=== PATIENT | male | born 1960 | race Two or more races ===

== ENCOUNTER 2021-05-13 12:01 | Emergency (ER) | payer OTHER, SELFPAY ==
--- NOTE | ~2021-05-13 | CT_ITS ---
EXAMINATION: CTA CHEST PE STUDY CLINICAL INFORMATION: SOB COMPARISON: 05/28/2020 PET/CT scan. TECHNIQUE: Prior to contrast administration, noncontrast localization images were obtained. After the administration of 56 mL of Omnipaque 350 IV contrast, contiguous thin slice helical images were obtained through the thorax. Reformatted MIP images in the coronal and sagittal planes were obtained at the acquisition workstation. This CT examination was performed using dose optimization techniques as appropriate, variously including the following: *Automated exposure control *Adjustment of mA and/or kV according to patient size (this includes techniques or standardized protocols for targeted exams where dose is matched to indication/reason for exam; i.e. extremities or head) *Use of iterative reconstruction technique DLP: 208 mGy-cm. FINDINGS: The bolus timing on this study was acceptable for visualization of the pulmonary arterial tree. There are no intraluminal pulmonary arterial filling defects present to suggest pulmonary embolism. Linear scarring and/or posterior mid changes in the lateral aspect of the left upper lobe similar to the prior PET/CT scan. There is a calcified granuloma in the lateral aspect of the left lower lobe. Chronic appearing additional changes superimposed on centrilobular emphysema otherwise noted bilaterally. No significant hilar or mediastinal adenopathy. There is no evidence of pleural effusion or pneumothorax. The heart is normal in size. No evidence of ventricular septal bowing or right heart strain. Great vessels are normal. Otherwise the mediastinum is unremarkable. There is no pericardial effusion or pericardial thickening. Limited evaluation of the upper abdominal viscera demonstrates low-attenuation probable cysts in the bilateral kidneys. CT/CT angio chest PE protocol IMPRESSION: No evidence for central pulmonary emboli. Chronic appearing changes in the lung parenchyma overall similar to the 05/28/2020 PET/CT scan. VTE: Negative
--- NOTE | ~2021-05-13 | XR_ITS ---
EXAMINATION: XR CHEST CLINICAL INFORMATION: SOB. COMPARISON: Chest x-ray performed earlier at 12:11 PM. TECHNIQUE: Frontal view of the chest was obtained. FINDINGS: The lungs are somewhat expanded with linear scarring or atelectasis right lung base and left upper lobe. No consolidation seen. There is bilateral There is blunting of right CP angle from pleural thickening. Heart size and pulmonary vascularity is normal. No gross bony abnormality seen. XR/XR chest 1V IMPRESSION: Chronic scarring left upper lobe and right lower lobe. There is mild blunting of right CP angle from pleural thickening. No change from previous studies 05/13/2021 at 12:31 PM. There is no interval consolidation seen.
--- NOTE | ~2021-05-13 | XR_ITS ---
EXAMINATION: XR CHEST CLINICAL INFORMATION: Shortness of breath COMPARISON: Previous chest x-ray May [address] January 2014 TECHNIQUE: Frontal view of the chest was obtained. FINDINGS: The cardiac and mediastinal contours are stable. The lungs are well inflated. There is biapical pleural thickening, right greater than left. This appears increased on the right compared to September 2014 exam. There are increased peripheral interstitial markings seen in the left peripheral upper lung overlying the scapula border at the right lateral costophrenic angle appears unchanged and might may represent chronic scarring. There is a 3 x 7 mm nodule at the left lung base that appears unchanged. There increased markings seen in the right infrahilar region questionable for infiltrate. The lungs are otherwise clear. There is blunting at the right lateral costophrenic angle and pleural thickening at the right lung base that appears unchanged. There is no significant pleural effusion. There is no pneumothorax. Bony structures are unremarkable. XR/XR chest 1V IMPRESSION: Well-inflated lungs. Biapical pleural thickening, increased on the right. New increased attenuation in the right infrahilar region questionable for infiltrate. Stable increased linear markings in the left lateral upper lung and right lateral costophrenic angle probably representing scarring and stable right pleural thickening.
[2021-05-13 12:07] VITALS: BP 167/111; PULSE 95; RESP 18; TEMP 36.8; O2SAT 94; BMI 20.3
[2021-05-13 12:56] LABS: COVID-19 Test Negative (Negative)
--- NOTE | 2021-05-13 13:21 | ECG_ITS ---
Test Reason : DIFFICULTY BREATHING Blood Pressure : / mmHG Vent. 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
--- NOTE | 2021-05-13 13:45 | PC.NURSE ---
pt alert and oriented. pt complaining of sob, he has history of COPD and is a daily smoker. Pt states he ran out of his albuterol updraft and rescue inhaler about 3 days ago and has been feeling sob since. pt states the sob is worse with exertion. he also c/o increased cough. no c/o nausea, vomiting, diarrhea. no c/o chest pain. Patient states that the shortness of breath is worse with exertion. He is also complaining of increased coughing, no vomiting or diarrhea. pt's b/p running 146/104, pulse 88, O2 98% r/a. No respiratory distress/difficulty breathing noted. will continue to monitor.
--- NOTE | 2021-05-13 13:46 | ED_ITS ---
HPI - SOB/Dyspnea General Chief Complaint: Dyspnea Stated Complaint: difficulty breathing - hx copd Time Seen by Provider: 05/13/21 13:20 Source: patient Mode of arrival: ambulatory Limitations: no limitations History of Present Illness HPI Narrative: Patient comes emergency room complaining of shortness of breath. Patient states that he is known to have COPD, still smokes, not oxygen dependent. Patient ran out of his inhalers approximately 3 days ago. Patient denies chest pain. Patient states that the shortness of breath is worse with exertion. Patient complaining of increased coughing, no vomiting or diarrhea. Related Data Previous Rx's Medication Instructions Recorded albuterol sulfate 90 mcg/actuation 2 puff INHALATION Q4-6H PRN #6.7 g 05/13/21 aerosol inhaler budesonide-formoterol HFA 80 2 puff INHALATION BID #10.2 g 05/13/21 mcg-4.5 mcg/actuation aerosol inhaler (Symbicort) Allergies Allergy/AdvReac Type Severity Reaction Status Date / Time No Known Allergies Allergy Verified 05/13/21 12:07 [No Known Allergies*] Review of Systems Review of Systems: Constitutional : No Weight loss, No Fever, No Chills, No Night Sweats, No Fatigue, No Malaise ENT/Mouth : No Hearing loss, No Ear Pain, No Nasal Congestion, No Sinus Pain, No Hoarseness, No sore throat, No Rhinorrhea, No Swallowing Difficulty Eyes: No Eye Pain, No Swelling, No Redness, No Foreign Body, No Discharge, No Vision Changes Cardiovascular : No Chest Pain, complaining of exertional dyspnea, no orthopnea, no palpitations, no lower extremity edema Respiratory : Complaining of worsening cough, No Sputum, No Wheezing, comp laining of dyspnea worse with exertion Gastrointestinal : No Nausea, No Vomiting, No Diarrhea, No Constipation, No abdominal Pain, No Hematochezia, No Melena Genitourinary : no irregular bleeding, No Dysuria, No Urinary Frequency, No Hematuria, No Urinary Incontinence, No Urgency, No Flank Pain, No Urinary Flow Changes, No Hesitancy Musculoskeletal : No joint pain, No Myalgias, No Joint Swelling Skin : No Skin Lesions, No rash Neuro : No Weakness, No Numbness, No Paresthesias, No Loss of Consciousness, No Dizziness, No Headache Psych : No Anxiety/Panic, No Depression, No SI/HI/AH/VH, No Social Issues, Heme/Lymph: No Bruising, No Bleeding,No Lymphadenopathy Endocrine : No Polyuria, No Polydipsia, No Temperature Intolerance [facility] Past Medical History Medical History COPD (chronic obstructive pulmonary disease) Hepatitis C HIV disease Social History Social History Advance Directives: No Physical Exam Vital Signs: Vital Signs: Last Vital Signs Temp 98.1 F 05/13/21 16:43 Pulse 91 05/13/21 16:43 Resp 19 05/13/21 16:43 BP 163/109 H 05/13/21 16:43 Pulse Ox 97 05/13/21 16:43 Body Mass Index 20.3 Const: Other: Appearance: Alert. Oriented X3. No acute distress. Eyes: Pupils equal, round and reactive to light. ENT: Pharynx normal. Neck: Normal inspection. Neck supple. No lymph nodes noted. No crepitus CVS: Normal heart rate and rhythm. Pulses normal. Normal S1 and S2 Respiratory: No respiratory distress. Decreased air movement bilaterally, No Wheezing. No rales Abdomen: Soft and nontender. No rigidity. No distention. good BS x4 Skin: Skin warm and dry. Normal skin color. Normal skin turgor. Extremities: No lower extremity edema. No Lacerations. No Rash Neuro: Oriented X 3. No motor deficit. No sensory deficit. Moving all extermities. No slurred speech. Course Course Course Narrative: Patient's chest x-ray does not show significant edema, BNP is elevated, it may be chronic. Patient was ambulated in the emergency room, oxygen saturation remained at 97%. Prior to discharge, patient was concerned that whenever he walks up the stairs he feels short of breath. At this time, we will go ahead and do a CT for PE, if negative, patient will likely be discharged home. At this time, patient is not wheezing, has good air movement, oxygen saturation 97% on room air at rest as well per. CT a pending, sign-out given to Dr. Ford. If negative, patient likely to be discharged home. MDM - SOB/Dyspnea Lab Data Result diagrams: 05/13/21 14:03 05/13/21 14:03 Labs: Lab Results 05/13/21 05/13/21 05/13/21 Range/Units 12:17 14:03 14:03 WBC 5.8 (4.8-10.8) X10*3/uL RBC 5.09 (4.60-5.80) X10*6/uL Hgb 11.7 L (14.0-18.0) g/dl Hct 36.5 L (42-52) % MCV 71.7 L (80-98) fL MCH 23.0 L (27.0-33.0) pg MCHC 32.1 (31.0-36.0) g/dl RDW 15.9 (11.0-16.0) % Plt Count 173 (160-400) X10*3/uL MPV 9.2 L (9.4-12.4) fL Immature Gran % (Auto) 0.3 (0.0-0.4) % Neut % (Auto) 76.3 H (45-73) % Lymph % (Auto) 13.2 L (20-40) % [place] % (Auto) 8.9 (2-11) % Eos % (Auto) 1.0 (0-4) % Baso % (Auto) 0.3 (0-2) % Lymph # (Auto) 0.8 L (1.2-4.9) X10*3/uL [place] # (Auto) 0.5 (0.1-1.2) X10*3/uL Eos # (Auto) 0.1 (0.0-0.4) X10*3/uL Baso # (Auto) 0.0 (0.0-0.2) X10*3/uL Abs Immat Gran (auto) 0.02 (0.00-0.03) X10*3/uL Absolute Neuts (auto) 4.4 (2.0-8.3) X10*3/uL Absolute Nucleated RBC 0.020 H (0.0-0.012) X10*3/uL Nucleated RBC % (auto) 0.3 H (0.0-0.2) /100WBC Sodium 134 L (135-145) mmol/L Potassium 5.5 H (3.3-5.1) mmol/L Chloride 100 (96-108) mmol/L Carbon Dioxide 24 (22-29) mmol/L Anion Gap 16 (12-20) BUN 21 H (9-16) mg/dL Creatinine 1.24 (0.5-1.4) mg/dL Estim Creat Clear Calc 53.7 Estimated GFR 59 Random Glucose 132 H (60-115) mg/dL Lactic Acid (0.5-2.0) mmol/L Calcium 9.7 (8.4-10.2) mg/dL Total Bilirubin 0.7 (0.0-1.0) mg/dL AST 45 H (5-37) U/L ALT 31 (0-40) U/L Alkaline Phosphatase 96 (39-117) U/L Troponin I High Sens (<3.5-35.0) ng/L B-Natriuretic Peptide (<100) pg/mL Total Protein 9.4 H (6.5-8.0) g/dL Albumin 4.2 (3.5-5.0) g/dL COVID-19 (TESHA) Negative (Negative) COVID-19 Clin Com See Note 05/13/21 05/13/21 Range/Units 14:03 14:03 WBC (4.8-10.8) X10*3/uL RBC (4.60-5.80) X10*6/uL Hgb (14.0-18.0) g/dl Hct (42-52) % MCV (80-98) fL MCH (27.0-33.0) pg MCHC (31.0-36.0) g/dl RDW (11.0-16.0) % Plt Count (160-400) X10*3/uL MPV (9.4-12.4) fL Immature Gran % (Auto) (0.0-0.4) % Neut % (Auto) (45-73) % Lymph % (Auto) (20-40) % [place] % (Auto) (2-11) % Eos % (Auto) (0-4) % Baso % (Auto) (0-2) % Lymph # (Auto) (1.2-4.9) X10*3/uL [place] # (Auto) (0.1-1.2) X10*3/uL Eos # (Auto) (0.0-0.4) X10*3/uL Baso # (Auto) (0.0-0.2) X10*3/uL Abs Immat Gran (auto) (0.00-0.03) X10*3/uL Absolute Neuts (auto) (2.0-8.3) X10*3/uL Absolute Nucleated RBC (0.0-0.012) X10*3/uL Nucleated RBC % (auto) (0.0-0.2) /100WBC Sodium (135-145) mmol/L Potassium (3.3-5.1) mmol/L Chloride (96-108) mmol/L Carbon Dioxide (22-29) mmol/L Anion Gap (12-20) BUN (9-16) mg/dL Creatinine (0.5-1.4) mg/dL Estim Creat Clear Calc Estimated GFR Random Glucose (60-115) mg/dL Lactic Acid 1.2 (0.5-2.0) mmol/L Calcium (8.4-10.2) mg/dL Total Bilirubin (0.0-1.0) mg/dL AST (5-37) U/L ALT (0-40) U/L Alkaline Phosphatase (39-117) U/L Troponin I High Sens 41.8 H* (<3.5-35.0) ng/L B-Natriuretic Peptide 633 H (<100) pg/mL Total Protein (6.5-8.0) g/dL Albumin (3.5-5.0) g/dL COVID-19 (TESHA) (Negative) COVID-19 Clin Com Discharge Plan Discharge Clinical Impression: Acute dyspnea Patient Disposition: Home, Self-Care Instructions: Dyspnea (ED) Additional Instructions: Please follow-up with your primary care physician tomorrow. If you have any worsening or new symptoms, please return to the emergency room or call 911 Prescriptions: New albuterol sulfate 90 mcg/actuation HFA aerosol inhaler 2 puff inhalation Q4-6H PRN (Reason: shortness of breath or wheezing) Qty: 6.7 RF: 1 budesonide-formoterol [Symbicort] 80-4.5 mcg/actuation HFA aerosol inhaler 2 puff inhalation BID Qty: 10.2 RF: 0
[2021-05-13 14:09] LABS: MANUAL DIFF FLAG NO
[2021-05-13 14:10] VITALS: BP 160/111; PULSE 84; RESP 20; O2SAT 97
[2021-05-13 14:11] LABS: Basophils Percent Auto 0.3 % (0-2); Eosinophils Absolute Auto 0.1 X10*3/uL (0.0-0.4); Hematocrit 36.5 % (42-52); Hemoglobin 11.7 g/dl (14.0-18.0); Imm Gran Abs Auto 0.02 X10*3/uL (0.00-0.03); Imm Gran Pct Auto 0.3 % (0.0-0.4); Lymphocytes Absolute Auto 0.8 X10*3/uL (1.2-4.9); Lymphocytes Percent Auto 13.2 % (20-40); Mean Corpuscular HGB Conc 32.1 g/dl (31.0-36.0); Mean Corpuscular Volume 71.7 fL (80-98); Mean Platelet Volume 9.2 fL (9.4-12.4); Monocytes Absolute Auto 0.5 X10*3/uL (0.1-1.2); Monocytes Percent Auto 8.9 % (2-11); NRBC Pct Auto 0.3 /100WBC (0.0-0.2); Neutrophils Absolute Auto 4.4 X10*3/uL (2.0-8.3); Neutrophils Percent Auto 76.3 % (45-73); Platelet Count 173 X10*3/uL (160-400); Red Blood Count 5.09 X10*6/uL (4.60-5.80); Red Cell Distribution Width 15.9 % (11.0-16.0); White Blood Count 5.8 X10*3/uL (4.8-10.8)
[2021-05-13] MEDS: methylPREDNISolone Sod Succ 125 MG/2 ML VIAL IVPUSH (14:12)
[2021-05-13 14:24] LABS: Lactic Acid 1.2 mmol/L (0.5-2.0)
[2021-05-13 14:28] LABS: Alanine Aminotransferase 31 U/L (0-40); Albumin Level 4.2 g/dL (3.5-5.0); Alkaline Phosphatase 96 U/L (39-117); Anion Gap 16 (12-20); Aspartate Amino Transferase 45 U/L (5-37); Bilirubin Total 0.7 mg/dL (0.0-1.0); Blood Urea Nitrogen 21 mg/dL (9-16); Calcium 9.7 mg/dL (8.4-10.2); Carbon Dioxide 24 mmol/L (22-29); Chloride 100 mmol/L (96-108); Creatinine Clr Calc Pharmacy 53.7; Estimated Glomerular Filt Rate 59; Glucose Random 132 mg/dL (60-115); Potassium 5.5 mmol/L (3.3-5.1); Sodium 134 mmol/L (135-145); Total Protein 9.4 g/dL (6.5-8.0)
[2021-05-13 14:39] LABS: B Type Natriuretic Peptide 633 pg/mL (<100); Troponin-I High Sensitivity 41.8 ng/L (<3.5-35.0)
[2021-05-13] MEDS: Albuterol/Iprat 2.5/0.5MG 3 ML AMPUL.NEB INHALE (15:10)
[2021-05-13 15:11] VITALS: PULSE 84; O2SAT 99
--- NOTE | 2021-05-13 15:30 | PC.NURSE ---
pt medicated as documented, breathing tx done by respiratory therapist. O2 sat 97-98% r/a. Pt ambulated to restroom, no c/o of sob after ambulating. He denies dizziness/headache. b/p running 140s over 104-106. pt requesting something to eat, he was given sandwich and nikki adelso. no c/o.
[2021-05-13 16:43] VITALS: BP 163/109; PULSE 91; RESP 19; TEMP 36.7; O2SAT 97
[2021-05-13] MEDS: iohexoL 350 MG/ML 100 ML INFUS..BTL 56 ML IV (17:28)
--- NOTE | 2021-05-13 17:45 | PC.NURSE ---
Pt to ct scan, this lead technical writer alerted by radiologist that the pt's IV infiltrated during his procedure. The back of the pt's right arm swollen and red, pt reports pain level 5/10 to his right arm. This lead technical writer removed iv, arm elevated, ice-claudio applied. B/p58/108, pulse 88, O2 sat 98% r/a, resp. 15. No c/o sob/headache/dizziness/chest pain. No c/o. Pt resting quietly, no distress noted.
[2021-05-13 17:52] VITALS: BP 158/108; PULSE 88; RESP 15; O2SAT 98
== END 2021-05-13 19:06 | disposition home or self-care (01) ==
PROVIDERS: Emergency Provider Emergency Medicine; PCP Internal Medicine
DX: R06.02 Shortness of breath (principal); J44.9 Chronic obstructive pulmonary disease, unspecified; F17.210 Nicotine dependence, cigarettes, uncomplicated; Z20.822 Contact with and (suspected) exposure to COVID-19; Z71.6 Tobacco abuse counseling
CPT/HCPCS: 36415; 71045; 71275; 80053; 83605; 83880; 84484; 85025; 87040; 87635; 93005; 94640; 96374; 99284; J2930; Q9967

== ENCOUNTER → 2022-03-03 15:08 | Outpatient (BNVA) | payer OTHER, SELFPAY | PROVIDERS: PCP Internal Medicine; Visit Provider Hospitalist | DX: J44.9 Chronic obstructive pulmonary disease, unspecified (principal); R91.8 Other nonspecific abnormal finding of lung field | CPT/HCPCS: 99202 ==

== ENCOUNTER 2022-03-24 11:04 | Outpatient (REF) | payer OTHER, SELFPAY ==
--- NOTE | ~2022-03-24 | CT_ITS ---
EXAMINATION: CT CHEST WITHOUT CONTRAST CLINICAL INFORMATION: Pulmonary nodules COMPARISON: CTA chest 05/13/[address] PET exam 05/28/2020 TECHNIQUE: Multidetector volumetric CT imaging of the chest was done. Axial MIP volume rendering provided. Sagittal and coronal reformatted images were obtained. This CT examination was performed using dose optimization techniques as appropriate, variously including the following: *Automated exposure control *Adjustment of mA and/or kV according to patient size (this includes techniques or standardized protocols for targeted exams where dose is matched to indication/reason for exam; i.e. extremities or head) *Use of iterative reconstruction technique DLP: 137 mGy-cm FINDINGS: BUILDING COORDINATOR: Hyperinflated lungs. LUNGS: There is bilateral apical pleural thickening and apical scarring. Again visualized is an irregular opacity left upper lobe abutting the lateral pleura in left upper lobe and measures 2.6 cm in maximum length. There is a pleural-based right upper lobe nodule axial image 19/4, axial image 21/4 and several additional small micronodules in both upper lobes and both lower lobes which are essentially stable. Linear subpleural density right upper lobe anteriorly image 276/8 is likely focal scarring and stable. I see no new pulmonary nodules, mass or consolidation. There is diffuse centrilobular emphysema. MEDIASTINUM: The thyroid lobes are symmetric and normal. The central trachea and bronchi are widely patent. Heart size and the great vessels are normal caliber. There are small shotty lymph nodes. No pericardial effusion. No abnormal size mediastinal or hilar lymphadenopathy seen. PLEURA: There is bilateral apical pleural scarring. AXILLA: No lymphadenopathy. UPPER ABDOMEN: Visualized liver, spleen, pancreas and bilateral adrenal glands appear unremarkable. OSSEOUS STRUCTURES: No aggressive lytic or sclerotic process. CT/CT chest wo con IMPRESSION: 1. Diffuse emphysema with small micronodules and bilateral apical pleural thickening and parenchymal scarring. In addition the largest pleural-based left upper lobe lesion with thick stranding is stable measuring 2.6 cm. The other findings are stable as well. 2. No new pulmonary nodule or consolidation. No abnormal lymphadenopathy. Recommend continued yearly follow-up. Fleischner guidelines were followed.
== END 2022-03-24 11:05 | disposition home or self-care (01) ==
LOC: HO.CT 11:04
PROVIDERS: PCP Internal Medicine; Visit Provider Hospitalist
DX: R91.8 Other nonspecific abnormal finding of lung field (principal)
CPT/HCPCS: 71250

== ENCOUNTER 2022-03-31 13:56 | Outpatient (REF) | payer OTHER, SELFPAY ==
--- NOTE | 2022-03-31 | PFT_ITS ---
Forced vital capacity 83%, FEV1 42%, FEV1/FVC ratio is 39, [id number] 14% and MVV 33%. Post bronchodilator therapy, there was a significant improvement in FEV1, [id number]. Total lung capacity 76%. Residual volume 70%. Diffusion capacity 44%. CONCLUSION: 1. Mild restrictive pulmonary disorder. 2. Severe obstructive airway disorder with partial reversibility after bronchodilator therapy. These findings are consistent with asthma/COPD overlap syndrome. Clinical correlation recommended. Ya Jernigan MD [facility] / [id number]
== END 2022-03-31 13:57 | disposition home or self-care (01) ==
LOC: HO.RESP 13:56
PROVIDERS: PCP Internal Medicine; Visit Provider Hospitalist
DX: Z13.89 Encounter for screening for other disorder (principal)
CPT/HCPCS: 94060; 94727; 94729

== ENCOUNTER → 2022-04-24 20:04 | Outpatient (REF) | payer OTHER, SELFPAY | LOC: HO.SL 20:04 | PROVIDERS: PCP Internal Medicine; Visit Provider Hospitalist | DX: R91.8 Other nonspecific abnormal finding of lung field (principal) | CPT/HCPCS: 95810; 99212 ==

== ENCOUNTER → 2022-08-14 14:53 | Outpatient (BNVA) | payer OTHER, SELFPAY | PROVIDERS: PCP Internal Medicine; Visit Provider Hospitalist | DX: J44.9 Chronic obstructive pulmonary disease, unspecified (principal); B19.20 Unspecified viral hepatitis C without hepatic coma; B20 Human immunodeficiency virus [HIV] disease; G47.33 Obstructive sleep apnea (adult) (pediatric); R40.0 Somnolence; R91.8 Other nonspecific abnormal finding of lung field; F17.210 Nicotine dependence, cigarettes, uncomplicated | CPT/HCPCS: 94618; 99212 ==

== ENCOUNTER → 2022-10-30 14:34 | Outpatient (BNVA) | payer OTHER, SELFPAY | PROVIDERS: PCP Internal Medicine; Visit Provider Hospitalist | DX: J44.9 Chronic obstructive pulmonary disease, unspecified (principal); R91.8 Other nonspecific abnormal finding of lung field; G47.33 Obstructive sleep apnea (adult) (pediatric) | CPT/HCPCS: 99212 ==

== ENCOUNTER → 2022-11-13 14:47 | Outpatient (BNVA) | payer OTHER, SELFPAY | PROVIDERS: PCP Internal Medicine; Visit Provider Hospitalist | DX: J44.9 Chronic obstructive pulmonary disease, unspecified (principal); R91.8 Other nonspecific abnormal finding of lung field; G47.33 Obstructive sleep apnea (adult) (pediatric) | CPT/HCPCS: 99212 ==

== ENCOUNTER 2023-04-28 13:14 | Outpatient (REF) | payer OTHER, SELFPAY ==
--- NOTE | ~2023-04-28 | CT_ITS ---
EXAMINATION: CT CHEST WITHOUT CONTRAST CLINICAL INFORMATION: Abnormal findings of lung field COMPARISON: 03/24/2022 TECHNIQUE: Multidetector volumetric CT imaging of the chest was done. Axial MIP volume rendering provided. Sagittal and coronal reformatted images were obtained. This CT examination was performed using dose optimization techniques as appropriate, variously including the following: *Automated exposure control *Adjustment of mA and/or kV according to patient size (this includes techniques or standardized protocols for targeted exams where dose is matched to indication/reason for exam; i.e. extremities or head) *Use of iterative reconstruction technique DLP: 120 mGy-cm FINDINGS: HAND SOLE SEWER: Hyperinflation. LUNGS: Trachea is remains enlarged at the thoracic inlet. Trachea and bronchi are patent. Centrilobular emphysema and hyperinflation again seen. Stable biapical pleural thickening, right greater than left. Several centimeter irregular opacity extending to the pleural surface again identified. Previous solid component is decreasing. Chronic scarring/atelectasis right middle and right lower lobes. No change micronodules and 6 mm left lower lobe granuloma. MEDIASTINUM: Unremarkable thyroid. No pathologic lymphadenopathy. Nonenlarged heart. No pericardial effusion. Nonenlarged pulmonary arteries. Nonaneurysmal aorta. CORONARY ARTERY CALCIFICATION: Mild. PLEURA: There is no pleural effusion. No pleural mass or thickening. AXILLA: No lymphadenopathy. UPPER ABDOMEN: Unremarkable. OSSEOUS STRUCTURES: No suspicious osseous lesions. CT/CT chest wo IV con IMPRESSION: Stable chest including emphysema, bilateral apical pleural thickening, parenchymal scarring and left lower lobe granuloma. Solid component left upper lobe irregular opacity decreasing from previous studies.
== END 2023-04-28 13:15 | disposition home or self-care (01) ==
LOC: HO.CT 13:14
PROVIDERS: PCP Internal Medicine; Visit Provider Hospitalist
DX: R91.8 Other nonspecific abnormal finding of lung field (principal)
CPT/HCPCS: 71250

== ENCOUNTER 2023-04-30 12:51 | Outpatient (AMB) | payer OTHER, SELFPAY ==
--- NOTE | 2023-04-30 13:03 | MHC.OFFVIS ---
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 he also is being evaluated for abnormal CT scan with multiple nodular densities which are concerning in appearance. Back in 2019 the patient did undergo a CT scan demonstrating the abnormalities and sometime after that he did undergo a PET scan demonstrating mild FDG activity suggesting infectious versus inflammatory but cannot rule out a smoldering malignant process. Therefore he had a repeat CT scan in October 2020 demonstrating persistent nodular densities and emphysema. More recent the patient was having worsening shortness of breath. His shortness of breath is very significant to the point that if he needs to go to the bathroom he does not have time to make it. Therefore he has been very incontinence of both urine and stool. During his last trip to the beach apparently the patient developed significant shortness of breath and apparently does not remember what happened after that. He was taken to local hospital where he was intubated with respiratory failure. He was also told he had an infection. The patient does not have the records with him. Will requesting from hospital where he was that. After he was treated for the infection and was situated on his respiratory medications he was discharged. Overall he is starting to feel better. Although he still has this significant episodes of shortness of breath. Denies any fevers or chills at this time. the patient is not currently on any maintenance therapy. Therefore will going to optimize his respiratory therapy and also follow-up with his pulmonary nodular densities and also his lung capacity. 04/24/2022 the patient is here for a pulmonary follow-up visit. He continues to have shortness of breath and cough. He has been working on cutting down smoking. He is down to about 2-3 cigarettes a day. This is much improved from before so therefore he is very complex at this time. He understands he needs to continue will forward and complete cessation of smoking. He had a good response to the Trelegy. Also not covered afterwards. Therefore the patient needs to go back on his maintenance therapy which includes Symbicort Spiriva. This will be gets is effective for him. We did review his recent CT scan of the chest done March 2022 which demonstrated stable will wear nodules and pulmonary densities. The patient does have extensive emphysema as well. Will plan to monitor the findings with serial CT scans. 08/14/2022 the patient is here for a pulmonary follow-up visit. He continues to complain of significant daytime drowsiness. His [place] score is elevated 14/24. He did have a sleep study which we personally reviewed. It appears that he does have severe sleep apnea. He was then titrated on PAP therapy and he did respond better to BiPAP. Therefore I will request a BiPAP machine for him to sleep with from a local [employer] company. The patient is agreeable to this at this time. He continues with his respiratory therapy. It appears to be working better than before. He is also starting a therapy for his viral hepatitis which has resulted in significant adverse effects. But he is hopefully completing it soon. For during the visit we did have him do a walking oximetry due to the fact that he has dyspnea on exertion. However, the patient did not need oxygen supplementation with activity which is reassuring. 10/30/2022 The patient is here for a pulmonary follow up visit. He did get the BIPAP. However, he is still not used to it. He has not been using regularly. We did talk about the imprortance of using it and ideally more than 4 hours. He will attempt it again. he is aware that the PAP maybe taken away if he does not use it. He continues with his respiratory medications with a good response. he id also doing well with smoking cessation. We will follow up in april [address] chest. 04/30/2023 the patient is here for a pulmonary follow-up visit. The patient recently was hospitalized back go with some RO at [facility]. Apparently he was found unresponsive with acute on chronic respiratory failure. He was intubated admitted to the ICU briefly. He was subsequently extubated. His respiratory viral panel was positive for enterovirus. She was treated extubated and subsequently discharged. Now he is using his respiratory therapy. He was feeling very short of breath with minimal activity but he is getting slowly better. Still gets shortness of breath with going up a flight of stairs or a incline. Moderate severity. We did taken for 6 minute walk test the patient did desaturate some but did not qualify for oxygen. The patient did have a CT scan of the chest air. I also reviewed the CT scan that he had here just a week ago and also had a CT scan back a year ago. It appears that the nodular changes have been stable. He has a larger area on the right upper lobe that were following closely but does not appear to have changed significantly. The CT scan just that has not been officially been read so will wait for the final report. But clinically doing well although he is deconditioned. Will request pulmonary function studies and will get him involved in pulmonary rehabilitation at this time. [facility] Medical History (Updated 04/30/23 @ 13:08 by Jorge Brooks MD) TERRY (obstructive sleep apnea) Pulmonary nodules Hepatitis C HIV disease COPD (chronic obstructive pulmonary disease) Social History (Updated 03/03/22 @ 15:20 by DANIELA Humphries) Patient Tobacco Use Status: Current everyday Tobacco user Tobacco use type: Cigarette Cigarette Packs Per Day: 1 Cigarettes Per Day: 4 Years Smoked: 30 Years Review of Systems Const Reports daytime sleepiness, Reports difficulty sleeping, Reports fatigue and Denies fever(s) Eyes Denies change in vision ENT Denies change in voice Card Denies chest pain and Reports dyspnea on exertion Resp Reports cough, Reports dyspnea on exertion and Denies wheezing GI Reports as per HPI Musc Reports no additional complaints Skin/Breast Denies rash Endo Reports fatigue Aller/Immun Denies wheezing Physical Exam Vital Signs: Last Vital Signs Pulse 66 04/30/23 13:04 Pulse Ox 94 04/30/23 13:04 Oxygen Delivery Method Room Air 04/30/23 13:04 BMI result Body Mass Index 22.8 Const General: healthy appearing and comfortable HEENT Head: Yes normal to inspection Eyes General: appearance normal, both eyes and all related structures Neck Neck: Yes normal visual inspection, Yes full ROM and Yes supple Chest Chest palpation & inspection: normal inspection of the chest Resp Auscultation: diminished lung sounds Cardio Rate: regular rate Rhythm: regular rhythm Heart sounds: S1 normal heart sound present and S2 normal heart sound present GI Inspection: Yes normal to inspection Skin General skin exam: no rashes or lesions noted Extrem General: No cyanosis and No edema Assessment & Plan Assessment & Plan (1) COPD (chronic obstructive pulmonary disease): Code(s): J44.9 - Chronic obstructive pulmonary disease, unspecified Qualifiers: COPD type: chronic bronchitis Chronic bronchitis type: simple Qualified Code(s): J41.0 - Simple chronic bronchitis (2) Pulmonary nodules: Code(s): R91.8 - Other nonspecific abnormal finding of lung field (3) TERRY (obstructive sleep apnea): Comment: severe Code(s): G47.33 - Obstructive sleep apnea (adult) (pediatric) Plan continue Symbicort and Spiriva short-acting beta agonist as needed continue PAP therapy at night PFTs Start Pulmonary rehab Follow-up in 6 months Orders: Orders PFT pulmonary function test 04/30/23 J44.9 - Chronic obstructive pulmonary disease, unspecified Pulmonary Rehab 04/30/23 J44.9 - Chronic obstructive pulmonary disease, unspecified Coding Level of Care Code Est Pt Level 4 (72382) Diagnoses Simple chronic bronchitis J41.0 COPD type: chronic bronchitis Chronic bronchitis type: simple Pulmonary nodules R91.8 TERRY (obstructive sleep apnea) G47.33 Time Spent (min) 18
[2023-04-30 13:04] VITALS: PULSE 66; O2SAT 94; BMI 22.8
== END 2023-04-30 13:32 | disposition home or self-care (01) ==
PROVIDERS: PCP Internal Medicine; Visit Provider Hospitalist
DX: J41.0 Simple chronic bronchitis (principal); R91.8 Other nonspecific abnormal finding of lung field; G47.33 Obstructive sleep apnea (adult) (pediatric)
CPT/HCPCS: 99214

== ENCOUNTER → 2023-04-30 12:51 | Outpatient (BNVA) | payer OTHER, SELFPAY | PROVIDERS: PCP Internal Medicine; Visit Provider Hospitalist | DX: J41.0 Simple chronic bronchitis (principal); R91.8 Other nonspecific abnormal finding of lung field; G47.33 Obstructive sleep apnea (adult) (pediatric); Z79.899 Other long term (current) drug therapy | CPT/HCPCS: 99212 ==

== ENCOUNTER 2023-06-24 14:31 | Outpatient (AMB) | payer OTHER, SELFPAY ==
--- NOTE | 2023-06-24 14:48 | MHC.OFFVIS ---
Intake Vital Signs 06/24/23 14:49 Height 5 ft 8 in Weight 147 lb BMI 22.3 Pulse 72 Pulse Source Pulse Oximeter Pulse Oximetry (%) 95 Oxygen Delivery Method Room Air Intake Visit Reasons: copd Treasury Consultant Required: No Allergies No Known Allergies [No Known Allergies*] Allergy (Verified 06/24/23 14:50) HPI HPI Comments History of Present Illness Details The patient is a 62-year-old gentleman with known hepatitis-C, HIV and COPD. he also is being evaluated for abnormal CT scan with multiple nodular densities which are concerning in appearance. Back in 2019 the patient did undergo a CT scan demonstrating the abnormalities and sometime after that he did undergo a PET scan demonstrating mild FDG activity suggesting infectious versus inflammatory but cannot rule out a smoldering malignant process. Therefore he had a repeat CT scan in October 2020 demonstrating persistent nodular densities and emphysema. More recent the patient was having worsening shortness of breath. His shortness of breath is very significant to the point that if he needs to go to the bathroom he does not have time to make it. Therefore he has been very incontinence of both urine and stool. During his last trip to the beach apparently the patient developed significant shortness of breath and apparently does not remember what happened after that. He was taken to local hospital where he was intubated with respiratory failure. He was also told he had an infection. The patient does not have the records with him. Will requesting from hospital where he was that. After he was treated for the infection and was situated on his respiratory medications he was discharged. Overall he is starting to feel better. Although he still has this significant episodes of shortness of breath. Denies any fevers or chills at this time. the patient is not currently on any maintenance therapy. Therefore will going to optimize his respiratory therapy and also follow-up with his pulmonary nodular densities and also his lung capacity. 04/24/2022 the patient is here for a pulmonary follow-up visit. He continues to have shortness of breath and cough. He has been working on cutting down smoking. He is down to about 2-3 cigarettes a day. This is much improved from before so therefore he is very complex at this time. He understands he needs to continue will forward and complete cessation of smoking. He had a good response to the Trelegy. Also not covered afterwards. Therefore the patient needs to go back on his maintenance therapy which includes Symbicort Spiriva. This will be gets is effective for him. We did review his recent CT scan of the chest done March 2022 which demonstrated stable will wear nodules and pulmonary densities. The patient does have extensive emphysema as well. Will plan to monitor the findings with serial CT scans. 08/14/2022 the patient is here for a pulmonary follow-up visit. He continues to complain of significant daytime drowsiness. His [place] score is elevated 14/24. He did have a sleep study which we personally reviewed. It appears that he does have severe sleep apnea. He was then titrated on PAP therapy and he did respond better to BiPAP. Therefore I will request a BiPAP machine for him to sleep with from a local [employer] company. The patient is agreeable to this at this time. He continues with his respiratory therapy. It appears to be working better than before. He is also starting a therapy for his viral hepatitis which has resulted in significant adverse effects. But he is hopefully completing it soon. For during the visit we did have him do a walking oximetry due to the fact that he has dyspnea on exertion. However, the patient did not need oxygen supplementation with activity which is reassuring. 10/30/2022 The patient is here for a pulmonary follow up visit. He did get the BIPAP. However, he is still not used to it. He has not been using regularly. We did talk about the imprortance of using it and ideally more than 4 hours. He will attempt it again. he is aware that the PAP maybe taken away if he does not use it. He continues with his respiratory medications with a good response. he id also doing well with smoking cessation. We will follow up in april [address] chest. 04/30/2023 the patient is here for a pulmonary follow-up visit. The patient recently was hospitalized back go with some RO at [facility]. Apparently he was found unresponsive with acute on chronic respiratory failure. He was intubated admitted to the ICU briefly. He was subsequently extubated. His respiratory viral panel was positive for enterovirus. She was treated extubated and subsequently discharged. Now he is using his respiratory therapy. He was feeling very short of breath with minimal activity but he is getting slowly better. Still gets shortness of breath with going up a flight of stairs or a incline. Moderate severity. We did taken for 6 minute walk test the patient did desaturate some but did not qualify for oxygen. The patient did have a CT scan of the chest air. I also reviewed the CT scan that he had here just a week ago and also had a CT scan back a year ago. It appears that the nodular changes have been stable. He has a larger area on the right upper lobe that were following closely but does not appear to have changed significantly. The CT scan just that has not been officially been read so will wait for the final report. But clinically doing well although he is deconditioned. Will request pulmonary function studies and will get him involved in pulmonary rehabilitation at this time. 06/24/2023 the patient is here for pulmonary follow-up visit. The patient is feeling better overall. We did review his CT scan of the chest demonstrating interval stability of the pulmonary nodules. The patient does have extensive emphysema. will go ahead and repeat his CT scan in a year's time. The patient also has his positive airway pressure therapy. He states that he is using it regularly. Although they reports states that he is not using it as much as he should. I did encourage him to use it at least 4 hours a night. He is going to start using it as such. The mask fitting as well. The patient does feel better when he uses it. He does continue to use his respiratory therapy with good effect. No further changes at this time. Will follow-up in 6-8 months. [facility] Medical History (Updated 04/30/23 @ 13:08 by Jorge Brooks MD) TERRY (obstructive sleep apnea) Pulmonary nodules Hepatitis C HIV disease COPD (chronic obstructive pulmonary disease) Social History (Updated 03/03/22 @ 15:20 by DANIELA Humphries) Patient Tobacco Use Status: Current everyday Tobacco user Tobacco use type: Cigarette Cigarette Packs Per Day: 1 Cigarettes Per Day: 4 Years Smoked: 30 Years Review of Systems Const Reports difficulty sleeping and Denies fever(s) Eyes Denies change in vision ENT Denies change in voice Card Denies chest pain and Reports dyspnea on exertion Resp Reports cough, Reports dyspnea on exertion and Denies wheezing GI Reports as per HPI Musc Reports no additional complaints Skin/Breast Denies rash Aller/Immun Denies wheezing Physical Exam Vital Signs: Last Vital Signs Pulse 72 06/24/23 14:49 Pulse Ox 95 06/24/23 14:49 Oxygen Delivery Method Room Air 06/24/23 14:49 BMI result Body Mass Index 22.3 Const General: healthy appearing and comfortable HEENT Head: Yes normal to inspection Eyes General: appearance normal, both eyes and all related structures Neck Neck: Yes normal visual inspection, Yes full ROM and Yes supple Chest Chest palpation & inspection: normal inspection of the chest Resp Auscultation: diminished lung sounds Cardio Rate: regular rate Rhythm: regular rhythm Heart sounds: S1 normal heart sound present and S2 normal heart sound present GI Inspection: Yes normal to inspection Skin General skin exam: no rashes or lesions noted Extrem General: No cyanosis and No edema Assessment & Plan Assessment & Plan (1) COPD (chronic obstructive pulmonary disease): Code(s): J44.9 - Chronic obstructive pulmonary disease, unspecified Qualifiers: COPD type: chronic bronchitis Chronic bronchitis type: simple Qualified Code(s): J41.0 - Simple chronic bronchitis (2) Pulmonary nodules: Code(s): R91.8 - Other nonspecific abnormal finding of lung field (3) TERRY (obstructive sleep apnea): Comment: severe Code(s): G47.33 - Obstructive sleep apnea (adult) (pediatric) Plan continue Symbicort and Spiriva short-acting beta agonist as needed continue PAP therapy at night, needs to use it >4 hours/night Start Pulmonary rehab CT Chest 06/2024 Follow-up in 6-8 months Orders: Orders Pulmonary Rehab Today J44.9 - Chronic obstructive pulmonary disease, unspecified CT chest wo IV con 364 Days R91.8 - Other nonspecific abnormal finding of lung field Coding Level of Care Code Est Pt Level 4 (50675) Diagnoses Simple chronic bronchitis J41.0 COPD type: chronic bronchitis Chronic bronchitis type: simple Pulmonary nodules R91.8 TERRY (obstructive sleep apnea) G47.33 Time Spent (min) 16
[2023-06-24 14:49] VITALS: PULSE 72; O2SAT 95; BMI 22.3
== END 2023-06-24 15:19 | disposition home or self-care (01) ==
PROVIDERS: PCP Internal Medicine; Visit Provider Hospitalist
DX: J41.0 Simple chronic bronchitis (principal); R91.8 Other nonspecific abnormal finding of lung field; G47.33 Obstructive sleep apnea (adult) (pediatric)
CPT/HCPCS: 99214

== ENCOUNTER → 2023-06-24 14:31 | Outpatient (BNVA) | payer OTHER, SELFPAY | PROVIDERS: PCP Internal Medicine; Visit Provider Hospitalist | DX: J41.0 Simple chronic bronchitis (principal); R91.8 Other nonspecific abnormal finding of lung field; G47.33 Obstructive sleep apnea (adult) (pediatric) | CPT/HCPCS: 99212 ==

== ENCOUNTER 2023-10-02 02:05 | Inpatient (IN) | payer OTHER, SELFPAY ==
[2023-10-02] VITALS (58 sets, daily range): BP systolic 84–175; BP diastolic 55–122; PULSE 96–162; RESP 16–25; TEMP 34–38.4; O2SAT 80–100; BMI 25.7; BMI 22.6; BMI 22.3
--- NOTE | 2023-10-02 | ECG_ITS ---
Test Reason : high troponin Blood Pressure : / mmHG Vent. Rate : 104 BPM Atrial Rate : 104 BPM P-R Int : 210 ms QRS Dur : 080 ms QT Int : 338 ms P-R-T Axes : 091 006 104 degrees QTc Int : 444 ms Sinus tachycardia with 1st degree A-V block Anteroseptal infarct , age undetermined Nonspecific ST abnormality Abnormal ECG No previous ECGs available Referred By: Jesenia Malloy Electronically Signed By:DANII ZENDEJAS MD
--- NOTE | ~2023-10-02 | CT_ITS ---
EXAMINATION: CT abdomen pelvis wo IV con CLINICAL INFORMATION: Reason for Exam ?SBO versus ileus COMPARISON: Prior CT scan 10/02/2023. TECHNIQUE: Multidetector volumetric imaging was performed from the superior aspect of the liver through the pubic symphysis , noncontrast study. Oral contrast was administered. Sagittal and coronal reformatted images were obtained on the technologist's workstation. This CT examination was performed using dose optimization techniques as appropriate, variously including the following: *Automated exposure control *Adjustment of mA and/or kV according to patient size (this includes techniques or standardized protocols for targeted exams where dose is matched to indication/reason for exam; i.e. extremities or head) *Use of iterative reconstruction technique DLP: 735 mGy-cm FINDINGS: LOWER THORAX: Bilateral dense consolidations with air bronchogram involving lower lobes this has significantly worsened from recent CT. HEPATOBILIARY: No focal hepatic lesions. No biliary ductal dilatation. GALLBLADDER: Gallbladder unremarkable. SPLEEN: Spleen is normal in size. PANCREAS: No focal mass or ductal dilatation. STOMACH AND GASTROINTESTINAL TRACT: There is gastric tube in the stomach the tip of which is in the gastric antrum/first segment of the duodenum. Dilated mostly air-filled colon concerning for colonic ileus versus due to fecal impaction in the rectum. Contrast-filled borderline dilated small bowel loops with multiple air-fluid levels might be sequela of partial small bowel obstruction, there is a segment of small bowel lower pelvis which exhibits circumferential wall thickening, could be regional ileitis, infection or inflammatory process such as Crohn's. No segment with thickened bowel loop left upper quadrant. Sparks image. ADRENALS: No adrenal nodules. KIDNEYS/URETERS: There is a cyst in the left kidney 1.8 cm, the Hounsfield unit attenuation of its matrix is below 0 suggesting Bosniak class I cyst likely benign no follow-up imaging is recommended. Similar cyst in the right kidney measure up to 1.7 cm. URINARY BLADDER: Partially decompressed. PELVIC VISCERA: Unremarkable PERITONEUM: No free air or fluid. LYMPH NODES: No lymphadenopathy. VASCULAR:Abdominal aorta normal in size, no aneurysm found. BONES, ABDOMINAL WALL AND SOFT TISSUES: Age-appropriate changes of the spine and skeletal system, no destructive osteolytic or osteosclerotic bone lesion found CT/CT abdomen pelvis wo IV con IMPRESSION: 1. Dilated mostly air-filled colon concerning for colonic ileus versus due to fecal impaction in the rectum. 2. Contrast-filled mildly dilated small bowel loops with multiple air-fluid levels might be sequela of partial small bowel obstruction, there is transition zone near a segment of small bowel lower pelvis which exhibits circumferential wall thickening, could be regional ileitis, infection or inflammatory process such as Crohn's. 3. Bilateral dense consolidations with air bronchogram involving both lungs lower lobes, this has worsened from recent CT scan. 4. NG tube in place. 5. Other noncritical findings as above.
--- NOTE | ~2023-10-02 | XR_ITS ---
EXAMINATION: XR CHEST CLINICAL INFORMATION: Line placement. COMPARISON: Previous of the same day. TECHNIQUE: Frontal view of the chest was obtained. FINDINGS: The cardiomediastinal silhouette is stable. An endotracheal tube is again seen in good position. A gastric tube extends below the diaphragm. Tip of the gastric tube is not seen. There has been interval placement of a left approach central line with tip at the mid SVC. Bilateral infiltrates are again seen. There is no pneumothorax. There is blunting of the costophrenic angles similar to previous. The bony structures and soft tissues are unremarkable. XR/XR chest 1V IMPRESSION: 1. Interval placement of left approach central line with tip at the mid SVC. No pneumothorax. 2. Gastric tube extends below the diaphragm, the tip of the tube is not seen.
--- NOTE | ~2023-10-02 | XR_ITS ---
EXAMINATION: XR CHEST CLINICAL INFORMATION: Status post tracheostomy COMPARISON: Chest 10/18/2023 at 6:55 AM TECHNIQUE: Frontal view of the chest was obtained. FINDINGS: The lungs are emphysematous with patchy pulmonary opacities in both midlungs. There is blunting of right CP angle from pleural thickening or effusion. Heart size and pulmonary vascularity is normal. There is new tracheostomy tube in place. There is a left central venous catheter with its tip in the proximal SVC. No gross bony abnormality seen. XR/XR chest 1V IMPRESSION: 1. New tracheostomy tube in satisfactory position. 2. Bilateral midlung patchy opacities and blunting of right CP angle from pleural thickening or effusion. 3. No change in left central venous catheter.
--- NOTE | ~2023-10-02 | XR_ITS ---
EXAMINATION: XR CHEST CLINICAL INFORMATION: Aspiration pneumonia. Intubated. COMPARISON: 10/14/2023 TECHNIQUE: Frontal view of the chest was obtained. FINDINGS: ET tube is located approximately 5.5 cm above the ray. The tip of the left IJ catheter is at level of mid to-distal SVC. The enteric tube courses along the esophagus, into the stomach, on the [id number]. Again noted is emphysematous lung disease and diffuse thickening of the bronchial rich (suggestive of bronchitis). Persistent patchy and hazy pulmonary opacities. The patchy opacity in the right midlung zone is slightly worse. The right lateral costophrenic sulcus remains blunted from small pleural effusion. Cardiac silhouette is normal in size. No pneumothorax or other significant change. XR/XR chest 1V IMPRESSION: * ET tube is in satisfactory position at 5.5 cm above the ray. * There is mild worsening of the patchy opacity in the right midlung zone in this patient with history of aspiration pneumonia.
--- NOTE | ~2023-10-02 | XR_ITS ---
EXAMINATION: XR CHEST CLINICAL INFORMATION: NG tube placement COMPARISON: Chest x-ray earlier this morning TECHNIQUE: Frontal view of the chest was obtained. FINDINGS: Interval advancement of enteric tube which now terminates well below the level the diaphragm with the tip in the region of the distal stomach. There has been no interval change in positioning of other support apparatus or bilateral airspace disease. XR/XR chest 1V IMPRESSION: Interval advancement of enteric tube which now terminates well below the level of the diaphragm with the tip in the region of the distal stomach.
--- NOTE | ~2023-10-02 | CT_ITS ---
EXAMINATION: CT HEAD WITHOUT CONTRAST CLINICAL INFORMATION: Altered mental status. COMPARISON: None available. TECHNIQUE: Contiguous axial imaging was performed from the skull base to vertex without intravenous administration of contrast. This CT examination was performed using dose optimization techniques as appropriate, variously including the following: *Automated exposure control *Adjustment of mA and/or kV according to patient size (this includes techniques or standardized protocols for targeted exams where dose is matched to indication/reason for exam; i.e. extremities or head) *Use of iterative reconstruction technique DLP: 825 mGy-cm FINDINGS: There is cerebral volume loss with prominence of the lateral and the third ventricles. The cortical sulci are widened appropriately. The fourth ventricle and basal cisterns are normally outlined. There is moderate bilateral periventricular and central white matter diminished attenuation. There is no definitive acute territorial defect, hemorrhage or midline shift. The extra-axial spaces are unremarkable. Calvarium: Intact. Maxillofacial sinuses and mastoids: The maxillofacial sinuses and mastoids are clear. There is a nasopharyngeal opacity. CT/CT head/brain wo IV con IMPRESSION: 1. Moderate bilateral periventricular and central white matter diminished attenuation is nonspecific but may represent chronic small vessel ischemic changes. 2. No definitive acute territorial infarction, hemorrhage, or midline shift. 3. There is cerebral volume loss.
--- NOTE | ~2023-10-02 | XR_ITS ---
EXAMINATION: XR CHEST CLINICAL INFORMATION: Hypoxia COMPARISON: None available. TECHNIQUE: Frontal portable view of the chest was obtained. 3:06 PM FINDINGS: Tracheostomy tube in place. Right PICC line catheter tip at caval atrial junction No change of the airspace opacities compared to exam October 30, 2023. Diffuse reticular and streaky as well as patchy perihilar airspace opacities similar opacities are similar prior study.. Persistent bilateral pleural effusions. Is a trace left pleural effusion and a small right pleural effusion. XR/XR chest 1V IMPRESSION: No significant change in the diffuse bilateral airspace opacities and bilateral pleural effusions compared with exam October 30, 2023.
--- NOTE | ~2023-10-02 | XR_ITS ---
EXAMINATION: XR CHEST CLINICAL INFORMATION: Endotracheal tube placement. COMPARISON: 10/11/2023 TECHNIQUE: Frontal view of the chest was obtained. FINDINGS: Endotracheal tube tip terminates approximately 3.5 cm above the ray. An enteric catheter terminating in the proximal stomach. Left central venous access catheter terminates over the distal SVC. The lungs appear hyperexpanded. There is patchy bilateral airspace disease and nodular densities not significantly changed from prior. Small right pleural effusion. Cardiac silhouette is unchanged. XR/XR chest 1V IMPRESSION: As above.
--- NOTE | ~2023-10-02 | XR_ITS ---
EXAMINATION: XR CHEST CLINICAL INFORMATION: Hypoxia COMPARISON: 10/06/2023 CT scan and chest radiograph from 10/05/2023 TECHNIQUE: Frontal view of the chest was obtained. FINDINGS: There is no interval change in position of supporting cysts tubes and lines. There is stable patchy airspace disease, more prominent on the right. Cardiomediastinal silhouette is normal. XR/XR chest 1V IMPRESSION: No interval change
--- NOTE | ~2023-10-02 | XR_ITS ---
EXAMINATION: XR CHEST CLINICAL INFORMATION: Respiratory failure. Intubation. COMPARISON: 05/13/2021. TECHNIQUE: Frontal view of the chest was obtained. FINDINGS: The cardiomediastinal silhouette is stable. There is an endotracheal tube seen in good position above the ray. A gastric tube extends below the diaphragm beyond the field of imaging. There are diffuse bilateral lung opacities/infiltrates more pronounced on the right. There is blunting of the costophrenic angles. The bony structures and soft tissues are unremarkable. XR/XR chest 1V IMPRESSION: Endotracheal tube and gastric tube in good position. Diffuse bilateral lung opacities/infiltrates, more pronounced on the right. An infectious process suspected. A component of edema considered.
--- NOTE | ~2023-10-02 | CT_ITS ---
EXAMINATION: CT CHEST, ABDOMEN AND PELVIS WITHOUT CONTRAST CLINICAL INFORMATION: Hypoxia. Pain. COMPARISON: 04/28/2023. TECHNIQUE: Multidetector volumetric imaging was performed from through the chest, abdomen and pelvis without intravenous contrast. Sagittal and coronal reformatted images also obtained. This CT examination was performed using dose optimization techniques as appropriate, variously including the following: *Automated exposure control *Adjustment of mA and/or kV according to patient size (this includes techniques or standardized protocols for targeted exams where dose is matched to indication/reason for exam; i.e. extremities or head) *Use of iterative reconstruction technique TOTAL DLP: 962 mGy-cm FINDINGS: LUNG: There is an endotracheal tube in adequate position above the ray. There is significant right lower lobe consolidation/infiltrate. There is also right upper lobe consolidation. There is a pleural-based opacity left upper lobe measuring 3 cm which appears to progressed compared to previous. There is also diffuse bilateral interstitial prominence and emphysematous change. There is peripheral bronchial opacification. PLEURA: There is a small right pleural effusion. MEDIASTINUM: Normal heart size. No pericardial effusion. No hilar or mediastinal lymphadenopathy. CORONARY ARTERY CALCIFICATION: Mild. CHEST WALL/AXILLA: No axillary or internal mammary lymphadenopathy. LIVER, GALLBLADDER, AND BILIARY TREE: The liver is slightly irregular in contour. No focal liver lesions are seen. There is no intrahepatic biliary duct dilatation. The gallbladder is unremarkable with no evidence of radiopaque gallstones, gallbladder wall thickening, or obvious pericholecystic inflammatory changes. PANCREAS: Normal; no mass or surrounding fluid. SPLEEN: Unremarkable. ADRENAL GLANDS: Normal; no mass. KIDNEYS AND URETERS: The kidneys are normal in size, shape, and attenuation. No hydronephrosis, hydroureter, or calculi. There are a few scattered renal cysts measuring up to 2.1 cm. GASTROINTESTINAL TRACT: There is retained stool. There are prominent fluid-filled small bowel loops. The appendix is visualized and is within normal limits. Gastric tube extends into the stomach. ABDOMINAL WALL: Unremarkable. LYMPHOVASCULAR STRUCTURES: Unremarkable. BLADDER: Urinary bladder is decompressed with a Miguel catheter in place. There is a small amount of air within the urinary bladder. PELVIC VISCERA: Unremarkable. OSSEOUS STRUCTURES: Unremarkable. CT/CT abdomen pelvis wo IV con IMPRESSION: 1. Significant right lower lobe consolidation/infiltrate. There is also right upper lobe consolidation. Pneumonia suspected. There is a small right pleural effusion. 2. There is a pleural-based opacity left upper lobe which appears to progressed compared to previous. Consider 1-3 month follow-up. 3. There is also diffuse bilateral interstitial prominence and emphysematous change. 4. There are prominent fluid-filled small bowel loops. This may be seen with enteritis.
--- NOTE | ~2023-10-02 | XR_ITS ---
EXAMINATION: XR CHEST CLINICAL INFORMATION: Hypoxia COMPARISON: 10/02/2023 TECHNIQUE: Frontal view of the chest was obtained. FINDINGS: Left-sided central venous catheter tip remains in the superior vena cava. ET tube approximately 7 cm above the ray. NG tube in place, tip is in the stomach, sidehole likely at the GE junction. Heart and mediastinum within normal limits. Patchy pulmonary opacities again seen bilaterally, right greater than left. Right costophrenic angle blunting is unchanged. Likely progression left base increased markings and costophrenic angle blunting. Bony structures are intact. XR/XR chest 1V IMPRESSION: Proximal location NG tube which needs to be advanced and reimaging obtained. Persistent patchy pulmonary opacities, slightly worsened at the left base. Bilateral pleural effusions, worsening on the left.
--- NOTE | ~2023-10-02 | XR_ITS ---
EXAMINATION: XR CHEST CLINICAL INFORMATION: Pulmonary edema. COMPARISON: 10/21/2023 TECHNIQUE: Frontal view of the chest was obtained. FINDINGS: Tracheostomy tube in satisfactory position. The tip of the right arm peripherally inserted catheter is at level of distal superior vena cava. The emphysematous lungs are well expanded. Bronchial rich remain diffusely thickened. Again noted are reticular, streaky and patchy opacities in both lungs, worst in perihilar region of right upper lobe. Small right pleural effusion is present. The left lateral costophrenic sulcus is slightly blunted. Trace left pleural effusion is suspected. No pneumothorax. Cardiac silhouette is normal in size. No acute osseous abnormality. XR/XR chest 1V IMPRESSION: * Chronic emphysematous lung disease. * The radiographic abnormalities need to be interpreted within the clinical context. Findings could represent bronchitis and multilobar pneumonia with interval worsening patchy opacity in the perihilar region of the right lung. Alternatively, this could represent an asymmetric pattern of pulmonary edema. * Interval increased size of small right pleural effusion.
--- NOTE | ~2023-10-02 | US_ITS ---
EXAMINATION: US VENOUS ULTRASOUND WITH DOPPLER LOWER EXTREMITY, BILATERAL CLINICAL INFORMATION: Hypoxia. COMPARISON: None available. TECHNIQUE: Ultrasound of the deep veins is performed from the hip to the calf with compression sonography and color and pulse Doppler assessment. Spectral analysis with color-flow imaging is performed. FINDINGS: RIGHT: There is normal venous compression and respiratory variation and augmented flow. The visualized common femoral vein, superficial femoral vein, profunda femoral vein, popliteal vein, and the trifurcation region shows no evidence of deep venous thrombosis. LEFT: There is normal venous compression and respiratory variation and augmented flow. The visualized common femoral vein, superficial femoral vein, profunda femoral vein, popliteal vein, and the trifurcation region shows no evidence of deep venous thrombosis. If the patient's symptoms persist, followup ultrasound in 5 days 7 days might be of value to exclude proximal propagation from a non-visualized calf vein. US/US venous duplex LE IMPRESSION: No DVT demonstrated in the bilateral lower extremities.
[2023-10-02] MEDS: Naloxone HCl 0.4 MG/ML VIAL IVPUSH (02:09)
--- NOTE | 2023-10-02 02:09 | PC.NURSE ---
0209 0.4 mg Narcan administered intranasal 0215 No response from Narcan pt still being bagged. Preparing for RSI. Pt difficult stick. IO inserted to left proximal tib for medication administration. 0217 20 mg Etomidate administered 0218 50 mg Rocuronium administered 0220 Pt successfull inubated with 7.5 ETT 26 at the lip per Dr. Lucero. 0221 OG tube inserted per Dr. Lucero.
[2023-10-02] MEDS: Etomidate 20 MG/10 ML VIAL IVPUSH (02:17)
[2023-10-02] MEDS: Rocuronium Bromide 50 MG/5 ML VIAL IVPUSH (02:18)
--- NOTE | 2023-10-02 02:24 | ED.SOB ---
HPI - SOB/Dyspnea General Chief Complaint: Dyspnea Stated Complaint: ams sob Time Seen by Provider: 10/02/23 02:24 Source: patient Mode of arrival: EMS Limitations: altered mental status History of Present Illness HPI Narrative: 62-year-old male with a history of COPD, HIV and hepatitis who called 911 complained of shortness of breath for 2 hours when the paramedics arrived they state that initially he was talking in full sentences but appeared to be cyanotic and tachypneic. They placed him on CPAP but he did not tolerate this and they had to change to [id number] at 15 L flow. The patient then became altered in route. When they arrived in the emergency department the patient's respirations were being assisted by the bag-valve mask, the patient was unresponsive to verbal or painful stimuli. He was given 4 mg of intranasal Narcan with no effect. Patient's initial O2 saturation was in the 80% range. Given his altered mental status he was shortly after arrival. During the intubation, the patient had a large amount of frothy secretions in his posterior pharynx. When the respiratory therapist suctioned down the tube the patient had pink frothy secretions as well. Related Data Home Medications Medication Instructions Recorded Confirmed bictegravir 50 mg-emtricitabine 1 tab PO DAILY 04/24/22 200 mg-tenofovir alafenam 25 mg tablet (Biktarvy) fluticasone propionate 50 0 mcg intranasal 04/24/22 mcg/actuation nasal spray,suspension methadone 10 mg/mL oral 15 mg PO Q4H 04/24/22 concentrate (Methadone Intensol) montelukast 10 mg tablet 10 mg PO DAILY 04/24/22 ledipasvir 90 mg-sofosbuvir 400 mg 1 tab PO DAILY 08/14/22 tablet nebulizers 08/14/22 propranolol 60 mg tablet 60 mg PO BID 08/14/22 carvedilol 6.25 mg tablet 6.25 mg PO BID 10/30/22 dapagliflozin propanediol 10 mg 10 mg PO DAILY 10/30/22 tablet (Farxiga) furosemide 40 mg tablet 40 mg PO DAILY 10/30/22 spironolactone 25 mg tablet 0 mg PO 11/13/22 atorvastatin 40 mg tablet 40 mg PO DAILY 04/30/23 sacubitril 49 mg-valsartan 51 mg 1 tab PO BID 09/22/23 tablet (Entresto) Previous Rx's Medication Instructions Recorded albuterol sulfate 90 mcg/actuation 2 puff inhalation Q4-6H PRN 05/13/21 aerosol inhaler shortness of breath or wheezing #6.7 grams albuterol sulfate 2.5 mg/3 mL 2.5 mg (3 mL) inhalation Q4H PRN 03/03/22 (0.083 %) solution for nebulization shortness of breath or wheezing 30 days #360 mL budesonide-formoterol HFA 160 2 puff PO BID #10.2 ea 05/18/23 mcg-4.5 mcg/actuation aerosol inhaler tiotropium bromide 2.5 2 inh PO DAILY #4 mL 05/27/23 mcg/actuation mist for inhalation (Spiriva Respimat) Allergies Allergy/AdvReac Type Severity Reaction Status Date / Time No Known Allergies Allergy Verified 06/24/23 14:50 [No Known Allergies*] Review of Systems Review of Systems: Yes unobtainable due to endotracheal tube and Unobtainable due to mental condition PMFSH Past Medical History Medical History TERRY (obstructive sleep apnea) Pulmonary nodules Hepatitis C HIV disease COPD (chronic obstructive pulmonary disease) Social History Social History Patient Tobacco Use Status: Current everyday Tobacco user Tobacco use type: Cigarette Cigarette Packs Per Day: 1 Cigarettes Per Day: 4 Years Smoked: 30 Years Physical Exam Vital Signs: Vital Signs: Last Vital Signs Temp 99.3 F 10/02/23 06:49 Pulse 126 H 10/02/23 06:49 Resp 22 H 10/02/23 06:49 BP 124/83 10/02/23 06:49 Pulse Ox 86 L 10/02/23 06:49 O2 Del Method Mechanical Ventil ation 10/02/23 06:49 FiO2 70 10/02/23 06:49 BMI result Body Mass Index 25.7 Initial O2 saturation was 80% with bag-valve mask by paramedics. With 2 person technique, your able to get the patient's O2 saturation up to 100% however patient was still altered Exam General: Unresponsive to verbal or painful stimuli Head: Normocephalic, atraumatic EENT: PERRL, sclera normal, conjunctiva normal, nose normal , ears normal Neck: Supple Lung: Diffuse rales and rhonchi Chest: symmetric movement Heart: Tachycardia with regular rhythm normal S1, S2 no murmurs or rubs Abdomen: soft,nondistended, normal bowel sounds Extremities: no obvious deformity Neuro: Unresponsive to painful stimuli Medications Administered Generic Name Dose Route Start Last Admin Trade Name Freq PRN Reason Stop Dose Admin Albuterol/Ipratropium 3 ml 10/02/23 05:15 10/02/23 06:01 Albuterol/Iprat 2.5/0.5mg 3 Ml Ampul.Neb INHALE 3 ml Q6H SUSANA Administration Heparin Sodium (Porcine) 5,000 unit 10/02/23 04:00 10/02/23 05:03 Heparin Sodium,Porcine 5,000 Unit/Ml Vial SUBCUT 5,000 unit Q12H SUSANA Administration Propofol 1,000 mg in 100 mls @ 0 mls/hr 10/02/23 02:30 10/02/23 04:05 Diprivan IVCONT 20 mcg/kg/min .Q0M SUSANA 9.48 mls/hr Titration Protocol Per Protocol Norepinephrine Bitartrate 8 mg in 250 mls @ 0 mls/hr 10/02/23 04:30 10/02/23 05:00 Levophed IV 0.5 mcg/kg/min .Q0M SUSANA 74.06 mls/hr Titration Protocol Per Protocol Discontinued Medications Generic Name Dose Route Start Last Admin Trade Name Freq PRN Reason Stop Dose Admin Adenosine 6 mg 10/02/23 03:25 10/02/23 03:17 Adenosine 6 Mg/2 Ml Vial IVPUSH 10/02/23 03:26 6 mg ONCE ONE Administration Adenosine 12 mg 10/02/23 03:25 10/02/23 03:25 Adenosine 6 Mg/2 Ml Vial IVPUSH 10/02/23 03:26 12 mg ONCE ONE Administration Atovaquone 1,500 mg 10/02/23 02:50 10/02/23 05:19 Atovaquone 750 Mg/5 Ml Oral.Susp PO 10/02/23 02:51 Not Given ONCE ONE Diltiazem HCl 10 mg 10/02/23 02:44 10/02/23 02:48 Diltiazem Hcl 50 Mg/10 Ml Vial IVPUSH 10/02/23 02:45 10 mg STAT STA Administration Diltiazem HCl 10 mg 10/02/23 02:52 10/02/23 03:04 Diltiazem Hcl 50 Mg/10 Ml Vial IVPUSH 10/02/23 02:53 10 mg STAT STA Administration Diltiazem HCl 10 mg 10/02/23 04:17 10/02/23 05:18 Diltiazem Hcl 50 Mg/10 Ml Vial IVPUSH 10/02/23 04:18 10 mg STAT STA Administration Etomidate 20 mg 10/02/23 02:27 10/02/23 02:17 Etomidate 20 Mg/10 Ml Vial IVPUSH 10/02/23 02:28 20 mg ONCE ONE Administration Cefepime HCl 2 gm/ Sodium 50 mls @ 100 mls/hr 10/02/23 02:49 10/02/23 03:40 Chloride IV 10/02/23 03:18 100 mls/hr ONCE ONE Administration Vancomycin HCl 2,000 mg in 500 mls @ 250 mls/hr 10/02/23 03:00 10/02/23 04:44 Vancomycin/Ns IV 10/02/23 04:59 Not Given ONCE ONE Lactated Ringer's 2,370 mls @ 2,370 mls/hr 10/02/23 03:38 10/02/23 04:05 Lr 30 ml/kg infuse over 1 hr (2370 ml) 10/02/23 04:37 2,370 mls/hr IV Administration .Q1H ONE Vancomycin HCl 1,000 mg/ 270 mls @ 270 mls/hr 10/02/23 04:30 10/02/23 06:54 Sodium Chloride IV 10/02/23 05:29 Infused ONCE ONE Infusion Vancomycin HCl 1,000 mg/ 270 mls @ 270 mls/hr 10/02/23 05:30 10/02/23 06:52 Sodium Chloride IV 10/02/23 06:29 270 mls/hr ONCE ONE Administration Naloxone HCl 0.4 mg 10/02/23 02:56 10/02/23 02:09 Naloxone Hcl 0.4 Mg/Ml Vial IVPUSH 10/02/23 02:57 0.4 mg ONCE ONE Administration Pantoprazole Sodium 40 mg 10/02/23 06:30 10/02/23 05:30 Pantoprazole Sodium 40 Mg/10 Ml Vial IVPUSH 10/02/23 06:31 40 mg DAILY ONE Administration Rocuronium [place] 50 mg 10/02/23 02:25 10/02/23 02:18 Rocuronium [place] 50 Mg/5 Ml Vial IVPUSH 10/02/23 02:26 50 mg ONCE ONE Administration Sodium Bicarbonate 50 meq 10/02/23 03:25 10/02/23 03:16 Sodium Bicarbonate 8.4% 50 Meq/50 Ml Syringe IVPUSH 10/02/23 03:26 50 meq ONCE ONE Administration Sodium Bicarbonate 50 meq 10/02/23 03:34 10/02/23 03:21 Sodium Bicarbonate 8.4% 50 Meq/50 Ml Syringe IVPUSH 10/02/23 03:35 50 meq ONCE ONE Administration Medical Decision Making Medical Decision Making MDM Narrative: 62-year-old male with a history of COPD, HIV and hepatitis who called 911 complained of shortness of breath for 2 hours when the paramedics arrived they state that initially he was talking in full sentences but appeared to be cyanotic and tachypneic, patient felt CPAP and paramedics change to [id number]-wacpl-mral at 15 L flow. Initial O2 saturation was 80% and with to person bag-valve respiratory support were able to get his O2 saturation up to 100% but this did not changes altered level of consciousness. Patient was given Narcan 4 mg intranasally with no effect. Patient was then given etomidate 20 mg IV and rocuronium 50 mg IV. Initial attempted intubation was unsuccessful due to the large amount of frothy secretions in the patient's posterior pharynx. After [id number]-[id number] respiratory support, I was able to suction out a significant amount of secretions and the patient was easily intubated using the 4.0 glide scope and a 7.5 endotracheal tube. Positive color change noted on the end-tidal CO2 catheterization. 04:20 Differential diagnosis: Includes but is not limited to COPD exacerbation, pneumonia, congestive heart failure, myocardial infarction, myocardial ischemia, Pneumocystis pneumonia, electrolyte abnormalities, anemia My independent interpretation patient's laboratory evaluation is as follows: WBC normal 10,600 with a left shift 76 neutrophils and 16 lymphocytes. CO2 low 21, BUN creatinine elevated 25 and 1.85 with a low GFR of 37. Glucose elevated 148. AST elevated 81, alk-phos elevated 172. CRP elevated 8.0. BNP only slightly elevated at 118. Lactic acid elevated 2.9. TSH was normal. Urinalysis was positive for protein, glucose, blood. Microscopic revealed 6-10 RBCs, 21-50 WBCs, 1+ bacteria. Urine tox screen was positive for marijuana only. Ethanol was below detectable limits. Troponin was elevated 139.3.-this is most likely type 2 injury from the patient's hypoxia and tachycardia. Twelve EKG revealed a tachyarrhythmia with a rate of 137 with Q-waves V1 through V3 with no ST segment elevation or depression, patient had poor R-wave progression on an EKG dated 05/13/2021. Patient did developed SVT and was treated with diltiazem and adenosine IV. Patient's presentation was discussed with the covering foundation drill operator, and the patient is accepted to the ICU pending further workup The ICU physician medical receptionist medical assistant, Alexei Richter came to the emergency department and evaluated the patient. He also placed a central line in the patient and assisted in the patient's care. 06:33 CT scan of the patient's head is consistent with microvascular white matter ischemic change CT scan of the abdomen without IV contrast consistent with enteritis CT scan of the chest did reveal significant right lower lobe consolidation/infiltrate as well as right upper lobe consolidation more consistent with pneumonia then CHF. I did discuss these findings over tiger text with the physician medical receptionist medical assistant foundation drill operator, Alexei Richter. Admission/Observation Consideration of admission/observation: Escalation of care including admission/observation considered Consult Healthcare Provider Management of the patient was discussed with: Supervisor [employer] (Servicer, Dr. Jesenia Malloy and physician medical receptionist medical assistant foundation drill operator, Uriah Richter) Lab Data MDM Lab Attestation statement: I reviewed the patient's lab results. 10/02/23 03:12 10/02/23 03:11 Labs: Lab Results 10/02/23 10/02/23 10/02/23 Range/Units 02:58 03:11 03:12 WBC 10.6 (4.8-10.8) X10*3/uL RBC 5.54 (4.60-5.80) X10*6/uL Hgb 12.6 L (14.0-18.0) g/dl Hct 39.9 L (42.0-52.0) % MCV 72.0 L (80.0-98.0) fL MCH 22.7 L (27.0-33.0) pg MCHC 31.6 (31.0-36.0) g/dl RDW 15.3 (11.0-16.0) % Plt Count 190 (160-400) X10*3/uL MPV 10.1 (9.4-12.4) fL Immature Gran % (Auto) 0.5 H (0.0-0.4) % Neut % (Auto) 75.6 H (45-73) % Lymph % (Auto) 16.7 L (20-40) % [place] % (Auto) 7.0 (2-11) % Eos % (Auto) 0.0 (0-4) % Baso % (Auto) 0.2 (0-2) % Lymph # (Auto) 1.8 (1.2-4.9) X10*3/uL [place] # (Auto) 0.7 (0.1-1.2) X10*3/uL Eos # (Auto) 0.0 (0.0-0.4) X10*3/uL Baso # (Auto) 0.0 (0.0-0.2) X10*3/uL Abs Immat Gran (auto) 0.05 H (0.00-0.03) X10*3/uL Absolute Neuts (auto) 8.0 (2.0-8.3) x10*3/uL Absolute Nucleated RBC 0.020 H (0.0-0.012) X10*3/uL Nucleated RBC % (auto) 0.2 (0.0-0.2) /100WBC PT 13.4 H (11.1-13.3) SEC INR 1.1 (0.9-1.1) APTT 26.5 (26.0-36.8) SEC O2 Saturation 88.0 % ABG pH at Pt Temp 7.17 L* (7.35-7.45) ABG pCO2 at Pt Temp 56 H (32-45) mmHg ABG pO2 at Pt Temp 75 L (83-108) mmHg ABG HCO3 21 L (22-26) mmol/L ABG Base Excess (Actual) -7.6 mmol/L Sodium 136 (135-145) mmol/L Potassium 4.1 (3.3-5.1) mmol/L Chloride 100 (96-108) mmol/L Carbon Dioxide 21 L (22-29) mmol/L Anion Gap 19 (12-20) BUN 25 H (9-16) mg/dL Creatinine 1.84 H (0.5-1.4) mg/dL Estim Creat Clear Calc 41.0 Estimated GFR 37 Random Glucose 148 H (60-115) mg/dL Lactic Acid 2.9 H* (0.5-2.0) mmol/L Calcium 9.3 (8.4-10.2) mg/dL Phosphorus 7.7 H (2.7-4.5) mg/dL Magnesium 2.1 (1.6-2.6) mg/dL Total Bilirubin 0.5 (0.0-1.0) mg/dL AST 81 H (5-37) U/L ALT 37 (0-40) U/L Alkaline Phosphatase 172 H (39-117) U/L Troponin I High Sens 139.3 H* (<3.5-35.0) ng/L C-Reactive Protein 8.05 H (< or = 0.50) mg/dL B-Natriuretic Peptide 118 H (<100) pg/mL Total Protein 8.5 H (6.5-8.0) g/dL Albumin 4.1 (3.5-5.0) g/dL Lipase 32 (8-78) U/L Procalcitonin 0.10 ng/mL TSH 0.85 (0.32-4.0) uIU/mL Urine Color Urine Appearance Urine pH (5.0-9.0) Ur Specific [place] (1.005-1.025) Urine Protein (Neg-Trace) mg/dL Urine Glucose (UA) (Negative) mg/dL Urine Ketones (Negative) mg/dL Urine Blood (Negative) Urine Nitrite (Negative) Ur Leukocyte Esterase (Negative) Urine RBC (0-2) /HPF Urine WBC (0-5) /HPF Ur Squamous Epith Cells (0-2) /HPF Urine Bacteria (None Seen) Hyaline Casts (0-2) /LPF Granular Casts Urine Opiates Screen (Not Detect) Urine Fentanyl Screen (Not Detect) Ur Barbiturates Screen (Not Detect) Ur Phencyclidine Scrn (Not Detect) Ur Amphetamines Screen (Not Detect) U Benzodiazepines Scrn (Not Detect) Urine Cocaine Screen (Not Detect) U Marijuana (THC) Screen (Not Detect) Ethyl Alcohol < 10 mg/dL Influenza Type A (PCR) (Negative) Influenza Type B (PCR) (Negative) RSV RNA Qual (PCR) (Negative) SARS-CoV-2 RNA (RT-PCR) (Negative) 10/02/23 10/02/23 Range/Units 03:44 03:45 WBC (4.8-10.8) X10*3/uL RBC (4.60-5.80) X10*6/uL Hgb (14.0-18.0) g/dl Hct (42.0-52.0) % MCV (80.0-98.0) fL MCH (27.0-33.0) pg MCHC (31.0-36.0) g/dl RDW (11.0-16.0) % Plt Count (160-400) X10*3/uL MPV (9.4-12.4) fL Immature Gran % (Auto) (0.0-0.4) % Neut % (Auto) (45-73) % Lymph % (Auto) (20-40) % [place] % (Auto) (2-11) % Eos % (Auto) (0-4) % Baso % (Auto) (0-2) % Lymph # (Auto) (1.2-4.9) X10*3/uL [place] # (Auto) (0.1-1.2) X10*3/uL Eos # (Auto) (0.0-0.4) X10*3/uL Baso # (Auto) (0.0-0.2) X10*3/uL Abs Immat Gran (auto) (0.00-0.03) X10*3/uL Absolute Neuts (auto) (2.0-8.3) x10*3/uL Absolute Nucleated RBC (0.0-0.012) X10*3/uL Nucleated RBC % (auto) (0.0-0.2) /100WBC PT (11.1-13.3) SEC INR (0.9-1.1) APTT (26.0-36.8) SEC O2 Saturation % ABG pH at Pt Temp (7.35-7.45) ABG pCO2 at Pt Temp (32-45) mmHg ABG pO2 at Pt Temp (83-108) mmHg ABG HCO3 (22-26) mmol/L ABG Base Excess (Actual) mmol/L Sodium (135-145) mmol/L Potassium (3.3-5.1) mmol/L Chloride (96-108) mmol/L Carbon Dioxide (22-29) mmol/L Anion Gap (12-20) BUN (9-16) mg/dL Creatinine (0.5-1.4) mg/dL Estim Creat Clear Calc Estimated GFR Random Glucose (60-115) mg/dL Lactic Acid (0.5-2.0) mmol/L Calcium (8.4-10.2) mg/dL Phosphorus (2.7-4.5) mg/dL Magnesium (1.6-2.6) mg/dL Total Bilirubin (0.0-1.0) mg/dL AST (5-37) U/L ALT (0-40) U/L Alkaline Phosphatase (39-117) U/L Troponin I High Sens (<3.5-35.0) ng/L C-Reactive Protein (< or = 0.50) mg/dL B-Natriuretic Peptide (<100) pg/mL Total Protein (6.5-8.0) g/dL Albumin (3.5-5.0) g/dL Lipase (8-78) U/L Procalcitonin ng/mL TSH (0.32-4.0) uIU/mL Urine Color Yellow Urine Appearance Cloudy Urine pH 6.5 (5.0-9.0) Ur Specific [place] 1.020 (1.005-1.025) Urine Protein 300 (3+) H (Neg-Trace) mg/dL Urine Glucose (UA) 500 H (Negative) mg/dL Urine Ketones Negative (Negative) mg/dL Urine Blood Large (3+) H (Negative) Urine Nitrite Negative (Negative) Ur Leukocyte Esterase Negative (Negative) Urine RBC 6-10 H (0-2) /HPF Urine WBC 21-50 H (0-5) /HPF Ur Squamous Epith Cells 0-2 (0-2) /HPF Urine Bacteria 1+ (None Seen) Hyaline Casts 11-20 (0-2) /LPF Granular Casts Present Urine Opiates Screen Not Detected (Not Detect) Urine Fentanyl Screen Not Detected (Not Detect) Ur Barbiturates Screen Not Detected (Not Detect) Ur Phencyclidine Scrn Not Detected (Not Detect) Ur Amphetamines Screen Not Detected (Not Detect) U Benzodiazepines Scrn Not Detected (Not Detect) Urine Cocaine Screen Not Detected (Not Detect) U Marijuana (THC) Screen POSITIVE H (Not Detect) Ethyl Alcohol mg/dL Influenza Type A (PCR) POSITIVE A (Negative) Influenza Type B (PCR) NEGATIVE (Negative) RSV RNA Qual (PCR) NEGATIVE (Negative) SARS-CoV-2 RNA (RT-PCR) NEGATIVE (Negative) ABG Data ABG Results: ABD G done after the patient was intubated and on the ventilator was as follows: PH 7.17, pCO2 56, PO2 75-is consistent with respiratory metabolic acidosis with hypoxia. Independent Interpretation I performed an independent interpretation of an: EKG and Plain X-Ray Interpretation: My independent interpretation of the patient's 12 EKG done at 03:38 hours is as follows: Tachyarrhythmia with a rate of 137, normal NE interval, QRS duration QTC interval, no significant ST segment elevation or ST segment depression, no T-wave abnormalities, Q-waves V1 through V3, no PACs, no PVCs-EKG dated 05/13/2021 revealed poor R-wave progression in leads V1 through V3. My independent interpretation the patient's chest x-rays: 1st x-ray after intubation and G-tube placement revealed diffuse bilateral interstitial infiltrates right greater than left, ET tube was in good position, NG tube extends below the diaphragm is most likely in the stomach. Second chest x-ray done after left IJ placement revealed line is in good position with no pneumothorax otherwise no other change Radiology Impression Discussion of test interpretation with radiology: I have reviewed the radiologist's reading. Radiologist Impression: XR chest 1V status post intubation/G-tube placed IMPRESSION: Endotracheal tube and gastric tube in good position. Diffuse bilateral lung opacities/infiltrates, more pronounced on the right. An infectious process suspected. A component of edema considered. Dictated By: Irvin Sweeney XR chest 1V status post line placed IMPRESSION: 1. Interval placement of left approach central line with tip at the mid SVC. No pneumothorax. 2. Gastric tube extends below the diaphragm, the tip of the tube is not seen. Dictated By: Irvin Sweeney CT chest wo IV con IMPRESSION: 1. Significant right lower lobe consolidation/infiltrate. There is also right upper lobe consolidation. Pneumonia suspected. There is a small right pleural effusion. 2. There is a pleural-based opacity left upper lobe which appears to progressed compared to previous. Consider 1-3 month follow-up. 3. There is also diffuse bilateral interstitial prominence and emphysematous change. 4. There are prominent fluid-filled small bowel loops. This may be seen with enteritis. Dictated By: Irvin Sweeney CT head/brain wo IV con IMPRESSION: 1. Moderate bilateral periventricular and central white matter diminished attenuation is nonspecific but may represent chronic small vessel ischemic changes. 2. No definitive acute territorial infarction, hemorrhage, or midline shift. 3. There is cerebral volume loss. Dictated By: Irvin Sweeney Independent Historian Clinical information obtained from an independent historian. History obtained from or confirmed by: EMS Chronic Conditions Patient?s care impacted by: Other (COPD, HIV disease) Procedures Intubation Intubation Type:: Emergency Endotracheal Intubation Intubation Date:: 10/02/23 Intubation Time:: 02:35 Time out performed: No sedative: Etomidate Mg Given: 20 paralytic: Rocuronium Mg Given: 50 Laryngoscope: fiber optic video scope ([place] scope, 4.0 blade) ET Tube Size: 7.5 ET Tube Uncuffed: Yes Tube Secured Depth (cm): 23 Tube Secured Location: lips Tube Placement Confirmation: visualized tube passing through cords, equal breath sounds bilaterally and confirmation by capnometry (Positive color change on CO2 cap) Patient Tolerated Procedure: well Intubation Complications: none Additional Comments: Patient had a significant amount of posterior pharyngeal secretions which caused the 1st attempt to fell, 2nd attempt I was able to suction out the secretions enough to visualize the cords and easily pass the 7.5 endotracheal tube. IO Left Tibia: Time Out Performed: No IO Instrument Used to Penetrate the Cortex: battery powered IO drill Patient Tolerated Procedure: no complications Complications: none Critical Care Time Critical Care Time Critical Care Time: Yes Total Critical Care Time: 90 Attestation: Critical Care: The patient was critically ill with a high probability of imminent or life threatening deterioration. I spent greater than 30 minutes of discontinuous time evaluating the patient,delivering critical care at the bedside, discussing and evaluating pertinent data with consultants. Critical care time does not include time spent performing separately billable procedures or teaching. Total time spent performing critical care was 90 minutes. Discharge Plan Discharge Clinical Impression: Myocardial injury Pneumonia Qualifiers: Pneumonia type: due to unspecified organism Laterality: right Lung location: lower lobe of lung Qualified Code(s): J18.9 - Pneumonia, unspecified organism Respiratory failure Qualifiers: Chronicity: acute Respiratory failure complication: hypoxia and hypercapnia Qualified Code(s): J96.01 - Acute respiratory failure with hypoxia; J96.02 - Acute respiratory failure with hypercapnia Patient Disposition: Admitted As Inpatient Discharge Date/Time: 10/02/23 06:15
--- NOTE | 2023-10-02 02:25 | ECG_ITS ---
Test Reason : dyspnea Blood Pressure : / mmHG Vent. Rate : 137 BPM Atrial Rate : 137 BPM P-R Int : 176 ms QRS Dur : 086 ms QT Int : 288 ms P-R-T Axes : 000 -11 094 degrees QTc Int : 434 ms Sinus tachycardia Anteroseptal infarct (cited on or before 12-JAN-2014) Abnormal ECG When compared with ECG of 13-MAY-2021 14:23, Vent. rate has increased BY 55 BPM Questionable change in QRS axis Nonspecific T wave abnormality no longer evident in Inferior leads Referred By: Blade Lucero Electronically Signed By:DANII ZENDEJAS MD
[2023-10-02] MEDS: propofoL 1,000 MG/100 ML VIAL 4.74 MG IVCONT (02:28)
[2023-10-02] MEDS: dilTIAZem HCL 50 MG/10 ML VIAL 10 MG IVPUSH ×3 (02:48→05:18)
--- NOTE | 2023-10-02 02:57 | PC.NURSE ---
Alexei HILTON at bedside preparing for Central line insertion
--- NOTE | 2023-10-02 03:02 | PC.NURSE ---
Central line guide wire out.
[2023-10-02 03:06] LABS: ABG Refer to POC result; ABG Base Excess -7.6 mmol/L; ABG HCO3 21 mmol/L (22-26); ABG pCO2 56 mmHg (32-45); ABG pH 7.17 (7.35-7.45); ABG pO2 75 mmHg (83-108)
[2023-10-02] MEDS: Sodium Bicarbonate 8.4% 50 MEQ/50 ML SYRINGE IVPUSH ×2 (03:16→03:21)
--- NOTE | 2023-10-02 03:16 | PC.NURSE ---
1 amp bicarb given
--- NOTE | 2023-10-02 03:16 | PC.NURSE ---
Central line successfully secured. Per Alexei HILTON okay to use without repeat CXR at this time.
[2023-10-02] MEDS: Adenosine 6 MG/2 ML VIAL IVPUSH (03:17)
--- NOTE | 2023-10-02 03:17 | PC.NURSE ---
6 mg Adenosine administered
[2023-10-02 03:21] LABS: Basophils Percent Auto 0.2 % (0-2); Hematocrit 39.9 % (42.0-52.0); Hemoglobin 12.6 g/dl (14.0-18.0); Imm Gran Abs Auto 0.05 X10*3/uL (0.00-0.03); Imm Gran Pct Auto 0.5 % (0.0-0.4); Lymphocytes Absolute Auto 1.8 X10*3/uL (1.2-4.9); Lymphocytes Percent Auto 16.7 % (20-40); MANUAL DIFF FLAG NO; Mean Corpuscular HGB Conc 31.6 g/dl (31.0-36.0); Mean Corpuscular Hemoglobin 22.7 pg (27.0-33.0); Mean Platelet Volume 10.1 fL (9.4-12.4); Monocytes Absolute Auto 0.7 X10*3/uL (0.1-1.2); NRBC Pct Auto 0.2 /100WBC (0.0-0.2); Neutrophils Percent Auto 75.6 % (45-73); Platelet Count 190 X10*3/uL (160-400); Red Blood Count 5.54 X10*6/uL (4.60-5.80); Red Cell Distribution Width 15.3 % (11.0-16.0); White Blood Count 10.6 X10*3/uL (4.8-10.8)
--- NOTE | 2023-10-02 03:21 | PC.NURSE ---
1 amp bicarb given
[2023-10-02] MEDS: Adenosine 6 MG/2 ML VIAL 12 MG IVPUSH (03:25)
--- NOTE | 2023-10-02 03:26 | PC.NURSE ---
Left tibia IO removed per Alexei HILTON.
[2023-10-02 03:27] LABS: INTERNATIONAL NORM RATIO 1.1 (0.9-1.1); Prothrombin Time 13.4 SEC (11.1-13.3)
[2023-10-02 03:29] LABS: Partial Thromboplastin Time 26.5 SEC (26.0-36.8)
[2023-10-02] MEDS: cefEPime HCl 2 GM in 0.9 % Sodium Chloride 50 ML IV (03:40)
[2023-10-02 03:42] LABS: B Type Natriuretic Peptide 118 pg/mL (<100)
--- NOTE | 2023-10-02 03:46 | W.PM.CCHP ---
Procedures Date of Service Date of Service: 10/02/23 Central Line Placement Left IJ: Consent for Procedure: Emergent-no informed consent obtained Time out performed: Yes Sterile Technique Used: Yes Patient placed on monitor/pulse ox: Yes MD prep: mask, gown and gloves Central line prep: Chlorhexidine scrub and sterile drapes applied Ultrasound used for placement: Yes Central line lumen inserted: triple (16 cm ) Post procedure: sutured in place, good blood return, all ports aspirated, flushed, capped and sterile dressing applied Post procedure x-ray: tip of catheter in good position and no pneumothorax seen Patient tolerated procedure: well and no complications Complications: none
[2023-10-02 03:51] LABS: Alanine Aminotransferase 37 U/L (0-40); Albumin Level 4.1 g/dL (3.5-5.0); Alkaline Phosphatase 172 U/L (39-117); Anion Gap 19 (12-20); Aspartate Amino Transferase 81 U/L (5-37); Bilirubin Total 0.5 mg/dL (0.0-1.0); Blood Urea Nitrogen 25 mg/dL (9-16); C Reactive Protein 8.05 mg/dL (< or = 0.50); Calcium 9.3 mg/dL (8.4-10.2); Carbon Dioxide 21 mmol/L (22-29); Chloride 100 mmol/L (96-108); Estimated Glomerular Filt Rate 37; Ethanol < 10 mg/dL; Glucose Random 148 mg/dL (60-115); Lipase 32 U/L (8-78); Magnesium 2.1 mg/dL (1.6-2.6); Phosphorus 7.7 mg/dL (2.7-4.5); Potassium 4.1 mmol/L (3.3-5.1); Sodium 136 mmol/L (135-145); Total Protein 8.5 g/dL (6.5-8.0)
[2023-10-02 03:55] LABS: Appearance Urine Cloudy; Color Urine Yellow; Glucose Urine UA 500 mg/dL (Negative); Leukocyte Esterase Urine Negative (Negative); Nitrite Urine Negative (Negative); PH 6.5 (5.0-9.0); UMIC TRIGGER UACC YES; Urine Blood Large (3+) (Negative); Urine Ketones Negative (Negative); Urine Protein 300 (3+) mg/dL (Neg-Trace)
[2023-10-02 03:55] LABS: Lactic Acid 2.9 mmol/L (0.5-2.0)
[2023-10-02 03:56] LABS: Troponin-I High Sensitivity 139.3 ng/L (<3.5-35.0)
[2023-10-02 04:01] LABS: TSH reflex Free T4 0.85 uIU/mL (0.32-4.0)
[2023-10-02 04:03] LABS: Bacteria Urine 1+ (None Seen); Granular Casts Urine Present; Squamous Epithelial Cell Urine 0-2 /HPF (0-2); UACC Culture Trigger YES; WBC Urine 21-50 /HPF (0-5)
[2023-10-02] MEDS: LACTATED RINGERS 2370 ML IV (04:05)
[2023-10-02 04:08] LABS: Amphetamine Screen Urine Not Detected (Not Detect); Barbiturates, Urine Not Detected (Not Detect); Benzodiazepines Screen Urine Not Detected (Not Detect); Cannabinoid Screen Urine POSITIVE (Not Detect); Cocaine Screen Urine Not Detected (Not Detect); Fentanyl, urine Not Detected (Not Detect); Opiate Screen Urine Not Detected (Not Detect); Phencyclidine Screen Urine Not Detected (Not Detect)
[2023-10-02] MEDS: Norepinephrine Bitartrate/D5W 8 MG/250 ML PLAST..BAG 7.41 MG IV (04:15)
[2023-10-02 04:32] LABS: Influenza A PCR POSITIVE (Negative); Influenza B PCR NEGATIVE (Negative); Resp Syncy Virus RNA Qual PCR NEGATIVE (Negative); SARS COV2 PCR INHOUSE NEGATIVE (Negative)
--- NOTE | 2023-10-02 04:36 | P.HPCC_ITS ---
History of Present Illness Date of Service: 10/02/23 Attending physician on admission: Jesenia Malloy Chief Complaint: Acute hypoxic respiratory failure, bilateral lung pneumonia, sepsis Source of history patient's chart HPI:? 62-year-old patient with underlying history of hepatitis-C, COPD, pulmonary nodules, obstructive sleep apnea, HIV on HAART therapy (unknown compliance); ?patient had called 911 complaining of shortness of breath for approximately 2 hours, upon EMS arrival the patient was noted to be talking full sentences but appeared to be in distress, had cyanosis and tachypnea, placed on CPAP but eventually was changed into a bag valve mask at 15 L flow, while in route the patient had become altered and by the time he got into the emergency room the patient appeared to be unresponsive to verbal or painful stimuli, intranasal Narcan had been given (4 mg) without improvement, given the above, the patient was emergently intubated for management of his airway, frothy secretions had been noted in the posterior pharynx.? Due to lack of access a left IO had been placed in the tibial area. During my eval the patient currently on propofol for sedation, Miguel catheter is in place without any urine, due to lack of access no labs are available yet, recommended IV fluids at 30mls/kg and blood cultures, broad-spectrum antibiotics and PCP prophylaxis.? We also discussed the need of [place] CT scans; and after this the patient will be transferred to the ICU for further care. ?So far the patient is normotensive however tachycardic with a heart rate up in the 150-1 60s, per monitor appears to be consistent with SVT, respiratory rate in the high 20s, still borderline hypoxic satting 90% with an FiO2 of 90% on the vent. ROS:? UNABLE TO OBTAIN PATIENT INTUBATED Past Medical History:? As above Past Surgical History:? As above Has scars consistent with previous tracheostomy Left chest scars consistent with chest tube placement and some other type of chest surgery under the left pectoralis muscle area Family history:? Unknown Social History: ?Lives in an apartment with a roommate. ?Unknown other than per chart his known to be a smoker of 30 years; there is no contact information on record other than his own. CODE STATUS:? Full code Allergies:? No known drug allergies Home Medications:? see Med Rec SEPSIS PHYSICAL EXAM done at 330 am : VS:? 135/93, 159, 16, 99% on a vent with the below mentioned settings, temperature 100 degrees F. VENT SETTINGS : ?AC, 20, 420, 8, 90% ? General:? Sedated on a ventilator ? Skin:? Hyperpigmented skin of the bilateral lower extremities, dry, scaly, otherwise Intact, no lesions, edema, erythema, clubbing or cyanosis.? No ulcers. ? HEENT:? Head is normocephalic, atraumatic, pupils pinpointed and nonreactive.? Neck is supple, no JVD or lymphadenopathy, no masses. ? Cardiac:? Tachycardic 140 beats per minute, clear S1 and S2, no S3 gallops, no murmurs, rubs. ? Pulmonary:? Diffuse rhonchi of the bilateral upper and lower lobes, right more than left, no crackles or wheezes. ? ? Abdomen:? Protuberant, positive bowel sounds in all 4 quadrants.? Soft ? Musculoskeletal:? No bony abnormalities, on passive range of motion at the major joints there is no cogwheeling or crepitus, no calf asymmetry or edema of the legs. ? ? Neurologic:? As above otherwise unable to assess ? Vascular:? 2+ pulses upper extremities ?and 1+ lower extremities distally. ?Less than 2nd capillary refill of the upper extremities fingers, and lower extremity toes bilaterally. SIGNIFICANT LABORATORY DATA:? White blood cells 10.6, hemoglobin 12.6, hematocrit 39.9, platelets 190, MCV 72, no left shift, INR 1.1, ABG pH 7.17, pCO2 56, PO2 75, HC03 21, base excess -7.6. Sodium 136, potassium 4.1, chloride 100, carbon dioxide 21, anion gap 19, BUN 25, creatinine 1.84 (previous baseline 1.2) random glucose 148, lactic aci2.9, calcium 9.3, phosphorus 7.7, magnesium 2.1, SAT 81, alk-phos 172, troponin 139. BNP 118, total protein 8.5.? Albumin 4.5, lipase 32, TSH 0.85. As above; urinalysis and urine tox screen and respiratory panel are pending. REVIEW OF IMAGES: Chest x-ray post central line placement shows bilateral infiltrates right more than left, tip of the CVL line in the right atrium.? Tip of the endotracheal tube about 5 cm above the rya.? No pneumothorax. HEAD, CHEST ABDOMEN PELVIS CTS ARE PENDING. EKG REVIEW: To my view this appears to be SVT 100 and 38-140 beats per minute.? There is no ST elevations, no ST depressions.? QTC 434 MS.? No comparison available. ASSESSMENT: 1. Acute hypoxic respiratory failure with hypercapnia r/o CoVID and Influenza 2. Right more than left lung community-acquired pneumonia in an immunocompromised patient, rule out viral vs bacterial PNA including PCP, tuberculosis 3. Acute sepsis without shock due to 2. 4. SVT without hemodynamic instability likely reactive to the above 5. History of HIV and hepatitis-C 6. Mixed blood gas disorder with metabolic and respiratory acidosis 8. Microcytic anemia with MCV of 72, rule out iron deficiency, chronic disease, microscopic bleeding 9. Acute kidney injury with creatinine of 1.84, prior baseline 1.2 10. Mildly elevated troponin, likely stress related, no EKG changes.? Unlikely ACS but will r/o PLAN OF CARE: Patient will be admitted to the ICU, case was discussed in detail with the ER physician, I am not quite certain that the patient does have pulmonary edema, I still think the patient would benefit from bolus IV fluids and this was requested as well as blood cultures, broad-spectrum antibiotics (renally adjusted vancomycin and cefepime); and atovaquone orally in case there is underlying PCP, sputum culture Gram stain, acid-fast bacilli x3, will order HIV viral load, CD4 count, hep C viral count, will need ID consult.? if he becomes hypotensive, albumin and Levophed is to be considered. Central line placed by me in the ER, please see separate procedure. ?If the patient's heart rate does not improve with IV fluids and all the above,? we will cardiovert him for he already received Cardizem and adenosine in the ER. ?Will add CRP, procalcitonin, CRP. ?Will follow up on lactic acid. Maybe that the patient turns out to be a difficult extubation if he was to recover this for his seems to have had previous tracheostomy, chest tube placement, further history is to be obtained. GI PROPHYLAXIS:? IV ppi DVT PROPHYLAXIS: ?Heparin Q 12 hours Critical care time used for critical evaluation of this patient, diagnosis, treatment and coordination of care, review her records and documentation TOTAL CRITICAL CARE TIME??120? MIN . discussion and coordination with consultants, completely separate from any procedures performed. Patient's care was discussed in detail with Dr. Malloy she is aware of all the above as well as the plan of care for this patient. ? [facility] Past Medical History Medical History TERRY (obstructive sleep apnea) Pulmonary nodules Hepatitis C HIV disease COPD (chronic obstructive pulmonary disease) Social History Social History Household Members: Unknown / Unable to assess Housing: Unknown / Unable to assess Patient Tobacco Use Status: Tobacco use Unknown Tobacco use type: Cigarette Cigarette Packs Per Day: 1 Cigarettes Per Day: 4 Years Smoked: 30 Years Substance Use Type: Unknown Meds Allergies Allergy/AdvReac Type Severity Reaction Status Date / Time No Known Allergies Allergy Verified 06/24/23 14:50 [No Known Allergies*] Active Medications: Current Medications Heparin Sodium (Porcine) (Heparin Sodium,Porcine 5,000 Unit/Ml Vial) 5,000 unit SUBCUT Q12H SUSANA Propofol (Diprivan) 1,000 mg in 100 mls @ 0 mls/hr IVCONT .Q0M SUSANA; Protocol Last Admin: 10/02/23 02:28 Dose: 10 mcg/kg/min, 4.74 mls/hr Lactated Ringer's (Lr) 2,370 mls @ 2,370 mls/hr 30 ml/kg infuse over 1 hr (2370 ml) IV .Q1H ONE Stop: 10/02/23 04:37 Last Admin: 10/02/23 04:05 Dose: 2,370 mls/hr Norepinephrine Bitartrate (Levophed) 8 mg in 250 mls @ 0 mls/hr IV .Q0M SUSANA; Protocol Vancomycin HCl 1,000 mg/ (Sodium Chloride) 270 mls @ 270 mls/hr IV ONCE ONE Stop: 10/02/23 05:29 Vancomycin HCl 1,000 mg/ (Sodium Chloride) 270 mls @ 270 mls/hr IV ONCE ONE Stop: 10/02/23 06:29 Pantoprazole Sodium (Pantoprazole Sodium 40 Mg/10 Ml Vial) 40 mg IVPUSH DAILY ONE Stop: 10/02/23 06:31 Pharmacy Consult (Consult Rx Vancomycin Dosing) 1 each MISCELLANE DAILY PRN PRN Reason: Consult order Home Medications Medication Instructions Recorded Confirmed Last Taken Type bictegravir 50 mg-emtricitabine 1 tab PO DAILY 04/24/22 10/02/23 Unknown History 200 mg-tenofovir alafenam 25 mg tablet (Biktarvy) montelukast 10 mg tablet 10 mg PO BEDTIME 04/24/22 10/02/23 Unknown History nebulizers 08/14/22 Unknown History dapagliflozin propanediol 10 mg 10 mg PO DAILY 10/30/22 10/02/23 Unknown History tablet (Farxiga) furosemide 40 mg tablet 40 mg PO DAILY 10/30/22 10/02/23 Unknown History spironolactone 25 mg tablet 12.5 mg PO DAILY 11/13/22 10/02/23 Unknown History atorvastatin 40 mg tablet 40 mg PO BEDTIME 04/30/23 10/02/23 Unknown History sacubitril 49 mg-valsartan 51 mg 1 tab PO BID 04/30/23 10/02/23 Unknown History tablet (Entresto) cholecalciferol (vitamin D3) 1,250 1,250 mcg PO QWEEK 10/02/23 10/02/23 Unknown History mcg (50,000 unit) capsule Physical Exam 2 Vital Signs: Vital Signs: Last Vital Signs Temp 100 F 10/02/23 03:00 Pulse 159 H 10/02/23 02:23 Resp 16 10/02/23 02:23 BP 135/93 H 10/02/23 02:23 Pulse Ox 99 10/02/23 02:23 O2 Del Method Room Air, Mechani smooth Ventilation 10/02/23 02:23 FiO2 90 10/02/23 02:20 BMI result Body Mass Index 25.7 Results Labs 10/02/23 22:52 10/02/23 11:17 Labs: Laboratory Results - last 24 hr 10/02/23 10/02/23 10/02/23 02:58 03:11 03:12 MCV 72.0 L MCH 22.7 L MCHC 31.6 RDW 15.3 Plt Count 190 MPV 10.1 Immature Gran % (Auto) 0.5 H Neut % (Auto) 75.6 H Lymph % (Auto) 16.7 L [place] % (Auto) 7.0 Eos % (Auto) 0.0 Baso % (Auto) 0.2 Lymph # (Auto) 1.8 [place] # (Auto) 0.7 Eos # (Auto) 0.0 Baso # (Auto) 0.0 Abs Immat Gran (auto) 0.05 H Absolute Neuts (auto) 8.0 Absolute Nucleated RBC 0.020 H Nucleated RBC % (auto) 0.2 PT 13.4 H INR 1.1 APTT 26.5 O2 Saturation 88.0 ABG pH at Pt Temp 7.17 L* ABG pCO2 at Pt Temp 56 H ABG pO2 at Pt Temp 75 L ABG HCO3 21 L ABG Base Excess (Actual) -7.6 Anion Gap 19 Estim Creat Clear Calc 41.0 Estimated GFR 37 Random Glucose 148 H Lactic Acid 2.9 H* Calcium 9.3 Phosphorus 7.7 H Magnesium 2.1 Total Bilirubin 0.5 AST 81 H ALT 37 Alkaline Phosphatase 172 H Troponin I High Sens 139.3 H* C-Reactive Protein 8.05 H B-Natriuretic Peptide 118 H Total Protein 8.5 H Albumin 4.1 Lipase 32 Procalcitonin 0.10 TSH 0.85 Urine Color Urine Appearance Urine pH Ur Specific [place] Urine Protein Urine Glucose (UA) Urine Ketones Urine Blood Urine Nitrite Ur Leukocyte Esterase Urine RBC Urine WBC Ur Squamous Epith Cells Urine Bacteria Hyaline Casts Granular Casts Urine Opiates Screen Urine Fentanyl Screen Ur Barbiturates Screen Ur Phencyclidine Scrn Ur Amphetamines Screen U Benzodiazepines Scrn Urine Cocaine Screen U Marijuana (THC) Screen Ethyl Alcohol < 10 Influenza Type A (PCR) Influenza Type B (PCR) RSV RNA Qual (PCR) SARS-CoV-2 RNA (RT-PCR) 10/02/23 10/02/23 03:44 03:45 MCV MCH MCHC RDW Plt Count MPV Immature Gran % (Auto) Neut % (Auto) Lymph % (Auto) [place] % (Auto) Eos % (Auto) Baso % (Auto) Lymph # (Auto) [place] # (Auto) Eos # (Auto) Baso # (Auto) Abs Immat Gran (auto) Absolute Neuts (auto) Absolute Nucleated RBC Nucleated RBC % (auto) PT INR APTT O2 Saturation ABG pH at Pt Temp ABG pCO2 at Pt Temp ABG pO2 at Pt Temp ABG HCO3 ABG Base Excess (Actual) Anion Gap Estim Creat Clear Calc Estimated GFR Random Glucose Lactic Acid Calcium Phosphorus Magnesium Total Bilirubin AST ALT Alkaline Phosphatase Troponin I High Sens C-Reactive Protein B-Natriuretic Peptide Total Protein Albumin Lipase Procalcitonin TSH Urine Color Yellow Urine Appearance Cloudy Urine pH 6.5 Ur Specific [place] 1.020 Urine Protein 300 (3+) H Urine Glucose (UA) 500 H Urine Ketones Negative Urine Blood Large (3+) H Urine Nitrite Negative Ur Leukocyte Esterase Negative Urine RBC 6-10 H Urine WBC 21-50 H Ur Squamous Epith Cells 0-2 Urine Bacteria 1+ Hyaline Casts 11-20 Granular Casts Present Urine Opiates Screen Not Detected Urine Fentanyl Screen Not Detected Ur Barbiturates Screen Not Detected Ur Phencyclidine Scrn Not Detected Ur Amphetamines Screen Not Detected U Benzodiazepines Scrn Not Detected Urine Cocaine Screen Not Detected U Marijuana (THC) Screen POSITIVE H Ethyl Alcohol Influenza Type A (PCR) POSITIVE A Influenza Type B (PCR) NEGATIVE RSV RNA Qual (PCR) NEGATIVE SARS-CoV-2 RNA (RT-PCR) NEGATIVE Imaging Radiologist's Impressions: Impressions Chest X-Ray 10/02/23 02:37 IMPRESSION: Endotracheal tube and gastric tube in good position. Diffuse bilateral lung opacities/infiltrates, more pronounced on the right. An infectious process suspected. A component of edema considered. Chest X-Ray 10/02/23 03:56 IMPRESSION: 1. Interval placement of left approach central line with tip at the mid SVC. No pneumothorax. 2. Gastric tube extends below the diaphragm, the tip of the tube is not seen.
[2023-10-02] MEDS: Heparin Sodium,Porcine 5,000 UNIT/ML VIAL 5000 UNIT SUBCUT ×2 (05:03→16:27)
[2023-10-02] MEDS: vancomycin HCL 1,000 MG in 0.9 % Sodium Chloride 250 ML 270 MG IV ×2 (05:07→06:52)
[2023-10-02 05:20] LABS: Reflex Lactate? Lactic Acid Added
[2023-10-02] MEDS: Pantoprazole Sodium 40 MG/10 ML VIAL IVPUSH ×2 (05:30→13:32)
[2023-10-02] MEDS: Albuterol/Iprat 2.5/0.5MG 3 ML AMPUL.NEB INHALE ×4 (06:01→23:27)
[2023-10-02 06:02] LABS: Troponin-I High Sensitivity 1908.2 ng/L (<3.5-35.0)
[2023-10-02 06:40] LABS: ~Lactic Acid-LAB USE ONLY 1.3 mmol/L (0.5-2.0)
--- NOTE | 2023-10-02 07:08 | PC.NURSE ---
0430- This RN called ICU and asked if YOBANI Linda wanted patient to go to ICU after he went to CT. Per Alexei pt can not go to ICU until scans have been read and pt had not officially been accepted yet. Ptstarted on levophed and given per protocol. Spoke to Alexei at 0500 BP 91/61(67) HR119. Per Alexei increase levophed gtt to 0.5mcg/kg/min. PT given meds. This RN called to request Imaging read CT scans per Alexei at 0545. Once transfer orders put in pt brought down to ICU by this RN and RT's.
[2023-10-02] MEDS: Vasopressin 20 UNIT/100 ML INFUS..BTL 6 UNIT IVCONT ×2 (07:20→19:22)
[2023-10-02] MEDS: HYDROmorphone HCl 1 MG/ML SYRINGE IVPUSH (07:40)
[2023-10-02] MEDS: Aspirin 325 MG TABLET PO (07:50)
[2023-10-02] MEDS: Oseltamivir Phosphate 75 MG CAPSULE PO (07:50)
[2023-10-02] MEDS: propofoL 1,000 MG/100 ML VIAL 18.96 MG IVCONT (07:51)
--- NOTE | 2023-10-02 08:00 | ECG_ITS ---
Test Reason : elevated trop Blood Pressure : / mmHG Vent. Rate : 111 BPM Atrial Rate : 111 BPM P-R Int : 208 ms QRS Dur : 070 ms QT Int : 312 ms P-R-T Axes : 092 048 103 degrees QTc Int : 424 ms Sinus tachycardia Low voltage QRS Cannot rule out Anteroseptal infarct (cited on or before 12-JAN-2014) T wave abnormality, consider lateral ischemia Abnormal ECG When compared with ECG of 02-OCT-2023 03:38, Questionable change in initial forces of Septal leads Nonspecific T wave abnormality now evident in Inferior leads T wave inversion now evident in Anterior leads Referred By: Alexei Richter Electronically Signed By:DANII ZENDEJAS MD
[2023-10-02] MEDS: Norepinephrine Bitartrate/D5W 8 MG/250 ML PLAST..BAG 74.06 MG IV (08:02)
[2023-10-02] MEDS: Hydrocortisone Sod Succ/PF 100 MG VIAL 50 MG IVPUSH ×3 (08:03→19:25)
[2023-10-02] MEDS: Atovaquone 750 MG/5 ML ORAL.SUSP PO ×2 (08:04→21:37)
[2023-10-02 08:09] LABS: Glucose, Whole Blood 152 mg/dL (60-115)
--- NOTE | 2023-10-02 10:56 | PHA.MEDREC ---
Pharmacy Consult ? Medication Reconciliation Pharmacy has completed the medication reconciliation. Patient intubated, so cannot speak to patient to confirm meds. Patient does not have contacts as well, so completed med rec based off claim history and by calling patient's pharmacy. Per patient's pharmacy, patient no longer on propanolol or the albuterol nebulizer (Last picked up 2021). Left carvedilol 6.25 BID off med rec as well because the pharmacy stated the prescription had no more refills and was last filled for a 30DS in July 2023.
[2023-10-02 11:22] LABS: MANUAL DIFF FLAG NO
[2023-10-02 11:24] LABS: Basophils Percent Auto 0.2 % (0-2); Hematocrit 36.9 % (42.0-52.0); Hemoglobin 11.7 g/dl (14.0-18.0); Imm Gran Pct Auto 0.6 % (0.0-0.4); Lymphocytes Absolute Auto 0.7 X10*3/uL (1.2-4.9); Lymphocytes Percent Auto 4.1 % (20-40); Mean Corpuscular HGB Conc 31.7 g/dl (31.0-36.0); Mean Corpuscular Hemoglobin 22.9 pg (27.0-33.0); Mean Corpuscular Volume 72.1 fL (80.0-98.0); Mean Platelet Volume 9.8 fL (9.4-12.4); Monocytes Absolute Auto 1.4 X10*3/uL (0.1-1.2); NRBC Pct Auto 0.3 /100WBC (0.0-0.2); Neutrophils Absolute Auto 13.5 x10*3/uL (2.0-8.3); Neutrophils Percent Auto 86.1 % (45-73); Platelet Count 186 X10*3/uL (160-400); Red Blood Count 5.12 X10*6/uL (4.60-5.80); Red Cell Distribution Width 15.4 % (11.0-16.0); White Blood Count 15.7 X10*3/uL (4.8-10.8)
[2023-10-02 11:25] LABS: Venous Blood Gas Refer to POC result
[2023-10-02 11:28] LABS: VBG Base Excess -1.2 mmol/L; VBG HCO3 24 mmol/L (22-26); VBG pCO2 45 mmHg; VBG pH 7.33 (7.32-7.43); VBG pO2 63 mmHg
[2023-10-02 11:39] LABS: Alanine Aminotransferase 40 U/L (0-40); Albumin Level 3.1 g/dL (3.5-5.0); Alkaline Phosphatase 143 U/L (39-117); Anion Gap 17 (12-20); Aspartate Amino Transferase 69 U/L (5-37); Bilirubin Total 0.8 mg/dL (0.0-1.0); Blood Urea Nitrogen 31 mg/dL (9-16); Calcium 7.9 mg/dL (8.4-10.2); Carbon Dioxide 24 mmol/L (22-29); Chloride 99 mmol/L (96-108); Cholesterol 99 mg/dL (<200); Creatinine Clr Calc Pharmacy 35.5; Estimated Glomerular Filt Rate 33; Glucose Random 230 mg/dL (60-115); HDL Cholesterol 44 mg/dL (>40); LDL Cholesterol Calculated 42 mg/dL (<100); Potassium 4.7 mmol/L (3.3-5.1); Sodium 135 mmol/L (135-145); Total Protein 6.5 g/dL (6.5-8.0); Triglycerides 69 mg/dL (<150)
[2023-10-02] MEDS: Norepinephrine Bitartrate/D5W 8 MG/250 ML PLAST..BAG 65.18 MG IV (11:42)
[2023-10-02 11:57] LABS: Estimated Average Glucose 111 mg/dL; Hemoglobin A1c % 5.5 % (<6.0)
[2023-10-02] MEDS: Calcium Chloride 1 GM/10 ML SYRINGE IVPUSH (13:08)
[2023-10-02] MEDS: Albumin Human 25 % 50 ML 100 ML IV (13:08)
[2023-10-02 13:16] LABS: Glucose, Whole Blood 231 mg/dL (60-115)
[2023-10-02] MEDS: Acetaminophen 1,000 MG/100 ML PIGGYBACK 400 MG IV (13:21)
[2023-10-02] MEDS: Insulin Lispro 100 UNIT/ML 3 ML VIAL SUBCUT ×2 (13:32→18:37)
--- NOTE | 2023-10-02 14:42 | MHC.CM.PN ---
[facility] PT HAS NO CONTACTS OR HCP LISTED IN MEDICAL RECORDS, PT HAD CALLED [phone] HIMSELF HOWEVER NOW UNABLE TO PARTICIPATE. CM CALLED # LISTED UNDER HOME NUMBER HOWEVER IT IS A RESIDENTIAL PROGRAM AND PT IS NOT A RESIDENT THERE PER STAFF. IMM WILL BE DELIVERED TO BEDSIDE, CM ALSO UNABLE TO COMPLETE A PARTIAL CM ASSESSMENT D/T RESTRICTIONS IN PROGRAM. CM WILL REVISIT TOMORROW 10/03 TO SEE IF PT IS ABLE TO PARTICIPATE AND CONT TO FOLLOW.
[2023-10-02] MEDS: propofoL 1,000 MG/100 ML VIAL 9.48 MG IVCONT (14:54)
[2023-10-02] MEDS: Norepinephrine Bitartrate/D5W 8 MG/250 ML PLAST..BAG 35.55 MG IV (16:26)
[2023-10-02 18:21] LABS: Glucose, Whole Blood 244 mg/dL (60-115)
[2023-10-02] MEDS: Atorvastatin Calcium 40 MG TABLET PO (21:37)
[2023-10-02] MEDS: Oseltamivir Phosphate 30 MG CAPSULE PO (21:37)
[2023-10-02] MEDS: propofoL 1,000 MG/100 ML VIAL 14.22 MG IVCONT (22:03)
[2023-10-02 22:58] LABS: MANUAL DIFF FLAG NO
[2023-10-02 23:01] LABS: Venous Blood Gas Refer to POC result
[2023-10-02 23:01] LABS: VBG Base Excess 0.3 mmol/L; VBG HCO3 25 mmol/L (22-26); VBG pCO2 40 mmHg; VBG pH 7.39 (7.32-7.43); VBG pO2 42 mmHg
[2023-10-02 23:02] LABS: Basophils Percent Auto 0.1 % (0-2); Eosinophils Percent Auto 0.1 % (0-4); Hematocrit 35.6 % (42.0-52.0); Hemoglobin 11.4 g/dl (14.0-18.0); Imm Gran Abs Auto 0.08 X10*3/uL (0.00-0.03); Imm Gran Pct Auto 0.6 % (0.0-0.4); Lymphocytes Absolute Auto 0.8 X10*3/uL (1.2-4.9); Lymphocytes Percent Auto 5.4 % (20-40); Mean Corpuscular Hemoglobin 22.7 pg (27.0-33.0); Mean Corpuscular Volume 70.9 fL (80.0-98.0); Mean Platelet Volume 10.1 fL (9.4-12.4); Monocytes Absolute Auto 1.1 X10*3/uL (0.1-1.2); Monocytes Percent Auto 7.9 % (2-11); Neutrophils Absolute Auto 12.3 x10*3/uL (2.0-8.3); Neutrophils Percent Auto 85.9 % (45-73); Platelet Count 170 X10*3/uL (160-400); Red Blood Count 5.02 X10*6/uL (4.60-5.80); Red Cell Distribution Width 15.1 % (11.0-16.0); White Blood Count 14.3 X10*3/uL (4.8-10.8)
[2023-10-03] VITALS (46 sets, daily range): BP systolic 97–138; BP diastolic 48–105; PULSE 91–115; RESP 13–27; TEMP 34.9–38.4; O2SAT 88–97; BMI 22.2
[2023-10-03 00:54] LABS: Alanine Aminotransferase 38 U/L (0-40); Albumin Level 3.1 g/dL (3.5-5.0); Alkaline Phosphatase 112 U/L (39-117); Anion Gap 16 (12-20); Aspartate Amino Transferase 74 U/L (5-37); Bilirubin Total 0.6 mg/dL (0.0-1.0); Blood Urea Nitrogen 34 mg/dL (9-16); Calcium 9.1 mg/dL (8.4-10.2); Carbon Dioxide 22 mmol/L (22-29); Chloride 99 mmol/L (96-108); Creatinine Clr Calc Pharmacy 35.5; Estimated Glomerular Filt Rate 33; Glucose Random 181 mg/dL (60-115); Potassium 4.3 mmol/L (3.3-5.1); Sodium 133 mmol/L (135-145); Total Protein 6.3 g/dL (6.5-8.0)
[2023-10-03] MEDS: Insulin Lispro 100 UNIT/ML 3 ML VIAL SUBCUT ×4 (00:55→17:33)
[2023-10-03] MEDS: Hydrocortisone Sod Succ/PF 100 MG VIAL 50 MG IVPUSH ×4 (01:04→19:54)
[2023-10-03] MEDS: Norepinephrine Bitartrate/D5W 8 MG/250 ML PLAST..BAG 26.66 MG IV (01:10)
[2023-10-03] MEDS: Albumin Human 25 % 100 ML 133.33 ML IV ×2 (02:53→03:39)
[2023-10-03] MEDS: Heparin Sodium,Porcine 5,000 UNIT/ML VIAL 5000 UNIT SUBCUT ×2 (03:41→16:28)
[2023-10-03] MEDS: Albuterol/Iprat 2.5/0.5MG 3 ML AMPUL.NEB INHALE ×3 (04:39→23:30)
[2023-10-03] MEDS: propofoL 1,000 MG/100 ML VIAL 14.22 MG IVCONT ×4 (05:23→22:01)
[2023-10-03 05:42] LABS: Glucose, Whole Blood 156 mg/dL (60-115)
[2023-10-03] MEDS: Pantoprazole Sodium 40 MG/10 ML VIAL IVPUSH (05:43)
[2023-10-03 06:23] LABS: VBG Base Excess 1.1 mmol/L; VBG HCO3 25 mmol/L (22-26); VBG pCO2 36 mmHg; VBG pH 7.43 (7.32-7.43); VBG pO2 40 mmHg
[2023-10-03 06:26] LABS: Venous Blood Gas Refer to POC result
--- NOTE | 2023-10-03 06:40 | PC.NURSE ---
Patient with mustard yellow emesis this am. OGT placed on YOBANI SHAFFER notified.
[2023-10-03 06:45] LABS: MANUAL DIFF FLAG NO
[2023-10-03 07:05] LABS: Anion Gap 18 (12-20); Blood Urea Nitrogen 34 mg/dL (9-16); Calcium 8.8 mg/dL (8.4-10.2); Carbon Dioxide 22 mmol/L (22-29); Chloride 98 mmol/L (96-108); Creatinine Clr Calc Pharmacy 36.7; Estimated Glomerular Filt Rate 34; Glucose Random 152 mg/dL (60-115); Magnesium 1.9 mg/dL (1.6-2.6); Phosphorus 2.9 mg/dL (2.7-4.5); Potassium 4.6 mmol/L (3.3-5.1); Sodium 133 mmol/L (135-145)
[2023-10-03 07:16] LABS: Basophils Percent Auto 0.1 % (0-2); Hematocrit 32.6 % (42.0-52.0); Hemoglobin 10.5 g/dl (14.0-18.0); Imm Gran Abs Auto 0.03 X10*3/uL (0.00-0.03); Imm Gran Pct Auto 0.3 % (0.0-0.4); Lymphocytes Absolute Auto 0.8 X10*3/uL (1.2-4.9); Lymphocytes Percent Auto 6.8 % (20-40); Mean Corpuscular HGB Conc 32.2 g/dl (31.0-36.0); Mean Corpuscular Hemoglobin 22.6 pg (27.0-33.0); Mean Corpuscular Volume 70.3 fL (80.0-98.0); Monocytes Absolute Auto 0.9 X10*3/uL (0.1-1.2); NRBC Pct Auto 0.3 /100WBC (0.0-0.2); Neutrophils Absolute Auto 9.8 x10*3/uL (2.0-8.3); Neutrophils Percent Auto 84.8 % (45-73); Platelet Count 127 X10*3/uL (160-400); Red Blood Count 4.64 X10*6/uL (4.60-5.80); Red Cell Distribution Width 14.7 % (11.0-16.0); White Blood Count 11.6 X10*3/uL (4.8-10.8)
--- NOTE | 2023-10-03 07:18 | PHA.PROG ---
Admission Date/Time: October 02, 2023 04:08 Indication: SEPSIS Weight in k.3 kg Adjusted body weight in Kg: [place] body weight in Kg: Obesity Dosing Indication % IBW: 22.2 Serum Creatinine - Last 168 Hours 10/02/23 10/02/23 10/02/23 03:11 11:17 23:34 Creatinine 1.84 H 2.06 H 2.06 H 10/03/23 06:19 Creatinine 1.99 H Estimated CrCl and GFR - Last 168 Hours 10/02/23 10/02/23 10/02/23 03:11 11:17 23:34 Estim Creat Clear Calc 41.0 35.5 35.5 Estimated GFR 37 33 33 10/03/23 06:19 Estim Creat Clear Calc 36.7 Estimated GFR 34 Vancomycin Loading Dose: 2000 MG Current Vancomycin Dosing Regimen: 1000 MG Q24 Vancomycin Monitoring using AUC goal of 400 - 600 range with trough as surrogate marker: 1203 Date and Time for next Vancomycin Level to be drawn: 10/03/23 @1999 Pharmacist Comments on Vancomycin Plan: AFTER ONLY GETTING 2 GM LOAD PT LEVEL IS 16.0, BUT THIS WAS DRAWN WHILE THE LOAD WAS INFUSING. WILL TIME 1 GM FOR 2199 AND GET ANOTHER LEVEL @1999 TO ENSURE WE ARE NOT GIVING TOO HIGH OF A DOSE. WILL REEVALUATE AT THAT TIME. Vancomycin dosing will take advantage of [employer] as a clinical decision support tool that uses Bayesian modeling to calculate individual patient's pharmacokinetic parameters and forecast the patient's drug concentration time course with the target goal AUC 24 range of 400 - 600 mg/L/hr.
--- NOTE | 2023-10-03 07:33 | P.PNCC_ITS ---
Subjective Subjective Date of Service: 10/03/23 Interval History: no significant overnight events Critical Care Time (minutes): 90 Physical Exam 2 Vital Signs: Vital Signs: Last Vital Signs Temp 100.8 F H 10/03/23 06:58 Pulse 112 H 10/03/23 07:15 Resp 17 10/03/23 06:58 BP 123/96 H 10/03/23 07:15 Pulse Ox 90 L 10/03/23 06:58 O2 Del Method Mechanical Ventil ation 10/03/23 06:58 FiO2 40 10/03/23 06:58 BMI result Body Mass Index 22.2 Const: Other: intubated, sedated; no acute distress HEENT: Head: Yes normal to inspection, Yes normocephalic and Yes atraumatic Eyes: General: appearance normal, both eyes and all related structures Neck: Neck: Yes normal visual inspection, Yes full ROM, Yes no meningeal signs and Yes supple Chest: Chest palpation & inspection: normal inspection of the chest Resp: Other: no appreciable rales, rhonchi, wheezing Effort & Inspection: normal respiratory effort Cardio: Rate: tachycardic Rhythm: regular rhythm GI: Other: hypoactive bowel sounds Inspection: Yes normal to inspection, No Abdominal wall edema and No distended Palpation (GI): Soft to palpation, not firm, nontender, no guarding and not rigid : Male General Exam: Yes normal external exam Skin: General skin exam: no rashes or lesions noted Neuro: General: tone normal, moves all extremities, no meningeal signs and no focal motor deficits Extrem: General: Yes normal to inspection, Yes capillary refill normal and Yes no clubbing, cyanosis or edema Psych: Other: unable to assess Objective Data Labs 10/03/23 06:19 10/03/23 06:19 Labs: Laboratory Results - last 24 hr 10/02/23 10/02/23 10/02/23 08:03 08:45 11:17 WBC 15.7 H RBC 5.12 Hgb 11.7 L Hct 36.9 L MCV 72.1 L MCH 22.9 L MCHC 31.7 RDW 15.4 Plt Count 186 MPV 9.8 Immature Gran % (Auto) 0.6 H Neut % (Auto) 86.1 H Lymph % (Auto) 4.1 L [place] % (Auto) 9.0 Eos % (Auto) 0.0 Baso % (Auto) 0.2 Lymph # (Auto) 0.7 L [place] # (Auto) 1.4 H Eos # (Auto) 0.0 Baso # (Auto) 0.0 Abs Immat Gran (auto) 0.10 H Absolute Neuts (auto) 13.5 H Absolute Nucleated RBC 0.040 H Nucleated RBC % (auto) 0.3 H Hold Purple Top VBG pH VBG pCO2 VBG pO2 VBG HCO3 VBG O2 Saturation VBG Base Excess Sodium 135 Potassium 4.7 Chloride 99 Carbon Dioxide 24 Anion Gap 17 BUN 31 H Creatinine 2.06 H Estim Creat Clear Calc 35.5 Estimated GFR 33 POC Glucose 152 H Random Glucose 230 H Estimat Average Glucose 111 Hemoglobin A1c % 5.5 Calcium 7.9 L D Phosphorus Magnesium Total Bilirubin 0.8 AST 69 H ALT 40 Alkaline Phosphatase 143 H Troponin I High Sens 7507.3 H* D Total Protein 6.5 Albumin 3.1 L Triglycerides 69 Cholesterol 99 LDL Cholesterol, Calc 42 HDL Cholesterol 44 Random Vancomycin 10/02/23 10/02/23 10/02/23 11:21 13:11 13:17 WBC RBC Hgb Hct MCV MCH MCHC RDW Plt Count MPV Immature Gran % (Auto) Neut % (Auto) Lymph % (Auto) [place] % (Auto) Eos % (Auto) Baso % (Auto) Lymph # (Auto) [place] # (Auto) Eos # (Auto) Baso # (Auto) Abs Immat Gran (auto) Absolute Neuts (auto) Absolute Nucleated RBC Nucleated RBC % (auto) Hold Purple Top VBG pH 7.33 VBG pCO2 45 VBG pO2 63 VBG HCO3 24 VBG O2 Saturation 89.0 VBG Base Excess -1.2 Sodium Potassium Chloride Carbon Dioxide Anion Gap BUN Creatinine Estim Creat Clear Calc Estimated GFR POC Glucose 231 H Random Glucose Estimat Average Glucose Hemoglobin A1c % Calcium Phosphorus Magnesium Total Bilirubin AST ALT Alkaline Phosphatase Troponin I High Sens 9086.1 H* Total Protein Albumin Triglycerides Cholesterol LDL Cholesterol, Calc HDL Cholesterol Random Vancomycin 10/02/23 10/02/23 10/02/23 18:14 19:14 22:52 WBC 14.3 H RBC 5.02 Hgb 11.4 L Hct 35.6 L MCV 70.9 L MCH 22.7 L MCHC 32.0 RDW 15.1 Plt Count 170 MPV 10.1 Immature Gran % (Auto) 0.6 H Neut % (Auto) 85.9 H Lymph % (Auto) 5.4 L [place] % (Auto) 7.9 Eos % (Auto) 0.1 Baso % (Auto) 0.1 Lymph # (Auto) 0.8 L [place] # (Auto) 1.1 Eos # (Auto) 0.0 Baso # (Auto) 0.0 Abs Immat Gran (auto) 0.08 H Absolute Neuts (auto) 12.3 H Absolute Nucleated RBC 0.000 Nucleated RBC % (auto) 0.0 Hold Purple Top SEE NOTE VBG pH VBG pCO2 VBG pO2 VBG HCO3 VBG O2 Saturation VBG Base Excess Sodium Potassium Chloride Carbon Dioxide Anion Gap BUN Creatinine Estim Creat Clear Calc Estimated GFR POC Glucose 244 H Random Glucose Estimat Average Glucose Hemoglobin A1c % Calcium Phosphorus Magnesium Total Bilirubin AST ALT Alkaline Phosphatase Troponin I High Sens 69160.6 H* 9815.5 H* Total Protein Albumin Triglycerides Cholesterol LDL Cholesterol, Calc HDL Cholesterol Random Vancomycin 10/02/23 10/02/23 10/03/23 22:55 23:34 05:38 WBC RBC Hgb Hct MCV MCH MCHC RDW Plt Count MPV Immature Gran % (Auto) Neut % (Auto) Lymph % (Auto) [place] % (Auto) Eos % (Auto) Baso % (Auto) Lymph # (Auto) [place] # (Auto) Eos # (Auto) Baso # (Auto) Abs Immat Gran (auto) Absolute Neuts (auto) Absolute Nucleated RBC Nucleated RBC % (auto) Hold Purple Top VBG pH 7.39 VBG pCO2 40 VBG pO2 42 VBG HCO3 25 VBG O2 Saturation 65.0 VBG Base Excess 0.3 Sodium 133 L Potassium 4.3 Chloride 99 Carbon Dioxide 22 Anion Gap 16 BUN 34 H Creatinine 2.06 H Estim Creat Clear Calc 35.5 Estimated GFR 33 POC Glucose 156 H Random Glucose 181 H Estimat Average Glucose Hemoglobin A1c % Calcium 9.1 D Phosphorus Magnesium Total Bilirubin 0.6 AST 74 H ALT 38 Alkaline Phosphatase 112 Troponin I High Sens Total Protein 6.3 L Albumin 3.1 L Triglycerides Cholesterol LDL Cholesterol, Calc HDL Cholesterol Random Vancomycin 10/03/23 10/03/23 06:16 06:19 WBC 11.6 H RBC 4.64 Hgb 10.5 L Hct 32.6 L MCV 70.3 L MCH 22.6 L MCHC 32.2 RDW 14.7 Plt Count 127 L D MPV 11.0 Immature Gran % (Auto) 0.3 Neut % (Auto) 84.8 H Lymph % (Auto) 6.8 L [place] % (Auto) 8.0 Eos % (Auto) 0.0 Baso % (Auto) 0.1 Lymph # (Auto) 0.8 L [place] # (Auto) 0.9 Eos # (Auto) 0.0 Baso # (Auto) 0.0 Abs Immat Gran (auto) 0.03 Absolute Neuts (auto) 9.8 H Absolute Nucleated RBC 0.030 H Nucleated RBC % (auto) 0.3 H Hold Purple Top VBG pH 7.43 VBG pCO2 36 VBG pO2 40 VBG HCO3 25 VBG O2 Saturation 64.0 VBG Base Excess 1.1 Sodium 133 L Potassium 4.6 Chloride 98 Carbon Dioxide 22 Anion Gap 18 BUN 34 H Creatinine 1.99 H Estim Creat Clear Calc 36.7 Estimated GFR 34 POC Glucose Random Glucose 152 H Estimat Average Glucose Hemoglobin A1c % Calcium 8.8 Phosphorus 2.9 Magnesium 1.9 Total Bilirubin AST ALT Alkaline Phosphatase Troponin I High Sens Total Protein Albumin Triglycerides Cholesterol LDL Cholesterol, Calc HDL Cholesterol Random Vancomycin 16.0 Microbiology Microbiology Results: Microbiology 10/02/23 03:11 Blood - Central Line Blood Culture - Preliminary No growth after 24 hours. 10/02/23 03:11 Blood - Central Line Blood Culture - Preliminary Prelim: GPC Gram Stain only 10/02/23 06:40 Sputum - Suctioned Gram Stain - Final Progress Note: A&P Assessment and plan (1) Acute hypoxic respiratory failure: Status: Acute (2) HIV (human immunodeficiency virus infection): Status: Acute (3) Hepatitis C: Status: Acute (4) COPD (chronic obstructive pulmonary disease): Status: Acute (5) Pneumonia: Status: Acute Plan Patient is a 62 Y M with HIV, HCV, COPD, presenting initially on 10/02 to ED w/ dyspnea, found to have influenza, c/f bacterial super-infection, in acute hypoxic respiratory failure, intubated; ICU course c/b septic shock N: intubated, sedated w/ propofol gtt, wean as tolerated CV: shock, likely septic shock; norepinephrine, vasopressin gtts, wean as tolerated; stress-dose steroids; troponinemia, likely demand, improving R: acute hypoxic respiratory failure, d/t influenza, c/f bacterial super- infection, intubated, wean ventilator as tolerated; to maintain high suspicion for PJP given HIV GI: no acute issues; to consider tube feeds if remains intubated : AMBER, improving; to monitor renal indices H: thrombocytopenia, to monitor ID: c/f septic shock; empiric vancomycin, cefepime; influenza, on tamiflu; atovaquone given HIV E: hyperglycemia, to continue to monitor P: no acute issues Quality Stroke Does the patient have a stroke diagnosis?: No VTE Prior VTE?: No VTE Risk Level:: Medical - moderate - high VTE Device Contraindication: N/A - Device Ordered VTE Drug Contraindication: N/A - Med Ordered
[2023-10-03] MEDS: HYDROmorphone HCl 1 MG/ML SYRINGE IVPUSH (07:34)
[2023-10-03] MEDS: Sulfamethoxazole/Trimethoprim 160 MG in Dextrose 5 % 500 ML 225 MG IV ×2 (08:35→16:29)
[2023-10-03] MEDS: Oseltamivir Phosphate 30 MG CAPSULE PO ×2 (08:40→21:35)
[2023-10-03] MEDS: ondansetron HCL 4 MG/2 ML VIAL IVPUSH (08:40)
[2023-10-03] MEDS: Furosemide 20 MG/2 ML VIAL IVPUSH (08:40)
[2023-10-03] MEDS: Aspirin 81 MG TAB.CHEW PO (08:40)
[2023-10-03] MEDS: vancomycin HCL 1,000 MG in 0.9 % Sodium Chloride 250 ML 270 MG IV (10:58)
[2023-10-03 12:02] LABS: Glucose, Whole Blood 197 mg/dL (60-115)
[2023-10-03] MEDS: Vasopressin 20 UNIT/100 ML INFUS..BTL 6 UNIT IVCONT (12:15)
[2023-10-03] MEDS: Norepinephrine Bitartrate/D5W 8 MG/250 ML PLAST..BAG 14.81 MG IV (13:19)
[2023-10-03 17:24] LABS: Glucose, Whole Blood 210 mg/dL (60-115)
[2023-10-03 21:04] LABS: Vancomycin Random 19.5 mcg/mL (15-20)
[2023-10-03] MEDS: Norepinephrine Bitartrate/D5W 8 MG/250 ML PLAST..BAG 29.63 MG IV (22:05)
[2023-10-03 23:53] LABS: Glucose, Whole Blood 155 mg/dL (60-115)
[2023-10-04] VITALS (43 sets, daily range): BP systolic 82–128; BP diastolic 51–89; PULSE 90–114; RESP 18–34; TEMP 33–39; O2SAT 88–95; BMI 21.7
[2023-10-04] MEDS: Insulin Lispro 100 UNIT/ML 3 ML VIAL SUBCUT ×2 (00:01→16:59)
[2023-10-04] MEDS: Sulfamethoxazole/Trimethoprim 160 MG in Dextrose 5 % 500 ML 225 MG IV ×4 (00:01→23:23)
[2023-10-04] MEDS: Hydrocortisone Sod Succ/PF 100 MG VIAL 50 MG IVPUSH ×2 (02:25→07:39)
[2023-10-04] MEDS: propofoL 1,000 MG/100 ML VIAL 18.96 MG IVCONT ×2 (03:18→08:16)
[2023-10-04] MEDS: Norepinephrine Bitartrate/D5W 8 MG/250 ML PLAST..BAG 25.18 MG IV (03:20)
[2023-10-04] MEDS: Heparin Sodium,Porcine 5,000 UNIT/ML VIAL 5000 UNIT SUBCUT ×2 (03:22→15:31)
[2023-10-04] MEDS: Albuterol/Iprat 2.5/0.5MG 3 ML AMPUL.NEB INHALE ×4 (04:26→23:11)
[2023-10-04 04:40] LABS: VBG Base Excess 5.2 mmol/L; VBG HCO3 28 mmol/L (22-26); VBG pCO2 38 mmHg; VBG pH 7.47 (7.32-7.43); VBG pO2 42 mmHg
[2023-10-04 04:40] LABS: MANUAL DIFF FLAG NO
[2023-10-04 04:41] LABS: Venous Blood Gas Refer to POC result
[2023-10-04 04:42] LABS: Hematocrit 32.8 % (42.0-52.0); Hemoglobin 10.9 g/dl (14.0-18.0); Imm Gran Abs Auto 0.01 X10*3/uL (0.00-0.03); Imm Gran Pct Auto 0.1 % (0.0-0.4); Lymphocytes Absolute Auto 0.4 X10*3/uL (1.2-4.9); Lymphocytes Percent Auto 5.2 % (20-40); Mean Corpuscular HGB Conc 33.2 g/dl (31.0-36.0); Mean Corpuscular Hemoglobin 22.6 pg (27.0-33.0); Mean Corpuscular Volume 67.9 fL (80.0-98.0); Mean Platelet Volume 10.3 fL (9.4-12.4); Monocytes Absolute Auto 0.7 X10*3/uL (0.1-1.2); Monocytes Percent Auto 8.9 % (2-11); NRBC Pct Auto 0.4 /100WBC (0.0-0.2); Neutrophils Absolute Auto 7.1 x10*3/uL (2.0-8.3); Neutrophils Percent Auto 85.8 % (45-73); Platelet Count 142 X10*3/uL (160-400); Red Blood Count 4.83 X10*6/uL (4.60-5.80); Red Cell Distribution Width 14.4 % (11.0-16.0); White Blood Count 8.3 X10*3/uL (4.8-10.8)
[2023-10-04 04:56] LABS: Anion Gap 14 (12-20); Blood Urea Nitrogen 29 mg/dL (9-16); Calcium 9.1 mg/dL (8.4-10.2); Carbon Dioxide 27 mmol/L (22-29); Chloride 97 mmol/L (96-108); Creatinine Clr Calc Pharmacy 42.3; Estimated Glomerular Filt Rate 41; Glucose Random 125 mg/dL (60-115); Magnesium 1.9 mg/dL (1.6-2.6); Phosphorus 1.9 mg/dL (2.7-4.5); Potassium 3.8 mmol/L (3.3-5.1); Sodium 134 mmol/L (135-145)
[2023-10-04] MEDS: Pantoprazole Sodium 40 MG/10 ML VIAL IVPUSH (05:55)
[2023-10-04] MEDS: Potassium Phosphate/NS 15 MMOL/250 ML PLAST..BAG 62.5 MMOL IV ×2 (05:56→10:01)
--- NOTE | 2023-10-04 07:00 | CA_ITS ---
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 The visually estimated ejection fraction is between 35-40%. - LV apex has normal contractility, but otherwise hypokinetic. - No obvious valvular pathology seen on this study. Findings Procedure Information Contrast agent, definity, is being given per protocol without apparent complications. Left Ventricle Normal left ventricular cavity size. There is normal left ventricular wall thickness. The left ventricular systolic function is moderately decreased. The visually estimated ejection fraction is between 35-40%. Evidence suggests grade I (mild) diastolic dysfunction. LV apex has normal contractility, but otherwise hypokinetic. Right Ventricle Normal right ventricular cavity size and systolic function. Atria Both atria are normal in size. Aortic Valve The aortic valve was not well visualized. There is no aortic valve stenosis. There is no aortic valve regurgitation. Mitral Valve The mitral valve appears normal. There is no mitral valve regurgitation. There is no mitral valve stenosis. Pulmonic Valve The pulmonic valve is likely normal. Tricuspid Valve There is trace tricuspid valve regurgitation. There is no evidence of pulmonary hypertension. Great Vessels The aorta was not well visualized. The aortic annulus and sinuses of valsalva are normal in size. Venous The inferior vena cava is mildly dilated and collapses greater than 50% with inspiration. (intubated) Pericardium/Pleural There is no evidence of pericardial effusion. Prior Study Comparison No prior study available for comparison. Recommendations, Care & Conclusions No obvious valvular pathology seen on this study. Measurements 2D Linear Measurements IVSd: 0.88 0.6-0.9/0.6-1.0 cm LVIDd: 5.41 3.9-5.3/4.2-5.9 cm LVIDd Index: 2.99 2.4-3.2/2.2-3.1 cm/m2 LVIDs: 4.52 2.0-3.6 cm LVPWd: 1.16 0.7-1.1 cm Ao Root: 3.00 2.1-3.5 cm LA Diam: 3.50 2.7-3.8/3.0-4.0 cm LAIDs Index: 1.93 1.5-2.3 cm/m2 LV Mass: 265.36 67-162/88-224 g LV Mass Index: 146.61 43-95/49-115 g/m2 LVOT Diam: 2.10 3.0+(-)1.3 cm 2D Systolic Function EF 4C: 46.80 >55% EF 2C: 39.00 >55% EF BiP: 44.90 >55% Mitral Valve MV Pk E: 0.44 MV PK A: 0.56 MV Decel Time: 129.00 E/A: 0.80 E'Lateral: 5.00 E'Medial: 4.35 E/E' Med: 10.00 E/E' Lat: 8.70 PHT: 38.00 MVA PHT: 5.79 Decel Winston: 3.38 Aortic Valve AoV Pk Isaías: 1.04 AoV Mn Isaías: 0.67 AoV VTI: 0.16 AoV Pk Grad: 4.00 Aov Mn Grad: 2.00 ARJUN Cont.VTI: 2.63 LVOT LVOT Pk Isaías: 0.76 LVOT Mn Isaías: 0.51 LVOT VTI: 0.12 LVOT Pk Grad: 2.00 LVOT Mn Grad: 1.00 LVOT Diam: 2.10 LVOT Area: 3.46 Diastolic Function MV Pk E: 0.44 MV Pk A: 0.56 E/A: 0.80 E'Medial: 4.35 E/E' Med: 10.00 E' Laterial: 5.00 E/E' Lat: 8.70 Right Ventricle TAPSE (mm): 24.00 TVS' Isaías: 10.00 Tricuspid Valve TR Pk Isaías: 1.80 TR Pk Grad: 13.00 Great Vessels Aorta Ao Root-2D: 3.00 2.0-3.7 cm Pulmonary Valve PV Pk Isaías: 1.00 Peak PV Grad: 4.00 Updated in Other Vendor System with Status of Final Shaji Arana MD electronically signed on 10/05/2023 5:53:19 AM with status of Final
[2023-10-04 07:05] LABS: Glucose, Whole Blood 132 mg/dL (60-115)
[2023-10-04 09:10] LABS: Vancomycin Random 13.2 mcg/mL (15-20)
[2023-10-04] MEDS: Aspirin 81 MG TAB.CHEW PO (09:36)
[2023-10-04] MEDS: Oseltamivir Phosphate 30 MG CAPSULE PO ×2 (09:36→20:14)
--- NOTE | 2023-10-04 09:41 | PM.CCPN ---
Subjective Subjective Date of Service: 10/04/23 Interval History: 62-year-old gentleman with underlying HIV on HAART, hep C, COPD admitted on 10/02/2023 with acute hypoxic respiratory failure secondary to influenza with superimposed bacterial superinfection requiring intubation, pressor, and ventilatory support No events overnight. Critical Care Time (minutes): 60 Physical Exam Vital Signs: Vital Signs: Last Vital Signs Temp 102.0 F H 10/04/23 09:00 Pulse 111 H 10/04/23 09:00 Resp 26 H 10/04/23 09:00 BP 100/68 10/04/23 09:00 Pulse Ox 93 10/04/23 09:00 O2 Del Method Mechanical Ventil ation 10/04/23 09:00 FiO2 50 10/04/23 09:00 BMI result Body Mass Index 21.7 Const: General: no acute distress and other (Sedated on the vent) Eyes: Sclerae: sclerae normal EOM: EOMs intact bilaterally Neck: Neck: Yes no lymphadenopathy, Yes trachea midline and Yes supple Resp: Auscultation: crackles (Diffuse bilateral) Cardio: Rate: tachycardic Rhythm: regular rhythm Heart sounds: no gallops, no murmurs and no rubs GI: Palpation (GI): Soft to palpation and Other GI palpation findings present ( Nontender) Auscultation: normal bowel sounds Extrem: General: Yes no pedal edema, No clubbing and No cyanosis Objective Data Labs 10/04/23 04:33 10/04/23 04:33 Labs: Laboratory Results - last 24 hr 10/03/23 10/03/23 10/03/23 11:58 17:17 20:14 WBC RBC Hgb Hct MCV MCH MCHC RDW Plt Count MPV Immature Gran % (Auto) Neut % (Auto) Lymph % (Auto) [place] % (Auto) Eos % (Auto) Baso % (Auto) Lymph # (Auto) [place] # (Auto) Eos # (Auto) Baso # (Auto) Abs Immat Gran (auto) Absolute Neuts (auto) Absolute Nucleated RBC Nucleated RBC % (auto) VBG pH VBG pCO2 VBG pO2 VBG HCO3 VBG O2 Saturation VBG Base Excess Sodium Potassium Chloride Carbon Dioxide Anion Gap BUN Creatinine Estim Creat Clear Calc Estimated GFR POC Glucose 197 H 210 H Random Glucose Calcium Phosphorus Magnesium Random Vancomycin 19.5 10/03/23 10/04/23 10/04/23 23:49 04:32 04:33 WBC 8.3 RBC 4.83 Hgb 10.9 L Hct 32.8 L MCV 67.9 L MCH 22.6 L MCHC 33.2 RDW 14.4 Plt Count 142 L MPV 10.3 Immature Gran % (Auto) 0.1 Neut % (Auto) 85.8 H Lymph % (Auto) 5.2 L [place] % (Auto) 8.9 Eos % (Auto) 0.0 Baso % (Auto) 0.0 Lymph # (Auto) 0.4 L [place] # (Auto) 0.7 Eos # (Auto) 0.0 Baso # (Auto) 0.0 Abs Immat Gran (auto) 0.01 Absolute Neuts (auto) 7.1 Absolute Nucleated RBC 0.030 H Nucleated RBC % (auto) 0.4 H VBG pH 7.47 H VBG pCO2 38 VBG pO2 42 VBG HCO3 28 H VBG O2 Saturation 67.0 VBG Base Excess 5.2 Sodium 134 L Potassium 3.8 Chloride 97 Carbon Dioxide 27 Anion Gap 14 BUN 29 H Creatinine 1.68 H Estim Creat Clear Calc 42.3 Estimated GFR 41 POC Glucose 155 H Random Glucose 125 H Calcium 9.1 Phosphorus 1.9 L Magnesium 1.9 Random Vancomycin 10/04/23 10/04/23 06:18 08:49 WBC RBC Hgb Hct MCV MCH MCHC RDW Plt Count MPV Immature Gran % (Auto) Neut % (Auto) Lymph % (Auto) [place] % (Auto) Eos % (Auto) Baso % (Auto) Lymph # (Auto) [place] # (Auto) Eos # (Auto) Baso # (Auto) Abs Immat Gran (auto) Absolute Neuts (auto) Absolute Nucleated RBC Nucleated RBC % (auto) VBG pH VBG pCO2 VBG pO2 VBG HCO3 VBG O2 Saturation VBG Base Excess Sodium Potassium Chloride Carbon Dioxide Anion Gap BUN Creatinine Estim Creat Clear Calc Estimated GFR POC Glucose 132 H Random Glucose Calcium Phosphorus Magnesium Random Vancomycin 13.2 L Microbiology Microbiology Results: Microbiology 10/02/23 06:40 Sputum - Suctioned Gram Stain - Final 10/02/23 06:40 Sputum - Suctioned Sputum Culture - Final 10/02/23 03:11 Blood - Central Line Blood Culture - Preliminary No growth after 48 hours. 10/02/23 06:40 Urine Catheterized - Miguel Catheter Urine Culture - Final No growth. 10/02/23 03:11 Blood - Central Line Blood Culture - Preliminary Prelim: GPC Gram Stain only Progress Note: A&P Assessment and plan (1) Pneumonia: Status: Acute (2) HIV (human immunodeficiency virus infection): Status: Acute (3) Acute hypoxic respiratory failure: Status: Acute (4) Respiratory failure: Status: Acute (5) Hepatitis C: Status: Acute (6) COPD (chronic obstructive pulmonary disease): Status: Acute (7) Influenza: Status: Acute Plan Assessment: 62-year-old gentleman with underlying HIV on HAART, hep C Plan: Neuro: No acute issues. Cardiac: Septic shock, continue to titrate off pressor support as tolerated. Pulmonary: Acute hypoxic respiratory failure secondary to bacterial superinfection of underlying influenza. Now requiring ventilatory support. Continue to titrate off as tolerated. Underlying TERRY. Renal: Acute kidney injury secondary to septic shock. Non oliguric. Improving. Continue to monitor renal indices and urine output. Endo: No acute issues. GI: No acute issues. ID: Bacterial superinfection of underlying influenza a. Continue Tamiflu and broad-spectrum antibiotics. Underlying HIV and hep C. CD4 count is pending. Continue HAART. Heme/Onc: No acute issues. Psych: No acute issues. Miscellaneous: No acute issues. Prophylaxis: Heparin, ppi Diet: Tube feeds Critical care time spent: 60 minutes Quality Stroke Does the patient have a stroke diagnosis?: No VTE Prior VTE?: No VTE Risk Level:: Medical - moderate - high VTE Device Contraindication: N/A - Device Ordered VTE Drug Contraindication: N/A - Med Ordered
--- NOTE | 2023-10-04 09:46 | HE.PHANOTE ---
RE: VANCO DOSING FYI. Two 1000 mg doses were given at 0507 and 0652 (=2000 mg loading dose). Based on trough coming back as 13.2 and elevated sCr (but trending down), continue with 1000 mg q24h. Nex random is scheduled for 10/05/23 @0800.
[2023-10-04] MEDS: vancomycin HCL 1,000 MG in 0.9 % Sodium Chloride 250 ML 270 MG IV (10:01)
--- NOTE | 2023-10-04 10:03 | MHC.CLN ---
PT IS INTUBATED AND SEDATED PT IS CURRENTLY NPO IF TF NEEDED; RECOMMEND PROMOTE AT MAX GOAL RATE 60ML/HR WITH 240ML FREE WATER FLUSHES Q 8 HRS TO PROVIDE 1440KCALS (1940KCALS WITH SEDATION; 29KCALS/KG), 90G PROTEIN (1.35G/KG), 1928ML TOTAL WATER (29ML/KG) MONITOR TOLERANCE, RESIDUALS, AND LYTES SEE ALSO FULL CLINICAL NUTRITION ASSESSMENT
[2023-10-04 10:43] LABS: Absolute CD3 Count 251 cells/uL (840-3060); Absolute CD4 Count 158 cells/uL (490-1740); Absolute CD8 Count 85 cells/uL (180-1170); Absolute Lymphocytes 580 cells/uL (850-3900); CD4 CD8 Ratio 1.85 (0.86-5.00); Percent CD3 Cells 43 % (57-85); Percent CD4 Cells 27 % (30-61); Percent CD8 Cells 15 % (12-42)
[2023-10-04 12:04] LABS: Glucose, Whole Blood 144 mg/dL (60-115)
[2023-10-04] MEDS: propofoL 1,000 MG/100 ML VIAL 23.7 MG IVCONT ×4 (12:10→23:22)
--- NOTE | 2023-10-04 14:59 | MHC.CM.PN ---
Pt continues care in ICU on ventilatory support: no contacts or next of kin information available. Pt to be extubated today - CM to follow once pt is able to communicate to complete assessment and formulate a d/c plan
[2023-10-04] MEDS: Norepinephrine Bitartrate/D5W 8 MG/250 ML PLAST..BAG 19.26 MG IV (15:37)
--- NOTE | 2023-10-04 16:05 | W.PM.IDCN ---
History of Present Illness Data of Consult Service Date: 10/04/23 Requesting physician: Jesenia Malloy Primary Care Provider: Unknown Physician HPI Reason for consult: HIV/AIDS,pneumonia He presents with shortness of breath and cough to ICU. He has been on Biktarvy. His CD4 count is 158. Adherence is unknown as he is vented and I am not sure who his HIV provider is as son doesnt know. He has diffuse infiltrates, some cystic areas and right lung opacities. Patient shows flu positive. Review of Systems Review of Systems: Yes unobtainable due to endotracheal tube PMFSH Past Medical History Medical History Pneumonia TERRY (obstructive sleep apnea) Pulmonary nodules Hepatitis C HIV disease COPD (chronic obstructive pulmonary disease) Family History Family history: reviewed and not pertinent Social History Social History Household Members: Unknown / Unable to assess Housing: Unknown / Unable to assess Patient Tobacco Use Status: Tobacco use Unknown Tobacco use type: Cigarette Cigarette Packs Per Day: 1 Cigarettes Per Day: 4 Years Smoked: 30 Years Substance Use Type: Unknown Meds Allergies Allergy/AdvReac Type Severity Reaction Status Date / Time No Known Allergies Allergy Verified 06/24/23 14:50 [No Known Allergies*] Active Medications: Current Medications Acetaminophen (Acetaminophen Oral Liquid 650 Mg/20.3 Ml Solution) 975 mg PO Q8H PRN PRN Reason: Fever >100.4 Albuterol Sulfate (Albuterol Sulfate (0.083%) 2.5 Mg/3 Ml Vial.Neb) 2.5 mg INHALE Q4H PRN PRN Reason: Wheezing Albuterol/Ipratropium (Albuterol/Iprat 2.5/0.5mg 3 Ml Ampul.Neb) 3 ml INHALE RQ6H SUSANA Last Admin: 10/04/23 11:24 Dose: 3 ml Aspirin (Aspirin 81 Mg Tab.Chew) 81 mg PO DAILY [facility] Last Admin: 10/04/23 09:36 Dose: 81 mg Atorvastatin Calcium (Atorvastatin Calcium 40 Mg Tablet) 40 mg PO BEDTIME [facility] Last Admin: 10/03/23 21:35 Dose: Not Given Dextrose (Dextrose 50 % 25 Gm/50 Ml Syringe) 25 gm IVPUSH Q15M PRN; Protocol PRN Reason: per Hypoglycemia Standing Ord. Furosemide (Furosemide 20 Mg/2 Ml Vial) 20 mg IVPUSH DAILY [facility]; Protocol Last Admin: 10/04/23 09:33 Dose: Not Given Glucose (Glucose Gel 15 Gm Gel..Gram.) 15 gm PO Q15M PRN; Protocol PRN Reason: per Hypoglycemia Standing Ord. Heparin Sodium (Porcine) (Heparin Sodium,Porcine 5,000 Unit/Ml Vial) 5,000 unit SUBCUT Q12H SUSANA Last Admin: 10/04/23 15:31 Dose: 5,000 unit Hydromorphone HCl (Hydromorphone Hcl 1 Mg/Ml Syringe) 1 mg IVPUSH Q2H PRN; Protocol PRN Reason: Pain, Severe (Pain Scale 7-10) Last Admin: 10/03/23 07:34 Dose: 1 mg Propofol (Diprivan) 1,000 mg in 100 mls @ 0 mls/hr IVCONT .Q0M [facility]; Protocol Last Admin: 10/04/23 12:10 Dose: 50 mcg/kg/min, 23.7 mls/hr Norepinephrine Bitartrate (Levophed) 8 mg in 250 mls @ 0 mls/hr IV .Q0M SUSANA; Protocol Last Admin: 10/04/23 15:37 Dose: 0.13 mcg/kg/min, 19.26 mls/hr Vasopressin (Vasostrict) 20 unit in 100 mls @ 6 mls/hr IVCONT .[id number] [facility] Last Infusion: 10/04/23 15:20 Dose: Infused Vancomycin HCl 1,000 mg/ (Sodium Chloride) 270 mls @ 270 mls/hr IV Q24H [facility] Last Infusion: 10/04/23 11:03 Dose: Infused Trimethoprim/Sulfamethoxazole (160 mg/ Dextrose) 510 mls @ 225 mls/hr IV Q8H [facility] Last Admin: 10/04/23 15:31 Dose: 225 mls/hr Insulin Human Lispro (Insulin Lispro 100 Unit/Ml 3 Ml Vial) 0 unit SUBCUT Q6H [facility]; Protocol Last Admin: 10/04/23 12:06 Dose: Not Given Ondansetron HCl (Ondansetron Hcl 4 Mg/2 Ml Vial) 4 mg IVPUSH Q4H PRN PRN Reason: Nausea and Vomiting Last Admin: 10/03/23 08:40 Dose: 4 mg Oseltamivir Phosphate (Oseltamivir Phosphate 30 Mg Capsule) 30 mg PO BID SUSANA Stop: 10/06/23 21:01 Last Admin: 10/04/23 09:36 Dose: 30 mg Pantoprazole Sodium (Pantoprazole Sodium 40 Mg/10 Ml Vial) 40 mg IVPUSH DAILY@0630 [facility] Last Admin: 10/04/23 05:55 Dose: 40 mg Pharmacy Consult (Consult Rx Vancomycin Dosing) 1 each MISCELLANE DAILY PRN PRN Reason: Consult order Home Medications Medication Instructions Recorded Confirmed Last Taken Type bictegravir 50 mg-emtricitabine 1 tab PO DAILY 04/24/22 10/02/23 Unknown History 200 mg-tenofovir alafenam 25 mg tablet (Biktarvy) montelukast 10 mg tablet 10 mg PO BEDTIME 04/24/22 10/02/23 Unknown History nebulizers 08/14/22 Unknown History dapagliflozin propanediol 10 mg 10 mg PO DAILY 10/30/22 10/02/23 Unknown History tablet (Farxiga) furosemide 40 mg tablet 40 mg PO DAILY 10/30/22 10/02/23 Unknown History spironolactone 25 mg tablet 12.5 mg PO DAILY 11/13/22 10/02/23 Unknown History atorvastatin 40 mg tablet 40 mg PO BEDTIME 04/30/23 10/02/23 Unknown History sacubitril 49 mg-valsartan 51 mg 1 tab PO BID 04/30/23 10/02/23 Unknown History tablet (Entresto) cholecalciferol (vitamin D3) 1,250 1,250 mcg PO QWEEK 10/02/23 10/02/23 Unknown History mcg (50,000 unit) capsule Physical Exam Vital Signs: Vital Signs: Last Vital Signs Temp 99.0 F 10/04/23 15:00 Pulse 90 10/04/23 16:00 Resp 22 H 10/04/23 16:00 BP 98/68 10/04/23 16:00 Pulse Ox 91 L 10/04/23 16:00 O2 Del Method Mechanical Ventil ation 10/04/23 16:00 FiO2 50 10/04/23 16:00 BMI result Body Mass Index 21.7 Psych: Other: sedated Results Labs 10/04/23 04:33 10/04/23 04:33 Labs: Short CBC 10/04/23 Range/Units 04:33 WBC 8.3 (4.8-10.8) X10*3/uL Hgb 10.9 L (14.0-18.0) g/dl Hct 32.8 L (42.0-52.0) % Plt Count 142 L (160-400) X10*3/uL BMP 10/04/23 04:33 Sodium 134 L Potassium 3.8 Chloride 97 Carbon Dioxide 27 BUN 29 H Creatinine 1.68 H Calcium 9.1 Microbiology Microbiology Results: Microbiology 10/02/23 03:11 Blood - Central Line Blood Culture - Final Coag negative Staphylococcus 10/02/23 06:40 Sputum - Suctioned Gram Stain - Final 10/02/23 06:40 Sputum - Suctioned Sputum Culture - Final 10/02/23 03:11 Blood - Central Line Blood Culture - Preliminary No growth after 48 hours. 10/02/23 06:40 Urine Catheterized - Miguel Catheter Urine Culture - Final No growth. Assessment and Plan (1) Influenza: Status: Acute (2) Pneumonia: Status: Acute (3) HIV (human immunodeficiency virus infection): Status: Acute (4) Acute hypoxic respiratory failure: Status: Acute Plan He has pneumonia and concern over postflu pneumonia such as MRSA. He has less likelihood PCP but still possible if not undetectable and adherent to Biktarvy. He had Pseudomonas sputum in 02/2023 when was hospitalized at [facility]. Would continue Vancomycin but stop if MRSA negative nares. Start Cefepime if Pseudomonas found May continue Bactrim but CD4 count probably falsely negative since ill. Continue Biktarvy when able to take po Try to obtain information on care and pharmacy.
[2023-10-04 17:06] LABS: Glucose, Whole Blood 193 mg/dL (60-115)
[2023-10-04] MEDS: Chlorhexidine Gluc Oral Rinse 15 ML MOUTHWASH BUCCAL (20:14)
[2023-10-04] MEDS: Atorvastatin Calcium 40 MG TABLET PO (20:14)
[2023-10-05] VITALS (42 sets, daily range): BP systolic 88–137; BP diastolic 39–93; PULSE 86–111; RESP 22–31; TEMP 33–38.5; O2SAT 86–97; BMI 22.2
[2023-10-05 00:21] LABS: Glucose, Whole Blood 156 mg/dL (60-115)
[2023-10-05] MEDS: Insulin Lispro 100 UNIT/ML 3 ML VIAL SUBCUT ×3 (00:25→23:28)
[2023-10-05] MEDS: Norepinephrine Bitartrate/D5W 8 MG/250 ML PLAST..BAG 22.22 MG IV (02:56)
[2023-10-05] MEDS: Heparin Sodium,Porcine 5,000 UNIT/ML VIAL 5000 UNIT SUBCUT ×2 (03:00→15:45)
[2023-10-05] MEDS: propofoL 1,000 MG/100 ML VIAL 23.7 MG IVCONT ×2 (03:00→07:32)
[2023-10-05] MEDS: Albuterol/Iprat 2.5/0.5MG 3 ML AMPUL.NEB INHALE ×4 (04:29→22:59)
[2023-10-05 04:36] LABS: VBG Base Excess 5.9 mmol/L; VBG HCO3 29 mmol/L (22-26); VBG pCO2 36 mmHg; VBG pO2 44 mmHg
[2023-10-05 04:47] LABS: MANUAL DIFF FLAG NO
[2023-10-05 04:52] LABS: Basophils Percent Auto 0.2 % (0-2); Eosinophils Percent Auto 0.2 % (0-4); Hematocrit 31.7 % (42.0-52.0); Hemoglobin 10.4 g/dl (14.0-18.0); Imm Gran Abs Auto 0.01 X10*3/uL (0.00-0.03); Imm Gran Pct Auto 0.2 % (0.0-0.4); Lymphocytes Absolute Auto 0.6 X10*3/uL (1.2-4.9); Lymphocytes Percent Auto 10.3 % (20-40); Mean Corpuscular HGB Conc 32.8 g/dl (31.0-36.0); Mean Corpuscular Hemoglobin 22.4 pg (27.0-33.0); Mean Corpuscular Volume 68.2 fL (80.0-98.0); Monocytes Absolute Auto 0.5 X10*3/uL (0.1-1.2); Monocytes Percent Auto 7.4 % (2-11); NRBC Pct Auto 0.3 /100WBC (0.0-0.2); Neutrophils Percent Auto 81.7 % (45-73); Platelet Count 109 X10*3/uL (160-400); Red Blood Count 4.65 X10*6/uL (4.60-5.80); Red Cell Distribution Width 14.6 % (11.0-16.0); White Blood Count 6.1 X10*3/uL (4.8-10.8)
[2023-10-05 05:10] LABS: Albumin Level 3.1 g/dL (3.5-5.0); Anion Gap 16 (12-20); Blood Urea Nitrogen 28 mg/dL (9-16); Calcium 8.6 mg/dL (8.4-10.2); Carbon Dioxide 25 mmol/L (22-29); Chloride 105 mmol/L (96-108); Creatinine Clr Calc Pharmacy 43.4; Estimated Glomerular Filt Rate 41; Glucose Random 95 mg/dL (60-115); Phosphorus 2.1 mg/dL (2.7-4.5); Sodium 142 mmol/L (135-145)
[2023-10-05 05:23] LABS: Venous Blood Gas Refer to POC result
[2023-10-05] MEDS: Pantoprazole Sodium 40 MG/10 ML VIAL IVPUSH (05:32)
[2023-10-05] MEDS: Sulfamethoxazole/Trimethoprim 160 MG in Dextrose 5 % 500 ML 225 MG IV ×3 (07:42→23:28)
[2023-10-05 08:01] LABS: Vancomycin Random 14.3 mcg/mL (15-20)
[2023-10-05] MEDS: Albumin Human 25 % 100 ML IV ×3 (09:09→19:15)
--- NOTE | 2023-10-05 09:21 | MHC.CM.PN ---
Pt was not extubated on 10/04 as originally planned - MD to attempt extubation today: CM to revisit once pt is conversant to review d/c planning needs: ? pt's living situation and services. Information on file is patchy and not complete
[2023-10-05] MEDS: Chlorhexidine Gluc Oral Rinse 15 ML MOUTHWASH BUCCAL ×3 (09:24→20:26)
[2023-10-05] MEDS: Lactulose 20 GM/30 ML SOLUTION 30 GM PO ×2 (09:37→20:26)
[2023-10-05] MEDS: Oseltamivir Phosphate 30 MG CAPSULE PO ×2 (09:37→20:26)
[2023-10-05] MEDS: Sodium,Potassium Phosphates POWD.PACK 2 PACKET PO (09:38)
--- NOTE | 2023-10-05 09:56 | PM.CCPN ---
Subjective Subjective Date of Service: 10/05/23 Interval History: 62-year-old gentleman with underlying HIV on HAART, hep C, COPD admitted on 10/02/2023 with acute hypoxic respiratory failure secondary to influenza with superimposed bacterial superinfection requiring intubation, pressor, and ventilatory support No events overnight. Pressor requirements are improving. Critical Care Time (minutes): 60 Physical Exam Vital Signs: Vital Signs: Last Vital Signs Temp 100.8 F H 10/05/23 09:00 Pulse 97 10/05/23 09:06 Resp 26 H 10/05/23 09:00 BP 88/54 L 10/05/23 09:06 Pulse Ox 88 L 10/05/23 09:00 O2 Del Method Mechanical Ventil ation 10/05/23 09:00 FiO2 55 10/05/23 09:00 BMI result Body Mass Index 22.2 Const: General: no acute distress and other (Sedated on the vent) Eyes: Sclerae: sclerae normal EOM: EOMs intact bilaterally Neck: Neck: Yes no lymphadenopathy, Yes trachea midline and Yes supple Resp: Effort & Inspection: normal respiratory effort and no respiratory distress Auscultation: clear to auscultation bilaterally Cardio: Rate: regular rate Rhythm: regular rhythm Heart sounds: no gallops, no murmurs and no rubs GI: Palpation (GI): Soft to palpation and Other GI palpation findings present ( Nontender) Auscultation: normal bowel sounds Extrem: General: Yes no pedal edema, No clubbing and No cyanosis Objective Data Labs 10/05/23 04:11 10/05/23 04:25 Labs: Laboratory Results - last 24 hr 10/02/23 10/04/23 10/04/23 05:15 12:01 16:57 WBC RBC Hgb Hct MCV MCH MCHC RDW Plt Count MPV Immature Gran % (Auto) Neut % (Auto) Lymph % (Auto) [place] % (Auto) Eos % (Auto) Baso % (Auto) Lymph # (Auto) [place] # (Auto) Eos # (Auto) Baso # (Auto) Abs Immat Gran (auto) Absolute Neuts (auto) Absolute Nucleated RBC Nucleated RBC % (auto) Hold Purple Top VBG pH VBG pCO2 VBG pO2 VBG HCO3 VBG O2 Saturation VBG Base Excess Sodium Potassium Chloride Carbon Dioxide Anion Gap BUN Creatinine Estim Creat Clear Calc Estimated GFR POC Glucose 144 H 193 H Random Glucose Calcium Phosphorus Magnesium Albumin Random Vancomycin Lymphocyte Subset Cmmnt TNP Total Lymphocytes 580 L % CD3 Cells 43 L Absolute CD3 Count 251 L % CD4 Cells 27 L Absolute CD4 Count 158 L CD4/CD8 Ratio 1.85 % CD8 Cells 15 Absolute CD8 Count 85 L 10/05/23 10/05/23 10/05/23 00:17 04:11 04:25 WBC 6.1 RBC 4.65 Hgb 10.4 L Hct 31.7 L MCV 68.2 L MCH 22.4 L MCHC 32.8 RDW 14.6 Plt Count 109 L MPV TNP Immature Gran % (Auto) 0.2 Neut % (Auto) 81.7 H Lymph % (Auto) 10.3 L [place] % (Auto) 7.4 Eos % (Auto) 0.2 Baso % (Auto) 0.2 Lymph # (Auto) 0.6 L [place] # (Auto) 0.5 Eos # (Auto) 0.0 Baso # (Auto) 0.0 Abs Immat Gran (auto) 0.01 Absolute Neuts (auto) 5.0 Absolute Nucleated RBC 0.020 H Nucleated RBC % (auto) 0.3 H Hold Purple Top SEE NOTE VBG pH VBG pCO2 VBG pO2 VBG HCO3 VBG O2 Saturation VBG Base Excess Sodium 142 Potassium 4.0 Chloride 105 Carbon Dioxide 25 Anion Gap 16 BUN 28 H Creatinine 1.68 H Estim Creat Clear Calc 43.4 Estimated GFR 41 POC Glucose 156 H Random Glucose 95 Calcium 8.6 Phosphorus 2.1 L Magnesium 2.0 Albumin 3.1 L Random Vancomycin Lymphocyte Subset Cmmnt Total Lymphocytes % CD3 Cells Absolute CD3 Count % CD4 Cells Absolute CD4 Count CD4/CD8 Ratio % CD8 Cells Absolute CD8 Count 10/05/23 10/05/23 04:29 07:25 WBC RBC Hgb Hct MCV MCH MCHC RDW Plt Count MPV Immature Gran % (Auto) Neut % (Auto) Lymph % (Auto) [place] % (Auto) Eos % (Auto) Baso % (Auto) Lymph # (Auto) [place] # (Auto) Eos # (Auto) Baso # (Auto) Abs Immat Gran (auto) Absolute Neuts (auto) Absolute Nucleated RBC Nucleated RBC % (auto) Hold Purple Top VBG pH 7.50 H VBG pCO2 36 VBG pO2 44 VBG HCO3 29 H VBG O2 Saturation 73.0 VBG Base Excess 5.9 Sodium Potassium Chloride Carbon Dioxide Anion Gap BUN Creatinine Estim Creat Clear Calc Estimated GFR POC Glucose Random Glucose Calcium Phosphorus Magnesium Albumin Random Vancomycin 14.3 L Lymphocyte Subset Cmmnt Total Lymphocytes % CD3 Cells Absolute CD3 Count % CD4 Cells Absolute CD4 Count CD4/CD8 Ratio % CD8 Cells Absolute CD8 Count Microbiology Microbiology Results: Microbiology 10/02/23 03:11 Blood - Central Line Blood Culture - Final Coag negative Staphylococcus 10/02/23 06:40 Sputum - Suctioned Gram Stain - Final 10/02/23 06:40 Sputum - Suctioned Sputum Culture - Final 10/02/23 03:11 Blood - Central Line Blood Culture - Preliminary No growth after 48 hours. 10/02/23 06:40 Urine Catheterized - Miguel Catheter Urine Culture - Final No growth. Progress Note: A&P Assessment and plan (1) Influenza: Status: Acute (2) Pneumonia: Status: Acute (3) HIV (human immunodeficiency virus infection): Status: Acute (4) Acute hypoxic respiratory failure: Status: Acute (5) AMBER (acute kidney injury): Status: Acute (6) Hepatitis C: Status: Acute (7) COPD (chronic obstructive pulmonary disease): Status: Acute Plan Assessment: 62-year-old gentleman with underlying HIV on HAART, hep C admitted with acute hypoxic respiratory failure secondary to bacterial superinfection of underlying influenza now requiring ventilatory support Plan: Neuro: No acute issues. Cardiac: Septic shock, continue to titrate off pressor support as tolerated. Pulmonary: Acute hypoxic respiratory failure secondary to bacterial superinfection of underlying influenza. Now requiring ventilatory support. Continue to titrate off as tolerated. Underlying TERRY. Renal: Acute kidney injury secondary to septic shock. Non oliguric. Improving. Continue to monitor renal indices and urine output. Endo: No acute issues. GI: No acute issues. ID: Bacterial superinfection of underlying influenza A. Continue Tamiflu narrow antibiotics to Bactrim. Underlying HIV and hep C. CD4 count is pending. Continue HAART. Heme/Onc: No acute issues. Psych: No acute issues. Miscellaneous: No acute issues. Prophylaxis: Heparin, ppi Diet: Tube feeds Critical care time spent: 60 minutes Quality Stroke Does the patient have a stroke diagnosis?: No VTE Prior VTE?: No VTE Risk Level:: Medical - moderate - high VTE Device Contraindication: N/A - Device Ordered VTE Drug Contraindication: N/A - Med Ordered
[2023-10-05] MEDS: propofoL 1,000 MG/100 ML VIAL 18.96 MG IVCONT (10:43)
[2023-10-05 11:43] LABS: Glucose, Whole Blood 140 mg/dL (60-115)
[2023-10-05] MEDS: Norepinephrine Bitartrate/D5W 8 MG/250 ML PLAST..BAG 25.18 MG IV ×2 (11:55→20:29)
--- NOTE | 2023-10-05 11:56 | P.CDIM_ITS ---
PROVIDER RESPONSE TEXT: To clarify, the appropriate diagnosis supported by the clinical indicators: Acute QUERY TEXT: PHYSICIAN'S DOCUMENTATION REQUEST Date of Query: 10/05/2023 10:28 AM EST Patient Name: Earl Rincon Admit Date: 10/02/2023 Dear Devan Allen, A review of the medical record indicates additional documentation may be needed. Please review below and update the documentation accordingly. Clinical Indicators: ICU H & P 10/02 - Assessment: Mixed blood gas disorder with metabolic and respiratory acidosis. Clarify which of the following accurately represents the acuity of the acidosis (metabolic/respirator y) Acute Acute on chronic Other (explain) Clinically unable to determine (explain) Thank you, Alla Nuno, CCS, CDIS Use of terms such as suspected, likely, concern for, or probable (associated with a specific diagnosi s that is being evaluated, monitored, or treated as if it exists) are acceptable and can be coded in the inpatient se tting, when documented at the time of discharge. Please use your independent medical judgment in providing your response. THIS QUERY IS PART OF THE PERMANENT MEDICAL RECORD
[2023-10-05 13:48] LABS: HCV Log PCR <1.18 NOT DETECTED Log IU/mL (NOT DETECTED); HepC Viral Load <15 NOT DETECTED IU/mL (NOT DETECTED)
--- NOTE | 2023-10-05 14:59 | MHC.CM.PN ---
Received call from Christine, pt licensed psychologist manager, at [facility] who states pt is a client. He has a daily representative personal service and agency provided RN once every 60 days. Pt uses a [employer] for transportation and no other services or DME per Christine . Pt's family hx and other support information was not known by Christine. She asks that a d/c summary be faxed to [phone] once pt is ready to return to home. Transportation to be provided by pt's [employer] or someone from [facility] - call Christine at the time of d/c.
[2023-10-05 15:19] LABS: HIV RNA PCR Qn Copies NOT DETECTED copies/mL (NOT DETECTED); HIV RNA PCR Qn Log Copies NOT DETECTED (NOT DETECTED)
[2023-10-05] MEDS: Acetaminophen Oral Liquid 650 MG/20.3 ML SOLUTION 975 MG PO (15:45)
[2023-10-05 17:39] LABS: Glucose, Whole Blood 216 mg/dL (60-115)
[2023-10-05] MEDS: propofoL 1,000 MG/100 ML VIAL 14.22 MG IVCONT (18:52)
[2023-10-05 23:27] LABS: Glucose, Whole Blood 157 mg/dL (60-115)
[2023-10-06] VITALS (38 sets, daily range): BP systolic 91–142; BP diastolic 61–100; PULSE 108–145; RESP 23–39; TEMP 34–38.8; O2SAT 89–95; BMI 23.0
--- NOTE | 2023-10-06 | ECG_ITS ---
Test Reason : tachycardia Blood Pressure : / mmHG Vent. Rate : 111 BPM Atrial Rate : 111 BPM P-R Int : 188 ms QRS Dur : 080 ms QT Int : 336 ms P-R-T Axes : 083 062 056 degrees QTc Int : 456 ms Sinus tachycardia with occasional Premature ventricular complexes Septal infarct (cited on or before 12-JAN-2014) Abnormal ECG When compared with ECG of 02-OCT-2023 10:10, Premature ventricular complexes are now Present Non-specific change in ST segment in Anterior leads Nonspecific T wave abnormality, improved in Lateral leads Referred By: Kathleen Mejía Electronically Signed By:ARNIE PADGETT
[2023-10-06] MEDS: propofoL 1,000 MG/100 ML VIAL 14.22 MG IVCONT (00:12)
[2023-10-06] MEDS: Albumin Human 25 % 100 ML IV (01:03)
[2023-10-06] MEDS: propofoL 1,000 MG/100 ML VIAL 18.96 MG IVCONT ×5 (03:42→20:57)
[2023-10-06] MEDS: Heparin Sodium,Porcine 5,000 UNIT/ML VIAL 5000 UNIT SUBCUT ×2 (03:43→15:19)
[2023-10-06 04:28] LABS: VBG Base Excess 0.3 mmol/L; VBG HCO3 24 mmol/L (22-26); VBG pCO2 36 mmHg; VBG pH 7.42 (7.32-7.43); VBG pO2 43 mmHg
[2023-10-06 04:46] LABS: MANUAL DIFF FLAG NO
[2023-10-06 04:50] LABS: Basophils Percent Auto 0.2 % (0-2); Eosinophils Percent Auto 0.7 % (0-4); Hematocrit 28.6 % (42.0-52.0); Hemoglobin 9.4 g/dl (14.0-18.0); Imm Gran Abs Auto 0.02 X10*3/uL (0.00-0.03); Imm Gran Pct Auto 0.3 % (0.0-0.4); Lymphocytes Absolute Auto 0.6 X10*3/uL (1.2-4.9); Lymphocytes Percent Auto 10.7 % (20-40); Mean Corpuscular HGB Conc 32.9 g/dl (31.0-36.0); Mean Corpuscular Hemoglobin 22.3 pg (27.0-33.0); Mean Corpuscular Volume 67.9 fL (80.0-98.0); Monocytes Absolute Auto 0.5 X10*3/uL (0.1-1.2); Monocytes Percent Auto 7.6 % (2-11); Neutrophils Absolute Auto 4.8 x10*3/uL (2.0-8.3); Neutrophils Percent Auto 80.5 % (45-73); Red Blood Count 4.21 X10*6/uL (4.60-5.80); Red Cell Distribution Width 14.6 % (11.0-16.0); White Blood Count 5.9 X10*3/uL (4.8-10.8)
[2023-10-06 04:53] LABS: Platelet Count 88 X10*3/uL (160-400)
--- NOTE | 2023-10-06 04:58 | PC.NURSE ---
0408 - pt had 12.6 sec run of vtach on tele - resolved without intervention pt placed on zoll monitor with pacer pads in place EKG and stat labs completed per SUPPLY AIDE pt now sinus tach 100- 110s on tele with 1st degree avb and frequent pvcs?
[2023-10-06 05:04] LABS: OBS Int Ctl Valid YES; OBS1 NEGATIVE (NEGATIVE)
[2023-10-06 05:05] LABS: Venous Blood Gas Refer to POC result
[2023-10-06 05:11] LABS: Alanine Aminotransferase 24 U/L (0-40); Albumin Level 4.3 g/dL (3.5-5.0); Alkaline Phosphatase 61 U/L (39-117); Anion Gap 17 (12-20); Aspartate Amino Transferase 38 U/L (5-37); Bilirubin Total 0.7 mg/dL (0.0-1.0); Blood Urea Nitrogen 31 mg/dL (9-16); Calcium 9.1 mg/dL (8.4-10.2); Carbon Dioxide 22 mmol/L (22-29); Chloride 102 mmol/L (96-108); Creatinine Clr Calc Pharmacy 33.8; Estimated Glomerular Filt Rate 31; Glucose Random 166 mg/dL (60-115); Magnesium 2.2 mg/dL (1.6-2.6); Phosphorus 2.5 mg/dL (2.7-4.5); Potassium 3.4 mmol/L (3.3-5.1); Sodium 138 mmol/L (135-145); Total Protein 7.5 g/dL (6.5-8.0)
[2023-10-06] MEDS: Insulin Lispro 100 UNIT/ML 3 ML VIAL SUBCUT ×3 (05:22→17:30)
[2023-10-06] MEDS: Potassium Chloride/H20 40 MEQ/100 ML PIGGYBACK 50 MEQ IV (05:46)
[2023-10-06] MEDS: Albuterol/Iprat 2.5/0.5MG 3 ML AMPUL.NEB INHALE ×2 (06:31→11:34)
[2023-10-06] MEDS: Chlorhexidine Gluc Oral Rinse 15 ML MOUTHWASH BUCCAL ×3 (07:44→20:14)
[2023-10-06] MEDS: Lactulose 20 GM/30 ML SOLUTION 30 GM PO ×2 (07:44→20:14)
[2023-10-06] MEDS: Oseltamivir Phosphate 30 MG CAPSULE PO ×2 (07:45→20:14)
[2023-10-06] MEDS: Sulfamethoxazole/Trimethoprim 160 MG in Dextrose 5 % 500 ML 225 MG IV (07:45)
--- NOTE | 2023-10-06 08:26 | PC.NURSE ---
Documentation & interventions from [id number] on 10/06/23 was performed by this RN who mistakenly thought he had signed into this computer.
[2023-10-06] MEDS: Furosemide 40 MG/4 ML VIAL IVPUSH (08:36)
--- NOTE | 2023-10-06 09:32 | MHC.CLN ---
F/U PT IS INTUBATED AND SEDATED TF STARTED HOWEVER PT WITH EPISODE OF EMESIS LAST EVENING DISCUSSED AT ROUNDS WITH MD AND TF CURRENTLY ON HOLD IF TF TO RE-START; RECOMMEND PROMOTE AT MAX GOAL RATE 60ML/HR WITH 240ML FREE WATER FLUSHES Q 8 HRS TO PROVIDE 1440KCALS (1940KCALS WITH SEDATION; 29KCALS/KG), 90G PROTEIN (1.35G/KG), 1928ML TOTAL WATER (29ML/KG) MONITOR TOLERANCE, RESIDUALS, AND LYTES
--- NOTE | 2023-10-06 10:08 | P.PNCC_ITS ---
Subjective Subjective Date of Service: 10/06/23 Interval History: 62-year-old gentleman with underlying HIV on HAART, hep C, COPD admitted on 10/02/2023 with acute hypoxic respiratory failure secondary to influenza with superimposed bacterial superinfection requiring intubation, pressor, and ventilatory support. Cultures are negative to date. Pressor requirements continue to improve. Overnight with brief nonsustained VT. Critical Care Time (minutes): 60 Physical Exam 2 Vital Signs: Vital Signs: Last Vital Signs Temp 99.0 F 10/06/23 09:00 Pulse 112 H 10/06/23 09:00 Resp 25 H 10/06/23 09:00 BP 117/82 10/06/23 09:00 Pulse Ox 92 10/06/23 09:00 O2 Del Method Mechanical Ventil ation 10/06/23 09:00 FiO2 65 10/06/23 09:00 BMI result Body Mass Index 23.0 Const: General: no acute distress and other (Sedated on the vent) Eyes: Sclerae: sclerae normal EOM: EOMs intact bilaterally Neck: Neck: Yes no lymphadenopathy, Yes trachea midline and Yes supple Resp: Auscultation: crackles (Bilateral) Cardio: Rate: tachycardic Rhythm: regular rhythm Heart sounds: no gallops, no murmurs and no rubs GI: Palpation (GI): Soft to palpation and Other GI palpation findings present ( Nontender) Auscultation: normal bowel sounds Extrem: General: Yes no pedal edema, No clubbing and No cyanosis Objective Data Labs 10/06/23 04:19 10/06/23 04:27 Labs: Laboratory Results - last 24 hr 10/02/23 10/05/23 10/05/23 05:15 11:39 17:36 WBC RBC Hgb Hct MCV MCH MCHC RDW Plt Count MPV Immature Gran % (Auto) Neut % (Auto) Lymph % (Auto) [place] % (Auto) Eos % (Auto) Baso % (Auto) Lymph # (Auto) [place] # (Auto) Eos # (Auto) Baso # (Auto) Abs Immat Gran (auto) Absolute Neuts (auto) Absolute Nucleated RBC Nucleated RBC % (auto) Hold Purple Top VBG pH VBG pCO2 VBG pO2 VBG HCO3 VBG O2 Saturation VBG Base Excess Sodium Potassium Chloride Carbon Dioxide Anion Gap BUN Creatinine Estim Creat Clear Calc Estimated GFR POC Glucose 140 H 216 H Random Glucose Calcium Phosphorus Magnesium Total Bilirubin AST ALT Alkaline Phosphatase Total Protein Albumin Stool Occult Blood Hep C Viral Load <15 NOT DETECTED Hep C Viral Load Log <1.18 NOT DETECTED HIV-1 RNA copies/mL NOT DETECTED HIV-1 RNA logcopies/mL NOT DETECTED 10/05/23 10/06/23 10/06/23 23:23 04:06 04:19 WBC 5.9 RBC 4.21 L Hgb 9.4 L Hct 28.6 L MCV 67.9 L MCH 22.3 L MCHC 32.9 RDW 14.6 Plt Count 88 L MPV TNP Immature Gran % (Auto) 0.3 Neut % (Auto) 80.5 H Lymph % (Auto) 10.7 L [place] % (Auto) 7.6 Eos % (Auto) 0.7 Baso % (Auto) 0.2 Lymph # (Auto) 0.6 L [place] # (Auto) 0.5 Eos # (Auto) 0.0 Baso # (Auto) 0.0 Abs Immat Gran (auto) 0.02 Absolute Neuts (auto) 4.8 Absolute Nucleated RBC 0.000 Nucleated RBC % (auto) 0.0 Hold Purple Top VBG pH VBG pCO2 VBG pO2 VBG HCO3 VBG O2 Saturation VBG Base Excess Sodium Potassium Chloride Carbon Dioxide Anion Gap BUN Creatinine Estim Creat Clear Calc Estimated GFR POC Glucose 157 H Random Glucose Calcium Phosphorus Magnesium Total Bilirubin AST ALT Alkaline Phosphatase Total Protein Albumin Stool Occult Blood NEGATIVE Hep C Viral Load Hep C Viral Load Log HIV-1 RNA copies/mL HIV-1 RNA logcopies/mL 10/06/23 10/06/23 10/06/23 04:21 04:22 04:27 WBC RBC Hgb Hct MCV MCH MCHC RDW Plt Count MPV Immature Gran % (Auto) Neut % (Auto) Lymph % (Auto) [place] % (Auto) Eos % (Auto) Baso % (Auto) Lymph # (Auto) [place] # (Auto) Eos # (Auto) Baso # (Auto) Abs Immat Gran (auto) Absolute Neuts (auto) Absolute Nucleated RBC Nucleated RBC % (auto) Hold Purple Top SEE NOTE VBG pH 7.42 VBG pCO2 36 VBG pO2 43 VBG HCO3 24 VBG O2 Saturation 69.0 VBG Base Excess 0.3 Sodium 138 Potassium 3.4 Chloride 102 Carbon Dioxide 22 Anion Gap 17 BUN 31 H Creatinine 2.16 H Estim Creat Clear Calc 33.8 Estimated GFR 31 POC Glucose Random Glucose 166 H Calcium 9.1 Phosphorus 2.5 L Magnesium 2.2 Total Bilirubin 0.7 AST 38 H ALT 24 Alkaline Phosphatase 61 Total Protein 7.5 Albumin 4.3 Stool Occult Blood Hep C Viral Load Hep C Viral Load Log HIV-1 RNA copies/mL HIV-1 RNA logcopies/mL Microbiology Microbiology Results: Microbiology 10/02/23 03:11 Blood - Central Line Blood Culture - Final Coag negative Staphylococcus 10/02/23 06:40 Sputum - Suctioned Gram Stain - Final 10/02/23 06:40 Sputum - Suctioned Sputum Culture - Final 10/02/23 03:11 Blood - Central Line Blood Culture - Preliminary No growth after 48 hours. 10/02/23 06:40 Urine Catheterized - Miguel Catheter Urine Culture - Final No growth. Progress Note: A&P Assessment and plan (1) AMBER (acute kidney injury): Status: Acute (2) Influenza: Status: Acute (3) Pneumonia: Status: Acute (4) HIV (human immunodeficiency virus infection): Status: Acute (5) Hepatitis C: Status: Acute (6) COPD (chronic obstructive pulmonary disease): Status: Acute (7) Respiratory failure: Status: Acute Plan Assessment: 62-year-old gentleman with underlying HIV on HAART, hep C admitted with acute hypoxic respiratory failure secondary to bacterial superinfection of underlying influenza now requiring ventilatory support Plan: Neuro: No acute issues. Cardiac: Septic shock, improving, continue to titrate off pressor support as tolerated. Pulmonary: Acute hypoxic respiratory failure secondary to bacterial superinfection of underlying influenza. Now requiring ventilatory support. Continue to titrate off as tolerated. Underlying TERRY. Renal: Acute kidney injury secondary to septic shock. Non oliguric. Continue to monitor renal indices and urine output. Endo: No acute issues. GI: No acute issues. ID: Cultures negative to date. Underlying influenza A. Continue Tamiflu. Will monitor off antibiotics. Underlying HIV and hep C. CD4 count 154. Unable to continue HAART as unable to crush the medication. Heme/Onc: No acute issues. Psych: No acute issues. Miscellaneous: No acute issues. Prophylaxis: Heparin, ppi Diet: Tube feeds Critical care time spent: 60 minutes Quality Stroke Does the patient have a stroke diagnosis?: No VTE Prior VTE?: No VTE Risk Level:: Medical - moderate - high VTE Device Contraindication: N/A - Device Ordered VTE Drug Contraindication: N/A - Med Ordered
[2023-10-06] MEDS: fentaNYL citrate/PF 100 MCG/2 ML VIAL 50 MCG IVPUSH (10:58)
[2023-10-06 12:08] LABS: Glucose, Whole Blood 160 mg/dL (60-115)
[2023-10-06 13:31] LABS: Venous Blood Gas Refer to POC result
[2023-10-06 13:32] LABS: VBG Base Excess 1.9 mmol/L; VBG HCO3 26 mmol/L (22-26); VBG pCO2 40 mmHg; VBG pH 7.41 (7.32-7.43); VBG pO2 48 mmHg
[2023-10-06 17:04] LABS: Glucose, Whole Blood 166 mg/dL (60-115)
[2023-10-06] MEDS: Barium Sulfate Oral (Mocha) 450 ML ORAL.SUSP 900 ML PO (18:32)
[2023-10-06 23:45] LABS: Glucose, Whole Blood 194 mg/dL (60-115)
[2023-10-07] VITALS (32 sets, daily range): BP systolic 91–125; BP diastolic 62–85; PULSE 120–129; RESP 21–40; TEMP 34.9–38.5; O2SAT 89–97; BMI 20.6
[2023-10-07] MEDS: Insulin Lispro 100 UNIT/ML 3 ML VIAL SUBCUT ×3 (00:04→12:04)
[2023-10-07] MEDS: propofoL 1,000 MG/100 ML VIAL 18.96 MG IVCONT ×3 (01:48→08:00)
[2023-10-07 02:39] LABS: Anion Gap 23 (12-20); Blood Urea Nitrogen 50 mg/dL (9-16); Calcium 10.1 mg/dL (8.4-10.2); Carbon Dioxide 22 mmol/L (22-29); Chloride 101 mmol/L (96-108); Creatinine Clr Calc Pharmacy 25.8; Estimated Glomerular Filt Rate 22; Glucose Random 169 mg/dL (60-115); Potassium 4.3 mmol/L (3.3-5.1); Sodium 142 mmol/L (135-145)
[2023-10-07] MEDS: Heparin Sodium,Porcine 5,000 UNIT/ML VIAL 5000 UNIT SUBCUT ×2 (04:08→14:54)
[2023-10-07] MEDS: Albuterol/Iprat 2.5/0.5MG 3 ML AMPUL.NEB INHALE ×2 (04:39→11:19)
[2023-10-07 05:42] LABS: Glucose, Whole Blood 166 mg/dL (60-115)
[2023-10-07 05:42] LABS: VBG Base Excess 0.5 mmol/L; VBG HCO3 24 mmol/L (22-26); VBG pCO2 35 mmHg; VBG pH 7.43 (7.32-7.43); VBG pO2 42 mmHg
[2023-10-07 05:57] LABS: Venous Blood Gas Refer to POC result
[2023-10-07 05:58] LABS: Hemoglobin 10.7 g/dl (14.0-18.0)
[2023-10-07 06:01] LABS: Hematocrit 32.1 % (42.0-52.0); Mean Corpuscular HGB Conc 33.3 g/dl (31.0-36.0); Mean Corpuscular Hemoglobin 22.3 pg (27.0-33.0); Mean Corpuscular Volume 66.9 fL (80.0-98.0); NRBC Pct Auto 0.3 /100WBC (0.0-0.2); Platelet Count 123 X10*3/uL (160-400); Red Cell Distribution Width 14.3 % (11.0-16.0); White Blood Count 7.8 X10*3/uL (4.8-10.8)
[2023-10-07 06:10] LABS: PLT ABN DIST 1
[2023-10-07 06:24] LABS: Albumin Level 4.3 g/dL (3.5-5.0); Anion Gap 24 (12-20); Blood Urea Nitrogen 55 mg/dL (9-16); Calcium 9.8 mg/dL (8.4-10.2); Carbon Dioxide 20 mmol/L (22-29); Chloride 101 mmol/L (96-108); Creatinine Clr Calc Pharmacy 22.3; Estimated Glomerular Filt Rate 21; Glucose Random 164 mg/dL (60-115); Magnesium 2.6 mg/dL (1.6-2.6); Phosphorus 3.8 mg/dL (2.7-4.5); Potassium 4.5 mmol/L (3.3-5.1); Sodium 140 mmol/L (135-145)
[2023-10-07 06:53] LABS: Band Neutrophils Percent 23 % (3-5); Basophils Abs Manual 0.1 X10*3/uL (0.0-0.2); Basophils Percent Manual 1 % (0-2); Lymphocytes Absolute Manual 0.7 X10*3/uL (1.2-4.9); Lymphocytes Percent Manual 9 % (20-40); Monocytes Absolute Manual 0.7 X10*3/uL (0.1-1.2); Monocytes Percent Manual 9 % (2-11); Neutrophils Absolute Manual 6.3 X10*3/uL (2.0-8.3); Neutrophils Percent Manual 58 % (45-73); RBC Morphology NOTED
[2023-10-07 06:54] LABS: Microcytosis 1+ (5-14) /OIF
[2023-10-07 06:55] LABS: Burr Cells 2+ (3-5) /OIF; Large Platelet PRESENT; Platelet Estimate SLIGHTLY DECREASED (NORMAL); Platelet Morphology Comment NORMAL; Schistocytes 1+ (0-2) /OIF; Target Cells 1+ (5-14) /OIF
[2023-10-07] MEDS: Chlorhexidine Gluc Oral Rinse 15 ML MOUTHWASH BUCCAL ×3 (08:00→21:24)
[2023-10-07] MEDS: Famotidine/PF 20 MG/2 ML VIAL IVPUSH (08:00)
[2023-10-07] MEDS: Lactulose 20 GM/30 ML SOLUTION 30 GM PO ×2 (08:00→21:24)
[2023-10-07] MEDS: Sodium Phosphate,Mono-Dibasic 133 ML ENEMA PR (09:19)
--- NOTE | 2023-10-07 09:34 | MHC.CM.PN ---
Pt intubated in ICU: PSBO noted in imaging: no TF at this time: Pt is immunocompromised secondary to HIV w/unknown medication compliance. D/C planning ongoing at this time. CM to follow
--- NOTE | 2023-10-07 09:51 | P.PNCC_ITS ---
Subjective Subjective Date of Service: 10/07/23 Interval History: 62-year-old gentleman with underlying HIV on HAART, hep C, COPD admitted on 10/02/2023 with acute hypoxic respiratory failure secondary to influenza with superimposed bacterial superinfection requiring intubation, pressor, and ventilatory support. Cultures are negative to date. Shock component has resolved. Now with abdominal distention secondary to ileus versus SBO. No events overnight. Critical Care Time (minutes): 60 Physical Exam 2 Vital Signs: Vital Signs: Last Vital Signs Temp 100.2 F 10/07/23 09:00 Pulse 126 H 10/07/23 09:00 Resp 38 H 10/07/23 09:00 BP 108/75 10/07/23 09:00 Pulse Ox 93 10/07/23 09:00 O2 Del Method Mechanical Ventil ation 10/07/23 09:00 FiO2 65 10/07/23 09:00 BMI result Body Mass Index 20.6 Const: General: no acute distress and other (Sedated on the vent) Eyes: Sclerae: sclerae normal EOM: EOMs intact bilaterally Neck: Neck: Yes no lymphadenopathy, Yes trachea midline and Yes supple Resp: Auscultation: clear to auscultation bilaterally Cardio: Rate: tachycardic Rhythm: regular rhythm Heart sounds: no gallops, no murmurs and no rubs GI: Inspection: Yes distended Palpation (GI): Soft to palpation and Other GI palpation findings present Auscultation: Hypoactive bowel sounds present Extrem: General: Yes no pedal edema, No clubbing and No cyanosis Objective Data Labs 10/07/23 05:34 10/07/23 05:34 Labs: Laboratory Results - last 24 hr 10/06/23 10/06/23 10/06/23 12:04 13:25 17:00 WBC RBC Hgb Hct MCV MCH MCHC RDW Plt Count MPV Immature Gran % (Auto) Neut % (Auto) Lymph % (Auto) [place] % (Auto) Eos % (Auto) Baso % (Auto) Lymph # (Auto) [place] # (Auto) Eos # (Auto) Baso # (Auto) Abs Immat Gran (auto) Absolute Neuts (auto) Absolute Nucleated RBC Nucleated RBC % (auto) Neutrophils % (Manual) Band Neutrophils % Lymphocytes % (Manual) Monocytes % (Manual) Basophils % (Manual) Abs Neuts (Manual) Lymphocytes # (Manual) Monocytes # (Manual) Basophils # (Manual) Platelet Estimate Large Platelets Plt Morphology Comment RBC Morphology Microcytosis Target Cells [place] Cells Schistocytes VBG pH 7.41 VBG pCO2 40 VBG pO2 48 VBG HCO3 26 VBG O2 Saturation 74.0 VBG Base Excess 1.9 Sodium Potassium Chloride Carbon Dioxide Anion Gap BUN Creatinine Estim Creat Clear Calc Estimated GFR POC Glucose 160 H 166 H Random Glucose Calcium Phosphorus Magnesium Albumin 10/06/23 10/07/23 10/07/23 23:42 02:10 05:33 WBC RBC Hgb Hct MCV MCH MCHC RDW Plt Count MPV Immature Gran % (Auto) Neut % (Auto) Lymph % (Auto) [place] % (Auto) Eos % (Auto) Baso % (Auto) Lymph # (Auto) [place] # (Auto) Eos # (Auto) Baso # (Auto) Abs Immat Gran (auto) Absolute Neuts (auto) Absolute Nucleated RBC Nucleated RBC % (auto) Neutrophils % (Manual) Band Neutrophils % Lymphocytes % (Manual) Monocytes % (Manual) Basophils % (Manual) Abs Neuts (Manual) Lymphocytes # (Manual) Monocytes # (Manual) Basophils # (Manual) Platelet Estimate Large Platelets Plt Morphology Comment RBC Morphology Microcytosis Target Cells [place] Cells Schistocytes VBG pH 7.43 VBG pCO2 35 VBG pO2 42 VBG HCO3 24 VBG O2 Saturation 64.0 VBG Base Excess 0.5 Sodium 142 Potassium 4.3 D Chloride 101 Carbon Dioxide 22 Anion Gap 23 H BUN 50 H Creatinine 2.92 H Estim Creat Clear Calc 25.8 Estimated GFR 22 POC Glucose 194 H Random Glucose 169 H Calcium 10.1 D Phosphorus Magnesium Albumin 10/07/23 10/07/23 05:34 05:39 WBC 7.8 RBC 4.80 Hgb 10.7 L Hct 32.1 L MCV 66.9 L MCH 22.3 L MCHC 33.3 RDW 14.3 Plt Count 123 L D MPV Not Reportable Immature Gran % (Auto) Cancelled Neut % (Auto) Cancelled Lymph % (Auto) Cancelled [place] % (Auto) Cancelled Eos % (Auto) Cancelled Baso % (Auto) Cancelled Lymph # (Auto) Cancelled [place] # (Auto) Cancelled Eos # (Auto) Cancelled Baso # (Auto) Cancelled Abs Immat Gran (auto) Cancelled Absolute Neuts (auto) Cancelled Absolute Nucleated RBC 0.020 H Nucleated RBC % (auto) 0.3 H Neutrophils % (Manual) 58 Band Neutrophils % 23 H Lymphocytes % (Manual) 9 L Monocytes % (Manual) 9 Basophils % (Manual) 1 Abs Neuts (Manual) 6.3 Lymphocytes # (Manual) 0.7 L Monocytes # (Manual) 0.7 Basophils # (Manual) 0.1 Platelet Estimate SLIGHTLY DECREASED Large Platelets PRESENT Plt Morphology Comment NORMAL RBC Morphology NOTED Microcytosis 1+ (5-14) Target Cells 1+ (5-14) [place] Cells 2+ (3-5) Schistocytes 1+ (0-2) VBG pH VBG pCO2 VBG pO2 VBG HCO3 VBG O2 Saturation VBG Base Excess Sodium 140 Potassium 4.5 Chloride 101 Carbon Dioxide 20 L Anion Gap 24 H BUN 55 H Creatinine 3.03 H Estim Creat Clear Calc 22.3 Estimated GFR 21 POC Glucose 166 H Random Glucose 164 H Calcium 9.8 Phosphorus 3.8 Magnesium 2.6 Albumin 4.3 Microbiology Microbiology Results: Microbiology 10/02/23 03:11 Blood - Central Line Blood Culture - Final No growth after 5 days. 10/02/23 03:11 Blood - Central Line Blood Culture - Final Coag negative Staphylococcus 10/02/23 06:40 Sputum - Suctioned Gram Stain - Final 10/02/23 06:40 Sputum - Suctioned Sputum Culture - Final 10/02/23 06:40 Urine Catheterized - Miguel Catheter Urine Culture - Final No growth. Progress Note: A&P Assessment and plan (1) AMBER (acute kidney injury): Status: Acute (2) Influenza: Status: Acute (3) HIV (human immunodeficiency virus infection): Status: Acute (4) Acute hypoxic respiratory failure: Status: Acute (5) Hepatitis C: Status: Acute (6) COPD (chronic obstructive pulmonary disease): Status: Acute (7) Ileus: Status: Acute Plan Assessment: 62-year-old gentleman with underlying HIV on HAART, hep C admitted with acute hypoxic respiratory failure secondary to bacterial superinfection of underlying influenza now requiring ventilatory support Plan: Neuro: No acute issues. Cardiac: Septic shock, improving, continue to titrate off pressor support as tolerated. Pulmonary: Acute hypoxic respiratory failure secondary to bacterial superinfection of underlying influenza. Now requiring ventilatory support. Continue to titrate off as tolerated. Underlying TERRY. Renal: Acute kidney injury secondary to septic shock. Non oliguric. Continue to monitor renal indices and urine output. Endo: No acute issues. GI: Ileus versus SBO. Several enemas attempted. Rectal vault with no stool. General surgery evaluation requested. ID: Cultures negative to date. Underlying influenza A. Continue Tamiflu. Will monitor off antibiotics. Underlying HIV and hep C. CD4 count 154. Unable to continue HAART as unable to crush the medication. Heme/Onc: No acute issues. Psych: No acute issues. Miscellaneous: No acute issues. Prophylaxis: Heparin, ppi Diet: Tube feeds Critical care time spent: 60 minutes Quality Stroke Does the patient have a stroke diagnosis?: No VTE Prior VTE?: No VTE Risk Level:: Medical - moderate - high VTE Device Contraindication: N/A - Device Ordered VTE Drug Contraindication: N/A - Med Ordered
[2023-10-07] MEDS: Lactulose 320 GM/480 ML SOLUTION 200 GM PR (10:31)
[2023-10-07] MEDS: propofoL 1,000 MG/100 ML VIAL 23.7 MG IVCONT ×4 (11:47→22:48)
[2023-10-07 11:54] LABS: Glucose, Whole Blood 163 mg/dL (60-115)
--- NOTE | 2023-10-07 15:17 | PM.CNGS ---
History of Present Illness Consult details Consult date: 10/07/23 Requesting physician: Devan Allen Narrative: 62-year-old gentleman with underlying HIV on HAART, hep C, COPD admitted on 10/02/2023 with acute hypoxic respiratory failure secondary to influenza with superimposed bacterial superinfection requiring intubation, pressor, and ventilatory support. He was found to be distended this morning on examination. CT scan was therefore obtained which showed dilated mostly air-filled colon and dilated small bowel loops with multiple air-fluid levels. Partner at bedside reports he thinks he had a feeding tube at one point previously but denies prior abdominal surgeries. Review of Systems Review of Systems: Yes Unobtainable due to mental condition PMFSH Past Medical History Medical History Pneumonia TERRY (obstructive sleep apnea) Pulmonary nodules Hepatitis C HIV disease COPD (chronic obstructive pulmonary disease) Family History Family history: reviewed and not pertinent Social History Social History Household Members: Unknown / Unable to assess Housing: Unknown / Unable to assess Patient Tobacco Use Status: Tobacco use Unknown Tobacco use type: Cigarette Cigarette Packs Per Day: 1 Cigarettes Per Day: 4 Years Smoked: 30 Years Substance Use Type: Unknown Meds Allergies Allergy/AdvReac Type Severity Reaction Status Date / Time No Known Allergies Allergy Verified 06/24/23 14:50 [No Known Allergies*] Active Medications: Current Medications Acetaminophen (Acetaminophen Oral Liquid 650 Mg/20.3 Ml Solution) 975 mg PO Q8H PRN PRN Reason: Fever >100.4 Last Admin: 10/05/23 15:45 Dose: 975 mg Albuterol Sulfate (Albuterol Sulfate (0.083%) 2.5 Mg/3 Ml Vial.Neb) 2.5 mg INHALE Q4H PRN PRN Reason: Wheezing Albuterol/Ipratropium (Albuterol/Iprat 2.5/0.5mg 3 Ml Ampul.Neb) 3 ml INHALE RQ6H [facility] Last Admin: 10/07/23 11:19 Dose: 3 ml Chlorhexidine Gluconate (Chlorhexidine Gluc Oral Rinse 15 Ml Mouthwash) 15 ml BUCCAL TID [facility] Last Admin: 10/07/23 14:54 Dose: 15 ml Dextrose (Dextrose 50 % 25 Gm/50 Ml Syringe) 25 gm IVPUSH Q15M PRN; Protocol PRN Reason: per Hypoglycemia Standing Ord. Famotidine (Famotidine/Pf 20 Mg/2 Ml Vial) 20 mg IVPUSH DAILY [facility] Last Admin: 10/07/23 08:00 Dose: 20 mg Glucose (Glucose Gel 15 Gm Gel..Gram.) 15 gm PO Q15M PRN; Protocol PRN Reason: per Hypoglycemia Standing Ord. Heparin Sodium (Porcine) (Heparin Sodium,Porcine 5,000 Unit/Ml Vial) 5,000 unit SUBCUT Q12H [facility] Last Admin: 10/07/23 14:54 Dose: 5,000 unit Propofol (Diprivan) 1,000 mg in 100 mls @ 0 mls/hr IVCONT .Q0M [facility]; Protocol Last Admin: 10/07/23 14:54 Dose: 50 mcg/kg/min, 23.7 mls/hr Norepinephrine Bitartrate (Levophed) 8 mg in 250 mls @ 0 mls/hr IV .Q0M [facility]; Protocol Last Titration: 10/06/23 16:27 Dose: Infused Insulin Human Lispro (Insulin Lispro 100 Unit/Ml 3 Ml Vial) 0 unit SUBCUT Q6H [facility]; Protocol Last Admin: 10/07/23 12:04 Dose: 2 unit Lactulose (Lactulose 20 Gm/30 Ml Solution) 30 gm PO BID [facility] Last Admin: 10/07/23 08:00 Dose: 30 gm Ondansetron HCl (Ondansetron Hcl 4 Mg/2 Ml Vial) 4 mg IVPUSH Q4H PRN PRN Reason: Nausea and Vomiting Last Admin: 10/03/23 08:40 Dose: 4 mg Home Medications Medication Instructions Recorded Confirmed Last Taken Type bictegravir 50 mg-emtricitabine 1 tab PO DAILY 04/24/22 10/02/23 Unknown History 200 mg-tenofovir alafenam 25 mg tablet (Biktarvy) montelukast 10 mg tablet 10 mg PO BEDTIME 04/24/22 10/02/23 Unknown History nebulizers 08/14/22 Unknown History dapagliflozin propanediol 10 mg 10 mg PO DAILY 10/30/22 10/02/23 Unknown History tablet (Farxiga) furosemide 40 mg tablet 40 mg PO DAILY 10/30/22 10/02/23 Unknown History spironolactone 25 mg tablet 12.5 mg PO DAILY 11/13/22 10/02/23 Unknown History atorvastatin 40 mg tablet 40 mg PO BEDTIME 04/30/23 10/02/23 Unknown History sacubitril 49 mg-valsartan 51 mg 1 tab PO BID 04/30/23 10/02/23 Unknown History tablet (Entresto) cholecalciferol (vitamin D3) 1,250 1,250 mcg PO QWEEK 10/02/23 10/02/23 Unknown History mcg (50,000 unit) capsule Physical Exam Vital Signs: Vital Signs: Last Vital Signs Temp 100.8 F H 10/07/23 15:00 Pulse 127 H 10/07/23 15:00 Resp 30 H 10/07/23 15:00 BP 113/75 10/07/23 15:00 Pulse Ox 93 10/07/23 15:00 O2 Del Method Mechanical Ventil ation 10/07/23 15:00 FiO2 65 10/07/23 15:00 BMI result Body Mass Index 20.6 Resp: Other: intubated on vent Cardio: Rate: tachycardic GI: Inspection: Yes distended and Yes scar (epigastric/LUQ circular scar consistent with G tube ) Palpation (GI): Soft to palpation, not firm and not rigid Percussion: Yes tympanic to percussion Skin: General skin exam: no rashes or lesions noted and no jaundice Results Labs 10/07/23 05:34 10/07/23 05:34 Labs: Abnormal lab results 10/06/23 10/06/23 10/07/23 Range/Units 17:00 23:42 02:10 Hgb (14.0-18.0) g/dl Hct (42.0-52.0) % MCV (80.0-98.0) fL MCH (27.0-33.0) pg Plt Count (160-400) X10*3/uL Absolute Nucleated RBC (0.0-0.012) X10*3/uL Nucleated RBC % (auto) (0.0-0.2) /100WBC Band Neutrophils % (3-5) % Lymphocytes % (Manual) (20-40) % Lymphocytes # (Manual) (1.2-4.9) X10*3/uL Carbon Dioxide (22-29) mmol/L Anion Gap 23 H (12-20) BUN 50 H (9-16) mg/dL Creatinine 2.92 H (0.5-1.4) mg/dL POC Glucose 166 H 194 H (60-115) mg/dL Random Glucose 169 H (60-115) mg/dL 10/07/23 10/07/23 10/07/23 Range/Units 05:34 05:39 11:50 Hgb 10.7 L (14.0-18.0) g/dl Hct 32.1 L (42.0-52.0) % MCV 66.9 L (80.0-98.0) fL MCH 22.3 L (27.0-33.0) pg Plt Count 123 L D (160-400) X10*3/uL Absolute Nucleated RBC 0.020 H (0.0-0.012) X10*3/uL Nucleated RBC % (auto) 0.3 H (0.0-0.2) /100WBC Band Neutrophils % 23 H (3-5) % Lymphocytes % (Manual) 9 L (20-40) % Lymphocytes # (Manual) 0.7 L (1.2-4.9) X10*3/uL Carbon Dioxide 20 L (22-29) mmol/L Anion Gap 24 H (12-20) BUN 55 H (9-16) mg/dL Creatinine 3.03 H (0.5-1.4) mg/dL POC Glucose 166 H 163 H (60-115) mg/dL Random Glucose 164 H (60-115) mg/dL Short CBC 10/07/23 Range/Units 05:34 WBC 7.8 (4.8-10.8) X10*3/uL Hgb 10.7 L (14.0-18.0) g/dl Hct 32.1 L (42.0-52.0) % Plt Count 123 L D (160-400) X10*3/uL BMP 10/07/23 10/07/23 02:10 05:34 Sodium 142 140 Potassium 4.3 D 4.5 Chloride 101 101 Carbon Dioxide 22 20 L BUN 50 H 55 H Creatinine 2.92 H 3.03 H Calcium 10.1 D 9.8 Liver Function 10/07/23 Range/Units 05:34 Albumin 4.3 (3.5-5.0) g/dL Urine 10/02/23 Range/Units 03:44 Urine Color Yellow Urine Appearance Cloudy Urine pH 6.5 (5.0-9.0) Ur Specific [place] 1.020 (1.005-1.025) Urine Protein 300 (3+) H (Neg-Trace) mg/dL Urine Glucose (UA) 500 H (Negative) mg/dL All other labs normal. Imaging Abdomen CT scan report/results: report reviewed and image reviewed Assessment and Plan (1) Ileus: Status: Acute Plan 62-year-old gentleman with underlying HIV on HAART, hep C, COPD admitted on 10/02/2023 with acute hypoxic respiratory failure secondary to influenza with superimposed bacterial superinfection requiring intubation, pressor, and ventilatory support now with abdominal distention with CT scan showing dilated air-filled colon and dilated small bowel loops with multiple air-fluid levels. Patient likely with ileus and pseudoobstruction due to acute illness. His abdomen is distended but benign without any peritoneal signs and he has good amount of air in the rectum and may benefit from rectal tube. Continue to treat acute illness and medical issues, follow electrolytes, avoid narcotics if possible. GI consult if no further improvement for possible decompression. Will continue to follow. Procedures Date of Service Date of Service: 10/07/23
[2023-10-07 17:35] LABS: Glucose, Whole Blood 134 mg/dL (60-115)
[2023-10-08] VITALS (42 sets, daily range): BP systolic 80–134; BP diastolic 54–91; PULSE 96–132; RESP 24–39; TEMP 35–38.9; O2SAT 90–97; BMI 19.9
[2023-10-08 00:35] LABS: Glucose, Whole Blood 159 mg/dL (60-115)
[2023-10-08] MEDS: Albuterol/Iprat 2.5/0.5MG 3 ML AMPUL.NEB INHALE ×5 (00:41→23:45)
[2023-10-08] MEDS: propofoL 1,000 MG/100 ML VIAL 23.7 MG IVCONT ×7 (02:27→23:31)
[2023-10-08] MEDS: Heparin Sodium,Porcine 5,000 UNIT/ML VIAL 5000 UNIT SUBCUT ×2 (03:03→15:07)
[2023-10-08] MEDS: Acetaminophen Supp 650 MG SUPP.RECT PR (03:03)
[2023-10-08 04:49] LABS: Basophils Percent Auto 0.3 % (0-2); Hematocrit 32.7 % (42.0-52.0); Mean Corpuscular HGB Conc 33.6 g/dl (31.0-36.0); Mean Corpuscular Hemoglobin 22.3 pg (27.0-33.0); Mean Corpuscular Volume 66.2 fL (80.0-98.0); Mean Platelet Volume 11.1 fL (9.4-12.4); NRBC Pct Auto 0.2 /100WBC (0.0-0.2); Red Blood Count 4.94 X10*6/uL (4.60-5.80); SCAN SMEAR FLAG 1
[2023-10-08 04:51] LABS: VBG Base Excess -3.1 mmol/L; VBG HCO3 21 mmol/L (22-26); VBG pCO2 34 mmHg; VBG pH 7.39 (7.32-7.43); VBG pO2 46 mmHg
[2023-10-08 04:51] LABS: Eosinophils Absolute Auto 0.1 X10*3/uL (0.0-0.4); Eosinophils Percent Auto 0.5 % (0-4); Imm Gran Pct Auto 0.9 % (0.0-0.4); Lymphocytes Absolute Auto 0.8 X10*3/uL (1.2-4.9); Lymphocytes Percent Auto 7.4 % (20-40); MANUAL DIFF FLAG SCAN; Monocytes Absolute Auto 1.4 X10*3/uL (0.1-1.2); Neutrophils Absolute Auto 8.5 x10*3/uL (2.0-8.3); Neutrophils Percent Auto 77.9 % (45-73); Platelet Count 212 X10*3/uL (160-400); Red Cell Distribution Width 14.5 % (11.0-16.0); White Blood Count 10.9 X10*3/uL (4.8-10.8)
[2023-10-08 04:58] LABS: PLT ABN DIST 1
[2023-10-08 04:59] LABS: Venous Blood Gas Refer to POC result
[2023-10-08 05:09] LABS: Alanine Aminotransferase 21 U/L (0-40); Albumin Level 4.2 g/dL (3.5-5.0); Alkaline Phosphatase 70 U/L (39-117); Anion Gap 24 (12-20); Aspartate Amino Transferase 33 U/L (5-37); Bilirubin Total 0.7 mg/dL (0.0-1.0); Blood Urea Nitrogen 93 mg/dL (9-16); Calcium 10.2 mg/dL (8.4-10.2); Carbon Dioxide 19 mmol/L (22-29); Chloride 104 mmol/L (96-108); Creatinine Clr Calc Pharmacy 17.2; Estimated Glomerular Filt Rate 16; Glucose Random 174 mg/dL (60-115); Phosphorus 4.8 mg/dL (2.7-4.5); Potassium 4.8 mmol/L (3.3-5.1); Sodium 142 mmol/L (135-145); Total Protein 8.7 g/dL (6.5-8.0)
[2023-10-08 05:31] LABS: SLIDE REVIEW VERIFIED
[2023-10-08] MEDS: Insulin Lispro 100 UNIT/ML 3 ML VIAL SUBCUT ×3 (05:43→17:14)
[2023-10-08] MEDS: Famotidine/PF 20 MG/2 ML VIAL IVPUSH (08:09)
[2023-10-08] MEDS: Chlorhexidine Gluc Oral Rinse 15 ML MOUTHWASH BUCCAL ×3 (08:09→20:34)
[2023-10-08] MEDS: Lactulose 20 GM/30 ML SOLUTION 30 GM PO ×2 (08:09→20:35)
--- NOTE | 2023-10-08 09:47 | MHC.CM.PN ---
EMR REVIEWED, PT REMAINS VENTED, NO PLAN FOR DC AT THIS TIME, CM WILL CONT TO FOLLOW DISCHARGE NEEDS.
--- NOTE | 2023-10-08 10:08 | MHC.CLN ---
F/U PT REMAINS INTUBATED AND SEDATED TF REMAINS ON HOLD; NPO DAY 2 R/T PSBO DISCUSSED AT ROUNDS WITH MD IF TF TO RE-START; RECOMMEND PROMOTE AT MAX GOAL RATE 60ML/HR WITH 240ML FREE WATER FLUSHES Q 8 HRS TO PROVIDE 1440KCALS (1940KCALS WITH SEDATION; 29KCALS/KG), 90G PROTEIN (1.35G/KG), 1928ML TOTAL WATER (29ML/KG) MONITOR TOLERANCE, RESIDUALS, AND LYTES PLS CONSULT RD IF TPN NEEDED RD CAN BE REACHED VIA TIGER CONNECT DURING OFF HOURS
--- NOTE | 2023-10-08 10:35 | PM.CCPN ---
Subjective Subjective Date of Service: 10/08/23 Interval History: 62-year-old gentleman with underlying HIV on HAART, hep C, COPD admitted on 10/02/2023 with acute hypoxic respiratory failure secondary to influenza with superimposed bacterial superinfection requiring intubation, pressor, and ventilatory support. Cultures are negative to date. Shock component has resolved. Now with abdominal distention secondary to ileus versus SBO, evaluated by general surgeon and deemed to underlying ileus. Abdominal distention is improved, however renal function is getting worse. No events overnight. Critical Care Time (minutes): 60 Physical Exam Vital Signs: Vital Signs: Last Vital Signs Temp 101.4 F H 10/08/23 09:58 Pulse 117 H 10/08/23 09:58 Resp 27 H 10/08/23 09:58 BP 96/67 10/08/23 09:58 Pulse Ox 94 10/08/23 09:58 O2 Del Method Mechanical Ventil ation 10/08/23 09:58 FiO2 65 10/08/23 09:58 BMI result Body Mass Index 19.9 Const: General: no acute distress and other (Sedated on the vent) Eyes: Sclerae: sclerae normal EOM: EOMs intact bilaterally Neck: Neck: Yes no lymphadenopathy, Yes trachea midline and Yes supple Resp: Auscultation: crackles (Bibasilar) Cardio: Rate: tachycardic Rhythm: regular rhythm Heart sounds: no gallops, no murmurs and no rubs GI: Palpation (GI): Soft to palpation and Other GI palpation findings present ( Nontender) Auscultation: normal bowel sounds Extrem: General: Yes no pedal edema, No clubbing and No cyanosis Objective Data Labs 10/08/23 04:38 10/08/23 04:38 Labs: Laboratory Results - last 24 hr 10/07/23 10/07/23 10/08/23 11:50 17:29 00:31 WBC RBC Hgb Hct MCV MCH MCHC RDW Plt Count MPV Immature Gran % (Auto) Neut % (Auto) Lymph % (Auto) [place] % (Auto) Eos % (Auto) Baso % (Auto) Lymph # (Auto) [place] # (Auto) Eos # (Auto) Baso # (Auto) Abs Immat Gran (auto) Absolute Neuts (auto) Absolute Nucleated RBC Nucleated RBC % (auto) Smear Tech's Comments VBG pH VBG pCO2 VBG pO2 VBG HCO3 VBG O2 Saturation VBG Base Excess Sodium Potassium Chloride Carbon Dioxide Anion Gap BUN Creatinine Estim Creat Clear Calc Estimated GFR POC Glucose 163 H 134 H 159 H Random Glucose Calcium Phosphorus Magnesium Total Bilirubin AST ALT Alkaline Phosphatase Total Protein Albumin 10/08/23 10/08/23 04:38 04:43 WBC 10.9 H RBC 4.94 Hgb 11.0 L Hct 32.7 L MCV 66.2 L MCH 22.3 L MCHC 33.6 RDW 14.5 Plt Count 212 D MPV 11.1 Immature Gran % (Auto) 0.9 H Neut % (Auto) 77.9 H Lymph % (Auto) 7.4 L [place] % (Auto) 13.0 H Eos % (Auto) 0.5 Baso % (Auto) 0.3 Lymph # (Auto) 0.8 L [place] # (Auto) 1.4 H Eos # (Auto) 0.1 Baso # (Auto) 0.0 Abs Immat Gran (auto) 0.10 H Absolute Neuts (auto) 8.5 H Absolute Nucleated RBC 0.020 H Nucleated RBC % (auto) 0.2 Smear Tech's Comments VERIFIED VBG pH 7.39 VBG pCO2 34 VBG pO2 46 VBG HCO3 21 L VBG O2 Saturation 69.0 VBG Base Excess -3.1 Sodium 142 Potassium 4.8 Chloride 104 Carbon Dioxide 19 L Anion Gap 24 H BUN 93 H Creatinine 3.92 H Estim Creat Clear Calc 17.2 Estimated GFR 16 POC Glucose Random Glucose 174 H Calcium 10.2 Phosphorus 4.8 H Magnesium 3.0 H Total Bilirubin 0.7 AST 33 ALT 21 Alkaline Phosphatase 70 Total Protein 8.7 H Albumin 4.2 Microbiology Microbiology Results: Microbiology 10/02/23 03:11 Blood - Central Line Blood Culture - Final No growth after 5 days. 10/02/23 03:11 Blood - Central Line Blood Culture - Final Coag negative Staphylococcus 10/02/23 06:40 Sputum - Suctioned Gram Stain - Final 10/02/23 06:40 Sputum - Suctioned Sputum Culture - Final 10/02/23 06:40 Urine Catheterized - Miguel Catheter Urine Culture - Final No growth. Progress Note: A&P Assessment and plan (1) Ileus: Status: Acute (2) AMBER (acute kidney injury): Status: Acute (3) Influenza: Status: Acute (4) HIV (human immunodeficiency virus infection): Status: Acute (5) Acute hypoxic respiratory failure: Status: Acute (6) Hepatitis C: Status: Acute (7) COPD (chronic obstructive pulmonary disease): Status: Acute Plan Assessment: 62-year-old gentleman with underlying HIV on HAART, hep C admitted with acute hypoxic respiratory failure secondary to bacterial superinfection of underlying influenza now requiring ventilatory support Plan: Neuro: No acute issues. Cardiac: Septic shock, improving, continue to titrate off pressor support as tolerated. Pulmonary: Acute hypoxic respiratory failure secondary to bacterial superinfection of underlying influenza. Now requiring ventilatory support. Continue to titrate off as tolerated. Underlying TERRY. Renal: Acute kidney injury secondary to septic shock. Urine output is improving. Non oliguric. Continue to monitor renal indices and urine output. Endo: No acute issues. GI: Ileus. Several enemas attempted. Rectal vault with no stool. General surgery service care appreciated. ID: Cultures negative to date. Underlying influenza A. Continue Tamiflu. Will monitor off antibiotics. Underlying HIV and hep C. CD4 count 154. Unable to continue HAART as unable to crush the medication. Heme/Onc: No acute issues. Psych: No acute issues. Miscellaneous: No acute issues. Prophylaxis: Heparin, ppi Diet: Tube feeds Critical care time spent: 60 minutes Quality Stroke Does the patient have a stroke diagnosis?: No VTE Prior VTE?: No VTE Risk Level:: Medical - moderate - high VTE Device Contraindication: N/A - Device Ordered VTE Drug Contraindication: N/A - Med Ordered
[2023-10-08] MEDS: Piperacillin Sodium/Tazobactam 2.25 GM in 0.9 % Sodium Chloride 50 ML IV ×3 (10:46→22:37)
[2023-10-08 11:12] LABS: Glucose, Whole Blood 179 mg/dL (60-115)
[2023-10-08] MEDS: Norepinephrine Bitartrate/D5W 8 MG/250 ML PLAST..BAG 7.41 MG IV (11:19)
--- NOTE | 2023-10-08 15:42 | MHC.CM.PN ---
Addendum entered by Nataliia Mckeon RN 10/08/23 16:01: CM RECEIVED COPY OF HCP, COPY UPLOADED TO [facility] AND PLACED IN PHYSICAL CHART. 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 PT'S NURSE CONCERNED SHE THOUGHT THIS WAS ODD AND CM CONTACTED PT'S CHANNEL SALES DIRECTOR FROM [facility], NEELA AND SHE REPORTS NO INFORMATION SHOULD BE GIVEN TO ANYONE EXCEPT PT'S PRIMARY CONTACT WHO THEY HAVE LISTED PT'S SON YONATHAN BABB JR [phone], PER [place] YONATHAN DAVIDSON WAS IN AND MET W/SON YESTERDAY . HENNA HAS CONTACTED [facility] [place] TO SEE IF THEY HAVE A HCP ON FILE WHICH THEY DO AND WILL FAX TO CM OFFICE.
[2023-10-08 17:10] LABS: Glucose, Whole Blood 156 mg/dL (60-115)
[2023-10-08 23:58] LABS: Glucose, Whole Blood 169 mg/dL (60-115)
[2023-10-09] VITALS (36 sets, daily range): BP systolic 86–122; BP diastolic 56–84; PULSE 92–129; RESP 10–35; TEMP 35–38.2; O2SAT 92–96; BMI 21.6
[2023-10-09] MEDS: Insulin Lispro 100 UNIT/ML 3 ML VIAL SUBCUT ×3 (00:06→12:20)
[2023-10-09] MEDS: propofoL 1,000 MG/100 ML VIAL 23.7 MG IVCONT ×5 (03:16→22:33)
[2023-10-09] MEDS: Norepinephrine Bitartrate/D5W 8 MG/250 ML PLAST..BAG 10.37 MG IV (03:16)
[2023-10-09] MEDS: Heparin Sodium,Porcine 5,000 UNIT/ML VIAL 5000 UNIT SUBCUT ×2 (03:19→15:06)
[2023-10-09] MEDS: Piperacillin Sodium/Tazobactam 2.25 GM in 0.9 % Sodium Chloride 50 ML IV ×4 (04:10→22:33)
[2023-10-09 04:54] LABS: Hematocrit 31.6 % (42.0-52.0); Hemoglobin 10.6 g/dl (14.0-18.0); Mean Corpuscular HGB Conc 33.5 g/dl (31.0-36.0); Mean Corpuscular Hemoglobin 22.3 pg (27.0-33.0); Mean Corpuscular Volume 66.5 fL (80.0-98.0); Mean Platelet Volume 10.8 fL (9.4-12.4); Platelet Count 256 X10*3/uL (160-400); Red Blood Count 4.75 X10*6/uL (4.60-5.80); Red Cell Distribution Width 14.6 % (11.0-16.0); White Blood Count 12.9 X10*3/uL (4.8-10.8)
[2023-10-09 04:54] LABS: VBG Base Excess -6.5 mmol/L; VBG HCO3 18 mmol/L (22-26); VBG pCO2 36 mmHg; VBG pH 7.31 (7.32-7.43); VBG pO2 46 mmHg
[2023-10-09 05:06] LABS: Venous Blood Gas Refer to POC result
[2023-10-09 05:11] LABS: Alanine Aminotransferase 16 U/L (0-40); Albumin Level 3.7 g/dL (3.5-5.0); Alkaline Phosphatase 62 U/L (39-117); Anion Gap 24 (12-20); Aspartate Amino Transferase 26 U/L (5-37); Bilirubin Total 0.7 mg/dL (0.0-1.0); Blood Urea Nitrogen 115 mg/dL (9-16); Calcium 9.9 mg/dL (8.4-10.2); Carbon Dioxide 18 mmol/L (22-29); Chloride 105 mmol/L (96-108); Glucose Random 151 mg/dL (60-115); Phosphorus 6.4 mg/dL (2.7-4.5); Sodium 142 mmol/L (135-145); Total Protein 8.5 g/dL (6.5-8.0)
[2023-10-09 05:14] LABS: Creatinine Clr Calc Pharmacy 15.8; Estimated Glomerular Filt Rate 15; Magnesium 3.5 mg/dL (1.6-2.6)
[2023-10-09 05:29] LABS: Band Neutrophils Percent 12 % (3-5); Eosinophils Absolute Manual 0.4 X10*3/uL (0.0-0.4); Eosinophils Percent Manual 3 % (0-4); Lymphocytes Absolute Manual 0.8 X10*3/uL (1.2-4.9); Lymphocytes Percent Manual 6 % (20-40); Monocytes Absolute Manual 0.8 X10*3/uL (0.1-1.2); Monocytes Percent Manual 6 % (2-11); Neutrophils Percent Manual 73 % (45-73); Nucleated Red Blood Cells 1 /100WBC (0-0)
[2023-10-09 05:30] LABS: Acanthocytes 1+ (0-2) /OIF; Large Platelet PRESENT; Macrocytosis 1+ (5-14) /OIF; Platelet Estimate NORMAL (NORMAL); Platelet Morphology Comment NOTED; RBC Morphology NOTED; Target Cells 1+ (5-14) /OIF; Tear Drop Cells 2+ (3-5) /OIF
[2023-10-09 05:31] LABS: Burr Cells 1+ (0-2) /OIF; Polychromasia 1+ (0-2) /OIF; Smudge Cells PRESENT
[2023-10-09] MEDS: Albuterol/Iprat 2.5/0.5MG 3 ML AMPUL.NEB INHALE ×4 (06:16→23:03)
[2023-10-09 07:37] LABS: Glucose, Whole Blood 148 mg/dL (60-115)
[2023-10-09] MEDS: Chlorhexidine Gluc Oral Rinse 15 ML MOUTHWASH BUCCAL ×3 (07:55→19:48)
[2023-10-09] MEDS: Lactulose 20 GM/30 ML SOLUTION 30 GM PO ×2 (07:55→19:48)
--- NOTE | 2023-10-09 10:14 | P.PNCC_ITS ---
Subjective Subjective Date of Service: 10/09/23 Interval History: 62-year-old gentleman with underlying HIV on HAART, hep C, COPD admitted on 10/02/2023 with acute hypoxic respiratory failure secondary to influenza with superimposed bacterial superinfection requiring intubation, pressor, and ventilatory support. Cultures are negative to date. Shock component has resolved. Now with abdominal distention secondary to ileus versus SBO, evaluated by general surgeon and deemed to underlying ileus. Abdominal distention is improved, however renal function is getting worse, urine output is maintained. No events overnight. Critical Care Time (minutes): 60 Physical Exam 2 Vital Signs: Vital Signs: Last Vital Signs Temp 98.4 F 10/09/23 09:00 Pulse 104 H 10/09/23 09:00 Resp 25 H 10/09/23 09:00 BP 98/59 L 10/09/23 09:00 Pulse Ox 93 10/09/23 09:00 O2 Del Method Mechanical Ventil ation 10/09/23 09:00 FiO2 65 10/09/23 09:00 BMI result Body Mass Index 21.6 Const: General: no acute distress and other (Sedated on the vent) Eyes: Sclerae: sclerae normal EOM: EOMs intact bilaterally Neck: Neck: Yes no lymphadenopathy, Yes trachea midline and Yes supple Resp: Auscultation: clear to auscultation bilaterally Cardio: Rate: regular rate Rhythm: regular rhythm Heart sounds: no gallops, no murmurs and no rubs GI: Palpation (GI): Soft to palpation and Other GI palpation findings present ( Nontender) Auscultation: normal bowel sounds Extrem: General: Yes no pedal edema, No clubbing and No cyanosis Objective Data Labs 10/09/23 04:40 10/09/23 04:40 Labs: Laboratory Results - last 24 hr 10/08/23 10/08/23 10/08/23 11:05 17:06 23:53 WBC RBC Hgb Hct MCV MCH MCHC RDW Plt Count MPV Immature Gran % (Auto) Neut % (Auto) Lymph % (Auto) [place] % (Auto) Eos % (Auto) Baso % (Auto) Lymph # (Auto) [place] # (Auto) Eos # (Auto) Baso # (Auto) Abs Immat Gran (auto) Absolute Neuts (auto) Absolute Nucleated RBC Nucleated RBC % (auto) Neutrophils % (Manual) Band Neutrophils % Lymphocytes % (Manual) Monocytes % (Manual) Eosinophils % (Manual) Abs Neuts (Manual) Lymphocytes # (Manual) Monocytes # (Manual) Eosinophils # (Manual) Nucleated RBCs Smudge Cells Platelet Estimate Large Platelets Plt Morphology Comment RBC Morphology Polychromasia Macrocytosis Target Cells Tear Drop Cells Brady Cells Acanthocytes (Spur) VBG pH VBG pCO2 VBG pO2 VBG HCO3 VBG O2 Saturation VBG Base Excess Sodium Potassium Chloride Carbon Dioxide Anion Gap BUN Creatinine Estim Creat Clear Calc Estimated GFR POC Glucose 179 H 156 H 169 H Random Glucose Calcium Phosphorus Magnesium Total Bilirubin AST ALT Alkaline Phosphatase Total Protein Albumin 10/09/23 10/09/23 10/09/23 04:40 04:47 07:26 WBC 12.9 H RBC 4.75 Hgb 10.6 L Hct 31.6 L MCV 66.5 L MCH 22.3 L MCHC 33.5 RDW 14.6 Plt Count 256 MPV 10.8 Immature Gran % (Auto) Cancelled Neut % (Auto) Cancelled Lymph % (Auto) Cancelled [place] % (Auto) Cancelled Eos % (Auto) Cancelled Baso % (Auto) Cancelled Lymph # (Auto) Cancelled [place] # (Auto) Cancelled Eos # (Auto) Cancelled Baso # (Auto) Cancelled Abs Immat Gran (auto) Cancelled Absolute Neuts (auto) Cancelled Absolute Nucleated RBC 0.000 Nucleated RBC % (auto) 0.0 Neutrophils % (Manual) 73 Band Neutrophils % 12 H Lymphocytes % (Manual) 6 L Monocytes % (Manual) 6 Eosinophils % (Manual) 3 Abs Neuts (Manual) 11.0 H Lymphocytes # (Manual) 0.8 L Monocytes # (Manual) 0.8 Eosinophils # (Manual) 0.4 Nucleated RBCs 1 H Smudge Cells PRESENT Platelet Estimate NORMAL Large Platelets PRESENT Plt Morphology Comment NOTED RBC Morphology NOTED Polychromasia 1+ (0-2) Macrocytosis 1+ (5-14) Target Cells 1+ (5-14) Tear Drop Cells 2+ (3-5) [place] Cells 1+ (0-2) Acanthocytes (Spur) 1+ (0-2) VBG pH 7.31 L VBG pCO2 36 VBG pO2 46 VBG HCO3 18 L VBG O2 Saturation 70.0 VBG Base Excess -6.5 Sodium 142 Potassium 5.0 Chloride 105 Carbon Dioxide 18 L Anion Gap 24 H BUN 115 H Creatinine 4.12 H* Estim Creat Clear Calc 15.8 Estimated GFR 15 POC Glucose 148 H Random Glucose 151 H Calcium 9.9 Phosphorus 6.4 H Magnesium 3.5 H* Total Bilirubin 0.7 AST 26 ALT 16 Alkaline Phosphatase 62 Total Protein 8.5 H Albumin 3.7 Microbiology Microbiology Results: Microbiology 10/02/23 03:11 Blood - Central Line Blood Culture - Final No growth after 5 days. 10/02/23 03:11 Blood - Central Line Blood Culture - Final Coag negative Staphylococcus 10/02/23 06:40 Sputum - Suctioned Gram Stain - Final 10/02/23 06:40 Sputum - Suctioned Sputum Culture - Final 10/02/23 06:40 Urine Catheterized - Miguel Catheter Urine Culture - Final No growth. Progress Note: A&P Assessment and plan (1) Ileus: Status: Acute (2) AMBER (acute kidney injury): Status: Acute (3) Influenza: Status: Acute (4) HIV (human immunodeficiency virus infection): Status: Acute (5) Acute hypoxic respiratory failure: Status: Acute (6) TERRY (obstructive sleep apnea): Status: Acute (7) Hepatitis C: Status: Acute (8) COPD (chronic obstructive pulmonary disease): Status: Acute Plan Assessment: 62-year-old gentleman with underlying HIV on HAART, hep C admitted with acute hypoxic respiratory failure secondary to bacterial superinfection of underlying influenza now requiring ventilatory support Plan: Neuro: No acute issues. Cardiac: Septic shock, improving, continue to titrate off pressor support as tolerated. Pulmonary: Acute hypoxic respiratory failure secondary to bacterial superinfection of underlying influenza. Now requiring ventilatory support. Continue to titrate off as tolerated. Underlying TERRY. Renal: Acute kidney injury secondary to septic shock. Non oliguric. Continue to monitor renal indices and urine output. Endo: No acute issues. GI: Ileus, improving. General surgery service care appreciated. ID: Cultures negative to date. Underlying influenza A. Continue Tamiflu. Will monitor off antibiotics. Underlying HIV and hep C. CD4 count 154. Unable to continue HAART as unable to crush the medication. Heme/Onc: No acute issues. Psych: No acute issues. Miscellaneous: No acute issues. Prophylaxis: Heparin, ppi Diet: Tube feeds Critical care time spent: 60 minutes Quality Stroke Does the patient have a stroke diagnosis?: No VTE Prior VTE?: No VTE Risk Level:: Medical - moderate - high VTE Device Contraindication: N/A - Device Ordered VTE Drug Contraindication: N/A - Med Ordered
[2023-10-09] MEDS: propofoL 1,000 MG/100 ML VIAL 18.96 MG IVCONT (11:17)
[2023-10-09 12:12] LABS: Glucose, Whole Blood 154 mg/dL (60-115)
--- NOTE | 2023-10-09 12:47 | MHC.CM.PN ---
Pt continues on ventilatory support: no plans to wean today: Renal functioning worsening but distention from SBO improved. Pt is not medically stable and requires ICU LOC. CM to follow for finalization of d/c planning needs once needs can be better assessed.
[2023-10-09 17:45] LABS: Glucose, Whole Blood 129 mg/dL (60-115)
[2023-10-09] MEDS: Acetaminophen Oral Liquid 650 MG/20.3 ML SOLUTION 975 MG PO (23:30)
[2023-10-10] VITALS (37 sets, daily range): BP systolic 87–118; BP diastolic 46–78; PULSE 92–133; RESP 28–37; TEMP 34.5–38.8; O2SAT 90–97; BMI 20.9
[2023-10-10 00:21] LABS: Glucose, Whole Blood 201 mg/dL (60-115)
[2023-10-10] MEDS: Insulin Lispro 100 UNIT/ML 3 ML VIAL SUBCUT ×4 (00:23→17:52)
[2023-10-10] MEDS: propofoL 1,000 MG/100 ML VIAL 23.7 MG IVCONT ×6 (02:42→22:42)
[2023-10-10] MEDS: Norepinephrine Bitartrate/D5W 8 MG/250 ML PLAST..BAG 10.37 MG IV (02:43)
[2023-10-10] MEDS: Heparin Sodium,Porcine 5,000 UNIT/ML VIAL 5000 UNIT SUBCUT ×2 (04:14→15:36)
[2023-10-10] MEDS: Piperacillin Sodium/Tazobactam 2.25 GM in 0.9 % Sodium Chloride 50 ML IV ×4 (04:14→22:47)
[2023-10-10] MEDS: Albuterol/Iprat 2.5/0.5MG 3 ML AMPUL.NEB INHALE ×4 (04:27→23:25)
[2023-10-10 04:36] LABS: VBG HCO3 18 mmol/L (22-26); VBG pCO2 34 mmHg; VBG pH 7.34 (7.32-7.43); VBG pO2 51 mmHg
[2023-10-10 04:47] LABS: MANUAL DIFF FLAG NO
[2023-10-10 04:50] LABS: Basophils Percent Auto 0.2 % (0-2); Eosinophils Absolute Auto 0.2 X10*3/uL (0.0-0.4); Eosinophils Percent Auto 1.2 % (0-4); Hematocrit 30.7 % (42.0-52.0); Hemoglobin 10.4 g/dl (14.0-18.0); Imm Gran Abs Auto 0.22 X10*3/uL (0.00-0.03); Imm Gran Pct Auto 1.5 % (0.0-0.4); Lymphocytes Absolute Auto 0.6 X10*3/uL (1.2-4.9); Lymphocytes Percent Auto 4.5 % (20-40); Mean Corpuscular HGB Conc 33.9 g/dl (31.0-36.0); Mean Corpuscular Hemoglobin 22.2 pg (27.0-33.0); Mean Corpuscular Volume 65.6 fL (80.0-98.0); Mean Platelet Volume 11.2 fL (9.4-12.4); Monocytes Absolute Auto 1.5 X10*3/uL (0.1-1.2); Monocytes Percent Auto 10.5 % (2-11); NRBC Pct Auto 0.3 /100WBC (0.0-0.2); Neutrophils Absolute Auto 11.7 x10*3/uL (2.0-8.3); Neutrophils Percent Auto 82.1 % (45-73); Platelet Count 262 X10*3/uL (160-400); Red Blood Count 4.68 X10*6/uL (4.60-5.80); Red Cell Distribution Width 14.8 % (11.0-16.0); White Blood Count 14.3 X10*3/uL (4.8-10.8)
[2023-10-10 04:52] LABS: Venous Blood Gas Refer to POC result
[2023-10-10 05:06] LABS: Albumin Level 3.4 g/dL (3.5-5.0); Anion Gap 19 (12-20); Calcium 9.6 mg/dL (8.4-10.2); Carbon Dioxide 19 mmol/L (22-29); Chloride 106 mmol/L (96-108); Creatinine Clr Calc Pharmacy 18.5; Estimated Glomerular Filt Rate 16; Glucose Random 177 mg/dL (60-115); Magnesium 3.4 mg/dL (1.6-2.6); Phosphorus 4.6 mg/dL (2.7-4.5); Sodium 139 mmol/L (135-145)
[2023-10-10 05:15] LABS: Blood Urea Nitrogen 116 mg/dL (9-16)
[2023-10-10] MEDS: Omeprazole/Na Bicarb Oral Susp 20 MG/10 ML UD Cup 40 MG PO (05:21)
[2023-10-10] MEDS: Acetaminophen Oral Liquid 650 MG/20.3 ML SOLUTION 975 MG PO (05:58)
[2023-10-10] MEDS: Lactulose 20 GM/30 ML SOLUTION 30 GM PO ×2 (08:13→20:29)
[2023-10-10] MEDS: Chlorhexidine Gluc Oral Rinse 15 ML MOUTHWASH BUCCAL ×3 (08:13→20:29)
--- NOTE | 2023-10-10 09:40 | P.PNCC_ITS ---
Subjective Subjective Date of Service: 10/10/23 Interval History: 62-year-old gentleman with underlying HIV on HAART, hep C, COPD admitted on 10/02/2023 with acute hypoxic respiratory failure secondary to influenza with superimposed bacterial superinfection requiring intubation, pressor, and ventilatory support. Cultures are negative to date. Shock component has resolved. Now with abdominal distention secondary to ileus versus SBO, evaluated by general surgeon and deemed to underlying ileus. Abdominal distention is improved,renal function has plateaued, urine output is improving. No events overnight. Critical Care Time (minutes): 60 Physical Exam 2 Vital Signs: Vital Signs: Last Vital Signs Temp 101.5 F H 10/10/23 08:56 Pulse 132 H 10/10/23 08:56 Resp 35 H 10/10/23 08:56 BP 106/73 10/10/23 08:56 Pulse Ox 92 10/10/23 08:56 O2 Del Method Mechanical Ventil ation 10/10/23 08:56 FiO2 60 10/10/23 08:56 BMI result Body Mass Index 20.9 Const: General: no acute distress and other (sedated on the vent) Eyes: Sclerae: sclerae normal EOM: EOMs intact bilaterally Neck: Neck: Yes no lymphadenopathy, Yes trachea midline and Yes supple Resp: Auscultation: crackles bilateral Cardio: Rate: tachycardic Rhythm: regular rhythm Heart sounds: no gallops, no murmurs and no rubs GI: Palpation (GI): Soft to palpation and Other GI palpation findings present ( Nontender) Auscultation: normal bowel sounds Extrem: General: Yes no pedal edema, No clubbing and No cyanosis Objective Data Labs 10/10/23 04:29 10/10/23 04:29 Labs: Laboratory Results - last 24 hr 10/09/23 10/09/23 10/10/23 12:05 17:41 00:13 WBC RBC Hgb Hct MCV MCH MCHC RDW Plt Count MPV Immature Gran % (Auto) Neut % (Auto) Lymph % (Auto) [place] % (Auto) Eos % (Auto) Baso % (Auto) Lymph # (Auto) [place] # (Auto) Eos # (Auto) Baso # (Auto) Abs Immat Gran (auto) Absolute Neuts (auto) Absolute Nucleated RBC Nucleated RBC % (auto) VBG pH VBG pCO2 VBG pO2 VBG HCO3 VBG O2 Saturation VBG Base Excess Sodium Potassium Chloride Carbon Dioxide Anion Gap BUN Creatinine Estim Creat Clear Calc Estimated GFR POC Glucose 154 H 129 H 201 H Random Glucose Calcium Phosphorus Magnesium Albumin 10/10/23 10/10/23 04:28 04:29 WBC 14.3 H RBC 4.68 Hgb 10.4 L Hct 30.7 L MCV 65.6 L MCH 22.2 L MCHC 33.9 RDW 14.8 Plt Count 262 MPV 11.2 Immature Gran % (Auto) 1.5 H Neut % (Auto) 82.1 H Lymph % (Auto) 4.5 L [place] % (Auto) 10.5 Eos % (Auto) 1.2 Baso % (Auto) 0.2 Lymph # (Auto) 0.6 L [place] # (Auto) 1.5 H Eos # (Auto) 0.2 Baso # (Auto) 0.0 Abs Immat Gran (auto) 0.22 H Absolute Neuts (auto) 11.7 H Absolute Nucleated RBC 0.040 H Nucleated RBC % (auto) 0.3 H VBG pH 7.34 VBG pCO2 34 VBG pO2 51 VBG HCO3 18 L VBG O2 Saturation 79.0 VBG Base Excess -6.0 Sodium 139 Potassium 5.0 Chloride 106 Carbon Dioxide 19 L Anion Gap 19 BUN 116 H Creatinine 3.84 H Estim Creat Clear Calc 18.5 Estimated GFR 16 POC Glucose Random Glucose 177 H Calcium 9.6 Phosphorus 4.6 H Magnesium 3.4 H Albumin 3.4 L Microbiology Microbiology Results: Microbiology 10/02/23 03:11 Blood - Central Line Blood Culture - Final No growth after 5 days. 10/02/23 03:11 Blood - Central Line Blood Culture - Final Coag negative Staphylococcus 10/02/23 06:40 Sputum - Suctioned Gram Stain - Final 10/02/23 06:40 Sputum - Suctioned Sputum Culture - Final 10/02/23 06:40 Urine Catheterized - Miguel Catheter Urine Culture - Final No growth. Progress Note: A&P Assessment and plan (1) Ileus: Status: Acute (2) AMBER (acute kidney injury): Status: Acute (3) Influenza: Status: Acute (4) Pneumonia: Status: Acute (5) HIV (human immunodeficiency virus infection): Status: Acute (6) Hepatitis C: Status: Acute (7) COPD (chronic obstructive pulmonary disease): Status: Acute (8) Acute hypoxic respiratory failure: Status: Acute Plan Assessment: 62-year-old gentleman with underlying HIV on HAART, hep C admitted with acute hypoxic respiratory failure secondary to bacterial superinfection of underlying influenza now requiring ventilatory support Plan: Neuro: No acute issues. Cardiac: Septic shock, improving, continue to titrate off pressor support as tolerated. Pulmonary: Acute hypoxic respiratory failure secondary to bacterial superinfection of underlying influenza. Now requiring ventilatory support. Continue to titrate off as tolerated. Underlying TERRY. Renal: Acute kidney injury secondary to septic shock. Non oliguric. Continue to monitor renal indices and urine output. Endo: No acute issues. GI: Ileus, improving. General surgery service care appreciated. ID: Cultures negative to date. Underlying influenza A. Continue Tamiflu. Continue Cefepime. Underlying HIV and hep C. CD4 count 154. Unable to continue HAART as unable to crush the medication. Heme/Onc: No acute issues. Psych: No acute issues. Miscellaneous: No acute issues. Prophylaxis: Heparin, ppi Diet: Tube feeds Critical care time spent: 60 minutes Quality Stroke Does the patient have a stroke diagnosis?: No VTE Prior VTE?: No VTE Risk Level:: Medical - moderate - high VTE Device Contraindication: N/A - Device Ordered VTE Drug Contraindication: N/A - Med Ordered
[2023-10-10 11:50] LABS: Glucose, Whole Blood 201 mg/dL (60-115)
[2023-10-10 17:55] LABS: Glucose, Whole Blood 188 mg/dL (60-115)
--- NOTE | 2023-10-10 18:26 | PC.NURSE ---
This web content writer spoke with an older relative of the patient who was quite upset about the use of a cooling blanket to control the patient's fever. Education regarding the reasons for the use of the cooling blanket provided, but the relative remained upset. He intimated that he would be back later with the patient's son to speak with the doctor.
--- NOTE | 2023-10-10 19:12 | HO.SKINPHOTO ---
Location: Category: Stage: Length: Width: Depth: cm Location: Category: Stage: Length: Width: Depth: cm Location: Category: Stage: Length: Width: Depth: cm Location: Category: Stage: Length: Width: Depth: cm Location: Category: Stage: Length: Width: Depth: cm Location: upper L back Category: Stage: Length: Width: Depth: cm
[2023-10-10] MEDS: Norepinephrine Bitartrate/D5W 8 MG/250 ML PLAST..BAG 13.33 MG IV (22:45)
[2023-10-10 23:56] LABS: Glucose, Whole Blood 215 mg/dL (60-115)
[2023-10-11] VITALS (42 sets, daily range): BP systolic 78–148; BP diastolic 47–99; PULSE 82–135; RESP 19–54; TEMP 33.8–38.5; O2SAT 90–100; BMI 20.6
[2023-10-11] MEDS: Insulin Lispro 100 UNIT/ML 3 ML VIAL SUBCUT ×4 (00:27→17:16)
[2023-10-11] MEDS: Acetaminophen Oral Liquid 650 MG/20.3 ML SOLUTION 975 MG PO (01:00)
[2023-10-11] MEDS: propofoL 1,000 MG/100 ML VIAL 23.7 MG IVCONT ×5 (02:04→21:38)
[2023-10-11] MEDS: Albuterol/Iprat 2.5/0.5MG 3 ML AMPUL.NEB INHALE ×2 (04:26→11:58)
[2023-10-11 04:34] LABS: VBG Base Excess -8.4 mmol/L; VBG HCO3 18 mmol/L (22-26); VBG pCO2 41 mmHg; VBG pH 7.25 (7.32-7.43); VBG pO2 52 mmHg
[2023-10-11 04:37] LABS: Venous Blood Gas Refer to POC result
[2023-10-11] MEDS: Heparin Sodium,Porcine 5,000 UNIT/ML VIAL 5000 UNIT SUBCUT ×2 (04:38→15:12)
[2023-10-11] MEDS: Piperacillin Sodium/Tazobactam 2.25 GM in 0.9 % Sodium Chloride 50 ML IV ×4 (04:38→22:33)
[2023-10-11 04:48] LABS: Eosinophils Percent Auto 0.6 % (0-4); NRBC Pct Auto 0.2 /100WBC (0.0-0.2); PLT ABN DIST 1; SCAN SMEAR FLAG 1
[2023-10-11 04:50] LABS: Basophils Absolute Auto 0.1 X10*3/uL (0.0-0.2); Basophils Percent Auto 0.4 % (0-2); Eosinophils Absolute Auto 0.1 X10*3/uL (0.0-0.4); Hematocrit 30.7 % (42.0-52.0); Hemoglobin 10.5 g/dl (14.0-18.0); Imm Gran Abs Auto 0.32 X10*3/uL (0.00-0.03); Imm Gran Pct Auto 1.5 % (0.0-0.4); Lymphocytes Absolute Auto 0.7 X10*3/uL (1.2-4.9); Lymphocytes Percent Auto 3.4 % (20-40); MANUAL DIFF FLAG SCAN; Mean Corpuscular HGB Conc 34.2 g/dl (31.0-36.0); Mean Corpuscular Hemoglobin 22.4 pg (27.0-33.0); Mean Corpuscular Volume 65.5 fL (80.0-98.0); Mean Platelet Volume 10.8 fL (9.4-12.4); Monocytes Absolute Auto 1.5 X10*3/uL (0.1-1.2); Monocytes Percent Auto 7.3 % (2-11); Neutrophils Percent Auto 86.8 % (45-73); Platelet Count 279 X10*3/uL (160-400); Red Blood Count 4.69 X10*6/uL (4.60-5.80); White Blood Count 20.7 X10*3/uL (4.8-10.8)
[2023-10-11 05:07] LABS: Albumin Level 3.2 g/dL (3.5-5.0); Anion Gap 20 (12-20); Calcium 9.9 mg/dL (8.4-10.2); Carbon Dioxide 19 mmol/L (22-29); Chloride 105 mmol/L (96-108); Creatinine Clr Calc Pharmacy 18.3; Estimated Glomerular Filt Rate 16; Glucose Random 269 mg/dL (60-115); Magnesium 3.3 mg/dL (1.6-2.6); Phosphorus 6.1 mg/dL (2.7-4.5); Potassium 6.4 mmol/L (3.3-5.1); Sodium 138 mmol/L (135-145)
[2023-10-11 05:17] LABS: SLIDE REVIEW VERIFIED
[2023-10-11 05:24] LABS: Blood Urea Nitrogen 120 mg/dL (9-16)
[2023-10-11] MEDS: Omeprazole/Na Bicarb Oral Susp 20 MG/10 ML UD Cup 40 MG PO (05:42)
[2023-10-11] MEDS: Sodium Zirconium Cyclosilicate 10 GM POWD.PACK PO (05:42)
[2023-10-11] MEDS: Sodium Bicarbonate 8.4% 50 MEQ/50 ML VIAL IVPUSH (05:49)
[2023-10-11] MEDS: Furosemide 40 MG/4 ML VIAL IVPUSH (09:16)
[2023-10-11] MEDS: Chlorhexidine Gluc Oral Rinse 15 ML MOUTHWASH BUCCAL ×3 (09:16→20:15)
[2023-10-11] MEDS: vancomycin HCL 1,500 MG in 0.9 % Sodium Chloride 500 ML 333.33 MG IV (09:17)
--- NOTE | 2023-10-11 09:28 | PHA.PROG ---
Admission Date/Time: October 02, 2023 04:08 Indication: Other/possible sepsis Weight in k.3 kg Adjusted body weight in Kg: [place] body weight in Kg: Obesity Dosing Indication % IBW: Serum Creatinine - Last 168 Hours 10/05/23 10/06/23 10/07/23 04:25 04:27 02:10 Creatinine 1.68 H 2.16 H 2.92 H 10/07/23 10/08/23 10/09/23 05:34 04:38 04:40 Creatinine 3.03 H 3.92 H 4.12 H* 10/10/23 10/11/23 04:29 04:21 Creatinine 3.84 H 3.74 H Estimated CrCl and GFR - Last 168 Hours 10/05/23 10/06/23 10/07/23 04:25 04:27 02:10 Estim Creat Clear Calc 43.4 33.8 25.8 Estimated GFR 41 31 22 10/07/23 10/08/23 10/09/23 05:34 04:38 04:40 Estim Creat Clear Calc 22.3 17.2 15.8 Estimated GFR 21 16 15 10/10/23 10/11/23 04:29 04:21 Estim Creat Clear Calc 18.5 18.3 Estimated GFR 16 16 Vancomycin Loading Dose: 1500mg x 1 Current Vancomycin Dosing Regimen: 500mg Q24H Vancomycin Monitoring using AUC goal of 400 - 600 range with trough as surrogate marker: 497 mg/L Date and Time for next Vancomycin Level to be drawn: 10/12 @0700 Pharmacist Comments on Vancomycin Plan: AMBER, will continue to monitor renal function and adjust accordingly. Predicted trough of 17.8 mg/L Vancomycin dosing will take advantage of [employer] as a clinical decision support tool that uses Bayesian modeling to calculate individual patient's pharmacokinetic parameters and forecast the patient's drug concentration time course with the target goal AUC 24 range of 400 - 600 mg/L/hr.
[2023-10-11 09:40] LABS: Lactate Dehydrogenase 355 U/L (118-273)
--- NOTE | 2023-10-11 09:47 | PM.CCPN ---
Subjective Subjective Date of Service: 10/11/23 Interval History: 62-year-old gentleman with underlying HIV on HAART, hep C, COPD admitted on 10/02/2023 with acute hypoxic respiratory failure secondary to influenza with superimposed bacterial superinfection requiring intubation, pressor, and ventilatory support. Cultures are negative to date. Shock component has resolved. Now with abdominal distention secondary to ileus versus SBO, evaluated by general surgeon and deemed to underlying ileus. Abdominal distention is improved, renal function has plateaued, urine output is improving, but now with hyperkalemia. No events overnight. Critical Care Time (minutes): 60 Physical Exam Vital Signs: Vital Signs: Last Vital Signs Temp 101.3 F H 10/11/23 08:57 Pulse 135 H 10/11/23 08:57 Resp 20 10/11/23 08:57 BP 99/63 10/11/23 08:57 Pulse Ox 91 L 10/11/23 08:57 O2 Del Method Mechanical Ventil ation 10/11/23 08:57 FiO2 60 10/11/23 08:57 BMI result Body Mass Index 20.6 Const: General: no acute distress and other (Sedated on the vent) Eyes: Sclerae: sclerae normal EOM: EOMs intact bilaterally Neck: Neck: Yes no lymphadenopathy, Yes trachea midline and Yes supple Resp: Effort & Inspection: normal respiratory effort and no respiratory distress Auscultation: clear to auscultation bilaterally Cardio: Rate: tachycardic Rhythm: regular rhythm Heart sounds: no gallops, no murmurs and no rubs GI: Palpation (GI): Soft to palpation and Other GI palpation findings present ( Nontender) Auscultation: normal bowel sounds Extrem: General: Yes no pedal edema, No clubbing and No cyanosis Objective Data Labs 10/11/23 04:21 10/11/23 04:21 Labs: Laboratory Results - last 24 hr 10/10/23 10/10/23 10/10/23 11:46 17:47 23:46 WBC RBC Hgb Hct MCV MCH MCHC RDW Plt Count MPV Immature Gran % (Auto) Neut % (Auto) Lymph % (Auto) [place] % (Auto) Eos % (Auto) Baso % (Auto) Lymph # (Auto) [place] # (Auto) Eos # (Auto) Baso # (Auto) Abs Immat Gran (auto) Absolute Neuts (auto) Absolute Nucleated RBC Nucleated RBC % (auto) Smear Tech's Comments VBG pH VBG pCO2 VBG pO2 VBG HCO3 VBG O2 Saturation VBG Base Excess Sodium Potassium Chloride Carbon Dioxide Anion Gap BUN Creatinine Estim Creat Clear Calc Estimated GFR POC Glucose 201 H 188 H 215 H Random Glucose Calcium Phosphorus Magnesium Lactate Dehydrogenase Albumin 10/11/23 10/11/23 10/11/23 04:21 04:25 08:48 WBC 20.7 H RBC 4.69 Hgb 10.5 L Hct 30.7 L MCV 65.5 L MCH 22.4 L MCHC 34.2 RDW 15.0 Plt Count 279 MPV 10.8 Immature Gran % (Auto) 1.5 H Neut % (Auto) 86.8 H Lymph % (Auto) 3.4 L [place] % (Auto) 7.3 Eos % (Auto) 0.6 Baso % (Auto) 0.4 Lymph # (Auto) 0.7 L [place] # (Auto) 1.5 H Eos # (Auto) 0.1 Baso # (Auto) 0.1 Abs Immat Gran (auto) 0.32 H Absolute Neuts (auto) 18.0 H Absolute Nucleated RBC 0.050 H Nucleated RBC % (auto) 0.2 Smear Tech's Comments VERIFIED VBG pH 7.25 L VBG pCO2 41 VBG pO2 52 VBG HCO3 18 L VBG O2 Saturation 76.0 VBG Base Excess -8.4 Sodium 138 Potassium 6.4 H* D Chloride 105 Carbon Dioxide 19 L Anion Gap 20 BUN 120 H Creatinine 3.74 H Estim Creat Clear Calc 18.3 Estimated GFR 16 POC Glucose Random Glucose 269 H Calcium 9.9 Phosphorus 6.1 H Magnesium 3.3 H Lactate Dehydrogenase 355 H Albumin 3.2 L Microbiology Microbiology Results: Microbiology 10/02/23 06:40 Sputum - Suctioned Direct Acid Fast Bacilli Smear - Final 10/02/23 03:11 Blood - Central Line Blood Culture - Final No growth after 5 days. 10/02/23 03:11 Blood - Central Line Blood Culture - Final Coag negative Staphylococcus 10/02/23 06:40 Sputum - Suctioned Gram Stain - Final 10/02/23 06:40 Sputum - Suctioned Sputum Culture - Final 10/02/23 06:40 Urine Catheterized - Miguel Catheter Urine Culture - Final No growth. Progress Note: A&P Assessment and plan (1) Ileus: Status: Acute (2) AMBER (acute kidney injury): Status: Acute (3) Influenza: Status: Acute (4) Pneumonia: Status: Acute (5) HIV (human immunodeficiency virus infection): Status: Acute (6) Acute hypoxic respiratory failure: Status: Acute (7) Hepatitis C: Status: Acute (8) COPD (chronic obstructive pulmonary disease): Status: Acute Plan Assessment: 62-year-old gentleman with underlying HIV on HAART, hep C admitted with acute hypoxic respiratory failure secondary to bacterial superinfection of underlying influenza now requiring ventilatory support Plan: Neuro: No acute issues. Cardiac: Septic shock, improving, continue to titrate off pressor support as tolerated. Pulmonary: Acute hypoxic respiratory failure secondary to bacterial superinfection of underlying influenza. Now requiring ventilatory support. Continue to titrate off as tolerated. Underlying TERRY. Renal: Acute kidney injury secondary to septic shock. Non oliguric. Continue to monitor renal indices and urine output. Endo: No acute issues. GI: Ileus, improving. General surgery service care appreciated. ID: Cultures negative to date. Underlying influenza A. Continue Tamiflu. Continue Cefepime. Add vancomycin. Check LDH. Underlying HIV and hep C. CD4 count 154. Unable to continue HAART as unable to crush the medication. Heme/Onc: No acute issues. Psych: No acute issues. Miscellaneous: No acute issues. Prophylaxis: Heparin, ppi Diet: Tube feeds Critical care time spent: 60 minutes Quality Stroke Does the patient have a stroke diagnosis?: No VTE Prior VTE?: No VTE Risk Level:: Medical - moderate - high VTE Device Contraindication: N/A - Device Ordered VTE Drug Contraindication: N/A - Med Ordered
--- NOTE | 2023-10-11 10:02 | MHC.CLN ---
F/U PT REMAINS INTUBATED AND SEDATED DISCUSSED AT ROUNDS WITH PT RECEIVING PROMOTE AT MAX GOAL RATE 60ML/HR WITH 240ML FREE WATER FLUSHES Q 8 HRS PROVIDES 1440KCALS (1940KCALS WITH SEDATION; 29KCALS/KG), 90G PROTEIN (1.35G/KG), 1928ML TOTAL WATER (29ML/KG) RECOMMEND SWITCHING FORMULA TO NEPRO AT MAX GOAL RATE 30ML/HR WITH 240ML FWF Q 6 HRS TO PROVIDE 1296KCALS (1922KCALS WITH SEDATION; 29KCALS/KG), 58G PROTEIN (.87G/KG), 1483ML TOTAL WATER FROM FORMULA AND FLUSHES (22ML/KG) MONITOR TOLERANCE, RESIDUALS, AND LYTES
[2023-10-11] MEDS: metroNIDAZOLE/NS 500 MG/100 ML PIGGYBACK 100 MG IV ×2 (12:08→20:15)
[2023-10-11 12:15] LABS: Glucose, Whole Blood 181 mg/dL (60-115)
[2023-10-11] MEDS: Norepinephrine Bitartrate/D5W 8 MG/250 ML PLAST..BAG 28.14 MG IV (15:30)
--- NOTE | 2023-10-11 15:31 | MHC.CM.PN ---
PT REMAINS IN ICU ON VENTILATORY SUPPORT. PLAN FOR SEDATION VACATION TODAY PER MD ROUNDS. CM WILL CONTINUE TO FOLLOW FOR ANY CHANGE IN DC NEEDS/PLAN.
[2023-10-11 17:20] LABS: Glucose, Whole Blood 215 mg/dL (60-115)
[2023-10-11 18:23] LABS: Anion Gap 16 (12-20); Blood Urea Nitrogen 122 mg/dL (9-16); Calcium 9.8 mg/dL (8.4-10.2); Carbon Dioxide 23 mmol/L (22-29); Chloride 106 mmol/L (96-108); Creatinine Clr Calc Pharmacy 20.7; Estimated Glomerular Filt Rate 19; Glucose Random 224 mg/dL (60-115); Potassium 5.3 mmol/L (3.3-5.1); Sodium 140 mmol/L (135-145)
[2023-10-11] MEDS: Norepinephrine Bitartrate/D5W 8 MG/250 ML PLAST..BAG 37.03 MG IV (21:19)
[2023-10-12] VITALS (42 sets, daily range): BP systolic 80–154; BP diastolic 46–98; PULSE 86–132; RESP 17–38; TEMP 35–38.4; O2SAT 90–100
[2023-10-12 00:07] LABS: Glucose, Whole Blood 189 mg/dL (60-115)
[2023-10-12] MEDS: Insulin Lispro 100 UNIT/ML 3 ML VIAL SUBCUT ×4 (00:12→17:25)
[2023-10-12] MEDS: propofoL 1,000 MG/100 ML VIAL 18.96 MG IVCONT (01:21)
[2023-10-12] MEDS: Heparin Sodium,Porcine 5,000 UNIT/ML VIAL 5000 UNIT SUBCUT ×2 (04:28→15:57)
[2023-10-12] MEDS: metroNIDAZOLE/NS 500 MG/100 ML PIGGYBACK 100 MG IV ×3 (04:29→19:32)
[2023-10-12] MEDS: Norepinephrine Bitartrate/D5W 8 MG/250 ML PLAST..BAG 28.14 MG IV (04:29)
[2023-10-12] MEDS: Piperacillin Sodium/Tazobactam 2.25 GM in 0.9 % Sodium Chloride 50 ML IV ×4 (04:29→22:50)
[2023-10-12 04:48] LABS: VBG Base Excess -3.3 mmol/L; VBG HCO3 20 mmol/L (22-26); VBG pCO2 34 mmHg; VBG pH 7.38 (7.32-7.43); VBG pO2 52 mmHg
[2023-10-12 04:51] LABS: Venous Blood Gas Refer to POC result
[2023-10-12 05:30] LABS: Basophils Absolute Auto 0.1 X10*3/uL (0.0-0.2); Basophils Percent Auto 0.3 % (0-2); Eosinophils Absolute Auto 0.1 X10*3/uL (0.0-0.4); Eosinophils Percent Auto 0.5 % (0-4); Hematocrit 31.5 % (42.0-52.0); Imm Gran Abs Auto 0.39 X10*3/uL (0.00-0.03); Imm Gran Pct Auto 1.5 % (0.0-0.4); Lymphocytes Absolute Auto 0.8 X10*3/uL (1.2-4.9); Lymphocytes Percent Auto 3.2 % (20-40); MANUAL DIFF FLAG SCAN; Mean Corpuscular HGB Conc 34.9 g/dl (31.0-36.0); Mean Corpuscular Hemoglobin 22.4 pg (27.0-33.0); Mean Platelet Volume 10.5 fL (9.4-12.4); Monocytes Absolute Auto 1.5 X10*3/uL (0.1-1.2); Monocytes Percent Auto 5.8 % (2-11); NRBC Pct Auto 0.2 /100WBC (0.0-0.2); Neutrophils Absolute Auto 23.1 x10*3/uL (2.0-8.3); Neutrophils Percent Auto 88.7 % (45-73); Platelet Count 329 X10*3/uL (160-400); Red Blood Count 4.92 X10*6/uL (4.60-5.80); SCAN SMEAR FLAG 1
[2023-10-12] MEDS: propofoL 1,000 MG/100 ML VIAL 23.7 MG IVCONT ×5 (05:35→22:23)
[2023-10-12] MEDS: Omeprazole/Na Bicarb Oral Susp 20 MG/10 ML UD Cup 40 MG PO (05:35)
[2023-10-12 05:53] LABS: Alanine Aminotransferase 15 U/L (0-40); Albumin Level 3.1 g/dL (3.5-5.0); Alkaline Phosphatase 118 U/L (39-117); Anion Gap 18 (12-20); Aspartate Amino Transferase 28 U/L (5-37); Bilirubin Total 0.6 mg/dL (0.0-1.0); Blood Urea Nitrogen 113 mg/dL (9-16); Calcium 10.1 mg/dL (8.4-10.2); Carbon Dioxide 21 mmol/L (22-29); Chloride 104 mmol/L (96-108); Creatinine Clr Calc Pharmacy 23.3; Estimated Glomerular Filt Rate 23; Glucose Random 236 mg/dL (60-115); Magnesium 2.7 mg/dL (1.6-2.6); Phosphorus 3.9 mg/dL (2.7-4.5); Sodium 138 mmol/L (135-145); Total Protein 8.7 g/dL (6.5-8.0)
[2023-10-12 05:54] LABS: SLIDE REVIEW VERIFIED
--- NOTE | 2023-10-12 07:03 | HE.PHANOTE ---
[facility] patients level is due for 10/12. continue current dose. renal function down from 3.74 yesterday to 2.82 today.
[2023-10-12] MEDS: Albumin Human 25 % 100 ML IV ×3 (09:30→19:32)
[2023-10-12] MEDS: Furosemide 40 MG/4 ML VIAL IVPUSH (09:30)
[2023-10-12] MEDS: Norepinephrine Bitartrate/D5W 8 MG/250 ML PLAST..BAG 25.18 MG IV (09:31)
[2023-10-12] MEDS: vancomycin HCL 500 MG in 0.9 % Sodium Chloride 100 ML 110 MG IV (09:31)
[2023-10-12] MEDS: Chlorhexidine Gluc Oral Rinse 15 ML MOUTHWASH BUCCAL ×3 (10:13→19:32)
[2023-10-12 11:14] LABS: Glucose, Whole Blood 198 mg/dL (60-115)
--- NOTE | 2023-10-12 13:24 | PM.CCPN ---
Subjective Subjective Date of Service: 10/12/23 Interval History: 62-year-old gentleman with underlying HIV on HAART, hep C, COPD admitted on 10/02/2023 with acute hypoxic respiratory failure secondary to influenza with superimposed bacterial superinfection requiring intubation, pressor, and ventilatory support. Cultures are negative to date. Shock component has resolved. Now with abdominal distention secondary to ileus versus SBO, evaluated by general surgeon and deemed to underlying ileus. Abdominal distention is improved, renal function, urine output, and FiO2 requirements improving. No events overnight. Critical Care Time (minutes): 60 Physical Exam Vital Signs: Vital Signs: Last Vital Signs Temp 98.2 F 10/12/23 13:00 Pulse 117 H 10/12/23 13:00 Resp 34 H 10/12/23 13:00 BP 117/57 L 10/12/23 13:00 Pulse Ox 96 10/12/23 13:00 O2 Del Method Mechanical Ventil ation 10/12/23 13:00 FiO2 50 10/12/23 13:00 BMI result Body Mass Index 20.0 Const: General: no acute distress and other (Sedated on the vent) Eyes: Sclerae: sclerae normal EOM: EOMs intact bilaterally Neck: Neck: Yes no lymphadenopathy, Yes trachea midline and Yes supple Resp: Auscultation: clear to auscultation bilaterally Cardio: Rate: tachycardic Rhythm: regular rhythm Heart sounds: no gallops, no murmurs and no rubs GI: Palpation (GI): Soft to palpation and Other GI palpation findings present ( Nontender) Auscultation: normal bowel sounds Extrem: General: No clubbing, No cyanosis and Yes edema (1+ bilateral) Objective Data Labs 10/12/23 04:37 10/12/23 04:37 Labs: Laboratory Results - last 24 hr 10/11/23 10/11/23 10/12/23 17:05 17:54 00:00 WBC RBC Hgb Hct MCV MCH MCHC RDW Plt Count MPV Immature Gran % (Auto) Neut % (Auto) Lymph % (Auto) [place] % (Auto) Eos % (Auto) Baso % (Auto) Lymph # (Auto) [place] # (Auto) Eos # (Auto) Baso # (Auto) Abs Immat Gran (auto) Absolute Neuts (auto) Absolute Nucleated RBC Nucleated RBC % (auto) Smear Tech's Comments Smear Path Review VBG pH VBG pCO2 VBG pO2 VBG HCO3 VBG O2 Saturation VBG Base Excess Sodium 140 Potassium 5.3 H Chloride 106 Carbon Dioxide 23 Anion Gap 16 BUN 122 H Creatinine 3.27 H Estim Creat Clear Calc 20.7 Estimated GFR 19 POC Glucose 215 H 189 H Random Glucose 224 H Calcium 9.8 Phosphorus Magnesium Total Bilirubin AST ALT Alkaline Phosphatase Total Protein Albumin 10/12/23 10/12/23 10/12/23 04:37 04:42 11:08 WBC 26.0 H RBC 4.92 Hgb 11.0 L Hct 31.5 L MCV 64.0 L MCH 22.4 L MCHC 34.9 RDW 15.0 Plt Count 329 MPV 10.5 Immature Gran % (Auto) 1.5 H Neut % (Auto) 88.7 H Lymph % (Auto) 3.2 L [place] % (Auto) 5.8 Eos % (Auto) 0.5 Baso % (Auto) 0.3 Lymph # (Auto) 0.8 L [place] # (Auto) 1.5 H Eos # (Auto) 0.1 Baso # (Auto) 0.1 Abs Immat Gran (auto) 0.39 H Absolute Neuts (auto) 23.1 H Absolute Nucleated RBC 0.050 H Nucleated RBC % (auto) 0.2 Smear Tech's Comments VERIFIED Smear Path Review SEE NOTE VBG pH 7.38 VBG pCO2 34 VBG pO2 52 VBG HCO3 20 L VBG O2 Saturation 80.0 VBG Base Excess -3.3 Sodium 138 Potassium 5.0 Chloride 104 Carbon Dioxide 21 L Anion Gap 18 BUN 113 H Creatinine 2.82 H Estim Creat Clear Calc 23.3 Estimated GFR 23 POC Glucose 198 H Random Glucose 236 H Calcium 10.1 Phosphorus 3.9 Magnesium 2.7 H Total Bilirubin 0.6 AST 28 ALT 15 Alkaline Phosphatase 118 H Total Protein 8.7 H Albumin 3.1 L Microbiology Microbiology Results: Microbiology 10/02/23 06:40 Sputum - Suctioned Direct Acid Fast Bacilli Smear - Final 10/02/23 03:11 Blood - Central Line Blood Culture - Final No growth after 5 days. 10/02/23 03:11 Blood - Central Line Blood Culture - Final Coag negative Staphylococcus 10/02/23 06:40 Sputum - Suctioned Gram Stain - Final 10/02/23 06:40 Sputum - Suctioned Sputum Culture - Final 10/02/23 06:40 Urine Catheterized - Miguel Catheter Urine Culture - Final No growth. Progress Note: A&P Assessment and plan (1) Ileus: Status: Acute (2) AMBER (acute kidney injury): Status: Acute (3) Influenza: Status: Acute (4) Pneumonia: Status: Acute (5) HIV (human immunodeficiency virus infection): Status: Acute (6) Acute hypoxic respiratory failure: Status: Acute (7) COPD (chronic obstructive pulmonary disease): Status: Acute (8) Hepatitis C: Status: Acute Plan Assessment: 62-year-old gentleman with underlying HIV on HAART, hep C admitted with acute hypoxic respiratory failure secondary to bacterial superinfection of underlying influenza now requiring ventilatory support Plan: Neuro: No acute issues. Cardiac: Septic shock, improving, continue to titrate off pressor support as tolerated. Pulmonary: Acute hypoxic respiratory failure secondary to bacterial superinfection of underlying influenza. Now requiring ventilatory support. Continue to titrate off as tolerated. Underlying TERRY. Renal: Acute kidney injury secondary to septic shock, improving. Non oliguric. Continue to monitor renal indices and urine output. Endo: No acute issues. GI: Ileus, improving. General surgery service care appreciated. ID: Cultures negative to date. Continue empiric antibiotics. Heme/Onc: No acute issues. Psych: No acute issues. Miscellaneous: No acute issues. Prophylaxis: Heparin, ppi Diet: Tube feeds Critical care time spent: 60 minutes Quality Stroke Does the patient have a stroke diagnosis?: No VTE Prior VTE?: No VTE Risk Level:: Medical - moderate - high VTE Device Contraindication: N/A - Device Ordered VTE Drug Contraindication: N/A - Med Ordered
--- NOTE | 2023-10-12 13:45 | P.CDIM_ITS ---
PROVIDER RESPONSE TEXT: To clarify, the appropriate diagnosis supported by the clinical indicators: Ileus: Partial ileus QUERY TEXT: PHYSICIAN'S DOCUMENTATION REQUEST Date of Query: 10/12/2023 09:58 AM EST Patient Name: Earl Rincon Admit Date: 10/02/2023 Dear Devan Allen, A review of the medical record indicates additional documentation may be needed. Please review below and update the documentation accordingly. Clinical Indicators: CT 10/06 - Contrast filled mildly dilated small bowel loops with multiple air fluid levels might be se quela of partial small bowel obstruction. Surgery progress note: Ileus, abdominal distention - patient likely with ileus and pseudo-obstruction due to acute illness. Based on the above, could you clarify any specifics to the noted Ileus if known: Ileus partial, complete, incomplete etc Other Other (explain) Clinically unable to determine (explain) Thank you, Alla Nuno, CCS, CDIS Use of terms such as suspected, likely, concern for, or probable (associated with a specific diagnosi s that is being evaluated, monitored, or treated as if it exists) are acceptable and can be coded in the inpatient se tting, when documented at the time of discharge. Please use your independent medical judgment in providing your response. THIS QUERY IS PART OF THE PERMANENT MEDICAL RECORD
--- NOTE | 2023-10-12 14:01 | MHC.CM.PN ---
Pt continues care in ICU: on ventilatory support and working towards extubation: sedation vacation ongoing: not responding to commands: O2 requirements improving: plan is to continue to d/c sedation and attempt extubation. Broad referrals for SNF made as it is highly likely he will need STR. Pt lived in a [facility] adult group foster setting and had [employer] services . CM to follow
--- NOTE | 2023-10-12 14:18 | P.CONNP_ITS ---
History of Present Illness Reason for Consult Consult date: 10/12/23 Reason for consult: AMBER Chief Complaint Chief complaint: Acute hypoxic resp failure/ Sepsis History of Present Illness Narrative: 62-year-old patient with underlying history of hepatitis-C, COPD, pulmonary nodules, obstructive sleep apnea, HIV on HAART therapy (unknown compliance); During this hospitalization he has had wide fluctuations in the creatinine. He has had multiple episodes of hypotension. Serum creatinine has been staying in the low threes and the peak creatinine of more than 4. For the last few days creatinine has been trending downwards. He has received Lasix and currently nonoliguric. Review of Systems Review of Systems Yes Unobtainable due to mental status PMFSH Past Medical History Medical History Pneumonia TERRY (obstructive sleep apnea) Pulmonary nodules Hepatitis C HIV disease COPD (chronic obstructive pulmonary disease) Family History Family history: reviewed and not pertinent Social History Social History Household Members: Unknown / Unable to assess Housing: Unknown / Unable to assess Patient Tobacco Use Status: Tobacco use Unknown Tobacco use type: Cigarette Cigarette Packs Per Day: 1 Cigarettes Per Day: 4 Years Smoked: 30 Years Substance Use Type: Unknown Meds Allergies Allergy/AdvReac Type Severity Reaction Status Date / Time No Known Allergies Allergy Verified 06/24/23 14:50 [No Known Allergies*] Active Medications: Current Medications Acetaminophen (Acetaminophen Oral Liquid 650 Mg/20.3 Ml Solution) 975 mg PO Q8H PRN PRN Reason: Fever >100.4 Last Admin: 10/11/23 01:00 Dose: 975 mg Chlorhexidine Gluconate (Chlorhexidine Gluc Oral Rinse 15 Ml Mouthwash) 15 ml BUCCAL TID [facility] Last Admin: 10/12/23 13:54 Dose: 15 ml Dextrose (Dextrose 50 % 25 Gm/50 Ml Syringe) 25 gm IVPUSH Q15M PRN; Protocol PRN Reason: per Hypoglycemia Standing Ord. Glucose (Glucose Gel 15 Gm Gel..Gram.) 15 gm PO Q15M PRN; Protocol PRN Reason: per Hypoglycemia Standing Ord. Heparin Sodium (Porcine) (Heparin Sodium,Porcine 5,000 Unit/Ml Vial) 5,000 unit SUBCUT Q12H [facility] Last Admin: 10/12/23 04:28 Dose: 5,000 unit Propofol (Diprivan) 1,000 mg in 100 mls @ 0 mls/hr IVCONT .Q0M [facility]; Protocol Last Admin: 10/12/23 13:54 Dose: 50 mcg/kg/min, 23.7 mls/hr Norepinephrine Bitartrate (Levophed) 8 mg in 250 mls @ 0 mls/hr IV .Q0M [facility]; Protocol Last Titration: 10/12/23 10:55 Dose: 0.06 mcg/kg/min, 8.89 mls/hr Piperacillin Sod/Tazobactam (Sod 2.25 gm/ Sodium Chloride) 50 mls @ 100 mls/hr IV Q6H [facility] Last Infusion: 10/12/23 10:13 Dose: Infused Vancomycin HCl 500 mg/ Sodium (Chloride) 110 mls @ 110 mls/hr IV Q24H [facility] Last Infusion: 10/12/23 10:40 Dose: Infused Metronidazole (Flagyl) 500 mg in 100 mls @ 100 mls/hr IV Q8H [facility] Last Infusion: 10/12/23 12:18 Dose: Infused Albumin Human (Kedbumin 25 %) 100 mls @ 100 mls/hr IV Q6H [facility] Stop: 10/13/23 03:59 Last Admin: 10/12/23 13:54 Dose: 100 mls/hr Insulin Human Lispro (Insulin Lispro 100 Unit/Ml 3 Ml Vial) 0 unit SUBCUT Q6H [facility]; Protocol Last Admin: 10/12/23 11:10 Dose: 2 unit Omeprazole (Omeprazole/Na Bicarb Oral Susp 20 Mg/10 Ml Ud Cup) 40 mg PO DAILY@0630 [facility] Last Admin: 10/12/23 05:35 Dose: 40 mg Ondansetron HCl (Ondansetron Hcl 4 Mg/2 Ml Vial) 4 mg IVPUSH Q4H PRN PRN Reason: Nausea and Vomiting Last Admin: 10/03/23 08:40 Dose: 4 mg Pharmacy Consult (Consult Rx Vancomycin Dosing) 1 each MISCELLANE DAILY PRN PRN Reason: Consult order Home Medications Medication Instructions Recorded Confirmed Last Taken Type bictegravir 50 mg-emtricitabine 1 tab PO DAILY 04/24/22 10/02/23 Unknown History 200 mg-tenofovir alafenam 25 mg tablet (Biktarvy) cherellest 10 mg tablet 10 mg PO BEDTIME 04/24/22 10/02/23 Unknown History nebulizers 08/14/22 Unknown History dapagliflozin propanediol 10 mg 10 mg PO DAILY 10/30/22 10/02/23 Unknown History tablet (Farxiga) furosemide 40 mg tablet 40 mg PO DAILY 10/30/22 10/02/23 Unknown History spironolactone 25 mg tablet 12.5 mg PO DAILY 11/13/22 10/02/23 Unknown History atorvastatin 40 mg tablet 40 mg PO BEDTIME 04/30/23 10/02/23 Unknown History sacubitril 49 mg-valsartan 51 mg 1 tab PO BID 04/30/23 10/02/23 Unknown History tablet (Entresto) cholecalciferol (vitamin D3) 1,250 1,250 mcg PO QWEEK 10/02/23 10/02/23 Unknown History mcg (50,000 unit) capsule Physical Exam Vital Signs: Last Vital Signs Temp 99.3 F 10/12/23 14:00 Pulse 122 H 10/12/23 14:00 Resp 26 H 10/12/23 14:00 BP 102/54 L 10/12/23 14:00 Pulse Ox 94 10/12/23 14:00 O2 Del Method Mechanical Ventilation 10/12/23 14:00 FiO2 50 10/12/23 14:00 BMI result Body Mass Index 20.0 Const General: ill appearing Neck Neck: Yes supple Resp Auscultation: clear to auscultation bilaterally Cardio Palpation: no palpable S3 Heart sounds: no rubs GI Palpation (GI): Soft to palpation Auscultation: normal bowel sounds Neuro Motor exam (neuro): no asterixis Results Lab Results 10/12/23 04:37 10/12/23 04:37 Lab results: Chemistry 10/10/23 10/11/23 10/11/23 04:29 04:21 17:54 Sodium 139 138 140 Potassium 5.0 6.4 H* D 5.3 H Carbon Dioxide 19 L 19 L 23 BUN 116 H 120 H 122 H Creatinine 3.84 H 3.74 H 3.27 H Calcium 9.6 9.9 9.8 Phosphorus 4.6 H 6.1 H 10/12/23 04:37 Sodium 138 Potassium 5.0 Carbon Dioxide 21 L BUN 113 H Creatinine 2.82 H Calcium 10.1 Phosphorus 3.9 Hematology 10/10/23 10/11/23 10/12/23 04:29 04:21 04:37 WBC 14.3 H 20.7 H 26.0 H Hgb 10.4 L 10.5 L 11.0 L Plt Count 262 279 329 Assessment and Plan (1) AMBER (acute kidney injury): Status: Acute (2) Hyperkalemia: Status: Acute (3) CKD (chronic kidney disease): Status: Acute Plan 62-year-old man with HIV has acute kidney injury superimposed on chronic kidney disease with hyperkalemia and mild metabolic acidosis. Depression diagnosed with acute kidney injury would include acute tubular necrosis from various episodes of hypotension as well as underlying infectious process. However interstitial nephritis should be ruled out. 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 Recommendations Check urine for protein creatinine ratio. Check urine for eosinophils. Continue to avoid nephrotoxic agents. Can use Lasix judiciously to optimize fluid status. Watch urine output closely. No indication for dialysis at this time. The serum creatinine is trending down and baseline is yet to be determined. Based on the urine studies and serologies he might require a kidney biopsy when he is more stable. We will follow with the team. Procedures Date of Service Date of Service: 10/12/23
[2023-10-12 17:17] LABS: Glucose, Whole Blood 208 mg/dL (60-115)
[2023-10-12 23:50] LABS: Glucose, Whole Blood 194 mg/dL (60-115)
[2023-10-13] VITALS (39 sets, daily range): BP systolic 92–146; BP diastolic 56–90; PULSE 93–162; RESP 17–45; TEMP 35.1–38.9; O2SAT 92–100
[2023-10-13] MEDS: Insulin Lispro 100 UNIT/ML 3 ML VIAL SUBCUT ×3 (00:29→12:35)
[2023-10-13] MEDS: Albumin Human 25 % 100 ML IV (02:41)
[2023-10-13] MEDS: propofoL 1,000 MG/100 ML VIAL 23.7 MG IVCONT ×2 (02:41→05:17)
[2023-10-13] MEDS: Norepinephrine Bitartrate/D5W 8 MG/250 ML PLAST..BAG 14.81 MG IV (02:59)
[2023-10-13] MEDS: metroNIDAZOLE/NS 500 MG/100 ML PIGGYBACK 100 MG IV ×3 (03:20→19:10)
[2023-10-13] MEDS: Heparin Sodium,Porcine 5,000 UNIT/ML VIAL 5000 UNIT SUBCUT ×2 (03:59→16:30)
[2023-10-13 04:47] LABS: VBG Base Excess -3.4 mmol/L; VBG HCO3 20 mmol/L (22-26); VBG pCO2 31 mmHg; VBG pH 7.41 (7.32-7.43); VBG pO2 49 mmHg
[2023-10-13 05:02] LABS: Basophils Absolute Auto 0.1 X10*3/uL (0.0-0.2); Basophils Percent Auto 0.3 % (0-2); Eosinophils Absolute Auto 0.1 X10*3/uL (0.0-0.4); Eosinophils Percent Auto 0.9 % (0-4); NRBC Pct Auto 0.2 /100WBC (0.0-0.2); PLT ABN DIST 1; SCAN SMEAR FLAG 1
[2023-10-13 05:04] LABS: Hematocrit 25.3 % (42.0-52.0); Hemoglobin 8.8 g/dl (14.0-18.0); Imm Gran Abs Auto 0.23 X10*3/uL (0.00-0.03); Imm Gran Pct Auto 1.4 % (0.0-0.4); Lymphocytes Absolute Auto 0.9 X10*3/uL (1.2-4.9); Lymphocytes Percent Auto 5.2 % (20-40); Mean Corpuscular HGB Conc 34.8 g/dl (31.0-36.0); Mean Corpuscular Hemoglobin 21.9 pg (27.0-33.0); Mean Corpuscular Volume 63.1 fL (80.0-98.0); Mean Platelet Volume 11.2 fL (9.4-12.4); Monocytes Absolute Auto 1.2 X10*3/uL (0.1-1.2); Monocytes Percent Auto 7.4 % (2-11); Neutrophils Percent Auto 84.8 % (45-73); Platelet Count 286 X10*3/uL (160-400); Red Blood Count 4.01 X10*6/uL (4.60-5.80); Red Cell Distribution Width 14.3 % (11.0-16.0); White Blood Count 16.5 X10*3/uL (4.8-10.8)
[2023-10-13 05:10] LABS: MANUAL DIFF FLAG NO
[2023-10-13] MEDS: Piperacillin Sodium/Tazobactam 2.25 GM in 0.9 % Sodium Chloride 50 ML IV ×4 (05:16→23:03)
[2023-10-13] MEDS: Omeprazole/Na Bicarb Oral Susp 20 MG/10 ML UD Cup 40 MG PO (05:17)
[2023-10-13 05:18] LABS: Venous Blood Gas Refer to POC result
[2023-10-13 05:21] LABS: Alanine Aminotransferase 13 U/L (0-40); Albumin Level 4.4 g/dL (3.5-5.0); Alkaline Phosphatase 100 U/L (39-117); Anion Gap 19 (12-20); Aspartate Amino Transferase 27 U/L (5-37); Bilirubin Total 0.9 mg/dL (0.0-1.0); Blood Urea Nitrogen 115 mg/dL (9-16); Calcium 10.8 mg/dL (8.4-10.2); Carbon Dioxide 19 mmol/L (22-29); Chloride 106 mmol/L (96-108); Creatinine Clr Calc Pharmacy 26.6; Estimated Glomerular Filt Rate 27; Glucose Random 193 mg/dL (60-115); Magnesium 2.3 mg/dL (1.6-2.6); Phosphorus 3.5 mg/dL (2.7-4.5); Sodium 140 mmol/L (135-145); Total Protein 8.9 g/dL (6.5-8.0)
[2023-10-13] MEDS: 0.9 % Sodium Chloride Flush 10 ML SYRINGE IVFLUSH ×3 (07:26→23:05)
[2023-10-13] MEDS: Chlorhexidine Gluc Oral Rinse 15 ML MOUTHWASH BUCCAL ×3 (07:26→21:17)
[2023-10-13 07:42] LABS: Vancomycin Random 17.5 mcg/mL (15-20)
--- NOTE | 2023-10-13 07:54 | HE.PHANOTE ---
RACHANA RAMIREZ Patients level came back this morning at 17.5, will continue with current dose of 500 mg Q24H. next level 10/14 @0700.
[2023-10-13] MEDS: vancomycin HCL 500 MG in 0.9 % Sodium Chloride 100 ML 110 MG IV (08:39)
[2023-10-13] MEDS: Furosemide 40 MG/4 ML VIAL IVPUSH (09:25)
--- NOTE | 2023-10-13 09:30 | MHC.CLN ---
F/U PT REMAINS INTUBATED AND SEDATED DISCUSSED AT ROUNDS WITH PT RECEIVING NEPRO AT MAX GOAL RATE 30ML/HR WITH 240ML FWF Q 6 HRS PROVIDEs 1296KCALS (1922KCALS WITH SEDATION; 29KCALS/KG), 58G PROTEIN (.87G/KG), 1483ML TOTAL WATER FROM FORMULA AND FLUSHES (22ML/KG) CONTINUE TO MONITOR TOLERANCE, RESIDUALS, AND LYTES
--- NOTE | 2023-10-13 09:55 | P.PNCC_ITS ---
Subjective Subjective Date of Service: 10/13/23 Interval History: 62-year-old gentleman with underlying HIV on HAART, hep C, COPD admitted on 10/02/2023 with acute hypoxic respiratory failure secondary to influenza with superimposed bacterial superinfection requiring intubation, pressor, and ventilatory support. Cultures are negative to date. Shock component has resolved. Now with abdominal distention secondary to ileus versus SBO, evaluated by general surgeon and deemed to underlying ileus. Abdominal distention is improved, renal function, urine output, and FiO2 requirements improving. No events overnight. Critical Care Time (minutes): 60 Physical Exam 2 Vital Signs: Vital Signs: Last Vital Signs Temp 97.0 F 10/13/23 09:52 Pulse 100 10/13/23 09:53 Resp 27 H 10/13/23 09:52 BP 146/90 H 10/13/23 09:53 Pulse Ox 94 10/13/23 09:52 O2 Del Method Mechanical Ventil ation 10/13/23 09:52 FiO2 40 10/13/23 09:52 BMI result Body Mass Index 20.0 Const: General: no acute distress and other (Sedated on the vent) Eyes: Sclerae: sclerae normal EOM: EOMs intact bilaterally Neck: Neck: Yes no lymphadenopathy, Yes trachea midline and Yes supple Resp: Auscultation: clear to auscultation bilaterally Cardio: Rate: tachycardic Rhythm: regular rhythm Heart sounds: no gallops, no murmurs and no rubs GI: Palpation (GI): Soft to palpation and Other GI palpation findings present ( Nontender) Auscultation: normal bowel sounds Extrem: General: Yes no pedal edema, No clubbing and No cyanosis Objective Data Labs 10/13/23 04:35 10/13/23 04:35 Labs: Laboratory Results - last 24 hr 10/12/23 10/12/23 10/12/23 04:37 11:08 17:12 WBC RBC Hgb Hct MCV MCH MCHC RDW Plt Count MPV Immature Gran % (Auto) Neut % (Auto) Lymph % (Auto) [place] % (Auto) Eos % (Auto) Baso % (Auto) Lymph # (Auto) [place] # (Auto) Eos # (Auto) Baso # (Auto) Abs Immat Gran (auto) Absolute Neuts (auto) Absolute Nucleated RBC Nucleated RBC % (auto) Smear Path Review SEE NOTE VBG pH VBG pCO2 VBG pO2 VBG HCO3 VBG O2 Saturation VBG Base Excess Sodium Potassium Chloride Carbon Dioxide Anion Gap BUN Creatinine Estim Creat Clear Calc Estimated GFR POC Glucose 198 H 208 H Random Glucose Calcium Phosphorus Magnesium Total Bilirubin AST ALT Alkaline Phosphatase Total Protein Albumin Random Vancomycin 10/12/23 10/13/23 10/13/23 23:44 04:35 04:40 WBC 16.5 H RBC 4.01 L Hgb 8.8 L Hct 25.3 L MCV 63.1 L MCH 21.9 L MCHC 34.8 RDW 14.3 Plt Count 286 MPV 11.2 Immature Gran % (Auto) 1.4 H Neut % (Auto) 84.8 H Lymph % (Auto) 5.2 L [place] % (Auto) 7.4 Eos % (Auto) 0.9 Baso % (Auto) 0.3 Lymph # (Auto) 0.9 L [place] # (Auto) 1.2 Eos # (Auto) 0.1 Baso # (Auto) 0.1 Abs Immat Gran (auto) 0.23 H Absolute Neuts (auto) 14.0 H Absolute Nucleated RBC 0.030 H Nucleated RBC % (auto) 0.2 Smear Path Review VBG pH 7.41 VBG pCO2 31 VBG pO2 49 VBG HCO3 20 L VBG O2 Saturation 75.0 VBG Base Excess -3.4 Sodium 140 Potassium 4.0 Chloride 106 Carbon Dioxide 19 L Anion Gap 19 BUN 115 H Creatinine 2.47 H Estim Creat Clear Calc 26.6 Estimated GFR 27 POC Glucose 194 H Random Glucose 193 H Calcium 10.8 H D Phosphorus 3.5 Magnesium 2.3 Total Bilirubin 0.9 AST 27 ALT 13 Alkaline Phosphatase 100 Total Protein 8.9 H Albumin 4.4 Random Vancomycin 10/13/23 07:04 WBC RBC Hgb Hct MCV MCH MCHC RDW Plt Count MPV Immature Gran % (Auto) Neut % (Auto) Lymph % (Auto) [place] % (Auto) Eos % (Auto) Baso % (Auto) Lymph # (Auto) [place] # (Auto) Eos # (Auto) Baso # (Auto) Abs Immat Gran (auto) Absolute Neuts (auto) Absolute Nucleated RBC Nucleated RBC % (auto) Smear Path Review VBG pH VBG pCO2 VBG pO2 VBG HCO3 VBG O2 Saturation VBG Base Excess Sodium Potassium Chloride Carbon Dioxide Anion Gap BUN Creatinine Estim Creat Clear Calc Estimated GFR POC Glucose Random Glucose Calcium Phosphorus Magnesium Total Bilirubin AST ALT Alkaline Phosphatase Total Protein Albumin Random Vancomycin 17.5 Microbiology Microbiology Results: Microbiology 10/02/23 06:40 Sputum - Suctioned Direct Acid Fast Bacilli Smear - Final 10/02/23 03:11 Blood - Central Line Blood Culture - Final No growth after 5 days. 10/02/23 03:11 Blood - Central Line Blood Culture - Final Coag negative Staphylococcus 10/02/23 06:40 Sputum - Suctioned Gram Stain - Final 10/02/23 06:40 Sputum - Suctioned Sputum Culture - Final 10/02/23 06:40 Urine Catheterized - Miguel Catheter Urine Culture - Final No growth. Progress Note: A&P Assessment and plan (1) CKD (chronic kidney disease): Status: Acute (2) Ileus: Status: Acute (3) AMBER (acute kidney injury): Status: Acute (4) Influenza: Status: Acute (5) Pneumonia: Status: Acute (6) HIV (human immunodeficiency virus infection): Status: Acute (7) Acute hypoxic respiratory failure: Status: Acute (8) Hepatitis C: Status: Acute (9) COPD (chronic obstructive pulmonary disease): Status: Acute Plan Assessment: 62-year-old gentleman with underlying HIV on HAART, hep C admitted with acute hypoxic respiratory failure secondary to bacterial superinfection of underlying influenza now requiring ventilatory support Plan: Neuro: No acute issues. Cardiac: Septic shock, improving, continue to titrate off pressor support as tolerated. Pulmonary: Acute hypoxic respiratory failure secondary to bacterial superinfection of underlying influenza. Now requiring ventilatory support. Continue to titrate off as tolerated. Underlying TERRY. Renal: Acute kidney injury secondary to septic shock, improving. Non oliguric. Continue to monitor renal indices and urine output. Endo: No acute issues. GI: Ileus, resolved. General surgery service care appreciated. ID: Cultures negative to date. Continue empiric antibiotics. Heme/Onc: No acute issues. Psych: No acute issues. Miscellaneous: No acute issues. Prophylaxis: Heparin, ppi Diet: Tube feeds Critical care time spent: 60 minutes Quality Stroke Does the patient have a stroke diagnosis?: No VTE Prior VTE?: No VTE Risk Level:: Medical - moderate - high VTE Device Contraindication: N/A - Device Ordered VTE Drug Contraindication: N/A - Med Ordered
--- NOTE | 2023-10-13 10:25 | PC.NURSE ---
sedation vacation initiated at 0852. Pt switched to PSV of 10 at 0938, then PSV 5 at 1005. Pt nodding yes/no to questionsPt extubated at 1020 per MD order. RT at bedside. Pt given oral suction and supplemental oxygen via HFNC, 50L at 50%. RT provided some deep suctioning as well.
[2023-10-13 11:55] LABS: Glucose, Whole Blood 228 mg/dL (60-115)
[2023-10-13 18:22] LABS: Glucose, Whole Blood 140 mg/dL (60-115)
[2023-10-13] MEDS: Acetaminophen 1,000 MG/100 ML PIGGYBACK 400 MG IV (19:07)
--- NOTE | 2023-10-13 20:55 | P.PNNP_ITS ---
Subjective Subjective Date of Service: 10/13/23 Interval history: No events overnight. Seen AM. D/W ICU Physical Exam 2 Vital Signs: Vital Signs: Last Vital Signs Temp 99.5 F 10/13/23 20:00 Pulse 117 H 10/13/23 20:00 Resp 37 H 10/13/23 20:00 BP 92/65 10/13/23 20:00 Pulse Ox 97 10/13/23 20:00 O2 Del Method High Flow Nasal C annula 10/13/23 20:00 O2 Flow Rate 50 10/13/23 20:00 FiO2 50 10/13/23 20:00 BMI result Body Mass Index 20.0 Const: General: no acute distress HEENT: Head: Yes normocephalic Mouth: Normal oral and palatal mucosa present Neck: Neck: Yes supple Resp: Auscultation: diminished lung sounds Cardio: Jugular venous distension: no JVD Rate: regular rate GI: Palpation (GI): Soft to palpation Auscultation: normal bowel sounds Neuro: Other: Intubated and sedated Objective Data Labs 10/13/23 04:35 10/13/23 04:35 Labs: Laboratory Results - last 24 hr 10/12/23 10/13/23 10/13/23 23:44 04:35 04:40 WBC 16.5 H RBC 4.01 L Hgb 8.8 L Hct 25.3 L MCV 63.1 L MCH 21.9 L MCHC 34.8 RDW 14.3 Plt Count 286 MPV 11.2 Immature Gran % (Auto) 1.4 H Neut % (Auto) 84.8 H Lymph % (Auto) 5.2 L [place] % (Auto) 7.4 Eos % (Auto) 0.9 Baso % (Auto) 0.3 Lymph # (Auto) 0.9 L [place] # (Auto) 1.2 Eos # (Auto) 0.1 Baso # (Auto) 0.1 Abs Immat Gran (auto) 0.23 H Absolute Neuts (auto) 14.0 H Absolute Nucleated RBC 0.030 H Nucleated RBC % (auto) 0.2 VBG pH 7.41 VBG pCO2 31 VBG pO2 49 VBG HCO3 20 L VBG O2 Saturation 75.0 VBG Base Excess -3.4 Sodium 140 Potassium 4.0 Chloride 106 Carbon Dioxide 19 L Anion Gap 19 BUN 115 H Creatinine 2.47 H Estim Creat Clear Calc 26.6 Estimated GFR 27 POC Glucose 194 H Random Glucose 193 H Calcium 10.8 H D Phosphorus 3.5 Magnesium 2.3 Total Bilirubin 0.9 AST 27 ALT 13 Alkaline Phosphatase 100 Total Protein 8.9 H Albumin 4.4 Random Vancomycin 10/13/23 10/13/23 10/13/23 07:04 11:49 18:10 WBC RBC Hgb Hct MCV MCH MCHC RDW Plt Count MPV Immature Gran % (Auto) Neut % (Auto) Lymph % (Auto) [place] % (Auto) Eos % (Auto) Baso % (Auto) Lymph # (Auto) [place] # (Auto) Eos # (Auto) Baso # (Auto) Abs Immat Gran (auto) Absolute Neuts (auto) Absolute Nucleated RBC Nucleated RBC % (auto) VBG pH VBG pCO2 VBG pO2 VBG HCO3 VBG O2 Saturation VBG Base Excess Sodium Potassium Chloride Carbon Dioxide Anion Gap BUN Creatinine Estim Creat Clear Calc Estimated GFR POC Glucose 228 H 140 H Random Glucose Calcium Phosphorus Magnesium Total Bilirubin AST ALT Alkaline Phosphatase Total Protein Albumin Random Vancomycin 17.5 Microbiology Microbiology Results: Microbiology 10/02/23 06:40 Sputum - Suctioned Direct Acid Fast Bacilli Smear - Final 10/02/23 03:11 Blood - Central Line Blood Culture - Final No growth after 5 days. 10/02/23 03:11 Blood - Central Line Blood Culture - Final Coag negative Staphylococcus 10/02/23 06:40 Sputum - Suctioned Gram Stain - Final 10/02/23 06:40 Sputum - Suctioned Sputum Culture - Final 10/02/23 06:40 Urine Catheterized - Miguel Catheter Urine Culture - Final No growth. Procedures Date of Service Date of Service: 10/13/23 Assessment & Plan Assessment and plan (1) AMBER (acute kidney injury): Status: Acute Plan Acute Kidney Injury due to tubular injury UO good; Serum creatinine better No indication for renal replacement C/W rest of current supportive care Labs AM; Shall closely follow up Progress Note: Quality Stroke Does the patient have a stroke diagnosis?: No
[2023-10-13 23:55] LABS: Glucose, Whole Blood 157 mg/dL (60-115)
[2023-10-14] VITALS (45 sets, daily range): BP systolic 68–138; BP diastolic 38–86; PULSE 106–137; RESP 13–49; TEMP 34.9–38.8; O2SAT 9–98; BMI 20.2
[2023-10-14 03:08] LABS: VBG Base Excess -5.9 mmol/L; VBG HCO3 19 mmol/L (22-26); VBG pCO2 37 mmHg; VBG pH 7.32 (7.32-7.43); VBG pO2 47 mmHg
[2023-10-14 03:10] LABS: Venous Blood Gas Refer to POC result
[2023-10-14] MEDS: Heparin Sodium,Porcine 5,000 UNIT/ML VIAL 5000 UNIT SUBCUT ×2 (03:13→16:45)
[2023-10-14] MEDS: metroNIDAZOLE/NS 500 MG/100 ML PIGGYBACK 100 MG IV ×3 (03:13→19:39)
[2023-10-14] MEDS: Acetaminophen 1,000 MG/100 ML PIGGYBACK 400 MG IV (03:21)
[2023-10-14] MEDS: Piperacillin Sodium/Tazobactam 2.25 GM in 0.9 % Sodium Chloride 50 ML IV ×4 (04:58→23:15)
[2023-10-14] MEDS: Furosemide 40 MG/4 ML VIAL IVPUSH (05:00)
[2023-10-14] MEDS: Norepinephrine Bitartrate/D5W 8 MG/250 ML PLAST..BAG 7.41 MG IV (05:21)
[2023-10-14 05:22] LABS: MANUAL DIFF FLAG NO
[2023-10-14 05:26] LABS: Basophils Absolute Auto 0.1 X10*3/uL (0.0-0.2); Basophils Percent Auto 0.5 % (0-2); Eosinophils Absolute Auto 0.1 X10*3/uL (0.0-0.4); Eosinophils Percent Auto 0.5 % (0-4); Hemoglobin 9.9 g/dl (14.0-18.0); Imm Gran Abs Auto 0.25 X10*3/uL (0.00-0.03); Imm Gran Pct Auto 1.4 % (0.0-0.4); Lymphocytes Absolute Auto 1.1 X10*3/uL (1.2-4.9); Lymphocytes Percent Auto 6.5 % (20-40); Mean Corpuscular HGB Conc 34.1 g/dl (31.0-36.0); Mean Corpuscular Hemoglobin 22.1 pg (27.0-33.0); Mean Corpuscular Volume 64.9 fL (80.0-98.0); Mean Platelet Volume 11.2 fL (9.4-12.4); Monocytes Absolute Auto 1.3 X10*3/uL (0.1-1.2); Monocytes Percent Auto 7.5 % (2-11); NRBC Pct Auto 0.2 /100WBC (0.0-0.2); Neutrophils Absolute Auto 14.5 x10*3/uL (2.0-8.3); Neutrophils Percent Auto 83.6 % (45-73); Platelet Count 383 X10*3/uL (160-400); Red Blood Count 4.47 X10*6/uL (4.60-5.80); Red Cell Distribution Width 14.6 % (11.0-16.0); White Blood Count 17.4 X10*3/uL (4.8-10.8)
[2023-10-14 05:48] LABS: Albumin Level 4.1 g/dL (3.5-5.0); Anion Gap 25 (12-20); Calcium 10.6 mg/dL (8.4-10.2); Carbon Dioxide 16 mmol/L (22-29); Chloride 108 mmol/L (96-108); Creatinine Clr Calc Pharmacy 19.8; Estimated Glomerular Filt Rate 19; Glucose Random 149 mg/dL (60-115); Magnesium 2.6 mg/dL (1.6-2.6); Phosphorus 8.8 mg/dL (2.7-4.5); Sodium 144 mmol/L (135-145)
[2023-10-14 05:52] LABS: Blood Urea Nitrogen 130 mg/dL (9-16)
[2023-10-14 06:18] LABS: VBG Base Excess -7.4 mmol/L; VBG HCO3 19 mmol/L (22-26); VBG pCO2 44 mmHg; VBG pH 7.24 (7.32-7.43); VBG pO2 60 mmHg
[2023-10-14 06:19] LABS: Venous Blood Gas Refer to POC result
[2023-10-14] MEDS: Sodium Bicarbonate 8.4% 50 MEQ/50 ML VIAL IVPUSH (06:23)
[2023-10-14] MEDS: Chlorhexidine Gluc Oral Rinse 15 ML MOUTHWASH BUCCAL ×3 (07:47→21:39)
[2023-10-14] MEDS: 0.9 % Sodium Chloride Flush 10 ML SYRINGE IVFLUSH ×2 (07:47→16:45)
[2023-10-14] MEDS: vancomycin HCL 500 MG in 0.9 % Sodium Chloride 100 ML 110 MG IV (08:00)
--- NOTE | 2023-10-14 09:00 | PM.PNNEP ---
Subjective Subjective Date of Service: 10/18/23 Interval history: No events overnight. \ Physical Exam Vital Signs: Vital Signs: Last Vital Signs Temp 101.5 F H 10/14/23 08:00 Pulse 137 H 10/14/23 08:00 Resp 48 H 10/14/23 08:00 BP 123/75 10/14/23 08:00 Pulse Ox 92 10/14/23 08:00 O2 Del Method High Flow Nasal C annula 10/14/23 08:00 O2 Flow Rate 50 10/14/23 08:00 FiO2 50 10/14/23 08:00 BMI result Body Mass Index 20.2 Const: General: ill appearing Neck: Neck: Yes supple Resp: Auscultation: clear to auscultation bilaterally Cardio: Palpation: no palpable S3 Heart sounds: no rubs GI: Palpation (GI): Soft to palpation Auscultation: normal bowel sounds Neuro: Motor exam (neuro): no asterixis Objective Data Labs 10/18/23 05:06 10/18/23 05:06 Labs: Laboratory Results - last 24 hr 10/13/23 10/13/23 10/13/23 11:49 18:10 23:40 WBC RBC Hgb Hct MCV MCH MCHC RDW Plt Count MPV Immature Gran % (Auto) Neut % (Auto) Lymph % (Auto) [place] % (Auto) Eos % (Auto) Baso % (Auto) Lymph # (Auto) [place] # (Auto) Eos # (Auto) Baso # (Auto) Abs Immat Gran (auto) Absolute Neuts (auto) Absolute Nucleated RBC Nucleated RBC % (auto) VBG pH VBG pCO2 VBG pO2 VBG HCO3 VBG O2 Saturation VBG Base Excess Sodium Potassium Chloride Carbon Dioxide Anion Gap BUN Creatinine Estim Creat Clear Calc Estimated GFR POC Glucose 228 H 140 H 157 H Random Glucose Calcium Phosphorus Magnesium Albumin 10/14/23 10/14/23 10/14/23 03:01 04:41 06:11 WBC 17.4 H RBC 4.47 L Hgb 9.9 L Hct 29.0 L MCV 64.9 L MCH 22.1 L MCHC 34.1 RDW 14.6 Plt Count 383 D MPV 11.2 Immature Gran % (Auto) 1.4 H Neut % (Auto) 83.6 H Lymph % (Auto) 6.5 L [place] % (Auto) 7.5 Eos % (Auto) 0.5 Baso % (Auto) 0.5 Lymph # (Auto) 1.1 L [place] # (Auto) 1.3 H Eos # (Auto) 0.1 Baso # (Auto) 0.1 Abs Immat Gran (auto) 0.25 H Absolute Neuts (auto) 14.5 H Absolute Nucleated RBC 0.030 H Nucleated RBC % (auto) 0.2 VBG pH 7.32 7.24 L VBG pCO2 37 44 VBG pO2 47 60 VBG HCO3 19 L 19 L VBG O2 Saturation 64.0 77.0 VBG Base Excess -5.9 -7.4 Sodium 144 Potassium 5.0 D Chloride 108 Carbon Dioxide 16 L Anion Gap 25 H BUN 130 H Creatinine 3.35 H Estim Creat Clear Calc 19.8 Estimated GFR 19 POC Glucose Random Glucose 149 H Calcium 10.6 H Phosphorus 8.8 H Magnesium 2.6 Albumin 4.1 Microbiology Microbiology Results: Microbiology 10/02/23 06:40 Sputum - Suctioned Direct Acid Fast Bacilli Smear - Final 10/02/23 03:11 Blood - Central Line Blood Culture - Final No growth after 5 days. 10/02/23 03:11 Blood - Central Line Blood Culture - Final Coag negative Staphylococcus 10/02/23 06:40 Sputum - Suctioned Gram Stain - Final 10/02/23 06:40 Sputum - Suctioned Sputum Culture - Final 10/02/23 06:40 Urine Catheterized - Miguel Catheter Urine Culture - Final No growth. Procedures Date of Service Date of Service: 10/18/23 Assessment & Plan Assessment and plan (1) AMBER (acute kidney injury): Status: Acute (2) Hyperkalemia: Status: Acute (3) CKD (chronic kidney disease): Status: Acute Plan 62-year-old man with HIV has acute kidney injury superimposed on chronic kidney disease with hyperkalemia and mild metabolic acidosis. DDX acute kidney injury would include acute tubular necrosis from various episodes of hypotension as well as underlying infectious process. However interstitial nephritis should be ruled out. 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 Recommendations Check urine for protein creatinine ratio and eosinophils. - ordered Continue to avoid nephrotoxic agents. Can use Lasix judiciously to optimize fluid status. Watch urine output closely. No indication for dialysis at this time. Based on the urine studies and serologies he might require a kidney biopsy when he is more stable. We will follow with the team. Time Spent With Patient Time: Total time managing care of this patient today ____ minutes. Progress Note: Quality Stroke Does the patient have a stroke diagnosis?: No
[2023-10-14] MEDS: Sodium Bicarbonate 8.4% 150 MEQ in Dextrose 5 % 850 ML 100 MEQ IV ×2 (09:12→19:10)
--- NOTE | 2023-10-14 09:25 | MHC.CM.PN ---
Pt has been extubated and is on high flow but failing a/e/b respirations in the 50's, HR in the 130's and overall decompensation. He will need to be reintubated today per MD. MD to call pt's son and discuss about and likely need for peg/trach and LTAC placement. MD asks CM to pend LTAC discussions w/son until more information is known. CM to await MD clearance for initiation of care plan discussions.
[2023-10-14 10:20] LABS: Creatinine Urine 54.55 mg/dL; Total Protein Urine Random 125 mg/dL (<12)
[2023-10-14 10:31] LABS: Appearance Urine Turbid; Color Urine Yellow; Glucose Urine UA Negative (Negative); Leukocyte Esterase Urine Moderate (2+) (Negative); Nitrite Urine Negative (Negative); PH 5.5 (5.0-9.0); UMIC TRIGGER UA YES; Urine Blood Moderate (2+) (Negative); Urine Ketones Negative (Negative); Urine Protein 100 (2+) mg/dL (Neg-Trace)
[2023-10-14] MEDS: propofoL 200 MG/20 ML VIAL 60 MG IVPUSH (10:32)
[2023-10-14 10:49] LABS: Bacteria Urine Trace (None Seen); Granular Casts Urine Present; WBC Urine >50 /HPF (0-5)
--- NOTE | 2023-10-14 10:49 | W.PM.CCHP ---
Procedures Date of Service Date of Service: 10/14/23 Intubation Intubation Comments: Patient with progressive tachypnea and hypoxia overnight, then with development of acute hypoxia secondary to pulmonary aspiration not corrected with nasotracheal suctioning requiring emergent intubation with 7.5 cuffed ET tube under glide scope guidance with no immediate complications. X-ray for tube position is pending.
[2023-10-14] MEDS: propofoL 1,000 MG/100 ML VIAL 18.66 MG IVCONT ×4 (10:57→23:12)
[2023-10-14 11:45] LABS: EOS Counted 0 CELLS; EOS QC POS YES; EOS Stain Quality OK YES; WBC, Counted 100 CELLS
--- NOTE | 2023-10-14 12:07 | P.PNCC_ITS ---
Subjective Subjective Date of Service: 10/14/23 Interval History: 62-year-old gentleman with underlying HIV on HAART, hep C, COPD admitted on 10/02/2023 with acute hypoxic respiratory failure secondary to influenza with superimposed bacterial superinfection requiring intubation, pressor, and ventilatory support. Cultures are negative to date. Shock component has resolved. Now with abdominal distention secondary to ileus versus SBO, evaluated by general surgeon and deemed to underlying ileus. Extubated 10/13/2023. Overnight with worsening respiratory status requiring nasotracheal suctioning. This a.m. with another aspiration event resulting in refractory hypoxia requiring emergent intubation and ventilatory support. Critical Care Time (minutes): 90 Physical Exam 2 Vital Signs: Vital Signs: Last Vital Signs Temp 101.3 F H 10/14/23 11:00 Pulse 131 H 10/14/23 11:03 Resp 24 H 10/14/23 11:00 BP 84/52 L 10/14/23 11:03 Pulse Ox 97 10/14/23 11:00 O2 Del Method Mechanical Ventil ation 10/14/23 11:00 O2 Flow Rate 50 10/14/23 10:00 FiO2 50 10/14/23 11:50 BMI result Body Mass Index 20.2 Const: General: no acute distress and other (Sedated on the vent) Eyes: Sclerae: sclerae normal Neck: Neck: Yes no lymphadenopathy, Yes trachea midline and Yes supple Resp: Auscultation: crackles bilateral Cardio: Rate: tachycardic Rhythm: regular rhythm Heart sounds: no gallops, no murmurs and no rubs GI: Palpation (GI): Soft to palpation and Other GI palpation findings present ( Nontender) Auscultation: normal bowel sounds Extrem: General: Yes no pedal edema, No clubbing and No cyanosis Objective Data Labs 10/14/23 04:41 10/14/23 04:41 Labs: Laboratory Results - last 24 hr 10/13/23 10/13/23 10/14/23 18:10 23:40 03:01 WBC RBC Hgb Hct MCV MCH MCHC RDW Plt Count MPV Immature Gran % (Auto) Neut % (Auto) Lymph % (Auto) [place] % (Auto) Eos % (Auto) Baso % (Auto) Lymph # (Auto) [place] # (Auto) Eos # (Auto) Baso # (Auto) Abs Immat Gran (auto) Absolute Neuts (auto) Absolute Nucleated RBC Nucleated RBC % (auto) VBG pH 7.32 VBG pCO2 37 VBG pO2 47 VBG HCO3 19 L VBG O2 Saturation 64.0 VBG Base Excess -5.9 Sodium Potassium Chloride Carbon Dioxide Anion Gap BUN Creatinine Estim Creat Clear Calc Estimated GFR POC Glucose 140 H 157 H Random Glucose Calcium Phosphorus Magnesium Albumin Urine Color Urine Appearance Urine pH Ur Specific [place] Urine Protein Urine Glucose (UA) Urine Ketones Urine Blood Urine Nitrite Ur Leukocyte Esterase Urine RBC Urine WBC Ur Squamous Epith Cells Urine Bacteria Hyaline Casts Granular Casts Urine Yeast Urine Eosinophils % U Random Total Protein Urine Creatinine 10/14/23 10/14/23 10/14/23 04:41 06:11 09:53 WBC 17.4 H RBC 4.47 L Hgb 9.9 L Hct 29.0 L MCV 64.9 L MCH 22.1 L MCHC 34.1 RDW 14.6 Plt Count 383 D MPV 11.2 Immature Gran % (Auto) 1.4 H Neut % (Auto) 83.6 H Lymph % (Auto) 6.5 L [place] % (Auto) 7.5 Eos % (Auto) 0.5 Baso % (Auto) 0.5 Lymph # (Auto) 1.1 L [place] # (Auto) 1.3 H Eos # (Auto) 0.1 Baso # (Auto) 0.1 Abs Immat Gran (auto) 0.25 H Absolute Neuts (auto) 14.5 H Absolute Nucleated RBC 0.030 H Nucleated RBC % (auto) 0.2 VBG pH 7.24 L VBG pCO2 44 VBG pO2 60 VBG HCO3 19 L VBG O2 Saturation 77.0 VBG Base Excess -7.4 Sodium 144 Potassium 5.0 D Chloride 108 Carbon Dioxide 16 L Anion Gap 25 H BUN 130 H Creatinine 3.35 H Estim Creat Clear Calc 19.8 Estimated GFR 19 POC Glucose Random Glucose 149 H Calcium 10.6 H Phosphorus 8.8 H Magnesium 2.6 Albumin 4.1 Urine Color Yellow Urine Appearance Turbid Urine pH 5.5 Ur Specific [place] 1.020 Urine Protein 100 (2+) H Urine Glucose (UA) Negative Urine Ketones Negative Urine Blood Moderate (2+) H Urine Nitrite Negative Ur Leukocyte Esterase Moderate (2+) H Urine RBC 11-20 H Urine WBC >50 H Ur Squamous Epith Cells 6-10 Urine Bacteria Trace Hyaline Casts 3-5 Granular Casts Present Urine Yeast Present Urine Eosinophils % 0.0 U Random Total Protein 125 H Urine Creatinine 54.55 Microbiology Microbiology Results: Microbiology 10/02/23 06:40 Sputum - Suctioned Direct Acid Fast Bacilli Smear - Final 10/02/23 03:11 Blood - Central Line Blood Culture - Final No growth after 5 days. 10/02/23 03:11 Blood - Central Line Blood Culture - Final Coag negative Staphylococcus 10/02/23 06:40 Sputum - Suctioned Gram Stain - Final 10/02/23 06:40 Sputum - Suctioned Sputum Culture - Final 10/02/23 06:40 Urine Catheterized - Miguel Catheter Urine Culture - Final No growth. Progress Note: A&P Assessment and plan (1) CKD (chronic kidney disease): Status: Acute (2) Hyperkalemia: Status: Acute (3) Ileus: Status: Acute (4) AMBER (acute kidney injury): Status: Acute (5) Influenza: Status: Acute (6) HIV (human immunodeficiency virus infection): Status: Acute (7) Acute hypoxic respiratory failure: Status: Acute (8) TERRY (obstructive sleep apnea): Status: Acute (9) Hepatitis C: Status: Acute (10) COPD (chronic obstructive pulmonary disease): Status: Acute Plan Assessment: 62-year-old gentleman with underlying HIV on HAART, hep C admitted with acute hypoxic respiratory failure secondary to bacterial superinfection of underlying influenza now requiring ventilatory support Plan: Neuro: No acute issues. Cardiac: Septic shock, improving, continue to titrate off pressor support as tolerated. Pulmonary: Acute hypoxic respiratory failure secondary to bacterial superinfection of underlying influenza, improved and extubated on 10/13/2023. However with development of recurrent aspirations requiring re-intubation on 10/14/2023. Renal: Acute kidney injury secondary to septic shock. Non oliguric. Continue to monitor renal indices and urine output. Endo: No acute issues. GI: Ileus, resolved. General surgery service care appreciated. ID: Cultures negative to date. Continue empiric antibiotics. Heme/Onc: No acute issues. Psych: No acute issues. Miscellaneous: No acute issues. Prophylaxis: Heparin, ppi Diet: Tube feeds Critical care time spent: 90 minutes Quality Stroke Does the patient have a stroke diagnosis?: No VTE Prior VTE?: No VTE Risk Level:: Medical - moderate - high VTE Device Contraindication: N/A - Device Ordered VTE Drug Contraindication: N/A - Med Ordered
[2023-10-14 12:09] LABS: Glucose, Whole Blood 259 mg/dL (60-115)
[2023-10-14] MEDS: Insulin Lispro 100 UNIT/ML 3 ML VIAL SUBCUT ×2 (12:09→17:46)
[2023-10-14] MEDS: Norepinephrine Bitartrate/D5W 8 MG/250 ML PLAST..BAG 45.92 MG IV (12:47)
--- NOTE | 2023-10-14 12:51 | PC.NURSE ---
Pt reintubated at approx 1035. MD and RT at bedside. Medications administered per OCT. Pt now has 7.5 ETT sitting at 25 @ the lip. Vent setting documented in vent assessment.
[2023-10-14] MEDS: Acetaminophen Oral Liquid 650 MG/20.3 ML SOLUTION 975 MG PO (14:40)
[2023-10-14 17:45] LABS: Glucose, Whole Blood 243 mg/dL (60-115)
[2023-10-14] MEDS: Norepinephrine Bitartrate/D5W 8 MG/250 ML PLAST..BAG 42.96 MG IV (18:02)
[2023-10-14] MEDS: Norepinephrine Bitartrate/D5W 8 MG/250 ML PLAST..BAG 38.51 MG IV (23:17)
[2023-10-15] VITALS (39 sets, daily range): BP systolic 103–130; BP diastolic 59–83; PULSE 87–120; RESP 14–29; TEMP 34.9–38.2; O2SAT 88–117; BMI 21.2
[2023-10-15 00:07] LABS: Glucose, Whole Blood 233 mg/dL (60-115)
[2023-10-15] MEDS: 0.9 % Sodium Chloride Flush 10 ML SYRINGE IVFLUSH ×3 (00:39→16:17)
[2023-10-15] MEDS: Insulin Lispro 100 UNIT/ML 3 ML VIAL SUBCUT ×4 (00:44→18:45)
--- NOTE | 2023-10-15 02:54 | PC.NURSE ---
CARE ASSUMED 7PM..REMAINS INTUBATED...VCV VENT SUPPORT...RR 28-32...PROPOFOL 50 MCG/KG/MIN...(+) GAG/COUGH..WEAKLY MOVES FINGERS AND TOES BUT NOT TO COMMAND.....T-MAX 102.1 AND HR 128....PER SHIFT REPORT PREVIOUSLY UTILIZED TYLENOL AND ICE PACKS....COOLING BLANKET RE-APPLIED AND TEMP GRADUALLY DOWN TO 97.2 AND HR 88-90....TUBE FEEDS RESUMED PER ICU LEAD RADIOLOGIC TECHNOLOGIST...NEPRO 20 CC/HR AND H20 240ML Q6H..GOAL OF 30 CC/HR...KABA DRAINING >100 CC/HR....BICARB DRIP 100 CC/HR..LEVOPHED WEANED FROM 0.29 TO 0.17 MCG/KG/MIN WITH STABLE BP...FIO2 WEANED FROM 45% TO 30% WITH SAO2 90-91%..PER ICU LEAD RADIOLOGIC TECHNOLOGIST SAO2 GOAL 88-90%
[2023-10-15] MEDS: metroNIDAZOLE/NS 500 MG/100 ML PIGGYBACK 100 MG IV ×3 (03:14→20:26)
[2023-10-15] MEDS: Heparin Sodium,Porcine 5,000 UNIT/ML VIAL 5000 UNIT SUBCUT ×2 (03:16→16:17)
[2023-10-15] MEDS: Sodium Bicarbonate 8.4% 150 MEQ in Dextrose 5 % 850 ML 100 MEQ IV (03:57)
[2023-10-15] MEDS: propofoL 1,000 MG/100 ML VIAL 18.66 MG IVCONT ×4 (03:59→19:26)
[2023-10-15] MEDS: Piperacillin Sodium/Tazobactam 2.25 GM in 0.9 % Sodium Chloride 50 ML IV ×4 (04:24→22:47)
[2023-10-15 04:56] LABS: VBG Base Excess 11.1 mmol/L; VBG HCO3 35 mmol/L (22-26); VBG pCO2 46 mmHg; VBG pH 7.49 (7.32-7.43); VBG pO2 40 mmHg
[2023-10-15 04:57] LABS: MANUAL DIFF FLAG NO
[2023-10-15 04:58] LABS: Basophils Percent Auto 0.2 % (0-2); Eosinophils Absolute Auto 0.2 X10*3/uL (0.0-0.4); Eosinophils Percent Auto 0.9 % (0-4); Hematocrit 25.3 % (42.0-52.0); Hemoglobin 8.7 g/dl (14.0-18.0); Imm Gran Abs Auto 0.18 X10*3/uL (0.00-0.03); Lymphocytes Absolute Auto 1.2 X10*3/uL (1.2-4.9); Lymphocytes Percent Auto 6.6 % (20-40); Mean Corpuscular HGB Conc 34.4 g/dl (31.0-36.0); Mean Corpuscular Hemoglobin 22.2 pg (27.0-33.0); Mean Corpuscular Volume 64.5 fL (80.0-98.0); Monocytes Absolute Auto 1.2 X10*3/uL (0.1-1.2); Monocytes Percent Auto 6.3 % (2-11); NRBC Pct Auto 0.1 /100WBC (0.0-0.2); Neutrophils Absolute Auto 15.6 x10*3/uL (2.0-8.3); Platelet Count 322 X10*3/uL (160-400); Red Blood Count 3.92 X10*6/uL (4.60-5.80); Red Cell Distribution Width 14.7 % (11.0-16.0); Venous Blood Gas Refer to POC result; White Blood Count 18.4 X10*3/uL (4.8-10.8)
[2023-10-15 05:29] LABS: Albumin Level 3.3 g/dL (3.5-5.0); Anion Gap 18 (12-20); Blood Urea Nitrogen 111 mg/dL (9-16); Calcium 9.3 mg/dL (8.4-10.2); Carbon Dioxide 30 mmol/L (22-29); Chloride 102 mmol/L (96-108); Creatinine Clr Calc Pharmacy 24.1; Estimated Glomerular Filt Rate 22; Glucose Random 363 mg/dL (60-115); Magnesium 2.2 mg/dL (1.6-2.6); Phosphorus 3.9 mg/dL (2.7-4.5); Potassium 3.1 mmol/L (3.3-5.1); Sodium 147 mmol/L (135-145)
[2023-10-15 05:37] LABS: Glucose, Whole Blood 292 mg/dL (60-115)
[2023-10-15] MEDS: Pantoprazole Sodium 40 MG/10 ML VIAL IVPUSH (05:49)
[2023-10-15] MEDS: Albumin Human 25 % 100 ML IV ×2 (06:13→12:38)
[2023-10-15] MEDS: Potassium Chloride/H20 40 MEQ/100 ML PIGGYBACK 50 MEQ IV (06:15)
[2023-10-15] MEDS: Norepinephrine Bitartrate/D5W 8 MG/250 ML PLAST..BAG 25.18 MG IV (06:21)
[2023-10-15 07:36] LABS: Vancomycin Random 17.4 mcg/mL (15-20)
--- NOTE | 2023-10-15 07:49 | HE.PHANOTE ---
RE: VANCO DOSING Random came back as 17.4 on 10/15/23 @0706. Renal function seems to be improving, continue with 500 mg q24h (predicted AUC of 493 and trough of 16.9), another random is scheduled for 10/16/23 @0700.
[2023-10-15] MEDS: Chlorhexidine Gluc Oral Rinse 15 ML MOUTHWASH BUCCAL ×3 (07:59→20:26)
[2023-10-15] MEDS: vancomycin HCL 500 MG in 0.9 % Sodium Chloride 100 ML 110 MG IV (08:00)
[2023-10-15] MEDS: Potassium Chloride/H20 40 MEQ/100 ML PIGGYBACK 100 MEQ IV ×2 (09:15→10:22)
--- NOTE | 2023-10-15 09:37 | MHC.CLN ---
Addendum entered by Mirela Chauhan RD 10/15/23 09:39: 1788KCALS WITH SEDATION; 27KCALS/KG Original Note: F/U PT EXTUBATED 10/12 THEN RE-INTUBATED 10/13 DISCUSSED AT ROUNDS WITH PT RE-STARTED ON NEPRO AT MAX GOAL RATE 30ML/HR WITH 240ML FWF Q 6 HRS PROVIDES 1296KCALS, 58G PROTEIN (.87G/KG), 1483ML TOTAL WATER FROM FORMULA AND FLUSHES (22ML/KG) TOLERATING WITH LOW RESIDUALS PER NSG CONTINUE TO MONITOR TOLERANCE, RESIDUALS, AND LYTES
[2023-10-15] MEDS: Nystatin Powder 15 GM BOTTLE 1 APPL TOPICAL ×2 (10:14→20:28)
--- NOTE | 2023-10-15 10:22 | P.PNCC_ITS ---
Subjective Subjective Date of Service: 10/15/23 Interval History: 62-year-old gentleman with underlying HIV on HAART, hep C, COPD admitted on 10/02/2023 with acute hypoxic respiratory failure secondary to influenza with superimposed bacterial superinfection requiring intubation, pressor, and ventilatory support. Cultures are negative to date. Shock component has resolved. Now with abdominal distention secondary to ileus versus SBO, evaluated by general surgeon and deemed to underlying ileus. Extubated 10/13/2023. On 10/14/2023 with an aspiration event resulting in refractory hypoxia requiring emergent intubation and ventilatory support. No events overnight. Critical Care Time (minutes): 60 Physical Exam 2 Vital Signs: Vital Signs: Last Vital Signs Temp 100.4 F 10/15/23 09:41 Pulse 117 H 10/15/23 09:41 Resp 14 10/15/23 09:41 BP 106/62 10/15/23 09:41 Pulse Ox 88 L 10/15/23 09:41 O2 Del Method Mechanical Ventil ation 10/15/23 09:41 O2 Flow Rate 50 10/14/23 10:00 FiO2 35 10/15/23 09:41 BMI result Body Mass Index 21.2 Const: General: no acute distress and other (sedated on the vent) Eyes: Sclerae: sclerae normal EOM: EOMs intact bilaterally Neck: Neck: Yes no lymphadenopathy, Yes trachea midline and Yes supple Resp: Auscultation: clear to auscultation bilaterally Cardio: Rate: tachycardic Rhythm: regular rhythm Heart sounds: no gallops, no murmurs and no rubs GI: Palpation (GI): Soft to palpation and Other GI palpation findings present ( Nontender) Auscultation: normal bowel sounds Extrem: General: Yes no pedal edema, No clubbing and No cyanosis Objective Data Labs 10/15/23 04:48 10/15/23 04:48 Labs: Laboratory Results - last 24 hr 10/14/23 10/14/23 10/14/23 09:53 12:04 17:41 WBC RBC Hgb Hct MCV MCH MCHC RDW Plt Count MPV Immature Gran % (Auto) Neut % (Auto) Lymph % (Auto) [place] % (Auto) Eos % (Auto) Baso % (Auto) Lymph # (Auto) [place] # (Auto) Eos # (Auto) Baso # (Auto) Abs Immat Gran (auto) Absolute Neuts (auto) Absolute Nucleated RBC Nucleated RBC % (auto) VBG pH VBG pCO2 VBG pO2 VBG HCO3 VBG O2 Saturation VBG Base Excess Sodium Potassium Chloride Carbon Dioxide Anion Gap BUN Creatinine Estim Creat Clear Calc Estimated GFR POC Glucose 259 H 243 H Random Glucose Calcium Phosphorus Magnesium Albumin Urine Color Yellow Urine Appearance Turbid Urine pH 5.5 Ur Specific [place] 1.020 Urine Protein 100 (2+) H Urine Glucose (UA) Negative Urine Ketones Negative Urine Blood Moderate (2+) H Urine Nitrite Negative Ur Leukocyte Esterase Moderate (2+) H Urine RBC 11-20 H Urine WBC >50 H Ur Squamous Epith Cells 6-10 Urine Bacteria Trace Hyaline Casts 3-5 Granular Casts Present Urine Yeast Present Urine Eosinophils % 0.0 Random Vancomycin 10/14/23 10/15/23 10/15/23 23:59 04:48 04:49 WBC 18.4 H RBC 3.92 L Hgb 8.7 L Hct 25.3 L MCV 64.5 L MCH 22.2 L MCHC 34.4 RDW 14.7 Plt Count 322 MPV 10.0 Immature Gran % (Auto) 1.0 H Neut % (Auto) 85.0 H Lymph % (Auto) 6.6 L [place] % (Auto) 6.3 Eos % (Auto) 0.9 Baso % (Auto) 0.2 Lymph # (Auto) 1.2 [place] # (Auto) 1.2 Eos # (Auto) 0.2 Baso # (Auto) 0.0 Abs Immat Gran (auto) 0.18 H Absolute Neuts (auto) 15.6 H Absolute Nucleated RBC 0.020 H Nucleated RBC % (auto) 0.1 VBG pH 7.49 H VBG pCO2 46 VBG pO2 40 VBG HCO3 35 H VBG O2 Saturation 54.0 VBG Base Excess 11.1 Sodium 147 H Potassium 3.1 L D Chloride 102 Carbon Dioxide 30 H Anion Gap 18 BUN 111 H Creatinine 2.88 H Estim Creat Clear Calc 24.1 Estimated GFR 22 POC Glucose 233 H Random Glucose 363 H* Calcium 9.3 D Phosphorus 3.9 Magnesium 2.2 Albumin 3.3 L Urine Color Urine Appearance Urine pH Ur Specific [place] Urine Protein Urine Glucose (UA) Urine Ketones Urine Blood Urine Nitrite Ur Leukocyte Esterase Urine RBC Urine WBC Ur Squamous Epith Cells Urine Bacteria Hyaline Casts Granular Casts Urine Yeast Urine Eosinophils % Random Vancomycin 10/15/23 10/15/23 05:33 07:06 WBC RBC Hgb Hct MCV MCH MCHC RDW Plt Count MPV Immature Gran % (Auto) Neut % (Auto) Lymph % (Auto) [place] % (Auto) Eos % (Auto) Baso % (Auto) Lymph # (Auto) [place] # (Auto) Eos # (Auto) Baso # (Auto) Abs Immat Gran (auto) Absolute Neuts (auto) Absolute Nucleated RBC Nucleated RBC % (auto) VBG pH VBG pCO2 VBG pO2 VBG HCO3 VBG O2 Saturation VBG Base Excess Sodium Potassium Chloride Carbon Dioxide Anion Gap BUN Creatinine Estim Creat Clear Calc Estimated GFR POC Glucose 292 H Random Glucose Calcium Phosphorus Magnesium Albumin Urine Color Urine Appearance Urine pH Ur Specific [place] Urine Protein Urine Glucose (UA) Urine Ketones Urine Blood Urine Nitrite Ur Leukocyte Esterase Urine RBC Urine WBC Ur Squamous Epith Cells Urine Bacteria Hyaline Casts Granular Casts Urine Yeast Urine Eosinophils % Random Vancomycin 17.4 Microbiology Microbiology Results: Microbiology 10/02/23 06:40 Sputum - Suctioned Direct Acid Fast Bacilli Smear - Final 10/02/23 03:11 Blood - Central Line Blood Culture - Final No growth after 5 days. 10/02/23 03:11 Blood - Central Line Blood Culture - Final Coag negative Staphylococcus 10/02/23 06:40 Sputum - Suctioned Gram Stain - Final 10/02/23 06:40 Sputum - Suctioned Sputum Culture - Final 10/02/23 06:40 Urine Catheterized - Miguel Catheter Urine Culture - Final No growth. Progress Note: A&P Assessment and plan (1) CKD (chronic kidney disease): Status: Acute (2) Hyperkalemia: Status: Acute (3) AMBER (acute kidney injury): Status: Acute (4) HIV (human immunodeficiency virus infection): Status: Acute (5) Acute hypoxic respiratory failure: Status: Acute (6) Hepatitis C: Status: Acute (7) COPD (chronic obstructive pulmonary disease): Status: Acute Plan Assessment: 62-year-old gentleman with underlying HIV on HAART, hep C admitted with acute hypoxic respiratory failure secondary to bacterial superinfection of underlying influenza now requiring ventilatory support Plan: Neuro: No acute issues. Cardiac: Septic shock, improving, continue to titrate off pressor support as tolerated. Pulmonary: Acute hypoxic respiratory failure secondary to bacterial superinfection of underlying influenza, improved and extubated on 10/13/2023. However with development of recurrent aspirations requiring re-intubation on 10/14/2023. May require tracheostomy. Renal: Acute kidney injury secondary to septic shock, improving. Non oliguric. Continue to monitor renal indices and urine output. Endo: No acute issues. GI: Ileus, resolved. General surgery service care appreciated. ID: Cultures negative to date. Continue empiric antibiotics. Heme/Onc: No acute issues. Psych: No acute issues. Miscellaneous: No acute issues. Prophylaxis: Heparin, ppi Diet: Tube feeds Critical care time spent: 60 minutes Quality Stroke Does the patient have a stroke diagnosis?: No VTE Prior VTE?: No VTE Risk Level:: Medical - moderate - high VTE Device Contraindication: N/A - Device Ordered VTE Drug Contraindication: N/A - Med Ordered
[2023-10-15 11:32] LABS: Glucose, Whole Blood 153 mg/dL (60-115)
--- NOTE | 2023-10-15 12:01 | MHC.CM.PN ---
Pt failed first extubation w/increased work of breathing and abnormal VS d/t fatigue. Pt reintubated on 10/13. MD spoke w/pt's son and current decision maker to discuss goals of care. MD to re-evaluate pt on 10/17 and will likely pursue peg and trach. MD feels pt could make a recovery however, this will be very slow. Pt is not tracking or following commands: he is febrile on a cooling blanket. No formal HCP on file or in the community. CM to follow for continuation of d/c planning needs.
[2023-10-15] MEDS: Norepinephrine Bitartrate/D5W 8 MG/250 ML PLAST..BAG 19.26 MG IV (16:28)
[2023-10-15 17:45] LABS: Glucose, Whole Blood 210 mg/dL (60-115)
[2023-10-16] VITALS (35 sets, daily range): BP systolic 95–127; BP diastolic 53–81; PULSE 103–124; RESP 14–40; TEMP 34.3–38.4; O2SAT 88–95; BMI 21.1
[2023-10-16] LABS: Glucose, Whole Blood 194 mg/dL (60-115)
[2023-10-16] MEDS: Insulin Lispro 100 UNIT/ML 3 ML VIAL SUBCUT ×4 (00:01→18:16)
[2023-10-16] MEDS: 0.9 % Sodium Chloride Flush 10 ML SYRINGE IVFLUSH ×2 (00:02→08:04)
[2023-10-16] MEDS: propofoL 1,000 MG/100 ML VIAL 18.66 MG IVCONT ×5 (00:08→19:43)
[2023-10-16] MEDS: Norepinephrine Bitartrate/D5W 8 MG/250 ML PLAST..BAG 13.33 MG IV ×2 (04:03→21:42)
[2023-10-16] MEDS: metroNIDAZOLE/NS 500 MG/100 ML PIGGYBACK 100 MG IV ×3 (04:05→19:50)
[2023-10-16] MEDS: Heparin Sodium,Porcine 5,000 UNIT/ML VIAL 5000 UNIT SUBCUT ×2 (04:07→15:10)
[2023-10-16] MEDS: Piperacillin Sodium/Tazobactam 2.25 GM in 0.9 % Sodium Chloride 50 ML IV ×3 (05:37→16:20)
[2023-10-16] MEDS: Pantoprazole Sodium 40 MG/10 ML VIAL IVPUSH (05:38)
[2023-10-16 05:55] LABS: VBG Base Excess 6.1 mmol/L; VBG HCO3 29 mmol/L (22-26); VBG pCO2 38 mmHg; VBG pH 7.49 (7.32-7.43); VBG pO2 39 mmHg
[2023-10-16 06:12] LABS: Glucose, Whole Blood 162 mg/dL (60-115)
[2023-10-16 06:16] LABS: MANUAL DIFF FLAG NO
[2023-10-16 06:19] LABS: Basophils Percent Auto 0.3 % (0-2); Eosinophils Absolute Auto 0.2 X10*3/uL (0.0-0.4); Eosinophils Percent Auto 1.5 % (0-4); Hematocrit 24.7 % (42.0-52.0); Hemoglobin 8.4 g/dl (14.0-18.0); Imm Gran Abs Auto 0.13 X10*3/uL (0.00-0.03); Imm Gran Pct Auto 1.1 % (0.0-0.4); Lymphocytes Absolute Auto 0.9 X10*3/uL (1.2-4.9); Lymphocytes Percent Auto 7.5 % (20-40); Mean Corpuscular Hemoglobin 22.2 pg (27.0-33.0); Mean Corpuscular Volume 65.2 fL (80.0-98.0); Mean Platelet Volume 11.4 fL (9.4-12.4); Monocytes Percent Auto 8.1 % (2-11); NRBC Pct Auto 0.3 /100WBC (0.0-0.2); Neutrophils Absolute Auto 9.7 x10*3/uL (2.0-8.3); Neutrophils Percent Auto 81.5 % (45-73); Platelet Count 320 X10*3/uL (160-400); Red Blood Count 3.79 X10*6/uL (4.60-5.80); White Blood Count 11.9 X10*3/uL (4.8-10.8)
[2023-10-16 06:38] LABS: Albumin Level 3.6 g/dL (3.5-5.0); Anion Gap 15 (12-20); Blood Urea Nitrogen 91 mg/dL (9-16); Calcium 9.9 mg/dL (8.4-10.2); Carbon Dioxide 27 mmol/L (22-29); Chloride 112 mmol/L (96-108); Estimated Glomerular Filt Rate 38; Glucose Random 227 mg/dL (60-115); Magnesium 2.1 mg/dL (1.6-2.6); Phosphorus 3.1 mg/dL (2.7-4.5); Potassium 4.1 mmol/L (3.3-5.1); Sodium 150 mmol/L (135-145)
[2023-10-16] MEDS: fentaNYL citrate/PF 100 MCG/2 ML VIAL IVPUSH (06:39)
[2023-10-16 07:46] LABS: Vancomycin Random 15.4 mcg/mL (15-20)
--- NOTE | 2023-10-16 08:00 | HE.PHANOTE ---
VANCO DOSE ADJUSTMENT BASED ON CHANGE OF SCR OF 2.88 TO 1.82. DOSE INCREASED TO 750 Q 24H. NEXT LEVEL 10/16 @ 0700
[2023-10-16] MEDS: Chlorhexidine Gluc Oral Rinse 15 ML MOUTHWASH BUCCAL ×3 (08:03→20:09)
[2023-10-16] MEDS: Nystatin Powder 15 GM BOTTLE 1 APPL TOPICAL ×2 (08:03→20:09)
[2023-10-16] MEDS: vancomycin HCL 750 MG in 0.9 % Sodium Chloride 250 ML 265 MG IV (08:42)
--- NOTE | 2023-10-16 09:39 | P.PNCC_ITS ---
Subjective Subjective Date of Service: 10/16/23 Interval History: 62-year-old gentleman with underlying HIV on HAART, hep C, COPD admitted on 10/02/2023 with acute hypoxic respiratory failure secondary to influenza with superimposed bacterial superinfection requiring intubation, pressor, and ventilatory support. Cultures are negative to date. Shock component has resolved. Now with abdominal distention secondary to ileus versus SBO, evaluated by general surgeon and deemed to underlying ileus. Extubated 10/13/2023. On 10/14/2023 with an aspiration event resulting in refractory hypoxia requiring emergent intubation and ventilatory support. No events overnight. Critical Care Time (minutes): 60 Physical Exam 2 Vital Signs: Vital Signs: Last Vital Signs Temp 99.0 F 10/16/23 08:59 Pulse 106 H 10/16/23 08:59 Resp 18 10/16/23 08:59 BP 114/69 10/16/23 08:59 Pulse Ox 92 10/16/23 08:59 O2 Del Method Mechanical Ventil ation 10/16/23 08:59 O2 Flow Rate 50 10/14/23 10:00 FiO2 35 10/16/23 08:59 BMI result Body Mass Index 21.1 Const: General: no acute distress and other (sedated on the vent) Eyes: Sclerae: sclerae normal EOM: EOMs intact bilaterally Neck: Neck: Yes no lymphadenopathy, Yes trachea midline and Yes supple Resp: Auscultation: clear to auscultation bilaterally Cardio: Rate: tachycardic Rhythm: regular rhythm Heart sounds: no gallops, no murmurs and no rubs GI: Palpation (GI): Soft to palpation and Other GI palpation findings present ( Nontender) Auscultation: normal bowel sounds Extrem: General: Yes no pedal edema, No clubbing and No cyanosis Objective Data Labs 10/16/23 05:48 10/16/23 05:48 Labs: Laboratory Results - last 24 hr 10/15/23 10/15/23 10/15/23 11:28 17:41 23:55 WBC RBC Hgb Hct MCV MCH MCHC RDW Plt Count MPV Immature Gran % (Auto) Neut % (Auto) Lymph % (Auto) [place] % (Auto) Eos % (Auto) Baso % (Auto) Lymph # (Auto) [place] # (Auto) Eos # (Auto) Baso # (Auto) Abs Immat Gran (auto) Absolute Neuts (auto) Absolute Nucleated RBC Nucleated RBC % (auto) VBG pH VBG pCO2 VBG pO2 VBG HCO3 VBG O2 Saturation VBG Base Excess Sodium Potassium Chloride Carbon Dioxide Anion Gap BUN Creatinine Estim Creat Clear Calc Estimated GFR POC Glucose 153 H 210 H 194 H Random Glucose Calcium Phosphorus Magnesium Albumin Random Vancomycin 10/16/23 10/16/23 10/16/23 05:47 05:48 05:58 WBC 11.9 H RBC 3.79 L Hgb 8.4 L Hct 24.7 L MCV 65.2 L MCH 22.2 L MCHC 34.0 RDW 15.0 Plt Count 320 MPV 11.4 Immature Gran % (Auto) 1.1 H Neut % (Auto) 81.5 H Lymph % (Auto) 7.5 L [place] % (Auto) 8.1 Eos % (Auto) 1.5 Baso % (Auto) 0.3 Lymph # (Auto) 0.9 L [place] # (Auto) 1.0 Eos # (Auto) 0.2 Baso # (Auto) 0.0 Abs Immat Gran (auto) 0.13 H Absolute Neuts (auto) 9.7 H Absolute Nucleated RBC 0.030 H Nucleated RBC % (auto) 0.3 H VBG pH 7.49 H VBG pCO2 38 VBG pO2 39 VBG HCO3 29 H VBG O2 Saturation 54.0 VBG Base Excess 6.1 Sodium 150 H Potassium 4.1 D Chloride 112 H Carbon Dioxide 27 Anion Gap 15 BUN 91 H Creatinine 1.82 H Estim Creat Clear Calc 38.0 Estimated GFR 38 POC Glucose 162 H Random Glucose 227 H Calcium 9.9 D Phosphorus 3.1 Magnesium 2.1 Albumin 3.6 Random Vancomycin 10/16/23 07:11 WBC RBC Hgb Hct MCV MCH MCHC RDW Plt Count MPV Immature Gran % (Auto) Neut % (Auto) Lymph % (Auto) [place] % (Auto) Eos % (Auto) Baso % (Auto) Lymph # (Auto) [place] # (Auto) Eos # (Auto) Baso # (Auto) Abs Immat Gran (auto) Absolute Neuts (auto) Absolute Nucleated RBC Nucleated RBC % (auto) VBG pH VBG pCO2 VBG pO2 VBG HCO3 VBG O2 Saturation VBG Base Excess Sodium Potassium Chloride Carbon Dioxide Anion Gap BUN Creatinine Estim Creat Clear Calc Estimated GFR POC Glucose Random Glucose Calcium Phosphorus Magnesium Albumin Random Vancomycin 15.4 Microbiology Microbiology Results: Microbiology 10/02/23 06:40 Sputum - Suctioned Direct Acid Fast Bacilli Smear - Final 10/02/23 03:11 Blood - Central Line Blood Culture - Final No growth after 5 days. 10/02/23 03:11 Blood - Central Line Blood Culture - Final Coag negative Staphylococcus 10/02/23 06:40 Sputum - Suctioned Gram Stain - Final 10/02/23 06:40 Sputum - Suctioned Sputum Culture - Final 10/02/23 06:40 Urine Catheterized - Miguel Catheter Urine Culture - Final No growth. Progress Note: A&P Assessment and plan (1) AMBER (acute kidney injury): Status: Acute (2) CKD (chronic kidney disease): Status: Acute (3) HIV (human immunodeficiency virus infection): Status: Acute (4) Acute hypoxic respiratory failure: Status: Acute (5) Pneumonia: Status: Acute (6) Hepatitis C: Status: Acute (7) COPD (chronic obstructive pulmonary disease): Status: Acute (8) Respiratory failure: Status: Acute Plan Assessment: 62-year-old gentleman with underlying HIV on HAART, hep C admitted with acute hypoxic respiratory failure secondary to bacterial superinfection of underlying influenza now requiring ventilatory support Plan: Neuro: No acute issues. Cardiac: Septic shock, improving, continue to titrate off pressor support as tolerated. Pulmonary: Acute hypoxic respiratory failure secondary to bacterial superinfection of underlying influenza, improved and extubated on 10/13/2023. However with development of recurrent aspirations requiring re-intubation on 10/14/2023. May require tracheostomy. Renal: Acute kidney injury secondary to septic shock, improving. Non oliguric. Continue to monitor renal indices and urine output. Endo: No acute issues. GI: Ileus, resolved. General surgery service care appreciated. ID: Cultures negative to date. Leukocytosis is improving. Continue empiric antibiotics. Heme/Onc: No acute issues. Psych: No acute issues. Miscellaneous: No acute issues. Prophylaxis: Heparin, ppi Diet: Tube feeds Critical care time spent: 60 minutes Quality Stroke Does the patient have a stroke diagnosis?: No VTE Prior VTE?: No VTE Risk Level:: Medical - moderate - high VTE Device Contraindication: N/A - Device Ordered VTE Drug Contraindication: N/A - Med Ordered
[2023-10-16] MEDS: Dextrose 5 % 1,000 ML 100 ML IVCONT ×2 (09:47→19:42)
[2023-10-16] MEDS: Furosemide 40 MG/4 ML VIAL IVPUSH (09:47)
[2023-10-16 11:59] LABS: Glucose, Whole Blood 224 mg/dL (60-115)
[2023-10-16 18:09] LABS: Glucose, Whole Blood 250 mg/dL (60-115)
[2023-10-17] VITALS (34 sets, daily range): BP systolic 90–137; BP diastolic 51–91; PULSE 82–114; RESP 17–89; TEMP 34.8–38.5; O2SAT 91–100; BMI 21.1
[2023-10-17 00:16] LABS: Glucose, Whole Blood 209 mg/dL (60-115)
[2023-10-17] MEDS: propofoL 1,000 MG/100 ML VIAL 18.66 MG IVCONT ×5 (00:30→21:46)
[2023-10-17] MEDS: Piperacillin Sodium/Tazobactam 2.25 GM in 0.9 % Sodium Chloride 50 ML IV ×5 (00:31→23:11)
[2023-10-17] MEDS: 0.9 % Sodium Chloride Flush 10 ML SYRINGE IVFLUSH ×2 (00:31→23:12)
[2023-10-17] MEDS: Insulin Lispro 100 UNIT/ML 3 ML VIAL SUBCUT ×4 (00:40→17:26)
[2023-10-17 03:52] LABS: Venous Blood Gas Refer to POC result
[2023-10-17 05:23] LABS: VBG Base Excess 5.2 mmol/L; VBG HCO3 28 mmol/L (22-26); VBG pCO2 37 mmHg; VBG pH 7.49 (7.32-7.43); VBG pO2 37 mmHg
[2023-10-17] MEDS: Heparin Sodium,Porcine 5,000 UNIT/ML VIAL 5000 UNIT SUBCUT ×2 (05:30→15:06)
[2023-10-17] MEDS: metroNIDAZOLE/NS 500 MG/100 ML PIGGYBACK 100 MG IV ×3 (05:30→20:04)
[2023-10-17 05:36] LABS: MANUAL DIFF FLAG NO
[2023-10-17] MEDS: Dextrose 5 % 1,000 ML 100 ML IVCONT (05:37)
[2023-10-17 05:39] LABS: Basophils Percent Auto 0.3 % (0-2); Eosinophils Absolute Auto 0.2 X10*3/uL (0.0-0.4); Eosinophils Percent Auto 1.6 % (0-4); Hematocrit 23.9 % (42.0-52.0); Hemoglobin 8.1 g/dl (14.0-18.0); Imm Gran Abs Auto 0.11 X10*3/uL (0.00-0.03); Imm Gran Pct Auto 0.9 % (0.0-0.4); Lymphocytes Percent Auto 8.7 % (20-40); Mean Corpuscular HGB Conc 33.9 g/dl (31.0-36.0); Mean Corpuscular Hemoglobin 22.3 pg (27.0-33.0); Mean Corpuscular Volume 65.7 fL (80.0-98.0); Monocytes Absolute Auto 0.9 X10*3/uL (0.1-1.2); Monocytes Percent Auto 7.6 % (2-11); NRBC Pct Auto 0.4 /100WBC (0.0-0.2); Neutrophils Absolute Auto 9.5 x10*3/uL (2.0-8.3); Neutrophils Percent Auto 80.9 % (45-73); Platelet Count 302 X10*3/uL (160-400); Red Blood Count 3.64 X10*6/uL (4.60-5.80); Red Cell Distribution Width 15.1 % (11.0-16.0); White Blood Count 11.8 X10*3/uL (4.8-10.8)
[2023-10-17 05:56] LABS: Alanine Aminotransferase 12 U/L (0-40); Albumin Level 3.2 g/dL (3.5-5.0); Alkaline Phosphatase 85 U/L (39-117); Anion Gap 14 (12-20); Aspartate Amino Transferase 32 U/L (5-37); Bilirubin Total 0.6 mg/dL (0.0-1.0); Blood Urea Nitrogen 70 mg/dL (9-16); Calcium 9.3 mg/dL (8.4-10.2); Carbon Dioxide 25 mmol/L (22-29); Chloride 106 mmol/L (96-108); Creatinine Clr Calc Pharmacy 39.7; Estimated Glomerular Filt Rate 40; Glucose Random 341 mg/dL (60-115); Magnesium 1.8 mg/dL (1.6-2.6); Phosphorus 2.7 mg/dL (2.7-4.5); Potassium 3.7 mmol/L (3.3-5.1); Sodium 141 mmol/L (135-145); Total Protein 7.8 g/dL (6.5-8.0)
[2023-10-17] MEDS: Pantoprazole Sodium 40 MG/10 ML VIAL IVPUSH (06:05)
[2023-10-17 06:07] LABS: Venous Blood Gas Refer to POC result
[2023-10-17 06:12] LABS: Glucose, Whole Blood 267 mg/dL (60-115)
[2023-10-17] MEDS: Nystatin Powder 15 GM BOTTLE 1 APPL TOPICAL ×2 (08:09→20:13)
[2023-10-17] MEDS: Albumin Human 25 % 100 ML IV ×3 (08:09→20:05)
[2023-10-17] MEDS: vancomycin HCL 750 MG in 0.9 % Sodium Chloride 250 ML 265 MG IV (08:09)
[2023-10-17] MEDS: Chlorhexidine Gluc Oral Rinse 15 ML MOUTHWASH BUCCAL ×3 (08:09→20:04)
[2023-10-17 08:13] LABS: Vancomycin Random 16.4 mcg/mL (15-20)
--- NOTE | 2023-10-17 09:00 | HE.PHANOTE ---
VANCO DOSE ADJUSTMENT BASED ON SCR AND TROUGH OF 16.4 DOSE CONTINUED AT 750 Q 24H. NEXT LEVEL 10/18 @ 0700
--- NOTE | 2023-10-17 09:33 | PM.CCPN ---
Subjective Subjective Date of Service: 10/17/23 Interval History: 62-year-old gentleman with underlying HIV on HAART, hep C, COPD admitted on 10/02/2023 with acute hypoxic respiratory failure secondary to influenza with superimposed bacterial superinfection requiring intubation, pressor, and ventilatory support. Cultures are negative to date. Shock component has resolved. Now with abdominal distention secondary to ileus versus SBO, evaluated by general surgeon and deemed to underlying ileus. Extubated 10/13/2023. On 10/14/2023 with an aspiration event resulting in refractory hypoxia requiring emergent intubation and ventilatory support. No events overnight. Critical Care Time (minutes): 60 Physical Exam Vital Signs: Vital Signs: Last Vital Signs Temp 99.5 F 10/17/23 09:00 Pulse 97 10/17/23 09:00 Resp 20 10/17/23 09:00 BP 97/57 L 10/17/23 09:00 Pulse Ox 96 10/17/23 09:00 O2 Del Method Mechanical Ventil ation 10/17/23 09:00 O2 Flow Rate 50 10/14/23 10:00 FiO2 96 10/17/23 09:00 BMI result Body Mass Index 21.1 Const: General: no acute distress and other (Dated on the vent, follows commands with sedation vacations) Eyes: Sclerae: sclerae normal EOM: EOMs intact bilaterally Neck: Neck: Yes no lymphadenopathy, Yes trachea midline and Yes supple Resp: Auscultation: clear to auscultation bilaterally Cardio: Rate: regular rate Rhythm: regular rhythm Heart sounds: no gallops, no murmurs and no rubs GI: Palpation (GI): Soft to palpation and Other GI palpation findings present ( Nontender) Auscultation: normal bowel sounds Extrem: General: Yes no pedal edema, No clubbing and No cyanosis Objective Data Labs 10/17/23 05:15 10/17/23 05:15 Labs: Laboratory Results - last 24 hr 10/16/23 10/16/23 10/17/23 11:53 18:05 00:12 WBC RBC Hgb Hct MCV MCH MCHC RDW Plt Count MPV Immature Gran % (Auto) Neut % (Auto) Lymph % (Auto) [place] % (Auto) Eos % (Auto) Baso % (Auto) Lymph # (Auto) [place] # (Auto) Eos # (Auto) Baso # (Auto) Abs Immat Gran (auto) Absolute Neuts (auto) Absolute Nucleated RBC Nucleated RBC % (auto) VBG pH VBG pCO2 VBG pO2 VBG HCO3 VBG O2 Saturation VBG Base Excess Sodium Potassium Chloride Carbon Dioxide Anion Gap BUN Creatinine Estim Creat Clear Calc Estimated GFR POC Glucose 224 H 250 H 209 H Random Glucose Calcium Phosphorus Magnesium Total Bilirubin AST ALT Alkaline Phosphatase Total Protein Albumin Random Vancomycin 10/17/23 10/17/23 10/17/23 05:15 05:16 06:07 WBC 11.8 H RBC 3.64 L Hgb 8.1 L Hct 23.9 L MCV 65.7 L MCH 22.3 L MCHC 33.9 RDW 15.1 Plt Count 302 MPV 11.0 Immature Gran % (Auto) 0.9 H Neut % (Auto) 80.9 H Lymph % (Auto) 8.7 L [place] % (Auto) 7.6 Eos % (Auto) 1.6 Baso % (Auto) 0.3 Lymph # (Auto) 1.0 L [place] # (Auto) 0.9 Eos # (Auto) 0.2 Baso # (Auto) 0.0 Abs Immat Gran (auto) 0.11 H Absolute Neuts (auto) 9.5 H Absolute Nucleated RBC 0.050 H Nucleated RBC % (auto) 0.4 H VBG pH 7.49 H VBG pCO2 37 VBG pO2 37 VBG HCO3 28 H VBG O2 Saturation 49.0 VBG Base Excess 5.2 Sodium 141 Potassium 3.7 Chloride 106 Carbon Dioxide 25 Anion Gap 14 BUN 70 H Creatinine 1.74 H Estim Creat Clear Calc 39.7 Estimated GFR 40 POC Glucose 267 H Random Glucose 341 H Calcium 9.3 D Phosphorus 2.7 Magnesium 1.8 Total Bilirubin 0.6 AST 32 ALT 12 Alkaline Phosphatase 85 Total Protein 7.8 Albumin 3.2 L Random Vancomycin 10/17/23 07:56 WBC RBC Hgb Hct MCV MCH MCHC RDW Plt Count MPV Immature Gran % (Auto) Neut % (Auto) Lymph % (Auto) [place] % (Auto) Eos % (Auto) Baso % (Auto) Lymph # (Auto) [place] # (Auto) Eos # (Auto) Baso # (Auto) Abs Immat Gran (auto) Absolute Neuts (auto) Absolute Nucleated RBC Nucleated RBC % (auto) VBG pH VBG pCO2 VBG pO2 VBG HCO3 VBG O2 Saturation VBG Base Excess Sodium Potassium Chloride Carbon Dioxide Anion Gap BUN Creatinine Estim Creat Clear Calc Estimated GFR POC Glucose Random Glucose Calcium Phosphorus Magnesium Total Bilirubin AST ALT Alkaline Phosphatase Total Protein Albumin Random Vancomycin 16.4 Microbiology Microbiology Results: Microbiology 10/02/23 06:40 Sputum - Suctioned Direct Acid Fast Bacilli Smear - Final 10/02/23 03:11 Blood - Central Line Blood Culture - Final No growth after 5 days. 10/02/23 03:11 Blood - Central Line Blood Culture - Final Coag negative Staphylococcus 10/02/23 06:40 Sputum - Suctioned Gram Stain - Final 10/02/23 06:40 Sputum - Suctioned Sputum Culture - Final 10/02/23 06:40 Urine Catheterized - Miguel Catheter Urine Culture - Final No growth. Progress Note: A&P Assessment and plan (1) CKD (chronic kidney disease): Status: Acute (2) AMBER (acute kidney injury): Status: Acute (3) Pneumonia: Status: Acute (4) HIV (human immunodeficiency virus infection): Status: Acute (5) Acute hypoxic respiratory failure: Status: Acute (6) Hepatitis C: Status: Acute (7) COPD (chronic obstructive pulmonary disease): Status: Acute Plan Assessment: 62-year-old gentleman with underlying HIV on HAART, hep C admitted with acute hypoxic respiratory failure secondary to bacterial superinfection of underlying influenza now requiring ventilatory support Plan: Neuro: No acute issues. Cardiac: Septic shock, improving, continue to titrate off pressor support as tolerated. Pulmonary: Acute hypoxic respiratory failure secondary to bacterial superinfection of underlying influenza, improved and extubated on 10/13/2023. However with development of recurrent aspirations requiring re-intubation on 10/14/2023. May require tracheostomy. Renal: Acute kidney injury secondary to septic shock, improving. Non oliguric. Continue to monitor renal indices and urine output. Endo: No acute issues. GI: Ileus, resolved. General surgery service care appreciated. ID: Cultures negative to date. Leukocytosis is improving. Continue empiric antibiotics. Heme/Onc: No acute issues. Psych: No acute issues. Miscellaneous: No acute issues. Prophylaxis: Heparin, ppi Diet: Tube feeds Critical care time spent: 60 minutes Quality Stroke Does the patient have a stroke diagnosis?: No VTE Prior VTE?: No VTE Risk Level:: Medical - moderate - high VTE Device Contraindication: N/A - Device Ordered VTE Drug Contraindication: N/A - Med Ordered
[2023-10-17 12:20] LABS: Glucose, Whole Blood 176 mg/dL (60-115)
[2023-10-17] MEDS: Norepinephrine Bitartrate/D5W 8 MG/250 ML PLAST..BAG 14.81 MG IV (12:53)
--- NOTE | 2023-10-17 15:28 | PC.NURSE ---
Addendum entered by Mert Tolentino RN 10/17/23 17:33: residual 70cc via OGT Original Note: when MD arrived on unit, verbal order was given to perform sedation vacation; RT informed. Pt RR increased to 40s, was excessively drooling and appeared uncomfortable. Pt followed one command, to blink eyes and did maintain eye contact and tracked but did not follow any other commands. Md informed. pt placed back on sedation and vent settings returned to [facility].
[2023-10-17 17:26] LABS: Glucose, Whole Blood 153 mg/dL (60-115)
[2023-10-17 23:56] LABS: Glucose, Whole Blood 147 mg/dL (60-115)
[2023-10-18] VITALS (43 sets, daily range): BP systolic 88–125; BP diastolic 46–78; PULSE 68–111; RESP 24–40; TEMP 35–38.7; O2SAT 92–100; BMI 21.0
[2023-10-18] MEDS: Albumin Human 25 % 100 ML IV (01:22)
[2023-10-18] MEDS: propofoL 1,000 MG/100 ML VIAL 18.66 MG IVCONT ×2 (02:48→05:49)
[2023-10-18] MEDS: metroNIDAZOLE/NS 500 MG/100 ML PIGGYBACK 100 MG IV ×3 (03:07→19:10)
[2023-10-18] MEDS: Heparin Sodium,Porcine 5,000 UNIT/ML VIAL 5000 UNIT SUBCUT (03:08)
[2023-10-18] MEDS: fentaNYL citrate/PF 100 MCG/2 ML VIAL IVPUSH (04:31)
[2023-10-18] MEDS: Piperacillin Sodium/Tazobactam 2.25 GM in 0.9 % Sodium Chloride 50 ML IV ×4 (04:49→22:40)
[2023-10-18 05:13] LABS: MANUAL DIFF FLAG NO
[2023-10-18 05:20] LABS: VBG Base Excess 1.7 mmol/L; VBG HCO3 25 mmol/L (22-26); VBG pCO2 35 mmHg; VBG pH 7.46 (7.32-7.43); VBG pO2 39 mmHg
[2023-10-18 05:21] LABS: Basophils Percent Auto 0.2 % (0-2); Eosinophils Absolute Auto 0.2 X10*3/uL (0.0-0.4); Eosinophils Percent Auto 1.8 % (0-4); Hemoglobin 7.1 g/dl (14.0-18.0); Imm Gran Abs Auto 0.11 X10*3/uL (0.00-0.03); Imm Gran Pct Auto 1.2 % (0.0-0.4); Lymphocytes Absolute Auto 0.9 X10*3/uL (1.2-4.9); Lymphocytes Percent Auto 9.3 % (20-40); Monocytes Absolute Auto 0.6 X10*3/uL (0.1-1.2); Monocytes Percent Auto 6.4 % (2-11); Neutrophils Absolute Auto 7.6 x10*3/uL (2.0-8.3); Neutrophils Percent Auto 81.1 % (45-73); Platelet Count 280 X10*3/uL (160-400); Red Blood Count 3.23 X10*6/uL (4.60-5.80); Red Cell Distribution Width 15.4 % (11.0-16.0); White Blood Count 9.3 X10*3/uL (4.8-10.8)
[2023-10-18 05:22] LABS: Venous Blood Gas Refer to POC result
[2023-10-18 05:27] LABS: Mean Corpuscular Volume 64.7 fL (80.0-98.0)
[2023-10-18 05:29] LABS: Hematocrit 20.9 % (42.0-52.0)
[2023-10-18 05:36] LABS: Albumin Level 4.2 g/dL (3.5-5.0); Anion Gap 16 (12-20); Blood Urea Nitrogen 53 mg/dL (9-16); Carbon Dioxide 23 mmol/L (22-29); Chloride 109 mmol/L (96-108); Creatinine Clr Calc Pharmacy 46.2; Estimated Glomerular Filt Rate 48; Glucose Random 222 mg/dL (60-115); Magnesium 1.6 mg/dL (1.6-2.6); Phosphorus 2.8 mg/dL (2.7-4.5); Potassium 3.4 mmol/L (3.3-5.1); Sodium 145 mmol/L (135-145)
[2023-10-18] MEDS: Pantoprazole Sodium 40 MG/10 ML VIAL IVPUSH (05:49)
[2023-10-18] MEDS: Insulin Lispro 100 UNIT/ML 3 ML VIAL SUBCUT ×3 (05:50→23:51)
[2023-10-18] MEDS: Potassium Chloride Packet 20 MEQ PACKET 40 MEQ OG-TUBE (05:55)
--- NOTE | 2023-10-18 07:31 | P.PNCC_ITS ---
Subjective Subjective Date of Service: 10/18/23 Critical Care Time (minutes): 90 Physical Exam 2 Vital Signs: Vital Signs: Last Vital Signs Temp 98.2 F 10/18/23 07:00 Pulse 96 10/18/23 07:00 Resp 34 H 10/18/23 07:00 BP 110/68 10/18/23 07:00 Pulse Ox 100 10/18/23 07:00 O2 Del Method Mechanical Ventil ation 10/18/23 07:00 O2 Flow Rate 50 10/14/23 10:00 FiO2 35 10/18/23 07:02 BMI result Body Mass Index 21.0 Const: Other: awake, alert, tracks to verbal stimulus General: no acute distress HEENT: Head: Yes normal to inspection, Yes normocephalic and Yes atraumatic Eyes: General: appearance normal, both eyes and all related structures Neck: Neck: Yes normal visual inspection, Yes full ROM, Yes no meningeal signs and Yes supple Chest: Chest palpation & inspection: normal inspection of the chest Resp: Other: minimal rhonchi; no appreciable rales, wheezing Cardio: Rate: regular rate Rhythm: regular rhythm GI: Other: normoactive bowel sounds Inspection: Yes normal to inspection, No Abdominal wall edema and No distended Palpation (GI): Soft to palpation, not firm, nontender, no guarding and not rigid : Male General Exam: Yes normal external exam Skin: General skin exam: no rashes or lesions noted Neuro: General: tone normal, moves all extremities, no meningeal signs and no focal motor deficits Extrem: General: Yes normal to inspection, Yes full ROM, Yes capillary refill normal and Yes no clubbing, cyanosis or edema Psych: Appearance: grossly normal Objective Data Labs 10/18/23 05:06 10/18/23 05:06 Labs: Laboratory Results - last 24 hr 10/17/23 10/17/23 10/17/23 07:56 12:17 17:19 WBC RBC Hgb Hct MCV MCH MCHC RDW Plt Count MPV Immature Gran % (Auto) Neut % (Auto) Lymph % (Auto) [place] % (Auto) Eos % (Auto) Baso % (Auto) Lymph # (Auto) [place] # (Auto) Eos # (Auto) Baso # (Auto) Abs Immat Gran (auto) Absolute Neuts (auto) Absolute Nucleated RBC Nucleated RBC % (auto) VBG pH VBG pCO2 VBG pO2 VBG HCO3 VBG O2 Saturation VBG Base Excess Sodium Potassium Chloride Carbon Dioxide Anion Gap BUN Creatinine Estim Creat Clear Calc Estimated GFR POC Glucose 176 H 153 H Random Glucose Calcium Phosphorus Magnesium Albumin Random Vancomycin 16.4 10/17/23 10/18/23 10/18/23 23:48 05:06 05:13 WBC 9.3 RBC 3.23 L Hgb 7.1 L Hct 20.9 L* MCV 64.7 L MCH 22.0 L MCHC 34.0 RDW 15.4 Plt Count 280 MPV 11.0 Immature Gran % (Auto) 1.2 H Neut % (Auto) 81.1 H Lymph % (Auto) 9.3 L [place] % (Auto) 6.4 Eos % (Auto) 1.8 Baso % (Auto) 0.2 Lymph # (Auto) 0.9 L [place] # (Auto) 0.6 Eos # (Auto) 0.2 Baso # (Auto) 0.0 Abs Immat Gran (auto) 0.11 H Absolute Neuts (auto) 7.6 Absolute Nucleated RBC 0.000 Nucleated RBC % (auto) 0.0 VBG pH 7.46 H VBG pCO2 35 VBG pO2 39 VBG HCO3 25 VBG O2 Saturation 55.0 VBG Base Excess 1.7 Sodium 145 Potassium 3.4 Chloride 109 H Carbon Dioxide 23 Anion Gap 16 BUN 53 H Creatinine 1.49 H Estim Creat Clear Calc 46.2 Estimated GFR 48 POC Glucose 147 H Random Glucose 222 H Calcium 10.0 D Phosphorus 2.8 Magnesium 1.6 Albumin 4.2 Random Vancomycin Microbiology Microbiology Results: Microbiology 10/02/23 06:40 Sputum - Suctioned Direct Acid Fast Bacilli Smear - Final 10/02/23 03:11 Blood - Central Line Blood Culture - Final No growth after 5 days. 10/02/23 03:11 Blood - Central Line Blood Culture - Final Coag negative Staphylococcus 10/02/23 06:40 Sputum - Suctioned Gram Stain - Final 10/02/23 06:40 Sputum - Suctioned Sputum Culture - Final 10/02/23 06:40 Urine Catheterized - Miguel Catheter Urine Culture - Final No growth. Progress Note: A&P Assessment and plan (1) AMBER (acute kidney injury): Status: Acute (2) Pneumonia: Status: Acute (3) HIV (human immunodeficiency virus infection): Status: Acute (4) Acute hypoxic respiratory failure: Status: Acute (5) COPD (chronic obstructive pulmonary disease): Status: Acute (6) Hepatitis C: Status: Acute Plan Patient is a 62 Y M with HIV, HCV, COPD, presenting initially on 10/02 to ED w/ dyspnea, found to have influenza, c/f bacterial super-infection, in acute hypoxic respiratory failure, intubated; ICU course c/b septic shock, acute renal insufficiency, ileus; of not, patient extubated 10/12, re-intubated 10/13 d/t aspiration, c/b acute hypoxic respiratory failure N: intubated, sedated w/ propofol gtt, wean as tolerated CV: shock, likely septic shock; norepinephrine gtts, wean as tolerated; stress- dose steroids; troponinemia, likely demand, improving R: acute hypoxic respiratory failure, d/t influenza, c/f bacterial super- infection, intubated, extubated, re-intubated, wean ventilator as tolerated GI: ileus, resolved; tube feeds : AMBER, improving; to monitor renal indices H: no acute issues ID: c/f septic shock d/t pneumonia; empiric vancomycin, zosyn, metronidazole; HIV E: hyperglycemia, to continue to monitor P: no acute issues Quality Stroke Does the patient have a stroke diagnosis?: No VTE Prior VTE?: No VTE Risk Level:: Medical - moderate - high VTE Device Contraindication: N/A - Device Ordered VTE Drug Contraindication: N/A - Med Ordered
[2023-10-18] MEDS: 0.9 % Sodium Chloride Flush 10 ML SYRINGE IVFLUSH ×3 (08:26→23:08)
[2023-10-18] MEDS: Furosemide 20 MG/2 ML VIAL IVPUSH ×2 (08:27→17:44)
[2023-10-18] MEDS: Chlorhexidine Gluc Oral Rinse 15 ML MOUTHWASH BUCCAL ×3 (08:27→19:11)
[2023-10-18] MEDS: vancomycin HCL 750 MG in 0.9 % Sodium Chloride 250 ML 265 MG IV (08:27)
[2023-10-18] MEDS: Norepinephrine Bitartrate/D5W 8 MG/250 ML PLAST..BAG 10.37 MG IV (08:27)
[2023-10-18] MEDS: Nystatin Powder 15 GM BOTTLE 1 APPL TOPICAL ×2 (08:28→19:13)
[2023-10-18] MEDS: dexmedeTOMIDidine HCL/NS 400 MCG/100 ML INFUS..BTL 16.1 MCG IVCONT ×2 (09:30→13:55)
[2023-10-18 09:46] LABS: MANUAL DIFF FLAG NO
--- NOTE | 2023-10-18 09:51 | MHC.CLN ---
F/U DISCUSSED AT ROUNDS WITH REVIEWED LABS PT TOLERATING NEPRO AT MAX GOAL RATE 30ML/HR WITH 240ML FWF Q 6 HRS PROVIDES 1296KCALS (1788KCALS WITH SEDATION; 27KCALS/KG), 58G PROTEIN (.87G/KG), 1483ML TOTAL WATER FROM FORMULA AND FLUSHES (22ML/KG) TOLERATING WITH LOW RESIDUALS PER NSG CONTINUE TO MONITOR TOLERANCE, RESIDUALS, AND LYTES
[2023-10-18 09:54] LABS: Basophils Percent Auto 0.3 % (0-2); Eosinophils Absolute Auto 0.2 X10*3/uL (0.0-0.4); Eosinophils Percent Auto 1.8 % (0-4); Hematocrit 21.1 % (42.0-52.0); Hemoglobin 7.2 g/dl (14.0-18.0); Imm Gran Abs Auto 0.12 X10*3/uL (0.00-0.03); Imm Gran Pct Auto 1.1 % (0.0-0.4); Lymphocytes Absolute Auto 0.8 X10*3/uL (1.2-4.9); Lymphocytes Percent Auto 7.6 % (20-40); Mean Corpuscular HGB Conc 34.1 g/dl (31.0-36.0); Mean Corpuscular Hemoglobin 22.1 pg (27.0-33.0); Mean Platelet Volume 10.8 fL (9.4-12.4); Monocytes Absolute Auto 0.8 X10*3/uL (0.1-1.2); Monocytes Percent Auto 7.4 % (2-11); NRBC Pct Auto 0.2 /100WBC (0.0-0.2); Neutrophils Absolute Auto 8.8 x10*3/uL (2.0-8.3); Neutrophils Percent Auto 81.8 % (45-73); Platelet Count 281 X10*3/uL (160-400); Red Blood Count 3.26 X10*6/uL (4.60-5.80); Red Cell Distribution Width 15.6 % (11.0-16.0); White Blood Count 10.7 X10*3/uL (4.8-10.8)
[2023-10-18 10:04] LABS: Mean Corpuscular Volume 64.7 fL (80.0-98.0)
--- NOTE | 2023-10-18 10:07 | P.PNNP_ITS ---
Subjective Subjective Date of Service: 10/18/23 Interval history: Remains inubated Low dose pressors Non oliguric Physical Exam 2 Vital Signs: Vital Signs: Last Vital Signs Temp 98.4 F 10/18/23 09:00 Pulse 91 10/18/23 09:59 Resp 26 H 10/18/23 09:00 BP 88/48 L 10/18/23 09:59 Pulse Ox 96 10/18/23 09:00 O2 Del Method Mechanical Ventil ation 10/18/23 09:00 O2 Flow Rate 50 10/14/23 10:00 FiO2 35 10/18/23 09:00 BMI result Body Mass Index 21.0 Const: General: no acute distress and ill appearing HEENT: Head: Yes normocephalic Mouth: Normal oral and palatal mucosa present Neck: Neck: Yes supple Resp: Auscultation: clear to auscultation bilaterally and diminished lung sounds Cardio: Jugular venous distension: no JVD Palpation: no palpable S3 R ate: regular rate Heart sounds: no rubs GI: Palpation (GI): Soft to palpation Auscultation: normal bowel sounds Neuro: Other: Intubated and sedated Motor exam (neuro): no asterixis Objective Data Labs 10/18/23 05:06 10/18/23 05:06 Labs: Laboratory Results - last 24 hr 10/17/23 10/17/23 10/17/23 12:17 17:19 23:48 WBC RBC Hgb Hct MCV MCH MCHC RDW Plt Count MPV Immature Gran % (Auto) Neut % (Auto) Lymph % (Auto) [place] % (Auto) Eos % (Auto) Baso % (Auto) Lymph # (Auto) [place] # (Auto) Eos # (Auto) Baso # (Auto) Abs Immat Gran (auto) Absolute Neuts (auto) Absolute Nucleated RBC Nucleated RBC % (auto) VBG pH VBG pCO2 VBG pO2 VBG HCO3 VBG O2 Saturation VBG Base Excess Sodium Potassium Chloride Carbon Dioxide Anion Gap BUN Creatinine Estim Creat Clear Calc Estimated GFR POC Glucose 176 H 153 H 147 H Random Glucose Calcium Phosphorus Magnesium Albumin 10/18/23 10/18/23 05:06 05:13 WBC 9.3 RBC 3.23 L Hgb 7.1 L Hct 20.9 L* MCV 64.7 L MCH 22.0 L MCHC 34.0 RDW 15.4 Plt Count 280 MPV 11.0 Immature Gran % (Auto) 1.2 H Neut % (Auto) 81.1 H Lymph % (Auto) 9.3 L [place] % (Auto) 6.4 Eos % (Auto) 1.8 Baso % (Auto) 0.2 Lymph # (Auto) 0.9 L [place] # (Auto) 0.6 Eos # (Auto) 0.2 Baso # (Auto) 0.0 Abs Immat Gran (auto) 0.11 H Absolute Neuts (auto) 7.6 Absolute Nucleated RBC 0.000 Nucleated RBC % (auto) 0.0 VBG pH 7.46 H VBG pCO2 35 VBG pO2 39 VBG HCO3 25 VBG O2 Saturation 55.0 VBG Base Excess 1.7 Sodium 145 Potassium 3.4 Chloride 109 H Carbon Dioxide 23 Anion Gap 16 BUN 53 H Creatinine 1.49 H Estim Creat Clear Calc 46.2 Estimated GFR 48 POC Glucose Random Glucose 222 H Calcium 10.0 D Phosphorus 2.8 Magnesium 1.6 Albumin 4.2 Microbiology Microbiology Results: Microbiology 10/02/23 06:40 Sputum - Suctioned Direct Acid Fast Bacilli Smear - Final 10/02/23 03:11 Blood - Central Line Blood Culture - Final No growth after 5 days. 10/02/23 03:11 Blood - Central Line Blood Culture - Final Coag negative Staphylococcus 10/02/23 06:40 Sputum - Suctioned Gram Stain - Final 10/02/23 06:40 Sputum - Suctioned Sputum Culture - Final 10/02/23 06:40 Urine Catheterized - Miugel Catheter Urine Culture - Final No growth. Procedures Date of Service Date of Service: 10/18/23 Assessment & Plan Assessment and plan (1) AMBER (acute kidney injury): Status: Acute (2) Hyperkalemia: Status: Acute (3) CKD (chronic kidney disease): Status: Acute Plan 62-year-old man with HIV has acute kidney injury superimposed on chronic kidney disease with hyperkalemia and mild metabolic acidosis. DDX acute kidney injury would include acute tubular necrosis from various episodes of hypotension as well as underlying infectious process. 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 Urine - No eosinophils Urine Pro: Cr > 2.0 Recommendations Can use Lasix judiciously to optimize fluid status. Watch urine output closely. No indication for dialysis at this time. We will follow with the team. Time Spent With Patient Time: Total time managing care of this patient today ____ minutes. Progress Note: Quality Stroke Does the patient have a stroke diagnosis?: No
[2023-10-18 11:13] LABS: Glucose, Whole Blood 148 mg/dL (60-115)
[2023-10-18] MEDS: propofoL 1,000 MG/100 ML VIAL 11.2 MG IVCONT (11:29)
--- NOTE | 2023-10-18 12:49 | MHC.CM.PN ---
Pt continues care in ICU: on vent support and pressors for BP managment: Pt on 3 ATB for aspiration PNA and Lasix gtt for/10 Liters +. MD to speak with son today about possible peg/trach and LTACH needs. Pt has multiple medical issues including preexisting comorbid conditions that may impact recovery. CM to follow for finalization of d/c needs. No LTACH referrals made at this time.
[2023-10-18 17:07] LABS: Glucose, Whole Blood 240 mg/dL (60-115)
[2023-10-18] MEDS: HYDROmorphone HCl 0.5 MG/0.5 ML SYRINGE IVPUSH (18:34)
[2023-10-18] MEDS: Acetaminophen Oral Liquid 650 MG/20.3 ML SOLUTION 975 MG PO (18:35)
[2023-10-18] MEDS: dexmedeTOMIDidine HCL/NS 400 MCG/100 ML INFUS..BTL 19.32 MCG IVCONT (19:09)
[2023-10-18 20:54] LABS: MANUAL DIFF FLAG NO
[2023-10-18 20:57] LABS: Basophils Percent Auto 0.3 % (0-2); Eosinophils Absolute Auto 0.2 X10*3/uL (0.0-0.4); Eosinophils Percent Auto 2.5 % (0-4); Hemoglobin 7.1 g/dl (14.0-18.0); Imm Gran Abs Auto 0.12 X10*3/uL (0.00-0.03); Imm Gran Pct Auto 1.3 % (0.0-0.4); Lymphocytes Absolute Auto 0.8 X10*3/uL (1.2-4.9); Lymphocytes Percent Auto 8.7 % (20-40); Mean Corpuscular HGB Conc 34.1 g/dl (31.0-36.0); Mean Corpuscular Hemoglobin 22.3 pg (27.0-33.0); Mean Corpuscular Volume 65.2 fL (80.0-98.0); Monocytes Absolute Auto 0.8 X10*3/uL (0.1-1.2); Monocytes Percent Auto 8.5 % (2-11); NRBC Pct Auto 0.2 /100WBC (0.0-0.2); Neutrophils Absolute Auto 7.4 x10*3/uL (2.0-8.3); Neutrophils Percent Auto 78.7 % (45-73); Platelet Count 275 X10*3/uL (160-400); Red Blood Count 3.19 X10*6/uL (4.60-5.80); Red Cell Distribution Width 15.7 % (11.0-16.0); White Blood Count 9.3 X10*3/uL (4.8-10.8)
[2023-10-18 21:01] LABS: Hematocrit 20.8 % (42.0-52.0)
[2023-10-18 21:12] LABS: Alanine Aminotransferase 14 U/L (0-40); Albumin Level 3.7 g/dL (3.5-5.0); Alkaline Phosphatase 60 U/L (39-117); Anion Gap 15 (12-20); Aspartate Amino Transferase 37 U/L (5-37); Bilirubin Total 0.6 mg/dL (0.0-1.0); Blood Urea Nitrogen 57 mg/dL (9-16); Calcium 9.7 mg/dL (8.4-10.2); Carbon Dioxide 21 mmol/L (22-29); Chloride 112 mmol/L (96-108); Creatinine Clr Calc Pharmacy 40.2; Estimated Glomerular Filt Rate 41; Glucose Random 248 mg/dL (60-115); Potassium 3.3 mmol/L (3.3-5.1); Sodium 145 mmol/L (135-145); Total Protein 7.8 g/dL (6.5-8.0)
[2023-10-18 22:19] LABS: Iron 16 mcg/dL (45-160); Percent Iron Saturation 18 % (15-50); Total Iron Binding Capacity 89 mcg/dL (228-428); Unsaturated Iron Binding 73 ug/dL
[2023-10-18] MEDS: dexmedeTOMIDidine HCL/NS 400 MCG/100 ML INFUS..BTL 22.54 MCG IVCONT (23:06)
[2023-10-18 23:50] LABS: Glucose, Whole Blood 205 mg/dL (60-115)
[2023-10-19] VITALS (56 sets, daily range): BP systolic 79–170; BP diastolic 45–107; PULSE 68–128; RESP 19–42; TEMP 34.5–38.8; O2SAT 88–98; BMI 21.7
[2023-10-19] MEDS: Norepinephrine Bitartrate/D5W 8 MG/250 ML PLAST..BAG 13.33 MG IV (00:42)
[2023-10-19] MEDS: HYDROmorphone HCl 0.5 MG/0.5 ML SYRINGE IVPUSH ×2 (02:29→06:42)
[2023-10-19] MEDS: metroNIDAZOLE/NS 500 MG/100 ML PIGGYBACK 100 MG IV ×3 (03:19→19:50)
[2023-10-19] MEDS: dexmedeTOMIDidine HCL/NS 400 MCG/100 ML INFUS..BTL 24.15 MCG IVCONT ×6 (03:20→23:33)
[2023-10-19] MEDS: Piperacillin Sodium/Tazobactam 2.25 GM in 0.9 % Sodium Chloride 50 ML IV ×4 (04:27→22:14)
[2023-10-19 05:40] LABS: Glucose, Whole Blood 187 mg/dL (60-115)
[2023-10-19] MEDS: Insulin Lispro 100 UNIT/ML 3 ML VIAL SUBCUT ×3 (05:42→23:47)
[2023-10-19] MEDS: Pantoprazole Sodium 40 MG/10 ML VIAL IVPUSH (05:42)
[2023-10-19 06:53] LABS: VBG Base Excess -3.5 mmol/L; VBG HCO3 19 mmol/L (22-26); VBG pCO2 27 mmHg; VBG pH 7.44 (7.32-7.43); VBG pO2 67 mmHg
[2023-10-19 07:10] LABS: VBG Base Excess -0.1 mmol/L; VBG HCO3 22 mmol/L (22-26); VBG pCO2 27 mmHg; VBG pO2 44 mmHg
--- NOTE | 2023-10-19 07:18 | PM.CCPN ---
Subjective Subjective Date of Service: 10/19/23 Interval History: no significant overnight events Critical Care Time (minutes): 90 Physical Exam Vital Signs: Vital Signs: Last Vital Signs Temp 101.8 F H 10/19/23 07:00 Pulse 125 H 10/19/23 07:00 Resp 22 H 10/19/23 07:00 BP 145/94 H 10/19/23 07:00 Pulse Ox 95 10/19/23 07:00 O2 Del Method Mechanical Ventil ation 10/19/23 07:00 O2 Flow Rate 50 10/14/23 10:00 FiO2 25 10/19/23 07:00 BMI result Body Mass Index 21.7 Const: Other: appreciable tachypnea General: alert, awake and Physically active HEENT: Head: Yes normal to inspection, No normocephalic and No atraumatic Eyes: General: appearance normal, both eyes and all related structures Neck: Neck: Yes normal visual inspection, Yes full ROM, Yes no meningeal signs and Yes supple Chest: Chest palpation & inspection: normal inspection of the chest Resp: Other: appreciable tachypnea; appreciable wheezing; no appreciable rales, rhonchi Cardio: Rate: tachycardic Rhythm: regular rhythm GI: Inspection: Yes normal to inspection, No Abdominal wall edema and No distended Palpation (GI): Soft to palpation, not firm, nontender, no guarding and not rigid Skin: General skin exam: no rashes or lesions noted Neuro: General: tone normal, moves all extremities, no meningeal signs and no focal motor deficits Extrem: General: Yes normal to inspection, Yes full ROM, Yes capillary refill normal and Yes no clubbing, cyanosis or edema Psych: Other: appreciable anxiety Objective Data Labs 10/18/23 20:08 10/18/23 20:08 Labs: Laboratory Results - last 24 hr 10/18/23 10/18/23 10/18/23 09:40 11:09 17:02 WBC 10.7 RBC 3.26 L Hgb 7.2 L Hct 21.1 L MCV 64.7 L MCH 22.1 L MCHC 34.1 RDW 15.6 Plt Count 281 MPV 10.8 Immature Gran % (Auto) 1.1 H Neut % (Auto) 81.8 H Lymph % (Auto) 7.6 L [place] % (Auto) 7.4 Eos % (Auto) 1.8 Baso % (Auto) 0.3 Lymph # (Auto) 0.8 L [place] # (Auto) 0.8 Eos # (Auto) 0.2 Baso # (Auto) 0.0 Abs Immat Gran (auto) 0.12 H Absolute Neuts (auto) 8.8 H Absolute Nucleated RBC 0.020 H Nucleated RBC % (auto) 0.2 VBG pH VBG pCO2 VBG pO2 VBG HCO3 VBG O2 Saturation VBG Base Excess Sodium Potassium Chloride Carbon Dioxide Anion Gap BUN Creatinine Estim Creat Clear Calc Estimated GFR POC Glucose 148 H 240 H Random Glucose Calcium Iron TIBC % Saturation Unsat Iron Binding Total Bilirubin AST ALT Alkaline Phosphatase Total Protein Albumin Blood Type O Positive Antibody Screen POSITIVE Antibody Identification Anti-M JENNIFER, Polyspecific NEGATIVE Positive JENNIFER Work-up TNP Crossmatch (G) See Detail 10/18/23 10/18/23 10/18/23 20:07 20:08 23:42 WBC 9.3 RBC 3.19 L Hgb 7.1 L Hct 20.8 L* MCV 65.2 L MCH 22.3 L MCHC 34.1 RDW 15.7 Plt Count 275 MPV 11.0 Immature Gran % (Auto) 1.3 H Neut % (Auto) 78.7 H Lymph % (Auto) 8.7 L [place] % (Auto) 8.5 Eos % (Auto) 2.5 Baso % (Auto) 0.3 Lymph # (Auto) 0.8 L [place] # (Auto) 0.8 Eos # (Auto) 0.2 Baso # (Auto) 0.0 Abs Immat Gran (auto) 0.12 H Absolute Neuts (auto) 7.4 Absolute Nucleated RBC 0.020 H Nucleated RBC % (auto) 0.2 VBG pH 7.50 H VBG pCO2 27 VBG pO2 44 VBG HCO3 22 VBG O2 Saturation 66.0 VBG Base Excess -0.1 Sodium 145 Potassium 3.3 Chloride 112 H Carbon Dioxide 21 L Anion Gap 15 BUN 57 H Creatinine 1.71 H Estim Creat Clear Calc 40.2 Estimated GFR 41 POC Glucose 205 H Random Glucose 248 H Calcium 9.7 Iron 16 L TIBC 89 L % Saturation 18 Unsat Iron Binding 73 Total Bilirubin 0.6 AST 37 ALT 14 Alkaline Phosphatase 60 Total Protein 7.8 Albumin 3.7 Blood Type Antibody Screen Antibody Identification JENNIFER, Polyspecific Positive JENNIFER Work-up Crossmatch ([facility]) 10/19/23 10/19/23 05:34 06:46 WBC RBC Hgb Hct MCV MCH MCHC RDW Plt Count MPV Immature Gran % (Auto) Neut % (Auto) Lymph % (Auto) [place] % (Auto) Eos % (Auto) Baso % (Auto) Lymph # (Auto) [place] # (Auto) Eos # (Auto) Baso # (Auto) Abs Immat Gran (auto) Absolute Neuts (auto) Absolute Nucleated RBC Nucleated RBC % (auto) VBG pH 7.44 H VBG pCO2 27 VBG pO2 67 VBG HCO3 19 L VBG O2 Saturation 90.0 VBG Base Excess -3.5 Sodium Potassium Chloride Carbon Dioxide Anion Gap BUN Creatinine Estim Creat Clear Calc Estimated GFR POC Glucose 187 H Random Glucose Calcium Iron TIBC % Saturation Unsat Iron Binding Total Bilirubin AST ALT Alkaline Phosphatase Total Protein Albumin Blood Type Antibody Screen Antibody Identification JENNIFER, Polyspecific Positive JENNIFER Work-up Crossmatch ([facility]) Microbiology Microbiology Results: Microbiology 10/02/23 06:40 Sputum - Suctioned Direct Acid Fast Bacilli Smear - Final 10/02/23 03:11 Blood - Central Line Blood Culture - Final No growth after 5 days. 10/02/23 03:11 Blood - Central Line Blood Culture - Final Coag negative Staphylococcus 10/02/23 06:40 Sputum - Suctioned Gram Stain - Final 10/02/23 06:40 Sputum - Suctioned Sputum Culture - Final 10/02/23 06:40 Urine Catheterized - Miguel Catheter Urine Culture - Final No growth. Progress Note: A&P Assessment and plan (1) AMBER (acute kidney injury): Status: Acute (2) HIV (human immunodeficiency virus infection): Status: Acute (3) Acute hypoxic respiratory failure: Status: Acute (4) Hepatitis C: Status: Acute (5) COPD (chronic obstructive pulmonary disease): Status: Acute (6) Pneumonia: Status: Acute Plan Patient is a 62 Y M with HIV, HCV, COPD, presenting initially on 10/02 to ED w/ dyspnea, found to have influenza, c/f bacterial super-infection, in acute hypoxic respiratory failure, intubated; ICU course c/b septic shock, acute renal insufficiency, ileus; of not, patient extubated 10/12, re-intubated 10/13 d/t aspiration, c/b acute hypoxic respiratory failure N: intubated, sedated w/ dexmedetomidine, propofol gtt, wean as tolerated CV: shock, likely septic shock; norepinephrine gtts, wean as tolerated R: acute hypoxic respiratory failure, d/t influenza, c/f bacterial super-infection, intubated, extubated, re-intubated, wean ventilator as tolerated; ongoing tracheostomy consideration GI: possible GI bleed, though no appreciable hematemesis, melena; tube feeds : AMBER, improving; to monitor renal indices; gross volume overload, furosemide gtt H: anemia, unclear etiology; transfuse as needed ID: c/f septic shock d/t pneumonia; empiric vancomycin, zosyn, metronidazole; HIV E: hyperglycemia, to continue to monitor P: no acute issues Quality Stroke Does the patient have a stroke diagnosis?: No VTE Prior VTE?: No VTE Risk Level:: Medical - moderate - high VTE Device Contraindication: N/A - Device Ordered VTE Drug Contraindication: Treatment Not Tolerated
[2023-10-19] MEDS: propofoL 1,000 MG/100 ML VIAL 4 MG IVCONT (07:26)
[2023-10-19 07:30] LABS: Venous Blood Gas Refer to POC result
[2023-10-19 07:32] LABS: Basophils Absolute Auto 0.1 X10*3/uL (0.0-0.2); Basophils Percent Auto 0.6 % (0-2); Eosinophils Absolute Auto 0.2 X10*3/uL (0.0-0.4); Eosinophils Percent Auto 2.1 % (0-4); Hemoglobin 11.9 g/dl (14.0-18.0); Imm Gran Abs Auto 0.14 X10*3/uL (0.00-0.03); Imm Gran Pct Auto 1.6 % (0.0-0.4); Lymphocytes Absolute Auto 1.6 X10*3/uL (1.2-4.9); Lymphocytes Percent Auto 17.4 % (20-40); MANUAL DIFF FLAG SCAN; Mean Corpuscular HGB Conc 33.1 g/dl (31.0-36.0); Mean Corpuscular Hemoglobin 24.1 pg (27.0-33.0); Mean Corpuscular Volume 72.9 fL (80.0-98.0); Monocytes Absolute Auto 0.7 X10*3/uL (0.1-1.2); Monocytes Percent Auto 7.5 % (2-11); NRBC Pct Auto 0.3 /100WBC (0.0-0.2); Neutrophils Absolute Auto 6.4 x10*3/uL (2.0-8.3); Neutrophils Percent Auto 70.8 % (45-73); PLT CLUMP 1; Red Blood Count 4.94 X10*6/uL (4.60-5.80); Red Cell Distribution Width 24.7 % (11.0-16.0); SCAN SMEAR FLAG 1; Venous Blood Gas Refer to POC result
[2023-10-19] MEDS: Chlorhexidine Gluc Oral Rinse 15 ML MOUTHWASH BUCCAL ×3 (07:34→22:08)
[2023-10-19] MEDS: 0.9 % Sodium Chloride Flush 10 ML SYRINGE IVFLUSH ×3 (07:35→22:15)
[2023-10-19 07:39] LABS: OBS Int Ctl Valid YES; OBS1 NEGATIVE (NEGATIVE)
[2023-10-19] MEDS: Furosemide 200 MG in 0.9 % Sodium Chloride 80 ML IVCONT (07:52)
[2023-10-19 07:54] LABS: Vancomycin Random 14.3 mcg/mL (15-20)
[2023-10-19 07:56] LABS: Anion Gap 15 (12-20); Blood Urea Nitrogen 54 mg/dL (9-16); Calcium 9.4 mg/dL (8.4-10.2); Carbon Dioxide 17 mmol/L (22-29); Chloride 116 mmol/L (96-108); Creatinine Clr Calc Pharmacy 46.9; Estimated Glomerular Filt Rate 47; Glucose Random 148 mg/dL (60-115); Potassium 3.8 mmol/L (3.3-5.1); Sodium 144 mmol/L (135-145)
[2023-10-19] MEDS: Albuterol/Iprat 2.5/0.5MG 3 ML AMPUL.NEB INHALE ×4 (07:56→19:48)
[2023-10-19] MEDS: Nystatin Powder 15 GM BOTTLE 1 APPL TOPICAL ×2 (07:58→22:05)
[2023-10-19 08:13] LABS: Platelet Count 206 X10*3/uL (160-400)
[2023-10-19 08:16] LABS: SLIDE REVIEW VERIFIED
[2023-10-19] MEDS: vancomycin HCL 750 MG in 0.9 % Sodium Chloride 250 ML 265 MG IV (08:29)
[2023-10-19] MEDS: Acetaminophen Oral Liquid 650 MG/20.3 ML SOLUTION 975 MG PO ×2 (08:37→20:01)
[2023-10-19 11:16] LABS: Glucose, Whole Blood 129 mg/dL (60-115)
--- NOTE | 2023-10-19 12:36 | MHC.CM.PN ---
Pt continues care in ICU: on vent and Precedex and Lasix gtt: received 2 units of PRBC's last evening. Per MD, family is still considering peg, trach and transfer to LTACH. No definite plans have been made or decisions reached. CM to follow - referral to LTACH pended at this time
[2023-10-19 17:35] LABS: Glucose, Whole Blood 197 mg/dL (60-115)
[2023-10-19] MEDS: Norepinephrine Bitartrate/D5W 8 MG/250 ML PLAST..BAG 4.44 MG IV (19:42)
[2023-10-19] MEDS: propofoL 1,000 MG/100 ML VIAL 8 MG IVCONT (19:53)
[2023-10-19 23:50] LABS: Glucose, Whole Blood 225 mg/dL (60-115)
[2023-10-20] VITALS (34 sets, daily range): BP systolic 88–132; BP diastolic 53–86; PULSE 72–107; RESP 20–42; TEMP 34.9–38.7; O2SAT 91–96
[2023-10-20] MEDS: propofoL 1,000 MG/100 ML VIAL 16.01 MG IVCONT ×5 (00:56→22:44)
[2023-10-20] MEDS: dexmedeTOMIDidine HCL/NS 400 MCG/100 ML INFUS..BTL 24.15 MCG IVCONT ×3 (03:27→11:34)
[2023-10-20] MEDS: metroNIDAZOLE/NS 500 MG/100 ML PIGGYBACK 100 MG IV ×3 (03:37→19:57)
[2023-10-20 04:54] LABS: VBG Base Excess -1.7 mmol/L; VBG HCO3 21 mmol/L (22-26); VBG pCO2 29 mmHg; VBG pH 7.45 (7.32-7.43); VBG pO2 38 mmHg
[2023-10-20 05:00] LABS: MANUAL DIFF FLAG NO
[2023-10-20 05:01] LABS: Basophils Percent Auto 0.3 % (0-2); Eosinophils Absolute Auto 0.2 X10*3/uL (0.0-0.4); Eosinophils Percent Auto 2.4 % (0-4); Hematocrit 28.9 % (42.0-52.0); Hemoglobin 9.8 g/dl (14.0-18.0); Imm Gran Abs Auto 0.07 X10*3/uL (0.00-0.03); Imm Gran Pct Auto 0.8 % (0.0-0.4); Lymphocytes Absolute Auto 0.9 X10*3/uL (1.2-4.9); Lymphocytes Percent Auto 10.4 % (20-40); Mean Corpuscular HGB Conc 33.9 g/dl (31.0-36.0); Mean Corpuscular Hemoglobin 23.5 pg (27.0-33.0); Mean Corpuscular Volume 69.3 fL (80.0-98.0); Mean Platelet Volume 10.5 fL (9.4-12.4); Monocytes Absolute Auto 0.7 X10*3/uL (0.1-1.2); Monocytes Percent Auto 8.2 % (2-11); NRBC Pct Auto 0.2 /100WBC (0.0-0.2); Neutrophils Absolute Auto 6.8 x10*3/uL (2.0-8.3); Neutrophils Percent Auto 77.9 % (45-73); Platelet Count 279 X10*3/uL (160-400); Red Blood Count 4.17 X10*6/uL (4.60-5.80); Red Cell Distribution Width 22.5 % (11.0-16.0); White Blood Count 8.7 X10*3/uL (4.8-10.8)
[2023-10-20 05:11] LABS: Venous Blood Gas Refer to POC result
[2023-10-20 05:22] LABS: Anion Gap 16 (12-20); Blood Urea Nitrogen 47 mg/dL (9-16); Calcium 9.7 mg/dL (8.4-10.2); Carbon Dioxide 21 mmol/L (22-29); Chloride 113 mmol/L (96-108); Creatinine Clr Calc Pharmacy 43.7; Estimated Glomerular Filt Rate 43; Glucose Random 86 mg/dL (60-115); Magnesium 1.7 mg/dL (1.6-2.6); Phosphorus 3.8 mg/dL (2.7-4.5); Potassium 3.5 mmol/L (3.3-5.1); Sodium 146 mmol/L (135-145)
[2023-10-20] MEDS: Piperacillin Sodium/Tazobactam 2.25 GM in 0.9 % Sodium Chloride 50 ML IV ×4 (05:30→22:33)
[2023-10-20] MEDS: Pantoprazole Sodium 40 MG/10 ML VIAL IVPUSH (05:30)
[2023-10-20 06:06] LABS: Glucose, Whole Blood 115 mg/dL (60-115)
[2023-10-20] MEDS: Nystatin Powder 15 GM BOTTLE 1 APPL TOPICAL ×2 (07:31→19:56)
[2023-10-20] MEDS: 0.9 % Sodium Chloride Flush 10 ML SYRINGE IVFLUSH ×2 (07:31→16:29)
[2023-10-20] MEDS: Chlorhexidine Gluc Oral Rinse 15 ML MOUTHWASH BUCCAL ×3 (07:31→19:56)
--- NOTE | 2023-10-20 07:55 | P.PNCC_ITS ---
Subjective Subjective Date of Service: 10/20/23 Interval History: no significant overnight events Critical Care Time (minutes): 90 Physical Exam 2 Vital Signs: Vital Signs: Last Vital Signs Temp 101.3 F H 10/20/23 07:00 Pulse 83 10/20/23 07:00 Resp 30 H 10/20/23 07:00 BP 120/81 10/20/23 07:00 Pulse Ox 93 10/20/23 07:00 O2 Del Method Mechanical Ventil ation 10/20/23 07:00 O2 Flow Rate 50 10/14/23 10:00 FiO2 35 10/20/23 07:27 BMI result Body Mass Index 21.7 Const: Other: intubated, minimally sedated; grimacing to noxious stimulus General: no acute distress HEENT: Head: Yes normal to inspection, Yes normocephalic and Yes atraumatic Eyes: General: appearance normal, both eyes and all related structures Neck: Neck: Yes normal visual inspection, Yes full ROM and Yes supple Chest: Chest palpation & inspection: normal inspection of the chest Resp: Other: some appreciable rhonchi; no appreciable rales, wheezing Effort & Inspection: normal respiratory effort Cardio: Rate: regular rate Rhythm: regular rhythm GI: Inspection: Yes normal to inspection, No Abdominal wall edema and No distended Palpation (GI): Soft to palpation, not firm, nontender, no guarding and not rigid Skin: General skin exam: no rashes or lesions noted Neuro: General: tone normal and no focal motor deficits Extrem: General: Yes normal to inspection, Yes capillary refill normal and Yes no clubbing, cyanosis or edema Psych: Other: intermittent anxiety with sedation wean Objective Data Labs 10/20/23 04:48 10/20/23 04:48 Labs: Laboratory Results - last 24 hr 10/18/23 10/19/23 10/19/23 09:40 07:15 11:08 WBC 9.0 RBC 4.94 D Hgb 11.9 L D Hct 36.0 L D MCV 72.9 L D MCH 24.1 L MCHC 33.1 RDW 24.7 H Plt Count 206 D MPV Immature Gran % (Auto) 1.6 H Neut % (Auto) 70.8 Lymph % (Auto) 17.4 L [place] % (Auto) 7.5 Eos % (Auto) 2.1 Baso % (Auto) 0.6 Lymph # (Auto) 1.6 [place] # (Auto) 0.7 Eos # (Auto) 0.2 Baso # (Auto) 0.1 Abs Immat Gran (auto) 0.14 H Absolute Neuts (auto) 6.4 Absolute Nucleated RBC 0.030 H Nucleated RBC % (auto) 0.3 H Smear Tech's Comments VERIFIED VBG pH VBG pCO2 VBG pO2 VBG HCO3 VBG O2 Saturation VBG Base Excess Sodium 144 Potassium 3.8 Chloride 116 H Carbon Dioxide 17 L Anion Gap 15 BUN 54 H Creatinine 1.52 H Estim Creat Clear Calc 46.9 Estimated GFR 47 POC Glucose 129 H Random Glucose 148 H Calcium 9.4 Phosphorus Magnesium Blood Type O Positive Antibody Screen POSITIVE Antibody Identification Anti-M JENNIFER, Polyspecific NEGATIVE Positive JENNIFER Work-up TNP Crossmatch ([facility]) See Detail 10/19/23 10/19/23 10/20/23 17:27 23:44 04:48 WBC 8.7 RBC 4.17 L Hgb 9.8 L Hct 28.9 L MCV 69.3 L MCH 23.5 L MCHC 33.9 RDW 22.5 H Plt Count 279 D MPV 10.5 Immature Gran % (Auto) 0.8 H Neut % (Auto) 77.9 H Lymph % (Auto) 10.4 L [place] % (Auto) 8.2 Eos % (Auto) 2.4 Baso % (Auto) 0.3 Lymph # (Auto) 0.9 L [place] # (Auto) 0.7 Eos # (Auto) 0.2 Baso # (Auto) 0.0 Abs Immat Gran (auto) 0.07 H Absolute Neuts (auto) 6.8 Absolute Nucleated RBC 0.020 H Nucleated RBC % (auto) 0.2 Smear Tech's Comments VBG pH 7.45 H VBG pCO2 29 VBG pO2 38 VBG HCO3 21 L VBG O2 Saturation 56.0 VBG Base Excess -1.7 Sodium 146 H Potassium 3.5 Chloride 113 H Carbon Dioxide 21 L Anion Gap 16 BUN 47 H Creatinine 1.63 H Estim Creat Clear Calc 43.7 Estimated GFR 43 POC Glucose 197 H 225 H Random Glucose 86 Calcium 9.7 Phosphorus 3.8 Magnesium 1.7 Blood Type Antibody Screen Antibody Identification JENNIFER, Polyspecific Positive JENNIFER Work-up Crossmatch ([facility]) 10/20/23 06:02 WBC RBC Hgb Hct MCV MCH MCHC RDW Plt Count MPV Immature Gran % (Auto) Neut % (Auto) Lymph % (Auto) [place] % (Auto) Eos % (Auto) Baso % (Auto) Lymph # (Auto) [place] # (Auto) Eos # (Auto) Baso # (Auto) Abs Immat Gran (auto) Absolute Neuts (auto) Absolute Nucleated RBC Nucleated RBC % (auto) Smear Tech's Comments VBG pH VBG pCO2 VBG pO2 VBG HCO3 VBG O2 Saturation VBG Base Excess Sodium Potassium Chloride Carbon Dioxide Anion Gap BUN Creatinine Estim Creat Clear Calc Estimated GFR POC Glucose 115 Random Glucose Calcium Phosphorus Magnesium Blood Type Antibody Screen Antibody Identification JENNIFER, Polyspecific Positive JENNIFER Work-up Crossmatch ([facility]) Microbiology Microbiology Results: Microbiology 10/02/23 06:40 Sputum - Suctioned Direct Acid Fast Bacilli Smear - Final 10/02/23 03:11 Blood - Central Line Blood Culture - Final No growth after 5 days. 10/02/23 03:11 Blood - Central Line Blood Culture - Final Coag negative Staphylococcus 10/02/23 06:40 Sputum - Suctioned Gram Stain - Final 10/02/23 06:40 Sputum - Suctioned Sputum Culture - Final 10/02/23 06:40 Urine Catheterized - Miguel Catheter Urine Culture - Final No growth. Progress Note: A&P Assessment and plan (1) Acute hypoxic respiratory failure: Status: Acute (2) AMBER (acute kidney injury): Status: Acute (3) COPD (chronic obstructive pulmonary disease): Status: Acute (4) HIV (human immunodeficiency virus infection): Status: Acute (5) Hepatitis C: Status: Acute Plan Patient is a 62 Y M with HIV, HCV, COPD, presenting initially on 10/02 to ED w/ dyspnea, found to have influenza, c/f bacterial super-infection, in acute hypoxic respiratory failure, intubated; ICU course c/b septic shock, acute renal insufficiency, ileus; of not, patient extubated 10/12, re-intubated 10/13 d/t aspiration, c/b acute hypoxic respiratory failure N: intubated, sedated w/ dexmedetomidine, propofol gtt, wean as tolerated CV: shock, likely septic shock; norepinephrine gtts, wean as tolerated R: acute hypoxic respiratory failure, d/t influenza, c/f bacterial super- infection, intubated, extubated, re-intubated, wean ventilator as tolerated; ongoing tracheostomy consideration GI: possible GI bleed, though no appreciable hematemesis, melena; tube feeds : AMBER, improving; to monitor renal indices H: anemia, unclear etiology; transfuse as needed; to continue to hold chemical DVT prophylaxis ID: c/f septic shock d/t pneumonia; empiric vancomycin, zosyn, metronidazole; HIV E: hyperglycemia, to continue to monitor P: no acute issues Quality Stroke Does the patient have a stroke diagnosis?: No VTE Prior VTE?: No VTE Risk Level:: Medical - moderate - high VTE Device Contraindication: N/A - Device Ordered VTE Drug Contraindication: Treatment Not Tolerated
[2023-10-20 07:56] LABS: Vancomycin Random 16.1 mcg/mL (15-20)
--- NOTE | 2023-10-20 08:09 | HE.PHANOTE ---
Re: Vanco Based on renal function, and trough returning at 16.1, continue current dose at 750mg Q24H. Next trough scheduled at 10/21 07:00.
[2023-10-20] MEDS: Albuterol/Iprat 2.5/0.5MG 3 ML AMPUL.NEB INHALE ×4 (08:38→19:32)
[2023-10-20] MEDS: vancomycin HCL 750 MG in 0.9 % Sodium Chloride 250 ML 265 MG IV (09:08)
--- NOTE | 2023-10-20 09:45 | MHC.CLN ---
F/U DISCUSSED AT ROUNDS WITH REVIEWED LABS PT TOLERATING NEPRO AT MAX GOAL RATE 30ML/HR WITH 240ML FWF Q 6 HRS PROVIDES 1296KCALS (1788KCALS WITH SEDATION; 27KCALS/KG), 58G PROTEIN (.87G/KG), 1483ML TOTAL WATER FROM FORMULA AND FLUSHES (22ML/KG) RECOMMEND INCREASING NEPRO TO 35ML/HR WITH 300ML Q 4 HRS TO PROVIDE 1512KCALS (1935KCALS WITH SEDATION; 29KCALS/KG), 68G PROTEIN (1.0G/KG), 2410ML TOTAL FREE WATER FROM FORMULA AND FLUSHES (36ML/KG) CONTINUE TO MONITOR TOLERANCE, RESIDUALS, AND LYTES
[2023-10-20 12:36] LABS: Glucose, Whole Blood 237 mg/dL (60-115)
[2023-10-20] MEDS: Insulin Lispro 100 UNIT/ML 3 ML VIAL SUBCUT ×2 (12:44→17:49)
--- NOTE | 2023-10-20 12:58 | P.CONGS_ITS ---
History of Present Illness Consult details Consult date: 10/20/23 Requesting physician: Jesenia Malloy Narrative: Patient is a 62 year old male with HIV, HCV, COPD who presented initially on 10/02 to ED with complaints of dyspnea, found to have influenza and superimposed bacterial superinfection requiring intubation, pressor, and ventilatory support. He improved and was extubated 10/13/2023 and aspirated on 10/14/2023 resulting in refractory hypoxia requiring emergent intubation and ventilatory support. He cannot be weaned off the ventilator. Surgery was therefore consulted for trach/PEG. Patient has prior history of tracheostomy, G tube performed at [facility]. Review of Systems 2 Review of Systems: Yes Unobtainable due to mental condition PMFSH Past Medical History Medical History Pneumonia TERRY (obstructive sleep apnea) Pulmonary nodules Hepatitis C HIV disease COPD (chronic obstructive pulmonary disease) Family History Family history: reviewed and not pertinent Social History Social History (System 10/19/23 @ 12:00 by Romulo Cortes) Household Members: Unknown / Unable to assess Housing: Unknown / Unable to assess Patient Tobacco Use Status: Tobacco use Unknown Tobacco use type: Cigarette Cigarette Packs Per Day: 1 Cigarettes Per Day: 4 Years Smoked: 30 Years Substance Use Type: Unknown Meds Allergies Allergy/AdvReac Type Severity Reaction Status Date / Time No Known Allergies Allergy Verified 10/19/23 12:00 [No Known Allergies*] Active Medications: Current Medications Acetaminophen (Acetaminophen Oral Liquid 650 Mg/20.3 Ml Solution) 975 mg PO Q8H PRN PRN Reason: Fever >100.4 Last Admin: 10/19/23 20:01 Dose: 975 mg Albuterol/Ipratropium (Albuterol/Iprat 2.5/0.5mg 3 Ml Ampul.Neb) 3 ml INHALE RQ4H WHILE AWAKE [facility] Last Admin: 10/20/23 11:40 Dose: 3 ml Albuterol/Ipratropium (Albuterol/Iprat 2.5/0.5mg 3 Ml Ampul.Neb) 3 ml INHALE RQ4H WHILE AWAKE PRN PRN Reason: Wheezing Chlorhexidine Gluconate (Chlorhexidine Gluc Oral Rinse 15 Ml Mouthwash) 15 ml BUCCAL TID [facility] Last Admin: 10/20/23 07:31 Dose: 15 ml Dextrose (Dextrose 50 % 25 Gm/50 Ml Syringe) 25 gm IVPUSH Q15M PRN; Protocol PRN Reason: per Hypoglycemia Standing Ord. Glucose (Glucose Gel 15 Gm Gel..Gram.) 15 gm PO Q15M PRN; Protocol PRN Reason: per Hypoglycemia Standing Ord. Heparin Sodium (Porcine) (Heparin Sodium,Porcine 5,000 Unit/Ml Vial) 5,000 unit SUBCUT Q12H [facility] Last Admin: 10/18/23 03:08 Dose: 5,000 unit Hydromorphone HCl (Hydromorphone Hcl 0.5 Mg/0.5 Ml Syringe) 0.5 mg IVPUSH Q2H PRN; Protocol PRN Reason: Pain, Moderate(Pain Scale 4-6) Last Admin: 10/19/23 06:42 Dose: 0.5 mg Norepinephrine Bitartrate (Levophed) 8 mg in 250 mls @ 0 mls/hr IV .Q0M SUSANA; Protocol Last Titration: 10/20/23 00:25 Dose: 0.06 mcg/kg/min, 8.89 mls/hr Piperacillin Sod/Tazobactam (Sod 2.25 gm/ Sodium Chloride) 50 mls @ 100 mls/hr IV Q6H [facility] Last Infusion: 10/20/23 12:11 Dose: Infused Metronidazole (Flagyl) 500 mg in 100 mls @ 100 mls/hr IV Q8H [facility] Last Admin: 10/20/23 12:06 Dose: 100 mls/hr Dexmedetomidine HCl (Precedex) 400 mcg in 100 mls @ 0 mls/hr IVCONT .Q0M SUSANA; Protocol Last Admin: 10/20/23 11:34 Dose: 1.5 mcg/kg/hr, 24.15 mls/hr Propofol (Diprivan) 1,000 mg in 100 mls @ 0 mls/hr IVCONT .Q0M [facility]; Protocol Last Admin: 10/20/23 11:41 Dose: 40 mcg/kg/min, 16.01 mls/hr Vancomycin HCl 750 mg/ Sodium (Chloride) 265 mls @ 265 mls/hr IV Q24H [facility] Last Infusion: 10/20/23 10:15 Dose: Infused Insulin Human Lispro (Insulin Lispro 100 Unit/Ml 3 Ml Vial) 0 unit SUBCUT Q6H SUSANA; Protocol Last Admin: 10/20/23 12:44 Dose: 4 unit Nystatin (Nystatin Powder 15 Gm Bottle) 1 appl TOPICAL BID SUSANA; Protocol Last Admin: 10/20/23 07:31 Dose: 1 appl Ondansetron HCl (Ondansetron Hcl 4 Mg/2 Ml Vial) 4 mg IVPUSH Q4H PRN PRN Reason: Nausea and Vomiting Last Admin: 10/03/23 08:40 Dose: 4 mg Pharmacy Consult (Consult Rx Vancomycin Dosing) 1 each MISCELLANE DAILY PRN PRN Reason: Consult order Sodium Chloride (0.9 % Sodium Chloride Flush 10 Ml Syringe) 10 ml IVFLUSH Q8H SUSANA Last Admin: 10/20/23 07:31 Dose: 10 ml Home Medications Medication Instructions Recorded Confirmed Last Taken Type bictegravir 50 mg-emtricitabine 1 tab PO DAILY 04/24/22 10/02/23 Unknown History 200 mg-tenofovir alafenam 25 mg tablet (Biktarvy) montelukast 10 mg tablet 10 mg PO BEDTIME 04/24/22 10/02/23 Unknown History nebulizers 08/14/22 Unknown History dapagliflozin propanediol 10 mg 10 mg PO DAILY 10/30/22 10/02/23 Unknown History tablet (Farxiga) furosemide 40 mg tablet 40 mg PO DAILY 10/30/22 10/02/23 Unknown History spironolactone 25 mg tablet 12.5 mg PO DAILY 11/13/22 10/02/23 Unknown History atorvastatin 40 mg tablet 40 mg PO BEDTIME 04/30/23 10/02/23 Unknown History sacubitril 49 mg-valsartan 51 mg 1 tab PO BID 04/30/23 10/02/23 Unknown History tablet (Entresto) cholecalciferol (vitamin D3) 1,250 1,250 mcg PO QWEEK 10/02/23 10/02/23 Unknown History mcg (50,000 unit) capsule Physical Exam 2 Vital Signs: Vital Signs: Last Vital Signs Temp 101.7 F H 10/20/23 12:00 Pulse 101 H 10/20/23 12:00 Resp 27 H 10/20/23 12:00 BP 108/69 10/20/23 12:00 Pulse Ox 93 10/20/23 12:00 O2 Del Method Mechanical Ventil ation 10/20/23 12:00 O2 Flow Rate 50 10/14/23 10:00 FiO2 35 10/20/23 12:00 BMI result Body Mass Index 21.7 Neck: Neck: Yes trachea midline Neck images: 1. prior tracheostomy scar Resp: Other: on vent Cardio: Rate: tachycardic GI: Inspection: Yes distended and Yes scar (RUQ scar from prior G tube ) P alpation (GI): Soft to palpation Percussion: Yes tympanic to percussion Abdomen image: 1. prior G tube scar Results Labs 10/20/23 04:48 10/20/23 04:48 Labs: Abnormal lab results 10/18/23 10/19/23 10/19/23 Range/Units 09:40 17:27 23:44 RBC (4.60-5.80) X10*6/uL Hgb (14.0-18.0) g/dl Hct (42.0-52.0) % MCV (80.0-98.0) fL MCH (27.0-33.0) pg RDW (11.0-16.0) % Immature Gran % (Auto) (0.0-0.4) % Neut % (Auto) (45-73) % Lymph % (Auto) (20-40) % Lymph # (Auto) (1.2-4.9) X10*3/uL Abs Immat Gran (auto) (0.00-0.03) X10*3/uL Absolute Nucleated RBC (0.0-0.012) X10*3/uL VBG pH (7.32-7.43) VBG HCO3 (22-26) mmol/L Sodium (135-145) mmol/L Chloride (96-108) mmol/L Carbon Dioxide (22-29) mmol/L BUN (9-16) mg/dL Creatinine (0.5-1.4) mg/dL POC Glucose 197 H 225 H (60-115) mg/dL Crossmatch (AHG) See Detail 10/20/23 10/20/23 Range/Units 04:48 12:33 RBC 4.17 L (4.60-5.80) X10*6/uL Hgb 9.8 L (14.0-18.0) g/dl Hct 28.9 L (42.0-52.0) % MCV 69.3 L (80.0-98.0) fL MCH 23.5 L (27.0-33.0) pg RDW 22.5 H (11.0-16.0) % Immature Gran % (Auto) 0.8 H (0.0-0.4) % Neut % (Auto) 77.9 H (45-73) % Lymph % (Auto) 10.4 L (20-40) % Lymph # (Auto) 0.9 L (1.2-4.9) X10*3/uL Abs Immat Gran (auto) 0.07 H (0.00-0.03) X10*3/uL Absolute Nucleated RBC 0.020 H (0.0-0.012) X10*3/uL VBG pH 7.45 H (7.32-7.43) VBG HCO3 21 L (22-26) mmol/L Sodium 146 H (135-145) mmol/L Chloride 113 H (96-108) mmol/L Carbon Dioxide 21 L (22-29) mmol/L BUN 47 H (9-16) mg/dL Creatinine 1.63 H (0.5-1.4) mg/dL POC Glucose 237 H (60-115) mg/dL Crossmatch (AHG) Short CBC 10/20/23 Range/Units 04:48 WBC 8.7 (4.8-10.8) X10*3/uL Hgb 9.8 L (14.0-18.0) g/dl Hct 28.9 L (42.0-52.0) % Plt Count 279 D (160-400) X10*3/uL BMP 10/20/23 04:48 Sodium 146 H Potassium 3.5 Chloride 113 H Carbon Dioxide 21 L BUN 47 H Creatinine 1.63 H Calcium 9.7 Urine 10/02/23 10/14/23 Range/Units 03:44 09:53 Urine Color Yellow Yellow Urine Appearance Cloudy Turbid Urine pH 6.5 5.5 (5.0-9.0) Ur Specific [place] 1.020 1.020 (1.005-1.025) Urine Protein 300 (3+) H 100 (2+) H (Neg-Trace) mg/dL Urine Glucose (UA) 500 H Negative (Negative) mg/dL All other labs normal. Imaging Abdomen CT scan report/results: report reviewed and image reviewed Assessment and Plan (1) Acute hypoxic respiratory failure: Status: Acute Plan Patient is a 62 year old male with HIV, HCV, COPD who presented admitted 10/02 to ED for influenza and superimposed bacterial superinfection requiring intubation, pressor, and ventilatory support subsequently extubated and aspirated requiring reintubation 10/14/23 and is now unable to be weaned off ventilator. He has prior history of tracheostomy and G tube. He had developed ileus due to acute illness during ICU course and was previous evaluated by general surgery. His abdomen is significantly less distended than initial exam. CT abd/pelvis reviewed. Will add patient on for tracheostomy, PEG tube placement tomorrow. Hold tube feeds at midnight. Procedures Date of Service Date of Service: 10/20/23
--- NOTE | 2023-10-20 14:06 | PM.PNNEP ---
Subjective Subjective Date of Service: 10/20/23 Interval history: No significant overnight events Physical Exam Vital Signs: Vital Signs: Last Vital Signs Temp 101.0 F H 10/20/23 13:00 Pulse 92 10/20/23 13:00 Resp 27 H 10/20/23 13:00 BP 120/78 10/20/23 13:00 Pulse Ox 95 10/20/23 13:00 O2 Del Method Mechanical Ventil ation 10/20/23 13:00 O2 Flow Rate 50 10/14/23 10:00 FiO2 35 10/20/23 13:00 BMI result Body Mass Index 21.7 Const: General: no acute distress Resp: Auscultation: diminished lung sounds Cardio: Rate: regular rate GI: Palpation (GI): Soft to palpation Neuro: Other: Sedated Objective Data Labs 10/20/23 04:48 10/20/23 04:48 Labs: Laboratory Results - last 24 hr 10/18/23 10/19/23 10/19/23 09:40 17:27 23:44 WBC RBC Hgb Hct MCV MCH MCHC RDW Plt Count MPV Immature Gran % (Auto) Neut % (Auto) Lymph % (Auto) [place] % (Auto) Eos % (Auto) Baso % (Auto) Lymph # (Auto) [place] # (Auto) Eos # (Auto) Baso # (Auto) Abs Immat Gran (auto) Absolute Neuts (auto) Absolute Nucleated RBC Nucleated RBC % (auto) VBG pH VBG pCO2 VBG pO2 VBG HCO3 VBG O2 Saturation VBG Base Excess Sodium Potassium Chloride Carbon Dioxide Anion Gap BUN Creatinine Estim Creat Clear Calc Estimated GFR POC Glucose 197 H 225 H Random Glucose Calcium Phosphorus Magnesium Random Vancomycin Blood Type O Positive Antibody Screen POSITIVE Antibody Identification Anti-M JENNIFER, Polyspecific NEGATIVE Positive JENNIFER Work-up TNP Crossmatch (AHG) See Detail 10/20/23 10/20/23 10/20/23 04:48 06:02 07:33 WBC 8.7 RBC 4.17 L Hgb 9.8 L Hct 28.9 L MCV 69.3 L MCH 23.5 L MCHC 33.9 RDW 22.5 H Plt Count 279 D MPV 10.5 Immature Gran % (Auto) 0.8 H Neut % (Auto) 77.9 H Lymph % (Auto) 10.4 L [place] % (Auto) 8.2 Eos % (Auto) 2.4 Baso % (Auto) 0.3 Lymph # (Auto) 0.9 L [place] # (Auto) 0.7 Eos # (Auto) 0.2 Baso # (Auto) 0.0 Abs Immat Gran (auto) 0.07 H Absolute Neuts (auto) 6.8 Absolute Nucleated RBC 0.020 H Nucleated RBC % (auto) 0.2 VBG pH 7.45 H VBG pCO2 29 VBG pO2 38 VBG HCO3 21 L VBG O2 Saturation 56.0 VBG Base Excess -1.7 Sodium 146 H Potassium 3.5 Chloride 113 H Carbon Dioxide 21 L Anion Gap 16 BUN 47 H Creatinine 1.63 H Estim Creat Clear Calc 43.7 Estimated GFR 43 POC Glucose 115 Random Glucose 86 Calcium 9.7 Phosphorus 3.8 Magnesium 1.7 Random Vancomycin 16.1 Blood Type Antibody Screen Antibody Identification JENNIFER, Polyspecific Positive JENNIFER Work-up Crossmatch ([facility]) 10/20/23 12:33 WBC RBC Hgb Hct MCV MCH MCHC RDW Plt Count MPV Immature Gran % (Auto) Neut % (Auto) Lymph % (Auto) [place] % (Auto) Eos % (Auto) Baso % (Auto) Lymph # (Auto) [place] # (Auto) Eos # (Auto) Baso # (Auto) Abs Immat Gran (auto) Absolute Neuts (auto) Absolute Nucleated RBC Nucleated RBC % (auto) VBG pH VBG pCO2 VBG pO2 VBG HCO3 VBG O2 Saturation VBG Base Excess Sodium Potassium Chloride Carbon Dioxide Anion Gap BUN Creatinine Estim Creat Clear Calc Estimated GFR POC Glucose 237 H Random Glucose Calcium Phosphorus Magnesium Random Vancomycin Blood Type Antibody Screen Antibody Identification JENNIFER, Polyspecific Positive JENNIFER Work-up Crossmatch ([facility]) Microbiology Microbiology Results: Microbiology 10/02/23 06:40 Sputum - Suctioned Direct Acid Fast Bacilli Smear - Final 10/02/23 03:11 Blood - Central Line Blood Culture - Final No growth after 5 days. 10/02/23 03:11 Blood - Central Line Blood Culture - Final Coag negative Staphylococcus 10/02/23 06:40 Sputum - Suctioned Gram Stain - Final 10/02/23 06:40 Sputum - Suctioned Sputum Culture - Final 10/02/23 06:40 Urine Catheterized - Miguel Catheter Urine Culture - Final No growth. Procedures Date of Service Date of Service: 10/20/23 Assessment & Plan Assessment and plan (1) AMBER (acute kidney injury): Status: Acute Plan Acute Kidney Injury due to tubular injury UO good; Serum creatinine better/stable Diuretics put on hold; NO indication for HD C/W rest of current supportive care Labs AM; Shall closely follow up Progress Note: Quality Stroke Does the patient have a stroke diagnosis?: No
--- NOTE | 2023-10-20 15:12 | PM.EVENT ---
Event Note Date of Service: 10/21/23 Event Note: pt referred for PEG placement H and P reviewed he had a PEG tube placed in 2006 as well after respiratory failure with pneumonia this old PEG was removed a few months after that pt now with repiratory failure, unable to be weaned off vent explained procedure to son Earl Davidson reviewed risks of bleeding, infections, bowel injury, tube dislodgement Earl DAVIDSON has given consent over the phone Time Spent With Patient Time: Total time managing care of this patient today ____ minutes.
--- NOTE | 2023-10-20 15:37 | MHC.CM.PN ---
EMR REVIEWED AND PER MD ROUNDS, PT WILL GET TRACH/PEG PLACED TENTATIVELY 10/20 PER FAMILY DECISION. CM MET WITH SON AT BEDSIDE TO OFFER SUPPORT. REFERRAL SENT TO [facility] IN [place]IPATION OF NEW TRACH. SON AWARE OF PLAN. CM WILL CONTINUE TO FOLLOW FOR ANY CHANGE IN DC NEEDS/PLAN
[2023-10-20 17:45] LABS: Glucose, Whole Blood 205 mg/dL (60-115)
[2023-10-20] MEDS: dexmedeTOMIDidine HCL/NS 400 MCG/100 ML INFUS..BTL 16.1 MCG IVCONT ×2 (17:50→22:32)
[2023-10-20] MEDS: Norepinephrine Bitartrate/D5W 8 MG/250 ML PLAST..BAG 8.89 MG IV (22:27)
[2023-10-20 23:58] LABS: Glucose, Whole Blood 236 mg/dL (60-115)
[2023-10-21] VITALS (36 sets, daily range): BP systolic 89–134; BP diastolic 55–94; PULSE 72–103; RESP 17–36; TEMP 34.5–39; O2SAT 93–100; BMI 21.7
[2023-10-21] MEDS: 0.9 % Sodium Chloride Flush 10 ML SYRINGE IVFLUSH ×4 (00:13→23:38)
[2023-10-21] MEDS: Insulin Lispro 100 UNIT/ML 3 ML VIAL SUBCUT (00:13)
[2023-10-21] MEDS: dexmedeTOMIDidine HCL/NS 400 MCG/100 ML INFUS..BTL 19.32 MCG IVCONT ×5 (02:40→22:46)
[2023-10-21] MEDS: propofoL 1,000 MG/100 ML VIAL 16.01 MG IVCONT ×5 (03:25→23:37)
[2023-10-21] MEDS: metroNIDAZOLE/NS 500 MG/100 ML PIGGYBACK 100 MG IV ×3 (03:30→19:39)
[2023-10-21 05:31] LABS: VBG Base Excess -4.3 mmol/L; VBG HCO3 19 mmol/L (22-26); VBG pCO2 31 mmHg; VBG pH 7.39 (7.32-7.43); VBG pO2 43 mmHg
[2023-10-21 05:35] LABS: MANUAL DIFF FLAG NO
[2023-10-21 05:38] LABS: Basophils Percent Auto 0.4 % (0-2); Eosinophils Absolute Auto 0.2 X10*3/uL (0.0-0.4); Eosinophils Percent Auto 2.3 % (0-4); Hematocrit 28.7 % (42.0-52.0); Hemoglobin 9.6 g/dl (14.0-18.0); Imm Gran Abs Auto 0.08 X10*3/uL (0.00-0.03); Lymphocytes Absolute Auto 0.7 X10*3/uL (1.2-4.9); Lymphocytes Percent Auto 8.9 % (20-40); Mean Corpuscular HGB Conc 33.4 g/dl (31.0-36.0); Mean Corpuscular Hemoglobin 23.3 pg (27.0-33.0); Mean Corpuscular Volume 69.7 fL (80.0-98.0); Mean Platelet Volume 9.9 fL (9.4-12.4); Monocytes Absolute Auto 0.6 X10*3/uL (0.1-1.2); Monocytes Percent Auto 8.1 % (2-11); NRBC Pct Auto 0.3 /100WBC (0.0-0.2); Neutrophils Absolute Auto 6.2 x10*3/uL (2.0-8.3); Neutrophils Percent Auto 79.3 % (45-73); Platelet Count 251 X10*3/uL (160-400); Red Blood Count 4.12 X10*6/uL (4.60-5.80); Red Cell Distribution Width 22.4 % (11.0-16.0); White Blood Count 7.8 X10*3/uL (4.8-10.8)
[2023-10-21 05:45] LABS: Glucose, Whole Blood 135 mg/dL (60-115)
[2023-10-21] MEDS: Piperacillin Sodium/Tazobactam 2.25 GM in 0.9 % Sodium Chloride 50 ML IV ×4 (05:45→22:51)
[2023-10-21 05:50] LABS: Anion Gap 14 (12-20); Blood Urea Nitrogen 39 mg/dL (9-16); Calcium 9.1 mg/dL (8.4-10.2); Carbon Dioxide 19 mmol/L (22-29); Chloride 111 mmol/L (96-108); Estimated Glomerular Filt Rate 58; Glucose Random 140 mg/dL (60-115); Potassium 3.9 mmol/L (3.3-5.1); Sodium 140 mmol/L (135-145)
--- NOTE | 2023-10-21 07:11 | P.PNCC_ITS ---
Subjective Subjective Date of Service: 10/21/23 Interval History: no significant overnight events Critical Care Time (minutes): 90 Physical Exam 2 Vital Signs: Vital Signs: Last Vital Signs Temp 102.2 F H 10/21/23 06:00 Pulse 75 10/21/23 06:00 Resp 26 H 10/21/23 06:00 BP 94/62 10/21/23 06:00 Pulse Ox 96 10/21/23 06:00 O2 Del Method Mechanical Ventil ation 10/21/23 06:00 O2 Flow Rate 50 10/14/23 10:00 FiO2 30 10/21/23 06:00 BMI result Body Mass Index 21.7 Const: Other: intubated, minimally sedated, intermittently answers yes-no questions General: comfortable, no acute distress and well developed HEENT: Head: Yes normal to inspection, Yes normocephalic and Yes atraumatic Eyes: General: appearance normal, both eyes and all related structures Neck: Neck: Yes normal visual inspection, Yes full ROM and Yes supple Chest: Chest palpation & inspection: normal inspection of the chest Resp: Other: no appreciable rales, rhonchi, wheezing Effort & Inspection: normal respiratory effort Cardio: Rate: regular rate Rhythm: regular rhythm GI: Inspection: Yes normal to inspection, No Abdominal wall edema and No distended Palpation (GI): Soft to palpation, not firm, nontender, no guarding and not rigid : Male General Exam: Yes normal external exam Skin: General skin exam: no rashes or lesions noted Neuro: General: tone normal and no focal motor deficits Extrem: General: Yes normal to inspection, Yes capillary refill normal and Yes no clubbing, cyanosis or edema Psych: Other: intermittent anxiety off sedation Objective Data Labs 10/21/23 05:18 10/21/23 05:18 Labs: Laboratory Results - last 24 hr 10/20/23 10/20/23 10/20/23 07:33 12:33 17:40 WBC RBC Hgb Hct MCV MCH MCHC RDW Plt Count MPV Immature Gran % (Auto) Neut % (Auto) Lymph % (Auto) [place] % (Auto) Eos % (Auto) Baso % (Auto) Lymph # (Auto) [place] # (Auto) Eos # (Auto) Baso # (Auto) Abs Immat Gran (auto) Absolute Neuts (auto) Absolute Nucleated RBC Nucleated RBC % (auto) VBG pH VBG pCO2 VBG pO2 VBG HCO3 VBG O2 Saturation VBG Base Excess Sodium Potassium Chloride Carbon Dioxide Anion Gap BUN Creatinine Estim Creat Clear Calc Estimated GFR POC Glucose 237 H 205 H Random Glucose Calcium Random Vancomycin 16.1 10/20/23 10/21/23 10/21/23 23:54 05:18 05:23 WBC 7.8 RBC 4.12 L Hgb 9.6 L Hct 28.7 L MCV 69.7 L MCH 23.3 L MCHC 33.4 RDW 22.4 H Plt Count 251 MPV 9.9 Immature Gran % (Auto) 1.0 H Neut % (Auto) 79.3 H Lymph % (Auto) 8.9 L [place] % (Auto) 8.1 Eos % (Auto) 2.3 Baso % (Auto) 0.4 Lymph # (Auto) 0.7 L [place] # (Auto) 0.6 Eos # (Auto) 0.2 Baso # (Auto) 0.0 Abs Immat Gran (auto) 0.08 H Absolute Neuts (auto) 6.2 Absolute Nucleated RBC 0.020 H Nucleated RBC % (auto) 0.3 H VBG pH 7.39 VBG pCO2 31 VBG pO2 43 VBG HCO3 19 L VBG O2 Saturation 65.0 VBG Base Excess -4.3 Sodium 140 Potassium 3.9 Chloride 111 H Carbon Dioxide 19 L Anion Gap 14 BUN 39 H Creatinine 1.25 Estim Creat Clear Calc 57.0 Estimated GFR 58 POC Glucose 236 H Random Glucose 140 H Calcium 9.1 D Random Vancomycin 10/21/23 05:41 WBC RBC Hgb Hct MCV MCH MCHC RDW Plt Count MPV Immature Gran % (Auto) Neut % (Auto) Lymph % (Auto) [place] % (Auto) Eos % (Auto) Baso % (Auto) Lymph # (Auto) [place] # (Auto) Eos # (Auto) Baso # (Auto) Abs Immat Gran (auto) Absolute Neuts (auto) Absolute Nucleated RBC Nucleated RBC % (auto) VBG pH VBG pCO2 VBG pO2 VBG HCO3 VBG O2 Saturation VBG Base Excess Sodium Potassium Chloride Carbon Dioxide Anion Gap BUN Creatinine Estim Creat Clear Calc Estimated GFR POC Glucose 135 H Random Glucose Calcium Random Vancomycin Microbiology Microbiology Results: Microbiology 10/02/23 06:40 Sputum - Suctioned Direct Acid Fast Bacilli Smear - Final 10/02/23 03:11 Blood - Central Line Blood Culture - Final No growth after 5 days. 10/02/23 03:11 Blood - Central Line Blood Culture - Final Coag negative Staphylococcus 10/02/23 06:40 Sputum - Suctioned Gram Stain - Final 10/02/23 06:40 Sputum - Suctioned Sputum Culture - Final 10/02/23 06:40 Urine Catheterized - Miguel Catheter Urine Culture - Final No growth. Progress Note: A&P Assessment and plan (1) AMBER (acute kidney injury): Status: Acute (2) HIV (human immunodeficiency virus infection): Status: Acute (3) Acute hypoxic respiratory failure: Status: Acute (4) COPD (chronic obstructive pulmonary disease): Status: Acute (5) Hepatitis C: Status: Acute Plan Patient is a 62 Y M with HIV, HCV, COPD, presenting initially on 10/02 to ED w/ dyspnea, found to have influenza, c/f bacterial super-infection, in acute hypoxic respiratory failure, intubated; ICU course c/b septic shock, acute renal insufficiency, ileus; of not, patient extubated 10/12, re-intubated 10/13 d/t aspiration, c/b acute hypoxic respiratory failure N: intubated, sedated w/ dexmedetomidine, propofol gtt, wean as tolerated CV: shock, likely septic shock; norepinephrine gtts, wean as tolerated R: acute hypoxic respiratory failure, d/t influenza, c/f bacterial super- infection, intubated, extubated, re-intubated, wean ventilator as tolerated; plan for trach today GI: possible GI bleed, though no appreciable hematemesis, melena; tube feeds; plan for PEG today : AMBER, improving; to monitor renal indices H: anemia, unclear etiology; transfuse as needed; to continue to hold chemical DVT prophylaxis caleb-operatively ID: c/f septic shock d/t pneumonia; empiric vancomycin, zosyn, metronidazole; HIV E: hyperglycemia, to continue to monitor P: no acute issues Quality Stroke Does the patient have a stroke diagnosis?: No VTE Prior VTE?: No VTE Risk Level:: Medical - moderate - high VTE Device Contraindication: N/A - Device Ordered VTE Drug Contraindication: Treatment Not Tolerated
[2023-10-21] MEDS: Nystatin Powder 15 GM BOTTLE 1 APPL TOPICAL ×2 (07:21→20:07)
[2023-10-21] MEDS: Chlorhexidine Gluc Oral Rinse 15 ML MOUTHWASH BUCCAL ×3 (07:25→20:06)
[2023-10-21] MEDS: Albuterol/Iprat 2.5/0.5MG 3 ML AMPUL.NEB INHALE ×4 (07:37→19:47)
--- NOTE | 2023-10-21 08:29 | HE.PHANOTE ---
RE JAMES Patients level is not due till tomorrow. However patients Scr got better, now at 1.25 from 1.63 yesterday. Dose is showing to be subtherapeutic. Dose increased to 1000 mgQ24H
[2023-10-21] MEDS: vancomycin HCL 1,000 MG in 0.9 % Sodium Chloride 250 ML 270 MG IV (09:14)
--- NOTE | 2023-10-21 11:22 | P.CONAN_ITS ---
HPI - Anesthesia Eval Consult details Narrative: for tracheostomy and PEG Pneumonia, aspiration, COPD Vent settings in ICU: AC 18/420/35%/+5 -> RR 27, Ve 13L, PIP 22, SpO2 96%. [facility] [place] Active Problems Active Problems: All Active Problems (Updated 10/12/23 @ 14:19 by Deonte Castillo MD) CKD (chronic kidney disease) (Acute) Hyperkalemia (Acute) Ileus (Acute) AMBER (acute kidney injury) (Acute) Influenza (Acute) Pneumonia (Acute) HIV (human immunodeficiency virus infection) (Acute) Acute hypoxic respiratory failure (Acute) Myocardial injury (Acute) Respiratory failure (Acute) TERRY (obstructive sleep apnea) (Acute) Pulmonary nodules (Acute) Hepatitis C (Acute) COPD (chronic obstructive pulmonary disease) (Acute) Past Medical History Medical History Pneumonia TERRY (obstructive sleep apnea) Pulmonary nodules Hepatitis C HIV disease COPD (chronic obstructive pulmonary disease) Narrative: ECHO: The left ventricular systolic function is moderately decreased. EF 35- 40%. No obvious valvular pathology seen on this study. RV normal. IVC dilated with > 50% collapse. Family History Family history of problems with anesthesia: No Surgical History History of Problems with Anesthesia: No Social History Social History (System 10/19/23 @ 12:00 by Romulo Cortes) Household Members: Unknown / Unable to assess Housing: Unknown / Unable to assess Patient Tobacco Use Status: Tobacco use Unknown Tobacco use type: Cigarette Cigarette Packs Per Day: 1 Cigarettes Per Day: 4 Years Smoked: 30 Years Substance Use Type: Unknown Meds Allergies Allergy/AdvReac Type Severity Reaction Status Date / Time No Known Allergies Allergy Verified 10/19/23 12:00 [No Known Allergies*] Active Medications: Current Medications Acetaminophen (Acetaminophen Oral Liquid 650 Mg/20.3 Ml Solution) 975 mg PO Q8H PRN PRN Reason: Fever >100.4 Last Admin: 10/19/23 20:01 Dose: 975 mg Albuterol/Ipratropium (Albuterol/Iprat 2.5/0.5mg 3 Ml Ampul.Neb) 3 ml INHALE RQ4H WHILE AWAKE SUSANA Last Admin: 10/21/23 11:13 Dose: 3 ml Albuterol/Ipratropium (Albuterol/Iprat 2.5/0.5mg 3 Ml Ampul.Neb) 3 ml INHALE RQ4H WHILE AWAKE PRN PRN Reason: Wheezing Chlorhexidine Gluconate (Chlorhexidine Gluc Oral Rinse 15 Ml Mouthwash) 15 ml BUCCAL TID [facility] Last Admin: 10/21/23 07:25 Dose: 15 ml Dextrose (Dextrose 50 % 25 Gm/50 Ml Syringe) 25 gm IVPUSH Q15M PRN; Protocol PRN Reason: per Hypoglycemia Standing Ord. Glucose (Glucose Gel 15 Gm Gel..Gram.) 15 gm PO Q15M PRN; Protocol PRN Reason: per Hypoglycemia Standing Ord. Heparin Sodium (Porcine) (Heparin Sodium,Porcine 5,000 Unit/Ml Vial) 5,000 unit SUBCUT Q12H [facility] Last Admin: 10/18/23 03:08 Dose: 5,000 unit Hydromorphone HCl (Hydromorphone Hcl 0.5 Mg/0.5 Ml Syringe) 0.5 mg IVPUSH Q2H PRN; Protocol PRN Reason: Pain, Moderate(Pain Scale 4-6) Last Admin: 10/19/23 06:42 Dose: 0.5 mg Norepinephrine Bitartrate (Levophed) 8 mg in 250 mls @ 0 mls/hr IV .Q0M [facility]; Protocol Last Admin: 10/20/23 22:27 Dose: 0.06 mcg/kg/min, 8.89 mls/hr Piperacillin Sod/Tazobactam (Sod 2.25 gm/ Sodium Chloride) 50 mls @ 100 mls/hr IV Q6H [facility] Last Infusion: 10/21/23 10:53 Dose: Infused Metronidazole (Flagyl) 500 mg in 100 mls @ 100 mls/hr IV Q8H [facility] Last Admin: 10/21/23 11:19 Dose: 100 mls/hr Dexmedetomidine HCl (Precedex) 400 mcg in 100 mls @ 0 mls/hr IVCONT .Q0M [facility]; Protocol Last Admin: 10/21/23 08:00 Dose: 1.2 mcg/kg/hr, 19.32 mls/hr Propofol (Diprivan) 1,000 mg in 100 mls @ 0 mls/hr IVCONT .Q0M [facility]; Protocol Last Admin: 10/21/23 07:30 Dose: 40 mcg/kg/min, 16.01 mls/hr Vancomycin HCl 1,000 mg/ (Sodium Chloride) 270 mls @ 270 mls/hr IV Q24H [facility] Last Infusion: 10/21/23 10:17 Dose: Infused Insulin Human Lispro (Insulin Lispro 100 Unit/Ml 3 Ml Vial) 0 unit SUBCUT Q6H [facility]; Protocol Last Admin: 10/21/23 05:52 Dose: Not Given Nystatin (Nystatin Powder 15 Gm Bottle) 1 appl TOPICAL BID SUSANA; Protocol Last Admin: 10/21/23 07:21 Dose: 1 appl Ondansetron HCl (Ondansetron Hcl 4 Mg/2 Ml Vial) 4 mg IVPUSH Q4H PRN PRN Reason: Nausea and Vomiting Last Admin: 10/03/23 08:40 Dose: 4 mg Sodium Chloride (0.9 % Sodium Chloride Flush 10 Ml Syringe) 10 ml IVFLUSH Q8H SUSANA Last Admin: 10/21/23 07:20 Dose: 10 ml Home Medications Medication Instructions Recorded Confirmed Last Taken Type bictegravir 50 mg-emtricitabine 1 tab PO DAILY 04/24/22 10/02/23 Unknown History 200 mg-tenofovir alafenam 25 mg tablet (Biktarvy) montelukast 10 mg tablet 10 mg PO BEDTIME 04/24/22 10/02/23 Unknown History nebulizers 08/14/22 Unknown History dapagliflozin propanediol 10 mg 10 mg PO DAILY 10/30/22 10/02/23 Unknown History tablet (Farxiga) furosemide 40 mg tablet 40 mg PO DAILY 10/30/22 10/02/23 Unknown History spironolactone 25 mg tablet 12.5 mg PO DAILY 11/13/22 10/02/23 Unknown History atorvastatin 40 mg tablet 40 mg PO BEDTIME 04/30/23 10/02/23 Unknown History sacubitril 49 mg-valsartan 51 mg 1 tab PO BID 04/30/23 10/02/23 Unknown History tablet (Entresto) cholecalciferol (vitamin D3) 1,250 1,250 mcg PO QWEEK 10/02/23 10/02/23 Unknown History mcg (50,000 unit) capsule Exam Height,Weight and Vital Signs: Height 5 ft 9 in Weight 66.7 kg Last Vital Signs Temp 100.2 F 10/21/23 10:59 Pulse 83 10/21/23 11:03 Resp 30 H 10/21/23 11:03 BP 108/71 10/21/23 10:59 Pulse Ox 96 10/21/23 10:59 O2 Del Method Mechanical Ventilation 10/21/23 10:59 O2 Flow Rate 50 10/14/23 10:00 FiO2 35 10/21/23 11:03 Pertinent Lab Results Pertinent Lab Results: Laboratory Tests 10/02/23 10/02/23 10/02/23 02:58 03:11 03:12 WBC 10.6 RBC 5.54 Hgb 12.6 L Hct 39.9 L MCV 72.0 L MCH 22.7 L MCHC 31.6 RDW 15.3 Plt Count 190 MPV 10.1 Immature Gran % (Auto) 0.5 H Neut % (Auto) 75.6 H Lymph % (Auto) 16.7 L Lewis % (Auto) 7.0 Eos % (Auto) 0.0 Baso % (Auto) 0.2 Lymph # (Auto) 1.8 Lewis # (Auto) 0.7 Eos # (Auto) 0.0 Baso # (Auto) 0.0 Abs Immat Gran (auto) 0.05 H Absolute Neuts (auto) 8.0 Absolute Nucleated RBC 0.020 H Nucleated RBC % (auto) 0.2 Neutrophils % (Manual) Band Neutrophils % Lymphocytes % (Manual) Monocytes % (Manual) Eosinophils % (Manual) Basophils % (Manual) Abs Neuts (Manual) Lymphocytes # (Manual) Monocytes # (Manual) Eosinophils # (Manual) Basophils # (Manual) Nucleated RBCs Smudge Cells Platelet Estimate Large Platelets Plt Morphology Comment RBC Morphology Polychromasia Microcytosis Macrocytosis Target Cells Tear Drop Cells Brady Cells Acanthocytes (Spur) Schistocytes Smear Tech's Comments Smear Path Review Hold Purple Top PT 13.4 H INR 1.1 APTT 26.5 O2 Saturation 88.0 ABG pH at Pt Temp 7.17 L* ABG pCO2 at Pt Temp 56 H ABG pO2 at Pt Temp 75 L ABG HCO3 21 L ABG Base Excess (Actual) -7.6 VBG pH VBG pCO2 VBG pO2 VBG HCO3 VBG O2 Saturation VBG Base Excess Sodium 136 Potassium 4.1 Chloride 100 Carbon Dioxide 21 L Anion Gap 19 BUN 25 H Creatinine 1.84 H Estim Creat Clear Calc 41.0 Estimated GFR 37 POC Glucose Random Glucose 148 H Estimat Average Glucose Hemoglobin A1c % Lactic Acid 2.9 H* Lactic Acid F/U @ 2Hr Calcium 9.3 Phosphorus 7.7 H Magnesium 2.1 Iron TIBC % Saturation Unsat Iron Binding Total Bilirubin 0.5 AST 81 H ALT 37 Alkaline Phosphatase 172 H Lactate Dehydrogenase Troponin I High Sens 139.3 H* C-Reactive Protein 8.05 H B-Natriuretic Peptide 118 H Total Protein 8.5 H Albumin 4.1 Triglycerides Cholesterol LDL Cholesterol, Calc HDL Cholesterol Lipase 32 Procalcitonin 0.10 TSH 0.85 Urine Color Urine Appearance Urine pH Ur Specific [place] Urine Protein Urine Glucose (UA) Urine Ketones Urine Blood Urine Nitrite Ur Leukocyte Esterase Urine RBC Urine WBC Ur Squamous Epith Cells Urine Bacteria Hyaline Casts Granular Casts Urine Yeast Urine Eosinophils % U Random Total Protein Urine Creatinine Stool Occult Blood Random Vancomycin Urine Opiates Screen Urine Fentanyl Screen Ur Barbiturates Screen Ur Phencyclidine Scrn Ur Amphetamines Screen U Benzodiazepines Scrn Urine Cocaine Screen U Marijuana (THC) Screen Ethyl Alcohol < 10 Lymphocyte Subset Cmmnt Total Lymphocytes % CD3 Cells Absolute CD3 Count % CD4 Cells Absolute CD4 Count CD4/CD8 Ratio % CD8 Cells Absolute CD8 Count Hep C Viral Load Hep C Viral Load Log HIV-1 RNA copies/mL HIV-1 RNA logcopies/mL Influenza Type A (PCR) Influenza Type B (PCR) RSV RNA Qual (PCR) SARS-CoV-2 RNA (RT-PCR) Blood Type Antibody Screen Antibody Identification JENNIFER, Polyspecific Positive JENNIFER Work-up Crossmatch (AHG) 10/02/23 10/02/23 10/02/23 03:44 03:45 05:15 WBC RBC Hgb Hct MCV MCH MCHC RDW Plt Count MPV Immature Gran % (Auto) Neut % (Auto) Lymph % (Auto) Lewis % (Auto) Eos % (Auto) Baso % (Auto) Lymph # (Auto) Lewis # (Auto) Eos # (Auto) Baso # (Auto) Abs Immat Gran (auto) Absolute Neuts (auto) Absolute Nucleated RBC Nucleated RBC % (auto) Neutrophils % (Manual) Band Neutrophils % Lymphocytes % (Manual) Monocytes % (Manual) Eosinophils % (Manual) Basophils % (Manual) Abs Neuts (Manual) Lymphocytes # (Manual) Monocytes # (Manual) Eosinophils # (Manual) Basophils # (Manual) Nucleated RBCs Smudge Cells Platelet Estimate Large Platelets Plt Morphology Comment RBC Morphology Polychromasia Microcytosis Macrocytosis Target Cells Tear Drop Cells Amonate Cells Acanthocytes (Spur) Schistocytes Smear Tech's Comments Smear Path Review Hold Purple Top PT INR APTT O2 Saturation ABG pH at Pt Temp ABG pCO2 at Pt Temp ABG pO2 at Pt Temp ABG HCO3 ABG Base Excess (Actual) VBG pH VBG pCO2 VBG pO2 VBG HCO3 VBG O2 Saturation VBG Base Excess Sodium Potassium Chloride Carbon Dioxide Anion Gap BUN Creatinine Estim Creat Clear Calc Estimated GFR POC Glucose Random Glucose Estimat Average Glucose Hemoglobin A1c % Lactic Acid Lactic Acid F/U @ 2Hr Calcium Phosphorus Magnesium Iron TIBC % Saturation Unsat Iron Binding Total Bilirubin AST ALT Alkaline Phosphatase Lactate Dehydrogenase Troponin I High Sens 1908.2 H* D C-Reactive Protein B-Natriuretic Peptide Total Protein Albumin Triglycerides Cholesterol LDL Cholesterol, Calc HDL Cholesterol Lipase Procalcitonin TSH Urine Color Yellow Urine Appearance Cloudy Urine pH 6.5 Ur Specific [place] 1.020 Urine Protein 300 (3+) H Urine Glucose (UA) 500 H Urine Ketones Negative Urine Blood Large (3+) H Urine Nitrite Negative Ur Leukocyte Esterase Negative Urine RBC 6-10 H Urine WBC 21-50 H Ur Squamous Epith Cells 0-2 Urine Bacteria 1+ Hyaline Casts 11-20 Granular Casts Present Urine Yeast Urine Eosinophils % U Random Total Protein Urine Creatinine Stool Occult Blood Random Vancomycin Urine Opiates Screen Not Detected Urine Fentanyl Screen Not Detected Ur Barbiturates Screen Not Detected Ur Phencyclidine Scrn Not Detected Ur Amphetamines Screen Not Detected U Benzodiazepines Scrn Not Detected Urine Cocaine Screen Not Detected U Marijuana (THC) Screen POSITIVE H Ethyl Alcohol Lymphocyte Subset Cmmnt TNP Total Lymphocytes 580 L % CD3 Cells 43 L Absolute CD3 Count 251 L % CD4 Cells 27 L Absolute CD4 Count 158 L CD4/CD8 Ratio 1.85 % CD8 Cells 15 Absolute CD8 Count 85 L Hep C Viral Load <15 NOT DETECTED Hep C Viral Load Log <1.18 NOT DETECTED HIV-1 RNA copies/mL NOT DETECTED HIV-1 RNA logcopies/mL NOT DETECTED Influenza Type A (PCR) POSITIVE A Influenza Type B (PCR) NEGATIVE RSV RNA Qual (PCR) NEGATIVE SARS-CoV-2 RNA (RT-PCR) NEGATIVE Blood Type Antibody Screen Antibody Identification JENNIFER, Polyspecific Positive JENNIFER Work-up Crossmatch (AHG) 10/02/23 10/02/23 10/02/23 06:21 08:03 08:45 WBC RBC Hgb Hct MCV MCH MCHC RDW Plt Count MPV Immature Gran % (Auto) Neut % (Auto) Lymph % (Auto) Lewis % (Auto) Eos % (Auto) Baso % (Auto) Lymph # (Auto) Lewis # (Auto) Eos # (Auto) Baso # (Auto) Abs Immat Gran (auto) Absolute Neuts (auto) Absolute Nucleated RBC Nucleated RBC % (auto) Neutrophils % (Manual) Band Neutrophils % Lymphocytes % (Manual) Monocytes % (Manual) Eosinophils % (Manual) Basophils % (Manual) Abs Neuts (Manual) Lymphocytes # (Manual) Monocytes # (Manual) Eosinophils # (Manual) Basophils # (Manual) Nucleated RBCs Smudge Cells Platelet Estimate Large Platelets Plt Morphology Comment RBC Morphology Polychromasia Microcytosis Macrocytosis Target Cells Tear Drop Cells Brady Cells Acanthocytes (Spur) Schistocytes Smear Tech's Comments Smear Path Review Hold Purple Top PT INR APTT O2 Saturation ABG pH at Pt Temp ABG pCO2 at Pt Temp ABG pO2 at Pt Temp ABG HCO3 ABG Base Excess (Actual) VBG pH VBG pCO2 VBG pO2 VBG HCO3 VBG O2 Saturation VBG Base Excess Sodium Potassium Chloride Carbon Dioxide Anion Gap BUN Creatinine Estim Creat Clear Calc Estimated GFR POC Glucose 152 H Random Glucose Estimat Average Glucose Hemoglobin A1c % Lactic Acid Lactic Acid F/U @ 2Hr 1.3 Calcium Phosphorus Magnesium Iron TIBC % Saturation Unsat Iron Binding Total Bilirubin AST ALT Alkaline Phosphatase Lactate Dehydrogenase Troponin I High Sens 7507.3 H* D C-Reactive Protein B-Natriuretic Peptide Total Protein Albumin Triglycerides Cholesterol LDL Cholesterol, Calc HDL Cholesterol Lipase Procalcitonin TSH Urine Color Urine Appearance Urine pH Ur Specific [place] Urine Protein Urine Glucose (UA) Urine Ketones Urine Blood Urine Nitrite Ur Leukocyte Esterase Urine RBC Urine WBC Ur Squamous Epith Cells Urine Bacteria Hyaline Casts Granular Casts Urine Yeast Urine Eosinophils % U Random Total Protein Urine Creatinine Stool Occult Blood Random Vancomycin Urine Opiates Screen Urine Fentanyl Screen Ur Barbiturates Screen Ur Phencyclidine Scrn Ur Amphetamines Screen U Benzodiazepines Scrn Urine Cocaine Screen U Marijuana (THC) Screen Ethyl Alcohol Lymphocyte Subset Cmmnt Total Lymphocytes % CD3 Cells Absolute CD3 Count % CD4 Cells Absolute CD4 Count CD4/CD8 Ratio % CD8 Cells Absolute CD8 Count Hep C Viral Load Hep C Viral Load Log HIV-1 RNA copies/mL HIV-1 RNA logcopies/mL Influenza Type A (PCR) Influenza Type B (PCR) RSV RNA Qual (PCR) SARS-CoV-2 RNA (RT-PCR) Blood Type Antibody Screen Antibody Identification JENNIFER, Polyspecific Positive JENNIFER Work-up Crossmatch (AHG) 10/02/23 10/02/23 10/02/23 11:17 11:21 13:11 WBC 15.7 H RBC 5.12 Hgb 11.7 L Hct 36.9 L MCV 72.1 L MCH 22.9 L MCHC 31.7 RDW 15.4 Plt Count 186 MPV 9.8 Immature Gran % (Auto) 0.6 H Neut % (Auto) 86.1 H Lymph % (Auto) 4.1 L Lewis % (Auto) 9.0 Eos % (Auto) 0.0 Baso % (Auto) 0.2 Lymph # (Auto) 0.7 L Lewis # (Auto) 1.4 H Eos # (Auto) 0.0 Baso # (Auto) 0.0 Abs Immat Gran (auto) 0.10 H Absolute Neuts (auto) 13.5 H Absolute Nucleated RBC 0.040 H Nucleated RBC % (auto) 0.3 H Neutrophils % (Manual) Band Neutrophils % Lymphocytes % (Manual) Monocytes % (Manual) Eosinophils % (Manual) Basophils % (Manual) Abs Neuts (Manual) Lymphocytes # (Manual) Monocytes # (Manual) Eosinophils # (Manual) Basophils # (Manual) Nucleated RBCs Smudge Cells Platelet Estimate Large Platelets Plt Morphology Comment RBC Morphology Polychromasia Microcytosis Macrocytosis Target Cells Tear Drop Cells Amonate Cells Acanthocytes (Spur) Schistocytes Smear Tech's Comments Smear Path Review Hold Purple Top PT INR APTT O2 Saturation ABG pH at Pt Temp ABG pCO2 at Pt Temp ABG pO2 at Pt Temp ABG HCO3 ABG Base Excess (Actual) VBG pH 7.33 VBG pCO2 45 VBG pO2 63 VBG HCO3 24 VBG O2 Saturation 89.0 VBG Base Excess -1.2 Sodium 135 Potassium 4.7 Chloride 99 Carbon Dioxide 24 Anion Gap 17 BUN 31 H Creatinine 2.06 H Estim Creat Clear Calc 35.5 Estimated GFR 33 POC Glucose 231 H Random Glucose 230 H Estimat Average Glucose 111 Hemoglobin A1c % 5.5 Lactic Acid Lactic Acid F/U @ 2Hr Calcium 7.9 L D Phosphorus Magnesium Iron TIBC % Saturation Unsat Iron Binding Total Bilirubin 0.8 AST 69 H ALT 40 Alkaline Phosphatase 143 H Lactate Dehydrogenase Troponin I High Sens C-Reactive Protein B-Natriuretic Peptide Total Protein 6.5 Albumin 3.1 L Triglycerides 69 Cholesterol 99 LDL Cholesterol, Calc 42 HDL Cholesterol 44 Lipase Procalcitonin TSH Urine Color Urine Appearance Urine pH Ur Specific [place] Urine Protein Urine Glucose (UA) Urine Ketones Urine Blood Urine Nitrite Ur Leukocyte Esterase Urine RBC Urine WBC Ur Squamous Epith Cells Urine Bacteria Hyaline Casts Granular Casts Urine Yeast Urine Eosinophils % U Random Total Protein Urine Creatinine Stool Occult Blood Random Vancomycin Urine Opiates Screen Urine Fentanyl Screen Ur Barbiturates Screen Ur Phencyclidine Scrn Ur Amphetamines Screen U Benzodiazepines Scrn Urine Cocaine Screen U Marijuana (THC) Screen Ethyl Alcohol Lymphocyte Subset Cmmnt Total Lymphocytes % CD3 Cells Absolute CD3 Count % CD4 Cells Absolute CD4 Count CD4/CD8 Ratio % CD8 Cells Absolute CD8 Count Hep C Viral Load Hep C Viral Load Log HIV-1 RNA copies/mL HIV-1 RNA logcopies/mL Influenza Type A (PCR) Influenza Type B (PCR) RSV RNA Qual (PCR) SARS-CoV-2 RNA (RT-PCR) Blood Type Antibody Screen Antibody Identification JENNIFER, Polyspecific Positive JENNIFER Work-up Crossmatch (AHG) 10/02/23 10/02/23 10/02/23 13:17 18:14 19:14 WBC RBC Hgb Hct MCV MCH MCHC RDW Plt Count MPV Immature Gran % (Auto) Neut % (Auto) Lymph % (Auto) Lewis % (Auto) Eos % (Auto) Baso % (Auto) Lymph # (Auto) Lewis # (Auto) Eos # (Auto) Baso # (Auto) Abs Immat Gran (auto) Absolute Neuts (auto) Absolute Nucleated RBC Nucleated RBC % (auto) Neutrophils % (Manual) Band Neutrophils % Lymphocytes % (Manual) Monocytes % (Manual) Eosinophils % (Manual) Basophils % (Manual) Abs Neuts (Manual) Lymphocytes # (Manual) Monocytes # (Manual) Eosinophils # (Manual) Basophils # (Manual) Nucleated RBCs Smudge Cells Platelet Estimate Large Platelets Plt Morphology Comment RBC Morphology Polychromasia Microcytosis Macrocytosis Target Cells Tear Drop Cells Brady Cells Acanthocytes (Spur) Schistocytes Smear Tech's Comments Smear Path Review Hold Purple Top SEE NOTE PT INR APTT O2 Saturation ABG pH at Pt Temp ABG pCO2 at Pt Temp ABG pO2 at Pt Temp ABG HCO3 ABG Base Excess (Actual) VBG pH VBG pCO2 VBG pO2 VBG HCO3 VBG O2 Saturation VBG Base Excess Sodium Potassium Chloride Carbon Dioxide Anion Gap BUN Creatinine Estim Creat Clear Calc Estimated GFR POC Glucose 244 H Random Glucose Estimat Average Glucose Hemoglobin A1c % Lactic Acid Lactic Acid F/U @ 2Hr Calcium Phosphorus Magnesium Iron TIBC % Saturation Unsat Iron Binding Total Bilirubin AST ALT Alkaline Phosphatase Lactate Dehydrogenase Troponin I High Sens 9086.1 H* 77999.6 H* C-Reactive Protein B-Natriuretic Peptide Total Protein Albumin Triglycerides Cholesterol LDL Cholesterol, Calc HDL Cholesterol Lipase Procalcitonin TSH Urine Color Urine Appearance Urine pH Ur Specific [place] Urine Protein Urine Glucose (UA) Urine Ketones Urine Blood Urine Nitrite Ur Leukocyte Esterase Urine RBC Urine WBC Ur Squamous Epith Cells Urine Bacteria Hyaline Casts Granular Casts Urine Yeast Urine Eosinophils % U Random Total Protein Urine Creatinine Stool Occult Blood Random Vancomycin Urine Opiates Screen Urine Fentanyl Screen Ur Barbiturates Screen Ur Phencyclidine Scrn Ur Amphetamines Screen U Benzodiazepines Scrn Urine Cocaine Screen U Marijuana (THC) Screen Ethyl Alcohol Lymphocyte Subset Cmmnt Total Lymphocytes % CD3 Cells Absolute CD3 Count % CD4 Cells Absolute CD4 Count CD4/CD8 Ratio % CD8 Cells Absolute CD8 Count Hep C Viral Load Hep C Viral Load Log HIV-1 RNA copies/mL HIV-1 RNA logcopies/mL Influenza Type A (PCR) Influenza Type B (PCR) RSV RNA Qual (PCR) SARS-CoV-2 RNA (RT-PCR) Blood Type Antibody Screen Antibody Identification JENNIFER, Polyspecific Positive JENNIFER Work-up Crossmatch (AHG) 10/02/23 10/02/23 10/02/23 22:52 22:55 23:34 WBC 14.3 H RBC 5.02 Hgb 11.4 L Hct 35.6 L MCV 70.9 L MCH 22.7 L MCHC 32.0 RDW 15.1 Plt Count 170 MPV 10.1 Immature Gran % (Auto) 0.6 H Neut % (Auto) 85.9 H Lymph % (Auto) 5.4 L Lewis % (Auto) 7.9 Eos % (Auto) 0.1 Baso % (Auto) 0.1 Lymph # (Auto) 0.8 L Lewis # (Auto) 1.1 Eos # (Auto) 0.0 Baso # (Auto) 0.0 Abs Immat Gran (auto) 0.08 H Absolute Neuts (auto) 12.3 H Absolute Nucleated RBC 0.000 Nucleated RBC % (auto) 0.0 Neutrophils % (Manual) Band Neutrophils % Lymphocytes % (Manual) Monocytes % (Manual) Eosinophils % (Manual) Basophils % (Manual) Abs Neuts (Manual) Lymphocytes # (Manual) Monocytes # (Manual) Eosinophils # (Manual) Basophils # (Manual) Nucleated RBCs Smudge Cells Platelet Estimate Large Platelets Plt Morphology Comment RBC Morphology Polychromasia Microcytosis Macrocytosis Target Cells Tear Drop Cells Brady Cells Acanthocytes (Spur) Schistocytes Smear Tech's Comments Smear Path Review Hold Purple Top PT INR APTT O2 Saturation ABG pH at Pt Temp ABG pCO2 at Pt Temp ABG pO2 at Pt Temp ABG HCO3 ABG Base Excess (Actual) VBG pH 7.39 VBG pCO2 40 VBG pO2 42 VBG HCO3 25 VBG O2 Saturation 65.0 VBG Base Excess 0.3 Sodium 133 L Potassium 4.3 Chloride 99 Carbon Dioxide 22 Anion Gap 16 BUN 34 H Creatinine 2.06 H Estim Creat Clear Calc 35.5 Estimated GFR 33 POC Glucose Random Glucose 181 H Estimat Average Glucose Hemoglobin A1c % Lactic Acid Lactic Acid F/U @ 2Hr Calcium 9.1 D Phosphorus Magnesium Iron TIBC % Saturation Unsat Iron Binding Total Bilirubin 0.6 AST 74 H ALT 38 Alkaline Phosphatase 112 Lactate Dehydrogenase Troponin I High Sens 9815.5 H* C-Reactive Protein B-Natriuretic Peptide Total Protein 6.3 L Albumin 3.1 L Triglycerides Cholesterol LDL Cholesterol, Calc HDL Cholesterol Lipase Procalcitonin TSH Urine Color Urine Appearance Urine pH Ur Specific [place] Urine Protein Urine Glucose (UA) Urine Ketones Urine Blood Urine Nitrite Ur Leukocyte Esterase Urine RBC Urine WBC Ur Squamous Epith Cells Urine Bacteria Hyaline Casts Granular Casts Urine Yeast Urine Eosinophils % U Random Total Protein Urine Creatinine Stool Occult Blood Random Vancomycin Urine Opiates Screen Urine Fentanyl Screen Ur Barbiturates Screen Ur Phencyclidine Scrn Ur Amphetamines Screen U Benzodiazepines Scrn Urine Cocaine Screen U Marijuana (THC) Screen Ethyl Alcohol Lymphocyte Subset Cmmnt Total Lymphocytes % CD3 Cells Absolute CD3 Count % CD4 Cells Absolute CD4 Count CD4/CD8 Ratio % CD8 Cells Absolute CD8 Count Hep C Viral Load Hep C Viral Load Log HIV-1 RNA copies/mL HIV-1 RNA logcopies/mL Influenza Type A (PCR) Influenza Type B (PCR) RSV RNA Qual (PCR) SARS-CoV-2 RNA (RT-PCR) Blood Type Antibody Screen Antibody Identification JENNIFER, Polyspecific Positive JENNIFER Work-up Crossmatch (AHG) 10/03/23 10/03/23 10/03/23 05:38 06:16 06:19 WBC 11.6 H RBC 4.64 Hgb 10.5 L Hct 32.6 L MCV 70.3 L MCH 22.6 L MCHC 32.2 RDW 14.7 Plt Count 127 L D MPV 11.0 Immature Gran % (Auto) 0.3 Neut % (Auto) 84.8 H Lymph % (Auto) 6.8 L Lewis % (Auto) 8.0 Eos % (Auto) 0.0 Baso % (Auto) 0.1 Lymph # (Auto) 0.8 L Lewis # (Auto) 0.9 Eos # (Auto) 0.0 Baso # (Auto) 0.0 Abs Immat Gran (auto) 0.03 Absolute Neuts (auto) 9.8 H Absolute Nucleated RBC 0.030 H Nucleated RBC % (auto) 0.3 H Neutrophils % (Manual) Band Neutrophils % Lymphocytes % (Manual) Monocytes % (Manual) Eosinophils % (Manual) Basophils % (Manual) Abs Neuts (Manual) Lymphocytes # (Manual) Monocytes # (Manual) Eosinophils # (Manual) Basophils # (Manual) Nucleated RBCs Smudge Cells Platelet Estimate Large Platelets Plt Morphology Comment RBC Morphology Polychromasia Microcytosis Macrocytosis Target Cells Tear Drop Cells Amonate Cells Acanthocytes (Spur) Schistocytes Smear Tech's Comments Smear Path Review Hold Purple Top PT INR APTT O2 Saturation ABG pH at Pt Temp ABG pCO2 at Pt Temp ABG pO2 at Pt Temp ABG HCO3 ABG Base Excess (Actual) VBG pH 7.43 VBG pCO2 36 VBG pO2 40 VBG HCO3 25 VBG O2 Saturation 64.0 VBG Base Excess 1.1 Sodium 133 L Potassium 4.6 Chloride 98 Carbon Dioxide 22 Anion Gap 18 BUN 34 H Creatinine 1.99 H Estim Creat Clear Calc 36.7 Estimated GFR 34 POC Glucose 156 H Random Glucose 152 H Estimat Average Glucose Hemoglobin A1c % Lactic Acid Lactic Acid F/U @ 2Hr Calcium 8.8 Phosphorus 2.9 Magnesium 1.9 Iron TIBC % Saturation Unsat Iron Binding Total Bilirubin AST ALT Alkaline Phosphatase Lactate Dehydrogenase Troponin I High Sens C-Reactive Protein B-Natriuretic Peptide Total Protein Albumin Triglycerides Cholesterol LDL Cholesterol, Calc HDL Cholesterol Lipase Procalcitonin TSH Urine Color Urine Appearance Urine pH Ur Specific [place] Urine Protein Urine Glucose (UA) Urine Ketones Urine Blood Urine Nitrite Ur Leukocyte Esterase Urine RBC Urine WBC Ur Squamous Epith Cells Urine Bacteria Hyaline Casts Granular Casts Urine Yeast Urine Eosinophils % U Random Total Protein Urine Creatinine Stool Occult Blood Random Vancomycin 16.0 Urine Opiates Screen Urine Fentanyl Screen Ur Barbiturates Screen Ur Phencyclidine Scrn Ur Amphetamines Screen U Benzodiazepines Scrn Urine Cocaine Screen U Marijuana (THC) Screen Ethyl Alcohol Lymphocyte Subset Cmmnt Total Lymphocytes % CD3 Cells Absolute CD3 Count % CD4 Cells Absolute CD4 Count CD4/CD8 Ratio % CD8 Cells Absolute CD8 Count Hep C Viral Load Hep C Viral Load Log HIV-1 RNA copies/mL HIV-1 RNA logcopies/mL Influenza Type A (PCR) Influenza Type B (PCR) RSV RNA Qual (PCR) SARS-CoV-2 RNA (RT-PCR) Blood Type Antibody Screen Antibody Identification JENNIFER, Polyspecific Positive JENNIFER Work-up Crossmatch ([facility]) 10/03/23 10/03/23 10/03/23 11:58 17:17 20:14 WBC RBC Hgb Hct MCV MCH MCHC RDW Plt Count MPV Immature Gran % (Auto) Neut % (Auto) Lymph % (Auto) Lewis % (Auto) Eos % (Auto) Baso % (Auto) Lymph # (Auto) Lewis # (Auto) Eos # (Auto) Baso # (Auto) Abs Immat Gran (auto) Absolute Neuts (auto) Absolute Nucleated RBC Nucleated RBC % (auto) Neutrophils % (Manual) Band Neutrophils % Lymphocytes % (Manual) Monocytes % (Manual) Eosinophils % (Manual) Basophils % (Manual) Abs Neuts (Manual) Lymphocytes # (Manual) Monocytes # (Manual) Eosinophils # (Manual) Basophils # (Manual) Nucleated RBCs Smudge Cells Platelet Estimate Large Platelets Plt Morphology Comment RBC Morphology Polychromasia Microcytosis Macrocytosis Target Cells Tear Drop Cells Amonate Cells Acanthocytes (Spur) Schistocytes Smear Tech's Comments Smear Path Review Hold Purple Top PT INR APTT O2 Saturation ABG pH at Pt Temp ABG pCO2 at Pt Temp ABG pO2 at Pt Temp ABG HCO3 ABG Base Excess (Actual) VBG pH VBG pCO2 VBG pO2 VBG HCO3 VBG O2 Saturation VBG Base Excess Sodium Potassium Chloride Carbon Dioxide Anion Gap BUN Creatinine Estim Creat Clear Calc Estimated GFR POC Glucose 197 H 210 H Random Glucose Estimat Average Glucose Hemoglobin A1c % Lactic Acid Lactic Acid F/U @ 2Hr Calcium Phosphorus Magnesium Iron TIBC % Saturation Unsat Iron Binding Total Bilirubin AST ALT Alkaline Phosphatase Lactate Dehydrogenase Troponin I High Sens C-Reactive Protein B-Natriuretic Peptide Total Protein Albumin Triglycerides Cholesterol LDL Cholesterol, Calc HDL Cholesterol Lipase Procalcitonin TSH Urine Color Urine Appearance Urine pH Ur Specific [place] Urine Protein Urine Glucose (UA) Urine Ketones Urine Blood Urine Nitrite Ur Leukocyte Esterase Urine RBC Urine WBC Ur Squamous Epith Cells Urine Bacteria Hyaline Casts Granular Casts Urine Yeast Urine Eosinophils % U Random Total Protein Urine Creatinine Stool Occult Blood Random Vancomycin 19.5 Urine Opiates Screen Urine Fentanyl Screen Ur Barbiturates Screen Ur Phencyclidine Scrn Ur Amphetamines Screen U Benzodiazepines Scrn Urine Cocaine Screen U Marijuana (THC) Screen Ethyl Alcohol Lymphocyte Subset Cmmnt Total Lymphocytes % CD3 Cells Absolute CD3 Count % CD4 Cells Absolute CD4 Count CD4/CD8 Ratio % CD8 Cells Absolute CD8 Count Hep C Viral Load Hep C Viral Load Log HIV-1 RNA copies/mL HIV-1 RNA logcopies/mL Influenza Type A (PCR) Influenza Type B (PCR) RSV RNA Qual (PCR) SARS-CoV-2 RNA (RT-PCR) Blood Type Antibody Screen Antibody Identification JENNIFER, Polyspecific Positive JENNIFER Work-up Crossmatch ([facility]) 10/03/23 10/04/23 10/04/23 23:49 04:32 04:33 WBC 8.3 RBC 4.83 Hgb 10.9 L Hct 32.8 L MCV 67.9 L MCH 22.6 L MCHC 33.2 RDW 14.4 Plt Count 142 L MPV 10.3 Immature Gran % (Auto) 0.1 Neut % (Auto) 85.8 H Lymph % (Auto) 5.2 L Lewis % (Auto) 8.9 Eos % (Auto) 0.0 Baso % (Auto) 0.0 Lymph # (Auto) 0.4 L Lewis # (Auto) 0.7 Eos # (Auto) 0.0 Baso # (Auto) 0.0 Abs Immat Gran (auto) 0.01 Absolute Neuts (auto) 7.1 Absolute Nucleated RBC 0.030 H Nucleated RBC % (auto) 0.4 H Neutrophils % (Manual) Band Neutrophils % Lymphocytes % (Manual) Monocytes % (Manual) Eosinophils % (Manual) Basophils % (Manual) Abs Neuts (Manual) Lymphocytes # (Manual) Monocytes # (Manual) Eosinophils # (Manual) Basophils # (Manual) Nucleated RBCs Smudge Cells Platelet Estimate Large Platelets Plt Morphology Comment RBC Morphology Polychromasia Microcytosis Macrocytosis Target Cells Tear Drop Cells Brady Cells Acanthocytes (Spur) Schistocytes Smear Tech's Comments Smear Path Review Hold Purple Top PT INR APTT O2 Saturation ABG pH at Pt Temp ABG pCO2 at Pt Temp ABG pO2 at Pt Temp ABG HCO3 ABG Base Excess (Actual) VBG pH 7.47 H VBG pCO2 38 VBG pO2 42 VBG HCO3 28 H VBG O2 Saturation 67.0 VBG Base Excess 5.2 Sodium 134 L Potassium 3.8 Chloride 97 Carbon Dioxide 27 Anion Gap 14 BUN 29 H Creatinine 1.68 H Estim Creat Clear Calc 42.3 Estimated GFR 41 POC Glucose 155 H Random Glucose 125 H Estimat Average Glucose Hemoglobin A1c % Lactic Acid Lactic Acid F/U @ 2Hr Calcium 9.1 Phosphorus 1.9 L Magnesium 1.9 Iron TIBC % Saturation Unsat Iron Binding Total Bilirubin AST ALT Alkaline Phosphatase Lactate Dehydrogenase Troponin I High Sens C-Reactive Protein B-Natriuretic Peptide Total Protein Albumin Triglycerides Cholesterol LDL Cholesterol, Calc HDL Cholesterol Lipase Procalcitonin TSH Urine Color Urine Appearance Urine pH Ur Specific [place] Urine Protein Urine Glucose (UA) Urine Ketones Urine Blood Urine Nitrite Ur Leukocyte Esterase Urine RBC Urine WBC Ur Squamous Epith Cells Urine Bacteria Hyaline Casts Granular Casts Urine Yeast Urine Eosinophils % U Random Total Protein Urine Creatinine Stool Occult Blood Random Vancomycin Urine Opiates Screen Urine Fentanyl Screen Ur Barbiturates Screen Ur Phencyclidine Scrn Ur Amphetamines Screen U Benzodiazepines Scrn Urine Cocaine Screen U Marijuana (THC) Screen Ethyl Alcohol Lymphocyte Subset Cmmnt Total Lymphocytes % CD3 Cells Absolute CD3 Count % CD4 Cells Absolute CD4 Count CD4/CD8 Ratio % CD8 Cells Absolute CD8 Count Hep C Viral Load Hep C Viral Load Log HIV-1 RNA copies/mL HIV-1 RNA logcopies/mL Influenza Type A (PCR) Influenza Type B (PCR) RSV RNA Qual (PCR) SARS-CoV-2 RNA (RT-PCR) Blood Type Antibody Screen Antibody Identification JENNIFER, Polyspecific Positive JENNIFER Work-up Crossmatch ([facility]) 10/04/23 10/04/23 10/04/23 06:18 08:49 12:01 WBC RBC Hgb Hct MCV MCH MCHC RDW Plt Count MPV Immature Gran % (Auto) Neut % (Auto) Lymph % (Auto) Lewis % (Auto) Eos % (Auto) Baso % (Auto) Lymph # (Auto) Lewis # (Auto) Eos # (Auto) Baso # (Auto) Abs Immat Gran (auto) Absolute Neuts (auto) Absolute Nucleated RBC Nucleated RBC % (auto) Neutrophils % (Manual) Band Neutrophils % Lymphocytes % (Manual) Monocytes % (Manual) Eosinophils % (Manual) Basophils % (Manual) Abs Neuts (Manual) Lymphocytes # (Manual) Monocytes # (Manual) Eosinophils # (Manual) Basophils # (Manual) Nucleated RBCs Smudge Cells Platelet Estimate Large Platelets Plt Morphology Comment RBC Morphology Polychromasia Microcytosis Macrocytosis Target Cells Tear Drop Cells Brady Cells Acanthocytes (Spur) Schistocytes Smear Tech's Comments Smear Path Review Hold Purple Top PT INR APTT O2 Saturation ABG pH at Pt Temp ABG pCO2 at Pt Temp ABG pO2 at Pt Temp ABG HCO3 ABG Base Excess (Actual) VBG pH VBG pCO2 VBG pO2 VBG HCO3 VBG O2 Saturation VBG Base Excess Sodium Potassium Chloride Carbon Dioxide Anion Gap BUN Creatinine Estim Creat Clear Calc Estimated GFR POC Glucose 132 H 144 H Random Glucose Estimat Average Glucose Hemoglobin A1c % Lactic Acid Lactic Acid F/U @ 2Hr Calcium Phosphorus Magnesium Iron TIBC % Saturation Unsat Iron Binding Total Bilirubin AST ALT Alkaline Phosphatase Lactate Dehydrogenase Troponin I High Sens C-Reactive Protein B-Natriuretic Peptide Total Protein Albumin Triglycerides Cholesterol LDL Cholesterol, Calc HDL Cholesterol Lipase Procalcitonin TSH Urine Color Urine Appearance Urine pH Ur Specific [place] Urine Protein Urine Glucose (UA) Urine Ketones Urine Blood Urine Nitrite Ur Leukocyte Esterase Urine RBC Urine WBC Ur Squamous Epith Cells Urine Bacteria Hyaline Casts Granular Casts Urine Yeast Urine Eosinophils % U Random Total Protein Urine Creatinine Stool Occult Blood Random Vancomycin 13.2 L Urine Opiates Screen Urine Fentanyl Screen Ur Barbiturates Screen Ur Phencyclidine Scrn Ur Amphetamines Screen U Benzodiazepines Scrn Urine Cocaine Screen U Marijuana (THC) Screen Ethyl Alcohol Lymphocyte Subset Cmmnt Total Lymphocytes % CD3 Cells Absolute CD3 Count % CD4 Cells Absolute CD4 Count CD4/CD8 Ratio % CD8 Cells Absolute CD8 Count Hep C Viral Load Hep C Viral Load Log HIV-1 RNA copies/mL HIV-1 RNA logcopies/mL Influenza Type A (PCR) Influenza Type B (PCR) RSV RNA Qual (PCR) SARS-CoV-2 RNA (RT-PCR) Blood Type Antibody Screen Antibody Identification JENNIFER, Polyspecific Positive JENNIFER Work-up Crossmatch ([facility]) 10/04/23 10/05/23 10/05/23 16:57 00:17 04:11 WBC 6.1 RBC 4.65 Hgb 10.4 L Hct 31.7 L MCV 68.2 L MCH 22.4 L MCHC 32.8 RDW 14.6 Plt Count 109 L MPV TNP Immature Gran % (Auto) 0.2 Neut % (Auto) 81.7 H Lymph % (Auto) 10.3 L Lewis % (Auto) 7.4 Eos % (Auto) 0.2 Baso % (Auto) 0.2 Lymph # (Auto) 0.6 L Lewis # (Auto) 0.5 Eos # (Auto) 0.0 Baso # (Auto) 0.0 Abs Immat Gran (auto) 0.01 Absolute Neuts (auto) 5.0 Absolute Nucleated RBC 0.020 H Nucleated RBC % (auto) 0.3 H Neutrophils % (Manual) Band Neutrophils % Lymphocytes % (Manual) Monocytes % (Manual) Eosinophils % (Manual) Basophils % (Manual) Abs Neuts (Manual) Lymphocytes # (Manual) Monocytes # (Manual) Eosinophils # (Manual) Basophils # (Manual) Nucleated RBCs Smudge Cells Platelet Estimate Large Platelets Plt Morphology Comment RBC Morphology Polychromasia Microcytosis Macrocytosis Target Cells Tear Drop Cells Brady Cells Acanthocytes (Spur) Schistocytes Smear Tech's Comments Smear Path Review Hold Purple Top PT INR APTT O2 Saturation ABG pH at Pt Temp ABG pCO2 at Pt Temp ABG pO2 at Pt Temp ABG HCO3 ABG Base Excess (Actual) VBG pH VBG pCO2 VBG pO2 VBG HCO3 VBG O2 Saturation VBG Base Excess Sodium Potassium Chloride Carbon Dioxide Anion Gap BUN Creatinine Estim Creat Clear Calc Estimated GFR POC Glucose 193 H 156 H Random Glucose Estimat Average Glucose Hemoglobin A1c % Lactic Acid Lactic Acid F/U @ 2Hr Calcium Phosphorus Magnesium Iron TIBC % Saturation Unsat Iron Binding Total Bilirubin AST ALT Alkaline Phosphatase Lactate Dehydrogenase Troponin I High Sens C-Reactive Protein B-Natriuretic Peptide Total Protein Albumin Triglycerides Cholesterol LDL Cholesterol, Calc HDL Cholesterol Lipase Procalcitonin TSH Urine Color Urine Appearance Urine pH Ur Specific [place] Urine Protein Urine Glucose (UA) Urine Ketones Urine Blood Urine Nitrite Ur Leukocyte Esterase Urine RBC Urine WBC Ur Squamous Epith Cells Urine Bacteria Hyaline Casts Granular Casts Urine Yeast Urine Eosinophils % U Random Total Protein Urine Creatinine Stool Occult Blood Random Vancomycin Urine Opiates Screen Urine Fentanyl Screen Ur Barbiturates Screen Ur Phencyclidine Scrn Ur Amphetamines Screen U Benzodiazepines Scrn Urine Cocaine Screen U Marijuana (THC) Screen Ethyl Alcohol Lymphocyte Subset Cmmnt Total Lymphocytes % CD3 Cells Absolute CD3 Count % CD4 Cells Absolute CD4 Count CD4/CD8 Ratio % CD8 Cells Absolute CD8 Count Hep C Viral Load Hep C Viral Load Log HIV-1 RNA copies/mL HIV-1 RNA logcopies/mL Influenza Type A (PCR) Influenza Type B (PCR) RSV RNA Qual (PCR) SARS-CoV-2 RNA (RT-PCR) Blood Type Antibody Screen Antibody Identification JENNIFER, Polyspecific Positive JENNIFER Work-up Crossmatch ([facility]) 10/05/23 10/05/23 10/05/23 04:25 04:29 07:25 WBC RBC Hgb Hct MCV MCH MCHC RDW Plt Count MPV Immature Gran % (Auto) Neut % (Auto) Lymph % (Auto) Lewis % (Auto) Eos % (Auto) Baso % (Auto) Lymph # (Auto) Lewis # (Auto) Eos # (Auto) Baso # (Auto) Abs Immat Gran (auto) Absolute Neuts (auto) Absolute Nucleated RBC Nucleated RBC % (auto) Neutrophils % (Manual) Band Neutrophils % Lymphocytes % (Manual) Monocytes % (Manual) Eosinophils % (Manual) Basophils % (Manual) Abs Neuts (Manual) Lymphocytes # (Manual) Monocytes # (Manual) Eosinophils # (Manual) Basophils # (Manual) Nucleated RBCs Smudge Cells Platelet Estimate Large Platelets Plt Morphology Comment RBC Morphology Polychromasia Microcytosis Macrocytosis Target Cells Tear Drop Cells Brady Cells Acanthocytes (Spur) Schistocytes Smear Tech's Comments Smear Path Review Hold Purple Top SEE NOTE PT INR APTT O2 Saturation ABG pH at Pt Temp ABG pCO2 at Pt Temp ABG pO2 at Pt Temp ABG HCO3 ABG Base Excess (Actual) VBG pH 7.50 H VBG pCO2 36 VBG pO2 44 VBG HCO3 29 H VBG O2 Saturation 73.0 VBG Base Excess 5.9 Sodium 142 Potassium 4.0 Chloride 105 Carbon Dioxide 25 Anion Gap 16 BUN 28 H Creatinine 1.68 H Estim Creat Clear Calc 43.4 Estimated GFR 41 POC Glucose Random Glucose 95 Estimat Average Glucose Hemoglobin A1c % Lactic Acid Lactic Acid F/U @ 2Hr Calcium 8.6 Phosphorus 2.1 L Magnesium 2.0 Iron TIBC % Saturation Unsat Iron Binding Total Bilirubin AST ALT Alkaline Phosphatase Lactate Dehydrogenase Troponin I High Sens C-Reactive Protein B-Natriuretic Peptide Total Protein Albumin 3.1 L Triglycerides Cholesterol LDL Cholesterol, Calc HDL Cholesterol Lipase Procalcitonin TSH Urine Color Urine Appearance Urine pH Ur Specific [place] Urine Protein Urine Glucose (UA) Urine Ketones Urine Blood Urine Nitrite Ur Leukocyte Esterase Urine RBC Urine WBC Ur Squamous Epith Cells Urine Bacteria Hyaline Casts Granular Casts Urine Yeast Urine Eosinophils % U Random Total Protein Urine Creatinine Stool Occult Blood Random Vancomycin 14.3 L Urine Opiates Screen Urine Fentanyl Screen Ur Barbiturates Screen Ur Phencyclidine Scrn Ur Amphetamines Screen U Benzodiazepines Scrn Urine Cocaine Screen U Marijuana (THC) Screen Ethyl Alcohol Lymphocyte Subset Cmmnt Total Lymphocytes % CD3 Cells Absolute CD3 Count % CD4 Cells Absolute CD4 Count CD4/CD8 Ratio % CD8 Cells Absolute CD8 Count Hep C Viral Load Hep C Viral Load Log HIV-1 RNA copies/mL HIV-1 RNA logcopies/mL Influenza Type A (PCR) Influenza Type B (PCR) RSV RNA Qual (PCR) SARS-CoV-2 RNA (RT-PCR) Blood Type Antibody Screen Antibody Identification JENNIFER, Polyspecific Positive JENNIFER Work-up Crossmatch ([facility]) 10/05/23 10/05/23 10/05/23 11:39 17:36 23:23 WBC RBC Hgb Hct MCV MCH MCHC RDW Plt Count MPV Immature Gran % (Auto) Neut % (Auto) Lymph % (Auto) Lewis % (Auto) Eos % (Auto) Baso % (Auto) Lymph # (Auto) Lewis # (Auto) Eos # (Auto) Baso # (Auto) Abs Immat Gran (auto) Absolute Neuts (auto) Absolute Nucleated RBC Nucleated RBC % (auto) Neutrophils % (Manual) Band Neutrophils % Lymphocytes % (Manual) Monocytes % (Manual) Eosinophils % (Manual) Basophils % (Manual) Abs Neuts (Manual) Lymphocytes # (Manual) Monocytes # (Manual) Eosinophils # (Manual) Basophils # (Manual) Nucleated RBCs Smudge Cells Platelet Estimate Large Platelets Plt Morphology Comment RBC Morphology Polychromasia Microcytosis Macrocytosis Target Cells Tear Drop Cells Brady Cells Acanthocytes (Spur) Schistocytes Smear Tech's Comments Smear Path Review Hold Purple Top PT INR APTT O2 Saturation ABG pH at Pt Temp ABG pCO2 at Pt Temp ABG pO2 at Pt Temp ABG HCO3 ABG Base Excess (Actual) VBG pH VBG pCO2 VBG pO2 VBG HCO3 VBG O2 Saturation VBG Base Excess Sodium Potassium Chloride Carbon Dioxide Anion Gap BUN Creatinine Estim Creat Clear Calc Estimated GFR POC Glucose 140 H 216 H 157 H Random Glucose Estimat Average Glucose Hemoglobin A1c % Lactic Acid Lactic Acid F/U @ 2Hr Calcium Phosphorus Magnesium Iron TIBC % Saturation Unsat Iron Binding Total Bilirubin AST ALT Alkaline Phosphatase Lactate Dehydrogenase Troponin I High Sens C-Reactive Protein B-Natriuretic Peptide Total Protein Albumin Triglycerides Cholesterol LDL Cholesterol, Calc HDL Cholesterol Lipase Procalcitonin TSH Urine Color Urine Appearance Urine pH Ur Specific [place] Urine Protein Urine Glucose (UA) Urine Ketones Urine Blood Urine Nitrite Ur Leukocyte Esterase Urine RBC Urine WBC Ur Squamous Epith Cells Urine Bacteria Hyaline Casts Granular Casts Urine Yeast Urine Eosinophils % U Random Total Protein Urine Creatinine Stool Occult Blood Random Vancomycin Urine Opiates Screen Urine Fentanyl Screen Ur Barbiturates Screen Ur Phencyclidine Scrn Ur Amphetamines Screen U Benzodiazepines Scrn Urine Cocaine Screen U Marijuana (THC) Screen Ethyl Alcohol Lymphocyte Subset Cmmnt Total Lymphocytes % CD3 Cells Absolute CD3 Count % CD4 Cells Absolute CD4 Count CD4/CD8 Ratio % CD8 Cells Absolute CD8 Count Hep C Viral Load Hep C Viral Load Log HIV-1 RNA copies/mL HIV-1 RNA logcopies/mL Influenza Type A (PCR) Influenza Type B (PCR) RSV RNA Qual (PCR) SARS-CoV-2 RNA (RT-PCR) Blood Type Antibody Screen Antibody Identification JENNIFER, Polyspecific Positive JENNIFER Work-up Crossmatch ([facility]) 10/06/23 10/06/23 10/06/23 04:06 04:19 04:21 WBC 5.9 RBC 4.21 L Hgb 9.4 L Hct 28.6 L MCV 67.9 L MCH 22.3 L MCHC 32.9 RDW 14.6 Plt Count 88 L MPV TNP Immature Gran % (Auto) 0.3 Neut % (Auto) 80.5 H Lymph % (Auto) 10.7 L Lewis % (Auto) 7.6 Eos % (Auto) 0.7 Baso % (Auto) 0.2 Lymph # (Auto) 0.6 L [place] # (Auto) 0.5 Eos # (Auto) 0.0 Baso # (Auto) 0.0 Abs Immat Gran (auto) 0.02 Absolute Neuts (auto) 4.8 Absolute Nucleated RBC 0.000 Nucleated RBC % (auto) 0.0 Neutrophils % (Manual) Band Neutrophils % Lymphocytes % (Manual) Monocytes % (Manual) Eosinophils % (Manual) Basophils % (Manual) Abs Neuts (Manual) Lymphocytes # (Manual) Monocytes # (Manual) Eosinophils # (Manual) Basophils # (Manual) Nucleated RBCs Smudge Cells Platelet Estimate Large Platelets Plt Morphology Comment RBC Morphology Polychromasia Microcytosis Macrocytosis Target Cells Tear Drop Cells Amonate Cells Acanthocytes (Spur) Schistocytes Smear Tech's Comments Smear Path Review Hold Purple Top PT INR APTT O2 Saturation ABG pH at Pt Temp ABG pCO2 at Pt Temp ABG pO2 at Pt Temp ABG HCO3 ABG Base Excess (Actual) VBG pH 7.42 VBG pCO2 36 VBG pO2 43 VBG HCO3 24 VBG O2 Saturation 69.0 VBG Base Excess 0.3 Sodium Potassium Chloride Carbon Dioxide Anion Gap BUN Creatinine Estim Creat Clear Calc Estimated GFR POC Glucose Random Glucose Estimat Average Glucose Hemoglobin A1c % Lactic Acid Lactic Acid F/U @ 2Hr Calcium Phosphorus Magnesium Iron TIBC % Saturation Unsat Iron Binding Total Bilirubin AST ALT Alkaline Phosphatase Lactate Dehydrogenase Troponin I High Sens C-Reactive Protein B-Natriuretic Peptide Total Protein Albumin Triglycerides Cholesterol LDL Cholesterol, Calc HDL Cholesterol Lipase Procalcitonin TSH Urine Color Urine Appearance Urine pH Ur Specific [place] Urine Protein Urine Glucose (UA) Urine Ketones Urine Blood Urine Nitrite Ur Leukocyte Esterase Urine RBC Urine WBC Ur Squamous Epith Cells Urine Bacteria Hyaline Casts Granular Casts Urine Yeast Urine Eosinophils % U Random Total Protein Urine Creatinine Stool Occult Blood NEGATIVE Random Vancomycin Urine Opiates Screen Urine Fentanyl Screen Ur Barbiturates Screen Ur Phencyclidine Scrn Ur Amphetamines Screen U Benzodiazepines Scrn Urine Cocaine Screen U Marijuana (THC) Screen Ethyl Alcohol Lymphocyte Subset Cmmnt Total Lymphocytes % CD3 Cells Absolute CD3 Count % CD4 Cells Absolute CD4 Count CD4/CD8 Ratio % CD8 Cells Absolute CD8 Count Hep C Viral Load Hep C Viral Load Log HIV-1 RNA copies/mL HIV-1 RNA logcopies/mL Influenza Type A (PCR) Influenza Type B (PCR) RSV RNA Qual (PCR) SARS-CoV-2 RNA (RT-PCR) Blood Type Antibody Screen Antibody Identification JENNIFER, Polyspecific Positive JENNIFER Work-up Crossmatch ([facility]) 10/06/23 10/06/23 10/06/23 04:22 04:27 12:04 WBC RBC Hgb Hct MCV MCH MCHC RDW Plt Count MPV Immature Gran % (Auto) Neut % (Auto) Lymph % (Auto) [place] % (Auto) Eos % (Auto) Baso % (Auto) Lymph # (Auto) [place] # (Auto) Eos # (Auto) Baso # (Auto) Abs Immat Gran (auto) Absolute Neuts (auto) Absolute Nucleated RBC Nucleated RBC % (auto) Neutrophils % (Manual) Band Neutrophils % Lymphocytes % (Manual) Monocytes % (Manual) Eosinophils % (Manual) Basophils % (Manual) Abs Neuts (Manual) Lymphocytes # (Manual) Monocytes # (Manual) Eosinophils # (Manual) Basophils # (Manual) Nucleated RBCs Smudge Cells Platelet Estimate Large Platelets Plt Morphology Comment RBC Morphology Polychromasia Microcytosis Macrocytosis Target Cells Tear Drop Cells Brady Cells Acanthocytes (Spur) Schistocytes Smear Tech's Comments Smear Path Review Hold Purple Top SEE NOTE PT INR APTT O2 Saturation ABG pH at Pt Temp ABG pCO2 at Pt Temp ABG pO2 at Pt Temp ABG HCO3 ABG Base Excess (Actual) VBG pH VBG pCO2 VBG pO2 VBG HCO3 VBG O2 Saturation VBG Base Excess Sodium 138 Potassium 3.4 Chloride 102 Carbon Dioxide 22 Anion Gap 17 BUN 31 H Creatinine 2.16 H Estim Creat Clear Calc 33.8 Estimated GFR 31 POC Glucose 160 H Random Glucose 166 H Estimat Average Glucose Hemoglobin A1c % Lactic Acid Lactic Acid F/U @ 2Hr Calcium 9.1 Phosphorus 2.5 L Magnesium 2.2 Iron TIBC % Saturation Unsat Iron Binding Total Bilirubin 0.7 AST 38 H ALT 24 Alkaline Phosphatase 61 Lactate Dehydrogenase Troponin I High Sens C-Reactive Protein B-Natriuretic Peptide Total Protein 7.5 Albumin 4.3 Triglycerides Cholesterol LDL Cholesterol, Calc HDL Cholesterol Lipase Procalcitonin TSH Urine Color Urine Appearance Urine pH Ur Specific [place] Urine Protein Urine Glucose (UA) Urine Ketones Urine Blood Urine Nitrite Ur Leukocyte Esterase Urine RBC Urine WBC Ur Squamous Epith Cells Urine Bacteria Hyaline Casts Granular Casts Urine Yeast Urine Eosinophils % U Random Total Protein Urine Creatinine Stool Occult Blood Random Vancomycin Urine Opiates Screen Urine Fentanyl Screen Ur Barbiturates Screen Ur Phencyclidine Scrn Ur Amphetamines Screen U Benzodiazepines Scrn Urine Cocaine Screen U Marijuana (THC) Screen Ethyl Alcohol Lymphocyte Subset Cmmnt Total Lymphocytes % CD3 Cells Absolute CD3 Count % CD4 Cells Absolute CD4 Count CD4/CD8 Ratio % CD8 Cells Absolute CD8 Count Hep C Viral Load Hep C Viral Load Log HIV-1 RNA copies/mL HIV-1 RNA logcopies/mL Influenza Type A (PCR) Influenza Type B (PCR) RSV RNA Qual (PCR) SARS-CoV-2 RNA (RT-PCR) Blood Type Antibody Screen Antibody Identification JENNIFER, Polyspecific Positive JENNIFER Work-up Crossmatch ([facility]) 10/06/23 10/06/23 10/06/23 13:25 17:00 23:42 WBC RBC Hgb Hct MCV MCH MCHC RDW Plt Count MPV Immature Gran % (Auto) Neut % (Auto) Lymph % (Auto) Lewis % (Auto) Eos % (Auto) Baso % (Auto) Lymph # (Auto) [place] # (Auto) Eos # (Auto) Baso # (Auto) Abs Immat Gran (auto) Absolute Neuts (auto) Absolute Nucleated RBC Nucleated RBC % (auto) Neutrophils % (Manual) Band Neutrophils % Lymphocytes % (Manual) Monocytes % (Manual) Eosinophils % (Manual) Basophils % (Manual) Abs Neuts (Manual) Lymphocytes # (Manual) Monocytes # (Manual) Eosinophils # (Manual) Basophils # (Manual) Nucleated RBCs Smudge Cells Platelet Estimate Large Platelets Plt Morphology Comment RBC Morphology Polychromasia Microcytosis Macrocytosis Target Cells Tear Drop Cells Brady Cells Acanthocytes (Spur) Schistocytes Smear Tech's Comments Smear Path Review Hold Purple Top PT INR APTT O2 Saturation ABG pH at Pt Temp ABG pCO2 at Pt Temp ABG pO2 at Pt Temp ABG HCO3 ABG Base Excess (Actual) VBG pH 7.41 VBG pCO2 40 VBG pO2 48 VBG HCO3 26 VBG O2 Saturation 74.0 VBG Base Excess 1.9 Sodium Potassium Chloride Carbon Dioxide Anion Gap BUN Creatinine Estim Creat Clear Calc Estimated GFR POC Glucose 166 H 194 H Random Glucose Estimat Average Glucose Hemoglobin A1c % Lactic Acid Lactic Acid F/U @ 2Hr Calcium Phosphorus Magnesium Iron TIBC % Saturation Unsat Iron Binding Total Bilirubin AST ALT Alkaline Phosphatase Lactate Dehydrogenase Troponin I High Sens C-Reactive Protein B-Natriuretic Peptide Total Protein Albumin Triglycerides Cholesterol LDL Cholesterol, Calc HDL Cholesterol Lipase Procalcitonin TSH Urine Color Urine Appearance Urine pH Ur Specific [place] Urine Protein Urine Glucose (UA) Urine Ketones Urine Blood Urine Nitrite Ur Leukocyte Esterase Urine RBC Urine WBC Ur Squamous Epith Cells Urine Bacteria Hyaline Casts Granular Casts Urine Yeast Urine Eosinophils % U Random Total Protein Urine Creatinine Stool Occult Blood Random Vancomycin Urine Opiates Screen Urine Fentanyl Screen Ur Barbiturates Screen Ur Phencyclidine Scrn Ur Amphetamines Screen U Benzodiazepines Scrn Urine Cocaine Screen U Marijuana (THC) Screen Ethyl Alcohol Lymphocyte Subset Cmmnt Total Lymphocytes % CD3 Cells Absolute CD3 Count % CD4 Cells Absolute CD4 Count CD4/CD8 Ratio % CD8 Cells Absolute CD8 Count Hep C Viral Load Hep C Viral Load Log HIV-1 RNA copies/mL HIV-1 RNA logcopies/mL Influenza Type A (PCR) Influenza Type B (PCR) RSV RNA Qual (PCR) SARS-CoV-2 RNA (RT-PCR) Blood Type Antibody Screen Antibody Identification JENNIFER, Polyspecific Positive JENNIFER Work-up Crossmatch ([facility]) 10/07/23 10/07/23 10/07/23 02:10 05:33 05:34 WBC 7.8 RBC 4.80 Hgb 10.7 L Hct 32.1 L MCV 66.9 L MCH 22.3 L MCHC 33.3 RDW 14.3 Plt Count 123 L D MPV Not Reportable Immature Gran % (Auto) Cancelled Neut % (Auto) Cancelled Lymph % (Auto) Cancelled Lewis % (Auto) Cancelled Eos % (Auto) Cancelled Baso % (Auto) Cancelled Lymph # (Auto) Cancelled Lewis # (Auto) Cancelled Eos # (Auto) Cancelled Baso # (Auto) Cancelled Abs Immat Gran (auto) Cancelled Absolute Neuts (auto) Cancelled Absolute Nucleated RBC 0.020 H Nucleated RBC % (auto) 0.3 H Neutrophils % (Manual) 58 Band Neutrophils % 23 H Lymphocytes % (Manual) 9 L Monocytes % (Manual) 9 Eosinophils % (Manual) Basophils % (Manual) 1 Abs Neuts (Manual) 6.3 Lymphocytes # (Manual) 0.7 L Monocytes # (Manual) 0.7 Eosinophils # (Manual) Basophils # (Manual) 0.1 Nucleated RBCs Smudge Cells Platelet Estimate SLIGHTLY DECREASED Large Platelets PRESENT Plt Morphology Comment NORMAL RBC Morphology NOTED Polychromasia Microcytosis 1+ (5-14) Macrocytosis Target Cells 1+ (5-14) Tear Drop Cells Amonate Cells 2+ (3-5) Acanthocytes (Spur) Schistocytes 1+ (0-2) Smear Tech's Comments Smear Path Review Hold Purple Top PT INR APTT O2 Saturation ABG pH at Pt Temp ABG pCO2 at Pt Temp ABG pO2 at Pt Temp ABG HCO3 ABG Base Excess (Actual) VBG pH 7.43 VBG pCO2 35 VBG pO2 42 VBG HCO3 24 VBG O2 Saturation 64.0 VBG Base Excess 0.5 Sodium 142 140 Potassium 4.3 D 4.5 Chloride 101 101 Carbon Dioxide 22 20 L Anion Gap 23 H 24 H BUN 50 H 55 H Creatinine 2.92 H 3.03 H Estim Creat Clear Calc 25.8 22.3 Estimated GFR 22 21 POC Glucose Random Glucose 169 H 164 H Estimat Average Glucose Hemoglobin A1c % Lactic Acid Lactic Acid F/U @ 2Hr Calcium 10.1 D 9.8 Phosphorus 3.8 Magnesium 2.6 Iron TIBC % Saturation Unsat Iron Binding Total Bilirubin AST ALT Alkaline Phosphatase Lactate Dehydrogenase Troponin I High Sens C-Reactive Protein B-Natriuretic Peptide Total Protein Albumin 4.3 Triglycerides Cholesterol LDL Cholesterol, Calc HDL Cholesterol Lipase Procalcitonin TSH Urine Color Urine Appearance Urine pH Ur Specific [place] Urine Protein Urine Glucose (UA) Urine Ketones Urine Blood Urine Nitrite Ur Leukocyte Esterase Urine RBC Urine WBC Ur Squamous Epith Cells Urine Bacteria Hyaline Casts Granular Casts Urine Yeast Urine Eosinophils % U Random Total Protein Urine Creatinine Stool Occult Blood Random Vancomycin Urine Opiates Screen Urine Fentanyl Screen Ur Barbiturates Screen Ur Phencyclidine Scrn Ur Amphetamines Screen U Benzodiazepines Scrn Urine Cocaine Screen U Marijuana (THC) Screen Ethyl Alcohol Lymphocyte Subset Cmmnt Total Lymphocytes % CD3 Cells Absolute CD3 Count % CD4 Cells Absolute CD4 Count CD4/CD8 Ratio % CD8 Cells Absolute CD8 Count Hep C Viral Load Hep C Viral Load Log HIV-1 RNA copies/mL HIV-1 RNA logcopies/mL Influenza Type A (PCR) Influenza Type B (PCR) RSV RNA Qual (PCR) SARS-CoV-2 RNA (RT-PCR) Blood Type Antibody Screen Antibody Identification JENNIFER, Polyspecific Positive JENNIFER Work-up Crossmatch ([facility]G) 10/07/23 10/07/23 10/07/23 05:39 11:50 17:29 WBC RBC Hgb Hct MCV MCH MCHC RDW Plt Count MPV Immature Gran % (Auto) Neut % (Auto) Lymph % (Auto) Lewis % (Auto) Eos % (Auto) Baso % (Auto) Lymph # (Auto) Lewis # (Auto) Eos # (Auto) Baso # (Auto) Abs Immat Gran (auto) Absolute Neuts (auto) Absolute Nucleated RBC Nucleated RBC % (auto) Neutrophils % (Manual) Band Neutrophils % Lymphocytes % (Manual) Monocytes % (Manual) Eosinophils % (Manual) Basophils % (Manual) Abs Neuts (Manual) Lymphocytes # (Manual) Monocytes # (Manual) Eosinophils # (Manual) Basophils # (Manual) Nucleated RBCs Smudge Cells Platelet Estimate Large Platelets Plt Morphology Comment RBC Morphology Polychromasia Microcytosis Macrocytosis Target Cells Tear Drop Cells Brady Cells Acanthocytes (Spur) Schistocytes Smear Tech's Comments Smear Path Review Hold Purple Top PT INR APTT O2 Saturation ABG pH at Pt Temp ABG pCO2 at Pt Temp ABG pO2 at Pt Temp ABG HCO3 ABG Base Excess (Actual) VBG pH VBG pCO2 VBG pO2 VBG HCO3 VBG O2 Saturation VBG Base Excess Sodium Potassium Chloride Carbon Dioxide Anion Gap BUN Creatinine Estim Creat Clear Calc Estimated GFR POC Glucose 166 H 163 H 134 H Random Glucose Estimat Average Glucose Hemoglobin A1c % Lactic Acid Lactic Acid F/U @ 2Hr Calcium Phosphorus Magnesium Iron TIBC % Saturation Unsat Iron Binding Total Bilirubin AST ALT Alkaline Phosphatase Lactate Dehydrogenase Troponin I High Sens C-Reactive Protein B-Natriuretic Peptide Total Protein Albumin Triglycerides Cholesterol LDL Cholesterol, Calc HDL Cholesterol Lipase Procalcitonin TSH Urine Color Urine Appearance Urine pH Ur Specific [place] Urine Protein Urine Glucose (UA) Urine Ketones Urine Blood Urine Nitrite Ur Leukocyte Esterase Urine RBC Urine WBC Ur Squamous Epith Cells Urine Bacteria Hyaline Casts Granular Casts Urine Yeast Urine Eosinophils % U Random Total Protein Urine Creatinine Stool Occult Blood Random Vancomycin Urine Opiates Screen Urine Fentanyl Screen Ur Barbiturates Screen Ur Phencyclidine Scrn Ur Amphetamines Screen U Benzodiazepines Scrn Urine Cocaine Screen U Marijuana (THC) Screen Ethyl Alcohol Lymphocyte Subset Cmmnt Total Lymphocytes % CD3 Cells Absolute CD3 Count % CD4 Cells Absolute CD4 Count CD4/CD8 Ratio % CD8 Cells Absolute CD8 Count Hep C Viral Load Hep C Viral Load Log HIV-1 RNA copies/mL HIV-1 RNA logcopies/mL Influenza Type A (PCR) Influenza Type B (PCR) RSV RNA Qual (PCR) SARS-CoV-2 RNA (RT-PCR) Blood Type Antibody Screen Antibody Identification JENNIFER, Polyspecific Positive JENNIFER Work-up Crossmatch ([facility]G) 10/08/23 10/08/23 10/08/23 00:31 04:38 04:43 WBC 10.9 H RBC 4.94 Hgb 11.0 L Hct 32.7 L MCV 66.2 L MCH 22.3 L MCHC 33.6 RDW 14.5 Plt Count 212 D MPV 11.1 Immature Gran % (Auto) 0.9 H Neut % (Auto) 77.9 H Lymph % (Auto) 7.4 L Lewis % (Auto) 13.0 H Eos % (Auto) 0.5 Baso % (Auto) 0.3 Lymph # (Auto) 0.8 L Lewis # (Auto) 1.4 H Eos # (Auto) 0.1 Baso # (Auto) 0.0 Abs Immat Gran (auto) 0.10 H Absolute Neuts (auto) 8.5 H Absolute Nucleated RBC 0.020 H Nucleated RBC % (auto) 0.2 Neutrophils % (Manual) Band Neutrophils % Lymphocytes % (Manual) Monocytes % (Manual) Eosinophils % (Manual) Basophils % (Manual) Abs Neuts (Manual) Lymphocytes # (Manual) Monocytes # (Manual) Eosinophils # (Manual) Basophils # (Manual) Nucleated RBCs Smudge Cells Platelet Estimate Large Platelets Plt Morphology Comment RBC Morphology Polychromasia Microcytosis Macrocytosis Target Cells Tear Drop Cells Amonate Cells Acanthocytes (Spur) Schistocytes Smear Tech's Comments VERIFIED Smear Path Review Hold Purple Top PT INR APTT O2 Saturation ABG pH at Pt Temp ABG pCO2 at Pt Temp ABG pO2 at Pt Temp ABG HCO3 ABG Base Excess (Actual) VBG pH 7.39 VBG pCO2 34 VBG pO2 46 VBG HCO3 21 L VBG O2 Saturation 69.0 VBG Base Excess -3.1 Sodium 142 Potassium 4.8 Chloride 104 Carbon Dioxide 19 L Anion Gap 24 H BUN 93 H Creatinine 3.92 H Estim Creat Clear Calc 17.2 Estimated GFR 16 POC Glucose 159 H Random Glucose 174 H Estimat Average Glucose Hemoglobin A1c % Lactic Acid Lactic Acid F/U @ 2Hr Calcium 10.2 Phosphorus 4.8 H Magnesium 3.0 H Iron TIBC % Saturation Unsat Iron Binding Total Bilirubin 0.7 AST 33 ALT 21 Alkaline Phosphatase 70 Lactate Dehydrogenase Troponin I High Sens C-Reactive Protein B-Natriuretic Peptide Total Protein 8.7 H Albumin 4.2 Triglycerides Cholesterol LDL Cholesterol, Calc HDL Cholesterol Lipase Procalcitonin TSH Urine Color Urine Appearance Urine pH Ur Specific [place] Urine Protein Urine Glucose (UA) Urine Ketones Urine Blood Urine Nitrite Ur Leukocyte Esterase Urine RBC Urine WBC Ur Squamous Epith Cells Urine Bacteria Hyaline Casts Granular Casts Urine Yeast Urine Eosinophils % U Random Total Protein Urine Creatinine Stool Occult Blood Random Vancomycin Urine Opiates Screen Urine Fentanyl Screen Ur Barbiturates Screen Ur Phencyclidine Scrn Ur Amphetamines Screen U Benzodiazepines Scrn Urine Cocaine Screen U Marijuana (THC) Screen Ethyl Alcohol Lymphocyte Subset Cmmnt Total Lymphocytes % CD3 Cells Absolute CD3 Count % CD4 Cells Absolute CD4 Count CD4/CD8 Ratio % CD8 Cells Absolute CD8 Count Hep C Viral Load Hep C Viral Load Log HIV-1 RNA copies/mL HIV-1 RNA logcopies/mL Influenza Type A (PCR) Influenza Type B (PCR) RSV RNA Qual (PCR) SARS-CoV-2 RNA (RT-PCR) Blood Type Antibody Screen Antibody Identification JENNIFER, Polyspecific Positive JENNIFER Work-up Crossmatch ([facility]) 10/08/23 10/08/23 10/08/23 11:05 17:06 23:53 WBC RBC Hgb Hct MCV MCH MCHC RDW Plt Count MPV Immature Gran % (Auto) Neut % (Auto) Lymph % (Auto) Lewis % (Auto) Eos % (Auto) Baso % (Auto) Lymph # (Auto) Lewis # (Auto) Eos # (Auto) Baso # (Auto) Abs Immat Gran (auto) Absolute Neuts (auto) Absolute Nucleated RBC Nucleated RBC % (auto) Neutrophils % (Manual) Band Neutrophils % Lymphocytes % (Manual) Monocytes % (Manual) Eosinophils % (Manual) Basophils % (Manual) Abs Neuts (Manual) Lymphocytes # (Manual) Monocytes # (Manual) Eosinophils # (Manual) Basophils # (Manual) Nucleated RBCs Smudge Cells Platelet Estimate Large Platelets Plt Morphology Comment RBC Morphology Polychromasia Microcytosis Macrocytosis Target Cells Tear Drop Cells Brady Cells Acanthocytes (Spur) Schistocytes Smear Tech's Comments Smear Path Review Hold Purple Top PT INR APTT O2 Saturation ABG pH at Pt Temp ABG pCO2 at Pt Temp ABG pO2 at Pt Temp ABG HCO3 ABG Base Excess (Actual) VBG pH VBG pCO2 VBG pO2 VBG HCO3 VBG O2 Saturation VBG Base Excess Sodium Potassium Chloride Carbon Dioxide Anion Gap BUN Creatinine Estim Creat Clear Calc Estimated GFR POC Glucose 179 H 156 H 169 H Random Glucose Estimat Average Glucose Hemoglobin A1c % Lactic Acid Lactic Acid F/U @ 2Hr Calcium Phosphorus Magnesium Iron TIBC % Saturation Unsat Iron Binding Total Bilirubin AST ALT Alkaline Phosphatase Lactate Dehydrogenase Troponin I High Sens C-Reactive Protein B-Natriuretic Peptide Total Protein Albumin Triglycerides Cholesterol LDL Cholesterol, Calc HDL Cholesterol Lipase Procalcitonin TSH Urine Color Urine Appearance Urine pH Ur Specific [place] Urine Protein Urine Glucose (UA) Urine Ketones Urine Blood Urine Nitrite Ur Leukocyte Esterase Urine RBC Urine WBC Ur Squamous Epith Cells Urine Bacteria Hyaline Casts Granular Casts Urine Yeast Urine Eosinophils % U Random Total Protein Urine Creatinine Stool Occult Blood Random Vancomycin Urine Opiates Screen Urine Fentanyl Screen Ur Barbiturates Screen Ur Phencyclidine Scrn Ur Amphetamines Screen U Benzodiazepines Scrn Urine Cocaine Screen U Marijuana (THC) Screen Ethyl Alcohol Lymphocyte Subset Cmmnt Total Lymphocytes % CD3 Cells Absolute CD3 Count % CD4 Cells Absolute CD4 Count CD4/CD8 Ratio % CD8 Cells Absolute CD8 Count Hep C Viral Load Hep C Viral Load Log HIV-1 RNA copies/mL HIV-1 RNA logcopies/mL Influenza Type A (PCR) Influenza Type B (PCR) RSV RNA Qual (PCR) SARS-CoV-2 RNA (RT-PCR) Blood Type Antibody Screen Antibody Identification JENNIFER, Polyspecific Positive JENNIFER Work-up Crossmatch ([facility]) 10/09/23 10/09/23 10/09/23 04:40 04:47 07:26 WBC 12.9 H RBC 4.75 Hgb 10.6 L Hct 31.6 L MCV 66.5 L MCH 22.3 L MCHC 33.5 RDW 14.6 Plt Count 256 MPV 10.8 Immature Gran % (Auto) Cancelled Neut % (Auto) Cancelled Lymph % (Auto) Cancelled Lewis % (Auto) Cancelled Eos % (Auto) Cancelled Baso % (Auto) Cancelled Lymph # (Auto) Cancelled Lewis # (Auto) Cancelled Eos # (Auto) Cancelled Baso # (Auto) Cancelled Abs Immat Gran (auto) Cancelled Absolute Neuts (auto) Cancelled Absolute Nucleated RBC 0.000 Nucleated RBC % (auto) 0.0 Neutrophils % (Manual) 73 Band Neutrophils % 12 H Lymphocytes % (Manual) 6 L Monocytes % (Manual) 6 Eosinophils % (Manual) 3 Basophils % (Manual) Abs Neuts (Manual) 11.0 H Lymphocytes # (Manual) 0.8 L Monocytes # (Manual) 0.8 Eosinophils # (Manual) 0.4 Basophils # (Manual) Nucleated RBCs 1 H Smudge Cells PRESENT Platelet Estimate NORMAL Large Platelets PRESENT Plt Morphology Comment NOTED RBC Morphology NOTED Polychromasia 1+ (0-2) Microcytosis Macrocytosis 1+ (5-14) Target Cells 1+ (5-14) Tear Drop Cells 2+ (3-5) Amonate Cells 1+ (0-2) Acanthocytes (Spur) 1+ (0-2) Schistocytes Smear Tech's Comments Smear Path Review Hold Purple Top PT INR APTT O2 Saturation ABG pH at Pt Temp ABG pCO2 at Pt Temp ABG pO2 at Pt Temp ABG HCO3 ABG Base Excess (Actual) VBG pH 7.31 L VBG pCO2 36 VBG pO2 46 VBG HCO3 18 L VBG O2 Saturation 70.0 VBG Base Excess -6.5 Sodium 142 Potassium 5.0 Chloride 105 Carbon Dioxide 18 L Anion Gap 24 H BUN 115 H Creatinine 4.12 H* Estim Creat Clear Calc 15.8 Estimated GFR 15 POC Glucose 148 H Random Glucose 151 H Estimat Average Glucose Hemoglobin A1c % Lactic Acid Lactic Acid F/U @ 2Hr Calcium 9.9 Phosphorus 6.4 H Magnesium 3.5 H* Iron TIBC % Saturation Unsat Iron Binding Total Bilirubin 0.7 AST 26 ALT 16 Alkaline Phosphatase 62 Lactate Dehydrogenase Troponin I High Sens C-Reactive Protein B-Natriuretic Peptide Total Protein 8.5 H Albumin 3.7 Triglycerides Cholesterol LDL Cholesterol, Calc HDL Cholesterol Lipase Procalcitonin TSH Urine Color Urine Appearance Urine pH Ur Specific [place] Urine Protein Urine Glucose (UA) Urine Ketones Urine Blood Urine Nitrite Ur Leukocyte Esterase Urine RBC Urine WBC Ur Squamous Epith Cells Urine Bacteria Hyaline Casts Granular Casts Urine Yeast Urine Eosinophils % U Random Total Protein Urine Creatinine Stool Occult Blood Random Vancomycin Urine Opiates Screen Urine Fentanyl Screen Ur Barbiturates Screen Ur Phencyclidine Scrn Ur Amphetamines Screen U Benzodiazepines Scrn Urine Cocaine Screen U Marijuana (THC) Screen Ethyl Alcohol Lymphocyte Subset Cmmnt Total Lymphocytes % CD3 Cells Absolute CD3 Count % CD4 Cells Absolute CD4 Count CD4/CD8 Ratio % CD8 Cells Absolute CD8 Count Hep C Viral Load Hep C Viral Load Log HIV-1 RNA copies/mL HIV-1 RNA logcopies/mL Influenza Type A (PCR) Influenza Type B (PCR) RSV RNA Qual (PCR) SARS-CoV-2 RNA (RT-PCR) Blood Type Antibody Screen Antibody Identification JENNIFER, Polyspecific Positive JENNIFER Work-up Crossmatch ([facility]) 10/09/23 10/09/23 10/10/23 12:05 17:41 00:13 WBC RBC Hgb Hct MCV MCH MCHC RDW Plt Count MPV Immature Gran % (Auto) Neut % (Auto) Lymph % (Auto) Lewis % (Auto) Eos % (Auto) Baso % (Auto) Lymph # (Auto) Lewis # (Auto) Eos # (Auto) Baso # (Auto) Abs Immat Gran (auto) Absolute Neuts (auto) Absolute Nucleated RBC Nucleated RBC % (auto) Neutrophils % (Manual) Band Neutrophils % Lymphocytes % (Manual) Monocytes % (Manual) Eosinophils % (Manual) Basophils % (Manual) Abs Neuts (Manual) Lymphocytes # (Manual) Monocytes # (Manual) Eosinophils # (Manual) Basophils # (Manual) Nucleated RBCs Smudge Cells Platelet Estimate Large Platelets Plt Morphology Comment RBC Morphology Polychromasia Microcytosis Macrocytosis Target Cells Tear Drop Cells Brady Cells Acanthocytes (Spur) Schistocytes Smear Tech's Comments Smear Path Review Hold Purple Top PT INR APTT O2 Saturation ABG pH at Pt Temp ABG pCO2 at Pt Temp ABG pO2 at Pt Temp ABG HCO3 ABG Base Excess (Actual) VBG pH VBG pCO2 VBG pO2 VBG HCO3 VBG O2 Saturation VBG Base Excess Sodium Potassium Chloride Carbon Dioxide Anion Gap BUN Creatinine Estim Creat Clear Calc Estimated GFR POC Glucose 154 H 129 H 201 H Random Glucose Estimat Average Glucose Hemoglobin A1c % Lactic Acid Lactic Acid F/U @ 2Hr Calcium Phosphorus Magnesium Iron TIBC % Saturation Unsat Iron Binding Total Bilirubin AST ALT Alkaline Phosphatase Lactate Dehydrogenase Troponin I High Sens C-Reactive Protein B-Natriuretic Peptide Total Protein Albumin Triglycerides Cholesterol LDL Cholesterol, Calc HDL Cholesterol Lipase Procalcitonin TSH Urine Color Urine Appearance Urine pH Ur Specific [place] Urine Protein Urine Glucose (UA) Urine Ketones Urine Blood Urine Nitrite Ur Leukocyte Esterase Urine RBC Urine WBC Ur Squamous Epith Cells Urine Bacteria Hyaline Casts Granular Casts Urine Yeast Urine Eosinophils % U Random Total Protein Urine Creatinine Stool Occult Blood Random Vancomycin Urine Opiates Screen Urine Fentanyl Screen Ur Barbiturates Screen Ur Phencyclidine Scrn Ur Amphetamines Screen U Benzodiazepines Scrn Urine Cocaine Screen U Marijuana (THC) Screen Ethyl Alcohol Lymphocyte Subset Cmmnt Total Lymphocytes % CD3 Cells Absolute CD3 Count % CD4 Cells Absolute CD4 Count CD4/CD8 Ratio % CD8 Cells Absolute CD8 Count Hep C Viral Load Hep C Viral Load Log HIV-1 RNA copies/mL HIV-1 RNA logcopies/mL Influenza Type A (PCR) Influenza Type B (PCR) RSV RNA Qual (PCR) SARS-CoV-2 RNA (RT-PCR) Blood Type Antibody Screen Antibody Identification JENNIFER, Polyspecific Positive JENNIFER Work-up Crossmatch ([facility]G) 10/10/23 10/10/23 10/10/23 04:28 04:29 11:46 WBC 14.3 H RBC 4.68 Hgb 10.4 L Hct 30.7 L MCV 65.6 L MCH 22.2 L MCHC 33.9 RDW 14.8 Plt Count 262 MPV 11.2 Immature Gran % (Auto) 1.5 H Neut % (Auto) 82.1 H Lymph % (Auto) 4.5 L Lewis % (Auto) 10.5 Eos % (Auto) 1.2 Baso % (Auto) 0.2 Lymph # (Auto) 0.6 L Lewis # (Auto) 1.5 H Eos # (Auto) 0.2 Baso # (Auto) 0.0 Abs Immat Gran (auto) 0.22 H Absolute Neuts (auto) 11.7 H Absolute Nucleated RBC 0.040 H Nucleated RBC % (auto) 0.3 H Neutrophils % (Manual) Band Neutrophils % Lymphocytes % (Manual) Monocytes % (Manual) Eosinophils % (Manual) Basophils % (Manual) Abs Neuts (Manual) Lymphocytes # (Manual) Monocytes # (Manual) Eosinophils # (Manual) Basophils # (Manual) Nucleated RBCs Smudge Cells Platelet Estimate Large Platelets Plt Morphology Comment RBC Morphology Polychromasia Microcytosis Macrocytosis Target Cells Tear Drop Cells Brady Cells Acanthocytes (Spur) Schistocytes Smear Tech's Comments Smear Path Review Hold Purple Top PT INR APTT O2 Saturation ABG pH at Pt Temp ABG pCO2 at Pt Temp ABG pO2 at Pt Temp ABG HCO3 ABG Base Excess (Actual) VBG pH 7.34 VBG pCO2 34 VBG pO2 51 VBG HCO3 18 L VBG O2 Saturation 79.0 VBG Base Excess -6.0 Sodium 139 Potassium 5.0 Chloride 106 Carbon Dioxide 19 L Anion Gap 19 BUN 116 H Creatinine 3.84 H Estim Creat Clear Calc 18.5 Estimated GFR 16 POC Glucose 201 H Random Glucose 177 H Estimat Average Glucose Hemoglobin A1c % Lactic Acid Lactic Acid F/U @ 2Hr Calcium 9.6 Phosphorus 4.6 H Magnesium 3.4 H Iron TIBC % Saturation Unsat Iron Binding Total Bilirubin AST ALT Alkaline Phosphatase Lactate Dehydrogenase Troponin I High Sens C-Reactive Protein B-Natriuretic Peptide Total Protein Albumin 3.4 L Triglycerides Cholesterol LDL Cholesterol, Calc HDL Cholesterol Lipase Procalcitonin TSH Urine Color Urine Appearance Urine pH Ur Specific [place] Urine Protein Urine Glucose (UA) Urine Ketones Urine Blood Urine Nitrite Ur Leukocyte Esterase Urine RBC Urine WBC Ur Squamous Epith Cells Urine Bacteria Hyaline Casts Granular Casts Urine Yeast Urine Eosinophils % U Random Total Protein Urine Creatinine Stool Occult Blood Random Vancomycin Urine Opiates Screen Urine Fentanyl Screen Ur Barbiturates Screen Ur Phencyclidine Scrn Ur Amphetamines Screen U Benzodiazepines Scrn Urine Cocaine Screen U Marijuana (THC) Screen Ethyl Alcohol Lymphocyte Subset Cmmnt Total Lymphocytes % CD3 Cells Absolute CD3 Count % CD4 Cells Absolute CD4 Count CD4/CD8 Ratio % CD8 Cells Absolute CD8 Count Hep C Viral Load Hep C Viral Load Log HIV-1 RNA copies/mL HIV-1 RNA logcopies/mL Influenza Type A (PCR) Influenza Type B (PCR) RSV RNA Qual (PCR) SARS-CoV-2 RNA (RT-PCR) Blood Type Antibody Screen Antibody Identification JENNIFER, Polyspecific Positive JENNIFER Work-up Crossmatch ([facility]G) 10/10/23 10/10/23 10/11/23 17:47 23:46 04:21 WBC 20.7 H RBC 4.69 Hgb 10.5 L Hct 30.7 L MCV 65.5 L MCH 22.4 L MCHC 34.2 RDW 15.0 Plt Count 279 MPV 10.8 Immature Gran % (Auto) 1.5 H Neut % (Auto) 86.8 H Lymph % (Auto) 3.4 L Lewis % (Auto) 7.3 Eos % (Auto) 0.6 Baso % (Auto) 0.4 Lymph # (Auto) 0.7 L Lewis # (Auto) 1.5 H Eos # (Auto) 0.1 Baso # (Auto) 0.1 Abs Immat Gran (auto) 0.32 H Absolute Neuts (auto) 18.0 H Absolute Nucleated RBC 0.050 H Nucleated RBC % (auto) 0.2 Neutrophils % (Manual) Band Neutrophils % Lymphocytes % (Manual) Monocytes % (Manual) Eosinophils % (Manual) Basophils % (Manual) Abs Neuts (Manual) Lymphocytes # (Manual) Monocytes # (Manual) Eosinophils # (Manual) Basophils # (Manual) Nucleated RBCs Smudge Cells Platelet Estimate Large Platelets Plt Morphology Comment RBC Morphology Polychromasia Microcytosis Macrocytosis Target Cells Tear Drop Cells Amonate Cells Acanthocytes (Spur) Schistocytes Smear Tech's Comments VERIFIED Smear Path Review Hold Purple Top PT INR APTT O2 Saturation ABG pH at Pt Temp ABG pCO2 at Pt Temp ABG pO2 at Pt Temp ABG HCO3 ABG Base Excess (Actual) VBG pH VBG pCO2 VBG pO2 VBG HCO3 VBG O2 Saturation VBG Base Excess Sodium 138 Potassium 6.4 H* D Chloride 105 Carbon Dioxide 19 L Anion Gap 20 BUN 120 H Creatinine 3.74 H Estim Creat Clear Calc 18.3 Estimated GFR 16 POC Glucose 188 H 215 H Random Glucose 269 H Estimat Average Glucose Hemoglobin A1c % Lactic Acid Lactic Acid F/U @ 2Hr Calcium 9.9 Phosphorus 6.1 H Magnesium 3.3 H Iron TIBC % Saturation Unsat Iron Binding Total Bilirubin AST ALT Alkaline Phosphatase Lactate Dehydrogenase Troponin I High Sens C-Reactive Protein B-Natriuretic Peptide Total Protein Albumin 3.2 L Triglycerides Cholesterol LDL Cholesterol, Calc HDL Cholesterol Lipase Procalcitonin TSH Urine Color Urine Appearance Urine pH Ur Specific [place] Urine Protein Urine Glucose (UA) Urine Ketones Urine Blood Urine Nitrite Ur Leukocyte Esterase Urine RBC Urine WBC Ur Squamous Epith Cells Urine Bacteria Hyaline Casts Granular Casts Urine Yeast Urine Eosinophils % U Random Total Protein Urine Creatinine Stool Occult Blood Random Vancomycin Urine Opiates Screen Urine Fentanyl Screen Ur Barbiturates Screen Ur Phencyclidine Scrn Ur Amphetamines Screen U Benzodiazepines Scrn Urine Cocaine Screen U Marijuana (THC) Screen Ethyl Alcohol Lymphocyte Subset Cmmnt Total Lymphocytes % CD3 Cells Absolute CD3 Count % CD4 Cells Absolute CD4 Count CD4/CD8 Ratio % CD8 Cells Absolute CD8 Count Hep C Viral Load Hep C Viral Load Log HIV-1 RNA copies/mL HIV-1 RNA logcopies/mL Influenza Type A (PCR) Influenza Type B (PCR) RSV RNA Qual (PCR) SARS-CoV-2 RNA (RT-PCR) Blood Type Antibody Screen Antibody Identification JENNIFER, Polyspecific Positive JENNIFER Work-up Crossmatch (AHG) 10/11/23 10/11/23 10/11/23 04:25 08:48 12:06 WBC RBC Hgb Hct MCV MCH MCHC RDW Plt Count MPV Immature Gran % (Auto) Neut % (Auto) Lymph % (Auto) Lewis % (Auto) Eos % (Auto) Baso % (Auto) Lymph # (Auto) Lewis # (Auto) Eos # (Auto) Baso # (Auto) Abs Immat Gran (auto) Absolute Neuts (auto) Absolute Nucleated RBC Nucleated RBC % (auto) Neutrophils % (Manual) Band Neutrophils % Lymphocytes % (Manual) Monocytes % (Manual) Eosinophils % (Manual) Basophils % (Manual) Abs Neuts (Manual) Lymphocytes # (Manual) Monocytes # (Manual) Eosinophils # (Manual) Basophils # (Manual) Nucleated RBCs Smudge Cells Platelet Estimate Large Platelets Plt Morphology Comment RBC Morphology Polychromasia Microcytosis Macrocytosis Target Cells Tear Drop Cells Brady Cells Acanthocytes (Spur) Schistocytes Smear Tech's Comments Smear Path Review Hold Purple Top PT INR APTT O2 Saturation ABG pH at Pt Temp ABG pCO2 at Pt Temp ABG pO2 at Pt Temp ABG HCO3 ABG Base Excess (Actual) VBG pH 7.25 L VBG pCO2 41 VBG pO2 52 VBG HCO3 18 L VBG O2 Saturation 76.0 VBG Base Excess -8.4 Sodium Potassium Chloride Carbon Dioxide Anion Gap BUN Creatinine Estim Creat Clear Calc Estimated GFR POC Glucose 181 H Random Glucose Estimat Average Glucose Hemoglobin A1c % Lactic Acid Lactic Acid F/U @ 2Hr Calcium Phosphorus Magnesium Iron TIBC % Saturation Unsat Iron Binding Total Bilirubin AST ALT Alkaline Phosphatase Lactate Dehydrogenase 355 H Troponin I High Sens C-Reactive Protein B-Natriuretic Peptide Total Protein Albumin Triglycerides Cholesterol LDL Cholesterol, Calc HDL Cholesterol Lipase Procalcitonin TSH Urine Color Urine Appearance Urine pH Ur Specific [place] Urine Protein Urine Glucose (UA) Urine Ketones Urine Blood Urine Nitrite Ur Leukocyte Esterase Urine RBC Urine WBC Ur Squamous Epith Cells Urine Bacteria Hyaline Casts Granular Casts Urine Yeast Urine Eosinophils % U Random Total Protein Urine Creatinine Stool Occult Blood Random Vancomycin Urine Opiates Screen Urine Fentanyl Screen Ur Barbiturates Screen Ur Phencyclidine Scrn Ur Amphetamines Screen U Benzodiazepines Scrn Urine Cocaine Screen U Marijuana (THC) Screen Ethyl Alcohol Lymphocyte Subset Cmmnt Total Lymphocytes % CD3 Cells Absolute CD3 Count % CD4 Cells Absolute CD4 Count CD4/CD8 Ratio % CD8 Cells Absolute CD8 Count Hep C Viral Load Hep C Viral Load Log HIV-1 RNA copies/mL HIV-1 RNA logcopies/mL Influenza Type A (PCR) Influenza Type B (PCR) RSV RNA Qual (PCR) SARS-CoV-2 RNA (RT-PCR) Blood Type Antibody Screen Antibody Identification JENNIFER, Polyspecific Positive JENNIFER Work-up Crossmatch (AHG) 10/11/23 10/11/23 10/12/23 17:05 17:54 00:00 WBC RBC Hgb Hct MCV MCH MCHC RDW Plt Count MPV Immature Gran % (Auto) Neut % (Auto) Lymph % (Auto) Lewis % (Auto) Eos % (Auto) Baso % (Auto) Lymph # (Auto) Lewis # (Auto) Eos # (Auto) Baso # (Auto) Abs Immat Gran (auto) Absolute Neuts (auto) Absolute Nucleated RBC Nucleated RBC % (auto) Neutrophils % (Manual) Band Neutrophils % Lymphocytes % (Manual) Monocytes % (Manual) Eosinophils % (Manual) Basophils % (Manual) Abs Neuts (Manual) Lymphocytes # (Manual) Monocytes # (Manual) Eosinophils # (Manual) Basophils # (Manual) Nucleated RBCs Smudge Cells Platelet Estimate Large Platelets Plt Morphology Comment RBC Morphology Polychromasia Microcytosis Macrocytosis Target Cells Tear Drop Cells Brady Cells Acanthocytes (Spur) Schistocytes Smear Tech's Comments Smear Path Review Hold Purple Top PT INR APTT O2 Saturation ABG pH at Pt Temp ABG pCO2 at Pt Temp ABG pO2 at Pt Temp ABG HCO3 ABG Base Excess (Actual) VBG pH VBG pCO2 VBG pO2 VBG HCO3 VBG O2 Saturation VBG Base Excess Sodium 140 Potassium 5.3 H Chloride 106 Carbon Dioxide 23 Anion Gap 16 BUN 122 H Creatinine 3.27 H Estim Creat Clear Calc 20.7 Estimated GFR 19 POC Glucose 215 H 189 H Random Glucose 224 H Estimat Average Glucose Hemoglobin A1c % Lactic Acid Lactic Acid F/U @ 2Hr Calcium 9.8 Phosphorus Magnesium Iron TIBC % Saturation Unsat Iron Binding Total Bilirubin AST ALT Alkaline Phosphatase Lactate Dehydrogenase Troponin I High Sens C-Reactive Protein B-Natriuretic Peptide Total Protein Albumin Triglycerides Cholesterol LDL Cholesterol, Calc HDL Cholesterol Lipase Procalcitonin TSH Urine Color Urine Appearance Urine pH Ur Specific [place] Urine Protein Urine Glucose (UA) Urine Ketones Urine Blood Urine Nitrite Ur Leukocyte Esterase Urine RBC Urine WBC Ur Squamous Epith Cells Urine Bacteria Hyaline Casts Granular Casts Urine Yeast Urine Eosinophils % U Random Total Protein Urine Creatinine Stool Occult Blood Random Vancomycin Urine Opiates Screen Urine Fentanyl Screen Ur Barbiturates Screen Ur Phencyclidine Scrn Ur Amphetamines Screen U Benzodiazepines Scrn Urine Cocaine Screen U Marijuana (THC) Screen Ethyl Alcohol Lymphocyte Subset Cmmnt Total Lymphocytes % CD3 Cells Absolute CD3 Count % CD4 Cells Absolute CD4 Count CD4/CD8 Ratio % CD8 Cells Absolute CD8 Count Hep C Viral Load Hep C Viral Load Log HIV-1 RNA copies/mL HIV-1 RNA logcopies/mL Influenza Type A (PCR) Influenza Type B (PCR) RSV RNA Qual (PCR) SARS-CoV-2 RNA (RT-PCR) Blood Type Antibody Screen Antibody Identification JENNIFER, Polyspecific Positive JENNIFER Work-up Crossmatch (AHG) 10/12/23 10/12/23 10/12/23 04:37 04:42 11:08 WBC 26.0 H RBC 4.92 Hgb 11.0 L Hct 31.5 L MCV 64.0 L MCH 22.4 L MCHC 34.9 RDW 15.0 Plt Count 329 MPV 10.5 Immature Gran % (Auto) 1.5 H Neut % (Auto) 88.7 H Lymph % (Auto) 3.2 L Lewis % (Auto) 5.8 Eos % (Auto) 0.5 Baso % (Auto) 0.3 Lymph # (Auto) 0.8 L Lewis # (Auto) 1.5 H Eos # (Auto) 0.1 Baso # (Auto) 0.1 Abs Immat Gran (auto) 0.39 H Absolute Neuts (auto) 23.1 H Absolute Nucleated RBC 0.050 H Nucleated RBC % (auto) 0.2 Neutrophils % (Manual) Band Neutrophils % Lymphocytes % (Manual) Monocytes % (Manual) Eosinophils % (Manual) Basophils % (Manual) Abs Neuts (Manual) Lymphocytes # (Manual) Monocytes # (Manual) Eosinophils # (Manual) Basophils # (Manual) Nucleated RBCs Smudge Cells Platelet Estimate Large Platelets Plt Morphology Comment RBC Morphology Polychromasia Microcytosis Macrocytosis Target Cells Tear Drop Cells Amonate Cells Acanthocytes (Spur) Schistocytes Smear Tech's Comments VERIFIED Smear Path Review SEE NOTE Hold Purple Top PT INR APTT O2 Saturation ABG pH at Pt Temp ABG pCO2 at Pt Temp ABG pO2 at Pt Temp ABG HCO3 ABG Base Excess (Actual) VBG pH 7.38 VBG pCO2 34 VBG pO2 52 VBG HCO3 20 L VBG O2 Saturation 80.0 VBG Base Excess -3.3 Sodium 138 Potassium 5.0 Chloride 104 Carbon Dioxide 21 L Anion Gap 18 BUN 113 H Creatinine 2.82 H Estim Creat Clear Calc 23.3 Estimated GFR 23 POC Glucose 198 H Random Glucose 236 H Estimat Average Glucose Hemoglobin A1c % Lactic Acid Lactic Acid F/U @ 2Hr Calcium 10.1 Phosphorus 3.9 Magnesium 2.7 H Iron TIBC % Saturation Unsat Iron Binding Total Bilirubin 0.6 AST 28 ALT 15 Alkaline Phosphatase 118 H Lactate Dehydrogenase Troponin I High Sens C-Reactive Protein B-Natriuretic Peptide Total Protein 8.7 H Albumin 3.1 L Triglycerides Cholesterol LDL Cholesterol, Calc HDL Cholesterol Lipase Procalcitonin TSH Urine Color Urine Appearance Urine pH Ur Specific [place] Urine Protein Urine Glucose (UA) Urine Ketones Urine Blood Urine Nitrite Ur Leukocyte Esterase Urine RBC Urine WBC Ur Squamous Epith Cells Urine Bacteria Hyaline Casts Granular Casts Urine Yeast Urine Eosinophils % U Random Total Protein Urine Creatinine Stool Occult Blood Random Vancomycin Urine Opiates Screen Urine Fentanyl Screen Ur Barbiturates Screen Ur Phencyclidine Scrn Ur Amphetamines Screen U Benzodiazepines Scrn Urine Cocaine Screen U Marijuana (THC) Screen Ethyl Alcohol Lymphocyte Subset Cmmnt Total Lymphocytes % CD3 Cells Absolute CD3 Count % CD4 Cells Absolute CD4 Count CD4/CD8 Ratio % CD8 Cells Absolute CD8 Count Hep C Viral Load Hep C Viral Load Log HIV-1 RNA copies/mL HIV-1 RNA logcopies/mL Influenza Type A (PCR) Influenza Type B (PCR) RSV RNA Qual (PCR) SARS-CoV-2 RNA (RT-PCR) Blood Type Antibody Screen Antibody Identification JENNIFER, Polyspecific Positive JENNIFER Work-up Crossmatch ([facility]G) 10/12/23 10/12/23 10/13/23 17:12 23:44 04:35 WBC 16.5 H RBC 4.01 L Hgb 8.8 L Hct 25.3 L MCV 63.1 L MCH 21.9 L MCHC 34.8 RDW 14.3 Plt Count 286 MPV 11.2 Immature Gran % (Auto) 1.4 H Neut % (Auto) 84.8 H Lymph % (Auto) 5.2 L Lewis % (Auto) 7.4 Eos % (Auto) 0.9 Baso % (Auto) 0.3 Lymph # (Auto) 0.9 L Lewis # (Auto) 1.2 Eos # (Auto) 0.1 Baso # (Auto) 0.1 Abs Immat Gran (auto) 0.23 H Absolute Neuts (auto) 14.0 H Absolute Nucleated RBC 0.030 H Nucleated RBC % (auto) 0.2 Neutrophils % (Manual) Band Neutrophils % Lymphocytes % (Manual) Monocytes % (Manual) Eosinophils % (Manual) Basophils % (Manual) Abs Neuts (Manual) Lymphocytes # (Manual) Monocytes # (Manual) Eosinophils # (Manual) Basophils # (Manual) Nucleated RBCs Smudge Cells Platelet Estimate Large Platelets Plt Morphology Comment RBC Morphology Polychromasia Microcytosis Macrocytosis Target Cells Tear Drop Cells Brady Cells Acanthocytes (Spur) Schistocytes Smear Tech's Comments Smear Path Review Hold Purple Top PT INR APTT O2 Saturation ABG pH at Pt Temp ABG pCO2 at Pt Temp ABG pO2 at Pt Temp ABG HCO3 ABG Base Excess (Actual) VBG pH VBG pCO2 VBG pO2 VBG HCO3 VBG O2 Saturation VBG Base Excess Sodium 140 Potassium 4.0 Chloride 106 Carbon Dioxide 19 L Anion Gap 19 BUN 115 H Creatinine 2.47 H Estim Creat Clear Calc 26.6 Estimated GFR 27 POC Glucose 208 H 194 H Random Glucose 193 H Estimat Average Glucose Hemoglobin A1c % Lactic Acid Lactic Acid F/U @ 2Hr Calcium 10.8 H D Phosphorus 3.5 Magnesium 2.3 Iron TIBC % Saturation Unsat Iron Binding Total Bilirubin 0.9 AST 27 ALT 13 Alkaline Phosphatase 100 Lactate Dehydrogenase Troponin I High Sens C-Reactive Protein B-Natriuretic Peptide Total Protein 8.9 H Albumin 4.4 Triglycerides Cholesterol LDL Cholesterol, Calc HDL Cholesterol Lipase Procalcitonin TSH Urine Color Urine Appearance Urine pH Ur Specific [place] Urine Protein Urine Glucose (UA) Urine Ketones Urine Blood Urine Nitrite Ur Leukocyte Esterase Urine RBC Urine WBC Ur Squamous Epith Cells Urine Bacteria Hyaline Casts Granular Casts Urine Yeast Urine Eosinophils % U Random Total Protein Urine Creatinine Stool Occult Blood Random Vancomycin Urine Opiates Screen Urine Fentanyl Screen Ur Barbiturates Screen Ur Phencyclidine Scrn Ur Amphetamines Screen U Benzodiazepines Scrn Urine Cocaine Screen U Marijuana (THC) Screen Ethyl Alcohol Lymphocyte Subset Cmmnt Total Lymphocytes % CD3 Cells Absolute CD3 Count % CD4 Cells Absolute CD4 Count CD4/CD8 Ratio % CD8 Cells Absolute CD8 Count Hep C Viral Load Hep C Viral Load Log HIV-1 RNA copies/mL HIV-1 RNA logcopies/mL Influenza Type A (PCR) Influenza Type B (PCR) RSV RNA Qual (PCR) SARS-CoV-2 RNA (RT-PCR) Blood Type Antibody Screen Antibody Identification JENNIFER, Polyspecific Positive JENNIFER Work-up Crossmatch ([facility]G) 10/13/23 10/13/23 10/13/23 04:40 07:04 11:49 WBC RBC Hgb Hct MCV MCH MCHC RDW Plt Count MPV Immature Gran % (Auto) Neut % (Auto) Lymph % (Auto) Lewis % (Auto) Eos % (Auto) Baso % (Auto) Lymph # (Auto) Lewis # (Auto) Eos # (Auto) Baso # (Auto) Abs Immat Gran (auto) Absolute Neuts (auto) Absolute Nucleated RBC Nucleated RBC % (auto) Neutrophils % (Manual) Band Neutrophils % Lymphocytes % (Manual) Monocytes % (Manual) Eosinophils % (Manual) Basophils % (Manual) Abs Neuts (Manual) Lymphocytes # (Manual) Monocytes # (Manual) Eosinophils # (Manual) Basophils # (Manual) Nucleated RBCs Smudge Cells Platelet Estimate Large Platelets Plt Morphology Comment RBC Morphology Polychromasia Microcytosis Macrocytosis Target Cells Tear Drop Cells Brady Cells Acanthocytes (Spur) Schistocytes Smear Tech's Comments Smear Path Review Hold Purple Top PT INR APTT O2 Saturation ABG pH at Pt Temp ABG pCO2 at Pt Temp ABG pO2 at Pt Temp ABG HCO3 ABG Base Excess (Actual) VBG pH 7.41 VBG pCO2 31 VBG pO2 49 VBG HCO3 20 L VBG O2 Saturation 75.0 VBG Base Excess -3.4 Sodium Potassium Chloride Carbon Dioxide Anion Gap BUN Creatinine Estim Creat Clear Calc Estimated GFR POC Glucose 228 H Random Glucose Estimat Average Glucose Hemoglobin A1c % Lactic Acid Lactic Acid F/U @ 2Hr Calcium Phosphorus Magnesium Iron TIBC % Saturation Unsat Iron Binding Total Bilirubin AST ALT Alkaline Phosphatase Lactate Dehydrogenase Troponin I High Sens C-Reactive Protein B-Natriuretic Peptide Total Protein Albumin Triglycerides Cholesterol LDL Cholesterol, Calc HDL Cholesterol Lipase Procalcitonin TSH Urine Color Urine Appearance Urine pH Ur Specific [place] Urine Protein Urine Glucose (UA) Urine Ketones Urine Blood Urine Nitrite Ur Leukocyte Esterase Urine RBC Urine WBC Ur Squamous Epith Cells Urine Bacteria Hyaline Casts Granular Casts Urine Yeast Urine Eosinophils % U Random Total Protein Urine Creatinine Stool Occult Blood Random Vancomycin 17.5 Urine Opiates Screen Urine Fentanyl Screen Ur Barbiturates Screen Ur Phencyclidine Scrn Ur Amphetamines Screen U Benzodiazepines Scrn Urine Cocaine Screen U Marijuana (THC) Screen Ethyl Alcohol Lymphocyte Subset Cmmnt Total Lymphocytes % CD3 Cells Absolute CD3 Count % CD4 Cells Absolute CD4 Count CD4/CD8 Ratio % CD8 Cells Absolute CD8 Count Hep C Viral Load Hep C Viral Load Log HIV-1 RNA copies/mL HIV-1 RNA logcopies/mL Influenza Type A (PCR) Influenza Type B (PCR) RSV RNA Qual (PCR) SARS-CoV-2 RNA (RT-PCR) Blood Type Antibody Screen Antibody Identification JENNIFER, Polyspecific Positive JENNIFER Work-up Crossmatch ([facility]G) 10/13/23 10/13/23 10/14/23 18:10 23:40 03:01 WBC RBC Hgb Hct MCV MCH MCHC RDW Plt Count MPV Immature Gran % (Auto) Neut % (Auto) Lymph % (Auto) Lewis % (Auto) Eos % (Auto) Baso % (Auto) Lymph # (Auto) Lewis # (Auto) Eos # (Auto) Baso # (Auto) Abs Immat Gran (auto) Absolute Neuts (auto) Absolute Nucleated RBC Nucleated RBC % (auto) Neutrophils % (Manual) Band Neutrophils % Lymphocytes % (Manual) Monocytes % (Manual) Eosinophils % (Manual) Basophils % (Manual) Abs Neuts (Manual) Lymphocytes # (Manual) Monocytes # (Manual) Eosinophils # (Manual) Basophils # (Manual) Nucleated RBCs Smudge Cells Platelet Estimate Large Platelets Plt Morphology Comment RBC Morphology Polychromasia Microcytosis Macrocytosis Target Cells Tear Drop Cells Brady Cells Acanthocytes (Spur) Schistocytes Smear Tech's Comments Smear Path Review Hold Purple Top PT INR APTT O2 Saturation ABG pH at Pt Temp ABG pCO2 at Pt Temp ABG pO2 at Pt Temp ABG HCO3 ABG Base Excess (Actual) VBG pH 7.32 VBG pCO2 37 VBG pO2 47 VBG HCO3 19 L VBG O2 Saturation 64.0 VBG Base Excess -5.9 Sodium Potassium Chloride Carbon Dioxide Anion Gap BUN Creatinine Estim Creat Clear Calc Estimated GFR POC Glucose 140 H 157 H Random Glucose Estimat Average Glucose Hemoglobin A1c % Lactic Acid Lactic Acid F/U @ 2Hr Calcium Phosphorus Magnesium Iron TIBC % Saturation Unsat Iron Binding Total Bilirubin AST ALT Alkaline Phosphatase Lactate Dehydrogenase Troponin I High Sens C-Reactive Protein B-Natriuretic Peptide Total Protein Albumin Triglycerides Cholesterol LDL Cholesterol, Calc HDL Cholesterol Lipase Procalcitonin TSH Urine Color Urine Appearance Urine pH Ur Specific [place] Urine Protein Urine Glucose (UA) Urine Ketones Urine Blood Urine Nitrite Ur Leukocyte Esterase Urine RBC Urine WBC Ur Squamous Epith Cells Urine Bacteria Hyaline Casts Granular Casts Urine Yeast Urine Eosinophils % U Random Total Protein Urine Creatinine Stool Occult Blood Random Vancomycin Urine Opiates Screen Urine Fentanyl Screen Ur Barbiturates Screen Ur Phencyclidine Scrn Ur Amphetamines Screen U Benzodiazepines Scrn Urine Cocaine Screen U Marijuana (THC) Screen Ethyl Alcohol Lymphocyte Subset Cmmnt Total Lymphocytes % CD3 Cells Absolute CD3 Count % CD4 Cells Absolute CD4 Count CD4/CD8 Ratio % CD8 Cells Absolute CD8 Count Hep C Viral Load Hep C Viral Load Log HIV-1 RNA copies/mL HIV-1 RNA logcopies/mL Influenza Type A (PCR) Influenza Type B (PCR) RSV RNA Qual (PCR) SARS-CoV-2 RNA (RT-PCR) Blood Type Antibody Screen Antibody Identification JENNIFER, Polyspecific Positive JENNIFER Work-up Crossmatch ([facility]G) 10/14/23 10/14/23 10/14/23 04:41 06:11 09:53 WBC 17.4 H RBC 4.47 L Hgb 9.9 L Hct 29.0 L MCV 64.9 L MCH 22.1 L MCHC 34.1 RDW 14.6 Plt Count 383 D MPV 11.2 Immature Gran % (Auto) 1.4 H Neut % (Auto) 83.6 H Lymph % (Auto) 6.5 L Lewis % (Auto) 7.5 Eos % (Auto) 0.5 Baso % (Auto) 0.5 Lymph # (Auto) 1.1 L Lewis # (Auto) 1.3 H Eos # (Auto) 0.1 Baso # (Auto) 0.1 Abs Immat Gran (auto) 0.25 H Absolute Neuts (auto) 14.5 H Absolute Nucleated RBC 0.030 H Nucleated RBC % (auto) 0.2 Neutrophils % (Manual) Band Neutrophils % Lymphocytes % (Manual) Monocytes % (Manual) Eosinophils % (Manual) Basophils % (Manual) Abs Neuts (Manual) Lymphocytes # (Manual) Monocytes # (Manual) Eosinophils # (Manual) Basophils # (Manual) Nucleated RBCs Smudge Cells Platelet Estimate Large Platelets Plt Morphology Comment RBC Morphology Polychromasia Microcytosis Macrocytosis Target Cells Tear Drop Cells Amonate Cells Acanthocytes (Spur) Schistocytes Smear Tech's Comments Smear Path Review Hold Purple Top PT INR APTT O2 Saturation ABG pH at Pt Temp ABG pCO2 at Pt Temp ABG pO2 at Pt Temp ABG HCO3 ABG Base Excess (Actual) VBG pH 7.24 L VBG pCO2 44 VBG pO2 60 VBG HCO3 19 L VBG O2 Saturation 77.0 VBG Base Excess -7.4 Sodium 144 Potassium 5.0 D Chloride 108 Carbon Dioxide 16 L Anion Gap 25 H BUN 130 H Creatinine 3.35 H Estim Creat Clear Calc 19.8 Estimated GFR 19 POC Glucose Random Glucose 149 H Estimat Average Glucose Hemoglobin A1c % Lactic Acid Lactic Acid F/U @ 2Hr Calcium 10.6 H Phosphorus 8.8 H Magnesium 2.6 Iron TIBC % Saturation Unsat Iron Binding Total Bilirubin AST ALT Alkaline Phosphatase Lactate Dehydrogenase Troponin I High Sens C-Reactive Protein B-Natriuretic Peptide Total Protein Albumin 4.1 Triglycerides Cholesterol LDL Cholesterol, Calc HDL Cholesterol Lipase Procalcitonin TSH Urine Color Yellow Urine Appearance Turbid Urine pH 5.5 Ur Specific [place] 1.020 Urine Protein 100 (2+) H Urine Glucose (UA) Negative Urine Ketones Negative Urine Blood Moderate (2+) H Urine Nitrite Negative Ur Leukocyte Esterase Moderate (2+) H Urine RBC 11-20 H Urine WBC >50 H Ur Squamous Epith Cells 6-10 Urine Bacteria Trace Hyaline Casts 3-5 Granular Casts Present Urine Yeast Present Urine Eosinophils % 0.0 U Random Total Protein 125 H Urine Creatinine 54.55 Stool Occult Blood Random Vancomycin Urine Opiates Screen Urine Fentanyl Screen Ur Barbiturates Screen Ur Phencyclidine Scrn Ur Amphetamines Screen U Benzodiazepines Scrn Urine Cocaine Screen U Marijuana (THC) Screen Ethyl Alcohol Lymphocyte Subset Cmmnt Total Lymphocytes % CD3 Cells Absolute CD3 Count % CD4 Cells Absolute CD4 Count CD4/CD8 Ratio % CD8 Cells Absolute CD8 Count Hep C Viral Load Hep C Viral Load Log HIV-1 RNA copies/mL HIV-1 RNA logcopies/mL Influenza Type A (PCR) Influenza Type B (PCR) RSV RNA Qual (PCR) SARS-CoV-2 RNA (RT-PCR) Blood Type Antibody Screen Antibody Identification JENNIFER, Polyspecific Positive JNENIFER Work-up Crossmatch ([facility]G) 10/14/23 10/14/23 10/14/23 12:04 17:41 23:59 WBC RBC Hgb Hct MCV MCH MCHC RDW Plt Count MPV Immature Gran % (Auto) Neut % (Auto) Lymph % (Auto) Lewis % (Auto) Eos % (Auto) Baso % (Auto) Lymph # (Auto) Lewis # (Auto) Eos # (Auto) Baso # (Auto) Abs Immat Gran (auto) Absolute Neuts (auto) Absolute Nucleated RBC Nucleated RBC % (auto) Neutrophils % (Manual) Band Neutrophils % Lymphocytes % (Manual) Monocytes % (Manual) Eosinophils % (Manual) Basophils % (Manual) Abs Neuts (Manual) Lymphocytes # (Manual) Monocytes # (Manual) Eosinophils # (Manual) Basophils # (Manual) Nucleated RBCs Smudge Cells Platelet Estimate Large Platelets Plt Morphology Comment RBC Morphology Polychromasia Microcytosis Macrocytosis Target Cells Tear Drop Cells Brady Cells Acanthocytes (Spur) Schistocytes Smear Tech's Comments Smear Path Review Hold Purple Top PT INR APTT O2 Saturation ABG pH at Pt Temp ABG pCO2 at Pt Temp ABG pO2 at Pt Temp ABG HCO3 ABG Base Excess (Actual) VBG pH VBG pCO2 VBG pO2 VBG HCO3 VBG O2 Saturation VBG Base Excess Sodium Potassium Chloride Carbon Dioxide Anion Gap BUN Creatinine Estim Creat Clear Calc Estimated GFR POC Glucose 259 H 243 H 233 H Random Glucose Estimat Average Glucose Hemoglobin A1c % Lactic Acid Lactic Acid F/U @ 2Hr Calcium Phosphorus Magnesium Iron TIBC % Saturation Unsat Iron Binding Total Bilirubin AST ALT Alkaline Phosphatase Lactate Dehydrogenase Troponin I High Sens C-Reactive Protein B-Natriuretic Peptide Total Protein Albumin Triglycerides Cholesterol LDL Cholesterol, Calc HDL Cholesterol Lipase Procalcitonin TSH Urine Color Urine Appearance Urine pH Ur Specific [place] Urine Protein Urine Glucose (UA) Urine Ketones Urine Blood Urine Nitrite Ur Leukocyte Esterase Urine RBC Urine WBC Ur Squamous Epith Cells Urine Bacteria Hyaline Casts Granular Casts Urine Yeast Urine Eosinophils % U Random Total Protein Urine Creatinine Stool Occult Blood Random Vancomycin Urine Opiates Screen Urine Fentanyl Screen Ur Barbiturates Screen Ur Phencyclidine Scrn Ur Amphetamines Screen U Benzodiazepines Scrn Urine Cocaine Screen U Marijuana (THC) Screen Ethyl Alcohol Lymphocyte Subset Cmmnt Total Lymphocytes % CD3 Cells Absolute CD3 Count % CD4 Cells Absolute CD4 Count CD4/CD8 Ratio % CD8 Cells Absolute CD8 Count Hep C Viral Load Hep C Viral Load Log HIV-1 RNA copies/mL HIV-1 RNA logcopies/mL Influenza Type A (PCR) Influenza Type B (PCR) RSV RNA Qual (PCR) SARS-CoV-2 RNA (RT-PCR) Blood Type Antibody Screen Antibody Identification JENNIFER, Polyspecific Positive JENNIFER Work-up Crossmatch (AHG) 10/15/23 10/15/23 10/15/23 04:48 04:49 05:33 WBC 18.4 H RBC 3.92 L Hgb 8.7 L Hct 25.3 L MCV 64.5 L MCH 22.2 L MCHC 34.4 RDW 14.7 Plt Count 322 MPV 10.0 Immature Gran % (Auto) 1.0 H Neut % (Auto) 85.0 H Lymph % (Auto) 6.6 L Lewis % (Auto) 6.3 Eos % (Auto) 0.9 Baso % (Auto) 0.2 Lymph # (Auto) 1.2 Lewis # (Auto) 1.2 Eos # (Auto) 0.2 Baso # (Auto) 0.0 Abs Immat Gran (auto) 0.18 H Absolute Neuts (auto) 15.6 H Absolute Nucleated RBC 0.020 H Nucleated RBC % (auto) 0.1 Neutrophils % (Manual) Band Neutrophils % Lymphocytes % (Manual) Monocytes % (Manual) Eosinophils % (Manual) Basophils % (Manual) Abs Neuts (Manual) Lymphocytes # (Manual) Monocytes # (Manual) Eosinophils # (Manual) Basophils # (Manual) Nucleated RBCs Smudge Cells Platelet Estimate Large Platelets Plt Morphology Comment RBC Morphology Polychromasia Microcytosis Macrocytosis Target Cells Tear Drop Cells Amonate Cells Acanthocytes (Spur) Schistocytes Smear Tech's Comments Smear Path Review Hold Purple Top PT INR APTT O2 Saturation ABG pH at Pt Temp ABG pCO2 at Pt Temp ABG pO2 at Pt Temp ABG HCO3 ABG Base Excess (Actual) VBG pH 7.49 H VBG pCO2 46 VBG pO2 40 VBG HCO3 35 H VBG O2 Saturation 54.0 VBG Base Excess 11.1 Sodium 147 H Potassium 3.1 L D Chloride 102 Carbon Dioxide 30 H Anion Gap 18 BUN 111 H Creatinine 2.88 H Estim Creat Clear Calc 24.1 Estimated GFR 22 POC Glucose 292 H Random Glucose 363 H* Estimat Average Glucose Hemoglobin A1c % Lactic Acid Lactic Acid F/U @ 2Hr Calcium 9.3 D Phosphorus 3.9 Magnesium 2.2 Iron TIBC % Saturation Unsat Iron Binding Total Bilirubin AST ALT Alkaline Phosphatase Lactate Dehydrogenase Troponin I High Sens C-Reactive Protein B-Natriuretic Peptide Total Protein Albumin 3.3 L Triglycerides Cholesterol LDL Cholesterol, Calc HDL Cholesterol Lipase Procalcitonin TSH Urine Color Urine Appearance Urine pH Ur Specific [place] Urine Protein Urine Glucose (UA) Urine Ketones Urine Blood Urine Nitrite Ur Leukocyte Esterase Urine RBC Urine WBC Ur Squamous Epith Cells Urine Bacteria Hyaline Casts Granular Casts Urine Yeast Urine Eosinophils % U Random Total Protein Urine Creatinine Stool Occult Blood Random Vancomycin Urine Opiates Screen Urine Fentanyl Screen Ur Barbiturates Screen Ur Phencyclidine Scrn Ur Amphetamines Screen U Benzodiazepines Scrn Urine Cocaine Screen U Marijuana (THC) Screen Ethyl Alcohol Lymphocyte Subset Cmmnt Total Lymphocytes % CD3 Cells Absolute CD3 Count % CD4 Cells Absolute CD4 Count CD4/CD8 Ratio % CD8 Cells Absolute CD8 Count Hep C Viral Load Hep C Viral Load Log HIV-1 RNA copies/mL HIV-1 RNA logcopies/mL Influenza Type A (PCR) Influenza Type B (PCR) RSV RNA Qual (PCR) SARS-CoV-2 RNA (RT-PCR) Blood Type Antibody Screen Antibody Identification JENNIFER, Polyspecific Positive JENNIFER Work-up Crossmatch (AHG) 10/15/23 10/15/23 10/15/23 07:06 11:28 17:41 WBC RBC Hgb Hct MCV MCH MCHC RDW Plt Count MPV Immature Gran % (Auto) Neut % (Auto) Lymph % (Auto) Lewis % (Auto) Eos % (Auto) Baso % (Auto) Lymph # (Auto) [place] # (Auto) Eos # (Auto) Baso # (Auto) Abs Immat Gran (auto) Absolute Neuts (auto) Absolute Nucleated RBC Nucleated RBC % (auto) Neutrophils % (Manual) Band Neutrophils % Lymphocytes % (Manual) Monocytes % (Manual) Eosinophils % (Manual) Basophils % (Manual) Abs Neuts (Manual) Lymphocytes # (Manual) Monocytes # (Manual) Eosinophils # (Manual) Basophils # (Manual) Nucleated RBCs Smudge Cells Platelet Estimate Large Platelets Plt Morphology Comment RBC Morphology Polychromasia Microcytosis Macrocytosis Target Cells Tear Drop Cells Brady Cells Acanthocytes (Spur) Schistocytes Smear Tech's Comments Smear Path Review Hold Purple Top PT INR APTT O2 Saturation ABG pH at Pt Temp ABG pCO2 at Pt Temp ABG pO2 at Pt Temp ABG HCO3 ABG Base Excess (Actual) VBG pH VBG pCO2 VBG pO2 VBG HCO3 VBG O2 Saturation VBG Base Excess Sodium Potassium Chloride Carbon Dioxide Anion Gap BUN Creatinine Estim Creat Clear Calc Estimated GFR POC Glucose 153 H 210 H Random Glucose Estimat Average Glucose Hemoglobin A1c % Lactic Acid Lactic Acid F/U @ 2Hr Calcium Phosphorus Magnesium Iron TIBC % Saturation Unsat Iron Binding Total Bilirubin AST ALT Alkaline Phosphatase Lactate Dehydrogenase Troponin I High Sens C-Reactive Protein B-Natriuretic Peptide Total Protein Albumin Triglycerides Cholesterol LDL Cholesterol, Calc HDL Cholesterol Lipase Procalcitonin TSH Urine Color Urine Appearance Urine pH Ur Specific [place] Urine Protein Urine Glucose (UA) Urine Ketones Urine Blood Urine Nitrite Ur Leukocyte Esterase Urine RBC Urine WBC Ur Squamous Epith Cells Urine Bacteria Hyaline Casts Granular Casts Urine Yeast Urine Eosinophils % U Random Total Protein Urine Creatinine Stool Occult Blood Random Vancomycin 17.4 Urine Opiates Screen Urine Fentanyl Screen Ur Barbiturates Screen Ur Phencyclidine Scrn Ur Amphetamines Screen U Benzodiazepines Scrn Urine Cocaine Screen U Marijuana (THC) Screen Ethyl Alcohol Lymphocyte Subset Cmmnt Total Lymphocytes % CD3 Cells Absolute CD3 Count % CD4 Cells Absolute CD4 Count CD4/CD8 Ratio % CD8 Cells Absolute CD8 Count Hep C Viral Load Hep C Viral Load Log HIV-1 RNA copies/mL HIV-1 RNA logcopies/mL Influenza Type A (PCR) Influenza Type B (PCR) RSV RNA Qual (PCR) SARS-CoV-2 RNA (RT-PCR) Blood Type Antibody Screen Antibody Identification JENNIFER, Polyspecific Positive JENNIFER Work-up Crossmatch ([facility]) 10/15/23 10/16/23 10/16/23 23:55 05:47 05:48 WBC 11.9 H RBC 3.79 L Hgb 8.4 L Hct 24.7 L MCV 65.2 L MCH 22.2 L MCHC 34.0 RDW 15.0 Plt Count 320 MPV 11.4 Immature Gran % (Auto) 1.1 H Neut % (Auto) 81.5 H Lymph % (Auto) 7.5 L Lewis % (Auto) 8.1 Eos % (Auto) 1.5 Baso % (Auto) 0.3 Lymph # (Auto) 0.9 L Lewis # (Auto) 1.0 Eos # (Auto) 0.2 Baso # (Auto) 0.0 Abs Immat Gran (auto) 0.13 H Absolute Neuts (auto) 9.7 H Absolute Nucleated RBC 0.030 H Nucleated RBC % (auto) 0.3 H Neutrophils % (Manual) Band Neutrophils % Lymphocytes % (Manual) Monocytes % (Manual) Eosinophils % (Manual) Basophils % (Manual) Abs Neuts (Manual) Lymphocytes # (Manual) Monocytes # (Manual) Eosinophils # (Manual) Basophils # (Manual) Nucleated RBCs Smudge Cells Platelet Estimate Large Platelets Plt Morphology Comment RBC Morphology Polychromasia Microcytosis Macrocytosis Target Cells Tear Drop Cells Brady Cells Acanthocytes (Spur) Schistocytes Smear Tech's Comments Smear Path Review Hold Purple Top PT INR APTT O2 Saturation ABG pH at Pt Temp ABG pCO2 at Pt Temp ABG pO2 at Pt Temp ABG HCO3 ABG Base Excess (Actual) VBG pH 7.49 H VBG pCO2 38 VBG pO2 39 VBG HCO3 29 H VBG O2 Saturation 54.0 VBG Base Excess 6.1 Sodium 150 H Potassium 4.1 D Chloride 112 H Carbon Dioxide 27 Anion Gap 15 BUN 91 H Creatinine 1.82 H Estim Creat Clear Calc 38.0 Estimated GFR 38 POC Glucose 194 H Random Glucose 227 H Estimat Average Glucose Hemoglobin A1c % Lactic Acid Lactic Acid F/U @ 2Hr Calcium 9.9 D Phosphorus 3.1 Magnesium 2.1 Iron TIBC % Saturation Unsat Iron Binding Total Bilirubin AST ALT Alkaline Phosphatase Lactate Dehydrogenase Troponin I High Sens C-Reactive Protein B-Natriuretic Peptide Total Protein Albumin 3.6 Triglycerides Cholesterol LDL Cholesterol, Calc HDL Cholesterol Lipase Procalcitonin TSH Urine Color Urine Appearance Urine pH Ur Specific [place] Urine Protein Urine Glucose (UA) Urine Ketones Urine Blood Urine Nitrite Ur Leukocyte Esterase Urine RBC Urine WBC Ur Squamous Epith Cells Urine Bacteria Hyaline Casts Granular Casts Urine Yeast Urine Eosinophils % U Random Total Protein Urine Creatinine Stool Occult Blood Random Vancomycin Urine Opiates Screen Urine Fentanyl Screen Ur Barbiturates Screen Ur Phencyclidine Scrn Ur Amphetamines Screen U Benzodiazepines Scrn Urine Cocaine Screen U Marijuana (THC) Screen Ethyl Alcohol Lymphocyte Subset Cmmnt Total Lymphocytes % CD3 Cells Absolute CD3 Count % CD4 Cells Absolute CD4 Count CD4/CD8 Ratio % CD8 Cells Absolute CD8 Count Hep C Viral Load Hep C Viral Load Log HIV-1 RNA copies/mL HIV-1 RNA logcopies/mL Influenza Type A (PCR) Influenza Type B (PCR) RSV RNA Qual (PCR) SARS-CoV-2 RNA (RT-PCR) Blood Type Antibody Screen Antibody Identification JENNIFER, Polyspecific Positive JENNIFER Work-up Crossmatch ([facility]) 10/16/23 10/16/23 10/16/23 05:58 07:11 11:53 WBC RBC Hgb Hct MCV MCH MCHC RDW Plt Count MPV Immature Gran % (Auto) Neut % (Auto) Lymph % (Auto) Lewis % (Auto) Eos % (Auto) Baso % (Auto) Lymph # (Auto) Lewis # (Auto) Eos # (Auto) Baso # (Auto) Abs Immat Gran (auto) Absolute Neuts (auto) Absolute Nucleated RBC Nucleated RBC % (auto) Neutrophils % (Manual) Band Neutrophils % Lymphocytes % (Manual) Monocytes % (Manual) Eosinophils % (Manual) Basophils % (Manual) Abs Neuts (Manual) Lymphocytes # (Manual) Monocytes # (Manual) Eosinophils # (Manual) Basophils # (Manual) Nucleated RBCs Smudge Cells Platelet Estimate Large Platelets Plt Morphology Comment RBC Morphology Polychromasia Microcytosis Macrocytosis Target Cells Tear Drop Cells Brady Cells Acanthocytes (Spur) Schistocytes Smear Tech's Comments Smear Path Review Hold Purple Top PT INR APTT O2 Saturation ABG pH at Pt Temp ABG pCO2 at Pt Temp ABG pO2 at Pt Temp ABG HCO3 ABG Base Excess (Actual) VBG pH VBG pCO2 VBG pO2 VBG HCO3 VBG O2 Saturation VBG Base Excess Sodium Potassium Chloride Carbon Dioxide Anion Gap BUN Creatinine Estim Creat Clear Calc Estimated GFR POC Glucose 162 H 224 H Random Glucose Estimat Average Glucose Hemoglobin A1c % Lactic Acid Lactic Acid F/U @ 2Hr Calcium Phosphorus Magnesium Iron TIBC % Saturation Unsat Iron Binding Total Bilirubin AST ALT Alkaline Phosphatase Lactate Dehydrogenase Troponin I High Sens C-Reactive Protein B-Natriuretic Peptide Total Protein Albumin Triglycerides Cholesterol LDL Cholesterol, Calc HDL Cholesterol Lipase Procalcitonin TSH Urine Color Urine Appearance Urine pH Ur Specific [place] Urine Protein Urine Glucose (UA) Urine Ketones Urine Blood Urine Nitrite Ur Leukocyte Esterase Urine RBC Urine WBC Ur Squamous Epith Cells Urine Bacteria Hyaline Casts Granular Casts Urine Yeast Urine Eosinophils % U Random Total Protein Urine Creatinine Stool Occult Blood Random Vancomycin 15.4 Urine Opiates Screen Urine Fentanyl Screen Ur Barbiturates Screen Ur Phencyclidine Scrn Ur Amphetamines Screen U Benzodiazepines Scrn Urine Cocaine Screen U Marijuana (THC) Screen Ethyl Alcohol Lymphocyte Subset Cmmnt Total Lymphocytes % CD3 Cells Absolute CD3 Count % CD4 Cells Absolute CD4 Count CD4/CD8 Ratio % CD8 Cells Absolute CD8 Count Hep C Viral Load Hep C Viral Load Log HIV-1 RNA copies/mL HIV-1 RNA logcopies/mL Influenza Type A (PCR) Influenza Type B (PCR) RSV RNA Qual (PCR) SARS-CoV-2 RNA (RT-PCR) Blood Type Antibody Screen Antibody Identification JENNIFER, Polyspecific Positive JENNIFER Work-up Crossmatch ([facility]) 10/16/23 10/17/23 10/17/23 18:05 00:12 05:15 WBC 11.8 H RBC 3.64 L Hgb 8.1 L Hct 23.9 L MCV 65.7 L MCH 22.3 L MCHC 33.9 RDW 15.1 Plt Count 302 MPV 11.0 Immature Gran % (Auto) 0.9 H Neut % (Auto) 80.9 H Lymph % (Auto) 8.7 L Lewis % (Auto) 7.6 Eos % (Auto) 1.6 Baso % (Auto) 0.3 Lymph # (Auto) 1.0 L Lewis # (Auto) 0.9 Eos # (Auto) 0.2 Baso # (Auto) 0.0 Abs Immat Gran (auto) 0.11 H Absolute Neuts (auto) 9.5 H Absolute Nucleated RBC 0.050 H Nucleated RBC % (auto) 0.4 H Neutrophils % (Manual) Band Neutrophils % Lymphocytes % (Manual) Monocytes % (Manual) Eosinophils % (Manual) Basophils % (Manual) Abs Neuts (Manual) Lymphocytes # (Manual) Monocytes # (Manual) Eosinophils # (Manual) Basophils # (Manual) Nucleated RBCs Smudge Cells Platelet Estimate Large Platelets Plt Morphology Comment RBC Morphology Polychromasia Microcytosis Macrocytosis Target Cells Tear Drop Cells Amonate Cells Acanthocytes (Spur) Schistocytes Smear Tech's Comments Smear Path Review Hold Purple Top PT INR APTT O2 Saturation ABG pH at Pt Temp ABG pCO2 at Pt Temp ABG pO2 at Pt Temp ABG HCO3 ABG Base Excess (Actual) VBG pH VBG pCO2 VBG pO2 VBG HCO3 VBG O2 Saturation VBG Base Excess Sodium 141 Potassium 3.7 Chloride 106 Carbon Dioxide 25 Anion Gap 14 BUN 70 H Creatinine 1.74 H Estim Creat Clear Calc 39.7 Estimated GFR 40 POC Glucose 250 H 209 H Random Glucose 341 H Estimat Average Glucose Hemoglobin A1c % Lactic Acid Lactic Acid F/U @ 2Hr Calcium 9.3 D Phosphorus 2.7 Magnesium 1.8 Iron TIBC % Saturation Unsat Iron Binding Total Bilirubin 0.6 AST 32 ALT 12 Alkaline Phosphatase 85 Lactate Dehydrogenase Troponin I High Sens C-Reactive Protein B-Natriuretic Peptide Total Protein 7.8 Albumin 3.2 L Triglycerides Cholesterol LDL Cholesterol, Calc HDL Cholesterol Lipase Procalcitonin TSH Urine Color Urine Appearance Urine pH Ur Specific [place] Urine Protein Urine Glucose (UA) Urine Ketones Urine Blood Urine Nitrite Ur Leukocyte Esterase Urine RBC Urine WBC Ur Squamous Epith Cells Urine Bacteria Hyaline Casts Granular Casts Urine Yeast Urine Eosinophils % U Random Total Protein Urine Creatinine Stool Occult Blood Random Vancomycin Urine Opiates Screen Urine Fentanyl Screen Ur Barbiturates Screen Ur Phencyclidine Scrn Ur Amphetamines Screen U Benzodiazepines Scrn Urine Cocaine Screen U Marijuana (THC) Screen Ethyl Alcohol Lymphocyte Subset Cmmnt Total Lymphocytes % CD3 Cells Absolute CD3 Count % CD4 Cells Absolute CD4 Count CD4/CD8 Ratio % CD8 Cells Absolute CD8 Count Hep C Viral Load Hep C Viral Load Log HIV-1 RNA copies/mL HIV-1 RNA logcopies/mL Influenza Type A (PCR) Influenza Type B (PCR) RSV RNA Qual (PCR) SARS-CoV-2 RNA (RT-PCR) Blood Type Antibody Screen Antibody Identification JENNIFER, Polyspecific Positive JENNIFER Work-up Crossmatch ([facility]) 10/17/23 10/17/23 10/17/23 05:16 06:07 07:56 WBC RBC Hgb Hct MCV MCH MCHC RDW Plt Count MPV Immature Gran % (Auto) Neut % (Auto) Lymph % (Auto) Lewis % (Auto) Eos % (Auto) Baso % (Auto) Lymph # (Auto) Lewis # (Auto) Eos # (Auto) Baso # (Auto) Abs Immat Gran (auto) Absolute Neuts (auto) Absolute Nucleated RBC Nucleated RBC % (auto) Neutrophils % (Manual) Band Neutrophils % Lymphocytes % (Manual) Monocytes % (Manual) Eosinophils % (Manual) Basophils % (Manual) Abs Neuts (Manual) Lymphocytes # (Manual) Monocytes # (Manual) Eosinophils # (Manual) Basophils # (Manual) Nucleated RBCs Smudge Cells Platelet Estimate Large Platelets Plt Morphology Comment RBC Morphology Polychromasia Microcytosis Macrocytosis Target Cells Tear Drop Cells Amonate Cells Acanthocytes (Spur) Schistocytes Smear Tech's Comments Smear Path Review Hold Purple Top PT INR APTT O2 Saturation ABG pH at Pt Temp ABG pCO2 at Pt Temp ABG pO2 at Pt Temp ABG HCO3 ABG Base Excess (Actual) VBG pH 7.49 H VBG pCO2 37 VBG pO2 37 VBG HCO3 28 H VBG O2 Saturation 49.0 VBG Base Excess 5.2 Sodium Potassium Chloride Carbon Dioxide Anion Gap BUN Creatinine Estim Creat Clear Calc Estimated GFR POC Glucose 267 H Random Glucose Estimat Average Glucose Hemoglobin A1c % Lactic Acid Lactic Acid F/U @ 2Hr Calcium Phosphorus Magnesium Iron TIBC % Saturation Unsat Iron Binding Total Bilirubin AST ALT Alkaline Phosphatase Lactate Dehydrogenase Troponin I High Sens C-Reactive Protein B-Natriuretic Peptide Total Protein Albumin Triglycerides Cholesterol LDL Cholesterol, Calc HDL Cholesterol Lipase Procalcitonin TSH Urine Color Urine Appearance Urine pH Ur Specific [place] Urine Protein Urine Glucose (UA) Urine Ketones Urine Blood Urine Nitrite Ur Leukocyte Esterase Urine RBC Urine WBC Ur Squamous Epith Cells Urine Bacteria Hyaline Casts Granular Casts Urine Yeast Urine Eosinophils % U Random Total Protein Urine Creatinine Stool Occult Blood Random Vancomycin 16.4 Urine Opiates Screen Urine Fentanyl Screen Ur Barbiturates Screen Ur Phencyclidine Scrn Ur Amphetamines Screen U Benzodiazepines Scrn Urine Cocaine Screen U Marijuana (THC) Screen Ethyl Alcohol Lymphocyte Subset Cmmnt Total Lymphocytes % CD3 Cells Absolute CD3 Count % CD4 Cells Absolute CD4 Count CD4/CD8 Ratio % CD8 Cells Absolute CD8 Count Hep C Viral Load Hep C Viral Load Log HIV-1 RNA copies/mL HIV-1 RNA logcopies/mL Influenza Type A (PCR) Influenza Type B (PCR) RSV RNA Qual (PCR) SARS-CoV-2 RNA (RT-PCR) Blood Type Antibody Screen Antibody Identification JENNIFER, Polyspecific Positive JENNIFER Work-up Crossmatch ([facility]) 10/17/23 10/17/23 10/17/23 12:17 17:19 23:48 WBC RBC Hgb Hct MCV MCH MCHC RDW Plt Count MPV Immature Gran % (Auto) Neut % (Auto) Lymph % (Auto) Lewis % (Auto) Eos % (Auto) Baso % (Auto) Lymph # (Auto) Lewis # (Auto) Eos # (Auto) Baso # (Auto) Abs Immat Gran (auto) Absolute Neuts (auto) Absolute Nucleated RBC Nucleated RBC % (auto) Neutrophils % (Manual) Band Neutrophils % Lymphocytes % (Manual) Monocytes % (Manual) Eosinophils % (Manual) Basophils % (Manual) Abs Neuts (Manual) Lymphocytes # (Manual) Monocytes # (Manual) Eosinophils # (Manual) Basophils # (Manual) Nucleated RBCs Smudge Cells Platelet Estimate Large Platelets Plt Morphology Comment RBC Morphology Polychromasia Microcytosis Macrocytosis Target Cells Tear Drop Cells Amonate Cells Acanthocytes (Spur) Schistocytes Smear Tech's Comments Smear Path Review Hold Purple Top PT INR APTT O2 Saturation ABG pH at Pt Temp ABG pCO2 at Pt Temp ABG pO2 at Pt Temp ABG HCO3 ABG Base Excess (Actual) VBG pH VBG pCO2 VBG pO2 VBG HCO3 VBG O2 Saturation VBG Base Excess Sodium Potassium Chloride Carbon Dioxide Anion Gap BUN Creatinine Estim Creat Clear Calc Estimated GFR POC Glucose 176 H 153 H 147 H Random Glucose Estimat Average Glucose Hemoglobin A1c % Lactic Acid Lactic Acid F/U @ 2Hr Calcium Phosphorus Magnesium Iron TIBC % Saturation Unsat Iron Binding Total Bilirubin AST ALT Alkaline Phosphatase Lactate Dehydrogenase Troponin I High Sens C-Reactive Protein B-Natriuretic Peptide Total Protein Albumin Triglycerides Cholesterol LDL Cholesterol, Calc HDL Cholesterol Lipase Procalcitonin TSH Urine Color Urine Appearance Urine pH Ur Specific [place] Urine Protein Urine Glucose (UA) Urine Ketones Urine Blood Urine Nitrite Ur Leukocyte Esterase Urine RBC Urine WBC Ur Squamous Epith Cells Urine Bacteria Hyaline Casts Granular Casts Urine Yeast Urine Eosinophils % U Random Total Protein Urine Creatinine Stool Occult Blood Random Vancomycin Urine Opiates Screen Urine Fentanyl Screen Ur Barbiturates Screen Ur Phencyclidine Scrn Ur Amphetamines Screen U Benzodiazepines Scrn Urine Cocaine Screen U Marijuana (THC) Screen Ethyl Alcohol Lymphocyte Subset Cmmnt Total Lymphocytes % CD3 Cells Absolute CD3 Count % CD4 Cells Absolute CD4 Count CD4/CD8 Ratio % CD8 Cells Absolute CD8 Count Hep C Viral Load Hep C Viral Load Log HIV-1 RNA copies/mL HIV-1 RNA logcopies/mL Influenza Type A (PCR) Influenza Type B (PCR) RSV RNA Qual (PCR) SARS-CoV-2 RNA (RT-PCR) Blood Type Antibody Screen Antibody Identification JENNIFER, Polyspecific Positive JENNIFER Work-up Crossmatch ([facility]) 10/18/23 10/18/23 10/18/23 05:06 05:13 09:40 WBC 9.3 10.7 RBC 3.23 L 3.26 L Hgb 7.1 L 7.2 L Hct 20.9 L* 21.1 L MCV 64.7 L 64.7 L MCH 22.0 L 22.1 L MCHC 34.0 34.1 RDW 15.4 15.6 Plt Count 280 281 MPV 11.0 10.8 Immature Gran % (Auto) 1.2 H 1.1 H Neut % (Auto) 81.1 H 81.8 H Lymph % (Auto) 9.3 L 7.6 L Lewis % (Auto) 6.4 7.4 Eos % (Auto) 1.8 1.8 Baso % (Auto) 0.2 0.3 Lymph # (Auto) 0.9 L 0.8 L Lewis # (Auto) 0.6 0.8 Eos # (Auto) 0.2 0.2 Baso # (Auto) 0.0 0.0 Abs Immat Gran (auto) 0.11 H 0.12 H Absolute Neuts (auto) 7.6 8.8 H Absolute Nucleated RBC 0.000 0.020 H Nucleated RBC % (auto) 0.0 0.2 Neutrophils % (Manual) Band Neutrophils % Lymphocytes % (Manual) Monocytes % (Manual) Eosinophils % (Manual) Basophils % (Manual) Abs Neuts (Manual) Lymphocytes # (Manual) Monocytes # (Manual) Eosinophils # (Manual) Basophils # (Manual) Nucleated RBCs Smudge Cells Platelet Estimate Large Platelets Plt Morphology Comment RBC Morphology Polychromasia Microcytosis Macrocytosis Target Cells Tear Drop Cells Brady Cells Acanthocytes (Spur) Schistocytes Smear Tech's Comments Smear Path Review Hold Purple Top PT INR APTT O2 Saturation ABG pH at Pt Temp ABG pCO2 at Pt Temp ABG pO2 at Pt Temp ABG HCO3 ABG Base Excess (Actual) VBG pH 7.46 H VBG pCO2 35 VBG pO2 39 VBG HCO3 25 VBG O2 Saturation 55.0 VBG Base Excess 1.7 Sodium 145 Potassium 3.4 Chloride 109 H Carbon Dioxide 23 Anion Gap 16 BUN 53 H Creatinine 1.49 H Estim Creat Clear Calc 46.2 Estimated GFR 48 POC Glucose Random Glucose 222 H Estimat Average Glucose Hemoglobin A1c % Lactic Acid Lactic Acid F/U @ 2Hr Calcium 10.0 D Phosphorus 2.8 Magnesium 1.6 Iron TIBC % Saturation Unsat Iron Binding Total Bilirubin AST ALT Alkaline Phosphatase Lactate Dehydrogenase Troponin I High Sens C-Reactive Protein B-Natriuretic Peptide Total Protein Albumin 4.2 Triglycerides Cholesterol LDL Cholesterol, Calc HDL Cholesterol Lipase Procalcitonin TSH Urine Color Urine Appearance Urine pH Ur Specific [place] Urine Protein Urine Glucose (UA) Urine Ketones Urine Blood Urine Nitrite Ur Leukocyte Esterase Urine RBC Urine WBC Ur Squamous Epith Cells Urine Bacteria Hyaline Casts Granular Casts Urine Yeast Urine Eosinophils % U Random Total Protein Urine Creatinine Stool Occult Blood Random Vancomycin Urine Opiates Screen Urine Fentanyl Screen Ur Barbiturates Screen Ur Phencyclidine Scrn Ur Amphetamines Screen U Benzodiazepines Scrn Urine Cocaine Screen U Marijuana (THC) Screen Ethyl Alcohol Lymphocyte Subset Cmmnt Total Lymphocytes % CD3 Cells Absolute CD3 Count % CD4 Cells Absolute CD4 Count CD4/CD8 Ratio % CD8 Cells Absolute CD8 Count Hep C Viral Load Hep C Viral Load Log HIV-1 RNA copies/mL HIV-1 RNA logcopies/mL Influenza Type A (PCR) Influenza Type B (PCR) RSV RNA Qual (PCR) SARS-CoV-2 RNA (RT-PCR) Blood Type O Positive Antibody Screen POSITIVE Antibody Identification Anti-M JENNIFER, Polyspecific NEGATIVE Positive JENNIFER Work-up TNP Crossmatch ([facility]) See Detail 10/18/23 10/18/23 10/18/23 11:09 17:02 20:07 WBC RBC Hgb Hct MCV MCH MCHC RDW Plt Count MPV Immature Gran % (Auto) Neut % (Auto) Lymph % (Auto) Lewis % (Auto) Eos % (Auto) Baso % (Auto) Lymph # (Auto) Lewis # (Auto) Eos # (Auto) Baso # (Auto) Abs Immat Gran (auto) Absolute Neuts (auto) Absolute Nucleated RBC Nucleated RBC % (auto) Neutrophils % (Manual) Band Neutrophils % Lymphocytes % (Manual) Monocytes % (Manual) Eosinophils % (Manual) Basophils % (Manual) Abs Neuts (Manual) Lymphocytes # (Manual) Monocytes # (Manual) Eosinophils # (Manual) Basophils # (Manual) Nucleated RBCs Smudge Cells Platelet Estimate Large Platelets Plt Morphology Comment RBC Morphology Polychromasia Microcytosis Macrocytosis Target Cells Tear Drop Cells Brady Cells Acanthocytes (Spur) Schistocytes Smear Tech's Comments Smear Path Review Hold Purple Top PT INR APTT O2 Saturation ABG pH at Pt Temp ABG pCO2 at Pt Temp ABG pO2 at Pt Temp ABG HCO3 ABG Base Excess (Actual) VBG pH 7.50 H VBG pCO2 27 VBG pO2 44 VBG HCO3 22 VBG O2 Saturation 66.0 VBG Base Excess -0.1 Sodium Potassium Chloride Carbon Dioxide Anion Gap BUN Creatinine Estim Creat Clear Calc Estimated GFR POC Glucose 148 H 240 H Random Glucose Estimat Average Glucose Hemoglobin A1c % Lactic Acid Lactic Acid F/U @ 2Hr Calcium Phosphorus Magnesium Iron TIBC % Saturation Unsat Iron Binding Total Bilirubin AST ALT Alkaline Phosphatase Lactate Dehydrogenase Troponin I High Sens C-Reactive Protein B-Natriuretic Peptide Total Protein Albumin Triglycerides Cholesterol LDL Cholesterol, Calc HDL Cholesterol Lipase Procalcitonin TSH Urine Color Urine Appearance Urine pH Ur Specific [place] Urine Protein Urine Glucose (UA) Urine Ketones Urine Blood Urine Nitrite Ur Leukocyte Esterase Urine RBC Urine WBC Ur Squamous Epith Cells Urine Bacteria Hyaline Casts Granular Casts Urine Yeast Urine Eosinophils % U Random Total Protein Urine Creatinine Stool Occult Blood Random Vancomycin Urine Opiates Screen Urine Fentanyl Screen Ur Barbiturates Screen Ur Phencyclidine Scrn Ur Amphetamines Screen U Benzodiazepines Scrn Urine Cocaine Screen U Marijuana (THC) Screen Ethyl Alcohol Lymphocyte Subset Cmmnt Total Lymphocytes % CD3 Cells Absolute CD3 Count % CD4 Cells Absolute CD4 Count CD4/CD8 Ratio % CD8 Cells Absolute CD8 Count Hep C Viral Load Hep C Viral Load Log HIV-1 RNA copies/mL HIV-1 RNA logcopies/mL Influenza Type A (PCR) Influenza Type B (PCR) RSV RNA Qual (PCR) SARS-CoV-2 RNA (RT-PCR) Blood Type Antibody Screen Antibody Identification JENNIFER, Polyspecific Positive JENNIFER Work-up Crossmatch ([facility]) 10/18/23 10/18/23 10/19/23 20:08 23:42 05:34 WBC 9.3 RBC 3.19 L Hgb 7.1 L Hct 20.8 L* MCV 65.2 L MCH 22.3 L MCHC 34.1 RDW 15.7 Plt Count 275 MPV 11.0 Immature Gran % (Auto) 1.3 H Neut % (Auto) 78.7 H Lymph % (Auto) 8.7 L Lewis % (Auto) 8.5 Eos % (Auto) 2.5 Baso % (Auto) 0.3 Lymph # (Auto) 0.8 L Lewis # (Auto) 0.8 Eos # (Auto) 0.2 Baso # (Auto) 0.0 Abs Immat Gran (auto) 0.12 H Absolute Neuts (auto) 7.4 Absolute Nucleated RBC 0.020 H Nucleated RBC % (auto) 0.2 Neutrophils % (Manual) Band Neutrophils % Lymphocytes % (Manual) Monocytes % (Manual) Eosinophils % (Manual) Basophils % (Manual) Abs Neuts (Manual) Lymphocytes # (Manual) Monocytes # (Manual) Eosinophils # (Manual) Basophils # (Manual) Nucleated RBCs Smudge Cells Platelet Estimate Large Platelets Plt Morphology Comment RBC Morphology Polychromasia Microcytosis Macrocytosis Target Cells Tear Drop Cells Amonate Cells Acanthocytes (Spur) Schistocytes Smear Tech's Comments Smear Path Review Hold Purple Top PT INR APTT O2 Saturation ABG pH at Pt Temp ABG pCO2 at Pt Temp ABG pO2 at Pt Temp ABG HCO3 ABG Base Excess (Actual) VBG pH VBG pCO2 VBG pO2 VBG HCO3 VBG O2 Saturation VBG Base Excess Sodium 145 Potassium 3.3 Chloride 112 H Carbon Dioxide 21 L Anion Gap 15 BUN 57 H Creatinine 1.71 H Estim Creat Clear Calc 40.2 Estimated GFR 41 POC Glucose 205 H 187 H Random Glucose 248 H Estimat Average Glucose Hemoglobin A1c % Lactic Acid Lactic Acid F/U @ 2Hr Calcium 9.7 Phosphorus Magnesium Iron 16 L TIBC 89 L % Saturation 18 Unsat Iron Binding 73 Total Bilirubin 0.6 AST 37 ALT 14 Alkaline Phosphatase 60 Lactate Dehydrogenase Troponin I High Sens C-Reactive Protein B-Natriuretic Peptide Total Protein 7.8 Albumin 3.7 Triglycerides Cholesterol LDL Cholesterol, Calc HDL Cholesterol Lipase Procalcitonin TSH Urine Color Urine Appearance Urine pH Ur Specific [place] Urine Protein Urine Glucose (UA) Urine Ketones Urine Blood Urine Nitrite Ur Leukocyte Esterase Urine RBC Urine WBC Ur Squamous Epith Cells Urine Bacteria Hyaline Casts Granular Casts Urine Yeast Urine Eosinophils % U Random Total Protein Urine Creatinine Stool Occult Blood Random Vancomycin Urine Opiates Screen Urine Fentanyl Screen Ur Barbiturates Screen Ur Phencyclidine Scrn Ur Amphetamines Screen U Benzodiazepines Scrn Urine Cocaine Screen U Marijuana (THC) Screen Ethyl Alcohol Lymphocyte Subset Cmmnt Total Lymphocytes % CD3 Cells Absolute CD3 Count % CD4 Cells Absolute CD4 Count CD4/CD8 Ratio % CD8 Cells Absolute CD8 Count Hep C Viral Load Hep C Viral Load Log HIV-1 RNA copies/mL HIV-1 RNA logcopies/mL Influenza Type A (PCR) Influenza Type B (PCR) RSV RNA Qual (PCR) SARS-CoV-2 RNA (RT-PCR) Blood Type Antibody Screen Antibody Identification JENNIFER, Polyspecific Positive JENNIFER Work-up Crossmatch ([facility]) 10/19/23 10/19/23 10/19/23 06:38 06:46 07:15 WBC 9.0 RBC 4.94 D Hgb 11.9 L D Hct 36.0 L D MCV 72.9 L D MCH 24.1 L MCHC 33.1 RDW 24.7 H Plt Count 206 D MPV Not Reportable Immature Gran % (Auto) 1.6 H Neut % (Auto) 70.8 Lymph % (Auto) 17.4 L Lewis % (Auto) 7.5 Eos % (Auto) 2.1 Baso % (Auto) 0.6 Lymph # (Auto) 1.6 Lewis # (Auto) 0.7 Eos # (Auto) 0.2 Baso # (Auto) 0.1 Abs Immat Gran (auto) 0.14 H Absolute Neuts (auto) 6.4 Absolute Nucleated RBC 0.030 H Nucleated RBC % (auto) 0.3 H Neutrophils % (Manual) Band Neutrophils % Lymphocytes % (Manual) Monocytes % (Manual) Eosinophils % (Manual) Basophils % (Manual) Abs Neuts (Manual) Lymphocytes # (Manual) Monocytes # (Manual) Eosinophils # (Manual) Basophils # (Manual) Nucleated RBCs Smudge Cells Platelet Estimate Large Platelets Plt Morphology Comment RBC Morphology Polychromasia Microcytosis Macrocytosis Target Cells Tear Drop Cells Amonate Cells Acanthocytes (Spur) Schistocytes Smear Tech's Comments VERIFIED Smear Path Review Hold Purple Top PT INR APTT O2 Saturation ABG pH at Pt Temp ABG pCO2 at Pt Temp ABG pO2 at Pt Temp ABG HCO3 ABG Base Excess (Actual) VBG pH 7.44 H VBG pCO2 27 VBG pO2 67 VBG HCO3 19 L VBG O2 Saturation 90.0 VBG Base Excess -3.5 Sodium 144 Potassium 3.8 Chloride 116 H Carbon Dioxide 17 L Anion Gap 15 BUN 54 H Creatinine 1.52 H Estim Creat Clear Calc 46.9 Estimated GFR 47 POC Glucose Random Glucose 148 H Estimat Average Glucose Hemoglobin A1c % Lactic Acid Lactic Acid F/U @ 2Hr Calcium 9.4 Phosphorus Magnesium Iron TIBC % Saturation Unsat Iron Binding Total Bilirubin AST ALT Alkaline Phosphatase Lactate Dehydrogenase Troponin I High Sens C-Reactive Protein B-Natriuretic Peptide Total Protein Albumin Triglycerides Cholesterol LDL Cholesterol, Calc HDL Cholesterol Lipase Procalcitonin TSH Urine Color Urine Appearance Urine pH Ur Specific [place] Urine Protein Urine Glucose (UA) Urine Ketones Urine Blood Urine Nitrite Ur Leukocyte Esterase Urine RBC Urine WBC Ur Squamous Epith Cells Urine Bacteria Hyaline Casts Granular Casts Urine Yeast Urine Eosinophils % U Random Total Protein Urine Creatinine Stool Occult Blood NEGATIVE Random Vancomycin 14.3 L Urine Opiates Screen Urine Fentanyl Screen Ur Barbiturates Screen Ur Phencyclidine Scrn Ur Amphetamines Screen U Benzodiazepines Scrn Urine Cocaine Screen U Marijuana (THC) Screen Ethyl Alcohol Lymphocyte Subset Cmmnt Total Lymphocytes % CD3 Cells Absolute CD3 Count % CD4 Cells Absolute CD4 Count CD4/CD8 Ratio % CD8 Cells Absolute CD8 Count Hep C Viral Load Hep C Viral Load Log HIV-1 RNA copies/mL HIV-1 RNA logcopies/mL Influenza Type A (PCR) Influenza Type B (PCR) RSV RNA Qual (PCR) SARS-CoV-2 RNA (RT-PCR) Blood Type Antibody Screen Antibody Identification JENNIFER, Polyspecific Positive JENNIFER Work-up Crossmatch ([facility]) 10/19/23 10/19/23 10/19/23 11:08 17:27 23:44 WBC RBC Hgb Hct MCV MCH MCHC RDW Plt Count MPV Immature Gran % (Auto) Neut % (Auto) Lymph % (Auto) Lewis % (Auto) Eos % (Auto) Baso % (Auto) Lymph # (Auto) Lewis # (Auto) Eos # (Auto) Baso # (Auto) Abs Immat Gran (auto) Absolute Neuts (auto) Absolute Nucleated RBC Nucleated RBC % (auto) Neutrophils % (Manual) Band Neutrophils % Lymphocytes % (Manual) Monocytes % (Manual) Eosinophils % (Manual) Basophils % (Manual) Abs Neuts (Manual) Lymphocytes # (Manual) Monocytes # (Manual) Eosinophils # (Manual) Basophils # (Manual) Nucleated RBCs Smudge Cells Platelet Estimate Large Platelets Plt Morphology Comment RBC Morphology Polychromasia Microcytosis Macrocytosis Target Cells Tear Drop Cells Amonate Cells Acanthocytes (Spur) Schistocytes Smear Tech's Comments Smear Path Review Hold Purple Top PT INR APTT O2 Saturation ABG pH at Pt Temp ABG pCO2 at Pt Temp ABG pO2 at Pt Temp ABG HCO3 ABG Base Excess (Actual) VBG pH VBG pCO2 VBG pO2 VBG HCO3 VBG O2 Saturation VBG Base Excess Sodium Potassium Chloride Carbon Dioxide Anion Gap BUN Creatinine Estim Creat Clear Calc Estimated GFR POC Glucose 129 H 197 H 225 H Random Glucose Estimat Average Glucose Hemoglobin A1c % Lactic Acid Lactic Acid F/U @ 2Hr Calcium Phosphorus Magnesium Iron TIBC % Saturation Unsat Iron Binding Total Bilirubin AST ALT Alkaline Phosphatase Lactate Dehydrogenase Troponin I High Sens C-Reactive Protein B-Natriuretic Peptide Total Protein Albumin Triglycerides Cholesterol LDL Cholesterol, Calc HDL Cholesterol Lipase Procalcitonin TSH Urine Color Urine Appearance Urine pH Ur Specific [place] Urine Protein Urine Glucose (UA) Urine Ketones Urine Blood Urine Nitrite Ur Leukocyte Esterase Urine RBC Urine WBC Ur Squamous Epith Cells Urine Bacteria Hyaline Casts Granular Casts Urine Yeast Urine Eosinophils % U Random Total Protein Urine Creatinine Stool Occult Blood Random Vancomycin Urine Opiates Screen Urine Fentanyl Screen Ur Barbiturates Screen Ur Phencyclidine Scrn Ur Amphetamines Screen U Benzodiazepines Scrn Urine Cocaine Screen U Marijuana (THC) Screen Ethyl Alcohol Lymphocyte Subset Cmmnt Total Lymphocytes % CD3 Cells Absolute CD3 Count % CD4 Cells Absolute CD4 Count CD4/CD8 Ratio % CD8 Cells Absolute CD8 Count Hep C Viral Load Hep C Viral Load Log HIV-1 RNA copies/mL HIV-1 RNA logcopies/mL Influenza Type A (PCR) Influenza Type B (PCR) RSV RNA Qual (PCR) SARS-CoV-2 RNA (RT-PCR) Blood Type Antibody Screen Antibody Identification JENNIFER, Polyspecific Positive JENNIEFR Work-up Crossmatch ([facility]) 10/20/23 10/20/23 10/20/23 04:48 06:02 07:33 WBC 8.7 RBC 4.17 L Hgb 9.8 L Hct 28.9 L MCV 69.3 L MCH 23.5 L MCHC 33.9 RDW 22.5 H Plt Count 279 D MPV 10.5 Immature Gran % (Auto) 0.8 H Neut % (Auto) 77.9 H Lymph % (Auto) 10.4 L Lewis % (Auto) 8.2 Eos % (Auto) 2.4 Baso % (Auto) 0.3 Lymph # (Auto) 0.9 L Lewis # (Auto) 0.7 Eos # (Auto) 0.2 Baso # (Auto) 0.0 Abs Immat Gran (auto) 0.07 H Absolute Neuts (auto) 6.8 Absolute Nucleated RBC 0.020 H Nucleated RBC % (auto) 0.2 Neutrophils % (Manual) Band Neutrophils % Lymphocytes % (Manual) Monocytes % (Manual) Eosinophils % (Manual) Basophils % (Manual) Abs Neuts (Manual) Lymphocytes # (Manual) Monocytes # (Manual) Eosinophils # (Manual) Basophils # (Manual) Nucleated RBCs Smudge Cells Platelet Estimate Large Platelets Plt Morphology Comment RBC Morphology Polychromasia Microcytosis Macrocytosis Target Cells Tear Drop Cells Brady Cells Acanthocytes (Spur) Schistocytes Smear Tech's Comments Smear Path Review Hold Purple Top PT INR APTT O2 Saturation ABG pH at Pt Temp ABG pCO2 at Pt Temp ABG pO2 at Pt Temp ABG HCO3 ABG Base Excess (Actual) VBG pH 7.45 H VBG pCO2 29 VBG pO2 38 VBG HCO3 21 L VBG O2 Saturation 56.0 VBG Base Excess -1.7 Sodium 146 H Potassium 3.5 Chloride 113 H Carbon Dioxide 21 L Anion Gap 16 BUN 47 H Creatinine 1.63 H Estim Creat Clear Calc 43.7 Estimated GFR 43 POC Glucose 115 Random Glucose 86 Estimat Average Glucose Hemoglobin A1c % Lactic Acid Lactic Acid F/U @ 2Hr Calcium 9.7 Phosphorus 3.8 Magnesium 1.7 Iron TIBC % Saturation Unsat Iron Binding Total Bilirubin AST ALT Alkaline Phosphatase Lactate Dehydrogenase Troponin I High Sens C-Reactive Protein B-Natriuretic Peptide Total Protein Albumin Triglycerides Cholesterol LDL Cholesterol, Calc HDL Cholesterol Lipase Procalcitonin TSH Urine Color Urine Appearance Urine pH Ur Specific [place] Urine Protein Urine Glucose (UA) Urine Ketones Urine Blood Urine Nitrite Ur Leukocyte Esterase Urine RBC Urine WBC Ur Squamous Epith Cells Urine Bacteria Hyaline Casts Granular Casts Urine Yeast Urine Eosinophils % U Random Total Protein Urine Creatinine Stool Occult Blood Random Vancomycin 16.1 Urine Opiates Screen Urine Fentanyl Screen Ur Barbiturates Screen Ur Phencyclidine Scrn Ur Amphetamines Screen U Benzodiazepines Scrn Urine Cocaine Screen U Marijuana (THC) Screen Ethyl Alcohol Lymphocyte Subset Cmmnt Total Lymphocytes % CD3 Cells Absolute CD3 Count % CD4 Cells Absolute CD4 Count CD4/CD8 Ratio % CD8 Cells Absolute CD8 Count Hep C Viral Load Hep C Viral Load Log HIV-1 RNA copies/mL HIV-1 RNA logcopies/mL Influenza Type A (PCR) Influenza Type B (PCR) RSV RNA Qual (PCR) SARS-CoV-2 RNA (RT-PCR) Blood Type Antibody Screen Antibody Identification JENNIFER, Polyspecific Positive JENNIFER Work-up Crossmatch ([facility]) 10/20/23 10/20/23 10/20/23 12:33 17:40 23:54 WBC RBC Hgb Hct MCV MCH MCHC RDW Plt Count MPV Immature Gran % (Auto) Neut % (Auto) Lymph % (Auto) Lewis % (Auto) Eos % (Auto) Baso % (Auto) Lymph # (Auto) Lewis # (Auto) Eos # (Auto) Baso # (Auto) Abs Immat Gran (auto) Absolute Neuts (auto) Absolute Nucleated RBC Nucleated RBC % (auto) Neutrophils % (Manual) Band Neutrophils % Lymphocytes % (Manual) Monocytes % (Manual) Eosinophils % (Manual) Basophils % (Manual) Abs Neuts (Manual) Lymphocytes # (Manual) Monocytes # (Manual) Eosinophils # (Manual) Basophils # (Manual) Nucleated RBCs Smudge Cells Platelet Estimate Large Platelets Plt Morphology Comment RBC Morphology Polychromasia Microcytosis Macrocytosis Target Cells Tear Drop Cells Brady Cells Acanthocytes (Spur) Schistocytes Smear Tech's Comments Smear Path Review Hold Purple Top PT INR APTT O2 Saturation ABG pH at Pt Temp ABG pCO2 at Pt Temp ABG pO2 at Pt Temp ABG HCO3 ABG Base Excess (Actual) VBG pH VBG pCO2 VBG pO2 VBG HCO3 VBG O2 Saturation VBG Base Excess Sodium Potassium Chloride Carbon Dioxide Anion Gap BUN Creatinine Estim Creat Clear Calc Estimated GFR POC Glucose 237 H 205 H 236 H Random Glucose Estimat Average Glucose Hemoglobin A1c % Lactic Acid Lactic Acid F/U @ 2Hr Calcium Phosphorus Magnesium Iron TIBC % Saturation Unsat Iron Binding Total Bilirubin AST ALT Alkaline Phosphatase Lactate Dehydrogenase Troponin I High Sens C-Reactive Protein B-Natriuretic Peptide Total Protein Albumin Triglycerides Cholesterol LDL Cholesterol, Calc HDL Cholesterol Lipase Procalcitonin TSH Urine Color Urine Appearance Urine pH Ur Specific [place] Urine Protein Urine Glucose (UA) Urine Ketones Urine Blood Urine Nitrite Ur Leukocyte Esterase Urine RBC Urine WBC Ur Squamous Epith Cells Urine Bacteria Hyaline Casts Granular Casts Urine Yeast Urine Eosinophils % U Random Total Protein Urine Creatinine Stool Occult Blood Random Vancomycin Urine Opiates Screen Urine Fentanyl Screen Ur Barbiturates Screen Ur Phencyclidine Scrn Ur Amphetamines Screen U Benzodiazepines Scrn Urine Cocaine Screen U Marijuana (THC) Screen Ethyl Alcohol Lymphocyte Subset Cmmnt Total Lymphocytes % CD3 Cells Absolute CD3 Count % CD4 Cells Absolute CD4 Count CD4/CD8 Ratio % CD8 Cells Absolute CD8 Count Hep C Viral Load Hep C Viral Load Log HIV-1 RNA copies/mL HIV-1 RNA logcopies/mL Influenza Type A (PCR) Influenza Type B (PCR) RSV RNA Qual (PCR) SARS-CoV-2 RNA (RT-PCR) Blood Type Antibody Screen Antibody Identification JENNIFER, Polyspecific Positive JENNIFER Work-up Crossmatch ([facility]) 10/21/23 10/21/23 10/21/23 05:18 05:23 05:41 WBC 7.8 RBC 4.12 L Hgb 9.6 L Hct 28.7 L MCV 69.7 L MCH 23.3 L MCHC 33.4 RDW 22.4 H Plt Count 251 MPV 9.9 Immature Gran % (Auto) 1.0 H Neut % (Auto) 79.3 H Lymph % (Auto) 8.9 L Lewis % (Auto) 8.1 Eos % (Auto) 2.3 Baso % (Auto) 0.4 Lymph # (Auto) 0.7 L Lewis # (Auto) 0.6 Eos # (Auto) 0.2 Baso # (Auto) 0.0 Abs Immat Gran (auto) 0.08 H Absolute Neuts (auto) 6.2 Absolute Nucleated RBC 0.020 H Nucleated RBC % (auto) 0.3 H Neutrophils % (Manual) Band Neutrophils % Lymphocytes % (Manual) Monocytes % (Manual) Eosinophils % (Manual) Basophils % (Manual) Abs Neuts (Manual) Lymphocytes # (Manual) Monocytes # (Manual) Eosinophils # (Manual) Basophils # (Manual) Nucleated RBCs Smudge Cells Platelet Estimate Large Platelets Plt Morphology Comment RBC Morphology Polychromasia Microcytosis Macrocytosis Target Cells Tear Drop Cells Amonate Cells Acanthocytes (Spur) Schistocytes Smear Tech's Comments Smear Path Review Hold Purple Top PT INR APTT O2 Saturation ABG pH at Pt Temp ABG pCO2 at Pt Temp ABG pO2 at Pt Temp ABG HCO3 ABG Base Excess (Actual) VBG pH 7.39 VBG pCO2 31 VBG pO2 43 VBG HCO3 19 L VBG O2 Saturation 65.0 VBG Base Excess -4.3 Sodium 140 Potassium 3.9 Chloride 111 H Carbon Dioxide 19 L Anion Gap 14 BUN 39 H Creatinine 1.25 Estim Creat Clear Calc 57.0 Estimated GFR 58 POC Glucose 135 H Random Glucose 140 H Estimat Average Glucose Hemoglobin A1c % Lactic Acid Lactic Acid F/U @ 2Hr Calcium 9.1 D Phosphorus Magnesium Iron TIBC % Saturation Unsat Iron Binding Total Bilirubin AST ALT Alkaline Phosphatase Lactate Dehydrogenase Troponin I High Sens C-Reactive Protein B-Natriuretic Peptide Total Protein Albumin Triglycerides Cholesterol LDL Cholesterol, Calc HDL Cholesterol Lipase Procalcitonin TSH Urine Color Urine Appearance Urine pH Ur Specific [place] Urine Protein Urine Glucose (UA) Urine Ketones Urine Blood Urine Nitrite Ur Leukocyte Esterase Urine RBC Urine WBC Ur Squamous Epith Cells Urine Bacteria Hyaline Casts Granular Casts Urine Yeast Urine Eosinophils % U Random Total Protein Urine Creatinine Stool Occult Blood Random Vancomycin Urine Opiates Screen Urine Fentanyl Screen Ur Barbiturates Screen Ur Phencyclidine Scrn Ur Amphetamines Screen U Benzodiazepines Scrn Urine Cocaine Screen U Marijuana (THC) Screen Ethyl Alcohol Lymphocyte Subset Cmmnt Total Lymphocytes % CD3 Cells Absolute CD3 Count % CD4 Cells Absolute CD4 Count CD4/CD8 Ratio % CD8 Cells Absolute CD8 Count Hep C Viral Load Hep C Viral Load Log HIV-1 RNA copies/mL HIV-1 RNA logcopies/mL Influenza Type A (PCR) Influenza Type B (PCR) RSV RNA Qual (PCR) SARS-CoV-2 RNA (RT-PCR) Blood Type Antibody Screen Antibody Identification JENNIFER, Polyspecific Positive JENNIFER Work-up Crossmatch ([facility]) 10/21/23 08:51 WBC RBC Hgb Hct MCV MCH MCHC RDW Plt Count MPV Immature Gran % (Auto) Neut % (Auto) Lymph % (Auto) Lewis % (Auto) Eos % (Auto) Baso % (Auto) Lymph # (Auto) Lewis # (Auto) Eos # (Auto) Baso # (Auto) Abs Immat Gran (auto) Absolute Neuts (auto) Absolute Nucleated RBC Nucleated RBC % (auto) Neutrophils % (Manual) Band Neutrophils % Lymphocytes % (Manual) Monocytes % (Manual) Eosinophils % (Manual) Basophils % (Manual) Abs Neuts (Manual) Lymphocytes # (Manual) Monocytes # (Manual) Eosinophils # (Manual) Basophils # (Manual) Nucleated RBCs Smudge Cells Platelet Estimate Large Platelets Plt Morphology Comment RBC Morphology Polychromasia Microcytosis Macrocytosis Target Cells Tear Drop Cells Brady Cells Acanthocytes (Spur) Schistocytes Smear Tech's Comments Smear Path Review Hold Purple Top PT INR APTT O2 Saturation ABG pH at Pt Temp ABG pCO2 at Pt Temp ABG pO2 at Pt Temp ABG HCO3 ABG Base Excess (Actual) VBG pH VBG pCO2 VBG pO2 VBG HCO3 VBG O2 Saturation VBG Base Excess Sodium Potassium Chloride Carbon Dioxide Anion Gap BUN Creatinine Estim Creat Clear Calc Estimated GFR POC Glucose Random Glucose Estimat Average Glucose Hemoglobin A1c % Lactic Acid Lactic Acid F/U @ 2Hr Calcium Phosphorus Magnesium Iron TIBC % Saturation Unsat Iron Binding Total Bilirubin AST ALT Alkaline Phosphatase Lactate Dehydrogenase Troponin I High Sens C-Reactive Protein B-Natriuretic Peptide Total Protein Albumin Triglycerides Cholesterol LDL Cholesterol, Calc HDL Cholesterol Lipase Procalcitonin TSH Urine Color Urine Appearance Urine pH Ur Specific [place] Urine Protein Urine Glucose (UA) Urine Ketones Urine Blood Urine Nitrite Ur Leukocyte Esterase Urine RBC Urine WBC Ur Squamous Epith Cells Urine Bacteria Hyaline Casts Granular Casts Urine Yeast Urine Eosinophils % U Random Total Protein Urine Creatinine Stool Occult Blood Random Vancomycin Urine Opiates Screen Urine Fentanyl Screen Ur Barbiturates Screen Ur Phencyclidine Scrn Ur Amphetamines Screen U Benzodiazepines Scrn Urine Cocaine Screen U Marijuana (THC) Screen Ethyl Alcohol Lymphocyte Subset Cmmnt Total Lymphocytes % CD3 Cells Absolute CD3 Count % CD4 Cells Absolute CD4 Count CD4/CD8 Ratio % CD8 Cells Absolute CD8 Count Hep C Viral Load Hep C Viral Load Log HIV-1 RNA copies/mL HIV-1 RNA logcopies/mL Influenza Type A (PCR) Influenza Type B (PCR) RSV RNA Qual (PCR) SARS-CoV-2 RNA (RT-PCR) Blood Type O Positive Antibody Screen POSITIVE Antibody Identification Anti-M JENNIFER, Polyspecific Positive JENNIFER Work-up Crossmatch ([facility]) Narrative Narrative: Patient is intubated in ICU. Vent settings as above. Airway Heart: See above echo report Lungs: On ventilator. Settings per above. Assessment and Plan Assessment Anesthesia Assessment: Anesthesia Plan Discussed (with son/HCP Earl) and Chart Reviewed Final Anesthetic Review Family History of Problems with Anesthesia: No History of Problems with Anesthesia: No NPO: Yes ASA Class: IV Final Preanesthetic Review: No Changes in Pt Med Stat, Meds/Allgs Chart Reviewed, Consent Obtained/Reviewed and Anes Risks/Benef Reviewed Patient Risk: High Procedure Risk: Intermediate Anesthetic Plan Anesthetic Plan: GA and Agree w/ Assess. and Plan Disposition: Standard PACU
--- NOTE | 2023-10-21 11:56 | MHC.CM.PN ---
Pt is presently in the OR undergoing a peg/trach placement in anticipation of LTACH transfer. Referred to [facility]: partial clinical updates remitted to [facility] - hopeful transfer next week. CM to follow for finalization of d/c needs.
[2023-10-21 12:01] LABS: Glucose, Whole Blood 137 mg/dL (60-115)
--- NOTE | 2023-10-21 13:24 | P.OP_ITS ---
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 He currently requires a new tracheostomy for ventilatory dependence. Intraoperative findings demonstrated marked scarring and cicatrization the patient's prior surgery. Patient had uneventful tracheostomy placement with 8. Shiley tracheostomy tube Findings: [] Patient brought to the operating room, placed on operative table in supine position, patient was already intubated from the ICU, and after an adequate level of general anesthesia was induced, the patient's neck was prepped and draped in usual sterile fashion. Proposed incision site was infiltrated 0.5% Marcaine/1% lidocaine. A transverse by elliptical incision encompassing the prior scar from the patient's previous tracheostomy was carried down through skin, subcutaneous tissue, and undermined using Bovie. Dissection down to the trachea was uneventfully accomplished and the isthmus of the thyroid retracted superiorly. In coordination with anesthesia, a transverse tracheotomy was made at approximately the 2nd / 3rd tracheal ring and in synchronization with anesthesia, as the endotracheal tube was retracted to just above the tracheotomy site, tracheostomy tube was advanced in the distal trachea. This was connected to the anesthesia circuit with good end-tidal CO2, O2 saturations, and chest movement. The wound Was irrigated and secured for hemostasis. Interrupted inverted dermal 3-0 Vicryl sutures were used to close the skin incision on either site of the tracheostomy site. Tracheostomy was then secured to the skin bilaterally using 2-0 silk sutures. Next the Velcro strap was placed and also used to secure the trachea in place. Sponge, needle, and instrument counts were reported correct. EBL minimum. Patient tolerated the procedure well and patient was having a PEG tube to follow the tracheostomy tube placement. Please refer Dr. Berman dictation regarding this.
--- NOTE | 2023-10-21 13:36 | P.OP_ITS ---
Operative Note Operative Note Date of Service: 10/21/23 Narrative: Preop diagnosis: hypoxic respiratory failure, COPD Postop diagnosis: The same Procedure:PEG tube placement Surgeon: Evan Berman MD mailing machine assistant: YOBANI Mccoy The patient is a 62-year-old male with respiratory failure from COPD and multiple medical problems, and had been unamenable off the vent. He was referred for PEG tube placement along with the tracheostomy. The tracheostomy was done by Dr. Bateman. Consent had been given by the son and he understood the technique of the procedure as well as the risks, benefits, and alternatives. The patient was in the operating room with the new trach tube in place. A bite block was in position. I inserted the bite block into the oropharynx. The vocal cords were visualized. The esophageal slit was seen posterior to this. This esophageal slit was intubated. The scope was advanced all the way to the stomach and the stomach was insufflated. Transillumination was seen in the left upper quadrant. Furthermore, indentation of the anterior stomach wall was easily seen with pressure on the left upper quadrant with a finger. This area was therefore infiltrated with lidocaine 1% after prepping and draping. The large bore needle was inserted and this was easily seen in the stomach lumen. The guidewire was inserted through this needle. The guidewire was grasped with a snare. The guidewire was pulled along with the endoscope out through the oral orifice. I looped the guidewire into the PEG tube. The guidewire was then pulled from the abdominal wall along with the G-tube until the PEG tube was snug on the anterior stomach wall. I reinserted the scope and examined the internal bolster in the stomach lumen and this appeared to be in good position. There was no bleeding. The scope was then withdrawn completely. The external bolster was positioned to make this snug on the skin. The patient tolerated the procedure well. There was no significant blood loss. There were no immediate complications. The patient was transferred back to the ICU in with stable vital signs.
[2023-10-21 17:28] LABS: Glucose, Whole Blood 138 mg/dL (60-115)
[2023-10-21] MEDS: HYDROmorphone HCl 0.5 MG/0.5 ML SYRINGE IVPUSH (20:22)
[2023-10-21] MEDS: Norepinephrine Bitartrate/D5W 8 MG/250 ML PLAST..BAG 5.93 MG IV (21:55)
[2023-10-22] VITALS (44 sets, daily range): BP systolic 84–130; BP diastolic 55–87; PULSE 85–114; RESP 18–40; TEMP 34.8–39.3; O2SAT 5–100
[2023-10-22 00:10] LABS: Glucose, Whole Blood 172 mg/dL (60-115)
[2023-10-22] MEDS: HYDROmorphone HCl 0.5 MG/0.5 ML SYRINGE IVPUSH ×6 (00:57→20:02)
[2023-10-22] MEDS: dexmedeTOMIDidine HCL/NS 400 MCG/100 ML INFUS..BTL 19.32 MCG IVCONT ×2 (03:28→08:28)
[2023-10-22] MEDS: metroNIDAZOLE/NS 500 MG/100 ML PIGGYBACK 100 MG IV ×3 (03:56→19:06)
[2023-10-22] MEDS: propofoL 1,000 MG/100 ML VIAL 16.01 MG IVCONT ×2 (04:40→08:59)
[2023-10-22] MEDS: Piperacillin Sodium/Tazobactam 2.25 GM in 0.9 % Sodium Chloride 50 ML IV ×4 (05:21→22:16)
[2023-10-22 05:30] LABS: VBG Base Excess -4.3 mmol/L; VBG HCO3 18 mmol/L (22-26); VBG pCO2 25 mmHg; VBG pH 7.46 (7.32-7.43); VBG pO2 38 mmHg
[2023-10-22 05:36] LABS: Glucose, Whole Blood 152 mg/dL (60-115)
[2023-10-22 05:48] LABS: MANUAL DIFF FLAG NO
[2023-10-22 05:52] LABS: Basophils Percent Auto 0.1 % (0-2); Eosinophils Absolute Auto 0.1 X10*3/uL (0.0-0.4); Eosinophils Percent Auto 1.4 % (0-4); Hematocrit 28.9 % (42.0-52.0); Hemoglobin 9.5 g/dl (14.0-18.0); Imm Gran Abs Auto 0.06 X10*3/uL (0.00-0.03); Imm Gran Pct Auto 0.8 % (0.0-0.4); Lymphocytes Absolute Auto 0.9 X10*3/uL (1.2-4.9); Lymphocytes Percent Auto 12.2 % (20-40); Mean Corpuscular HGB Conc 32.9 g/dl (31.0-36.0); Mean Corpuscular Hemoglobin 23.4 pg (27.0-33.0); Mean Corpuscular Volume 71.2 fL (80.0-98.0); Mean Platelet Volume 10.4 fL (9.4-12.4); Monocytes Absolute Auto 0.5 X10*3/uL (0.1-1.2); Monocytes Percent Auto 7.2 % (2-11); NRBC Pct Auto 0.3 /100WBC (0.0-0.2); Neutrophils Absolute Auto 5.8 x10*3/uL (2.0-8.3); Neutrophils Percent Auto 78.3 % (45-73); Platelet Count 263 X10*3/uL (160-400); Red Blood Count 4.06 X10*6/uL (4.60-5.80); Red Cell Distribution Width 22.6 % (11.0-16.0); White Blood Count 7.4 X10*3/uL (4.8-10.8)
[2023-10-22 05:53] LABS: Venous Blood Gas Refer to POC result
[2023-10-22 06:10] LABS: Anion Gap 14 (12-20); Blood Urea Nitrogen 40 mg/dL (9-16); Calcium 8.8 mg/dL (8.4-10.2); Carbon Dioxide 17 mmol/L (22-29); Chloride 115 mmol/L (96-108); Creatinine Clr Calc Pharmacy 47.5; Estimated Glomerular Filt Rate 47; Glucose Random 155 mg/dL (60-115); Sodium 142 mmol/L (135-145)
[2023-10-22 06:11] LABS: Magnesium 1.8 mg/dL (1.6-2.6); Phosphorus 2.7 mg/dL (2.7-4.5)
[2023-10-22] MEDS: 0.9 % Sodium Chloride Flush 10 ML SYRINGE IVFLUSH ×3 (07:13→22:19)
[2023-10-22 07:29] LABS: Vancomycin Random 17.4 mcg/mL (15-20)
[2023-10-22] MEDS: Albuterol/Iprat 2.5/0.5MG 3 ML AMPUL.NEB INHALE ×4 (07:38→19:13)
--- NOTE | 2023-10-22 07:43 | PM.CCPN ---
Subjective Subjective Date of Service: 10/22/23 Interval History: no significant overnight events Critical Care Time (minutes): 90 Physical Exam Vital Signs: Vital Signs: Last Vital Signs Temp 99.0 F 10/22/23 03:49 Pulse 90 10/22/23 07:00 Resp 21 H 10/22/23 07:00 BP 97/58 L 10/22/23 07:00 Pulse Ox 94 10/22/23 07:00 O2 Del Method Mechanical Ventil ation 10/22/23 07:00 O2 Flow Rate 50 10/14/23 10:00 FiO2 35 10/22/23 07:00 BMI result Body Mass Index 21.7 Const: General: no acute distress and well developed HEENT: Other: appreciable trach with dried blood, midline; no appreciable fluctuance, induration Head: Yes normal to inspection, Yes normocephalic and Yes atraumatic Eyes: General: appearance normal, both eyes and all related structures Neck: Other: as described above Neck: Yes full ROM, Yes trachea midline and Yes supple Chest: Chest palpation & inspection: normal inspection of the chest Resp: Other: no appreciable rales, rhonchi, wheezing Effort & Inspection: normal respiratory effort Cardio: Rate: regular rate Rhythm: regular rhythm GI: Other: G tube in RUQ with overlying bandage; no appreciable fluctuance, induration Inspection: Yes normal to inspection, No Abdominal wall edema and No distended Palpation (GI): Soft to palpation, not firm, nontender, no guarding and not rigid : Male General Exam: Yes normal external exam Skin: General skin exam: no rashes or lesions noted Neuro: General: tone normal and no focal motor deficits Extrem: General: Yes normal to inspection, Yes capillary refill normal and Yes no clubbing, cyanosis or edema Psych: Appearance: grossly normal Objective Data Labs 10/22/23 05:17 10/22/23 05:17 Labs: Laboratory Results - last 24 hr 10/21/23 10/21/23 10/21/23 08:51 11:57 17:20 WBC RBC Hgb Hct MCV MCH MCHC RDW Plt Count MPV Immature Gran % (Auto) Neut % (Auto) Lymph % (Auto) [place] % (Auto) Eos % (Auto) Baso % (Auto) Lymph # (Auto) [place] # (Auto) Eos # (Auto) Baso # (Auto) Abs Immat Gran (auto) Absolute Neuts (auto) Absolute Nucleated RBC Nucleated RBC % (auto) VBG pH VBG pCO2 VBG pO2 VBG HCO3 VBG O2 Saturation VBG Base Excess Sodium Potassium Chloride Carbon Dioxide Anion Gap BUN Creatinine Estim Creat Clear Calc Estimated GFR POC Glucose 137 H 138 H Random Glucose Calcium Phosphorus Magnesium Random Vancomycin Blood Type O Positive Antibody Screen POSITIVE Antibody Identification Anti-M JENNIFER, Polyspecific POSITIVE A Positive JENNIFER Work-up IgG=Pos P4p=Jte A Crossmatch ([facility]) See Detail 10/21/23 10/22/23 10/22/23 23:55 05:17 05:23 WBC 7.4 RBC 4.06 L Hgb 9.5 L Hct 28.9 L MCV 71.2 L MCH 23.4 L MCHC 32.9 RDW 22.6 H Plt Count 263 MPV 10.4 Immature Gran % (Auto) 0.8 H Neut % (Auto) 78.3 H Lymph % (Auto) 12.2 L [place] % (Auto) 7.2 Eos % (Auto) 1.4 Baso % (Auto) 0.1 Lymph # (Auto) 0.9 L [place] # (Auto) 0.5 Eos # (Auto) 0.1 Baso # (Auto) 0.0 Abs Immat Gran (auto) 0.06 H Absolute Neuts (auto) 5.8 Absolute Nucleated RBC 0.020 H Nucleated RBC % (auto) 0.3 H VBG pH 7.46 H VBG pCO2 25 VBG pO2 38 VBG HCO3 18 L VBG O2 Saturation 58.0 VBG Base Excess -4.3 Sodium 142 Potassium 4.0 Chloride 115 H Carbon Dioxide 17 L Anion Gap 14 BUN 40 H Creatinine 1.50 H Estim Creat Clear Calc 47.5 Estimated GFR 47 POC Glucose 172 H Random Glucose 155 H Calcium 8.8 Phosphorus 2.7 Magnesium 1.8 Random Vancomycin Blood Type Antibody Screen Antibody Identification JENNIFER, Polyspecific Positive JENNIFER Work-up Crossmatch ([facility]) 10/22/23 10/22/23 05:31 07:07 WBC RBC Hgb Hct MCV MCH MCHC RDW Plt Count MPV Immature Gran % (Auto) Neut % (Auto) Lymph % (Auto) [place] % (Auto) Eos % (Auto) Baso % (Auto) Lymph # (Auto) [place] # (Auto) Eos # (Auto) Baso # (Auto) Abs Immat Gran (auto) Absolute Neuts (auto) Absolute Nucleated RBC Nucleated RBC % (auto) VBG pH VBG pCO2 VBG pO2 VBG HCO3 VBG O2 Saturation VBG Base Excess Sodium Potassium Chloride Carbon Dioxide Anion Gap BUN Creatinine Estim Creat Clear Calc Estimated GFR POC Glucose 152 H Random Glucose Calcium Phosphorus Magnesium Random Vancomycin 17.4 Blood Type Antibody Screen Antibody Identification JENNIFER, Polyspecific Positive JENNIFER Work-up Crossmatch ([facility]) Microbiology Microbiology Results: Microbiology 10/02/23 06:40 Sputum - Suctioned Direct Acid Fast Bacilli Smear - Final 10/02/23 03:11 Blood - Central Line Blood Culture - Final No growth after 5 days. 10/02/23 03:11 Blood - Central Line Blood Culture - Final Coag negative Staphylococcus 10/02/23 06:40 Sputum - Suctioned Gram Stain - Final 10/02/23 06:40 Sputum - Suctioned Sputum Culture - Final 10/02/23 06:40 Urine Catheterized - Miguel Catheter Urine Culture - Final No growth. Progress Note: A&P Assessment and plan (1) AMBER (acute kidney injury): Status: Acute (2) HIV (human immunodeficiency virus infection): Status: Acute (3) Respiratory failure: Status: Acute (4) COPD (chronic obstructive pulmonary disease): Status: Acute (5) Hepatitis C: Status: Acute Plan Patient is a 62 Y M with HIV, HCV, COPD, presenting initially on 10/02 to ED w/ dyspnea, found to have influenza, c/f bacterial super-infection, in acute hypoxic respiratory failure, intubated; ICU course c/b septic shock, acute renal insufficiency, ileus; of not, patient extubated 10/12, re-intubated 10/13 d/t aspiration, c/b acute hypoxic respiratory failure N: sedated w/ dexmedetomidine, propofol gtt, wean as tolerated; c/f critical illness myopathy CV: hypotension, associated w/ sedation; low-dose norepinephrine gtt; wean as tolerated R: acute hypoxic respiratory failure, d/t influenza, c/f bacterial super-infection, intubated, extubated, re-intubated, s/p trach 10/20; wean ventilator as tolerated GI: possible GI bleed, though no appreciable hematemesis, melena; s/p PEG 10/20; re-start tube feeds today : AMBER, improving; to monitor renal indices; maintain net even I/O H: anemia, unclear etiology; transfuse as needed; to continue to hold chemical DVT prophylaxis caleb-operatively ID: c/f septic shock d/t pneumonia, improving; empiric vancomycin, zosyn, metronidazole; HIV E: hyperglycemia, to continue to monitor P: no acute issues Quality Stroke Does the patient have a stroke diagnosis?: No VTE Prior VTE?: No VTE Risk Level:: Medical - moderate - high VTE Device Contraindication: N/A - Device Ordered VTE Drug Contraindication: Treatment Not Tolerated
--- NOTE | 2023-10-22 07:50 | HE.PHANOTE ---
RE [facility] Patients level came back this morning at 17.4. Patients Scr also went up. Will decrease dose to 750 mg Q24H and get a level after. PRedicted AUC 427
[2023-10-22] MEDS: Chlorhexidine Gluc Oral Rinse 15 ML MOUTHWASH BUCCAL ×3 (08:45→20:02)
[2023-10-22] MEDS: Furosemide 20 MG/2 ML VIAL IVPUSH (08:45)
[2023-10-22] MEDS: vancomycin HCL 750 MG in 0.9 % Sodium Chloride 250 ML 265 MG IV (08:46)
[2023-10-22] MEDS: QUEtiapine Fumarate 25 MG TABLET PO ×2 (08:46→20:02)
[2023-10-22] MEDS: Nystatin Powder 15 GM BOTTLE 1 APPL TOPICAL ×2 (08:50→20:15)
--- NOTE | 2023-10-22 09:30 | MHC.CLN ---
F/U DISCUSSED AT ROUNDS WITH MD REVIEWED LABS PT IS S/P TRACH/PEG RECOMMEND RE-STARTING NEPRO TO MAX GOAL RATE 35ML/HR WITH 300ML Q 4 HRS TO PROVIDE 1512KCALS (1935KCALS WITH SEDATION; 29KCALS/KG), 68G PROTEIN (1.0G/KG), 2410ML TOTAL FREE WATER FROM FORMULA AND FLUSHES (36ML/KG) CONTINUE TO MONITOR TOLERANCE, RESIDUALS, AND LYTES
[2023-10-22] MEDS: Midazolam HCl/PF 2 MG/2 ML VIAL IVPUSH ×4 (10:42→21:52)
--- NOTE | 2023-10-22 10:52 | HO.POSTANES ---
Post Anesthesia Evaluation Post Anesthesia Evaluation Date of Service: 10/22/23 Vital Signs: Vital Signs Temp Pulse Resp BP Pulse Ox O2 Del Method FiO2 10/22/23 10:47 31 H 10/22/23 10:44 35 10/22/23 10:34 40 H 10/22/23 09:57 96 31 H 95/58 L 93 Mechanical Ventilation 35 10/22/23 09:16 102 H 84/60 L 10/22/23 09:00 101 H 38 H 90/55 L 91 L Mechanical Ventilation 35 10/22/23 08:00 107 H 33 H 101/60 96 Mechanical Ventilation 35 10/22/23 07:56 106 H 30 H 10/22/23 07:48 35 10/22/23 07:38 35 10/22/23 07:00 90 21 H 97/58 L 94 Mechanical Ventilation 35 10/22/23 06:00 88 33 H 97/63 94 Mechanical Ventilation 10/22/23 05:22 36 H 10/22/23 04:55 91 21 H 101/64 95 Mechanical Ventilation 35 10/22/23 04:02 35 10/22/23 04:00 35 10/22/23 03:49 99.0 F 88 32 H 98/62 95 Mechanical Ventilation 35 10/22/23 02:57 88 32 H 105/68 95 Mechanical Ventilation 35 10/22/23 01:56 87 29 H 102/64 95 Mechanical Ventilation 35 10/22/23 01:00 85 18 96/65 100 Mechanical Ventilation 35 10/22/23 00:57 30 H 10/22/23 00:30 35 10/22/23 00:00 35 10/22/23 00:00 88 32 H 100/64 95 Mechanical Ventilation 35 10/21/23 23:39 99.2 F 10/21/23 23:00 90 32 H 100/67 95 Mechanical Ventilation 35 Anesthesia: General Endotracheal-GETA (tracheostomy) Mental Status: Sedated Pain Control: Satisfactory Nausea/Vomiting: None Hydration: Adequate Anesthesia-Related Issues: No Anes. Related Issues
--- NOTE | 2023-10-22 11:06 | PM.PNGS ---
Subjective Subjective Date of Service: 10/22/23 <Ximena Mccoy PA-C - Last Filed: 10/22/23 11:09> 10/22/23 <Evan Berman MD - Last Filed: 10/22/23 14:48> Interval history: no events overnight per RN. <Ximena Mccoy PA-C - Last Filed: 10/22/23 11:09> Physical Exam Vital Signs: Vital Signs: Last Vital Signs Temp 99.0 F 10/22/23 03:49 Pulse 96 10/22/23 09:57 Resp 31 H 10/22/23 10:47 BP 95/58 L 10/22/23 09:57 Pulse Ox 93 10/22/23 09:57 O2 Del Method Mechanical Ventil ation 10/22/23 09:57 O2 Flow Rate 50 10/14/23 10:00 FiO2 35 10/22/23 10:44 BMI result Body Mass Index 21.7 <Ximena Mccoy PA-C - Last Filed: 10/22/23 11:09> Neck: Other: trach in place, dressing dry, stay sutures intact <Ximena Mccoy PA-C - Last Filed: 10/22/23 11:09> GI: Other: PEG tube in place, abdomen softly distended, no rigidity <Ximena Mccoy PA-C - Last Filed: 10/22/23 11:09> Objective Data Active Medications Acetaminophen (Acetaminophen Oral Liquid 650 Mg/20.3 Ml Solution) 975 mg PO Q8H PRN PRN Reason: Fever >100.4 Last Admin: 10/19/23 20:01 Dose: 975 mg Documented By: NARESH Albuterol/Ipratropium (Albuterol/Iprat 2.5/0.5mg 3 Ml Ampul.Neb) 3 ml INHALE RQ4H WHILE AWAKE [facility] Last Admin: 10/22/23 11:04 Dose: 3 ml Documented By: QIAN Albuterol/Ipratropium (Albuterol/Iprat 2.5/0.5mg 3 Ml Ampul.Neb) 3 ml INHALE RQ4H WHILE AWAKE PRN PRN Reason: Wheezing Chlorhexidine Gluconate (Chlorhexidine Gluc Oral Rinse 15 Ml Mouthwash) 15 ml BUCCAL TID [facility] Last Admin: 10/22/23 08:45 Dose: 15 ml Documented By: EDUAR Dextrose (Dextrose 50 % 25 Gm/50 Ml Syringe) 25 gm IVPUSH Q15M PRN; Protocol PRN Reason: per Hypoglycemia Standing Ord. Furosemide (Furosemide 20 Mg/2 Ml Vial) 20 mg IVPUSH DAILY SUSANA; Protocol Last Admin: 10/22/23 08:45 Dose: 20 mg Documented By: EDUAR Glucose (Glucose Gel 15 Gm Gel..Gram.) 15 gm PO Q15M PRN; Protocol PRN Reason: per Hypoglycemia Standing Ord. Heparin Sodium (Porcine) (Heparin Sodium,Porcine 5,000 Unit/Ml Vial) 5,000 unit SUBCUT Q12H SUSANA Last Admin: 10/18/23 03:08 Dose: 5,000 unit Documented By: SARAH Hydromorphone HCl (Hydromorphone Hcl 0.5 Mg/0.5 Ml Syringe) 0.5 mg IVPUSH Q2H PRN; Protocol PRN Reason: Pain, Moderate(Pain Scale 4-6) Last Admin: 10/22/23 08:45 Dose: 0.5 mg Documented By: EDUAR Norepinephrine Bitartrate (Levophed) 8 mg in 250 mls @ 0 mls/hr IV .Q0M SUSANA; Protocol Last Titration: 10/22/23 09:16 Dose: 0.08 mcg/kg/min, 11.85 mls/hr Documented By: EDUAR Piperacillin Sod/Tazobactam (Sod 2.25 gm/ Sodium Chloride) 50 mls @ 100 mls/hr IV Q6H [facility] Last Infusion: 10/22/23 11:06 Dose: Infused Documented By: EDUAR Metronidazole (Flagyl) 500 mg in 100 mls @ 100 mls/hr IV Q8H [facility] Last Infusion: 10/22/23 05:00 Dose: Infused Documented By: DAMON Dexmedetomidine HCl (Precedex) 400 mcg in 100 mls @ 0 mls/hr IVCONT .Q0M [facility]; Protocol Last Titration: 10/22/23 10:47 Dose: 1.5 mcg/kg/hr, 24.15 mls/hr Documented By: EDUAR Propofol (Diprivan) 1,000 mg in 100 mls @ 0 mls/hr IVCONT .Q0M [facility]; Protocol Last Titration: 10/22/23 10:31 Dose: 0 mcg/kg/min, 0 mls/hr Documented By: EDUAR Vancomycin HCl 750 mg/ Sodium (Chloride) 265 mls @ 265 mls/hr IV Q24H [facility] Last Infusion: 10/22/23 09:46 Dose: Infused Documented By: EDUAR Insulin Human Lispro (Insulin Lispro 100 Unit/Ml 3 Ml Vial) 0 unit SUBCUT Q6H [facility]; Protocol Last Admin: 10/22/23 06:00 Dose: Not Given Documented By: DAMON Non-Admin Reason: NPO Midazolam HCl (Midazolam Hcl/Pf 2 Mg/2 Ml Vial) 2 mg IVPUSH Q2H PRN PRN Reason: Anxiety Nystatin (Nystatin Powder 15 Gm Bottle) 1 appl TOPICAL BID [facility]; Protocol Last Admin: 10/22/23 08:50 Dose: 1 appl Documented By: EDUAR Ondansetron HCl (Ondansetron Hcl 4 Mg/2 Ml Vial) 4 mg IVPUSH Q4H PRN PRN Reason: Nausea and Vomiting Last Admin: 10/03/23 08:40 Dose: 4 mg Documented By: KAREN Quetiapine Fumarate (Quetiapine Fumarate 25 Mg Tablet) 25 mg PO BID [facility] Last Admin: 10/22/23 08:46 Dose: 25 mg Documented By: EDUAR Sodium Chloride (0.9 % Sodium Chloride Flush 10 Ml Syringe) 10 ml IVFLUSH Q8H [facility] Last Admin: 10/22/23 07:13 Dose: 10 ml Documented By: EDUAR <Ximena Mccoy PA-C - Last Filed: 10/22/23 11:09> Labs CBC & Chem 7: 10/22/23 05:17 10/22/23 05:17 <Ximena Mccoy PA-C - Last Filed: 10/22/23 11:09> Labs: Laboratory Results - last 24 hr 10/21/23 10/21/23 10/21/23 08:51 11:57 17:20 MCV MCH MCHC RDW Plt Count MPV Immature Gran % (Auto) Neut % (Auto) Lymph % (Auto) [place] % (Auto) Eos % (Auto) Baso % (Auto) Lymph # (Auto) [place] # (Auto) Eos # (Auto) Baso # (Auto) Abs Immat Gran (auto) Absolute Neuts (auto) Absolute Nucleated RBC Nucleated RBC % (auto) VBG pH VBG pCO2 VBG pO2 VBG HCO3 VBG O2 Saturation VBG Base Excess Anion Gap Estim Creat Clear Calc Estimated GFR POC Glucose 137 H 138 H Random Glucose Calcium Phosphorus Magnesium Random Vancomycin Blood Type O Positive Antibody Screen POSITIVE Antibody Identification Anti-M JENNIFER, Polyspecific POSITIVE A Positive JENNIFER Work-up IgG=Pos E8u=Eon A Crossmatch ([facility]) See Detail 10/21/23 10/22/23 10/22/23 23:55 05:17 05:23 MCV 71.2 L MCH 23.4 L MCHC 32.9 RDW 22.6 H Plt Count 263 MPV 10.4 Immature Gran % (Auto) 0.8 H Neut % (Auto) 78.3 H Lymph % (Auto) 12.2 L [place] % (Auto) 7.2 Eos % (Auto) 1.4 Baso % (Auto) 0.1 Lymph # (Auto) 0.9 L [place] # (Auto) 0.5 Eos # (Auto) 0.1 Baso # (Auto) 0.0 Abs Immat Gran (auto) 0.06 H Absolute Neuts (auto) 5.8 Absolute Nucleated RBC 0.020 H Nucleated RBC % (auto) 0.3 H VBG pH 7.46 H VBG pCO2 25 VBG pO2 38 VBG HCO3 18 L VBG O2 Saturation 58.0 VBG Base Excess -4.3 Anion Gap 14 Estim Creat Clear Calc 47.5 Estimated GFR 47 POC Glucose 172 H Random Glucose 155 H Calcium 8.8 Phosphorus 2.7 Magnesium 1.8 Random Vancomycin Blood Type Antibody Screen Antibody Identification JENNIFER, Polyspecific Positive JENNIFER Work-up Crossmatch ([facility]) 10/22/23 10/22/23 05:31 07:07 MCV MCH MCHC RDW Plt Count MPV Immature Gran % (Auto) Neut % (Auto) Lymph % (Auto) [place] % (Auto) Eos % (Auto) Baso % (Auto) Lymph # (Auto) [place] # (Auto) Eos # (Auto) Baso # (Auto) Abs Immat Gran (auto) Absolute Neuts (auto) Absolute Nucleated RBC Nucleated RBC % (auto) VBG pH VBG pCO2 VBG pO2 VBG HCO3 VBG O2 Saturation VBG Base Excess Anion Gap Estim Creat Clear Calc Estimated GFR POC Glucose 152 H Random Glucose Calcium Phosphorus Magnesium Random Vancomycin 17.4 Blood Type Antibody Screen Antibody Identification JENNIFER, Polyspecific Positive JENNIFER Work-up Crossmatch ([facility]) <Ximena Mccoy PA-C - Last Filed: 10/22/23 11:09> Procedures Date of Service Date of Service: 10/22/23 <Ximena Mccoy PA-C - Last Filed: 10/22/23 11:09> 10/22/23 <Evan Berman MD - Last Filed: 10/22/23 14:48> Progress Note: A&P Assessment and plan (1) Acute hypoxic respiratory failure: Status: Acute <Ximena Mccoy PA-C - Last Filed: 10/22/23 11:09> Assessment and Plan: Seen and examined Agree with YOBANI Matamorosay to start peg tube feeds <Evan Berman MD - Last Filed: 10/22/23 14:48> Assessment and Plan: POD #1 s/p trach/PEG tube placement. Trach and PEG tube in place, sites dry. Abdomen benign. No surgical issues. Ok to begin tube feeds today. <Ximena Mccoy PA-C - Last Filed: 10/22/23 11:09> Time Spent With Patient Time: Total time managing care of this patient today ____ minutes. <Ximena Mccoy PA-C - Last Filed: 10/22/23 11:09> Quality Stroke Does the patient have a stroke diagnosis?: No <Ximena Mccoy PA-C - Last Filed: 10/22/23 11:09> VTE Prior VTE?: No <Ximena Mccoy PA-C - Last Filed: 10/22/23 11:09> VTE Risk Level:: Medical - moderate - high <Ximena Mccoy PA-C - Last Filed: 10/22/23 11:09> VTE Device Contraindication: N/A - Device Ordered <Ximena Mccoy PA-C - Last Filed: 10/22/23 11:09> VTE Drug Contraindication: Treatment Not Tolerated <Ximena Mccoy PA-C - Last Filed: 10/22/23 11:09>
[2023-10-22 11:44] LABS: Glucose, Whole Blood 154 mg/dL (60-115)
[2023-10-22] MEDS: Insulin Lispro 100 UNIT/ML 3 ML VIAL SUBCUT ×3 (11:57→23:58)
[2023-10-22] MEDS: dexmedeTOMIDidine HCL/NS 400 MCG/100 ML INFUS..BTL 24.15 MCG IVCONT ×4 (12:42→23:44)
--- NOTE | 2023-10-22 13:50 | MHC.CM.PN ---
Pt is POD 1 from peg/trach placement. Clinical updates remitted to [facility] in anticipation of transfer. CM to follow
[2023-10-22 18:05] LABS: Glucose, Whole Blood 170 mg/dL (60-115)
[2023-10-22] MEDS: Norepinephrine Bitartrate/D5W 8 MG/250 ML PLAST..BAG 11.85 MG IV (20:02)
[2023-10-22] MEDS: Acetaminophen Oral Liquid 650 MG/20.3 ML SOLUTION 975 MG PO (21:28)
[2023-10-22 23:51] LABS: Glucose, Whole Blood 188 mg/dL (60-115)
[2023-10-23] VITALS (38 sets, daily range): BP systolic 80–138; BP diastolic 49–88; PULSE 83–135; RESP 17–40; TEMP 34.8–39.3; O2SAT 92–96; BMI 20.8
--- NOTE | 2023-10-23 00:38 | HO.SKINPHOTO ---
Location: Coccyx Category: Blister Stage: Length: Width: Depth: cm
[2023-10-23] MEDS: metroNIDAZOLE/NS 500 MG/100 ML PIGGYBACK 100 MG IV ×3 (03:16→19:15)
[2023-10-23] MEDS: dexmedeTOMIDidine HCL/NS 400 MCG/100 ML INFUS..BTL 24.15 MCG IVCONT ×2 (03:20→07:36)
[2023-10-23] MEDS: Piperacillin Sodium/Tazobactam 2.25 GM in 0.9 % Sodium Chloride 50 ML IV ×4 (04:21→22:41)
[2023-10-23 05:36] LABS: Glucose, Whole Blood 221 mg/dL (60-115)
[2023-10-23] MEDS: Insulin Lispro 100 UNIT/ML 3 ML VIAL SUBCUT ×4 (05:59→23:53)
[2023-10-23 07:01] LABS: MANUAL DIFF FLAG NO
[2023-10-23 07:25] LABS: Anion Gap 15 (12-20); Blood Urea Nitrogen 45 mg/dL (9-16); Calcium 8.1 mg/dL (8.4-10.2); Carbon Dioxide 11 mmol/L (22-29); Chloride 118 mmol/L (96-108); Creatinine Clr Calc Pharmacy 40.4; Estimated Glomerular Filt Rate 41; Glucose Random 199 mg/dL (60-115); Potassium 4.2 mmol/L (3.3-5.1); Sodium 140 mmol/L (135-145)
[2023-10-23 07:26] LABS: Vancomycin Random 15.9 mcg/mL (15-20)
[2023-10-23 07:27] LABS: Basophils Percent Auto 0.2 % (0-2); Eosinophils Absolute Auto 0.1 X10*3/uL (0.0-0.4); Eosinophils Percent Auto 0.7 % (0-4); Hematocrit 33.3 % (42.0-52.0); Hemoglobin 10.9 g/dl (14.0-18.0); Imm Gran Abs Auto 0.15 X10*3/uL (0.00-0.03); Imm Gran Pct Auto 1.4 % (0.0-0.4); Lymphocytes Absolute Auto 1.7 X10*3/uL (1.2-4.9); Mean Corpuscular HGB Conc 32.7 g/dl (31.0-36.0); Mean Corpuscular Volume 73.2 fL (80.0-98.0); Monocytes Absolute Auto 0.8 X10*3/uL (0.1-1.2); Monocytes Percent Auto 7.5 % (2-11); Neutrophils Percent Auto 74.2 % (45-73); Platelet Count 227 X10*3/uL (160-400); Red Blood Count 4.55 X10*6/uL (4.60-5.80); Red Cell Distribution Width 22.4 % (11.0-16.0); White Blood Count 10.7 X10*3/uL (4.8-10.8)
[2023-10-23] MEDS: Albuterol/Iprat 2.5/0.5MG 3 ML AMPUL.NEB INHALE ×4 (07:33→18:44)
--- NOTE | 2023-10-23 07:35 | HE.PHANOTE ---
vanco Dosing Level 15.8 today, will continue with current regimen. Next level 10/24 @ 0700. Cherri BachD
--- NOTE | 2023-10-23 07:44 | PM.CCPN ---
Subjective Subjective Date of Service: 10/23/23 Interval History: no significant overnight events Critical Care Time (minutes): 90 Physical Exam Vital Signs: Vital Signs: Last Vital Signs Temp 100.1 F 10/23/23 04:28 Pulse 99 10/23/23 07:00 Resp 32 H 10/23/23 07:00 BP 130/84 10/23/23 07:00 Pulse Ox 96 10/23/23 07:00 O2 Del Method Mechanical Ventil ation 10/23/23 07:00 O2 Flow Rate 50 10/14/23 10:00 FiO2 35 10/23/23 07:00 BMI result Body Mass Index 20.8 Const: Other: opens eyes, tracks General: no acute distress, well developed, alert and awake HEENT: Head: Yes normal to inspection, Yes normocephalic and Yes atraumatic Eyes: General: appearance normal, both eyes and all related structures Neck: Neck: Yes normal visual inspection, Yes no meningeal signs and Yes supple Chest: Chest palpation & inspection: normal inspection of the chest Resp: Other: some appreciable rhonchi; no appreciable rales, wheezing Effort & Inspection: normal respiratory effort Cardio: Rate: regular rate Rhythm: regular rhythm GI: Inspection: Yes normal to inspection, No Abdominal wall edema and No distended Palpation (GI): Soft to palpation, not firm, nontender, no guarding and not rigid : Male General Exam: Yes normal external exam Skin: General skin exam: no rashes or lesions noted Neuro: General: tone normal, moves all extremities, no meningeal signs and no focal motor deficits Extrem: General: Yes normal to inspection, Yes capillary refill normal and Yes no clubbing, cyanosis or edema Psych: Other: some appreciable anxiety Objective Data Labs 10/23/23 06:56 10/23/23 06:56 Labs: Laboratory Results - last 24 hr 10/22/23 10/22/23 10/22/23 11:29 17:40 23:48 WBC RBC Hgb Hct MCV MCH MCHC RDW Plt Count MPV Immature Gran % (Auto) Neut % (Auto) Lymph % (Auto) [place] % (Auto) Eos % (Auto) Baso % (Auto) Lymph # (Auto) [place] # (Auto) Eos # (Auto) Baso # (Auto) Abs Immat Gran (auto) Absolute Neuts (auto) Absolute Nucleated RBC Nucleated RBC % (auto) Sodium Potassium Chloride Carbon Dioxide Anion Gap BUN Creatinine Estim Creat Clear Calc Estimated GFR POC Glucose 154 H 170 H 188 H Random Glucose Calcium Random Vancomycin 10/23/23 10/23/23 05:32 06:56 WBC 10.7 RBC 4.55 L Hgb 10.9 L Hct 33.3 L MCV 73.2 L MCH 24.0 L MCHC 32.7 RDW 22.4 H Plt Count 227 MPV 11.0 Immature Gran % (Auto) 1.4 H Neut % (Auto) 74.2 H Lymph % (Auto) 16.0 L [place] % (Auto) 7.5 Eos % (Auto) 0.7 Baso % (Auto) 0.2 Lymph # (Auto) 1.7 [place] # (Auto) 0.8 Eos # (Auto) 0.1 Baso # (Auto) 0.0 Abs Immat Gran (auto) 0.15 H Absolute Neuts (auto) 8.0 Absolute Nucleated RBC 0.000 Nucleated RBC % (auto) 0.0 Sodium 140 Potassium 4.2 Chloride 118 H Carbon Dioxide 11 L Anion Gap 15 BUN 45 H Creatinine 1.69 H Estim Creat Clear Calc 40.4 Estimated GFR 41 POC Glucose 221 H Random Glucose 199 H Calcium 8.1 L D Random Vancomycin 15.9 Microbiology Microbiology Results: Microbiology 10/02/23 06:40 Sputum - Suctioned Direct Acid Fast Bacilli Smear - Final 10/02/23 03:11 Blood - Central Line Blood Culture - Final No growth after 5 days. 10/02/23 03:11 Blood - Central Line Blood Culture - Final Coag negative Staphylococcus 10/02/23 06:40 Sputum - Suctioned Gram Stain - Final 10/02/23 06:40 Sputum - Suctioned Sputum Culture - Final 10/02/23 06:40 Urine Catheterized - Miguel Catheter Urine Culture - Final No growth. Progress Note: A&P Assessment and plan (1) AMBER (acute kidney injury): Status: Acute (2) HIV (human immunodeficiency virus infection): Status: Acute (3) Respiratory failure: Status: Acute (4) Hepatitis C: Status: Acute (5) COPD (chronic obstructive pulmonary disease): Status: Acute (6) Critical illness myopathy: Status: Acute Plan Patient is a 62 Y M with HIV, HCV, COPD, presenting initially on 10/02 to ED w/ dyspnea, found to have influenza, c/f bacterial super-infection, in acute hypoxic respiratory failure, intubated; ICU course c/b septic shock, acute renal insufficiency, ileus; of not, patient extubated 10/12, re-intubated 10/13 d/t aspiration, c/b acute hypoxic respiratory failure N: sedated w/ dexmedetomidine gtt, wean as tolerated; c/f critical illness myopathy CV: hypotension, appears to be associated w/ sedation; low-dose norepinephrine gtt; wean as tolerated R: acute hypoxic respiratory failure, d/t influenza, c/f bacterial super-infection, intubated, extubated, re-intubated, s/p trach 10/20; wean ventilator as tolerated GI: no acute issues; s/p PEG 10/20, tube feeds : acute renal insufficiency; to monitor renal indices; maintain net even I/O H: anemia, unclear etiology, improved; heparin SQ DVT prophylaxis ID: c/f septic shock d/t pneumonia, improving; empiric vancomycin, zosyn, metronidazole; HIV E: hyperglycemia, to continue to monitor P: no acute issues Quality Stroke Does the patient have a stroke diagnosis?: No VTE Prior VTE?: No VTE Risk Level:: Medical - moderate - high VTE Device Contraindication: N/A - Device Ordered VTE Drug Contraindication: N/A - Med Ordered
[2023-10-23] MEDS: Calcium Chloride 1 GM/10 ML SYRINGE IVPUSH (08:50)
[2023-10-23] MEDS: vancomycin HCL 750 MG in 0.9 % Sodium Chloride 250 ML 265 MG IV (08:53)
[2023-10-23] MEDS: 0.9 % Sodium Chloride Flush 10 ML SYRINGE IVFLUSH ×3 (08:54→23:52)
[2023-10-23] MEDS: Chlorhexidine Gluc Oral Rinse 15 ML MOUTHWASH BUCCAL ×3 (08:58→20:13)
[2023-10-23] MEDS: Nystatin Powder 15 GM BOTTLE 1 APPL TOPICAL ×2 (09:00→20:13)
[2023-10-23] MEDS: QUEtiapine Fumarate 25 MG TABLET PO ×2 (09:00→20:13)
[2023-10-23 09:19] LABS: VBG Base Excess -7.5 mmol/L; VBG HCO3 15 mmol/L (22-26); VBG pCO2 24 mmHg; VBG pO2 40 mmHg
[2023-10-23 11:54] LABS: Glucose, Whole Blood 160 mg/dL (60-115)
[2023-10-23] MEDS: Midazolam HCl/PF 2 MG/2 ML VIAL IVPUSH ×2 (13:09→16:19)
[2023-10-23] MEDS: dexmedeTOMIDidine HCL/NS 400 MCG/100 ML INFUS..BTL 11.27 MCG IVCONT (13:11)
[2023-10-23] MEDS: HYDROmorphone HCl 0.5 MG/0.5 ML SYRINGE IVPUSH (15:45)
[2023-10-23] MEDS: Heparin Sodium,Porcine 5,000 UNIT/ML VIAL 5000 UNIT SUBCUT (15:47)
[2023-10-23] MEDS: Acetaminophen Oral Liquid 650 MG/20.3 ML SOLUTION 975 MG PO ×2 (16:19→22:41)
[2023-10-23 18:10] LABS: Glucose, Whole Blood 202 mg/dL (60-115)
[2023-10-23 19:12] LABS: Venous Blood Gas Refer to POC result
[2023-10-23] MEDS: dexmedeTOMIDidine HCL/NS 400 MCG/100 ML INFUS..BTL 20.93 MCG IVCONT ×2 (19:14→23:51)
[2023-10-23] MEDS: Norepinephrine Bitartrate/D5W 8 MG/250 ML PLAST..BAG 11.85 MG IV (20:04)
[2023-10-23 23:52] LABS: Glucose, Whole Blood 187 mg/dL (60-115)
[2023-10-24] VITALS (31 sets, daily range): BP systolic 97–133; BP diastolic 65–84; PULSE 86–116; RESP 15–38; TEMP 34.8–38.1; O2SAT 95–100; BMI 21.4
[2023-10-24 00:02] LABS: Glucose, Whole Blood 199 mg/dL (60-115)
[2023-10-24] MEDS: Heparin Sodium,Porcine 5,000 UNIT/ML VIAL 5000 UNIT SUBCUT ×2 (03:15→15:46)
[2023-10-24] MEDS: metroNIDAZOLE/NS 500 MG/100 ML PIGGYBACK 100 MG IV (03:15)
[2023-10-24] MEDS: dexmedeTOMIDidine HCL/NS 400 MCG/100 ML INFUS..BTL 20.93 MCG IVCONT ×2 (04:17→09:24)
[2023-10-24] MEDS: Piperacillin Sodium/Tazobactam 2.25 GM in 0.9 % Sodium Chloride 50 ML IV (04:18)
[2023-10-24 04:53] LABS: VBG Base Excess -9.1 mmol/L; VBG HCO3 14 mmol/L (22-26); VBG pCO2 25 mmHg; VBG pH 7.37 (7.32-7.43); VBG pO2 47 mmHg
[2023-10-24 04:57] LABS: Venous Blood Gas Refer to POC result
[2023-10-24 04:57] LABS: MANUAL DIFF FLAG NO
[2023-10-24 04:59] LABS: Basophils Percent Auto 0.2 % (0-2); Eosinophils Absolute Auto 0.1 X10*3/uL (0.0-0.4); Hematocrit 27.9 % (42.0-52.0); Hemoglobin 9.2 g/dl (14.0-18.0); Imm Gran Abs Auto 0.08 X10*3/uL (0.00-0.03); Imm Gran Pct Auto 0.9 % (0.0-0.4); Lymphocytes Percent Auto 11.1 % (20-40); Mean Corpuscular Hemoglobin 23.7 pg (27.0-33.0); Mean Corpuscular Volume 71.7 fL (80.0-98.0); Mean Platelet Volume 10.1 fL (9.4-12.4); Monocytes Absolute Auto 0.6 X10*3/uL (0.1-1.2); Monocytes Percent Auto 7.2 % (2-11); NRBC Pct Auto 0.2 /100WBC (0.0-0.2); Neutrophils Absolute Auto 6.9 x10*3/uL (2.0-8.3); Neutrophils Percent Auto 79.6 % (45-73); Platelet Count 224 X10*3/uL (160-400); Red Blood Count 3.89 X10*6/uL (4.60-5.80); White Blood Count 8.7 X10*3/uL (4.8-10.8)
[2023-10-24 05:16] LABS: Anion Gap 14 (12-20); Blood Urea Nitrogen 59 mg/dL (9-16); Calcium 8.8 mg/dL (8.4-10.2); Carbon Dioxide 15 mmol/L (22-29); Chloride 113 mmol/L (96-108); Estimated Glomerular Filt Rate 25; Glucose Random 215 mg/dL (60-115); Potassium 3.7 mmol/L (3.3-5.1); Sodium 138 mmol/L (135-145)
[2023-10-24] MEDS: Insulin Lispro 100 UNIT/ML 3 ML VIAL SUBCUT ×2 (05:36→18:10)
[2023-10-24] MEDS: Albuterol/Iprat 2.5/0.5MG 3 ML AMPUL.NEB INHALE ×4 (07:24→19:49)
[2023-10-24 07:36] LABS: Vancomycin Random 18.4 mcg/mL (15-20)
--- NOTE | 2023-10-24 07:36 | PM.CCPN ---
Subjective Subjective Date of Service: 10/24/23 Interval History: no significant overnight events Critical Care Time (minutes): 60 Physical Exam Vital Signs: Vital Signs: Last Vital Signs Temp 97.6 F 10/24/23 05:00 Pulse 88 10/24/23 07:24 Resp 31 H 10/24/23 07:24 BP 126/74 10/24/23 06:57 Pulse Ox 97 10/24/23 06:57 O2 Del Method Trach Collar 10/24/23 06:57 O2 Flow Rate 50 10/14/23 10:00 FiO2 35 10/24/23 07:24 BMI result Body Mass Index 21.4 Const: General: no acute distress, well developed, alert and awake HEENT: Other: tracheostomy midline, w/o fluctuance, induration Head: Yes normal to inspection, Yes normocephalic and Yes atraumatic Eyes: General: appearance normal, both eyes and all related structures Neck: Other: as above Chest: Chest palpation & inspection: normal inspection of the chest Resp: Other: no appreciable rales, rhonchi, wheezing Cardio: Rate: regular rate Rhythm: regular rhythm GI: Inspection: Yes normal to inspection, No Abdominal wall edema and No distended Palpation (GI): Soft to palpation, not firm, nontender, no guarding and not rigid : Male General Exam: Yes normal external exam Skin: General skin exam: no rashes or lesions noted Neuro: Other: awake, alert, tracks General: tone normal and no focal motor deficits Extrem: General: Yes normal to inspection, Yes capillary refill normal and Yes no clubbing, cyanosis or edema Psych: Other: some appreciable anxiety Objective Data Labs 10/24/23 04:46 10/24/23 04:46 Labs: Laboratory Results - last 24 hr 10/23/23 10/23/23 10/23/23 09:04 09:12 11:39 WBC RBC Hgb Hct MCV MCH MCHC RDW Plt Count MPV Immature Gran % (Auto) Neut % (Auto) Lymph % (Auto) [place] % (Auto) Eos % (Auto) Baso % (Auto) Lymph # (Auto) [place] # (Auto) Eos # (Auto) Baso # (Auto) Abs Immat Gran (auto) Absolute Neuts (auto) Absolute Nucleated RBC Nucleated RBC % (auto) VBG pH 7.40 VBG pCO2 24 VBG pO2 40 VBG HCO3 15 L VBG O2 Saturation 60.0 VBG Base Excess -7.5 Sodium Potassium Chloride Carbon Dioxide Anion Gap BUN Creatinine Estim Creat Clear Calc Estimated GFR POC Glucose 160 H Random Glucose Lactic Acid 1.0 Calcium 10/23/23 10/23/23 10/23/23 17:53 23:49 23:58 WBC RBC Hgb Hct MCV MCH MCHC RDW Plt Count MPV Immature Gran % (Auto) Neut % (Auto) Lymph % (Auto) [place] % (Auto) Eos % (Auto) Baso % (Auto) Lymph # (Auto) [place] # (Auto) Eos # (Auto) Baso # (Auto) Abs Immat Gran (auto) Absolute Neuts (auto) Absolute Nucleated RBC Nucleated RBC % (auto) VBG pH VBG pCO2 VBG pO2 VBG HCO3 VBG O2 Saturation VBG Base Excess Sodium Potassium Chloride Carbon Dioxide Anion Gap BUN Creatinine Estim Creat Clear Calc Estimated GFR POC Glucose 202 H 187 H 199 H Random Glucose Lactic Acid Calcium 10/24/23 10/24/23 04:45 04:46 WBC 8.7 RBC 3.89 L Hgb 9.2 L Hct 27.9 L MCV 71.7 L MCH 23.7 L MCHC 33.0 RDW 22.0 H Plt Count 224 MPV 10.1 Immature Gran % (Auto) 0.9 H Neut % (Auto) 79.6 H Lymph % (Auto) 11.1 L [place] % (Auto) 7.2 Eos % (Auto) 1.0 Baso % (Auto) 0.2 Lymph # (Auto) 1.0 L [place] # (Auto) 0.6 Eos # (Auto) 0.1 Baso # (Auto) 0.0 Abs Immat Gran (auto) 0.08 H Absolute Neuts (auto) 6.9 Absolute Nucleated RBC 0.020 H Nucleated RBC % (auto) 0.2 VBG pH 7.37 VBG pCO2 25 VBG pO2 47 VBG HCO3 14 L VBG O2 Saturation 67.0 VBG Base Excess -9.1 Sodium 138 Potassium 3.7 Chloride 113 H Carbon Dioxide 15 L Anion Gap 14 BUN 59 H Creatinine 2.63 H Estim Creat Clear Calc 26.0 Estimated GFR 25 POC Glucose Random Glucose 215 H Lactic Acid Calcium 8.8 D Microbiology Microbiology Results: Microbiology 10/02/23 06:40 Sputum - Suctioned Direct Acid Fast Bacilli Smear - Final 10/02/23 03:11 Blood - Central Line Blood Culture - Final No growth after 5 days. 10/02/23 03:11 Blood - Central Line Blood Culture - Final Coag negative Staphylococcus 10/02/23 06:40 Sputum - Suctioned Gram Stain - Final 10/02/23 06:40 Sputum - Suctioned Sputum Culture - Final 10/02/23 06:40 Urine Catheterized - Miguel Catheter Urine Culture - Final No growth. Progress Note: A&P Assessment and plan (1) Critical illness myopathy: Status: Acute (2) AMBER (acute kidney injury): Status: Acute (3) HIV (human immunodeficiency virus infection): Status: Acute (4) Respiratory failure: Status: Acute (5) Hepatitis C: Status: Acute (6) COPD (chronic obstructive pulmonary disease): Status: Acute Plan Patient is a 62 Y M with HIV, HCV, COPD, presenting initially on 10/02 to ED w/ dyspnea, found to have influenza, c/f bacterial super-infection, c/b acute hypoxic respiratory failure, intubated; ICU course c/b septic shock, acute renal insufficiency, ileus; of note, patient extubated 10/12, re-intubated 10/13 d/t aspiration, critical illness myopathy N: sedated w/ dexmedetomidine gtt, wean as tolerated; c/f critical illness myopathy CV: hypotension, appears to be associated w/ sedation; low-dose norepinephrine gtt; wean as tolerated R: acute hypoxic respiratory failure, d/t influenza, c/f bacterial super-infection, intubated, extubated, re-intubated, s/p trach 10/20; wean ventilator as tolerated GI: no acute issues; s/p PEG 10/20, tube feeds : acute renal insufficiency, worsening, possibly pre-renal; to continue to monitor renal indices H: anemia, unclear etiology, improved; heparin SQ DVT prophylaxis ID: pneumonia, s/p vancomycin, zosyn, metronidazole; HIV E: hyperglycemia, to continue to monitor P: no acute issues Quality Stroke Does the patient have a stroke diagnosis?: No VTE Prior VTE?: No VTE Risk Level:: Medical - moderate - high VTE Device Contraindication: N/A - Device Ordered VTE Drug Contraindication: N/A - Med Ordered
[2023-10-24] MEDS: Chlorhexidine Gluc Oral Rinse 15 ML MOUTHWASH BUCCAL ×3 (08:19→20:56)
[2023-10-24] MEDS: QUEtiapine Fumarate 25 MG TABLET PO ×2 (08:19→20:56)
[2023-10-24] MEDS: 0.9 % Sodium Chloride Flush 10 ML SYRINGE IVFLUSH ×2 (08:19→15:46)
[2023-10-24] MEDS: Nystatin Powder 15 GM BOTTLE 1 APPL TOPICAL ×2 (08:19→20:56)
[2023-10-24] MEDS: Lactated Ringers 500 ML 999 ML IV (08:19)
[2023-10-24 11:28] LABS: Glucose, Whole Blood 143 mg/dL (60-115)
[2023-10-24] MEDS: dexmedeTOMIDidine HCL/NS 400 MCG/100 ML INFUS..BTL 17.71 MCG IVCONT ×2 (13:32→19:22)
[2023-10-24] MEDS: Norepinephrine Bitartrate/D5W 8 MG/250 ML PLAST..BAG 11.85 MG IV (15:45)
[2023-10-24 17:53] LABS: Glucose, Whole Blood 168 mg/dL (60-115)
[2023-10-24 23:57] LABS: Glucose, Whole Blood 174 mg/dL (60-115)
[2023-10-25] VITALS (34 sets, daily range): BP systolic 97–119; BP diastolic 61–74; PULSE 87–132; RESP 15–37; TEMP 35–38.3; O2SAT 94–100; BMI 21.8
[2023-10-25] MEDS: Insulin Lispro 100 UNIT/ML 3 ML VIAL SUBCUT ×3 (00:10→23:43)
[2023-10-25] MEDS: 0.9 % Sodium Chloride Flush 10 ML SYRINGE IVFLUSH ×3 (00:11→15:47)
[2023-10-25] MEDS: dexmedeTOMIDidine HCL/NS 400 MCG/100 ML INFUS..BTL 14.49 MCG IVCONT (01:04)
[2023-10-25] MEDS: Heparin Sodium,Porcine 5,000 UNIT/ML VIAL 5000 UNIT SUBCUT (04:14)
[2023-10-25 05:08] LABS: VBG Base Excess -10.2 mmol/L; VBG HCO3 14 mmol/L (22-26); VBG pCO2 25 mmHg; VBG pH 7.34 (7.32-7.43); VBG pO2 44 mmHg
[2023-10-25 05:09] LABS: Venous Blood Gas Refer to POC result
[2023-10-25 05:10] LABS: MANUAL DIFF FLAG NO
[2023-10-25 05:14] LABS: Basophils Percent Auto 0.3 % (0-2); Eosinophils Absolute Auto 0.1 X10*3/uL (0.0-0.4); Eosinophils Percent Auto 1.2 % (0-4); Hematocrit 24.8 % (42.0-52.0); Hemoglobin 8.3 g/dl (14.0-18.0); Imm Gran Abs Auto 0.04 X10*3/uL (0.00-0.03); Imm Gran Pct Auto 0.5 % (0.0-0.4); Lymphocytes Absolute Auto 1.1 X10*3/uL (1.2-4.9); Lymphocytes Percent Auto 14.7 % (20-40); Mean Corpuscular HGB Conc 33.5 g/dl (31.0-36.0); Mean Corpuscular Hemoglobin 23.6 pg (27.0-33.0); Mean Corpuscular Volume 70.7 fL (80.0-98.0); Monocytes Absolute Auto 0.6 X10*3/uL (0.1-1.2); Monocytes Percent Auto 8.2 % (2-11); Neutrophils Absolute Auto 5.9 x10*3/uL (2.0-8.3); Neutrophils Percent Auto 75.1 % (45-73); Platelet Count 232 X10*3/uL (160-400); Red Blood Count 3.51 X10*6/uL (4.60-5.80); Red Cell Distribution Width 21.8 % (11.0-16.0); White Blood Count 7.8 X10*3/uL (4.8-10.8)
[2023-10-25 05:32] LABS: Albumin Level 2.2 g/dL (3.5-5.0); Anion Gap 13 (12-20); Blood Urea Nitrogen 70 mg/dL (9-16); Calcium 8.2 mg/dL (8.4-10.2); Carbon Dioxide 14 mmol/L (22-29); Chloride 111 mmol/L (96-108); Creatinine Clr Calc Pharmacy 22.7; Estimated Glomerular Filt Rate 21; Glucose Random 181 mg/dL (60-115); Magnesium 1.9 mg/dL (1.6-2.6); Phosphorus 4.2 mg/dL (2.7-4.5); Potassium 3.4 mmol/L (3.3-5.1); Sodium 135 mmol/L (135-145)
[2023-10-25] MEDS: Albumin Human 25 % 100 ML IV ×5 (06:15→19:26)
[2023-10-25] MEDS: Albuterol/Iprat 2.5/0.5MG 3 ML AMPUL.NEB INHALE ×4 (07:21→19:37)
[2023-10-25] MEDS: dexmedeTOMIDidine HCL/NS 400 MCG/100 ML INFUS..BTL 11.27 MCG IVCONT (07:32)
[2023-10-25] MEDS: Furosemide 40 MG/4 ML VIAL IVPUSH ×2 (08:40→19:26)
[2023-10-25] MEDS: Nystatin Powder 15 GM BOTTLE 1 APPL TOPICAL ×2 (08:45→20:12)
[2023-10-25] MEDS: QUEtiapine Fumarate 25 MG TABLET PO ×2 (08:45→20:14)
[2023-10-25] MEDS: Chlorhexidine Gluc Oral Rinse 15 ML MOUTHWASH BUCCAL ×3 (08:45→20:14)
--- NOTE | 2023-10-25 09:28 | MHC.CLN ---
F/U DISCUSSED AT ROUNDS WITH REVIEWED LABS PT RECEIVING NEPRO TO MAX GOAL RATE 35ML/HR WITH 300ML Q 4 HRS TO PROVIDE 1512KCALS (1935KCALS WITH SEDATION; 29KCALS/KG), 68G PROTEIN (1.0G/KG), 2410ML TOTAL FREE WATER FROM FORMULA AND FLUSHES (36ML/KG) RECOMMEND DECREASING FREE WATER FLUSHES 240ML FWF Q 6 HRS WILL PROVIDE 1570ML TOTAL WATER FROM FORMULA AND FLUSHES (24ML/KG) CONTINUE TO MONITOR TOLERANCE, RESIDUALS, AND LYTES
--- NOTE | 2023-10-25 09:39 | P.PNCC_ITS ---
Subjective Subjective Date of Service: 10/25/23 Interval History: 62-year-old gentleman with underlying HIV on HAART, hep C, COPD admitted on 10/02/2023 with acute hypoxic respiratory failure secondary to influenza with superimposed bacterial superinfection requiring intubation, pressor, and ventilatory support. Cultures are negative to date. Shock component has resolved. Now with abdominal distention secondary to ileus versus SBO, evaluated by general surgeon and deemed to underlying ileus. Extubated 10/13/2023. On 10/14/2023 with an aspiration event resulting in refractory hypoxia requiring emergent intubation and ventilatory support. Post tracheostomy and gastrostomy on 10/21/2023. No events overnight. Critical Care Time (minutes): 60 Physical Exam 2 Vital Signs: Vital Signs: Last Vital Signs Temp 98.0 F 10/25/23 07:53 Pulse 105 H 10/25/23 07:53 Resp 35 H 10/25/23 07:53 BP 102/62 10/25/23 07:53 Pulse Ox 97 10/25/23 07:53 O2 Del Method Mechanical Ventil ation 10/25/23 07:53 O2 Flow Rate 50 10/14/23 10:00 FiO2 35 10/25/23 07:53 BMI result Body Mass Index 21.8 Const: General: no acute distress Eyes: Sclerae: sclerae normal EOM: EOMs intact bilaterally Neck: Neck: Yes no lymphadenopathy, Yes trachea midline, Yes supple and Yes tracheostomy present (On vent) Resp: Effort & Inspection: normal respiratory effort and no respiratory distress Auscultation: clear to auscultation bilaterally Cardio: Rate: regular rate Rhythm: regular rhythm Heart sounds: no gallops, no murmurs and no rubs GI: Inspection: Yes G-tube present Palpation (GI): Soft to palpation and Other GI palpation findings present ( Nontender) Auscultation: normal bowel sounds Extrem: General: Yes no pedal edema, No clubbing and No cyanosis Objective Data Labs 10/25/23 04:48 10/25/23 04:48 Labs: Laboratory Results - last 24 hr 10/24/23 10/24/23 10/24/23 11:24 17:49 23:53 WBC RBC Hgb Hct MCV MCH MCHC RDW Plt Count MPV Immature Gran % (Auto) Neut % (Auto) Lymph % (Auto) [place] % (Auto) Eos % (Auto) Baso % (Auto) Lymph # (Auto) [place] # (Auto) Eos # (Auto) Baso # (Auto) Abs Immat Gran (auto) Absolute Neuts (auto) Absolute Nucleated RBC Nucleated RBC % (auto) VBG pH VBG pCO2 VBG pO2 VBG HCO3 VBG O2 Saturation VBG Base Excess Sodium Potassium Chloride Carbon Dioxide Anion Gap BUN Creatinine Estim Creat Clear Calc Estimated GFR POC Glucose 143 H 168 H 174 H Random Glucose Calcium Phosphorus Magnesium Albumin Vancomycin Trough 10/25/23 10/25/23 10/25/23 04:48 05:02 08:13 WBC 7.8 RBC 3.51 L Hgb 8.3 L Hct 24.8 L MCV 70.7 L MCH 23.6 L MCHC 33.5 RDW 21.8 H Plt Count 232 MPV 11.0 Immature Gran % (Auto) 0.5 H Neut % (Auto) 75.1 H Lymph % (Auto) 14.7 L [place] % (Auto) 8.2 Eos % (Auto) 1.2 Baso % (Auto) 0.3 Lymph # (Auto) 1.1 L [place] # (Auto) 0.6 Eos # (Auto) 0.1 Baso # (Auto) 0.0 Abs Immat Gran (auto) 0.04 H Absolute Neuts (auto) 5.9 Absolute Nucleated RBC 0.000 Nucleated RBC % (auto) 0.0 VBG pH 7.34 VBG pCO2 25 VBG pO2 44 VBG HCO3 14 L VBG O2 Saturation 69.0 VBG Base Excess -10.2 Sodium 135 Potassium 3.4 Chloride 111 H Carbon Dioxide 14 L Anion Gap 13 BUN 70 H Creatinine 3.08 H Estim Creat Clear Calc 22.7 Estimated GFR 21 POC Glucose Random Glucose 181 H Calcium 8.2 L D Phosphorus 4.2 Magnesium 1.9 Albumin 2.2 L Vancomycin Trough 14.0 Microbiology Microbiology Results: Microbiology 10/02/23 06:40 Sputum - Suctioned Direct Acid Fast Bacilli Smear - Final 10/02/23 03:11 Blood - Central Line Blood Culture - Final No growth after 5 days. 10/02/23 03:11 Blood - Central Line Blood Culture - Final Coag negative Staphylococcus 10/02/23 06:40 Sputum - Suctioned Gram Stain - Final 10/02/23 06:40 Sputum - Suctioned Sputum Culture - Final 10/02/23 06:40 Urine Catheterized - Miguel Catheter Urine Culture - Final No growth. Progress Note: A&P Assessment and plan (1) Critical illness myopathy: Status: Acute (2) CKD (chronic kidney disease): Status: Acute (3) AMBER (acute kidney injury): Status: Acute (4) HIV (human immunodeficiency virus infection): Status: Acute (5) Acute hypoxic respiratory failure: Status: Acute (6) Status post tracheostomy: Status: Acute (7) Hepatitis C: Status: Acute (8) COPD (chronic obstructive pulmonary disease): Status: Acute Plan Assessment: 62-year-old gentleman with underlying HIV on HAART, hep C admitted with acute hypoxic respiratory failure secondary to bacterial superinfection of underlying influenza now requiring ventilatory support Plan: Neuro: No acute issues. Cardiac: Distributive shock, improving, continue to titrate off pressor support as tolerated. Pulmonary: Acute hypoxic respiratory failure secondary to bacterial superinfection of underlying influenza, improved and extubated on 10/13/2023. However with development of recurrent aspirations requiring re-intubation on 10/14/2023. Now status post tracheostomy/gastrostomy on 10/21/2023 Renal: Acute kidney injury secondary to septic shock, improving. Non oliguric. Continue to monitor renal indices and urine output. Endo: No acute issues. GI: Ileus, resolved. General surgery service care appreciated. ID: No acute issues Heme/Onc: No acute issues. Psych: No acute issues. Miscellaneous: No acute issues. Prophylaxis: Heparin Diet: Tube feeds Critical care time spent: 60 minutes Quality Stroke Does the patient have a stroke diagnosis?: No VTE Prior VTE?: No VTE Risk Level:: Medical - moderate - high VTE Device Contraindication: N/A - Device Ordered VTE Drug Contraindication: N/A - Med Ordered
--- NOTE | 2023-10-25 11:19 | MHC.CM.PN ---
Pt continues care in ICU: presently being weaned from Precedex and is diuresing. Pt will have PICC placed and his TLC removed. He tolerated PSV trials on Wednesday and hopefully will be able to trial setting today. Clinical updates sent to [facility] in anticipation of a transfer this week pending bed availability and payor auth. CM to follow.
[2023-10-25 11:32] LABS: Glucose, Whole Blood 135 mg/dL (60-115)
--- NOTE | 2023-10-25 12:01 | P.PNNP_ITS ---
Subjective Subjective Date of Service: 10/25/23 Interval history: 62-year-old gentleman with underlying HIV on HAART, hep C, COPD admitted on 10/02/2023 with acute hypoxic respiratory failure secondary to influenza with superimposed bacterial superinfection requiring intubation, pressor, and ventilatory support. Cultures are negative to date. Shock component has resolved. Now with abdominal distention secondary to ileus versus SBO, evaluated by general surgeon and deemed to underlying ileus. Extubated 10/13/2023. On 10/14/2023 with an aspiration event resulting in refractory hypoxia requiring emergent intubation and ventilatory support. Post tracheostomy and gastrostomy on 10/21/2023. No events overnight. UO OK. Needs a PICC line Physical Exam 2 Vital Signs: Vital Signs: Last Vital Signs Temp 98.0 F 10/25/23 07:53 Pulse 96 10/25/23 11:06 Resp 33 H 10/25/23 11:06 BP 113/73 10/25/23 11:00 Pulse Ox 96 10/25/23 11:00 O2 Del Method Mechanical Ventil ation 10/25/23 11:00 O2 Flow Rate 50 10/14/23 10:00 FiO2 30 10/25/23 11:15 BMI result Body Mass Index 21.8 Const: General: no acute distress Eyes: General: appearance normal, both eyes and all related structures Resp: Auscultation: diminished lung sounds Cardio: Rate: regular rate GI: Other: G tube + Neuro: Other: On Vent Extrem: General: Yes no pedal edema Objective Data Labs 10/25/23 04:48 10/25/23 04:48 Labs: Laboratory Results - last 24 hr 10/24/23 10/24/23 10/25/23 17:49 23:53 04:48 WBC 7.8 RBC 3.51 L Hgb 8.3 L Hct 24.8 L MCV 70.7 L MCH 23.6 L MCHC 33.5 RDW 21.8 H Plt Count 232 MPV 11.0 Immature Gran % (Auto) 0.5 H Neut % (Auto) 75.1 H Lymph % (Auto) 14.7 L [place] % (Auto) 8.2 Eos % (Auto) 1.2 Baso % (Auto) 0.3 Lymph # (Auto) 1.1 L [place] # (Auto) 0.6 Eos # (Auto) 0.1 Baso # (Auto) 0.0 Abs Immat Gran (auto) 0.04 H Absolute Neuts (auto) 5.9 Absolute Nucleated RBC 0.000 Nucleated RBC % (auto) 0.0 VBG pH VBG pCO2 VBG pO2 VBG HCO3 VBG O2 Saturation VBG Base Excess Sodium 135 Potassium 3.4 Chloride 111 H Carbon Dioxide 14 L Anion Gap 13 BUN 70 H Creatinine 3.08 H Estim Creat Clear Calc 22.7 Estimated GFR 21 POC Glucose 168 H 174 H Random Glucose 181 H Calcium 8.2 L D Phosphorus 4.2 Magnesium 1.9 Albumin 2.2 L Vancomycin Trough 10/25/23 10/25/23 10/25/23 05:02 08:13 11:19 WBC RBC Hgb Hct MCV MCH MCHC RDW Plt Count MPV Immature Gran % (Auto) Neut % (Auto) Lymph % (Auto) [place] % (Auto) Eos % (Auto) Baso % (Auto) Lymph # (Auto) [place] # (Auto) Eos # (Auto) Baso # (Auto) Abs Immat Gran (auto) Absolute Neuts (auto) Absolute Nucleated RBC Nucleated RBC % (auto) VBG pH 7.34 VBG pCO2 25 VBG pO2 44 VBG HCO3 14 L VBG O2 Saturation 69.0 VBG Base Excess -10.2 Sodium Potassium Chloride Carbon Dioxide Anion Gap BUN Creatinine Estim Creat Clear Calc Estimated GFR POC Glucose 135 H Random Glucose Calcium Phosphorus Magnesium Albumin Vancomycin Trough 14.0 Microbiology Microbiology Results: Microbiology 10/02/23 06:40 Sputum - Suctioned Direct Acid Fast Bacilli Smear - Final 10/02/23 03:11 Blood - Central Line Blood Culture - Final No growth after 5 days. 10/02/23 03:11 Blood - Central Line Blood Culture - Final Coag negative Staphylococcus 10/02/23 06:40 Sputum - Suctioned Gram Stain - Final 10/02/23 06:40 Sputum - Suctioned Sputum Culture - Final 10/02/23 06:40 Urine Catheterized - Miguel Catheter Urine Culture - Final No growth. Procedures Date of Service Date of Service: 10/25/23 Assessment & Plan Assessment and plan (1) AMBER (acute kidney injury): Status: Acute Plan Acute Kidney Injury due to tubular injury UO good; Needs bicarb replacement No further diuretics for now NO indication for HD C/W rest of current supportive care Can have PICC line Labs AM; Shall closely follow up Progress Note: Quality Stroke Does the patient have a stroke diagnosis?: No
[2023-10-25] MEDS: Norepinephrine Bitartrate/D5W 8 MG/250 ML PLAST..BAG 5.93 MG IV (13:23)
[2023-10-25 17:37] LABS: Glucose, Whole Blood 126 mg/dL (60-115)
[2023-10-25] MEDS: dexmedeTOMIDidine HCL/NS 400 MCG/100 ML INFUS..BTL IVCONT (18:15)
--- NOTE | 2023-10-25 18:30 | HO.PICC ---
[facility] Diagnosis: Resp failure Indication: [facility] vass[facility] Pertinent Labs: reviewed Technique: Following informed consent including risks, benefits and alternatives and using sterile technique including cap and mask, sterile gown, glove and drape, the right arm was prepped and draped in the usual sterile fashion of full barrier technique with G. Following completion of Gaffney Protocol the skin and soft tissues were anesthetized with 1% Lidocaine plain. Using ultrasound guidance, right brachial vein access was obtained. Over an 0.018 wire through peel-away sheath, a 5FR double lumen PASV PICC line was positioned. Catheter length is 42cm internal length, 0cm external length, for a total trimmed length of 42cm. The procedure was performed in [facility] ICU. Tip verification was performed by Mariaelena Bravo with Sherlock 3CG. Tip located in SVC. Ultrasound was used to document vein patency and for needle entry. A formal ultrasound picture and cardiac rhythm strip was recorded. [employer] has released the line for use and it is currently dressed with a StatLock, Tegaderm, and CHG disc. Verification has been performed for blood return and line patency. Arm Circumference: 24cm Equipment: Axcient PowerPICC SOLO catheter with Sherlock 3CG Tip Catheter Type: 5fr double lumen PASV PICC line Lot #: [id number]
[2023-10-25] MEDS: Acetaminophen Oral Liquid 650 MG/20.3 ML SOLUTION 975 MG PO (20:15)
[2023-10-25 23:37] LABS: Glucose, Whole Blood 187 mg/dL (60-115)
[2023-10-26] VITALS (36 sets, daily range): BP systolic 81–151; BP diastolic 48–97; PULSE 101–144; RESP 22–41; TEMP 34.6–38.6; O2SAT 93–100; BMI 22.2
[2023-10-26] MEDS: Albumin Human 25 % 100 ML IV (01:54)
[2023-10-26] MEDS: Heparin Sodium,Porcine 5,000 UNIT/ML VIAL 5000 UNIT SUBCUT ×2 (03:57→16:42)
[2023-10-26 05:36] LABS: VBG Base Excess -8.7 mmol/L; VBG HCO3 15 mmol/L (22-26); VBG pCO2 25 mmHg; VBG pH 7.38 (7.32-7.43); VBG pO2 45 mmHg
[2023-10-26 05:42] LABS: Glucose, Whole Blood 142 mg/dL (60-115)
[2023-10-26 06:06] LABS: MANUAL DIFF FLAG NO
[2023-10-26 06:09] LABS: Eosinophils Absolute Auto 0.1 X10*3/uL (0.0-0.4); Eosinophils Percent Auto 2.1 % (0-4); Hematocrit 21.1 % (42.0-52.0); Imm Gran Abs Auto 0.02 X10*3/uL (0.00-0.03); Imm Gran Pct Auto 0.4 % (0.0-0.4); Lymphocytes Absolute Auto 0.6 X10*3/uL (1.2-4.9); Lymphocytes Percent Auto 12.4 % (20-40); Mean Corpuscular HGB Conc 33.2 g/dl (31.0-36.0); Mean Corpuscular Hemoglobin 23.3 pg (27.0-33.0); Mean Corpuscular Volume 70.3 fL (80.0-98.0); Mean Platelet Volume 11.6 fL (9.4-12.4); Monocytes Absolute Auto 0.4 X10*3/uL (0.1-1.2); Neutrophils Absolute Auto 3.6 x10*3/uL (2.0-8.3); Neutrophils Percent Auto 76.1 % (45-73); Platelet Count 239 X10*3/uL (160-400); Red Cell Distribution Width 21.6 % (11.0-16.0); White Blood Count 4.8 X10*3/uL (4.8-10.8)
[2023-10-26 06:26] LABS: Alanine Aminotransferase 17 U/L (0-40); Albumin Level 3.7 g/dL (3.5-5.0); Anion Gap 17 (12-20); Aspartate Amino Transferase 54 U/L (5-37); Bilirubin Total 0.6 mg/dL (0.0-1.0); Blood Urea Nitrogen 76 mg/dL (9-16); Calcium 8.9 mg/dL (8.4-10.2); Carbon Dioxide 15 mmol/L (22-29); Chloride 112 mmol/L (96-108); Estimated Glomerular Filt Rate 19; Glucose Random 150 mg/dL (60-115); Magnesium 1.9 mg/dL (1.6-2.6); Phosphorus 3.8 mg/dL (2.7-4.5); Potassium 2.9 mmol/L (3.3-5.1); Sodium 141 mmol/L (135-145); Total Protein 7.2 g/dL (6.5-8.0)
[2023-10-26 06:39] LABS: Alkaline Phosphatase 102 U/L (39-117)
[2023-10-26 07:08] LABS: Venous Blood Gas Refer to POC result
[2023-10-26] MEDS: Potassium Chloride Packet 20 MEQ PACKET 40 MEQ PO (07:33)
[2023-10-26] MEDS: Albuterol/Iprat 2.5/0.5MG 3 ML AMPUL.NEB INHALE (07:34)
[2023-10-26] MEDS: Nystatin Powder 15 GM BOTTLE 1 APPL TOPICAL ×2 (07:43→21:43)
[2023-10-26] MEDS: 0.9 % Sodium Chloride Flush 10 ML SYRINGE IVFLUSH ×2 (07:43→16:43)
[2023-10-26] MEDS: Chlorhexidine Gluc Oral Rinse 15 ML MOUTHWASH BUCCAL ×3 (08:20→21:42)
[2023-10-26] MEDS: QUEtiapine Fumarate 25 MG TABLET PO ×2 (08:20→21:43)
[2023-10-26] MEDS: Furosemide 40 MG/4 ML VIAL IVPUSH (08:37)
[2023-10-26] MEDS: Potassium Chloride/H20 40 MEQ/100 ML PIGGYBACK 100 MEQ IV ×2 (08:37→09:43)
--- NOTE | 2023-10-26 08:48 | P.PNCC_ITS ---
Subjective Subjective Date of Service: 10/26/23 Interval History: 62-year-old gentleman with underlying HIV on HAART, hep C, COPD admitted on 10/02/2023 with acute hypoxic respiratory failure secondary to influenza with superimposed bacterial superinfection requiring intubation, pressor, and ventilatory support. Cultures are negative to date. Shock component has resolved. Now with abdominal distention secondary to ileus versus SBO, evaluated by general surgeon and deemed to underlying ileus. Extubated 10/13/2023. On 10/14/2023 with an aspiration event resulting in refractory hypoxia requiring emergent intubation and ventilatory support. Post tracheostomy and gastrostomy on 10/21/2023. Now with significant critical illness myopathy. No events overnight. Critical Care Time (minutes): 60 Physical Exam 2 Vital Signs: Vital Signs: Last Vital Signs Temp 98.2 F 10/26/23 08:00 Pulse 126 H 10/26/23 08:00 Resp 36 H 10/26/23 08:00 BP 121/74 10/26/23 08:00 Pulse Ox 96 10/26/23 08:00 O2 Del Method Mechanical Ventil ation 10/26/23 08:00 O2 Flow Rate 50 10/14/23 10:00 FiO2 35 10/26/23 08:00 BMI result Body Mass Index 22.2 Const: General: no acute distress and awake Eyes: Sclerae: sclerae normal EOM: EOMs intact bilaterally Neck: Neck: Yes tracheostomy present (On vent) Resp: Effort & Inspection: normal respiratory effort and no respiratory distress Auscultation: clear to auscultation bilaterally Cardio: Rate: tachycardic Rhythm: regular rhythm Heart sounds: no gallops, no murmurs and no rubs GI: Palpation (GI): Soft to palpation and Other GI palpation findings present ( Nontender) Auscultation: normal bowel sounds Extrem: General: Yes no pedal edema, No clubbing and No cyanosis Objective Data Labs 10/26/23 05:19 10/26/23 05:19 Labs: Laboratory Results - last 24 hr 10/25/23 10/25/23 10/25/23 11:19 17:21 23:31 WBC RBC Hgb Hct MCV MCH MCHC RDW Plt Count MPV Immature Gran % (Auto) Neut % (Auto) Lymph % (Auto) [place] % (Auto) Eos % (Auto) Baso % (Auto) Lymph # (Auto) [place] # (Auto) Eos # (Auto) Baso # (Auto) Abs Immat Gran (auto) Absolute Neuts (auto) Absolute Nucleated RBC Nucleated RBC % (auto) VBG pH VBG pCO2 VBG pO2 VBG HCO3 VBG O2 Saturation VBG Base Excess Sodium Potassium Chloride Carbon Dioxide Anion Gap BUN Creatinine Estim Creat Clear Calc Estimated GFR POC Glucose 135 H 126 H 187 H Random Glucose Calcium Phosphorus Magnesium Total Bilirubin AST ALT Alkaline Phosphatase Total Protein Albumin 10/26/23 10/26/23 10/26/23 05:19 05:29 05:37 WBC 4.8 RBC 3.00 L Hgb 7.0 L* Hct 21.1 L MCV 70.3 L MCH 23.3 L MCHC 33.2 RDW 21.6 H Plt Count 239 MPV 11.6 Immature Gran % (Auto) 0.4 Neut % (Auto) 76.1 H Lymph % (Auto) 12.4 L [place] % (Auto) 9.0 Eos % (Auto) 2.1 Baso % (Auto) 0.0 Lymph # (Auto) 0.6 L [place] # (Auto) 0.4 Eos # (Auto) 0.1 Baso # (Auto) 0.0 Abs Immat Gran (auto) 0.02 Absolute Neuts (auto) 3.6 Absolute Nucleated RBC 0.000 Nucleated RBC % (auto) 0.0 VBG pH 7.38 VBG pCO2 25 VBG pO2 45 VBG HCO3 15 L VBG O2 Saturation 72.0 VBG Base Excess -8.7 Sodium 141 Potassium 2.9 L* Chloride 112 H Carbon Dioxide 15 L Anion Gap 17 BUN 76 H Creatinine 3.31 H Estim Creat Clear Calc 22.0 Estimated GFR 19 POC Glucose 142 H Random Glucose 150 H Calcium 8.9 D Phosphorus 3.8 Magnesium 1.9 Total Bilirubin 0.6 AST 54 H ALT 17 Alkaline Phosphatase 102 Total Protein 7.2 Albumin 3.7 Microbiology Microbiology Results: Microbiology 10/02/23 06:40 Sputum - Suctioned Direct Acid Fast Bacilli Smear - Final 10/02/23 03:11 Blood - Central Line Blood Culture - Final No growth after 5 days. 10/02/23 03:11 Blood - Central Line Blood Culture - Final Coag negative Staphylococcus 10/02/23 06:40 Sputum - Suctioned Gram Stain - Final 10/02/23 06:40 Sputum - Suctioned Sputum Culture - Final 10/02/23 06:40 Urine Catheterized - Miguel Catheter Urine Culture - Final No growth. Progress Note: A&P Assessment and plan (1) Status post tracheostomy: Status: Acute (2) Critical illness myopathy: Status: Acute (3) AMBER (acute kidney injury): Status: Acute (4) HIV (human immunodeficiency virus infection): Status: Acute (5) Acute hypoxic respiratory failure: Status: Acute (6) Hepatitis C: Status: Acute (7) COPD (chronic obstructive pulmonary disease): Status: Acute Plan Assessment: 62-year-old gentleman with underlying HIV on HAART, hep C admitted with acute hypoxic respiratory failure secondary to bacterial superinfection of underlying influenza now requiring ventilatory support Plan: Neuro: No acute issues. Cardiac: Distributive shock, improving, continue to titrate off pressor support as tolerated. Pulmonary: Acute hypoxic respiratory failure secondary to bacterial superinfection of underlying influenza, improved and extubated on 10/13/2023. However with development of recurrent aspirations requiring re-intubation on 10/14/2023. Now status post tracheostomy/gastrostomy on 10/21/2023 Renal: Acute kidney injury. Non oliguric. Continue to monitor renal indices and urine output. Nephrology service care appreciated. Endo: No acute issues. GI: No acute issues. ID: No acute issues Heme/Onc: No acute issues. Psych: No acute issues. Miscellaneous: No acute issues. Prophylaxis: Heparin Diet: Tube feeds Critical care time spent: 60 minutes Quality Stroke Does the patient have a stroke diagnosis?: No VTE Prior VTE?: No VTE Risk Level:: Medical - moderate - high VTE Device Contraindication: N/A - Device Ordered VTE Drug Contraindication: N/A - Med Ordered
[2023-10-26] MEDS: Heparin Sodium,Porcine Flush 50 UNITS, 0.9 % Sodium Chloride Flush 5 ML IVFLUSH ×2 (09:13→16:41)
[2023-10-26] MEDS: dexmedeTOMIDidine HCL/NS 400 MCG/100 ML INFUS..BTL 6.44 MCG IVCONT (09:44)
--- NOTE | 2023-10-26 09:53 | HO.WOUND ---
Wound Consult: Initial 62yr old?[place] [facility] [place] See progress notes and H&P for detailed history.? Wound consult placed for Coccyx wound.? Patient intubated at the time of my consultation. Left Sacrum Etiology: ?Deep Tissue Injury in Evolution ? Measurements: 2cm x 1cm x 0cm Wound Bed: Dark maroon nonblanchable tissue with lifting epidermal layer noted Drainage / Odor: None noted Edges: ? well defined Kellen wound: ?Scar tissue noted indicating previous full thickness pressure injury - hyperpigmentation noted - No Induration, Fluctuance or Warmth noted Pain: Intubated Goals of Treatment: ? Moist wound healing with Triad and Foam and protect from friction Recommendations: 1. Turn and Reposition every 2 hours and as needed for patient comfort.? Use pillows or wedges to support off loading positions. 2. Off Load all bony prominences with use of pillows and heel boots if needed.? Apply Preventative foams where needed. ? 3. Monitor for incontinence and moisture control, use barrier creams when needed for prevention and treatment. 4. Provide adequate and supplemental nutrition.? 5. Order or Continue low air loss mattress. 6. When applicable maintain blood glucose levels per Providers order. 7. Sacrum - Cleanse with PH balance spray or wipes, pat dry. ?Apply thin layer of Triad to wound bed. Do not remove all of paste between applications as this may cause further skin damage.? Cover with foam dressing to aid in off loading and protection from friction. Re-consult wound care Nurse for wound deterioration or wound changes.
[2023-10-26 11:58] LABS: Glucose, Whole Blood 154 mg/dL (60-115)
[2023-10-26] MEDS: Fluconazole in NaCl,Iso-Osm 100 MG in Container,Empty 0 ML 50 MG IV (12:00)
[2023-10-26] MEDS: Insulin Lispro 100 UNIT/ML 3 ML VIAL SUBCUT ×2 (12:14→18:30)
[2023-10-26] MEDS: Metoprolol Tartrate 5 MG/5 ML VIAL IVPUSH (15:01)
[2023-10-26 18:34] LABS: Glucose, Whole Blood 152 mg/dL (60-115)
--- NOTE | 2023-10-26 19:05 | PM.PNNEP ---
Subjective Subjective Date of Service: 10/26/23 Interval history: 62-year-old gentleman with underlying HIV on HAART, hep C, COPD admitted on 10/02/2023 with acute hypoxic respiratory failure secondary to influenza with superimposed bacterial superinfection requiring intubation, pressor, and ventilatory support. Cultures are negative to date. Shock component has resolved. Now with abdominal distention secondary to ileus versus SBO, evaluated by general surgeon and deemed to underlying ileus. Extubated 10/13/2023. On 10/14/2023 with an aspiration event resulting in refractory hypoxia requiring emergent intubation and ventilatory support. Post tracheostomy and gastrostomy on 10/21/2023. Now with significant critical illness myopathy. No events overnight. Physical Exam Vital Signs: Vital Signs: Last Vital Signs Temp 99.7 F 10/26/23 16:00 Pulse 140 H 10/26/23 18:00 Resp 35 H 10/26/23 18:00 BP 151/92 H 10/26/23 18:00 Pulse Ox 95 10/26/23 18:00 O2 Del Method Mechanical Ventil ation 10/26/23 18:00 O2 Flow Rate 50 10/14/23 10:00 FiO2 30 10/26/23 18:00 BMI result Body Mass Index 22.2 Const: Other: Trach + General: no acute distress Resp: Auscultation: clear to auscultation bilaterally Cardio: Jugular venous distension: no JVD Rate: regular rate GI: Other: G tube + Auscultation: normal bowel sounds Skin: General skin exam: no rashes or lesions noted Extrem: General: Yes no pedal edema Objective Data Labs 10/26/23 05:19 10/26/23 05:19 Labs: Laboratory Results - last 24 hr 10/25/23 10/26/23 10/26/23 23:31 05:19 05:29 WBC 4.8 RBC 3.00 L Hgb 7.0 L* Hct 21.1 L MCV 70.3 L MCH 23.3 L MCHC 33.2 RDW 21.6 H Plt Count 239 MPV 11.6 Immature Gran % (Auto) 0.4 Neut % (Auto) 76.1 H Lymph % (Auto) 12.4 L [place] % (Auto) 9.0 Eos % (Auto) 2.1 Baso % (Auto) 0.0 Lymph # (Auto) 0.6 L [place] # (Auto) 0.4 Eos # (Auto) 0.1 Baso # (Auto) 0.0 Abs Immat Gran (auto) 0.02 Absolute Neuts (auto) 3.6 Absolute Nucleated RBC 0.000 Nucleated RBC % (auto) 0.0 VBG pH 7.38 VBG pCO2 25 VBG pO2 45 VBG HCO3 15 L VBG O2 Saturation 72.0 VBG Base Excess -8.7 Sodium 141 Potassium 2.9 L* Chloride 112 H Carbon Dioxide 15 L Anion Gap 17 BUN 76 H Creatinine 3.31 H Estim Creat Clear Calc 22.0 Estimated GFR 19 POC Glucose 187 H Random Glucose 150 H Calcium 8.9 D Phosphorus 3.8 Magnesium 1.9 Total Bilirubin 0.6 AST 54 H ALT 17 Alkaline Phosphatase 102 Total Protein 7.2 Albumin 3.7 10/26/23 10/26/23 10/26/23 05:37 11:52 18:27 WBC RBC Hgb Hct MCV MCH MCHC RDW Plt Count MPV Immature Gran % (Auto) Neut % (Auto) Lymph % (Auto) [place] % (Auto) Eos % (Auto) Baso % (Auto) Lymph # (Auto) [place] # (Auto) Eos # (Auto) Baso # (Auto) Abs Immat Gran (auto) Absolute Neuts (auto) Absolute Nucleated RBC Nucleated RBC % (auto) VBG pH VBG pCO2 VBG pO2 VBG HCO3 VBG O2 Saturation VBG Base Excess Sodium Potassium Chloride Carbon Dioxide Anion Gap BUN Creatinine Estim Creat Clear Calc Estimated GFR POC Glucose 142 H 154 H 152 H Random Glucose Calcium Phosphorus Magnesium Total Bilirubin AST ALT Alkaline Phosphatase Total Protein Albumin Microbiology Microbiology Results: Microbiology 10/02/23 06:40 Sputum - Suctioned Direct Acid Fast Bacilli Smear - Final 10/02/23 03:11 Blood - Central Line Blood Culture - Final No growth after 5 days. 10/02/23 03:11 Blood - Central Line Blood Culture - Final Coag negative Staphylococcus 10/02/23 06:40 Sputum - Suctioned Gram Stain - Final 10/02/23 06:40 Sputum - Suctioned Sputum Culture - Final 10/02/23 06:40 Urine Catheterized - Miguel Catheter Urine Culture - Final No growth. Procedures Date of Service Date of Service: 10/26/23 Assessment & Plan Assessment and plan (1) AMBER (acute kidney injury): Status: Acute Plan Acute Kidney Injury due to tubular injury UO good; Needs bicarb replacement No further diuretics for now NO indication for HD; Keep K over 4 C/W rest of current supportive care Labs AM; Shall closely follow up Progress Note: Quality Stroke Does the patient have a stroke diagnosis?: No
[2023-10-26] MEDS: Acetaminophen Oral Liquid 650 MG/20.3 ML SOLUTION 975 MG PO (19:24)
[2023-10-26] MEDS: Norepinephrine Bitartrate/D5W 8 MG/250 ML PLAST..BAG 4.44 MG IV (19:48)
[2023-10-27] VITALS (38 sets, daily range): BP systolic 110–150; BP diastolic 72–100; PULSE 106–173; RESP 21–39; TEMP 34.2–38.1; O2SAT 88–99; BMI 21.1
[2023-10-27 00:03] LABS: Glucose, Whole Blood 164 mg/dL (60-115)
[2023-10-27] MEDS: 0.9 % Sodium Chloride Flush 10 ML SYRINGE IVFLUSH ×4 (00:10→21:20)
[2023-10-27] MEDS: dexmedeTOMIDidine HCL/NS 400 MCG/100 ML INFUS..BTL 6.44 MCG IVCONT (00:13)
[2023-10-27] MEDS: Heparin Sodium,Porcine Flush 50 UNITS, 0.9 % Sodium Chloride Flush 5 ML IVFLUSH ×3 (00:16→16:06)
[2023-10-27] MEDS: Insulin Lispro 100 UNIT/ML 3 ML VIAL SUBCUT ×4 (00:18→17:55)
[2023-10-27] MEDS: Heparin Sodium,Porcine 5,000 UNIT/ML VIAL 5000 UNIT SUBCUT ×2 (04:42→16:06)
[2023-10-27 05:18] LABS: VBG HCO3 13 mmol/L (22-26); VBG pCO2 22 mmHg; VBG pH 7.38 (7.32-7.43); VBG pO2 42 mmHg
[2023-10-27 05:42] LABS: MANUAL DIFF FLAG NO
[2023-10-27 05:45] LABS: Basophils Percent Auto 0.2 % (0-2); Eosinophils Absolute Auto 0.1 X10*3/uL (0.0-0.4); Hematocrit 23.8 % (42.0-52.0); Hemoglobin 7.8 g/dl (14.0-18.0); Imm Gran Abs Auto 0.03 X10*3/uL (0.00-0.03); Imm Gran Pct Auto 0.5 % (0.0-0.4); Lymphocytes Absolute Auto 0.6 X10*3/uL (1.2-4.9); Lymphocytes Percent Auto 10.2 % (20-40); Mean Corpuscular HGB Conc 32.8 g/dl (31.0-36.0); Mean Corpuscular Hemoglobin 23.1 pg (27.0-33.0); Mean Corpuscular Volume 70.6 fL (80.0-98.0); Mean Platelet Volume 11.5 fL (9.4-12.4); Monocytes Absolute Auto 0.5 X10*3/uL (0.1-1.2); Monocytes Percent Auto 9.6 % (2-11); Neutrophils Absolute Auto 4.3 x10*3/uL (2.0-8.3); Neutrophils Percent Auto 77.5 % (45-73); Platelet Count 258 X10*3/uL (160-400); Red Blood Count 3.37 X10*6/uL (4.60-5.80); Red Cell Distribution Width 22.1 % (11.0-16.0); White Blood Count 5.5 X10*3/uL (4.8-10.8)
[2023-10-27 05:52] LABS: Glucose, Whole Blood 164 mg/dL (60-115)
[2023-10-27 05:57] LABS: Albumin Level 3.4 g/dL (3.5-5.0); Anion Gap 14 (12-20); Blood Urea Nitrogen 93 mg/dL (9-16); Calcium 9.2 mg/dL (8.4-10.2); Carbon Dioxide 13 mmol/L (22-29); Chloride 119 mmol/L (96-108); Creatinine Clr Calc Pharmacy 21.6; Estimated Glomerular Filt Rate 20; Glucose Random 159 mg/dL (60-115); Phosphorus 2.8 mg/dL (2.7-4.5); Potassium 3.7 mmol/L (3.3-5.1); Sodium 142 mmol/L (135-145)
[2023-10-27 06:32] LABS: Venous Blood Gas Refer to POC result
[2023-10-27] MEDS: Acetaminophen Oral Liquid 650 MG/20.3 ML SOLUTION 975 MG PO (08:23)
[2023-10-27] MEDS: QUEtiapine Fumarate 25 MG TABLET PO ×2 (08:24→21:17)
[2023-10-27] MEDS: Metoprolol Tartrate 25 MG TABLET PO ×3 (08:24→21:17)
[2023-10-27] MEDS: Chlorhexidine Gluc Oral Rinse 15 ML MOUTHWASH BUCCAL ×3 (08:24→21:17)
[2023-10-27] MEDS: Potassium Chloride/H20 40 MEQ/100 ML PIGGYBACK 100 MEQ IV (08:25)
[2023-10-27] MEDS: Nystatin Powder 15 GM BOTTLE 1 APPL TOPICAL ×2 (08:25→21:17)
--- NOTE | 2023-10-27 08:44 | P.PNCC_ITS ---
Subjective Subjective Date of Service: 10/27/23 Interval History: 62-year-old gentleman with underlying HIV on HAART, hep C, COPD admitted on 10/02/2023 with acute hypoxic respiratory failure secondary to influenza with superimposed bacterial superinfection requiring intubation, pressor, and ventilatory support. Cultures are negative to date. Shock component has resolved. Now with abdominal distention secondary to ileus versus SBO, evaluated by general surgeon and deemed to underlying ileus. Extubated 10/13/2023. On 10/14/2023 with an aspiration event resulting in refractory hypoxia requiring emergent intubation and ventilatory support. Post tracheostomy and gastrostomy on 10/21/2023. Now with significant critical illness myopathy. No events overnight. Improving tolerance of pressor support trials. Titrated off pressors and Precedex. Critical Care Time (minutes): 60 Physical Exam 2 Vital Signs: Vital Signs: Last Vital Signs Temp 100.6 F H 10/27/23 08:00 Pulse 136 H 10/27/23 08:02 Resp 34 H 10/27/23 08:00 BP 130/90 H 10/27/23 08:02 Pulse Ox 97 10/27/23 08:00 O2 Del Method Mechanical Ventil ation 10/27/23 08:00 O2 Flow Rate 50 10/14/23 10:00 FiO2 30 10/27/23 08:00 BMI result Body Mass Index 21.1 Const: General: no acute distress and alert HEENT: Head: Yes atraumatic Eyes: General: appearance normal, both eyes and all related structures S clerae: sclerae normal EOM: EOMs intact bilaterally Neck: Neck: Yes tracheostomy present (On vent) Resp: Auscultation: clear to auscultation bilaterally Cardio: Rate: tachycardic Rhythm: regular rhythm Heart sounds: no gallops, no murmurs and no rubs GI: Inspection: Yes G-tube present Palpation (GI): Soft to palpation and Other GI palpation findings present ( Nontender) Auscultation: normal bowel sounds Skin: General skin exam: other ( warm) Extrem: General: No clubbing, No cyanosis and No edema Objective Data Labs 10/27/23 05:11 10/27/23 05:11 Labs: Laboratory Results - last 24 hr 10/26/23 10/26/23 10/26/23 11:52 18:27 23:59 WBC RBC Hgb Hct MCV MCH MCHC RDW Plt Count MPV Immature Gran % (Auto) Neut % (Auto) Lymph % (Auto) [place] % (Auto) Eos % (Auto) Baso % (Auto) Lymph # (Auto) [place] # (Auto) Eos # (Auto) Baso # (Auto) Abs Immat Gran (auto) Absolute Neuts (auto) Absolute Nucleated RBC Nucleated RBC % (auto) VBG pH VBG pCO2 VBG pO2 VBG HCO3 VBG O2 Saturation VBG Base Excess Sodium Potassium Chloride Carbon Dioxide Anion Gap BUN Creatinine Estim Creat Clear Calc Estimated GFR POC Glucose 154 H 152 H 164 H Random Glucose Calcium Phosphorus Magnesium Albumin 10/27/23 10/27/23 10/27/23 05:10 05:11 05:49 WBC 5.5 RBC 3.37 L Hgb 7.8 L Hct 23.8 L MCV 70.6 L MCH 23.1 L MCHC 32.8 RDW 22.1 H Plt Count 258 MPV 11.5 Immature Gran % (Auto) 0.5 H Neut % (Auto) 77.5 H Lymph % (Auto) 10.2 L [place] % (Auto) 9.6 Eos % (Auto) 2.0 Baso % (Auto) 0.2 Lymph # (Auto) 0.6 L [place] # (Auto) 0.5 Eos # (Auto) 0.1 Baso # (Auto) 0.0 Abs Immat Gran (auto) 0.03 Absolute Neuts (auto) 4.3 Absolute Nucleated RBC 0.000 Nucleated RBC % (auto) 0.0 VBG pH 7.38 VBG pCO2 22 VBG pO2 42 VBG HCO3 13 L VBG O2 Saturation 70.0 VBG Base Excess -10.0 Sodium 142 Potassium 3.7 D Chloride 119 H Carbon Dioxide 13 L Anion Gap 14 BUN 93 H Creatinine 3.20 H Estim Creat Clear Calc 21.6 Estimated GFR 20 POC Glucose 164 H Random Glucose 159 H Calcium 9.2 Phosphorus 2.8 Magnesium 2.0 Albumin 3.4 L Microbiology Microbiology Results: Microbiology 10/02/23 06:40 Sputum - Suctioned Direct Acid Fast Bacilli Smear - Final 10/02/23 03:11 Blood - Central Line Blood Culture - Final No growth after 5 days. 10/02/23 03:11 Blood - Central Line Blood Culture - Final Coag negative Staphylococcus 10/02/23 06:40 Sputum - Suctioned Gram Stain - Final 10/02/23 06:40 Sputum - Suctioned Sputum Culture - Final 10/02/23 06:40 Urine Catheterized - Miguel Catheter Urine Culture - Final No growth. Progress Note: A&P Assessment and plan (1) Status post tracheostomy: Status: Acute (2) Critical illness myopathy: Status: Acute (3) AMBER (acute kidney injury): Status: Acute (4) HIV (human immunodeficiency virus infection): Status: Acute (5) Acute hypoxic respiratory failure: Status: Acute (6) Hepatitis C: Status: Acute (7) COPD (chronic obstructive pulmonary disease): Status: Acute Plan Assessment: 62-year-old gentleman with underlying HIV on HAART, hep C admitted with acute hypoxic respiratory failure secondary to bacterial superinfection of underlying influenza now requiring ventilatory support Plan: Neuro: No acute issues. Cardiac: Distributive shock, resolved. Pulmonary: Acute hypoxic respiratory failure secondary to bacterial superinfection of underlying influenza, improved and extubated on 10/13/2023. However with development of recurrent aspirations requiring re-intubation on 10/14/2023. Now status post tracheostomy/gastrostomy on 10/21/2023. Improving tolerance of pressure support trials. Renal: Acute kidney injury. Non oliguric. Continue to monitor renal indices and urine output. Nephrology service care appreciated. Endo: No acute issues. GI: No acute issues. ID: No acute issues Heme/Onc: No acute issues. Psych: No acute issues. Miscellaneous: Critical illness myopathy, continue with PT. Prophylaxis: Heparin Diet: Tube feeds Critical care time spent: 60 minutes Quality Stroke Does the patient have a stroke diagnosis?: No VTE Prior VTE?: No VTE Risk Level:: Medical - moderate - high VTE Device Contraindication: N/A - Device Ordered VTE Drug Contraindication: N/A - Med Ordered
--- NOTE | 2023-10-27 09:35 | MHC.CLN ---
F/U DISCUSSED AT ROUNDS WITH MD REVIEWED LABS PT RECEIVING NEPRO TO MAX GOAL RATE 35ML/HR WITH 240ML Q 6 HRS TO PROVIDE 1512KCALS (1935KCALS WITH SEDATION; 29KCALS/KG), 68G PROTEIN (1.0G/KG), 1570ML TOTAL FREE WATER FROM FORMULA AND FLUSHES (24ML/KG) PT WITH NEW DTI BUTTOCKS WITH INCREASED NUTRITION RISK RECOMMEND INCREASING TF NEPRO TO MAX GOAL RATE 45ML/HR WITH 240ML Q 6 HR TO PROVIDE 1944KCALS (30KCALS/KG), 87G PROTEIN (1.3G/KG), 1745ML TOTAL WATER FROM FORMULA AND FLUSHES (26ML/KG) TF WILL PROMOTE WOUND HEALING CONTINUE TO MONITOR TOLERANCE, RESIDUALS, AND LYTES
[2023-10-27] MEDS: Metoprolol Tartrate 5 MG/5 ML VIAL IVPUSH (11:35)
[2023-10-27 11:37] LABS: Glucose, Whole Blood 189 mg/dL (60-115)
[2023-10-27] MEDS: Fluconazole in NaCl,Iso-Osm 100 MG in Container,Empty 0 ML 50 MG IV (13:14)
--- NOTE | 2023-10-27 16:02 | MHC.CM.PN ---
PT REMAINS IN ICU AND WEANING OFF PRESSORS. S/P PEG AND TRACH PLACEMENT, [facility] GIVEN CLINICAL UPDATES VIA [facility]. CM WILL CONTINU TO FOLLOW FOR ANY CHANGE IN DC PLAN
[2023-10-27 17:42] LABS: Glucose, Whole Blood 152 mg/dL (60-115)
--- NOTE | 2023-10-27 21:19 | PM.PNNEP ---
Subjective Subjective Date of Service: 10/27/23 Interval history: 62-year-old gentleman with underlying HIV on HAART, hep C, COPD admitted on 10/02/2023 with acute hypoxic respiratory failure secondary to influenza with superimposed bacterial superinfection requiring intubation, pressor, and ventilatory support. Cultures are negative to date. Shock component has resolved. Now with abdominal distention secondary to ileus versus SBO, evaluated by general surgeon and deemed to underlying ileus. Extubated 10/13/2023. On 10/14/2023 with an aspiration event resulting in refractory hypoxia requiring emergent intubation and ventilatory support. Post tracheostomy and gastrostomy on 10/21/2023. Now with significant critical illness myopathy. No events overnight. Improving tolerance of pressor support trials. Titrated off pressors and Precedex. Physical Exam Vital Signs: Vital Signs: Last Vital Signs Temp 98.8 F 10/27/23 20:00 Pulse 126 H 10/27/23 21:00 Resp 38 H 10/27/23 21:00 BP 139/95 H 10/27/23 21:00 Pulse Ox 91 L 10/27/23 21:00 O2 Del Method Mechanical Ventil ation 10/27/23 21:00 O2 Flow Rate 50 10/14/23 10:00 FiO2 30 10/27/23 21:00 BMI result Body Mass Index 21.1 Const: Other: Trach + Resp: Auscultation: diminished lung sounds Cardio: Rate: regular rate GI: Other: G tube + Neuro: General: moves all extremities Extrem: General: Yes no pedal edema Objective Data Labs 10/27/23 05:11 10/27/23 05:11 Labs: Laboratory Results - last 24 hr 10/26/23 10/27/23 10/27/23 23:59 05:10 05:11 WBC 5.5 RBC 3.37 L Hgb 7.8 L Hct 23.8 L MCV 70.6 L MCH 23.1 L MCHC 32.8 RDW 22.1 H Plt Count 258 MPV 11.5 Immature Gran % (Auto) 0.5 H Neut % (Auto) 77.5 H Lymph % (Auto) 10.2 L [place] % (Auto) 9.6 Eos % (Auto) 2.0 Baso % (Auto) 0.2 Lymph # (Auto) 0.6 L [place] # (Auto) 0.5 Eos # (Auto) 0.1 Baso # (Auto) 0.0 Abs Immat Gran (auto) 0.03 Absolute Neuts (auto) 4.3 Absolute Nucleated RBC 0.000 Nucleated RBC % (auto) 0.0 VBG pH 7.38 VBG pCO2 22 VBG pO2 42 VBG HCO3 13 L VBG O2 Saturation 70.0 VBG Base Excess -10.0 Sodium 142 Potassium 3.7 D Chloride 119 H Carbon Dioxide 13 L Anion Gap 14 BUN 93 H Creatinine 3.20 H Estim Creat Clear Calc 21.6 Estimated GFR 20 POC Glucose 164 H Random Glucose 159 H Calcium 9.2 Phosphorus 2.8 Magnesium 2.0 Albumin 3.4 L 10/27/23 10/27/23 10/27/23 05:49 11:33 17:33 WBC RBC Hgb Hct MCV MCH MCHC RDW Plt Count MPV Immature Gran % (Auto) Neut % (Auto) Lymph % (Auto) [place] % (Auto) Eos % (Auto) Baso % (Auto) Lymph # (Auto) [place] # (Auto) Eos # (Auto) Baso # (Auto) Abs Immat Gran (auto) Absolute Neuts (auto) Absolute Nucleated RBC Nucleated RBC % (auto) VBG pH VBG pCO2 VBG pO2 VBG HCO3 VBG O2 Saturation VBG Base Excess Sodium Potassium Chloride Carbon Dioxide Anion Gap BUN Creatinine Estim Creat Clear Calc Estimated GFR POC Glucose 164 H 189 H 152 H Random Glucose Calcium Phosphorus Magnesium Albumin Microbiology Microbiology Results: Microbiology 10/02/23 06:40 Sputum - Suctioned Direct Acid Fast Bacilli Smear - Final 10/02/23 03:11 Blood - Central Line Blood Culture - Final No growth after 5 days. 10/02/23 03:11 Blood - Central Line Blood Culture - Final Coag negative Staphylococcus 10/02/23 06:40 Sputum - Suctioned Gram Stain - Final 10/02/23 06:40 Sputum - Suctioned Sputum Culture - Final 10/02/23 06:40 Urine Catheterized - Miguel Catheter Urine Culture - Final No growth. Procedures Date of Service Date of Service: 10/27/23 Assessment & Plan Assessment and plan (1) AMBER (acute kidney injury): Status: Acute Plan Acute Kidney Injury due to tubular injury UO good; Needs bicarb replacement Diuretics as on a needed basis for now NO indication for HD; Keep K over 4 C/W rest of current supportive care Labs AM; Shall closely follow up Progress Note: Quality Stroke Does the patient have a stroke diagnosis?: No
[2023-10-27] MEDS: HYDROmorphone HCl 0.5 MG/0.5 ML SYRINGE IVPUSH (23:31)
[2023-10-27 23:56] LABS: Glucose, Whole Blood 148 mg/dL (60-115)
[2023-10-28] VITALS (31 sets, daily range): BP systolic 92–132; BP diastolic 61–86; PULSE 95–135; RESP 22–38; TEMP 34.8–37.6; O2SAT 95–100; BMI 19.8
[2023-10-28] MEDS: Heparin Sodium,Porcine 5,000 UNIT/ML VIAL 5000 UNIT SUBCUT ×2 (05:35→15:47)
[2023-10-28 05:47] LABS: VBG Base Excess -12.7 mmol/L; VBG HCO3 12 mmol/L (22-26); VBG pCO2 24 mmHg; VBG pH 7.29 (7.32-7.43); VBG pO2 45 mmHg
[2023-10-28 05:51] LABS: Venous Blood Gas Refer to POC result
[2023-10-28 05:57] LABS: Glucose, Whole Blood 139 mg/dL (60-115)
[2023-10-28] MEDS: Sodium Bicarbonate 8.4% 50 MEQ/50 ML VIAL IVPUSH (06:12)
[2023-10-28 06:20] LABS: MANUAL DIFF FLAG NO
[2023-10-28 06:30] LABS: Basophils Percent Auto 0.3 % (0-2); Eosinophils Percent Auto 0.5 % (0-4); Hematocrit 25.1 % (42.0-52.0); Hemoglobin 8.2 g/dl (14.0-18.0); Imm Gran Abs Auto 0.04 X10*3/uL (0.00-0.03); Imm Gran Pct Auto 0.5 % (0.0-0.4); Lymphocytes Absolute Auto 0.7 X10*3/uL (1.2-4.9); Lymphocytes Percent Auto 8.6 % (20-40); Mean Corpuscular HGB Conc 32.7 g/dl (31.0-36.0); Mean Corpuscular Hemoglobin 23.5 pg (27.0-33.0); Mean Corpuscular Volume 71.9 fL (80.0-98.0); Mean Platelet Volume 10.9 fL (9.4-12.4); Monocytes Absolute Auto 0.9 X10*3/uL (0.1-1.2); NRBC Pct Auto 0.3 /100WBC (0.0-0.2); Neutrophils Absolute Auto 6.3 x10*3/uL (2.0-8.3); Neutrophils Percent Auto 79.1 % (45-73); Platelet Count 303 X10*3/uL (160-400); Red Blood Count 3.49 X10*6/uL (4.60-5.80); Red Cell Distribution Width 22.5 % (11.0-16.0)
[2023-10-28 06:53] LABS: Albumin Level 3.4 g/dL (3.5-5.0); Anion Gap 17 (12-20); Blood Urea Nitrogen 100 mg/dL (9-16); Calcium 9.5 mg/dL (8.4-10.2); Carbon Dioxide 12 mmol/L (22-29); Chloride 121 mmol/L (96-108); Creatinine Clr Calc Pharmacy 22.5; Estimated Glomerular Filt Rate 22; Glucose Random 147 mg/dL (60-115); Magnesium 2.3 mg/dL (1.6-2.6); Phosphorus 3.2 mg/dL (2.7-4.5); Potassium 3.9 mmol/L (3.3-5.1); Sodium 146 mmol/L (135-145)
[2023-10-28] MEDS: 0.9 % Sodium Chloride Flush 10 ML SYRINGE IVFLUSH ×2 (07:30→15:48)
[2023-10-28] MEDS: Chlorhexidine Gluc Oral Rinse 15 ML MOUTHWASH BUCCAL ×3 (09:17→21:43)
[2023-10-28] MEDS: Nystatin Powder 15 GM BOTTLE 1 APPL TOPICAL ×2 (09:17→21:43)
[2023-10-28] MEDS: QUEtiapine Fumarate 25 MG TABLET PO ×2 (09:17→21:42)
[2023-10-28] MEDS: Metoprolol Tartrate 50 MG TABLET PO ×3 (09:43→21:43)
[2023-10-28] MEDS: Tobramycin Sulfate 80 MG/2 ML VIAL 300 MG INHALE ×2 (10:54→20:20)
--- NOTE | 2023-10-28 11:13 | MHC.CM.PN ---
Pt OOB to [place] chair: tracking, following simple commands and tolerating periods of PSV trials. Off of sedation and doing well on Seroquel. Clinical updates sent to [facility]: facility cannot get auth for transfer until BUN and creatinine show downtrending: creat is better but BUN is up to 100 from 93 yesterday. Updated ICU provider. Will re-review on 10/28.
[2023-10-28] MEDS: Insulin Lispro 100 UNIT/ML 3 ML VIAL SUBCUT (11:43)
[2023-10-28] MEDS: Fluconazole in NaCl,Iso-Osm 100 MG in Container,Empty 0 ML 50 MG IV (11:43)
[2023-10-28 11:49] LABS: Glucose, Whole Blood 167 mg/dL (60-115)
--- NOTE | 2023-10-28 12:10 | P.PNCC_ITS ---
Subjective Subjective Date of Service: 10/28/23 Interval History: 62-year-old gentleman with underlying HIV on HAART, hep C, COPD admitted on 10/02/2023 with acute hypoxic respiratory failure secondary to influenza with superimposed bacterial superinfection requiring intubation, pressor, and ventilatory support. Cultures are negative to date. Shock component has resolved. Now with abdominal distention secondary to ileus versus SBO, evaluated by general surgeon and deemed to underlying ileus. Extubated 10/13/2023. On 10/14/2023 with an aspiration event resulting in refractory hypoxia requiring emergent intubation and ventilatory support. Post tracheostomy and gastrostomy on 10/21/2023. Now with significant critical illness myopathy. No events overnight. Tolerated over 4 hours of pressure support trial. Creatinine is improving, BUN is lagging behind. Critical Care Time (minutes): 60 Physical Exam 2 Vital Signs: Vital Signs: Last Vital Signs Temp 99.0 F 10/28/23 08:00 Pulse 99 10/28/23 11:00 Resp 36 H 10/28/23 11:00 BP 106/71 10/28/23 11:00 Pulse Ox 96 10/28/23 11:00 O2 Del Method Mechanical Ventil ation 10/28/23 11:00 O2 Flow Rate 50 10/14/23 10:00 FiO2 35 10/28/23 11:08 BMI result Body Mass Index 19.8 Const: General: no acute distress and alert HEENT: Head: Yes atraumatic Eyes: General: appearance normal, both eyes and all related structures S clerae: sclerae normal EOM: EOMs intact bilaterally Neck: Neck: Yes supple and Yes tracheostomy present (On vent) Lymphatic: no lymphadenopathy noted Resp: Auscultation: clear to auscultation bilaterally Cardio: Rate: tachycardic Rhythm: regular rhythm Heart sounds: no gallops, no murmurs and no rubs GI: Inspection: Yes G-tube present Palpation (GI): Soft to palpation and Other GI palpation findings present ( Nontender) Auscultation: normal bowel sounds Skin: General skin exam: other ( warm) Extrem: General: No clubbing, No cyanosis and No edema Objective Data Labs 10/28/23 05:29 10/28/23 05:29 Labs: Laboratory Results - last 24 hr 10/27/23 10/27/23 10/28/23 17:33 23:49 05:29 WBC 8.0 RBC 3.49 L Hgb 8.2 L Hct 25.1 L MCV 71.9 L MCH 23.5 L MCHC 32.7 RDW 22.5 H Plt Count 303 MPV 10.9 Immature Gran % (Auto) 0.5 H Neut % (Auto) 79.1 H Lymph % (Auto) 8.6 L [place] % (Auto) 11.0 Eos % (Auto) 0.5 Baso % (Auto) 0.3 Lymph # (Auto) 0.7 L [place] # (Auto) 0.9 Eos # (Auto) 0.0 Baso # (Auto) 0.0 Abs Immat Gran (auto) 0.04 H Absolute Neuts (auto) 6.3 Absolute Nucleated RBC 0.020 H Nucleated RBC % (auto) 0.3 H VBG pH VBG pCO2 VBG pO2 VBG HCO3 VBG O2 Saturation VBG Base Excess Sodium 146 H Potassium 3.9 Chloride 121 H Carbon Dioxide 12 L Anion Gap 17 BUN 100 H Creatinine 2.88 H Estim Creat Clear Calc 22.5 Estimated GFR 22 POC Glucose 152 H 148 H Random Glucose 147 H Calcium 9.5 Phosphorus 3.2 Magnesium 2.3 Albumin 3.4 L 10/28/23 10/28/23 10/28/23 05:40 05:50 11:38 WBC RBC Hgb Hct MCV MCH MCHC RDW Plt Count MPV Immature Gran % (Auto) Neut % (Auto) Lymph % (Auto) [place] % (Auto) Eos % (Auto) Baso % (Auto) Lymph # (Auto) [place] # (Auto) Eos # (Auto) Baso # (Auto) Abs Immat Gran (auto) Absolute Neuts (auto) Absolute Nucleated RBC Nucleated RBC % (auto) VBG pH 7.29 L VBG pCO2 24 VBG pO2 45 VBG HCO3 12 L VBG O2 Saturation 71.0 VBG Base Excess -12.7 Sodium Potassium Chloride Carbon Dioxide Anion Gap BUN Creatinine Estim Creat Clear Calc Estimated GFR POC Glucose 139 H 167 H Random Glucose Calcium Phosphorus Magnesium Albumin Microbiology Microbiology Results: Microbiology 10/02/23 06:40 Sputum - Suctioned Direct Acid Fast Bacilli Smear - Final 10/02/23 03:11 Blood - Central Line Blood Culture - Final No growth after 5 days. 10/02/23 03:11 Blood - Central Line Blood Culture - Final Coag negative Staphylococcus 10/02/23 06:40 Sputum - Suctioned Gram Stain - Final 10/02/23 06:40 Sputum - Suctioned Sputum Culture - Final 10/02/23 06:40 Urine Catheterized - Miguel Catheter Urine Culture - Final No growth. Progress Note: A&P Assessment and plan (1) Status post tracheostomy: Status: Acute (2) Critical illness myopathy: Status: Acute (3) AMBER (acute kidney injury): Status: Acute (4) HIV (human immunodeficiency virus infection): Status: Acute (5) Acute hypoxic respiratory failure: Status: Acute (6) Hepatitis C: Status: Acute (7) COPD (chronic obstructive pulmonary disease): Status: Acute Plan Assessment: 62-year-old gentleman with underlying HIV on HAART, hep C admitted with acute hypoxic respiratory failure secondary to bacterial superinfection of underlying influenza now requiring ventilatory support Plan: Neuro: No acute issues. Cardiac: Distributive shock, resolved. Pulmonary: Acute hypoxic respiratory failure secondary to bacterial superinfection of underlying influenza, improved and extubated on 10/13/2023. However with development of recurrent aspirations requiring re-intubation on 10/14/2023. Now status post tracheostomy/gastrostomy on 10/21/2023. Improving tolerance of pressure support trials. Renal: Acute kidney injury, creatinine is improving, BUN is lagging behind. Non oliguric. Continue to monitor renal indices and urine output. Nephrology service care appreciated. Endo: No acute issues. GI: No acute issues. ID: Fluconazole for thrush. Heme/Onc: No acute issues. Psych: No acute issues. Miscellaneous: Critical illness myopathy, continue with PT. Prophylaxis: Heparin Diet: Tube feeds Critical care time spent: 60 minutes Quality Stroke Does the patient have a stroke diagnosis?: No VTE Prior VTE?: No VTE Risk Level:: Medical - moderate - high VTE Device Contraindication: N/A - Device Ordered VTE Drug Contraindication: N/A - Med Ordered
[2023-10-28 17:22] LABS: Glucose, Whole Blood 136 mg/dL (60-115)
[2023-10-28] MEDS: Sodium Bicarbonate 8.4% 150 MEQ in Dextrose 5 % 850 ML 50 MEQ IV (18:15)
--- NOTE | 2023-10-28 20:00 | PM.PNNEP ---
Subjective Subjective Date of Service: 10/28/23 Interval history: 62-year-old gentleman with underlying HIV on HAART, hep C, COPD admitted on 10/02/2023 with acute hypoxic respiratory failure secondary to influenza with superimposed bacterial superinfection requiring intubation, pressor, and ventilatory support. Cultures are negative to date. Shock component has resolved. Now with abdominal distention secondary to ileus versus SBO, evaluated by general surgeon and deemed to underlying ileus. Extubated 10/13/2023. On 10/14/2023 with an aspiration event resulting in refractory hypoxia requiring emergent intubation and ventilatory support. Post tracheostomy and gastrostomy on 10/21/2023. Now with significant critical illness myopathy. No events overnight. Creatinine is improving Physical Exam Vital Signs: Vital Signs: Last Vital Signs Temp 98.4 F 10/28/23 16:00 Pulse 111 H 10/28/23 19:00 Resp 37 H 10/28/23 19:00 BP 123/76 10/28/23 19:00 Pulse Ox 100 10/28/23 19:00 O2 Del Method Mechanical Ventil ation 10/28/23 19:00 O2 Flow Rate 50 10/14/23 10:00 FiO2 35 10/28/23 19:30 BMI result Body Mass Index 19.8 Const: Other: Trach + Resp: Auscultation: diminished lung sounds Cardio: Rate: regular rate GI: Other: G tube + Skin: General skin exam: no rashes or lesions noted Neuro: General: moves all extremities Objective Data Labs 10/28/23 05:29 10/28/23 05:29 Labs: Laboratory Results - last 24 hr 10/27/23 10/28/23 10/28/23 23:49 05:29 05:40 WBC 8.0 RBC 3.49 L Hgb 8.2 L Hct 25.1 L MCV 71.9 L MCH 23.5 L MCHC 32.7 RDW 22.5 H Plt Count 303 MPV 10.9 Immature Gran % (Auto) 0.5 H Neut % (Auto) 79.1 H Lymph % (Auto) 8.6 L [place] % (Auto) 11.0 Eos % (Auto) 0.5 Baso % (Auto) 0.3 Lymph # (Auto) 0.7 L [place] # (Auto) 0.9 Eos # (Auto) 0.0 Baso # (Auto) 0.0 Abs Immat Gran (auto) 0.04 H Absolute Neuts (auto) 6.3 Absolute Nucleated RBC 0.020 H Nucleated RBC % (auto) 0.3 H VBG pH 7.29 L VBG pCO2 24 VBG pO2 45 VBG HCO3 12 L VBG O2 Saturation 71.0 VBG Base Excess -12.7 Sodium 146 H Potassium 3.9 Chloride 121 H Carbon Dioxide 12 L Anion Gap 17 BUN 100 H Creatinine 2.88 H Estim Creat Clear Calc 22.5 Estimated GFR 22 POC Glucose 148 H Random Glucose 147 H Calcium 9.5 Phosphorus 3.2 Magnesium 2.3 Albumin 3.4 L 10/28/23 10/28/23 10/28/23 05:50 11:38 17:12 WBC RBC Hgb Hct MCV MCH MCHC RDW Plt Count MPV Immature Gran % (Auto) Neut % (Auto) Lymph % (Auto) [place] % (Auto) Eos % (Auto) Baso % (Auto) Lymph # (Auto) [place] # (Auto) Eos # (Auto) Baso # (Auto) Abs Immat Gran (auto) Absolute Neuts (auto) Absolute Nucleated RBC Nucleated RBC % (auto) VBG pH VBG pCO2 VBG pO2 VBG HCO3 VBG O2 Saturation VBG Base Excess Sodium Potassium Chloride Carbon Dioxide Anion Gap BUN Creatinine Estim Creat Clear Calc Estimated GFR POC Glucose 139 H 167 H 136 H Random Glucose Calcium Phosphorus Magnesium Albumin Microbiology Microbiology Results: Microbiology 10/02/23 06:40 Sputum - Suctioned Direct Acid Fast Bacilli Smear - Final 10/02/23 03:11 Blood - Central Line Blood Culture - Final No growth after 5 days. 10/02/23 03:11 Blood - Central Line Blood Culture - Final Coag negative Staphylococcus 10/02/23 06:40 Sputum - Suctioned Gram Stain - Final 10/02/23 06:40 Sputum - Suctioned Sputum Culture - Final 10/02/23 06:40 Urine Catheterized - Miguel Catheter Urine Culture - Final No growth. Procedures Date of Service Date of Service: 10/28/23 Assessment & Plan Assessment and plan (1) AMBER (acute kidney injury): Status: Acute Plan Acute Kidney Injury due to tubular injury UO good; Needs bicarb replacement Diuretics as on a needed basis for now NO indication for HD; Keep K over 4 C/W rest of current supportive care Labs AM; Shall closely follow up Progress Note: Quality Stroke Does the patient have a stroke diagnosis?: No
[2023-10-29] VITALS (32 sets, daily range): BP systolic 86–144; BP diastolic 53–92; PULSE 73–127; RESP 17–42; TEMP 35–37.7; O2SAT 89–100; BMI 20.3
[2023-10-29 00:22] LABS: Glucose, Whole Blood 153 mg/dL (60-115)
[2023-10-29] MEDS: HYDROmorphone HCl 0.5 MG/0.5 ML SYRINGE IVPUSH (01:27)
[2023-10-29] MEDS: Heparin Sodium,Porcine 5,000 UNIT/ML VIAL 5000 UNIT SUBCUT ×2 (03:38→15:22)
[2023-10-29 04:46] LABS: VBG Base Excess -7.1 mmol/L; VBG HCO3 17 mmol/L (22-26); VBG pCO2 29 mmHg; VBG pH 7.37 (7.32-7.43); VBG pO2 44 mmHg
[2023-10-29 04:53] LABS: MANUAL DIFF FLAG NO
[2023-10-29 04:53] LABS: Venous Blood Gas Refer to POC result
[2023-10-29 04:54] LABS: Basophils Percent Auto 0.2 % (0-2); Eosinophils Absolute Auto 0.1 X10*3/uL (0.0-0.4); Eosinophils Percent Auto 2.1 % (0-4); Hemoglobin 7.2 g/dl (14.0-18.0); Imm Gran Abs Auto 0.05 X10*3/uL (0.00-0.03); Imm Gran Pct Auto 0.8 % (0.0-0.4); Lymphocytes Absolute Auto 0.7 X10*3/uL (1.2-4.9); Lymphocytes Percent Auto 11.8 % (20-40); Mean Corpuscular HGB Conc 32.7 g/dl (31.0-36.0); Mean Corpuscular Hemoglobin 23.7 pg (27.0-33.0); Mean Corpuscular Volume 72.4 fL (80.0-98.0); Mean Platelet Volume 11.1 fL (9.4-12.4); Monocytes Absolute Auto 0.8 X10*3/uL (0.1-1.2); Monocytes Percent Auto 12.9 % (2-11); Neutrophils Absolute Auto 4.6 x10*3/uL (2.0-8.3); Neutrophils Percent Auto 72.2 % (45-73); Platelet Count 335 X10*3/uL (160-400); Red Blood Count 3.04 X10*6/uL (4.60-5.80); Red Cell Distribution Width 22.1 % (11.0-16.0); White Blood Count 6.3 X10*3/uL (4.8-10.8)
[2023-10-29 05:08] LABS: Alanine Aminotransferase 21 U/L (0-40); Alkaline Phosphatase 120 U/L (39-117); Anion Gap 16 (12-20); Aspartate Amino Transferase 47 U/L (5-37); Bilirubin Total 0.3 mg/dL (0.0-1.0); Blood Urea Nitrogen 108 mg/dL (9-16); Carbon Dioxide 16 mmol/L (22-29); Chloride 119 mmol/L (96-108); Creatinine Clr Calc Pharmacy 20.1; Estimated Glomerular Filt Rate 19; Glucose Random 173 mg/dL (60-115); Magnesium 2.1 mg/dL (1.6-2.6); Phosphorus 2.7 mg/dL (2.7-4.5); Potassium 3.3 mmol/L (3.3-5.1); Sodium 148 mmol/L (135-145); Total Protein 7.1 g/dL (6.5-8.0)
[2023-10-29] MEDS: Potassium Chloride Packet 20 MEQ PACKET 40 MEQ PO (05:38)
[2023-10-29 06:13] LABS: Glucose, Whole Blood 157 mg/dL (60-115)
[2023-10-29] MEDS: Insulin Lispro 100 UNIT/ML 3 ML VIAL SUBCUT ×3 (06:16→17:14)
[2023-10-29] MEDS: 0.9 % Sodium Chloride Flush 10 ML SYRINGE IVFLUSH ×2 (06:59→15:23)
[2023-10-29] MEDS: Tobramycin Sulfate 80 MG/2 ML VIAL 300 MG INHALE ×2 (07:41→19:33)
[2023-10-29] MEDS: Nystatin Powder 15 GM BOTTLE 1 APPL TOPICAL ×2 (07:44→20:39)
[2023-10-29] MEDS: Chlorhexidine Gluc Oral Rinse 15 ML MOUTHWASH BUCCAL ×3 (07:44→20:37)
[2023-10-29] MEDS: Metoprolol Tartrate 50 MG TABLET PO ×3 (07:44→20:37)
[2023-10-29] MEDS: QUEtiapine Fumarate 25 MG TABLET PO ×2 (08:12→20:37)
[2023-10-29] MEDS: Albumin Human 25 % 100 ML IV ×3 (08:13→20:37)
[2023-10-29] MEDS: Furosemide 40 MG/4 ML VIAL IVPUSH (08:13)
--- NOTE | 2023-10-29 09:19 | MHC.CLN ---
F/U DISCUSSED AT ROUNDS WITH REVIEWED LABS PT RECEIVING TF NEPRO TO MAX GOAL RATE 45ML/HR WITH 240ML Q 6 HR TO PROVIDE 1944KCALS (30KCALS/KG), 87G PROTEIN (1.3G/KG), 1745ML TOTAL WATER FROM FORMULA AND FLUSHES (26ML/KG) PT WITH NEW DTI BUTTOCKS WITH INCREASED NUTRITION RISK TF WILL PROMOTE WOUND HEALING CONTINUE TO MONITOR TOLERANCE, RESIDUALS, AND LYTES
--- NOTE | 2023-10-29 09:23 | P.PNCC_ITS ---
Subjective Subjective Date of Service: 10/29/23 Interval History: 62-year-old gentleman with underlying HIV on HAART, hep C, COPD admitted on 10/02/2023 with acute hypoxic respiratory failure secondary to influenza with superimposed bacterial superinfection requiring intubation, pressor, and ventilatory support. Cultures are negative to date. Shock component has resolved. Now with abdominal distention secondary to ileus versus SBO, evaluated by general surgeon and deemed to underlying ileus. Extubated 10/13/2023. On 10/14/2023 with an aspiration event resulting in refractory hypoxia requiring emergent intubation and ventilatory support. Post tracheostomy and gastrostomy on 10/21/2023. Now with significant critical illness myopathy. No events overnight. Waxing and waning renal function. Critical Care Time (minutes): 60 Physical Exam 2 Vital Signs: Vital Signs: Last Vital Signs Temp 98.7 F 10/29/23 08:00 Pulse 100 10/29/23 09:00 Resp 37 H 10/29/23 09:00 BP 103/64 10/29/23 09:00 Pulse Ox 91 L 10/29/23 09:00 O2 Del Method Mechanical Ventil ation 10/29/23 09:00 O2 Flow Rate 50 10/14/23 10:00 FiO2 21 10/29/23 09:00 BMI result Body Mass Index 20.3 Const: General: no acute distress and alert HEENT: Head: Yes atraumatic Eyes: Sclerae: sclerae normal EOM: EOMs intact bilaterally Neck: Neck: Yes supple and Yes tracheostomy present Lymphatic: no lymphadenopathy noted Resp: Auscultation: clear to auscultation bilaterally Cardio: Rate: tachycardic Rhythm: regular rhythm Heart sounds: no gallops, no murmurs and no rubs GI: Inspection: Yes G-tube present Palpation (GI): Soft to palpation and nontender Auscultation: normal bowel sounds Skin: General skin exam: other ( warm) Extrem: General: No clubbing, No cyanosis and No edema Objective Data Labs 10/29/23 04:38 10/29/23 04:38 Labs: Laboratory Results - last 24 hr 10/28/23 10/28/23 10/28/23 11:38 17:12 23:59 WBC RBC Hgb Hct MCV MCH MCHC RDW Plt Count MPV Immature Gran % (Auto) Neut % (Auto) Lymph % (Auto) [place] % (Auto) Eos % (Auto) Baso % (Auto) Lymph # (Auto) [place] # (Auto) Eos # (Auto) Baso # (Auto) Abs Immat Gran (auto) Absolute Neuts (auto) Absolute Nucleated RBC Nucleated RBC % (auto) VBG pH VBG pCO2 VBG pO2 VBG HCO3 VBG O2 Saturation VBG Base Excess Sodium Potassium Chloride Carbon Dioxide Anion Gap BUN Creatinine Estim Creat Clear Calc Estimated GFR POC Glucose 167 H 136 H 153 H Random Glucose Calcium Phosphorus Magnesium Total Bilirubin AST ALT Alkaline Phosphatase Total Protein Albumin 10/29/23 10/29/23 10/29/23 04:37 04:38 06:08 WBC 6.3 RBC 3.04 L Hgb 7.2 L Hct 22.0 L MCV 72.4 L MCH 23.7 L MCHC 32.7 RDW 22.1 H Plt Count 335 MPV 11.1 Immature Gran % (Auto) 0.8 H Neut % (Auto) 72.2 Lymph % (Auto) 11.8 L [place] % (Auto) 12.9 H Eos % (Auto) 2.1 Baso % (Auto) 0.2 Lymph # (Auto) 0.7 L [place] # (Auto) 0.8 Eos # (Auto) 0.1 Baso # (Auto) 0.0 Abs Immat Gran (auto) 0.05 H Absolute Neuts (auto) 4.6 Absolute Nucleated RBC 0.000 Nucleated RBC % (auto) 0.0 VBG pH 7.37 VBG pCO2 29 VBG pO2 44 VBG HCO3 17 L VBG O2 Saturation 71.0 VBG Base Excess -7.1 Sodium 148 H Potassium 3.3 Chloride 119 H Carbon Dioxide 16 L Anion Gap 16 BUN 108 H Creatinine 3.31 H Estim Creat Clear Calc 20.1 Estimated GFR 19 POC Glucose 157 H Random Glucose 173 H Calcium 9.0 Phosphorus 2.7 Magnesium 2.1 Total Bilirubin 0.3 AST 47 H ALT 21 Alkaline Phosphatase 120 H Total Protein 7.1 Albumin 3.0 L Microbiology Microbiology Results: Microbiology 10/02/23 06:40 Sputum - Suctioned Direct Acid Fast Bacilli Smear - Final 10/02/23 03:11 Blood - Central Line Blood Culture - Final No growth after 5 days. 10/02/23 03:11 Blood - Central Line Blood Culture - Final Coag negative Staphylococcus 10/02/23 06:40 Sputum - Suctioned Gram Stain - Final 10/02/23 06:40 Sputum - Suctioned Sputum Culture - Final 10/02/23 06:40 Urine Catheterized - Miguel Catheter Urine Culture - Final No growth. Progress Note: A&P Assessment and plan (1) Status post tracheostomy: Status: Acute (2) Critical illness myopathy: Status: Acute (3) AMBER (acute kidney injury): Status: Acute (4) Pneumonia: Status: Acute (5) HIV (human immunodeficiency virus infection): Status: Acute (6) Acute hypoxic respiratory failure: Status: Acute (7) Hepatitis C: Status: Acute (8) COPD (chronic obstructive pulmonary disease): Status: Acute Plan Assessment: 62-year-old gentleman with underlying HIV on HAART, hep C admitted with acute hypoxic respiratory failure secondary to bacterial superinfection of underlying influenza now requiring ventilatory support Plan: Neuro: No acute issues. Cardiac: Distributive shock, resolved. Pulmonary: Acute hypoxic respiratory failure secondary to bacterial superinfection of underlying influenza, improved and extubated on 10/13/2023. However with development of recurrent aspirations requiring re-intubation on 10/14/2023. Now status post tracheostomy/gastrostomy on 10/21/2023. Improving tolerance of pressure support trials. Renal: Acute kidney injury. Waxing and waning renal function. Non oliguric. Continue to monitor renal indices and urine output. Nephrology service care appreciated. Endo: No acute issues. GI: No acute issues. ID: Fluconazole for thrush. Heme/Onc: No acute issues. Psych: No acute issues. Miscellaneous: Critical illness myopathy, continue with PT. Prophylaxis: Heparin Diet: Tube feeds Critical care time spent: 60 minutes Quality Stroke Does the patient have a stroke diagnosis?: No VTE Prior VTE?: No VTE Risk Level:: Medical - moderate - high VTE Device Contraindication: N/A - Device Ordered VTE Drug Contraindication: N/A - Med Ordered
--- NOTE | 2023-10-29 09:42 | MHC.CM.PN ---
Pt with uptrending BUN and creatinine today: continues on IVP Lasix for diuresis. Clinical updates sent to [facility]: Pt will hold in ICU over the weekend to allow for renal recovery as [facility] states improving renal fx is a necessary for acceptance. MD aware of criteria. CM to follow on Wednesday for clinical improvement.
[2023-10-29] MEDS: Fluconazole in NaCl,Iso-Osm 100 MG in Container,Empty 0 ML 50 MG IV (11:29)
[2023-10-29 11:40] LABS: Glucose, Whole Blood 184 mg/dL (60-115)
--- NOTE | 2023-10-29 13:00 | P.PNNP_ITS ---
Subjective Subjective Date of Service: 10/29/23 Interval history: 62-year-old gentleman with underlying HIV on HAART, hep C, COPD admitted on 10/02/2023 with acute hypoxic respiratory failure secondary to influenza with superimposed bacterial superinfection requiring intubation, pressor, and ventilatory support. Cultures are negative to date. Shock component has resolved. Now with abdominal distention secondary to ileus versus SBO, evaluated by general surgeon and deemed to underlying ileus. Extubated 10/13/2023. On 10/14/2023 with an aspiration event resulting in refractory hypoxia requiring emergent intubation and ventilatory support. Post tracheostomy and gastrostomy on 10/21/2023. Now with significant critical illness myopathy. No events overnight. Physical Exam 2 Vital Signs: Vital Signs: Last Vital Signs Temp 98.0 F 10/29/23 12:00 Pulse 115 H 10/29/23 12:00 Resp 42 H 10/29/23 12:00 BP 128/79 10/29/23 12:00 Pulse Ox 89 L 10/29/23 12:00 O2 Del Method Mechanical Ventil ation 10/29/23 12:00 O2 Flow Rate 50 10/14/23 10:00 FiO2 21 10/29/23 12:00 BMI result Body Mass Index 20.3 Const: Other: Trach + Resp: Auscultation: diminished lung sounds Cardio: Rate: regular rate GI: Other: G tube + Palpation (GI): Soft to palpation Skin: General skin exam: no rashes or lesions noted Objective Data Labs 10/29/23 04:38 10/29/23 04:38 Labs: Laboratory Results - last 24 hr 10/28/23 10/28/23 10/29/23 17:12 23:59 04:37 WBC RBC Hgb Hct MCV MCH MCHC RDW Plt Count MPV Immature Gran % (Auto) Neut % (Auto) Lymph % (Auto) [place] % (Auto) Eos % (Auto) Baso % (Auto) Lymph # (Auto) [place] # (Auto) Eos # (Auto) Baso # (Auto) Abs Immat Gran (auto) Absolute Neuts (auto) Absolute Nucleated RBC Nucleated RBC % (auto) VBG pH 7.37 VBG pCO2 29 VBG pO2 44 VBG HCO3 17 L VBG O2 Saturation 71.0 VBG Base Excess -7.1 Sodium Potassium Chloride Carbon Dioxide Anion Gap BUN Creatinine Estim Creat Clear Calc Estimated GFR POC Glucose 136 H 153 H Random Glucose Calcium Phosphorus Magnesium Total Bilirubin AST ALT Alkaline Phosphatase Total Protein Albumin 10/29/23 10/29/23 10/29/23 04:38 06:08 11:37 WBC 6.3 RBC 3.04 L Hgb 7.2 L Hct 22.0 L MCV 72.4 L MCH 23.7 L MCHC 32.7 RDW 22.1 H Plt Count 335 MPV 11.1 Immature Gran % (Auto) 0.8 H Neut % (Auto) 72.2 Lymph % (Auto) 11.8 L [place] % (Auto) 12.9 H Eos % (Auto) 2.1 Baso % (Auto) 0.2 Lymph # (Auto) 0.7 L [place] # (Auto) 0.8 Eos # (Auto) 0.1 Baso # (Auto) 0.0 Abs Immat Gran (auto) 0.05 H Absolute Neuts (auto) 4.6 Absolute Nucleated RBC 0.000 Nucleated RBC % (auto) 0.0 VBG pH VBG pCO2 VBG pO2 VBG HCO3 VBG O2 Saturation VBG Base Excess Sodium 148 H Potassium 3.3 Chloride 119 H Carbon Dioxide 16 L Anion Gap 16 BUN 108 H Creatinine 3.31 H Estim Creat Clear Calc 20.1 Estimated GFR 19 POC Glucose 157 H 184 H Random Glucose 173 H Calcium 9.0 Phosphorus 2.7 Magnesium 2.1 Total Bilirubin 0.3 AST 47 H ALT 21 Alkaline Phosphatase 120 H Total Protein 7.1 Albumin 3.0 L Microbiology Microbiology Results: Microbiology 10/02/23 06:40 Sputum - Suctioned Direct Acid Fast Bacilli Smear - Final 10/02/23 03:11 Blood - Central Line Blood Culture - Final No growth after 5 days. 10/02/23 03:11 Blood - Central Line Blood Culture - Final Coag negative Staphylococcus 10/02/23 06:40 Sputum - Suctioned Gram Stain - Final 10/02/23 06:40 Sputum - Suctioned Sputum Culture - Final 10/02/23 06:40 Urine Catheterized - Miguel Catheter Urine Culture - Final No growth. Procedures Date of Service Date of Service: 10/29/23 Assessment & Plan Assessment and plan (1) AMBER (acute kidney injury): Status: Acute Plan Acute Kidney Injury due to tubular injury UO good; Needs bicarb replacement Diuretics as on a needed basis for now NO indication for HD; Keep K over 4 C/W rest of current supportive care Labs AM; Shall closely follow up Progress Note: Quality Stroke Does the patient have a stroke diagnosis?: No
[2023-10-29] MEDS: Sodium Bicarbonate 8.4% 150 MEQ in Dextrose 5 % 850 ML 50 MEQ IV (14:35)
[2023-10-29 17:15] LABS: Glucose, Whole Blood 151 mg/dL (60-115)
[2023-10-29 18:00] LABS: Glucose, Whole Blood 169 mg/dL (60-115)
[2023-10-30] VITALS (37 sets, daily range): BP systolic 88–150; BP diastolic 57–96; PULSE 97–131; RESP 15–41; TEMP 34.2–37.7; O2SAT 92–99; BMI 20.3
[2023-10-30] MEDS: Insulin Lispro 100 UNIT/ML 3 ML VIAL SUBCUT ×2 (00:17→12:33)
[2023-10-30 00:18] LABS: Glucose, Whole Blood 156 mg/dL (60-115)
[2023-10-30] MEDS: 0.9 % Sodium Chloride Flush 10 ML SYRINGE IVFLUSH ×3 (00:19→16:40)
[2023-10-30] MEDS: HYDROmorphone HCl 0.5 MG/0.5 ML SYRINGE IVPUSH ×3 (02:01→19:32)
[2023-10-30] MEDS: Albumin Human 25 % 100 ML IV (02:01)
[2023-10-30 05:14] LABS: Glucose, Whole Blood 147 mg/dL (60-115)
[2023-10-30 05:22] LABS: VBG Base Excess -1.1 mmol/L; VBG HCO3 22 mmol/L (22-26); VBG pCO2 31 mmHg; VBG pH 7.46 (7.32-7.43); VBG pO2 40 mmHg
[2023-10-30 05:40] LABS: Venous Blood Gas Refer to POC result
[2023-10-30 05:45] LABS: MANUAL DIFF FLAG NO
[2023-10-30 05:47] LABS: Basophils Percent Auto 0.2 % (0-2); Eosinophils Absolute Auto 0.1 X10*3/uL (0.0-0.4); Eosinophils Percent Auto 1.7 % (0-4); Imm Gran Abs Auto 0.04 X10*3/uL (0.00-0.03); Imm Gran Pct Auto 0.8 % (0.0-0.4); Lymphocytes Absolute Auto 0.8 X10*3/uL (1.2-4.9); Lymphocytes Percent Auto 14.6 % (20-40); Mean Corpuscular HGB Conc 32.5 g/dl (31.0-36.0); Mean Corpuscular Hemoglobin 23.3 pg (27.0-33.0); Mean Corpuscular Volume 71.7 fL (80.0-98.0); Mean Platelet Volume 10.8 fL (9.4-12.4); Monocytes Absolute Auto 0.7 X10*3/uL (0.1-1.2); Monocytes Percent Auto 12.3 % (2-11); Neutrophils Absolute Auto 3.7 x10*3/uL (2.0-8.3); Neutrophils Percent Auto 70.4 % (45-73); Platelet Count 337 X10*3/uL (160-400); Red Blood Count 2.79 X10*6/uL (4.60-5.80); Red Cell Distribution Width 21.5 % (11.0-16.0); White Blood Count 5.3 X10*3/uL (4.8-10.8)
[2023-10-30 05:51] LABS: Hemoglobin 6.5 g/dl (14.0-18.0)
[2023-10-30 06:09] LABS: Albumin Level 3.7 g/dL (3.5-5.0); Anion Gap 18 (12-20); Blood Urea Nitrogen 112 mg/dL (9-16); Calcium 9.3 mg/dL (8.4-10.2); Carbon Dioxide 21 mmol/L (22-29); Chloride 113 mmol/L (96-108); Creatinine Clr Calc Pharmacy 19.9; Estimated Glomerular Filt Rate 19; Glucose Random 154 mg/dL (60-115); Magnesium 2.1 mg/dL (1.6-2.6); Phosphorus 2.8 mg/dL (2.7-4.5); Potassium 3.3 mmol/L (3.3-5.1); Sodium 149 mmol/L (135-145)
[2023-10-30] MEDS: Potassium Chloride Packet 20 MEQ PACKET 40 MEQ PO (06:28)
[2023-10-30] MEDS: Tobramycin Sulfate 80 MG/2 ML VIAL 300 MG INHALE ×2 (07:37→20:21)
[2023-10-30] MEDS: QUEtiapine Fumarate 25 MG TABLET PO ×2 (08:22→19:32)
[2023-10-30] MEDS: Chlorhexidine Gluc Oral Rinse 15 ML MOUTHWASH BUCCAL ×3 (08:22→19:32)
[2023-10-30] MEDS: Metoprolol Tartrate 50 MG TABLET PO ×3 (08:22→19:32)
[2023-10-30] MEDS: Nystatin Powder 15 GM BOTTLE 1 APPL TOPICAL ×2 (08:44→19:33)
[2023-10-30] MEDS: Furosemide 40 MG/4 ML VIAL IVPUSH ×2 (09:21→17:37)
[2023-10-30] MEDS: Sodium Bicarbonate 8.4% 150 MEQ in Dextrose 5 % 850 ML 50 MEQ IV (10:19)
--- NOTE | 2023-10-30 11:26 | P.PNCC_ITS ---
Subjective Subjective Date of Service: 10/30/23 Interval History: 62-year-old gentleman with underlying HIV on HAART, hep C, COPD admitted on 10/02/2023 with acute hypoxic respiratory failure secondary to influenza with superimposed bacterial superinfection requiring intubation, pressor, and ventilatory support. Cultures are negative to date. Shock component has resolved. Now with abdominal distention secondary to ileus versus SBO, evaluated by general surgeon and deemed to underlying ileus. Extubated 10/13/2023. On 10/14/2023 with an aspiration event resulting in refractory hypoxia requiring emergent intubation and ventilatory support. Post tracheostomy and gastrostomy on 10/21/2023. Now with significant critical illness myopathy. No events overnight. Critical Care Time (minutes): 60 Physical Exam 2 Vital Signs: Vital Signs: Last Vital Signs Temp 99.2 F 10/30/23 09:41 Pulse 109 H 10/30/23 10:00 Resp 28 H 10/30/23 10:00 BP 122/80 10/30/23 10:00 Pulse Ox 97 10/30/23 10:00 O2 Del Method Mechanical Ventil ation 10/30/23 10:00 O2 Flow Rate 50 10/14/23 10:00 FiO2 35 10/30/23 10:00 BMI result Body Mass Index 20.3 Const: General: no acute distress, alert and awake Eyes: Sclerae: sclerae normal EOM: EOMs intact bilaterally Neck: Neck: Yes no lymphadenopathy, Yes trachea midline and Yes supple Resp: Effort & Inspection: normal respiratory effort and no respiratory distress Auscultation: crackles (Bilateral) Cardio: Rate: tachycardic Rhythm: regular rhythm Heart sounds: no gallops, no murmurs and no rubs GI: Palpation (GI): Soft to palpation and Other GI palpation findings present ( Nontender) Auscultation: normal bowel sounds Extrem: General: No clubbing, No cyanosis and Yes edema (1+ bilateral) Objective Data Labs 10/30/23 05:19 10/30/23 05:19 Labs: Laboratory Results - last 24 hr 10/29/23 10/29/23 10/29/23 11:37 17:12 17:56 WBC RBC Hgb Hct MCV MCH MCHC RDW Plt Count MPV Immature Gran % (Auto) Neut % (Auto) Lymph % (Auto) [place] % (Auto) Eos % (Auto) Baso % (Auto) Lymph # (Auto) [place] # (Auto) Eos # (Auto) Baso # (Auto) Abs Immat Gran (auto) Absolute Neuts (auto) Absolute Nucleated RBC Nucleated RBC % (auto) VBG pH VBG pCO2 VBG pO2 VBG HCO3 VBG O2 Saturation VBG Base Excess Sodium Potassium Chloride Carbon Dioxide Anion Gap BUN Creatinine Estim Creat Clear Calc Estimated GFR POC Glucose 184 H 151 H 169 H Random Glucose Calcium Phosphorus Magnesium Albumin Blood Type Antibody Screen Antibody Identification Crossmatch ([facility]) 10/30/23 10/30/23 10/30/23 00:14 05:00 05:15 WBC RBC Hgb Hct MCV MCH MCHC RDW Plt Count MPV Immature Gran % (Auto) Neut % (Auto) Lymph % (Auto) [place] % (Auto) Eos % (Auto) Baso % (Auto) Lymph # (Auto) [place] # (Auto) Eos # (Auto) Baso # (Auto) Abs Immat Gran (auto) Absolute Neuts (auto) Absolute Nucleated RBC Nucleated RBC % (auto) VBG pH 7.46 H VBG pCO2 31 VBG pO2 40 VBG HCO3 22 VBG O2 Saturation 69.0 VBG Base Excess -1.1 Sodium Potassium Chloride Carbon Dioxide Anion Gap BUN Creatinine Estim Creat Clear Calc Estimated GFR POC Glucose 156 H 147 H Random Glucose Calcium Phosphorus Magnesium Albumin Blood Type Antibody Screen Antibody Identification Crossmatch ([facility]) 10/30/23 10/30/23 05:19 06:44 WBC 5.3 RBC 2.79 L Hgb 6.5 L* Hct 20.0 L* MCV 71.7 L MCH 23.3 L MCHC 32.5 RDW 21.5 H Plt Count 337 MPV 10.8 Immature Gran % (Auto) 0.8 H Neut % (Auto) 70.4 Lymph % (Auto) 14.6 L [place] % (Auto) 12.3 H Eos % (Auto) 1.7 Baso % (Auto) 0.2 Lymph # (Auto) 0.8 L [place] # (Auto) 0.7 Eos # (Auto) 0.1 Baso # (Auto) 0.0 Abs Immat Gran (auto) 0.04 H Absolute Neuts (auto) 3.7 Absolute Nucleated RBC 0.000 Nucleated RBC % (auto) 0.0 VBG pH VBG pCO2 VBG pO2 VBG HCO3 VBG O2 Saturation VBG Base Excess Sodium 149 H Potassium 3.3 Chloride 113 H Carbon Dioxide 21 L Anion Gap 18 BUN 112 H Creatinine 3.34 H Estim Creat Clear Calc 19.9 Estimated GFR 19 POC Glucose Random Glucose 154 H Calcium 9.3 Phosphorus 2.8 Magnesium 2.1 Albumin 3.7 Blood Type O Positive Antibody Screen POSITIVE Antibody Identification Anti-M Crossmatch ([facility]) See Detail Microbiology Microbiology Results: Microbiology 10/02/23 06:40 Sputum - Suctioned Direct Acid Fast Bacilli Smear - Final 10/02/23 03:11 Blood - Central Line Blood Culture - Final No growth after 5 days. 10/02/23 03:11 Blood - Central Line Blood Culture - Final Coag negative Staphylococcus 10/02/23 06:40 Sputum - Suctioned Gram Stain - Final 10/02/23 06:40 Sputum - Suctioned Sputum Culture - Final 10/02/23 06:40 Urine Catheterized - Miguel Catheter Urine Culture - Final No growth. Progress Note: A&P Assessment and plan (1) Status post tracheostomy: Status: Acute (2) Critical illness myopathy: Status: Acute (3) AMBER (acute kidney injury): Status: Acute (4) Pneumonia: Status: Acute (5) HIV (human immunodeficiency virus infection): Status: Acute (6) Acute hypoxic respiratory failure: Status: Acute (7) Hepatitis C: Status: Acute (8) COPD (chronic obstructive pulmonary disease): Status: Acute Plan Assessment: 62-year-old gentleman with underlying HIV on HAART, hep C admitted with acute hypoxic respiratory failure secondary to bacterial superinfection of underlying influenza now requiring ventilatory support Plan: Neuro: No acute issues. Cardiac: Distributive shock, resolved. Pulmonary: Acute hypoxic respiratory failure secondary to bacterial superinfection of underlying influenza, improved and extubated on 10/13/2023. However with development of recurrent aspirations requiring re-intubation on 10/14/2023. Now status post tracheostomy/gastrostomy on 10/21/2023. Improving tolerance of pressure support trials, now up to 12 hours. Renal: Acute kidney injury. Waxing and waning renal function. Non oliguric. Continue to monitor renal indices and urine output. Nephrology service care appreciated. Endo: No acute issues. GI: No acute issues. ID: Fluconazole for thrush. Heme/Onc: No acute issues. Psych: No acute issues. Miscellaneous: Critical illness myopathy, continue with PT. Prophylaxis: Heparin Diet: Tube feeds Critical care time spent: 60 minutes Quality Stroke Does the patient have a stroke diagnosis?: No VTE Prior VTE?: No VTE Risk Level:: Medical - moderate - high VTE Device Contraindication: N/A - Device Ordered VTE Drug Contraindication: N/A - Med Ordered
[2023-10-30] MEDS: Fluconazole in NaCl,Iso-Osm 100 MG in Container,Empty 0 ML 50 MG IV (12:16)
[2023-10-30 12:32] LABS: Glucose, Whole Blood 168 mg/dL (60-115)
[2023-10-30] MEDS: Heparin Sodium,Porcine 5,000 UNIT/ML VIAL 5000 UNIT SUBCUT (16:14)
[2023-10-30 17:34] LABS: Glucose, Whole Blood 145 mg/dL (60-115)
[2023-10-30 22:37] LABS: Glucose, Whole Blood 148 mg/dL (60-115)
[2023-10-31] VITALS (31 sets, daily range): BP systolic 84–146; BP diastolic 50–98; PULSE 96–124; RESP 20–30; TEMP 34.2–38; O2SAT 91–100; BMI 20.5
[2023-10-31] MEDS: HYDROmorphone HCl 0.5 MG/0.5 ML SYRINGE IVPUSH ×3 (02:31→18:41)
[2023-10-31] MEDS: Sodium Bicarbonate 8.4% 150 MEQ in Dextrose 5 % 850 ML 50 MEQ IV (02:32)
[2023-10-31] MEDS: Heparin Sodium,Porcine 5,000 UNIT/ML VIAL 5000 UNIT SUBCUT ×2 (05:11→17:05)
[2023-10-31 05:25] LABS: MANUAL DIFF FLAG NO; VBG Base Excess 4.8 mmol/L; VBG HCO3 27 mmol/L (22-26); VBG pCO2 33 mmHg; VBG pH 7.52 (7.32-7.43); VBG pO2 43 mmHg
[2023-10-31 05:29] LABS: Basophils Percent Auto 0.3 % (0-2); Eosinophils Absolute Auto 0.2 X10*3/uL (0.0-0.4); Eosinophils Percent Auto 2.8 % (0-4); Hematocrit 22.5 % (42.0-52.0); Hemoglobin 7.5 g/dl (14.0-18.0); Imm Gran Abs Auto 0.07 X10*3/uL (0.00-0.03); Lymphocytes Percent Auto 14.3 % (20-40); Mean Corpuscular HGB Conc 33.3 g/dl (31.0-36.0); Mean Corpuscular Hemoglobin 24.6 pg (27.0-33.0); Mean Corpuscular Volume 73.8 fL (80.0-98.0); Mean Platelet Volume 10.8 fL (9.4-12.4); Monocytes Absolute Auto 0.8 X10*3/uL (0.1-1.2); Monocytes Percent Auto 11.4 % (2-11); Neutrophils Absolute Auto 4.8 x10*3/uL (2.0-8.3); Neutrophils Percent Auto 70.2 % (45-73); Platelet Count 325 X10*3/uL (160-400); Red Blood Count 3.05 X10*6/uL (4.60-5.80); Red Cell Distribution Width 22.5 % (11.0-16.0); White Blood Count 6.8 X10*3/uL (4.8-10.8)
[2023-10-31 05:52] LABS: Albumin Level 3.1 g/dL (3.5-5.0); Anion Gap 17 (12-20); Blood Urea Nitrogen 118 mg/dL (9-16); Carbon Dioxide 24 mmol/L (22-29); Chloride 109 mmol/L (96-108); Creatinine Clr Calc Pharmacy 16.2; Estimated Glomerular Filt Rate 15; Glucose Random 159 mg/dL (60-115); Potassium 3.6 mmol/L (3.3-5.1); Sodium 146 mmol/L (135-145)
[2023-10-31 06:01] LABS: Venous Blood Gas Refer to POC result
[2023-10-31] MEDS: Insulin Lispro 100 UNIT/ML 3 ML VIAL SUBCUT ×2 (06:11→12:28)
[2023-10-31] MEDS: Potassium Chloride/H20 40 MEQ/100 ML PIGGYBACK 50 MEQ IV (06:11)
[2023-10-31] MEDS: Tobramycin Sulfate 80 MG/2 ML VIAL 300 MG INHALE ×2 (07:45→19:55)
[2023-10-31] MEDS: Chlorhexidine Gluc Oral Rinse 15 ML MOUTHWASH BUCCAL ×3 (08:36→20:00)
[2023-10-31] MEDS: Metoprolol Tartrate 50 MG TABLET PO ×3 (08:36→20:01)
[2023-10-31] MEDS: QUEtiapine Fumarate 25 MG TABLET PO ×2 (08:36→20:00)
[2023-10-31] MEDS: 0.9 % Sodium Chloride Flush 10 ML SYRINGE IVFLUSH ×2 (08:37→17:04)
[2023-10-31] MEDS: Nystatin Powder 15 GM BOTTLE 1 APPL TOPICAL ×2 (09:02→21:54)
--- NOTE | 2023-10-31 10:04 | P.PNCC_ITS ---
Subjective Subjective Date of Service: 10/31/23 Interval History: 62-year-old gentleman with underlying HIV on HAART, hep C, COPD admitted on 10/02/2023 with acute hypoxic respiratory failure secondary to influenza with superimposed bacterial superinfection requiring intubation, pressor, and ventilatory support. Cultures are negative to date. Shock component has resolved. Now with abdominal distention secondary to ileus versus SBO, evaluated by general surgeon and deemed to underlying ileus. Extubated 10/13/2023. On 10/14/2023 with an aspiration event resulting in refractory hypoxia requiring emergent intubation and ventilatory support. Post tracheostomy and gastrostomy on 10/21/2023. Now with significant critical illness myopathy. No events overnight. Rendal indices are rising. Critical Care Time (minutes): 60 Physical Exam 2 Vital Signs: Vital Signs: Last Vital Signs Temp 98.5 F 10/31/23 08:00 Pulse 106 H 10/31/23 10:00 Resp 25 H 10/31/23 10:00 BP 110/72 10/31/23 10:00 Pulse Ox 91 L 10/31/23 10:00 O2 Del Method Mechanical Ventil ation 10/31/23 10:00 O2 Flow Rate 50 10/14/23 10:00 FiO2 30 10/31/23 10:00 BMI result Body Mass Index 20.5 Const: General: no acute distress, alert and awake Eyes: Sclerae: sclerae normal EOM: EOMs intact bilaterally Neck: Neck: Yes no lymphadenopathy and Yes tracheostomy present (On vent) Resp: Auscultation: crackles (Mild bilateral) Cardio: Rate: regular rate Rhythm: regular rhythm Heart sounds: no gallops, no murmurs and no rubs GI: Inspection: Yes G-tube present Palpation (GI): Soft to palpation and Other GI palpation findings present ( Nontender) Auscultation: normal bowel sounds Extrem: General: Yes no pedal edema, No clubbing and No cyanosis Objective Data Labs 10/31/23 05:18 10/31/23 05:18 Labs: Laboratory Results - last 24 hr 10/30/23 10/30/23 10/30/23 06:44 12:30 17:28 WBC RBC Hgb Hct MCV MCH MCHC RDW Plt Count MPV Immature Gran % (Auto) Neut % (Auto) Lymph % (Auto) [place] % (Auto) Eos % (Auto) Baso % (Auto) Lymph # (Auto) [place] # (Auto) Eos # (Auto) Baso # (Auto) Abs Immat Gran (auto) Absolute Neuts (auto) Absolute Nucleated RBC Nucleated RBC % (auto) VBG pH VBG pCO2 VBG pO2 VBG HCO3 VBG O2 Saturation VBG Base Excess Sodium Potassium Chloride Carbon Dioxide Anion Gap BUN Creatinine Estim Creat Clear Calc Estimated GFR POC Glucose 168 H 145 H Random Glucose Calcium Phosphorus Magnesium Albumin Blood Type O Positive Antibody Screen POSITIVE Antibody Identification Anti-M JENNIFER, Polyspecific NEGATIVE Positive JENNIFER Work-up TNP Crossmatch ([facility]) See Detail 10/30/23 10/31/23 22:33 05:18 WBC 6.8 RBC 3.05 L Hgb 7.5 L Hct 22.5 L MCV 73.8 L MCH 24.6 L MCHC 33.3 RDW 22.5 H Plt Count 325 MPV 10.8 Immature Gran % (Auto) 1.0 H Neut % (Auto) 70.2 Lymph % (Auto) 14.3 L [place] % (Auto) 11.4 H Eos % (Auto) 2.8 Baso % (Auto) 0.3 Lymph # (Auto) 1.0 L [place] # (Auto) 0.8 Eos # (Auto) 0.2 Baso # (Auto) 0.0 Abs Immat Gran (auto) 0.07 H Absolute Neuts (auto) 4.8 Absolute Nucleated RBC 0.000 Nucleated RBC % (auto) 0.0 VBG pH 7.52 H VBG pCO2 33 VBG pO2 43 VBG HCO3 27 H VBG O2 Saturation 76.0 VBG Base Excess 4.8 Sodium 146 H Potassium 3.6 Chloride 109 H Carbon Dioxide 24 Anion Gap 17 BUN 118 H Creatinine 4.15 H* Estim Creat Clear Calc 16.2 Estimated GFR 15 POC Glucose 148 H Random Glucose 159 H Calcium 9.0 Phosphorus 3.0 Magnesium 2.0 Albumin 3.1 L Blood Type Antibody Screen Antibody Identification JENNIFER, Polyspecific Positive JENNIFER Work-up Crossmatch ([facility]) Microbiology Microbiology Results: Microbiology 10/02/23 06:40 Sputum - Suctioned Direct Acid Fast Bacilli Smear - Final 10/02/23 03:11 Blood - Central Line Blood Culture - Final No growth after 5 days. 10/02/23 03:11 Blood - Central Line Blood Culture - Final Coag negative Staphylococcus 10/02/23 06:40 Sputum - Suctioned Gram Stain - Final 10/02/23 06:40 Sputum - Suctioned Sputum Culture - Final 10/02/23 06:40 Urine Catheterized - Miguel Catheter Urine Culture - Final No growth. Progress Note: A&P Assessment and plan (1) Status post tracheostomy: Status: Acute (2) Critical illness myopathy: Status: Acute (3) AMBER (acute kidney injury): Status: Acute (4) HIV (human immunodeficiency virus infection): Status: Acute (5) Acute hypoxic respiratory failure: Status: Acute (6) Hepatitis C: Status: Acute (7) COPD (chronic obstructive pulmonary disease): Status: Acute Plan Assessment: 62-year-old gentleman with underlying HIV on HAART, hep C admitted with acute hypoxic respiratory failure secondary to bacterial superinfection of underlying influenza now requiring ventilatory support Plan: Neuro: No acute issues. Cardiac: Distributive shock, resolved. Pulmonary: Acute hypoxic respiratory failure secondary to bacterial superinfection of underlying influenza, improved and extubated on 10/13/2023. However with development of recurrent aspirations requiring re-intubation on 10/14/2023. Now status post tracheostomy/gastrostomy on 10/21/2023. Improving tolerance of pressure support trials, now up to 12 hours. Renal: Acute kidney injury. Non oliguric. Continue to monitor renal indices and urine output. Nephrology service care appreciated. Endo: No acute issues. GI: No acute issues. ID: No acute issues. Heme/Onc: No acute issues. Psych: No acute issues. Miscellaneous: Critical illness myopathy, continue with PT. Prophylaxis: Heparin Diet: Tube feeds Critical care time spent: 60 minutes Quality Stroke Does the patient have a stroke diagnosis?: No VTE Prior VTE?: No VTE Risk Level:: Medical - moderate - high VTE Device Contraindication: N/A - Device Ordered VTE Drug Contraindication: N/A - Med Ordered
[2023-10-31 11:43] LABS: Glucose, Whole Blood 172 mg/dL (60-115)
[2023-10-31 18:12] LABS: Glucose, Whole Blood 133 mg/dL (60-115)
[2023-11-01] VITALS (34 sets, daily range): BP systolic 89–155; BP diastolic 54–104; PULSE 82–118; RESP 18–30; TEMP 34.9–37.4; O2SAT 89–100; BMI 21.1
[2023-11-01 00:01] LABS: Glucose, Whole Blood 137 mg/dL (60-115)
[2023-11-01] MEDS: 0.9 % Sodium Chloride Flush 10 ML SYRINGE IVFLUSH ×4 (00:23→23:52)
[2023-11-01] MEDS: Heparin Sodium,Porcine 5,000 UNIT/ML VIAL 5000 UNIT SUBCUT ×2 (04:50→15:56)
[2023-11-01 05:35] LABS: VBG Base Excess 1.8 mmol/L; VBG HCO3 25 mmol/L (22-26); VBG pCO2 37 mmHg; VBG pH 7.44 (7.32-7.43); VBG pO2 47 mmHg
[2023-11-01 05:39] LABS: Venous Blood Gas Refer to POC result
[2023-11-01 06:09] LABS: Glucose, Whole Blood 133 mg/dL (60-115)
[2023-11-01 06:26] LABS: MANUAL DIFF FLAG NO
--- NOTE | 2023-11-01 06:35 | PC.NURSE ---
care assumed 7pm..remains vcv/acvc+ vent support via trach...clear to white mucoid drainage around trach...whitish cream secretions via trach...tube feeds tolerated at 45 cc/hr and h20 240ml q6h...rectal tube expelled at shift change..incontinant loose brown stool x4...langley catheter placed 10/29 remains with low output as per shift report...initially 10-20 cc/hr...currently 15-25 cc/hr
[2023-11-01 06:50] LABS: Basophils Percent Auto 0.1 % (0-2); Eosinophils Absolute Auto 0.3 X10*3/uL (0.0-0.4); Eosinophils Percent Auto 3.4 % (0-4); Hematocrit 23.5 % (42.0-52.0); Hemoglobin 7.6 g/dl (14.0-18.0); Imm Gran Abs Auto 0.06 X10*3/uL (0.00-0.03); Imm Gran Pct Auto 0.7 % (0.0-0.4); Lymphocytes Absolute Auto 1.1 X10*3/uL (1.2-4.9); Lymphocytes Percent Auto 12.9 % (20-40); Mean Corpuscular HGB Conc 32.3 g/dl (31.0-36.0); Mean Corpuscular Hemoglobin 24.4 pg (27.0-33.0); Mean Corpuscular Volume 75.6 fL (80.0-98.0); Monocytes Absolute Auto 0.9 X10*3/uL (0.1-1.2); Monocytes Percent Auto 10.6 % (2-11); Neutrophils Absolute Auto 5.9 x10*3/uL (2.0-8.3); Neutrophils Percent Auto 72.3 % (45-73); Platelet Count 332 X10*3/uL (160-400); Red Blood Count 3.11 X10*6/uL (4.60-5.80); Red Cell Distribution Width 22.5 % (11.0-16.0); White Blood Count 8.2 X10*3/uL (4.8-10.8)
[2023-11-01 06:52] LABS: Albumin Level 2.9 g/dL (3.5-5.0); Anion Gap 17 (12-20); Calcium 8.8 mg/dL (8.4-10.2); Carbon Dioxide 22 mmol/L (22-29); Chloride 108 mmol/L (96-108); Creatinine Clr Calc Pharmacy 14.6; Estimated Glomerular Filt Rate 13; Glucose Random 132 mg/dL (60-115); Magnesium 2.2 mg/dL (1.6-2.6); Phosphorus 3.3 mg/dL (2.7-4.5); Potassium 3.8 mmol/L (3.3-5.1); Sodium 143 mmol/L (135-145)
[2023-11-01 07:04] LABS: Blood Urea Nitrogen 120 mg/dL (9-16)
[2023-11-01] MEDS: Tobramycin Sulfate 80 MG/2 ML VIAL 300 MG INHALE ×2 (07:55→19:32)
[2023-11-01] MEDS: Chlorhexidine Gluc Oral Rinse 15 ML MOUTHWASH BUCCAL ×3 (08:32→20:00)
[2023-11-01] MEDS: Metoprolol Tartrate 50 MG TABLET PO ×3 (08:32→20:00)
[2023-11-01] MEDS: Nystatin Powder 15 GM BOTTLE 1 APPL TOPICAL ×2 (08:32→20:01)
[2023-11-01] MEDS: QUEtiapine Fumarate 25 MG TABLET PO ×2 (08:32→20:00)
[2023-11-01] MEDS: Albumin Human 25 % 100 ML IV ×3 (08:32→19:51)
--- NOTE | 2023-11-01 09:41 | MHC.CLN ---
F/U DISCUSSED AT ROUNDS WITH REVIEWED LABS PT RECEIVING TF NEPRO TO MAX GOAL RATE 45ML/HR WITH 240ML Q 6 HR TO PROVIDE 1944KCALS (30KCALS/KG), 87G PROTEIN (1.3G/KG), 1745ML TOTAL WATER FROM FORMULA AND FLUSHES (26ML/KG) PT WITH Now stage 2 BUTTOCKS WITH INCREASED NUTRITION RISK TF WILL PROMOTE WOUND HEALING CONTINUE TO MONITOR TOLERANCE, RESIDUALS, AND LYTES
--- NOTE | 2023-11-01 10:14 | PM.CCPN ---
Subjective Subjective Date of Service: 11/01/23 Interval History: 62-year-old gentleman with underlying HIV on HAART, hep C, COPD admitted on 10/02/2023 with acute hypoxic respiratory failure secondary to influenza with superimposed bacterial superinfection requiring intubation, pressor, and ventilatory support. Cultures are negative to date. Shock component has resolved. Now with abdominal distention secondary to ileus versus SBO, evaluated by general surgeon and deemed to underlying ileus. Extubated 10/13/2023. On 10/14/2023 with an aspiration event resulting in refractory hypoxia requiring emergent intubation and ventilatory support. Post tracheostomy and gastrostomy on 10/21/2023. Now with significant critical illness myopathy. No events overnight. Rendal indices continue to rise, remains non-oliguric. Critical Care Time (minutes): 60 Physical Exam Vital Signs: Vital Signs: Last Vital Signs Temp 99.4 F 11/01/23 08:00 Pulse 94 11/01/23 10:00 Resp 21 H 11/01/23 10:00 BP 89/54 L 11/01/23 10:00 Pulse Ox 99 11/01/23 10:00 O2 Del Method Mechanical Ventil ation 11/01/23 10:00 O2 Flow Rate 30 10/31/23 19:00 FiO2 30 11/01/23 10:00 BMI result Body Mass Index 21.1 Const: General: no acute distress, alert and awake Eyes: Sclerae: sclerae normal EOM: EOMs intact bilaterally Neck: Neck: Yes trachea midline and Yes tracheostomy present (On vent) Resp: Auscultation: crackles (Mild bilateral) Cardio: Rate: regular rate Rhythm: regular rhythm Heart sounds: no gallops, no murmurs and no rubs GI: Inspection: Yes G-tube present Palpation (GI): Soft to palpation and Other GI palpation findings present ( Nontender) Auscultation: normal bowel sounds Extrem: General: No clubbing, No cyanosis and Yes edema (1+ bilateral) Objective Data Labs 11/01/23 05:16 11/01/23 05:16 Labs: Laboratory Results - last 24 hr 10/31/23 10/31/23 10/31/23 11:39 18:07 23:51 WBC RBC Hgb Hct MCV MCH MCHC RDW Plt Count MPV Immature Gran % (Auto) Neut % (Auto) Lymph % (Auto) [place] % (Auto) Eos % (Auto) Baso % (Auto) Lymph # (Auto) [place] # (Auto) Eos # (Auto) Baso # (Auto) Abs Immat Gran (auto) Absolute Neuts (auto) Absolute Nucleated RBC Nucleated RBC % (auto) VBG pH VBG pCO2 VBG pO2 VBG HCO3 VBG O2 Saturation VBG Base Excess Sodium Potassium Chloride Carbon Dioxide Anion Gap BUN Creatinine Estim Creat Clear Calc Estimated GFR POC Glucose 172 H 133 H 137 H Random Glucose Calcium Phosphorus Magnesium Albumin 11/01/23 11/01/23 11/01/23 05:16 05:29 06:06 WBC 8.2 RBC 3.11 L Hgb 7.6 L Hct 23.5 L MCV 75.6 L MCH 24.4 L MCHC 32.3 RDW 22.5 H Plt Count 332 MPV 11.0 Immature Gran % (Auto) 0.7 H Neut % (Auto) 72.3 Lymph % (Auto) 12.9 L [place] % (Auto) 10.6 Eos % (Auto) 3.4 Baso % (Auto) 0.1 Lymph # (Auto) 1.1 L [place] # (Auto) 0.9 Eos # (Auto) 0.3 Baso # (Auto) 0.0 Abs Immat Gran (auto) 0.06 H Absolute Neuts (auto) 5.9 Absolute Nucleated RBC 0.000 Nucleated RBC % (auto) 0.0 VBG pH 7.44 H VBG pCO2 37 VBG pO2 47 VBG HCO3 25 VBG O2 Saturation 75.0 VBG Base Excess 1.8 Sodium 143 Potassium 3.8 Chloride 108 Carbon Dioxide 22 Anion Gap 17 BUN 120 H Creatinine 4.72 H* Estim Creat Clear Calc 14.6 Estimated GFR 13 POC Glucose 133 H Random Glucose 132 H Calcium 8.8 Phosphorus 3.3 Magnesium 2.2 Albumin 2.9 L Microbiology Microbiology Results: Microbiology 10/02/23 06:40 Sputum - Suctioned Direct Acid Fast Bacilli Smear - Final 10/02/23 03:11 Blood - Central Line Blood Culture - Final No growth after 5 days. 10/02/23 03:11 Blood - Central Line Blood Culture - Final Coag negative Staphylococcus 10/02/23 06:40 Sputum - Suctioned Gram Stain - Final 10/02/23 06:40 Sputum - Suctioned Sputum Culture - Final 10/02/23 06:40 Urine Catheterized - Miguel Catheter Urine Culture - Final No growth. Progress Note: A&P Assessment and plan (1) Status post tracheostomy: Status: Acute (2) Critical illness myopathy: Status: Acute (3) AMBER (acute kidney injury): Status: Acute (4) HIV (human immunodeficiency virus infection): Status: Acute (5) Acute hypoxic respiratory failure: Status: Acute (6) Hepatitis C: Status: Acute (7) COPD (chronic obstructive pulmonary disease): Status: Acute Plan Assessment: 62-year-old gentleman with underlying HIV on HAART, hep C admitted with acute hypoxic respiratory failure secondary to bacterial superinfection of underlying influenza now requiring ventilatory support Plan: Neuro: No acute issues. Cardiac: No acute issues. Pulmonary: Acute hypoxic respiratory failure secondary to bacterial superinfection of underlying influenza, improved and extubated on 10/13/2023. However with development of recurrent aspirations requiring re-intubation on 10/14/2023. Now status post tracheostomy/gastrostomy on 10/21/2023. Continue to titrate off ventilatory support as tolerated. Renal: Acute kidney injury. Non oliguric. Continue to monitor renal indices and urine output. Nephrology service care appreciated. Endo: No acute issues. GI: No acute issues. ID: No acute issues. Heme/Onc: No acute issues. Psych: No acute issues. Miscellaneous: Critical illness myopathy, continue with PT. Prophylaxis: Heparin Diet: Tube feeds Critical care time spent: 60 minutes Quality Stroke Does the patient have a stroke diagnosis?: No VTE Prior VTE?: No VTE Risk Level:: Medical - moderate - high VTE Device Contraindication: N/A - Device Ordered VTE Drug Contraindication: N/A - Med Ordered
[2023-11-01 11:19] LABS: Glucose, Whole Blood 164 mg/dL (60-115)
[2023-11-01] MEDS: Insulin Lispro 100 UNIT/ML 3 ML VIAL SUBCUT (12:28)
--- NOTE | 2023-11-01 14:26 | MHC.CM.PN ---
Pt continues care in ICU: doing well w/trach collar but renal function worsening daily. Clinical updates sent to [facility] who continue to Pend transfer until renal recovery can be demonstrated. CM to follow
--- NOTE | 2023-11-01 17:20 | P.PNNP_ITS ---
Subjective Subjective Date of Service: 11/02/23 Interval history: Events noted. Discussed with ICU attending Physical Exam 2 Vital Signs: Vital Signs: Last Vital Signs Temp 98.5 F 11/01/23 16:00 Pulse 96 11/01/23 17:00 Resp 28 H 11/01/23 17:00 BP 128/72 11/01/23 17:00 Pulse Ox 96 11/01/23 17:00 O2 Del Method Mechanical Ventil ation 11/01/23 17:00 O2 Flow Rate 30 10/31/23 19:00 FiO2 30 11/01/23 17:00 BMI result Body Mass Index 21.1 Const: General: no acute distress and ill appearing HEENT: Head: Yes normocephalic Mouth: Normal oral and palatal mucosa present Neck: Neck: Yes supple Resp: Auscultation: clear to auscultation bilaterally and diminished lung sounds Cardio: Jugular venous distension: no JVD Palpation: no palpable S3 R ate: regular rate Heart sounds: no rubs GI: Palpation (GI): Soft to palpation Auscultation: normal bowel sounds Neuro: Other: Intubated and sedated Motor exam (neuro): no asterixis Objective Data Labs 11/02/23 04:15 11/02/23 04:15 Labs: Laboratory Results - last 24 hr 10/31/23 10/31/23 11/01/23 18:07 23:51 05:16 WBC 8.2 RBC 3.11 L Hgb 7.6 L Hct 23.5 L MCV 75.6 L MCH 24.4 L MCHC 32.3 RDW 22.5 H Plt Count 332 MPV 11.0 Immature Gran % (Auto) 0.7 H Neut % (Auto) 72.3 Lymph % (Auto) 12.9 L [place] % (Auto) 10.6 Eos % (Auto) 3.4 Baso % (Auto) 0.1 Lymph # (Auto) 1.1 L [place] # (Auto) 0.9 Eos # (Auto) 0.3 Baso # (Auto) 0.0 Abs Immat Gran (auto) 0.06 H Absolute Neuts (auto) 5.9 Absolute Nucleated RBC 0.000 Nucleated RBC % (auto) 0.0 VBG pH VBG pCO2 VBG pO2 VBG HCO3 VBG O2 Saturation VBG Base Excess Sodium 143 Potassium 3.8 Chloride 108 Carbon Dioxide 22 Anion Gap 17 BUN 120 H Creatinine 4.72 H* Estim Creat Clear Calc 14.6 Estimated GFR 13 POC Glucose 133 H 137 H Random Glucose 132 H Calcium 8.8 Phosphorus 3.3 Magnesium 2.2 Albumin 2.9 L 11/01/23 11/01/23 11/01/23 05:29 06:06 11:13 WBC RBC Hgb Hct MCV MCH MCHC RDW Plt Count MPV Immature Gran % (Auto) Neut % (Auto) Lymph % (Auto) [place] % (Auto) Eos % (Auto) Baso % (Auto) Lymph # (Auto) [place] # (Auto) Eos # (Auto) Baso # (Auto) Abs Immat Gran (auto) Absolute Neuts (auto) Absolute Nucleated RBC Nucleated RBC % (auto) VBG pH 7.44 H VBG pCO2 37 VBG pO2 47 VBG HCO3 25 VBG O2 Saturation 75.0 VBG Base Excess 1.8 Sodium Potassium Chloride Carbon Dioxide Anion Gap BUN Creatinine Estim Creat Clear Calc Estimated GFR POC Glucose 133 H 164 H Random Glucose Calcium Phosphorus Magnesium Albumin Microbiology Microbiology Results: Microbiology 10/02/23 06:40 Sputum - Suctioned Direct Acid Fast Bacilli Smear - Final 10/02/23 03:11 Blood - Central Line Blood Culture - Final No growth after 5 days. 10/02/23 03:11 Blood - Central Line Blood Culture - Final Coag negative Staphylococcus 10/02/23 06:40 Sputum - Suctioned Gram Stain - Final 10/02/23 06:40 Sputum - Suctioned Sputum Culture - Final 10/02/23 06:40 Urine Catheterized - Miguel Catheter Urine Culture - Final No growth. Procedures Date of Service Date of Service: 11/02/23 Assessment & Plan Assessment and plan (1) AMBER (acute kidney injury): Status: Acute (2) Hyperkalemia: Status: Acute (3) CKD (chronic kidney disease): Status: Acute Plan 62-year-old man with HIV has acute kidney injury superimposed on chronic kidney disease with hyperkalemia and mild metabolic acidosis. DDX acute kidney injury would include acute tubular necrosis from various episodes of hypotension as well as underlying infectious process. 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 Urine - No eosinophils Urine Pro: Cr > 2.0 Recommendations Can use Lasix judiciously to optimize fluid status. Watch urine output closely. No indication for dialysis at this time. We will follow with the team. Time Spent With Patient Time: Total time managing care of this patient today ____ minutes. Progress Note: Quality Stroke Does the patient have a stroke diagnosis?: No
[2023-11-01 17:37] LABS: Glucose, Whole Blood 137 mg/dL (60-115)
[2023-11-01] MEDS: HYDROmorphone HCl 0.5 MG/0.5 ML SYRINGE IVPUSH (19:51)
[2023-11-01 23:33] LABS: Glucose, Whole Blood 130 mg/dL (60-115)
[2023-11-02] VITALS (34 sets, daily range): BP systolic 94–158; BP diastolic 61–105; PULSE 91–121; RESP 15–32; TEMP 34.4–37.5; O2SAT 88–100; BMI 22.9
[2023-11-02] MEDS: Albumin Human 25 % 100 ML IV (01:53)
[2023-11-02 04:22] LABS: VBG HCO3 24 mmol/L (22-26); VBG pCO2 36 mmHg; VBG pH 7.42 (7.32-7.43); VBG pO2 38 mmHg
[2023-11-02] MEDS: Heparin Sodium,Porcine 5,000 UNIT/ML VIAL 5000 UNIT SUBCUT ×2 (04:37→15:36)
[2023-11-02 04:46] LABS: Venous Blood Gas Refer to POC result
[2023-11-02 04:53] LABS: Basophils Percent Auto 0.3 % (0-2); Eosinophils Absolute Auto 0.2 X10*3/uL (0.0-0.4); Eosinophils Percent Auto 3.6 % (0-4); Imm Gran Abs Auto 0.04 X10*3/uL (0.00-0.03); Imm Gran Pct Auto 0.6 % (0.0-0.4); Lymphocytes Percent Auto 14.4 % (20-40); MANUAL DIFF FLAG NO; Mean Corpuscular HGB Conc 32.7 g/dl (31.0-36.0); Mean Corpuscular Hemoglobin 24.6 pg (27.0-33.0); Mean Corpuscular Volume 75.4 fL (80.0-98.0); Mean Platelet Volume 10.3 fL (9.4-12.4); Monocytes Absolute Auto 0.6 X10*3/uL (0.1-1.2); Monocytes Percent Auto 8.6 % (2-11); Neutrophils Absolute Auto 4.8 x10*3/uL (2.0-8.3); Neutrophils Percent Auto 72.5 % (45-73); Platelet Count 262 X10*3/uL (160-400); Red Blood Count 2.68 X10*6/uL (4.60-5.80); Red Cell Distribution Width 22.5 % (11.0-16.0); White Blood Count 6.7 X10*3/uL (4.8-10.8)
[2023-11-02 05:12] LABS: Hemoglobin 6.6 g/dl (14.0-18.0)
[2023-11-02 05:13] LABS: Hematocrit 20.2 % (42.0-52.0)
[2023-11-02 05:19] LABS: Albumin Level 3.8 g/dL (3.5-5.0); Anion Gap 21 (12-20); Carbon Dioxide 21 mmol/L (22-29); Chloride 104 mmol/L (96-108); Creatinine Clr Calc Pharmacy 13.8; Estimated Glomerular Filt Rate 11; Glucose Random 144 mg/dL (60-115); Magnesium 2.3 mg/dL (1.6-2.6); Phosphorus 3.9 mg/dL (2.7-4.5); Potassium 3.8 mmol/L (3.3-5.1); Sodium 142 mmol/L (135-145)
[2023-11-02 05:29] LABS: Blood Urea Nitrogen 135 mg/dL (9-16)
[2023-11-02] MEDS: HYDROmorphone HCl 0.5 MG/0.5 ML SYRINGE IVPUSH ×3 (07:08→20:00)
[2023-11-02] MEDS: 0.9 % Sodium Chloride Flush 10 ML SYRINGE IVFLUSH ×2 (07:16→15:36)
[2023-11-02] MEDS: Chlorhexidine Gluc Oral Rinse 15 ML MOUTHWASH BUCCAL ×3 (07:30→20:03)
[2023-11-02] MEDS: Nystatin Powder 15 GM BOTTLE 1 APPL TOPICAL ×2 (07:30→20:03)
[2023-11-02] MEDS: Metoprolol Tartrate 50 MG TABLET PO ×3 (07:30→20:03)
[2023-11-02] MEDS: QUEtiapine Fumarate 25 MG TABLET PO ×2 (07:30→20:03)
[2023-11-02] MEDS: Bumetanide 1 MG/4 ML VIAL IVPUSH (07:30)
[2023-11-02] MEDS: Tobramycin Sulfate 80 MG/2 ML VIAL 300 MG INHALE ×2 (07:58→20:02)
--- NOTE | 2023-11-02 09:58 | P.PNCC_ITS ---
Subjective Subjective Date of Service: 11/02/23 Interval History: 62-year-old gentleman with underlying HIV on HAART, hep C, COPD admitted on 10/02/2023 with acute hypoxic respiratory failure secondary to influenza with superimposed bacterial superinfection requiring intubation, pressor, and ventilatory support. Cultures are negative to date. Shock component has resolved. Now with abdominal distention secondary to ileus versus SBO, evaluated by general surgeon and deemed to underlying ileus. Extubated 10/13/2023. On 10/14/2023 with an aspiration event resulting in refractory hypoxia requiring emergent intubation and ventilatory support. Post tracheostomy and gastrostomy on 10/21/2023. Now with significant critical illness myopathy. No events overnight. Renal indices continue to worsen. Critical Care Time (minutes): 60 Physical Exam 2 Vital Signs: Vital Signs: Last Vital Signs Temp 98.9 F 11/02/23 08:00 Pulse 91 11/02/23 09:00 Resp 15 11/02/23 09:00 BP 95/63 11/02/23 09:00 Pulse Ox 93 11/02/23 09:00 O2 Del Method Mechanical Ventil ation 11/02/23 09:00 O2 Flow Rate 30 10/31/23 19:00 FiO2 35 11/02/23 09:00 BMI result Body Mass Index 22.9 Const: General: no acute distress and lethargic Orientation/consciousness: lethargic Eyes: Sclerae: sclerae normal EOM: EOMs intact bilaterally Neck: Neck: Yes no lymphadenopathy, Yes trachea midline and Yes supple Resp: Effort & Inspection: tachypneic Auscultation: crackles bilateral Cardio: Rate: regular rate Rhythm: regular rhythm Heart sounds: no gallops, no murmurs and no rubs GI: Palpation (GI): Soft to palpation and Other GI palpation findings present ( Nontender) Auscultation: normal bowel sounds Extrem: General: Yes no pedal edema, No clubbing and No cyanosis Objective Data Labs 11/02/23 04:15 11/02/23 04:15 Labs: Laboratory Results - last 24 hr 10/30/23 11/01/23 11/01/23 06:44 11:13 17:34 WBC RBC Hgb Hct MCV MCH MCHC RDW Plt Count MPV Immature Gran % (Auto) Neut % (Auto) Lymph % (Auto) [place] % (Auto) Eos % (Auto) Baso % (Auto) Lymph # (Auto) [place] # (Auto) Eos # (Auto) Baso # (Auto) Abs Immat Gran (auto) Absolute Neuts (auto) Absolute Nucleated RBC Nucleated RBC % (auto) VBG pH VBG pCO2 VBG pO2 VBG HCO3 VBG O2 Saturation VBG Base Excess Sodium Potassium Chloride Carbon Dioxide Anion Gap BUN Creatinine Estim Creat Clear Calc Estimated GFR POC Glucose 164 H 137 H Random Glucose Calcium Phosphorus Magnesium Albumin Blood Type O Positive Antibody Screen POSITIVE Antibody Identification Anti-M JENNIFER, Polyspecific NEGATIVE Positive JENNIFER Work-up TNP Crossmatch ([facility]) See Detail 11/01/23 11/02/23 23:24 04:15 WBC 6.7 RBC 2.68 L Hgb 6.6 L* Hct 20.2 L* MCV 75.4 L MCH 24.6 L MCHC 32.7 RDW 22.5 H Plt Count 262 MPV 10.3 Immature Gran % (Auto) 0.6 H Neut % (Auto) 72.5 Lymph % (Auto) 14.4 L [place] % (Auto) 8.6 Eos % (Auto) 3.6 Baso % (Auto) 0.3 Lymph # (Auto) 1.0 L [place] # (Auto) 0.6 Eos # (Auto) 0.2 Baso # (Auto) 0.0 Abs Immat Gran (auto) 0.04 H Absolute Neuts (auto) 4.8 Absolute Nucleated RBC 0.000 Nucleated RBC % (auto) 0.0 VBG pH 7.42 VBG pCO2 36 VBG pO2 38 VBG HCO3 24 VBG O2 Saturation 61.0 VBG Base Excess 0.0 Sodium 142 Potassium 3.8 Chloride 104 Carbon Dioxide 21 L Anion Gap 21 H BUN 135 H Creatinine 5.42 H* Estim Creat Clear Calc 13.8 Estimated GFR 11 POC Glucose 130 H Random Glucose 144 H Calcium 9.0 Phosphorus 3.9 Magnesium 2.3 Albumin 3.8 Blood Type Antibody Screen Antibody Identification JENNIFER, Polyspecific Positive JENNIFER Work-up Crossmatch ([facility]) Microbiology Microbiology Results: Microbiology 10/02/23 06:40 Sputum - Suctioned Direct Acid Fast Bacilli Smear - Final 10/02/23 03:11 Blood - Central Line Blood Culture - Final No growth after 5 days. 10/02/23 03:11 Blood - Central Line Blood Culture - Final Coag negative Staphylococcus 10/02/23 06:40 Sputum - Suctioned Gram Stain - Final 10/02/23 06:40 Sputum - Suctioned Sputum Culture - Final 10/02/23 06:40 Urine Catheterized - Miguel Catheter Urine Culture - Final No growth. Progress Note: A&P Assessment and plan (1) Status post tracheostomy: Status: Acute (2) Critical illness myopathy: Status: Acute (3) AMBER (acute kidney injury): Status: Acute (4) HIV (human immunodeficiency virus infection): Status: Acute (5) Acute hypoxic respiratory failure: Status: Acute (6) Hepatitis C: Status: Acute (7) COPD (chronic obstructive pulmonary disease): Status: Acute Plan Assessment: 62-year-old gentleman with underlying HIV on HAART, hep C admitted with acute hypoxic respiratory failure secondary to bacterial superinfection of underlying influenza now requiring ventilatory support Plan: Neuro: No acute issues. Cardiac: No acute issues. Pulmonary: Acute hypoxic respiratory failure secondary to bacterial superinfection of underlying influenza, improved and extubated on 10/13/2023. However with development of recurrent aspirations requiring re-intubation on 10/14/2023. Now status post tracheostomy/gastrostomy on 10/21/2023. Continue to titrate off ventilatory support as tolerated. Renal: Acute kidney injury. Now worsening. Oliguric. Will try diuretic challenge. May require hemodialysis. Nephrology service care appreciated. Endo: No acute issues. GI: No acute issues. ID: No acute issues. Heme/Onc: No acute issues. Psych: No acute issues. Miscellaneous: Critical illness myopathy, continue with PT. Prophylaxis: Heparin Diet: Tube feeds Critical care time spent: 60 minutes Quality Stroke Does the patient have a stroke diagnosis?: No VTE Prior VTE?: No VTE Risk Level:: Medical - moderate - high VTE Device Contraindication: N/A - Device Ordered VTE Drug Contraindication: N/A - Med Ordered
[2023-11-02 11:13] LABS: Glucose, Whole Blood 149 mg/dL (60-115)
--- NOTE | 2023-11-02 11:33 | PC.NURSE ---
Assumed care at 0700- 1 unit RBCs infusing at this time. On assessment, Pt. with increased WOB, respirations labored and abdominal breathing. RR sustaining 25-35, O2 sat 86-90% on ACVC+ 18/420/5/30%. SBP 150s-160s, HR sustaining 120s. Pt. Diaphoretic and coarse crackles heard on auscultation. Pt. with moderate amount white blood tinged inline secretions. Blood transfusion paused at this time and esol teacher notified. RT notified and at bedside. 1 mg IVP Bumex ordered and administered per OCT. PRN dilaudid administered per EMAR for comfort. Textile Pin Worker at bedside- blood transfusion restarted at 50cc/hr. Scheduled medication, including metoprolol administered per OCT. Current VS HR 94, RR25, O2 sat 94% on 30% Fio2, BP 118/85 (94). Respirations easy and unlabored, pt. no longer diaphoretic. Plan of care ongoing.
--- NOTE | 2023-11-02 14:55 | HO.WOUND ---
Wound Consult: Follow up 62yr old?M admitted to [facility] on 10/02 - See progress notes and H&P for detailed history.? Wound consult follow up for Coccyx wound.? Patient remains in ICU at the time of my consult / assessment. 10/26/23 Initial Assessment 11/02/23 Todays Assessment Left Sacrum Etiology: ?Currently Stage 2 Pressure Injury - previously documented as Deep Tissue Injury in [facility] ? Measurements: see charting for detailed measurements Wound Bed: red pink moist wound bed - no deeper structures noted Drainage / Odor: small amount of serosang noted on dressing Edges: ? well defined Kellen wound: ?Scar tissue noted indicating previous full thickness pressure injury - hyperpigmentation noted - No Induration, Fluctuance or Warmth noted Pain: Patient expressed discomfort when assessed Goals of Treatment: ? Moist wound healing with Triad and Foam and protect from friction - Off Load Pressure Buttock, Perineal, and scrotum Etiology: ??MASD (Moisture Associated Skin Damage) IAD (Incontinence Associated Dermatitis) Measurements: generalized area Wound Bed: red pink erythema noted - scattered areas of partial thickness tissue loss Drainage / Odor: None noted at the time of my assessment Edges: ? Mirrored Kellen wound: ? No Induration, Fluctuance or Warmth noted Pain: Patient expressed significant pain Goals of Treatment: ? Triad to act as a barrier to liquid stool and sooth irritated tissue Recommendations: 1. Turn and Reposition every 2 hours and as needed for patient comfort.? Use pillows or wedges to support off loading positions. 2. Off Load all bony prominences with use of pillows and heel boots if needed.? Apply Preventative foams where needed. ? 3. Monitor for incontinence and moisture control, use barrier creams when needed for prevention and treatment. 4. Provide adequate and supplemental nutrition.? 5. Continue low air loss mattress. 6. When applicable maintain blood glucose levels per Providers order. 7. Sacrum - Off Load Pressure - Cleanse with PH balance spray or wipes, pat dry. ?Apply thin layer of Triad to wound bed. Do not remove all of paste between applications as this may cause further skin damage.? Cover with foam dressing to aid in off loading and protection from friction. 8. Buttock, Perineal, and Scrotum - Cleanse with PH balance spray or wipes, pat dry. ?Apply thin layer of Triad to wound bed - only pat and dab no scrub and rub when soiling occurs. Reapply thin layer PRN after each episode of incontinence. Re-consult wound care Nurse for wound deterioration or wound changes.
[2023-11-02 17:45] LABS: Glucose, Whole Blood 145 mg/dL (60-115)
--- NOTE | 2023-11-02 21:10 | PM.PNNEP ---
Subjective Subjective Date of Service: 11/03/23 Interval history: Events noted REnal funtion is worse Physical Exam Vital Signs: Vital Signs: Last Vital Signs Temp 99.0 F 11/02/23 20:00 Pulse 95 11/02/23 21:00 Resp 28 H 11/02/23 21:00 BP 94/65 11/02/23 21:00 Pulse Ox 90 L 11/02/23 21:00 O2 Del Method Mechanical Ventil ation 11/02/23 21:00 O2 Flow Rate 30 10/31/23 19:00 FiO2 30 11/02/23 21:00 BMI result Body Mass Index 22.9 Const: General: no acute distress and ill appearing HEENT: Head: Yes normocephalic Mouth: Normal oral and palatal mucosa present Neck: Neck: Yes supple Resp: Auscultation: clear to auscultation bilaterally and diminished lung sounds Cardio: Jugular venous distension: no JVD Palpation: no palpable S3 Rate: regular rate Heart sounds: no rubs GI: Palpation (GI): Soft to palpation Auscultation: normal bowel sounds Neuro: Other: Intubated and sedated Motor exam (neuro): no asterixis Objective Data Labs 11/03/23 05:22 11/03/23 05:22 Labs: Laboratory Results - last 24 hr 10/30/23 11/01/23 11/02/23 06:44 23:24 04:15 WBC 6.7 RBC 2.68 L Hgb 6.6 L* Hct 20.2 L* MCV 75.4 L MCH 24.6 L MCHC 32.7 RDW 22.5 H Plt Count 262 MPV 10.3 Immature Gran % (Auto) 0.6 H Neut % (Auto) 72.5 Lymph % (Auto) 14.4 L [place] % (Auto) 8.6 Eos % (Auto) 3.6 Baso % (Auto) 0.3 Lymph # (Auto) 1.0 L [place] # (Auto) 0.6 Eos # (Auto) 0.2 Baso # (Auto) 0.0 Abs Immat Gran (auto) 0.04 H Absolute Neuts (auto) 4.8 Absolute Nucleated RBC 0.000 Nucleated RBC % (auto) 0.0 VBG pH 7.42 VBG pCO2 36 VBG pO2 38 VBG HCO3 24 VBG O2 Saturation 61.0 VBG Base Excess 0.0 Sodium 142 Potassium 3.8 Chloride 104 Carbon Dioxide 21 L Anion Gap 21 H BUN 135 H Creatinine 5.42 H* Estim Creat Clear Calc 13.8 Estimated GFR 11 POC Glucose 130 H Random Glucose 144 H Calcium 9.0 Phosphorus 3.9 Magnesium 2.3 Albumin 3.8 Blood Type O Positive Antibody Screen POSITIVE Antibody Identification Anti-M JENNIFER, Polyspecific NEGATIVE Positive JENNIFER Work-up TNP Crossmatch ([facility]) See Detail 11/02/23 11/02/23 11:09 17:36 WBC RBC Hgb Hct MCV MCH MCHC RDW Plt Count MPV Immature Gran % (Auto) Neut % (Auto) Lymph % (Auto) [place] % (Auto) Eos % (Auto) Baso % (Auto) Lymph # (Auto) [place] # (Auto) Eos # (Auto) Baso # (Auto) Abs Immat Gran (auto) Absolute Neuts (auto) Absolute Nucleated RBC Nucleated RBC % (auto) VBG pH VBG pCO2 VBG pO2 VBG HCO3 VBG O2 Saturation VBG Base Excess Sodium Potassium Chloride Carbon Dioxide Anion Gap BUN Creatinine Estim Creat Clear Calc Estimated GFR POC Glucose 149 H 145 H Random Glucose Calcium Phosphorus Magnesium Albumin Blood Type Antibody Screen Antibody Identification JENNIFER, Polyspecific Positive JENNIFER Work-up Crossmatch ([facility]) Microbiology Microbiology Results: Microbiology 10/02/23 06:40 Sputum - Suctioned Direct Acid Fast Bacilli Smear - Final 10/02/23 03:11 Blood - Central Line Blood Culture - Final No growth after 5 days. 10/02/23 03:11 Blood - Central Line Blood Culture - Final Coag negative Staphylococcus 10/02/23 06:40 Sputum - Suctioned Gram Stain - Final 10/02/23 06:40 Sputum - Suctioned Sputum Culture - Final 10/02/23 06:40 Urine Catheterized - Miguel Catheter Urine Culture - Final No growth. Procedures Date of Service Date of Service: 11/03/23 Assessment & Plan Assessment and plan (1) AMBER (acute kidney injury): Status: Acute (2) Hyperkalemia: Status: Acute (3) CKD (chronic kidney disease): Status: Acute Plan 62-year-old man with HIV has acute kidney injury superimposed on chronic kidney disease with hyperkalemia and mild metabolic acidosis. DDX acute kidney injury would include acute tubular necrosis from various episodes of hypotension as well as underlying infectious process. 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 Urine - No eosinophils Urine Pro: Cr > 2.0 Recommendations Can use Lasix judiciously to optimize fluid status. Watch urine output closely. If no improvement in renal function , he would need dialysis Shall follow closely We will follow with the team. Time Spent With Patient Time: Total time managing care of this patient today ____ minutes. Progress Note: Quality Stroke Does the patient have a stroke diagnosis?: No
[2023-11-03] VITALS (32 sets, daily range): BP systolic 101–145; BP diastolic 67–103; PULSE 92–122; RESP 14–29; TEMP 34.8–37.5; O2SAT 89–98; BMI 22.8
[2023-11-03 00:02] LABS: Glucose, Whole Blood 129 mg/dL (60-115)
[2023-11-03] MEDS: 0.9 % Sodium Chloride Flush 10 ML SYRINGE IVFLUSH ×3 (00:08→16:02)
[2023-11-03] MEDS: HYDROmorphone HCl 0.5 MG/0.5 ML SYRINGE IVPUSH ×3 (00:45→15:01)
[2023-11-03] MEDS: LORazepam 2 MG/ML VIAL 0.5 MG IVPUSH (03:08)
[2023-11-03 05:36] LABS: VBG Base Excess -1.2 mmol/L; VBG HCO3 21 mmol/L (22-26); VBG pCO2 30 mmHg; VBG pH 7.46 (7.32-7.43); VBG pO2 39 mmHg
[2023-11-03 05:43] LABS: Venous Blood Gas Refer to POC result
[2023-11-03 06:11] LABS: Glucose, Whole Blood 153 mg/dL (60-115)
[2023-11-03] MEDS: Insulin Lispro 100 UNIT/ML 3 ML VIAL SUBCUT ×2 (06:12→11:54)
[2023-11-03 06:16] LABS: MANUAL DIFF FLAG NO
[2023-11-03 06:19] LABS: Basophils Percent Auto 0.1 % (0-2); Eosinophils Absolute Auto 0.2 X10*3/uL (0.0-0.4); Hematocrit 24.8 % (42.0-52.0); Hemoglobin 8.1 g/dl (14.0-18.0); Imm Gran Abs Auto 0.07 X10*3/uL (0.00-0.03); Imm Gran Pct Auto 0.8 % (0.0-0.4); Lymphocytes Percent Auto 11.8 % (20-40); Mean Corpuscular HGB Conc 32.7 g/dl (31.0-36.0); Mean Corpuscular Hemoglobin 25.2 pg (27.0-33.0); Mean Platelet Volume 11.1 fL (9.4-12.4); Monocytes Absolute Auto 0.9 X10*3/uL (0.1-1.2); Monocytes Percent Auto 10.7 % (2-11); Neutrophils Absolute Auto 6.3 x10*3/uL (2.0-8.3); Neutrophils Percent Auto 74.6 % (45-73); Platelet Count 274 X10*3/uL (160-400); Red Blood Count 3.22 X10*6/uL (4.60-5.80); Red Cell Distribution Width 22.5 % (11.0-16.0); White Blood Count 8.4 X10*3/uL (4.8-10.8)
[2023-11-03 06:38] LABS: Alanine Aminotransferase 18 U/L (0-40); Albumin Level 3.3 g/dL (3.5-5.0); Alkaline Phosphatase 157 U/L (39-117); Anion Gap 19 (12-20); Aspartate Amino Transferase 39 U/L (5-37); Bilirubin Total 0.3 mg/dL (0.0-1.0); Calcium 8.6 mg/dL (8.4-10.2); Carbon Dioxide 20 mmol/L (22-29); Chloride 106 mmol/L (96-108); Creatinine Clr Calc Pharmacy 12.1; Estimated Glomerular Filt Rate 9; Glucose Random 157 mg/dL (60-115); Magnesium 2.4 mg/dL (1.6-2.6); Phosphorus 4.8 mg/dL (2.7-4.5); Sodium 141 mmol/L (135-145); Total Protein 6.6 g/dL (6.5-8.0)
[2023-11-03 06:52] LABS: Blood Urea Nitrogen 141 mg/dL (9-16)
[2023-11-03] MEDS: Tobramycin Sulfate 80 MG/2 ML VIAL 300 MG INHALE ×2 (07:48→19:42)
[2023-11-03] MEDS: Chlorhexidine Gluc Oral Rinse 15 ML MOUTHWASH BUCCAL ×3 (08:25→21:29)
[2023-11-03] MEDS: Nystatin Powder 15 GM BOTTLE 1 APPL TOPICAL ×2 (08:25→21:30)
[2023-11-03] MEDS: Metoprolol Tartrate 50 MG TABLET PO ×3 (08:25→21:29)
[2023-11-03] MEDS: QUEtiapine Fumarate 25 MG TABLET PO ×2 (08:25→21:29)
--- NOTE | 2023-11-03 09:23 | MHC.CLN ---
F/U DISCUSSED AT ROUNDS WITH REVIEWED LABS; TO DISCUSS POSSIBLE HD WITH PT AND FAMILY PT RECEIVING TF NEPRO TO MAX GOAL RATE 45ML/HR WITH 240ML Q 6 HR PROVIDES 1944KCALS (30KCALS/KG), 87G PROTEIN (1.3G/KG), 1745ML TOTAL WATER FROM FORMULA AND FLUSHES (26ML/KG) TF WILL PROMOTE WOUND HEALING AND RENAL FRIENDLY CONTINUE TO MONITOR TOLERANCE, RESIDUALS, AND LYTES
--- NOTE | 2023-11-03 09:56 | PM.CCPN ---
Subjective Subjective Date of Service: 11/03/23 Interval History: 62-year-old gentleman with underlying HIV on HAART, hep C, COPD admitted on 10/02/2023 with acute hypoxic respiratory failure secondary to influenza with superimposed bacterial superinfection requiring intubation, pressor, and ventilatory support. Cultures are negative to date. Shock component has resolved. Now with abdominal distention secondary to ileus versus SBO, evaluated by general surgeon and deemed to underlying ileus. Extubated 10/13/2023. On 10/14/2023 with an aspiration event resulting in refractory hypoxia requiring emergent intubation and ventilatory support. Post tracheostomy and gastrostomy on 10/21/2023. Now with significant critical illness myopathy. No events overnight. Critical Care Time (minutes): 60 Physical Exam Vital Signs: Vital Signs: Last Vital Signs Temp 98.8 F 11/03/23 02:00 Pulse 114 H 11/03/23 09:00 Resp 28 H 11/03/23 09:00 BP 138/89 11/03/23 09:00 Pulse Ox 90 L 11/03/23 09:00 O2 Del Method Mechanical Ventil ation, Trach Colla r 11/03/23 09:00 O2 Flow Rate 30 10/31/23 19:00 FiO2 30 11/03/23 09:00 BMI result Body Mass Index 22.8 Const: General: no acute distress, alert and awake Eyes: Sclerae: sclerae normal EOM: EOMs intact bilaterally Neck: Neck: Yes no lymphadenopathy and Yes tracheostomy present (on vent) Resp: Auscultation: crackles bilateral Cardio: Rate: regular rate Rhythm: regular rhythm Heart sounds: no gallops, no murmurs and no rubs GI: Inspection: Yes G-tube present Palpation (GI): Soft to palpation and Other GI palpation findings present ( Nontender) Auscultation: normal bowel sounds Extrem: General: Yes no pedal edema, No clubbing and No cyanosis Objective Data Labs 11/03/23 05:22 11/03/23 05:22 Labs: Laboratory Results - last 24 hr 10/30/23 11/02/23 11/02/23 06:44 11:09 17:36 WBC RBC Hgb Hct MCV MCH MCHC RDW Plt Count MPV Immature Gran % (Auto) Neut % (Auto) Lymph % (Auto) [place] % (Auto) Eos % (Auto) Baso % (Auto) Lymph # (Auto) [place] # (Auto) Eos # (Auto) Baso # (Auto) Abs Immat Gran (auto) Absolute Neuts (auto) Absolute Nucleated RBC Nucleated RBC % (auto) VBG pH VBG pCO2 VBG pO2 VBG HCO3 VBG O2 Saturation VBG Base Excess Sodium Potassium Chloride Carbon Dioxide Anion Gap BUN Creatinine Estim Creat Clear Calc Estimated GFR POC Glucose 149 H 145 H Random Glucose Calcium Phosphorus Magnesium Total Bilirubin AST ALT Alkaline Phosphatase Total Protein Albumin Crossmatch ([facility]) See Detail 11/02/23 11/03/23 11/03/23 23:53 05:22 05:29 WBC 8.4 RBC 3.22 L D Hgb 8.1 L D Hct 24.8 L D MCV 77.0 L MCH 25.2 L MCHC 32.7 RDW 22.5 H Plt Count 274 MPV 11.1 Immature Gran % (Auto) 0.8 H Neut % (Auto) 74.6 H Lymph % (Auto) 11.8 L [place] % (Auto) 10.7 Eos % (Auto) 2.0 Baso % (Auto) 0.1 Lymph # (Auto) 1.0 L [place] # (Auto) 0.9 Eos # (Auto) 0.2 Baso # (Auto) 0.0 Abs Immat Gran (auto) 0.07 H Absolute Neuts (auto) 6.3 Absolute Nucleated RBC 0.000 Nucleated RBC % (auto) 0.0 VBG pH 7.46 H VBG pCO2 30 VBG pO2 39 VBG HCO3 21 L VBG O2 Saturation 67.0 VBG Base Excess -1.2 Sodium 141 Potassium 4.0 Chloride 106 Carbon Dioxide 20 L Anion Gap 19 BUN 141 H Creatinine 6.16 H* Estim Creat Clear Calc 12.1 Estimated GFR 9 POC Glucose 129 H Random Glucose 157 H Calcium 8.6 Phosphorus 4.8 H Magnesium 2.4 Total Bilirubin 0.3 AST 39 H ALT 18 Alkaline Phosphatase 157 H Total Protein 6.6 Albumin 3.3 L Crossmatch ([facility]) 11/03/23 06:00 WBC RBC Hgb Hct MCV MCH MCHC RDW Plt Count MPV Immature Gran % (Auto) Neut % (Auto) Lymph % (Auto) [place] % (Auto) Eos % (Auto) Baso % (Auto) Lymph # (Auto) [place] # (Auto) Eos # (Auto) Baso # (Auto) Abs Immat Gran (auto) Absolute Neuts (auto) Absolute Nucleated RBC Nucleated RBC % (auto) VBG pH VBG pCO2 VBG pO2 VBG HCO3 VBG O2 Saturation VBG Base Excess Sodium Potassium Chloride Carbon Dioxide Anion Gap BUN Creatinine Estim Creat Clear Calc Estimated GFR POC Glucose 153 H Random Glucose Calcium Phosphorus Magnesium Total Bilirubin AST ALT Alkaline Phosphatase Total Protein Albumin Crossmatch ([facility]) Microbiology Microbiology Results: Microbiology 10/02/23 06:40 Sputum - Suctioned Direct Acid Fast Bacilli Smear - Final 10/02/23 03:11 Blood - Central Line Blood Culture - Final No growth after 5 days. 10/02/23 03:11 Blood - Central Line Blood Culture - Final Coag negative Staphylococcus 10/02/23 06:40 Sputum - Suctioned Gram Stain - Final 10/02/23 06:40 Sputum - Suctioned Sputum Culture - Final 10/02/23 06:40 Urine Catheterized - Miguel Catheter Urine Culture - Final No growth. Progress Note: A&P Assessment and plan (1) Status post tracheostomy: Status: Acute (2) Critical illness myopathy: Status: Acute (3) AMBER (acute kidney injury): Status: Acute (4) HIV (human immunodeficiency virus infection): Status: Acute (5) Acute hypoxic respiratory failure: Status: Acute (6) Respiratory failure: Status: Acute (7) Hepatitis C: Status: Acute (8) COPD (chronic obstructive pulmonary disease): Status: Acute Plan Assessment: 62-year-old gentleman with underlying HIV on HAART, hep C admitted with acute hypoxic respiratory failure secondary to bacterial superinfection of underlying influenza now requiring ventilatory support Plan: Neuro: No acute issues. Cardiac: No acute issues. Pulmonary: Acute hypoxic respiratory failure secondary to bacterial superinfection of underlying influenza, improved and extubated on 10/13/2023. However with development of recurrent aspirations requiring re-intubation on 10/14/2023. Now status post tracheostomy/gastrostomy on 10/21/2023. Continue to titrate off ventilatory support as tolerated. Renal: Acute kidney injury. Now worsening. Oliguric. Will try diuretic challenge. May require hemodialysis. Nephrology service care appreciated. Endo: No acute issues. GI: No acute issues. ID: No acute issues. Heme/Onc: No acute issues. Psych: No acute issues. Miscellaneous: Critical illness myopathy, continue with PT. Prophylaxis: Heparin Diet: Tube feeds Critical care time spent: 60 minutes Quality Stroke Does the patient have a stroke diagnosis?: No VTE Prior VTE?: No VTE Risk Level:: Medical - moderate - high VTE Device Contraindication: N/A - Device Ordered VTE Drug Contraindication: N/A - Med Ordered
--- NOTE | 2023-11-03 10:05 | PM.PNNEP ---
Subjective Subjective Date of Service: 11/03/23 Interval history: 62-year-old gentleman with underlying HIV on HAART, hep C, COPD admitted on 10/02/2023 with acute hypoxic respiratory failure secondary to influenza with superimposed bacterial superinfection requiring intubation, pressor, and ventilatory support. Cultures are negative to date. Shock component has resolved. Now with abdominal distention secondary to ileus versus SBO, evaluated by general surgeon and deemed to underlying ileus. Extubated 10/13/2023. On 10/14/2023 with an aspiration event resulting in refractory hypoxia requiring emergent intubation and ventilatory support. Post tracheostomy and gastrostomy on 10/21/2023. Now with significant critical illness myopathy. No events overnight. Renal function continue to get worse Physical Exam Vital Signs: Vital Signs: Last Vital Signs Temp 98.8 F 11/03/23 02:00 Pulse 114 H 11/03/23 09:00 Resp 28 H 11/03/23 09:00 BP 138/89 11/03/23 09:00 Pulse Ox 90 L 11/03/23 09:00 O2 Del Method Mechanical Ventil ation, Trach Colla r 11/03/23 09:00 O2 Flow Rate 30 10/31/23 19:00 FiO2 30 11/03/23 09:00 BMI result Body Mass Index 22.8 Const: Other: Trach + General: no acute distress Resp: Auscultation: diminished lung sounds Cardio: Rate: regular rate GI: Other: G tube + Skin: General skin exam: no rashes or lesions noted Extrem: General: Yes no pedal edema Objective Data Labs 11/03/23 05:22 11/03/23 05:22 Labs: Laboratory Results - last 24 hr 10/30/23 11/02/23 11/02/23 06:44 11:09 17:36 WBC RBC Hgb Hct MCV MCH MCHC RDW Plt Count MPV Immature Gran % (Auto) Neut % (Auto) Lymph % (Auto) [place] % (Auto) Eos % (Auto) Baso % (Auto) Lymph # (Auto) [place] # (Auto) Eos # (Auto) Baso # (Auto) Abs Immat Gran (auto) Absolute Neuts (auto) Absolute Nucleated RBC Nucleated RBC % (auto) VBG pH VBG pCO2 VBG pO2 VBG HCO3 VBG O2 Saturation VBG Base Excess Sodium Potassium Chloride Carbon Dioxide Anion Gap BUN Creatinine Estim Creat Clear Calc Estimated GFR POC Glucose 149 H 145 H Random Glucose Calcium Phosphorus Magnesium Total Bilirubin AST ALT Alkaline Phosphatase Total Protein Albumin Crossmatch ([facility]) See Detail 11/02/23 11/03/23 11/03/23 23:53 05:22 05:29 WBC 8.4 RBC 3.22 L D Hgb 8.1 L D Hct 24.8 L D MCV 77.0 L MCH 25.2 L MCHC 32.7 RDW 22.5 H Plt Count 274 MPV 11.1 Immature Gran % (Auto) 0.8 H Neut % (Auto) 74.6 H Lymph % (Auto) 11.8 L [place] % (Auto) 10.7 Eos % (Auto) 2.0 Baso % (Auto) 0.1 Lymph # (Auto) 1.0 L [place] # (Auto) 0.9 Eos # (Auto) 0.2 Baso # (Auto) 0.0 Abs Immat Gran (auto) 0.07 H Absolute Neuts (auto) 6.3 Absolute Nucleated RBC 0.000 Nucleated RBC % (auto) 0.0 VBG pH 7.46 H VBG pCO2 30 VBG pO2 39 VBG HCO3 21 L VBG O2 Saturation 67.0 VBG Base Excess -1.2 Sodium 141 Potassium 4.0 Chloride 106 Carbon Dioxide 20 L Anion Gap 19 BUN 141 H Creatinine 6.16 H* Estim Creat Clear Calc 12.1 Estimated GFR 9 POC Glucose 129 H Random Glucose 157 H Calcium 8.6 Phosphorus 4.8 H Magnesium 2.4 Total Bilirubin 0.3 AST 39 H ALT 18 Alkaline Phosphatase 157 H Total Protein 6.6 Albumin 3.3 L Crossmatch ([facility]) 11/03/23 06:00 WBC RBC Hgb Hct MCV MCH MCHC RDW Plt Count MPV Immature Gran % (Auto) Neut % (Auto) Lymph % (Auto) [place] % (Auto) Eos % (Auto) Baso % (Auto) Lymph # (Auto) [place] # (Auto) Eos # (Auto) Baso # (Auto) Abs Immat Gran (auto) Absolute Neuts (auto) Absolute Nucleated RBC Nucleated RBC % (auto) VBG pH VBG pCO2 VBG pO2 VBG HCO3 VBG O2 Saturation VBG Base Excess Sodium Potassium Chloride Carbon Dioxide Anion Gap BUN Creatinine Estim Creat Clear Calc Estimated GFR POC Glucose 153 H Random Glucose Calcium Phosphorus Magnesium Total Bilirubin AST ALT Alkaline Phosphatase Total Protein Albumin Crossmatch ([facility]) Microbiology Microbiology Results: Microbiology 10/02/23 06:40 Sputum - Suctioned Direct Acid Fast Bacilli Smear - Final 10/02/23 03:11 Blood - Central Line Blood Culture - Final No growth after 5 days. 10/02/23 03:11 Blood - Central Line Blood Culture - Final Coag negative Staphylococcus 10/02/23 06:40 Sputum - Suctioned Gram Stain - Final 10/02/23 06:40 Sputum - Suctioned Sputum Culture - Final 10/02/23 06:40 Urine Catheterized - Miguel Catheter Urine Culture - Final No growth. Procedures Date of Service Date of Service: 11/03/23 Assessment & Plan Assessment and plan (1) AMBER (acute kidney injury): Status: Acute Plan Acute Kidney Injury due to tubular injury UO good; Renal function worse Shall dialyze today( ICU Attending to D/W family) C/W rest of current supportive care Labs AM; Shall closely follow up Progress Note: Quality Stroke Does the patient have a stroke diagnosis?: No
[2023-11-03 11:42] LABS: Glucose, Whole Blood 154 mg/dL (60-115)
[2023-11-03] MEDS: Heparin Sodium,Porcine 5,000 UNIT/ML VIAL 5000 UNIT SUBCUT (16:02)
[2023-11-03 17:50] LABS: Glucose, Whole Blood 142 mg/dL (60-115)
[2023-11-03] MEDS: Albuterol Sulfate (0.083%) 2.5 MG/3 ML VIAL.NEB INHALE ×2 (19:42→23:32)
[2023-11-03 23:58] LABS: Glucose, Whole Blood 152 mg/dL (60-115)
[2023-11-04] VITALS (32 sets, daily range): BP systolic 73–176; BP diastolic 40–109; PULSE 76–114; RESP 15–31; TEMP 34.9–37.3; O2SAT 87–98; BMI 22.9
[2023-11-04] MEDS: 0.9 % Sodium Chloride Flush 10 ML SYRINGE IVFLUSH ×4 (00:01→23:51)
[2023-11-04] MEDS: Insulin Lispro 100 UNIT/ML 3 ML VIAL SUBCUT ×2 (00:01→06:18)
[2023-11-04] MEDS: Heparin Sodium,Porcine 5,000 UNIT/ML VIAL 5000 UNIT SUBCUT ×2 (03:50→17:22)
[2023-11-04 05:45] LABS: VBG Base Excess -3.5 mmol/L; VBG HCO3 21 mmol/L (22-26); VBG pCO2 37 mmHg; VBG pH 7.35 (7.32-7.43); VBG pO2 68 mmHg
[2023-11-04 05:49] LABS: MANUAL DIFF FLAG NO
[2023-11-04 05:51] LABS: Basophils Percent Auto 0.2 % (0-2); Eosinophils Absolute Auto 0.2 X10*3/uL (0.0-0.4); Eosinophils Percent Auto 2.1 % (0-4); Imm Gran Abs Auto 0.07 X10*3/uL (0.00-0.03); Imm Gran Pct Auto 0.7 % (0.0-0.4); Lymphocytes Absolute Auto 1.1 X10*3/uL (1.2-4.9); Lymphocytes Percent Auto 10.1 % (20-40); Mean Corpuscular HGB Conc 33.3 g/dl (31.0-36.0); Mean Corpuscular Hemoglobin 25.4 pg (27.0-33.0); Mean Corpuscular Volume 76.3 fL (80.0-98.0); Mean Platelet Volume 10.6 fL (9.4-12.4); Monocytes Absolute Auto 1.1 X10*3/uL (0.1-1.2); Monocytes Percent Auto 10.2 % (2-11); Neutrophils Absolute Auto 8.2 x10*3/uL (2.0-8.3); Neutrophils Percent Auto 76.7 % (45-73); Platelet Count 258 X10*3/uL (160-400); Red Blood Count 3.54 X10*6/uL (4.60-5.80); White Blood Count 10.7 X10*3/uL (4.8-10.8)
[2023-11-04 05:52] LABS: Albumin Level 3.5 g/dL (3.5-5.0); Anion Gap 21 (12-20); Blood Urea Nitrogen 146 mg/dL (9-16); Calcium 9.2 mg/dL (8.4-10.2); Carbon Dioxide 20 mmol/L (22-29); Chloride 105 mmol/L (96-108); Creatinine Clr Calc Pharmacy 13.4; Estimated Glomerular Filt Rate 10; Glucose Random 188 mg/dL (60-115); Magnesium 2.4 mg/dL (1.6-2.6); Phosphorus 5.5 mg/dL (2.7-4.5); Potassium 3.7 mmol/L (3.3-5.1); Sodium 142 mmol/L (135-145)
[2023-11-04] MEDS: LORazepam 2 MG/ML VIAL 1 MG IVPUSH (06:19)
[2023-11-04 07:03] LABS: Venous Blood Gas Refer to POC result
[2023-11-04] MEDS: Tobramycin Sulfate 80 MG/2 ML VIAL 300 MG INHALE ×2 (07:28→19:22)
[2023-11-04] MEDS: Metoprolol Tartrate 50 MG TABLET PO ×3 (08:45→20:22)
[2023-11-04] MEDS: Nystatin Powder 15 GM BOTTLE 1 APPL TOPICAL ×2 (08:46→20:22)
[2023-11-04] MEDS: QUEtiapine Fumarate 25 MG TABLET PO ×2 (08:46→20:21)
[2023-11-04] MEDS: Chlorhexidine Gluc Oral Rinse 15 ML MOUTHWASH BUCCAL ×3 (08:46→20:21)
--- NOTE | 2023-11-04 09:51 | P.PNCC_ITS ---
Subjective Subjective Date of Service: 11/04/23 Interval History: 62-year-old gentleman with underlying HIV on HAART, hep C, COPD admitted on 10/02/2023 with acute hypoxic respiratory failure secondary to influenza with superimposed bacterial superinfection requiring intubation, pressor, and ventilatory support. Cultures are negative to date. Shock component has resolved. Now with abdominal distention secondary to ileus versus SBO, evaluated by general surgeon and deemed to underlying ileus. Extubated 10/13/2023. On 10/14/2023 with an aspiration event resulting in refractory hypoxia requiring emergent intubation and ventilatory support. Post tracheostomy and gastrostomy on 10/21/2023. Now with significant critical illness myopathy. No events overnight. Critical Care Time (minutes): 60 Physical Exam 2 Vital Signs: Vital Signs: Last Vital Signs Temp 97.2 F 11/04/23 08:00 Pulse 100 11/04/23 09:00 Resp 16 11/04/23 09:00 BP 149/104 H 11/04/23 09:00 Pulse Ox 95 11/04/23 09:00 O2 Del Method Mechanical Ventil ation 11/04/23 09:00 O2 Flow Rate 30 10/31/23 19:00 FiO2 30 11/04/23 09:00 BMI result Body Mass Index 22.9 Const: General: no acute distress and lethargic Orientation/consciousness: lethargic Eyes: Sclerae: sclerae normal EOM: EOMs intact bilaterally Neck: Neck: Yes no lymphadenopathy, Yes trachea midline and Yes supple Resp: Auscultation: clear to auscultation bilaterally Cardio: Rate: regular rate Rhythm: regular rhythm Heart sounds: no gallops, no murmurs and no rubs GI: Palpation (GI): Soft to palpation and Other GI palpation findings present ( Nontender) Auscultation: normal bowel sounds Extrem: General: No clubbing, No cyanosis and Yes edema (1+ bilateral) Objective Data Labs 11/04/23 04:37 11/04/23 04:37 Labs: Laboratory Results - last 24 hr 11/03/23 11/03/23 11/03/23 11:39 17:47 23:50 WBC RBC Hgb Hct MCV MCH MCHC RDW Plt Count MPV Immature Gran % (Auto) Neut % (Auto) Lymph % (Auto) [place] % (Auto) Eos % (Auto) Baso % (Auto) Lymph # (Auto) [place] # (Auto) Eos # (Auto) Baso # (Auto) Abs Immat Gran (auto) Absolute Neuts (auto) Absolute Nucleated RBC Nucleated RBC % (auto) VBG pH VBG pCO2 VBG pO2 VBG HCO3 VBG O2 Saturation VBG Base Excess Sodium Potassium Chloride Carbon Dioxide Anion Gap BUN Creatinine Estim Creat Clear Calc Estimated GFR POC Glucose 154 H 142 H 152 H Random Glucose Calcium Phosphorus Magnesium Albumin 11/04/23 11/04/23 04:37 04:52 WBC 10.7 RBC 3.54 L Hgb 9.0 L Hct 27.0 L MCV 76.3 L MCH 25.4 L MCHC 33.3 RDW 23.0 H Plt Count 258 MPV 10.6 Immature Gran % (Auto) 0.7 H Neut % (Auto) 76.7 H Lymph % (Auto) 10.1 L [place] % (Auto) 10.2 Eos % (Auto) 2.1 Baso % (Auto) 0.2 Lymph # (Auto) 1.1 L [place] # (Auto) 1.1 Eos # (Auto) 0.2 Baso # (Auto) 0.0 Abs Immat Gran (auto) 0.07 H Absolute Neuts (auto) 8.2 Absolute Nucleated RBC 0.000 Nucleated RBC % (auto) 0.0 VBG pH 7.35 VBG pCO2 37 VBG pO2 68 VBG HCO3 21 L VBG O2 Saturation 91.0 VBG Base Excess -3.5 Sodium 142 Potassium 3.7 Chloride 105 Carbon Dioxide 20 L Anion Gap 21 H BUN 146 H Creatinine 5.59 H* Estim Creat Clear Calc 13.4 Estimated GFR 10 POC Glucose Random Glucose 188 H Calcium 9.2 D Phosphorus 5.5 H Magnesium 2.4 Albumin 3.5 Microbiology Microbiology Results: Microbiology 10/02/23 06:40 Sputum - Suctioned Direct Acid Fast Bacilli Smear - Final 10/02/23 03:11 Blood - Central Line Blood Culture - Final No growth after 5 days. 10/02/23 03:11 Blood - Central Line Blood Culture - Final Coag negative Staphylococcus 10/02/23 06:40 Sputum - Suctioned Gram Stain - Final 10/02/23 06:40 Sputum - Suctioned Sputum Culture - Final 10/02/23 06:40 Urine Catheterized - Miguel Catheter Urine Culture - Final No growth. Progress Note: A&P Assessment and plan (1) Status post tracheostomy: Status: Acute (2) Critical illness myopathy: Status: Acute (3) AMBER (acute kidney injury): Status: Acute (4) HIV (human immunodeficiency virus infection): Status: Acute (5) Acute hypoxic respiratory failure: Status: Acute (6) Hepatitis C: Status: Acute (7) COPD (chronic obstructive pulmonary disease): Status: Acute Plan Assessment: 62-year-old gentleman with underlying HIV on HAART, hep C admitted with acute hypoxic respiratory failure secondary to bacterial superinfection of underlying influenza now requiring ventilatory support Plan: Neuro: No acute issues. Cardiac: No acute issues. Pulmonary: Acute hypoxic respiratory failure secondary to bacterial superinfection of underlying influenza, improved and extubated on 10/13/2023. However with development of recurrent aspirations requiring re-intubation on 10/14/2023. Now status post tracheostomy/gastrostomy on 10/21/2023. Continue to titrate off ventilatory support as tolerated. Renal: Acute kidney injury, leveling off. Non oliguric. Will try diuretic challenge. May require hemodialysis. Nephrology service care appreciated. Endo: No acute issues. GI: No acute issues. ID: No acute issues. Heme/Onc: No acute issues. Psych: No acute issues. Miscellaneous: Critical illness myopathy, continue with PT. Prophylaxis: Heparin Diet: Tube feeds Critical care time spent: 60 minutes Quality Stroke Does the patient have a stroke diagnosis?: No VTE Prior VTE?: No VTE Risk Level:: Medical - moderate - high VTE Device Contraindication: N/A - Device Ordered VTE Drug Contraindication: N/A - Med Ordered
--- NOTE | 2023-11-04 10:35 | P.PNNP_ITS ---
Subjective Subjective Date of Service: 11/15/23 Interval history: Events noted Did not have dialysis yet. Physical Exam 2 Vital Signs: Vital Signs: Last Vital Signs Temp 97.2 F 11/04/23 08:00 Pulse 85 11/04/23 10:00 Resp 20 11/04/23 10:00 BP 113/78 11/04/23 10:00 Pulse Ox 92 11/04/23 10:00 O2 Del Method Mechanical Ventil ation 11/04/23 10:00 O2 Flow Rate 30 10/31/23 19:00 FiO2 30 11/04/23 10:00 BMI result Body Mass Index 22.9 Const: General: no acute distress and ill appearing HEENT: Head: Yes normocephalic Mouth: Normal oral and palatal mucosa present Neck: Neck: Yes supple Resp: Auscultation: clear to auscultation bilaterally and diminished lung sounds Cardio: Jugular venous distension: no JVD Palpation: no palpable S3 R ate: regular rate Heart sounds: no rubs GI: Palpation (GI): Soft to palpation Auscultation: normal bowel sounds Neuro: Other: Intubated and sedated Motor exam (neuro): no asterixis Objective Data Labs 11/15/23 05:05 11/15/23 05:05 Labs: Laboratory Results - last 24 hr 11/03/23 11/03/23 11/03/23 11:39 17:47 23:50 WBC RBC Hgb Hct MCV MCH MCHC RDW Plt Count MPV Immature Gran % (Auto) Neut % (Auto) Lymph % (Auto) [place] % (Auto) Eos % (Auto) Baso % (Auto) Lymph # (Auto) [place] # (Auto) Eos # (Auto) Baso # (Auto) Abs Immat Gran (auto) Absolute Neuts (auto) Absolute Nucleated RBC Nucleated RBC % (auto) VBG pH VBG pCO2 VBG pO2 VBG HCO3 VBG O2 Saturation VBG Base Excess Sodium Potassium Chloride Carbon Dioxide Anion Gap BUN Creatinine Estim Creat Clear Calc Estimated GFR POC Glucose 154 H 142 H 152 H Random Glucose Calcium Phosphorus Magnesium Albumin 11/04/23 11/04/23 04:37 04:52 WBC 10.7 RBC 3.54 L Hgb 9.0 L Hct 27.0 L MCV 76.3 L MCH 25.4 L MCHC 33.3 RDW 23.0 H Plt Count 258 MPV 10.6 Immature Gran % (Auto) 0.7 H Neut % (Auto) 76.7 H Lymph % (Auto) 10.1 L [place] % (Auto) 10.2 Eos % (Auto) 2.1 Baso % (Auto) 0.2 Lymph # (Auto) 1.1 L [place] # (Auto) 1.1 Eos # (Auto) 0.2 Baso # (Auto) 0.0 Abs Immat Gran (auto) 0.07 H Absolute Neuts (auto) 8.2 Absolute Nucleated RBC 0.000 Nucleated RBC % (auto) 0.0 VBG pH 7.35 VBG pCO2 37 VBG pO2 68 VBG HCO3 21 L VBG O2 Saturation 91.0 VBG Base Excess -3.5 Sodium 142 Potassium 3.7 Chloride 105 Carbon Dioxide 20 L Anion Gap 21 H BUN 146 H Creatinine 5.59 H* Estim Creat Clear Calc 13.4 Estimated GFR 10 POC Glucose Random Glucose 188 H Calcium 9.2 D Phosphorus 5.5 H Magnesium 2.4 Albumin 3.5 Microbiology Microbiology Results: Microbiology 10/02/23 06:40 Sputum - Suctioned Direct Acid Fast Bacilli Smear - Final 10/02/23 03:11 Blood - Central Line Blood Culture - Final No growth after 5 days. 10/02/23 03:11 Blood - Central Line Blood Culture - Final Coag negative Staphylococcus 10/02/23 06:40 Sputum - Suctioned Gram Stain - Final 10/02/23 06:40 Sputum - Suctioned Sputum Culture - Final 10/02/23 06:40 Urine Catheterized - Miguel Catheter Urine Culture - Final No growth. Procedures Date of Service Date of Service: 11/15/23 Assessment & Plan Assessment and plan (1) AMBER (acute kidney injury): Status: Acute (2) Hyperkalemia: Status: Acute (3) CKD (chronic kidney disease): Status: Acute Plan 62-year-old man with HIV has acute kidney injury superimposed on chronic kidney disease with hyperkalemia and mild metabolic acidosis. DDX acute kidney injury would include acute tubular necrosis from various episodes of hypotension as well as underlying infectious process. 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 Urine - No eosinophils Urine Pro: Cr > 2.0 Recommendations Can use Lasix judiciously to optimize fluid status. Watch urine output closely. If no improvement , he would need dialysis Shall follow closely We will follow with the team. Time Spent With Patient Time: Total time managing care of this patient today ____ minutes. Progress Note: Quality Stroke Does the patient have a stroke diagnosis?: No
[2023-11-04 11:06] LABS: Glucose, Whole Blood 104 mg/dL (60-115)
[2023-11-04] MEDS: HYDROmorphone HCl 0.5 MG/0.5 ML SYRINGE IVPUSH (13:07)
[2023-11-04] MEDS: dexmedeTOMIDidine HCL/NS 400 MCG/100 ML INFUS..BTL 17.58 MCG IVCONT (13:48)
[2023-11-04 17:24] LABS: Glucose, Whole Blood 123 mg/dL (60-115)
[2023-11-04 23:55] LABS: Glucose, Whole Blood 145 mg/dL (60-115)
[2023-11-05] VITALS (32 sets, daily range): BP systolic 80–160; BP diastolic 50–105; PULSE 63–110; RESP 13–35; TEMP 34.5–36.9; O2SAT 90–100; BMI 22.8
[2023-11-05] MEDS: Heparin Sodium,Porcine 5,000 UNIT/ML VIAL 5000 UNIT SUBCUT ×2 (04:22→16:01)
[2023-11-05 04:53] LABS: VBG Base Excess -1.7 mmol/L; VBG HCO3 21 mmol/L (22-26); VBG pCO2 30 mmHg; VBG pH 7.45 (7.32-7.43); VBG pO2 38 mmHg
[2023-11-05 04:54] LABS: Basophils Percent Auto 0.2 % (0-2); Eosinophils Absolute Auto 0.2 X10*3/uL (0.0-0.4); Eosinophils Percent Auto 2.8 % (0-4); Hemoglobin 7.7 g/dl (14.0-18.0); Imm Gran Abs Auto 0.04 X10*3/uL (0.00-0.03); Imm Gran Pct Auto 0.5 % (0.0-0.4); Lymphocytes Absolute Auto 0.9 X10*3/uL (1.2-4.9); Lymphocytes Percent Auto 10.8 % (20-40); MANUAL DIFF FLAG NO; Mean Corpuscular HGB Conc 33.5 g/dl (31.0-36.0); Mean Corpuscular Hemoglobin 25.7 pg (27.0-33.0); Mean Corpuscular Volume 76.7 fL (80.0-98.0); Mean Platelet Volume 9.9 fL (9.4-12.4); Monocytes Absolute Auto 0.8 X10*3/uL (0.1-1.2); Monocytes Percent Auto 9.4 % (2-11); Neutrophils Absolute Auto 6.3 x10*3/uL (2.0-8.3); Neutrophils Percent Auto 76.3 % (45-73); Platelet Count 211 X10*3/uL (160-400); Red Cell Distribution Width 22.9 % (11.0-16.0); White Blood Count 8.3 X10*3/uL (4.8-10.8)
[2023-11-05 04:56] LABS: Venous Blood Gas Refer to POC result
[2023-11-05 05:20] LABS: Anion Gap 19 (12-20); Calcium 8.8 mg/dL (8.4-10.2); Carbon Dioxide 19 mmol/L (22-29); Chloride 106 mmol/L (96-108); Estimated Glomerular Filt Rate 11; Glucose Random 156 mg/dL (60-115); Magnesium 2.4 mg/dL (1.6-2.6); Potassium 3.9 mmol/L (3.3-5.1); Sodium 140 mmol/L (135-145)
[2023-11-05 05:44] LABS: Blood Urea Nitrogen 152 mg/dL (9-16)
[2023-11-05] MEDS: Insulin Lispro 100 UNIT/ML 3 ML VIAL SUBCUT ×2 (06:15→17:41)
[2023-11-05 06:27] LABS: Creatinine Clr Calc Pharmacy 13.8
[2023-11-05] MEDS: Tobramycin Sulfate 80 MG/2 ML VIAL 300 MG INHALE ×2 (07:34→18:46)
[2023-11-05] MEDS: 0.9 % Sodium Chloride Flush 10 ML SYRINGE IVFLUSH ×2 (07:49→16:03)
[2023-11-05] MEDS: Albumin Human 25 % 100 ML IV ×3 (08:13→19:24)
[2023-11-05] MEDS: QUEtiapine Fumarate 25 MG TABLET PO ×2 (08:14→20:20)
[2023-11-05] MEDS: Metoprolol Tartrate 50 MG TABLET PO ×3 (08:14→20:20)
[2023-11-05] MEDS: Chlorhexidine Gluc Oral Rinse 15 ML MOUTHWASH BUCCAL ×3 (08:14→20:20)
[2023-11-05] MEDS: Nystatin Powder 15 GM BOTTLE 1 APPL TOPICAL ×2 (08:14→20:21)
[2023-11-05] MEDS: dexmedeTOMIDidine HCL/NS 400 MCG/100 ML INFUS..BTL IVCONT (09:16)
--- NOTE | 2023-11-05 09:42 | MHC.CLN ---
F/U DISCUSSED AT ROUNDS WITH REVIEWED LABS PT RECEIVING TF NEPRO AT MAX GOAL RATE 45ML/HR WITH 240ML Q 6 HR PROVIDES 1944KCALS (30KCALS/KG), 87G PROTEIN (1.3G/KG), 1745ML TOTAL WATER FROM FORMULA AND FLUSHES (26ML/KG) TF WILL PROMOTE WOUND HEALING AND RENAL FRIENDLY CONTINUE TO MONITOR TOLERANCE, RESIDUALS, AND LYTES
[2023-11-05 11:13] LABS: Glucose, Whole Blood 133 mg/dL (60-115)
--- NOTE | 2023-11-05 11:14 | P.PNCC_ITS ---
Subjective Subjective Date of Service: 11/05/23 Interval History: 62-year-old gentleman with underlying HIV on HAART, hep C, COPD admitted on 10/02/2023 with acute hypoxic respiratory failure secondary to influenza with superimposed bacterial superinfection requiring intubation, pressor, and ventilatory support. Cultures are negative to date. Shock component has resolved. Now with abdominal distention secondary to ileus versus SBO, evaluated by general surgeon and deemed to underlying ileus. Extubated 10/13/2023. On 10/14/2023 with an aspiration event resulting in refractory hypoxia requiring emergent intubation and ventilatory support. Post tracheostomy and gastrostomy on 10/21/2023. Now with significant critical illness myopathy. No events overnight. Creatinine, urine output, and phosphorous are improving, BUN is lagging behind. Critical Care Time (minutes): 60 Physical Exam 2 Vital Signs: Vital Signs: Last Vital Signs Temp 98.2 F 11/05/23 08:00 Pulse 74 11/05/23 10:00 Resp 35 H 11/05/23 10:00 BP 88/60 L 11/05/23 10:00 Pulse Ox 94 11/05/23 10:00 O2 Del Method Mechanical Ventil ation 11/05/23 10:00 O2 Flow Rate 30 10/31/23 19:00 FiO2 30 11/05/23 11:05 BMI result Body Mass Index 22.8 Const: General: no acute distress, alert and awake Eyes: Sclerae: sclerae normal EOM: EOMs intact bilaterally Neck: Neck: Yes no lymphadenopathy, Yes trachea midline and Yes supple Resp: Auscultation: crackles (Bilateral) Cardio: Rate: regular rate Rhythm: regular rhythm Heart sounds: no gallops, no murmurs and no rubs GI: Palpation (GI): Soft to palpation and Other GI palpation findings present ( Nontender) Auscultation: normal bowel sounds Extrem: General: No clubbing, No cyanosis and Yes edema (1+ bilateral) Objective Data Labs 11/05/23 04:40 11/05/23 04:40 Labs: Laboratory Results - last 24 hr 11/04/23 11/04/23 11/05/23 17:20 23:47 04:40 WBC 8.3 RBC 3.00 L Hgb 7.7 L Hct 23.0 L MCV 76.7 L MCH 25.7 L MCHC 33.5 RDW 22.9 H Plt Count 211 MPV 9.9 Immature Gran % (Auto) 0.5 H Neut % (Auto) 76.3 H Lymph % (Auto) 10.8 L [place] % (Auto) 9.4 Eos % (Auto) 2.8 Baso % (Auto) 0.2 Lymph # (Auto) 0.9 L [place] # (Auto) 0.8 Eos # (Auto) 0.2 Baso # (Auto) 0.0 Abs Immat Gran (auto) 0.04 H Absolute Neuts (auto) 6.3 Absolute Nucleated RBC 0.000 Nucleated RBC % (auto) 0.0 VBG pH VBG pCO2 VBG pO2 VBG HCO3 VBG O2 Saturation VBG Base Excess Sodium 140 Potassium 3.9 Chloride 106 Carbon Dioxide 19 L Anion Gap 19 BUN 152 H Creatinine 5.40 H* Estim Creat Clear Calc 13.8 Estimated GFR 11 POC Glucose 123 H 145 H Random Glucose 156 H Calcium 8.8 Phosphorus 5.0 H Magnesium 2.4 Albumin 3.0 L 11/05/23 04:46 WBC RBC Hgb Hct MCV MCH MCHC RDW Plt Count MPV Immature Gran % (Auto) Neut % (Auto) Lymph % (Auto) [place] % (Auto) Eos % (Auto) Baso % (Auto) Lymph # (Auto) [place] # (Auto) Eos # (Auto) Baso # (Auto) Abs Immat Gran (auto) Absolute Neuts (auto) Absolute Nucleated RBC Nucleated RBC % (auto) VBG pH 7.45 H VBG pCO2 30 VBG pO2 38 VBG HCO3 21 L VBG O2 Saturation 61.0 VBG Base Excess -1.7 Sodium Potassium Chloride Carbon Dioxide Anion Gap BUN Creatinine Estim Creat Clear Calc Estimated GFR POC Glucose Random Glucose Calcium Phosphorus Magnesium Albumin Microbiology Microbiology Results: Microbiology 10/02/23 06:40 Sputum - Suctioned Direct Acid Fast Bacilli Smear - Final 10/02/23 03:11 Blood - Central Line Blood Culture - Final No growth after 5 days. 10/02/23 03:11 Blood - Central Line Blood Culture - Final Coag negative Staphylococcus 10/02/23 06:40 Sputum - Suctioned Gram Stain - Final 10/02/23 06:40 Sputum - Suctioned Sputum Culture - Final 10/02/23 06:40 Urine Catheterized - Miguel Catheter Urine Culture - Final No growth. Progress Note: A&P Assessment and plan (1) Status post tracheostomy: Status: Acute (2) AMBER (acute kidney injury): Status: Acute (3) HIV (human immunodeficiency virus infection): Status: Acute (4) Acute hypoxic respiratory failure: Status: Acute (5) Hepatitis C: Status: Acute (6) COPD (chronic obstructive pulmonary disease): Status: Acute Plan Assessment: 62-year-old gentleman with underlying HIV on HAART, hep C admitted with acute hypoxic respiratory failure secondary to bacterial superinfection of underlying influenza now requiring ventilatory support Plan: Neuro: No acute issues. Cardiac: No acute issues. Pulmonary: Acute hypoxic respiratory failure secondary to bacterial superinfection of underlying influenza, improved and extubated on 10/13/2023. However with development of recurrent aspirations requiring re-intubation on 10/14/2023. Now status post tracheostomy/gastrostomy on 10/21/2023. Continue to titrate off ventilatory support as tolerated. Renal: Acute kidney injury, leveling off. Non oliguric. May require hemodialysis. Nephrology service care appreciated. Endo: No acute issues. GI: No acute issues. ID: No acute issues. Heme/Onc: No acute issues. Psych: No acute issues. Miscellaneous: Critical illness myopathy, continue with PT. Prophylaxis: Heparin Diet: Tube feeds Critical care time spent: 60 minutes Quality Stroke Does the patient have a stroke diagnosis?: No VTE Prior VTE?: No VTE Risk Level:: Medical - moderate - high VTE Device Contraindication: N/A - Device Ordered VTE Drug Contraindication: N/A - Med Ordered
[2023-11-05] MEDS: HYDROmorphone HCl 0.5 MG/0.5 ML SYRINGE IVPUSH (11:57)
--- NOTE | 2023-11-05 14:16 | PC.NURSE ---
1000- PSV trail initiated by RT 15 30% - tolerating well. 1325 restraints discontinued d/t passing restraint trail. 1345 - RR mid 30's, O2 sat high 80's - RT called to bedside. Patient switched back to ACVC+ settings. Patient agitated, uncooperative with care. Precedex gtt titrated per OCT. 1400 - Patient pulled vent circuit off trach - MD notified and restraints restarted. Patient suctioned and trach care provided. High fall risk precautions and tele sitter in place.
--- NOTE | 2023-11-05 14:56 | MHC.CM.PN ---
Pt continues to make slow progress - PSV trials continued: HD not initiated at this time d/t plateaued renal status. MD expects improvement with BUN/creat. Clinical updates sent to [facility] in anticipation of eventual transfer. [facility] cannot accept pt unless he is in demonstrated renal recovery He will also need bed availability and payor auth. CM to follow on Wednesday.
[2023-11-05 17:34] LABS: Glucose, Whole Blood 157 mg/dL (60-115)
[2023-11-05] MEDS: dexmedeTOMIDidine HCL/NS 400 MCG/100 ML INFUS..BTL 17.58 MCG IVCONT (20:12)
--- NOTE | 2023-11-05 22:01 | PM.PNNEP ---
Subjective Subjective Date of Service: 11/05/23 Interval history: No events overnight. Creatinine, urine output, and phosphorous are improving. All other recent data reviewed. D/W MICU Attending Physical Exam Vital Signs: Vital Signs: Last Vital Signs Temp 98.0 F 11/05/23 20:00 Pulse 65 11/05/23 20:58 Resp 20 11/05/23 20:58 BP 83/57 L 11/05/23 20:58 Pulse Ox 94 11/05/23 20:58 O2 Del Method Mechanical Ventil ation 11/05/23 20:58 O2 Flow Rate 30 10/31/23 19:00 FiO2 30 11/05/23 20:58 BMI result Body Mass Index 22.8 Const: Other: Trach Resp: Auscultation: diminished lung sounds Cardio: Rate: regular rate GI: Palpation (GI): Soft to palpation Skin: General skin exam: no rashes or lesions noted Objective Data Labs 11/05/23 04:40 11/05/23 04:40 Labs: Laboratory Results - last 24 hr 11/04/23 11/05/23 11/05/23 23:47 04:40 04:46 WBC 8.3 RBC 3.00 L Hgb 7.7 L Hct 23.0 L MCV 76.7 L MCH 25.7 L MCHC 33.5 RDW 22.9 H Plt Count 211 MPV 9.9 Immature Gran % (Auto) 0.5 H Neut % (Auto) 76.3 H Lymph % (Auto) 10.8 L [place] % (Auto) 9.4 Eos % (Auto) 2.8 Baso % (Auto) 0.2 Lymph # (Auto) 0.9 L [place] # (Auto) 0.8 Eos # (Auto) 0.2 Baso # (Auto) 0.0 Abs Immat Gran (auto) 0.04 H Absolute Neuts (auto) 6.3 Absolute Nucleated RBC 0.000 Nucleated RBC % (auto) 0.0 VBG pH 7.45 H VBG pCO2 30 VBG pO2 38 VBG HCO3 21 L VBG O2 Saturation 61.0 VBG Base Excess -1.7 Sodium 140 Potassium 3.9 Chloride 106 Carbon Dioxide 19 L Anion Gap 19 BUN 152 H Creatinine 5.40 H* Estim Creat Clear Calc 13.8 Estimated GFR 11 POC Glucose 145 H Random Glucose 156 H Calcium 8.8 Phosphorus 5.0 H Magnesium 2.4 Albumin 3.0 L 11/05/23 11/05/23 11:08 17:24 WBC RBC Hgb Hct MCV MCH MCHC RDW Plt Count MPV Immature Gran % (Auto) Neut % (Auto) Lymph % (Auto) [place] % (Auto) Eos % (Auto) Baso % (Auto) Lymph # (Auto) [place] # (Auto) Eos # (Auto) Baso # (Auto) Abs Immat Gran (auto) Absolute Neuts (auto) Absolute Nucleated RBC Nucleated RBC % (auto) VBG pH VBG pCO2 VBG pO2 VBG HCO3 VBG O2 Saturation VBG Base Excess Sodium Potassium Chloride Carbon Dioxide Anion Gap BUN Creatinine Estim Creat Clear Calc Estimated GFR POC Glucose 133 H 157 H Random Glucose Calcium Phosphorus Magnesium Albumin Microbiology Microbiology Results: Microbiology 10/02/23 06:40 Sputum - Suctioned Direct Acid Fast Bacilli Smear - Final 10/02/23 03:11 Blood - Central Line Blood Culture - Final No growth after 5 days. 10/02/23 03:11 Blood - Central Line Blood Culture - Final Coag negative Staphylococcus 10/02/23 06:40 Sputum - Suctioned Gram Stain - Final 10/02/23 06:40 Sputum - Suctioned Sputum Culture - Final 10/02/23 06:40 Urine Catheterized - Miguel Catheter Urine Culture - Final No growth. Procedures Date of Service Date of Service: 11/05/23 Assessment & Plan Assessment and plan (1) AMBER (acute kidney injury): Status: Acute Plan Acute Kidney Injury due to tubular injury UO good; May need HD ( ICU Attending to D/W family) C/W rest of current supportive care Labs AM; Shall closely follow up Progress Note: Quality Stroke Does the patient have a stroke diagnosis?: No
[2023-11-05 23:48] LABS: Glucose, Whole Blood 150 mg/dL (60-115)
[2023-11-06] VITALS (37 sets, daily range): BP systolic 92–167; BP diastolic 57–108; PULSE 62–113; RESP 15–32; TEMP 34.5–37.4; O2SAT 88–98; BMI 24.1
[2023-11-06] MEDS: Albumin Human 25 % 100 ML IV (00:47)
[2023-11-06] MEDS: dexmedeTOMIDidine HCL/NS 400 MCG/100 ML INFUS..BTL 17.58 MCG IVCONT ×2 (02:03→07:43)
[2023-11-06 04:55] LABS: VBG Base Excess -1.2 mmol/L; VBG HCO3 22 mmol/L (22-26); VBG pCO2 31 mmHg; VBG pH 7.45 (7.32-7.43); VBG pO2 37 mmHg
[2023-11-06 05:02] LABS: MANUAL DIFF FLAG NO
[2023-11-06 05:05] LABS: Venous Blood Gas Refer to POC result
[2023-11-06 05:07] LABS: Basophils Percent Auto 0.2 % (0-2); Eosinophils Absolute Auto 0.1 X10*3/uL (0.0-0.4); Eosinophils Percent Auto 2.5 % (0-4); Hematocrit 21.2 % (42.0-52.0); Imm Gran Abs Auto 0.02 X10*3/uL (0.00-0.03); Imm Gran Pct Auto 0.4 % (0.0-0.4); Lymphocytes Absolute Auto 0.9 X10*3/uL (1.2-4.9); Lymphocytes Percent Auto 15.8 % (20-40); Mean Corpuscular Hemoglobin 25.4 pg (27.0-33.0); Mean Corpuscular Volume 76.8 fL (80.0-98.0); Mean Platelet Volume 10.4 fL (9.4-12.4); Monocytes Absolute Auto 0.5 X10*3/uL (0.1-1.2); Monocytes Percent Auto 9.7 % (2-11); Neutrophils Percent Auto 71.4 % (45-73); Platelet Count 187 X10*3/uL (160-400); Red Blood Count 2.76 X10*6/uL (4.60-5.80); Red Cell Distribution Width 23.4 % (11.0-16.0); White Blood Count 5.6 X10*3/uL (4.8-10.8)
[2023-11-06 05:37] LABS: Albumin Level 3.9 g/dL (3.5-5.0); Anion Gap 18 (12-20); Calcium 9.3 mg/dL (8.4-10.2); Carbon Dioxide 21 mmol/L (22-29); Chloride 107 mmol/L (96-108); Estimated Glomerular Filt Rate 12; Glucose Random 169 mg/dL (60-115); Magnesium 2.5 mg/dL (1.6-2.6); Phosphorus 5.4 mg/dL (2.7-4.5); Potassium 4.1 mmol/L (3.3-5.1); Sodium 142 mmol/L (135-145)
[2023-11-06] MEDS: Insulin Lispro 100 UNIT/ML 3 ML VIAL SUBCUT ×3 (05:41→18:22)
[2023-11-06 05:47] LABS: Blood Urea Nitrogen 147 mg/dL (9-16)
[2023-11-06] MEDS: Metoprolol Tartrate 50 MG TABLET PO ×3 (07:24→20:22)
[2023-11-06] MEDS: QUEtiapine Fumarate 25 MG TABLET PO ×2 (07:24→20:22)
[2023-11-06] MEDS: Chlorhexidine Gluc Oral Rinse 15 ML MOUTHWASH BUCCAL ×3 (07:24→20:22)
[2023-11-06] MEDS: Nystatin Powder 15 GM BOTTLE 1 APPL TOPICAL ×2 (07:25→20:22)
[2023-11-06] MEDS: 0.9 % Sodium Chloride Flush 10 ML SYRINGE IVFLUSH ×2 (07:25→15:43)
[2023-11-06] MEDS: Tobramycin Sulfate 80 MG/2 ML VIAL 300 MG INHALE ×2 (07:32→19:53)
--- NOTE | 2023-11-06 08:35 | PM.CCPN ---
Subjective Subjective Date of Service: 11/06/23 Interval History: 62-year-old gentleman with underlying HIV on HAART, hep C, COPD admitted on 10/02/2023 with acute hypoxic respiratory failure secondary to influenza with superimposed bacterial superinfection requiring intubation, pressor, and ventilatory support. Cultures are negative to date. Shock component has resolved. Now with abdominal distention secondary to ileus versus SBO, evaluated by general surgeon and deemed to underlying ileus. Extubated 10/13/2023. On 10/14/2023 with an aspiration event resulting in refractory hypoxia requiring emergent intubation and ventilatory support. Post tracheostomy and gastrostomy on 10/21/2023. Now with significant critical illness myopathy. No events overnight. Creatinine and BUN are improving. Critical Care Time (minutes): 60 Physical Exam Vital Signs: Vital Signs: Last Vital Signs Temp 97.4 F 11/06/23 07:54 Pulse 67 11/06/23 07:58 Resp 24 H 11/06/23 07:58 BP 110/76 11/06/23 07:58 Pulse Ox 98 11/06/23 07:58 O2 Del Method Mechanical Ventil ation 11/06/23 07:58 O2 Flow Rate 30 10/31/23 19:00 FiO2 30 11/06/23 07:58 BMI result Body Mass Index 24.1 Const: General: no acute distress, alert and awake Eyes: Sclerae: sclerae normal EOM: EOMs intact bilaterally Neck: Neck: Yes no lymphadenopathy and Yes tracheostomy present (on vent) Resp: Effort & Inspection: normal respiratory effort and no respiratory distress Auscultation: clear to auscultation bilaterally Cardio: Rate: regular rate Rhythm: regular rhythm Heart sounds: no gallops, no murmurs and no rubs GI: Inspection: Yes G-tube present Palpation (GI): Soft to palpation and Other GI palpation findings present ( Nontender) Auscultation: normal bowel sounds Extrem: General: No clubbing, No cyanosis and Yes edema (1+ bilateral) Objective Data Labs 11/06/23 04:50 11/06/23 04:50 Labs: Laboratory Results - last 24 hr 11/05/23 11/05/23 11/05/23 11:08 17:24 23:36 WBC RBC Hgb Hct MCV MCH MCHC RDW Plt Count MPV Immature Gran % (Auto) Neut % (Auto) Lymph % (Auto) [place] % (Auto) Eos % (Auto) Baso % (Auto) Lymph # (Auto) [place] # (Auto) Eos # (Auto) Baso # (Auto) Abs Immat Gran (auto) Absolute Neuts (auto) Absolute Nucleated RBC Nucleated RBC % (auto) VBG pH VBG pCO2 VBG pO2 VBG HCO3 VBG O2 Saturation VBG Base Excess Sodium Potassium Chloride Carbon Dioxide Anion Gap BUN Creatinine Estim Creat Clear Calc Estimated GFR POC Glucose 133 H 157 H 150 H Random Glucose Calcium Phosphorus Magnesium Albumin Blood Type Antibody Screen Crossmatch ([facility]) 11/06/23 11/06/23 11/06/23 04:48 04:50 05:34 WBC 5.6 RBC 2.76 L Hgb 7.0 L* Hct 21.2 L MCV 76.8 L MCH 25.4 L MCHC 33.0 RDW 23.4 H Plt Count 187 MPV 10.4 Immature Gran % (Auto) 0.4 Neut % (Auto) 71.4 Lymph % (Auto) 15.8 L [place] % (Auto) 9.7 Eos % (Auto) 2.5 Baso % (Auto) 0.2 Lymph # (Auto) 0.9 L [place] # (Auto) 0.5 Eos # (Auto) 0.1 Baso # (Auto) 0.0 Abs Immat Gran (auto) 0.02 Absolute Neuts (auto) 4.0 Absolute Nucleated RBC 0.000 Nucleated RBC % (auto) 0.0 VBG pH 7.45 H VBG pCO2 31 VBG pO2 37 VBG HCO3 22 VBG O2 Saturation 62.0 VBG Base Excess -1.2 Sodium 142 Potassium 4.1 Chloride 107 Carbon Dioxide 21 L Anion Gap 18 BUN 147 H Creatinine 5.03 H* Estim Creat Clear Calc 15.0 Estimated GFR 12 POC Glucose Random Glucose 169 H Calcium 9.3 Phosphorus 5.4 H Magnesium 2.5 Albumin 3.9 Blood Type O Positive Antibody Screen NEGATIVE Crossmatch ([facility]) See Detail Microbiology Microbiology Results: Microbiology 10/02/23 06:40 Sputum - Suctioned Direct Acid Fast Bacilli Smear - Final 10/02/23 03:11 Blood - Central Line Blood Culture - Final No growth after 5 days. 10/02/23 03:11 Blood - Central Line Blood Culture - Final Coag negative Staphylococcus 10/02/23 06:40 Sputum - Suctioned Gram Stain - Final 10/02/23 06:40 Sputum - Suctioned Sputum Culture - Final 10/02/23 06:40 Urine Catheterized - Miguel Catheter Urine Culture - Final No growth. Progress Note: A&P Assessment and plan (1) Status post tracheostomy: Status: Acute (2) Critical illness myopathy: Status: Acute (3) AMBER (acute kidney injury): Status: Acute (4) HIV (human immunodeficiency virus infection): Status: Acute (5) Acute hypoxic respiratory failure: Status: Acute (6) Hepatitis C: Status: Acute (7) COPD (chronic obstructive pulmonary disease): Status: Acute Plan Assessment: 62-year-old gentleman with underlying HIV on HAART, hep C admitted with acute hypoxic respiratory failure secondary to bacterial superinfection of underlying influenza now requiring ventilatory support Plan: Neuro: No acute issues. Cardiac: No acute issues. Pulmonary: Acute hypoxic respiratory failure secondary to bacterial superinfection of underlying influenza, improved and extubated on 10/13/2023. However with development of recurrent aspirations requiring re-intubation on 10/14/2023. Now status post tracheostomy/gastrostomy on 10/21/2023. Continue to titrate off ventilatory support as tolerated. Renal: Acute kidney injury, improving. Non oliguric. May require hemodialysis. Nephrology service care appreciated. Endo: No acute issues. GI: No acute issues. ID: No acute issues. Heme/Onc: No acute issues. Psych: No acute issues. Miscellaneous: Critical illness myopathy, continue with PT. Prophylaxis: Heparin Diet: Tube feeds Critical care time spent: 60 minutes Quality Stroke Does the patient have a stroke diagnosis?: No VTE Prior VTE?: No VTE Risk Level:: Medical - moderate - high VTE Device Contraindication: N/A - Device Ordered VTE Drug Contraindication: N/A - Med Ordered
[2023-11-06] MEDS: HYDROmorphone HCl 0.5 MG/0.5 ML SYRINGE IVPUSH ×2 (10:53→20:52)
[2023-11-06 12:13] LABS: Glucose, Whole Blood 161 mg/dL (60-115)
[2023-11-06] MEDS: dexmedeTOMIDidine HCL/NS 400 MCG/100 ML INFUS..BTL 26.36 MCG IVCONT ×3 (13:00→20:33)
[2023-11-06] MEDS: Heparin Sodium,Porcine 5,000 UNIT/ML VIAL 5000 UNIT SUBCUT (15:43)
[2023-11-06 18:17] LABS: Glucose, Whole Blood 156 mg/dL (60-115)
[2023-11-06 19:51] LABS: Hematocrit 26.9 % (42.0-52.0); Hemoglobin 8.9 g/dl (14.0-18.0); Mean Corpuscular HGB Conc 33.1 g/dl (31.0-36.0); Mean Corpuscular Hemoglobin 26.3 pg (27.0-33.0); Mean Corpuscular Volume 79.6 fL (80.0-98.0); Mean Platelet Volume 11.5 fL (9.4-12.4); Platelet Count 201 X10*3/uL (160-400); Red Blood Count 3.38 X10*6/uL (4.60-5.80); Red Cell Distribution Width 22.8 % (11.0-16.0); White Blood Count 10.2 X10*3/uL (4.8-10.8)
[2023-11-06 23:53] LABS: Glucose, Whole Blood 167 mg/dL (60-115)
[2023-11-07] VITALS (32 sets, daily range): BP systolic 96–172; BP diastolic 63–110; PULSE 70–120; RESP 13–35; TEMP 35.1–39.1; O2SAT 87–97; BMI 23.8
[2023-11-07] MEDS: 0.9 % Sodium Chloride Flush 10 ML SYRINGE IVFLUSH ×3 (00:01→15:09)
[2023-11-07] MEDS: dexmedeTOMIDidine HCL/NS 400 MCG/100 ML INFUS..BTL 19.33 MCG IVCONT ×2 (00:35→10:02)
[2023-11-07] MEDS: HYDROmorphone HCl 0.5 MG/0.5 ML SYRINGE IVPUSH ×3 (02:51→19:51)
[2023-11-07 04:51] LABS: VBG Base Excess -2.8 mmol/L; VBG HCO3 21 mmol/L (22-26); VBG pCO2 36 mmHg; VBG pH 7.38 (7.32-7.43); VBG pO2 37 mmHg
[2023-11-07 05:01] LABS: MANUAL DIFF FLAG NO
[2023-11-07 05:03] LABS: Basophils Percent Auto 0.2 % (0-2); Eosinophils Absolute Auto 0.1 X10*3/uL (0.0-0.4); Eosinophils Percent Auto 1.3 % (0-4); Hematocrit 26.5 % (42.0-52.0); Hemoglobin 8.5 g/dl (14.0-18.0); Imm Gran Abs Auto 0.03 X10*3/uL (0.00-0.03); Imm Gran Pct Auto 0.3 % (0.0-0.4); Lymphocytes Percent Auto 10.3 % (20-40); Mean Corpuscular HGB Conc 32.1 g/dl (31.0-36.0); Mean Corpuscular Hemoglobin 25.3 pg (27.0-33.0); Mean Corpuscular Volume 78.9 fL (80.0-98.0); Mean Platelet Volume 10.9 fL (9.4-12.4); Monocytes Absolute Auto 0.9 X10*3/uL (0.1-1.2); Neutrophils Absolute Auto 7.2 x10*3/uL (2.0-8.3); Neutrophils Percent Auto 77.9 % (45-73); Platelet Count 182 X10*3/uL (160-400); Red Blood Count 3.36 X10*6/uL (4.60-5.80); Red Cell Distribution Width 22.7 % (11.0-16.0); White Blood Count 9.2 X10*3/uL (4.8-10.8)
[2023-11-07 05:28] LABS: Albumin Level 3.6 g/dL (3.5-5.0); Anion Gap 16 (12-20); Carbon Dioxide 20 mmol/L (22-29); Chloride 111 mmol/L (96-108); Creatinine Clr Calc Pharmacy 17.3; Estimated Glomerular Filt Rate 14; Glucose Random 158 mg/dL (60-115); Magnesium 2.5 mg/dL (1.6-2.6); Phosphorus 5.9 mg/dL (2.7-4.5); Potassium 4.4 mmol/L (3.3-5.1); Sodium 143 mmol/L (135-145)
[2023-11-07] MEDS: Insulin Lispro 100 UNIT/ML 3 ML VIAL SUBCUT ×3 (05:31→13:10)
[2023-11-07] MEDS: dexmedeTOMIDidine HCL/NS 400 MCG/100 ML INFUS..BTL 22.85 MCG IVCONT (05:32)
[2023-11-07 05:33] LABS: Blood Urea Nitrogen 154 mg/dL (9-16)
[2023-11-07 05:44] LABS: Venous Blood Gas Refer to POC result
[2023-11-07] MEDS: Tobramycin Sulfate 80 MG/2 ML VIAL 300 MG INHALE (08:01)
[2023-11-07] MEDS: Chlorhexidine Gluc Oral Rinse 15 ML MOUTHWASH BUCCAL ×3 (08:15→20:27)
[2023-11-07] MEDS: QUEtiapine Fumarate 25 MG TABLET PO ×2 (08:15→20:27)
[2023-11-07] MEDS: Metoprolol Tartrate 50 MG TABLET PO ×3 (08:15→20:27)
[2023-11-07] MEDS: Nystatin Powder 15 GM BOTTLE 1 APPL TOPICAL ×2 (08:19→21:36)
--- NOTE | 2023-11-07 08:54 | PM.CCPN ---
Subjective Subjective Date of Service: 11/07/23 Interval History: 62-year-old gentleman with underlying HIV on HAART, hep C, COPD admitted on 10/02/2023 with acute hypoxic respiratory failure secondary to influenza with superimposed bacterial superinfection requiring intubation, pressor, and ventilatory support. Cultures are negative to date. Shock component has resolved. Now with abdominal distention secondary to ileus versus SBO, evaluated by general surgeon and deemed to underlying ileus. Extubated 10/13/2023. On 10/14/2023 with an aspiration event resulting in refractory hypoxia requiring emergent intubation and ventilatory support. Post tracheostomy and gastrostomy on 10/21/2023. Now with significant critical illness myopathy. No events overnight. Critical Care Time (minutes): 60 Physical Exam Vital Signs: Vital Signs: Last Vital Signs Temp 98.7 F 11/07/23 03:40 Pulse 120 H 11/07/23 08:02 Resp 35 H 11/07/23 08:02 BP 172/110 H 11/07/23 07:57 Pulse Ox 89 L 11/07/23 07:57 O2 Del Method Mechanical Ventil ation 11/07/23 07:57 O2 Flow Rate 30 10/31/23 19:00 FiO2 30 11/07/23 08:02 BMI result Body Mass Index 23.8 Const: General: no acute distress, alert and awake Eyes: Sclerae: sclerae normal EOM: EOMs intact bilaterally Neck: Neck: Yes no lymphadenopathy and Yes tracheostomy present Resp: Auscultation: crackles bilateral Cardio: Rate: regular rate Rhythm: regular rhythm Heart sounds: no gallops, no murmurs and no rubs GI: Inspection: Yes G-tube present Palpation (GI): Soft to palpation and Other GI palpation findings present ( Nontender) Auscultation: normal bowel sounds Extrem: General: No clubbing, No cyanosis and Yes edema (1+ bilateral) Objective Data Labs 11/07/23 04:45 11/07/23 04:45 Labs: Laboratory Results - last 24 hr 11/06/23 11/06/23 11/06/23 05:34 12:00 18:11 WBC RBC Hgb Hct MCV MCH MCHC RDW Plt Count MPV Immature Gran % (Auto) Neut % (Auto) Lymph % (Auto) [place] % (Auto) Eos % (Auto) Baso % (Auto) Lymph # (Auto) [place] # (Auto) Eos # (Auto) Baso # (Auto) Abs Immat Gran (auto) Absolute Neuts (auto) Absolute Nucleated RBC Nucleated RBC % (auto) VBG pH VBG pCO2 VBG pO2 VBG HCO3 VBG O2 Saturation VBG Base Excess Sodium Potassium Chloride Carbon Dioxide Anion Gap BUN Creatinine Estim Creat Clear Calc Estimated GFR POC Glucose 161 H 156 H Random Glucose Calcium Phosphorus Magnesium Albumin Crossmatch (AHG) See Detail 11/06/23 11/06/23 11/07/23 19:31 23:46 04:43 WBC 10.2 RBC 3.38 L D Hgb 8.9 L D Hct 26.9 L D MCV 79.6 L MCH 26.3 L MCHC 33.1 RDW 22.8 H Plt Count 201 MPV 11.5 Immature Gran % (Auto) Neut % (Auto) Lymph % (Auto) [place] % (Auto) Eos % (Auto) Baso % (Auto) Lymph # (Auto) [place] # (Auto) Eos # (Auto) Baso # (Auto) Abs Immat Gran (auto) Absolute Neuts (auto) Absolute Nucleated RBC 0.000 Nucleated RBC % (auto) 0.0 VBG pH 7.38 VBG pCO2 36 VBG pO2 37 VBG HCO3 21 L VBG O2 Saturation 62.0 VBG Base Excess -2.8 Sodium Potassium Chloride Carbon Dioxide Anion Gap BUN Creatinine Estim Creat Clear Calc Estimated GFR POC Glucose 167 H Random Glucose Calcium Phosphorus Magnesium Albumin Crossmatch (AHG) 11/07/23 04:45 WBC 9.2 RBC 3.36 L Hgb 8.5 L Hct 26.5 L MCV 78.9 L MCH 25.3 L MCHC 32.1 RDW 22.7 H Plt Count 182 MPV 10.9 Immature Gran % (Auto) 0.3 Neut % (Auto) 77.9 H Lymph % (Auto) 10.3 L [place] % (Auto) 10.0 Eos % (Auto) 1.3 Baso % (Auto) 0.2 Lymph # (Auto) 1.0 L [place] # (Auto) 0.9 Eos # (Auto) 0.1 Baso # (Auto) 0.0 Abs Immat Gran (auto) 0.03 Absolute Neuts (auto) 7.2 Absolute Nucleated RBC 0.000 Nucleated RBC % (auto) 0.0 VBG pH VBG pCO2 VBG pO2 VBG HCO3 VBG O2 Saturation VBG Base Excess Sodium 143 Potassium 4.4 Chloride 111 H Carbon Dioxide 20 L Anion Gap 16 BUN 154 H Creatinine 4.36 H* Estim Creat Clear Calc 17.3 Estimated GFR 14 POC Glucose Random Glucose 158 H Calcium 9.0 Phosphorus 5.9 H Magnesium 2.5 Albumin 3.6 Crossmatch (AHG) Microbiology Microbiology Results: Microbiology 10/02/23 06:40 Sputum - Suctioned Direct Acid Fast Bacilli Smear - Final 10/02/23 03:11 Blood - Central Line Blood Culture - Final No growth after 5 days. 10/02/23 03:11 Blood - Central Line Blood Culture - Final Coag negative Staphylococcus 10/02/23 06:40 Sputum - Suctioned Gram Stain - Final 10/02/23 06:40 Sputum - Suctioned Sputum Culture - Final 10/02/23 06:40 Urine Catheterized - Miguel Catheter Urine Culture - Final No growth. Progress Note: A&P Assessment and plan (1) Status post tracheostomy: Status: Acute (2) Critical illness myopathy: Status: Acute (3) AMBER (acute kidney injury): Status: Acute (4) HIV (human immunodeficiency virus infection): Status: Acute (5) Acute hypoxic respiratory failure: Status: Acute (6) Hepatitis C: Status: Acute (7) COPD (chronic obstructive pulmonary disease): Status: Acute Plan Assessment: 62-year-old gentleman with underlying HIV on HAART, hep C admitted with acute hypoxic respiratory failure secondary to bacterial superinfection of underlying influenza now requiring ventilatory support Plan: Neuro: No acute issues. Cardiac: No acute issues. Pulmonary: Acute hypoxic respiratory failure secondary to bacterial superinfection of underlying influenza, improved and extubated on 10/13/2023. However with development of recurrent aspirations requiring re-intubation on 10/14/2023. Now status post tracheostomy/gastrostomy on 10/21/2023. Continue to titrate off ventilatory support as tolerated. Renal: Acute kidney injury, improving. Non oliguric. May require hemodialysis. Nephrology service care appreciated. Endo: No acute issues. GI: No acute issues. ID: No acute issues. Heme/Onc: No acute issues. Psych: No acute issues. Miscellaneous: Critical illness myopathy, continue with PT. Prophylaxis: Heparin Diet: Tube feeds Critical care time spent: 60 minutes Quality Stroke Does the patient have a stroke diagnosis?: No VTE Prior VTE?: No VTE Risk Level:: Medical - moderate - high VTE Device Contraindication: N/A - Device Ordered VTE Drug Contraindication: N/A - Med Ordered
[2023-11-07 11:46] LABS: Glucose, Whole Blood 153 mg/dL (60-115)
[2023-11-07] MEDS: Heparin Sodium,Porcine 5,000 UNIT/ML VIAL 5000 UNIT SUBCUT (15:08)
[2023-11-07] MEDS: dexmedeTOMIDidine HCL/NS 400 MCG/100 ML INFUS..BTL 26.36 MCG IVCONT ×3 (15:31→22:52)
[2023-11-07 17:59] LABS: Glucose, Whole Blood 150 mg/dL (60-115)
--- NOTE | 2023-11-07 18:05 | PC.RT ---
RT called for pt cuff leak. Cuff pressure noted 20 cmh2o, 2 cc air added sealed at this time with cuff pressure [id number]. Pt noted to be awake, agitated, rr 30-36. RN aware.
[2023-11-07] MEDS: Acetaminophen Oral Liquid 650 MG/20.3 ML SOLUTION 975 MG PO (20:27)
[2023-11-07 21:11] LABS: MANUAL DIFF FLAG NO
[2023-11-07 21:13] LABS: Basophils Percent Auto 0.2 % (0-2); Eosinophils Absolute Auto 0.1 X10*3/uL (0.0-0.4); Eosinophils Percent Auto 1.3 % (0-4); Hematocrit 25.3 % (42.0-52.0); Hemoglobin 8.4 g/dl (14.0-18.0); Imm Gran Abs Auto 0.04 X10*3/uL (0.00-0.03); Imm Gran Pct Auto 0.4 % (0.0-0.4); Lymphocytes Absolute Auto 1.1 X10*3/uL (1.2-4.9); Lymphocytes Percent Auto 11.9 % (20-40); Mean Corpuscular HGB Conc 33.2 g/dl (31.0-36.0); Mean Corpuscular Hemoglobin 25.7 pg (27.0-33.0); Mean Corpuscular Volume 77.4 fL (80.0-98.0); Mean Platelet Volume 10.2 fL (9.4-12.4); Monocytes Absolute Auto 0.8 X10*3/uL (0.1-1.2); Monocytes Percent Auto 8.3 % (2-11); Neutrophils Absolute Auto 7.2 x10*3/uL (2.0-8.3); Neutrophils Percent Auto 77.9 % (45-73); Platelet Count 167 X10*3/uL (160-400); Red Blood Count 3.27 X10*6/uL (4.60-5.80); Red Cell Distribution Width 22.7 % (11.0-16.0); White Blood Count 9.3 X10*3/uL (4.8-10.8)
[2023-11-07 21:25] LABS: Lactic Acid 1.2 mmol/L (0.5-2.0)
[2023-11-07 23:24] LABS: Glucose, Whole Blood 184 mg/dL (60-115)
[2023-11-08] VITALS (33 sets, daily range): BP systolic 94–181; BP diastolic 55–103; PULSE 66–120; RESP 12–31; TEMP 34.8–39.9; O2SAT 90–100; BMI 23.1
[2023-11-08] MEDS: Insulin Lispro 100 UNIT/ML 3 ML VIAL SUBCUT ×3 (00:36→17:21)
[2023-11-08] MEDS: 0.9 % Sodium Chloride Flush 10 ML SYRINGE IVFLUSH ×3 (00:37→17:22)
[2023-11-08] MEDS: dexmedeTOMIDidine HCL/NS 400 MCG/100 ML INFUS..BTL 26.36 MCG IVCONT ×5 (02:36→20:41)
[2023-11-08] MEDS: Heparin Sodium,Porcine 5,000 UNIT/ML VIAL 5000 UNIT SUBCUT ×2 (03:50→17:20)
[2023-11-08] MEDS: HYDROmorphone HCl 0.5 MG/0.5 ML SYRINGE IVPUSH ×4 (03:50→20:21)
[2023-11-08 05:45] LABS: VBG Base Excess -4.9 mmol/L; VBG HCO3 18 mmol/L (22-26); VBG pCO2 30 mmHg; VBG pO2 45 mmHg
[2023-11-08 05:53] LABS: Venous Blood Gas Refer to POC result
[2023-11-08 05:56] LABS: Glucose, Whole Blood 149 mg/dL (60-115)
[2023-11-08 06:16] LABS: MANUAL DIFF FLAG NO
[2023-11-08 06:27] LABS: Basophils Percent Auto 0.2 % (0-2); Eosinophils Absolute Auto 0.2 X10*3/uL (0.0-0.4); Eosinophils Percent Auto 2.4 % (0-4); Hemoglobin 8.5 g/dl (14.0-18.0); Imm Gran Abs Auto 0.04 X10*3/uL (0.00-0.03); Imm Gran Pct Auto 0.5 % (0.0-0.4); Lymphocytes Absolute Auto 1.4 X10*3/uL (1.2-4.9); Lymphocytes Percent Auto 16.1 % (20-40); Mean Corpuscular HGB Conc 32.7 g/dl (31.0-36.0); Mean Corpuscular Hemoglobin 25.7 pg (27.0-33.0); Mean Corpuscular Volume 78.5 fL (80.0-98.0); Mean Platelet Volume 11.2 fL (9.4-12.4); Monocytes Absolute Auto 0.9 X10*3/uL (0.1-1.2); Monocytes Percent Auto 10.4 % (2-11); Neutrophils Percent Auto 70.4 % (45-73); Platelet Count 171 X10*3/uL (160-400); Red Blood Count 3.31 X10*6/uL (4.60-5.80); Red Cell Distribution Width 22.7 % (11.0-16.0); White Blood Count 8.5 X10*3/uL (4.8-10.8)
[2023-11-08 06:43] LABS: Albumin Level 3.4 g/dL (3.5-5.0); Anion Gap 17 (12-20); Calcium 8.7 mg/dL (8.4-10.2); Carbon Dioxide 18 mmol/L (22-29); Chloride 116 mmol/L (96-108); Creatinine Clr Calc Pharmacy 19.5; Estimated Glomerular Filt Rate 16; Glucose Random 168 mg/dL (60-115); Magnesium 2.4 mg/dL (1.6-2.6); Phosphorus 4.9 mg/dL (2.7-4.5); Potassium 4.1 mmol/L (3.3-5.1); Sodium 147 mmol/L (135-145)
[2023-11-08 06:49] LABS: Blood Urea Nitrogen 146 mg/dL (9-16)
[2023-11-08] MEDS: Albumin Human 25 % 100 ML IV ×2 (07:59→13:46)
[2023-11-08] MEDS: Metoprolol Tartrate 50 MG TABLET PO ×3 (09:17→20:21)
[2023-11-08] MEDS: lamoTRIgine 25 MG TABLET 50 MG PO ×2 (09:17→20:21)
[2023-11-08] MEDS: Chlorhexidine Gluc Oral Rinse 15 ML MOUTHWASH BUCCAL ×3 (09:17→20:21)
[2023-11-08] MEDS: QUEtiapine Fumarate 25 MG TABLET PO ×2 (09:17→20:20)
[2023-11-08] MEDS: dexmedeTOMIDidine HCL/NS 400 MCG/100 ML INFUS..BTL 15.82 MCG IVCONT (09:51)
[2023-11-08] MEDS: Nystatin Powder 15 GM BOTTLE 1 APPL TOPICAL ×2 (09:52→21:32)
--- NOTE | 2023-11-08 09:59 | PM.PNNEP ---
Subjective Subjective Date of Service: 11/08/23 Interval history: Events noted. All recent data reviewed. Serum creatinine improving Physical Exam Vital Signs: Vital Signs: Last Vital Signs Temp 100.2 F 11/08/23 07:00 Pulse 79 11/08/23 09:00 Resp 31 H 11/08/23 09:00 BP 112/78 11/08/23 09:00 Pulse Ox 92 11/08/23 09:00 O2 Del Method Mechanical Ventil ation 11/08/23 09:00 O2 Flow Rate 35 11/08/23 00:50 FiO2 35 11/08/23 09:00 BMI result Body Mass Index 23.1 Const: Other: Trach + General: no acute distress Resp: Auscultation: diminished lung sounds Cardio: Rate: regular rate GI: Other: G tube + Skin: General skin exam: no rashes or lesions noted Neuro: Other: On Vent Extrem: General: Yes edema Objective Data Labs 11/08/23 05:32 11/08/23 05:32 Labs: Laboratory Results - last 24 hr 11/07/23 11/07/23 11/07/23 11:43 17:55 21:05 WBC 9.3 RBC 3.27 L Hgb 8.4 L Hct 25.3 L MCV 77.4 L MCH 25.7 L MCHC 33.2 RDW 22.7 H Plt Count 167 MPV 10.2 Immature Gran % (Auto) 0.4 Neut % (Auto) 77.9 H Lymph % (Auto) 11.9 L [place] % (Auto) 8.3 Eos % (Auto) 1.3 Baso % (Auto) 0.2 Lymph # (Auto) 1.1 L [place] # (Auto) 0.8 Eos # (Auto) 0.1 Baso # (Auto) 0.0 Abs Immat Gran (auto) 0.04 H Absolute Neuts (auto) 7.2 Absolute Nucleated RBC 0.000 Nucleated RBC % (auto) 0.0 VBG pH VBG pCO2 VBG pO2 VBG HCO3 VBG O2 Saturation VBG Base Excess Sodium Potassium Chloride Carbon Dioxide Anion Gap BUN Creatinine Estim Creat Clear Calc Estimated GFR POC Glucose 153 H 150 H Random Glucose Lactic Acid 1.2 Calcium Phosphorus Magnesium Albumin 11/07/23 11/08/23 11/08/23 23:18 05:32 05:37 WBC 8.5 RBC 3.31 L Hgb 8.5 L Hct 26.0 L MCV 78.5 L MCH 25.7 L MCHC 32.7 RDW 22.7 H Plt Count 171 MPV 11.2 Immature Gran % (Auto) 0.5 H Neut % (Auto) 70.4 Lymph % (Auto) 16.1 L [place] % (Auto) 10.4 Eos % (Auto) 2.4 Baso % (Auto) 0.2 Lymph # (Auto) 1.4 [place] # (Auto) 0.9 Eos # (Auto) 0.2 Baso # (Auto) 0.0 Abs Immat Gran (auto) 0.04 H Absolute Neuts (auto) 6.0 Absolute Nucleated RBC 0.000 Nucleated RBC % (auto) 0.0 VBG pH 7.40 VBG pCO2 30 VBG pO2 45 VBG HCO3 18 L VBG O2 Saturation 76.0 VBG Base Excess -4.9 Sodium 147 H Potassium 4.1 Chloride 116 H Carbon Dioxide 18 L Anion Gap 17 BUN 146 H Creatinine 3.86 H Estim Creat Clear Calc 19.5 Estimated GFR 16 POC Glucose 184 H Random Glucose 168 H Lactic Acid Calcium 8.7 Phosphorus 4.9 H Magnesium 2.4 Albumin 3.4 L 11/08/23 05:53 WBC RBC Hgb Hct MCV MCH MCHC RDW Plt Count MPV Immature Gran % (Auto) Neut % (Auto) Lymph % (Auto) [place] % (Auto) Eos % (Auto) Baso % (Auto) Lymph # (Auto) [place] # (Auto) Eos # (Auto) Baso # (Auto) Abs Immat Gran (auto) Absolute Neuts (auto) Absolute Nucleated RBC Nucleated RBC % (auto) VBG pH VBG pCO2 VBG pO2 VBG HCO3 VBG O2 Saturation VBG Base Excess Sodium Potassium Chloride Carbon Dioxide Anion Gap BUN Creatinine Estim Creat Clear Calc Estimated GFR POC Glucose 149 H Random Glucose Lactic Acid Calcium Phosphorus Magnesium Albumin Microbiology Microbiology Results: Microbiology 10/02/23 06:40 Sputum - Suctioned Direct Acid Fast Bacilli Smear - Final 10/02/23 03:11 Blood - Central Line Blood Culture - Final No growth after 5 days. 10/02/23 03:11 Blood - Central Line Blood Culture - Final Coag negative Staphylococcus 10/02/23 06:40 Sputum - Suctioned Gram Stain - Final 10/02/23 06:40 Sputum - Suctioned Sputum Culture - Final 10/02/23 06:40 Urine Catheterized - Miguel Catheter Urine Culture - Final No growth. Procedures Date of Service Date of Service: 11/08/23 Assessment & Plan Assessment and plan (1) AMBER (acute kidney injury): Status: Acute Plan Acute Kidney Injury due to tubular injury UO good; No need for HD now Renal function improving C/W rest of current supportive care Labs AM; Shall closely follow up Progress Note: Quality Stroke Does the patient have a stroke diagnosis?: No
--- NOTE | 2023-11-08 10:36 | P.PNCC_ITS ---
Subjective Subjective Date of Service: 11/08/23 Interval History: 62-year-old gentleman with underlying HIV on HAART, hep C, COPD admitted on 10/02/2023 with acute hypoxic respiratory failure secondary to influenza with superimposed bacterial superinfection requiring intubation, pressor, and ventilatory support. Cultures are negative to date. Shock component has resolved. Now with abdominal distention secondary to ileus versus SBO, evaluated by general surgeon and deemed to underlying ileus. Extubated 10/13/2023. On 10/14/2023 with an aspiration event resulting in refractory hypoxia requiring emergent intubation and ventilatory support. Post tracheostomy and gastrostomy on 10/21/2023. Now with significant critical illness myopathy. No events overnight. Renal function improving. Critical Care Time (minutes): 60 Physical Exam 2 Vital Signs: Vital Signs: Last Vital Signs Temp 100.2 F 11/08/23 07:00 Pulse 73 11/08/23 10:00 Resp 19 11/08/23 10:00 BP 113/72 11/08/23 10:00 Pulse Ox 92 11/08/23 10:00 O2 Del Method Mechanical Ventil ation 11/08/23 10:00 O2 Flow Rate 35 11/08/23 00:50 FiO2 35 11/08/23 10:00 BMI result Body Mass Index 23.1 Const: General: no acute distress, alert and awake Eyes: Sclerae: sclerae normal EOM: EOMs intact bilaterally Neck: Neck: Yes tracheostomy present Resp: Effort & Inspection: normal respiratory effort and no respiratory distress Auscultation: clear to auscultation bilaterally Cardio: Rate: regular rate Rhythm: regular rhythm Heart sounds: no gallops, no murmurs and no rubs GI: Inspection: Yes G-tube present Palpation (GI): Soft to palpation and Other GI palpation findings present ( Nontender) Auscultation: normal bowel sounds Extrem: General: Yes no pedal edema, No clubbing and No cyanosis Objective Data Labs 11/08/23 05:32 11/08/23 05:32 Labs: Laboratory Results - last 24 hr 11/07/23 11/07/23 11/07/23 11:43 17:55 21:05 WBC 9.3 RBC 3.27 L Hgb 8.4 L Hct 25.3 L MCV 77.4 L MCH 25.7 L MCHC 33.2 RDW 22.7 H Plt Count 167 MPV 10.2 Immature Gran % (Auto) 0.4 Neut % (Auto) 77.9 H Lymph % (Auto) 11.9 L [place] % (Auto) 8.3 Eos % (Auto) 1.3 Baso % (Auto) 0.2 Lymph # (Auto) 1.1 L [place] # (Auto) 0.8 Eos # (Auto) 0.1 Baso # (Auto) 0.0 Abs Immat Gran (auto) 0.04 H Absolute Neuts (auto) 7.2 Absolute Nucleated RBC 0.000 Nucleated RBC % (auto) 0.0 VBG pH VBG pCO2 VBG pO2 VBG HCO3 VBG O2 Saturation VBG Base Excess Sodium Potassium Chloride Carbon Dioxide Anion Gap BUN Creatinine Estim Creat Clear Calc Estimated GFR POC Glucose 153 H 150 H Random Glucose Lactic Acid 1.2 Calcium Phosphorus Magnesium Albumin 11/07/23 11/08/23 11/08/23 23:18 05:32 05:37 WBC 8.5 RBC 3.31 L Hgb 8.5 L Hct 26.0 L MCV 78.5 L MCH 25.7 L MCHC 32.7 RDW 22.7 H Plt Count 171 MPV 11.2 Immature Gran % (Auto) 0.5 H Neut % (Auto) 70.4 Lymph % (Auto) 16.1 L [place] % (Auto) 10.4 Eos % (Auto) 2.4 Baso % (Auto) 0.2 Lymph # (Auto) 1.4 [place] # (Auto) 0.9 Eos # (Auto) 0.2 Baso # (Auto) 0.0 Abs Immat Gran (auto) 0.04 H Absolute Neuts (auto) 6.0 Absolute Nucleated RBC 0.000 Nucleated RBC % (auto) 0.0 VBG pH 7.40 VBG pCO2 30 VBG pO2 45 VBG HCO3 18 L VBG O2 Saturation 76.0 VBG Base Excess -4.9 Sodium 147 H Potassium 4.1 Chloride 116 H Carbon Dioxide 18 L Anion Gap 17 BUN 146 H Creatinine 3.86 H Estim Creat Clear Calc 19.5 Estimated GFR 16 POC Glucose 184 H Random Glucose 168 H Lactic Acid Calcium 8.7 Phosphorus 4.9 H Magnesium 2.4 Albumin 3.4 L 11/08/23 05:53 WBC RBC Hgb Hct MCV MCH MCHC RDW Plt Count MPV Immature Gran % (Auto) Neut % (Auto) Lymph % (Auto) [place] % (Auto) Eos % (Auto) Baso % (Auto) Lymph # (Auto) [place] # (Auto) Eos # (Auto) Baso # (Auto) Abs Immat Gran (auto) Absolute Neuts (auto) Absolute Nucleated RBC Nucleated RBC % (auto) VBG pH VBG pCO2 VBG pO2 VBG HCO3 VBG O2 Saturation VBG Base Excess Sodium Potassium Chloride Carbon Dioxide Anion Gap BUN Creatinine Estim Creat Clear Calc Estimated GFR POC Glucose 149 H Random Glucose Lactic Acid Calcium Phosphorus Magnesium Albumin Microbiology Microbiology Results: Microbiology 10/02/23 06:40 Sputum - Suctioned Direct Acid Fast Bacilli Smear - Final 10/02/23 03:11 Blood - Central Line Blood Culture - Final No growth after 5 days. 10/02/23 03:11 Blood - Central Line Blood Culture - Final Coag negative Staphylococcus 10/02/23 06:40 Sputum - Suctioned Gram Stain - Final 10/02/23 06:40 Sputum - Suctioned Sputum Culture - Final 10/02/23 06:40 Urine Catheterized - Miguel Catheter Urine Culture - Final No growth. Progress Note: A&P Assessment and plan (1) Status post tracheostomy: Status: Acute (2) Critical illness myopathy: Status: Acute (3) AMBER (acute kidney injury): Status: Acute (4) HIV (human immunodeficiency virus infection): Status: Acute (5) Hepatitis C: Status: Acute (6) COPD (chronic obstructive pulmonary disease): Status: Acute (7) Acute hypoxic respiratory failure: Status: Acute Plan Assessment: 62-year-old gentleman with underlying HIV on HAART, hep C admitted with acute hypoxic respiratory failure secondary to bacterial superinfection of underlying influenza now requiring ventilatory support Plan: Neuro: No acute issues. Cardiac: No acute issues. Pulmonary: Acute hypoxic respiratory failure secondary to bacterial superinfection of underlying influenza, improved and extubated on 10/13/2023. However with development of recurrent aspirations requiring re-intubation on 10/14/2023. Now status post tracheostomy/gastrostomy on 10/21/2023. Continue to titrate off ventilatory support as tolerated. Renal: Acute kidney injury, improving. Non oliguric. May require hemodialysis. Nephrology service care appreciated. Endo: No acute issues. GI: No acute issues. ID: No acute issues. Heme/Onc: No acute issues. Psych: No acute issues. Miscellaneous: Critical illness myopathy, continue with PT. Prophylaxis: Heparin Diet: Tube feeds Critical care time spent: 60 minutes Quality Stroke Does the patient have a stroke diagnosis?: No VTE Prior VTE?: No VTE Risk Level:: Medical - moderate - high VTE Device Contraindication: N/A - Device Ordered VTE Drug Contraindication: N/A - Med Ordered
--- NOTE | 2023-11-08 10:39 | P.CDIM_ITS ---
PROVIDER RESPONSE TEXT: To clarify, the appropriate diagnosis supported by the clinical indicators: Pressure Injury Stage 2 left Sacrum QUERY TEXT: PHYSICIAN'S DOCUMENTATION REQUEST Date of Query: 11/08/2023 08:13 AM EDT Patient Name: Earl Rincon Admit Date: 10/02/2023 Dear Devan Allen, A review of the medical record indicates additional documentation may be needed. Please review below and update the documentation accordingly. Clinical Indicators: Wound care assessment - Pressure injury left Sacrum Stage 2 - previously documented as DTI in evoluti on. small amount of serosang noted on dressing Foam dressing Based on the above, could you please provide further information regarding the ulcer/wound/injury: Pressure Injury Stage 2 left Sacrum Other Other (explain) Clinically unable to determine (explain) Thank you, Alla Nuno, CCS, CDIS Use of terms such as suspected, likely, concern for, or probable (associated with a specific diagnosi s that is being evaluated, monitored, or treated as if it exists) are acceptable and can be coded in the inpatient se tting, when documented at the time of discharge. Please use your independent medical judgment in providing your response. THIS QUERY IS PART OF THE PERMANENT MEDICAL RECORD
[2023-11-08 11:54] LABS: Glucose, Whole Blood 173 mg/dL (60-115)
[2023-11-08] MEDS: Acetaminophen Oral Liquid 650 MG/20.3 ML SOLUTION 975 MG PO (12:28)
--- NOTE | 2023-11-08 12:59 | MHC.CM.PN ---
Pt remains in ICU: showing renal recovery and will not need HD per MD. Pt required IV Precedex for aggitation managment: [facility] will need pt to be off of meds x 24 hours before they can accept (pt also needs an available bed and payor authorization) MD states this med will be d/c'd and pt will transition to crushable po meds. Pt w/elevated temp on 11/06-11/07: sputum cx sent. Clinical updates sent to [facility]. Will f/u on 11/08.
[2023-11-08 17:17] LABS: Glucose, Whole Blood 177 mg/dL (60-115)
[2023-11-09] VITALS (33 sets, daily range): BP systolic 90–185; BP diastolic 59–117; PULSE 63–117; RESP 16–27; TEMP 34.6–38.3; O2SAT 35–100; BMI 22.9
[2023-11-09] MEDS: dexmedeTOMIDidine HCL/NS 400 MCG/100 ML INFUS..BTL 26.36 MCG IVCONT ×3 (00:07→07:19)
[2023-11-09] MEDS: 0.9 % Sodium Chloride Flush 10 ML SYRINGE IVFLUSH ×3 (00:08→15:45)
[2023-11-09] MEDS: Insulin Lispro 100 UNIT/ML 3 ML VIAL SUBCUT ×3 (00:08→12:37)
[2023-11-09 00:16] LABS: Glucose, Whole Blood 159 mg/dL (60-115)
[2023-11-09] MEDS: HYDROmorphone HCl 0.5 MG/0.5 ML SYRINGE IVPUSH ×3 (00:58→13:05)
[2023-11-09] MEDS: Acetaminophen Oral Liquid 650 MG/20.3 ML SOLUTION 975 MG PO (01:39)
[2023-11-09] MEDS: QUEtiapine Fumarate 50 MG TABLET PO ×3 (02:11→20:46)
[2023-11-09] MEDS: Melatonin 3 MG TABLET 6 MG G-TUBE (03:22)
[2023-11-09] MEDS: Heparin Sodium,Porcine 5,000 UNIT/ML VIAL 5000 UNIT SUBCUT ×2 (03:23→15:39)
[2023-11-09 05:23] LABS: VBG Base Excess -3.4 mmol/L; VBG HCO3 20 mmol/L (22-26); VBG pCO2 31 mmHg; VBG pH 7.41 (7.32-7.43); VBG pO2 36 mmHg
[2023-11-09 05:34] LABS: Venous Blood Gas Refer to POC result
[2023-11-09 05:59] LABS: Glucose, Whole Blood 151 mg/dL (60-115)
[2023-11-09 06:00] LABS: MANUAL DIFF FLAG NO
[2023-11-09 06:35] LABS: Albumin Level 3.4 g/dL (3.5-5.0); Anion Gap 16 (12-20); Blood Urea Nitrogen 138 mg/dL (9-16); Calcium 8.6 mg/dL (8.4-10.2); Carbon Dioxide 19 mmol/L (22-29); Chloride 116 mmol/L (96-108); Creatinine Clr Calc Pharmacy 21.6; Estimated Glomerular Filt Rate 18; Glucose Random 168 mg/dL (60-115); Magnesium 2.4 mg/dL (1.6-2.6); Phosphorus 4.6 mg/dL (2.7-4.5); Potassium 4.2 mmol/L (3.3-5.1); Sodium 147 mmol/L (135-145)
[2023-11-09 07:34] LABS: Hematocrit 21.2 % (42.0-52.0); Mean Corpuscular HGB Conc 32.1 g/dl (31.0-36.0); Mean Corpuscular Hemoglobin 25.6 pg (27.0-33.0); Mean Corpuscular Volume 79.7 fL (80.0-98.0); Mean Platelet Volume 10.8 fL (9.4-12.4); Platelet Count 119 X10*3/uL (160-400); Red Blood Count 2.66 X10*6/uL (4.60-5.80); Red Cell Distribution Width 23.2 % (11.0-16.0); White Blood Count 5.3 X10*3/uL (4.8-10.8)
[2023-11-09 07:35] LABS: Hemoglobin 6.8 g/dl (14.0-18.0)
[2023-11-09 07:36] LABS: Basophils Percent Auto 0.2 % (0-2); Eosinophils Absolute Auto 0.2 X10*3/uL (0.0-0.4); Eosinophils Percent Auto 3.4 % (0-4); Hemoglobin 6.9 g/dl (14.0-18.0); Imm Gran Abs Auto 0.03 X10*3/uL (0.00-0.03); Imm Gran Pct Auto 0.5 % (0.0-0.4); Lymphocytes Absolute Auto 0.9 X10*3/uL (1.2-4.9); Lymphocytes Percent Auto 14.8 % (20-40); Mean Corpuscular HGB Conc 31.4 g/dl (31.0-36.0); Mean Corpuscular Hemoglobin 25.3 pg (27.0-33.0); Mean Corpuscular Volume 80.6 fL (80.0-98.0); Mean Platelet Volume 11.3 fL (9.4-12.4); Monocytes Absolute Auto 0.6 X10*3/uL (0.1-1.2); Monocytes Percent Auto 10.2 % (2-11); Neutrophils Absolute Auto 4.2 x10*3/uL (2.0-8.3); Neutrophils Percent Auto 70.9 % (45-73); Platelet Count 119 X10*3/uL (160-400); Red Blood Count 2.73 X10*6/uL (4.60-5.80); White Blood Count 5.9 X10*3/uL (4.8-10.8)
[2023-11-09] MEDS: Metoprolol Tartrate 50 MG TABLET PO ×3 (08:06→20:46)
[2023-11-09] MEDS: lamoTRIgine 25 MG TABLET 50 MG PO ×2 (08:06→20:48)
[2023-11-09] MEDS: Chlorhexidine Gluc Oral Rinse 15 ML MOUTHWASH BUCCAL ×3 (08:07→20:44)
[2023-11-09] MEDS: Nystatin Powder 15 GM BOTTLE 1 APPL TOPICAL ×2 (08:07→20:46)
--- NOTE | 2023-11-09 09:09 | P.PNCC_ITS ---
Subjective Subjective Date of Service: 11/09/23 Interval History: 62-year-old gentleman with underlying HIV on HAART, hep C, COPD admitted on 10/02/2023 with acute hypoxic respiratory failure secondary to influenza with superimposed bacterial superinfection requiring intubation, pressor, and ventilatory support. Cultures are negative to date. Shock component has resolved. Now with abdominal distention secondary to ileus versus SBO, evaluated by general surgeon and deemed to underlying ileus. Extubated 10/13/2023. On 10/14/2023 with an aspiration event resulting in refractory hypoxia requiring emergent intubation and ventilatory support. Post tracheostomy and gastrostomy on 10/21/2023. Now with significant critical illness myopathy. No events overnight. Renal function continues to improve. Critical Care Time (minutes): 60 Physical Exam 2 Vital Signs: Vital Signs: Last Vital Signs Temp 99.1 F 11/09/23 09:00 Pulse 67 11/09/23 09:00 Resp 18 11/09/23 09:00 BP 97/62 11/09/23 09:00 Pulse Ox 92 11/09/23 09:00 O2 Del Method Mechanical Ventil ation 11/09/23 09:00 O2 Flow Rate 35 11/08/23 00:50 FiO2 30 11/09/23 09:00 BMI result Body Mass Index 22.9 Const: General: no acute distress, alert and awake Eyes: Sclerae: sclerae normal EOM: EOMs intact bilaterally Neck: Neck: Yes no lymphadenopathy and Yes tracheostomy present Resp: Effort & Inspection: normal respiratory effort and no respiratory distress Auscultation: clear to auscultation bilaterally Cardio: Rate: regular rate Rhythm: regular rhythm Heart sounds: no gallops, no murmurs and no rubs GI: Inspection: Yes G-tube present Palpation (GI): Soft to palpation and Other GI palpation findings present ( Nontender) Auscultation: normal bowel sounds Extrem: General: No clubbing, No cyanosis and Yes edema (1+ bilateral) Objective Data Labs 11/09/23 07:16 11/09/23 05:10 Labs: Laboratory Results - last 24 hr 11/08/23 11/08/23 11/09/23 11:44 17:13 00:02 WBC RBC Hgb Hct MCV MCH MCHC RDW Plt Count MPV Immature Gran % (Auto) Neut % (Auto) Lymph % (Auto) [place] % (Auto) Eos % (Auto) Baso % (Auto) Lymph # (Auto) [place] # (Auto) Eos # (Auto) Baso # (Auto) Abs Immat Gran (auto) Absolute Neuts (auto) Absolute Nucleated RBC Nucleated RBC % (auto) VBG pH VBG pCO2 VBG pO2 VBG HCO3 VBG O2 Saturation VBG Base Excess Sodium Potassium Chloride Carbon Dioxide Anion Gap BUN Creatinine Estim Creat Clear Calc Estimated GFR POC Glucose 173 H 177 H 159 H Random Glucose Calcium Phosphorus Magnesium Albumin Blood Type Antibody Screen Crossmatch ([facility]) 11/09/23 11/09/23 11/09/23 05:10 05:14 05:53 WBC 5.9 RBC 2.73 L Hgb 6.9 L* Hct 22.0 L MCV 80.6 MCH 25.3 L MCHC 31.4 RDW 23.0 H Plt Count 119 L D MPV 11.3 Immature Gran % (Auto) 0.5 H Neut % (Auto) 70.9 Lymph % (Auto) 14.8 L [place] % (Auto) 10.2 Eos % (Auto) 3.4 Baso % (Auto) 0.2 Lymph # (Auto) 0.9 L [place] # (Auto) 0.6 Eos # (Auto) 0.2 Baso # (Auto) 0.0 Abs Immat Gran (auto) 0.03 Absolute Neuts (auto) 4.2 Absolute Nucleated RBC 0.000 Nucleated RBC % (auto) 0.0 VBG pH 7.41 VBG pCO2 31 VBG pO2 36 VBG HCO3 20 L VBG O2 Saturation 62.0 VBG Base Excess -3.4 Sodium 147 H Potassium 4.2 Chloride 116 H Carbon Dioxide 19 L Anion Gap 16 BUN 138 H Creatinine 3.48 H Estim Creat Clear Calc 21.6 Estimated GFR 18 POC Glucose 151 H Random Glucose 168 H Calcium 8.6 Phosphorus 4.6 H Magnesium 2.4 Albumin 3.4 L Blood Type Antibody Screen Crossmatch ([facility]) 11/09/23 07:16 WBC 5.3 RBC 2.66 L Hgb 6.8 L* Hct 21.2 L MCV 79.7 L MCH 25.6 L MCHC 32.1 RDW 23.2 H Plt Count 119 L MPV 10.8 Immature Gran % (Auto) Neut % (Auto) Lymph % (Auto) [place] % (Auto) Eos % (Auto) Baso % (Auto) Lymph # (Auto) [place] # (Auto) Eos # (Auto) Baso # (Auto) Abs Immat Gran (auto) Absolute Neuts (auto) Absolute Nucleated RBC 0.000 Nucleated RBC % (auto) 0.0 VBG pH VBG pCO2 VBG pO2 VBG HCO3 VBG O2 Saturation VBG Base Excess Sodium Potassium Chloride Carbon Dioxide Anion Gap BUN Creatinine Estim Creat Clear Calc Estimated GFR POC Glucose Random Glucose Calcium Phosphorus Magnesium Albumin Blood Type O Positive Antibody Screen NEGATIVE Crossmatch ([facility]) See Detail Microbiology Microbiology Results: Microbiology 11/07/23 21:36 Sputum - Suctioned Gram Stain - Final 11/07/23 21:36 Sputum - Suctioned Sputum Culture - Preliminary No growth to date. 10/02/23 06:40 Sputum - Suctioned Direct Acid Fast Bacilli Smear - Final 10/02/23 03:11 Blood - Central Line Blood Culture - Final No growth after 5 days. 10/02/23 03:11 Blood - Central Line Blood Culture - Final Coag negative Staphylococcus 10/02/23 06:40 Sputum - Suctioned Gram Stain - Final 10/02/23 06:40 Sputum - Suctioned Sputum Culture - Final 10/02/23 06:40 Urine Catheterized - Miguel Catheter Urine Culture - Final No growth. Progress Note: A&P Assessment and plan (1) Status post tracheostomy: Status: Acute (2) Critical illness myopathy: Status: Acute (3) AMBER (acute kidney injury): Status: Acute (4) HIV (human immunodeficiency virus infection): Status: Acute (5) Acute hypoxic respiratory failure: Status: Acute (6) Hepatitis C: Status: Acute (7) COPD (chronic obstructive pulmonary disease): Status: Acute Plan Assessment: 62-year-old gentleman with underlying HIV on HAART, hep C admitted with acute hypoxic respiratory failure secondary to bacterial superinfection of underlying influenza now requiring ventilatory support Plan: Neuro: No acute issues. Cardiac: No acute issues. Pulmonary: Acute hypoxic respiratory failure secondary to bacterial superinfection of underlying influenza, improved and extubated on 10/13/2023. However with development of recurrent aspirations requiring re-intubation on 10/14/2023. Now status post tracheostomy/gastrostomy on 10/21/2023. Continue to titrate off ventilatory support as tolerated. Renal: Acute kidney injury, improving. Non oliguric. Nephrology service care appreciated. Endo: No acute issues. GI: No acute issues. ID: No acute issues. Heme/Onc: No acute issues. Psych: No acute issues. Miscellaneous: Critical illness myopathy, continue with PT. Prophylaxis: Heparin Diet: Tube feeds Critical care time spent: 60 minutes Quality Stroke Does the patient have a stroke diagnosis?: No VTE Prior VTE?: No VTE Risk Level:: Medical - moderate - high VTE Device Contraindication: N/A - Device Ordered VTE Drug Contraindication: N/A - Med Ordered
--- NOTE | 2023-11-09 09:18 | MHC.CM.PN ---
Pt became agitated during the overnight and required Precedex IV for management. Pt started on Lamictal and Seroquel : Precedex is being tapered off today with plans to d/c order. [facility] is requiring pt to be off of all sedating IV medications x 24 hours before they are able to start the acceptance/payor auth process. [facility] is asking for clinical updates on 11/09 and 11/10 to gauge readiness. Pt is showing positive signs of renal recovery and is attempting to communicate with gestures. CM to follow.
[2023-11-09 11:59] LABS: Glucose, Whole Blood 156 mg/dL (60-115)
[2023-11-09] MEDS: dexmedeTOMIDidine HCL/NS 400 MCG/100 ML INFUS..BTL 8.79 MCG IVCONT (12:39)
--- NOTE | 2023-11-09 12:40 | PM.PNNEP ---
Subjective Subjective Date of Service: 11/09/23 Interval history: No events overnight. Renal function continues to improve. Physical Exam Vital Signs: Vital Signs: Last Vital Signs Temp 99.3 F 11/09/23 12:15 Pulse 78 11/09/23 12:15 Resp 24 H 11/09/23 12:15 BP 134/85 11/09/23 12:15 Pulse Ox 98 11/09/23 12:00 O2 Del Method Mechanical Ventil ation 11/09/23 12:00 O2 Flow Rate 35 11/08/23 00:50 FiO2 30 11/09/23 12:00 BMI result Body Mass Index 22.9 Const: Other: Trach + Resp: Auscultation: diminished lung sounds Cardio: Rate: regular rate GI: Other: G tube + Extrem: General: Yes edema Objective Data Labs 11/09/23 07:16 11/09/23 05:10 Labs: Laboratory Results - last 24 hr 11/08/23 11/09/23 11/09/23 17:13 00:02 05:10 WBC 5.9 RBC 2.73 L Hgb 6.9 L* Hct 22.0 L MCV 80.6 MCH 25.3 L MCHC 31.4 RDW 23.0 H Plt Count 119 L D MPV 11.3 Immature Gran % (Auto) 0.5 H Neut % (Auto) 70.9 Lymph % (Auto) 14.8 L [place] % (Auto) 10.2 Eos % (Auto) 3.4 Baso % (Auto) 0.2 Lymph # (Auto) 0.9 L [place] # (Auto) 0.6 Eos # (Auto) 0.2 Baso # (Auto) 0.0 Abs Immat Gran (auto) 0.03 Absolute Neuts (auto) 4.2 Absolute Nucleated RBC 0.000 Nucleated RBC % (auto) 0.0 VBG pH VBG pCO2 VBG pO2 VBG HCO3 VBG O2 Saturation VBG Base Excess Sodium 147 H Potassium 4.2 Chloride 116 H Carbon Dioxide 19 L Anion Gap 16 BUN 138 H Creatinine 3.48 H Estim Creat Clear Calc 21.6 Estimated GFR 18 POC Glucose 177 H 159 H Random Glucose 168 H Calcium 8.6 Phosphorus 4.6 H Magnesium 2.4 Albumin 3.4 L Blood Type Antibody Screen Crossmatch ([facility]) 11/09/23 11/09/23 11/09/23 05:14 05:53 07:16 WBC 5.3 RBC 2.66 L Hgb 6.8 L* Hct 21.2 L MCV 79.7 L MCH 25.6 L MCHC 32.1 RDW 23.2 H Plt Count 119 L MPV 10.8 Immature Gran % (Auto) Neut % (Auto) Lymph % (Auto) [place] % (Auto) Eos % (Auto) Baso % (Auto) Lymph # (Auto) [place] # (Auto) Eos # (Auto) Baso # (Auto) Abs Immat Gran (auto) Absolute Neuts (auto) Absolute Nucleated RBC 0.000 Nucleated RBC % (auto) 0.0 VBG pH 7.41 VBG pCO2 31 VBG pO2 36 VBG HCO3 20 L VBG O2 Saturation 62.0 VBG Base Excess -3.4 Sodium Potassium Chloride Carbon Dioxide Anion Gap BUN Creatinine Estim Creat Clear Calc Estimated GFR POC Glucose 151 H Random Glucose Calcium Phosphorus Magnesium Albumin Blood Type O Positive Antibody Screen NEGATIVE Crossmatch ([facility]) See Detail 11/09/23 11:55 WBC RBC Hgb Hct MCV MCH MCHC RDW Plt Count MPV Immature Gran % (Auto) Neut % (Auto) Lymph % (Auto) [place] % (Auto) Eos % (Auto) Baso % (Auto) Lymph # (Auto) [place] # (Auto) Eos # (Auto) Baso # (Auto) Abs Immat Gran (auto) Absolute Neuts (auto) Absolute Nucleated RBC Nucleated RBC % (auto) VBG pH VBG pCO2 VBG pO2 VBG HCO3 VBG O2 Saturation VBG Base Excess Sodium Potassium Chloride Carbon Dioxide Anion Gap BUN Creatinine Estim Creat Clear Calc Estimated GFR POC Glucose 156 H Random Glucose Calcium Phosphorus Magnesium Albumin Blood Type Antibody Screen Crossmatch ([facility]) Microbiology Microbiology Results: Microbiology 11/07/23 21:36 Sputum - Suctioned Gram Stain - Final 11/07/23 21:36 Sputum - Suctioned Sputum Culture - Preliminary No growth to date. 10/02/23 06:40 Sputum - Suctioned Direct Acid Fast Bacilli Smear - Final 10/02/23 03:11 Blood - Central Line Blood Culture - Final No growth after 5 days. 10/02/23 03:11 Blood - Central Line Blood Culture - Final Coag negative Staphylococcus 10/02/23 06:40 Sputum - Suctioned Gram Stain - Final 10/02/23 06:40 Sputum - Suctioned Sputum Culture - Final 10/02/23 06:40 Urine Catheterized - Miguel Catheter Urine Culture - Final No growth. Procedures Date of Service Date of Service: 11/09/23 Assessment & Plan Assessment and plan (1) AMBER (acute kidney injury): Status: Acute Plan Acute Kidney Injury due to tubular injury UO good; No need for HD now Renal function improving C/W rest of current supportive care Labs AM; Shall closely follow up Progress Note: Quality Stroke Does the patient have a stroke diagnosis?: No
[2023-11-09] MEDS: Midazolam HCl/PF 2 MG/2 ML VIAL IVPUSH (14:25)
[2023-11-09] MEDS: cloNIDine 0.1 MG PATCH.TDWK TRANSDERMA (15:54)
[2023-11-09] MEDS: clonazePAM 1 MG TABLET 2 MG PO ×2 (16:42→22:24)
[2023-11-09 17:14] LABS: Glucose, Whole Blood 127 mg/dL (60-115)
[2023-11-09] MEDS: Melatonin 3 MG TABLET 6 MG PO (20:45)
[2023-11-09 23:54] LABS: Glucose, Whole Blood 136 mg/dL (60-115)
[2023-11-10] VITALS (35 sets, daily range): BP systolic 91–165; BP diastolic 53–104; PULSE 85–133; RESP 16–30; TEMP 34.2–37.3; O2SAT 90–100; BMI 23.6
[2023-11-10] MEDS: 0.9 % Sodium Chloride Flush 10 ML SYRINGE IVFLUSH ×3 (00:33→18:03)
[2023-11-10] MEDS: HYDROmorphone HCl 0.5 MG/0.5 ML SYRINGE IVPUSH ×5 (01:14→20:26)
[2023-11-10 05:15] LABS: VBG Base Excess -5.2 mmol/L; VBG HCO3 20 mmol/L (22-26); VBG pCO2 38 mmHg; VBG pH 7.32 (7.32-7.43); VBG pO2 67 mmHg
[2023-11-10 05:31] LABS: Venous Blood Gas Refer to POC result
[2023-11-10 05:42] LABS: Hematocrit 30.4 % (42.0-52.0); Imm Gran Abs Auto 0.05 X10*3/uL (0.00-0.03); Imm Gran Pct Auto 0.5 % (0.0-0.4); Mean Corpuscular Volume 82.2 fL (80.0-98.0); PLT ABN DIST 1; SCAN SMEAR FLAG 1
[2023-11-10 05:43] LABS: Basophils Percent Auto 0.2 % (0-2); Eosinophils Absolute Auto 0.2 X10*3/uL (0.0-0.4); Eosinophils Percent Auto 1.7 % (0-4); Hemoglobin 9.7 g/dl (14.0-18.0); Lymphocytes Absolute Auto 1.3 X10*3/uL (1.2-4.9); Mean Corpuscular HGB Conc 31.9 g/dl (31.0-36.0); Mean Corpuscular Hemoglobin 26.2 pg (27.0-33.0); Monocytes Absolute Auto 1.1 X10*3/uL (0.1-1.2); Monocytes Percent Auto 10.4 % (2-11); Neutrophils Absolute Auto 7.6 x10*3/uL (2.0-8.3); Neutrophils Percent Auto 74.2 % (45-73); Platelet Count 141 X10*3/uL (160-400); White Blood Count 10.3 X10*3/uL (4.8-10.8)
[2023-11-10 05:47] LABS: MANUAL DIFF FLAG NO
[2023-11-10 06:06] LABS: Alanine Aminotransferase 22 U/L (0-40); Albumin Level 3.7 g/dL (3.5-5.0); Alkaline Phosphatase 212 U/L (39-117); Anion Gap 17 (12-20); Aspartate Amino Transferase 38 U/L (5-37); Bilirubin Total 0.4 mg/dL (0.0-1.0); Calcium 9.3 mg/dL (8.4-10.2); Carbon Dioxide 19 mmol/L (22-29); Chloride 116 mmol/L (96-108); Estimated Glomerular Filt Rate 18; Glucose Random 160 mg/dL (60-115); Magnesium 2.3 mg/dL (1.6-2.6); Phosphorus 4.9 mg/dL (2.7-4.5); Potassium 4.3 mmol/L (3.3-5.1); Sodium 148 mmol/L (135-145); Total Protein 7.8 g/dL (6.5-8.0)
[2023-11-10] MEDS: Insulin Lispro 100 UNIT/ML 3 ML VIAL SUBCUT (06:12)
[2023-11-10 06:15] LABS: Blood Urea Nitrogen 125 mg/dL (9-16)
[2023-11-10] MEDS: QUEtiapine Fumarate 50 MG TABLET PO ×2 (08:09→20:31)
[2023-11-10] MEDS: clonazePAM 1 MG TABLET 2 MG PO ×3 (08:09→22:41)
[2023-11-10] MEDS: Metoprolol Tartrate 50 MG TABLET PO ×3 (08:10→20:31)
[2023-11-10] MEDS: lamoTRIgine 25 MG TABLET 50 MG PO ×2 (08:10→20:31)
--- NOTE | 2023-11-10 09:26 | MHC.CLN ---
F/U DISCUSSED AT ROUNDS WITH REVIEWED LABS-NOTED SLIGHTLY ELEVATED SERUM SODIUM PT RECEIVING TF NEPRO AT MAX GOAL RATE 45ML/HR WITH 240ML Q 6 HR PROVIDES 1944KCALS (30KCALS/KG), 87G PROTEIN (1.3G/KG), 1745ML TOTAL WATER FROM FORMULA AND FLUSHES (26ML/KG) TF WILL PROMOTE WOUND HEALING AND RENAL FRIENDLY CONTINUE TO MONITOR TOLERANCE, RESIDUALS, AND LYTES
[2023-11-10] MEDS: Nystatin Powder 15 GM BOTTLE 1 APPL TOPICAL ×2 (09:40→20:32)
[2023-11-10] MEDS: Furosemide 40 MG/4 ML VIAL IVPUSH (09:40)
[2023-11-10] MEDS: Chlorhexidine Gluc Oral Rinse 15 ML MOUTHWASH BUCCAL ×3 (09:40→20:32)
--- NOTE | 2023-11-10 09:56 | P.PNCC_ITS ---
Subjective Subjective Date of Service: 11/10/23 Interval History: 62-year-old gentleman with underlying HIV on HAART, hep C, COPD admitted on 10/02/2023 with acute hypoxic respiratory failure secondary to influenza with superimposed bacterial superinfection requiring intubation, pressor, and ventilatory support. Cultures are negative to date. Shock component has resolved. Now with abdominal distention secondary to ileus versus SBO, evaluated by general surgeon and deemed to underlying ileus. Extubated 10/13/2023. On 10/14/2023 with an aspiration event resulting in refractory hypoxia requiring emergent intubation and ventilatory support. Post tracheostomy and gastrostomy on 10/21/2023. Now with significant critical illness myopathy. No events overnight. Renal function continues to improve. Critical Care Time (minutes): 60 Physical Exam 2 Vital Signs: Vital Signs: Last Vital Signs Temp 98.5 F 11/10/23 08:00 Pulse 104 H 11/10/23 09:00 Resp 24 H 11/10/23 09:00 BP 165/104 H 11/10/23 09:00 Pulse Ox 95 11/10/23 09:00 O2 Del Method Mechanical Ventil ation 11/10/23 09:00 O2 Flow Rate 35 11/08/23 00:50 FiO2 30 11/10/23 09:00 BMI result Body Mass Index 23.6 Const: General: no acute distress, alert and awake Eyes: Sclerae: sclerae normal EOM: EOMs intact bilaterally Neck: Neck: Yes no lymphadenopathy and Yes tracheostomy present Resp: Effort & Inspection: normal respiratory effort and no respiratory distress Auscultation: crackles bilateral Cardio: Rhythm: regular rhythm Heart sounds: no gallops, no murmurs and no rubs GI: Inspection: Yes G-tube present Palpation (GI): Soft to palpation and Other GI palpation findings present ( Nontender) Auscultation: normal bowel sounds Extrem: General: No clubbing, No cyanosis and Yes edema (1+ bilateral) Objective Data Labs 11/10/23 05:09 11/10/23 05:09 Labs: Laboratory Results - last 24 hr 11/09/23 11/09/23 11/09/23 07:16 11:55 17:11 WBC RBC Hgb Hct MCV MCH MCHC RDW Plt Count MPV Immature Gran % (Auto) Neut % (Auto) Lymph % (Auto) [place] % (Auto) Eos % (Auto) Baso % (Auto) Lymph # (Auto) [place] # (Auto) Eos # (Auto) Baso # (Auto) Abs Immat Gran (auto) Absolute Neuts (auto) Absolute Nucleated RBC Nucleated RBC % (auto) VBG pH VBG pCO2 VBG pO2 VBG HCO3 VBG O2 Saturation VBG Base Excess Sodium Potassium Chloride Carbon Dioxide Anion Gap BUN Creatinine Estim Creat Clear Calc Estimated GFR POC Glucose 156 H 127 H Random Glucose Calcium Phosphorus Magnesium Total Bilirubin AST ALT Alkaline Phosphatase Total Protein Albumin Crossmatch ([facility]) See Detail 11/09/23 11/10/23 11/10/23 23:50 05:08 05:09 WBC 10.3 RBC 3.70 L D Hgb 9.7 L D Hct 30.4 L D MCV 82.2 MCH 26.2 L MCHC 31.9 RDW 23.0 H Plt Count 141 L MPV 11.0 Immature Gran % (Auto) 0.5 H Neut % (Auto) 74.2 H Lymph % (Auto) 13.0 L [place] % (Auto) 10.4 Eos % (Auto) 1.7 Baso % (Auto) 0.2 Lymph # (Auto) 1.3 [place] # (Auto) 1.1 Eos # (Auto) 0.2 Baso # (Auto) 0.0 Abs Immat Gran (auto) 0.05 H Absolute Neuts (auto) 7.6 Absolute Nucleated RBC 0.000 Nucleated RBC % (auto) 0.0 VBG pH 7.32 VBG pCO2 38 VBG pO2 67 VBG HCO3 20 L VBG O2 Saturation 92.0 VBG Base Excess -5.2 Sodium 148 H Potassium 4.3 Chloride 116 H Carbon Dioxide 19 L Anion Gap 17 BUN 125 H Creatinine 3.42 H Estim Creat Clear Calc 22.0 Estimated GFR 18 POC Glucose 136 H Random Glucose 160 H Calcium 9.3 D Phosphorus 4.9 H Magnesium 2.3 Total Bilirubin 0.4 AST 38 H ALT 22 Alkaline Phosphatase 212 H Total Protein 7.8 Albumin 3.7 Crossmatch ([facility]) Microbiology Microbiology Results: Microbiology 11/07/23 21:36 Sputum - Suctioned Gram Stain - Final 11/07/23 21:36 Sputum - Suctioned Sputum Culture - Final No growth. 10/02/23 06:40 Sputum - Suctioned Direct Acid Fast Bacilli Smear - Final 10/02/23 03:11 Blood - Central Line Blood Culture - Final No growth after 5 days. 10/02/23 03:11 Blood - Central Line Blood Culture - Final Coag negative Staphylococcus 10/02/23 06:40 Sputum - Suctioned Gram Stain - Final 10/02/23 06:40 Sputum - Suctioned Sputum Culture - Final 10/02/23 06:40 Urine Catheterized - Miguel Catheter Urine Culture - Final No growth. Progress Note: A&P Assessment and plan (1) Status post tracheostomy: Status: Acute (2) Critical illness myopathy: Status: Acute (3) AMBER (acute kidney injury): Status: Acute (4) HIV (human immunodeficiency virus infection): Status: Acute (5) Acute hypoxic respiratory failure: Status: Acute (6) Hepatitis C: Status: Acute (7) COPD (chronic obstructive pulmonary disease): Status: Acute Plan Assessment: 62-year-old gentleman with underlying HIV on HAART, hep C admitted with acute hypoxic respiratory failure secondary to bacterial superinfection of underlying influenza now requiring ventilatory support Plan: Neuro: No acute issues. Cardiac: No acute issues. Pulmonary: Acute hypoxic respiratory failure secondary to bacterial superinfection of underlying influenza, improved and extubated on 10/13/2023. However with development of recurrent aspirations requiring re-intubation on 10/14/2023. Now status post tracheostomy/gastrostomy on 10/21/2023. Continue to titrate off ventilatory support as tolerated. Renal: Acute kidney injury, improving. Non oliguric. Nephrology service care appreciated. Endo: No acute issues. GI: No acute issues. ID: No acute issues. Heme/Onc: No acute issues. Psych: No acute issues. Miscellaneous: Critical illness myopathy, continue with PT. Prophylaxis: Heparin Diet: Tube feeds Critical care time spent: 60 minutes Quality Stroke Does the patient have a stroke diagnosis?: No VTE Prior VTE?: No VTE Risk Level:: Medical - moderate - high VTE Device Contraindication: N/A - Device Ordered VTE Drug Contraindication: N/A - Med Ordered
[2023-11-10] MEDS: Tobramycin Sulfate 80 MG/2 ML VIAL 300 MG INHALE ×2 (11:10→20:12)
[2023-11-10 12:28] LABS: Glucose, Whole Blood 144 mg/dL (60-115)
--- NOTE | 2023-11-10 15:44 | MHC.CM.PN ---
A clinical update has been sent to [facility]. [facility] has been notified that the patient is ready for discharge. A request on anticipated date of acceptance has been made. [facility] via S date of acceptance is pending.
[2023-11-10 18:07] LABS: Glucose, Whole Blood 131 mg/dL (60-115)
[2023-11-10] MEDS: Melatonin 3 MG TABLET 6 MG PO (20:31)
[2023-11-10] MEDS: Bacitracin Oint 14 GM TUBE 1 APPL TOPICAL (20:32)
[2023-11-11] VITALS (33 sets, daily range): BP systolic 83–157; BP diastolic 47–95; PULSE 89–115; RESP 18–31; TEMP 34.2–37.9; O2SAT 87–100; BMI 23.8
[2023-11-11] MEDS: 0.9 % Sodium Chloride Flush 10 ML SYRINGE IVFLUSH ×4 (00:54→23:18)
[2023-11-11] MEDS: HYDROmorphone HCl 0.5 MG/0.5 ML SYRINGE IVPUSH ×5 (03:10→23:20)
[2023-11-11 05:47] LABS: Glucose, Whole Blood 138 mg/dL (60-115)
[2023-11-11 05:47] LABS: VBG Base Excess -1.7 mmol/L; VBG HCO3 22 mmol/L (22-26); VBG pCO2 35 mmHg; VBG pO2 54 mmHg
[2023-11-11 05:59] LABS: Albumin Level 3.2 g/dL (3.5-5.0); Anion Gap 14 (12-20); Blood Urea Nitrogen 121 mg/dL (9-16); Calcium 9.2 mg/dL (8.4-10.2); Carbon Dioxide 22 mmol/L (22-29); Chloride 117 mmol/L (96-108); Creatinine Clr Calc Pharmacy 23.1; Estimated Glomerular Filt Rate 19; Glucose Random 152 mg/dL (60-115); Magnesium 2.3 mg/dL (1.6-2.6); Phosphorus 3.2 mg/dL (2.7-4.5); Potassium 3.8 mmol/L (3.3-5.1); Sodium 149 mmol/L (135-145)
[2023-11-11 06:04] LABS: Basophils Percent Auto 0.1 % (0-2); Eosinophils Absolute Auto 0.3 X10*3/uL (0.0-0.4); Eosinophils Percent Auto 4.1 % (0-4); Hematocrit 26.6 % (42.0-52.0); Hemoglobin 8.7 g/dl (14.0-18.0); Imm Gran Abs Auto 0.03 X10*3/uL (0.00-0.03); Imm Gran Pct Auto 0.4 % (0.0-0.4); Lymphocytes Percent Auto 14.8 % (20-40); MANUAL DIFF FLAG NO; Mean Corpuscular HGB Conc 32.7 g/dl (31.0-36.0); Mean Corpuscular Hemoglobin 26.4 pg (27.0-33.0); Mean Corpuscular Volume 80.9 fL (80.0-98.0); Mean Platelet Volume 10.1 fL (9.4-12.4); Monocytes Absolute Auto 0.7 X10*3/uL (0.1-1.2); Neutrophils Absolute Auto 4.9 x10*3/uL (2.0-8.3); Neutrophils Percent Auto 70.6 % (45-73); Platelet Count 121 X10*3/uL (160-400); Red Blood Count 3.29 X10*6/uL (4.60-5.80); Red Cell Distribution Width 22.7 % (11.0-16.0); White Blood Count 6.9 X10*3/uL (4.8-10.8)
[2023-11-11 06:34] LABS: Venous Blood Gas Refer to POC result
[2023-11-11] MEDS: Insulin Lispro 100 UNIT/ML 3 ML VIAL SUBCUT (06:39)
[2023-11-11] MEDS: Tobramycin Sulfate 80 MG/2 ML VIAL 300 MG INHALE ×2 (07:40→19:29)
[2023-11-11] MEDS: clonazePAM 1 MG TABLET 2 MG PO ×2 (08:50→20:14)
[2023-11-11] MEDS: Chlorhexidine Gluc Oral Rinse 15 ML MOUTHWASH BUCCAL ×3 (08:50→20:13)
[2023-11-11] MEDS: Nystatin Powder 15 GM BOTTLE 1 APPL TOPICAL ×2 (08:51→20:13)
[2023-11-11] MEDS: Metoprolol Tartrate 50 MG TABLET PO ×3 (08:51→20:15)
[2023-11-11] MEDS: lamoTRIgine 25 MG TABLET 50 MG PO ×2 (08:51→20:15)
[2023-11-11] MEDS: QUEtiapine Fumarate 50 MG TABLET PO ×2 (08:51→20:16)
--- NOTE | 2023-11-11 09:31 | P.PNCC_ITS ---
Subjective Subjective Date of Service: 11/11/23 Interval History: 62-year-old gentleman with underlying HIV on HAART, hep C, COPD admitted on 10/02/2023 with acute hypoxic respiratory failure secondary to influenza with superimposed bacterial superinfection requiring intubation, pressor, and ventilatory support. Cultures are negative to date. Shock component has resolved. Now with abdominal distention secondary to ileus versus SBO, evaluated by general surgeon and deemed to underlying ileus. Extubated 10/13/2023. On 10/14/2023 with an aspiration event resulting in refractory hypoxia requiring emergent intubation and ventilatory support. Post tracheostomy and gastrostomy on 10/21/2023. Now with significant critical illness myopathy. No events overnight. Renal function continues to improve. Off Precedex drip for over 36 hours Critical Care Time (minutes): 60 Physical Exam 2 Vital Signs: Vital Signs: Last Vital Signs Temp 97.8 F 11/11/23 08:00 Pulse 115 H 11/11/23 09:00 Resp 28 H 11/11/23 09:00 BP 145/92 H 11/11/23 09:00 Pulse Ox 95 11/11/23 09:00 O2 Del Method Mechanical Ventil ation 11/11/23 09:00 O2 Flow Rate 35 11/08/23 00:50 FiO2 30 11/11/23 09:00 BMI result Body Mass Index 23.8 Const: General: no acute distress, alert and awake Eyes: Sclerae: sclerae normal EOM: EOMs intact bilaterally Neck: Neck: Yes no lymphadenopathy and Yes tracheostomy present (On vent) Resp: Effort & Inspection: normal respiratory effort and no respiratory distress Auscultation: clear to auscultation bilaterally Cardio: Rate: regular rate Rhythm: regular rhythm Heart sounds: no gallops, no murmurs and no rubs GI: Inspection: Yes G-tube present Palpation (GI): Soft to palpation and Other GI palpation findings present ( Nontender) Auscultation: normal bowel sounds Extrem: General: Yes no pedal edema, No clubbing and No cyanosis Objective Data Labs 11/11/23 05:00 11/11/23 05:00 Labs: Laboratory Results - last 24 hr 11/10/23 11/10/23 11/11/23 12:25 18:03 00:07 WBC RBC Hgb Hct MCV MCH MCHC RDW Plt Count MPV Immature Gran % (Auto) Neut % (Auto) Lymph % (Auto) [place] % (Auto) Eos % (Auto) Baso % (Auto) Lymph # (Auto) [place] # (Auto) Eos # (Auto) Baso # (Auto) Abs Immat Gran (auto) Absolute Neuts (auto) Absolute Nucleated RBC Nucleated RBC % (auto) VBG pH VBG pCO2 VBG pO2 VBG HCO3 VBG O2 Saturation VBG Base Excess Sodium Potassium Chloride Carbon Dioxide Anion Gap BUN Creatinine Estim Creat Clear Calc Estimated GFR POC Glucose 144 H 131 H 138 H Random Glucose Calcium Phosphorus Magnesium Albumin 11/11/23 11/11/23 05:00 05:02 WBC 6.9 RBC 3.29 L Hgb 8.7 L Hct 26.6 L MCV 80.9 MCH 26.4 L MCHC 32.7 RDW 22.7 H Plt Count 121 L MPV 10.1 Immature Gran % (Auto) 0.4 Neut % (Auto) 70.6 Lymph % (Auto) 14.8 L [place] % (Auto) 10.0 Eos % (Auto) 4.1 H Baso % (Auto) 0.1 Lymph # (Auto) 1.0 L [place] # (Auto) 0.7 Eos # (Auto) 0.3 Baso # (Auto) 0.0 Abs Immat Gran (auto) 0.03 Absolute Neuts (auto) 4.9 Absolute Nucleated RBC 0.000 Nucleated RBC % (auto) 0.0 VBG pH 7.40 VBG pCO2 35 VBG pO2 54 VBG HCO3 22 VBG O2 Saturation 88.0 VBG Base Excess -1.7 Sodium 149 H Potassium 3.8 Chloride 117 H Carbon Dioxide 22 Anion Gap 14 BUN 121 H Creatinine 3.26 H Estim Creat Clear Calc 23.1 Estimated GFR 19 POC Glucose Random Glucose 152 H Calcium 9.2 Phosphorus 3.2 Magnesium 2.3 Albumin 3.2 L Microbiology Microbiology Results: Microbiology 11/07/23 21:36 Sputum - Suctioned Gram Stain - Final 11/07/23 21:36 Sputum - Suctioned Sputum Culture - Final No growth. 10/02/23 06:40 Sputum - Suctioned Direct Acid Fast Bacilli Smear - Final 10/02/23 03:11 Blood - Central Line Blood Culture - Final No growth after 5 days. 10/02/23 03:11 Blood - Central Line Blood Culture - Final Coag negative Staphylococcus 10/02/23 06:40 Sputum - Suctioned Gram Stain - Final 10/02/23 06:40 Sputum - Suctioned Sputum Culture - Final 10/02/23 06:40 Urine Catheterized - Miguel Catheter Urine Culture - Final No growth. Progress Note: A&P Assessment and plan (1) Status post tracheostomy: Status: Acute (2) Critical illness myopathy: Status: Acute (3) AMBER (acute kidney injury): Status: Acute (4) HIV (human immunodeficiency virus infection): Status: Acute (5) Acute hypoxic respiratory failure: Status: Acute (6) Hepatitis C: Status: Acute (7) COPD (chronic obstructive pulmonary disease): Status: Acute Plan Assessment: 62-year-old gentleman with underlying HIV on HAART, hep C admitted with acute hypoxic respiratory failure secondary to bacterial superinfection of underlying influenza now requiring ventilatory support Plan: Neuro: Anxiety component now controlled on Seroquel/Lamictal/Klonopin. Off Precedex drip for over 36 hours. Cardiac: No acute issues. Pulmonary: Acute hypoxic respiratory failure secondary to bacterial superinfection of underlying influenza, improved and extubated on 10/13/2023. However with development of recurrent aspirations requiring re-intubation on 10/14/2023. Now status post tracheostomy/gastrostomy on 10/21/2023. Continue to titrate off ventilatory support as tolerated. Renal: Acute kidney injury, continues to improve. Non oliguric. Nephrology service care appreciated. Endo: No acute issues. GI: No acute issues. ID: No acute issues. Heme/Onc: No acute issues. Psych: No acute issues. Miscellaneous: Critical illness myopathy, continue with PT. Prophylaxis: Heparin Diet: Tube feeds Critical care time spent: 60 minutes Quality Stroke Does the patient have a stroke diagnosis?: No VTE Prior VTE?: No VTE Risk Level:: Medical - moderate - high VTE Device Contraindication: N/A - Device Ordered VTE Drug Contraindication: N/A - Med Ordered
[2023-11-11] MEDS: Bacitracin Oint 14 GM TUBE 1 APPL TOPICAL ×2 (11:06→20:13)
[2023-11-11 11:16] LABS: Glucose, Whole Blood 136 mg/dL (60-115)
--- NOTE | 2023-11-11 12:06 | P.PNNP_ITS ---
Subjective Subjective Date of Service: 11/11/23 Interval history: No events overnight. Renal function continues to improve. Physical Exam 2 Vital Signs: Vital Signs: Last Vital Signs Temp 97.8 F 11/11/23 08:00 Pulse 90 11/11/23 11:00 Resp 23 H 11/11/23 11:00 BP 86/47 L 11/11/23 11:00 Pulse Ox 94 11/11/23 11:00 O2 Del Method Mechanical Ventil ation 11/11/23 11:00 O2 Flow Rate 35 11/08/23 00:50 FiO2 35 11/11/23 11:10 BMI result Body Mass Index 23.8 Const: Other: Trach + General: no acute distress Resp: Auscultation: diminished lung sounds Cardio: Rate: regular rate GI: Other: G tube + Extrem: General: Yes edema Objective Data Labs 11/11/23 05:00 11/11/23 05:00 Labs: Laboratory Results - last 24 hr 11/10/23 11/10/23 11/11/23 12:25 18:03 00:07 WBC RBC Hgb Hct MCV MCH MCHC RDW Plt Count MPV Immature Gran % (Auto) Neut % (Auto) Lymph % (Auto) [place] % (Auto) Eos % (Auto) Baso % (Auto) Lymph # (Auto) [place] # (Auto) Eos # (Auto) Baso # (Auto) Abs Immat Gran (auto) Absolute Neuts (auto) Absolute Nucleated RBC Nucleated RBC % (auto) VBG pH VBG pCO2 VBG pO2 VBG HCO3 VBG O2 Saturation VBG Base Excess Sodium Potassium Chloride Carbon Dioxide Anion Gap BUN Creatinine Estim Creat Clear Calc Estimated GFR POC Glucose 144 H 131 H 138 H Random Glucose Calcium Phosphorus Magnesium Albumin 11/11/23 11/11/23 11/11/23 05:00 05:02 11:13 WBC 6.9 RBC 3.29 L Hgb 8.7 L Hct 26.6 L MCV 80.9 MCH 26.4 L MCHC 32.7 RDW 22.7 H Plt Count 121 L MPV 10.1 Immature Gran % (Auto) 0.4 Neut % (Auto) 70.6 Lymph % (Auto) 14.8 L [place] % (Auto) 10.0 Eos % (Auto) 4.1 H Baso % (Auto) 0.1 Lymph # (Auto) 1.0 L [place] # (Auto) 0.7 Eos # (Auto) 0.3 Baso # (Auto) 0.0 Abs Immat Gran (auto) 0.03 Absolute Neuts (auto) 4.9 Absolute Nucleated RBC 0.000 Nucleated RBC % (auto) 0.0 VBG pH 7.40 VBG pCO2 35 VBG pO2 54 VBG HCO3 22 VBG O2 Saturation 88.0 VBG Base Excess -1.7 Sodium 149 H Potassium 3.8 Chloride 117 H Carbon Dioxide 22 Anion Gap 14 BUN 121 H Creatinine 3.26 H Estim Creat Clear Calc 23.1 Estimated GFR 19 POC Glucose 136 H Random Glucose 152 H Calcium 9.2 Phosphorus 3.2 Magnesium 2.3 Albumin 3.2 L Microbiology Microbiology Results: Microbiology 11/07/23 21:36 Sputum - Suctioned Gram Stain - Final 11/07/23 21:36 Sputum - Suctioned Sputum Culture - Final No growth. 10/02/23 06:40 Sputum - Suctioned Direct Acid Fast Bacilli Smear - Final 10/02/23 03:11 Blood - Central Line Blood Culture - Final No growth after 5 days. 10/02/23 03:11 Blood - Central Line Blood Culture - Final Coag negative Staphylococcus 10/02/23 06:40 Sputum - Suctioned Gram Stain - Final 10/02/23 06:40 Sputum - Suctioned Sputum Culture - Final 10/02/23 06:40 Urine Catheterized - Miguel Catheter Urine Culture - Final No growth. Procedures Date of Service Date of Service: 11/11/23 Assessment & Plan Assessment and plan (1) AMBER (acute kidney injury): Status: Acute Plan Acute Kidney Injury due to tubular injury UO good; No need for HD now Renal function improving C/W rest of current supportive care Labs AM; Shall closely follow up Progress Note: Quality Stroke Does the patient have a stroke diagnosis?: No
[2023-11-11 17:29] LABS: Glucose, Whole Blood 127 mg/dL (60-115)
[2023-11-12] VITALS (35 sets, daily range): BP systolic 77–162; BP diastolic 42–102; PULSE 82–117; RESP 18–31; TEMP 34.6–37.7; O2SAT 89–100; BMI 23.1
[2023-11-12] LABS: Glucose, Whole Blood 109 mg/dL (60-115)
[2023-11-12] MEDS: HYDROmorphone HCl 0.5 MG/0.5 ML SYRINGE IVPUSH ×2 (03:03→20:19)
[2023-11-12 04:48] LABS: VBG Base Excess -0.7 mmol/L; VBG HCO3 23 mmol/L (22-26); VBG pCO2 34 mmHg; VBG pH 7.42 (7.32-7.43); VBG pO2 37 mmHg
[2023-11-12 04:56] LABS: MANUAL DIFF FLAG NO
[2023-11-12 04:58] LABS: Basophils Percent Auto 0.3 % (0-2); Eosinophils Absolute Auto 0.3 X10*3/uL (0.0-0.4); Eosinophils Percent Auto 4.4 % (0-4); Hematocrit 25.5 % (42.0-52.0); Hemoglobin 8.3 g/dl (14.0-18.0); Imm Gran Abs Auto 0.02 X10*3/uL (0.00-0.03); Imm Gran Pct Auto 0.3 % (0.0-0.4); Lymphocytes Absolute Auto 1.1 X10*3/uL (1.2-4.9); Lymphocytes Percent Auto 15.2 % (20-40); Mean Corpuscular HGB Conc 32.5 g/dl (31.0-36.0); Mean Corpuscular Hemoglobin 26.5 pg (27.0-33.0); Mean Corpuscular Volume 81.5 fL (80.0-98.0); Mean Platelet Volume 10.7 fL (9.4-12.4); Monocytes Absolute Auto 0.6 X10*3/uL (0.1-1.2); Monocytes Percent Auto 8.8 % (2-11); Platelet Count 139 X10*3/uL (160-400); Red Blood Count 3.13 X10*6/uL (4.60-5.80); Red Cell Distribution Width 22.8 % (11.0-16.0)
[2023-11-12 05:12] LABS: Venous Blood Gas Refer to POC result
[2023-11-12 05:17] LABS: Albumin Level 3.1 g/dL (3.5-5.0); Anion Gap 12 (12-20); Blood Urea Nitrogen 113 mg/dL (9-16); Calcium 9.1 mg/dL (8.4-10.2); Carbon Dioxide 23 mmol/L (22-29); Chloride 118 mmol/L (96-108); Creatinine Clr Calc Pharmacy 24.2; Estimated Glomerular Filt Rate 20; Glucose Random 135 mg/dL (60-115); Magnesium 2.3 mg/dL (1.6-2.6); Phosphorus 2.7 mg/dL (2.7-4.5); Potassium 3.6 mmol/L (3.3-5.1); Sodium 149 mmol/L (135-145)
[2023-11-12] MEDS: Furosemide 40 MG/4 ML VIAL IVPUSH (08:39)
[2023-11-12] MEDS: Chlorhexidine Gluc Oral Rinse 15 ML MOUTHWASH BUCCAL ×3 (08:39→20:18)
[2023-11-12] MEDS: Metoprolol Tartrate 50 MG TABLET PO ×3 (08:40→20:19)
[2023-11-12] MEDS: 0.9 % Sodium Chloride Flush 10 ML SYRINGE IVFLUSH ×2 (08:40→15:53)
[2023-11-12] MEDS: clonazePAM 1 MG TABLET 2 MG PO ×3 (08:40→20:18)
[2023-11-12] MEDS: Bacitracin Oint 14 GM TUBE 1 APPL TOPICAL ×2 (08:40→20:23)
[2023-11-12] MEDS: Nystatin Powder 15 GM BOTTLE 1 APPL TOPICAL ×2 (08:40→20:23)
[2023-11-12] MEDS: lamoTRIgine 25 MG TABLET 50 MG PO ×2 (08:40→20:19)
[2023-11-12] MEDS: QUEtiapine Fumarate 50 MG TABLET PO ×2 (08:40→20:18)
[2023-11-12] MEDS: Albumin Human 25 % 100 ML IV ×2 (08:52→09:53)
--- NOTE | 2023-11-12 09:24 | MHC.CLN ---
F/U DISCUSSED AT ROUNDS WITH MD-RENAL FUNCTION IMPROVING PT TOLERATING TF WITH LOW RESIDUALS PER NSG REVIEWED LABS PT RECEIVING TF NEPRO AT MAX GOAL RATE 45ML/HR WITH 240ML Q 4 HR PROVIDES 1944KCALS (30KCALS/KG), 87G PROTEIN (1.3G/KG), 2225ML TOTAL WATER FROM FORMULA AND FLUSHES (33ML/KG) TF WILL PROMOTE WOUND HEALING AND RENAL FRIENDLY CONTINUE TO MONITOR TOLERANCE, RESIDUALS, AND LYTES
--- NOTE | 2023-11-12 09:49 | PM.CCPN ---
Subjective Subjective Date of Service: 11/12/23 Interval History: 62-year-old gentleman with underlying HIV on HAART, hep C, COPD admitted on 10/02/2023 with acute hypoxic respiratory failure secondary to influenza with superimposed bacterial superinfection requiring intubation, pressor, and ventilatory support. Cultures are negative to date. Shock component has resolved. Now with abdominal distention secondary to ileus versus SBO, evaluated by general surgeon and deemed to underlying ileus. Extubated 10/13/2023. On 10/14/2023 with an aspiration event resulting in refractory hypoxia requiring emergent intubation and ventilatory support. Post tracheostomy and gastrostomy on 10/21/2023. Now with significant critical illness myopathy. No events overnight. Renal function continues to improve. Off Precedex drip since 11/10/2023. Critical Care Time (minutes): 60 Physical Exam Vital Signs: Vital Signs: Last Vital Signs Temp 98.3 F 11/12/23 03:00 Pulse 112 H 11/12/23 08:52 Resp 21 H 11/12/23 08:52 BP 153/97 H 11/12/23 08:52 Pulse Ox 98 11/12/23 08:52 O2 Del Method Mechanical Ventil ation 11/12/23 08:52 O2 Flow Rate 35 11/08/23 00:50 FiO2 30 11/12/23 08:52 BMI result Body Mass Index 23.1 Const: General: no acute distress, alert and awake Eyes: Sclerae: sclerae normal EOM: EOMs intact bilaterally Neck: Neck: Yes no lymphadenopathy and Yes tracheostomy present Resp: Auscultation: crackles bilateral Cardio: Rate: regular rate Rhythm: regular rhythm Heart sounds: no gallops, no murmurs and no rubs GI: Inspection: Yes G-tube present Palpation (GI): Soft to palpation and Other GI palpation findings present ( Nontender) Auscultation: normal bowel sounds Extrem: General: Yes no pedal edema, No clubbing and No cyanosis Objective Data Labs 11/12/23 04:39 11/12/23 04:38 Labs: Laboratory Results - last 24 hr 11/11/23 11/11/23 11/11/23 11:13 17:25 23:55 WBC RBC Hgb Hct MCV MCH MCHC RDW Plt Count MPV Immature Gran % (Auto) Neut % (Auto) Lymph % (Auto) [place] % (Auto) Eos % (Auto) Baso % (Auto) Lymph # (Auto) [place] # (Auto) Eos # (Auto) Baso # (Auto) Abs Immat Gran (auto) Absolute Neuts (auto) Absolute Nucleated RBC Nucleated RBC % (auto) VBG pH VBG pCO2 VBG pO2 VBG HCO3 VBG O2 Saturation VBG Base Excess Sodium Potassium Chloride Carbon Dioxide Anion Gap BUN Creatinine Estim Creat Clear Calc Estimated GFR POC Glucose 136 H 127 H 109 Random Glucose Calcium Phosphorus Magnesium Albumin 11/12/23 11/12/23 11/12/23 04:38 04:39 04:40 WBC 7.0 RBC 3.13 L Hgb 8.3 L Hct 25.5 L MCV 81.5 MCH 26.5 L MCHC 32.5 RDW 22.8 H Plt Count 139 L MPV 10.7 Immature Gran % (Auto) 0.3 Neut % (Auto) 71.0 Lymph % (Auto) 15.[address] [place] % (Auto) 8.8 Eos % (Auto) 4.4 H Baso % (Auto) 0.3 Lymph # (Auto) 1.[address] [place] # (Auto) 0.6 Eos # (Auto) 0.3 Baso # (Auto) 0.0 Abs Immat Gran (auto) 0.02 Absolute Neuts (auto) 5.0 Absolute Nucleated RBC 0.000 Nucleated RBC % (auto) 0.0 VBG pH 7.42 VBG pCO2 34 VBG pO2 37 VBG HCO3 23 VBG O2 Saturation 64.0 VBG Base Excess -0.7 Sodium 149 H Potassium 3.6 Chloride 118 H Carbon Dioxide 23 Anion Gap 12 BUN 113 H Creatinine 3.12 H Estim Creat Clear Calc 24.2 Estimated GFR 20 POC Glucose Random Glucose 135 H Calcium 9.1 Phosphorus 2.7 Magnesium 2.3 Albumin 3.1 L Microbiology Microbiology Results: Microbiology 11/07/23 21:36 Sputum - Suctioned Gram Stain - Final 11/07/23 21:36 Sputum - Suctioned Sputum Culture - Final No growth. 10/02/23 06:40 Sputum - Suctioned Direct Acid Fast Bacilli Smear - Final 10/02/23 03:11 Blood - Central Line Blood Culture - Final No growth after 5 days. 10/02/23 03:11 Blood - Central Line Blood Culture - Final Coag negative Staphylococcus 10/02/23 06:40 Sputum - Suctioned Gram Stain - Final 10/02/23 06:40 Sputum - Suctioned Sputum Culture - Final 10/02/23 06:40 Urine Catheterized - Miguel Catheter Urine Culture - Final No growth. Progress Note: A&P Assessment and plan (1) Status post tracheostomy: Status: Acute (2) Critical illness myopathy: Status: Acute (3) AMBER (acute kidney injury): Status: Acute (4) HIV (human immunodeficiency virus infection): Status: Acute (5) Acute hypoxic respiratory failure: Status: Acute (6) COPD (chronic obstructive pulmonary disease): Status: Acute (7) Hepatitis C: Status: Acute Plan Assessment: 62-year-old gentleman with underlying HIV on HAART, hep C admitted with acute hypoxic respiratory failure secondary to bacterial superinfection of underlying influenza now requiring ventilatory support Plan: Neuro: Anxiety component now controlled on Seroquel/Lamictal/Klonopin. Off Precedex drip. Cardiac: No acute issues. Pulmonary: Acute hypoxic respiratory failure secondary to bacterial superinfection of underlying influenza, improved and extubated on 10/13/2023. However with development of recurrent aspirations requiring re-intubation on 10/14/2023. Now status post tracheostomy/gastrostomy on 10/21/2023. Continue to titrate off ventilatory support as tolerated. Renal: Acute kidney injury, continues to improve. Non oliguric. Nephrology service care appreciated. Endo: No acute issues. GI: No acute issues. ID: No acute issues. Heme/Onc: No acute issues. Psych: No acute issues. Miscellaneous: Critical illness myopathy, continue with PT. Prophylaxis: Heparin Diet: Tube feeds Critical care time spent: 60 minutes Quality Stroke Does the patient have a stroke diagnosis?: No VTE Prior VTE?: No VTE Risk Level:: Medical - moderate - high VTE Device Contraindication: N/A - Device Ordered VTE Drug Contraindication: N/A - Med Ordered
[2023-11-12] MEDS: Tobramycin Sulfate 80 MG/2 ML VIAL 300 MG INHALE ×2 (11:00→23:31)
[2023-11-12 12:04] LABS: Glucose, Whole Blood 144 mg/dL (60-115)
--- NOTE | 2023-11-12 12:19 | PM.PNNEP ---
Subjective Subjective Date of Service: 11/12/23 Interval history: No events overnight. Renal function continues to improve. Physical Exam Vital Signs: Vital Signs: Last Vital Signs Temp 97.0 F 11/12/23 12:00 Pulse 101 H 11/12/23 12:00 Resp 28 H 11/12/23 12:00 BP 127/81 11/12/23 12:00 Pulse Ox 90 L 11/12/23 12:00 O2 Del Method Mechanical Ventil ation 11/12/23 12:00 O2 Flow Rate 35 11/08/23 00:50 FiO2 30 11/12/23 12:00 BMI result Body Mass Index 23.1 Const: Other: Trach + General: no acute distress Resp: Auscultation: diminished lung sounds Cardio: Rate: regular rate GI: Other: G tube + Skin: General skin exam: no rashes or lesions noted Extrem: General: Yes edema Objective Data Labs 11/12/23 04:39 11/12/23 04:38 Labs: Laboratory Results - last 24 hr 11/11/23 11/11/23 11/12/23 17:25 23:55 04:38 WBC RBC Hgb Hct MCV MCH MCHC RDW Plt Count MPV Immature Gran % (Auto) Neut % (Auto) Lymph % (Auto) [place] % (Auto) Eos % (Auto) Baso % (Auto) Lymph # (Auto) [place] # (Auto) Eos # (Auto) Baso # (Auto) Abs Immat Gran (auto) Absolute Neuts (auto) Absolute Nucleated RBC Nucleated RBC % (auto) VBG pH VBG pCO2 VBG pO2 VBG HCO3 VBG O2 Saturation VBG Base Excess Sodium 149 H Potassium 3.6 Chloride 118 H Carbon Dioxide 23 Anion Gap 12 BUN 113 H Creatinine 3.12 H Estim Creat Clear Calc 24.2 Estimated GFR 20 POC Glucose 127 H 109 Random Glucose 135 H Calcium 9.1 Phosphorus 2.7 Magnesium 2.3 Albumin 3.1 L 11/12/23 11/12/23 11/12/23 04:39 04:40 12:01 WBC 7.0 RBC 3.13 L Hgb 8.3 L Hct 25.5 L MCV 81.5 MCH 26.5 L MCHC 32.5 RDW 22.8 H Plt Count 139 L MPV 10.7 Immature Gran % (Auto) 0.3 Neut % (Auto) 71.0 Lymph % (Auto) 15.2 L [place] % (Auto) 8.8 Eos % (Auto) 4.4 H Baso % (Auto) 0.3 Lymph # (Auto) 1.1 L [place] # (Auto) 0.6 Eos # (Auto) 0.3 Baso # (Auto) 0.0 Abs Immat Gran (auto) 0.02 Absolute Neuts (auto) 5.0 Absolute Nucleated RBC 0.000 Nucleated RBC % (auto) 0.0 VBG pH 7.42 VBG pCO2 34 VBG pO2 37 VBG HCO3 23 VBG O2 Saturation 64.0 VBG Base Excess -0.7 Sodium Potassium Chloride Carbon Dioxide Anion Gap BUN Creatinine Estim Creat Clear Calc Estimated GFR POC Glucose 144 H Random Glucose Calcium Phosphorus Magnesium Albumin Microbiology Microbiology Results: Microbiology 11/07/23 21:36 Sputum - Suctioned Gram Stain - Final 11/07/23 21:36 Sputum - Suctioned Sputum Culture - Final No growth. 10/02/23 06:40 Sputum - Suctioned Direct Acid Fast Bacilli Smear - Final 10/02/23 03:11 Blood - Central Line Blood Culture - Final No growth after 5 days. 10/02/23 03:11 Blood - Central Line Blood Culture - Final Coag negative Staphylococcus 10/02/23 06:40 Sputum - Suctioned Gram Stain - Final 10/02/23 06:40 Sputum - Suctioned Sputum Culture - Final 10/02/23 06:40 Urine Catheterized - Miguel Catheter Urine Culture - Final No growth. Procedures Date of Service Date of Service: 11/12/23 Assessment & Plan Assessment and plan (1) AMBER (acute kidney injury): Status: Acute Plan Acute Kidney Injury due to tubular injury UO good; No need for HD now Renal function improving C/W rest of current supportive care Labs AM; Shall closely follow up Progress Note: Quality Stroke Does the patient have a stroke diagnosis?: No
--- NOTE | 2023-11-12 14:59 | MHC.CM.PN ---
Pt continues care in ICU: PSV trials ongoing with pt experiencing anxiety at times. Meds adjusted and administered via G Tube: Pt able to get OOB to [facility] chair with assistance - clinical updates remitted to [facility]AN who are now requesting specific measurements of BUN/creatinine instead of just a demonstration of downward trending: [facility]AN is specifying BUN in the 60's and creatinine under 2. They also would like to see trach mask trials with consistent progress documented. Updated MD: Additional referrals made to [facility] ([facility] would need to be dropped) as well as [facility] and [facility] who take chronic trachs. CM to follow for finalization of d/c planning needs.
--- NOTE | 2023-11-12 15:23 | HO.WOUND ---
Wound Consult: Follow up 62yr old?M admitted to [facility] on 10/02 - See progress notes and H&P for detailed history.? Wound consult follow up for Coccyx wound and new neck ulceration.? Patient remains in ICU at the time of my consult / assessment. The patient was up to the specialty chair at the time of my assessment coccyx sacrum and scrotal area not assessed - per direct care team overall his tissue is looking better. No new topical recommendations made at this time. The neck - Trach site was assessed see below for details. The shape of the wound bed is not consistent with the trach plate - the shape is consistent with suture line tension, not pressure related. Sutures have been removed. Left Neck Etiology: Ulceration (suture related not pressure) and MASD (Moisture Associated Skin Damage) Measurements: 0.4cm x 0.2cm x 0.1cm Wound Bed: pink moist wound bed with thin veil of yellow slough Drainage / Odor: copious amount of drainage from trach site - clear thick liquid mucus Edges: ?well defined Kellen wound: Chronic moisture dark hyperpigmented tissue blanchable consistent with chronic moisture and not pressure - ? No Induration, Fluctuance noted Pain: patient expresses pain when assessed Goals of Treatment: ? Durafiber AG for moisture management and hydrocolloid application to provide protective seal from excessive moisture in periwound. Recommendations: 1. Turn and Reposition every 2 hours and as needed for patient comfort.? Use pillows or wedges to support off loading positions. Limit sit time to 2 hr increments and use waffle cushion when up to chair. 2. Off Load all bony prominences with use of pillows and heel boots if needed.? Apply Preventative foams where needed. ? 3. Monitor for incontinence and moisture control, use barrier creams when needed for prevention and treatment. 4. Provide adequate and supplemental nutrition.? 5. Continue low air loss mattress. 6. When applicable maintain blood glucose levels per Providers order. 7. Sacrum - Off Load Pressure - Cleanse with PH balance spray or wipes, pat dry. ?Apply thin layer of Triad to wound bed. Do not remove all of paste between applications as this may cause further skin damage.? Cover with foam dressing to aid in off loading and protection from friction. 8. Buttock, Perineal, and Scrotum - Cleanse with PH balance spray or wipes, pat dry. ?Apply thin layer of Triad to wound bed - only pat and dab no scrub and rub when soiling occurs. Reapply thin layer PRN after each episode of incontinence. 9. Trach Site - Provide trach care per unit policy. Cleanse open wound with NS moist gauze pat dry. Apply skin prep to periwound around stoma. Apply cut to size durafiber cover with cut Hydrocolloid. Change every 3 days and PRN. Change under trach gauze dressing frequently given amount of secretions to minimize damage to the peristomal tissue. Re-consult wound care Nurse for wound deterioration or wound changes.
[2023-11-12 18:16] LABS: Glucose, Whole Blood 139 mg/dL (60-115)
[2023-11-12] MEDS: Melatonin 3 MG TABLET 6 MG PO (20:18)
[2023-11-12] MEDS: Naloxone HCl 0.4 MG/ML VIAL 0.2 MG IVPUSH (21:57)
[2023-11-13] VITALS (33 sets, daily range): BP systolic 65–141; BP diastolic 34–90; PULSE 76–109; RESP 19–32; TEMP 34–37.5; O2SAT 91–99; BMI 22.4
[2023-11-13 00:25] LABS: Glucose, Whole Blood 111 mg/dL (60-115)
[2023-11-13] MEDS: 0.9 % Sodium Chloride Flush 10 ML SYRINGE IVFLUSH ×3 (00:56→15:53)
[2023-11-13 05:25] LABS: VBG Base Excess 0.5 mmol/L; VBG HCO3 22 mmol/L (22-26); VBG pCO2 27 mmHg; VBG pH 7.52 (7.32-7.43); VBG pO2 37 mmHg
[2023-11-13 05:29] LABS: MANUAL DIFF FLAG NO
[2023-11-13 05:30] LABS: Basophils Percent Auto 0.3 % (0-2); Eosinophils Absolute Auto 0.2 X10*3/uL (0.0-0.4); Eosinophils Percent Auto 3.1 % (0-4); Hematocrit 22.7 % (42.0-52.0); Hemoglobin 7.6 g/dl (14.0-18.0); Imm Gran Abs Auto 0.02 X10*3/uL (0.00-0.03); Imm Gran Pct Auto 0.3 % (0.0-0.4); Lymphocytes Absolute Auto 0.9 X10*3/uL (1.2-4.9); Lymphocytes Percent Auto 15.1 % (20-40); Mean Corpuscular HGB Conc 33.5 g/dl (31.0-36.0); Mean Corpuscular Hemoglobin 27.7 pg (27.0-33.0); Mean Corpuscular Volume 82.8 fL (80.0-98.0); Mean Platelet Volume 10.4 fL (9.4-12.4); Monocytes Absolute Auto 0.5 X10*3/uL (0.1-1.2); Monocytes Percent Auto 7.7 % (2-11); Neutrophils Absolute Auto 4.5 x10*3/uL (2.0-8.3); Neutrophils Percent Auto 73.5 % (45-73); Platelet Count 118 X10*3/uL (160-400); Red Blood Count 2.74 X10*6/uL (4.60-5.80); Red Cell Distribution Width 22.5 % (11.0-16.0); White Blood Count 6.1 X10*3/uL (4.8-10.8)
[2023-11-13] MEDS: HYDROmorphone HCl 0.5 MG/0.5 ML SYRINGE 0.25 MG IVPUSH ×3 (05:31→20:30)
[2023-11-13 05:39] LABS: Venous Blood Gas Refer to POC result
[2023-11-13 05:53] LABS: Albumin Level 3.4 g/dL (3.5-5.0); Anion Gap 14 (12-20); Blood Urea Nitrogen 116 mg/dL (9-16); Calcium 9.1 mg/dL (8.4-10.2); Carbon Dioxide 21 mmol/L (22-29); Chloride 114 mmol/L (96-108); Creatinine Clr Calc Pharmacy 22.7; Estimated Glomerular Filt Rate 19; Glucose Random 151 mg/dL (60-115); Magnesium 2.3 mg/dL (1.6-2.6); Phosphorus 2.5 mg/dL (2.7-4.5); Potassium 3.6 mmol/L (3.3-5.1); Sodium 145 mmol/L (135-145)
[2023-11-13 05:59] LABS: Glucose, Whole Blood 131 mg/dL (60-115)
--- NOTE | 2023-11-13 06:18 | PC.NURSE ---
Approx 1999- PRN dilaudid 0.5mg IVP given for nonverbal pain score of 4 per pain assessment. SBP 70-80. Pt lethargic, briefly opens eyes to name. Provider notified- to bedside. 240ml Water flush given via PEG with no effect. One time dose of Narcan 0.2mg IVP given with good effect- pt alert, yawning, shaking, visibly agitated. SBP now 90-100s, MAP >65. Provider aware. PRN Dilaudid dose decreased per OCT.
[2023-11-13] MEDS: Sodium,Potassium Phosphates POWD.PACK 2 PACKET PO (06:36)
[2023-11-13] MEDS: Chlorhexidine Gluc Oral Rinse 15 ML MOUTHWASH BUCCAL ×3 (07:37→21:37)
[2023-11-13] MEDS: lamoTRIgine 25 MG TABLET 50 MG PO ×2 (07:37→21:37)
[2023-11-13] MEDS: clonazePAM 1 MG TABLET 2 MG PO ×3 (07:37→21:37)
[2023-11-13] MEDS: QUEtiapine Fumarate 50 MG TABLET PO ×2 (07:37→21:37)
[2023-11-13] MEDS: Nystatin Powder 15 GM BOTTLE 1 APPL TOPICAL ×2 (07:37→21:30)
[2023-11-13] MEDS: Metoprolol Tartrate 50 MG TABLET PO ×3 (07:37→21:37)
[2023-11-13] MEDS: Bacitracin Oint 14 GM TUBE 1 APPL TOPICAL ×2 (07:38→21:30)
[2023-11-13] MEDS: Tobramycin Sulfate 80 MG/2 ML VIAL 300 MG INHALE ×2 (07:46→23:37)
--- NOTE | 2023-11-13 10:05 | P.PNCC_ITS ---
Subjective Subjective Date of Service: 11/13/23 Interval History: 62-year-old gentleman with underlying HIV on HAART, hep C, COPD admitted on 10/02/2023 with acute hypoxic respiratory failure secondary to influenza with superimposed bacterial superinfection requiring intubation, pressor, and ventilatory support. Cultures are negative to date. Shock component has resolved. Now with abdominal distention secondary to ileus versus SBO, evaluated by general surgeon and deemed to underlying ileus. Extubated 10/13/2023. On 10/14/2023 with an aspiration event resulting in refractory hypoxia requiring emergent intubation and ventilatory support. Post tracheostomy and gastrostomy on 10/21/2023. Now with significant critical illness myopathy. No events overnight. Off Precedex drip since 11/10/2023. Critical Care Time (minutes): 60 Physical Exam 2 Vital Signs: Vital Signs: Last Vital Signs Temp 98.2 F 11/13/23 08:00 Pulse 84 11/13/23 09:00 Resp 26 H 11/13/23 09:00 BP 99/62 11/13/23 09:00 Pulse Ox 94 11/13/23 09:00 O2 Del Method Mechanical Ventil ation 11/13/23 09:00 O2 Flow Rate 35 11/08/23 00:50 FiO2 30 11/13/23 09:00 BMI result Body Mass Index 22.4 Const: General: no acute distress, alert and awake Eyes: Sclerae: sclerae normal EOM: EOMs intact bilaterally Neck: Neck: Yes no lymphadenopathy, Yes trachea midline, Yes supple and Yes tracheostomy present Resp: Effort & Inspection: normal respiratory effort Auscultation: crackles bilateral Cardio: Rate: regular rate Rhythm: regular rhythm Heart sounds: no gallops, no murmurs and no rubs GI: Inspection: Yes G-tube present Palpation (GI): Soft to palpation and Other GI palpation findings present ( Nontender) Auscultation: normal bowel sounds Extrem: General: No clubbing, No cyanosis and Yes edema (1+ bilateral) Objective Data Labs 11/13/23 05:09 11/13/23 05:09 Labs: Laboratory Results - last 24 hr 11/12/23 11/12/23 11/13/23 12:01 18:12 00:21 WBC RBC Hgb Hct MCV MCH MCHC RDW Plt Count MPV Immature Gran % (Auto) Neut % (Auto) Lymph % (Auto) [place] % (Auto) Eos % (Auto) Baso % (Auto) Lymph # (Auto) [place] # (Auto) Eos # (Auto) Baso # (Auto) Abs Immat Gran (auto) Absolute Neuts (auto) Absolute Nucleated RBC Nucleated RBC % (auto) VBG pH VBG pCO2 VBG pO2 VBG HCO3 VBG O2 Saturation VBG Base Excess Sodium Potassium Chloride Carbon Dioxide Anion Gap BUN Creatinine Estim Creat Clear Calc Estimated GFR POC Glucose 144 H 139 H 111 Random Glucose Calcium Phosphorus Magnesium Albumin 11/13/23 11/13/23 11/13/23 05:09 05:17 05:56 WBC 6.1 RBC 2.74 L Hgb 7.6 L Hct 22.7 L MCV 82.8 MCH 27.7 MCHC 33.5 RDW 22.5 H Plt Count 118 L MPV 10.4 Immature Gran % (Auto) 0.3 Neut % (Auto) 73.5 H Lymph % (Auto) 15.1 L [place] % (Auto) 7.7 Eos % (Auto) 3.1 Baso % (Auto) 0.3 Lymph # (Auto) 0.9 L [place] # (Auto) 0.5 Eos # (Auto) 0.2 Baso # (Auto) 0.0 Abs Immat Gran (auto) 0.02 Absolute Neuts (auto) 4.5 Absolute Nucleated RBC 0.000 Nucleated RBC % (auto) 0.0 VBG pH 7.52 H VBG pCO2 27 VBG pO2 37 VBG HCO3 22 VBG O2 Saturation 70.0 VBG Base Excess 0.5 Sodium 145 Potassium 3.6 Chloride 114 H Carbon Dioxide 21 L Anion Gap 14 BUN 116 H Creatinine 3.24 H Estim Creat Clear Calc 22.7 Estimated GFR 19 POC Glucose 131 H Random Glucose 151 H Calcium 9.1 Phosphorus 2.5 L Magnesium 2.3 Albumin 3.4 L Microbiology Microbiology Results: Microbiology 11/07/23 21:36 Sputum - Suctioned Gram Stain - Final 11/07/23 21:36 Sputum - Suctioned Sputum Culture - Final No growth. 10/02/23 06:40 Sputum - Suctioned Direct Acid Fast Bacilli Smear - Final 10/02/23 03:11 Blood - Central Line Blood Culture - Final No growth after 5 days. 10/02/23 03:11 Blood - Central Line Blood Culture - Final Coag negative Staphylococcus 10/02/23 06:40 Sputum - Suctioned Gram Stain - Final 10/02/23 06:40 Sputum - Suctioned Sputum Culture - Final 10/02/23 06:40 Urine Catheterized - Miguel Catheter Urine Culture - Final No growth. Progress Note: A&P Assessment and plan (1) Status post tracheostomy: Status: Acute (2) Critical illness myopathy: Status: Acute (3) AMBER (acute kidney injury): Status: Acute (4) HIV (human immunodeficiency virus infection): Status: Acute (5) Acute hypoxic respiratory failure: Status: Acute (6) Hepatitis C: Status: Acute (7) COPD (chronic obstructive pulmonary disease): Status: Acute Plan Assessment: 62-year-old gentleman with underlying HIV on HAART, hep C admitted with acute hypoxic respiratory failure secondary to bacterial superinfection of underlying influenza now requiring ventilatory support Plan: Neuro: Anxiety component now controlled on Seroquel/Lamictal/Klonopin. Off Precedex drip. Cardiac: No acute issues. Pulmonary: Acute hypoxic respiratory failure secondary to bacterial superinfection of underlying influenza, improved and extubated on 10/13/2023. However with development of recurrent aspirations requiring re-intubation on 10/14/2023. Now status post tracheostomy/gastrostomy on 10/21/2023. Continue to titrate off ventilatory support as tolerated. Renal: Acute kidney injury. Non oliguric. Nephrology service care appreciated. Endo: No acute issues. GI: No acute issues. ID: No acute issues. Heme/Onc: No acute issues. Psych: No acute issues. Miscellaneous: Critical illness myopathy, continue with PT. Prophylaxis: Heparin Diet: Tube feeds Critical care time spent: 60 minutes Quality Stroke Does the patient have a stroke diagnosis?: No VTE Prior VTE?: No VTE Risk Level:: Medical - moderate - high VTE Device Contraindication: N/A - Device Ordered VTE Drug Contraindication: N/A - Med Ordered
[2023-11-13 11:45] LABS: Glucose, Whole Blood 148 mg/dL (60-115)
[2023-11-13 17:47] LABS: Glucose, Whole Blood 130 mg/dL (60-115)
[2023-11-13] MEDS: Phenazopyridine HCL 100 MG TABLET PO (21:40)
[2023-11-13] MEDS: Melatonin 3 MG TABLET 6 MG PO (21:43)
[2023-11-13] MEDS: Naloxone HCl 0.4 MG/ML VIAL IVPUSH ×2 (22:36→22:38)
[2023-11-13] MEDS: Albumin Human 25 % 100 ML IV ×2 (22:45→23:45)
[2023-11-13] MEDS: Lactated Ringers 500 ML 999 ML IV (22:45)
--- NOTE | 2023-11-13 22:52 | PM.CCN ---
Critical Care Event Note Summary Date of Service: 11/13/23 Code activated: No Narrative: This case had a high probability of a clinically significant, sudden, or life threatening deterioration of this patient's condition which required my full and direct attention, intervention and personal management. Critical Care Time (minutes): 45 Comment: 1030pm nursing personnel reported that the patient was obtunded and unresponsive, breathing through the vent, hypotensive with blood pressure of 60/44.? Patient had just received all of his night medications which included Lamictal, Seroquel, metoprolol and small dose of Dilaudid for pain. In addition he had been complaining of dysuria like symptoms or urge to pee without any output through the [place] catheter, single dose of Pyridium was given. Patient's pupils were pinpoint did, he was slightly diaphoretic, breathing through the vent and rather over breathing it, hypotensive.? LR 500 cc IV x1 ordered, 0.4 mg of Narcan IV push x1 given with very little response, a 2nd dose was given with slightly more responds as the patient at least was opening his eyes upon painful stimuli. ?His blood pressure however has been low in the past couple evening's will check full set of laboratories including lactic acid and depending on results we may re-culture him. I will also give him 2 bags of albumin salt. ?After 500 cc of LR, blood pressure came up to 87/58 with a map of 66, patient is yawning and more alert. ?Dilaudid discontinued 11:22, we have been notified that the patient's H&H is 6.5 and 19.? Patient has received packed red blood cells before, will order 2 units to be transfused.? Will check for occult blood in the stool. he is not on Heparin, will place him on PPI. Other lab results showed no electrolyte abnormality, creatinine of 3.15, lactic acid 1.3.? Albumin 3.1.? Will order blood cultures and urinalysis although he has had no fever, there is no leukocytosis, no tachycardia and overall the patient appears to be volume depleted in the setting of anemia, furthermore his low blood pressure was exacerbated by administration of Dilaudid which has been discontinued. Critical care time used for critical evaluation of this patient, diagnosis, treatment and coordination of care, review her records and documentation TOTAL CRITICAL CARE TIME? 45? MIN . discussion and coordination with consultants, completely separate from any procedures performed. . Patient's care was discussed in detail with Dr. Allen.? He is aware of all the above as well as the plan of care for this patient. .
[2023-11-13 22:58] LABS: Glucose, Whole Blood 117 mg/dL (60-115)
[2023-11-13 23:01] LABS: MANUAL DIFF FLAG NO
[2023-11-13 23:03] LABS: Basophils Percent Auto 0.2 % (0-2); Eosinophils Absolute Auto 0.2 X10*3/uL (0.0-0.4); Eosinophils Percent Auto 3.5 % (0-4); Imm Gran Abs Auto 0.01 X10*3/uL (0.00-0.03); Imm Gran Pct Auto 0.2 % (0.0-0.4); Lymphocytes Absolute Auto 0.9 X10*3/uL (1.2-4.9); Lymphocytes Percent Auto 16.1 % (20-40); Mean Corpuscular HGB Conc 33.2 g/dl (31.0-36.0); Mean Corpuscular Hemoglobin 27.3 pg (27.0-33.0); Mean Corpuscular Volume 82.4 fL (80.0-98.0); Mean Platelet Volume 9.9 fL (9.4-12.4); Monocytes Absolute Auto 0.4 X10*3/uL (0.1-1.2); Platelet Count 108 X10*3/uL (160-400); Red Blood Count 2.38 X10*6/uL (4.60-5.80); Red Cell Distribution Width 22.2 % (11.0-16.0); White Blood Count 5.5 X10*3/uL (4.8-10.8)
[2023-11-13 23:04] LABS: VBG Base Excess 0.6 mmol/L; VBG HCO3 24 mmol/L (22-26); VBG pCO2 35 mmHg; VBG pH 7.44 (7.32-7.43); VBG pO2 35 mmHg
[2023-11-13 23:14] LABS: Lactic Acid 1.3 mmol/L (0.5-2.0)
[2023-11-13 23:19] LABS: Alanine Aminotransferase 22 U/L (0-40); Albumin Level 3.1 g/dL (3.5-5.0); Alkaline Phosphatase 187 U/L (39-117); Anion Gap 13 (12-20); Aspartate Amino Transferase 34 U/L (5-37); Bilirubin Total 0.6 mg/dL (0.0-1.0); Blood Urea Nitrogen 110 mg/dL (9-16); Calcium 8.5 mg/dL (8.4-10.2); Carbon Dioxide 22 mmol/L (22-29); Chloride 113 mmol/L (96-108); Creatinine Clr Calc Pharmacy 23.3; Estimated Glomerular Filt Rate 20; Glucose Random 133 mg/dL (60-115); Magnesium 2.2 mg/dL (1.6-2.6); Phosphorus 3.2 mg/dL (2.7-4.5); Potassium 3.5 mmol/L (3.3-5.1); Sodium 144 mmol/L (135-145); Total Protein 6.5 g/dL (6.5-8.0)
[2023-11-13 23:20] LABS: Hemoglobin 6.5 g/dl (14.0-18.0)
[2023-11-13 23:21] LABS: Hematocrit 19.6 % (42.0-52.0)
[2023-11-13 23:54] LABS: Glucose, Whole Blood 130 mg/dL (60-115)
[2023-11-13 23:56] LABS: Venous Blood Gas Refer to POC result
[2023-11-14] VITALS (39 sets, daily range): BP systolic 89–145; BP diastolic 56–95; PULSE 79–107; RESP 15–31; TEMP 34.7–37.1; O2SAT 91–100; BMI 22.5
[2023-11-14 00:33] LABS: Ammonia 28 umol/L (13-55)
[2023-11-14] MEDS: Lactated Ringers 500 ML 999 ML IV (02:11)
[2023-11-14 02:49] LABS: Appearance Urine Clear; Color Urine Dark Yellow; Glucose Urine UA Negative (Negative); Leukocyte Esterase Urine Negative (Negative); Nitrite Urine Positive (Negative); Specific Gravity - Urine 1.015 (1.005-1.025); UMIC TRIGGER UA YES; Urine Blood Moderate (2+) (Negative); Urine Ketones Negative (Negative); Urine Protein >=1000 (4+) mg/dL (Neg-Trace)
[2023-11-14 02:58] LABS: Bacteria Urine None Seen (None Seen); Squamous Epithelial Cell Urine 0-2 /HPF (0-2); WBC Urine 0-5 /HPF (0-5)
[2023-11-14 05:19] LABS: VBG Base Excess -0.5 mmol/L; VBG HCO3 22 mmol/L (22-26); VBG pCO2 30 mmHg; VBG pH 7.48 (7.32-7.43); VBG pO2 34 mmHg
[2023-11-14 05:25] LABS: Glucose, Whole Blood 126 mg/dL (60-115)
[2023-11-14 05:32] LABS: Venous Blood Gas Refer to POC result
[2023-11-14 06:20] LABS: MANUAL DIFF FLAG NO
--- NOTE | 2023-11-14 06:56 | PC.NURSE ---
Approx 2230- SBP in the 60s, pt unresponsive, but overbreathing vent. POC 117. Provider to bedside- Narcan 0.4 mg IVP given x2 with some effectiveness- pt briefly opens eyes to physical stimuli. LR 500 mL IV bolus and 2 bottles of albumin given. SBP improved to 80-90s. Labs, U/A and blood cultures obtained. H/H 6.5/19.6- Provider notified- Type and Screen obtained. 2 units PRBCs, scheduled omeprazole, and stool guiac ordered. Provider decreased frequency/dosage of scheduled Metoprolol and Seroquel. Report given to candice MARTÍNEZ.
[2023-11-14 07:09] LABS: Eosinophils Absolute Auto 0.2 X10*3/uL (0.0-0.4); Eosinophils Percent Auto 3.7 % (0-4); Imm Gran Abs Auto 0.03 X10*3/uL (0.00-0.03); Imm Gran Pct Auto 0.7 % (0.0-0.4); Lymphocytes Absolute Auto 0.8 X10*3/uL (1.2-4.9); Lymphocytes Percent Auto 18.4 % (20-40); Mean Corpuscular HGB Conc 37.5 g/dl (31.0-36.0); Mean Corpuscular Hemoglobin 35.3 pg (27.0-33.0); Mean Corpuscular Volume 94.1 fL (80.0-98.0); Mean Platelet Volume 11.5 fL (9.4-12.4); Monocytes Absolute Auto 0.4 X10*3/uL (0.1-1.2); Monocytes Percent Auto 9.2 % (2-11); Platelet Count 109 X10*3/uL (160-400); Red Blood Count 1.87 X10*6/uL (4.60-5.80); Red Cell Distribution Width 26.8 % (11.0-16.0); White Blood Count 4.3 X10*3/uL (4.8-10.8)
[2023-11-14 07:19] LABS: Hemoglobin 6.6 g/dl (14.0-18.0)
[2023-11-14 07:20] LABS: Hematocrit 17.6 % (42.0-52.0)
[2023-11-14] MEDS: Omeprazole/Na Bicarb Oral Susp 20 MG/10 ML UD Cup 40 MG PO (07:36)
[2023-11-14] MEDS: Tobramycin Sulfate 80 MG/2 ML VIAL 300 MG INHALE ×2 (07:49→22:48)
[2023-11-14] MEDS: lamoTRIgine 25 MG TABLET 50 MG PO ×2 (07:57→20:41)
[2023-11-14] MEDS: Chlorhexidine Gluc Oral Rinse 15 ML MOUTHWASH BUCCAL ×3 (07:57→20:41)
[2023-11-14] MEDS: QUEtiapine Fumarate 25 MG TABLET PO ×2 (07:57→20:42)
[2023-11-14] MEDS: clonazePAM 1 MG TABLET 2 MG PO (07:57)
[2023-11-14] MEDS: 0.9 % Sodium Chloride Flush 10 ML SYRINGE IVFLUSH ×4 (07:57→23:30)
[2023-11-14] MEDS: Bacitracin Oint 14 GM TUBE 1 APPL TOPICAL (07:58)
[2023-11-14] MEDS: Metoprolol Tartrate 50 MG TABLET PO (07:58)
[2023-11-14] MEDS: Nystatin Powder 15 GM BOTTLE 1 APPL TOPICAL ×2 (07:58→20:42)
[2023-11-14 08:49] LABS: Anion Gap 17 (12-20); Blood Urea Nitrogen 106 mg/dL (9-16); Carbon Dioxide 18 mmol/L (22-29); Chloride 110 mmol/L (96-108); Creatinine Clr Calc Pharmacy 23.8; Potassium 3.5 mmol/L (3.3-5.1)
[2023-11-14 08:50] LABS: Albumin Level 3.7 g/dL (3.5-5.0); Calcium 9.3 mg/dL (8.4-10.2); Estimated Glomerular Filt Rate 20; Glucose Random 137 mg/dL (60-115); Magnesium 2.3 mg/dL (1.6-2.6); Phosphorus 3.4 mg/dL (2.7-4.5); Sodium 145 mmol/L (135-145)
--- NOTE | 2023-11-14 09:41 | PM.CCPN ---
Subjective Subjective Date of Service: 11/14/23 Interval History: 62-year-old gentleman with underlying HIV on HAART, hep C, COPD admitted on 10/02/2023 with acute hypoxic respiratory failure secondary to influenza with superimposed bacterial superinfection requiring intubation, pressor, and ventilatory support. Cultures are negative to date. Shock component has resolved. Now with abdominal distention secondary to ileus versus SBO, evaluated by general surgeon and deemed to underlying ileus. Extubated 10/13/2023. On 10/14/2023 with an aspiration event resulting in refractory hypoxia requiring emergent intubation and ventilatory support. Post tracheostomy and gastrostomy on 10/21/2023. Now with significant critical illness myopathy. No events overnight. Critical Care Time (minutes): 60 Physical Exam Vital Signs: Vital Signs: Last Vital Signs Temp 98.2 F 11/14/23 09:00 Pulse 79 11/14/23 09:00 Resp 24 H 11/14/23 09:00 BP 89/59 L 11/14/23 09:00 Pulse Ox 91 L 11/14/23 09:00 O2 Del Method Mechanical Ventil ation 11/14/23 09:00 O2 Flow Rate 30 11/13/23 12:00 FiO2 30 11/14/23 09:00 BMI result Body Mass Index 22.5 Const: General: no acute distress and lethargic Orientation/consciousness: lethargic Eyes: Sclerae: sclerae normal EOM: EOMs intact bilaterally Neck: Neck: Yes no lymphadenopathy, Yes supple and Yes tracheostomy present Resp: Auscultation: crackles bilateral Cardio: Rate: regular rate Rhythm: regular rhythm Heart sounds: no gallops, no murmurs and no rubs GI: Inspection: Yes G-tube present Palpation (GI): Soft to palpation and Other GI palpation findings present ( Nontender) Auscultation: normal bowel sounds Extrem: General: No clubbing, No cyanosis and Yes edema (1+ bilateral) Objective Data Labs 11/14/23 05:08 11/14/23 05:08 Labs: Laboratory Results - last 24 hr 11/13/23 11/13/23 11/13/23 11:42 17:44 22:51 WBC RBC Hgb Hct MCV MCH MCHC RDW Plt Count MPV Immature Gran % (Auto) Neut % (Auto) Lymph % (Auto) [place] % (Auto) Eos % (Auto) Baso % (Auto) Lymph # (Auto) [place] # (Auto) Eos # (Auto) Baso # (Auto) Abs Immat Gran (auto) Absolute Neuts (auto) Absolute Nucleated RBC Nucleated RBC % (auto) VBG pH VBG pCO2 VBG pO2 VBG HCO3 VBG O2 Saturation VBG Base Excess Sodium Potassium Chloride Carbon Dioxide Anion Gap BUN Creatinine Estim Creat Clear Calc Estimated GFR POC Glucose 148 H 130 H 117 H Random Glucose Lactic Acid Calcium Phosphorus Magnesium Total Bilirubin AST ALT Alkaline Phosphatase Ammonia Total Protein Albumin Urine Color Urine Appearance Urine pH Ur Specific [place] Urine Protein Urine Glucose (UA) Urine Ketones Urine Blood Urine Nitrite Ur Leukocyte Esterase Urine RBC Urine WBC Ur Squamous Epith Cells Urine Bacteria Hyaline Casts Blood Type Antibody Screen JENNIFER, Polyspecific Positive JENNIFER Work-up Crossmatch ([facility]) Blood Bank Comment 11/13/23 11/13/23 11/13/23 22:54 22:56 23:32 WBC 5.5 RBC 2.38 L Hgb 6.5 L* Hct 19.6 L* MCV 82.4 MCH 27.3 MCHC 33.2 RDW 22.2 H Plt Count 108 L MPV 9.9 Immature Gran % (Auto) 0.2 Neut % (Auto) 72.0 Lymph % (Auto) 16.1 L [place] % (Auto) 8.0 Eos % (Auto) 3.5 Baso % (Auto) 0.2 Lymph # (Auto) 0.9 L [place] # (Auto) 0.4 Eos # (Auto) 0.2 Baso # (Auto) 0.0 Abs Immat Gran (auto) 0.01 Absolute Neuts (auto) 4.0 Absolute Nucleated RBC 0.000 Nucleated RBC % (auto) 0.0 VBG pH 7.44 H VBG pCO2 35 VBG pO2 35 VBG HCO3 24 VBG O2 Saturation 61.0 VBG Base Excess 0.6 Sodium 144 Potassium 3.5 Chloride 113 H Carbon Dioxide 22 Anion Gap 13 BUN 110 H Creatinine 3.15 H Estim Creat Clear Calc 23.3 Estimated GFR 20 POC Glucose Random Glucose 133 H Lactic Acid 1.3 Calcium 8.5 D Phosphorus 3.2 Magnesium 2.2 Total Bilirubin 0.6 AST 34 ALT 22 Alkaline Phosphatase 187 H Ammonia Total Protein 6.5 Albumin 3.1 L Urine Color Urine Appearance Urine pH Ur Specific [place] Urine Protein Urine Glucose (UA) Urine Ketones Urine Blood Urine Nitrite Ur Leukocyte Esterase Urine RBC Urine WBC Ur Squamous Epith Cells Urine Bacteria Hyaline Casts Blood Type O Positive Antibody Screen POSITIVE JENNIFER, Polyspecific NEGATIVE Positive JENNIFER Work-up TNP Crossmatch ([facility]) See Detail Blood Bank Comment Specimen 11/13/23 11/14/23 11/14/23 23:50 00:09 02:30 WBC RBC Hgb Hct MCV MCH MCHC RDW Plt Count MPV Immature Gran % (Auto) Neut % (Auto) Lymph % (Auto) [place] % (Auto) Eos % (Auto) Baso % (Auto) Lymph # (Auto) [place] # (Auto) Eos # (Auto) Baso # (Auto) Abs Immat Gran (auto) Absolute Neuts (auto) Absolute Nucleated RBC Nucleated RBC % (auto) VBG pH VBG pCO2 VBG pO2 VBG HCO3 VBG O2 Saturation VBG Base Excess Sodium Potassium Chloride Carbon Dioxide Anion Gap BUN Creatinine Estim Creat Clear Calc Estimated GFR POC Glucose 130 H Random Glucose Lactic Acid Calcium Phosphorus Magnesium Total Bilirubin AST ALT Alkaline Phosphatase Ammonia 28 Total Protein Albumin Urine Color Dark Yellow Urine Appearance Clear Urine pH 6.0 Ur Specific [place] 1.015 Urine Protein >=1000 (4+) H Urine Glucose (UA) Negative Urine Ketones Negative Urine Blood Moderate (2+) H Urine Nitrite Positive H Ur Leukocyte Esterase Negative Urine RBC 6-10 H Urine WBC 0-5 Ur Squamous Epith Cells 0-2 Urine Bacteria None Seen Hyaline Casts 3-5 Blood Type Antibody Screen JENNIFER, Polyspecific Positive JENNIFER Work-up Crossmatch ([facility]) Blood Bank Comment 11/14/23 11/14/23 11/14/23 05:08 05:11 05:21 WBC 4.3 L RBC 1.87 L D Hgb 6.6 L* Hct 17.6 L* MCV 94.1 D MCH 35.3 H MCHC 37.5 H RDW 26.8 H Plt Count 109 L MPV 11.5 Immature Gran % (Auto) 0.7 H Neut % (Auto) 68.0 Lymph % (Auto) 18.4 L [place] % (Auto) 9.2 Eos % (Auto) 3.7 Baso % (Auto) 0.0 Lymph # (Auto) 0.8 L [place] # (Auto) 0.4 Eos # (Auto) 0.2 Baso # (Auto) 0.0 Abs Immat Gran (auto) 0.03 Absolute Neuts (auto) 3.0 Absolute Nucleated RBC 0.000 Nucleated RBC % (auto) 0.0 VBG pH 7.48 H VBG pCO2 30 VBG pO2 34 VBG HCO3 22 VBG O2 Saturation 62.0 VBG Base Excess -0.5 Sodium 145 Potassium 3.5 Chloride 110 H Carbon Dioxide 18 L Anion Gap 17 BUN 106 H Creatinine 3.10 H Estim Creat Clear Calc 23.8 Estimated GFR 20 POC Glucose 126 H Random Glucose 137 H Lactic Acid Calcium 9.3 D Phosphorus 3.4 Magnesium 2.3 Total Bilirubin AST ALT Alkaline Phosphatase Ammonia Total Protein Albumin 3.7 Urine Color Urine Appearance Urine pH Ur Specific [place] Urine Protein Urine Glucose (UA) Urine Ketones Urine Blood Urine Nitrite Ur Leukocyte Esterase Urine RBC Urine WBC Ur Squamous Epith Cells Urine Bacteria Hyaline Casts Blood Type Antibody Screen JENNIFER, Polyspecific Positive JENNIFER Work-up Crossmatch ([facility]) Blood Bank Comment Microbiology Microbiology Results: Microbiology 11/07/23 21:36 Sputum - Suctioned Gram Stain - Final 11/07/23 21:36 Sputum - Suctioned Sputum Culture - Final No growth. 10/02/23 06:40 Sputum - Suctioned Direct Acid Fast Bacilli Smear - Final 10/02/23 03:11 Blood - Central Line Blood Culture - Final No growth after 5 days. 10/02/23 03:11 Blood - Central Line Blood Culture - Final Coag negative Staphylococcus 10/02/23 06:40 Sputum - Suctioned Gram Stain - Final 10/02/23 06:40 Sputum - Suctioned Sputum Culture - Final 10/02/23 06:40 Urine Catheterized - Miguel Catheter Urine Culture - Final No growth. Progress Note: A&P Assessment and plan (1) Status post tracheostomy: Status: Acute (2) Critical illness myopathy: Status: Acute (3) AMBER (acute kidney injury): Status: Acute (4) HIV (human immunodeficiency virus infection): Status: Acute (5) Acute hypoxic respiratory failure: Status: Acute (6) Hepatitis C: Status: Acute (7) COPD (chronic obstructive pulmonary disease): Status: Acute Plan Assessment: 62-year-old gentleman with underlying HIV on HAART, hep C admitted with acute hypoxic respiratory failure secondary to bacterial superinfection of underlying influenza now requiring ventilatory support Plan: Neuro: Anxiety component now controlled on Seroquel/Lamictal. Off Precedex drip. Cardiac: No acute issues. Pulmonary: Acute hypoxic respiratory failure secondary to bacterial superinfection of underlying influenza, improved and extubated on 10/13/2023. However with development of recurrent aspirations requiring re-intubation on 10/14/2023. Now status post tracheostomy/gastrostomy on 10/21/2023. Continue to titrate off ventilatory support as tolerated. Renal: Acute kidney injury, improving. Non oliguric. Nephrology service care appreciated. Endo: No acute issues. GI: No acute issues. ID: No acute issues. Heme/Onc: Dilutional/blood draws related anemia. To receive 2 units of PRBC. Psych: No acute issues. Miscellaneous: Critical illness myopathy, continue with PT. Prophylaxis: Heparin Diet: Tube feeds Critical care time spent: 60 minutes Quality Stroke Does the patient have a stroke diagnosis?: No VTE Prior VTE?: No VTE Risk Level:: Medical - moderate - high VTE Device Contraindication: N/A - Device Ordered VTE Drug Contraindication: N/A - Med Ordered
[2023-11-14 11:44] LABS: Glucose, Whole Blood 135 mg/dL (60-115)
[2023-11-14] MEDS: Furosemide 40 MG/4 ML VIAL IVPUSH (17:29)
[2023-11-14] MEDS: Metoprolol Tartrate 25 MG TABLET PO (17:29)
[2023-11-14 17:34] LABS: Glucose, Whole Blood 124 mg/dL (60-115)
[2023-11-14 18:41] LABS: OBS Int Ctl Valid YES; OBS1 NEGATIVE (NEGATIVE)
[2023-11-14] MEDS: Melatonin 3 MG TABLET 6 MG PO (21:48)
[2023-11-14 22:41] LABS: Hematocrit 25.5 % (42.0-52.0); Hemoglobin 8.5 g/dl (14.0-18.0)
[2023-11-14 22:55] LABS: Anion Gap 14 (12-20); Blood Urea Nitrogen 108 mg/dL (9-16); Calcium 8.9 mg/dL (8.4-10.2); Carbon Dioxide 23 mmol/L (22-29); Chloride 113 mmol/L (96-108); Creatinine Clr Calc Pharmacy 23.7; Estimated Glomerular Filt Rate 20; Glucose Random 135 mg/dL (60-115); Potassium 3.5 mmol/L (3.3-5.1); Sodium 146 mmol/L (135-145)
[2023-11-14] MEDS: Potassium Chloride Packet 20 MEQ PACKET PO (23:26)
[2023-11-15] VITALS (35 sets, daily range): BP systolic 95–148; BP diastolic 58–97; PULSE 86–116; RESP 13–30; TEMP 35–36.9; O2SAT 89–99; BMI 23.4
[2023-11-15 00:14] LABS: Glucose, Whole Blood 128 mg/dL (60-115)
[2023-11-15] MEDS: Metoprolol Tartrate 25 MG TABLET PO (01:50)
[2023-11-15 05:18] LABS: Basophils Percent Auto 0.2 % (0-2); Eosinophils Absolute Auto 0.3 X10*3/uL (0.0-0.4); Eosinophils Percent Auto 5.2 % (0-4); Hematocrit 26.1 % (42.0-52.0); Hemoglobin 8.7 g/dl (14.0-18.0); Imm Gran Abs Auto 0.02 X10*3/uL (0.00-0.03); Imm Gran Pct Auto 0.3 % (0.0-0.4); Lymphocytes Absolute Auto 1.1 X10*3/uL (1.2-4.9); Lymphocytes Percent Auto 17.9 % (20-40); MANUAL DIFF FLAG NO; Mean Corpuscular HGB Conc 33.3 g/dl (31.0-36.0); Mean Platelet Volume 10.5 fL (9.4-12.4); Monocytes Absolute Auto 0.6 X10*3/uL (0.1-1.2); Monocytes Percent Auto 10.2 % (2-11); Neutrophils Absolute Auto 3.9 x10*3/uL (2.0-8.3); Neutrophils Percent Auto 66.2 % (45-73); Platelet Count 133 X10*3/uL (160-400); Red Cell Distribution Width 20.2 % (11.0-16.0); White Blood Count 5.9 X10*3/uL (4.8-10.8)
[2023-11-15 05:21] LABS: VBG Base Excess 0.1 mmol/L; VBG HCO3 24 mmol/L (22-26); VBG pCO2 36 mmHg; VBG pH 7.42 (7.32-7.43); VBG pO2 49 mmHg
[2023-11-15 05:22] LABS: Venous Blood Gas Refer to POC result
[2023-11-15 05:36] LABS: Albumin Level 3.6 g/dL (3.5-5.0); Anion Gap 17 (12-20); Blood Urea Nitrogen 109 mg/dL (9-16); Carbon Dioxide 22 mmol/L (22-29); Chloride 113 mmol/L (96-108); Creatinine Clr Calc Pharmacy 22.8; Estimated Glomerular Filt Rate 19; Glucose Random 150 mg/dL (60-115); Magnesium 2.3 mg/dL (1.6-2.6); Phosphorus 3.9 mg/dL (2.7-4.5); Potassium 3.7 mmol/L (3.3-5.1); Sodium 148 mmol/L (135-145)
[2023-11-15] MEDS: Acetaminophen Oral Liquid 650 MG/20.3 ML SOLUTION 975 MG PO ×3 (05:40→22:21)
[2023-11-15] MEDS: Omeprazole/Na Bicarb Oral Susp 20 MG/10 ML UD Cup 40 MG PO (05:55)
--- NOTE | 2023-11-15 07:38 | P.PNCC_ITS ---
Subjective Subjective Date of Service: 11/15/23 Critical Care Time (minutes): 60 Physical Exam 2 Vital Signs: Vital Signs: Last Vital Signs Temp 98.0 F 11/15/23 03:00 Pulse 103 H 11/15/23 07:00 Resp 20 11/15/23 07:00 BP 126/81 11/15/23 07:00 Pulse Ox 90 L 11/15/23 07:00 O2 Del Method Mechanical Ventil ation 11/15/23 07:00 O2 Flow Rate 30 11/13/23 12:00 FiO2 30 11/15/23 07:00 BMI result Body Mass Index 23.4 Const: General: cooperative, healthy appearing, comfortable, no acute distress, well developed, alert and awake HEENT: Other: tracheostomy in place, clean, dry, intact Head: Yes normal to inspection, Yes normocephalic and Yes atraumatic Eyes: General: appearance normal, both eyes and all related structures Neck: Other: as described above Chest: Chest palpation & inspection: normal inspection of the chest Resp: Other: some appreciable rhonchi; no appreciable rales, wheezing Effort & Inspection: normal respiratory effort Cardio: Rate: regular rate Rhythm: regular rhythm GI: Inspection: Yes normal to inspection, No Abdominal wall edema and No distended Palpation (GI): Soft to palpation, not firm, nontender, no guarding and not rigid : Male General Exam: Yes normal external exam Skin: General skin exam: no rashes or lesions noted Neuro: General: tone normal, moves all extremities and no focal motor deficits Extrem: General: Yes normal to inspection, Yes full ROM, Yes capillary refill normal and Yes no clubbing, cyanosis or edema Psych: Appearance: grossly normal Objective Data Labs 11/15/23 05:05 11/15/23 05:05 Labs: Laboratory Results - last 24 hr 11/13/23 11/13/23 11/14/23 23:32 23:32 05:08 WBC RBC Hgb Hct MCV MCH MCHC RDW Plt Count MPV Immature Gran % (Auto) Neut % (Auto) Lymph % (Auto) [place] % (Auto) Eos % (Auto) Baso % (Auto) Lymph # (Auto) [place] # (Auto) Eos # (Auto) Baso # (Auto) Abs Immat Gran (auto) Absolute Neuts (auto) Absolute Nucleated RBC Nucleated RBC % (auto) VBG pH VBG pCO2 VBG pO2 VBG HCO3 VBG O2 Saturation VBG Base Excess Sodium 145 Potassium 3.5 Chloride 110 H Carbon Dioxide 18 L Anion Gap 17 BUN 106 H Creatinine 3.10 H Estim Creat Clear Calc 23.8 Estimated GFR 20 POC Glucose Random Glucose 137 H Calcium 9.3 D Phosphorus 3.4 Magnesium 2.3 Albumin 3.7 Stool Occult Blood Blood Type O Positive Antibody Screen POSITIVE Antibody Identification Inconclusive Anti-M JENNIFER, Polyspecific NEGATIVE Positive JENNIFER Work-up TNP Crossmatch ([facility]) See Detail Blood Bank Comment Specimen 11/14/23 11/14/23 11/14/23 11:41 17:31 18:25 WBC RBC Hgb Hct MCV MCH MCHC RDW Plt Count MPV Immature Gran % (Auto) Neut % (Auto) Lymph % (Auto) [place] % (Auto) Eos % (Auto) Baso % (Auto) Lymph # (Auto) [place] # (Auto) Eos # (Auto) Baso # (Auto) Abs Immat Gran (auto) Absolute Neuts (auto) Absolute Nucleated RBC Nucleated RBC % (auto) VBG pH VBG pCO2 VBG pO2 VBG HCO3 VBG O2 Saturation VBG Base Excess Sodium Potassium Chloride Carbon Dioxide Anion Gap BUN Creatinine Estim Creat Clear Calc Estimated GFR POC Glucose 135 H 124 H Random Glucose Calcium Phosphorus Magnesium Albumin Stool Occult Blood NEGATIVE Blood Type Antibody Screen Antibody Identification JENNIFER, Polyspecific Positive JENNIFER Work-up Crossmatch ([facility]) Blood Bank Comment 11/14/23 11/15/23 11/15/23 22:30 00:11 05:05 WBC 5.9 RBC 3.00 L D Hgb 8.5 L D 8.7 L Hct 25.5 L D 26.1 L MCV 87.0 D MCH 29.0 MCHC 33.3 RDW 20.2 H Plt Count 133 L MPV 10.5 Immature Gran % (Auto) 0.3 Neut % (Auto) 66.2 Lymph % (Auto) 17.9 L [place] % (Auto) 10.2 Eos % (Auto) 5.2 H Baso % (Auto) 0.2 Lymph # (Auto) 1.1 L [place] # (Auto) 0.6 Eos # (Auto) 0.3 Baso # (Auto) 0.0 Abs Immat Gran (auto) 0.02 Absolute Neuts (auto) 3.9 Absolute Nucleated RBC 0.000 Nucleated RBC % (auto) 0.0 VBG pH VBG pCO2 VBG pO2 VBG HCO3 VBG O2 Saturation VBG Base Excess Sodium 146 H 148 H Potassium 3.5 3.7 Chloride 113 H 113 H Carbon Dioxide 23 22 Anion Gap 14 17 BUN 108 H 109 H Creatinine 3.11 H 3.24 H Estim Creat Clear Calc 23.7 22.8 Estimated GFR 20 19 POC Glucose 128 H Random Glucose 135 H 150 H Calcium 8.9 9.0 Phosphorus 3.9 Magnesium 2.3 Albumin 3.6 Stool Occult Blood Blood Type Antibody Screen Antibody Identification JENNIFER, Polyspecific Positive JENNIFER Work-up Crossmatch ([facility]) Blood Bank Comment 11/15/23 05:13 WBC RBC Hgb Hct MCV MCH MCHC RDW Plt Count MPV Immature Gran % (Auto) Neut % (Auto) Lymph % (Auto) [place] % (Auto) Eos % (Auto) Baso % (Auto) Lymph # (Auto) [place] # (Auto) Eos # (Auto) Baso # (Auto) Abs Immat Gran (auto) Absolute Neuts (auto) Absolute Nucleated RBC Nucleated RBC % (auto) VBG pH 7.42 VBG pCO2 36 VBG pO2 49 VBG HCO3 24 VBG O2 Saturation 82.0 VBG Base Excess 0.1 Sodium Potassium Chloride Carbon Dioxide Anion Gap BUN Creatinine Estim Creat Clear Calc Estimated GFR POC Glucose Random Glucose Calcium Phosphorus Magnesium Albumin Stool Occult Blood Blood Type Antibody Screen Antibody Identification JENNIFER, Polyspecific Positive JENNIFER Work-up Crossmatch ([facility]) Blood Bank Comment Microbiology Microbiology Results: Microbiology 11/14/23 02:10 Blood - Venous Blood Culture - Preliminary No growth after 24 hours. 11/14/23 02:09 Blood - Venous Blood Culture - Preliminary No growth after 24 hours. 11/07/23 21:36 Sputum - Suctioned Gram Stain - Final 11/07/23 21:36 Sputum - Suctioned Sputum Culture - Final No growth. 10/02/23 06:40 Sputum - Suctioned Direct Acid Fast Bacilli Smear - Final 10/02/23 03:11 Blood - Central Line Blood Culture - Final No growth after 5 days. 10/02/23 03:11 Blood - Central Line Blood Culture - Final Coag negative Staphylococcus 10/02/23 06:40 Sputum - Suctioned Gram Stain - Final 10/02/23 06:40 Sputum - Suctioned Sputum Culture - Final 10/02/23 06:40 Urine Catheterized - Miguel Catheter Urine Culture - Final No growth. Progress Note: A&P Assessment and plan (1) Status post tracheostomy: Status: Acute (2) Critical illness myopathy: Status: Acute (3) AMBER (acute kidney injury): Status: Acute (4) HIV (human immunodeficiency virus infection): Status: Acute (5) Respiratory failure: Status: Acute (6) COPD (chronic obstructive pulmonary disease): Status: Acute (7) Hepatitis C: Status: Acute Plan Patient is a 62 Y M with HIV, HCV, COPD, presenting initially on 10/02 to ED w/ dyspnea, found to have influenza, c/f bacterial super-infection, c/b acute hypoxic respiratory failure, intubated; ICU course c/b septic shock, acute renal insufficiency, ileus; of note, patient extubated 10/12, re-intubated 10/13 d/t aspiration, critical illness myopathy, s/p trach/PEG 10/20 N: anxiety, well-controlled CV: no acute issues R: acute hypoxic respiratory failure d/t initially influenza, c/b critical illness myopathy, aspiration; wean ventilator as tolerated; COPD GI: s/p PEG 10/20, tube feeds : acute renal insufficiency, improved H: anemia, likely iatrogenic, transfuse as needed; chemical DVT prophylaxis ID: no acute issues; HIV, HCV E: no acute issues MSK: critical illness myopathy, PT Quality Stroke Does the patient have a stroke diagnosis?: No VTE Prior VTE?: No VTE Risk Level:: Medical - moderate - high VTE Device Contraindication: N/A - Device Ordered VTE Drug Contraindication: N/A - Med Ordered
[2023-11-15] MEDS: Bacitracin Oint 14 GM TUBE 1 APPL TOPICAL ×2 (07:59→20:03)
[2023-11-15] MEDS: Nystatin Powder 15 GM BOTTLE 1 APPL TOPICAL ×2 (07:59→20:03)
[2023-11-15] MEDS: 0.9 % Sodium Chloride Flush 10 ML SYRINGE IVFLUSH ×2 (07:59→17:41)
[2023-11-15] MEDS: lamoTRIgine 25 MG TABLET 50 MG PO ×2 (08:02→20:03)
[2023-11-15] MEDS: QUEtiapine Fumarate 25 MG TABLET PO ×2 (08:02→20:03)
[2023-11-15] MEDS: Chlorhexidine Gluc Oral Rinse 15 ML MOUTHWASH BUCCAL ×3 (08:02→20:03)
[2023-11-15] MEDS: Tobramycin Sulfate 80 MG/2 ML VIAL 300 MG INHALE ×2 (09:27→21:07)
--- NOTE | 2023-11-15 09:42 | MHC.CLN ---
F/U PT TOLERATING TF WITH LOW RESIDUALS PER NSG REVIEWED LABS PT RECEIVING TF NEPRO AT MAX GOAL RATE 45ML/HR WITH 240ML Q 4 HR PROVIDES 1944KCALS (30KCALS/KG), 87G PROTEIN (1.3G/KG), 2225ML TOTAL WATER FROM FORMULA AND FLUSHES (33ML/KG) TF WILL PROMOTE WOUND HEALING AND RENAL FRIENDLY RECOMMEND INCREASING FREE WATER FLUSHES TO 300ML FWF Q 4 HRS TO PROVIDE 2585ML TOTAL WATER FROM FORMULA AND FLUSHES (39ML/KG) CONTINUE TO MONITOR TOLERANCE, RESIDUALS, AND LYTES
--- NOTE | 2023-11-15 10:15 | PM.PNNEP ---
Subjective Subjective Date of Service: 11/16/23 Interval history: Events noted UO improved Cr around 3 Physical Exam Vital Signs: Vital Signs: Last Vital Signs Temp 98.5 F 11/15/23 08:00 Pulse 91 11/15/23 10:00 Resp 21 H 11/15/23 10:00 BP 95/62 11/15/23 10:00 Pulse Ox 92 11/15/23 10:00 O2 Del Method Mechanical Ventil ation 11/15/23 10:00 O2 Flow Rate 30 11/13/23 12:00 FiO2 30 11/15/23 10:00 BMI result Body Mass Index 23.4 Const: General: no acute distress and ill appearing HEENT: Head: Yes normocephalic Mouth: Normal oral and palatal mucosa present Neck: Neck: Yes supple Resp: Auscultation: clear to auscultation bilaterally and diminished lung sounds Cardio: Jugular venous distension: no JVD Palpation: no palpable S3 Rate: regular rate Heart sounds: no rubs GI: Palpation (GI): Soft to palpation Auscultation: normal bowel sounds Neuro: Other: Intubated and sedated Motor exam (neuro): no asterixis Objective Data Labs 11/16/23 05:27 11/16/23 05:27 Labs: Laboratory Results - last 24 hr 11/13/23 11/13/23 11/14/23 23:32 23:32 11:41 WBC RBC Hgb Hct MCV MCH MCHC RDW Plt Count MPV Immature Gran % (Auto) Neut % (Auto) Lymph % (Auto) [place] % (Auto) Eos % (Auto) Baso % (Auto) Lymph # (Auto) [place] # (Auto) Eos # (Auto) Baso # (Auto) Abs Immat Gran (auto) Absolute Neuts (auto) Absolute Nucleated RBC Nucleated RBC % (auto) VBG pH VBG pCO2 VBG pO2 VBG HCO3 VBG O2 Saturation VBG Base Excess Sodium Potassium Chloride Carbon Dioxide Anion Gap BUN Creatinine Estim Creat Clear Calc Estimated GFR POC Glucose 135 H Random Glucose Calcium Phosphorus Magnesium Albumin Stool Occult Blood Blood Type O Positive Antibody Screen POSITIVE Antibody Identification Inconclusive Anti-M JENNIFER, Polyspecific NEGATIVE Positive JENNIFER Work-up TNP Crossmatch ([facility]) See Detail Blood Bank Comment Specimen 11/14/23 11/14/23 11/14/23 17:31 18:25 22:30 WBC RBC Hgb 8.5 L D Hct 25.5 L D MCV MCH MCHC RDW Plt Count MPV Immature Gran % (Auto) Neut % (Auto) Lymph % (Auto) [place] % (Auto) Eos % (Auto) Baso % (Auto) Lymph # (Auto) [place] # (Auto) Eos # (Auto) Baso # (Auto) Abs Immat Gran (auto) Absolute Neuts (auto) Absolute Nucleated RBC Nucleated RBC % (auto) VBG pH VBG pCO2 VBG pO2 VBG HCO3 VBG O2 Saturation VBG Base Excess Sodium 146 H Potassium 3.5 Chloride 113 H Carbon Dioxide 23 Anion Gap 14 BUN 108 H Creatinine 3.11 H Estim Creat Clear Calc 23.7 Estimated GFR 20 POC Glucose 124 H Random Glucose 135 H Calcium 8.9 Phosphorus Magnesium Albumin Stool Occult Blood NEGATIVE Blood Type Antibody Screen Antibody Identification JENNIFER, Polyspecific Positive JENNIFER Work-up Crossmatch ([facility]) Blood Bank Comment 11/15/23 11/15/23 11/15/23 00:11 05:05 05:13 WBC 5.9 RBC 3.00 L D Hgb 8.7 L Hct 26.1 L MCV 87.0 D MCH 29.0 MCHC 33.3 RDW 20.2 H Plt Count 133 L MPV 10.5 Immature Gran % (Auto) 0.3 Neut % (Auto) 66.2 Lymph % (Auto) 17.9 L [place] % (Auto) 10.2 Eos % (Auto) 5.2 H Baso % (Auto) 0.2 Lymph # (Auto) 1.1 L [place] # (Auto) 0.6 Eos # (Auto) 0.3 Baso # (Auto) 0.0 Abs Immat Gran (auto) 0.02 Absolute Neuts (auto) 3.9 Absolute Nucleated RBC 0.000 Nucleated RBC % (auto) 0.0 VBG pH 7.42 VBG pCO2 36 VBG pO2 49 VBG HCO3 24 VBG O2 Saturation 82.0 VBG Base Excess 0.1 Sodium 148 H Potassium 3.7 Chloride 113 H Carbon Dioxide 22 Anion Gap 17 BUN 109 H Creatinine 3.24 H Estim Creat Clear Calc 22.8 Estimated GFR 19 POC Glucose 128 H Random Glucose 150 H Calcium 9.0 Phosphorus 3.9 Magnesium 2.3 Albumin 3.6 Stool Occult Blood Blood Type Antibody Screen Antibody Identification JENNIFER, Polyspecific Positive JENNIFER Work-up Crossmatch ([facility]) Blood Bank Comment Microbiology Microbiology Results: Microbiology 11/14/23 02:10 Blood - Venous Blood Culture - Preliminary No growth after 24 hours. 11/14/23 02:09 Blood - Venous Blood Culture - Preliminary No growth after 24 hours. 11/07/23 21:36 Sputum - Suctioned Gram Stain - Final 11/07/23 21:36 Sputum - Suctioned Sputum Culture - Final No growth. 10/02/23 06:40 Sputum - Suctioned Direct Acid Fast Bacilli Smear - Final 10/02/23 03:11 Blood - Central Line Blood Culture - Final No growth after 5 days. 10/02/23 03:11 Blood - Central Line Blood Culture - Final Coag negative Staphylococcus 10/02/23 06:40 Sputum - Suctioned Gram Stain - Final 10/02/23 06:40 Sputum - Suctioned Sputum Culture - Final 10/02/23 06:40 Urine Catheterized - Miguel Catheter Urine Culture - Final No growth. Procedures Date of Service Date of Service: 11/16/23 Assessment & Plan Assessment and plan (1) AMBER (acute kidney injury): Status: Acute (2) Hyperkalemia: Status: Acute (3) CKD (chronic kidney disease): Status: Acute Plan 62-year-old man with HIV has acute kidney injury superimposed on chronic kidney disease with hyperkalemia and mild metabolic acidosis. DDX acute kidney injury would include acute tubular necrosis from various episodes of hypotension as well as underlying infectious process. 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 Urine - No eosinophils Urine Pro: Cr > 2.0 Creatinine improved and now aroudn 3.2 Recommendations Watch urine output closely. No absolute indication for dialysis today Increase free water intake to correct hypernatremia Shall follow closely We will follow with the team. Time Spent With Patient Time: Total time managing care of this patient today ____ minutes. Progress Note: Quality Stroke Does the patient have a stroke diagnosis?: No
[2023-11-15 11:54] LABS: Glucose, Whole Blood 127 mg/dL (60-115)
--- NOTE | 2023-11-15 14:29 | MHC.CM.PN ---
PT CONTINUES TO REQUIRE ICU LEVEL OF CARE. CLINICAL UPDATES SENT TO [facility] ([facility] UNABLE TO OFFER A BED) REFERRAL EXPANDED TO [facility] IN [place]. CM WILL CONTINUE TO FOLLOW FOR BED OFFER ONCE PT IS MEDICALLY CLEARED.
[2023-11-15 17:42] LABS: Glucose, Whole Blood 105 mg/dL (60-115)
[2023-11-15] MEDS: Melatonin 3 MG TABLET 6 MG PO (20:04)
[2023-11-15] MEDS: ondansetron HCL 4 MG/2 ML VIAL IVPUSH (23:52)
[2023-11-16] VITALS (34 sets, daily range): BP systolic 95–164; BP diastolic 52–103; PULSE 86–118; RESP 10–24; TEMP 35–37.7; O2SAT 90–100; BMI 22.5
[2023-11-16 00:18] LABS: Glucose, Whole Blood 123 mg/dL (60-115)
[2023-11-16] MEDS: Omeprazole/Na Bicarb Oral Susp 20 MG/10 ML UD Cup 40 MG PO (05:30)
[2023-11-16] MEDS: Acetaminophen Oral Liquid 650 MG/20.3 ML SOLUTION 975 MG PO (05:30)
[2023-11-16 05:34] LABS: VBG HCO3 25 mmol/L (22-26); VBG pCO2 43 mmHg; VBG pH 7.36 (7.32-7.43); VBG pO2 47 mmHg
[2023-11-16 05:46] LABS: MANUAL DIFF FLAG NO
[2023-11-16 05:59] LABS: Basophils Percent Auto 0.2 % (0-2); Eosinophils Absolute Auto 0.3 X10*3/uL (0.0-0.4); Eosinophils Percent Auto 5.9 % (0-4); Hematocrit 23.3 % (42.0-52.0); Hemoglobin 8.3 g/dl (14.0-18.0); Imm Gran Abs Auto 0.03 X10*3/uL (0.00-0.03); Imm Gran Pct Auto 0.5 % (0.0-0.4); Lymphocytes Absolute Auto 1.1 X10*3/uL (1.2-4.9); Mean Corpuscular HGB Conc 35.6 g/dl (31.0-36.0); Mean Corpuscular Hemoglobin 32.8 pg (27.0-33.0); Mean Corpuscular Volume 92.1 fL (80.0-98.0); Mean Platelet Volume 10.9 fL (9.4-12.4); Monocytes Absolute Auto 0.7 X10*3/uL (0.1-1.2); Monocytes Percent Auto 11.7 % (2-11); Neutrophils Absolute Auto 3.5 x10*3/uL (2.0-8.3); Neutrophils Percent Auto 62.7 % (45-73); Platelet Count 141 X10*3/uL (160-400); Red Blood Count 2.53 X10*6/uL (4.60-5.80); Red Cell Distribution Width 22.1 % (11.0-16.0); White Blood Count 5.6 X10*3/uL (4.8-10.8)
[2023-11-16 06:09] LABS: Anion Gap 13 (12-20); Blood Urea Nitrogen 102 mg/dL (9-16); Calcium 9.4 mg/dL (8.4-10.2); Carbon Dioxide 25 mmol/L (22-29); Chloride 114 mmol/L (96-108); Creatinine Clr Calc Pharmacy 23.7; Estimated Glomerular Filt Rate 20; Glucose Random 110 mg/dL (60-115); Potassium 3.6 mmol/L (3.3-5.1); Sodium 148 mmol/L (135-145)
--- NOTE | 2023-11-16 07:52 | PM.CCPN ---
Subjective Subjective Date of Service: 11/16/23 Interval History: no significant overnight events Critical Care Time (minutes): 60 Physical Exam Vital Signs: Vital Signs: Last Vital Signs Temp 98.4 F 11/15/23 23:00 Pulse 97 11/16/23 07:00 Resp 22 H 11/16/23 07:00 BP 131/80 11/16/23 07:00 Pulse Ox 93 11/16/23 07:00 O2 Del Method Mechanical Ventil ation 11/16/23 07:00 O2 Flow Rate 30 11/13/23 12:00 FiO2 30 11/16/23 07:00 BMI result Body Mass Index 22.5 Const: General: cooperative, healthy appearing, comfortable, no acute distress, well developed, alert, awake and Physically active HEENT: Head: Yes normal to inspection, Yes normocephalic and Yes atraumatic Eyes: General: appearance normal, both eyes and all related structures Neck: Other: tracheostomy in place, clean, dry, intact Neck: Yes normal visual inspection, Yes full ROM, Yes trachea midline and Yes supple Chest: Chest palpation & inspection: normal inspection of the chest Resp: Other: no appreciable rales, rhonchi, wheezing Cardio: Rate: regular rate Rhythm: regular rhythm GI: Inspection: Yes normal to inspection, No Abdominal wall edema and No distended Palpation (GI): Soft to palpation, not firm, nontender, no guarding and not rigid : Male General Exam: Yes normal external exam Skin: General skin exam: no rashes or lesions noted Neuro: General: tone normal, moves all extremities and no focal motor deficits Extrem: General: Yes normal to inspection, Yes full ROM, Yes capillary refill normal and Yes no clubbing, cyanosis or edema Psych: Appearance: grossly normal Objective Data Labs 11/16/23 05:27 11/16/23 05:27 Labs: Laboratory Results - last 24 hr 11/14/23 11/15/23 11/15/23 05:08 11:51 17:38 WBC RBC Hgb Hct MCV MCH MCHC RDW Plt Count MPV Immature Gran % (Auto) Neut % (Auto) Lymph % (Auto) [place] % (Auto) Eos % (Auto) Baso % (Auto) Lymph # (Auto) [place] # (Auto) Eos # (Auto) Baso # (Auto) Abs Immat Gran (auto) Absolute Neuts (auto) Absolute Nucleated RBC Nucleated RBC % (auto) Smear Path Review SEE NOTE VBG pH VBG pCO2 VBG pO2 VBG HCO3 VBG O2 Saturation VBG Base Excess Sodium Potassium Chloride Carbon Dioxide Anion Gap BUN Creatinine Estim Creat Clear Calc Estimated GFR POC Glucose 127 H 105 Random Glucose Calcium 11/16/23 11/16/23 00:14 05:27 WBC 5.6 RBC 2.53 L Hgb 8.3 L Hct 23.3 L MCV 92.1 D MCH 32.8 MCHC 35.6 RDW 22.1 H Plt Count 141 L MPV 10.9 Immature Gran % (Auto) 0.5 H Neut % (Auto) 62.7 Lymph % (Auto) 19.0 L [place] % (Auto) 11.7 H Eos % (Auto) 5.9 H Baso % (Auto) 0.2 Lymph # (Auto) 1.1 L [place] # (Auto) 0.7 Eos # (Auto) 0.3 Baso # (Auto) 0.0 Abs Immat Gran (auto) 0.03 Absolute Neuts (auto) 3.5 Absolute Nucleated RBC 0.000 Nucleated RBC % (auto) 0.0 Smear Path Review VBG pH 7.36 VBG pCO2 43 VBG pO2 47 VBG HCO3 25 VBG O2 Saturation 79.0 VBG Base Excess 0.0 Sodium 148 H Potassium 3.6 Chloride 114 H Carbon Dioxide 25 Anion Gap 13 BUN 102 H Creatinine 3.12 H Estim Creat Clear Calc 23.7 Estimated GFR 20 POC Glucose 123 H Random Glucose 110 Calcium 9.4 Microbiology Microbiology Results: Microbiology 11/14/23 02:10 Blood - Venous Blood Culture - Preliminary No growth after 48 hours. 11/14/23 02:09 Blood - Venous Blood Culture - Preliminary No growth after 48 hours. 11/07/23 21:36 Sputum - Suctioned Gram Stain - Final 11/07/23 21:36 Sputum - Suctioned Sputum Culture - Final No growth. 10/02/23 06:40 Sputum - Suctioned Direct Acid Fast Bacilli Smear - Final 10/02/23 03:11 Blood - Central Line Blood Culture - Final No growth after 5 days. 10/02/23 03:11 Blood - Central Line Blood Culture - Final Coag negative Staphylococcus 10/02/23 06:40 Sputum - Suctioned Gram Stain - Final 10/02/23 06:40 Sputum - Suctioned Sputum Culture - Final 10/02/23 06:40 Urine Catheterized - Miguel Catheter Urine Culture - Final No growth. Progress Note: A&P Assessment and plan (1) Respiratory failure: Status: Acute (2) Critical illness myopathy: Status: Acute (3) Status post tracheostomy: Status: Acute (4) COPD (chronic obstructive pulmonary disease): Status: Acute (5) AMBER (acute kidney injury): Status: Acute (6) HIV (human immunodeficiency virus infection): Status: Acute (7) Hepatitis C: Status: Acute Plan Patient is a 62 Y M with HIV, HCV, COPD, presenting initially on 10/02 to ED w/ dyspnea, found to have influenza, c/f bacterial super-infection, c/b acute hypoxic respiratory failure, intubated; ICU course c/b septic shock, acute renal insufficiency, ileus; of note, patient extubated 10/12, re-intubated 10/13 d/t aspiration, critical illness myopathy, s/p trach/PEG 10/20 N: anxiety, well-controlled on PO meds CV: no acute issues R: acute hypoxic respiratory failure d/t initially influenza, c/b critical illness myopathy, aspiration; wean ventilator as tolerated; COPD GI: s/p PEG 10/20, tube feeds : acute renal insufficiency, stable H: anemia, likely iatrogenic, transfuse as needed; chemical DVT prophylaxis ID: no acute issues; HIV, HCV E: no acute issues MSK: critical illness myopathy, PT Quality Stroke Does the patient have a stroke diagnosis?: No VTE Prior VTE?: No VTE Risk Level:: Medical - moderate - high VTE Device Contraindication: N/A - Device Ordered VTE Drug Contraindication: N/A - Med Ordered
[2023-11-16] MEDS: 0.9 % Sodium Chloride Flush 10 ML SYRINGE IVFLUSH ×3 (08:05→23:44)
[2023-11-16] MEDS: Heparin Sodium,Porcine 5,000 UNIT/ML VIAL 5000 UNIT SUBCUT ×3 (08:08→23:53)
[2023-11-16] MEDS: Chlorhexidine Gluc Oral Rinse 15 ML MOUTHWASH BUCCAL ×3 (08:10→20:24)
[2023-11-16] MEDS: QUEtiapine Fumarate 25 MG TABLET PO ×2 (08:10→20:24)
[2023-11-16] MEDS: Bacitracin Oint 14 GM TUBE 1 APPL TOPICAL ×2 (08:10→20:24)
[2023-11-16] MEDS: lamoTRIgine 25 MG TABLET 50 MG PO ×2 (08:10→20:23)
[2023-11-16] MEDS: Nystatin Powder 15 GM BOTTLE 1 APPL TOPICAL ×2 (08:11→20:24)
[2023-11-16] MEDS: Tobramycin Sulfate 80 MG/2 ML VIAL 300 MG INHALE ×2 (08:44→23:19)
[2023-11-16] MEDS: ondansetron HCL 4 MG/2 ML VIAL IVPUSH (11:41)
[2023-11-16 12:08] LABS: Glucose, Whole Blood 115 mg/dL (60-115)
--- NOTE | 2023-11-16 14:37 | P.PNNP_ITS ---
Subjective Subjective Date of Service: 11/16/23 Interval history: Events noted. No change in mentation Physical Exam 2 Vital Signs: Vital Signs: Last Vital Signs Temp 98.5 F 11/16/23 12:00 Pulse 111 H 11/16/23 14:00 Resp 15 11/16/23 14:00 BP 164/92 H 11/16/23 14:00 Pulse Ox 93 11/16/23 14:00 O2 Del Method Mechanical Ventil ation 11/16/23 14:00 O2 Flow Rate 30 11/13/23 12:00 FiO2 30 11/16/23 14:22 BMI result Body Mass Index 22.5 Const: General: no acute distress and ill appearing HEENT: Head: Yes normocephalic Mouth: Normal oral and palatal mucosa present Neck: Neck: Yes supple Resp: Auscultation: clear to auscultation bilaterally and diminished lung sounds Cardio: Jugular venous distension: no JVD Palpation: no palpable S3 R ate: regular rate Heart sounds: no rubs GI: Palpation (GI): Soft to palpation Auscultation: normal bowel sounds Neuro: Other: Intubated and sedated Motor exam (neuro): no asterixis Objective Data Labs 11/16/23 05:27 11/16/23 05:27 Labs: Laboratory Results - last 24 hr 11/13/23 11/13/23 11/14/23 23:32 23:32 05:08 WBC RBC Hgb Hct MCV MCH MCHC RDW Plt Count MPV Immature Gran % (Auto) Neut % (Auto) Lymph % (Auto) [place] % (Auto) Eos % (Auto) Baso % (Auto) Lymph # (Auto) [place] # (Auto) Eos # (Auto) Baso # (Auto) Abs Immat Gran (auto) Absolute Neuts (auto) Absolute Nucleated RBC Nucleated RBC % (auto) Smear Path Review SEE NOTE VBG pH VBG pCO2 VBG pO2 VBG HCO3 VBG O2 Saturation VBG Base Excess Sodium Potassium Chloride Carbon Dioxide Anion Gap BUN Creatinine Estim Creat Clear Calc Estimated GFR POC Glucose Random Glucose Calcium Blood Type O Positive Antibody Screen POSITIVE Antibody Identification Inconclusive Anti-M JENNIFER, Polyspecific NEGATIVE Positive JENNIFER Work-up TNP Crossmatch ([facility]) See Detail Blood Bank Comment Specimen 11/15/23 11/16/23 11/16/23 17:38 00:14 05:27 WBC 5.6 RBC 2.53 L Hgb 8.3 L Hct 23.3 L MCV 92.1 D MCH 32.8 MCHC 35.6 RDW 22.1 H Plt Count 141 L MPV 10.9 Immature Gran % (Auto) 0.5 H Neut % (Auto) 62.7 Lymph % (Auto) 19.0 L [place] % (Auto) 11.7 H Eos % (Auto) 5.9 H Baso % (Auto) 0.2 Lymph # (Auto) 1.1 L [place] # (Auto) 0.7 Eos # (Auto) 0.3 Baso # (Auto) 0.0 Abs Immat Gran (auto) 0.03 Absolute Neuts (auto) 3.5 Absolute Nucleated RBC 0.000 Nucleated RBC % (auto) 0.0 Smear Path Review VBG pH 7.36 VBG pCO2 43 VBG pO2 47 VBG HCO3 25 VBG O2 Saturation 79.0 VBG Base Excess 0.0 Sodium 148 H Potassium 3.6 Chloride 114 H Carbon Dioxide 25 Anion Gap 13 BUN 102 H Creatinine 3.12 H Estim Creat Clear Calc 23.7 Estimated GFR 20 POC Glucose 105 123 H Random Glucose 110 Calcium 9.4 Blood Type Antibody Screen Antibody Identification JENNIFER, Polyspecific Positive JENNIFER Work-up Crossmatch ([facility]) Blood Bank Comment 11/16/23 12:05 WBC RBC Hgb Hct MCV MCH MCHC RDW Plt Count MPV Immature Gran % (Auto) Neut % (Auto) Lymph % (Auto) [place] % (Auto) Eos % (Auto) Baso % (Auto) Lymph # (Auto) [place] # (Auto) Eos # (Auto) Baso # (Auto) Abs Immat Gran (auto) Absolute Neuts (auto) Absolute Nucleated RBC Nucleated RBC % (auto) Smear Path Review VBG pH VBG pCO2 VBG pO2 VBG HCO3 VBG O2 Saturation VBG Base Excess Sodium Potassium Chloride Carbon Dioxide Anion Gap BUN Creatinine Estim Creat Clear Calc Estimated GFR POC Glucose 115 Random Glucose Calcium Blood Type Antibody Screen Antibody Identification JENNIFER, Polyspecific Positive JENNIFER Work-up Crossmatch ([facility]) Blood Bank Comment Microbiology Microbiology Results: Microbiology 11/14/23 02:10 Blood - Venous Blood Culture - Preliminary No growth after 48 hours. 11/14/23 02:09 Blood - Venous Blood Culture - Preliminary No growth after 48 hours. 11/07/23 21:36 Sputum - Suctioned Gram Stain - Final 11/07/23 21:36 Sputum - Suctioned Sputum Culture - Final No growth. 10/02/23 06:40 Sputum - Suctioned Direct Acid Fast Bacilli Smear - Final 10/02/23 03:11 Blood - Central Line Blood Culture - Final No growth after 5 days. 10/02/23 03:11 Blood - Central Line Blood Culture - Final Coag negative Staphylococcus 10/02/23 06:40 Sputum - Suctioned Gram Stain - Final 10/02/23 06:40 Sputum - Suctioned Sputum Culture - Final 10/02/23 06:40 Urine Catheterized - Miguel Catheter Urine Culture - Final No growth. Procedures Date of Service Date of Service: 11/16/23 Assessment & Plan Assessment and plan (1) AMBER (acute kidney injury): Status: Acute (2) Hyperkalemia: Status: Acute (3) CKD (chronic kidney disease): Status: Acute Plan 62-year-old man with HIV has acute kidney injury superimposed on chronic kidney disease with hyperkalemia and mild metabolic acidosis. DDX acute kidney injury would include acute tubular necrosis from various episodes of hypotension as well as underlying infectious process. 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 Urine - No eosinophils Urine Pro: Cr > 2.0 Creatinine improved and now around 3.2 Recommendations Watch urine output closely. No absolute indication for dialysis today Increase free water intake to correct hypernatremia Shall follow closely We will follow with the team. Time Spent With Patient Time: Total time managing care of this patient today ____ minutes. Progress Note: Quality Stroke Does the patient have a stroke diagnosis?: No
--- NOTE | 2023-11-16 15:02 | MHC.CM.PN ---
Addendum entered by Machelle Austin 11/16/23 15:34: Call placed to pt's son to discuss possible insurance change - he is agreeable to any plan that assists his father getting the care he needs [place] [facility] [place] options: pt must be enrolled in a Managed [employer] plan d/t age being under 65. Once pt has been placed in a plan contracted facility, the facility can then convert pt to [employer] w/LTC coverage. [place] [facility] [place] can convert to any managed [employer] plan. This will exclude pt from [facility] as they are [facility] only. CM to follow w/[facility] on 11/17 to inquire on out of network facility possibility given the difficult placement this pt has. CM to approach pt w/HCP completion now that he is alert. Original Note: Pt continues care in ICU: tolerating longer periods on PSV and not experiencing as much anxiety w/med changes. No HD needs - BUN and creat. very slowly down trending. CM to speak w/son Earl Sinha to discuss removing [facility] as pt's medicaid managed plan to facilitate broader search for placement. Pt's trach is matured as of 11/19. [facility] has been following but is requiring BUN and Creatinine to essentially return to normal/baseline which may take weeks to months or not at all per provider. Presently exploring limited facilities that accept LT trachs and Medicaid - referrals placed. CM to follow.
[2023-11-16 18:03] LABS: Glucose, Whole Blood 93 mg/dL (60-115)
[2023-11-16] MEDS: Metoprolol Tartrate 25 MG TABLET PO (18:36)
[2023-11-16] MEDS: Melatonin 3 MG TABLET 6 MG PO (23:42)
[2023-11-17] VITALS (32 sets, daily range): BP systolic 93–158; BP diastolic 61–112; PULSE 86–119; RESP 15–31; TEMP 34.8–37.5; O2SAT 88–100; BMI 22.6
[2023-11-17] LABS: Glucose, Whole Blood 120 mg/dL (60-115)
[2023-11-17] MEDS: Acetaminophen Oral Liquid 650 MG/20.3 ML SOLUTION 975 MG PO ×2 (01:06→16:31)
[2023-11-17] MEDS: Metoprolol Tartrate 25 MG TABLET PO ×3 (01:06→16:30)
[2023-11-17 06:50] LABS: MANUAL DIFF FLAG NO
[2023-11-17 06:55] LABS: Basophils Percent Auto 0.2 % (0-2); Eosinophils Absolute Auto 0.4 X10*3/uL (0.0-0.4); Eosinophils Percent Auto 6.9 % (0-4); Hematocrit 23.9 % (42.0-52.0); Hemoglobin 7.8 g/dl (14.0-18.0); Imm Gran Abs Auto 0.02 X10*3/uL (0.00-0.03); Imm Gran Pct Auto 0.4 % (0.0-0.4); Lymphocytes Percent Auto 18.7 % (20-40); Mean Corpuscular HGB Conc 32.6 g/dl (31.0-36.0); Mean Corpuscular Hemoglobin 28.7 pg (27.0-33.0); Mean Corpuscular Volume 87.9 fL (80.0-98.0); Mean Platelet Volume 10.5 fL (9.4-12.4); Monocytes Absolute Auto 0.6 X10*3/uL (0.1-1.2); Monocytes Percent Auto 11.4 % (2-11); Neutrophils Absolute Auto 3.2 x10*3/uL (2.0-8.3); Neutrophils Percent Auto 62.4 % (45-73); Platelet Count 127 X10*3/uL (160-400); Red Blood Count 2.72 X10*6/uL (4.60-5.80); Red Cell Distribution Width 18.9 % (11.0-16.0); White Blood Count 5.2 X10*3/uL (4.8-10.8)
[2023-11-17 07:18] LABS: Anion Gap 14 (12-20); Blood Urea Nitrogen 90 mg/dL (9-16); Calcium 9.3 mg/dL (8.4-10.2); Carbon Dioxide 24 mmol/L (22-29); Chloride 113 mmol/L (96-108); Creatinine Clr Calc Pharmacy 21.8; Estimated Glomerular Filt Rate 18; Glucose Random 128 mg/dL (60-115); Magnesium 2.4 mg/dL (1.6-2.6); Potassium 3.7 mmol/L (3.3-5.1); Sodium 147 mmol/L (135-145)
[2023-11-17] MEDS: Omeprazole/Na Bicarb Oral Susp 20 MG/10 ML UD Cup 40 MG PO (07:41)
[2023-11-17] MEDS: Tobramycin Sulfate 80 MG/2 ML VIAL 300 MG INHALE ×2 (07:48→22:09)
--- NOTE | 2023-11-17 07:56 | ECG_ITS ---
Test Reason : check qtc Blood Pressure : / mmHG Vent. Rate : 107 BPM Atrial Rate : 107 BPM P-R Int : 190 ms QRS Dur : 078 ms QT Int : 360 ms P-R-T Axes : 083 017 070 degrees QTc Int : 480 ms Sinus tachycardia Septal infarct (cited on or before 12-JAN-2014) Abnormal ECG When compared with ECG of 06-OCT-2023 04:34, Premature ventricular complexes are no longer Present Non-specific change in ST segment in Anterior leads Nonspecific T wave abnormality no longer evident in Inferior leads Referred By: Jesenia Malloy Electronically Signed By:DANII ZENDEJAS MD
--- NOTE | 2023-11-17 07:56 | PM.CCPN ---
Subjective Subjective Date of Service: 11/17/23 Critical Care Time (minutes): 60 Physical Exam Vital Signs: Vital Signs: Last Vital Signs Temp 99.9 F 11/16/23 20:00 Pulse 105 H 11/17/23 07:00 Resp 28 H 11/17/23 07:00 BP 153/112 H 11/17/23 07:00 Pulse Ox 95 11/17/23 07:00 O2 Del Method Mechanical Ventil ation 11/17/23 07:00 O2 Flow Rate 30 11/13/23 12:00 FiO2 30 11/17/23 07:53 BMI result Body Mass Index 22.6 Const: General: cooperative, healthy appearing, comfortable, no acute distress, well developed, alert, awake and Physically active HEENT: Head: Yes normal to inspection, Yes normocephalic and Yes atraumatic Eyes: General: appearance normal, both eyes and all related structures Neck: Other: tracheostomy midline, clean, dry, intact Neck: Yes normal visual inspection, Yes full ROM, Yes trachea midline and Yes supple Chest: Chest palpation & inspection: normal inspection of the chest Resp: Other: no appreciable rales, rhonchi, wheezing Effort & Inspection: normal respiratory effort Cardio: Rate: regular rate Rhythm: regular rhythm GI: Inspection: Yes normal to inspection, No Abdominal wall edema and No distended Palpation (GI): Soft to palpation, not firm, nontender, no guarding and not rigid Skin: General skin exam: no rashes or lesions noted Neuro: Other: answers questions appropriately General: tone normal, moves all extremities and no focal motor deficits Extrem: General: Yes normal to inspection, Yes full ROM, Yes capillary refill normal and Yes no clubbing, cyanosis or edema Psych: Appearance: grossly normal Objective Data Labs 11/17/23 05:15 11/17/23 05:15 Labs: Laboratory Results - last 24 hr 11/13/23 11/13/23 11/16/23 23:32 23:32 12:05 WBC RBC Hgb Hct MCV MCH MCHC RDW Plt Count MPV Immature Gran % (Auto) Neut % (Auto) Lymph % (Auto) [place] % (Auto) Eos % (Auto) Baso % (Auto) Lymph # (Auto) [place] # (Auto) Eos # (Auto) Baso # (Auto) Abs Immat Gran (auto) Absolute Neuts (auto) Absolute Nucleated RBC Nucleated RBC % (auto) Sodium Potassium Chloride Carbon Dioxide Anion Gap BUN Creatinine Estim Creat Clear Calc Estimated GFR POC Glucose 115 Random Glucose Calcium Magnesium Blood Type O Positive Antibody Screen POSITIVE Antibody Identification Inconclusive Anti-M JENNIFER, Polyspecific NEGATIVE Positive JENNIFER Work-up TNP Crossmatch ([facility]) See Detail Blood Bank Comment Specimen 11/16/23 11/16/23 11/17/23 18:01 23:56 05:15 WBC 5.2 RBC 2.72 L Hgb 7.8 L Hct 23.9 L MCV 87.9 MCH 28.7 MCHC 32.6 RDW 18.9 H Plt Count 127 L MPV 10.5 Immature Gran % (Auto) 0.4 Neut % (Auto) 62.4 Lymph % (Auto) 18.7 L [place] % (Auto) 11.4 H Eos % (Auto) 6.9 H Baso % (Auto) 0.2 Lymph # (Auto) 1.0 L [place] # (Auto) 0.6 Eos # (Auto) 0.4 Baso # (Auto) 0.0 Abs Immat Gran (auto) 0.02 Absolute Neuts (auto) 3.2 Absolute Nucleated RBC 0.000 Nucleated RBC % (auto) 0.0 Sodium 147 H Potassium 3.7 Chloride 113 H Carbon Dioxide 24 Anion Gap 14 BUN 90 H Creatinine 3.40 H Estim Creat Clear Calc 21.8 Estimated GFR 18 POC Glucose 93 120 H Random Glucose 128 H Calcium 9.3 Magnesium 2.4 Blood Type Antibody Screen Antibody Identification JENNIFER, Polyspecific Positive JENNIFER Work-up Crossmatch ([facility]) Blood Bank Comment Microbiology Microbiology Results: Microbiology 11/14/23 02:10 Blood - Venous Blood Culture - Preliminary No growth after 48 hours. 11/14/23 02:09 Blood - Venous Blood Culture - Preliminary No growth after 48 hours. 11/07/23 21:36 Sputum - Suctioned Gram Stain - Final 11/07/23 21:36 Sputum - Suctioned Sputum Culture - Final No growth. 10/02/23 06:40 Sputum - Suctioned Direct Acid Fast Bacilli Smear - Final 10/02/23 03:11 Blood - Central Line Blood Culture - Final No growth after 5 days. 10/02/23 03:11 Blood - Central Line Blood Culture - Final Coag negative Staphylococcus 10/02/23 06:40 Sputum - Suctioned Gram Stain - Final 10/02/23 06:40 Sputum - Suctioned Sputum Culture - Final 10/02/23 06:40 Urine Catheterized - Miguel Catheter Urine Culture - Final No growth. Progress Note: A&P Assessment and plan (1) Critical illness myopathy: Status: Acute (2) Status post tracheostomy: Status: Acute (3) AMBER (acute kidney injury): Status: Acute (4) HIV (human immunodeficiency virus infection): Status: Acute (5) Respiratory failure: Status: Acute (6) COPD (chronic obstructive pulmonary disease): Status: Acute (7) Hepatitis C: Status: Acute Plan Patient is a 62 Y M with HIV, HCV, COPD, presenting initially on 10/02 to ED w/ dyspnea, found to have influenza, c/f bacterial super-infection, c/b acute hypoxic respiratory failure, intubated; ICU course c/b septic shock, acute renal insufficiency, ileus; of note, patient extubated 10/12, re-intubated 10/13 d/t aspiration, critical illness myopathy, s/p trach/PEG 10/20 N: anxiety, well-controlled on PO meds CV: no acute issues R: acute hypoxic respiratory failure d/t initially influenza, c/b critical illness myopathy, aspiration; wean ventilator as tolerated; COPD GI: s/p PEG 10/20, tube feeds : acute renal insufficiency, stable; appreciate nephrology recommendations H: anemia, likely iatrogenic, transfuse as needed; chemical DVT prophylaxis ID: no acute issues; HIV, HCV E: no acute issues MSK: critical illness myopathy, PT Quality Stroke Does the patient have a stroke diagnosis?: No VTE Prior VTE?: No VTE Risk Level:: Medical - moderate - high VTE Device Contraindication: N/A - Device Ordered VTE Drug Contraindication: N/A - Med Ordered
[2023-11-17] MEDS: 0.9 % Sodium Chloride Flush 10 ML SYRINGE IVFLUSH ×3 (08:33→23:34)
[2023-11-17] MEDS: Heparin Sodium,Porcine 5,000 UNIT/ML VIAL 5000 UNIT SUBCUT ×3 (08:33→23:36)
[2023-11-17] MEDS: Nystatin Powder 15 GM BOTTLE 1 APPL TOPICAL ×2 (08:34→20:23)
[2023-11-17] MEDS: lamoTRIgine 25 MG TABLET 50 MG PO ×2 (08:34→20:23)
[2023-11-17] MEDS: QUEtiapine Fumarate 25 MG TABLET PO ×2 (08:34→15:17)
[2023-11-17] MEDS: Chlorhexidine Gluc Oral Rinse 15 ML MOUTHWASH BUCCAL ×3 (08:34→20:23)
[2023-11-17] MEDS: Bacitracin Oint 14 GM TUBE 1 APPL TOPICAL ×2 (08:35→20:23)
--- NOTE | 2023-11-17 10:42 | MHC.CLN ---
F/U PT CONTINUES TOLERATING TF WITH LOW RESIDUALS PER NSG DISCUSSED AT ROUNDS WITH MD REVIEWED LABS-NA SLOWLY IMPROVING PT RECEIVING TF NEPRO AT MAX GOAL RATE 45ML/HR WITH 300ML Q 4 HR PROVIDES 1944KCALS (30KCALS/KG), 87G PROTEIN (1.3G/KG), 2585ML TOTAL WATER FROM FORMULA AND FLUSHES (39ML/KG) TF WILL PROMOTE WOUND HEALING AND RENAL FRIENDLY CONTINUE TO MONITOR TOLERANCE, RESIDUALS, AND LYTES
[2023-11-17 12:13] LABS: Glucose, Whole Blood 129 mg/dL (60-115)
[2023-11-17] MEDS: ondansetron HCL 4 MG/2 ML VIAL IVPUSH ×3 (12:37→19:21)
[2023-11-17] MEDS: Metoclopramide HCl 10 MG/2 ML VIAL 5 MG IVPUSH (17:39)
[2023-11-17 18:06] LABS: Glucose, Whole Blood 130 mg/dL (60-115)
--- NOTE | 2023-11-17 18:26 | P.PNNP_ITS ---
Subjective Subjective Date of Service: 11/17/23 Interval history: Events noted. ; No change in mentation; All recent data reviewed Physical Exam 2 Vital Signs: Vital Signs: Last Vital Signs Temp 99.5 F 11/17/23 16:00 Pulse 89 11/17/23 18:00 Resp 20 11/17/23 18:00 BP 135/86 11/17/23 18:00 Pulse Ox 93 11/17/23 18:00 O2 Del Method Mechanical Ventil ation 11/17/23 18:00 O2 Flow Rate 30 11/13/23 12:00 FiO2 30 11/17/23 18:00 BMI result Body Mass Index 22.6 Const: Other: Trach + Resp: Auscultation: diminished lung sounds Cardio: Rate: regular rate GI: Other: G tube + Palpation (GI): Soft to palpation Skin: General skin exam: no rashes or lesions noted Objective Data Labs 11/17/23 05:15 11/17/23 05:15 Labs: Laboratory Results - last 24 hr 11/16/23 11/17/23 11/17/23 23:56 05:15 12:08 WBC 5.2 RBC 2.72 L Hgb 7.8 L Hct 23.9 L MCV 87.9 MCH 28.7 MCHC 32.6 RDW 18.9 H Plt Count 127 L MPV 10.5 Immature Gran % (Auto) 0.4 Neut % (Auto) 62.4 Lymph % (Auto) 18.7 L [place] % (Auto) 11.4 H Eos % (Auto) 6.9 H Baso % (Auto) 0.2 Lymph # (Auto) 1.0 L [place] # (Auto) 0.6 Eos # (Auto) 0.4 Baso # (Auto) 0.0 Abs Immat Gran (auto) 0.02 Absolute Neuts (auto) 3.2 Absolute Nucleated RBC 0.000 Nucleated RBC % (auto) 0.0 Sodium 147 H Potassium 3.7 Chloride 113 H Carbon Dioxide 24 Anion Gap 14 BUN 90 H Creatinine 3.40 H Estim Creat Clear Calc 21.8 Estimated GFR 18 POC Glucose 120 H 129 H Random Glucose 128 H Calcium 9.3 Magnesium 2.4 11/17/23 18:02 WBC RBC Hgb Hct MCV MCH MCHC RDW Plt Count MPV Immature Gran % (Auto) Neut % (Auto) Lymph % (Auto) [place] % (Auto) Eos % (Auto) Baso % (Auto) Lymph # (Auto) [place] # (Auto) Eos # (Auto) Baso # (Auto) Abs Immat Gran (auto) Absolute Neuts (auto) Absolute Nucleated RBC Nucleated RBC % (auto) Sodium Potassium Chloride Carbon Dioxide Anion Gap BUN Creatinine Estim Creat Clear Calc Estimated GFR POC Glucose 130 H Random Glucose Calcium Magnesium Microbiology Microbiology Results: Microbiology 11/14/23 02:10 Blood - Venous Blood Culture - Preliminary No growth after 48 hours. 11/14/23 02:09 Blood - Venous Blood Culture - Preliminary No growth after 48 hours. 11/07/23 21:36 Sputum - Suctioned Gram Stain - Final 11/07/23 21:36 Sputum - Suctioned Sputum Culture - Final No growth. 10/02/23 06:40 Sputum - Suctioned Direct Acid Fast Bacilli Smear - Final 10/02/23 03:11 Blood - Central Line Blood Culture - Final No growth after 5 days. 10/02/23 03:11 Blood - Central Line Blood Culture - Final Coag negative Staphylococcus 10/02/23 06:40 Sputum - Suctioned Gram Stain - Final 10/02/23 06:40 Sputum - Suctioned Sputum Culture - Final 10/02/23 06:40 Urine Catheterized - Miguel Catheter Urine Culture - Final No growth. Procedures Date of Service Date of Service: 11/17/23 Assessment & Plan Assessment and plan (1) AMBER (acute kidney injury): Status: Acute Plan Acute Kidney Injury due to tubular injury UO good; No need for HD now Renal function improved/stable Would benefit from more free water C/W rest of current supportive care Labs AM; Shall closely follow up Progress Note: Quality Stroke Does the patient have a stroke diagnosis?: No
[2023-11-17] MEDS: Melatonin 3 MG TABLET 6 MG PO (19:22)
[2023-11-17] MEDS: QUEtiapine Fumarate 25 MG TABLET 12.5 MG PO (19:22)
[2023-11-17 23:32] LABS: Glucose, Whole Blood 89 mg/dL (60-115)
[2023-11-18] VITALS (34 sets, daily range): BP systolic 105–150; BP diastolic 57–98; PULSE 88–114; RESP 15–30; TEMP 34.9–37.7; O2SAT 91–100; BMI 22.9
[2023-11-18] MEDS: Metoprolol Tartrate 25 MG TABLET PO ×3 (02:25→18:40)
[2023-11-18 04:15] LABS: Glucose, Whole Blood 95 mg/dL (60-115)
[2023-11-18] MEDS: Omeprazole/Na Bicarb Oral Susp 20 MG/10 ML UD Cup 40 MG PO (04:36)
[2023-11-18] MEDS: Acetaminophen Oral Liquid 650 MG/20.3 ML SOLUTION 975 MG PO (04:36)
[2023-11-18 05:41] LABS: Basophils Percent Auto 0.2 % (0-2); Eosinophils Absolute Auto 0.4 X10*3/uL (0.0-0.4); Eosinophils Percent Auto 6.7 % (0-4); Hemoglobin 7.9 g/dl (14.0-18.0); Imm Gran Abs Auto 0.01 X10*3/uL (0.00-0.03); Imm Gran Pct Auto 0.2 % (0.0-0.4); Lymphocytes Absolute Auto 1.3 X10*3/uL (1.2-4.9); Lymphocytes Percent Auto 23.1 % (20-40); MANUAL DIFF FLAG SCAN; Mean Corpuscular HGB Conc 32.9 g/dl (31.0-36.0); Mean Corpuscular Hemoglobin 29.2 pg (27.0-33.0); Mean Corpuscular Volume 88.6 fL (80.0-98.0); Mean Platelet Volume 10.5 fL (9.4-12.4); Monocytes Absolute Auto 0.7 X10*3/uL (0.1-1.2); Monocytes Percent Auto 12.1 % (2-11); Neutrophils Absolute Auto 3.2 x10*3/uL (2.0-8.3); Neutrophils Percent Auto 57.7 % (45-73); Platelet Count 136 X10*3/uL (160-400); Red Blood Count 2.71 X10*6/uL (4.60-5.80); Red Cell Distribution Width 19.5 % (11.0-16.0); SCAN SMEAR FLAG 1; White Blood Count 5.5 X10*3/uL (4.8-10.8)
[2023-11-18 05:56] LABS: Anion Gap 15 (12-20); Blood Urea Nitrogen 90 mg/dL (9-16); Calcium 9.2 mg/dL (8.4-10.2); Carbon Dioxide 22 mmol/L (22-29); Chloride 113 mmol/L (96-108); Creatinine Clr Calc Pharmacy 22.6; Estimated Glomerular Filt Rate 19; Glucose Random 155 mg/dL (60-115); Potassium 3.5 mmol/L (3.3-5.1); Sodium 146 mmol/L (135-145)
[2023-11-18 06:09] LABS: SLIDE REVIEW VERIFIED
[2023-11-18] MEDS: Tobramycin Sulfate 80 MG/2 ML VIAL 300 MG INHALE ×2 (07:29→22:26)
--- NOTE | 2023-11-18 08:12 | P.PNCC_ITS ---
Subjective Subjective Date of Service: 11/18/23 Interval History: no significant overnight events Critical Care Time (minutes): 90 Physical Exam 2 Vital Signs: Vital Signs: Last Vital Signs Temp 98.0 F 11/18/23 08:00 Pulse 100 11/18/23 08:00 Resp 16 11/18/23 08:00 BP 127/87 11/18/23 08:00 Pulse Ox 99 11/18/23 08:00 O2 Del Method Mechanical Ventil ation 11/18/23 08:00 O2 Flow Rate 30 11/13/23 12:00 FiO2 35 11/18/23 08:00 BMI result Body Mass Index 22.9 Const: General: cooperative, healthy appearing, comfortable, no acute distress, well developed, alert, awake and Physically active O rientation/consciousness: patient oriented x3 HEENT: Head: Yes normal to inspection, Yes normocephalic and Yes atraumatic Eyes: General: appearance normal, both eyes and all related structures Neck: Neck: Yes normal visual inspection, Yes full ROM and Yes supple Chest: Chest palpation & inspection: normal inspection of the chest Resp: Other: no appreciable rales, rhonchi, wheezing Effort & Inspection: normal respiratory effort Cardio: Rate: regular rate Rhythm: regular rhythm GI: Inspection: Yes normal to inspection, No Abdominal wall edema, No distended and Yes visible peristalsis Palpation (GI): Soft to palpation, not firm, nontender, no guarding and not rigid : Male General Exam: Yes normal external exam Skin: General skin exam: no rashes or lesions noted Neuro: General: patient oriented x3, tone normal, moves all extremities and no focal motor deficits Extrem: General: Yes normal to inspection, Yes full ROM, Yes capillary refill normal and Yes no clubbing, cyanosis or edema Psych: Other: appreciable anxiety, though re-directable Objective Data Labs 11/18/23 05:15 11/18/23 05:15 Labs: Laboratory Results - last 24 hr 11/17/23 11/17/23 11/17/23 12:08 18:02 23:29 WBC RBC Hgb Hct MCV MCH MCHC RDW Plt Count MPV Immature Gran % (Auto) Neut % (Auto) Lymph % (Auto) [place] % (Auto) Eos % (Auto) Baso % (Auto) Lymph # (Auto) [place] # (Auto) Eos # (Auto) Baso # (Auto) Abs Immat Gran (auto) Absolute Neuts (auto) Absolute Nucleated RBC Nucleated RBC % (auto) Smear Tech's Comments Sodium Potassium Chloride Carbon Dioxide Anion Gap BUN Creatinine Estim Creat Clear Calc Estimated GFR POC Glucose 129 H 130 H 89 Random Glucose Calcium 11/18/23 11/18/23 04:11 05:15 WBC 5.5 RBC 2.71 L Hgb 7.9 L Hct 24.0 L MCV 88.6 MCH 29.2 MCHC 32.9 RDW 19.5 H Plt Count 136 L MPV 10.5 Immature Gran % (Auto) 0.2 Neut % (Auto) 57.7 Lymph % (Auto) 23.1 [place] % (Auto) 12.1 H Eos % (Auto) 6.7 H Baso % (Auto) 0.2 Lymph # (Auto) 1.3 [place] # (Auto) 0.7 Eos # (Auto) 0.4 Baso # (Auto) 0.0 Abs Immat Gran (auto) 0.01 Absolute Neuts (auto) 3.2 Absolute Nucleated RBC 0.000 Nucleated RBC % (auto) 0.0 Smear Tech's Comments VERIFIED Sodium 146 H Potassium 3.5 Chloride 113 H Carbon Dioxide 22 Anion Gap 15 BUN 90 H Creatinine 3.33 H Estim Creat Clear Calc 22.6 Estimated GFR 19 POC Glucose 95 Random Glucose 155 H Calcium 9.2 Microbiology Microbiology Results: Microbiology 11/14/23 02:10 Blood - Venous Blood Culture - Preliminary No growth after 48 hours. 11/14/23 02:09 Blood - Venous Blood Culture - Preliminary No growth after 48 hours. 11/07/23 21:36 Sputum - Suctioned Gram Stain - Final 11/07/23 21:36 Sputum - Suctioned Sputum Culture - Final No growth. 10/02/23 06:40 Sputum - Suctioned Direct Acid Fast Bacilli Smear - Final 10/02/23 03:11 Blood - Central Line Blood Culture - Final No growth after 5 days. 10/02/23 03:11 Blood - Central Line Blood Culture - Final Coag negative Staphylococcus 10/02/23 06:40 Sputum - Suctioned Gram Stain - Final 10/02/23 06:40 Sputum - Suctioned Sputum Culture - Final 10/02/23 06:40 Urine Catheterized - Miguel Catheter Urine Culture - Final No growth. Progress Note: A&P Assessment and plan (1) Status post tracheostomy: Status: Acute (2) Critical illness myopathy: Status: Acute (3) AMBER (acute kidney injury): Status: Acute (4) CKD (chronic kidney disease): Status: Acute (5) HIV (human immunodeficiency virus infection): Status: Acute (6) Respiratory failure: Status: Acute (7) COPD (chronic obstructive pulmonary disease): Status: Acute (8) Hepatitis C: Status: Acute Plan Patient is a 62 Y M with HIV, HCV, COPD, presenting initially on 10/02 to ED w/ dyspnea, found to have influenza, c/f bacterial super-infection, c/b acute hypoxic respiratory failure, intubated; ICU course c/b septic shock, acute renal insufficiency, ileus; of note, patient extubated 10/12, re-intubated 10/13 d/t aspiration, critical illness myopathy, s/p trach/PEG 10/20 N: anxiety, well-controlled on PO meds CV: no acute issues R: acute hypoxic respiratory failure d/t initially influenza, c/b critical illness myopathy, aspiration; wean ventilator as tolerated; COPD GI: s/p PEG 10/20, tube feeds : acute renal insufficiency, relatively stable; appreciate nephrology recommendations H: anemia, likely iatrogenic, transfuse as needed; chemical DVT prophylaxis ID: no acute issues; HIV, HCV E: no acute issues MSK: critical illness myopathy, PT Quality Stroke Does the patient have a stroke diagnosis?: No VTE Prior VTE?: No VTE Risk Level:: Medical - moderate - high VTE Device Contraindication: N/A - Device Ordered VTE Drug Contraindication: N/A - Med Ordered
[2023-11-18] MEDS: 0.9 % Sodium Chloride Flush 10 ML SYRINGE IVFLUSH ×3 (08:39→23:43)
[2023-11-18] MEDS: Chlorhexidine Gluc Oral Rinse 15 ML MOUTHWASH BUCCAL ×3 (08:39→21:13)
[2023-11-18] MEDS: Heparin Sodium,Porcine 5,000 UNIT/ML VIAL 5000 UNIT SUBCUT ×3 (08:39→23:44)
[2023-11-18] MEDS: lamoTRIgine 25 MG TABLET 50 MG PO ×2 (08:39→21:13)
[2023-11-18] MEDS: QUEtiapine Fumarate 25 MG TABLET PO ×2 (08:39→21:13)
[2023-11-18] MEDS: Bacitracin Oint 14 GM TUBE 1 APPL TOPICAL ×2 (08:40→21:13)
[2023-11-18] MEDS: Nystatin Powder 15 GM BOTTLE 1 APPL TOPICAL ×2 (08:40→21:13)
[2023-11-18] MEDS: Lidocaine 4 % Patch ADH..PATCH 2 PATCH TRANSDERMA (12:51)
[2023-11-18 13:00] LABS: Glucose, Whole Blood 111 mg/dL (60-115)
--- NOTE | 2023-11-18 13:55 | MHC.CM.PN ---
Addendum entered by Machelle Austin 11/18/23 14:33: Met w/pt to discuss HCP completion: pt using picture boards and writing to communicate: writing is shaky and difficult to read: Pt nodded in affirmative on indications for HCP appointment and would like his son Jr Earl to serve in this role. HCP signed on behalf of pt using 2 witnesses. Copy placed in chart and uploaded to [employer]. Original Note: Received notification from [facility] of [facility] that pt looks appropriate once trach is matured (11/19) and that they have a male bed. Facility asks for clinical updates on 11/18 and can then submit for payor auth in anticipation of transfer. Call placed to pt's son, Earl to update. Information relayed to ICU care team as well. CM to follow w/[facility] on 11/18.
[2023-11-18] MEDS: QUEtiapine Fumarate 25 MG TABLET 12.5 MG PO (14:27)
--- NOTE | 2023-11-18 15:04 | P.PNNP_ITS ---
Subjective Subjective Date of Service: 11/23/23 Interval history: no significant overnight events Physical Exam 2 Vital Signs: Vital Signs: Last Vital Signs Temp 97.9 F 11/18/23 12:00 Pulse 107 H 11/18/23 15:00 Resp 15 11/18/23 15:00 BP 136/91 H 11/18/23 15:00 Pulse Ox 98 11/18/23 15:00 O2 Del Method Mechanical Ventil ation 11/18/23 15:00 O2 Flow Rate 30 11/13/23 12:00 FiO2 30 11/18/23 15:00 BMI result Body Mass Index 22.9 Const: General: no acute distress and ill appearing HEENT: Head: Yes normocephalic Mouth: Normal oral and palatal mucosa present Neck: Neck: Yes supple Resp: Auscultation: clear to auscultation bilaterally and diminished lung sounds Cardio: Jugular venous distension: no JVD Palpation: no palpable S3 R ate: regular rate Heart sounds: no rubs GI: Palpation (GI): Soft to palpation Auscultation: normal bowel sounds Neuro: Other: Intubated and sedated Motor exam (neuro): no asterixis Objective Data Labs 11/23/23 04:26 11/23/23 04:26 Labs: Laboratory Results - last 24 hr 11/17/23 11/17/23 11/18/23 18:02 23:29 04:11 WBC RBC Hgb Hct MCV MCH MCHC RDW Plt Count MPV Immature Gran % (Auto) Neut % (Auto) Lymph % (Auto) [place] % (Auto) Eos % (Auto) Baso % (Auto) Lymph # (Auto) [place] # (Auto) Eos # (Auto) Baso # (Auto) Abs Immat Gran (auto) Absolute Neuts (auto) Absolute Nucleated RBC Nucleated RBC % (auto) Smear Tech's Comments Sodium Potassium Chloride Carbon Dioxide Anion Gap BUN Creatinine Estim Creat Clear Calc Estimated GFR POC Glucose 130 H 89 95 Random Glucose Calcium 11/18/23 11/18/23 05:15 12:55 WBC 5.5 RBC 2.71 L Hgb 7.9 L Hct 24.0 L MCV 88.6 MCH 29.2 MCHC 32.9 RDW 19.5 H Plt Count 136 L MPV 10.5 Immature Gran % (Auto) 0.2 Neut % (Auto) 57.7 Lymph % (Auto) 23.1 [place] % (Auto) 12.1 H Eos % (Auto) 6.7 H Baso % (Auto) 0.2 Lymph # (Auto) 1.3 [place] # (Auto) 0.7 Eos # (Auto) 0.4 Baso # (Auto) 0.0 Abs Immat Gran (auto) 0.01 Absolute Neuts (auto) 3.2 Absolute Nucleated RBC 0.000 Nucleated RBC % (auto) 0.0 Smear Tech's Comments VERIFIED Sodium 146 H Potassium 3.5 Chloride 113 H Carbon Dioxide 22 Anion Gap 15 BUN 90 H Creatinine 3.33 H Estim Creat Clear Calc 22.6 Estimated GFR 19 POC Glucose 111 Random Glucose 155 H Calcium 9.2 Microbiology Microbiology Results: Microbiology 11/14/23 02:10 Blood - Venous Blood Culture - Preliminary No growth after 48 hours. 11/14/23 02:09 Blood - Venous Blood Culture - Preliminary No growth after 48 hours. 11/07/23 21:36 Sputum - Suctioned Gram Stain - Final 11/07/23 21:36 Sputum - Suctioned Sputum Culture - Final No growth. 10/02/23 06:40 Sputum - Suctioned Direct Acid Fast Bacilli Smear - Final 10/02/23 03:11 Blood - Central Line Blood Culture - Final No growth after 5 days. 10/02/23 03:11 Blood - Central Line Blood Culture - Final Coag negative Staphylococcus 10/02/23 06:40 Sputum - Suctioned Gram Stain - Final 10/02/23 06:40 Sputum - Suctioned Sputum Culture - Final 10/02/23 06:40 Urine Catheterized - Miguel Catheter Urine Culture - Final No growth. Procedures Date of Service Date of Service: 11/23/23 Assessment & Plan Assessment and plan (1) AMBER (acute kidney injury): Status: Acute (2) Hyperkalemia: Status: Acute (3) CKD (chronic kidney disease): Status: Acute Plan 62-year-old man with HIV has acute kidney injury superimposed on chronic kidney disease with hyperkalemia and mild metabolic acidosis. DDX acute kidney injury would include acute tubular necrosis from various episodes of hypotension as well as underlying infectious process. 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 Urine - No eosinophils Urine Pro: Cr > 2.0 Creatinine improved and now around 3.2 Recommendations Watch urine output closely. No absolute indication for dialysis today Increase free water intake to correct hypernatremia Shall follow closely We will follow with the team. Time Spent With Patient Time: Total time managing care of this patient today ____ minutes. Progress Note: Quality Stroke Does the patient have a stroke diagnosis?: No
[2023-11-18 17:26] LABS: Glucose, Whole Blood 101 mg/dL (60-115)
[2023-11-18 23:44] LABS: Glucose, Whole Blood 121 mg/dL (60-115)
[2023-11-19] VITALS (33 sets, daily range): BP systolic 100–171; BP diastolic 68–103; PULSE 11–130; RESP 12–36; TEMP 34.8–37.9; O2SAT 88–100
[2023-11-19] MEDS: QUEtiapine Fumarate 25 MG TABLET 12.5 MG PO ×2 (02:01→04:49)
[2023-11-19] MEDS: Metoprolol Tartrate 25 MG TABLET PO ×3 (02:01→18:12)
[2023-11-19 05:14] LABS: MANUAL DIFF FLAG NO
[2023-11-19 05:17] LABS: Basophils Percent Auto 0.4 % (0-2); Eosinophils Absolute Auto 0.4 X10*3/uL (0.0-0.4); Eosinophils Percent Auto 6.9 % (0-4); Hematocrit 24.2 % (42.0-52.0); Hemoglobin 8.1 g/dl (14.0-18.0); Imm Gran Abs Auto 0.01 X10*3/uL (0.00-0.03); Imm Gran Pct Auto 0.2 % (0.0-0.4); Lymphocytes Absolute Auto 1.5 X10*3/uL (1.2-4.9); Lymphocytes Percent Auto 26.3 % (20-40); Mean Corpuscular HGB Conc 33.5 g/dl (31.0-36.0); Mean Corpuscular Hemoglobin 29.1 pg (27.0-33.0); Mean Corpuscular Volume 87.1 fL (80.0-98.0); Mean Platelet Volume 10.5 fL (9.4-12.4); Monocytes Absolute Auto 0.6 X10*3/uL (0.1-1.2); Monocytes Percent Auto 10.1 % (2-11); Neutrophils Absolute Auto 3.2 x10*3/uL (2.0-8.3); Neutrophils Percent Auto 56.1 % (45-73); Platelet Count 150 X10*3/uL (160-400); Red Blood Count 2.78 X10*6/uL (4.60-5.80); Red Cell Distribution Width 18.6 % (11.0-16.0); White Blood Count 5.6 X10*3/uL (4.8-10.8)
[2023-11-19] MEDS: LORazepam 1 MG TABLET PO ×2 (05:31→06:50)
[2023-11-19] MEDS: Omeprazole/Na Bicarb Oral Susp 20 MG/10 ML UD Cup 40 MG PO (05:32)
[2023-11-19 05:35] LABS: Albumin Level 3.5 g/dL (3.5-5.0); Anion Gap 14 (12-20); Blood Urea Nitrogen 81 mg/dL (9-16); Calcium 9.2 mg/dL (8.4-10.2); Carbon Dioxide 22 mmol/L (22-29); Chloride 111 mmol/L (96-108); Creatinine Clr Calc Pharmacy 24.9; Estimated Glomerular Filt Rate 21; Glucose Random 151 mg/dL (60-115); Magnesium 2.4 mg/dL (1.6-2.6); Phosphorus 4.1 mg/dL (2.7-4.5); Potassium 3.7 mmol/L (3.3-5.1); Sodium 143 mmol/L (135-145)
[2023-11-19] MEDS: Insulin Lispro 100 UNIT/ML 3 ML VIAL SUBCUT (05:42)
[2023-11-19] MEDS: oxyCODONE HCl Immed Release 5 MG TABLET PO (06:49)
--- NOTE | 2023-11-19 07:35 | P.PNCC_ITS ---
Subjective Subjective Date of Service: 11/19/23 Interval History: no significant overnight events Critical Care Time (minutes): 60 Physical Exam 2 Vital Signs: Vital Signs: Last Vital Signs Temp 98.7 F 11/19/23 07:00 Pulse 130 H 11/19/23 07:00 Resp 36 H 11/19/23 07:00 BP 136/86 11/19/23 07:00 Pulse Ox 96 11/19/23 07:00 O2 Del Method Mechanical Ventil ation 11/19/23 07:00 O2 Flow Rate 30 11/13/23 12:00 FiO2 35 11/19/23 07:28 BMI result Body Mass Index 22.9 Const: General: comfortable, no acute distress, well developed, alert, awake and Physically active Orientation/consciousness: patient oriented x3 HEENT: Head: Yes normal to inspection, Yes normocephalic and Yes atraumatic Eyes: General: appearance normal, both eyes and all related structures Neck: Other: tracheostomy midline Neck: Yes normal visual inspection, Yes full ROM and Yes supple Chest: Chest palpation & inspection: normal inspection of the chest Resp: Other: no appreciable rales, rhonchi, wheezing Cardio: Rate: regular rate Rhythm: regular rhythm GI: Inspection: Yes normal to inspection, No Abdominal wall edema and No distended Palpation (GI): Soft to palpation, not firm, nontender, no guarding and not rigid : Male General Exam: Yes normal external exam Skin: General skin exam: no rashes or lesions noted Neuro: General: patient oriented x3, tone normal, moves all extremities and no focal motor deficits Extrem: General: Yes normal to inspection, Yes full ROM, Yes capillary refill normal and Yes no clubbing, cyanosis or edema Psych: Other: appreciable anxiety, redirectable with verbal stimulus Objective Data Labs 11/19/23 04:49 11/19/23 04:49 Labs: Laboratory Results - last 24 hr 11/18/23 11/18/23 11/18/23 12:55 17:23 23:40 WBC RBC Hgb Hct MCV MCH MCHC RDW Plt Count MPV Immature Gran % (Auto) Neut % (Auto) Lymph % (Auto) [place] % (Auto) Eos % (Auto) Baso % (Auto) Lymph # (Auto) [place] # (Auto) Eos # (Auto) Baso # (Auto) Abs Immat Gran (auto) Absolute Neuts (auto) Absolute Nucleated RBC Nucleated RBC % (auto) Sodium Potassium Chloride Carbon Dioxide Anion Gap BUN Creatinine Estim Creat Clear Calc Estimated GFR POC Glucose 111 101 121 H Random Glucose Calcium Phosphorus Magnesium Albumin 11/19/23 04:49 WBC 5.6 RBC 2.78 L Hgb 8.1 L Hct 24.2 L MCV 87.1 MCH 29.1 MCHC 33.5 RDW 18.6 H Plt Count 150 L MPV 10.5 Immature Gran % (Auto) 0.2 Neut % (Auto) 56.1 Lymph % (Auto) 26.3 [place] % (Auto) 10.1 Eos % (Auto) 6.9 H Baso % (Auto) 0.4 Lymph # (Auto) 1.5 [place] # (Auto) 0.6 Eos # (Auto) 0.4 Baso # (Auto) 0.0 Abs Immat Gran (auto) 0.01 Absolute Neuts (auto) 3.2 Absolute Nucleated RBC 0.000 Nucleated RBC % (auto) 0.0 Sodium 143 Potassium 3.7 Chloride 111 H Carbon Dioxide 22 Anion Gap 14 BUN 81 H Creatinine 3.02 H Estim Creat Clear Calc 24.9 Estimated GFR 21 POC Glucose Random Glucose 151 H Calcium 9.2 Phosphorus 4.1 Magnesium 2.4 Albumin 3.5 Microbiology Microbiology Results: Microbiology 11/14/23 02:10 Blood - Venous Blood Culture - Final No growth after 5 days. 11/14/23 02:09 Blood - Venous Blood Culture - Final No growth after 5 days. 11/07/23 21:36 Sputum - Suctioned Gram Stain - Final 11/07/23 21:36 Sputum - Suctioned Sputum Culture - Final No growth. 10/02/23 06:40 Sputum - Suctioned Direct Acid Fast Bacilli Smear - Final 10/02/23 03:11 Blood - Central Line Blood Culture - Final No growth after 5 days. 10/02/23 03:11 Blood - Central Line Blood Culture - Final Coag negative Staphylococcus 10/02/23 06:40 Sputum - Suctioned Gram Stain - Final 10/02/23 06:40 Sputum - Suctioned Sputum Culture - Final 10/02/23 06:40 Urine Catheterized - Miguel Catheter Urine Culture - Final No growth. Progress Note: A&P Assessment and plan (1) Respiratory failure: Status: Acute (2) Critical illness myopathy: Status: Acute (3) TERRY (obstructive sleep apnea): Status: Acute (4) COPD (chronic obstructive pulmonary disease): Status: Acute (5) Status post tracheostomy: Status: Acute (6) Acute on chronic renal insufficiency: Status: Acute (7) Hepatitis C: Status: Acute (8) HIV (human immunodeficiency virus infection): Status: Acute Plan Patient is a 62 Y M with HIV, HCV, COPD, presenting initially on 10/02 to ED w/ dyspnea, found to have influenza, c/f bacterial super-infection, c/b acute hypoxic respiratory failure, intubated; ICU course c/b septic shock, acute renal insufficiency, ileus; of note, patient extubated 10/12, re-intubated 10/13 d/t aspiration, critical illness myopathy, s/p trach/PEG 10/20 N: anxiety, on lamotrigine, quetiapine, hydroxyzine, lorazepam CV: no acute issues R: acute hypoxic respiratory failure d/t initially influenza, c/b critical illness myopathy, aspiration; wean ventilator as tolerated; COPD GI: s/p PEG 10/20, tube feeds : acute renal insufficiency, relatively stable; appreciate nephrology recommendations H: anemia, likely iatrogenic, transfuse as needed; chemical DVT prophylaxis ID: no acute issues; HIV, HCV E: no acute issues MSK: critical illness myopathy, PT Quality Stroke Does the patient have a stroke diagnosis?: No VTE Prior VTE?: No VTE Risk Level:: Medical - moderate - high VTE Device Contraindication: N/A - Device Ordered VTE Drug Contraindication: N/A - Med Ordered
[2023-11-19] MEDS: Tobramycin Sulfate 80 MG/2 ML VIAL 300 MG INHALE ×2 (08:09→22:57)
[2023-11-19] MEDS: Chlorhexidine Gluc Oral Rinse 15 ML MOUTHWASH BUCCAL ×3 (09:17→19:51)
[2023-11-19] MEDS: Lidocaine 4 % Patch ADH..PATCH 2 PATCH TRANSDERMA (09:17)
[2023-11-19] MEDS: lamoTRIgine 25 MG TABLET 50 MG PO ×2 (09:17→20:01)
[2023-11-19] MEDS: QUEtiapine Fumarate 25 MG TABLET PO ×2 (09:17→20:01)
[2023-11-19] MEDS: Heparin Sodium,Porcine 5,000 UNIT/ML VIAL 5000 UNIT SUBCUT ×2 (09:18→16:31)
[2023-11-19] MEDS: Bacitracin Oint 14 GM TUBE 1 APPL TOPICAL ×2 (09:18→20:02)
[2023-11-19] MEDS: Nystatin Powder 15 GM BOTTLE 1 APPL TOPICAL ×2 (09:18→20:02)
[2023-11-19] MEDS: 0.9 % Sodium Chloride Flush 10 ML SYRINGE IVFLUSH ×3 (09:18→23:59)
--- NOTE | 2023-11-19 09:38 | MHC.CLN ---
F/U PT CONTINUES TOLERATING TF WITH LOW RESIDUALS PER NSG DISCUSSED AT ROUNDS WITH REVIEWED LABS-NA WNL PT RECEIVING TF NEPRO AT MAX GOAL RATE 45ML/HR WITH 300ML Q 4 HR PROVIDES 1944KCALS (30KCALS/KG), 87G PROTEIN (1.3G/KG), 2585ML TOTAL WATER FROM FORMULA AND FLUSHES (39ML/KG) RECOMMEND REDUCING FREE WATER FLUSHES BACK TO 240ML Q 6 HRS TO PROVIDE 1745ML TOTAL FWF WITH FORMULA AND FLUSHES (26ML/KG) CONTINUE TO MONITOR TOLERANCE, RESIDUALS, AND LYTES
--- NOTE | 2023-11-19 11:07 | MHC.CM.PN ---
Pt doing well in ICU: communicating w/picture boards and writing - pt's cell phone charging for use as well. HCP completed on 11/17 naming his son, Earl Sinha. Pt clinically accepted at [facility] in [place] pending payor auth. Per Luc Escobedo at [facility], auth can take 5-7 days d/t the single case agreement status of vent joellen. Pt is medically ready to transition to rehab and both pt and son are aware of d/c plan. Pt will need ALS transport for pt airway managment. CM to follow.
[2023-11-19 11:32] LABS: Glucose, Whole Blood 111 mg/dL (60-115)
[2023-11-19 12:15] LABS: Glucose, Whole Blood 113 mg/dL (60-115)
[2023-11-19 17:53] LABS: Glucose, Whole Blood 108 mg/dL (60-115)
[2023-11-19] MEDS: hydrOXYzine HCL 25 MG TABLET PO (18:12)
[2023-11-19] MEDS: Melatonin 3 MG TABLET 6 MG PO (19:55)
[2023-11-19 23:57] LABS: Glucose, Whole Blood 125 mg/dL (60-115)
[2023-11-20] VITALS (31 sets, daily range): BP systolic 100–152; BP diastolic 63–101; PULSE 10–119; RESP 13–31; TEMP 34.1–37.5; O2SAT 92–115; BMI 23.4
[2023-11-20] MEDS: Metoprolol Tartrate 25 MG TABLET PO ×3 (02:03→17:33)
[2023-11-20] MEDS: hydrOXYzine HCL 25 MG TABLET PO ×2 (02:03→18:04)
[2023-11-20] MEDS: LORazepam 2 MG/ML VIAL IVPUSH (04:00)
[2023-11-20 04:51] LABS: MANUAL DIFF FLAG NO
[2023-11-20 04:52] LABS: Basophils Percent Auto 0.2 % (0-2); Eosinophils Absolute Auto 0.4 X10*3/uL (0.0-0.4); Eosinophils Percent Auto 7.9 % (0-4); Hematocrit 22.2 % (42.0-52.0); Hemoglobin 7.3 g/dl (14.0-18.0); Imm Gran Abs Auto 0.02 X10*3/uL (0.00-0.03); Imm Gran Pct Auto 0.4 % (0.0-0.4); Lymphocytes Absolute Auto 1.1 X10*3/uL (1.2-4.9); Lymphocytes Percent Auto 23.4 % (20-40); Mean Corpuscular HGB Conc 32.9 g/dl (31.0-36.0); Mean Corpuscular Hemoglobin 27.8 pg (27.0-33.0); Mean Corpuscular Volume 84.4 fL (80.0-98.0); Mean Platelet Volume 9.9 fL (9.4-12.4); Monocytes Absolute Auto 0.5 X10*3/uL (0.1-1.2); Monocytes Percent Auto 9.3 % (2-11); Neutrophils Absolute Auto 2.8 x10*3/uL (2.0-8.3); Neutrophils Percent Auto 58.8 % (45-73); Platelet Count 134 X10*3/uL (160-400); Red Blood Count 2.63 X10*6/uL (4.60-5.80); Red Cell Distribution Width 18.5 % (11.0-16.0); White Blood Count 4.8 X10*3/uL (4.8-10.8)
[2023-11-20 05:08] LABS: Albumin Level 3.1 g/dL (3.5-5.0); Anion Gap 14 (12-20); Blood Urea Nitrogen 82 mg/dL (9-16); Calcium 8.9 mg/dL (8.4-10.2); Carbon Dioxide 22 mmol/L (22-29); Chloride 112 mmol/L (96-108); Creatinine Clr Calc Pharmacy 24.6; Estimated Glomerular Filt Rate 21; Glucose Random 133 mg/dL (60-115); Magnesium 2.3 mg/dL (1.6-2.6); Phosphorus 3.6 mg/dL (2.7-4.5); Potassium 3.7 mmol/L (3.3-5.1); Sodium 144 mmol/L (135-145)
[2023-11-20] MEDS: Omeprazole/Na Bicarb Oral Susp 20 MG/10 ML UD Cup 40 MG PO (06:09)
[2023-11-20] MEDS: Tobramycin Sulfate 80 MG/2 ML VIAL 300 MG INHALE ×2 (07:16→22:51)
[2023-11-20] MEDS: lamoTRIgine 25 MG TABLET 50 MG PO ×2 (07:29→19:56)
[2023-11-20] MEDS: Heparin Sodium,Porcine 5,000 UNIT/ML VIAL 5000 UNIT SUBCUT ×3 (07:30→17:34)
[2023-11-20] MEDS: Chlorhexidine Gluc Oral Rinse 15 ML MOUTHWASH BUCCAL ×3 (07:30→19:56)
[2023-11-20] MEDS: Lidocaine 4 % Patch ADH..PATCH 2 PATCH TRANSDERMA (07:31)
[2023-11-20] MEDS: Albumin Human 25 % 100 ML IV ×2 (07:31→13:50)
[2023-11-20] MEDS: Nystatin Powder 15 GM BOTTLE 1 APPL TOPICAL ×2 (07:33→19:57)
[2023-11-20] MEDS: Bacitracin Oint 14 GM TUBE 1 APPL TOPICAL ×2 (07:34→19:57)
[2023-11-20] MEDS: 0.9 % Sodium Chloride Flush 10 ML SYRINGE IVFLUSH ×2 (07:34→17:47)
--- NOTE | 2023-11-20 08:06 | PM.CCPN ---
Subjective Subjective Date of Service: 11/20/23 Interval History: no significant overnight events Critical Care Time (minutes): 60 Physical Exam Vital Signs: Vital Signs: Last Vital Signs Temp 99.0 F 11/20/23 06:00 Pulse 107 H 11/20/23 07:23 Resp 25 H 11/20/23 07:23 BP 134/95 H 11/20/23 07:00 Pulse Ox 95 11/20/23 07:00 O2 Del Method Mechanical Ventil ation 11/20/23 07:00 O2 Flow Rate 30 11/13/23 12:00 FiO2 35 11/20/23 08:00 BMI result Body Mass Index 23.4 Const: General: healthy appearing, comfortable, no acute distress, well developed, alert, awake and Physically active Orientation/consciousness: patient oriented x3 HEENT: Head: Yes normal to inspection, Yes normocephalic and Yes atraumatic Eyes: General: appearance normal, both eyes and all related structures Neck: Other: tracheostomy midline, clean, dry, intact Neck: Yes normal visual inspection, Yes full ROM, Yes no meningeal signs and Yes trachea midline Chest: Chest palpation & inspection: normal inspection of the chest Resp: Other: some appreciable rhonchi, minimal wheezing; no appreciable rales Effort & Inspection: normal respiratory effort Cardio: Rate: regular rate Rhythm: regular rhythm GI: Inspection: Yes normal to inspection, No Abdominal wall edema and No distended Palpation (GI): Soft to palpation, not firm, nontender, no guarding and not rigid : Male General Exam: Yes normal external exam Skin: General skin exam: no rashes or lesions noted Neuro: General: patient oriented x3, tone normal, moves all extremities, no meningeal signs and no focal motor deficits Extrem: General: Yes normal to inspection, Yes full ROM, Yes capillary refill normal and Yes no clubbing, cyanosis or edema Psych: Other: appreciable anxiety, though verbally re-directable Objective Data Labs 11/20/23 04:43 11/20/23 04:43 Labs: Laboratory Results - last 24 hr 11/19/23 11/19/23 11/19/23 11:29 12:12 17:49 WBC RBC Hgb Hct MCV MCH MCHC RDW Plt Count MPV Immature Gran % (Auto) Neut % (Auto) Lymph % (Auto) [place] % (Auto) Eos % (Auto) Baso % (Auto) Lymph # (Auto) [place] # (Auto) Eos # (Auto) Baso # (Auto) Abs Immat Gran (auto) Absolute Neuts (auto) Absolute Nucleated RBC Nucleated RBC % (auto) Sodium Potassium Chloride Carbon Dioxide Anion Gap BUN Creatinine Estim Creat Clear Calc Estimated GFR POC Glucose 111 113 108 Random Glucose Calcium Phosphorus Magnesium Albumin 11/19/23 11/20/23 23:53 04:43 WBC 4.8 RBC 2.63 L Hgb 7.3 L Hct 22.2 L MCV 84.4 MCH 27.8 MCHC 32.9 RDW 18.5 H Plt Count 134 L MPV 9.9 Immature Gran % (Auto) 0.4 Neut % (Auto) 58.8 Lymph % (Auto) 23.4 [place] % (Auto) 9.3 Eos % (Auto) 7.9 H Baso % (Auto) 0.2 Lymph # (Auto) 1.1 L [place] # (Auto) 0.5 Eos # (Auto) 0.4 Baso # (Auto) 0.0 Abs Immat Gran (auto) 0.02 Absolute Neuts (auto) 2.8 Absolute Nucleated RBC 0.000 Nucleated RBC % (auto) 0.0 Sodium 144 Potassium 3.7 Chloride 112 H Carbon Dioxide 22 Anion Gap 14 BUN 82 H Creatinine 3.05 H Estim Creat Clear Calc 24.6 Estimated GFR 21 POC Glucose 125 H Random Glucose 133 H Calcium 8.9 Phosphorus 3.6 Magnesium 2.3 Albumin 3.1 L Microbiology Microbiology Results: Microbiology 11/14/23 02:10 Blood - Venous Blood Culture - Final No growth after 5 days. 11/14/23 02:09 Blood - Venous Blood Culture - Final No growth after 5 days. 11/07/23 21:36 Sputum - Suctioned Gram Stain - Final 11/07/23 21:36 Sputum - Suctioned Sputum Culture - Final No growth. 10/02/23 06:40 Sputum - Suctioned Direct Acid Fast Bacilli Smear - Final 10/02/23 03:11 Blood - Central Line Blood Culture - Final No growth after 5 days. 10/02/23 03:11 Blood - Central Line Blood Culture - Final Coag negative Staphylococcus 10/02/23 06:40 Sputum - Suctioned Gram Stain - Final 10/02/23 06:40 Sputum - Suctioned Sputum Culture - Final 10/02/23 06:40 Urine Catheterized - Miguel Catheter Urine Culture - Final No growth. Progress Note: A&P Assessment and plan (1) Acute on chronic renal insufficiency: Status: Acute (2) Status post tracheostomy: Status: Acute (3) Critical illness myopathy: Status: Acute (4) HIV (human immunodeficiency virus infection): Status: Acute (5) Respiratory failure: Status: Acute (6) COPD (chronic obstructive pulmonary disease): Status: Acute (7) Hepatitis C: Status: Acute Plan Patient is a 62 Y M with HIV, HCV, COPD, presenting initially on 10/02 to ED w/ dyspnea, found to have influenza, c/f bacterial super-infection, c/b acute hypoxic respiratory failure, intubated; ICU course c/b septic shock, acute renal insufficiency, ileus; of note, patient extubated 10/12, re-intubated 10/13 d/t aspiration, critical illness myopathy, s/p trach/PEG 10/20 N: anxiety, on lamotrigine, quetiapine, hydroxyzine, lorazepam CV: no acute issues R: acute hypoxic respiratory failure d/t initially influenza, c/b critical illness myopathy, aspiration; wean ventilator as tolerated; COPD GI: s/p PEG 10/20, tube feeds : acute renal insufficiency, relatively stable; appreciate nephrology recommendations H: anemia, likely iatrogenic, transfuse as needed; chemical DVT prophylaxis ID: no acute issues; HIV, HCV E: no acute issues MSK: critical illness myopathy, PT Quality Stroke Does the patient have a stroke diagnosis?: No VTE Prior VTE?: No VTE Risk Level:: Medical - moderate - high VTE Device Contraindication: N/A - Device Ordered VTE Drug Contraindication: N/A - Med Ordered
[2023-11-20] MEDS: QUEtiapine Fumarate 25 MG TABLET PO ×2 (10:38→19:56)
[2023-11-20 11:51] LABS: Glucose, Whole Blood 125 mg/dL (60-115)
[2023-11-20] MEDS: oxyCODONE HCl Immed Release 5 MG TABLET PO ×3 (11:52→19:56)
[2023-11-20 17:36] LABS: Glucose, Whole Blood 120 mg/dL (60-115)
[2023-11-20] MEDS: Melatonin 3 MG TABLET 6 MG PO (19:56)
[2023-11-20 23:54] LABS: Glucose, Whole Blood 121 mg/dL (60-115)
[2023-11-21] VITALS (35 sets, daily range): BP systolic 94–145; BP diastolic 58–98; PULSE 72–118; RESP 14–29; TEMP 34.1–37.1; O2SAT 92–100; BMI 22.3
[2023-11-21] MEDS: 0.9 % Sodium Chloride Flush 10 ML SYRINGE IVFLUSH ×4 (00:11→23:09)
[2023-11-21] MEDS: Heparin Sodium,Porcine 5,000 UNIT/ML VIAL 5000 UNIT SUBCUT ×2 (00:11→07:21)
[2023-11-21] MEDS: QUEtiapine Fumarate 25 MG TABLET PO ×3 (00:33→20:06)
[2023-11-21] MEDS: LORazepam 2 MG/ML VIAL IVPUSH (00:46)
[2023-11-21] MEDS: Metoprolol Tartrate 25 MG TABLET PO ×3 (01:56→18:18)
[2023-11-21 04:48] LABS: VBG Base Excess 3.5 mmol/L; VBG HCO3 26 mmol/L (22-26); VBG pCO2 34 mmHg; VBG pO2 34 mmHg
[2023-11-21 04:56] LABS: Eosinophils Absolute Auto 0.4 X10*3/uL (0.0-0.4); Eosinophils Percent Auto 8.6 % (0-4); Imm Gran Abs Auto 0.02 X10*3/uL (0.00-0.03); Imm Gran Pct Auto 0.5 % (0.0-0.4); Lymphocytes Absolute Auto 1.2 X10*3/uL (1.2-4.9); Lymphocytes Percent Auto 27.7 % (20-40); MANUAL DIFF FLAG SCAN; Mean Corpuscular HGB Conc 33.2 g/dl (31.0-36.0); Mean Corpuscular Hemoglobin 28.1 pg (27.0-33.0); Mean Corpuscular Volume 84.8 fL (80.0-98.0); Mean Platelet Volume 10.2 fL (9.4-12.4); Monocytes Absolute Auto 0.4 X10*3/uL (0.1-1.2); Neutrophils Absolute Auto 2.3 x10*3/uL (2.0-8.3); Neutrophils Percent Auto 53.2 % (45-73); Platelet Count 119 X10*3/uL (160-400); Red Blood Count 2.31 X10*6/uL (4.60-5.80); Red Cell Distribution Width 18.6 % (11.0-16.0); SCAN SMEAR FLAG 1; White Blood Count 4.4 X10*3/uL (4.8-10.8)
[2023-11-21 05:01] LABS: Hematocrit 19.6 % (42.0-52.0); Hemoglobin 6.5 g/dl (14.0-18.0)
[2023-11-21 05:09] LABS: Albumin Level 3.3 g/dL (3.5-5.0); Anion Gap 14 (12-20); Blood Urea Nitrogen 80 mg/dL (9-16); Calcium 8.9 mg/dL (8.4-10.2); Carbon Dioxide 22 mmol/L (22-29); Chloride 111 mmol/L (96-108); Creatinine Clr Calc Pharmacy 23.7; Estimated Glomerular Filt Rate 20; Glucose Random 117 mg/dL (60-115); Magnesium 2.4 mg/dL (1.6-2.6); Phosphorus 2.9 mg/dL (2.7-4.5); Potassium 3.7 mmol/L (3.3-5.1); Sodium 143 mmol/L (135-145)
[2023-11-21 05:20] LABS: SLIDE REVIEW VERIFIED
[2023-11-21] MEDS: Omeprazole/Na Bicarb Oral Susp 20 MG/10 ML UD Cup 40 MG PO (05:27)
[2023-11-21 05:41] LABS: Venous Blood Gas Refer to POC result
[2023-11-21] MEDS: lamoTRIgine 25 MG TABLET 50 MG PO ×2 (07:20→20:06)
[2023-11-21] MEDS: Lidocaine 4 % Patch ADH..PATCH 2 PATCH TRANSDERMA (07:21)
[2023-11-21] MEDS: Chlorhexidine Gluc Oral Rinse 15 ML MOUTHWASH BUCCAL ×2 (07:21→20:06)
[2023-11-21] MEDS: Acetaminophen Oral Liquid 650 MG/20.3 ML SOLUTION 975 MG PO (07:43)
[2023-11-21] MEDS: Tobramycin Sulfate 80 MG/2 ML VIAL 300 MG INHALE ×2 (08:06→20:04)
--- NOTE | 2023-11-21 08:12 | PM.CCPN ---
Subjective Subjective Date of Service: 11/21/23 Interval History: no significant overnight events Critical Care Time (minutes): 60 Physical Exam Vital Signs: Vital Signs: Last Vital Signs Temp 98.5 F 11/21/23 08:00 Pulse 106 H 11/21/23 08:00 Resp 27 H 11/21/23 08:00 BP 124/76 11/21/23 08:00 Pulse Ox 94 11/21/23 08:00 O2 Del Method Mechanical Ventil ation 11/21/23 08:00 O2 Flow Rate 30 11/13/23 12:00 FiO2 35 11/21/23 08:00 BMI result Body Mass Index 22.3 Const: General: healthy appearing, comfortable, no acute distress, well developed, alert, awake and Physically active Orientation/consciousness: patient oriented x3 HEENT: Head: Yes normal to inspection, Yes normocephalic and Yes atraumatic Eyes: General: appearance normal, both eyes and all related structures Neck: Neck: Yes normal visual inspection, Yes full ROM, Yes no meningeal signs and Yes supple Chest: Chest palpation & inspection: normal inspection of the chest Resp: Other: appreciable rhonchi; no appreciables rales, wheezing Cardio: Rate: regular rate Rhythm: regular rhythm GI: Inspection: Yes normal to inspection, No Abdominal wall edema and No distended Palpation (GI): Soft to palpation, not firm, nontender, no guarding and not rigid : Male General Exam: Yes normal external exam Skin: General skin exam: no rashes or lesions noted Neuro: General: patient oriented x3, tone normal, moves all extremities, no meningeal signs and no focal motor deficits Extrem: General: Yes normal to inspection, Yes full ROM, Yes capillary refill normal and Yes no clubbing, cyanosis or edema Psych: Appearance: grossly normal Objective Data Labs 11/21/23 04:44 11/21/23 04:44 Labs: Laboratory Results - last 24 hr 11/20/23 11/20/23 11/20/23 11:48 17:09 23:51 WBC RBC Hgb Hct MCV MCH MCHC RDW Plt Count MPV Immature Gran % (Auto) Neut % (Auto) Lymph % (Auto) [place] % (Auto) Eos % (Auto) Baso % (Auto) Lymph # (Auto) [place] # (Auto) Eos # (Auto) Baso # (Auto) Abs Immat Gran (auto) Absolute Neuts (auto) Absolute Nucleated RBC Nucleated RBC % (auto) Smear Tech's Comments VBG pH VBG pCO2 VBG pO2 VBG HCO3 VBG O2 Saturation VBG Base Excess Sodium Potassium Chloride Carbon Dioxide Anion Gap BUN Creatinine Estim Creat Clear Calc Estimated GFR POC Glucose 125 H 120 H 121 H Random Glucose Calcium Phosphorus Magnesium Albumin Blood Type Antibody Screen Crossmatch ([facility]) Blood Bank Comment 11/21/23 11/21/23 11/21/23 04:40 04:44 06:07 WBC 4.4 L RBC 2.31 L Hgb 6.5 L* Hct 19.6 L* MCV 84.8 MCH 28.1 MCHC 33.2 RDW 18.6 H Plt Count 119 L MPV 10.2 Immature Gran % (Auto) 0.5 H Neut % (Auto) 53.2 Lymph % (Auto) 27.7 [place] % (Auto) 10.0 Eos % (Auto) 8.6 H Baso % (Auto) 0.0 Lymph # (Auto) 1.2 [place] # (Auto) 0.4 Eos # (Auto) 0.4 Baso # (Auto) 0.0 Abs Immat Gran (auto) 0.02 Absolute Neuts (auto) 2.3 Absolute Nucleated RBC 0.000 Nucleated RBC % (auto) 0.0 Smear Tech's Comments VERIFIED VBG pH 7.50 H VBG pCO2 34 VBG pO2 34 VBG HCO3 26 VBG O2 Saturation 66.0 VBG Base Excess 3.5 Sodium 143 Potassium 3.7 Chloride 111 H Carbon Dioxide 22 Anion Gap 14 BUN 80 H Creatinine 3.19 H Estim Creat Clear Calc 23.7 Estimated GFR 20 POC Glucose Random Glucose 117 H Calcium 8.9 Phosphorus 2.9 Magnesium 2.4 Albumin 3.3 L Blood Type O Positive Antibody Screen POSITIVE Crossmatch ([facility]) See Detail Blood Bank Comment Technical Microbiology Microbiology Results: Microbiology 11/14/23 02:10 Blood - Venous Blood Culture - Final No growth after 5 days. 11/14/23 02:09 Blood - Venous Blood Culture - Final No growth after 5 days. 11/07/23 21:36 Sputum - Suctioned Gram Stain - Final 11/07/23 21:36 Sputum - Suctioned Sputum Culture - Final No growth. 10/02/23 06:40 Sputum - Suctioned Direct Acid Fast Bacilli Smear - Final 10/02/23 03:11 Blood - Central Line Blood Culture - Final No growth after 5 days. 10/02/23 03:11 Blood - Central Line Blood Culture - Final Coag negative Staphylococcus 10/02/23 06:40 Sputum - Suctioned Gram Stain - Final 10/02/23 06:40 Sputum - Suctioned Sputum Culture - Final 10/02/23 06:40 Urine Catheterized - Miguel Catheter Urine Culture - Final No growth. Progress Note: A&P Assessment and plan (1) Respiratory failure: Status: Acute (2) Critical illness myopathy: Status: Acute (3) Status post tracheostomy: Status: Acute (4) COPD (chronic obstructive pulmonary disease): Status: Acute (5) Acute on chronic renal insufficiency: Status: Acute (6) HIV (human immunodeficiency virus infection): Status: Acute (7) Hepatitis C: Status: Acute Plan Patient is a 62 Y M with HIV, HCV, COPD, presenting initially on 10/02 to ED w/ dyspnea, found to have influenza, c/f bacterial super-infection, c/b acute hypoxic respiratory failure, intubated; ICU course c/b septic shock, acute renal insufficiency, ileus; of note, patient extubated 10/12, re-intubated 10/13 d/t aspiration, critical illness myopathy, s/p trach/PEG 10/20 N: anxiety, on lamotrigine, quetiapine, hydroxyzine, lorazepam CV: no acute issues R: acute hypoxic respiratory failure d/t initially influenza, c/b critical illness myopathy, aspiration; wean ventilator as tolerated; COPD GI: s/p PEG 10/20, tube feeds : acute renal insufficiency, relatively stable; appreciate nephrology recommendations H: anemia, likely iatrogenic, transfuse as needed; last transfusion 11/20; to hold chemical DVT prophylaxis ID: no acute issues; HIV, HCV E: no acute issues MSK: critical illness myopathy, PT Quality Stroke Does the patient have a stroke diagnosis?: No VTE Prior VTE?: No VTE Risk Level:: Medical - moderate - high VTE Device Contraindication: N/A - Device Ordered VTE Drug Contraindication: Treatment Not Tolerated
[2023-11-21] MEDS: hydrOXYzine HCL 25 MG TABLET PO ×2 (10:29→23:09)
[2023-11-21] MEDS: Nystatin Powder 15 GM BOTTLE 1 APPL TOPICAL ×2 (10:30→20:07)
[2023-11-21] MEDS: Bacitracin Oint 14 GM TUBE 1 APPL TOPICAL ×2 (10:30→20:07)
[2023-11-21] MEDS: ondansetron HCL 4 MG/2 ML VIAL IVPUSH ×2 (10:40→14:26)
[2023-11-21] MEDS: oxyCODONE HCl Immed Release 5 MG TABLET PO ×2 (11:28→16:07)
[2023-11-21 12:16] LABS: Glucose, Whole Blood 110 mg/dL (60-115)
[2023-11-21 18:16] LABS: Glucose, Whole Blood 124 mg/dL (60-115)
[2023-11-21 19:52] LABS: Hematocrit 26.9 % (42.0-52.0); Hemoglobin 8.6 g/dl (14.0-18.0); Mean Corpuscular Hemoglobin 26.8 pg (27.0-33.0); Mean Corpuscular Volume 83.8 fL (80.0-98.0); Mean Platelet Volume 10.7 fL (9.4-12.4); Platelet Count 148 X10*3/uL (160-400); Red Blood Count 3.21 X10*6/uL (4.60-5.80); Red Cell Distribution Width 18.4 % (11.0-16.0); White Blood Count 4.6 X10*3/uL (4.8-10.8)
[2023-11-21 20:12] LABS: Albumin Level 3.5 g/dL (3.5-5.0); Anion Gap 14 (12-20); Blood Urea Nitrogen 78 mg/dL (9-16); Carbon Dioxide 22 mmol/L (22-29); Chloride 109 mmol/L (96-108); Creatinine Clr Calc Pharmacy 24.1; Estimated Glomerular Filt Rate 21; Glucose Random 131 mg/dL (60-115); Magnesium 2.5 mg/dL (1.6-2.6); Phosphorus 3.7 mg/dL (2.7-4.5); Sodium 141 mmol/L (135-145)
[2023-11-21 23:55] LABS: Glucose, Whole Blood 114 mg/dL (60-115)
[2023-11-22] VITALS (31 sets, daily range): BP systolic 105–138; BP diastolic 64–94; PULSE 86–108; RESP 16–25; TEMP 34.9–37.2; O2SAT 94–100; BMI 22.3
[2023-11-22] MEDS: Melatonin 3 MG TABLET 6 MG PO ×2 (01:58→19:47)
[2023-11-22] MEDS: Metoprolol Tartrate 25 MG TABLET PO ×3 (01:59→18:19)
[2023-11-22 04:51] LABS: VBG Base Excess 2.6 mmol/L; VBG HCO3 27 mmol/L (22-26); VBG pCO2 42 mmHg; VBG pH 7.41 (7.32-7.43); VBG pO2 39 mmHg
[2023-11-22 04:56] LABS: Venous Blood Gas Refer to POC result
[2023-11-22 05:00] LABS: MANUAL DIFF FLAG NO
[2023-11-22 05:01] LABS: Eosinophils Absolute Auto 0.4 X10*3/uL (0.0-0.4); Eosinophils Percent Auto 8.4 % (0-4); Hematocrit 23.3 % (42.0-52.0); Hemoglobin 7.7 g/dl (14.0-18.0); Imm Gran Abs Auto 0.02 X10*3/uL (0.00-0.03); Imm Gran Pct Auto 0.4 % (0.0-0.4); Lymphocytes Absolute Auto 1.2 X10*3/uL (1.2-4.9); Lymphocytes Percent Auto 25.5 % (20-40); Mean Corpuscular Hemoglobin 28.2 pg (27.0-33.0); Mean Corpuscular Volume 85.3 fL (80.0-98.0); Mean Platelet Volume 10.8 fL (9.4-12.4); Monocytes Absolute Auto 0.4 X10*3/uL (0.1-1.2); Monocytes Percent Auto 9.5 % (2-11); Neutrophils Absolute Auto 2.6 x10*3/uL (2.0-8.3); Neutrophils Percent Auto 56.2 % (45-73); Platelet Count 128 X10*3/uL (160-400); Red Blood Count 2.73 X10*6/uL (4.60-5.80); Red Cell Distribution Width 18.6 % (11.0-16.0); White Blood Count 4.6 X10*3/uL (4.8-10.8)
[2023-11-22 05:16] LABS: Albumin Level 3.2 g/dL (3.5-5.0); Anion Gap 14 (12-20); Blood Urea Nitrogen 80 mg/dL (9-16); Calcium 8.8 mg/dL (8.4-10.2); Carbon Dioxide 23 mmol/L (22-29); Chloride 108 mmol/L (96-108); Creatinine Clr Calc Pharmacy 21.6; Estimated Glomerular Filt Rate 18; Glucose Random 131 mg/dL (60-115); Magnesium 2.4 mg/dL (1.6-2.6); Phosphorus 3.5 mg/dL (2.7-4.5); Potassium 3.7 mmol/L (3.3-5.1); Sodium 141 mmol/L (135-145)
[2023-11-22] MEDS: Omeprazole/Na Bicarb Oral Susp 20 MG/10 ML UD Cup 40 MG PO (06:21)
[2023-11-22] MEDS: Tobramycin Sulfate 80 MG/2 ML VIAL 300 MG INHALE ×2 (07:34→21:32)
[2023-11-22] MEDS: Albumin Human 25 % 100 ML IV ×3 (07:48→19:45)
[2023-11-22] MEDS: 0.9 % Sodium Chloride Flush 10 ML SYRINGE IVFLUSH ×2 (07:48→20:05)
[2023-11-22] MEDS: Lidocaine 4 % Patch ADH..PATCH 2 PATCH TRANSDERMA (07:49)
[2023-11-22] MEDS: Chlorhexidine Gluc Oral Rinse 15 ML MOUTHWASH BUCCAL ×3 (07:49→19:46)
[2023-11-22] MEDS: QUEtiapine Fumarate 25 MG TABLET PO ×2 (07:49→19:49)
[2023-11-22] MEDS: Bacitracin Oint 14 GM TUBE 1 APPL TOPICAL ×2 (07:49→19:53)
[2023-11-22] MEDS: Nystatin Powder 15 GM BOTTLE 1 APPL TOPICAL ×2 (07:49→19:53)
[2023-11-22] MEDS: lamoTRIgine 25 MG TABLET 50 MG PO ×2 (07:49→19:47)
[2023-11-22] MEDS: oxyCODONE HCl Immed Release 5 MG TABLET PO ×2 (08:18→19:48)
--- NOTE | 2023-11-22 09:17 | PM.CCPN ---
Subjective Subjective Date of Service: 11/22/23 Interval History: 62-year-old gentleman with underlying HIV on HAART, hep C, COPD admitted on 10/02/2023 with acute hypoxic respiratory failure secondary to influenza with superimposed bacterial superinfection requiring intubation, pressor, and ventilatory support. Cultures are negative to date. Shock component has resolved. Now with abdominal distention secondary to ileus versus SBO, evaluated by general surgeon and deemed to underlying ileus. Extubated 10/13/2023. On 10/14/2023 with an aspiration event resulting in refractory hypoxia requiring emergent intubation and ventilatory support. Post tracheostomy and gastrostomy on 10/21/2023. Now with significant critical illness myopathy. 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 No events overnight. Critical Care Time (minutes): 60 Physical Exam Vital Signs: Vital Signs: Last Vital Signs Temp 97.7 F 11/22/23 08:00 Pulse 102 H 11/22/23 09:00 Resp 17 11/22/23 09:00 BP 122/84 11/22/23 09:00 Pulse Ox 95 11/22/23 09:00 O2 Del Method Mechanical Ventil ation 11/22/23 09:00 O2 Flow Rate 40 11/22/23 03:00 FiO2 35 11/22/23 09:00 BMI result Body Mass Index 22.3 Const: General: no acute distress, alert and awake Eyes: Sclerae: sclerae normal EOM: EOMs intact bilaterally Neck: Neck: Yes no lymphadenopathy, Yes trachea midline, Yes supple and Yes tracheostomy present (On vent) Resp: Effort & Inspection: normal respiratory effort and no respiratory distress Auscultation: clear to auscultation bilaterally Cardio: Rate: tachycardic Rhythm: regular rhythm Heart sounds: no gallops, no murmurs and no rubs GI: Inspection: Yes G-tube present Palpation (GI): Soft to palpation and Other GI palpation findings present ( Nontender) Auscultation: normal bowel sounds Extrem: General: Yes no pedal edema, No clubbing and No cyanosis Objective Data Labs 11/22/23 04:42 11/22/23 04:42 Labs: Laboratory Results - last 24 hr 11/21/23 11/21/23 11/21/23 06:07 06:07 06:07 WBC RBC Hgb Hct MCV MCH MCHC RDW Plt Count MPV Immature Gran % (Auto) Neut % (Auto) Lymph % (Auto) [place] % (Auto) Eos % (Auto) Baso % (Auto) Lymph # (Auto) [place] # (Auto) Eos # (Auto) Baso # (Auto) Abs Immat Gran (auto) Absolute Neuts (auto) Absolute Nucleated RBC Nucleated RBC % (auto) VBG pH VBG pCO2 VBG pO2 VBG HCO3 VBG O2 Saturation VBG Base Excess Sodium Potassium Chloride Carbon Dioxide Anion Gap BUN Creatinine Estim Creat Clear Calc Estimated GFR POC Glucose Random Glucose Calcium Phosphorus Magnesium Albumin Blood Type O Positive Antibody Screen POSITIVE Antibody Identification Anti-E Anti-K Anti-M JENNIFER, Polyspecific POSITIVE A Positive JENNIFER Work-up IgG=Pos R4l=Ujs A Crossmatch ([facility]) See Detail Blood Bank Comment Technical 11/21/23 11/21/23 11/21/23 12:14 18:12 19:45 WBC 4.6 L RBC 3.21 L D Hgb 8.6 L D Hct 26.9 L D MCV 83.8 MCH 26.8 L MCHC 32.0 RDW 18.4 H Plt Count 148 L MPV 10.7 Immature Gran % (Auto) Neut % (Auto) Lymph % (Auto) [place] % (Auto) Eos % (Auto) Baso % (Auto) Lymph # (Auto) [place] # (Auto) Eos # (Auto) Baso # (Auto) Abs Immat Gran (auto) Absolute Neuts (auto) Absolute Nucleated RBC 0.000 Nucleated RBC % (auto) 0.0 VBG pH VBG pCO2 VBG pO2 VBG HCO3 VBG O2 Saturation VBG Base Excess Sodium 141 Potassium 4.0 Chloride 109 H Carbon Dioxide 22 Anion Gap 14 BUN 78 H Creatinine 3.04 H Estim Creat Clear Calc 24.1 Estimated GFR 21 POC Glucose 110 124 H Random Glucose 131 H Calcium 9.0 Phosphorus 3.7 Magnesium 2.5 Albumin 3.5 Blood Type Antibody Screen Antibody Identification JENNIFER, Polyspecific Positive JENNIFER Work-up Crossmatch ([facility]) Blood Bank Comment 11/21/23 11/22/23 11/22/23 23:47 04:42 04:43 WBC 4.6 L RBC 2.73 L Hgb 7.7 L Hct 23.3 L MCV 85.3 MCH 28.2 MCHC 33.0 RDW 18.6 H Plt Count 128 L MPV 10.8 Immature Gran % (Auto) 0.4 Neut % (Auto) 56.2 Lymph % (Auto) 25.5 [place] % (Auto) 9.5 Eos % (Auto) 8.4 H Baso % (Auto) 0.0 Lymph # (Auto) 1.2 [place] # (Auto) 0.4 Eos # (Auto) 0.4 Baso # (Auto) 0.0 Abs Immat Gran (auto) 0.02 Absolute Neuts (auto) 2.6 Absolute Nucleated RBC 0.000 Nucleated RBC % (auto) 0.0 VBG pH 7.41 VBG pCO2 42 VBG pO2 39 VBG HCO3 27 H VBG O2 Saturation 70.0 VBG Base Excess 2.6 Sodium 141 Potassium 3.7 Chloride 108 Carbon Dioxide 23 Anion Gap 14 BUN 80 H Creatinine 3.39 H Estim Creat Clear Calc 21.6 Estimated GFR 18 POC Glucose 114 Random Glucose 131 H Calcium 8.8 Phosphorus 3.5 Magnesium 2.4 Albumin 3.2 L Blood Type Antibody Screen Antibody Identification JENNIFER, Polyspecific Positive JENNIFER Work-up Crossmatch (G) Blood Bank Comment Microbiology Microbiology Results: Microbiology 11/14/23 02:10 Blood - Venous Blood Culture - Final No growth after 5 days. 11/14/23 02:09 Blood - Venous Blood Culture - Final No growth after 5 days. 11/07/23 21:36 Sputum - Suctioned Gram Stain - Final 11/07/23 21:36 Sputum - Suctioned Sputum Culture - Final No growth. 10/02/23 06:40 Sputum - Suctioned Direct Acid Fast Bacilli Smear - Final 10/02/23 03:11 Blood - Central Line Blood Culture - Final No growth after 5 days. 10/02/23 03:11 Blood - Central Line Blood Culture - Final Coag negative Staphylococcus 10/02/23 06:40 Sputum - Suctioned Gram Stain - Final 10/02/23 06:40 Sputum - Suctioned Sputum Culture - Final 10/02/23 06:40 Urine Catheterized - Miguel Catheter Urine Culture - Final No growth. Progress Note: A&P Assessment and plan (1) Status post tracheostomy: Status: Acute (2) CKD (chronic kidney disease): Status: Acute (3) HIV (human immunodeficiency virus infection): Status: Acute (4) Hepatitis C: Status: Acute (5) COPD (chronic obstructive pulmonary disease): Status: Acute (6) Respiratory failure: Status: Acute Plan Assessment: 62-year-old gentleman with underlying HIV on HAART, hep C admitted with acute hypoxic respiratory failure secondary to bacterial superinfection of underlying influenza now requiring ventilatory support Plan: Neuro: Anxiety component now controlled on Seroquel/Lamictal. Cardiac: No acute issues. Pulmonary: Acute hypoxic respiratory failure secondary to bacterial superinfection of underlying influenza, improved and extubated on 10/13/2023. However with development of recurrent aspirations requiring re-intubation on 10/14/2023. Now status post tracheostomy/gastrostomy on 10/21/2023. Continue to titrate off ventilatory support as tolerated. Renal: Kidney function stabilized with creatinine around 3 and BUN around 80 likely secondary to HIV nephropathy. Non oliguric. Nephrology service care appreciated. Endo: No acute issues. GI: No acute issues. ID: No acute issues. Heme/Onc: No acute issues. Psych: No acute issues. Miscellaneous: Critical illness myopathy, continue with PT. Prophylaxis: Heparin Diet: Tube feeds Critical care time spent: 60 minutes Quality Stroke Does the patient have a stroke diagnosis?: No VTE Prior VTE?: No VTE Risk Level:: Medical - moderate - high VTE Device Contraindication: N/A - Device Ordered VTE Drug Contraindication: Treatment Not Tolerated
--- NOTE | 2023-11-22 09:44 | MHC.CLN ---
F/U PT CONTINUES TOLERATING TF WITH LOW RESIDUALS PER NSG DISCUSSED AT ROUNDS WITH MD REVIEWED LABS-NA WNL PT RECEIVING TF NEPRO AT MAX GOAL RATE 45ML/HR WITH 240ML Q 6 HR PROVIDES 1944KCALS (30KCALS/KG), 87G PROTEIN (1.3G/KG), 1745ML TOTAL WATER FROM FORMULA AND FLUSHES (26ML/KG) CONTINUE TO MONITOR TOLERANCE, RESIDUALS, AND LYTES
--- NOTE | 2023-11-22 10:02 | MHC.CM.PN ---
Received message from [facility]: they have general [facility] auth for pt transfer but continue to wait for the Vent service auth which may take a few days to return. Updated ICU care team, pt and pt's son/HCP, Earl Sinha. Pt will need ALS transport for airway management and suctioning. CM to follow.
[2023-11-22] MEDS: hydrOXYzine HCL 25 MG TABLET PO ×2 (10:33→18:20)
[2023-11-22 11:40] LABS: Glucose, Whole Blood 127 mg/dL (60-115)
[2023-11-22 17:32] LABS: Glucose, Whole Blood 111 mg/dL (60-115)
[2023-11-22] MEDS: Acetaminophen Oral Liquid 650 MG/20.3 ML SOLUTION 975 MG PO (19:46)
[2023-11-22] MEDS: LORazepam 1 MG TABLET 2 MG PO (22:40)
[2023-11-22 22:52] LABS: Glucose, Whole Blood 134 mg/dL (60-115)
[2023-11-22 23:54] LABS: Glucose, Whole Blood 97 mg/dL (60-115)
[2023-11-23] VITALS (37 sets, daily range): BP systolic 101–199; BP diastolic 59–120; PULSE 84–133; RESP 16–31; TEMP 34.8–37.1; O2SAT 90–100; BMI 22.5
[2023-11-23] MEDS: Albumin Human 25 % 100 ML IV (02:06)
[2023-11-23] MEDS: Metoprolol Tartrate 25 MG TABLET PO ×3 (02:08→18:13)
[2023-11-23] MEDS: hydrOXYzine HCL 25 MG TABLET PO ×2 (02:08→14:03)
[2023-11-23] MEDS: Acetaminophen Oral Liquid 650 MG/20.3 ML SOLUTION 975 MG PO ×2 (04:08→20:32)
[2023-11-23] MEDS: oxyCODONE HCl Immed Release 5 MG TABLET PO ×3 (04:08→14:03)
[2023-11-23] MEDS: QUEtiapine Fumarate 25 MG TABLET PO ×4 (04:09→20:00)
[2023-11-23] MEDS: Albuterol Sulfate (0.083%) 2.5 MG/3 ML VIAL.NEB INHALE ×3 (04:33→18:58)
[2023-11-23 04:45] LABS: VBG Base Excess 1.1 mmol/L; VBG HCO3 27 mmol/L (22-26); VBG pCO2 48 mmHg; VBG pH 7.34 (7.32-7.43); VBG pO2 42 mmHg
[2023-11-23 04:49] LABS: Venous Blood Gas Refer to POC result
[2023-11-23] MEDS: Omeprazole/Na Bicarb Oral Susp 20 MG/10 ML UD Cup 40 MG PO (05:28)
[2023-11-23 05:49] LABS: Basophils Percent Auto 0.3 % (0-2); Monocytes Absolute Auto 0.4 X10*3/uL (0.1-1.2); PLT CLUMP 1; SCAN SMEAR FLAG 1
[2023-11-23 05:51] LABS: Eosinophils Absolute Auto 0.3 X10*3/uL (0.0-0.4); Eosinophils Percent Auto 7.8 % (0-4); Hematocrit 22.5 % (42.0-52.0); Hemoglobin 7.4 g/dl (14.0-18.0); Imm Gran Abs Auto 0.02 X10*3/uL (0.00-0.03); Imm Gran Pct Auto 0.5 % (0.0-0.4); Lymphocytes Absolute Auto 0.9 X10*3/uL (1.2-4.9); Lymphocytes Percent Auto 23.7 % (20-40); Mean Corpuscular HGB Conc 32.9 g/dl (31.0-36.0); Mean Corpuscular Hemoglobin 28.4 pg (27.0-33.0); Mean Corpuscular Volume 86.2 fL (80.0-98.0); Monocytes Percent Auto 9.1 % (2-11); Neutrophils Absolute Auto 2.3 x10*3/uL (2.0-8.3); Neutrophils Percent Auto 58.6 % (45-73); Red Blood Count 2.61 X10*6/uL (4.60-5.80); Red Cell Distribution Width 18.5 % (11.0-16.0)
[2023-11-23 06:04] LABS: MANUAL DIFF FLAG NO; Platelet Count 121 X10*3/uL (160-400); White Blood Count 3.7 X10*3/uL (4.8-10.8)
--- NOTE | 2023-11-23 06:08 | PC.NURSE ---
CARE ASSUMED 7PM...AWAKE..ALERT...JOHNSON...COMMUNICATES MORE CLEARLY MOUTHING WORDS TONIGHT....ANXIOUS AND RESTLESS INTERMITTANTLY..ALSO C/O NECK/BACK PAIN AND HEADACHE..SCHEDULED AND PRN MEDS GIVEN WITH ONLY TRANSIENT EFFECT...ICU PROFESSOR OF COMMUNICATION AND WRITING UPDATED...ANXIOUS/PULLING ON LINES....ATIVAN 2MG PO VIA PEG GIVEN...RESTFUL X3-4 HOURS...INCONTINANT BOTH URINE AND LOOSE BROWN STOOL....2 MEASURED VOIDS OD 100ml IN URINAL...BLADDER SCANNED POST INCONTINANCE FOR 0ml....ELEVATED PEAK AIRWAY PRESSURES THIS AM...SOFT EXPIRATORY WHEEZES PRESENT....ALBUTEROL UPDRAFTS Q4H PRN ORDERED BY PROFESSOR OF COMMUNICATION AND WRITING...DECREASED PEAK AIRWAY PRESSURES AFTER UPDRAFT
[2023-11-23 06:14] LABS: Albumin Level 4.1 g/dL (3.5-5.0); Anion Gap 15 (12-20); Blood Urea Nitrogen 79 mg/dL (9-16); Calcium 9.1 mg/dL (8.4-10.2); Carbon Dioxide 24 mmol/L (22-29); Chloride 105 mmol/L (96-108); Creatinine Clr Calc Pharmacy 20.9; Estimated Glomerular Filt Rate 18; Glucose Random 156 mg/dL (60-115); Magnesium 2.4 mg/dL (1.6-2.6); Phosphorus 3.9 mg/dL (2.7-4.5); Potassium 3.5 mmol/L (3.3-5.1); Sodium 140 mmol/L (135-145)
[2023-11-23] MEDS: Tobramycin Sulfate 80 MG/2 ML VIAL 300 MG INHALE ×2 (07:50→21:46)
[2023-11-23] MEDS: Potassium Chloride Packet 20 MEQ PACKET 40 MEQ G-TUBE (07:59)
[2023-11-23] MEDS: 0.9 % Sodium Chloride Flush 10 ML SYRINGE IVFLUSH (07:59)
[2023-11-23] MEDS: lamoTRIgine 25 MG TABLET 50 MG PO ×2 (08:01→20:00)
[2023-11-23] MEDS: Nystatin Powder 15 GM BOTTLE 1 APPL TOPICAL ×2 (08:02→20:00)
[2023-11-23] MEDS: Chlorhexidine Gluc Oral Rinse 15 ML MOUTHWASH BUCCAL ×3 (08:02→20:00)
[2023-11-23] MEDS: Bacitracin Oint 14 GM TUBE 1 APPL TOPICAL ×2 (08:02→20:00)
[2023-11-23] MEDS: Lidocaine 4 % Patch ADH..PATCH 2 PATCH TRANSDERMA (08:02)
--- NOTE | 2023-11-23 09:14 | MHC.CM.PN ---
Addendum entered by Machelle Austin 11/23/23 13:29: Received call from [facility] EKG MANAGER Sharifa Lea who states auth has been given for pt to transfer to [place]. Call placed to Kyara Conti [phone], liasion at [facility] to inform her of [facility] decision-message also left in [facility]. Waiting for reply. [facility] rebooked for 11/23 at 2pm. ICU care team aware of plan revision: L/M w/pt's son Earl informing of the change in d/c date. CM to await response. Original Note: Pt continues to make strong clinical progress in ICU: will start trach collar trials today and was able to stand with the Anju lift over the weekend. Today's plan of care will focus on trach collar and PT. [facility] in [place] working on vent auth with [facility]. Once auth obtained, pt will be able to transfer via ALS. CM to follow.
--- NOTE | 2023-11-23 10:17 | P.DS_ITS ---
DS: Providers Provider Date of Service: 11/23/23 Date of admission: 10/02/23 04:08 Primary care physician: Loreta Bhagat MD Consults: 10/02/23 07:30 Consult to Infectious Diseases Routine Consulting Provider: DOLORES WALKER Reason for consultation: HIV, Hypoxic Resp Failure d/t Influenza Has provider been notified: No 10/12/23 10:20 Consult to Nephrology Routine Consulting Provider: [facility] Reason for consultation: AMBER Has provider been notified: Yes 10/20/23 10:13 Consult to General Surgery Routine Consulting Provider: Evan Berman Reason for consultation: PEG Has provider been notified: Yes 10/20/23 12:27 Consult to General Surgery Routine Consulting Provider: Caleb Bateman Reason for consultation: Trach Has provider been notified: Yes 10/23/23 11:53 Consult to Wound Care Routine Reason for consultation: New Blister to coccyx DS: Transfer Hospital Acceptance Reason for Transfer: Ventilator weaning Name of Facility: [place] DS: Diagnosis Discharge Diagnosis (1) CKD (chronic kidney disease): Status: Acute (2) Critical illness myopathy: Status: Acute (3) Status post tracheostomy: Status: Acute (4) Acute on chronic renal insufficiency: Status: Acute (5) HIV (human immunodeficiency virus infection): Status: Acute (6) Acute hypoxic respiratory failure: Status: Acute (7) Hepatitis C: Status: Acute (8) COPD (chronic obstructive pulmonary disease): Status: Acute DS: Summary Hospital Course Hospital Course: 62-year-old gentleman with underlying HIV on HAART, hep C, COPD admitted on 10/02/2023 with acute hypoxic respiratory failure secondary to influenza with superimposed bacterial superinfection requiring intubation, pressor, and ventilatory support. Cultures are negative to date. Shock component has resolved. Now with abdominal distention secondary to ileus versus SBO, evaluated by general surgeon and deemed to underlying ileus. Extubated 10/13/2023. On 10/14/2023 with an aspiration event resulting in refractory hypoxia requiring emergent intubation and ventilatory support. Post tracheostomy and gastrostomy on 10/21/2023. Now with significant critical illness myopathy. 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 Patient continues with slow ventilator weaning and improvement in underlying strength with physical therapy. Status at Discharge Functional status at discharge: bed bound Overall status at discharge: patient is not back to baseline Time Attestation Total time managing care of this patient today: 60 mintues. Discharge Coordination Time (in mins): 60 minutes Quality: Safe Use of Opioids Does Pt have an Active Cancer Diagnosis on the Problem List?: No Quality: Stroke Does the patient have a stroke diagnosis?: No Physical Exam Vital Signs: Vital Signs: Last Vital Signs Temp 98.7 F 11/23/23 03:00 Pulse 97 11/23/23 09:00 Resp 18 11/23/23 09:00 BP 125/85 11/23/23 09:00 Pulse Ox 97 11/23/23 09:00 O2 Del Method Mechanical Ventil ation 11/23/23 09:00 O2 Flow Rate 40 11/22/23 03:00 FiO2 35 11/23/23 09:00 BMI result Body Mass Index 22.5 Const: General: no acute distress, alert and awake Eyes: Sclerae: sclerae normal EOM: EOMs intact bilaterally Neck: Neck: Yes no lymphadenopathy, Yes trachea midline, Yes supple and Yes tracheostomy present (On vent) Resp: Effort & Inspection: normal respiratory effort and no respiratory distress Auscultation: clear to auscultation bilaterally Cardio: Rate: regular rate Rhythm: regular rhythm Heart sounds: no gallops, no murmurs and no rubs GI: Inspection: Yes G-tube present Palpation (GI): Soft to palpation and Other GI palpation findings present ( Nontender) Auscultation: normal bowel sounds Extrem: General: Yes no pedal edema, No clubbing and No cyanosis DS: Data Data Completed and Pending Labs on day of discharge: Laboratory Results - last 24 hr 11/21/23 11/21/23 11/21/23 06:07 06:07 06:07 WBC RBC Hgb Hct MCV MCH MCHC RDW Plt Count MPV Immature Gran % (Auto) Neut % (Auto) Lymph % (Auto) [place] % (Auto) Eos % (Auto) Baso % (Auto) Lymph # (Auto) [place] # (Auto) Eos # (Auto) Baso # (Auto) Abs Immat Gran (auto) Absolute Neuts (auto) Absolute Nucleated RBC Nucleated RBC % (auto) VBG pH VBG pCO2 VBG pO2 VBG HCO3 VBG O2 Saturation VBG Base Excess Sodium Potassium Chloride Carbon Dioxide Anion Gap BUN Creatinine Estim Creat Clear Calc Estimated GFR POC Glucose Random Glucose Calcium Phosphorus Magnesium Albumin Blood Type O Positive Antibody Screen POSITIVE Antibody Identification Anti-E Anti-K Anti-M JENNIFER, Polyspecific POSITIVE A Positive JENNIFER Work-up IgG=Pos Q3v=Wjl A Crossmatch ([facility]) See Detail Blood Bank Comment Technical 11/22/23 11/22/23 11/22/23 11:31 17:28 22:47 WBC RBC Hgb Hct MCV MCH MCHC RDW Plt Count MPV Immature Gran % (Auto) Neut % (Auto) Lymph % (Auto) [place] % (Auto) Eos % (Auto) Baso % (Auto) Lymph # (Auto) [place] # (Auto) Eos # (Auto) Baso # (Auto) Abs Immat Gran (auto) Absolute Neuts (auto) Absolute Nucleated RBC Nucleated RBC % (auto) VBG pH VBG pCO2 VBG pO2 VBG HCO3 VBG O2 Saturation VBG Base Excess Sodium Potassium Chloride Carbon Dioxide Anion Gap BUN Creatinine Estim Creat Clear Calc Estimated GFR POC Glucose 127 H 111 134 H Random Glucose Calcium Phosphorus Magnesium Albumin Blood Type Antibody Screen Antibody Identification JENNIFER, Polyspecific Positive JENNIFER Work-up Crossmatch ([facility]) Blood Bank Comment 11/22/23 11/23/23 11/23/23 23:51 04:26 04:37 WBC 3.7 L RBC 2.61 L Hgb 7.4 L Hct 22.5 L MCV 86.2 MCH 28.4 MCHC 32.9 RDW 18.5 H Plt Count 121 L MPV 11.0 Immature Gran % (Auto) 0.5 H Neut % (Auto) 58.6 Lymph % (Auto) 23.7 [place] % (Auto) 9.1 Eos % (Auto) 7.8 H Baso % (Auto) 0.3 Lymph # (Auto) 0.9 L [place] # (Auto) 0.4 Eos # (Auto) 0.3 Baso # (Auto) 0.0 Abs Immat Gran (auto) 0.02 Absolute Neuts (auto) 2.3 Absolute Nucleated RBC 0.000 Nucleated RBC % (auto) 0.0 VBG pH 7.34 VBG pCO2 48 VBG pO2 42 VBG HCO3 27 H VBG O2 Saturation 71.0 VBG Base Excess 1.1 Sodium 140 Potassium 3.5 Chloride 105 Carbon Dioxide 24 Anion Gap 15 BUN 79 H Creatinine 3.53 H Estim Creat Clear Calc 20.9 Estimated GFR 18 POC Glucose 97 Random Glucose 156 H Calcium 9.1 Phosphorus 3.9 Magnesium 2.4 Albumin 4.1 Blood Type Antibody Screen Antibody Identification JENNIFER, Polyspecific Positive JENNIFER Work-up Crossmatch ([facility]) Blood Bank Comment Discharge Plan Discharge Patient Disposition: Xfer LT Discharge Diagnosis: Chronic respiratory failure tracheostomy dependent HIV Referrals: Loreta Bhagat MD [Primary Care Provider] - 1 Week Discharge Medications: New lidocaine [Lidocaine Pain Relief] 4 % Adhesive Patch,Medicated 2 patch transdermal DAILY 30 Days Qty: 60 0RF Protocol: Apply to: Apply to: Bottom nystatin 100,000 unit/gram Powder 1 appl topical BID Qty: 60 0RF Protocol: Apply to: Apply to: to affected areas quetiapine 25 mg Tablet 25 mg PO BID Qty: 60 0RF albuterol sulfate 2.5 mg /3 mL (0.083 %) Solution For Nebulization 2.5 mg inhalation Q4H PRN (Reason: Shortness Of Breath/Wheezing) Qty: 180 0RF dextrose [Glutose-15] 40 % Gel 15 g PO Q15M PRN (Reason: Per Hypoglycemia Standing Ord.) Qty: 300 0RF Protocol: Glucose Gel Hypoglycemia Standing Order Protocol Text: For patients able to take PO (patient cooperative and able to swallow). Give Glucose Gel 15 gm PO for Blood Glucose (BG) < 70. Repeat BG every 15 min until BG > 70 x 3, if BG still < 70 and/or patient symptomatic repeat glucose gel or rapid acting carbohydrate. Notify MD if BG does not improve with treatment. bacitracin 500 unit/gram Ointment 1 appl topical BID Qty: 14 0RF Protocol: Apply to: Apply to: trach site melatonin 3 mg Tablet 6 mg PO BEDTIME PRN (Reason: sleep) Qty: 30 0RF lamotrigine 25 mg Tablet 50 mg PO BID Qty: 60 0RF tobramycin sulfate 40 mg/mL Solution 300 mg inhalation Q12H Qty: 50 0RF insulin lispro [Admelog U-100 Insulin lispro] 100 unit/mL Solution See Protocol subcut Q6H Qty: 10 0RF Protocol: Insulin Correction Scale Less than or equal to 110 ---- Give (units): 0 111 to 150 Give (units): 0 151 to 200 Give (units): 2 201 to 250 Give (units): 4 251 to 300 Give (units): 6 301 to 350 Give (units): 8 Greater than 350 Give (units): 10 Call MD if Blood Glucose > : 350 heparin (porcine) 5,000 unit/mL Solution 5,000 unit subcut Q8H Qty: 25 0RF oxycodone 5 mg Tablet 5 mg PO Q4H PRN (Reason: Pain, Severe (Pain Scale 7-10)) Qty: 30 0RF Rx Instructions: Partial Fill upon patient request. metoprolol tartrate 25 mg Tablet 25 mg PO Q8H Qty: 90 0RF Protocol: Hold for SBP/HR < HOLD for SBP < : 90 HOLD for HR < : 60 chlorhexidine gluconate 0.12 % Mouthwash 15 ml buccal TID Qty: 473 0RF acetaminophen 650 mg/20.3 mL Solution 975 mg PO Q6H PRN (Reason: Pain, Moderate(Pain Scale 4-6)) 30 Days Qty: 609 0RF Continued cholecalciferol (vitamin D3) 1,250 mcg (50,000 unit) capsule 1,250 mcg PO QWEEK Biktarvy 50-200-25 mg tablet 1 tab PO DAILY Farxiga 10 mg tablet 10 mg PO DAILY atorvastatin 40 mg tablet 40 mg PO BEDTIME Discontinued budesonide-formoterol 160-4.5 mcg/actuation HFA aerosol inhaler 2 puff PO BID Qty: 10.2 11RF Spiriva Respimat 2.5 mcg/actuation mist 2 inh PO DAILY Qty: 4 11RF albuterol sulfate 90 mcg/actuation HFA aerosol inhaler 2 puff inhalation Q4-6H PRN (Reason: shortness of breath or wheezing) Qty: 6.7 1RF montelukast 10 mg tablet 10 mg PO BEDTIME (DME) nebulizers Misc See Rx Instructions .ROUTE Rx Instructions: As directed furosemide 40 mg tablet 40 mg PO DAILY spironolactone 25 mg tablet 12.5 mg PO DAILY Entresto 49-51 mg tablet 1 tab PO BID Discharge Orders: Discharge Order (Routine); Ordered 11/23/23 Ordered By: Devan Allen Activity on Discharge: Rest with bed elevated Stand Alone Forms: Patient Portal Discharge page Print Language: Syriac Care Plan Goals: Continue ventilator weaning and physical therapy. Health Concerns: Remains ventilator dependent. Plan of Treatment: Continue ventilator weaning and physical therapy. Assessment: Patient with slow progress with ventilator weaning and improvement in underlying critical care myopathy with physical therapy.
[2023-11-23] MEDS: fentaNYL citrate/PF 100 MCG/2 ML VIAL 50 MCG IVPUSH (11:22)
[2023-11-23 12:27] LABS: Glucose, Whole Blood 131 mg/dL (60-115)
--- NOTE | 2023-11-23 13:21 | P.PNNP_ITS ---
Subjective Subjective Date of Service: 11/23/23 Interval history: Events noted Physical Exam 2 Vital Signs: Vital Signs: Last Vital Signs Temp 98.7 F 11/23/23 08:00 Pulse 100 11/23/23 13:00 Resp 23 H 11/23/23 13:00 BP 141/97 H 11/23/23 13:00 Pulse Ox 98 11/23/23 13:00 O2 Del Method Mechanical Ventil ation 11/23/23 13:00 O2 Flow Rate 40 11/22/23 03:00 FiO2 35 11/23/23 13:00 BMI result Body Mass Index 22.5 Const: General: no acute distress and ill appearing HEENT: Head: Yes normocephalic Mouth: Normal oral and palatal mucosa present Neck: Neck: Yes supple Resp: Auscultation: clear to auscultation bilaterally and diminished lung sounds Cardio: Jugular venous distension: no JVD Palpation: no palpable S3 R ate: regular rate Heart sounds: no rubs GI: Palpation (GI): Soft to palpation Auscultation: normal bowel sounds Neuro: Motor exam (neuro): no asterixis Objective Data Labs 11/23/23 04:26 11/23/23 04:26 Labs: Laboratory Results - last 24 hr 11/21/23 11/21/23 11/21/23 06:07 06:07 06:07 WBC RBC Hgb Hct MCV MCH MCHC RDW Plt Count MPV Immature Gran % (Auto) Neut % (Auto) Lymph % (Auto) [place] % (Auto) Eos % (Auto) Baso % (Auto) Lymph # (Auto) [place] # (Auto) Eos # (Auto) Baso # (Auto) Abs Immat Gran (auto) Absolute Neuts (auto) Absolute Nucleated RBC Nucleated RBC % (auto) VBG pH VBG pCO2 VBG pO2 VBG HCO3 VBG O2 Saturation VBG Base Excess Sodium Potassium Chloride Carbon Dioxide Anion Gap BUN Creatinine Estim Creat Clear Calc Estimated GFR POC Glucose Random Glucose Calcium Phosphorus Magnesium Albumin Blood Type O Positive Antibody Screen POSITIVE Antibody Identification Anti-E Anti-K Anti-M JENNIFER, Polyspecific POSITIVE A Positive JENNIFER Work-up IgG=Pos H4p=Kdt A Crossmatch ([facility]) See Detail Blood Bank Comment Technical 11/22/23 11/22/23 11/22/23 17:28 22:47 23:51 WBC RBC Hgb Hct MCV MCH MCHC RDW Plt Count MPV Immature Gran % (Auto) Neut % (Auto) Lymph % (Auto) [place] % (Auto) Eos % (Auto) Baso % (Auto) Lymph # (Auto) [place] # (Auto) Eos # (Auto) Baso # (Auto) Abs Immat Gran (auto) Absolute Neuts (auto) Absolute Nucleated RBC Nucleated RBC % (auto) VBG pH VBG pCO2 VBG pO2 VBG HCO3 VBG O2 Saturation VBG Base Excess Sodium Potassium Chloride Carbon Dioxide Anion Gap BUN Creatinine Estim Creat Clear Calc Estimated GFR POC Glucose 111 134 H 97 Random Glucose Calcium Phosphorus Magnesium Albumin Blood Type Antibody Screen Antibody Identification JENNIFER, Polyspecific Positive JENNIFER Work-up Crossmatch ([facility]) Blood Bank Comment 11/23/23 11/23/23 11/23/23 04:26 04:37 12:20 WBC 3.7 L RBC 2.61 L Hgb 7.4 L Hct 22.5 L MCV 86.2 MCH 28.4 MCHC 32.9 RDW 18.5 H Plt Count 121 L MPV 11.0 Immature Gran % (Auto) 0.5 H Neut % (Auto) 58.6 Lymph % (Auto) 23.7 [place] % (Auto) 9.1 Eos % (Auto) 7.8 H Baso % (Auto) 0.3 Lymph # (Auto) 0.9 L [place] # (Auto) 0.4 Eos # (Auto) 0.3 Baso # (Auto) 0.0 Abs Immat Gran (auto) 0.02 Absolute Neuts (auto) 2.3 Absolute Nucleated RBC 0.000 Nucleated RBC % (auto) 0.0 VBG pH 7.34 VBG pCO2 48 VBG pO2 42 VBG HCO3 27 H VBG O2 Saturation 71.0 VBG Base Excess 1.1 Sodium 140 Potassium 3.5 Chloride 105 Carbon Dioxide 24 Anion Gap 15 BUN 79 H Creatinine 3.53 H Estim Creat Clear Calc 20.9 Estimated GFR 18 POC Glucose 131 H Random Glucose 156 H Calcium 9.1 Phosphorus 3.9 Magnesium 2.4 Albumin 4.1 Blood Type Antibody Screen Antibody Identification JENNIFER, Polyspecific Positive JENNIFER Work-up Crossmatch ([facility]) Blood Bank Comment Microbiology Microbiology Results: Microbiology 11/14/23 02:10 Blood - Venous Blood Culture - Final No growth after 5 days. 11/14/23 02:09 Blood - Venous Blood Culture - Final No growth after 5 days. 11/07/23 21:36 Sputum - Suctioned Gram Stain - Final 11/07/23 21:36 Sputum - Suctioned Sputum Culture - Final No growth. 10/02/23 06:40 Sputum - Suctioned Direct Acid Fast Bacilli Smear - Final 10/02/23 03:11 Blood - Central Line Blood Culture - Final No growth after 5 days. 10/02/23 03:11 Blood - Central Line Blood Culture - Final Coag negative Staphylococcus 10/02/23 06:40 Sputum - Suctioned Gram Stain - Final 10/02/23 06:40 Sputum - Suctioned Sputum Culture - Final 10/02/23 06:40 Urine Catheterized - Miguel Catheter Urine Culture - Final No growth. Procedures Date of Service Date of Service: 11/23/23 Assessment & Plan Assessment and plan (1) AMBER (acute kidney injury): Status: Acute (2) Hyperkalemia: Status: Acute (3) CKD (chronic kidney disease): Status: Acute Plan 62-year-old man with HIV has acute kidney injury superimposed on chronic kidney disease with hyperkalemia and mild metabolic acidosis. DDX acute kidney injury would include acute tubular necrosis from various episodes of hypotension as well as underlying infectious process. 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 Urine - No eosinophils Urine Pro: Cr > 2.0 Creatinine improved and now around 3.5 Recommendations Watch urine output . No absolute indication for dialysis today Watch for hypernatremia Shall follow closely . Time Spent With Patient Time: Total time managing care of this patient today ____ minutes. Progress Note: Quality Stroke Does the patient have a stroke diagnosis?: No
[2023-11-23] MEDS: Metoprolol Tartrate 5 MG/5 ML VIAL IVPUSH (15:10)
[2023-11-23] MEDS: Bictegrav/Emtricit/Tenofov Ala TABLET 1 TAB PO (16:45)
[2023-11-23 17:39] LABS: Glucose, Whole Blood 128 mg/dL (60-115)
[2023-11-23] MEDS: Melatonin 3 MG TABLET 6 MG PO (19:52)
[2023-11-24] VITALS (34 sets, daily range): BP systolic 86–174; BP diastolic 56–117; PULSE 91–112; RESP 12–28; TEMP 34.9–37.1; O2SAT 92–100; BMI 22.6
[2023-11-24] MEDS: LORazepam 1 MG TABLET PO ×2 (00:07→23:39)
[2023-11-24] MEDS: 0.9 % Sodium Chloride Flush 10 ML SYRINGE IVFLUSH ×4 (00:07→23:40)
[2023-11-24 00:09] LABS: Glucose, Whole Blood 110 mg/dL (60-115)
[2023-11-24] MEDS: Metoprolol Tartrate 25 MG TABLET PO ×3 (03:14→17:03)
[2023-11-24] MEDS: Acetaminophen Oral Liquid 650 MG/20.3 ML SOLUTION 975 MG PO ×2 (04:16→13:34)
[2023-11-24] MEDS: hydrOXYzine HCL 25 MG TABLET PO ×3 (04:25→19:50)
[2023-11-24] MEDS: Albuterol Sulfate (0.083%) 2.5 MG/3 ML VIAL.NEB INHALE (04:35)
[2023-11-24 05:38] LABS: VBG Base Excess -0.8 mmol/L; VBG HCO3 23 mmol/L (22-26); VBG pCO2 37 mmHg; VBG pO2 40 mmHg
[2023-11-24 05:48] LABS: Basophils Percent Auto 0.2 % (0-2); Eosinophils Absolute Auto 0.3 X10*3/uL (0.0-0.4); Eosinophils Percent Auto 5.4 % (0-4); Hematocrit 23.5 % (42.0-52.0); Hemoglobin 7.6 g/dl (14.0-18.0); Imm Gran Abs Auto 0.03 X10*3/uL (0.00-0.03); Imm Gran Pct Auto 0.6 % (0.0-0.4); MANUAL DIFF FLAG NO; Mean Corpuscular HGB Conc 32.3 g/dl (31.0-36.0); Mean Corpuscular Hemoglobin 27.3 pg (27.0-33.0); Mean Corpuscular Volume 84.5 fL (80.0-98.0); Mean Platelet Volume 10.7 fL (9.4-12.4); Monocytes Absolute Auto 0.6 X10*3/uL (0.1-1.2); Monocytes Percent Auto 11.4 % (2-11); Neutrophils Percent Auto 62.4 % (45-73); Platelet Count 140 X10*3/uL (160-400); Red Blood Count 2.78 X10*6/uL (4.60-5.80); Red Cell Distribution Width 18.6 % (11.0-16.0); White Blood Count 4.8 X10*3/uL (4.8-10.8)
[2023-11-24 05:55] LABS: Venous Blood Gas Refer to POC result
[2023-11-24 05:56] LABS: Glucose, Whole Blood 152 mg/dL (60-115)
[2023-11-24 06:09] LABS: Albumin Level 3.6 g/dL (3.5-5.0); Anion Gap 16 (12-20); Blood Urea Nitrogen 80 mg/dL (9-16); Carbon Dioxide 20 mmol/L (22-29); Chloride 106 mmol/L (96-108); Creatinine Clr Calc Pharmacy 20.1; Estimated Glomerular Filt Rate 17; Glucose Random 163 mg/dL (60-115); Magnesium 2.5 mg/dL (1.6-2.6); Phosphorus 3.4 mg/dL (2.7-4.5); Potassium 3.6 mmol/L (3.3-5.1); Sodium 138 mmol/L (135-145)
[2023-11-24] MEDS: Omeprazole/Na Bicarb Oral Susp 20 MG/10 ML UD Cup 40 MG PO (06:32)
[2023-11-24] MEDS: Tobramycin Sulfate 80 MG/2 ML VIAL 300 MG INHALE ×2 (07:41→20:48)
--- NOTE | 2023-11-24 07:56 | ECG_ITS ---
Test Reason : qtc monitoring Blood Pressure : / mmHG Vent. Rate : 101 BPM Atrial Rate : 101 BPM P-R Int : 210 ms QRS Dur : 084 ms QT Int : 366 ms P-R-T Axes : 084 053 068 degrees QTc Int : 474 ms Sinus tachycardia with 1st degree A-V block Anteroseptal infarct (cited on or before 12-JAN-2014) Abnormal ECG When compared with ECG of 17-NOV-2023 08:55, No significant change was found Referred By: Jesenia Malloy Electronically Signed By:ARNIE PADGETT
[2023-11-24] MEDS: lamoTRIgine 25 MG TABLET 50 MG PO ×2 (08:41→19:49)
[2023-11-24] MEDS: Potassium Chloride Packet 20 MEQ PACKET 40 MEQ G-TUBE (08:41)
--- NOTE | 2023-11-24 08:41 | MHC.CM.PN ---
CM still awaiting communication from Hang saavedra, no response in [facility]. This CM called keri Sparrow and left a voicemail, also called Hang Vaughn to let them know we have been unable to reach Kyara. Hang Vaughn gave this CM another number for an Mirela Mclean in admissions, at [phone], this CM called and left a voicemail for her.
[2023-11-24] MEDS: Chlorhexidine Gluc Oral Rinse 15 ML MOUTHWASH BUCCAL ×3 (08:42→19:51)
[2023-11-24] MEDS: QUEtiapine Fumarate 25 MG TABLET PO ×4 (08:42→23:39)
[2023-11-24] MEDS: Lidocaine 4 % Patch ADH..PATCH 2 PATCH TRANSDERMA (08:42)
[2023-11-24] MEDS: Nystatin Powder 15 GM BOTTLE 1 APPL TOPICAL ×2 (08:43→19:45)
[2023-11-24] MEDS: Bacitracin Oint 14 GM TUBE 1 APPL TOPICAL ×2 (08:43→19:45)
[2023-11-24] MEDS: Bictegrav/Emtricit/Tenofov Ala TABLET 1 TAB PO (08:43)
--- NOTE | 2023-11-24 09:24 | MHC.CLN ---
F/U PT CONTINUES TOLERATING TF WITH LOW RESIDUALS PER NSG DISCUSSED AT ROUNDS WITH PT RECEIVES TF NEPRO AT MAX GOAL RATE 45ML/HR WITH 240ML Q 6 HR PROVIDES 1944KCALS (30KCALS/KG), 87G PROTEIN (1.3G/KG), 1745ML TOTAL WATER FROM FORMULA AND FLUSHES (26ML/KG) CONTINUE TO MONITOR TOLERANCE, RESIDUALS, AND LYTES
--- NOTE | 2023-11-24 09:33 | PM.CCPN ---
Subjective Subjective Date of Service: 11/24/23 Interval History: 62-year-old gentleman with underlying HIV on HAART, hep C, COPD admitted on 10/02/2023 with acute hypoxic respiratory failure secondary to influenza with superimposed bacterial superinfection requiring intubation, pressor, and ventilatory support. Cultures are negative to date. Shock component has resolved. Now with abdominal distention secondary to ileus versus SBO, evaluated by general surgeon and deemed to underlying ileus. Extubated 10/13/2023. On 10/14/2023 with an aspiration event resulting in refractory hypoxia requiring emergent intubation and ventilatory support. Post tracheostomy and gastrostomy on 10/21/2023. Now with significant critical illness myopathy. 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 No events overnight. Tracheostomy exchanged on 11/23/2023. Critical Care Time (minutes): 60 Physical Exam Vital Signs: Vital Signs: Last Vital Signs Temp 98.5 F 11/24/23 08:00 Pulse 104 H 11/24/23 08:41 Resp 18 11/24/23 08:00 BP 155/109 H 11/24/23 08:41 Pulse Ox 95 11/24/23 08:00 O2 Del Method Mechanical Ventil ation 11/24/23 08:00 O2 Flow Rate 40 11/22/23 03:00 FiO2 30 11/24/23 08:00 BMI result Body Mass Index 22.6 Const: General: no acute distress, alert and awake Eyes: Sclerae: sclerae normal EOM: EOMs intact bilaterally Neck: Neck: Yes no lymphadenopathy, Yes trachea midline, Yes supple and Yes tracheostomy present Resp: Effort & Inspection: normal respiratory effort and no respiratory distress Auscultation: clear to auscultation bilaterally Cardio: Rate: regular rate Rhythm: regular rhythm Heart sounds: no gallops, no murmurs and no rubs GI: Inspection: Yes G-tube present Palpation (GI): Soft to palpation and Other GI palpation findings present ( Nontender) Auscultation: normal bowel sounds Extrem: General: Yes no pedal edema, No clubbing and No cyanosis Objective Data Labs 11/24/23 05:30 11/24/23 05:30 Labs: Laboratory Results - last 24 hr 11/23/23 11/23/23 11/23/23 12:20 17:35 23:42 WBC RBC Hgb Hct MCV MCH MCHC RDW Plt Count MPV Immature Gran % (Auto) Neut % (Auto) Lymph % (Auto) [place] % (Auto) Eos % (Auto) Baso % (Auto) Lymph # (Auto) [place] # (Auto) Eos # (Auto) Baso # (Auto) Abs Immat Gran (auto) Absolute Neuts (auto) Absolute Nucleated RBC Nucleated RBC % (auto) VBG pH VBG pCO2 VBG pO2 VBG HCO3 VBG O2 Saturation VBG Base Excess Sodium Potassium Chloride Carbon Dioxide Anion Gap BUN Creatinine Estim Creat Clear Calc Estimated GFR POC Glucose 131 H 128 H 110 Random Glucose Calcium Phosphorus Magnesium Albumin 11/24/23 11/24/23 05:30 05:50 WBC 4.8 RBC 2.78 L Hgb 7.6 L Hct 23.5 L MCV 84.5 MCH 27.3 MCHC 32.3 RDW 18.6 H Plt Count 140 L MPV 10.7 Immature Gran % (Auto) 0.6 H Neut % (Auto) 62.4 Lymph % (Auto) 20.0 [place] % (Auto) 11.4 H Eos % (Auto) 5.4 H Baso % (Auto) 0.2 Lymph # (Auto) 1.0 L [place] # (Auto) 0.6 Eos # (Auto) 0.3 Baso # (Auto) 0.0 Abs Immat Gran (auto) 0.03 Absolute Neuts (auto) 3.0 Absolute Nucleated RBC 0.000 Nucleated RBC % (auto) 0.0 VBG pH 7.40 VBG pCO2 37 VBG pO2 40 VBG HCO3 23 VBG O2 Saturation 73.0 VBG Base Excess -0.8 Sodium 138 Potassium 3.6 Chloride 106 Carbon Dioxide 20 L Anion Gap 16 BUN 80 H Creatinine 3.66 H Estim Creat Clear Calc 20.1 Estimated GFR 17 POC Glucose 152 H Random Glucose 163 H Calcium 9.0 Phosphorus 3.4 Magnesium 2.5 Albumin 3.6 Microbiology Microbiology Results: Microbiology 11/14/23 02:10 Blood - Venous Blood Culture - Final No growth after 5 days. 11/14/23 02:09 Blood - Venous Blood Culture - Final No growth after 5 days. 11/07/23 21:36 Sputum - Suctioned Gram Stain - Final 11/07/23 21:36 Sputum - Suctioned Sputum Culture - Final No growth. 10/02/23 06:40 Sputum - Suctioned Direct Acid Fast Bacilli Smear - Final 10/02/23 03:11 Blood - Central Line Blood Culture - Final No growth after 5 days. 10/02/23 03:11 Blood - Central Line Blood Culture - Final Coag negative Staphylococcus 10/02/23 06:40 Sputum - Suctioned Gram Stain - Final 10/02/23 06:40 Sputum - Suctioned Sputum Culture - Final 10/02/23 06:40 Urine Catheterized - Miguel Catheter Urine Culture - Final No growth. Progress Note: A&P Assessment and plan (1) Acute on chronic renal insufficiency: Status: Acute (2) Status post tracheostomy: Status: Acute (3) Critical illness myopathy: Status: Acute (4) HIV (human immunodeficiency virus infection): Status: Acute (5) Hepatitis C: Status: Acute (6) COPD (chronic obstructive pulmonary disease): Status: Acute Plan Assessment: 62-year-old gentleman with underlying HIV on HAART, hep C admitted with acute hypoxic respiratory failure secondary to bacterial superinfection of underlying influenza now requiring ventilatory support Plan: Neuro: Anxiety component now controlled on Seroquel/Lamictal. Cardiac: No acute issues. Pulmonary: Acute hypoxic respiratory failure secondary to bacterial superinfection of underlying influenza, improved and extubated on 10/13/2023. However with development of recurrent aspirations requiring re-intubation on 10/14/2023. Now status post tracheostomy/gastrostomy on 10/21/2023. Continue to titrate off ventilatory support as tolerated. Renal: Kidney function stabilized with creatinine around 3 and BUN around 80 likely secondary to HIV nephropathy. Non oliguric. Nephrology service care appreciated. Endo: No acute issues. GI: No acute issues. ID: No acute issues. Underlying HIV on Biktarvy. Heme/Onc: No acute issues. Psych: No acute issues. Miscellaneous: Critical illness myopathy, improving, continue with PT. Prophylaxis: Heparin Diet: Tube feeds Critical care time spent: 60 minutes Quality Stroke Does the patient have a stroke diagnosis?: No VTE Prior VTE?: No VTE Risk Level:: Medical - moderate - high VTE Device Contraindication: N/A - Device Ordered VTE Drug Contraindication: Treatment Not Tolerated
[2023-11-24] MEDS: oxyCODONE HCl Immed Release 5 MG TABLET PO ×3 (10:03→23:38)
--- NOTE | 2023-11-24 10:29 | MHC.CM.PN ---
Addendum entered by Helena Zaldivar 11/24/23 11:12: Pts son Earl Sinha was called and notified of [facility] denying pt. Original Note: This CM called and spoke with senior contracts administrator AZEB at [facility], who states they are unable to accept the pt to their facility. [facility] is denying the pt due to his insurance not being able to adequately reimburse them.
[2023-11-24 12:13] LABS: Glucose, Whole Blood 151 mg/dL (60-115)
[2023-11-24] MEDS: Insulin Lispro 100 UNIT/ML 3 ML VIAL SUBCUT (13:35)
[2023-11-24 17:05] LABS: Glucose, Whole Blood 110 mg/dL (60-115)
[2023-11-24] MEDS: Bumetanide 1 MG/4 ML VIAL IVPUSH (19:43)
[2023-11-24] MEDS: Melatonin 3 MG TABLET 6 MG PO (19:50)
--- NOTE | 2023-11-24 20:39 | P.PNNP_ITS ---
Subjective Subjective Date of Service: 11/24/23 Interval history: Renal function stabilized with creatinine around 3 and BUN around 80; Has underlying HIV nephropathy.No events overnight. Tracheostomy exchanged on 11/23/2023. Physical Exam 2 Vital Signs: Vital Signs: Last Vital Signs Temp 98.6 F 11/24/23 16:00 Pulse 102 H 11/24/23 20:00 Resp 23 H 11/24/23 20:00 BP 150/99 H 11/24/23 20:00 Pulse Ox 98 11/24/23 20:00 O2 Del Method Mechanical Ventil ation 11/24/23 20:00 O2 Flow Rate 40 11/22/23 03:00 FiO2 40 11/24/23 20:00 BMI result Body Mass Index 22.6 Const: General: no acute distress Resp: Auscultation: diminished lung sounds Cardio: Rate: regular rate GI: Other: G tube Neuro: Other: On Vent Objective Data Labs 11/24/23 05:30 11/24/23 05:30 Labs: Laboratory Results - last 24 hr 11/23/23 11/24/23 11/24/23 23:42 05:30 05:50 WBC 4.8 RBC 2.78 L Hgb 7.6 L Hct 23.5 L MCV 84.5 MCH 27.3 MCHC 32.3 RDW 18.6 H Plt Count 140 L MPV 10.7 Immature Gran % (Auto) 0.6 H Neut % (Auto) 62.4 Lymph % (Auto) 20.0 [place] % (Auto) 11.4 H Eos % (Auto) 5.4 H Baso % (Auto) 0.2 Lymph # (Auto) 1.0 L [place] # (Auto) 0.6 Eos # (Auto) 0.3 Baso # (Auto) 0.0 Abs Immat Gran (auto) 0.03 Absolute Neuts (auto) 3.0 Absolute Nucleated RBC 0.000 Nucleated RBC % (auto) 0.0 VBG pH 7.40 VBG pCO2 37 VBG pO2 40 VBG HCO3 23 VBG O2 Saturation 73.0 VBG Base Excess -0.8 Sodium 138 Potassium 3.6 Chloride 106 Carbon Dioxide 20 L Anion Gap 16 BUN 80 H Creatinine 3.66 H Estim Creat Clear Calc 20.1 Estimated GFR 17 POC Glucose 110 152 H Random Glucose 163 H Calcium 9.0 Phosphorus 3.4 Magnesium 2.5 Albumin 3.6 11/24/23 11/24/23 12:10 17:01 WBC RBC Hgb Hct MCV MCH MCHC RDW Plt Count MPV Immature Gran % (Auto) Neut % (Auto) Lymph % (Auto) [place] % (Auto) Eos % (Auto) Baso % (Auto) Lymph # (Auto) [place] # (Auto) Eos # (Auto) Baso # (Auto) Abs Immat Gran (auto) Absolute Neuts (auto) Absolute Nucleated RBC Nucleated RBC % (auto) VBG pH VBG pCO2 VBG pO2 VBG HCO3 VBG O2 Saturation VBG Base Excess Sodium Potassium Chloride Carbon Dioxide Anion Gap BUN Creatinine Estim Creat Clear Calc Estimated GFR POC Glucose 151 H 110 Random Glucose Calcium Phosphorus Magnesium Albumin Microbiology Microbiology Results: Microbiology 11/14/23 02:10 Blood - Venous Blood Culture - Final No growth after 5 days. 11/14/23 02:09 Blood - Venous Blood Culture - Final No growth after 5 days. 11/07/23 21:36 Sputum - Suctioned Gram Stain - Final 11/07/23 21:36 Sputum - Suctioned Sputum Culture - Final No growth. 10/02/23 06:40 Sputum - Suctioned Direct Acid Fast Bacilli Smear - Final 10/02/23 03:11 Blood - Central Line Blood Culture - Final No growth after 5 days. 10/02/23 03:11 Blood - Central Line Blood Culture - Final Coag negative Staphylococcus 10/02/23 06:40 Sputum - Suctioned Gram Stain - Final 10/02/23 06:40 Sputum - Suctioned Sputum Culture - Final 10/02/23 06:40 Urine Catheterized - Miguel Catheter Urine Culture - Final No growth. Procedures Date of Service Date of Service: 11/24/23 Assessment & Plan Assessment and plan (1) AMBER (acute kidney injury): Status: Acute Plan Acute Kidney Injury due to tubular injury UO good; No need for HD now Renal function improved/stable Likely has underlying HIVAN C/W rest of current supportive care Labs AM; Shall closely follow up Progress Note: Quality Stroke Does the patient have a stroke diagnosis?: No
[2023-11-24 23:43] LABS: Glucose, Whole Blood 148 mg/dL (60-115)
[2023-11-25] VITALS (35 sets, daily range): BP systolic 86–171; BP diastolic 56–115; PULSE 91–126; RESP 15–27; TEMP 34.8–37.1; O2SAT 93–100; BMI 23.3
[2023-11-25] MEDS: Metoprolol Tartrate 25 MG TABLET PO ×3 (01:33→17:58)
[2023-11-25] MEDS: hydrOXYzine HCL 25 MG TABLET PO ×2 (03:22→14:42)
[2023-11-25] MEDS: Acetaminophen Oral Liquid 650 MG/20.3 ML SOLUTION 975 MG PO ×2 (03:22→19:26)
[2023-11-25 05:36] LABS: VBG Base Excess 0.1 mmol/L; VBG HCO3 25 mmol/L (22-26); VBG pCO2 44 mmHg; VBG pH 7.36 (7.32-7.43); VBG pO2 38 mmHg
[2023-11-25 05:41] LABS: MANUAL DIFF FLAG NO
[2023-11-25 05:43] LABS: Venous Blood Gas Refer to POC result
[2023-11-25 05:43] LABS: Basophils Percent Auto 0.2 % (0-2); Eosinophils Absolute Auto 0.3 X10*3/uL (0.0-0.4); Eosinophils Percent Auto 5.3 % (0-4); Hematocrit 22.5 % (42.0-52.0); Hemoglobin 7.2 g/dl (14.0-18.0); Imm Gran Abs Auto 0.02 X10*3/uL (0.00-0.03); Imm Gran Pct Auto 0.4 % (0.0-0.4); Lymphocytes Absolute Auto 0.9 X10*3/uL (1.2-4.9); Lymphocytes Percent Auto 18.6 % (20-40); Mean Corpuscular Hemoglobin 27.1 pg (27.0-33.0); Mean Corpuscular Volume 84.6 fL (80.0-98.0); Monocytes Absolute Auto 0.5 X10*3/uL (0.1-1.2); Monocytes Percent Auto 11.2 % (2-11); Neutrophils Percent Auto 64.3 % (45-73); Platelet Count 162 X10*3/uL (160-400); Red Blood Count 2.66 X10*6/uL (4.60-5.80); Red Cell Distribution Width 18.5 % (11.0-16.0); White Blood Count 4.7 X10*3/uL (4.8-10.8)
[2023-11-25] MEDS: oxyCODONE HCl Immed Release 5 MG TABLET PO ×2 (06:03→14:42)
[2023-11-25] MEDS: Omeprazole/Na Bicarb Oral Susp 20 MG/10 ML UD Cup 40 MG PO (06:03)
[2023-11-25 06:06] LABS: Albumin Level 3.4 g/dL (3.5-5.0); Anion Gap 14 (12-20); Blood Urea Nitrogen 89 mg/dL (9-16); Calcium 9.1 mg/dL (8.4-10.2); Carbon Dioxide 22 mmol/L (22-29); Chloride 107 mmol/L (96-108); Creatinine Clr Calc Pharmacy 20.7; Estimated Glomerular Filt Rate 17; Glucose Random 134 mg/dL (60-115); Magnesium 2.5 mg/dL (1.6-2.6); Phosphorus 3.3 mg/dL (2.7-4.5); Potassium 4.1 mmol/L (3.3-5.1); Sodium 139 mmol/L (135-145)
[2023-11-25] MEDS: QUEtiapine Fumarate 25 MG TABLET PO ×3 (07:55→20:26)
[2023-11-25] MEDS: lamoTRIgine 25 MG TABLET 50 MG PO ×2 (07:55→20:26)
[2023-11-25] MEDS: Albumin Human 25 % 100 ML IV ×2 (07:55→14:42)
[2023-11-25] MEDS: Chlorhexidine Gluc Oral Rinse 15 ML MOUTHWASH BUCCAL ×3 (07:55→20:28)
[2023-11-25] MEDS: Bictegrav/Emtricit/Tenofov Ala TABLET 1 TAB PO (07:55)
[2023-11-25] MEDS: Bacitracin Oint 14 GM TUBE 1 APPL TOPICAL ×2 (07:56→20:28)
[2023-11-25] MEDS: Nystatin Powder 15 GM BOTTLE 1 APPL TOPICAL ×2 (07:56→20:28)
[2023-11-25] MEDS: Lidocaine 4 % Patch ADH..PATCH 2 PATCH TRANSDERMA (07:57)
[2023-11-25] MEDS: 0.9 % Sodium Chloride Flush 10 ML SYRINGE IVFLUSH ×3 (07:57→20:32)
[2023-11-25] MEDS: Tobramycin Sulfate 80 MG/2 ML VIAL 300 MG INHALE ×2 (08:04→23:27)
--- NOTE | 2023-11-25 08:54 | P.PNCC_ITS ---
Subjective Subjective Date of Service: 11/25/23 Interval History: 62-year-old gentleman with underlying HIV on HAART, hep C, COPD admitted on 10/02/2023 with acute hypoxic respiratory failure secondary to influenza with superimposed bacterial superinfection requiring intubation, pressor, and ventilatory support. Cultures are negative to date. Shock component has resolved. Now with abdominal distention secondary to ileus versus SBO, evaluated by general surgeon and deemed to underlying ileus. Extubated 10/13/2023. On 10/14/2023 with an aspiration event resulting in refractory hypoxia requiring emergent intubation and ventilatory support. Post tracheostomy and gastrostomy on 10/21/2023. Now with significant critical illness myopathy. 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 No events overnight. Critical Care Time (minutes): 60 Physical Exam 2 Vital Signs: Vital Signs: Last Vital Signs Temp 97.1 F 11/25/23 08:00 Pulse 101 H 11/25/23 08:04 Resp 19 11/25/23 08:04 BP 135/92 H 11/25/23 08:00 Pulse Ox 97 11/25/23 08:00 O2 Del Method Mechanical Ventil ation 11/25/23 08:00 O2 Flow Rate 40 11/22/23 03:00 FiO2 35 11/25/23 08:04 BMI result Body Mass Index 23.3 Const: General: no acute distress, alert and awake Eyes: Sclerae: sclerae normal EOM: EOMs intact bilaterally Neck: Neck: Yes no lymphadenopathy, Yes trachea midline, Yes supple and Yes tracheostomy present Resp: Effort & Inspection: normal respiratory effort and no respiratory distress Auscultation: clear to auscultation bilaterally Cardio: Rate: tachycardic Rhythm: regular rhythm Heart sounds: no gallops, no murmurs and no rubs GI: Inspection: Yes G-tube present Palpation (GI): Soft to palpation and Other GI palpation findings present ( Nontender) Auscultation: normal bowel sounds Extrem: General: Yes no pedal edema, No clubbing and No cyanosis Objective Data Labs 11/25/23 05:33 11/25/23 05:33 Labs: Laboratory Results - last 24 hr 11/24/23 11/24/23 11/24/23 12:10 17:01 23:38 WBC RBC Hgb Hct MCV MCH MCHC RDW Plt Count MPV Immature Gran % (Auto) Neut % (Auto) Lymph % (Auto) [place] % (Auto) Eos % (Auto) Baso % (Auto) Lymph # (Auto) [place] # (Auto) Eos # (Auto) Baso # (Auto) Abs Immat Gran (auto) Absolute Neuts (auto) Absolute Nucleated RBC Nucleated RBC % (auto) VBG pH VBG pCO2 VBG pO2 VBG HCO3 VBG O2 Saturation VBG Base Excess Sodium Potassium Chloride Carbon Dioxide Anion Gap BUN Creatinine Estim Creat Clear Calc Estimated GFR POC Glucose 151 H 110 148 H Random Glucose Calcium Phosphorus Magnesium Albumin 11/25/23 11/25/23 05:28 05:33 WBC 4.7 L RBC 2.66 L Hgb 7.2 L Hct 22.5 L MCV 84.6 MCH 27.1 MCHC 32.0 RDW 18.5 H Plt Count 162 MPV 11.0 Immature Gran % (Auto) 0.4 Neut % (Auto) 64.3 Lymph % (Auto) 18.6 L [place] % (Auto) 11.2 H Eos % (Auto) 5.3 H Baso % (Auto) 0.2 Lymph # (Auto) 0.9 L [place] # (Auto) 0.5 Eos # (Auto) 0.3 Baso # (Auto) 0.0 Abs Immat Gran (auto) 0.02 Absolute Neuts (auto) 3.0 Absolute Nucleated RBC 0.000 Nucleated RBC % (auto) 0.0 VBG pH 7.36 VBG pCO2 44 VBG pO2 38 VBG HCO3 25 VBG O2 Saturation 67.0 VBG Base Excess 0.1 Sodium 139 Potassium 4.1 Chloride 107 Carbon Dioxide 22 Anion Gap 14 BUN 89 H Creatinine 3.57 H Estim Creat Clear Calc 20.7 Estimated GFR 17 POC Glucose Random Glucose 134 H Calcium 9.1 Phosphorus 3.3 Magnesium 2.5 Albumin 3.4 L Microbiology Microbiology Results: Microbiology 11/14/23 02:10 Blood - Venous Blood Culture - Final No growth after 5 days. 11/14/23 02:09 Blood - Venous Blood Culture - Final No growth after 5 days. 11/07/23 21:36 Sputum - Suctioned Gram Stain - Final 11/07/23 21:36 Sputum - Suctioned Sputum Culture - Final No growth. 10/02/23 06:40 Sputum - Suctioned Direct Acid Fast Bacilli Smear - Final 10/02/23 03:11 Blood - Central Line Blood Culture - Final No growth after 5 days. 10/02/23 03:11 Blood - Central Line Blood Culture - Final Coag negative Staphylococcus 10/02/23 06:40 Sputum - Suctioned Gram Stain - Final 10/02/23 06:40 Sputum - Suctioned Sputum Culture - Final 10/02/23 06:40 Urine Catheterized - Miguel Catheter Urine Culture - Final No growth. Progress Note: A&P Assessment and plan (1) Acute on chronic renal insufficiency: Status: Acute (2) Status post tracheostomy: Status: Acute (3) Critical illness myopathy: Status: Acute (4) HIV (human immunodeficiency virus infection): Status: Acute (5) Acute hypoxic respiratory failure: Status: Acute (6) Hepatitis C: Status: Acute (7) COPD (chronic obstructive pulmonary disease): Status: Acute Plan Assessment: 62-year-old gentleman with underlying HIV on HAART, hep C admitted with acute hypoxic respiratory failure secondary to bacterial superinfection of underlying influenza now requiring ventilatory support Plan: Neuro: Anxiety component now controlled on Seroquel/Lamictal. Cardiac: No acute issues. Pulmonary: Acute hypoxic respiratory failure secondary to bacterial superinfection of underlying influenza, improved and extubated on 10/13/2023. However with development of recurrent aspirations requiring re-intubation on 10/14/2023. Now status post tracheostomy/gastrostomy on 10/21/2023. Continue to titrate off ventilatory support as tolerated. Tracheostomy exchanged on 11/23/2023. Renal: Kidney function stabilized with creatinine around 3 and BUN around 80 likely secondary to HIV nephropathy. Non oliguric. Nephrology service care appreciated. Endo: No acute issues. GI: No acute issues. ID: No acute issues. Underlying HIV on Biktarvy. Heme/Onc: No acute issues. Psych: No acute issues. Miscellaneous: Critical illness myopathy, improving, continue with PT. Prophylaxis: Heparin Diet: Tube feeds Critical care time spent: 60 minutes Quality Stroke Does the patient have a stroke diagnosis?: No VTE Prior VTE?: No VTE Risk Level:: Medical - moderate - high VTE Device Contraindication: N/A - Device Ordered VTE Drug Contraindication: Treatment Not Tolerated
--- NOTE | 2023-11-25 09:54 | MHC.CM.PN ---
Addendum entered by Machelle Austin 11/25/23 14:25: Received call back from Clau at [facility]: she has informed her supervisory team of issue w/pt acceptance at [facility] (payment reimbursement issues) They are working on increasing the amount of facility reimbursement and may involve [facility]'s complex care management team to assist. Message left w/Kyara Escobedo, [facility] admissions liaison informing her of above. No acceptances from expanded SNF search. [facility]AN continues to follow but is requesting the following from the provider: 1. notes from MD and nephrology stating pt will not require HD (cannot state no HD at this time ) and that his new baseline creat is 3. 2. Notes from respiratory showing increased trach collar trials and references to likely vent weaning. CM to update ICU MD. CM to continue to search for placement. Original Note: Review of notes/EMR from 11/23: [facility] can no longer accept pt d/t poor reimbursement for care needs by payor. Payor ([facility]) states they have given auth for transfer but did not divulge specifics on payment contract. CM l/m w/[facility] UR RN contact Clau Howe to discuss options further. Pt requires a high level of care d/t complex medical needs but was denied at [facility] d/t renal function not being at facility required levels. SNF search updated in [facility] using 100 mile radius and trach capacity search feature. CM to follow.
[2023-11-25] MEDS: Midazolam HCl/PF 2 MG/2 ML VIAL IVPUSH ×2 (11:13→20:05)
[2023-11-25 11:28] LABS: Glucose, Whole Blood 138 mg/dL (60-115)
[2023-11-25] MEDS: Albuterol Sulfate (0.083%) 2.5 MG/3 ML VIAL.NEB INHALE (16:02)
--- NOTE | 2023-11-25 16:40 | HO.WOUND ---
Wound Consult: Follow up 62yr old?M admitted to [facility] on 10[place]02 - See progress notes and H&P for detailed history.? Wound consult follow up for Sacral wound.? Patient remains in ICU at the time of my consult / assessment. 10/26/23 Initial Assessment 11/02/23 11/25/23 Todays Assessment Left Sacrum Etiology: Resurfacing Stage 2 Pressure Injury - previously documented as Deep Tissue Injury in [facility] ? Measurements: 1.2cm x 0.2cm x 0.1cm Wound Bed: pink moist wound bed - thin veil of yellow noted Drainage / Odor: small amount of serosang noted on dressing Edges: ? well defined with maceration noted Kellen wound: ?Scar tissue noted indicating previous full thickness pressure injury - hyperpigmentation noted - No Induration, Fluctuance or Warmth noted Pain: Patient denies pain Goals of Treatment: ? Moist wound healing with Triad and Foam and protect from friction - Off Load Pressure No new topical recommendations needed. Recommendations: 1. Turn and Reposition every 2 hours and as needed for patient comfort.? Use pillows or wedges to support off loading positions. 2. Off Load all bony prominences with use of pillows and heel boots if needed.? Apply Preventative foams where needed. ? 3. Monitor for incontinence and moisture control, use barrier creams when needed for prevention and treatment. 4. Provide adequate and supplemental nutrition.? 5. Continue low air loss mattress. 6. When applicable maintain blood glucose levels per Providers order. 7. Sacrum - Off Load Pressure - Cleanse with PH balance spray or wipes, pat dry. ?Apply thin layer of Triad to wound bed. Do not remove all of paste between applications as this may cause further skin damage.? Cover with foam dressing to aid in off loading and protection from friction. Re-consult wound care Nurse for wound deterioration or wound changes.
[2023-11-25 17:55] LABS: Glucose, Whole Blood 143 mg/dL (60-115)
[2023-11-25] MEDS: Melatonin 3 MG TABLET 6 MG PO (23:59)
[2023-11-26] VITALS (23 sets, daily range): BP systolic 93–167; BP diastolic 59–107; PULSE 92–123; RESP 14–31; TEMP 34.6–37; O2SAT 91–100; BMI 22.7
[2023-11-26] MEDS: LORazepam 1 MG TABLET PO
--- NOTE | 2023-11-26 01:17 | PC.NURSE ---
CARE ASSUMED 7PM...REMAINS VCV VENT SUPPORT VIA TRACHEOTOMY...RESTLESS/AGITATED AT SHIFT CHANGED...JOHNSON...SUCTIONED CREAM SECRETIONS VIA TRACH...PATIENT PULLING ON VENT TUBING AND TRACHEOTOMY...MOUTHS I WANT IT OUT NOW ...FINGERS UNDERNEATH TRACH FLANGE AND ATTEMPTING TO PULL OUT TRACH...VERSED 2MG IV X1 STAT PER ICU HANGERSMITH....INITIALLY MINIMAL EFFECT....ATTEMPTING TO REDIRECT AND RE-ORIENT TO NEED FOR TRACHEOTOMY W/O EFFECT...PATIENT PLACED IN BILATERAL SOFT WRIST RESTRAINTS PER HANGERSMITH FOR AIRWAY SAFETY....SCHEDULED PSYCH/ANXIETY MEDS GIVEN 8PM....DOZING IN SHORT NAPS..AWAKE AT TIMES...CONTINUES TO REACH FOR TRACH APPLIANCE WHEN RESTRAINTS BRIEFLY RELEASED FOR ROM AND POSITIONING...RESTRAINTS MAINTAINED AT PRESENT FOR AIRWAY SAFETY
[2023-11-26] MEDS: Metoprolol Tartrate 25 MG TABLET PO ×2 (02:29→09:29)
[2023-11-26 04:50] LABS: VBG Base Excess 0.3 mmol/L; VBG HCO3 25 mmol/L (22-26); VBG pCO2 43 mmHg; VBG pH 7.37 (7.32-7.43); VBG pO2 38 mmHg
[2023-11-26 04:51] LABS: MANUAL DIFF FLAG NO
[2023-11-26 04:51] LABS: Venous Blood Gas Refer to POC result
[2023-11-26 04:52] LABS: Basophils Percent Auto 0.2 % (0-2); Eosinophils Absolute Auto 0.2 X10*3/uL (0.0-0.4); Hematocrit 22.9 % (42.0-52.0); Hemoglobin 7.4 g/dl (14.0-18.0); Imm Gran Abs Auto 0.03 X10*3/uL (0.00-0.03); Imm Gran Pct Auto 0.6 % (0.0-0.4); Lymphocytes Absolute Auto 0.9 X10*3/uL (1.2-4.9); Lymphocytes Percent Auto 18.4 % (20-40); Mean Corpuscular HGB Conc 32.3 g/dl (31.0-36.0); Mean Corpuscular Hemoglobin 26.6 pg (27.0-33.0); Mean Corpuscular Volume 82.4 fL (80.0-98.0); Mean Platelet Volume 10.9 fL (9.4-12.4); Monocytes Absolute Auto 0.6 X10*3/uL (0.1-1.2); Monocytes Percent Auto 12.5 % (2-11); Neutrophils Absolute Auto 2.9 x10*3/uL (2.0-8.3); Neutrophils Percent Auto 63.3 % (45-73); Platelet Count 190 X10*3/uL (160-400); Red Blood Count 2.78 X10*6/uL (4.60-5.80); Red Cell Distribution Width 18.7 % (11.0-16.0); White Blood Count 4.6 X10*3/uL (4.8-10.8)
[2023-11-26 05:05] LABS: Anion Gap 14 (12-20); Carbon Dioxide 23 mmol/L (22-29); Chloride 106 mmol/L (96-108); Potassium 3.9 mmol/L (3.3-5.1); Sodium 139 mmol/L (135-145)
[2023-11-26 05:06] LABS: Albumin Level 3.9 g/dL (3.5-5.0); Blood Urea Nitrogen 84 mg/dL (9-16); Calcium 9.4 mg/dL (8.4-10.2); Creatinine Clr Calc Pharmacy 21.4; Estimated Glomerular Filt Rate 18; Glucose Random 137 mg/dL (60-115); Magnesium 2.7 mg/dL (1.6-2.6); Phosphorus 3.1 mg/dL (2.7-4.5)
[2023-11-26] MEDS: Omeprazole/Na Bicarb Oral Susp 20 MG/10 ML UD Cup 40 MG PO (06:01)
[2023-11-26] MEDS: oxyCODONE HCl Immed Release 5 MG TABLET PO ×2 (07:16)
[2023-11-26] MEDS: 0.9 % Sodium Chloride Flush 10 ML SYRINGE IVFLUSH (07:16)
[2023-11-26] MEDS: hydrOXYzine HCL 25 MG TABLET PO ×3 (07:16→17:06)
[2023-11-26 07:26] LABS: Glucose, Whole Blood 184 mg/dL (60-115)
[2023-11-26] MEDS: Insulin Lispro 100 UNIT/ML 3 ML VIAL SUBCUT (07:33)
[2023-11-26] MEDS: Tobramycin Sulfate 80 MG/2 ML VIAL 300 MG INHALE (07:59)
[2023-11-26] MEDS: Chlorhexidine Gluc Oral Rinse 15 ML MOUTHWASH BUCCAL (08:02)
[2023-11-26] MEDS: QUEtiapine Fumarate 25 MG TABLET PO ×2 (08:02→11:49)
[2023-11-26] MEDS: lamoTRIgine 25 MG TABLET 50 MG PO (08:02)
[2023-11-26] MEDS: Bictegrav/Emtricit/Tenofov Ala TABLET 1 TAB PO (08:02)
[2023-11-26] MEDS: Bacitracin Oint 14 GM TUBE 1 APPL TOPICAL (08:02)
[2023-11-26] MEDS: Nystatin Powder 15 GM BOTTLE 1 APPL TOPICAL (08:02)
[2023-11-26] MEDS: diazePAM 2 MG TABLET PO ×2 (09:29→15:40)
--- NOTE | 2023-11-26 09:54 | MHC.CLN ---
F/U PT CONTINUES TOLERATING TF WITH LOW RESIDUALS PT RECEIVES TF NEPRO AT MAX GOAL RATE 45ML/HR WITH 240ML Q 6 HR PROVIDES 1944KCALS (30KCALS/KG), 87G PROTEIN (1.3G/KG), 1745ML TOTAL WATER FROM FORMULA AND FLUSHES (26ML/KG) SEEN BY WOUND RD. STAGE II PRESSURE INJURY TO LEFT SACRUM. TF PROVIDING FOR HIGHER PROTEIN NEEDS WITH WOUND. CONTINUE TO MONITOR TOLERANCE, RESIDUALS, AND LYTES
--- NOTE | 2023-11-26 10:20 | P.PNCC_ITS ---
Subjective Subjective Date of Service: 11/26/23 Interval History: 62-year-old gentleman with underlying HIV on HAART, hep C, COPD admitted on 10/02/2023 with acute hypoxic respiratory failure secondary to influenza with superimposed bacterial superinfection requiring intubation, pressor, and ventilatory support. Cultures are negative to date. Shock component has resolved. Now with abdominal distention secondary to ileus versus SBO, evaluated by general surgeon and deemed to underlying ileus. Extubated 10/13/2023. On 10/14/2023 with an aspiration event resulting in refractory hypoxia requiring emergent intubation and ventilatory support. Post tracheostomy and gastrostomy on 10/21/2023. Now with significant critical illness myopathy. 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 Significant anxiety overnight, started on diazepam this a.m. Critical Care Time (minutes): 60 Physical Exam 2 Vital Signs: Vital Signs: Last Vital Signs Temp 98.6 F 11/26/23 08:00 Pulse 96 11/26/23 10:00 Resp 25 H 11/26/23 10:00 BP 114/75 11/26/23 10:00 Pulse Ox 97 11/26/23 10:00 O2 Del Method Mechanical Ventil ation 11/26/23 10:00 O2 Flow Rate 40 11/22/23 03:00 FiO2 35 11/26/23 10:00 BMI result Body Mass Index 22.7 Const: General: no acute distress, alert and awake Eyes: Sclerae: sclerae normal EOM: EOMs intact bilaterally Neck: Neck: Yes no lymphadenopathy, Yes trachea midline, Yes supple and Yes tracheostomy present Resp: Effort & Inspection: normal respiratory effort and no respiratory distress Auscultation: clear to auscultation bilaterally Cardio: Rate: regular rate Rhythm: regular rhythm Heart sounds: no gallops, no murmurs and no rubs GI: Inspection: Yes G-tube present Palpation (GI): Soft to palpation and Other GI palpation findings present ( Nontender) Auscultation: normal bowel sounds Extrem: General: Yes no pedal edema, No clubbing and No cyanosis Objective Data Labs 11/26/23 04:45 11/26/23 04:45 Labs: Laboratory Results - last 24 hr 11/25/23 11/25/23 11/26/23 11:24 17:51 04:43 WBC RBC Hgb Hct MCV MCH MCHC RDW Plt Count MPV Immature Gran % (Auto) Neut % (Auto) Lymph % (Auto) [place] % (Auto) Eos % (Auto) Baso % (Auto) Lymph # (Auto) [place] # (Auto) Eos # (Auto) Baso # (Auto) Abs Immat Gran (auto) Absolute Neuts (auto) Absolute Nucleated RBC Nucleated RBC % (auto) VBG pH 7.37 VBG pCO2 43 VBG pO2 38 VBG HCO3 25 VBG O2 Saturation 66.0 VBG Base Excess 0.3 Sodium Potassium Chloride Carbon Dioxide Anion Gap BUN Creatinine Estim Creat Clear Calc Estimated GFR POC Glucose 138 H 143 H Random Glucose Calcium Phosphorus Magnesium Albumin 11/26/23 11/26/23 04:45 07:23 WBC 4.6 L RBC 2.78 L Hgb 7.4 L Hct 22.9 L MCV 82.4 MCH 26.6 L MCHC 32.3 RDW 18.7 H Plt Count 190 MPV 10.9 Immature Gran % (Auto) 0.6 H Neut % (Auto) 63.3 Lymph % (Auto) 18.4 L [place] % (Auto) 12.5 H Eos % (Auto) 5.0 H Baso % (Auto) 0.2 Lymph # (Auto) 0.9 L [place] # (Auto) 0.6 Eos # (Auto) 0.2 Baso # (Auto) 0.0 Abs Immat Gran (auto) 0.03 Absolute Neuts (auto) 2.9 Absolute Nucleated RBC 0.000 Nucleated RBC % (auto) 0.0 VBG pH VBG pCO2 VBG pO2 VBG HCO3 VBG O2 Saturation VBG Base Excess Sodium 139 Potassium 3.9 Chloride 106 Carbon Dioxide 23 Anion Gap 14 BUN 84 H Creatinine 3.48 H Estim Creat Clear Calc 21.4 Estimated GFR 18 POC Glucose 184 H Random Glucose 137 H Calcium 9.4 Phosphorus 3.1 Magnesium 2.7 H Albumin 3.9 Microbiology Microbiology Results: Microbiology 11/14/23 02:10 Blood - Venous Blood Culture - Final No growth after 5 days. 11/14/23 02:09 Blood - Venous Blood Culture - Final No growth after 5 days. 11/07/23 21:36 Sputum - Suctioned Gram Stain - Final 11/07/23 21:36 Sputum - Suctioned Sputum Culture - Final No growth. 10/02/23 06:40 Sputum - Suctioned Direct Acid Fast Bacilli Smear - Final 10/02/23 03:11 Blood - Central Line Blood Culture - Final No growth after 5 days. 10/02/23 03:11 Blood - Central Line Blood Culture - Final Coag negative Staphylococcus 10/02/23 06:40 Sputum - Suctioned Gram Stain - Final 10/02/23 06:40 Sputum - Suctioned Sputum Culture - Final 10/02/23 06:40 Urine Catheterized - Miguel Catheter Urine Culture - Final No growth. Progress Note: A&P Assessment and plan (1) Acute on chronic renal insufficiency: Status: Acute (2) Status post tracheostomy: Status: Acute (3) Critical illness myopathy: Status: Acute (4) HIV (human immunodeficiency virus infection): Status: Acute (5) Acute hypoxic respiratory failure: Status: Acute (6) Hepatitis C: Status: Acute (7) COPD (chronic obstructive pulmonary disease): Status: Acute Plan Assessment: 62-year-old gentleman with underlying HIV on HAART, hep C admitted with acute hypoxic respiratory failure secondary to bacterial superinfection of underlying influenza now requiring ventilatory support Plan: Neuro: Anxiety component worsening, started on diazepam. Cardiac: No acute issues. Pulmonary: Acute hypoxic respiratory failure secondary to bacterial superinfection of underlying influenza, improved and extubated on 10/13/2023. However with development of recurrent aspirations requiring re-intubation on 10/14/2023. Now status post tracheostomy/gastrostomy on 10/21/2023. Continue to titrate off ventilatory support as tolerated. Tracheostomy exchanged on 11/23/2023. Renal: Kidney function stabilized with creatinine around 3 and BUN around 80 likely secondary to HIV nephropathy. Non oliguric. Nephrology service care appreciated. Endo: No acute issues. GI: No acute issues. ID: No acute issues. Underlying HIV on Biktarvy. Heme/Onc: No acute issues. Psych: No acute issues. Miscellaneous: Critical illness myopathy, improving, continue with PT. Prophylaxis: Heparin Diet: Tube feeds Critical care time spent: 60 minutes Quality Stroke Does the patient have a stroke diagnosis?: No VTE Prior VTE?: No VTE Risk Level:: Medical - moderate - high VTE Device Contraindication: N/A - Device Ordered VTE Drug Contraindication: Treatment Not Tolerated
[2023-11-26 11:06] LABS: Glucose, Whole Blood 127 mg/dL (60-115)
[2023-11-26] MEDS: Albuterol Sulfate (0.083%) 2.5 MG/3 ML VIAL.NEB INHALE (11:51)
--- NOTE | 2023-11-26 12:23 | MHC.CM.PN ---
Addendum entered by Machelle Austin 11/26/23 14:05: Received call from Kyara Escobedo clinical liaison at [facility]. They have finalized payment/reimbursement w/[facility] and can now accept pt for STR. [facility] called to arrange 4pm transport time. Call placed to Earl Erickson to inform him of d/c - facility contact information given. Met w/pt to inform him of d/c this afternoon - pt in agreement. ICU MD and RN aware of plan. Original Note: Met w/pt and son Earl SinhaPing to update on D/C planning. Pt alert, communicating verbally (no PMV so pt essentially mouths words) as well as writing on paper. 99 additional referrals placed on 11/24 without acceptance. Received [facility]port message from Kyara Conti, clinical liaison at [facility] who states a supervisor silvering department from [facility] had called her and they are working on reimbursement for pt to transfer to facility. Received call from CAN Mcguire RN from [facility] who was requesting a status update on barriers to SNF transfer. She states she will expedite a resolution with her counseling center manager. Updated ICU care team on above. CM to follow for placement
[2023-11-26 16:09] LABS: Glucose, Whole Blood 132 mg/dL (60-115)
--- NOTE | 2023-11-26 17:48 | PC.RT ---
Pt being discharged to facility via EMS. Pt placed on EMS ventilator current settings and kayla well for approx 20 min. Pt transferred to [facility] without incident and transported with EMS. Extra trach and inline suction sent with EMS.
== END 2023-11-26 17:31 | DRG 5 ==
LOC: HO.ED 03:28 → HO.EDOVER 04:38 → HO.ICU 06:32
PROVIDERS: Internal Medicine Critical Care Medicine; Internal Medicine Hypertension Specialist; Nurse Practitioner Family; Registered Nurse Community Health; Surgery; Admitting Provider Physician Assistant Medical; Emergency Provider Emergency Medicine Emergency Medical Services; PCP Internal Medicine; Visit Provider Internal Medicine Pulmonary Disease
PROC: 0B110F4 Bypass Trachea to Cutaneous with Tracheostomy Device, Open Approach (ICD-10-PCS; principal; 2023-10-21 13:20)
PROC: 0DH63UZ Insertion of Feeding Device into Stomach, Percutaneous Approach (ICD-10-PCS; CPT 43246; 2023-10-21 13:20)
PROC: 02HV33Z Insertion of Infusion Device into Superior Vena Cava, Percutaneous Approach (ICD-10-PCS; principal; 2023-10-25 14:30)
DX: A41.9 Sepsis, unspecified organism (principal); N17.0 Acute kidney failure with tubular necrosis; R65.21 Severe sepsis with septic shock; G72.81 Critical illness myopathy; J10.08 Influenza due to other identified influenza virus with other specified pneumonia; J15.9 Unspecified bacterial pneumonia; E87.4 Mixed disorder of acid-base balance; B20 Human immunodeficiency virus [HIV] disease; L89.152 Pressure ulcer of sacral region, stage 2; J96.01 Acute respiratory failure with hypoxia; K56.7 Ileus, unspecified; E87.5 Hyperkalemia; B37.9 Candidiasis, unspecified; Z99.11 Dependence on respirator [ventilator] status; R73.9 Hyperglycemia, unspecified; F41.9 Anxiety disorder, unspecified; B19.20 Unspecified viral hepatitis C without hepatic coma; J44.0 Chronic obstructive pulmonary disease with (acute) lower respiratory infection; G47.33 Obstructive sleep apnea (adult) (pediatric); F17.210 Nicotine dependence, cigarettes, uncomplicated; Z71.6 Tobacco abuse counseling; Z79.4 Long term (current) use of insulin; Z79.899 Other long term (current) drug therapy
CPT/HCPCS: 0241U; 36415; 36573; 70450; 71045; 71250; 74176; 80048; 80053; 80061; 80202; 80307; 81001; 82040; 82140; 82272; 82570; 82803; 82947; 83036; 83540; 83605; 83615; 83690; 83735; 83880; 84100; 84145; 84156; 84443; 84484; 85007; 85014; 85018; 85025; 85027; 85610; 85730; 85999; 86140; 86359; 86360; 86850; 86870; 86880; 86885; 86900; 86901; 86902; 86905; 86920; 86922; 87040; 87070; 87086; 87116; 87205; 87206; 87522; 87536; 93005; 93306; 93970; 94002; 94003; 94640; 94799; 97162; 97530; 99285; C1751; C1758; C9113; J0131; J0153; J0692; J1170; J1450; J1642; J1644; J1720; J1836; J1939; J1940; J2060; J2250; J2310; J2371; J2405; J2543; J2598; J2704; J2765; J2795; J3010; J3260; J3370; J3371; J3480; J7120; P9016; P9047

== ENCOUNTER → 2023-10-02 02:25 | Outpatient (BNV) | payer OTHER, SELFPAY | PROVIDERS: Admitting Provider Physician Assistant Medical; Emergency Provider Emergency Medicine Emergency Medical Services; Visit Provider Internal Medicine Cardiovascular Disease | DX: R00.0 Tachycardia, unspecified (principal); R06.09 Other forms of dyspnea; I44.0 Atrioventricular block, first degree | CPT/HCPCS: 93010 ==

== ENCOUNTER 2023-10-02 04:08 | Outpatient (BNV) | payer OTHER, SELFPAY | END 2023-11-24 07:56 | PROVIDERS: Admitting Provider Physician Assistant Medical; Emergency Provider Emergency Medicine Emergency Medical Services; PCP Internal Medicine; Visit Provider Internal Medicine | DX: R00.0 Tachycardia, unspecified (principal) | CPT/HCPCS: 93010 ==

== ENCOUNTER 2023-10-02 04:08 | Outpatient (BNV) | payer OTHER, SELFPAY | END 2023-11-17 07:56 | PROVIDERS: Admitting Provider Physician Assistant Medical; Emergency Provider Emergency Medicine Emergency Medical Services; PCP Internal Medicine; Visit Provider Internal Medicine Cardiovascular Disease | DX: R00.0 Tachycardia, unspecified (principal) | CPT/HCPCS: 93010 ==

== ENCOUNTER 2023-10-02 04:08 | Outpatient (BNV) | payer OTHER, SELFPAY | END 2023-10-04 07:00 | PROVIDERS: Admitting Provider Physician Assistant Medical; Emergency Provider Emergency Medicine Emergency Medical Services; Visit Provider Internal Medicine | DX: J96.01 Acute respiratory failure with hypoxia (principal) | CPT/HCPCS: 93306 ==

== ENCOUNTER 2023-10-02 04:08 | Outpatient (BNV) | payer OTHER, SELFPAY | END 2023-10-06 04:34 | PROVIDERS: Admitting Provider Physician Assistant Medical; Emergency Provider Emergency Medicine Emergency Medical Services; Visit Provider Internal Medicine | DX: R00.0 Tachycardia, unspecified (principal); I49.3 Ventricular premature depolarization | CPT/HCPCS: 93010 ==

== ENCOUNTER → 2023-10-02 04:08 | Outpatient (BNV) | payer OTHER, SELFPAY | PROVIDERS: Admitting Provider Physician Assistant Medical; Emergency Provider Emergency Medicine Emergency Medical Services; PCP Internal Medicine; Visit Provider Internal Medicine Hypertension Specialist | DX: N17.9 Acute kidney failure, unspecified (principal); N18.9 Chronic kidney disease, unspecified; E87.5 Hyperkalemia; N17.0 Acute kidney failure with tubular necrosis | CPT/HCPCS: 99223; 99231; 99232 ==

== ENCOUNTER → 2023-10-02 04:08 | Outpatient (BNV) | payer OTHER, SELFPAY | PROVIDERS: Admitting Provider Physician Assistant Medical; Emergency Provider Emergency Medicine Emergency Medical Services; Visit Provider Physician Assistant Medical | DX: N17.9 Acute kidney failure, unspecified (principal); N18.9 Chronic kidney disease, unspecified; Z93.0 Tracheostomy status; G72.81 Critical illness myopathy; B20 Human immunodeficiency virus [HIV] disease; J96.01 Acute respiratory failure with hypoxia; J96.02 Acute respiratory failure with hypercapnia; J41.0 Simple chronic bronchitis; B19.20 Unspecified viral hepatitis C without hepatic coma | CPT/HCPCS: 36556; 99291; 99292 ==

== ENCOUNTER → 2023-10-02 04:08 | Outpatient (BNV) | payer OTHER, SELFPAY | PROVIDERS: Admitting Provider Physician Assistant Medical; Emergency Provider Emergency Medicine Emergency Medical Services; Visit Provider Internal Medicine | DX: J11.1 Influenza due to unidentified influenza virus with other respiratory manifestations (principal); J18.9 Pneumonia, unspecified organism; B20 Human immunodeficiency virus [HIV] disease; J96.01 Acute respiratory failure with hypoxia | CPT/HCPCS: 99222 ==

== ENCOUNTER → 2023-10-02 04:08 | Outpatient (BNV) | payer OTHER, SELFPAY | PROVIDERS: Admitting Provider Physician Assistant Medical; Emergency Provider Emergency Medicine Emergency Medical Services; Visit Provider Internal Medicine Pulmonary Disease | DX: J96.01 Acute respiratory failure with hypoxia (principal); Z93.0 Tracheostomy status; G72.81 Critical illness myopathy; B20 Human immunodeficiency virus [HIV] disease; N18.9 Chronic kidney disease, unspecified; N28.9 Disorder of kidney and ureter, unspecified; B19.20 Unspecified viral hepatitis C without hepatic coma; J41.0 Simple chronic bronchitis | CPT/HCPCS: 31500; 99239; 99291 ==

== ENCOUNTER → 2023-10-02 04:08 | Outpatient (BNV) | payer OTHER, SELFPAY | PROVIDERS: Admitting Provider Physician Assistant Medical; Emergency Provider Emergency Medicine Emergency Medical Services; Visit Provider Physician Assistant Surgical | DX: J96.01 Acute respiratory failure with hypoxia (principal) | CPT/HCPCS: 31600; 43246; 99222; 99232; 99499 ==

== ENCOUNTER 2024-03-28 04:17 | Inpatient (IN) | payer OTHER, SELFPAY ==
[2024-03-28] VITALS (20 sets, daily range): BP systolic 112–125; BP diastolic 74–91; PULSE 85–140; RESP 13–27; TEMP 36.4–37.1; O2SAT 90–100; BMI 22.6
--- NOTE | ~2024-03-28 | XR_ITS ---
EXAMINATION: XR CHEST CLINICAL INFORMATION: Cough. Dyspnea. COMPARISON: None available. TECHNIQUE: Frontal view of the chest was obtained. FINDINGS: Normal appearance of the cardiomediastinal structures. Mild blunting of the right costophrenic sulcus is noted. No pneumothoraces visualized. Asymmetric, multifocal fine and medium pulmonary reticular opacities are present with findings most pronounced in the right middle lung zone and right lung base. XR/XR chest 1V IMPRESSION: *Multifocal reticular/interstitial opacities of the lungs which may represent multifocal infection. Findings could also represent a component of interstitial pulmonary edema. *Small right pleural effusion.
--- NOTE | 2024-03-28 04:28 | ECG_ITS ---
Test Reason : sob Blood Pressure : / mmHG Vent. Rate : 127 BPM Atrial Rate : 000 BPM P-R Int : 000 ms QRS Dur : 078 ms QT Int : 378 ms P-R-T Axes : 000 040 089 degrees QTc Int : 549 ms Accelerated Junctional rhythm Anteroseptal infarct , age undetermined Abnormal ECG No previous ECGs available Referred By: Seda Bello Electronically Signed By:
--- NOTE | 2024-03-28 04:44 | ED.SOB ---
HPI - SOB/Dyspnea General Chief Complaint: Dyspnea Stated Complaint: difficulty breathing Time Seen by Provider: 03/28/24 04:17 Source: patient and old records reviewed Mode of arrival: EMS Limitations: other (poor historian) History of Present Illness ED Provider: KALEB KWONG Narrative: 61 yo male with PMH of HIV, HCV, COPD hx of trach and PEG back in October after influenza and superimposed bacterial infection s/p reintubations in the past with prolonged hospital stay here who presents tonight with c/o difficulty breathing and increased sputum at this trach opening. He denies fevers, chills, chest pain. He is not very forthcoming with information. EMS found the patient in significant distress tripoding with sats in the 60s on RA. was given trever TAY MD elicited complaint: shortness of breath and cough Pertinent past history: asthma, pneumonia and tracheostomy Onset (ago): day(s) (2) Context: other Timing: progressively worsening Severity: moderate Exacerbating factors: exertion and coughing Relieving factors: oxygen, rest and bronchodilators Known history of: COPD and recurrent pneumonia Associated symptoms: cough, wheezing and sputum production Treatment prior to arrival: oxygen, bronchodilator and NIPPV Related Data Home Medications ?Medication ?Instructions ?Recorded ?Confirmed bictegravir 50 mg-emtricitabine 1 tab PO DAILY 04/24/22 10/02/23 200 mg-tenofovir alafenam 25 mg tablet (Biktarvy) dapagliflozin propanediol 10 mg 10 mg PO DAILY 10/30/22 10/02/23 tablet (Farxiga) atorvastatin 40 mg tablet 40 mg PO BEDTIME 04/30/23 10/02/23 cholecalciferol (vitamin D3) 1,250 1,250 mcg PO QWEEK 10/02/23 10/02/23 mcg (50,000 unit) capsule Previous Rx's ?Medication ?Instructions ?Recorded acetaminophen 650 mg/20.3 mL oral 975 mg (30.45 mL) PO Q6H PRN Pain, 11/23/23 solution Moderate(Pain Scale 4-6) 30 days #609 mL albuterol sulfate 2.5 mg/3 mL 2.5 mg (3 mL) inhalation Q4H PRN 11/23/23 (0.083 %) solution for nebulization Shortness Of Breath/Wheezing #180 mL bacitracin 500 unit/gram topical 1 appl topical BID #14 grams 11/23/23 ointment chlorhexidine gluconate 0.12 % 15 ml buccal TID #473 mL 11/23/23 mouthwash dextrose 40 % oral gel (Glutose-15) 15 g PO Q15M PRN Per Hypoglycemia 11/23/23 Standing Ord. #300 grams heparin (porcine) 5,000 unit/mL 5,000 unit subcut Q8H #25 mL 11/23/23 injection solution insulin lispro 100 unit/mL See Protocol subcut Q6H #10 mL 11/23/23 subcutaneous solution (Admelog U-100 Insulin lispro) lamotrigine 25 mg tablet 50 mg (2 x 25 mg) PO BID #60 tabs 11/23/23 lidocaine 4 % topical patch 2 patch transdermal DAILY 30 days 11/23/23 (Lidocaine Pain Relief) #60 ea melatonin 3 mg tablet 6 mg (2 x 3 mg) PO BEDTIME PRN 11/23/23 sleep #30 tabs metoprolol tartrate 25 mg tablet 25 mg PO Q8H #90 tabs 11/23/23 nystatin 100,000 unit/gram topical 1 appl topical BID #60 grams 11/23/23 powder oxycodone 5 mg tablet 5 mg PO Q4H PRN Pain, Severe (Pain 11/23/23 Scale 7-10) #30 tabs quetiapine 25 mg tablet 25 mg PO BID #60 tabs 11/23/23 tobramycin sulfate 40 mg/mL 300 mg (7.5 mL) inhalation Q12H 11/23/23 injection solution #50 mL Allergies Allergy/AdvReac Type Severity Reaction Status Date / Time No Known Allergies Allergy Unverified 03/28/24 04:31 Review of Systems Review of Systems: Constitutional : No Fever, pos Chills ENT/Mouth : No Hoarseness, No sore throat, No Rhinorrhea Eyes: No Redness, No Discharge, No Vision Changes Cardiovascular : No Chest Pain, positive SOB, positive Dyspnea on Exertion, No Edema Respiratory : positive Cough, oos Sputum, positive Wheezing, Gastrointestinal : No Nausea, No Vomiting, No Diarrhea, No abdominal Pain Genitourinary : No Dysuria, No Hematuria Musculoskeletal : No joint pain, No Myalgias Skin : No rash Neuro : No Weakness, No Numbness, No Headache Psych : No anxiety, depression Heme/Lymph: No Bruising, No Bleeding Endocrine : No Polyuria, No Polydipsia All other systems reviewed and are negative [facility] Past Medical History Attestation statement: The following information was validated with the patient. Source: old records reviewed Medical History Myocardial injury Respiratory failure Pneumonia TERRY (obstructive sleep apnea) Pulmonary nodules Hepatitis C HIV disease COPD (chronic obstructive pulmonary disease) Social History Social History Household Members: Unknown / Unable to assess Housing: Unknown / Unable to assess Comment: Sitter at bedside Patient Tobacco Use Status: Tobacco use Unknown Tobacco use type: Cigarette Cigarette Packs Per Day: 1 Cigarettes Per Day: 4 Years Smoked: 30 Years Smoked in Last 30 Days: No Use of substances other than those prescribed or required for medical reasons: No Substance Use Type: Unknown Advance Directives: No Advance Directives Information Provided: Yes Physical Exam Vital Signs: Vital Signs: Last Vital Signs Temp 98.8 F 03/28/24 06:34 Pulse 116 H 03/28/24 07:13 Resp 21 H 03/28/24 07:13 BP 118/85 03/28/24 06:34 Pulse Ox 95 03/28/24 06:34 O2 Del Method BiPAP 03/28/24 06:34 O2 Flow Rate 30 03/28/24 05:39 FiO2 30 03/28/24 06:34 BMI result Body Mass Index 22.6 Appearance: Alert. Oriented X3. Moderate acute distress labored Eyes: Pupils equal, round and reactive to light. ENT: Pharynx normal. Neck: yellow green secretions from trach CVS: tachyardic heart rate and rhythm. Pulses normal. Respiratory: Moderate respiratory distress - tachypnea and retractions. Breath sounds diminished with wheezes throughout - R lung fine rales throughout Abdomen: Soft and nontender. Skin: Skin warm and dry. Normal skin color. Normal skin turgor. Extremities: 1+ bilateral pitting lower extremity edema. Neuro: Oriented X 3. No motor deficit. No sensory deficit. Course Course Course Narrative: patient off bipap not a ventilation issue will trial high flow Reevaluation(s) Reevaluation #1: patient tolerating high flow well Reevaluation #2: hospitalists and ICU to decide on placement at this time. Dr. Allen aware Medications Administered Discontinued Medications Generic Name Dose Route Start Last Admin Trade Name Mor PRN Reason Stop Dose Admin Albuterol Sulfate 7.5 mg/ 10 mg 03/28/24 05:58 03/28/24 06:00 Albuterol Sulfate 2.5 mg INHALE 03/28/24 05:59 10 mg ONCE ONE Administration Albuterol Sulfate 7.5 mg/ 10 mg 03/28/24 07:12 03/28/24 07:13 Albuterol Sulfate 2.5 mg INHALE 03/28/24 07:13 10 mg ONCE ONE Administration Magnesium Sulfate 2 gm in 50 mls @ 25 mls/hr 03/28/24 04:27 03/28/24 06:31 Magnesium Sulfate/H2o IV 03/28/24 06:26 25 mls/hr ONCE ONE Administration Cefepime HCl 1 gm/ Sodium 50 mls @ 100 mls/hr 03/28/24 04:27 03/28/24 06:31 Chloride IV 03/28/24 04:56 Infused ONCE ONE Infusion Lactated Ringer's 500 mls @ 999 mls/hr 03/28/24 05:15 03/28/24 06:47 Lr IV 03/28/24 05:45 Infused .Q31M SUSANA Infusion Methylprednisolone Sodium Succinate 60 mg 03/28/24 04:27 03/28/24 05:18 Methylprednisolone Sod Succ 125 Mg/2 Ml Vial IVPUSH 03/28/24 04:28 60 mg ONCE ONE Administration Medical Decision Making Medical Decision Making MDM Narrative: 61 yo male with PMH of HIV, HCV, COPD hx of trach and PEG back in October after influenza and superimposed bacterial infection with prolonged ICU stay s/p trach and PEG in past here with c/o cough, increased sputum, not feeling well for 2 days found to be in resp distress on arrival we attempted to suction him but he declined he finally agreed. At this time placed on NIPPV with goal to either move to oxymask via trach or high flow it doesn't seem like a ventilation issue but an oxygenation issue, labs, cultures, CXR, empiric cefepime - no prior sputum cultures noted, he has not been admitted in the past few months so wouldn't be HCAP, IV steroids ordered, gentle fluids does have leg edema on exam, BNP slightly bumped but he has Cr and it is at baseline Differential Diagnosis Differential Diagnoses: The differential diagnosis associated with the presentation includes pneumonia, viral syndrome, tracheitis Admission/Observation Consideration of admission/observation: Escalation of care including admission/observation considered will need admission for further management Consult Healthcare Provider Management of the patient was discussed with: Research Home Economist (Pulm is aware of patient with trach) Lab Data MDM Lab Attestation statement: I reviewed the patient's lab results. 03/28/24 04:44 03/28/24 04:44 Labs: Lab Results 03/28/24 03/28/24 Range/Units 04:44 04:54 WBC 4.7 L (4.8-10.8) X10*3/uL RBC 4.69 (4.60-5.80) X10*6/uL Hgb 11.2 L (14.0-18.0) g/dl Hct 36.3 L (42.0-52.0) % MCV 77.4 L (80.0-98.0) fL MCH 23.9 L (27.0-33.0) pg MCHC 30.9 L (31.0-36.0) g/dl RDW 14.1 (11.0-16.0) % Plt Count 155 L (160-400) X10*3/uL MPV 9.3 L (9.4-12.4) fL Immature Gran % (Auto) 0.4 (0.0-0.4) % Neut % (Auto) 52.3 (45-73) % Lymph % (Auto) 30.1 (20-40) % [place] % (Auto) 14.2 H (2-11) % Eos % (Auto) 2.6 (0-4) % Baso % (Auto) 0.4 (0-2) % Lymph # (Auto) 1.4 (1.2-4.9) X10*3/uL [place] # (Auto) 0.7 (0.1-1.2) X10*3/uL Eos # (Auto) 0.1 (0.0-0.4) X10*3/uL Baso # (Auto) 0.0 (0.0-0.2) X10*3/uL Abs Immat Gran (auto) 0.02 (0.00-0.03) X10*3/uL Absolute Neuts (auto) 2.4 (2.0-8.3) x10*3/uL Absolute Nucleated RBC 0.000 (0.0-0.012) X10*3/uL Nucleated RBC % (auto) 0.0 (0.0-0.2) /100WBC VBG pH 7.24 L (7.32-7.43) VBG pCO2 42 mmHg VBG pO2 38 mmHg VBG HCO3 18 L (22-26) mmol/L VBG O2 Saturation 68.0 % VBG Base Excess -8.4 mmol/L Sodium 142 (135-145) mmol/L Potassium 4.4 (3.3-5.1) mmol/L Chloride 110 H (96-108) mmol/L Carbon Dioxide 19 L (22-29) mmol/L Anion Gap 17 (12-20) BUN 24 H (9-16) mg/dL Creatinine 2.46 H (0.5-1.4) mg/dL Estim Creat Clear Calc 28.8 Estimated GFR 27 Random Glucose 162 H (60-115) mg/dL Lactic Acid 3.6 H* (0.5-2.0) mmol/L Calcium 9.3 (8.4-10.2) mg/dL Magnesium 2.2 (1.6-2.6) mg/dL Total Bilirubin 0.2 (0.0-1.0) mg/dL Direct Bilirubin < 0.2 (0.0-0.5) mg/dL AST 34 (5-37) U/L ALT 22 (0-40) U/L Alkaline Phosphatase 222 H (39-117) U/L Troponin I High Sens 64.1 H (<3.5-35.0) ng/L C-Reactive Protein 3.42 H (< or = 0.50) mg/dL B-Natriuretic Peptide 334 H (<100) pg/mL Total Protein 7.9 (6.5-8.0) g/dL Albumin 3.6 (3.5-5.0) g/dL Lipase 15 (8-78) U/L Procalcitonin 0.09 ng/mL Influenza Type A (PCR) NEGATIVE (Negative) Influenza Type B (PCR) NEGATIVE (Negative) RSV RNA Qual (PCR) NEGATIVE (Negative) SARS-CoV-2 RNA (RT-PCR) POSITIVE A (Negative) Independent Interpretation I performed an independent interpretation of an: EKG and Plain X-Ray (R sided opacity) Interpretation: Rate: 124 Rhythm: regular tachycardia [place]: normal Normal P waves. Normal AMARI. Normal QRS complex. ST T wave : nonspecific ST T wave changes lateral leads no KATHRYN qTC: 549 prior studies: qtc prolonged The study has been interpreted contemporaneously by me. . Radiology Impression Discussion of test interpretation with radiology: I have reviewed the radiologist's reading. Independent Historian Clinical information obtained from an independent historian. History obtained from or confirmed by: EMS External Record Review External record reviewed: Inpatient record Critical Care Time Critical Care Time Critical Care Time: Yes Total Critical Care Time: 60 Attestation: NIPPV, high flow, review of records, IVF, IV antibiotics, repeat assessments I attest to this time spent taking care of the patient Discharge Plan Discharge Clinical Impression: Hypoxia, Acidosis, lactic, COVID-19, Prolonged QT interval COPD (chronic obstructive pulmonary disease) Qualifiers: COPD type: chronic bronchitis Chronic bronchitis type: mucopurulent Qualified Code(s): J41.1 - Mucopurulent chronic bronchitis Pneumonia Qualifiers: Pneumonia type: due to unspecified organism Laterality: right Lung location: middle lobe of lung Qualified Code(s): J18.9 - Pneumonia, unspecified organism Patient Disposition: Admitted As Inpatient Print Language: Georgian
[2024-03-28 04:57] LABS: Venous Blood Gas Refer to POC result
[2024-03-28 04:59] LABS: VBG Base Excess -8.4 mmol/L; VBG HCO3 18 mmol/L (22-26); VBG pCO2 42 mmHg; VBG pH 7.24 (7.32-7.43); VBG pO2 38 mmHg
[2024-03-28 04:59] LABS: MANUAL DIFF FLAG NO
[2024-03-28 05:02] LABS: Basophils Percent Auto 0.4 % (0-2); Eosinophils Absolute Auto 0.1 X10*3/uL (0.0-0.4); Eosinophils Percent Auto 2.6 % (0-4); Hematocrit 36.3 % (42.0-52.0); Hemoglobin 11.2 g/dl (14.0-18.0); Imm Gran Abs Auto 0.02 X10*3/uL (0.00-0.03); Imm Gran Pct Auto 0.4 % (0.0-0.4); Lymphocytes Absolute Auto 1.4 X10*3/uL (1.2-4.9); Lymphocytes Percent Auto 30.1 % (20-40); Mean Corpuscular HGB Conc 30.9 g/dl (31.0-36.0); Mean Corpuscular Hemoglobin 23.9 pg (27.0-33.0); Mean Corpuscular Volume 77.4 fL (80.0-98.0); Mean Platelet Volume 9.3 fL (9.4-12.4); Monocytes Absolute Auto 0.7 X10*3/uL (0.1-1.2); Monocytes Percent Auto 14.2 % (2-11); Neutrophils Absolute Auto 2.4 x10*3/uL (2.0-8.3); Neutrophils Percent Auto 52.3 % (45-73); Platelet Count 155 X10*3/uL (160-400); Red Blood Count 4.69 X10*6/uL (4.60-5.80); Red Cell Distribution Width 14.1 % (11.0-16.0); White Blood Count 4.7 X10*3/uL (4.8-10.8)
--- NOTE | 2024-03-28 05:11 | MHC.EDTECH ---
Patient was biba ,ekg taken and was read by Provider ,blood drawn including both sets of blood culture and lactic acid ,rsv/covid swab collected all sent to lab ,Patient was hooked up to cardiac specialist ,vitals taken and Patient was hooked up to cardiac specialist ,call jarrett within Pt reach .
[2024-03-28 05:12] LABS: Lactic Acid 3.6 mmol/L (0.5-2.0)
[2024-03-28 05:17] LABS: B Type Natriuretic Peptide 334 pg/mL (<100)
[2024-03-28] MEDS: methylPREDNISolone Sod Succ 125 MG/2 ML VIAL 60 MG IVPUSH (05:18)
[2024-03-28] MEDS: cefEPime HCl 1 GM in 0.9 % Sodium Chloride 50 ML IV ×2 (05:18→17:40)
[2024-03-28 05:19] LABS: Troponin-I High Sensitivity 64.1 ng/L (<3.5-35.0)
[2024-03-28 05:24] LABS: Alanine Aminotransferase 22 U/L (0-40); Albumin Level 3.6 g/dL (3.5-5.0); Alkaline Phosphatase 222 U/L (39-117); Anion Gap 17 (12-20); Aspartate Amino Transferase 34 U/L (5-37); Bilirubin Direct < 0.2 mg/dL (0.0-0.5); Bilirubin Total 0.2 mg/dL (0.0-1.0); Blood Urea Nitrogen 24 mg/dL (9-16); C Reactive Protein 3.42 mg/dL (< or = 0.50); Calcium 9.3 mg/dL (8.4-10.2); Carbon Dioxide 19 mmol/L (22-29); Chloride 110 mmol/L (96-108); Creatinine Clr Calc Pharmacy 28.8; Estimated Glomerular Filt Rate 27; Glucose Random 162 mg/dL (60-115); Lipase 15 U/L (8-78); Magnesium 2.2 mg/dL (1.6-2.6); Potassium 4.4 mmol/L (3.3-5.1); Sodium 142 mmol/L (135-145); Total Protein 7.9 g/dL (6.5-8.0)
[2024-03-28] MEDS: Lactated Ringers 500 ML 999 ML IV (05:25)
[2024-03-28 05:38] LABS: Procalcitonin 0.09 ng/mL
[2024-03-28 05:39] LABS: Influenza A PCR NEGATIVE (Negative); Influenza B PCR NEGATIVE (Negative); Resp Syncy Virus RNA Qual PCR NEGATIVE (Negative); SARS COV2 PCR INHOUSE POSITIVE (Negative)
[2024-03-28] MEDS: Albuterol Sulfate 7.5 MG, Albuterol Sulfate (0.083%) 2.5 MG 10 MG INHALE ×2 (06:00→07:13)
[2024-03-28] MEDS: Magnesium Sulfate/H2O 2 GM/50 ML PIGGYBACK IV (06:31)
[2024-03-28 06:58] LABS: Reflex Lactate? Lactic Acid Added
--- NOTE | 2024-03-28 07:20 | PC.RT ---
pt states his trach was decannulated in i February 2024 at [facility]. 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 Pt brought into the ED sob . Stoma remains open pt placed on Bipap per provider with a 10 mg Neb tx. Pt seemed to better so pt was placed on HFNC 40% 55L . Pt stil has alot of air coming out of his stoma therefore RT placed Telfa dresinf over stoma and a tegaderm was placed. Pt states his breathing feel sbetter and another 10 mg neb tx given per Bronch Protocol.Dr Bello did citlali R=Dr. Allen and he is aware of the situation. Pt Pulmonary MD is Dr. Brooks. Pt now is resting comfortable no resp distress noted HR 119 Sats 97% RR 12 BP 118/81.
[2024-03-28] MEDS: vancomycin HCL 1,000 MG, vancomycin HCL 750 MG in 0.9 % Sodium Chloride 500 ML 267.5 MG IV (07:58)
[2024-03-28 08:27] LABS: ~Lactic Acid-LAB USE ONLY 1.7 mmol/L (0.5-2.0)
--- NOTE | 2024-03-28 09:07 | P.PNCC_ITS ---
Critical Care Event Note Summary Date of Service: 03/28/24 Code activated: No Narrative: 63-year-old gentleman with underlying HIV on HAART, hep C, COPD prior admission on 10/02/2023 with prolonged respiratory requiring prolonged hospitalization with tracheostomy after respiratory failure secondary to influenza with superimposed bacterial superinfection complicated by renal failure, now being evaluated for admission for acute hypoxic respiratory failure 09/10 to COVID with metabolic acidosis. On my evaluation - AOx3, O2 sat 100 % on high flow 30%, RR 12-14, SBP in 110's. At this time does not require ICU level of care, please notify for re- evaluation, if patient's condition changes. Critical Care Time (minutes): 0
[2024-03-28 10:33] LABS: Appearance Urine Clear; Color Urine Yellow; Glucose Urine UA Negative (Negative); Leukocyte Esterase Urine Negative (Negative); Nitrite Urine Negative (Negative); PH 5.5 (5.0-9.0); Specific Gravity - Urine 1.015 (1.005-1.025); UMIC TRIGGER UACC YES; Urine Blood Small (1+) (Negative); Urine Ketones Trace mg/dL (Negative); Urine Protein 300 (3+) mg/dL (Neg-Trace)
[2024-03-28 10:44] LABS: Bacteria Urine None Seen (None Seen); RBC Urine 0-2 /HPF (0-2); Squamous Epithelial Cell Urine 0-2 /HPF (0-2); WBC Urine 0-5 /HPF (0-5)
--- NOTE | 2024-03-28 11:48 | PC.NURSE ---
admitting into room to speak with patient, this RN into room pump noted to be off, vanco not running, unknown how long patient has not been recieving medication. ABX restarteed and pump plugged into wall. patient not offering any complaints to this RN.
--- NOTE | 2024-03-28 12:08 | P.HPHOSP_ITS ---
History of Present Illness Date of Service: 03/28/24 Attending physician on admission: Ester Frost Chief Complaint: sob, cough 63-year-old male with history of cocaine and heroin abuse in remission, HIV on HAART therapy, nonischemic cardiomyopathy, COPD, heart failure with reduced ejection fraction, CKD stage 3, TERRY occasionally compliant with CPAP, history of hepatitis-C, mood disorder presented to the ED earlier this morning due to sudden-onset shortness of breath and on a nonproductive cough that started around 02:00 this morning. He states he was unable to catch his breath and reports symptoms are worsening with exertion. Upon EMS arrival, patient was satting in the 60s on room air. He is not oxygen dependent at home. He denies fevers but endorses chills. No sore throat, congestion, abdominal pain, nausea, vomiting, diarrhea, lightheadedness, wheezing, chest pain. He does report recent admission to [facility] for anemia and AMBER, records to be requested. Since arrival, patient has been afebrile but tachycardic to 120, tachypneic. He was initially placed on BiPAP for increased work of breathing and dyspnea but has been weaned to high-flow maintaining oximetry 95-97%. No hypotension. There is a mild leukopenia 4.7, microcytic anemia with H/H 11.2/36.3%, thrombocytopenia of 155. No bandemia. Renal function consistent with baseline, electrolyte levels normal except for chloride 110, CO2 19. VBG showed pH 7.24, pCO2 42, bicarb 18. Initial lactic acid 3.6, improved to 1.7 with IV fluids. Troponin 64.1, CRP 3.42, BNP 334. Procalcitonin 0.09. Urinalysis not indicative of infection. He is positive for COVID-19. In the ED, has received IV LR, cefepime, vancomycin, IV magnesium, methylprednisolone, and DuoNebs. He currently reports feeling improved. Evaluated by ICU and not felt to require ICU level of care. Review of Systems 2 Review of Systems: Yes all other systems are reviewed and are negative [facility] Medical History Myocardial injury Respiratory failure Pneumonia TERRY (obstructive sleep apnea) Pulmonary nodules Hepatitis C HIV disease COPD (chronic obstructive pulmonary disease) Social History Household Members: Unknown / Unable to assess Housing: Unknown / Unable to assess Comment: Sitter at bedside Patient Tobacco Use Status: Tobacco use Unknown Tobacco use type: Cigarette Cigarette Packs Per Day: 1 Cigarettes Per Day: 4 Years Smoked: 30 Years Smoked in Last 30 Days: No Use of substances other than those prescribed or required for medical reasons: No Substance Use Type: Unknown Advance Directives: No Advance Directives Information Provided: Yes Meds Allergies Allergy/AdvReac Type Severity Reaction Status Date / Time No Known Allergies Allergy Unverified 03/28/24 04:31 Active Medications: Current Medications Acetaminophen (Acetaminophen 325 Mg Tablet) 650 mg PO Q6H PRN PRN Reason: Pain, Mild (Pain Scale 1-3), fever or headache Albuterol/Ipratropium (Albuterol/Iprat 2.5/0.5mg 3 Ml Ampul.Neb) 3 ml INHALE RQ4H WHILE AWAKE [facility] Calcium Carbonate (Calcium Carbonate 750 Mg Tab.Chew) 750 mg PO Q4H PRN PRN Reason: Heartburn Dexamethasone Sodium Phosphate (Dexamethasone Sod Phosphate 4 Mg/Ml Vial) 6 mg IVPUSH DAILY [facility] Glucose (Glucose Gel 15 Gm Gel..Gram.) 15 gm PO Q15M PRN; Protocol PRN Reason: per Hypoglycemia Standing Ord. Guaifenesin/Codeine Phosphate (Guaifen/Codeine Sf 200/20/10ml 10 Ml Liquid) 5 ml PO Q4H [facility] Heparin Sodium (Porcine) (Heparin Sodium,Porcine 5,000 Unit/Ml Vial) 5,000 unit SUBCUT Q12H [facility] Cefepime HCl 1 gm/ Sodium (Chloride) 50 mls @ 100 mls/hr IV Q12H [facility] Dextrose (D10) 250 mls @ 750 mls/hr IV Q15M PRN; Protocol PRN Reason: per Hypoglycemia Standing Ord. Insulin Human Lispro (Insulin Lispro 100 Unit/Ml 3 Ml Vial) 0 unit SUBCUT QIDACHS [facility]; Protocol Magnesium Hydroxide (Milk Of Magnesia 30 Ml Oral.Susp) 30 ml PO DAILY PRN PRN Reason: Constipation Melatonin (Melatonin 3 Mg Tablet) 6 mg PO BEDTIME PRN PRN Reason: Insomnia Pharmacy Consult (Consult Rx Vancomycin Dosing) 1 each MISCELLANE DAILY PRN PRN Reason: Consult order Sodium Chloride (0.9 % Sodium Chloride Flush 3 Ml Syringe) 3 ml IVFLUSH QSHIFT [facility] Home Medications ?Medication ?Instructions ?Recorded ?Confirmed ?Last Taken ?Type bictegravir 50 mg-emtricitabine 1 tab PO DAILY 04/24/22 10/02/23 Unknown History 200 mg-tenofovir alafenam 25 mg tablet (Biktarvy) dapagliflozin propanediol 10 mg 10 mg PO DAILY 10/30/22 10/02/23 Unknown History tablet (Farxiga) atorvastatin 40 mg tablet 40 mg PO BEDTIME 04/30/23 10/02/23 Unknown History cholecalciferol (vitamin D3) 1,250 1,250 mcg PO QWEEK 10/02/23 10/02/23 Unknown History mcg (50,000 unit) capsule aspirin 81 mg chewable tablet 1 tab PO BEDTIME 03/28/24 Unknown History dolutegravir 50 mg tablet (Tivicay) 50 mg PO DAILY 03/28/24 Unknown History ipratropium 0.5 mg-albuterol 3 mg 1 inhalation Q6H PRN Shortness Of 03/28/24 Unknown History (2.5 mg base)/3 mL nebulization Breath Or Wheezing soln lamivudine 100 mg tablet 100 mg PO DAILY 03/28/24 Unknown History lamotrigine 25 mg tablet 25 mg PO Q OTHER DAY 03/28/24 Unknown History sodium bicarbonate 650 mg tablet 650 mg PO DAILY 03/28/24 Unknown History Physical Exam 2 Vital Signs and Narrative: Vital Signs: Last Vital Signs Temp 98.1 F 03/28/24 10:22 Pulse 107 H 03/28/24 10:22 Resp 24 H 03/28/24 11:08 BP 115/79 03/28/24 10:22 Pulse Ox 99 03/28/24 10:22 O2 Del Method High Flow Nasal C annula 03/28/24 10:22 O2 Flow Rate 30 03/28/24 05:39 FiO2 30 03/28/24 06:34 BMI result Body Mass Index 22.6 Constitutional - Awake and Alert, No apparent distress Eyes - PERRLA, EOMI Cardiovascular - S1S2, RRR, No edema Respiratory - Normal lung expansion, Normal respiratory effort, No respiratory distress, CTA bilaterally, speaking in full sentences Gastrointestinal - NT / ND; +BS; No rebound or guarding Extremities - no calf tenderness bilaterally, no swelling Skin - Warm/Dry Neurological - Alert & oriented x3 Psychological - Appropriate affect Results Labs 03/28/24 04:44 03/28/24 04:44 Labs: Laboratory Results - last 24 hr 03/28/24 03/28/24 03/28/24 04:44 04:54 08:10 MCV 77.4 L MCH 23.9 L MCHC 30.9 L RDW 14.1 Plt Count 155 L MPV 9.3 L Immature Gran % (Auto) 0.4 Neut % (Auto) 52.3 Lymph % (Auto) 30.1 Barry % (Auto) 14.2 H Eos % (Auto) 2.6 Baso % (Auto) 0.4 Lymph # (Auto) 1.4 Barry # (Auto) 0.7 Eos # (Auto) 0.1 Baso # (Auto) 0.0 Abs Immat Gran (auto) 0.02 Absolute Neuts (auto) 2.4 Absolute Nucleated RBC 0.000 Nucleated RBC % (auto) 0.0 VBG pH 7.24 L VBG pCO2 42 VBG pO2 38 VBG HCO3 18 L VBG O2 Saturation 68.0 VBG Base Excess -8.4 Anion Gap 17 Estim Creat Clear Calc 28.8 Estimated GFR 27 Random Glucose 162 H Lactic Acid 3.6 H* Lactic Acid F/U @ 2Hr 1.7 Calcium 9.3 Magnesium 2.2 Total Bilirubin 0.2 Direct Bilirubin < 0.2 AST 34 ALT 22 Alkaline Phosphatase 222 H Troponin I High Sens 64.1 H C-Reactive Protein 3.42 H B-Natriuretic Peptide 334 H Total Protein 7.9 Albumin 3.6 Lipase 15 Procalcitonin 0.09 Urine Color Urine Appearance Urine pH Ur Specific [place] Urine Protein Urine Glucose (UA) Urine Ketones Urine Blood Urine Nitrite Ur Leukocyte Esterase Urine RBC Urine WBC Ur Squamous Epith Cells Urine Bacteria Hyaline Casts Influenza Type A (PCR) NEGATIVE Influenza Type B (PCR) NEGATIVE RSV RNA Qual (PCR) NEGATIVE SARS-CoV-2 RNA (RT-PCR) POSITIVE A 03/28/24 10:27 MCV MCH MCHC RDW Plt Count MPV Immature Gran % (Auto) Neut % (Auto) Lymph % (Auto) Barry % (Auto) Eos % (Auto) Baso % (Auto) Lymph # (Auto) Barry # (Auto) Eos # (Auto) Baso # (Auto) Abs Immat Gran (auto) Absolute Neuts (auto) Absolute Nucleated RBC Nucleated RBC % (auto) VBG pH VBG pCO2 VBG pO2 VBG HCO3 VBG O2 Saturation VBG Base Excess Anion Gap Estim Creat Clear Calc Estimated GFR Random Glucose Lactic Acid Lactic Acid F/U @ 2Hr Calcium Magnesium Total Bilirubin Direct Bilirubin AST ALT Alkaline Phosphatase Troponin I High Sens C-Reactive Protein B-Natriuretic Peptide Total Protein Albumin Lipase Procalcitonin Urine Color Yellow Urine Appearance Clear Urine pH 5.5 Ur Specific [place] 1.015 Urine Protein 300 (3+) H Urine Glucose (UA) Negative Urine Ketones Trace Urine Blood Small (1+) H Urine Nitrite Negative Ur Leukocyte Esterase Negative Urine RBC 0-2 Urine WBC 0-5 Ur Squamous Epith Cells 0-2 Urine Bacteria None Seen Hyaline Casts 3-5 Influenza Type A (PCR) Influenza Type B (PCR) RSV RNA Qual (PCR) SARS-CoV-2 RNA (RT-PCR) Assessment and Plan (1) Prolonged QT interval: Status: Acute (2) Pneumonia: Qualifiers: Laterality: right Lung location: middle lobe of lung Pneumonia type: d ue to unspecified organism Qualified Code(s): J18.9 - Pneumonia, unspecified organism Status: Acute (3) COVID-19: Status: Acute (4) Acidosis, lactic: Status: Acute (5) Hypoxia: Status: Acute Plan 63-year-old male with history of cocaine and heroin abuse in remission, HIV on HAART therapy, nonischemic cardiomyopathy, COPD, heart failure with reduced ejection fraction, CKD stage 3, TERRY occasionally compliant with CPAP, history of hepatitis-C, mood disorder admitted for COVID 19 with acute respiratory failure and hypoxemic respiratory failure #Acute COVID-19 infection with acute hypoxemic respiratory failure with acute respiratory acidosis -CXR pending but appears to have Right middle/lower lobar pneumonia. +for COVID 19 -VBG with ph 7.24, pco2 42, hco3 18. Weaned from bipap. Continue hiflow. Repeat VBG now -IV decadron 6mg daily -guaifenesin ac -duonebs -ID consult -Follow cbc, cultures #Acute pneumonia with severe sepsis -tachycardic, tachypneic, lactic acidosis 3.6, improved to 1.9. Blood cultures pending. no hypotension -CXR final read pending but appears consistent with r sided pneumonia -iv cefepime (renally adjusted) and vanco (initiated 03/28) given immunocompromised status -ID consult -see above -follow cbc, cultures #Prolonged qtc -avoid qtc prolonging agents -keep K>4, Mg >2 #HIV -last CD4 >500, viral load undetectable -continue HAART -ID consult #Hx polysubstance abuse -previously on methadone but while at SNF given oxycodone. Would like to resume methadone -addiction med consult #COPD -no acute exacerbation -continue home inhalers, duonebs, decadron as above #NICM -continue bb, asa #Mood disorder -continue home meds dvt prophylaxis- heparin full code Pt requires inpt stay at least 2 midnights due to COVID 19 with acute respiratory acidosis and hypoxia on high flow requiring ov vanois, expert consultation, and close monitoring of hemodyanamics Quality Stroke Does the patient have a stroke diagnosis?: No VTE Prior VTE?: No VTE Risk Level:: Medical - moderate - high VTE Device Contraindication: Treatment Not Indicated VTE Drug Contraindication: N/A - Med Ordered
--- NOTE | 2024-03-28 12:20 | PHA.PROG ---
Admission Date/Time: March 28, 2024 12:01 Indication: respiratory infection Weight in k.6 kg Adjusted body weight in K.9 [place] body weight in Kg: Obesity Dosing Indication % IBW: Serum Creatinine - Last 168 Hours 03/28/24 04:44 Creatinine 2.46 H Estimated CrCl and GFR - Last 168 Hours 03/28/24 04:44 Estim Creat Clear Calc 28.8 Estimated GFR 27 Vancomycin Loading Dose: 1750 Current Vancomycin Dosing Regimen: 500 Q24 Vancomycin Monitoring using AUC goal of 400 - 600 range with trough as surrogate marker: 366 Date and Time for next Vancomycin Level to be drawn: 03/30 @0600 Pharmacist Comments on Vancomycin Plan: Getting random after 1 dose of 500 mg to ensure safety vs efficacy due to poor renal function Vancomycin dosing will take advantage of be2 as a clinical decision support tool that uses Bayesian modeling to calculate individual patient's pharmacokinetic parameters and forecast the patient's drug concentration time course with the target goal AUC 24 range of 400 - 600 mg/L/hr.
[2024-03-28 13:09] LABS: VBG Base Excess -5.2 mmol/L; VBG HCO3 20 mmol/L (22-26); VBG pCO2 38 mmHg; VBG pH 7.32 (7.32-7.43); VBG pO2 51 mmHg
[2024-03-28 13:10] LABS: Venous Blood Gas Refer to POC result
[2024-03-28 13:16] LABS: Estimated Average Glucose 111 mg/dL; Hemoglobin A1c % 5.5 % (<6.0)
[2024-03-28] MEDS: Heparin Sodium,Porcine 5,000 UNIT/ML VIAL 5000 UNIT SUBCUT (13:34)
[2024-03-28] MEDS: guaiFEN/Codeine SF 200/20/10ML 10 ML LIQUID 5 ML PO ×2 (13:35→20:15)
[2024-03-28] MEDS: Albuterol/Iprat 2.5/0.5MG 3 ML AMPUL.NEB INHALE ×3 (13:42→20:22)
[2024-03-28] MEDS: dexAMETHasone sod phosphate 4 MG/ML VIAL 6 MG IVPUSH (13:44)
[2024-03-28 14:24] LABS: MRSA Nasal PCR NEGATIVE (Negative); SA Nasal PCR POSITIVE (Negative)
--- NOTE | 2024-03-28 15:27 | PHA.MEDREC ---
Addendum entered by Lexus Dixon [facility] 03/28/24 15:30: Patient also said he's not taking any insulin because he's not a diabetic (no insulin on list from [place] either). Original Note: Pharmacy Consult ? Medication Reconciliation Pharmacy has completed the medication reconciliation. Spoke to patient. Patient was discharged from [facility] in [place] 2 weeks ago and he said his medications haven't changed since then. He said he has been off of Biktarvy but he's supposed to meet with his ID provider tomorrow (03/29/24) to restart it.
[2024-03-28] MEDS: 0.9 % Sodium Chloride Flush 3 ML SYRINGE IVFLUSH (16:15)
[2024-03-28 18:37] LABS: Glucose, Whole Blood 150 mg/dL (60-115)
[2024-03-28 20:44] LABS: Glucose, Whole Blood 180 mg/dL (60-115)
[2024-03-28] MEDS: Insulin Lispro 100 UNIT/ML 3 ML VIAL SUBCUT (22:04)
[2024-03-28] MEDS: Torsemide 20 MG TABLET 40 MG PO (22:05)
[2024-03-28] MEDS: lamoTRIgine 25 MG TABLET PO (22:05)
[2024-03-28] MEDS: Melatonin 3 MG TABLET 6 MG PO (22:05)
--- NOTE | 2024-03-28 23:57 | P.CNID_ITS ---
History of Present Illness Data of Consult Service Date: 03/28/24 Requesting physician: Ester Frost Primary Care Provider: Unknown Physician HPI Reason for consult: shortness of breath He presents with yellow colored sputum from trach and shortness of breath today. He is on high flow. He has COPD and trach and peg 10/2023. He has HIV and his provider is Dr Joan Bravo of [facility]. He has viral load undetectable and CD4 count 554 on . He had been on Biktarvy and renal functioned worsened and apparently is now on Abacavir 600 mg daily,Tivicay 50 mg daily and Lamivudine 100 mg daily but will Tigertext Dr Bravo to be sure. He has OUD and has been on Methadone. He has had Pseudomonas in sputum before. Review of Systems 2 Review of Systems: Yes Unobtainable due to mental status PMFSH Past Medical History Medical History Myocardial injury Respiratory failure Pneumonia TERRY (obstructive sleep apnea) Pulmonary nodules Hepatitis C HIV disease COPD (chronic obstructive pulmonary disease) Family History Family history: reviewed and not pertinent Social History Social History Household Members: Unknown / Unable to assess Housing: Unknown / Unable to assess Comment: Sitter at bedside Patient Tobacco Use Status: Tobacco use Unknown Tobacco use type: Cigarette Cigarette Packs Per Day: 1 Cigarettes Per Day: 4 Years Smoked: 30 Years Substance Use Type: Unknown Meds Allergies Allergy/AdvReac Type Severity Reaction Status Date / Time No Known Allergies Allergy Unverified 03/28/24 04:31 Active Medications: Current Medications Acetaminophen (Acetaminophen 325 Mg Tablet) 650 mg PO Q6H PRN PRN Reason: Pain, Mild (Pain Scale 1-3), fever or headache Albuterol Sulfate (Albuterol Sulfate 90 Mcg 8 Gm Inhaler) 2 puff INHALE Q4H PRN PRN Reason: Wheezing Albuterol/Ipratropium (Albuterol/Iprat 2.5/0.5mg 3 Ml Ampul.Neb) 3 ml INHALE RQ4H WHILE AWAKE [facility] Last Admin: 03/28/24 20:22 Dose: 3 ml Ascorbic Acid (Ascorbic Acid 500 Mg Tablet) 500 mg PO DAILY [facility] Aspirin (Aspirin Enteric Coated 81 Mg Tablet.Dr) 81 mg PO DAILY [facility] Calcium Carbonate (Calcium Carbonate 750 Mg Tab.Chew) 750 mg PO Q4H PRN PRN Reason: Heartburn Dexamethasone Sodium Phosphate (Dexamethasone Sod Phosphate 4 Mg/Ml Vial) 6 mg IVPUSH DAILY [facility] Last Admin: 03/28/24 13:44 Dose: 6 mg Dolutegravir Sodium (Dolutegravir Sodium 50 Mg Tablet) 50 mg PO DAILY [facility] Glucose (Glucose Gel 15 Gm Gel..Gram.) 15 gm PO Q15M PRN; Protocol PRN Reason: per Hypoglycemia Standing Ord. Guaifenesin (Guaifenesin 100 Mg/5 Ml Liquid) 10 ml PO Q4H PRN PRN Reason: Cough Guaifenesin/Codeine Phosphate (Guaifen/Codeine Sf 200/20/10ml 10 Ml Liquid) 5 ml PO Q4H [facility] Last Admin: 03/28/24 20:15 Dose: 5 ml Heparin Sodium (Porcine) (Heparin Sodium,Porcine 5,000 Unit/Ml Vial) 5,000 unit SUBCUT Q12H [facility] Last Admin: 03/28/24 13:34 Dose: 5,000 unit Cefepime HCl 1 gm/ Sodium (Chloride) 50 mls @ 100 mls/hr IV Q12H [facility] Last Infusion: 03/28/24 18:49 Dose: Infused Dextrose (D10) 250 mls @ 750 mls/hr IV Q15M PRN; Protocol PRN Reason: per Hypoglycemia Standing Ord. Vancomycin HCl 500 mg/ Sodium (Chloride) 110 mls @ 110 mls/hr IV Q24H [facility] Insulin Human Lispro (Insulin Lispro 100 Unit/Ml 3 Ml Vial) 0 unit SUBCUT QIDACHS [facility]; Protocol Last Admin: 03/28/24 22:04 Dose: 2 unit Lamotrigine (Lamotrigine 25 Mg Tablet) 25 mg PO BID [facility] Last Admin: 03/28/24 22:05 Dose: 25 mg Magnesium Hydroxide (Milk Of Magnesia 30 Ml Oral.Susp) 30 ml PO DAILY PRN PRN Reason: Constipation Melatonin (Melatonin 3 Mg Tablet) 6 mg PO BEDTIME PRN PRN Reason: Insomnia Last Admin: 03/28/24 22:05 Dose: 6 mg Melatonin (Melatonin 3 Mg Tablet) 9 mg PO BEDTIME PRN PRN Reason: sleep Metoprolol Tartrate (Metoprolol Tartrate 25 Mg Tablet) 25 mg PO DAILY [facility]; Protocol Non-Formulary Medication (Abacavir) 600 mg PO DAILY [facility] Non-Formulary Medication (Lamivudine) 100 mg PO DAILY [facility] Non-Formulary Medication (Magnesium Glycinate) 100 mg PO BEDTIME [facility] Last Admin: 03/28/24 22:06 Dose: Not Given Oxycodone HCl (Oxycodone Hcl Immed Release 5 Mg Tablet) 5 mg PO Q6H PRN PRN Reason: Pain, Severe (Pain Scale 7-10) Pantoprazole Sodium (Pantoprazole Sodium 20 Mg Tablet.Dr) 40 mg PO BID [facility] Pharmacy Consult (Consult Rx Vancomycin Dosing) 1 each MISCELLANE DAILY PRN PRN Reason: Consult order Quetiapine Fumarate (Quetiapine Fumarate 100 Mg Tablet) 100 mg PO BEDTIME [facility] Last Admin: 03/28/24 22:08 Dose: Not Given Simethicone (Simethicone 80 Mg Tab.Chew) 80 mg PO Q6H PRN PRN Reason: BLOADING Sodium Bicarbonate (Sodium Bicarbonate 650 Mg Tablet) 650 mg PO DAILY [facility] Sodium Chloride (0.9 % Sodium Chloride Flush 3 Ml Syringe) 3 ml IVFLUSH QSHIFT [facility] Last Admin: 03/28/24 16:15 Dose: 3 ml Tiotropium [place] (Tiotropium [place] 2.5 Mcg 1 Puff/2.5 Mcg Mist.Inhal) 2 puff INHALE RDAILY [facility] Torsemide (Torsemide 20 Mg Tablet) 40 mg PO BID [facility] Last Admin: 03/28/24 22:05 Dose: 40 mg Vitamin D (Cholecalciferol (Vitamin D3) 25 Mcg Tablet) 50 mcg PO DAILY [facility] Home Medications ?Medication ?Instructions ?Recorded ?Confirmed ?Last Taken ?Type abacavir 20 mg/mL oral solution 600 mg PO DAILY 03/28/24 03/28/24 03/27/24 History albuterol sulfate 90 mcg/actuation 2 puff inhalation Q4H PRN Wheezing 03/28/24 03/28/24 Unknown History aerosol inhaler ascorbic acid (vitamin C) 500 mg 500 mg PO DAILY 03/28/24 03/28/24 03/27/24 History tablet (Vitamin C) aspirin 81 mg tablet,delayed 81 mg PO DAILY 03/28/24 03/28/24 03/27/24 History release cholecalciferol (vitamin D3) 25 50 mcg PO DAILY 03/28/24 03/28/24 03/27/24 History mcg (1,000 unit) tablet (Vitamin D3) dolutegravir 50 mg tablet (Tivicay) 50 mg PO DAILY 03/28/24 03/28/24 03/27/24 History guaifenesin 100 mg/5 mL oral liquid 200 mg PO Q4H PRN Cough 03/28/24 03/28/24 Unknown History lamivudine 100 mg tablet 100 mg PO DAILY 03/28/24 03/28/24 03/27/24 History lamotrigine 25 mg tablet 25 mg PO BID 03/28/24 03/28/24 03/27/24 History magnesium glycinate 100 mg (as 100 mg PO BEDTIME 03/28/24 03/28/24 03/27/24 History glycinate) tablet melatonin 3 mg tablet 9 mg PO BEDTIME PRN sleep 03/28/24 03/28/24 03/27/24 History metoprolol tartrate 25 mg tablet 25 mg PO DAILY 03/28/24 03/28/24 03/27/24 History oxycodone 5 mg tablet 5 mg PO Q6H PRN Pain 03/28/24 03/28/24 Unknown History pantoprazole 40 mg tablet,delayed 40 mg PO BID 03/28/24 03/28/24 03/27/24 History release quetiapine 25 mg tablet 100 mg PO BEDTIME 03/28/24 03/28/24 03/27/24 History simethicone 80 mg chewable tablet 80 mg PO Q6H PRN BLOADING 03/28/24 03/28/24 Unknown History sodium bicarbonate 650 mg tablet 650 mg PO DAILY 03/28/24 03/28/24 03/27/24 History tiotropium bromide 18 mcg capsule 1 cap inhalation DAILY 03/28/24 03/28/24 03/27/24 History with inhalation device (Spiriva with HandiHaler) torsemide 40 mg tablet 40 mg PO BID 03/28/24 03/28/24 03/27/24 History Physical Exam 2 Vital Signs: Vital Signs: Last Vital Signs Temp 97.9 F 03/28/24 20:03 Pulse 97 03/28/24 22:45 Resp 14 03/28/24 23:38 BP 112/77 03/28/24 22:45 Pulse Ox 97 03/28/24 22:45 O2 Del Method High Flow Nasal C annula 03/28/24 22:45 O2 Flow Rate 50 03/28/24 20:03 FiO2 30 03/28/24 06:34 BMI result Body Mass Index 22.6 Const: General: cooperative HEENT: Head: Yes normal to inspection Face and sinus: Yes normal facial exam Mouth: Normal oral and palatal mucosa present Teeth and gingiva: d entition normal Eyes: General: appearance normal, both eyes and all related structures P upils: Equal, round and reactive pupils present Resp: Effort & Inspection: normal respiratory effort Cardio: Rate: regular rate Rhythm: regular rhythm GI: Palpation (GI): Soft to palpation and nontender : General: Yes no CVA tenderness Back/Spine/Pelvis: Back: no CVA tenderness Skin: General skin exam: no rashes or lesions noted Neuro: General: moves all extremities Cranial nerves: Yes Equal, round and reactive pupils present Extrem: General: Yes normal to inspection Psych: Other: somnolent Results Labs 03/28/24 04:44 03/28/24 04:44 Labs: Short CBC 03/28/24 Range/Units 04:44 WBC 4.7 L (4.8-10.8) X10*3/uL Hgb 11.2 L (14.0-18.0) g/dl Hct 36.3 L (42.0-52.0) % Plt Count 155 L (160-400) X10*3/uL BMP 03/28/24 04:44 Sodium 142 Potassium 4.4 Chloride 110 H Carbon Dioxide 19 L BUN 24 H Creatinine 2.46 H Calcium 9.3 Liver Function 03/28/24 Range/Units 04:44 Total Bilirubin 0.2 (0.0-1.0) mg/dL Direct Bilirubin < 0.2 (0.0-0.5) mg/dL AST 34 (5-37) U/L ALT 22 (0-40) U/L Alkaline Phosphatase 222 H (39-117) U/L Albumin 3.6 (3.5-5.0) g/dL Urine 03/28/24 Range/Units 10:27 Urine Color Yellow Urine Appearance Clear Urine pH 5.5 (5.0-9.0) Ur Specific [place] 1.015 (1.005-1.025) Urine Protein 300 (3+) H (Neg-Trace) mg/dL Urine Glucose (UA) Negative (Negative) mg/dL Assessment and Plan (1) Pneumonia: Qualifiers: Laterality: right Lung location: middle lobe of lung Pneumonia type: d ue to unspecified organism Qualified Code(s): J18.9 - Pneumonia, unspecified organism Status: Acute (2) Hypoxia: Status: Acute (3) Acute on chronic renal insufficiency: Status: Acute (4) HIV (human immunodeficiency virus infection): Status: Acute (5) COVID-19: Status: Acute Plan Agree with Cefepime and Vancomycin for possible pneumonia due to these agents,possible 5-7 days. Agree with steroids for COVID unknown duration for 10 days if remains hypoxic. Agree with Abacavir,lamivudine and tivicay unless [facility] ID indicates otherwise.
[2024-03-29] VITALS (13 sets, daily range): BP systolic 106–132; BP diastolic 58–90; PULSE 78–98; RESP 18–20; TEMP 36.2–36.8; O2SAT 92–100; BMI 23.2
--- NOTE | 2024-03-29 | ECG_ITS ---
Test Reason : qt check Blood Pressure : / mmHG Vent. Rate : 086 BPM Atrial Rate : 086 BPM P-R Int : 212 ms QRS Dur : 074 ms QT Int : 432 ms P-R-T Axes : 082 009 094 degrees QTc Int : 516 ms Sinus rhythm with 1st degree A-V block Septal infarct , age undetermined T wave abnormality, consider anterior ischemia Prolonged QT Abnormal ECG When compared with ECG of 29-MAR-2024 17:08, QT has shortened Referred By: Ester Frost Electronically Signed By:JULITA IRVING
--- NOTE | 2024-03-29 | ECG_ITS ---
Test Reason : recheck QT Blood Pressure : / mmHG Vent. Rate : 087 BPM Atrial Rate : 087 BPM P-R Int : 216 ms QRS Dur : 078 ms QT Int : 448 ms P-R-T Axes : 084 005 076 degrees QTc Int : 539 ms Sinus rhythm with 1st degree A-V block Septal infarct , age undetermined T wave abnormality, consider anterior ischemia Prolonged QT Abnormal ECG When compared with ECG of 24-NOV-2023 07:56, T wave inversion now evident in Anterior leads Referred By: Ester Frost Electronically Signed By:JULITA IRVING
[2024-03-29] MEDS: 0.9 % Sodium Chloride Flush 3 ML SYRINGE IVFLUSH ×3 (00:51→18:02)
[2024-03-29] MEDS: guaiFEN/Codeine SF 200/20/10ML 10 ML LIQUID 5 ML PO ×6 (00:51→22:05)
[2024-03-29] MEDS: Heparin Sodium,Porcine 5,000 UNIT/ML VIAL 5000 UNIT SUBCUT ×2 (01:00→11:03)
[2024-03-29] MEDS: cefEPime HCl 1 GM in 0.9 % Sodium Chloride 50 ML IV ×2 (05:46→18:01)
[2024-03-29 06:30] LABS: MANUAL DIFF FLAG NO
[2024-03-29 06:35] LABS: Basophils Percent Auto 0.2 % (0-2); Hematocrit 35.6 % (42.0-52.0); Hemoglobin 11.2 g/dl (14.0-18.0); Imm Gran Abs Auto 0.02 X10*3/uL (0.00-0.03); Imm Gran Pct Auto 0.4 % (0.0-0.4); Lymphocytes Absolute Auto 0.7 X10*3/uL (1.2-4.9); Mean Corpuscular HGB Conc 31.5 g/dl (31.0-36.0); Mean Corpuscular Hemoglobin 23.7 pg (27.0-33.0); Mean Corpuscular Volume 75.4 fL (80.0-98.0); Monocytes Absolute Auto 0.5 X10*3/uL (0.1-1.2); Monocytes Percent Auto 10.4 % (2-11); Neutrophils Absolute Auto 3.5 x10*3/uL (2.0-8.3); Platelet Count 174 X10*3/uL (160-400); Red Blood Count 4.72 X10*6/uL (4.60-5.80); Red Cell Distribution Width 13.6 % (11.0-16.0); White Blood Count 4.7 X10*3/uL (4.8-10.8)
[2024-03-29 07:04] LABS: Anion Gap 13 (12-20); Blood Urea Nitrogen 35 mg/dL (9-16); Calcium 9.7 mg/dL (8.4-10.2); Carbon Dioxide 24 mmol/L (22-29); Chloride 107 mmol/L (96-108); Estimated Glomerular Filt Rate 33; Glucose Random 116 mg/dL (60-115); Potassium 4.7 mmol/L (3.3-5.1); Sodium 139 mmol/L (135-145)
[2024-03-29 07:49] LABS: Glucose, Whole Blood 100 mg/dL (60-115)
--- OUTSIDE RECORDS SUMMARY | 2024-03-29 08:03 | XMS_ITS | Continuity of Care Document ---
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 Name Role Phone Leola ROSS, Loreta Primary Care Physician [phone] Encounter [facility] Date(s): 01/21/23 - 01/25/[address] [id number] Encounter Diagnosis Acute respiratory failure(Final) - 01/22/23 Discharge Disposition: A-D/C Home Attending Physician: Eric Mcgraw DO Admitting Physician: Jermain Griffith MD Referring Physician: Not on Staff, Referring MD Allergies, Adverse Reactions, Alerts No Known Allergies Immunizations Given and Recorded Vaccine Date Status Refusal Reason tetanus-diphtheria toxoids (Td) 11/11/22 Given [id number] 12y+ bivalent booster vax 08/25/22 Recorded zoster vaccine, inactivated 1 05/20/22 Given zoster vaccine, inactivated 2 01/21/22 Given SARS-CoV-2 mRNA ([id number]) vax 12/10/21 Recorded pneumococcal 23-valent vaccine 09/10/21 Given influenza virus vaccine, inactivated 08/06/21 Devin rded influenza virus vaccine, inactivated 06/14/19 Give n influenza virus vaccine, inactivated 06/12/15 Devin rded influenza virus vaccine, inactivated 07/04/14 Devin rded SARS-CoV-2 (COVID-19) mRNA-1273 vaccine 08/06/21 R ecorded SARS-CoV-2 (COVID-19) mRNA-1273 vaccine 01/10/21 R ecorded SARS-CoV-2 (COVID-19) mRNA-1273 vaccine 12/04/20 R ecorded pneumococcal 13-valent vaccine 12/08/12 Recorded pneumococcal 13-valent vaccine 12/07/12 Recorded tetanus/diphtheria/pertussis, acel(Tdap) 12/08/12 Recorded tetanus/diphtheria/pertussis, acel(Tdap) 12/07/12 Recorded 1Result Comment: Dose#2 2Result Comment: Shingrix dose#1 Medications Albuterol (Eqv-ProAir HFA) Inhalation, Every 6 hours, 0 Refills, Maintenance, 01/21/22 11:49:00 EDT, Partial fill upon patientrequest if the prescription is for a schedule II opioid drug. Start Date: 01/21/22 Status: Ordered apixaban Starter Pack 5 mg oral tablet 2 tablet = 10 mg, By Mouth, 2 times a day, followed by 1 tablet by mouth twice daily for 23 days, #74 tablet, 0 Refills, Maintenance, 01/26/23 9:00:00 EDT, [facility], Partial fill upon patient request if the prescription is for a sched... Start Date: 01/26/23 Stop Date: 02/02/23 Status: Ordered Biktarvy oral tablet 1 tablet, By Mouth, Daily, [place] tableta todos [place] mei., # 30 tablet, 5 Refills, Maintenance, 12/04/22 12:22:00 EDT, [facility]/pharmacy #[id number], 1 tablet By Mouth Daily,x30 days,Instr:[place] tableta todos [place] mei., 73.8, kg, 08/31/22 15:22:00 EST, Dry... Start Date: 12/04/22 Stop Date: 06/02/23 Status: Ordered carvedilol 6.25 mg oral tablet See Instructions, 1 tablet By Mouth 2 times a day, # 60 tablet, Refills 2, Tot. Refills 2, Maintenance, 10/14/22 13:17:00 EST, Instructions Replace Required Details, Route to Pharmacy Electronically,[facility]/pharmacy #[id number], Partial fill upon patient reque... Start Date: 10/14/22 Status: Ordered carvedilol 6.25 mg oral tablet 6.25 mg, Tablet, By Mouth, Hold for: SBP < 90, HR < 60, 01/25/23 9:00:00 EDT Start Date: 01/25/23 Stop Date: 01/25/23 Status: Completed Entresto 49 mg-51 mg oral tablet See Instructions, 1 tablet By Mouth 2 times a day. note dose increase, # 60 tablet, 2 Refills, Maintenance, 11/18/22 13:27:00 EDT, [facility]/pharmacy #[id number], Partial fill upon patient request if the prescription is for a schedule II opioid drug., 1 tablet By... Start Date: 11/18/22 Status: Ordered Farxiga 10 mg oral tablet See Instructions, take 1 tablet By Mouth Daily., # 30 tablet, 2 Refills, Maintenance, 10/14/22 13:22:00 EST, [facility]/pharmacy #[id number], new start farxiga, 73.8, kg, 08/31/22 15:22:00 EST, Dry Weight Start Date: 10/14/22 Status: Ordered Lipitor 40 mg oral tablet 1 tablet = 40 mg, By Mouth, Daily at bedtime, 0 Refills, Maintenance, 01/25/23 15:38:00 EDT, Tablet, Partial fill upon patient request if the prescription is for a schedule II opioid drug. Start Date: 01/25/23 Status: Ordered methadone 10 mg/5 mL oral solution = 50 mg, By Mouth, Daily, oral solution; goes to [facility], 0 Refills, Maintenance, 08/31/22 16:53:00 EST, Partial fill upon patient request if the prescription is for a schedule II opioid drug. Start Date: 08/31/22 Status: Ordered montelukast 4 mg oral granule 1 each = 4 mg, By Mouth, Daily, # 30 each, 0 Refills, Maintenance, 01/21/22 11:49:00 EDT, Granule, Partial fill upon patient request if the prescription is for a schedule II opioid drug. Start Date: 01/21/22 Status: Ordered Spiriva = 18 mcg, Inhalation, Daily, 0 Refills, Maintenance, 05/20/22 10:53:00 EDT, Partial fill upon patient request if the prescription is for a schedule II opioid drug. Start Date: 05/20/22 Status: Ordered spironolactone 25 mg oral tablet 12.5 mg, 0.5, tablet, By Mouth, Daily, take 1/2 tablet(12.5mg) by mouth once daily, # 15 tablet, Refills 2, Tot. Refills 2, Maintenance, 12/28/22 12:31:00 EDT, Route to Pharmacy Electronically, [facility]/pharmacy #[id number], [facility] : note dose decrease please cance... Start Date: 12/28/22 Status: Ordered Results Orders for Microbiology Reports Name Date Blood Culture 01/21/23 Blood Culture #2 01/21/23 Microbiology Reports TEST:Blood Culture, Second Order STATUS:Unauthenticated BODY SITE: SOURCE:Blood COLLECTED DATE/TIME:01/21/23 1:51 PM Blood Culture, Second Order SPECIMEN DESCRIPTION : BLOOD NO SITE SPECIAL REQUESTS : NONE CULTURE : NO GROWTH 4 DAYS REPORT STATUS : PRELIMINARY REPORT TEST:Blood Culture STATUS:Unauthenticated BODY SITE: SOURCE:Blood COLLECTED DATE/TIME:01/21/23 1:49 PM Blood Culture SPECIMEN DESCRIPTION : BLOOD NO SITE SPECIAL REQUESTS : NONE CULTURE : NO GROWTH 4 DAYS REPORT STATUS : PRELIMINARY REPORT Radiology Reports * Exam Date Time Procedure Performing Provider Status 01/21/23 11:[address] Angio Chest Darlin Buchanan; Auth (Ve rified) Notes: (CT Angio Chest) Reason For Exam: dyspnea;Other: RESULT: CT Angio Chest EXAMINATION: CT Angio Chest Reason: dyspnea. Clinical Question(s): Pulmonary Embolism. TECHNIQUE: Spiral CTA of the chest was performed after rapid IV contrast administration without cardiac gating, triggered by an YUSUF on the main pulmonary artery. Images are formatted in multiple planes using 2-D multiplanar and 3-D maximum intensity projection. 70 cc of Omnipaque 300 was administered intravenously. This study was performed without oral contrast. Weight-based protocol using automatic tube modulation was used to optimize exposure parameters. CTDIvol Body: 8.57 mGy, DLP Body: 423 mGy*cm. COMPARISONS: None. ANGIOGRAPHIC FINDINGS: Small filling defects in the right upper lobe apical segmental arteries. (404:187, 195, 198; 404:85, 87). There is distal reconstitution and these arteries. No acute aortic abnormality seen on this study performed without cardiac gating. NON-ANGIOGRAPHIC FINDINGS: Digital Marketing Specialist View Findings, Lines and Tubes: None. Trachea and Airways: Trace debris in the proximal trachea (405:24) and right (405:41) and left (405:43) mainstem bronchi, likely mucous. Lungs and Pleura: Severe bilateral upper lobe predominant paraseptal and centrilobular emphysema. Streaky, slightly nodular opacity most prominent in the posterior aspect of the right lower lobe. Dense opacity with adjacent atelectasis and a few intervening air bronchograms in the lateral aspect ofthe left upper lobe (405:38). No effusion or pneumothorax. Mediastinum and drew: No mass or hematoma. No mediastinal or hilar lymphadenopathy. No esophageal abnormality. Partially imaged thyroid is unremarkable. Heart: Heart is normal in size. No pericardial effusion. Mild coronary artery calcification. Chest Wall Soft Tissues: Normal. Diaphragm and upper abdomen: No significant abnormality. Bones: No acute abnormality. IMPRESSION: Small filling defects in the right upper lobe apical segmental branches with apparent distal reconstitution, reflecting pulmonary embolism. Extensive streaky, slightly nodular opacities in the posterior aspect of the right lower lobe. Dense opacity in the lateral aspect of the left upper lobe. Findings concerning for multifocal pneumoniawith underlying chronic interstitial lung disease. Results were relayed by telephone by Dr. Mills to Angle Gama RN on 01/22/2023 12:17 AM. I have personally reviewed the images and I agree with this report. WSN: [id number] Ordering Physician: Eric Callaway Dictated By: Hilario Mills MD Dictated Date/Time: 01/22/23 6:41 am Reviewed By: Florian Bennett MD Signed By: Florian Bennett MD Signed Date/Time: 01/22/23 6:46 am Transcribed By: TRU Transcribed Date/Time: 01/22/23 0:27 am * Exam Date Time Procedure Performing Provider Status 01/21/23 1:21 PM Chest Portable Laure Blanchard; Auth (Verified) Notes: (Chest Portable) Reason For Exam: COPD RESULT: Chest Portable Chest Portable Reason: COPD; Clinical Question(s): Asthma COMPARISON: 01/16/2023, 08/31/2022 FINDINGS: LINES AND TUBES: None. LUNGS AND PLEURA: Diffusely increased hazy opacity throughout the lower half of the lateral right chest superimposed on chronic interstitial lung disease. No pleural effusion. No pneumothorax. HEART, MEDIASTINUM AND DREW: Unchanged. BONES AND SOFT TISSUES: No acute abnormality. IMPRESSION: Increased opacity lower half right lung suspicious for pneumonia. An actionable finding (Document Only) has been communicated via the mcTEL system on 01/21/2023 1:38 PM, Message ID [id number]. WSN: [id number] Ordering Physician: Katy Carpenter Dictated By: Yung Urias MD Dictated Date/Time: 01/21/23 1:38 pm Reviewed By: Yung Urias MD Signed By: Yung Urias MD Signed Date/Time: 01/21/23 1:38 pm Transcribed By: TRU Transcribed Date/Time: 01/21/23 1:35 pm Vital Signs Most recent to oldest [Reference Range]: 1 2 3 Height 172.7 cm (01/21/23 5:15 PM) Weight 69.1 kg (01/24/23 5:36 AM) 67.2 kg (01/21/23 5:15 PM) Oxygen Saturation [94-100 %] 96 % (01/25/23 3:55 PM) 95 % (01/25/23 3:45 PM) 94 % (01/25/23 3:30 PM) Pulse Rate [55-90 bpm] 75 bpm (01/25/23 3:00 PM) 74 bpm (01/25/23 12:00 PM) 78 bpm (01/25/23 10:02 AM) Body Mass Index [18.5-24.99 kg/m2] 22.53 kg/m2 (01/21/23 5:15 PM) Blood Pressure [90-138/55-84 mm Hg] 135/86mm Hg (01/25/23 3:55 PM) 135/86mm Hg (01/25/23 3:45 PM) 133/111mm Hg (01/25/23 3:30 PM) Respiratory Rate [16-30 br/min] 16 br/min (01/25/23 3:55 PM) 17 br/min (01/25/23 3:45 PM) 13 br/min *L* (01/25/23 3:30 PM) Temperature [96.8-100.4 DegF] 98.1 DegF (01/25/23 3:00 PM) 98 DegF (01/25/23 12:00 PM) 98.5 DegF (01/25/23 7:00 AM) Liters per Minute 4 L/min (01/24/23 11:00 AM) 4 L/min (01/24/23 7:00 AM) 4 L/min (01/24/23 4:00 AM) Mode of Delivery (Oxygen) Room air (01/25/23 3:55 PM) Room air (01/25/23 3:45 PM) Room air (01/25/23 3:30 PM) Blood pressure sites Arm, right (01/25/23 7:00 AM) Arm, left (01/25/23 4:00 AM) Arm, left (01/25/23 12:00 AM) Temperature Route Oral (01/25/23 3:00 PM) Oral (01/25/23 12:00 PM) Oral (01/25/23 7:00 AM) Dry Weight 69 kg (01/21/23 5:15 PM) Weight Obtained Via Bed scale (01/21/23 5:15 PM) Dry Weight Obtained Via Patient/family s tated (01/21/23 5:15 PM) Social History Social History Type Response Tobacco Use: 4 or less cigar ettes(less than 1/4 pack)/day in last 30 days. Interested in cessation: No. No, 39 Number of years:. Cessation attempts: 4. Tobacco user in household: No. Sex Cardiac catheterization study * Event Display: Cardiac Radio Broadcaster Report Authored Date: Cardiac Diagnostic Report Demographics Patient Name HOLLEY MCMANUS Gender Male [employer] N [id number] Room Number D627 Height 68 inches Date of 1960 Weight 149.94 pounds Age 62 year(s) BSA 1.81 m2 Accession Number [id number] BMI 22.8 kg/m2 Referring Physician Loreta Bhagat MD Date of Study 01/25/2023 Perez Angel MD Performing Physician Kalyani Caballero MD Fellow Interventional Physician Procedure Procedure Type Diagnostic procedure:Coronary Angiography with [facility] Miscellaneous:ULTRASOUND GUIDANCE ACC Diagnostic Catheterization Status:Urgent Indications Indications: Cardiomyopathy and Congestive Heart Failure. Clinical History Admission Medications + +------+-------+ + + +---------+ !Medication !Dosage!Times !Last !Last !Administered !Comments ! ! ! !Per Day!Delivery !Delivery ! ! ! ! ! ! !Date !Time ! ! ! + +------+-------+ + + +---------+ !Aspirin (any)!81 mg ! !01/25/2023 !00:00 !Yes ! ! + +------+-------+ + + +---------+ Clinical Evaluation Leading to Procedure - The patient was diagnosed with a heart failure condition. 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 ACC Risk Factors The patient risk factors include:chronic lung disease, last creatinine: 1.2 mg/dl, creatinine clearance: 60.61 ml/min and prior heart failure. Additional Clinical History: mall filling defects in the right upper lobe apical segmental branches with apparent distal reconstitution, reflecting pulmonary embolism. Extensive streaky, slightly nodular opacities in the posterior aspect of the right lower lobe. Dense opacity in the lateral aspect of the left upper lobe. Findings concerning for multifocal pneumonia with underlying chronic interstitial lung disease. Results were relayed by telephone by Dr. Mills to Angle Gama RN on 01/22/2023 12:17 AM. I have personally reviewed the images and I agree with this report. WSN: [id number] 62-year-old gentleman with past medical history of heart failure with reduced ejection fraction newly diagnosed in August 2022 (echo showed EF 20-25% with basal to third of the LV severely hypokinetic to akinetic with sparing of the apex), hepatitis C status posttreatment, HIV on treatment, COPD not on home oxygen, CKD stage III with baseline creatinine 1.5-2.0, found to have prior polysubstance abuse currently on methadone and not using any cocaine anymore for the last couple of years presented to the hospital on January 21 for worsening shortness of breath found to have pulmonary embolism, and uptrending troponin which was 41 on admission, 228, 328, EKG with anteroseptal Q waves, repeat echo with EF 25 to 30% and severe hypokinesis of the basal segments for which cardiology was consulted. Patient reported that at baseline and does not have any shortness of breath and can walk with long distances, climb up more than 2 flights of stairs with no limiting dyspnea. In addition during his last cardiology visit in November he was reported no limitation secondary to dyspnea or chest pain. Ordering Physician: Eric Callaway Signature Line Dictated By: Hilario Mills MD Dictated Date/Time: 01/22/23 6:41 am Summary Severely reduced LV systolic function (EF 25-30%). Severe hypokinesis of the basal segments with relative preservation of apical wall motion. Grade I (mild) LV diastolic dysfunction with impaired relaxation. Normal LV cavity size. Normal LV wall thickness. Normal RV systolic function. Normal RV size. No clinically significant valvular abnormalities. Comparison Comparison is made to the study of August 31, 2022. Slightly improved LV systolic function. Signature Procedure Data Procedure Date Date: 01/25/2023Start: 14:21End: 15:05 The procedure was explained in detail to the patient. Risks, complications and alternative treatments were reviewed. Written consent was obtained. Entry Locations - Retrograde Percutaneous access was performed through the Right Radial artery. A 6 Fr sheath was inserted. Hemostasis was successfully obtained using TR Band. Closure Comments: 14 cc's. Procedure Medications - Versed (Midazolam) I.V. 1 mg. - Fentanyl I.V. 50 mcg. - Lidocaine 2% S.C. Right Wrist 3 ml. - Versed (Midazolam) I.V. 0.5 mg. - Fentanyl I.V. 25 mcg. - Heparin I.V. 4000 units. Sedation: My intra-service moderate sedation time was: from 1452 to 1502. Refer to procedural log for detailed chronological information. Contrast Material - Omnipaque 30 ml Diagnostic Catheters - A5F JR 4.0 DxTERITY DIAGNOSTIC CATHETERwas used for: Left heart catheterization. - A5F JR 4.0 DxTERITY DIAGNOSTIC CATHETERwas used for: Right coronary angiography. - A5F JL 3.5 DXTERITY DIAGNOSTIC CATHETERwas used for: Left coronary angiography. Fluoroscopy Time: Diagnostic: 4:20 minutes. Total: 4:20 minutes. Fluoroscopy Dose: Diagnostic: 109 mGy. Total: 109 mGy. Dose Area Product:Diagnostic: 30061 mGy/cm2. Total: 35744 mGy/cm2. Dose Area Product:Diagnostic: 1160 ??Gy/m2. Total: 1160 ??Gy/m2. Angiographic Findings Cardiac Arteries and Lesion Findings LMCA: Normal. LAD: Lesion in Mid LAD: Mid subsection.35% stenosis 6 mm length. Pre procedure GREG III flow was noted. Good runoff was present.The lesion was discrete and eccentric.The lesion showed moderate angulation and moderate tortuosity. LCx: Lesion in Prox CX: Proximal subsection.20% stenosis 9 mm length. Pre procedure GREG III flow was noted. Good runoff was present.The lesion was discrete and eccentric.The lesion showed with smooth contour. RCA: Minimal luminal irregularities. Hemodynamics Condition: Rest O2 Consumption: Estimated: 207.92Heart Rate: 64 bpm Pressures (mmHg) +--------+ + !Site !Pressure ! +--------+ + !R Radial!120/69 (86)! +--------+ + !R Radial!126/70 (90)! +--------+ + !R Radial!128/71 (90)! +--------+ + !LV !92/7 ,10 ! +--------+ + !AO !97/69 (84) ! +--------+ + !LV !93/8 ,10 ! +--------+ + Valve Gradients and Areas +------+----+----+----+-----+----+------+ !Valve !Peak!Mean!Area!Index!Flow!Source! +------+----+----+----+-----+----+------+ !Aortic!0 !0 ! ! ! ! ! +------+----+----+----+-----+----+------+ !Aortic!0 !0 ! ! ! ! ! +------+----+----+----+-----+----+------+ Shunts Oxygen Values O2 Consumption 207.92 Interventional Procedure Conclusions Diagnostic Summary There is no significant gradient on pullback across the aortic valve. Successful hemostasis of the right radial artery using a radial compression device . Normal LV end-diastolic pressure. There is non-obstructive coronary disease with no more than moderate disease as described above. Diagnostic Recommendations Risk factor modification according to this available evidence. Continue to maximize medical therapy. Further care per primary team to assess underlying cause of nonischemic cardiomyopathy. ACC Diagnostic Recommendations: Medical therapy and/or counseling. Complications:None. Signatures * Event Display: Cardiac Radio Broadcaster Report Authored Date: Consult note * Morgan ROSS, Momo: PERFORM Event Display: Consult Authored Date: Patient: ??YONATHAN BABB ? Age:??62 Years?Sex:??Male?:??1960?? Chief Complaint/Reason for Consultation Hypoxic respiratroy failure History of Present Illness This is a case of a 62-year-old male patient with a history of HIV on Biktarvy, hepatitis C status posttreatment with Jennifer, COPD, history of opioid use currently on methadone follows with Dr. Brooks, cardiomyopathy with a EF of 20 to 25% in 2022, remote history of pneumonia and hypoxic respiratory failure requiring tracheostomy tube who is presenting to [facility] on 01/21 withhypoxic respiratory failure. ?? He presented to [facility] on 01/16 with shortness of breath worsening cough and hypoxic respiratory failure and was found to be in COPD exacerbation was prescribed short course of prednisone.?? He reports that he improved symptomatically however today had sudden onset dyspnea when he was exerting himself and did not subside with rest.?? He used his rescue inhaler without any improvement.?? He denies any fever or chills.?? Denies any cough with sputum production.?? He denies any chest pain. ?? In the ED he was noted to be hypoxic and was placed on BiPAP on 60% FiO2 with improvement in hisoxygenation.?? His labs showed a WBC of 15 hemoglobin and hematocrit at baseline AMBER with a creatinine of 2.2 BUN of 53 from a baseline of 1.6.?? His lactic acid was 5.2 at presentation.?? His chest x-ray showed reticular opacities that are chronic with increased right lower lobe opacity.?? He was given ceftriaxone azithromycin DuoNebs and methylprednisolone 125 IV push. ?? Review of Systems All systems were reviewed and are negative except for the above. Objective Vital Signs?? Temperature: 97.7 DegF (01/21/23 16:29:00) Pulse Rate:??101 bpm??High (01/21/23 16:57:00) Heart Rate Monitored:??93 bpm??High (01/21/23 15:24:00) Respiratory Rate: 18 br/min (01/21/23 16:57:00) Systolic Blood Pressure: 106 mm Hg (01/21/23 16:57:00) Diastolic Blood Pressure:??85 mm Hg??High (01/21/23 16:57:00) Blood pressure sites: Arm, left (01/21/23 16:57:00) Mean Arterial Pressure: 79 mm Hg (01/21/23 15:30:00) Pulse Pressure: 21 mm Hg (01/21/23 16:57:00) Oxygen Saturation: 95 % (01/21/23 16:57:00) Liters per Minute: 3 L/min (01/21/23 16:57:00) Mode of Delivery (Oxygen): Nasal cannula (01/21/23 16:57:00) FiO2: 60 % (01/21/23 16:29:00) Early Warning Score: 5 (01/21/23 17:06:32) ? Physical Exam GEN: NAD, comfortable on BiPAP, alert and oriented HEENT: Supple neck, reactive pupils. CVS: Normal S1, Normal S, RRR, no murmurs or extrasounds appreciated Lungs: Diffuse expiratory wheezing, Rales at the right side and bibasilar crackles Abdomen: Soft, non tender, non distended, +BS Extremities: Warm and well perfused, no edema ?? Labs and imaging were reviewed Assessment/Plan This is a case of a 62-year-old male patient with a history of HIV on Biktarvy, hepatitis C status posttreatment with Jennifer, COPD, history of opioid use currently on methadone follows with Dr. Brooks, cardiomyopathy with a EF of 20 to 25% in 2022, remote history of pneumonia and hypoxic respiratory failure requiring tracheostomy tube who is presenting to [facility] on 01/21 withhypoxic respiratory failure. ?? #Acute hypoxic hypercarbic respiratory failure likely multifactorial secondary to #COPD exacerbation due to aspiration or community-acquired pneumonia #CHF exacerbation with pulmonary edema specially that he recently started on prednisone #Interstitial lung disease with broad differential but in the context of his HIV could represent LIP #HIV on Biktarvy #Hx of Hepatitis C treated with Harvoni ?? [] CT scan of the chest Noncon [] Sputum culture if possible, MRSA swab, urine strep and Legionella [] NT proBNP [] Agree with ceftriaxone and azithromycin [] DuoNebs scheduled every 6 hours [] Continue IV methylprednisone 60 mg daily for now and if improvement noted rapidly can convert top.o. prednisone 40 mg daily []??Continue BiPAP support??for target SPO2??88 to 92%.?? Once [facility] can trial him on high flownasal cannula. [] Obtain cardiology consult to help with his cardiomyopathy management (supposed to get cath in the next 2 weeks) [] Consider pulmonary consult in the a.m. ?? Case discussed with Dr. Mandeep Mora MD.?? Histories Allergies Allergies ?(Active and Proposed Allergies Only) NKA? (Severity: Unknown severity, Onset: Unknown) ? Past Medical History/Problem List No problems documented. ? Past Surgical History Colonoscopy, flexible, proximal to splenic flexure; diagnostic, with or without collection of specimen(s) by brushing or washing, with or without colon decompression (separate procedure): 07/18/14 ? Social History Tobacco Details:??Use: 5-9 cigarettes (between 1/4 to 1/2 pack)/day in last 30 days. ? Medications Home Medications Albuterol (Albuterol (Eqv-ProAir HFA))?Inhalation?Every 6 hours Aspirin (aspirin 81 mg oral delayed release tablet)?81?Milligram?By Mouth?Daily Atorvastatin (Lipitor 40 mg oral tablet)?1?tab(s)?40?Milligram?By Mouth?Daily at bedtime bictegravir/emtricitabine/tenofovir (Biktarvy oral tablet)?1?tab(s)?By Mouth?Daily?for 30?Days?[place] mei. Carvedilol (carvedilol 6.25 mg oral tablet)?See Instructions?1 tablet By Mouth 2 times a day dapagliflozin (Farxiga 10 mg oral tablet)?See Instructions?take 1 tablet By Mouth Daily. Furosemide (furosemide 40 mg oral tablet)?See Instructions?take 1/2 tab daily Methadone (methadone 10 mg/5 mL oral solution)?50?Milligram?By Mouth?Daily?oral solution; goes to [facility] Miscellaneous Rx (-)?See Instructions?Go to the lab and do a basic metabolic panel in 3-4 days. Montelukast (montelukast 4 mg oral granule)?1?Each?4?Milligram?By Mouth?Daily PredniSONE (predniSONE 20 mg oral tablet)?2?tab(s)?40?Milligram?By Mouth?Daily?for 5?Days sacubitril-valsartan (Entresto 49 mg-51 mg oral tablet)?See Instructions?1 tablet By Mouth 2 times a day. note dose increase Spironolactone (spironolactone 25 mg oral tablet)?12.5?Milligram?0.5?tablet?By Mouth?Daily?take 1/2 tablet(12.5mg) by mouth once daily Tiotropium (Spiriva)?18?Microgram?Inhalation?Daily ? Inpatient Medications Medications (8) Active SCHEDULED: (3) Insulin Lispro 100 units/mL Inj (3mL) (Insulin LISPRO Sliding Scale) ??2-10 units, Subcutaneous Injection, 3 times a day before meals NaCl 0.9% Flush 3ml (NaCL 0.9% Flush) ??3 mL, IV Push, Every 8 hours Sulfamethoxazole 80 mg / Trimethoprim 16 mg / mL IVPB (Bactrim IVPB) ??370 mg 23.13 mL, IVPB, Once CONTINUOUS: (0) PRN: (5) Acetaminophen 325 mg Tablet (Acetaminophen Tablet) ??650 mg, By Mouth, Every 4 hours Dextromethorphan-Guaifenesin 20 mg-200 mg/10 mL Liqu UD (Robitussin DM Liquid) ??10 mL, By Mouth, Every 4 hours Melatonin 3 mg Tablet (Melatonin Tablet) ??3 mg, By Mouth, Daily at bedtime NaCl 0.9% Flush 3ml (NaCL 0.9% Flush) ??3 mL, IV Push, Every 8 hours Senna 8.6 mg / Docusate 50 mg tablet (Docusate/Senna Tablet) ??1 tablet, By Mouth, 2 times a day ? Results Recent Labs BLOOD COUNT & DIFF WBC 15.0 k/mm3 (High)?? 01/21/2023 13:08 RBC 5.65 m/mm3 ()?? 01/21/2023 13:08 Hgb 13.0 Gm/dL (Low)?? 01/21/2023 13:08 Hct 43.4 % ()?? 01/21/2023 13:08 MCV 76.8 femtoliters (Low)?? 01/21/2023 13:08 MCH 23.0 pg (Low)?? 01/21/2023 13:08 MCHC 30.0 g/dL (Low)?? 01/21/2023 13:08 Platelet Count 280 k/mm3 ()?? 01/21/2023 13:08 RDW-SD 41.8 femtoliters ()?? 01/21/2023 13:08 MPV 10.7 femtoliters ()?? 01/21/2023 13:08 Nucleated RBC (Automated) 0.4 #/100 WBC'S ()?? 01/21/2023 13:08 Abs. NRBC 0.1 k/mm3 ()?? 01/21/2023 13:08 ?? BLOOD GAS pH 7.27 (Low)?? 01/21/2023 16:19 pCO2 50 mm Hg (High)?? 01/21/2023 16:19 pO2 134 mm Hg (High)?? 01/21/2023 16:19 Bicarbonate, Estimated 23 mmol/L ()?? 01/21/2023 16:19 Specimen Type - Blood Gas ARTERIAL ()?? 01/21/2023 16:19 Percent O2 (FIO2) 60 ()?? 01/21/2023 16:19 ?? CARDIAC Nt-Probnp 688 pg/mL (High)?? 01/21/2023 13:08 High Sensitivity Troponin (HSTnT) 228 ng/L (Critical)?? 01/21/2023 15:30 ?? CHEM GENERAL Sodium 142 mmol/L ()?? 01/21/2023 13:08 Potassium 4.4 mmol/L ()?? 01/21/2023 13:08 Chloride 103 mmol/L ()?? 01/21/2023 13:08 Bicarbonate Level 24 mmol/L ()?? 01/21/2023 13:08 Anion Gap 15 ()?? 01/21/2023 13:08 Glucose Level 212 mg/dL (High)?? 01/21/2023 13:08 Glucose, POC 179 mg/dL (High)?? 01/21/2023 13:00 BUN 53 mg/dL (High)?? 01/21/2023 13:08 Creatinine-Blood 2.2 mg/dL (High)?? 01/21/2023 13:08 Estimated GFR Creatinine 33 ML/MIN/1.73 M2 ()?? 01/21/2023 13:08 Calcium 9.8 mg/dL ()?? 01/21/2023 13:08 Protein, Total 7.9 Gm/dL ()?? 01/21/2023 13:08 Albumin 4.6 Gm/dL ()?? 01/21/2023 13:08 AG Ratio 1.4 ()?? 01/21/2023 13:08 LDH 265 units/L (High)?? 01/21/2023 13:51 Alkaline Phosphatase 139 units/L (High)?? 01/21/2023 13:08 AST (SGOT) 65 units/L (High)?? 01/21/2023 13:08 ALT (SGPT) 40 units/L ()?? 01/21/2023 13:08 Bilirubin, Total 0.4 mg/dL ()?? 01/21/2023 13:08 Lactate 2.5 mmol/L (High)?? 01/21/2023 15:30 ?? HEME OTHER Hold Blue Top SPECIMEN DISCARDED AFTER 4 HOURS. ()?? 01/21/2023 13:08 ?? VIROLOGY COVID-19 by RT-PCR NEGATIVE ()?? 01/21/2023 13:08 ? * Mandeep ROSS, Ranjan Hand: PERFORM Event Display: Consult Authored Date: [id number] Pulmonary Attending Attestation ?? I have seen and evaluated??YONATHAN BABB. I have personally reviewed the HPI, PMFSH, and ROS. I have personally reviewed the lab, radiography, and study results from this admission. I have discussed the case with and agree with the findings, assessment, and plan as documented below with the following highlights, clarifications, and addenda. Acute hypoxemic respiratory failure with unilateral right-sided chest opacity in the background of possible fibrotic lung disease, reported COPD,and cardiomyopathy with chronic systolic heart failure but no other preceding symptoms such as fever, chills, rigors, cough, sputum production, aspiration, hemoptysis, pleuritic pain, leg swelling, chest pain, nausea, or vomiting. Differential diagnosis includes community- acquired pneumonia, aspiration pneumonitis, unilateral cardiogenic pulmonary edema, and less likely exacerbation of interstitial lung disease (no evidence of ILD??on CT chest from 2019 under a duplicate MRN). Incidentally, theCT chest from 2019 listed under a duplicate MRN showed a left upper lobe nodule concerning for malignancy and Mr. Babb is uncertain if he ever had follow up imaging. Recommend CT chest to better characterize the right lower lobe opacities,??assess for progression/regression of the left upper lobe nodule, and rule out interstitial lung disease. Recommend checking procalcitonin and other infectiousstudies as described below since history seems less consistent with bacterial pneumonia, and consider a respiratory viral panel if it the procalcitonin level is low. Weaned off BIPAP to CPAP without any change in respiratory rate, tidal volume, or work of breathing; can likely de-escalate to HFNC over the new few hours. Agree with plan for management of probable COPD exacerbation as described below. Lactic acid elevation likely due to hypoxemia since never hypotension and improving. Consider diuresis within the next 24 hours or at least maintain net even fluid balance. No current indication for ICU admission, stable for intermediate care. Remainder as below. ?? Ranjan Kaufman MD Pulmonary [employer] [facility] Pager [phone] Admission evaluation note * Nilton ROSS, Eric: MODIFY, PERFORM, MODIFY, MODIFY, MODIFY Event Display: Admission Note Authored Date: [id number] Patient: ??YONATHAN BABB ? Age:??62 Years?Sex:??Male?:??1960?? HPI: 62-year-old male patient with a history of HIV on Biktarvy, hepatitis C status posttreatment with Jennifer, COPD, history of opioid use currently on methadone follows with Dr. Brooks, cardiomyopathy with a EF of 20 to 25% in 2022, remote history of pneumonia and hypoxic respiratory failure requiring tracheostomy tube who is presenting to [facility] on 01/21 with hypoxic respiratoryfailure. ?? He presented to [facility] on 01/16 with shortness of breath worsening cough and hypoxic respiratory failure and was found to be in COPD exacerbation was prescribed short course of prednisone.?? He reports that he improved symptomatically however today had sudden onset dyspnea when he was exerting himself??running to catch the bus and then trying to get into his methadone clinic.??It did not subside with rest.?? He used his rescue inhaler without any improvement.?? He denies any fever or chills.?? Denies any cough with sputum production.?? He denies any chest pain. ?? He reports being strictly adherent to his medications. ?? In the ED: T 97.1 BP 164/107 HR 111 RR 22 O2 82% 4L NC WBC 15.0 Cr 2.2 baseline 1.8 - 2.0 Lactate 5.2 -> 2.5?? BNP 688 Trop 41 -> 228 CXR with increased density of hazy opacities in right lower lobe.? He was given Solumedrol, CTX, azithro, duoneb, 500cc IVF and admitted. MICU was consulted and recommended intercare. ?? ROS: As above, rest of full review negative. ?? PMH: No qualifying data available. ?? MEDS: Albuterol (Albuterol (Eqv-ProAir HFA))?Inhalation?Every 6 hours Aspirin (aspirin 81 mg oral delayed release tablet)?81?Milligram?By Mouth?Daily Atorvastatin (Lipitor 40 mg oral tablet)?1?tab(s)?40?Milligram?By Mouth?Daily at bedtime bictegravir/emtricitabine/tenofovir (Biktarvy oral tablet)?1?tab(s)?By Mouth?Daily?for 30?Days?Irma mei. Carvedilol (carvedilol 6.25 mg oral tablet)?See Instructions?1 tablet By Mouth 2 times a day dapagliflozin (Farxiga 10 mg oral tablet)?See Instructions?take 1 tablet By Mouth Daily. Methadone (methadone 10 mg/5 mL oral solution)?50?Milligram?By Mouth?Daily?oral solution; goes to [facility] Montelukast (montelukast 4 mg oral granule)?1?Each?4?Milligram?By Mouth?Daily PredniSONE (predniSONE 20 mg oral tablet)?2?tab(s)?40?Milligram?By Mouth?Daily?for 5?Days sacubitril-valsartan (Entresto 49 mg-51 mg oral tablet)?See Instructions?1 tablet By Mouth 2 times a day. note dose increase Spironolactone (spironolactone 25 mg oral tablet)?12.5?Milligram?0.5?tablet?By Mouth?Daily?take 1/2 tablet(12.5mg) by mouth once daily Tiotropium (Spiriva)?18?Microgram?Inhalation?Daily ?? Social: Lives independently ?? Exam: Temperature?97.7 ?(18:29) Systolic Blood Pressure?164 ?(18:23) Diastolic Blood Pressure?107 ?(18:23) Pulse?100 ?(18:36) SpO2?100 ?(18:36) Respiratory Rate?22 ?(18:23) GEN: Sitting up in bed on BIPAP HEENT: Moist membranes HEART: Warm extremities LUNGS: Speaking in short sentences on BIPAP, some work of breathing but not obvious accessory muscle use, no cough ABD: Soft, nontender : No langley EXT: Warm, no edema NEURO: Alert, oriented x3 PSYCH: Calm and cooperative ?? Assessment and Plan: 62-year-old male patient with a history of HIV on Biktarvy, hepatitis C status posttreatment with Jennifer, COPD, history of opioid use currently on methadone follows with Dr. Brooks, cardiomyopathy with a EF of 20 to 25% in 2022, remote history of pneumonia and hypoxic respiratory failure requiring tracheostomy tube who is presenting to [facility] on 01/21 with hypoxic respiratoryfailure. ?? # Acute hypoxic respiratory failure # COPD, active smoker on home O2 at night Etiology is unclear, appears he had typical COPD exacerbation 5 days ago and was given azithro and prednisone, though his CXR showed a diffuse R lower lobe process thought to be scarring/atelectasis.He improved, but then suddenly today decompensated in the context of running to catch a bus. He hasrequired BIPAP and continues to have moderate distress despiote Solumedrol, CTX/Azithro, and no lasix. His currentl CXR does not show pulm edema, though the R lobe haziness is worse suggestive of pneumonia. Of note, his HIV is well controlled, with undetectable viral load meaning he is not immunocompromised. He does not appear to be volume overloaded and I doubt that is contributing significantlyto his presentation. Suddenness argues for PE. - wean BIPAP as tolerated - CTX/azithro - Solumedrol 60mg daily - duonebs -??lasix 20mg IV x1?? - f/u MRSA swab - f/u legionella and strep pna - f/u induced sputum - f/u procalcitonin - f/u D-Dimer - order CT chest in AM if still requiring BIPAP ?? # CHF with EF 20-25% Etiology thought to be related to cocaine use, reportedly has been worked up for ischemia/CAD was negative. Cardiology plans cath in two weeks. - cont entresto - cont asa - cont statin - cont carvedilol 6.25mg bid - hold spironolactone for now to preserve renal function with diuresis above, low threshold to restart - hold dapagliflozin ?? # Elevated troponin No history of CAD, troponin rise from 41 -> 228 most likely demand. - trend troponin to peak ?? # HIV Well controlled. - call Abx stewardship to order bictegravir/emtricitabine/tenofovir (Biktarvy oral tablet)?1?tab(s)?By Mouth?Daily?for 30?Days?[place] brett tableta todos los mei. ?? # Opiate history - cont Methadone 50?Milligram?By Mouth?Daily?oral solution; goes to [facility] ?? CODE - full DVT- low risk DIET - regular ? Addendum: Clinically much improved, weaned to nasal canula, voided 1.2 liters s/p 20mg IV lasix. SBp dropped to 81, on recheck was 89, reports feeling well, no chest pain or discomfort. D-dimer 5, ordered stat CTA chest. Will sign out to coverage to follow up CTA. 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 Clinical History Smoker. COPD. Study Data Type of Study TTE procedure:Echo Complete-(Doppler, Colorflow) with Contrast. Procedure Information:Definity was administered by Nickie Hunt RDCS. Study Date01/22/2023 Start Time: 02:30 PM Study Location: [facility] [place] Echo Study Status: Bedside Patient Status: Routine Technical Quality: Adequate Blood Pressure:85/61 mmHg EKG: Indeterminate HR: 76 bpm Contrast Medium: Definity. Amount - 2 ml 2D Measurements LV Diastolic Dimension: 4.9 cm LV Systolic Dimension: 4 cm LV Septum Diastolic: 0.8 cm LV PW Diastolic: 0.8 cm AO Root Dimension: 3.1 cm LA ESV (BP):37.8 ml LVOT Stroke Volume: 63.74 ml LA ESV Index: 21 ml/m2 Stroke Volume Index35.22 ml/m2 LVOT: 2 cm Cardiac Index:2.67 l/min/m2 Ascending Aorta:3.5 cm Doppler Measurements AV Peak Velocity: 114 cm/s MV Peak E-Wave: 50.7 cm/s AV Peak Gradient: 5.2 mmHg MV Peak A-Wave: 81.8 cm/s AV Mean Gradient: 3 mmHg MV E/A Ratio: 0.62 AV VTI:23.4 cm MV P1/2t: 83 msec LVOT Peak Velocity: 101 cm/s LVOT VTI20.3 cm MV Deceleration Time: 284 msec AV Area (Continuity):2.72 cm2 MV Area (PHT): 2.65 cm2 E' Septal Velocity: 5.66 cm/s E' Lateral Velocity: 5.33 cm/s E/Med E':[id number] E/Lat E':[id number] Cardiac Anatomy Left Ventricle/Interventricular Septum Severely reduced LV systolic function (EF 25-30%). Severe hypokinesis of the basal segments with relative preservation of apical wall motion. Grade I (mild) LV diastolic dysfunction with impaired relaxation. Normal LV cavity size. Normal LV wall thickness. Left Atrium/Interatrial Septum Normal size LA. Aortic Valve Poorly visualized, mildly thickened and calcified aortic valve. No significant aortic regurgitation. No significant aortic stenosis. Mitral Valve Apical tethering of the mitral valve leaflets. Trace mitral regurgitation. Aorta Normal size aortic root and ascending aorta. Right Ventricle Normal RV systolic function. Normal RV size. Right Atrium Normal size RA. Pulmonic Valve No significant structural abnormalities of the pulmonic valve. Tricuspid Valve No significant structural abnormalities of the tricuspid valve. Trace tricuspid regurgitation. Pumonary Artery Unable to estimate PA systolic pressure. Venous Structures Normal size IVC with normal respiratory variation (suggesting normal RAP/CVP). Pericardium/Extracardiac No significant pericardial effusion. Summary Severely reduced LV systolic function (EF 25-30%). Severe hypokinesis of the basal segments with relative preservation of apical wall motion. Grade I (mild) LV diastolic dysfunction with impaired relaxation. Normal LV cavity size. Normal LV wall thickness. Normal RV systolic function. Normal RV size. No clinically significant valvular abnormalities. Comparison Comparison is made to the study of August 31, 2022. Slightly improved LV systolic function. Signature * Event Display: Echocardiogram - Complete Authored Date: Cardiology * Event Display: Cardiac Rhythm Strips Authored Date: Hospital Progress note * Princess Calderon RN: PERFORM, SIGN, VERIFY Event Display: Progress Note Hospital Authored Date: Patient: YONATHAN BABB Age: 62 years Sex: Male : 1960 Associated Diagnoses: None Author: Princess Calderon RN Findings Narrative/Incidental A/Ox4. 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 TR band had 14cc air. all 14cc of air in TR bandcame out by 1800. no bleed at the site. IV access was taken out the tip is intact. pt went home soncame and berry picker the pt. all paperwork signed and pt was out of here by 193.. Discharge Information Pulmonary Rehab Discharge : Pulmonary Rehab Discharge Status 01/24/2023 0:23 EDT CPAP/BiPAP Mask Type Full CPAP/BiPAP Mask Size Medium 01/23/2023 1:10 EDT CPAP/BiPAP Mask Type Full CPAP/BiPAP Mask Size Medium 01/22/2023 23:37 EDT CPAP/BiPAP Mask Type Full CPAP/BiPAP Mask Size Medium 01/21/2023 18:33 EDT CPAP/BiPAP Mask Type Full CPAP/BiPAP Mask Size Medium 01/21/2023 13:13 EDT CPAP/BiPAP Mask Type Full CPAP/BiPAP Mask Size Medium * Eric Mcgraw DO: PERFORM Event Display: Progress Note Hospital Authored Date: Patient: ??YONATHAN BABB ? Age:??62 Years?Sex:??Male?:??1960?? Reginaldo Mcmanus was having some diarrhea so I discontinued his antibiotics and sent a C. difficile sample. ?? He has no shortness of breath or chest pain, he is on room air.?? Want to leave AMA but because he was going to the [employer] shortly and this afternoon he agreed to stay. ?? We will follow-up after the [employer] was done.?? Has no other new complaints. Review of Systems No issues other than diarrhea Labs are pending Allergies Allergies ?(Active and Proposed Allergies Only) NKA? (Severity: Unknown severity, Onset: Unknown) ? Past Medical History No problems documented. ? Past Surgical History Colonoscopy, flexible, proximal to splenic flexure; diagnostic, with or without collection of specimen(s) by brushing or washing, with or without colon decompression (separate procedure): 07/18/14 ? Objective Vital Signs?? Temperature: 98 DegF (01/25/23 12:00:00) Temperature Route: Oral (01/25/23 12:00:00) Pulse Rate: 74 bpm (01/25/23 12:00:00) Respiratory Rate: 18 br/min (01/25/23 12:18:00) Systolic Blood Pressure:??142 mm Hg??High (01/25/23 12:00:00) Diastolic Blood Pressure: 78 mm Hg (01/25/23 12:00:00) Blood pressure sites: Arm, right (01/25/23 07:00:00) Pulse Pressure: 64 mm Hg (01/25/23 12:00:00) Oxygen Saturation: 96 % (01/25/23 12:00:00) Mode of Delivery (Oxygen): Room air (01/25/23 12:00:00) Early Warning Score: 0 (01/25/23 12:28:39) ? Pain Scores?? No qualifying data available. ? Intake/Output? 01/21 15:47 01/25 07:00 01/24 07:00 01/23 07:00 01/22 07:00 ?? 01/25 13:39 01/25 13:39 01/25 06:59 01/24 06:59 01/23 06:59 Intake ? 2201.8 ?0 ?960 ?880 ? 34.8 Output ? 6220 ?400 ?695 ? 1500 ? 1425 Net Total ?-4018.2 ? -400 ?265 ? -620 ?-1390.2 ? Physical Exam Alert and oriented Chest clear to auscultation Cardiovascular: Regular rate and rhythm Abdomen bowel sounds present Extremities no edema _ Inpatient Medications Medications (21) Active SCHEDULED: (13) Aspirin 81 mg EC Tablet (aspirin 81 mg oral delayed release tablet) ??81 mg, By Mouth, Daily Atorvastatin 40 mg Tablet (Lipitor 40 mg oral tablet) ??40 mg, By Mouth, Daily at bedtime Bictegravir/Emtricitabine/Tenofovir 50 mg-200 mg-25 mg Tablet (Biktarvy Tablet) ??1 tablet, By Mouth, Daily Breo Ellipta 200 mcg / 25 mcg Inhaler (Breo Ellipta 200 mcg-25 mcg Inhaler) ??1 puffs, Inhalation, Daily Carvedilol 6.25 mg Tablet (carvedilol 6.25 mg oral tablet) ??6.25 mg, By Mouth, 2 times a day Enoxaparin 80 mg Inj (Enoxaparin Inj) ??70 mg 0.7 mL, Subcutaneous Injection, Every 12 hours Methadone 10mg/5mL UD Solution (Methadone Liquid) ??50 mg 25 mL, By Mouth, Daily before lunch Montelukast 10 mg Tablet (montelukast 10 mg oral tablet) ??10 mg, By Mouth, Daily at bedtime NaCl 0.9% Flush 3ml (NaCL 0.9% Flush) ??3 mL, IV Push, Every 8 hours PredniSONE 20 mg Tablet (predniSONE 20 mg oral tablet) ??40 mg, By Mouth, Daily Sacubitril-Valsartan 49 mg-51 mg Tablet (Entresto 49 mg-51 mg oral tablet) ??1 tablet, By Mouth, 2 times a day Spiriva Respimat 2.5 mcg Inhaler (Spiriva Respimat Inhaler) ??2 puffs, Inhalation, Daily Spironolactone 25 mg Tablet (spironolactone 25 mg oral tablet) ??12.5 mg, By Mouth, Daily CONTINUOUS: (1) NaCL 0.9% (1000 mL) Cont IV 1,000 mL (NaCL 0.9% 1,000 mL) ??1,000 mL, IV Infusion, 75 mL/hr PRN: (7) Acetaminophen 325 mg Tablet (Acetaminophen Tablet) ??650 mg, By Mouth, Every 4 hours Albuterol/Ipratropium Inhalation Misty 3mL (Duoneb Inhalation Solution) ??1 vials, BAND Nebulizer, Every 4 hours Dextromethorphan-Guaifenesin 20 mg-200 mg/10 mL Liqu UD (Robitussin DM Liquid) ??10 mL, By Mouth, Every 4 hours Loperamide 2 mg Capsule (Imodium Capsule) ??2 mg, By Mouth, Every 3 hours Melatonin 3 mg Tablet (Melatonin Tablet) ??3 mg, By Mouth, Daily at bedtime NaCl 0.9% Flush 3ml (NaCL 0.9% Flush) ??3 mL, IV Push, Every 8 hours nalOXONE ??400mcg/mL Inj (nalOXONE Inj) ??0.2 mg 0.5 mL, IV Push, Every 5 minutes ? 72 Hour Antibiotic History Active Antibiotics Calendar Day Last Administered First Administered bictegravir/emtricitabine/tenofovir??1 tablet, By Mouth, Daily ?4 01/25/2023 10:02 01/22/2023 11:08 ? Stopped Antibiotics Stop Date/Time Last Administered First Administered Ceftriaxone??1 Gm, 100 mL/hr, IVPB, Every 24 hours 01/25/2023 12:24 01/25/2023 10:10 01/22/2023 09:12 Azithromycin??250 mg, By Mouth, Daily 01/25/2023 12:25 01/25/2023 10:02 01/22/2023 08:45 ? Results Recent Labs BLOOD COUNT & DIFF WBC 10.2 k/mm3 ()?? 01/25/2023 02:17 RBC 4.91 m/mm3 ()?? 01/25/2023 02:17 Hgb 11.5 Gm/dL (Low)?? 01/25/2023 02:17 Hct 36.1 % (Low)?? 01/25/2023 02:17 MCV 73.5 femtoliters (Low)?? 01/25/2023 02:17 MCH 23.4 pg (Low)?? 01/25/2023 02:17 MCHC 31.9 g/dL (Low)?? 01/25/2023 02:17 Platelet Count 150 k/mm3 ()?? 01/25/2023 02:17 RDW-SD 37.5 femtoliters ()?? 01/25/2023 02:17 MPV 11.3 femtoliters ()?? 01/25/2023 02:17 Nucleated RBC (Automated) 0.0 #/100 WBC'S ()?? 01/25/2023 02:17 Abs. NRBC 0.0 k/mm3 ()?? 01/25/2023 02:17 Abs. Neut 8.6 k/mm3 (High)?? 01/24/2023 02:04 Abs. Lymph 1.2 k/mm3 ()?? 01/24/2023 02:04 Abs. [place] 1.0 k/mm3 ()?? 01/24/2023 02:04 Abs. Eo 0.0 k/mm3 ()?? 01/24/2023 02:04 Abs. Baso 0.0 k/mm3 ()?? 01/24/2023 02:04 Neut % 78.3 % (High)?? 01/24/2023 02:04 Lymph % 11.2 % (Low)?? 01/24/2023 02:04 [place] % 8.7 % ()?? 01/24/2023 02:04 Eos % 0.1 % ()?? 01/24/2023 02:04 Baso % 0.1 % ()?? 01/24/2023 02:04 Imm Gran 1.6 % ()?? 01/24/2023 02:04 Abs. Imm Gran 0.2 k/mm3 ()?? 01/24/2023 02:04 ?? CHEM GENERAL Sodium 139 mmol/L ()?? 01/24/2023 02:04 Potassium 4.6 mmol/L ()?? 01/24/2023 02:04 Chloride 102 mmol/L ()?? 01/24/2023 02:04 Bicarbonate Level 26 mmol/L ()?? 01/24/2023 02:04 Anion Gap 11 ()?? 01/24/2023 02:04 Glucose Level 156 mg/dL (High)?? 01/24/2023 02:04 BUN 37 mg/dL (High)?? 01/24/2023 02:04 Creatinine-Blood 1.2 mg/dL ()?? 01/24/2023 02:04 Estimated GFR Creatinine 67 ML/MIN/1.73 M2 ()?? 01/24/2023 02:04 Calcium 8.8 mg/dL ()?? 01/24/2023 02:04 ?? URINE OTHER Est Creatinine Clearance 60.94 mL/min ()?? 01/24/2023 02:58 ? Abnormal Labs ?? BLOOD COUNT & DIFF ??Abs. NRBC ??0.0 k/mm3 () ??01/25/2023 02:17 ??Hct ??36.1 % (Low) ??01/25/2023 02:17 ??Hgb ??11.5 Gm/dL (Low) ??01/25/2023 02:17 ??MCH ??23.4 pg (Low) ??01/25/2023 02:17 ??MCHC ??31.9 g/dL (Low) ??01/25/2023 02:17 ??MCV ??73.5 femtoliters (Low) ??01/25/2023 02:17 ??Nucleated RBC (Automated) ??0.0 #/100 WBC'S () ??01/25/2023 02:17 ??RDW-SD ??37.5 femtoliters () ??01/25/2023 02:17 ? Note: Critical results are displayed in red. ? Assessment/Plan ? Diagnoses Acute respiratory failure ??(J96.00) Acute respiratory failure ??(J96.00) 1. ??Acute pulmonary embolism ??(I26.99) 2. ??Chronic systolic CHF (congestive heart failure) ??(I50.22) 3. ??Secondary hypercoagulable state ??(D68.69) 4. ??Interstitial lung disease ??(J84.9) 5. ??HIV infection ??(B20) ?? Assessment:??62-year-old male with HIV with good control on retroviral therapy??CD4 count greater than 500. ?? He has??chronic systolic heart failure with wall motion abnormalities, which was diagnosed recentlyas an outpatient but will be evaluated tomorrow with a cardiac cath.??See below. ?? He has a new??pulmonary embolism,??does not meet criteria for intervention, can be treated with anticoagulation. Risk factors are unknown,??possibly could need a secondary work-up for underlying malignancy??including??CT abdomen pelvis CEA??PSA and this can be done as an outpatient. ?? He has ongoing opiate addiction with methadone treatment and maintenance with occasional relapse ?? He has HIV on therapy as mentioned above ?? He has??treated??hepatitis C. ?? Acute pulmonary embolism (I26.99):??Transition to apixaban as an outpatient after Radio Broadcaster. He needs an outpatient work-up for any underlying malignancy. ?? Chronic systolic CHF (congestive heart failure) (I50.22):??Continues goal- directed therapy after his Radio Broadcaster procedure is completed, he will be on Entresto Aldactone beta-joshua.??No need for Lasix, he is not overloaded.??Will await results of catheterization ?ACEI or ARB for LVSD:??ARB has been ordered ?? Secondary hypercoagulable state (D68.69):??He will be discharged on apixaban ?? Interstitial lung disease (J84.9):??Diarrhea ILD antibiotics, taper prednisone. ?? HIV infection (B20):??No change in the??Biktarvy ?? Acute respiratory failure (J96.00):??Off oxygen. ?? VTE Prophylaxis:??On Lovenox??until discharge that he will be on apixaban ?VTE Prophylaxis Assessment:??VTE Prophylaxis Ordered ?? Code Status:??Full code ?? Discharge Planning:??Expect discharge tomorrow ? * Chon Chase RN: PERFORM, SIGN, VERIFY Event Display: Progress Note Hospital Authored Date: Patient: YONATHAN BABB Age: 62 years Sex: Male : 1960 Associated Diagnoses: None Author: Chon Chase RN Findings Problem Related to Alteration in Cardiac Function (new) : Alteration in Cardiac Function/new 01/25/2023 5:00 EDT Alteration in Cardiac Status Related to Heart failure Goals & Outcomes, Cardiac Status Pt will resume/maintain adequate cardiac output, Pt will resume/maintain adequate hemodynamic status, Pt will resume/maintain adequate respiratory function, Pt will resume/maintain intact neuro function, Pt will maintain adequate GI/ function appropriate for pt, Pt will maintain adequate nutrition status Cardiac Interventions Implemented Assess/monitor cardiac status, Assess/monitor neuro status BH Goals/Interventions, Cardiac Yes Cardiac, Problem Start 01/23/2023 6:29 Reviewed Plan with, Cardiac Status Patient Patient Progression, Cardiac Status Patient progressing according to plan . Pt alert and cooperative. Fall precautions in place. Call light in reach. Pt not in acute crisis. Received report when transferred from [facility]. Reviewed medications and orders for the shift. Pt NPO after midnight.. Pt understands procedure they will be having 01/25. Discharge Information Pulmonary Rehab Discharge : Pulmonary Rehab Discharge Status 01/24/2023 0:23 EDT CPAP/BiPAP Mask Type Full CPAP/BiPAP Mask Size Medium 01/23/2023 1:10 EDT CPAP/BiPAP Mask Type Full CPAP/BiPAP Mask Size Medium 01/22/2023 23:37 EDT CPAP/BiPAP Mask Type Full CPAP/BiPAP Mask Size Medium 01/21/2023 18:33 EDT CPAP/BiPAP Mask Type Full CPAP/BiPAP Mask Size Medium 01/21/2023 13:13 EDT CPAP/BiPAP Mask Type Full CPAP/BiPAP Mask Size Medium Note * Damari Quintana RN: PERFORM, SIGN, VERIFY Event Display: Cardiac Rehab Note Authored Date: Patient: YONATHAN BABB Age: 62 years Sex: Male : 1960 Associated Diagnoses: None Author: Lilian MARTÍNEZ, Damari Carlson Patient presented with acute respiratory failure and pulmonary embolism. Patient has a history of CHF with reduced EF. ECHO on this admission shows improved EF. Cath done and shows no significant disease. Patient does not qualify for phase 2 CR at this time. Please page [phone] with questions or changes in plan of care. * Lucien KIM, Eric Rashid: PERFORM Event Display: Discharge/Transfer Note Hospital Authored Date: [id number] Patient: ??YONATHAN BABB ? Age:??62 Years?Sex:??Male?:??1960?? Patient Information Discharge Location: [facility] Primary Care Physician: Loreta Bhagat MD Admit Date/Time: 01/21/23 15:47 Discharge date: 26 January 2020 Discharge Disposition Discharge Disposition: Home: No Services Discharge Diagnosis Acute pulmonary embolism (I26.99) Chronic systolic CHF (congestive heart failure) (I50.22) Secondary hypercoagulable state (D68.69) Interstitial lung disease (J84.9) HIV infection (B20) Acute respiratory failure (J96.00) ?? _ Discharge Medications Albuterol (Albuterol (Eqv-ProAir HFA))?Inhalation?Every 6 hours apixaban (apixaban Starter Pack 5 mg oral tablet)?2?tab(s)?10?Milligram?By Mouth?2 times a day?for 7?Days?followed by 1 tablet by mouth twice daily for 23 days Atorvastatin (Lipitor 40 mg oral tablet)?1?tab(s)?40?Milligram?By Mouth?Daily at bedtime bictegravir/emtricitabine/tenofovir (Biktarvy oral tablet)?1?tab(s)?By Mouth?Daily?for 30?Days?[place] mei. Carvedilol (carvedilol 6.25 mg oral tablet)?See Instructions?1 tablet By Mouth 2 times a day dapagliflozin (Farxiga 10 mg oral tablet)?See Instructions?take 1 tablet By Mouth Daily. Methadone (methadone 10 mg/5 mL oral solution)?50?Milligram?By Mouth?Daily?oral solution; goes to [facility] Montelukast (montelukast 4 mg oral granule)?1?Each?4?Milligram?By Mouth?Daily sacubitril-valsartan (Entresto 49 mg-51 mg oral tablet)?See Instructions?1 tablet By Mouth 2 times a day. note dose increase Spironolactone (spironolactone 25 mg oral tablet)?12.5?Milligram?0.5?tablet?By Mouth?Daily?take 1/2 tablet(12.5mg) by mouth once daily Tiotropium (Spiriva)?18?Microgram?Inhalation?Daily ? Medications Started Apixaban Medications Discontinued Aspirin Doses Changed None Allergies Allergies ?(Active and Proposed Allergies Only) NKA? (Severity: Unknown severity, Onset: Unknown) ? Future Appointments 2022 8:30 AM EDT ?? Where: Cardiac Radio Broadcaster Status: Pending Hospital Course ??This is a pleasant 62-year-old male with a previous history of HIV on antiretroviral treatment, as his last CD4 count was greater than 500. ??He presented with shortness of breath, shortness of breath is going on for about 2 weeks. ??He does smoke marijuana, no cigarettes, no vaping.?? He recently had a diagnosis of systolic heart failure and was being followed by machine cementer,??ischemic evaluation including cardiac catheterization was being planned. ?? On admission he was hypoxic, he was diagnosed with a small pulmonary embolism in the right upper lobes after CT imaging.?? He has interstitial lung disease seen in the right lower lobe.?? He has a known cardiomyopathy with ejection fraction of 20%, on the echocardiogram that was done during this admission interestingly the??RV is normal. ??With normal systolic function and no evidence of Wright sign or pulmonary overload or pressure overload. ?? He currently feels well. ??I took him off oxygen for about 20 minutes and spoke to him, his O2 saturation on room air was 99 to 100%, with ambulation his saturation is 96% and he walked completely around the entire perimeter of the unit.?? He had no desaturations or tachycardia or syncope or symptoms of breathlessness. ?? He had no recent surgery, no recent immobilizations.?? He did relapse about??2 weeks ago and was using some fentanyl, he is on a methadone program at 50 mg.?? He lives with a friend. ??He gave me permission to speak to his son. ?? No fevers chills chest pain shortness breath nausea vomit diarrhea dysuria. [1] ?? Regarding his pulm embolism: Etiology unclear. ??No recent surgery as mentioned above, no mobilizations.?? His lungs show some chronic interstitial fibrosis and pulmonary disease of the right lower lobe, he did receive some antibiotics but we discontinued them as he was not hypoxic, not wheezing, not coughing,??and he was having some diarrhea. ?? I think that he should get an evaluation with his primary care doctor for any underlying malignancy, this would include CEA PSA and potentially body imaging including abdomen pelvis CT scan. ??Note that he is eating and drinking well and has had no weight loss and no other signs and symptoms of an underlying malignancy that would lead into having a hypercoagulable state.?? Additional hypercoagulable work-up could be pursued as an outpatient, which would help guide the duration of anticoagulation. ?? Regarding the pulm embolism also, he had a cardiac cath??(see below) but no evidence of any occlusive coronary disease.?? I discontinue his aspirin as I am adding apixaban for pulm embolism treatment, therefore we do not want to cause any additional bleeding. ?? Regarding his nonischemic cardiomyopathy: Again he has no evidence of coronary disease.?? He shouldbe evaluated by his cardiology team, and he already has appointments, for nonischemic cardiac evaluation including??cardiac MRI evaluation for amyloidosis??infiltrative cardiomyopathy.?? His discharge meds include Coreg and Entresto??Aldactone and SGLT2 inhibition. ??He is not overloaded and does not require diuretics. ?? Regarding his hypoxia: He was not hypoxic on 24 January and was able to walk around the entire floor with no hypoxemia at all or no tachycardia.?? His pulmonary embolism is likely nonsignificant as his echocardiogram did not show any significant right ventricular overload.?? He does not require any additional antibiotics or steroids at this time. ??No inhalers. ?? His cardiac catheterization today on??25 January showed:?Diagnostic Summary ??There is no significant gradient on pullback across the aortic valve. ??Successful hemostasis of the right radial artery using a radial compression ??device . ??Normal LV end-diastolic pressure. ??There is non-obstructive coronary disease with no more than moderate disease ??as described above. ??Diagnostic Recommendations ??Risk factor modification according to this available evidence. ??Continue to maximize medical therapy. ??Further care per primary team to assess underlying cause of nonischemic ??cardiomyopathy. [2] ?? He will return to the floor and can be discharged post cath. ??There is a separate progress note from today. ?? No other new issues or complaints. ?? Thank you for allowing us to follow your patient.?? 30 minutes spent Objective Vital Signs?? Temperature: 98 DegF (01/25/23 12:00:00) Temperature Route: Oral (01/25/23 12:00:00) Pulse Rate: 74 bpm (01/25/23 12:00:00) Heart Rate Monitored: 56 bpm (01/25/23 15:30:00) Respiratory Rate:??13 br/min??Low (01/25/23 15:30:00) Systolic Blood Pressure: 125 mm Hg (01/25/23 15:08:00) Diastolic Blood Pressure:??85 mm Hg??High (01/25/23 15:08:00) Blood pressure sites: Arm, right (01/25/23 07:00:00) Pulse Pressure: 40 mm Hg (01/25/23 15:08:00) Oxygen Saturation: 94 % (01/25/23 15:30:00) Mode of Delivery (Oxygen): Room air (01/25/23 15:15:00) Early Warning Score: 2 (01/25/23 15:26:44) ? . Physical Exam Pending Results Add On Lab Order ordered on 01/24/2023 Beta D Glucan Assay ordered on 01/23/2023 Blood Culture ordered on 01/21/2023 Blood Culture #2 ordered on 01/21/2023 C. difficile Rapid Toxin Assay ordered on 01/25/2023 CBC ordered on 01/22/2023 Hemoglobin A1C (Monitoring) ordered on 01/22/2023 High??Sensitivity??Troponin T ordered on 01/21/2023 Sputum Culture w/ Gram Smear ordered on 01/21/2023 Follow-Up Appointments Added Follow Up ?Time Frame ?Comments Leola ROSS, [facility] Post Discharge Care Diet: Regular Diet Activity: Ambulate with assistance ??3 times a day ??unless otherwise specified Condition: Stable Discharge ?01/25/23 15:32:00 EDT Discharge Prescriptions ?ePrescribed, ??01/25/23 15:32:00 EDT Home Health Face to Face ^HomeHealthFTF Results Discharge Labs BACTERIOLOGY MRSA PCR Result Negative, MRSA target DNA not detected. ()?? 01/21/2023 21:44 S Aureus ??PCR Result Positive, SA target DNA detected. ()?? 01/21/2023 21:44 ?? BLOOD COUNT & DIFF WBC 10.2 k/mm3 ()?? 01/25/2023 02:17 RBC 4.91 m/mm3 ()?? 01/25/2023 02:17 Hgb 11.5 Gm/dL (Low)?? 01/25/2023 02:17 Hct 36.1 % (Low)?? 01/25/2023 02:17 MCV 73.5 femtoliters (Low)?? 01/25/2023 02:17 MCH 23.4 pg (Low)?? 01/25/2023 02:17 MCHC 31.9 g/dL (Low)?? 01/25/2023 02:17 Platelet Count 150 k/mm3 ()?? 01/25/2023 02:17 RDW-SD 37.5 femtoliters ()?? 01/25/2023 02:17 MPV 11.3 femtoliters ()?? 01/25/2023 02:17 Nucleated RBC (Automated) 0.0 #/100 WBC'S ()?? 01/25/2023 02:17 Abs. NRBC 0.0 k/mm3 ()?? 01/25/2023 02:17 Abs. Neut 8.6 k/mm3 (High)?? 01/24/2023 02:04 Abs. Lymph 1.2 k/mm3 ()?? 01/24/2023 02:04 Abs. [place] 1.0 k/mm3 ()?? 01/24/2023 02:04 Abs. Eo 0.0 k/mm3 ()?? 01/24/2023 02:04 Abs. Baso 0.0 k/mm3 ()?? 01/24/2023 02:04 Neut % 78.3 % (High)?? 01/24/2023 02:04 Lymph % 11.2 % (Low)?? 01/24/2023 02:04 [place] % 8.7 % ()?? 01/24/2023 02:04 Eos % 0.1 % ()?? 01/24/2023 02:04 Baso % 0.1 % ()?? 01/24/2023 02:04 Imm Gran 1.6 % ()?? 01/24/2023 02:04 Abs. Imm Gran 0.2 k/mm3 ()?? 01/24/2023 02:04 ?? BLOOD GAS pH 7.27 (Low)?? 01/21/2023 16:19 pCO2 50 mm Hg (High)?? 01/21/2023 16:19 pO2 134 mm Hg (High)?? 01/21/2023 16:19 Bicarbonate, Estimated 23 mmol/L ()?? 01/21/2023 16:19 Specimen Type - Blood Gas ARTERIAL ()?? 01/21/2023 16:19 Percent O2 (FIO2) 60 ()?? 01/21/2023 16:19 ?? CARDIAC Nt-Probnp 688 pg/mL (High)?? 01/21/2023 13:08 High Sensitivity Troponin (HSTnT) 328 ng/L (Critical)?? 01/21/2023 19:08 ?? CHEM GENERAL Sodium 139 mmol/L ()?? 01/24/2023 02:04 Potassium 4.6 mmol/L ()?? 01/24/2023 02:04 Chloride 102 mmol/L ()?? 01/24/2023 02:04 Bicarbonate Level 26 mmol/L ()?? 01/24/2023 02:04 Anion Gap 11 ()?? 01/24/2023 02:04 Glucose Level 156 mg/dL (High)?? 01/24/2023 02:04 Glucose, POC 165 mg/dL (High)?? 01/22/2023 07:29 BUN 37 mg/dL (High)?? 01/24/2023 02:04 Creatinine-Blood 1.2 mg/dL ()?? 01/24/2023 02:04 Estimated GFR Creatinine 67 ML/MIN/1.73 M2 ()?? 01/24/2023 02:04 Calcium 8.8 mg/dL ()?? 01/24/2023 02:04 Protein, Total 7.9 Gm/dL ()?? 01/21/2023 13:08 Albumin 4.6 Gm/dL ()?? 01/21/2023 13:08 AG Ratio 1.4 ()?? 01/21/2023 13:08 LDH 265 units/L (High)?? 01/21/2023 13:51 Alkaline Phosphatase 139 units/L (High)?? 01/21/2023 13:08 AST (SGOT) 65 units/L (High)?? 01/21/2023 13:08 ALT (SGPT) 40 units/L ()?? 01/21/2023 13:08 Bilirubin, Total 0.4 mg/dL ()?? 01/21/2023 13:08 Lactate 2.5 mmol/L (High)?? 01/21/2023 15:30 ?? COAG APTT 138.6 seconds (Critical)?? 01/22/2023 05:35 D-Dimer 5.14 mg/L FEU (High)?? 01/21/2023 19:30 ?? HEME OTHER Hold Lavender Top SPECIMEN DISCARDED AFTER 24 HOURS. ()?? 01/21/2023 19:08 Hold Blue Top SPECIMEN DISCARDED AFTER 4 HOURS. ()?? 01/21/2023 13:08 ?? MISC. CHEMISTRY Procalcitonin 0.56 ng/mL ()?? 01/21/2023 19:08 ? SEROLOGY INF DISEASE Legionella pneumophila Antigen NEGATIVE ()?? 01/21/2023 21:44 S. Pneumococcus Urinary Ag NEGATIVE ()?? 01/21/2023 21:44 ?? URINE OTHER Est Creatinine Clearance 60.94 mL/min ()?? 01/24/2023 02:58 ? VIROLOGY COVID-19 by RT-PCR NEGATIVE ()?? 01/21/2023 13:08 ? 30 minutes spent on discharge [1]??Progress Note; Eric Mcgraw DO 01/24/2023 13:20 EDT [2]??Diagnostic Cardiac Cath; Kalyani Caballero MD 01/25/2023 14:21 EDT * Kvng MARTÍNEZ, [facility]: PERFORM Event Display: Patient Education/Instruction Authored Date: [id number] Inpatient Adult Discharge Instructions [address] [address] Name: YONATHAN BABB : 1960 Visit: 01/21/2023 15:47:00 Current Date: 01/25/2023 18:18 Account: [id number] Inpatient Adult Discharge Instructions We would like to thank you for allowing us to assist you with your healthcare needs. The following includes patient education materials and information regarding your injury/illness. Our entire staffstrives to provide an excellent experience for our patients and their families. PLEASE ENSURE YOU FOLLOW-UP PER THE INSTRUCTIONS BELOW! ?? YOUR OPINION IS IMPORTANT TO US! Please complete the survey you may receive by mail or email. Your feedback will be used to make improvements to the healthcare experiences of our patients and their families. Surveys are administered by [employer] ?? If further treatment with your primary care physician or another doctor is recommended, it is important for you to keep the appointment. Call your primary care physician or return to the Emergency Department immediately if your condition worsens, fails to improve, or new symptoms develop. If you need to find a doctor, you can call [facility] for a referral at [phone] or toll free at [phone] or log in to [email or web address].. ?? You can view and manage your care through the patient portal or by using a health care chiki of your choosing. [employer] is a website that allows you to securely view your medical information including your hospital discharge summary, office visit summaries, medications and follow-up visits. You can also request appointments, renew medications, and request access to your medical information using a health care chiki of your choosing, or just ask a question. You can enroll at [email or web address] or register during your next office visit. You have been discharged from [facility], Patient Care Unit: D6B. If you have any questions regarding these instructions after you leave, please call us and we will be happy to assist you. [facility] Your Care Team Attending Physician Eric Mcgraw DO Consulting Providers Mandeep ROSS, Ranjan Hand; Sumit ROSS, [facility] Discharging Providers Eric Mcgraw DO Reason for Admission ACUTE RESPIRATORY FAILURE Your Diagnosis Acute respiratory failure Acute respiratory failure Acute pulmonary embolism Chronic systolic CHF (congestive heart failure) Secondary hypercoagulable state Interstitial lung disease HIV infection Tests Performed Below is a partial list of the tests performed during your hospitalization. You may have had other tests and procedures not included in this list. Please discuss all test results with your provider. ABG APTT Basic Metabolic Panel BUN CBC CBC w/ Differential Comprehensive Metabolic Panel COVID-19 (Novel Coronavirus), Rapid PCR Creatinine D Dimer Electrolytes Glucose Level GLUCOSE POC Hold Blue Top Tube HOLD LAVENDER TUBE Lactate Level LDH Legionella Antigen Urine MRSA PCR Nasal Swab ProBNP Procalcitonin Level Strep Pneumoniae Urinary Ag Troponin T, High Sensitivity CT Angio Chest CXR Portable Primary Care Provider Leola ROSS, [facility] Advance Directive Health Care Proxy on File Yes - Health Care Proxy Discharge Vitals Temperature: 98.1 DegF Height: 172.7 cm Pulse Rate: 75 bpm Weight: 69.1 kg Respiratory Rate: 16 br/min Body Mass Index: 22.53 kg/m2 Systolic Blood Pressure: 135 mm Hg Body surface area: 1.8 Diastolic Blood Pressure:??86 mm Hg??High ?? Oxygen Saturation: 96 % ?? Studies Pending All tests and labs ordered during this hospital stay have been completed unless listed below. Please discuss all pending results with your provider listed above in these instructions. ?? Add On Lab Order Beta D Glucan Assay Blood Culture Blood Culture #2 C. difficile Rapid Toxin Assay (Cdiff Rapid Toxin Assay) CBC Hemoglobin A1C (Monitoring) (Hgb A1C (Monitoring)) High??Sensitivity??Troponin T (Troponin T, High Sensitivity) Sputum Culture w/ Gram Smear What to do next Instructions From Your Doctor Discharge Orders Diet:??Regular Diet Activity:??Ambulate with assistance 3 times a day unless otherwise specified Condition:??Stable Scheduled Follow-Up Appointments 2022 8:30 AM EDT ?? Where: Cardiac Radio Broadcaster Status: Pending You Need to Schedule the Following Appointments Follow Up with??Leola ROSS, [facility] Where: [address] [place] [phone] Discharge Medications YONATHAN BABB :1960 Visit Date:01/21/2023 Medications: Please continue your medications until treatment is completed or stopped by your provider. Medications not listed below should be discontinued. Discuss any questions related to medications with your provider. What How Much When Instructions Next Dose New apixaban (apixaban Starter Pack 5 mg oral tablet) 2 tab(s) Oral Twice a day Duration: 7 Days followed by 1 tablet by mouth twice daily for 23 days ?? Pickup at [facility] 3 9pm Unchanged Albuterol (Albuterol (Eqv-ProAir HFA)) Inhalation Every 6 hours Unchanged Atorvastatin (Lipitor 40 mg oral tablet) 1 tab(s) Oral Daily at Bedtime 9pm Unchanged bictegravir/ emtricitabine/ tenofovir (Biktarvy oral tablet) 1 tab(s) Oral Daily Duration: 30 Days [place] table[place] mei. ?? 01/26 Unchanged Carvedilol (carvedilol 6.25 mg oral tablet) See instructions 1 tablet By Mouth 2 times a day ?? 9pm Unchanged dapagliflozin (Farxiga 10 mg oral tablet) See instructions take 1 tablet By Mouth Daily. ?? Unchanged Methadone (methadone 10 mg/ 5 mL oral solution) 50 Milligram Oral Daily oral solution; goes to [facility] ?? 01/26 Unchanged Montelukast (montelukast 4 mg oral granule) 1 Each Oral Daily Unchanged sacubitril-valsartan (Entresto 49 mg-51 mg oral tablet) See instructions 1 tablet By Mouth 2 times a day. note dose increase ?? 9pm Unchanged Spironolactone (spironolactone 25 mg oral tablet) 0.5 tab(s) Oral Daily take 1/ 2 tablet(12.5mg) by mouth once daily ?? Unchanged Tiotropium (Spiriva) 18 Microgram Inhalation Daily Pharmacy Information [facility] 3: [address], [place] [id number] [phone] ?? What How Much When Comments Stop Taking Aspirin (aspirin 81 mg oral delayed release tablet) 81 Milligram Oral Daily Stop Taking Furosemide (furosemide 40 mg oral tablet) See instructions take 1/ 2 tab daily ?? Stop Taking Miscellaneous Rx (-) See instructions Go to the lab and do a basic metabolic panel in 3-4 days. ?? Stop Taking PredniSONE (predniSONE 20 mg oral tablet) 2 tab(s) Oral Daily Duration: 5 Days Test Results Below is a partial list of the most recent Laboratory test results done prior to this discharge. You may have had other tests and procedures not included in this list. Please discuss all test resultswith your provider. Est Creatinine Clearance - 60.94 mL/min (01/24/2023) ABG (01/21/2023) ???pH - 7.27???pCO2 - 50 mm Hg???pO2 - 134 mm Hg???Bicarbonate, Estimated - 23 mmol/L???Specimen Type - Blood Gas - ARTERIAL???Percent O2 (FIO2) - 60 APTT (01/22/2023) ???APTT - 138.6 seconds Basic Metabolic Panel (01/24/2023) ???Sodium - 139 mmol/L???Potassium - 4.6 mmol/L???Chloride - 102 mmol/L???Bicarbonate Level - 26 mmol/L???Anion Gap - 11???Glucose Level - 156 mg/dL???BUN - 37 mg/dL???Creatinine-Blood - 1.2 mg/dL???Estimated GFR Creatinine - 67 ML/MIN/1.73 M2???Calcium - 8.8 mg/dL BUN (01/22/2023) ???BUN - 47 mg/dL CBC (01/25/2023) ???WBC - 10.2 k/mm3???RBC - 4.91 m/mm3???Hgb - 11.5 Gm/dL???Hct - 36.1 %???MCV - 73.5 femtoliters???MCH - 23.4 pg???MCHC - 31.9 g/dL???Platelet Count - 150 k/mm3???RDW-SD - 37.5 femtoliters???MPV - 11.3 femtoliters???Nucleated RBC (Automated) - 0.0 #/100 WBC'S???Abs. NRBC - 0.0 k/mm3 CBC w/ Differential (01/24/2023) ???WBC - 10.9 k/mm3???RBC - 5.05 m/mm3???Hgb - 11.7 Gm/dL???Hct - 36.8 %???MCV - 72.9 femtoliters???MCH - 23.2 pg???MCHC - 31.8 g/dL???Platelet Count - 152 k/mm3???RDW-SD - 37.6 femtoliters???MPV - 10.8 femtoliters???Nucleated RBC (Automated) - 0.0 #/100 WBC'S???Abs. NRBC - 0.0 k/mm3???Abs. Neut - 8.6 k/mm3???Abs. Lymph - 1.2 k/mm3???Abs. [place] - 1.0 k/mm3???Abs. Eo - 0.0 k/mm3???Abs. Baso - 0.0 k/mm3???Neut % - 78.3 %???Lymph % - 11.2 %???[place] % - 8.7 %???Eos % - 0.1 %???Baso % - 0.1 %???Imm Gran - 1.6 %???Abs. Imm Gran - 0.2 k/mm3 Comprehensive Metabolic Panel (01/21/2023) ???Sodium - 142 mmol/L???Potassium - 4.4 mmol/L???Chloride - 103 mmol/L???Bicarbonate Level - 24 mmol/L???Anion Gap - 15???Glucose Level - 212 mg/dL???BUN - 53 mg/dL???Creatinine-Blood - 2.2 mg/dL???Estimated GFR Creatinine - 33 ML/MIN/1.73 M2???Calcium - 9.8 mg/dL???Protein, Total - 7.9 Gm/dL???Alb umin - 4.6 Gm/dL???AG Ratio - 1.4???Alkaline Phosphatase - 139 units/L???AST (SGOT) - 65 units/L???ALT (SGPT) - 40 units/L???Bilirubin, Total - 0.4 mg/dL COVID-19 (Novel Coronavirus), Rapid PCR (01/21/2023) ???COVID-19 by RT-PCR - NEGATIVE Creatinine (01/22/2023) ???Creatinine-Blood - 1.5 mg/dL???Estimated GFR Creatinine - 50 ML/MIN/1.73 M2 D Dimer (01/21/2023) ???D-Dimer - 5.14 mg/L FEU Electrolytes (01/22/2023) ???Sodium - 134 mmol/L???Potassium - HEMOLYZED???Chloride - 102 mmol/L???Bicarbonate Level - 21 mmol/L???Anion Gap - 11 Glucose Level (01/22/2023) ???Glucose Level - 158 mg/dL GLUCOSE POC (01/22/2023) ???Glucose, POC - 165 mg/dL Hold Blue Top Tube (01/21/2023) ???Hold Blue Top - SPECIMEN DISCARDED AFTER 4 HOURS. HOLD LAVENDER TUBE (01/21/2023) ???Hold Lavender Top - SPECIMEN DISCARDED AFTER 24 HOURS. Lactate Level (01/21/2023) ???Lactate - 2.5 mmol/L LDH (01/21/2023) ???LDH - 265 units/L Legionella Antigen Urine (01/21/2023) ???Legionella pneumophila Antigen - NEGATIVE MRSA PCR Nasal Swab (01/21/2023) ???MRSA PCR Result - Negative, MRSA target DNA not detected.???S Aureus PCR Result - Positive, SA target DNA detected. ProBNP (01/21/2023) ???Nt-Probnp - 688 pg/mL Procalcitonin Level (01/21/2023) ???Procalcitonin - 0.56 ng/mL Strep Pneumoniae Urinary Ag (01/21/2023) ???S. Pneumococcus Urinary Ag - NEGATIVE Troponin T, High Sensitivity (01/21/2023) ???High Sensitivity Troponin (HSTnT) - 328 ng/L Allergies (NKA means No Known Allergies) NKA Problems No qualifying data available Education Materials Below is the list of Educational Leaflet Providered with your Discharge Instructions. Valuables and Belongings I fully understand and agree that [facility] accepts no responsibility for all my personal property including clothing, toilet articles, radios, jewelry, dentures, hearing aids, rings, money, or any other property that is in my possession or is brought to me after admission. I understand certain valuables may be placed in a hospital safe for a short period of time. I understand that the hospital is not liable for loss or damage due to accident, fire, or other natural occurrence while said property is in the safe. I accept full responsibility for any personal property that I keep with me, and will not hold the hospital responsible in case of loss or disappearance. I acknowledge that i have been encouraged to send valuables and belongings home. ?? Review of Valuable and Belonging List: With patient Date for Pt to Sign Valuables/Belongings: 01/21/23 18:29:00 ?? Other Discharge Information ? Pulmonary Rehab Status?? Pulmonary Rehab Discharge Status?? CPAP/BiPAP Mask Type: Full CPAP/BiPAP Mask Size: Medium Respiratory Rate: 16 br/min ? Common Emergency Awareness Tips IS IT A STROKE? Act FAST and Check for these signs: FACE Does the face look uneven? ARM Does one arm drift down? SPEECH Does their speech sound strange? TIME Call at any sign of stroke ?? Heart Attack Signs Chest discomfort: Most heart attacks involve discomfort in the center of the chest and lasts more than a few minutes, or goes away and comes back. It can feel like uncomfortable pressure, squeezing, fullness or pain. Discomfort in upper body: Symptoms can include pain or discomfort in one or both arms, back, neck, jaw or stomach. Shortness of breath: With or without discomfort. Other signs: Breaking out in a cold sweat, nausea, or lightheaded. Remember, MINUTES DO MATTER. If you experience any of these heart attack warning signs, call to get immediate medical attention! ?? Smoking can increase your chances of developing chronic health problems and can cause harmful effects to other family members in your house. If you smoke, you are strongly encouraged to quit. Please call [facility] Healthcare Link at [phone] or [phone] ([phone]) or log in to [email or web address] for referrals to smoking cessation programs. ?? 219 Suicide & Crisis Lifeline is available 01/03 if you or someone you know needs to find a reason to keep living. By calling 469 you'll be connected to a skilled, trained counselor at a crisis center in your area. INPATIENT DISCHARGE INSTRUCTIONS SIGNATURE PAGE YONATHAN BABB Location:[facility] Registration Date and Time:01/21/2023 15:47 EDT Primary Care Physician: Inocencio Bhagat MDid, Attending Physician: Eric Mcgraw DO, I YONATHAN BABB, have received the above patient education materials/instructions and have verbalized understanding. If ambulance or transport services are being used I further acknowledge being givena choice of service. ?? If you need to contact me, please call me at this number: . Patient/Cross Tie Turner Name: Patient/Cross Tie Turner Signature: Relationship to Patient: Witness Name/Signature: Date: * Princess Calderon RN: PERFORM Event Display: Patient Education/Instruction Authored Date: [id number] Inpatient Adult Discharge Instructions [address] [address] Name: YONATHAN BABB : 1960 Visit: 01/21/2023 15:47:00 Current Date: 01/25/2023 18:09 Account: [id number] Inpatient Adult Discharge Instructions We would like to thank you for allowing us to assist you with your healthcare needs. The following includes patient education materials and information regarding your injury/illness. Our entire staffstrives to provide an excellent experience for our patients and their families. PLEASE ENSURE YOU FOLLOW-UP PER THE INSTRUCTIONS BELOW! ?? YOUR OPINION IS IMPORTANT TO US! Please complete the survey you may receive by mail or email. Your feedback will be used to make improvements to the healthcare experiences of our patients and their families. Surveys are administered by [employer] ?? If further treatment with your primary care physician or another doctor is recommended, it is important for you to keep the appointment. Call your primary care physician or return to the Emergency Department immediately if your condition worsens, fails to improve, or new symptoms develop. If you need to find a doctor, you can call [facility] [employer] for a referral at [phone] or toll free at [phone] or log in to [email or web address].. ?? You can view and manage your care through the patient portal or by using a health care chiki of your choosing. [employer] is a website that allows you to securely view your medical information including your hospital discharge summary, office visit summaries, medications and follow-up visits. You can also request appointments, renew medications, and request access to your medical information using a health care chiki of your choosing, or just ask a question. You can enroll at [email or web address] or register during your next office visit. You have been discharged from [facility], Patient Care Unit: D6B. If you have any questions regarding these instructions after you leave, please call us and we will be happy to assist you. [facility] Your Care Team Attending Physician Eric Mcgraw DO Consulting Providers Mandeep ROSS, Ranjan Hand; Sumit ROSS, [facility] Discharging Providers Eric Mcgraw DO Reason for Admission ACUTE RESPIRATORY FAILURE Your Diagnosis Acute respiratory failure Acute respiratory failure Acute pulmonary embolism Chronic systolic CHF (congestive heart failure) Secondary hypercoagulable state Interstitial lung disease HIV infection Tests Performed Below is a partial list of the tests performed during your hospitalization. You may have had other tests and procedures not included in this list. Please discuss all test results with your provider. ABG APTT Basic Metabolic Panel BUN CBC CBC w/ Differential Comprehensive Metabolic Panel COVID-19 (Novel Coronavirus), Rapid PCR Creatinine D Dimer Electrolytes Glucose Level GLUCOSE POC Hold Blue Top Tube HOLD LAVENDER TUBE Lactate Level LDH Legionella Antigen Urine MRSA PCR Nasal Swab ProBNP Procalcitonin Level Strep Pneumoniae Urinary Ag Troponin T, High Sensitivity CT Angio Chest CXR Portable Primary Care Provider Leola ROSS, [facility] Advance Directive Health Care Proxy on File Yes - Health Care Proxy Discharge Vitals Temperature: 98.1 DegF Height: 172.7 cm Pulse Rate: 75 bpm Weight: 69.1 kg Respiratory Rate: 16 br/min Body Mass Index: 22.53 kg/m2 Systolic Blood Pressure: 135 mm Hg Body surface area: 1.8 Diastolic Blood Pressure:??86 mm Hg??High ?? Oxygen Saturation: 96 % ?? Studies Pending All tests and labs ordered during this hospital stay have been completed unless listed below. Please discuss all pending results with your provider listed above in these instructions. ?? Add On Lab Order Beta D Glucan Assay Blood Culture Blood Culture #2 C. difficile Rapid Toxin Assay (Cdiff Rapid Toxin Assay) CBC Hemoglobin A1C (Monitoring) (Hgb A1C (Monitoring)) High??Sensitivity??Troponin T (Troponin T, High Sensitivity) Sputum Culture w/ Gram Smear What to do next Instructions From Your Doctor Discharge Orders Diet:??Regular Diet Activity:??Ambulate with assistance 3 times a day unless otherwise specified Condition:??Stable Scheduled Follow-Up Appointments 2022 8:30 AM EDT ?? Where: [facility] Status: Pending You Need to Schedule the Following Appointments Follow Up with??Leola ROSS, [facility] Where: [address] [place] [id number]- Discharge Medications YONATHAN BABB :1960 Visit Date:01/21/2023 Medications: Please continue your medications until treatment is completed or stopped by your provider. Medications not listed below should be discontinued. Discuss any questions related to medications with your provider. What How Much When Instructions Next Dose New apixaban (apixaban Starter Pack 5 mg oral tablet) 2 tab(s) Oral Twice a day Duration: 7 Days followed by 1 tablet by mouth twice daily for 23 days ?? Pickup at [facility] 3 01/25/23 9pm Unchanged Albuterol (Albuterol (Eqv-ProAir HFA)) Inhalation Every 6 hours Unchanged Atorvastatin (Lipitor 40 mg oral tablet) 1 tab(s) Oral Daily at Bedtime 01/25/23 9pm Unchanged bictegravir/ emtricitabine/ tenofovir (Biktarvy oral tablet) 1 tab(s) Oral Daily Duration: 30 Days [place] [facility] table[facility] todos los mei. ?? 01/26/23 ?? Unchanged Carvedilol (carvedilol 6.25 mg oral tablet) See instructions 1 tablet By Mouth 2 times a day ?? 01/25/23 Unchanged dapagliflozin (Farxiga 10 mg oral tablet) See instructions take 1 tablet By Mouth Daily. ?? Unchanged Methadone (methadone 10 mg/ 5 mL oral solution) 50 Milligram Oral Daily oral solution; goes to [facility] ?? 01/26/23 Unchanged Montelukast (montelukast 4 mg oral granule) 1 Each Oral Daily Unchanged sacubitril-valsartan (Entresto 49 mg-51 mg oral tablet) See instructions 1 tablet By Mouth 2 times a day. note dose increase ?? 01/25/23 Unchanged Spironolactone (spironolactone 25 mg oral tablet) 0.5 tab(s) Oral Daily take 1/ 2 tablet(12.5mg) by mouth once daily ?? Unchanged Tiotropium (Spiriva) 18 Microgram Inhalation Daily Pharmacy Information [facility] 3: [address], [place] [id number] [phone] ?? What How Much When Comments Stop Taking Aspirin (aspirin 81 mg oral delayed release tablet) 81 Milligram Oral Daily Stop Taking Furosemide (furosemide 40 mg oral tablet) See instructions take 1/ 2 tab daily ?? Stop Taking Miscellaneous Rx (-) See instructions Go to the lab and do a basic metabolic panel in 3-4 days. ?? Stop Taking PredniSONE (predniSONE 20 mg oral tablet) 2 tab(s) Oral Daily Duration: 5 Days Test Results Below is a partial list of the most recent Laboratory test results done prior to this discharge. You may have had other tests and procedures not included in this list. Please discuss all test resultswith your provider. Est Creatinine Clearance - 60.94 mL/min (01/24/2023) ABG (01/21/2023) ???pH - 7.27???pCO2 - 50 mm Hg???pO2 - 134 mm Hg???Bicarbonate, Estimated - 23 mmol/L???Specimen Type - Blood Gas - ARTERIAL???Percent O2 (FIO2) - 60 APTT (01/22/2023) ???APTT - 138.6 seconds Basic Metabolic Panel (01/24/2023) ???Sodium - 139 mmol/L???Potassium - 4.6 mmol/L???Chloride - 102 mmol/L???Bicarbonate Level - 26 mmol/L???Anion Gap - 11???Glucose Level - 156 mg/dL???BUN - 37 mg/dL???Creatinine-Blood - 1.2 mg/dL???Estimated GFR Creatinine - 67 ML/MIN/1.73 M2???Calcium - 8.8 mg/dL BUN (01/22/2023) ???BUN - 47 mg/dL CBC (01/25/2023) ???WBC - 10.2 k/mm3???RBC - 4.91 m/mm3???Hgb - 11.5 Gm/dL???Hct - 36.1 %???MCV - 73.5 femtoliters???MCH - 23.4 pg???MCHC - 31.9 g/dL???Platelet Count - 150 k/mm3???RDW-SD - 37.5 femtoliters???MPV - 11.3 femtoliters???Nucleated RBC (Automated) - 0.0 #/100 WBC'S???Abs. NRBC - 0.0 k/mm3 CBC w/ Differential (01/24/2023) ???WBC - 10.9 k/mm3???RBC - 5.05 m/mm3???Hgb - 11.7 Gm/dL???Hct - 36.8 %???MCV - 72.9 femtoliters???MCH - 23.2 pg???MCHC - 31.8 g/dL???Platelet Count - 152 k/mm3???RDW-SD - 37.6 femtoliters???MPV - 10.8 femtoliters???Nucleated RBC (Automated) - 0.0 #/100 WBC'S???Abs. NRBC - 0.0 k/mm3???Abs. Neut - 8.6 k/mm3???Abs. Lymph - 1.2 k/mm3???Abs. [place] - 1.0 k/mm3???Abs. Eo - 0.0 k/mm3???Abs. Baso - 0.0 k/mm3???Neut % - 78.3 %???Lymph % - 11.2 %???[place] % - 8.7 %???Eos % - 0.1 %???Baso % - 0.1 %???Imm Gran - 1.6 %???Abs. Imm Gran - 0.2 k/mm3 Comprehensive Metabolic Panel (01/21/2023) ???Sodium - 142 mmol/L???Potassium - 4.4 mmol/L???Chloride - 103 mmol/L???Bicarbonate Level - 24 mmol/L???Anion Gap - 15???Glucose Level - 212 mg/dL???BUN - 53 mg/dL???Creatinine-Blood - 2.2 mg/dL???Estimated GFR Creatinine - 33 ML/MIN/1.73 M2???Calcium - 9.8 mg/dL???Protein, Total - 7.9 Gm/dL???Alb umin - 4.6 Gm/dL???AG Ratio - 1.4???Alkaline Phosphatase - 139 units/L???AST (SGOT) - 65 units/L???ALT (SGPT) - 40 units/L???Bilirubin, Total - 0.4 mg/dL COVID-19 (Novel Coronavirus), Rapid PCR (01/21/2023) ???COVID-19 by RT-PCR - NEGATIVE Creatinine (01/22/2023) ???Creatinine-Blood - 1.5 mg/dL???Estimated GFR Creatinine - 50 ML/MIN/1.73 M2 D Dimer (01/21/2023) ???D-Dimer - 5.14 mg/L FEU Electrolytes (01/22/2023) ???Sodium - 134 mmol/L???Potassium - HEMOLYZED???Chloride - 102 mmol/L???Bicarbonate Level - 21 mmol/L???Anion Gap - 11 Glucose Level (01/22/2023) ???Glucose Level - 158 mg/dL GLUCOSE POC (01/22/2023) ???Glucose, POC - 165 mg/dL Hold Blue Top Tube (01/21/2023) ???Hold Blue Top - SPECIMEN DISCARDED AFTER 4 HOURS. HOLD LAVENDER TUBE (01/21/2023) ???Hold Lavender Top - SPECIMEN DISCARDED AFTER 24 HOURS. Lactate Level (01/21/2023) ???Lactate - 2.5 mmol/L LDH (01/21/2023) ???LDH - 265 units/L Legionella Antigen Urine (01/21/2023) ???Legionella pneumophila Antigen - NEGATIVE MRSA PCR Nasal Swab (01/21/2023) ???MRSA PCR Result - Negative, MRSA target DNA not detected.???S Aureus PCR Result - Positive, SA target DNA detected. ProBNP (01/21/2023) ???Nt-Probnp - 688 pg/mL Procalcitonin Level (01/21/2023) ???Procalcitonin - 0.56 ng/mL Strep Pneumoniae Urinary Ag (01/21/2023) ???S. Pneumococcus Urinary Ag - NEGATIVE Troponin T, High Sensitivity (01/21/2023) ???High Sensitivity Troponin (HSTnT) - 328 ng/L Allergies (NKA means No Known Allergies) NKA Problems No qualifying data available Education Materials Below is the list of Educational Leaflet Providered with your Discharge Instructions. Valuables and Belongings I fully understand and agree that [facility] accepts no responsibility for all my personal property including clothing, toilet articles, radios, jewelry, dentures, hearing aids, rings, money, or any other property that is in my possession or is brought to me after admission. I understand certain valuables may be placed in a hospital safe for a short period of time. I understand that the hospital is not liable for loss or damage due to accident, fire, or other natural occurrence while said property is in the safe. I accept full responsibility for any personal property that I keep with me, and will not hold the hospital responsible in case of loss or disappearance. I acknowledge that i have been encouraged to send valuables and belongings home. ?? Review of Valuable and Belonging List: With patient Date for Pt to Sign Valuables/Belongings: 01/21/23 18:29:00 ?? Other Discharge Information ? Pulmonary Rehab Status?? Pulmonary Rehab Discharge Status?? CPAP/BiPAP Mask Type: Full CPAP/BiPAP Mask Size: Medium Respiratory Rate: 16 br/min ? Common Emergency Awareness Tips IS IT A STROKE? Act FAST and Check for these signs: FACE Does the face look uneven? ARM Does one arm drift down? SPEECH Does their speech sound strange? TIME Call at any sign of stroke ?? Heart Attack Signs Chest discomfort: Most heart attacks involve discomfort in the center of the chest and lasts more than a few minutes, or goes away and comes back. It can feel like uncomfortable pressure, squeezing, fullness or pain. Discomfort in upper body: Symptoms can include pain or discomfort in one or both arms, back, neck, jaw or stomach. Shortness of breath: With or without discomfort. Other signs: Breaking out in a cold sweat, nausea, or lightheaded. Remember, MINUTES DO MATTER. If you experience any of these heart attack warning signs, call to get immediate medical attention! ?? Smoking can increase your chances of developing chronic health problems and can cause harmful effects to other family members in your house. If you smoke, you are strongly encouraged to quit. Please call [facility] Healthcare Link at [phone] or 3-436-120Inkd.com ([phone] or log in to [email or web address] for referrals to smoking cessation programs. ?? 910 Suicide & Crisis Lifeline is available 01/03 if you or someone you know needs to find a reason to keep living. By calling 450 you'll be connected to a skilled, trained counselor at a crisis center in your area. INPATIENT DISCHARGE INSTRUCTIONS SIGNATURE PAGE YONATHAN BABB Location:[facility] Registration Date and Time:01/21/2023 15:47 EDT Primary Care Physician: Leola ROSS, [facility], Attending Physician: Eric Mcgraw DO, I YONATHAN BABB, have received the above patient education materials/instructions and have verbalized understanding. If ambulance or transport services are being used I further acknowledge being givena choice of service. ?? If you need to contact me, please call me at this number: . Patient/Cross Tie Turner Name: Patient/Cross Tie Turner Signature: Relationship to Patient: Witness Name/Signature: Date: Patient Care team information Care Team Personnel Name: Trixie Dorantes RN Position: [facility] RN Member Role: Primary Care Nurse Name: Irvin Painter RN Position: [facility] RN Member Role: Primary Care Nurse Name: Princess Calderon RN Position: [facility] RN Member Role: Primary Care Nurse Name: Ruy Mack DO Position: [facility] Renal MD Member Role: [employer] Consulting Physician Address: Address: [address] [place], [place] [id number] [place] [address]- Name: Joan Reilly MD Position: [facility] Physician - Infectious Disease Member Role: [employer] Consulting Physician Address: Address: [address] [place] [address] [place] [address]- Name: Dora Ho Position: [facility] Outreach Member Role: Lifetime Consulting Physician Name: Estefany Russell RN Position: [facility] RN Member Role: Primary Care Nurse Name: Lisa Cotto RN Position: [facility] RN Member Role: Primary Care Nurse Name: Loreta Bhagat MD Position: Reference Physician Member Role: PCP Address: Address: [address] [place] [id number]- [place] Name: Celestino Bauman Position: [facility] ED [facility] Member Role: Patient Care Provider Name: Eleonora Hebert MD Position: [facility] ED Medicine MD Address: Address: [address] [place] [address] [place] [address]- Name: Humera Lim Position: [facility] ED RN W/OE and Tasks Member Role: Patient Care Provider Name: Hugo Rice Position: [facility] ED [facility] Member Role: Card Sorter Name: Katy Carpenter MD Position: [facility] Resident Member Role: ED Resident Address: Address: [address] [place] [address] [place] [address]- Care Team Related Persons Name: KINGSTON BABBTER Address: home [address] [address]
--- OUTSIDE RECORDS SUMMARY | 2024-03-29 08:03 | XMS_ITS | Continuity of Care Document ---
Author Organization [facility] Address [address] [place] [address]- Care Team Providers Care Hvac Service Manager Name Role Phone Leola ROSS, [place] Primary Care Physician [place] [facility] [place] Date(s): 10/12/23 - 11/11/23 [facility] [address] [place] [address]- Attending Physician: Renny Kennedy Admitting Physician: AdmRenny zuluaga Referring Physician: Renny Kennedy Allergies, Adverse Reactions, Alerts No Known Allergies Immunizations Given and Recorded Vaccine Date Status Refusal Reason tetanus-diphtheria toxoids (Td) 11/11/22 Given tetanus/diphtheria/pertussis, acel(Tdap) 10/13/22 Recorded tetanus/diphtheria/pertussis, acel(Tdap) 12/08/12 Recorded tetanus/diphtheria/pertussis, acel(Tdap) 12/07/12 Recorded [id number] 12y+ bivalent booster vax 08/25/22 Recorded zoster vaccine, inactivated 1 05/20/22 Given zoster vaccine, inactivated 2 01/21/22 Given SARS-CoV-2 mRNA (vyopucp-pfuc-derjq) vax 12/10/21 Recorded pneumococcal 23-valent vaccine 09/10/21 [...] 12/08/12 Recorded pneumococcal 13-valent vaccine 12/07/12 Recorded 1Result Comment: Dose#2 2Result Comment: Shingrix dose#1 Medications Albuterol (Eqv-ProAir HFA) Inhalation, Every 6 hours, 0 Refills, Maintenance, 01/21/22 11:49:00 EDT, Partial fill upon patientrequest if the prescription is for a schedule II opioid drug. Start Date: 01/21/22 Status: Ordered Albuterol (Eqv-ProAir HFA) 90 mcg/inh inhalation aerosol INHALE 2 PUFFS INTO THE LUNGS 4 TIMES DAILY NEEDED FOR COUGH OR WHEEZING. Start Date: 04/04/20 Status: Ordered albuterol CFC free 90 mcg/inh inhalation aerosol 2, puffs, Inhalation, Every 6 hours, PRN, # 9 Gm, Refills 0, Maintenance, 02/09/20 9:52:00 EDT, Aerosol Start Date: 02/09/20 Status: Ordered aspirin 81 mg oral delayed release tablet 81 mg, By Mouth, Daily, # 30 tablet, Refills 0, Tot. Refills 0, Maintenance, 04/04/20 13:14:00 EDT,Route to Pharmacy Electronically, [facility], 173, cm, 04/04/20 8:30:00 EDT, Height, 60, kg, 03/28/20 16:33:00 EDT, Dry Weight Start Date: 04/04/20 Status: Ordered atorvastatin 40 mg oral tablet 1 tablet = 40 mg, By Mouth, Daily at bedtime, # 30 tablet, 0 Refills, Maintenance, 04/04/20 13:14:00 EDT, Tablet, [facility], 173, cm, 04/04/20 8:30:00 EDT, Height, 60, kg, 03/28/20 16:33:00 EDT, Dry Weight Start Date: 04/04/20 Status: Ordered Biktarvy oral tablet See Instructions, JULIANO FRANCIS TABLETA TODOS [place], # 30 tablet, 5 Refills, Maintenance, 07/05/23 16:31:00 EST, [id number], 30, TOME FRANCIS TABLETA TODOS [place] LOPEZ, 172.7, cm, 04/05/23 10:37:00 EDT, Height, 69, kg, 01/21/23 18:18:00 EDT, Dry Weight Start Date: 07/05/23 Status: Ordered carvedilol 6.25 mg oral tablet See Instructions, 1 tablet By Mouth 2 times a day, # 60 tablet, Refills 2, Tot. Refills 2, Maintenance, 10/14/22 13:17:00 EST, Instructions Replace Required Details, Route to Pharmacy Electronically,[facility]/pharmacy #[id number], Partial fill upon patient reque... Start Date: 10/14/22 Status: Ordered Coreg 6.25 mg oral tablet 6.25 mg, 1, tablet, By Mouth, 2 times a day, # 60 tablet, Refills 0, Tot. Refills 0, Maintenance, 04/04/20 13:14:00 EDT, Route to Pharmacy Electronically, [facility], 173, cm, 04/04/20 8:30:00 EDT, Height, 60, kg, 03/28/20 16:33:00 EDT,... Start Date: 04/04/20 Status: Ordered Entresto 49 mg-51 mg oral tablet See Instructions, 1 tablet By Mouth 2 times a day. note dose increase, # 30 tablet, 11 Refills, Maintenance, 04/05/23 10:51:00 EDT, [facility]/pharmacy #[id number], Partial fill upon patient request if the prescription is for a schedule II opioid drug., 1 tablet B... Start Date: 04/05/23 Status: Ordered Farxiga 10 mg oral tablet See Instructions, take 1 tablet By Mouth Daily., # 30 tablet, 2 Refills, Maintenance, 10/14/22 13:22:00 EST, [facility]/pharmacy #[id number], new start farxiga, 73.8, kg, 08/31/22 15:22:00 EST, Dry Weight Start Date: 10/14/22 Status: Ordered fluticasone 50 mcg/inh nasal spray PUMP 2 SPRAYS INTO EACH NOSTRIL TWICE DAILY FOR 1 WEEK THEN ONCE DAILY NEEDED Start Date: 04/04/20 Status: Ordered fluticasone 50 mcg/inh nasal spray 1 sprays, Nares, Both, Daily in AM, 0 Refills, Maintenance, 02/06/23 9:55:00 EDT, [place], Partial fill upon patient request if the prescription is for a schedule II opioid drug. Start Date: 02/06/23 Status: Ordered Incruse Ellipta 62.5 mcg/inh inhalation powder TOME FRANCIS INHALACI N POR V A ORAL TODOS LOS D Start Date: 04/04/20 Status: Ordered Lipitor 40 mg oral tablet 1 tablet = 40 mg, By Mouth, Daily at bedtime, 0 Refills, Maintenance, 01/25/23 15:38:00 EDT, Tablet, Partial fill upon patient request if the prescription is for a schedule II opioid drug. Start Date: 01/25/23 Status: Ordered methadone 10 mg/5 mL oral solution = 50 mg, By Mouth, Daily, oral solution; goes to [facility], 0 Refills, Maintenance, 08/31/22 16:53:00 EST, Partial fill upon patient request if the prescription is for a schedule II opioid drug. Start Date: 08/31/22 Status: Ordered methadone 40 mg oral tablet, dispersible 50, By Mouth, Daily, 0 Refills, Maintenance, 02/09/20 9:51:00 EDT, Partial fill upon patient request Start Date: 02/09/20 Status: Ordered Methadone Liquid = 50 mg, By Mouth, Daily, 0 Refills, Maintenance, 04/04/20 13:13:00 EDT, Solution, Partial fill upon patient request Start Date: 04/04/20 Status: Ordered montelukast 4 mg oral granule 1 each = 4 mg, By Mouth, Daily, # 30 each, 0 Refills, Maintenance, 01/21/22 11:49:00 EDT, [place], Partial fill upon patient request if the prescription is for a schedule II opioid drug. Start Date: 01/21/22 Status: Ordered Spiriva Respimat 60 ACT 2.5 mcg/inh inhalation aerosol 2 puffs = 5 mcg, Inhalation, Daily Start Date: 02/06/23 Status: Ordered spironolactone 25 mg oral tablet 12.5 mg, 0.5, tablet, By Mouth, Daily, take 1/2 tablet(12.5mg) by mouth once daily, # 45 tablet, Refills 1, Tot. Refills 1, Maintenance, 08/18/23 10:10:00 EST, Route to Pharmacy Electronically, [facility]/pharmacy #[id number], [facility] : note dose decrease please cance... Start Date: 08/18/23 Stop Date: 02/14/24 Status: Ordered Symbicort 160mcg/4.5mcg Inhaler 2, puffs, Inhalation, 2 times a day, Maintenance, 02/06/23 9:55:00 EDT, Aerosol Start Date: 02/06/23 Status: Ordered Problem List Condition Confirmation Course Effective Dates Status H ealth Status Informant Nonischemic cardiomyopathy Confirmed Active Heart failure with reduced ejection fraction Confirmed Active History of cocaine abuse Confirmed Active History of heroin abuse Confirmed Active HIV infection Confirmed Active COPD with emphysema Confirmed Active Tobacco use Confirmed Active Social History Social History Type Response Tobacco Use: 4 or less cigar ettes(less than 1/4 pack)/day in last 30 days. Interested in cessation: No. No, 39 Number of years:. Cessation attempts: 4. Tobacco user in household: No. Sex Patient Care team information Care Team Personnel Name: Marilee Rodas RN Position: [facility] RN Member Role: Primary Care Nurse Name: Ivone Galicia RN Position: [facility] RN Member Role: Primary Care Nurse Name: Marilee Chaudhry RN Position: [facility] SN RN Member Role: Primary Care Nurse Name: Nataliia Pulido RN Position: [facility] RN Supv Member Role: Primary Care Nurse Name: Rajani Anderson Position: [facility] RN Member Role: Primary Care Nurse Name: Ivone Herrera RN Position: [facility] RN Member Role: Primary Care Nurse Name: Helena Sutton RN Position: [facility] RN Member Role: Primary Care Nurse Name: Ruy Mack DO Position: [facility] Renal MD Member Role: Lifetime Consulting Physician Address: Address: [address] [place], [place] [address] [place] [address]- Name: Joan Reilly MD Position: [facility] Physician - Infectious Disease Member Role: Lifetime Consulting Physician Address: Address: [address] [place] [address] [place] [address]- Name: Dora Ho Position: [facility] Outreach Member Role: Lifetime Consulting Physician Name: Heike Smalls RN Position: [facility] RN Member Role: Primary Care Nurse Name: Lisa Cotto RN Position: [facility] RN Member Role: Primary Care Nurse Name: Loreta Bhagat MD Position: Reference Physician Member Role: PCP Address: Address: [address] [place] [address] SC[place] Perez [address]- Care Team Related Persons Name: KINGSTON BABBTER Address: home [address] [address]
--- OUTSIDE RECORDS SUMMARY | 2024-03-29 08:03 | XMS_ITS | Continuity of Care Document ---
Author Organization [facility] Address [address] [place] [address]- Care Team Providers Care Dry Wall Finisher Name Role Phone Kaya Kowalskidominik Maryjo KIM Primary Care Jessica pfeiffer Encounter [facility] [place] Date(s): 02/09/20 - 02/11/[address] [address]- [facility] Encounter Diagnosis Community acquired pneumonia(Final) - 02/09/20 Sepsis with acute hypoxic respiratory failure(Final) - 02/09/20 Discharge Disposition: A-D/C Home Attending Physician: Carol Neumann MD Admitting Physician: Beto Veras MD Referring Physician: Not on Staff, Referring MD Allergies, Adverse Reactions, Alerts No Known Medication Allergies Immunizations Not Given Vaccine Date Status Refusal Reason pneumococcal 23-valent vaccine 02/10/20 Not Given Patient Refuses Medications albuterol CFC free 90 mcg/inh inhalation aerosol 2, puffs, Inhalation, Every 6 hours, PRN, # 9 Gm, Refills 0, Maintenance, 02/09/20 9:52:00 EDT, Aerosol Start Date: 02/09/20 Status: Ordered Augmentin 875 mg-125 mg oral tablet 1 tablet, By Mouth, Every 12 hours, for 4 days, last dose on 14 february., # 8 tablet, 0 Refills, Acute 02/15/20 12:47:00 EDT, 02/11/20 12:47:00 EDT, Tablet, [facility], 172, cm, 02/11/20 7:42:00 EDT, Height, 64, kg, 02/10/20 15:04:00 EDT,... Start Date: 02/11/20 Stop Date: 02/15/20 Status: Ordered Augmentin 875 mg-125 mg oral tablet 1 tablet, By Mouth, Every 12 hours, for 4 days, last dose on 14 february., # 8 tablet, 0 Refills, Acute 02/19/20 12:47:00 EDT, 02/15/20 12:47:00 EDT, Tablet, [facility]/pharmacy #[id number], 172, cm, 02/11/20 7:42:00 EDT, Height, 64, kg, 02/10/20 15:04:00 EDT, Dry We... Start Date: 02/15/20 Stop Date: 02/19/20 Status: Ordered Biktarvy oral tablet 1 tablet, By Mouth, Daily, # 30 tablet, 0 Refills, Maintenance, 02/09/20 9:17:00 EDT, Tablet Start Date: 02/09/20 Status: Ordered methadone 40 mg oral tablet, dispersible 50, By Mouth, Daily, 0 Refills, Maintenance, 02/09/20 9:51:00 EDT, Partial fill upon patient request Start Date: 02/09/20 Status: Ordered Results Orders for Microbiology Reports Name Date Sputum Culture w/ Gram Smear 02/10/20 Microbiology Reports TEST:Sputum Culture STATUS:Auth (Verified) BODY SITE: SOURCE:EXPECT COLLECTED DATE/TIME:02/10/20 6:07 PM Sputum Culture SPECIMEN DESCRIPTION : EXPECTORATED SPUTUM SPECIAL REQUESTS : NONE GRAM STAIN : 4+ SQ.EPITHELIAL CELLS 2+ WHITE BLOOD CELLS 4+ GRAM POSITIVE COCCI 2+ GRAM POSITIVE RODS 2+ GRAM NEGATIVE RODS CULTURE : MICROSCOPIC EXAM SHOWS SQUAMOUS EPITHELIAL CELLS INDICATIVE OF OROPHARYNGEAL CONTAMINATION. PLEASE RECOLLECT APPROPRIATE SPECIMEN FOR CULTURE IF CLINICALLY INDICATED. REPORT STATUS : FINAL 02/11/2020 Radiology Reports * Exam Date Time Procedure Performing Provider Status 02/09/20 12:38 AM Chest Portable Dillon Yap; Auth (Verified) Notes: (Chest Portable) Reason For Exam: Shortness of Breath RESULT: Chest Portable Chest Portable Reason: Shortness of Breath; Clinical Question(s): CHF COMPARISON: None. FINDINGS: LINES AND TUBES: None. LUNGS AND PLEURA: Diffusely increased opacity in both lungs with developing consolidation at the right lung base. There is a background of emphysema. There is mild bronchial wall thickening and a few septal lines on the left. Blunting of costophrenic angles could represent small pleural fluid or flattening of diaphragms. No pneumothorax. HEART, MEDIASTINUM AND HAO: Heart is normal in size. Normal mediastinal and hilar contour. BONES AND SOFT TISSUES: No acute abnormality. IMPRESSION: Findings suggest atypical pneumonia or other lung injury against a background of emphysema. There is a degree of interstitial edema which could be related to infection or superimposed CHF. WSN: [id number] Ordering Physician: Oneida Rojas Dictated By: Shanthi Huggins MD Dictated Date/Time: 02/09/20 7:38 am Reviewed By: Shanthi Huggins MD Signed By: Shanthi Huggins MD Signed Date/Time: 02/09/20 7:38 am Transcribed By: TRU Transcribed Date/Time: 02/09/20 7:37 am Vital Signs Most recent to oldest [Reference Range]: 1 2 3 Height 172 cm (02/11/20 7:42 AM) 172 cm (02/11/20 3:53 AM) 172 cm (02/10/20 11:29 PM) Weight 64 kg (02/09/20 5:06 PM) Oxygen Saturation [94-100 %] 94 % (02/11/20 7:42 AM) 99 % (02/11/20 3:53 AM) 100 % (02/10/20 11:29 PM) Pulse Rate [55-90 bpm] 92 bpm *H* (02/11/20 7:42 AM) 84 bpm (02/11/20 3:53 AM) 80 bpm (02/10/20 11:29 PM) Body Mass Index [18.5-24.99] 21.63 (02/09/20 5:06 PM) Blood Pressure [90-138/55-84 mm Hg] 119/81mm Hg (02/11/20 7:42 AM) 129/89mm Hg (02/11/20 3:53 AM) 141/70mm Hg *H* (02/10/20 11:29 PM) Respiratory Rate [16-30 br/min] 18 br/min (02/11/20 9:24 AM) 18 br/min (02/11/20 8:24 AM) 18 br/min (02/11/20 7:42 AM) Temperature [96.8-100.4 DegF] 97.8 DegF (02/11/20 7:42 AM) 97.8 DegF (02/11/20 3:53 AM) 97.9 DegF (02/10/20 11:29 PM) Liters per Minute 2 L/min (02/10/20 11:29 PM) 2 L/min (02/10/20 11:12 AM) 3 L/min (02/10/20 7:28 AM) Mode of Delivery (Oxygen) Room air (02/11/20 7:42 AM) Room air (02/11/20 3:53 AM) Nasal cannula (02/10/20 11:29 PM) Blood pressure sites Arm, left (02/11/20 7:42 AM) Arm, left (02/11/20 3:53 AM) Arm, left (02/10/20 11:29 PM) Temperature Route Oral (02/11/20 7:42 AM) Oral (02/11/20 3:53 AM) Oral (02/10/20 11:29 PM) Dry Weight 64 kg (02/09/20 5:06 PM) Social History Social History Type Response Sex Male
--- OUTSIDE RECORDS SUMMARY | 2024-03-29 08:03 | XMS_ITS | Continuity of Care Document ---
Author Organization [facility] Address [address] [place] [address]- Care Team Providers Care Central Supply Technician Supervisor Name Role Phone Leola ROSS, [place] Primary Care Physician Encounter [facility] [place] Date(s): 10/20/23 - 11/19/23 [facility] [address] [place] [id number] Attending Physician: Renny Kennedy Admitting Physician: AdmRenny zuluaga Referring Physician: AdmtrRenny Allergies, Adverse Reactions, Alerts No Known Allergies Immunizations Given and Recorded Vaccine Date Status Refusal Reason tetanus-diphtheria toxoids (Td) 11/11/22 Given tetanus/diphtheria/pertussis, acel(Tdap) 10/13/22 Recorded tetanus/diphtheria/pertussis, acel(Tdap) 12/08/12 Recorded tetanus/diphtheria/pertussis, acel(Tdap) 12/07/12 Recorded [id number] 12y+ bivalent booster vax 08/25/22 Recorded zoster vaccine, inactivated 1 05/20/22 Given zoster vaccine, inactivated 2 01/21/22 Given SARS-CoV-2 mRNA (ukzeyrq-vtrs-aozxm) vax 12/10/21 Recorded pneumococcal 23-valent vaccine 09/10/21 [...] Maintenance, 04/04/20 13:14:00 EDT,Route to Pharmacy Electronically, [facility], 173, cm, 04/04/20 8:30:00 EDT, Height, 60, kg, 03/28/20 16:33:00 EDT, Dry Weight Start Date: 04/04/20 Status: Ordered atorvastatin 40 mg oral tablet 1 tablet = 40 mg, By Mouth, Daily at bedtime, # 30 tablet, 0 Refills, Maintenance, 04/04/20 13:14:00 EDT, Tablet, [facility], 173, cm, 04/04/20 8:30:00 EDT, Height, 60, kg, 03/28/20 16:33:00 EDT, Dry Weight Start Date: 04/04/20 Status: Ordered Biktarvy oral tablet See Instructions, EMILE FRANCIS TABLETA TODOS [place], # 30 tablet, 5 Refills, Maintenance, 07/05/23 16:31:00 EST, [id number], 30, TOME FRANICS TABLETA TODOS [place], 172.7, cm, 04/05/23 10:37:00 EDT, Height, 69, kg, 01/21/23 18:18:00 EDT, Dry Weight Start Date: 07/05/23 Status: Ordered carvedilol 6.25 mg oral tablet See Instructions, 1 tablet By Mouth 2 times a day, # 60 tablet, Refills 2, Tot. Refills 2, Maintenance, 10/14/22 13:17:00 EST, Instructions Replace Required Details, Route to Pharmacy Electronically,[facility]/pharmacy #[id number], Partial fill upon patient reque... Start Date: 10/14/22 Status: Ordered Coreg 6.25 mg oral tablet 6.25 mg, 1, tablet, By Mouth, 2 times a day, # 60 tablet, Refills 0, Tot. Refills 0, Maintenance, 04/04/20 13:14:00 EDT, Route to Pharmacy Electronically, [facility], 173, cm, 04/04/20 8:30:00 EDT, Height, 60, kg, 03/28/20 16:33:00 EDT,... Start Date: 04/04/20 Status: Ordered Entresto 49 mg-51 mg oral tablet See Instructions, 1 tablet By Mouth 2 times a day. note dose increase, # 30 tablet, 11 Refills, Maintenance, 04/05/23 10:51:00 EDT, [facility]/pharmacy #[id number], Partial fill upon patient request if the prescription is for a schedule II opioid drug., 1 tablet B... Start Date: 04/05/23 Status: Ordered Farxiga 10 mg oral tablet See Instructions, take 1 tablet By Mouth Daily., # 30 tablet, 2 Refills, Maintenance, 10/14/22 13:22:00 EST, [facility]/pharmacy #[id number], new start farxiga, 73.8, kg, 08/31/22 15:22:00 EST, Dry Weight Start Date: 10/14/22 Status: Ordered fluticasone 50 mcg/inh nasal spray PUMP 2 SPRAYS INTO EACH NOSTRIL TWICE DAILY FOR 1 WEEK THEN ONCE DAILY NEEDED Start Date: 04/04/20 Status: Ordered fluticasone 50 mcg/inh nasal spray 1 sprays, Nares, Both, Daily in AM, 0 Refills, Maintenance, 02/06/23 9:55:00 EDT, [place], Partial fill upon patient request if the [...] By Mouth, Daily, oral solution; goes to [facility], 0 Refills, Maintenance, 08/31/22 16:53:00 EST, [...] 08/18/23 10:10:00 EST, Route to Pharmacy Electronically, [facility]/pharmacy #[id number], [facility] : note dose decrease please cance... Start [...] 4. Tobacco user in household: No. Sex Laboratory * Event Display: Non Lab Results Authored Date: Patient Care team information Care Team Personnel Name: Marilee Rodas RN Position: [facility] RN Member Role: Primary Care Nurse Name: Ivone Galicia RN Position: [facility] RN Member Role: Primary Care Nurse Name: Marilee Chaudhry RN Position: [facility] SN RN Member Role: Primary Care Nurse Name: Nataliia Pulido RN Position: [facility] RN Krishna Member Role: Primary Care Nurse Name: Rajani Anderson Position: [facility] RN Member Role: Primary Care Nurse Name: Ivone Herrera RN Position: [facility] RN Member Role: Primary Care Nurse Name: Helena Sutton RN Position: [facility] RN Member Role: Primary Care Nurse Name: Ruy Mack DO Position: [facility] Renal MD Member Role: Lifetime Consulting Physician Address: Address: [address] [place] [address] [address] [facility] [place] [address]- Name: Joan Reilly MD Position: [facility] Physician - Infectious Disease Member Role: Lifetime Consulting Physician Address: Address: [address] [place] [address] [place] [address]- Name: Dora Ho Position: [facility] Outreach Member Role: Lifetime Consulting Physician Name: Heike Smalls RN Position: [facility] RN Member Role: Primary Care Nurse Name: Lisa Cotto RN Position: [facility] RN Member Role: Primary Care Nurse Name: Loreta Bhagat MD Position: Reference Physician Member Role: PCP Address: Address: [address] [place] [address]- Care Team Related Persons Name: YONATHAN BABB Address: home [address] [address]
--- OUTSIDE RECORDS SUMMARY | 2024-03-29 08:03 | XMS_ITS | Continuity of Care Document ---
Author Organization [facility] Address [address] [place] [address]- Care Team Providers Care Hematology Oncology Consultant Name Role Phone Leola ROSS, [facility] Primary Care Physician [place] [facility] [place] [facility] [address] [place] [id number] Attending Physician: Not on Staff, Attending MD Allergies, Adverse Reactions, Alerts No Known Allergies Immunizations Given and Recorded Vaccine Date Status Refusal Reason zoster vaccine, inactivated 1 05/20/22 Given zoster vaccine, inactivated 2 01/21/22 Given SARS-CoV-2 mRNA (vfuiagn-mmdo-kutre) vax 12/10/21 Recorded pneumococcal 23-valent vaccine 09/10/21 Given influenza virus vaccine, inactivated 08/06/21 Devin rded influenza virus vaccine, inactivated 06/14/19 Give n SARS-CoV-2 (COVID-19) mRNA-1273 vaccine 08/06/21 R ecorded SARS-CoV-2 (COVID-19) mRNA-1273 vaccine 01/10/21 R ecorded SARS-CoV-2 (COVID-19) mRNA-1273 vaccine 12/04/20 R ecorded tetanus/diphtheria/pertussis, acel(Tdap) 12/07/12 Recorded pneumococcal 13-valent vaccine 12/07/12 Recorded 1Result Comment: Dose#2 2Result Comment: Shingrix dose#1 Medications Albuterol (Eqv-ProAir HFA) Inhalation, Every 6 hours, 0 Refills, Maintenance, 01/21/22 11:49:00 EDT, Partial fill upon patientrequest if the prescription is for a schedule II opioid drug. Start Date: 01/21/22 Status: Ordered Biktarvy oral tablet See Instructions, TOME FRANCIS TABLETA TOS [place], # 30 tablet, 5 Refills, Maintenance, 05/15/22 12:48:00 EDT, [id number], 30, JULIANO BLANCO TABLETSalomón LOPEZ Start Date: 05/15/22 Status: Ordered ledipasvir-sofosbuvir 90 mg-400 mg oral tablet 1 tablet, By Mouth, Daily, for 28 days, DO NOT start first bottle until your appointment with Nurse., # 28 tablet, 2 Refills, Acute 08/24/22 10:29:00 EST, 06/01/22 10:29:00 EDT, Tablet, [facility] [place] obtained and approved 05/29/2022... Start Date: 06/01/22 Stop Date: 08/24/22 Status: Ordered montelukast 4 mg oral granule [...] opioid drug. Start Date: 05/20/22 Status: Ordered Social History Social History Type Response Smoking Status 5-9 cigarettes (betw een 1/4 to 1/2 pack)/day in last 30 days entered on: 09/10/21 Sex Patient Care team information Care Team Personnel Name: Ruy Mack DO Position: [facility] Renal MD Member Role: Lifetime Consulting Physician Address: Address: [address] [place] [address] [address] [facility] [place] [address]- Name: Joan Reilly MD Position: [facility] Infectious Disease MD Member Role: Lifetime Consulting Physician Address: Address: [address] [place] [address] [place] [address]- Name: Dora Ho Position: [facility] Outreach Member Role: Lifetime Consulting Physician Name: Loreta Bhagat MD Position: Reference Physician Member Role: PCP Address: Address: [address] [place] [address]- Care Team Related Persons Name: YONATHAN BABB Address: home [address] [address]
--- OUTSIDE RECORDS SUMMARY | 2024-03-29 08:04 | XMS_ITS | Continuity of Care Document ---
Author Organization [facility] ter Address [address] [place] [id number]- Care Team Providers Care Master Esthetician Name Role Phone Leola ROSS, Loreta Primary Care Physician Encounter [facility] Date(s): 02/06/23 - 02/10/[address] [address]- Encounter Diagnosis Endotracheally intubated(Final) - 02/05/23 Discharge Disposition: A-D/C Home Attending Physician: Estefani Couch MD Admitting Physician: Salbador Beckwith MD Referring Physician: Not on Staff, Referring MD Allergies, Adverse Reactions, Alerts No Known Allergies Immunizations Given and Recorded Vaccine Date Status Refusal Reason tetanus-diphtheria toxoids (Td) 11/11/22 Given [id number] 12y+ bivalent booster vax 08/25/22 Recorded zoster vaccine, inactivated 1 05/20/22 Given zoster vaccine, inactivated 2 01/21/22 Given SARS-CoV-2 mRNA ([id number]) vax 12/10/21 Recorded pneumococcal 23-valent vaccine 09/10/21 [...] acel(Tdap) 12/08/12 Recorded tetanus/diphtheria/pertussis, acel(Tdap) 12/07/12 Recorded Not Given Vaccine Date Status Refusal Reason pneumococcal 23-valent vaccine 02/10/20 Not Given Patient Refuses 1Result Comment: Dose#2 2Result Comment: Shingrix dose#1 Medications Albuterol (Eqv-ProAir HFA) Inhalation, Every 6 hours, 0 Refills, Maintenance, 01/21/22 11:49:00 EDT, Partial fill upon patientrequest if the prescription is for a schedule II opioid drug. Start Date: 01/21/22 Status: Ordered albuterol CFC free 90 mcg/inh inhalation aerosol 2, puffs, Inhalation, Every 6 hours, PRN, # 9 Gm, Refills 0, Maintenance, 02/09/20 9:52:00 EDT, Aerosol Start Date: 02/09/20 Status: Ordered apixaban Starter Pack 5 mg oral tablet 2 tablet = 10 mg, By Mouth, 2 times a day, followed by 1 tablet by mouth twice daily for 23 days, #74 tablet, 0 Refills, Maintenance, 01/26/23 9:00:00 EDT, [facility], Partial fill upon patient request if the prescription is for a sched... Start Date: 01/26/23 Stop Date: 02/02/23 Status: Ordered Aspirin Low Dose 81 mg oral delayed release tablet 1 tablet = 81 mg, By Mouth, Daily, Maintenance, 02/06/23 9:55:00 EDT, EC Tablet, Partial fill upon patient request if the prescription is for a schedule II opioid drug. Start Date: 02/06/23 Status: Ordered Biktarvy oral tablet 1 tablet, By Mouth, Daily, [facility] # 30 tablet, 5 Refills, Maintenance, 12/04/22 12:22:00 EDT, [facility]/pharmacy #[id number], 1 tablet By Mouth Daily,x30 days,Instr:[facility] [place]., 73.8, kg, 08/31/22 15:22:00 EST, Dry... Start Date: 12/04/22 Stop Date: 06/02/23 Status: Ordered Biktarvy oral tablet 1 tablet, By Mouth, Daily, # 30 tablet, 0 Refills, Maintenance, 02/09/20 9:17:00 EDT, Tablet Start Date: 02/09/20 Status: Ordered carvedilol 6.25 mg oral tablet See Instructions, 1 tablet By Mouth 2 times a day, # 60 tablet, Refills 2, Tot. Refills 2, Maintenance, 10/14/22 13:17:00 EST, Instructions Replace Required Details, Route to Pharmacy Electronically,[facility]/pharmacy #[id number], Partial fill upon patient reque... Start Date: 10/14/22 Status: Ordered carvedilol 6.25 mg oral tablet 6.25 mg, Tablet, By Mouth, hold SBP<100, 02/09/23 21:00:00 EDT Start Date: 02/09/23 Stop Date: 02/09/23 Status: Completed carvedilol 6.25 mg oral tablet 6.25 mg, Tablet, By Mouth, hold SBP<100, 02/10/23 9:00:00 EDT Start Date: 02/10/23 Stop Date: 02/10/23 Status: Completed Entresto 49 mg-51 mg oral tablet See Instructions, 1 tablet By Mouth 2 times a day. note dose increase, # 60 tablet, 2 Refills, Maintenance, 11/18/22 13:27:00 EDT, [facility]/pharmacy #[id number], Partial fill upon patient request if the prescription is for a schedule II opioid drug., 1 tablet By... Start Date: 11/18/22 Status: Ordered Farxiga 10 mg oral tablet See Instructions, take 1 tablet By Mouth Daily., # 30 tablet, 2 Refills, Maintenance, 10/14/22 13:22:00 EST, [facility]/pharmacy #[id number], new start farxiga, 73.8, kg, 08/31/22 15:22:00 EST, Dry Weight Start Date: 10/14/22 Status: Ordered fluticasone 50 mcg/inh nasal spray 1 sprays, Nares, Both, Daily in AM, 0 Refills, Maintenance, 02/06/23 9:55:00 EDT, [place], Partial fill upon patient request if the prescription is for a schedule II opioid drug. Start Date: 02/06/23 Status: Ordered furosemide 40 mg oral tablet 40 mg, 1, tablet, By Mouth, Daily, Maintenance, 02/06/23 9:57:00 EDT, Partial fill upon patient request if the prescription is for a schedule II opioid drug. Start Date: 02/06/23 Status: Ordered levoFLOXacin 750 mg oral tablet = 750 mg, By Mouth, Every 24 hours, for 5 days, First dose tomorrow, # 5 tablet, 0 Refills, Acute 02/16/23 9:00:00 EDT, 02/11/23 9:00:00 EDT, Tablet, [facility] 3, Partial fill upon patient request if the prescription is for a schedule II... Start Date: 02/11/23 Stop Date: 02/16/23 Status: Ordered Lipitor 40 mg oral tablet 1 tablet = 40 mg, By Mouth, Daily at bedtime, 0 Refills, Maintenance, 01/25/23 15:38:00 EDT, Tablet, Partial fill upon patient request if the prescription is for a schedule II opioid drug. Start Date: 01/25/23 Status: Ordered methadone 10 mg/5 mL oral solution = 50 mg, By Mouth, Daily, oral solution; goes to [facility], 0 Refills, Maintenance, 08/31/22 16:53:00 EST, Partial fill upon patient request if the prescription is for a schedule II opioid drug. Start Date: 08/31/22 Status: Ordered methadone 40 mg oral tablet, dispersible 50, By Mouth, Daily, 0 Refills, Maintenance, 02/09/20 9:51:00 EDT, Partial fill upon patient request Start Date: 02/09/20 Status: Ordered Methadone Tablet 50 mg, Tablet, By Mouth, 02/10/23 9:00:00 EDT Start Date: 02/10/23 Stop Date: 02/10/23 Status: Completed montelukast 4 mg oral granule 1 each = 4 mg, By Mouth, Daily, # 30 each, 0 Refills, Maintenance, 01/21/22 11:49:00 EDT, Granule, Partial fill upon patient request if the prescription is for a schedule II opioid drug. Start Date: 01/21/22 Status: Ordered predniSONE 20 mg oral tablet = 40 mg, By Mouth, Daily, for 3 days, # 6 tablet, 0 Refills, Acute 02/13/23 12:40:00 EDT, 02/10/23 12:40:00 EDT, Tablet, [facility], Partial fill upon patient request if the prescription is for a schedule II opioid drug., 172.7, cm, 01/07... Start Date: 02/10/23 Stop Date: 02/13/23 Status: Ordered Spiriva Respimat 60 ACT 2.5 mcg/inh inhalation aerosol 2 puffs = 5 mcg, Inhalation, Daily Start Date: 02/06/23 Status: Ordered spironolactone 25 mg oral tablet 12.5 mg, 0.5, tablet, By Mouth, Daily, take 1/2 tablet(12.5mg) by mouth once daily, # 15 tablet, Refills 2, Tot. Refills 2, Maintenance, 12/28/22 12:31:00 EDT, Route to Pharmacy Electronically, [facility]/pharmacy #[id number], [facility] : note dose decrease please cance... Start Date: 12/28/22 Status: Ordered Symbicort 160mcg/4.5mcg Inhaler 2, puffs, Inhalation, 2 times a day, Maintenance, 02/06/23 9:55:00 EDT, Aerosol Start Date: 02/06/23 Status: Ordered Results Orders for Microbiology Reports Name Date Sputum Culture w/ Gram Smear 02/06/23 Blood Culture 02/06/23 Blood Culture #2 02/06/23 Microbiology Reports TEST:Blood Culture, Second Order STATUS:Unauthenticated BODY SITE: SOURCE:Blood COLLECTED DATE/TIME:02/06/23 5:04 AM Blood Culture, Second Order SPECIMEN DESCRIPTION : BLOOD L HAND SPECIAL REQUESTS : NONE CULTURE : NO GROWTH 4 DAYS REPORT STATUS : PRELIMINARY REPORT TEST:Blood Culture STATUS:Unauthenticated BODY SITE: SOURCE:Blood COLLECTED DATE/TIME:02/06/23 4:46 AM Blood Culture SPECIMEN DESCRIPTION : BLOOD CETRAL LINE SPECIAL REQUESTS : NONE CULTURE : NO GROWTH 4 DAYS REPORT STATUS : PRELIMINARY REPORT TEST:Sputum Culture STATUS:Auth (Verified) BODY SITE: SOURCE:ENDOTR COLLECTED DATE/TIME:02/06/23 4:00 AM Sputum Culture SPECIMEN DESCRIPTION : ENDOTRACHEAL ASPIRATE SPECIAL REQUESTS : NONE GRAM STAIN : 1+ POLYMORPHONUCLEAR LEUKOCYTES 1+ SQ.EPITHELIAL CELLS 1+ GRAM NEGATIVE RODS CULTURE : 3+ PSEUDOMONAS AERUGINOSA This isolate was identified using Maldi-TOF system These AST results were performed on the Microscan ID and AST system REPORT STATUS : FINAL 02/08/2023 ORGANISM 3+ PSEUDOMONAS AERUGINOSA This isolate was identified using Maldi-TOF system These AST results were performed on the Microscan ID and AST system METHOD MIN. INHIB. CONC. (MCG/ML) CEFEPIME SUSCEPTIBLE CEFTAZIDIME SUSCEPTIBLE CIPROFLOXACIN SUSCEPTIBLE GENTAMICIN SUSCEPTIBLE LEVOFLOXACIN SUSCEPTIBLE MEROPENEM SUSCEPTIBLE PIPERACILLIN/TAZOBAC INTERMEDIATE Radiology Reports * Exam Date Time Procedure Performing Provider Status 02/06/23 3:35 AM Chest Portable Bety Hillman; Auth (Verified) Notes: (Chest Portable) Reason For Exam: Tube Placement RESULT: Chest Portable Chest Portable Reason: Tube Placement; Clinical Question(s): Tube Placement COMPARISON: February 05, 2023 at 10:45 PM FINDINGS: LINES AND TUBES: Endotracheal tube tip 4 cm above the ray. Central venous catheter in good position. Enteric tubesidehole appears in the distal esophagus. Recommend advancement 5 cm. LUNGS AND PLEURA: Blunting of the costophrenic angle most likely chronic. Diffuse coarse reticular markings similar to previous exam. No pneumothorax. HEART, MEDIASTINUM AND DREW: Heart is normal in size. Normal mediastinal and hilar contour. BONES AND SOFT TISSUES: No acute abnormality. IMPRESSION: No significant change. An enteric tube remains with its side port above the GE junction. This may need to be advanced.. Central venous catheter tip and endotracheal tube appear in good position. WSN: [id number] Ordering Physician: Joseph Friedman Dictated By: Dillon Heaton MD Dictated Date/Time: 02/06/23 1:21 pm Reviewed By: Dillon Heaton MD Signed By: Dillon Heaton MD Signed Date/Time: 02/06/23 1:21 pm Transcribed By: TRU Transcribed Date/Time: 02/06/23 1:19 pm * Exam Date Time Procedure Performing Provider Status 02/05/23 10:52 PM Chest Portable Dilip Patel; Auth (Verified) Notes: (Chest Portable) Reason For Exam: Chest Pain;Other: RESULT: Chest Portable Chest Portable Hx of Present Illness: Patient reports SOB and generalized weakness over past day. Inhalers are only temporarily helpful.; Reason: Other:; Chest Pain; Clinical Question(s): Other: COMPARISON: 02/05/2023 FINDINGS: LINES AND TUBES: Endotracheal tube tip 4 cm above the ray. Central venous catheter in good position. Enteric tubesidehole appears in the distal esophagus. Recommend advancement 5 cm. LUNGS AND PLEURA: Blunting of the costophrenic angle most likely chronic. Reticular markings similar to previous exam. No pneumothorax. HEART, MEDIASTINUM AND DREW: Heart is normal in size. Normal mediastinal and hilar contour. BONES AND SOFT TISSUES: No acute abnormality. IMPRESSION: Recommend advancement of enteric tube 5 cm. No other interval change. Central venous catheter tip and endotracheal tube appear in good position. WSN: [id number] Ordering Physician: Rudy Serrano Dictated By: Faustino Garcia MD Dictated Date/Time: 02/05/23 11:00 p Reviewed By: Faustino Garcia MD Signed By: Faustino Garcia MD Signed Date/Time: 02/05/23 11:00 pm Transcribed By: TRU Transcribed Date/Time: 02/05/23 10:57 pm * Exam Date Time Procedure Performing Provider Status 02/05/23 9:[address] Head/Brain W/O Contrast Fady Buchanan; Cecelia (Verified) Notes: (CT Head/Brain W/O Contrast) Reason For Exam: AMS, HTN;Other: RESULT: CT Head/Brain W/O Contrast CT Head/Brain W/O Contrast INDICATION: Hx of Present Illness: Patient reports SOB and generalized weakness over past day. Inhalers are only temporarily helpful.; Reason: Other:; AMS, HTN; Clinical Question(s): Other:; ?ICH; Order Comment: TECHNIQUE: Noncontrast head CT using axial technique and reconstructed in axial and coronal planes.Iterative reconstruction techniques are used to optimize dose and image quality. CTDIvol Head: 45.10 mGy, DLP Head: 773 mGy*cm. COMPARISON: None. FINDINGS: Aids Nurse view findings, lines and tubes: None. BRAIN AND EXTRA-AXIAL SPACES: Diffused, periventricular vasogenic edema, adjacent to bilateral frontal and parietal lobe. No parenchymal hemorrhage, midline shift, or mass effect. There are small foci of encephalomalacia in the left parietal lobe. Diana-white matter differentiation is otherwise well preserved. No acute infarct. Negative insular ribbon and hyperdense vessel signs. Mild prominence of the ventricles and sulci consistent with parenchymal volume loss. Moderate to severe low-density white matter changes, most prominent in the parietal lobes. No subarachnoid hemorrhage. No subdural or epidural collection. CALVARIUM, SKULL BASE, AND SOFT TISSUES: No fractures or suspicious bony lesions. Layering fluid in the visualized nasopharynx, is most likely related to endotracheal tube placement. Status-post bilateral lens extraction. The extracranial soft tissues are unremarkable. IMPRESSION: No acute intracranial pathology. Moderate to severe low-density white matter changes are more than expected for age I have personally reviewed the images and I agree with this report. WSN: [id number] Ordering Physician: Rudy Serrano Dictated By: John Guevara MD Dictated Date/Time: 02/05/23 10:21 p Reviewed By: Debbie Capone MD Signed By: Debbie Capone MD Signed Date/Time: 02/05/23 10:26 pm Transcribed By: RTU Transcribed Date/Time: 02/05/23 10:08 pm * Exam Date Time Procedure Performing Provider Status 02/05/23 9:[address] Abd/Pelvis W/ IV Contrast Only Darlin Buchanan; Cecelia (Verified) Notes: (CT Abd/Pelvis W/ IV Contrast Only) Reason For Exam: Sudden decompensation;Other: RESULT: CT Abd/Pelvis W/ IV Contrast Only EXAMINATION: CT Angio Chest, CT Abd/Pelvis W/ IV Contrast Only INDICATION: Hx of Present Illness: Patient reports SOB and generalized weakness over past day. Inhalers are only temporarily helpful.; Abdominal pain Reason: Other:; PE suspected, Intermediate prob, positive D-dimer,; Clinical Question(s): Pulmonary Embolism TECHNIQUE: Spiral CTA of the chest was performed after rapid IV contrast administration without cardiac gating triggered by an YUSUF on the main pulmonary artery. Spiral CT of the abdomen and pelvis was then performed in the portal venous phase. Images are formatted in multiple planes using 2-D multiplanar and 3-D maximum intensity projection. 100 cc of Omnipaque 300 was administered intravenously.Weight-based protocol using automatic tube modulation was used to optimize exposure parameters. CTDIvol Body: 9.72 mGy, DLP Body: 1157 mGy*cm. (accession [id number]), (accession [id number]) COMPARISONS: CTA chest dated 01/21/2023. ANGIOGRAPHIC FINDINGS: No pulmonary embolism to the subsegmental level. Previously seen filling defects in the right upperlobe segmental branches have resolved. Normal caliber pulmonary arteries. No acute aortic abnormality seen on this study performed without cardiac gating. Vasculature of the abdomen and pelvis was imaged in the venous phase. No abdominal aortic aneurysm.No acute vascular findings. NON-ANGIOGRAPHIC FINDINGS: Aids Nurse View Findings, Lines and Tubes: Tracheostomy tube terminates 2.6 cm above the ray. Trachea and Airways: There is inspissated secretion in right mainstem bronchus extending into the bronchus intermedius and right lower lobe airways. Bronchial wall thickening throughout both lungs, most significant in the lower lobes. Lungs and Pleura: There is a 3.6 x 2.4 x 1 cm somewhat bandlike spiculated opacity in the left upper lobe (image 38, series 401 and image 83 of series 402), not significantly changed. Interval improvement in aeration in the right lower lobe with persistent patchy opacities. There are peribronchial groundglass opacities throughout both lungs with lower lobe predominance. Moderate centrilobular and paraseptal emphysema in the background lung parenchyma. There is scarring in both lung apices. No effusion or pneumothorax. There are mild calcified pleural plaque on the right. Mediastinum and drew: No mass or hematoma. No mediastinal or hilar lymphadenopathy. Esophagus is patulous. There is small amount of fluid in the esophageal lumen. Heart: Heart is normal in size. No pericardial effusion. No coronary arterial calcifications. Chest Wall Soft Tissues: Normal. Diaphragm: No significant abnormality. Liver: Normal. Gallbladder: No CT evidence of gallbladder pathology. Bile ducts: No biliary ductal dilation. Spleen: Normal. Pancreas: Normal. Adrenal glands: Normal. Kidneys and ureters: No hydronephrosis, stones, or suspicious masses. Simple appearing renal cysts and hypodensities that are too small to characterize are noted, requiring no dedicated follow up. Bladder: Normal. Reproductive organs: Unremarkable. Stomach, small bowel, and large bowel: Stomach is distended with gas and small amount of layering liquid. Small bowel loops are normal in caliber. There is moderate stool retention in the transverse colon. There is mild wall thickening in the rectosigmoid colon without significant surrounding inflammatory fat stranding. Appendix: Normal. Peritoneum and retroperitoneum: No ascites or pneumoperitoneum. No omental or mesenteric lesions. Lymph nodes: No enlarged lymph nodes. Abdominal and pelvic wall: Partially imaged right hydrocele. Bones: No acute abnormality. 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 IMPRESSION: 1. No evidence of pulmonary embolism. Interval resolution of previously seen right upper lobe segmental PE. 2. Fluid in the esophageal lumen increases further aspiration risk. 3. Inspissated secretion in right mainstem bronchus extending into the bronchus intermedius and lower lobe airways. 4. Diffuse bronchial wall thickening with lower lobe predominance could indicate acute or chronic bronchitis. 5. Improvement in right lower lobe bronchopneumonia. Peribronchial groundglass opacities throughoutboth lungs, suggestive of bronchiolitis, likely due to aspiration. 6. Bandlike spiculated opacity in the left upper lobe measuring up to 3.6 cm could represent scarring but differential diagnosis also includes malignancy. This has not significantly changed since therecent CTA chest. Follow-up with thoracic surgery is recommended for possible biopsy or PET/CT. Alternatively, comparison can be made if patient has remote chest CT available. 7. Mild wall thickening in the rectosigmoid colon could be due to underdistention or mild colitis. 8. Gaseous distention of otherwise normal appearing stomach. WSN: [id number] Ordering Physician: Rudy Serrano Dictated By: Debbie Capone MD Dictated Date/Time: 02/05/23 10:17 p Reviewed By: Debbie Capone MD Signed By: Debbie Capone MD Signed Date/Time: 02/05/23 10:17 pm Transcribed By: TRU Transcribed Date/Time: 02/05/23 9:57 pm * Exam Date Time Procedure Performing Provider Status 02/05/23 9:[address] Angio Chest Darlin Buchanan; Auth (Ori ified) Notes: (CT Angio Chest) Reason For Exam: PE suspected, Intermediate prob, positive D-dimer,;Other: RESULT: CT Angio Chest EXAMINATION: CT Angio Chest, CT Abd/Pelvis W/ IV Contrast Only INDICATION: Hx of Present Illness: Patient reports SOB and generalized weakness over past day. Inhalers are only temporarily helpful.; Abdominal pain Reason: Other:; PE suspected, Intermediate prob, positive D-dimer,; Clinical Question(s): Pulmonary Embolism TECHNIQUE: Spiral CTA of the chest was performed after rapid IV contrast administration without cardiac gating triggered by an YUSUF on the main pulmonary artery. Spiral CT of the abdomen and pelvis was then performed in the portal venous phase. Images are formatted in multiple planes using 2-D multiplanar and 3-D maximum intensity projection. 100 cc of Omnipaque 300 was administered intravenously.Weight-based protocol using automatic tube modulation was used to optimize exposure parameters. CTDIvol Body: 9.72 mGy, DLP Body: 1157 mGy*cm. (accession [id number]), (accession [id number]) COMPARISONS: CTA chest dated 01/21/2023. ANGIOGRAPHIC FINDINGS: No pulmonary embolism to the subsegmental level. Previously seen filling defects in the right upperlobe segmental branches have resolved. Normal caliber pulmonary arteries. No acute aortic abnormality seen on this study performed without cardiac gating. Vasculature of the abdomen and pelvis was imaged in the venous phase. No abdominal aortic aneurysm.No acute vascular findings. NON-ANGIOGRAPHIC FINDINGS: Aids Nurse View Findings, Lines and Tubes: Tracheostomy tube terminates 2.6 cm above the ray. Trachea and Airways: There is inspissated secretion in right mainstem bronchus extending into the bronchus intermedius and right lower lobe airways. Bronchial wall thickening throughout both lungs, most significant in the lower lobes. Lungs and Pleura: There is a 3.6 x 2.4 x 1 cm somewhat bandlike spiculated opacity in the left upper lobe (image 38, series 401 and image 83 of series 402), not significantly changed. Interval improvement in aeration in the right lower lobe with persistent patchy opacities. There are peribronchial groundglass opacities throughout both lungs with lower lobe predominance. Moderate centrilobular and paraseptal emphysema in the background lung parenchyma. There is scarring in both lung apices. No effusion or pneumothorax. There are mild calcified pleural plaque on the right. Mediastinum and drew: No mass or hematoma. No mediastinal or hilar lymphadenopathy. Esophagus is patulous. There is small amount of fluid in the esophageal lumen. Heart: Heart is normal in size. No pericardial effusion. No coronary arterial calcifications. Chest Wall Soft Tissues: Normal. Diaphragm: No significant abnormality. Liver: Normal. Gallbladder: No CT evidence of gallbladder pathology. Bile ducts: No biliary ductal dilation. Spleen: Normal. Pancreas: Normal. Adrenal glands: Normal. Kidneys and ureters: No hydronephrosis, stones, or suspicious masses. Simple appearing renal cysts and hypodensities that are too small to characterize are noted, requiring no dedicated follow up. Bladder: Normal. Reproductive organs: Unremarkable. Stomach, small bowel, and large bowel: Stomach is distended with gas and small amount of layering liquid. Small bowel loops are normal in caliber. There is moderate stool retention in the transverse colon. There is mild wall thickening in the rectosigmoid colon without significant surrounding inflammatory fat stranding. Appendix: Normal. Peritoneum and retroperitoneum: No ascites or pneumoperitoneum. No omental or mesenteric lesions. Lymph nodes: No enlarged lymph nodes. Abdominal and pelvic wall: Partially imaged right hydrocele. Bones: No acute abnormality. 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 IMPRESSION: 1. No evidence of pulmonary embolism. Interval resolution of previously seen right upper lobe segmental PE. 2. Fluid in the esophageal lumen increases further aspiration risk. 3. Inspissated secretion in right mainstem bronchus extending into the bronchus intermedius and lower lobe airways. 4. Diffuse bronchial wall thickening with lower lobe predominance could indicate acute or chronic bronchitis. 5. Improvement in right lower lobe bronchopneumonia. Peribronchial groundglass opacities throughoutboth lungs, suggestive of bronchiolitis, likely due to aspiration. 6. Bandlike spiculated opacity in the left upper lobe measuring up to 3.6 cm could represent scarring but differential diagnosis also includes malignancy. This has not significantly changed since therecent CTA chest. Follow-up with thoracic surgery is recommended for possible biopsy or PET/CT. Alternatively, comparison can be made if patient has remote chest CT available. 7. Mild wall thickening in the rectosigmoid colon could be due to underdistention or mild colitis. 8. Gaseous distention of otherwise normal appearing stomach. WSN: [id number] Ordering Physician: Rudy Serrano Dictated By: Debbie Capone MD Dictated Date/Time: 02/05/23 10:17 p Reviewed By: Debbie Capone MD Signed By: Debbie Capnoe MD Signed Date/Time: 02/05/23 10:17 pm Transcribed By: TRU Transcribed Date/Time: 02/05/23 9:57 pm * Exam Date Time Procedure Performing Provider Status 02/05/23 8:57 PM Chest 2 Views Frontal and Lat [facility] (Verified) Notes: (Chest 2 Views Frontal and Lat) Reason For Exam: Chest Pain;Other: RESULT: Chest 2 Views Frontal and Lat Chest 2 Views Frontal and Lat Hx of Present Illness: Patient reports SOB and generalized weakness over past day. Inhalers are only temporarily helpful.; Reason: Other:; Chest Pain; Clinical Question(s): Other: COMPARISON: 02/05/2023 FINDINGS: LINES AND TUBES: None. LUNGS AND PLEURA: Reticular markings both lungs similar to previous exam same day. Findings consistent with chronic lung disease. No pneumothorax. HEART, MEDIASTINUM AND DREW: Heart is normal in size. Normal mediastinal and hilar contour. BONES AND SOFT TISSUES: No acute abnormality. IMPRESSION: Likely chronic reticular markings both lungs. No acute abnormality appreciated. WSN: [id number] Ordering Physician: Rudy Serrano Dictated By: Faustino Garcia MD Dictated Date/Time: 02/05/23 9:13 pm Reviewed By: Faustino Garcia MD Signed By: Faustino Garcia MD Signed Date/Time: 02/05/23 9:13 pm Transcribed By: TRU Transcribed Date/Time: 02/05/23 9:10 pm * Exam Date Time Procedure Performing Provider Status 02/05/23 4:07 PM Chest 2 Views Frontal and Lat Campbell Arita (Verified) Notes: (Chest 2 Views Frontal and Lat) Reason For Exam: Shortness of Breath RESULT: Chest 2 Views Frontal and Lat Chest 2 Views Frontal and Lat Hx of Present Illness: Patient reports SOB and generalized weakness over past day. Inhalers are only temporarily helpful.; Reason: Shortness of Breath; Clinical Question(s): Pneumonia; Special Instructions: This is a protocol film and radiologist should call any findings to the Charge Nurse COMPARISON: 01/21/2023 FINDINGS: No acute cardiopulmonary process Reticular markings most notable in the right lung are likely secondary to chronic fibrosis and emphysema Juxtapleural wedge-shaped opacification peripheral left upper lung zone is unchanged from prior plain film 08/31/2022 Juxtapleural nodular density in the right mid to lower lung zones corresponds to pleural plaque on recent CT. Other nodular densities in the left mid and lower lung zones likely due to rib fractures and pleural plaques IMPRESSION: No acute abnormality. Findings of chronic fibrosis, emphysema and pleural plaques WSN: [id number] Ordering Physician: Irvin Martini MD Dictated By: Siddharth Styles MD Dictated Date/Time: 02/05/23 4:14 pm Reviewed By: Siddharth Styles MD Signed By: Siddharth Styles MD Signed Date/Time: 02/05/23 4:14 pm Transcribed By: TRU Transcribed Date/Time: 02/05/23 4:07 pm Vital Signs Most recent to oldest [Reference Range]: 1 2 3 Weight 69.0 kg (02/06/23 2:03 AM) Oxygen Saturation [94-100 %] 95 % (02/10/23 8:00 AM) 97 % (02/09/23 8:00 PM) 95 % (02/09/23 11:00 AM) Pulse Rate [55-90 bpm] 61 bpm (02/10/23 8:56 AM) 71 bpm (02/09/23 9:43 PM) 68 bpm (02/09/23 8:00 PM) Blood Pressure [90-138/55-84 mm Hg] 149/85mm Hg *H* (02/10/23 8:56 AM) 137/89mm Hg (02/09/23 9:43 PM) 133/78mm Hg (02/09/23 8:00 PM) Respiratory Rate [16-30 br/min] 16 br/min (02/10/23 9:56 AM) 16 br/min (02/10/23 8:56 AM) 18 br/min (02/09/23 8:00 PM) Temperature [96.8-100.4 DegF] 98.5 DegF (02/10/23 8:00 AM) 97.9 DegF (02/09/23 8:00 PM) 98.0 DegF (02/09/23 11:00 AM) Liters per Minute 1 L/min (02/08/23 4:00 PM) 1 L/min (02/08/23 3:00 PM) 1 L/min (02/08/23 2:00 PM) Mode of Delivery (Oxygen) Room air (02/10/23 8:00 AM) Room air (02/09/23 8:00 PM) Room air (02/09/23 11:00 AM) Blood pressure sites Arm, right (02/10/23 8:00 AM) Arm, left (02/09/23 8:00 PM) Arm, right (02/09/23 11:00 AM) Temperature Route Oral (02/10/23 8:00 AM) Oral (02/09/23 8:00 PM) Oral (02/09/23 11:00 AM) Weight Obtained Via Bed scale (02/06/23 2:03 AM) Social History Social History Type Response Tobacco Use: 4 or less cigar ettes(less than 1/4 pack)/day in last 30 days. Interested in cessation: No. No, 40 Number of years:. Cessation attempts: 4. Tobacco user in household: No. Sex Admission evaluation note * Joseph Friedman MD: MODIFY, MODIFY, MODIFY, MODIFY, MODIFY, MODIFY, MODIFY, PERFORM, MODIFY Event Display: Admission Note Authored Date: Patient: ??YONATHAN BABB ? Age:??62 Years?Sex:??Male?:??1960?? Chief Complaint/Reason for Consultation pt coming from home c/o SOB, pt has hx of COPD. pt took his inhaler with some relief. pt was initially refusing transport but reported feeling weak today. No distress noted, speaking in full sentences, lungs CTA History of Present Illness 62-year-old male with a PMH of HIV on Biktarvy, hepatitis C status post treatment with Jennifer, COPD, history of opioid use currently on methadone follows with Dr. Brooks, non-ischemic cardiomyopathy with a EF of 20 to 25% in 2022, remote history of pneumonia and hypoxic respiratory failure requiring tracheostomy tube, recently admitted for shortness of breath found to have PE, status post diagnostic cardiac cath for ischemic cardiomyopathy work-up which did not show any obstructive disease. ? he presented with shortness of breath, cough and generalized malaise.?? He was afebrile and hemodynamically stable.?? CXR showed no acute abnormality.?? Initial labs showed chronic microcytic anemia,VBG with hypercarbia (CO2 112) and acidosis pH 7, sodium 130, potassium 6, creatinine 1.8, BUN 22, HS-troponin 75, normal TSH and ammonia of 72.?? While in the ED, patient became hypoxic and unresponsive.?? He was given 2 mg of IM Ativan 2 mg of intranasal Narcan.?? POC glucose was 54 so 1 amp of D50 was given soon as the patient had IV access.?? During this event he was also noted to be hypertensive to 180 systolic. The patient continued to be minimally responsive so was intubated for airway pr otection, with rocuronium and propofol.?? DuoNebs were ordered as patient was noted to have significant wheezing throughout his lung [place].?? CT head/brain did not show any acute intracranial pathology, however did show diffuse periventricular vasogenic edema adjacent to bilateral frontal and parietal lobes and small foci of encephalomalacia in the left parietal lobe.?? CTA did not show any evidence of PE and showed interval resolution of previously seen right upper lobe segmental PE.?? Inspissated secretion was noted in the right mainstem bronchus extending into the bronchus intermedius andlower lobe airways.?? Diffuse bronchial wall thickening was also noted which could indicate acute or chronic bronchitis.?? Bandlike spiculated opacity was noted in left upper lobe measuring three-point centimeter which had not significantly changed since recent CT chest. ?? At time of my assessment, the patient was intubated and sedated.?? He was on Levophed, fentanyl,propofol and calcium gluconate.?? Repeat labs were obtained which showed normal electrolytes. Review of Systems unable to obtain due to patient's condition Objective Measurements?? Weight: 69 kg (02/06/23) ?? Vital Signs?? Temperature: 97.2 DegF (02/06/23 04:00:00) Temperature Route: Core Bladder (02/06/23 04:00:00) Pulse Rate:??135 bpm??High (02/05/23 22:24:00) Heart Rate Monitored: 64 bpm (02/06/23 04:00:00) Respiratory Rate:??14 br/min??Low (02/06/23 04:00:00) Vented: Yes (02/06/23 04:00:00) Systolic Blood Pressure: 96 mm Hg (02/06/23 04:00:00) Diastolic Blood Pressure: 68 mm Hg (02/06/23 04:00:00) Blood pressure sites: Arm, left (02/06/23 04:00:00) Mean Arterial Pressure: 85 mm Hg (02/05/23 16:49:00) Pulse Pressure: 28 mm Hg (02/06/23 04:00:00) Oxygen Saturation: 97 % (02/06/23 04:00:00) Liters per Minute: 2 L/min (02/05/23 19:31:00) Mode of Delivery (Oxygen): Ventilator (02/06/23 03:00:00) FiO2: 30 % (02/06/23 03:00:00) End Tidal CO2: 30 mm Hg (02/06/23 04:00:00) ? Intake/Output? 02/06 02:07 02/06 07:00 02/05 07:00 02/04 07:00 02/03 07:00 ?? 02/06 04:40 02/06 04:40 02/06 06:59 02/05 06:59 02/04 06:59 Intake ?199.5 ?0 ?199.5 ?0 ?0 Output ?975 ?0 ?975 ?0 ?0 Net Total ? -775.5 ?0 ? -775.5 ?0 ?0 ? Physical Exam General: intubated, sedated Cardiovascular: RRR; S1 and S2 audible with no murmurs, rubs or gallops Respiratory: Mil B/L wheezing GI: soft, non-tender, non-distended abdomen Neuro: pupils unequal?? (R pupil tear drop shaped) and sluggishly reactive, localizes to pain Skin: No rashes or lesions. No petechiae or purpura.?? Assessment/Plan Wlater is a 62-year-old male with a PMH of HIV on Biktarvy, hepatitis C status post treatment with Jennifer, COPD, history of opioid use currently on methadone follows with Dr. Brooks, non-ischemiccardiomyopathy with a EF of 20 to 25% in 2022, remote history of pneumonia and hypoxic respiratory failure requiring tracheostomy tube. He presented to the hospital for SOB, cough and malaise. He became acutely??altered in the ED,??suspected to be secondary to acute hypercarbic respiratory failure 2/2 COPD exacerbation and was??intubated for airway protection and respiratory failure ? Neuro?? Intubated, Sedated AMS - Likely secondary to hypercarbia Anisocoria history of opioid use, on methadone CTH showed moderate to severe low-density white matter changes, most prominent in the parietal lobes, c/f CVA Plan:?? - MRI brain - Continue fentanyl for analgesia, goal CPOT>2 - Continue propofol for sedation, goal RASS 0?? - hold methadone ?? CVu Shock - pure hypovolemic vs. septic Recent PE Hyperlipidemia Non ischemic cardiomyopathy HFrEF last EF 35 - 30% 01/22, Grade 1 LV diastolic dysfunction s/p??2.5??L LR?? Plan:?? - continue levophed, goal MAP >65?? - trend one more trop - continue eliquis?? - continue atorvastatin - continuous??telemetry ?? Pulm?? COPD exacerbation Acute hypercarbic respiratory failure Intubated for airway protection and respiratory failure Recent PE Plan:?? - wean vent as tolerated?? - continue eliquis 62-year-old male with a PMH of - prednisone 40 mg QD?? - duonbebs prn and??scheduled?? - hold home inhalers and montelukast ?? Incidental CT chest finding Bandlike spiculated opacity in the left upper lobe measuring up to 3.6 cm could represent scarring but differential diagnosis also includes malignancy. This has not significantly changed since the recent CTA chest. Plan: - Follow-up with thoracic surgery is recommended for possible biopsy or PET/CT outpatient ?? ID HIV - last CD4 counts in 11/2022 wnl Concern for LRTI (pneumonia +/- bronchitis) Plan: - ceftriaxone and azithromycin - follow BLCS - obtain sputum culture, UA, MRSA swab - respiratory viral panel - continue biktrarvy ?? GI?? Elevated ammonia no evidence of cirrhosis on imaging Plan: - repeat ammonia ?? Renal Acute kidney injury Plan: - monitor renal function ?? Endo No acute issues. on dapagliflozin for HF Plan: - use Lispo SSI 2 - 10 U q6 hours - hold dapagliflozin ?? Heme Chronic microcytic anemia Plan: - monitor CBC ?? Quality Measures DVT prophylaxis: Eliquis Diet: NPO Code Status: Full HCP/Next of kin:??Patient's son updated at ??on admission. ? Patient care discussed with??attending, Dr. Beckwith. ?? Joseph Friedman MD Internal Medicine PGY-2 Pager # [phone] ? Histories Allergies Allergies ?(Active and Proposed Allergies Only) NKA? (Severity: Unknown severity, Onset: Unknown) ? Past Medical History/Problem List No problems documented. ? Past Surgical History Colonoscopy, flexible, proximal to splenic flexure; diagnostic, with or without collection of specimen(s) by brushing or washing, with or without colon decompression (separate procedure): 07/18/14 ? Social History Substance Abuse Details:??Use: Current. ??Type: Heroin. ??Substance abuse in household: No. ??Other: in methadone clinic. recetly had a relapse x1 due to personal stresson r/t in the family.. ??IV drug use: Yes. ??Previous treatment: Outpatient. Tobacco Details:??Use: 4 or less cigarettes(less than 1/4 pack)/day in last 30 days. ??Interested in cessation: No. ??No, 40 Number of years:. ??Cessation attempts: 4. ??Tobacco user in household: No. ? Family History No family history recorded. ? Medications Home Medications Albuterol (Albuterol (Eqv-ProAir HFA))?Inhalation?Every 6 hours apixaban (apixaban Starter Pack 5 mg oral tablet)?2?tab(s)?10?Milligram?By Mouth?2 times a day?for 7?Days?followed by 1 tablet by mouth twice daily for 23 days Atorvastatin (Lipitor 40 mg oral tablet)?1?tab(s)?40?Milligram?By Mouth?Daily at bedtime bictegravir/emtricitabine/tenofovir (Biktarvy oral tablet)?1?tab(s)?By Mouth?Daily?for 30?Days?[employer] brett tableta todos los mei. Carvedilol (carvedilol 6.25 mg oral tablet)?See Instructions?1 tablet By Mouth 2 times a day dapagliflozin (Farxiga 10 mg oral tablet)?See Instructions?take 1 tablet By Mouth Daily. Methadone (methadone 10 mg/5 mL oral solution)?50?Milligram?By Mouth?Daily?oral solution; goes to [facility] Montelukast (montelukast 4 mg oral granule)?1?Each?4?Milligram?By Mouth?Daily sacubitril-valsartan (Entresto 49 mg-51 mg oral tablet)?See Instructions?1 tablet By Mouth 2 times a day. note dose increase Spironolactone (spironolactone 25 mg oral tablet)?12.5?Milligram?0.5?tablet?By Mouth?Daily?take 1/2 tablet(12.5mg) by mouth once daily Tiotropium (Spiriva)?18?Microgram?Inhalation?Daily ? * Tang ROSS, Salbador Bailey: PERFORM Event Display: Admission Note Authored Date: [id number] [facility] Attending Attestation ?? I have seen and evaluated??YONATHAN BABB.??I have personally reviewed the interim lab, radiography, and study results. I have discussed the case with ?Ashli and agree with the findings, assessment, and plan as documented below with the following highlights, clarifications, and addenda. ?? 62-year-old male with past medical history of HIV on Biktarvy, hep C status posttreatment with Harvoni, COPD, nonischemic cardiomyopathy with an EF of 20%, and recent admission for PE admitted with bronchitis, COPD exacerbation, and hypercapnic respiratory failure. ?? #Hypercapnic respiratory failure due to COPD exacerbation likely triggered by viral pneumonia #Aspiration pneumonia subsequent to encephalopathy #Metabolic encephalopathy #Septic shock #History of nonischemic cardiomyopathy #History of recent pulmonary embolus on Eliquis dental lung nodule potential for malignancy #History of HIV #AMBER #Chronic microcytic anemia #Hyperglycemia of critical illness #Elevated troponin???demand ischemia ? IV Methylpred 40 mg and can transition to p.o. when appropriate scheduled DuoNebs ??? Ceftriaxone and azithromycin ??? Blood cultures, sputum culture, MRSA swab, respiratory viral panel ??? Continue norepinephrine, wean as tolerated for goal MAP greater than 65 ??? Patient will need outpatient PET scan for his left upper lobe nodule Remainder as below ?? YONATHAN BABB??is critically ill due to the problems and diagnoses listed above, with a high probability of life-threatening deterioration or . I personally spent??55 minutes of non-overlapping critical care time evaluating and managing the patient, excluding time spent teaching??or performing separately billable procedures. ? Salbador Hernandez N?MD tammie, MS Attending, Pulmonary and Critical Care Medicine [facility] pager [phone] EKG study * Event Display: ECG 12-Lead Authored Date: Please click on pdf link to open report * Event Display: ECG 12-Lead Authored Date: Ventricular Rate: 86 BPM Atrial Rate: 86 BPM P-R Interval: 226 ms QRS Duration: 76 ms Q-T Interval: 392 ms QTC Calculation(Bazett): 469 ms P Gillespie: 90 degrees R Gillespie: 28 degrees T Gillespie: 237 degrees Sinus rhythm with 1st degree A-V block Anteroseptal infarct , age undetermined Abnormal ECG When compared with ECG of 05-FEB-2023 15:24, MANUAL COMPARISON REQUIRED, DATA IS UNCONFIRMED Confirmed by NITISH SCHAFER MD ([id number]) on 02/06/2023 8:23:09 AM [place]: NITISH SCHAFER MD * Event Display: ECG 12-Lead Authored Date: Please click on pdf link to open report * Event Display: ECG 12-Lead Authored Date: Ventricular Rate: 64 BPM Atrial Rate: 64 BPM P-R Interval: 230 ms QRS Duration: 70 ms Q-T Interval: 416 ms QTC Calculation(Bazett): 429 ms P Gillespie: 84 degrees R Gillespie: 20 degrees T Gillespie: -65 degrees Sinus rhythm with 1st degree A-V block Anteroseptal infarct (cited on or before 31-AUG-2022) T wave abnormality, consider lateral ischemia When compared with ECG of 22-JAN-2023 13:45, Nonspecific T wave abnormality has replaced inverted T waves in Inferior leads T wave inversion no longer evident in Anterior leads QT has shortened Confirmed by [facility] ([id number][facility] on 02/07/2023 3:53:02 PM [place]: [facility] * Rajani Anderson: PERFORM, SIGN, VERIFY Event Display: [facility] Authored Date: [id number] Patient: YONATHAN BABB Age: 62 years Sex: Male : 1960 Associated Diagnoses: None Author: Rajani Anderson Findings Problem Related to Alteration in Respiratory Function (new) : Alteration in Respiratory Function/new 02/10/2023 14:00 EDT Alteration in Resp Status Related to Pneumonia, Other: Rhinovirus Goals & Outcomes, Respiratory Pt will maintain/resume baseline physical assessment, Pt will notdevelop complications r/t mechanical ventilation, Pt will maintain adequate nutritional intake, Pt will maintain/resume normal fluid/electrolyte balance, Pt will not develop complications r/t immobility, Pt will demonstrate proper technique w/self care procedures Interventions, Respiratory Assess/monitor tolerance to IV infusions; verify rate/dose, Assess for and report S&S of respiratory distress, Position for comfort & optimal oxygenation, Monitor sputum color & consistency. Report changes to MD, Teach/encourage use of incentive spirometer, Teach the proper use of inhalers, Teach purse lip breathing as needed for breathing retraining Goals/Interventions, Respiratory Yes Respiratory, Problem Start 02/06/2023 5:11 Reviewed Plan with, Respiratory Patient Patient Progression, Respiratory Resolved problem Respiratory, Problem Resolved 02/10/2023 14:44 . Narrative/Incidental Patient alert and oriented x 4. Patient independently ambulating with steady gait, and performing self care including toileting. Patient not presenting with signs of distress. Patient denies difficulty breathing, pain, dizziness, nausea. Patient endorses diarrhea this morning; RN notified covering provider. Patient denies presence of blood or mucus in stool and states diarrhea not accompanied by abdominal pain or GI distress. Patient set to be discharged home this afternoon.. Discharge Information Pulmonary Rehab Discharge : Pulmonary Rehab Discharge Status 02/06/2023 8:00 EDT PEEP 8 02/06/2023 7:00 EDT PEEP 8 02/06/2023 6:00 EDT PEEP 8 02/06/2023 5:00 EDT PEEP 8 02/06/2023 4:00 EDT PEEP 8 02/06/2023 3:00 EDT PEEP 8 02/06/2023 2:24 EDT PEEP 8 02/06/2023 2:00 EDT PEEP 8 02/06/2023 1:58 EDT PEEP 8 02/05/2023 23:50 EDT PEEP 8 02/05/2023 22:39 EDT PEEP 8 * Heike Smalls RN: PERFORM, SIGN, VERIFY Event Display: Progress Note Hospital Authored Date: Patient: YONATHAN BABB Age: 62 years Sex: Male : 1960 Associated Diagnoses: None Author: Heike Smalls RN Findings Problem Related to Alteration in Respiratory Function (new) : Alteration in Respiratory Function/new 02/09/2023 11:00 EDT Alteration in Resp Status Related to Pneumonia, Other: Rhinovirus Goals & Outcomes, Respiratory Pt will maintain/resume baseline physical assessment, Pt will notdevelop complications r/t mechanical ventilation, Pt will maintain adequate nutritional intake, Pt will maintain/resume normal fluid/electrolyte balance, Pt will not develop complications r/t immobility, Pt will demonstrate proper technique w/self care procedures Interventions, Respiratory Assess for and report S&S of respiratory distress, Position for comfort & optimal oxygenation BH Goals/Interventions, Respiratory Yes Respiratory, Problem Start 02/06/2023 5:11 Reviewed Plan with, Respiratory Patient Patient Progression, Respiratory Patient progressing according to plan . Narrative/Incidental Pt a/o x4. Vital signs within normal limits. Pt originally admitted for hypercarbia respiratory failure and COPD exacerbation. Lungs dim to auscultation on RA. Dyspnea reported on exertion. No edema noted. S1 and S2 heart sounds heard. Pt continent of bowels and urine. Last bm 02/07. Skin intact. IV access in R upper arm which flushes well and is c/d/i. Pt independently ambulatory w/ steady gait.No acute changes occurred and pt able to make own needs known. Bed in lowest, locked position. Safety and comfort maintained. Pt currently asleep in bed with call jarrett within reach at all times. See other forms and assessments as needed. . . Discharge Information Pulmonary Rehab Discharge : Pulmonary Rehab Discharge Status 02/06/2023 8:00 EDT PEEP 8 02/06/2023 7:00 EDT PEEP 8 02/06/2023 6:00 EDT PEEP 8 02/06/2023 5:00 EDT PEEP 8 02/06/2023 4:00 EDT PEEP 8 02/06/2023 3:00 EDT PEEP 8 02/06/2023 2:24 EDT PEEP 8 02/06/2023 2:00 EDT PEEP 8 02/06/2023 1:58 EDT PEEP 8 02/05/2023 23:50 EDT PEEP 8 02/05/2023 22:39 EDT PEEP 8 * Humberto Beck MD: PERFORM Event Display: Progress Note Hospital Authored Date: [id number] Patient: ??YONATHAN BABB ? Age:??62 Years?Sex:??Male?:??1960?? _ Inpatient Medications Medications (19) Active SCHEDULED: (11) Apixaban 5 mg Tablet (apixaban 5 mg oral tablet) ??5 mg, By Mouth, 2 times a day Atorvastatin 40 mg Tablet (Lipitor 40 mg [...] mg, By Mouth, 2 times a day Cefepime 2 Gm Inj (Cefepime Extended IVPB) ??2,000 mg, IVPB, Every 12 hours Melatonin 3 mg Tablet (Melatonin Tablet) ??3 mg, By Mouth, Daily at bedtime Methadone 10 mg Tablet (Methadone Tablet) ??50 mg, By Mouth, Daily Polyethylene Glycol 17 Gm Powder (MiraLax Powder) ??17 Gm 1 pack/packet, By Mouth, Daily PredniSONE 20 mg Tablet (predniSONE 20 mg oral tablet) ??40 mg, By Mouth, Daily Spiriva Respimat 2.5 mcg Inhaler (Spiriva Respimat Inhaler) ??2 puffs, Inhalation, Daily CONTINUOUS: (0) PRN: (8) Acetaminophen 325 mg Tablet (Tylenol 325 mg oral tablet) ??650 mg, By Mouth, Every 4 hours Albuterol 0.5% Inhalation Solution 0.5mL (Albuterol 0.5% inhalation edwin) ??2.5 mg 0.5 mL, BAND Nebulizer, Every 6 hours Albuterol 90mcg/Inhalation Inhaler HFA (albuterol CFC free 90 mcg/inh inhalation aerosol) ??90 mcg 1 puffs, Inhalation, Every 4 hours Bisacodyl 10 mg Suppository (Bisacodyl Supp) ??10 mg 1 supp, Rectally, 2 times a day Dextromethorphan-Guaifenesin 20 mg-200 mg/10 mL Liqu UD (GuaiFENEsin /Dextromethorphan Liquid) ??10mL, By Mouth, 4 times a day Docusate Sodium 100 mg Capsule (Colace Capsule) ??100 mg 1 capsule, By Mouth, 2 times a day Magnesium Hydroxide 8% Susp UD (Milk of Magnesia Liquid) ??30 mL, By Mouth, 2 times a day nalOXONE ??400mcg/mL Inj (nalOXONE Inj) ??0.2 mg 0.5 mL, IV Push, Every 5 minutes ? Results Test Name Test Result Date/Time WBC 8.8 k/mm3 02/09/2023 07:15 EDT Hgb 9.5 Gm/dL 02/09/2023 07:15 EDT Hct 29.6 % 02/09/2023 07:15 EDT Platelet Count 102 k/mm3 02/09/2023 07:15 EDT Sodium 138 mmol/L 02/09/2023 07:15 EDT Potassium 4.8 mmol/L 02/09/2023 07:15 EDT Chloride 101 mmol/L 02/09/2023 07:15 EDT Bicarbonate Level 23 mmol/L 02/09/2023 07:15 EDT Anion Gap 14 02/09/2023 07:15 EDT Glucose Level 122 mg/dL 02/09/2023 07:15 EDT BUN 33 mg/dL 02/09/2023 07:15 EDT Creatinine-Blood 1.6 mg/dL 02/09/2023 07:15 EDT Estimated GFR Creatinine 50 ML/MIN/1.73 M2 02/09/2023 07:15 EDT Calcium 9.1 mg/dL 02/09/2023 07:15 EDT Assessment/Plan ?? Assessment:? Mr. Babb is our very pleasant and unfortunate??62 y.o. [place] gentleman, fluent bilingually, with a h.o.??hypertension, hyperlipidemia, non-ischemic cardiomyopathy / mixed systolic & grade I diastolic CHF / LVEF = 25-30% (TTE 01/2023),??recent PE (01/2023) on apixaban, HIV on HAART with coformulated bictegravir / tenofovir / emtricitabine (Biktarvy) / CD4+ count = 556 (11/2022), prior??hepatitis C s/p??therapy with ledipasvir-sofosbuvir??= Harvoni, COPD / asthma,??opiate dependence on a methadone program, admitted on 02/05/2023??with acute hypoxic & hypercarbic respiratory failure /??COPD exacerbation / (+) PCR for enterovirus-rhinovirus /??metabolic encephalopathy, requiring??intubation for airway protection and respiratory failure. ET tube culture (+) for Pseudomonas aeruginosa, being treated with IV cefepime for possible Pseudomonas bronchitis / superimposed pneumonia Extubated on 02/06/2023 Transferred out of MICU to -A in the early hours of this morning. ?? Please see MICU Transfer / Accept note from earlier today by Dr. Veras for full details I am taking over his care this morning. History, exam, labs, findings, plan, all personally reviewed. ?? * Feels better, but not quite there yet... this morning he had a paroxysmal episode of bronchospasmrequiring updrafts Currently off oxygen, on room air * Afebrile * WBC count = 8.8 K * sCreat = 1.6 ? -- ? Note * Rajani Anderson: PERFORM Event Display: Discharge/Transfer Note Hospital Authored Date: [id number] Nursing Discharge Note Entered On: 02/10/2023 17:34 EDT Performed On: 02/10/2023 17:33 EDT by Rajani Anderson Nursing Discharge Note 2 Discharge Time : 02/10/2023 16:40 EDT Discharge Level of Care at Discharge : Home/Skilled Nursing/Foster Care Patient Left Unit Via : Wheelchair Patient Accompanied Off Unit with : Responsible adult DC Instructions Provided & Signed by Pt : Yes Patient Understands D/C Instructions : Yes Patient Instructions Discharge Signed : Yes Did Pt have Specialty Bed or Wound Vac : No Rajani Anderson - 02/10/2023 17:33 EDT * Irvin Lebron II: PERFORM Event Display: Discharge/Transfer Note Hospital Authored Date: [id number] Patient: ??YONATHAN BABB ? Age:??62 Years?Sex:??Male?:??1960?? Patient Information Discharge Location: A Primary Care Physician: Leola ROSS, Loreta Admit Date/Time: 02/06/23 02:07 Discharge Disposition Discharge Disposition: Home: No Services Discharge Diagnosis Acute respiratory failure with hypoxia and hypercapnia (J96.01) COPD exacerbation (J44.1) Endotracheally intubated (Z97.8) Pseudomonas aeruginosa infection (A49.8) Rhinovirus infection (B34.8) ?? _ Discharge Medications Albuterol (Albuterol (Eqv-ProAir HFA))?Inhalation?Every 6 hours apixaban (apixaban Starter Pack 5 mg oral tablet)?2?tab(s)?10?Milligram?By Mouth?2 times a day?for 7?Days?followed by 1 tablet by mouth twice daily for 23 days Aspirin (Aspirin Low Dose 81 mg oral delayed release tablet)?1?tab(s)?81?Milligram?By Mouth?Daily Atorvastatin (Lipitor 40 mg oral tablet)?1?tab(s)?40?Milligram?By Mouth?Daily at bedtime bictegravir/emtricitabine/tenofovir (Biktarvy oral tablet)?1?tab(s)?By Mouth?Daily?for 30?Days?[facility] [place]. Budesonide-Formoterol (Symbicort 160mcg/4.5mcg Inhaler)?2?puff(s)?Inhalation?2 times a day Carvedilol (carvedilol 6.25 mg oral tablet)?See Instructions?1 tablet By Mouth 2 times a day dapagliflozin (Farxiga 10 mg oral tablet)?See Instructions?take 1 tablet By Mouth Daily. Fluticasone Nasal (fluticasone 50 mcg/inh nasal spray)?1?spray(s)?Nares, Both?Daily in AM Furosemide (furosemide 40 mg oral tablet)?40?Milligram?1?tablet?By Mouth?Daily Levofloxacin (levoFLOXacin 750 mg oral tablet)?750?Milligram?By Mouth?Every 24 hours?for 5?Days?First dose tomorrow Methadone (methadone 10 mg/5 mL oral solution)?50?Milligram?By Mouth?Daily?oral solution; goes to [facility] Montelukast (montelukast 4 mg oral granule)?1?Each?4?Milligram?By Mouth?Daily PredniSONE (predniSONE 20 mg oral tablet)?40?Milligram?By Mouth?Daily?for 3?Days sacubitril-valsartan (Entresto 49 mg-51 mg oral tablet)?See Instructions?1 tablet By Mouth 2 times a day. note dose increase Spironolactone (spironolactone 25 mg oral tablet)?12.5?Milligram?0.5?tablet?By Mouth?Daily?take 1/2 tablet(12.5mg) by mouth once daily Tiotropium (Spiriva Respimat 60 ACT 2.5 mcg/inh inhalation aerosol)?2?puff(s)?5?Microgram?Inhalation?Daily ? Quality Measures Tobacco Use Treatment:? Medications Started Levofloxacin (levoFLOXacin 750 mg oral tablet)?750?Milligram?By Mouth?Every 24 hours?for 5?Days?First dose tomorrow PredniSONE (predniSONE 20 mg oral tablet)?40?Milligram?By Mouth?Daily?for 3?Days Allergies Allergies ?(Active and Proposed Allergies Only) NKA? (Severity: Unknown severity, Onset: Unknown) ? PCP Follow-Up/Heads-Up Provided steroids for COPD exacerbation and levaquin for pseudomonas aeruginosa + culture from ET tube. May benefit from home nebulizers if home nebulizers ineffective. Hospital Course 62-year-old male with history of hypertension, dyslipidemia, CKD stage 2-3, non- ischemic cardiomyopathy, HFrEF 25-30%, recent PE on 01/29 treated with apixaban, HIV on HAART, hepatitis c s/p treatement, asthma, opiate use disorder on methadone who was admitted on 02/05 with acute hypoxic and hypercarbic respiratory failure secondary to acute COPD exacerbation, enterovirus and rhinovirus URI requiring intubation and metabolic encephalopathy. Sputum cultures positive for pseudomonas aeruginosa and he was empirically treated with ceftriaxone which was changed to cefepime. ?? He was successfully extubated and transferred to the floor. He is still more SOB than baseline but maintaining normal o2 saturations at rest and with activity. He still has wheezes and has been treated with prednisone. Continue home methadone dose of 50 mg daily. ?? Plan for d/c home with 5 more days of Levaquin, 3 more days of prednisone and he is to continue hishome inhalers. He is instructed that if symptoms worsen he should contact his PCP or return to the ED. ? Objective Vital Signs?? Temperature: 98.5 DegF (02/10/23 08:00:00) Temperature Route: Oral (02/10/23 08:00:00) Pulse Rate: 61 bpm (02/10/23 08:56:00) Respiratory Rate: 16 br/min (02/10/23 08:56:00) Systolic Blood Pressure:??149 mm Hg??High (02/10/23 08:56:00) Diastolic Blood Pressure:??85 mm Hg??High (02/10/23 08:56:00) Blood pressure sites: Arm, right (02/10/23 08:00:00) Mean Arterial Pressure Monitored: 100 mm Hg (02/10/23 08:00:00) Oxygen Saturation: 95 % (02/10/23 08:00:00) Mode of Delivery (Oxygen): Room air (02/10/23 08:00:00) Early Warning Score: 5 (02/10/23 09:03:08) ? . Physical Exam Constitutional: Alert, in no distress. Mental Status: Oriented to person, place and time. Respiratory: Diminished with mild expiratory wheezes. Cardiovascular: Regular rate and rhythm, no murmurs, rubs or gallops. Abdomen: Soft, non-tender, non-distended.??Normal bowel sounds. Skin: No rashes or lesions. Psychiatric: Normal mood and affect. Extremities: No edema. Follow-Up Appointments Added Follow Up ?Time Frame ?Comments Leola ROSS, [facility] Results Discharge Labs BACTERIOLOGY MRSA PCR Result Negative, MRSA target DNA not detected. ()?? 02/06/2023 06:56 S Aureus ??PCR Result Negative, SA target DNA not detected. ()?? 02/06/2023 06:56 ?? BLOOD COUNT & DIFF WBC 6.0 k/mm3 ()?? 02/10/2023 05:52 RBC 3.83 m/mm3 (Low)?? 02/10/2023 05:52 Hgb 8.8 Gm/dL (Low)?? 02/10/2023 05:52 Hct 27.8 % (Low)?? 02/10/2023 05:52 MCV 72.6 femtoliters (Low)?? 02/10/2023 05:52 MCH 23.0 pg (Low)?? 02/10/2023 05:52 MCHC 31.7 g/dL (Low)?? 02/10/2023 05:52 Platelet Count 106 k/mm3 (Low)?? 02/10/2023 05:52 RDW-SD 38.2 femtoliters ()?? 02/10/2023 05:52 MPV 11.1 femtoliters ()?? 02/10/2023 05:52 Nucleated RBC (Automated) 0.0 #/100 WBC'S ()?? 02/10/2023 05:52 Abs. NRBC 0.0 k/mm3 ()?? 02/10/2023 05:52 Abs. Neut 7.7 k/mm3 (High)?? 02/06/2023 02:11 Abs. Lymph 0.6 k/mm3 (Low)?? 02/06/2023 02:11 Abs. Berrien 0.9 k/mm3 ()?? 02/06/2023 02:11 Abs. Eo 0.0 k/mm3 ()?? 02/06/2023 02:11 Abs. Baso 0.0 k/mm3 ()?? 02/06/2023 02:11 Neut % 83.7 % (High)?? 02/06/2023 02:11 Lymph % 6.2 % (Low)?? 02/06/2023 02:11 Berrien % 9.2 % ()?? 02/06/2023 02:11 Eos % 0.3 % ()?? 02/06/2023 02:11 Baso % 0.2 % ()?? 02/06/2023 02:11 Hemoglobin (POC) POC Cartridge 14.3 Gm/dL ()?? 02/05/2023 22:22 Hematocrit (POC) POC Cartridge 42 % ()?? 02/05/2023 22:22 Imm Gran 0.4 % ()?? 02/06/2023 02:11 Abs. Imm Gran 0.0 k/mm3 ()?? 02/06/2023 02:11 ?? BLOOD GAS pH Venous (POC) POC Cartridge 7.31 (Low)?? 02/05/2023 22:22 pCO2 Venous (POC) POC Cartridge 43.8 mm Hg ()?? 02/05/2023 22:22 pO2 Venous (POC) POC Cartridge 64 mm Hg (High)?? 02/05/2023 22:22 Est Bicarbonate (POC) POC Cartridge 22.3 mmol/L ()?? 02/05/2023 22:22 % O2 Sat Venous (POC) POC Cartridge 90 ()?? 02/05/2023 22:22 Base Excess (POC) POC Cartridge NEGATIVE 4 ()?? 02/05/2023 22:22 Specimen Type - Blood Gas VENOUS ()?? 02/05/2023 22:22 ? CARDIAC Nt-Probnp 999 pg/mL (High)?? 02/05/2023 22:21 High Sensitivity Troponin (HSTnT) 126 ng/L (Critical)?? 02/06/2023 02:11 ?? CHEM GENERAL Sodium 139 mmol/L ()?? 02/10/2023 05:52 Potassium 4.3 mmol/L ()?? 02/10/2023 05:52 Chloride 103 mmol/L ()?? 02/10/2023 05:52 Bicarbonate Level 24 mmol/L ()?? 02/10/2023 05:52 Anion Gap 12 ()?? 02/10/2023 05:52 Sodium (POC) POC Cartridge 131 mmol/L (Low)?? 02/05/2023 22:22 Potassium (POC) POC Cartridge 5.5 mmol/L (High)?? 02/05/2023 22:22 Glucose Level 122 mg/dL (High)?? 02/09/2023 07:15 Glucose (POC) POC Cartridge 268 (High)?? 02/05/2023 22:22 Glucose, POC 187 mg/dL (High)?? 02/09/2023 16:45 Hemoglobin A1C (Monitoring) 6.4 % (High)?? 02/06/2023 02:11 BUN 31 mg/dL (High)?? 02/10/2023 05:52 Creatinine-Blood 1.5 mg/dL (High)?? 02/10/2023 05:52 Estimated GFR Creatinine 52 ML/MIN/1.73 M2 ()?? 02/10/2023 05:52 Calcium 9.1 mg/dL ()?? 02/09/2023 07:15 Calcium, Ionized pH Corrected 1.22 mmol/L ()?? 02/06/2023 02:11 Ionized Calcium (POC) POC Cartridge 1.05 mmol/L (Low)?? 02/05/2023 22:22 Phosphorus 2.9 mg/dL ()?? 02/10/2023 05:52 Magnesium 2.1 mg/dL ()?? 02/10/2023 05:52 Protein, Total 5.3 Gm/dL (Low)?? 02/07/2023 03:41 Albumin 3.2 Gm/dL (Low)?? 02/07/2023 03:41 AG Ratio 1.5 ()?? 02/07/2023 03:41 Alkaline Phosphatase 95 units/L ()?? 02/07/2023 03:41 AST (SGOT) 27 units/L ()?? 02/07/2023 03:41 ALT (SGPT) 22 units/L ()?? 02/07/2023 03:41 Bilirubin, Total 0.3 mg/dL ()?? 02/07/2023 03:41 Lactate 1.1 mmol/L ()?? 02/06/2023 00:20 ? COAG INR 1.0 ()?? 02/06/2023 10:35 Protime (PT) 11.1 seconds ()?? 02/06/2023 10:35 ?? ENDOCRINE/TUMOR MARKER TSH 1.40 uIU/mL ()?? 02/05/2023 22:21 ? HEME OTHER Hold Blue Top SPECIMEN DISCARDED AFTER 4 HOURS. ()?? 02/05/2023 22:21 ? MISC. CHEMISTRY Ammonia, Venous 15 ??mole/L (Low)?? 02/06/2023 04:46 Procalcitonin 1.47 ng/mL ()?? 02/07/2023 03:41 ?? UA/URINALYSIS Appear/Color, Urine COLORLESS ()?? 02/06/2023 04:00 Clarity CLEAR ()?? 02/06/2023 04:00 Specific Swain, Urine 1.028 ()?? 02/06/2023 04:00 pH, Urine 6.0 ()?? 02/06/2023 04:00 Albumin, Urine NEGATIVE ()?? 02/06/2023 04:00 Glucose, Urine 4+ (Abnormal)?? 02/06/2023 04:00 Ketones, Urine NEGATIVE ()?? 02/06/2023 04:00 Bilirubin, Urine NEGATIVE ()?? 02/06/2023 04:00 Hemoglobin, Urine NEGATIVE ()?? 02/06/2023 04:00 Nitrite, Urine NEGATIVE ()?? 02/06/2023 04:00 Leukocyte, Urine NEGATIVE ()?? 02/06/2023 04:00 Urobilinogen NORMAL mg/dL ()?? 02/06/2023 04:00 WBC's, Urine 2 /HPF ()?? 02/06/2023 04:00 RBC's, Urine 1 /HPF ()?? 02/06/2023 04:00 Culture Indication CULTURE NOT INDICATED ()?? 02/06/2023 04:00 ? URINE OTHER Malb/Creat Ratio Unable to calculate mg/Gm ()?? 02/06/2023 04:00 Urine Creat For Micro Alb 45.2 mg/dL ()?? 02/06/2023 04:00 Micro-Albumin <12.0 mg/L ()?? 02/06/2023 04:00 ? VIROLOGY Adenovirus by PCR NEGATIVE ()?? 02/06/2023 10:30 Coronavirus 229E by PCR (not COVID-19) NEGATIVE ()?? 02/06/2023 10:30 Coronavirus HKU1 by PCR (not COVID-19) NEGATIVE ()?? 02/06/2023 10:30 Coronavirus NL63 by PCR (not COVID-19) NEGATIVE ()?? 02/06/2023 10:30 Coronavirus OC43 by PCR (not COVID-19) NEGATIVE ()?? 02/06/2023 10:30 Human Metapneumovirus by PCR NEGATIVE ()?? 02/06/2023 10:30 Rhinovirus/Enterovirus by PCR POSITIVE (Abnormal)?? 02/06/2023 10:30 Influenza A by PCR NEGATIVE ()?? 02/06/2023 10:30 Influenza B by PCR NEGATIVE ()?? 02/06/2023 10:30 Parainfluenza 1 by PCR NEGATIVE ()?? 02/06/2023 10:30 Parainfluenza 2 by PCR NEGATIVE ()?? 02/06/2023 10:30 Parainfluenza 3 by PCR NEGATIVE ()?? 02/06/2023 10:30 Parainfluenza 4 by PCR NEGATIVE ()?? 02/06/2023 10:30 RSV by PCR NEGATIVE ()?? 02/06/2023 10:30 Bordetella Pertussis by PCR NEGATIVE ()?? 02/06/2023 10:30 Chlamydophila Pneumoniae by PCR NEGATIVE ()?? 02/06/2023 10:30 Mycoplasma Pneumoniae by PCR NEGATIVE ()?? 02/06/2023 10:30 COVID-19 POC Result NEGATIVE ()?? 02/05/2023 14:03 COVID-19 (SARS-CoV-2) by PCR NEGATIVE ()?? 02/06/2023 10:30 Bordetella Parapertussis by PCR NEGATIVE ()?? 02/06/2023 10:30 ? I spent a total of??45 minutes today reviewing the chart/medical records, speaking with the patient, formulating and discussing the treatment plan and documenting the findings and encounter. Discussed plan with patient, nursing. ?? Irvin Montemayor II PA-C Hospitalist Medicine PA Pager #[phone] or Kristen * Maddie MARTÍNEZ, Darlin: PERFORM Event Display: Patient Education/Instruction Authored Date: [id number] Inpatient Adult Discharge Instructions [address] [address] Name: YONATHAN BABB : 1960 Visit: 02/06/2023 02:07:00 Current Date: 02/10/2023 13:02 Account: [id number] Inpatient Adult Discharge Instructions We would like [...] and their families. Surveys are administered by [employer] ?? If further treatment with your primary care physician or another doctor is recommended, it is important for you to keep the appointment. Call your primary care physician or return to the Emergency Department immediately if your condition worsens, fails to improve, or new symptoms develop. If you need to find a doctor, you can call [facility] [employer] for a referral at [phone] or toll free at [phone] or log in to [email or web address] ?? You can view and manage your care through the patient portal or by using a health care chiki of your choosing. [employer] is a website that allows you to securely view your medical information including your hospital discharge summary, office visit summaries, medications and follow-up visits. You can also request appointments, renew medications, and request access to your medical information using a health care chiki of your choosing, or just ask a question. You can enroll at [email or web address] or register during your next office visit. You have been discharged from [facility], Patient Care Unit: D6A. If you have any questions regarding these instructions after you leave, please call us and we will be happy to assist you. [facility] Your Care Team Attending Physician Khoa ROSS, Estefani Discharging Providers Sim HILTON, Irvin Wray Reason for Admission pt coming from home c/o SOB, pt has hx of COPD. pt took his inhaler with some relief. pt was initially refusing transport but reported feeling weak today. No distress noted, speaking in full sentences, lungs CTA Your Diagnosis Endotracheally intubated Pseudomonas aeruginosa infection COPD exacerbation Acute respiratory failure with hypoxia and hypercapnia Rhinovirus infection Enterovirus infection Tests Performed Below is a partial list of the tests performed during your hospitalization. You may have had other tests and procedures not included in this list. Please discuss all test results with your provider. Ammonia Venous B Type Natriuretic Peptide BASE EXCESS POC CARTRIDGE Basic Metabolic Panel BUN CALCIUM IONIZED POC CART CBC CBC w/ Differential Comprehensive Metabolic Panel COVID-19 RNA POC Creatinine GLUCOSE POC GLUCOSE POC CARTRIDGE HEMATOCRIT POC CARTRIDGE HEMOGLOBIN A1C HEMOGLOBIN POC CARTRIDGE High??Sensitivity??Troponin T Hold Blue Top Tube Ionized Calcium Lactate Level Lactic Acid Level Lytes Magnesium Level MRSA PCR Nasal Swab Phosphorus Level POTASSIUM POC CARTRIDGE PROCALCITONIN, SERUM PT (INR) Respiratory Pathogen PCR with COVID-19 SODIUM POC CARTRIDGE Troponin T, High Sensitivity TSH WITH REFLEX TO FT4 UA W/Reflex Culture & Renal URINARY MICROALBUMIN VBG POC CARTRIDGE CT Abd/Pelvis W/ IV Contrast Only CT Angio Chest CT Head/Brain W/O Contrast Portable Chest XR Chest 2 Views Frontal and Lat XR Chest Portable Primary Care Provider Leoal ROSS, [facility] Advance Directive Health Care Proxy on File Yes - Health Care Proxy Discharge Vitals Temperature: 98.5 DegF Weight: 69 kg Pulse Rate: 61 bpm ?? Respiratory Rate: 16 br/min ?? Systolic Blood Pressure:??149 mm Hg??High ?? Diastolic Blood Pressure:??85 mm Hg??High ?? Oxygen Saturation: 95 % ?? Studies Pending All tests and labs ordered during this hospital stay have been completed unless listed below. Please discuss all pending results with your provider listed above in these instructions. ?? Blood Culture Blood Culture #2 What to do next Instructions From Your Doctor Discharge Orders You Need to Schedule the Following Appointments Follow Up with??Leola ROSS, [facility] Where: [address] [place] [phone]- Discharge Medications YONATHAN BABB :1960 Visit Date:02/06/2023 Medications: Please continue your medications until treatment is completed or stopped by your provider. Medications not listed below should be discontinued. Discuss any questions related to medications with your provider. What How Much When Instructions Next Dose New Levofloxacin (levoFLOXacin 750 mg oral tablet) 750 Milligram Oral Every 24 hours Duration: 5 Days First dose tomorrow ?? Pickup at [facility] 3 02/11 New PredniSONE (predniSONE 20 mg oral tablet) 40 Milligram Oral Daily Duration: 3 Days Pickup at [facility] 3 02/11 Changed Tiotropium (Spiriva Respimat 60 ACT 2.5 mcg/ inh inhalation aerosol) 2 puff(s) Inhalation Daily 02/11 Unchanged Albuterol (Albuterol (Eqv-ProAir HFA)) Inhalation Every 6 hours as needed as directed every 6 hours Unchanged apixaban (apixaban Starter Pack 5 mg oral tablet) 2 tab(s) Oral Twice a day Duration: 7 Days followed by 1 tablet by mouth twice daily for 23 days ?? 902/10 Unchanged Aspirin (Aspirin Low Dose 81 mg oral delayed release tablet) 1 tab(s) Oral Daily 02/11 Unchanged Atorvastatin (Lipitor 40 mg oral tablet) 1 tab(s) Oral Daily at Bedtime 02/10 Unchanged bictegravir/ emtricitabine/ tenofovir (Biktarvy oral tablet) 1 tab(s) Oral Daily Duration: 30 Days [facility] [place] [facility]. ?? 9a02/11 Unchanged Budesonide-Formoterol (Symbicort 160mcg/ 4.5mcg Inhaler) 2 puff(s) Inhalation Twice a day 02/10 Unchanged Carvedilol (carvedilol 6.25 mg oral tablet) See instructions 1 tablet By Mouth 2 times a day ?? 02/10 Unchanged dapagliflozin (Farxiga 10 mg oral tablet) See instructions take 1 tablet By Mouth Daily. ?? 02/11 Unchanged Fluticasone Nasal (fluticasone 50 mcg/ inh nasal spray) 1 spray(s) Nares, Both Daily in the morning 02/11 Unchanged Furosemide (furosemide 40 mg oral tablet) 1 tab(s) Oral Daily 02/11 Unchanged Methadone (methadone 10 mg/ 5 mL oral solution) 50 Milligram Oral Daily oral solution; goes to [facility] ?? 02/11 Unchanged Montelukast (montelukast 4 mg oral granule) 1 Each Oral Daily 02/11 Unchanged sacubitril-valsartan (Entresto 49 mg-51 mg oral tablet) See instructions 1 tablet By Mouth 2 times a day. note dose increase ?? 02/10 DOSE INCREASE Unchanged Spironolactone (spironolactone 25 mg oral tablet) 0.5 tab(s) Oral Daily take 1/ 2 tablet(12.5mg) by mouth once daily ?? 02/11 [facility] [address], [place] [id number] [phone] Test Results Below is a partial list of the most recent Laboratory test results done prior to this discharge. You may have had other tests and procedures not included in this list. Please discuss all test resultswith your provider. Ammonia Venous (02/06/2023) ???Ammonia, Venous - 15 ??mole/L B Type Natriuretic Peptide (02/05/2023) ???Nt-Probnp - 999 pg/mL BASE EXCESS POC CARTRIDGE (02/05/2023) ???Base Excess (POC) POC Cartridge - NEGATIVE 4 Basic Metabolic Panel (02/09/2023) ???Sodium - 138 mmol/L???Potassium - 4.8 mmol/L???Chloride - 101 mmol/L???Bicarbonate Level - 23 mmol/L???Anion Gap - 14???Glucose Level - 122 mg/dL???BUN - 33 mg/dL???Creatinine-Blood - 1.6 mg/dL???Estimated GFR Creatinine - 50 ML/MIN/1.73 M2???Calcium - 9.1 mg/dL BUN (02/10/2023) ???BUN - 31 mg/dL CALCIUM IONIZED POC CART (02/05/2023) ???Ionized Calcium (POC) POC Cartridge - 1.05 mmol/L CBC (02/10/2023) ???WBC - 6.0 k/mm3???RBC - 3.83 m/mm3???Hgb - 8.8 Gm/dL???Hct - 27.8 %???MCV - 72.6 femtoliters???MCH - 23.0 pg???MCHC - 31.7 g/dL???Platelet Count - 106 k/mm3???RDW-SD - 38.2 femtoliters???MPV - 11.1 femtoliters???Nucleated RBC (Automated) - 0.0 #/100 WBC'S???Abs. NRBC - 0.0 k/mm3 CBC w/ Differential (02/06/2023) ???WBC - 9.3 k/mm3???RBC - 4.22 m/mm3???Hgb - 9.7 Gm/dL???Hct - 31.5 %???MCV - 74.6 femtoliters???MCH - 23.0 pg???MCHC - 30.8 g/dL???Platelet Count - 117 k/mm3???RDW-SD - 39.9 femtoliters???MPV - 11.2 femtoliters???Nucleated RBC (Automated) - 0.0 #/100 WBC'S???Abs. NRBC - 0.0 k/mm3???Abs. Neut - 7.7 k/mm3???Abs. Lymph - 0.6 k/mm3???Abs. Berrien - 0.9 k/mm3???Abs. Eo - 0.0 k/mm3???Abs. Baso - 0.0 k/mm3???Neut % - 83.7 %???Lymph % - 6.2 %???Berrien % - 9.2 %???Eos % - 0.3 %???Baso % - 0.2 %???Imm Gran - 0.4 %???Abs. Imm Gran - 0.0 k/mm3 Comprehensive Metabolic Panel (02/07/2023) ???Sodium - 138 mmol/L???Potassium - 4.4 mmol/L???Chloride - 102 mmol/L???Bicarbonate Level - 27 mmol/L???Anion Gap - 9???Glucose Level - 88 mg/dL???BUN - 19 mg/dL???Creatinine-Blood - 1.5 mg/dL???Estimated GFR Creatinine - 52 ML/MIN/1.73 M2???Calcium - 8.5 mg/dL???Protein, Total - 5.3 Gm/dL???Albumin - 3.2 Gm/dL???AG Ratio - 1.5???Alkaline Phosphatase - 95 units/L???AST (SGOT) - 27 units/L???ALT(SGPT) - 22 units/L???Bilirubin, Total - 0.3 mg/dL COVID-19 RNA POC (02/05/2023) ???COVID-19 POC Result - NEGATIVE Creatinine (02/10/2023) ???Creatinine-Blood - 1.5 mg/dL???Estimated GFR Creatinine - 52 ML/MIN/1.73 M2 GLUCOSE POC (02/09/2023) ???Glucose, POC - 187 mg/dL GLUCOSE POC CARTRIDGE (02/05/2023) ???Glucose (POC) POC Cartridge - 268 HEMATOCRIT POC CARTRIDGE (02/05/2023) ???Hematocrit (POC) POC Cartridge - 42 % HEMOGLOBIN A1C (02/06/2023) ???Hemoglobin A1C (Monitoring) - 6.4 % HEMOGLOBIN POC CARTRIDGE (02/05/2023) ???Hemoglobin (POC) POC Cartridge - 14.3 Gm/dL High??Sensitivity??Troponin T (02/06/2023) ???High Sensitivity Troponin (HSTnT) - 108 ng/L Hold Blue Top Tube (02/05/2023) ???Hold Blue Top - SPECIMEN DISCARDED AFTER 4 HOURS. Ionized Calcium (02/06/2023) ???Calcium, Ionized pH Corrected - 1.22 mmol/L Lactate Level (02/06/2023) ???Lactate - 1.1 mmol/L Lactic Acid Level (02/05/2023) ???Lactate - 2.5 mmol/L Lytes (02/10/2023) ???Sodium - 139 mmol/L???Potassium - 4.3 mmol/L???Chloride - 103 mmol/L???Bicarbonate Level - 24 mmol/L???Anion Gap - 12 Magnesium Level (02/10/2023) ???Magnesium - 2.1 mg/dL MRSA PCR Nasal Swab (02/06/2023) ???MRSA PCR Result - Negative, MRSA target DNA not detected.???S Aureus PCR Result - Negative, SA target DNA not detected. Phosphorus Level (02/10/2023) ???Phosphorus - 2.9 mg/dL POTASSIUM POC CARTRIDGE (02/05/2023) ???Potassium (POC) POC Cartridge - 5.5 mmol/L PROCALCITONIN, SERUM (02/07/2023) ???Procalcitonin - 1.47 ng/mL PT (INR) (02/06/2023) ???INR - 1.0???Protime (PT) - 11.1 seconds Respiratory Pathogen PCR with COVID-19 (02/06/2023) ???Adenovirus by PCR - NEGATIVE???Coronavirus 229E by PCR (not COVID-19) - NEGATIVE???Coronavirus HKU1 by PCR (not COVID-19) - NEGATIVE???Coronavirus NL63 by PCR (not COVID-19) - NEGATIVE???Coronavirus OC43 by PCR (not COVID-19) - NEGATIVE???Human Metapneumovirus by PCR - NEGATIVE???Rhinovirus/Enterovirus by PCR - POSITIVE???Influenza A by PCR - NEGATIVE???Influenza B by PCR - NEGATIVE???Parainfluenza 1 by PCR - NEGATIVE???Parainfluenza 2 by PCR - NEGATIVE???Parainfluenza 3 by PCR - NEGATIVE???Parainfluenza 4 by PCR - NEGATIVE???RSV by PCR - NEGATIVE???Bordetella Pertussis by PCR - NEGATIVE??? Chlamydophila Pneumoniae by PCR - NEGATIVE???Mycoplasma Pneumoniae by PCR - NEGATIVE???COVID-19 (SARS-CoV-2) by PCR - NEGATIVE???Bordetella Parapertussis by PCR - NEGATIVE SODIUM POC CARTRIDGE (02/05/2023) ???Sodium (POC) POC Cartridge - 131 mmol/L Troponin T, High Sensitivity (02/06/2023) ???High Sensitivity Troponin (HSTnT) - 126 ng/L TSH WITH REFLEX TO FT4 (02/05/2023) ???TSH - 1.40 uIU/mL UA W/Reflex Culture & Renal (02/06/2023) ???Appear/Color, Urine - COLORLESS???Clarity - CLEAR???Specific Swain, Urine - 1.028???pH, Urine - 6.0???Albumin, Urine - NEGATIVE???Glucose, Urine - 4+???Ketones, Urine - NEGATIVE???Bilirubin, Urine - NEGATIVE???Hemoglobin, Urine - NEGATIVE???Nitrite, Urine - NEGATIVE???Leukocyte, Urine - NEGATIV E???Urobilinogen - NORMAL???WBC's, Urine - 2 /HPF???RBC's, Urine - 1 /HPF???Culture Indication - CULTURE NOT INDICATED URINARY MICROALBUMIN (02/06/2023) ???Malb/Creat Ratio - Unable to calculate???Urine Creat For Micro Alb - 45.2 mg/dL???Micro-Albumin - <12.0 mg/L VBG POC CARTRIDGE (02/05/2023) ???pH Venous (POC) POC Cartridge - 7.31???pCO2 Venous (POC) POC Cartridge - 43.8 mm Hg???pO2 Venous(POC) POC Cartridge - 64 mm Hg???Est Bicarbonate (POC) POC Cartridge - 22.3 mmol/L???% O2 Sat Venous (POC) POC Cartridge - 90???Specimen Type - Blood Gas - VENOUS Allergies (NKA means No Known Allergies) NKA Problems No qualifying data available Education Materials Below is the list of Educational Leaflet Providered with your Discharge Instructions. Valuables and Belongings I fully understand and agree that [facility] accepts no responsibility for all my personal [...] Review of Valuable and Belonging List: With witness Date for Pt to Sign Valuables/Belongings: 02/09/23 04:47:00 ?? Other Discharge Information ?? Wound Assessment?? Wound Assessment?? Wound Location I: Leg, right lower ?? Case Management Discharge Plan?? Discharge Plan?? Discharge Rx Program: Discharge Prescription Program ?? Pulmonary Rehab Status?? Pulmonary Rehab Discharge Status?? Respiratory Rate: 16 br/min PEEP: 8 ? Common Emergency Awareness Tips IS IT [...] are strongly encouraged to quit. Please call [employer] Link at [phone] or [phone] ([phone]) or log in to [email or web address] for referrals to smoking cessation programs. ?? 988 Suicide & Crisis Lifeline is available 01/03 if you or someone you know needs to find a reason to keep living. By calling 988 you'll be connected to a skilled, trained counselor at a crisis center in your area. INPATIENT DISCHARGE INSTRUCTIONS SIGNATURE PAGE YONATHAN BABB Location:[facility] Registration Date and Time:02/06/2023 02:07 EDT Primary Care Physician: Leola ROSS, [facility], Attending Physician: Khoa ROSS, Estefani, I YONATHAN BABB, have received the above patient education materials/instructions and have verbalized understanding. If ambulance or transport services are being used I further acknowledge being givena choice of service. ?? If you need to contact me, please call me at this number: . Patient/Car Rental Sales Assistant Name: Patient/Car Rental Sales Assistant Signature: Relationship to Patient: Witness Name/Signature: Date: * Darlin Perkins RN: PERFORM Event Display: Patient Education Leaflets Authored Date: [id number] Asthma and COPD ?? [id number] El asma y la EPOC Algunas personas presentan m??s de un problema de tala al mismo tiempo. Si tiene la enfermedad pulmonar obstructiva cr??kamala (EPOC), es posible que tambi??n tenga asma. Estas dos afecciones se consideran trastornos diferentes. Brett persona puede tener ambos. La EPOC y el asma se relacionan con las s iguientes caracter??sticas: ??? Personas que fuman ??? Fumadores severos que tengan genes que causen brett reacci??n inflamatoriay al??rgica luego de inhalar alg??n irritante. Cuando brett persona tiene EPOC y asma, se deben tratar ambas enfermedades. El cigarrillo es la causa principal de la EPOC. El enfisema y la bronquitis cr??kamala son las dos afecciones principales de la EPOC. En ambas afecciones, los pulmones y las v??as respiratorias est??n da??ados. La causa mayor de da??o es la inhalaci??n de irritantes nely un anthony per??odo. Debido a esto, el aire no puede fluir con normalidad a elizabet??s de las v??as respiratorias en los pulmones. Los conductos que llevan el aire dentro y fuera de los pulmones (las v??as respiratorias) pueden obstruirse o colapsarse. Eso puede causarle s??ntomas similares a los del asma. Estos incluyen falta deaire, sibilancias, opresi??n en el pecho y tos. El asma tambi??n es un problema de tala permanente que afecta las v??as respiratorias en los pulmones. A menudo se inicia en la infancia. Agata puede afectar a personas de todas las edades. Cuando brett persona tiene asma, las v??as respiratorias se inflaman y se estrechan. Los m??sculos que rodean las v??as respiratorias se tensan. Lazy Y U dificulta que el aire pase a elizabet??s de las v??as respiratorias. Si tiene asma, las v??as respiratorias son muy sensibles a los al??rgenos e irritantes. Los al??rgenos podr??an ser el humo del tabaco, las sustancias contaminantes del aire, el polen, las mascotas y, en ocasiones, la actividad f??maría. Estos se denominan desencadenantes del asma. Puede no tener s??ntomas, incluso cuando el revestimiento de las v??as respiratorias est?? hinchadoo inflamado. Cuando s?? tiene s??ntomas, las v??as respiratorias pueden estar extremadamente inflamadas. Incluso puede tener un ataque de asma. Lazy Y U sucede cuando las v??as respiratorias se cierran de brett manera william estrecha que el aire no puede ni entrar ni salir. Un ataque de asma moderado puede causar problemas para respirar. Agata brett crisis o ataque de asma grave lo enviar??n al hospital. En todo momento recurra a leon plan de acci??n para controlar el asma. Es importante mantenerse alejado de los desencadenantes para poder mejorar los s??ntomas y ayudar a controlar el asma. ??C??mo el asma aumenta el riesgo de la EPOC? No todas las personas que sufren asma desarrollan EPOC. Sin embargo, si tiene asma ser??n mayores las probabilidades de que desarrolle EPOC posteriormente. El asma puede da??ar las v??as respiratorias de los pulmones. Con el tiempo, brett inflamaci??n cr??kamala leve puede afectar las v??as respiratorias. Puede tener problemas respiratorios de por tito (permanentes). Debido a esto, las posibilidades de EPOC podr??an incrementar. El tabaquismo aumenta a??n m??s roime riesgo. Si tiene s??ntomas de asma o EPOC, pida que lo evie un proveedor de atenci??n m??dica especializado en alergias (alergista) o un especialista en pulmones (neum??logo). ?? S??ntomas Muchos de los s??ntomas de la EPOC son similares a los del asma. Puede resultar dif??cil determinarqu?? afecci??n los causa. Estos son algunos de los s??ntomas m??s comunes de ambas afecciones: ??? Tos frecuente ??? Silbidos, especialmente cuando inhala y exhala (sibilancias) ??? Opresi??n en el pecho ??? Dificultad para respirar ??? Falta de aire nely ciertas actividades ??? Cansancio ??? Falta de energ??a nely la actividad f??maría ?? Tratamiento Tanto el asma aracely la EPOC son problemas de tala permanentes. No existe bry para el asma ni para la EPOC. Los planes de tratamiento pueden variar para cada persona diagnosticada con EPOC y asma. Cristel proveedores de atenci??n m??dica y alerg??logo pensar??n con usted un plan de tratamiento. Leon plande tratamiento puede incluir lo siguiente: ??? Tristan medicamentos. Los medicamentos ayudan a tratarlos s??ntomas de la EPOC y del asma. Tambi??n pueden reducir las posibilidades de sufrir problemas respiratorios graves. Pueden ayudarle a mantenerse alejado del hospital. Bethesda los medicamentos todoslos d??as seg??n las indicaciones. Si tiene asma, recurra a leon plan de acci??n para controlar el asma y la afecci??n. ??? Dejar de fumar. Si fuma, dejar el cigarrillo es brett de las mejores decisionesque puede tristan por leon tala. Dejar de fumar puede ayudar a mejorar los s??ntomas. Lazy Y U incluye no usar cigarrillos electr??nicos ni productos de vapeo. Pida ayuda al equipo de atenci??n m??dica paradejar de fumar. ??? Mantenerse alejado de los irritantes y desencadenantes. Los irritantes y desencadenantes para ambas afecciones pueden incluir la contaminaci??n ambiental exterior; la contaminaci??n en interiores, aracely la quema de mitchell, el humo de la estufa o la cocina; vapores qu??micos; polvillo ambiental, y el humo, incluso el humo de los fumadores pasivos. Otros desencadenantes comunes para el asma incluyen el polen; ??caros del polvo; heces de las cucarachas; mascotas; el moho; oloresfuertes; cambios clim??ticos, especialmente el clima fr??o; emociones savage, aracely el llanto y la aundrea, y la actividad f??maría. En el saulo del asma, conocer los factores desencadenantes y mantenersealejado de ellos puede prevenir los s??ntomas y las crisis (ataques de asma). Siempre mantenga con usted el plan de acci??n para controlar el asma y los medicamentos de rescate. ??? Si tiene EPOC useterapia de ox??rebeca. Cuando el nivel de ox??rebeca en la grace es demasiado bajo, el proveedor de atenci??n m??dica puede recetarle ox??rebeca. Tambi??n, se le puede proporcionar ox??rebeca adicional cuando los pulmones no puedan llevar suficiente ox??rebeca a la grace. ??? Unirse a brett rehabilitaci??n pulmonar. La rehabilitaci??n pulmonar es un programa que le proporciona las habilidades necesarias para controlar la EPOC y el asma en leon tito diaria. La rehabilitaci??n puede hacerse en brett congregaci? ?n, en leon casa o en el hospital. Cualquiera de estos lugares puede funcionar dependiendo de cu??n seguido concurra y cu??nto se esfuerce. La essie niki de la rehabilitaci??n es la rehabilitaci??npulmonar tradicional supervisada por especialistas de la tala. Preg??ntele a leon proveedor si estostipos de programas est??n disponibles para leon rehabilitaci??n pulmonar. Hable con leon proveedor de atenci??n m??dica para saber qu?? programa de rehabilitaci??n es el mejor para usted. ?? Consejos sobre cuidados personales Hay medidas, aracely las siguientes, que puede tristan para controlar tanto el asma aracely la EPOC. ??? Deje de fumar. En cuanto manolo de fumar, detiene el da??o adicional a los pulmones. Hable con elproveedor de atenci??n m??dica si necesita ayuda para dejar de fumar. No use cigarrillos electr??nicos ni productos de vapeo. ??? Evite el tabaquismo pasivo y otros irritantes. Intente mantenerse lejos del humo, de sustancias qu??micas, de vapores, del polen y del polvo. No permita que fumen en leno casa o utilicen cigarrillos electr??nicos o productos de vapeo. En d??as con emery contaminaci??n, permanezca en el interior. ??? Prevenga las infecciones pulmonares. Si tiene EPOC, aumenta el riesgo de tener gripe y neumon??a. Consulte con leon proveedor de atenci??n m??dica acerca de las vacunas contra la gripe y la neumon??a. Bethesda las medidas necesarias para prevenir el resfriado y otras infecciones pulmonares. ??? L??vese las joel correctamente. L??vese las joel con agua y jab??n con frecuencia. Restriegue nely 20??segundos. Use desinfectante para joel cuando no se las puede verenice. Mant ??ngase alejado de las multitudes nely la temporada de resfriado y gripe. ??? Tracy agua. Lazy Y U ayuda a que la mucosidad sea m??s ligera y m??s f??cil de expulsar al toser. Preg??ntele a leon proveedor cu??nta agua debe beber. En la mayor??a de los casos, brett buena cantidad son 6??u 8??vasos de 240??ml (8??onzas), a menos que le den otras indicaciones. ??? Despeje las v??as respiratorias. Cuando los pulmones producen emery mucosidad o le resulta dif??cil de expulsar al toser, las t??cnicas de eliminaci??n de secreciones de las v??as respiratorias pueden ser ??tiles. Estas incluyen t??cnicas para toser y drenaje postural. Mantener los pulmones libres de mucosidad ayuda a prevenir la falta de aire y otros s??ntomas. Preg??ntele a leon proveedor de atenci??n m??dica sobre estas t??cnicas. ??? Rhoda ejercicios respiratorios. Aprenda a hacer la respiraci??n abdominal y con los labios fruncidos. Rhoda estos ejercicios mientras trabaja. Pueden ayudarlo a respirar mejor. Tristan respiraciones lentasy profundas en cualquier momento puede brindarle m??s del ox??rebeca que necesita. ??? Coma malcolm. Si est?? cansado, quiz??s no come william malcolm aracely deber??a. La azam nutrici??n puede empeorar los s??ntomas. Tambi??n puede aumentar el riesgo de contraer infecciones. Intente descansar antes de comer. Coma ester??as comidas a lo anthony del d??a. Consulte a leon proveedor de atenci??n m??dica si debe tristan vitaminas o suplementos. ??? Mantenga un peso saludable. Tener bajo peso puede limitar leon energ??a. Tener sobrepeso puede empeorar la falta de aire. Las personas con EPOC que tienen un bajo ??ndice demasa corporal pueden presentar m??s problemas. Colabore con el proveedor para determinar el peso ideal para usted. ??? Busque el equilibrio entre actividad y descanso. Lazy Y U puede ayudarlo a no cansarse demasiado. Det??ngase y descanse antes de sentirse agotado. Si brett actividad requiere emery energ??a, div??dala en partes. Por ejemplo, doble la ropa mathew. Luego descanse antes de guardarla. C??ntrese en las actividades m??s importantes. ??? Ahorre energ??a. C??mo usa el cuerpo nely brett tarea puede ayudarlo a tener m??s energ??a. Realice cristel actividades lentamente. Si se apresura, consumir?? m??s energ??a. Tambi??n puede aumentar la falta de aire. Si??ntese para vestirse y para hacer otras tareas diarias, aracely cepillarse los dientes. Use un carrito con chasity para transportar alimentos, ropa y otros art??culos por leon casa. Mantenga las cosas que usa con frecuencia a la altura de la cintura para que pueda tomarlas f??cilmente. ??? No kota hacer ejercicio. Hacer ejercicio puede provocarle falta de aire. Agata, de todos modos, es leung para los pulmones. El ejercicio puede fortalecer los m??sculos que lo ayudan a respirar. Consulte al proveedor qu?? ejercicios son seguros para usted. ? 4983-5530 [employer]. All rights reserved. This information is not intended as a substitute for professional medical care. Always follow your healthcare professional's instructions. ?? * Darlin Perkisn RN: PERFORM Event Display: Patient Education Leaflets Authored Date: [id number] Preventing Common Respiratory Infections ?? 18377 Prevenci??n de las infecciones respiratorias frecuentes Las infecciones respiratorias aracely los resfriados y la gripe??(influenza) son muy frecuentes. A menudo, las infecciones respiratorias son causadas por virus. Pueden presentar varios s??ntomas comunes. Agata no todas las infecciones respiratorias son iguales. Algunas son enfermedades m??s graves que otras. Usted puede tristan medidas para prevenir las infecciones respiratorias frecuentes. Y si llega a enfermarse, puede cuidarse a s?? mismo para impedir que leon infecci??n empeore. ??Qu?? es un resfriado? Los s??ntomas del resfriado pueden incluir goteo y congesti??n nasal, tos, estornudos y dolor de garganta. Los s??ntomas del resfriado suelen ser m??s leves que los de la gripe. ??? Los s??ntomas tienden a manifestarse lentamente. Pueden durar entre varios d??as y brett semana. ??? Con un resfriado, es probable que se sienta capaz de seguir con leon rutina habitual. ??? Los resfriados pueden transmitirse de brett persona a otra. Siga las sugerencias que se muestran a continuaci??n para evitar la transmisi??n de los g??rmenes. ?Qu?? es la gripe? Los s??ntomas de la gripe son fiebre, escalofr??os, dolor de gama, cansancio extremo (fatiga), tos, dolor de garganta, goteo y congesti??n nasal, y nimo musculares. Los ni??os pueden tener adem??s el est??shannan revuelto y v??mitos, agata estos s??ntomas no suelen afectar a los adultos. ??? Los s??ntomas tienden a presentarse r??pidamente. Algunos, aracely el cansancio y latos, pueden durar varias semanas. ??? La gripe causa agotamiento y a veces impide realizar las actividades normales. ??? La gripe puede transmitirse de brett persona a otra. Siga las sugerencias que semuestran a continuaci??n para evitar la transmisi??n de los g??rmenes. ??? Si un adulto tiene v??mitos o diarrea por fred o dos d??as, lo m??s probable es que no se trate de brett gripe. Probablemente, sea brett infecci??n gastrointestinal, tambi??n llamada gripe estomacal . ?? Cuando la infecci??n empeora Sin los cuidados adecuados, brett infecci??n respiratoria puede empeorar y volverse grave. Puede derivar en complicaciones serias o muerte. Llame a leon proveedor de atenci??n m??dica si no se siente mejor o si los s??ntomas empeoran. Algunas de las complicaciones son las siguientes: ??? Bronquitis (inf ecci??n de las v??as respiratorias que provoca falta de aire, sibilancias y expectoraci??n de mucosidad espesa de color amarillo o dann) ??? Neumon??a, brett infecci??n de los pulmones caracterizada por acumulaci??n de l??quido y mucosidad en los pulmones, lo que dificulta la respiraci??n. ??? Empeoramiento de afecciones cr??nicas aracely insuficiencia card??gerardo, enfermedad pulmonar cr??kamala, asma o diabetes ??? Deshidrataci??n (p??rdida de l??quidos) grave ??? Problemas de los senos paranasales (sinusitis) ??? Infecciones de los o??dos ?? Reciba las vacunas recomendadas Consulte con el proveedor de atenci??n m??dica qu?? vacunas son las adecuadas para usted y cu??ndo debe recibirlas. Las vacunas recomendadas pueden ser las siguientes: ??? Vacuna contra la influenza. Esta suele llamarse vacuna antigripal. Esta vacuna le sumaya protecci??n contra la influenza. Vac??nese todos los a??os en el radu??o, antes de que comience la temporada de la gripe. La gripe es m??s com??n en los [place] nely el radu??o y el invierno. Puede vacunarse en un centro de consultas externas, el consultorio de un proveedor de atenci??n m??dica, la farmacia, un centro para la tercera edad o ciertos lugares de trabajo. ??? Vacuna antineumoc??cica. Hay 2 vacunas contra la neumon??a neumoc??cica que protegen contra muchos tipos de neumon??a bacteriana. Hable con leon proveedor de atenci??n m??dica acerca de estas vacunas william importantes. ??? Vacuna contra la COVID-19. Hay diferentes tipos de vacuna contra la COVID-19. Estas lo protegen de la COVID-19, especialmente formas graves y mortales de la enfermedad. Hable con leon proveedor de atenci??nm??dica para obtener m??s informaci??n sobre la vacuna contra la COVID-19. ?? Evite la transmisi??n de los g??rmenes A nadie le gusta enfermarse. Los virus que causan los resfriados, la gripe y otras infecciones pueden transmitirse de brett persona a otra. Para protegerse y proteger a los dem??s de los g??rmenes sigalas estas recomendaciones: ??? Utilice brett mascarilla en los espacios p??blicos. ??? C??brase la nariz y la boca al toser o estornudar. Use un pa??uelo de papel o el pliegue del codo. No use las joel. Deseche el pa??uelo. L??vese las joel despu??s de toser, estornudar o soplarse la nariz. ??? L??vese las joel a menudo con agua corriente limpia y jab??n. L??vese por lo menos nely 20??segundos. Cuando no tenga acceso al agua y el jab??n, use desinfectante para joel a base de alcohol. ??? Evite tocarse los ojos, la nariz y la boca. Lazy Y U puede ayudar a mantener los g??rmenes fuera de leon cuerpo. ??? Evite estar cerca de personas con infecciones respiratorias. Mientras est?? enfermo, limite el contacto estrecho con otras personas. Evite las aglomeraciones de personas nely la temporadade gripe. ??? No fume ni permita que las personas fumen en leon casa o autom??dina. ?? C??mo lavarse las joel ??? Use agua corriente limpia y mucho jab??n. Fr??tese las joel hasta formar abundante espuma. ??? L??vese toda la mano, debajo de las u??as, entre los dedos y hasta la mu??eca. L??vese por lo menos nely 20??segundos. No se limite a un lavado superficial; fr??tese malcolm la piel. Para medir el tiempo, vimal la canci??n del herrera cumplea??os dos veces. ??? Enju??guese. Deje que el agua le corra de los dedos hacia abajo y no hacia las mu??ecas. ??? Si est?? en un cuarto de ba??o p??blico, use brett toalla de papel para cerrar el grifo y abrir la balta. ??? Cuando no tenga agua y jab??n, use un desinfectante para joel que contenga al menos un 60??% de alcohol. ?? Last Reviewed Date: 2021 ?? [id number] [employer]. Todos los derechos reservados. Esta informaci??n no pretende sustituir la atenci??n m??dica profesional. S??lo leon m??dico puede diagnosticar y tratar un problema de tala. ?? Patient Care team information Care Team Personnel Name: Nataliia Pulido RN Position: [facility] RN Supv Member Role: Primary Care Nurse Name: Irvin Painter RN Position: [facility] RN Member Role: Primary Care Nurse Name: Rajani Anderson Position: S RN Member Role: Primary Care Nurse Name: Ivone Herrera RN Position: S RN Member Role: Primary Care Nurse Name: Princess Calderon RN Position: S RN Member Role: Primary Care Nurse Name: Helena Sutton RN Position: S RN Member Role: Primary Care Nurse Name: Ruy Mack DO Position: [facility] Renal MD Member Role: Lifetime Consulting Physician Address: Address: [address] [place], [place] [id number] [place] [address]- [place] Name: Joan Reilly MD Position: [facility] Physician - Infectious Disease Member Role: Lifetime Consulting Physician Address: Address: [address] [place] [address] [place] [address]- [place] Name: Dora Ho Position: [facility] Outreach Member Role: Lifetime Consulting Physician Name: Estefany Russell RN Position: [facility] RN Member Role: Primary Care Nurse Name: Marilee Burleson RN Position: [facility] RN Member Role: Primary Care Nurse Name: Joseph Song RN Position: [facility] RN Member Role: Primary Care Nurse Name: Heike Smalls RN Position: [facility] RN Member Role: Primary Care Nurse Name: Ning Isidro RN Position: [facility] RN Member Role: Primary Care Nurse Name: Lisa Cotto RN Position: [facility] RN Member Role: Primary Care Nurse Name: Loreta Bhagat MD Position: Reference Physician Member Role: PCP Address: Address: [address] [place] [address]- Name: Rudy Serrano MD Position: [facility] Resident Member Role: Chart Review Address: Address: [address] [place] [address]- [place] Name: Bria Cortes MD Position: [facility] ED Medicine MD Member Role: ED Attending Physician Address: Address: [address] [place] [address]- Name: Aleks Dixon RN Position: [facility] ED RN W/OE and Tasks Member Role: Patient Care Provider Name: Patsy Brand Position: [facility] ED TA [facility] Member Role: Key Filer Care Team Related Persons Name: YONATHAN BABB Address: home [address] [address]
--- OUTSIDE RECORDS SUMMARY | 2024-03-29 08:04 | XMS_ITS | Continuity of Care Document ---
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 Name Role Phone Leola ROSS, Loreta Primary Care Physician Encounter [facility] Date(s): 12/28/22 - 02/11/[address] [id number] Attending Physician: Bronson Lozoya MD Admitting Physician: Bronson Lozoya MD Referring Physician: Stanley Frost MD Allergies, Adverse Reactions, Alerts No Known Allergies Immunizations Given and Recorded Vaccine Date Status Refusal Reason tetanus-diphtheria toxoids (Td) 11/11/22 Given [id number] 12y+ bivalent booster vax 08/25/22 Recorded zoster vaccine, inactivated 1 05/20/22 Given zoster vaccine, inactivated 2 01/21/22 Given SARS-CoV-2 mRNA ([id number]) vax 12/10/21 Recorded pneumococcal 23-valent vaccine 09/10/21 [...] tablet, 0 Refills, Maintenance, 01/26/23 9:00:00 EDT, [facility], Partial fill upon patient request if [...] oral tablet 1 tablet, By Mouth, Daily, Talco brett tableta todos los mei., # 30 tablet, 5 Refills, Maintenance, 12/04/22 12:22:00 EDT, [facility]/pharmacy #[id number], 1 tablet By Mouth Daily,x30 days,Instr:Talco brett tableta todos los mei., 73.8, kg, [...] Instructions Replace Required Details, Route to Pharmacy Electronically,[facility]/pharmacy #[id number], Partial fill upon patient reque... Start Date: 10/14/22 Status: Ordered Entresto 49 mg-51 mg oral tablet See Instructions, 1 tablet By Mouth 2 times a day. note dose increase, # 60 tablet, 2 Refills, Maintenance, 11/18/22 13:27:00 EDT, [facility]/pharmacy #[id number], Partial fill upon patient request if the prescription is for a schedule II opioid drug., 1 tablet By... Start Date: 11/18/22 Status: Ordered Farxiga 10 mg oral tablet See Instructions, take 1 tablet By Mouth Daily., # 30 tablet, 2 Refills, Maintenance, 10/14/22 13:22:00 EST, [facility]/pharmacy #[id number], new start farxiga, 73.8, kg, 08/31/22 15:22:00 EST, Dry Weight Start Date: 10/14/22 Status: Ordered fluticasone 50 mcg/inh nasal spray 1 sprays, Nares, Both, Daily in AM, 0 Refills, Maintenance, 02/06/23 9:55:00 EDT, [place], Partial fill upon patient request if the [...] 02/16/23 9:00:00 EDT, 02/11/23 9:00:00 EDT, Tablet, [facility], Partial fill upon patient request if [...] By Mouth, Daily, oral solution; goes to [facility], 0 Refills, Maintenance, 08/31/22 16:53:00 EST, Partial fill upon patient request if the prescription is for a schedule II opioid drug. Start Date: 08/31/22 Status: Ordered methadone 40 mg oral tablet, dispersible 50, By Mouth, Daily, 0 Refills, Maintenance, 02/09/20 9:51:00 EDT, Partial fill upon patient request Start Date: 02/09/20 Status: Ordered montelukast 4 mg oral granule [...] 02/13/23 12:40:00 EDT, 02/10/23 12:40:00 EDT, Tablet, [facility], Partial fill upon patient request if [...] 12/28/22 12:31:00 EDT, Route to Pharmacy Electronically, [facility]/pharmacy #[id number], rph : note dose decrease please cance... Start Date: 12/28/22 Status: Ordered Symbicort 160mcg/4.5mcg Inhaler 2, puffs, Inhalation, 2 times a day, Maintenance, 02/06/23 9:55:00 EDT, Aerosol Start Date: 02/06/23 Status: Ordered Social History Social History Type Response Tobacco Use: 4 or less cigar ettes(less than 1/4 pack)/day in last 30 days. Interested in cessation: No. No, 39 Number of years:. Cessation attempts: 4. Tobacco user in household: No. Sex Patient Care team information Care Team Personnel Name: Nataliia Pulido RN Position: [facility] RN Supv Member Role: Primary Care Nurse Name: Irvin Painter RN Position: S RN Member Role: Primary Care Nurse Name: Rajani Anderson Position: [facility] RN Member Role: Primary Care Nurse Name: Ivone Herrera RN Position: [facility] RN Member Role: Primary Care Nurse Name: Princess Calderon RN Position: [facility] RN Member Role: Primary Care Nurse Name: Helena Sutton RN Position: [facility] RN Member Role: Primary Care Nurse Name: Ruy Mack DO Position: [facility] Renal MD Member Role: Lifetime Consulting Physician Address: Address: [address] [place] [address] [facility] [place], [place] [address] Name: Joan Reilly MD Position: [facility] Physician - Infectious Disease Member Role: Lifetime Consulting Physician Address: Address: [address] [place] [address] [place], [place] [address] Name: Dora Ho Position: [facility] Outreach Member Role: Lifetime Consulting Physician Name: Estefany Russell RN Position: [facility] RN Member Role: Primary Care Nurse Name: Marilee Burleson RN Position: [facility] RN Member Role: Primary Care Nurse Name: Joseph Song RN Position: [facility] RN Member Role: Primary Care Nurse Name: Heike Smalls RN Position: S RN Member Role: Primary Care Nurse Name: Ning Isidro RN Position: S RN Member Role: Primary Care Nurse Name: Lisa Cotto RN Position: [facility] RN Member Role: Primary Care Nurse Name: Loreta Bhagat MD Position: Reference Physician Member Role: PCP Address: Address: [address] [place] [id number]- Care Team Related Persons Name: YONATHAN BABB Address: home [address] [address]
--- OUTSIDE RECORDS SUMMARY | 2024-03-29 08:04 | XMS_ITS | Continuity of Care Document ---
Author Organization [facility] Address [address] [place] [address]- Care Team Providers Care [place] Name Role Phone Maryjo Reina DO Primary Care Jessica pfeiffer [place] [facility] [place] - 08/28/21 [facility] [address] [place], [place] [address] Immunizations Given and Recorded Vaccine Date Status Refusal Reason SARS-CoV-2 (COVID-19) mRNA-1273 vaccine 01/10/21 R ecorded SARS-CoV-2 (COVID-19) mRNA-1273 vaccine 12/04/20 R ecorded influenza virus vaccine, inactivated 06/14/19 Give n tetanus/diphtheria/pertussis, acel(Tdap) 12/07/12 Recorded pneumococcal 13-valent vaccine 12/07/12 Recorded Medications Biktarvy oral tablet 1 tablet, By Mouth, Daily, # 30 tablet, 2 Refills, Maintenance, 07/29/21 12:06:00 EST, [facility]acy#[id number], 1 tablet By Mouth Daily,x30 days Start Date: 07/29/21 Stop Date: 10/27/21 Status: Ordered Biktarvy oral tablet 1 tablet, By Mouth, Daily, # 30 tablet, 5 Refills, Maintenance, 10/09/20 10:08:00 EST, [id number], 1 tablet By Mouth Daily,x30 days Start Date: 10/09/20 Stop Date: 04/07/21 Status: Ordered
--- OUTSIDE RECORDS SUMMARY | 2024-03-29 08:04 | XMS_ITS | Continuity of Care Document ---
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 Name Role Phone Loreta Bhagat MD Primary Care Physician [place] [facility] [place]23 - 01/16/[address] [address]- Encounter Diagnosis COPD exacerbation(Final) - 01/16/23 Discharge Disposition: A-D/C Home Attending Physician: Tonny Vivar MD Admitting Physician: Tonny Vivar MD Referring Physician: Not on Staff, Referring MD Allergies, Adverse Reactions, Alerts No Known Allergies Immunizations Given and Recorded Vaccine Date Status Refusal Reason tetanus-diphtheria toxoids (Td) 11/11/22 Given [id number] 12y+ bivalent booster vax 08/25/22 Recorded zoster vaccine, inactivated 1 05/20/22 Given zoster vaccine, inactivated 2 01/21/22 Given SARS-CoV-2 mRNA ([id number]) vax 12/10/21 Recorded pneumococcal 23-valent vaccine 09/10/21 [...] Comment: Dose#2 2Result Comment: Shingrix dose#1 Medications - -, See Instructions, # 1 each, Refills 0, Tot. Refills 0, Maintenance, Go to the lab and do a basicmetabolic panel in 3-4 days., 09/04/22 14:37:00 EST, Supply Start Date: 09/04/22 Status: Ordered Albuterol (Eqv-ProAir HFA) Inhalation, Every 6 hours, 0 Refills, Maintenance, 01/21/22 11:49:00 EDT, Partial fill upon patientrequest if the prescription is for a schedule II opioid drug. Start Date: 01/21/22 Status: Ordered aspirin 81 mg oral delayed release tablet 81 mg, By Mouth, Daily, # 90 tablet, Refills 3, Tot. Refills 3, Maintenance, 12/02/22 13:45:00 EDT,Route to Pharmacy Electronically, [facility]/pharmacy #[id number], Partial fill upon patient request if the prescription is for a schedule II opioid drug., 73.8, kg... Start Date: 12/02/22 Status: Ordered azithromycin 250 mg oral tablet 1 tablet = 250 mg, By Mouth, Daily, for 4 days, # 4 tablet, 0 Refills, Acute 01/21/23 9:00:00 EDT, 01/17/23 9:00:00 EDT, Tablet, [facility]/pharmacy #[id number], Partial fill upon patient request if the prescription is for a schedule II opioid drug., 73.8, kg, ... Start Date: 01/17/23 Stop Date: 01/21/23 Status: Ordered Biktarvy oral tablet 1 tablet, By Mouth, Daily, [place] brett tableta todos los mei., # 30 tablet, 5 Refills, Maintenance, 12/04/22 12:22:00 EDT, [facility]/pharmacy #[id number], 1 tablet By Mouth Daily,x30 days,Instr:[place] brett tableta todos los mei., 73.8, kg, [...] tablet, 2 Refills, Maintenance, 11/18/22 13:27:00 EDT, [id number], Partial fill upon patient request if the prescription is for a schedule II opioid drug., 1 tablet By... Start Date: 11/18/22 Status: Ordered Farxiga 10 mg oral tablet See Instructions, take 1 tablet By Mouth Daily., # 30 tablet, 2 Refills, Maintenance, 10/14/22 13:22:00 EST, [id number], new start farxiga, 73.8, kg, 08/31/22 15:22:00 EST, Dry Weight Start Date: 10/14/22 Status: Ordered furosemide 40 mg oral tablet See Instructions, take 1/2 tab daily, # 30 tablet, Refills 0, Tot. Refills 0, Maintenance, 09/16/2313:05:00 EST, Instructions Replace Required Details, Route to Pharmacy Electronically, [facility]/pharmacy#[id number], Partial fill upon patient request if the pre... Start Date: 09/16/22 Status: Ordered Lipitor 40 mg oral tablet 1 tablet = 40 mg, By Mouth, Daily at bedtime, # 90 tablet, 3 Refills, Maintenance, 12/02/22 13:45:00 EDT, Tablet, [id number], Partial fill upon patient request if the prescription is for a schedule II opioid drug., 73.8, kg, 08/31/22 15:22:00... Start Date: 12/02/22 Status: Ordered methadone 10 mg/5 mL oral solution = 50 mg, By Mouth, Daily, oral solution; goes to [facility], 0 Refills, Maintenance, 08/31/22 16:53:00 [...] Status: Ordered predniSONE 20 mg oral tablet 2 tablet = 40 mg, By Mouth, Daily, # 10 tablet, 0 Refills, Maintenance, 01/17/23 9:00:00 EDT, Tablet, [facility]/pharmacy #[id number], Partial fill upon patient request if the prescription is for a schedule II opioid drug., 73.8, kg, 08/31/22 15:22:00 EST, Dry Weight Start Date: 01/17/23 Stop Date: 01/22/23 Status: Ordered Spiriva = 18 mcg, Inhalation, [...] to Pharmacy Electronically, [facility]/pharmacy #[id number], [facility] : note dose decrease please cance... Start Date: 12/28/22 Status: Ordered Results Radiology Reports * Exam Date Time Procedure Performing Provider Status 01/16/23 7:53 AM Chest Portable Aida Ramirez; Aut h (Verified) Notes: (Chest Portable) Reason For Exam: Shortness of Breath RESULT: Chest Portable Chest Portable performed upright at 7:45 AM Hx of Present Illness: diff breathing, fire placed pt on NRB, ems trialed RA, dropped to 80s, got neb, came back up, hx COPD, lung sounds diminished; Reason: Shortness of Breath; Clinical Question(s): CHF COMPARISON: Chest x-ray dated 08/31/2022 FINDINGS: LINES AND TUBES: None. LUNGS AND PLEURA: Linear atelectasis versus scarring in the right mid to lower lung. Coarse interstitial lung markings with improvement in previously seen reticular opacities as compared to prior examination. No definite vascular congestion. No pleural effusion. No pneumothorax. HEART, MEDIASTINUM AND HAO: Heart is normal in size. Normal mediastinal and hilar contour. BONES AND SOFT TISSUES: No acute abnormality. IMPRESSION: Coarse interstitial lung markings and areas of linear atelectasis or scarring in the right mid to lower lung. No definite vascular congestion. WSN: [id number] Ordering Physician: Nataliia Murillo Dictated By: Mirela Johnson MD Dictated Date/Time: 01/16/23 8:01 am Reviewed By: Mirela Johnson MD Signed By: Mirela Johnson MD Signed Date/Time: 01/16/23 8:01 am Transcribed By: TRU Transcribed Date/Time: 01/16/23 8:00 am Vital Signs Most recent to oldest [Reference Range]: 1 2 3 Oxygen Saturation [94-100 %] 89 % *L* (01/16/23 12:19 PM) 94 % (01/16/23 11:43 AM) 90 % *L* (01/16/23 9:59 AM) Pulse Rate [55-90 bpm] 66 bpm (01/16/23 12:19 PM) 70 bpm (01/16/23 11:43 AM) 72 bpm (01/16/23 9:59 AM) Blood Pressure [90-138/55-84 mm Hg] 109/75mm Hg (01/16/23 12:19 PM) 103/62mm Hg (01/16/23 11:43 AM) 109/76mm Hg (01/16/23 9:59 AM) Respiratory Rate [16-30 br/min] 14 br/min *L* (01/16/23 11:43 AM) 16 br/min (01/16/23 9:59 AM) 14 br/min *L* (01/16/23 7:34 AM) Temperature [96.8-100.4 DegF] 97.7 DegF (01/16/23 12:19 PM) 98 DegF (01/16/23 9:59 AM) 97.9 DegF (01/16/23 7:16 AM) Liters per Minute 2 L/min (01/16/23 7:34 AM) 3 L/min (01/16/23 7:16 AM) Mode of Delivery (Oxygen) Room air (01/16/23 12:19 PM) Room air (01/16/23 11:43 AM) Room air (01/16/23 9:59 AM) Blood pressure sites Arm, right (01/16/23 12:19 PM) Arm, right (01/16/23 11:43 AM) Arm, right (01/16/23 9:59 AM) Temperature Route Oral (01/16/23 12:19 PM) Oral (01/16/23 9:59 AM) Oral (01/16/23 7:16 AM) Social History Social History Type Response Smoking Status 5-9 cigarettes (betw een 1/4 to 1/2 pack)/day in last 30 days entered on: 09/10/21 Sex Note * Nataliia Murillo MD: PERFORM, SIGN, VERIFY Event Display: Patient Education Handout Authored Date: [id number] * Nataliia Murillo MD: PERFORM Event Display: Patient Education Leaflets Authored Date: [id number] COPD Flare ?? [id number] Brote de EPOC Nash tenido un brote de EPOC. La EPOC (enfermedad pulmonar obstructiva cr??kamala) es brett enfermedad com??n de los pulmones. Hace que las v??as respiratorias se irriten y se estrechen. Por eso, le resulta m??s dif??cil respirar. Elenfisema y la bronquitis cr??kamala son dos tipos de EPOC. Esta es brett afecci??n de anthony plazo (cr??kamala). [place] significa que siempre la tendr??. En ocasiones, puede empeorar. Cuando esto sucede, se llama brote. S??ntomas de la EPOC Las personas que tienen EPOC pueden tener s??ntomas irvin todo el tiempo. Cuando tienen un brote, los s??ntomas empeoran. Los siguientes s??ntomas pueden significar que tiene un brote: ??? Falta de aire; respiraci??n r??pida o superficial, o sibilancias que empeoran ??? Infecci??n pulmonar ??? Tos que empeora ??? M??s mucosidad (o esputo), mucosidad m??s espesa o de diferente color ??? Cansancio, falta de energ??a o dificultad para continuar con cristel actividades normales ??? Fiebre ??? Opresi??n en el pecho ??? Cristel s??ntomas no mejoran, ni siquiera cuando usa el nebulizador, los inhaladores o cristel medicamentos habituales ??? Dificultad para hablar ??? Se siente confundido ?Por qu?? se produce un brote? Lamentablemente, puede tener brotes aun cuando haya hecho todo malcolm y seguido las instrucciones delproveedor de atenci??n m??dica. Los siguientes son algunos de los motivos por los que se producen los brotes: ??? Clima fr??o ??? Fumar o el tabaquismo pasivo ??? Usar cigarrillos electr??nicos o productos de vapeo ??? Resfriados, gripe o infecciones respiratorias ??? Contaminaci??n atmosf??marco a ??? Cambio repentino del clima ??? [place]vo, vapores, gases, sustancias qu??micas irritantes o emanaciones savage ??? No tristan cristel medicamentos barry aracely le indicaron ??? Contaminaci??n en interiores, comola quema de mitchell, el humo de la cocina o los combustibles de calefacci??n ?? Cuidados en el hogar Estas son algunas cosas que puede hacer en awad casa para tratar un brote: ??? Mantenga la calma e intente no desesperarse. Eso romie?? que le resulte m??s dif??cil respirar e impedir?? que rasheeda lo correcto. ??? No fume ni est?? cerca de otras personas que est??n fumando. Si fuma, deje de hacerlo. El tabaquismo es la causa principal de la EPOC. Dejar de fumar lo ayudar?? a controlar mejor la EPOC. Nouse cigarrillos electr??nicos ni productos de vapeo. Pregunte a awad proveedor de atenci??n m??dica qu?? medidas pueden ayudarlo a dejar de fumar. ??? Antes de beber m??s l??quidos para ablandar la mucosidad nely un brote, hable mathew con awad proveedor de atenci??n m??dica. ??? Lleve brett alimentaci??n alexander y equilibrada. Es importante para mantenerse lo m??s saludable posible. Al igual que intentar mantener awad peso ideal. El sobrepeso o el peso insuficiente pueden afectar awad tala. Aseg??resede consumir muchas frutas y verduras frescas todos los d??as. Tambi??n coma con equilibrio granos integrales, mor magras y pescado, as?? aracely productos l??cteos con poca grasa. ??? Use los inhaladores y el nebulizador (si tiene fred), barry aracely le hayan indicado. Cuando use un inhalador o nebulizador con dosificador, es muy importante que siga las t??cnicas adecuadas. Si tiene preguntas sobre c??mo usar el dispositivo, comun??quese con awad proveedor de atenci??n m??dica o consulte el manual de u suario del aparato. ??? Si le recetaron antibi??ticos, t??melos hasta que se terminen o hasta que awad proveedor le indique que se detenga. Es importante que termine los antibi??ticos, incluso cuando se sienta mejor. Eso asegurar?? que la infecci??n desaparezca. ??? Si le dieron un esteroide, term??ulices aunque se sienta mejor. ??? Aprenda los nombres de cristel medicamentos, y cu??ndo y c??mo administrarlos. Hable con awad proveedor sobre otras afecciones que tenga y awad tratamiento y c??mo pueden afectar a la EPOC. ??? Es posible que le receten ox??rebeca si las pruebas indican que tiene muy poco ox??rebeca en la grace. Consulte con awad proveedor acerca de la terapia de ox??rebeca a anthony plazo. ??? Algunas recomendaciones para hacer frente a la falta de aire incluyen las siguientes: o Ejercicio. Intente realizar tanta actividad f??maría aracely pueda. [place] mejorar?? los niveles de energ??a y fortalecer?? los m??sculos, de modo que podr?? hacer m??s. o T??cnicas de respiraci??n. Pida a awad proveedor de atenci??n m??dica o a un enfermero que le muestren c??mo hacer la respiraci??n diafragm??fartun (con los labios fruncidos). o Equilibre el descanso y la actividad. Todos los d??as, intente equilibrar los per??odos de descanso y de actividad. Por ejemplo, puede empezar el d??a visti??ndose y tomando eldesayuno. Luego, puede relajarse y leer el diario. Despu??s, puede hacer brett caminata corta. Luego si??ntese un rato con los pies levantados. o Rehabilitaci??n pulmonar. Los programas comunitarios y en el [facility] ??tiles aracely los programas en hospitales, siempre que tengan la misma frecuenciae intensidad. Los programas est??ndares de rehabilitaci??n pulmonar en el [facility] ayudan a las personas con EPOC con la falta de aire. La rehabilitaci??n pulmonar tradicional supervisada sigue siendo la mejor opci??n para las personas con EPOC. Estos programas lo ayudan a manejar la enfermedad, le ense??an t??cnicas de respiraci??n y ejercicios y le may apoyo y asesoramiento. Pregunte a awad proveedor d??nde puede encontrar fred de estos programas o llame al hospital local. Pregunte a awad proveedor de atenci??n m??dica qu?? programa de rehabilitaci??n o de manejo personal es mejor para usted. ?? C??mo prevenir un brote Los brotes ocurren. Augustine la mejor manera de tratarlos es evitar que comience. Aqu?? tiene algunos consejos: ??? No fume ni est?? cerca de otras personas que est??n fumando. Evite usar cigarrillos electr??nicos por cristel efectos secundarios da??inos. ??? [place] los medicamentos aracely se lo indique awad proveedor de atenci??n m??dica. ??? Hable con el proveedor sobre aplicarse la vacuna contra la gripe todos los a??os. Tambi??n pregunte si necesita brett vacuna contra la neumon??a. ??? Si hay advertencia de mal clima, intente quedarse adentro en lo posible. ??? Intente comer de manera saludable, hacer ejercicio y dormir mucho. ??? Trate de alejarse de las cosas que normalmente le provocan brotes. Por ejemplo, el polvo, los vapores qu??micos, el espray para el krysten o los perfumes savage. ?? Visita de seguimiento Asista a las citas de seguimiento con awad proveedor de atenci??n m??dica seg??n le hayan indicado. Si le hicieron un cultivo, le dir??n si es necesario cambiarle el tratamiento. Puede llamar seg??n le indiquen para conocer los resultados. Si le hicieron radiograf??as, le informar??n los nuevos resultados que puedan afectar awad atenci??n m??dica. En cada visita m??dica, hable con awad proveedor de atenci??n m??dica sobre awad capacidad para hacer lo siguiente: ??? Hacer frente a awad entorno habitual ??? Usar correctamente el inhalador (o los sistemas de administraci??n del medicamento) ??? Hacer frente a otras afecciones que tenga y cristel tratamientos, as?? aracely la manera en que estas afectan a la EPOC ?? Cu??ndo llamar al?? 911 Llame al?? 911 si ocurre algo de lo siguiente: ??? Sibilancias o falta de aire que no mejoran con los medicamentos ??? Opresi??n o dolor en el pecho ??? Sensaci??n de mareos o aturdimiento ??? Tiene dificultades para respirar ??? Se siente confundido o es dif??cil despertarlo ??? Se desmaya o pierde el conocimiento ??? Tiene frecuencia card??gerardo r??pida ??? Dolor en el pecho, el brazo, el hombro,el chandra o la parte superior de la espalda; ?? Cu??ndo buscar atenci??n m??dica Llame enseguida a awad proveedor de atenci??n m??dica si se presenta cualquiera de las siguientes situaciones: ??? Fiebre de 100.4?F (38?C) o superior, o seg??n le haya indicado awad proveedor de atenci??n m??dica ??? Al toser, despide emery mucosidad de color oscuro o con grace ??? No empieza asentirse mejor dentro de las siguientes 24??horas o aparecen s??ntomas nuevos ??? La hinchaz??n en los tobillos empeora ??? Debilidad ?? Last Reviewed Date: 2021 ?? [id number] [employer]. Todos los derechos reservados. Esta informaci??n no pretende sustituir la atenci??n m??dica profesional. S??lo awad m??dico puede diagnosticar y tratar un problema de tala. ?? Portable XR Chest Views * [facility] , CIS S: TRANSCRICRISTINA Johnson MD, Mirela M: VERIFY Event Display: Result: Authored Date: [id number] Chest Portable performed upright at 7:45 AM Hx of Present Illness: diff breathing, fire placed pt on NRB, ems trialed RA, dropped to 80s, got neb, came back up, hx COPD, lung sounds diminished; Reason: Shortness of Breath; Clinical Question(s): CHF COMPARISON: Chest x-ray dated 08/31/2022 FINDINGS: LINES AND TUBES: None. LUNGS AND PLEURA: Linear atelectasis versus scarring in the right mid to lower lung. Coarse interstitial lung markings with improvement in previously seen reticular opacities as compared to prior examination. No definite vascular congestion. No pleural effusion. No pneumothorax. HEART, MEDIASTINUM AND HAO: Heart is normal in size. Normal mediastinal and hilar contour. BONES AND SOFT TISSUES: No acute abnormality. IMPRESSION: Coarse interstitial lung markings and areas of linear atelectasis or scarring in the right mid to lower lung. No definite vascular congestion. WSN: [id number] Ordering Physician: Nataliia Murillo Dictated By: Mirela Johnson MD Dictated Date/Time: 01/16/23 8:01 am Reviewed By: Mirela Johnson MD Signed By: Mirela Johnson MD Signed Date/Time: 01/16/23 8:01 am Transcribed By: TRU Transcribed Date/Time: 01/16/23 8:00 am Patient Care team information Care Team Personnel Name: Ruy Mack DO Position: [facility] Renal MD Member Role: Lifetime Consulting Physician Address: Address: [address] [place], [place] [address] [place] [place] [address] Name: Joan Reilly MD Position: [facility] Physician - Infectious Disease Member Role: Lifetime Consulting Physician Address: Address: [address] [place] [address] [place] [address]- Name: Dora Ho Position: [facility] Outreach Member Role: Lifetime Consulting Physician Name: Lisa Cotto RN Position: [facility] RN Member Role: Primary Care Nurse Name: Loreta Bhagat MD Position: Reference Physician Member Role: PCP Address: Address: [address] [place] [id number]- Name: Tonny Vivar MD Position: [facility] ED Medicine MD Member Role: Admitting Physician Address: Address: [address] [place] [address] [place] [address]- Name: Junior Noriega RN Position: [facility] ED RN W/OE and Tasks Member Role: Patient Care Provider Name: Bety Urena Position: [facility] ED TA [facility] Member Role: Security Risk Analyst Name: Nataliia Murillo MD Position: [facility] Resident Member Role: ED Resident Address: Address: [address] [place] [address] [place] [address]- Care Team Related Persons Name: KINGSTON BABBTER Address: home [address] [address]
--- OUTSIDE RECORDS SUMMARY | 2024-03-29 08:04 | XMS_ITS | Continuity of Care Document ---
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 Role Phone Loreta Bhagat MD Primary Care Physician Encounter [facility] [place] Date(s): 09/06/23 - 11/11/23 [facility] [address] [place] [id number]- Attending Physician: Erna Maldonado MD Admitting Physician: Erna Maldonado MD Referring Physician: Loreta Bhagat MD Allergies, Adverse Reactions, Alerts No Known Allergies Immunizations Given and Recorded Vaccine Date Status Refusal Reason tetanus-diphtheria toxoids (Td) 11/11/22 Given tetanus/diphtheria/pertussis, acel(Tdap) 10/13/22 Recorded tetanus/diphtheria/pertussis, acel(Tdap) 12/08/12 Recorded tetanus/diphtheria/pertussis, acel(Tdap) 12/07/12 Recorded [id number] 12y+ bivalent booster vax 08/25/22 Recorded zoster vaccine, inactivated 1 05/20/22 Given zoster vaccine, inactivated 2 01/21/22 Given SARS-CoV-2 mRNA ([id number]) vax 12/10/21 Recorded pneumococcal 23-valent vaccine 09/10/21 [...] Maintenance, 04/04/20 13:14:00 EDT,Route to Pharmacy Electronically, [facility], 173, cm, 04/04/20 8:30:00 EDT, Height, 60, kg, 03/28/20 16:33:00 EDT, Dry Weight Start Date: 04/04/20 Status: Ordered atorvastatin 40 mg oral tablet 1 tablet = 40 mg, By Mouth, Daily at bedtime, # 30 tablet, 0 Refills, Maintenance, 04/04/20 13:14:00 EDT, Tablet, [facility], 173, cm, 04/04/20 8:30:00 EDT, Height, 60, kg, 03/28/20 16:33:00 EDT, Dry Weight Start Date: 04/04/20 Status: Ordered Biktarvy oral tablet See Instructions, [facility], # 30 tablet, 5 Refills, Maintenance, 07/05/23 16:31:00 EST, [id number], 30, TOME [facility]ANC[facility] [place], 172.7, cm, 04/05/23 10:37:00 EDT, Height, 69, kg, 01/21/23 18:18:00 EDT, Dry Weight Start Date: 07/05/23 Status: Ordered carvedilol 6.25 mg oral tablet See Instructions, 1 tablet By Mouth 2 times a day, # 60 tablet, Refills 2, Tot. Refills 2, Maintenance, 10/14/22 13:17:00 EST, Instructions Replace Required Details, Route to Pharmacy Electronically,[facility]/pharmacy #[id number], Partial fill upon patient reque... Start Date: 10/14/22 Status: Ordered Coreg 6.25 mg oral tablet 6.25 mg, 1, tablet, By Mouth, 2 times a day, # 60 tablet, Refills 0, Tot. Refills 0, Maintenance, 04/04/20 13:14:00 EDT, Route to Pharmacy Electronically, [facility], 173, cm, 04/04/20 8:30:00 EDT, Height, 60, kg, 03/28/20 16:33:00 EDT,... Start Date: 04/04/20 Status: Ordered Entresto 49 mg-51 mg oral tablet See Instructions, 1 tablet By Mouth 2 times a day. note dose increase, # 30 tablet, 11 Refills, Maintenance, 04/05/23 10:51:00 EDT, [facility]/pharmacy #[id number], Partial fill upon patient request if the prescription is for a schedule II opioid drug., 1 tablet B... Start Date: 04/05/23 Status: Ordered Farxiga 10 mg oral tablet See Instructions, take 1 tablet By Mouth Daily., # 30 tablet, 2 Refills, Maintenance, 10/14/22 13:22:00 EST, [facility]/pharmacy #[id number], new start farxiga, 73.8, kg, 08/31/22 15:22:00 EST, Dry Weight Start Date: 10/14/22 Status: Ordered fluticasone 50 mcg/inh nasal spray PUMP 2 SPRAYS INTO EACH NOSTRIL TWICE DAILY FOR 1 WEEK THEN ONCE DAILY NEEDED Start Date: 04/04/20 Status: Ordered fluticasone 50 mcg/inh nasal spray 1 sprays, Nares, Both, Daily in AM, 0 Refills, Maintenance, 02/06/23 9:55:00 EDT, [facility], Partial fill upon patient request if the [...] 08/18/23 10:10:00 EST, Route to Pharmacy Electronically, [facility]/pharmacy #[id number], [facility] : note dose decrease please cance... [...] Team Personnel Name: Marilee Rodas RN Position: [facility] RN Member Role: Primary Care Nurse Name: Ivone Galicia RN Position: [facility] RN Member Role: Primary Care Nurse Name: Marilee Chaudhry RN Position: [facility] SN RN Member Role: Primary Care Nurse Name: Nataliia Pulido RN Position: [facility] RN Supv Member Role: Primary Care Nurse Name: Rajani Anderson Position: [facility] RN Member Role: Primary Care Nurse Name: Ivone Herrera RN Position: [facility] RN Member Role: Primary Care Nurse Name: Helena Sutton RN Position: [facility] RN Member Role: Primary Care Nurse Name: Ruy Mack DO Position: [facility] Renal MD Member Role: Lifetime Consulting Physician Address: Address: [address] [place], [place] [address] [place] [place] [address]- Name: Joan Reilly MD Position: [facility] Physician - Infectious Disease Member Role: Lifetime Consulting Physician Address: Address: [address] [place] [address] [place] [address]- Name: Dora Ho Position: [facility] Outreach Member Role: Lifetime Consulting Physician Name: Heike Smalls RN Position: [facility] RN Member Role: Primary Care Nurse Name: Lisa Cotto RN Position: [facility] RN Member Role: Primary Care Nurse Name: Loreta Bhagat MD Position: Reference Physician Member Role: PCP Address: Address: [address] [facility] [place] [address]- Care Team Related Persons Name: AMADATinYONATHAN Address: home [address] [place] [address]
--- OUTSIDE RECORDS SUMMARY | 2024-03-29 08:04 | XMS_ITS | Continuity of Care Document ---
Author Organization [facility] Address [address] [place] [address]- Care Team Providers Care Financial Quantitative Analyst Name Role Phone Leola ROSS, [facility] Primary Care Physician [place] [facility] [place]04/23 [facility] [address] [place] [id number] Allergies, Adverse Reactions, Alerts No Known Allergies Immunizations Given and Recorded Vaccine Date Status Refusal Reason tetanus-diphtheria toxoids (Td) 11/11/22 Given [id number] 12y+ bivalent booster vax 08/25/22 Recorded zoster vaccine, inactivated 1 05/20/22 Given zoster vaccine, inactivated 2 01/21/22 Given SARS-CoV-2 mRNA ([id number]) vax 12/10/21 Recorded pneumococcal 23-valent vaccine 09/10/21 [...] Maintenance, 04/04/20 13:14:00 EDT,Route to Pharmacy Electronically, [facility], 173, cm, 04/04/20 8:30:00 EDT, Height, 60, kg, 03/28/20 16:33:00 EDT, Dry Weight Start Date: 04/04/20 Status: Ordered atorvastatin 40 mg oral tablet 1 tablet = 40 mg, By Mouth, Daily at bedtime, # 30 tablet, 0 Refills, Maintenance, 04/04/20 13:14:00 EDT, Tablet, [facility], 173, cm, 04/04/20 8:30:00 EDT, Height, 60, kg, 03/28/20 16:33:00 EDT, Dry Weight Start Date: 04/04/20 Status: Ordered Biktarvy oral tablet See Instructions, [facility] [place] [facility], # 30 tablet, 5 Refills, Maintenance, 07/05/23 16:31:00 EST, [id number], 30, [facility] [place], 172.7, cm, 04/05/23 10:37:00 EDT, Height, 69, kg, 01/21/23 18:18:00 EDT, Dry Weight Start Date: 07/05/23 Status: Ordered carvedilol 6.25 mg oral tablet See Instructions, 1 tablet By Mouth 2 times a day, # 60 tablet, Refills 2, Tot. Refills 2, Maintenance, 10/14/22 13:17:00 EST, Instructions Replace Required Details, Route to Pharmacy Electronically,[facility]/pharmacy #[id number], Partial fill upon patient reque... Start Date: 10/14/22 Status: Ordered Coreg 6.25 mg oral tablet 6.25 mg, 1, tablet, By Mouth, 2 times a day, # 60 tablet, Refills 0, Tot. Refills 0, Maintenance, 04/04/20 13:14:00 EDT, Route to Pharmacy Electronically, [facility], 173, cm, 04/04/20 8:30:00 EDT, Height, 60, kg, 03/28/20 16:33:00 EDT,... Start Date: 04/04/20 Status: Ordered Entresto 49 mg-51 mg oral tablet See Instructions, 1 tablet By Mouth 2 times a day. note dose increase, # 30 tablet, 11 Refills, Maintenance, 04/05/23 10:51:00 EDT, [facility]/pharmacy #[id number], Partial fill upon patient request if the prescription is for a schedule II opioid drug., 1 tablet B... Start Date: 04/05/23 Status: Ordered Farxiga 10 mg oral tablet See Instructions, take 1 tablet By Mouth Daily., # 30 tablet, 2 Refills, Maintenance, 10/14/22 13:22:00 EST, [facility]/pharmacy #[id number], new start farxiga, 73.8, kg, 08/31/22 15:22:00 EST, Dry Weight Start Date: 10/14/22 Status: Ordered fluticasone 50 mcg/inh nasal spray PUMP 2 SPRAYS INTO EACH NOSTRIL TWICE DAILY FOR 1 WEEK THEN ONCE DAILY NEEDED Start Date: 04/04/20 Status: Ordered fluticasone 50 mcg/inh nasal spray 1 sprays, Nares, Both, Daily in AM, 0 Refills, Maintenance, 02/06/23 9:55:00 EDT, [facility], Partial fill upon patient request if the [...] By Mouth, Daily, oral solution; goes to [facility], 0 Refills, Maintenance, 08/31/22 16:53:00 EST, [...] 12/28/22 12:31:00 EDT, Route to Pharmacy Electronically, [facility]/pharmacy #[id number], [facility] : note dose decrease [...] Team Personnel Name: Trixie Dorantes RN Position: [facility] RN Member Role: Primary Care Nurse Name: Marilee Rodas RN Position: [facility] RN Member Role: Primary Care Nurse Name: Ivone Galicia RN Position: [facility] RN Member Role: Primary Care Nurse Name: Marilee Chaudhry RN Position: [facility] SN RN Member Role: Primary Care Nurse Name: Nataliia Pulido RN Position: [facility] RN Supv Member Role: Primary Care Nurse Name: Rajani Anderson Position: [facility] RN Member Role: Primary Care Nurse Name: Jenny Echols RN Position: [facility] RN Member Role: Primary Care Nurse Name: Ivone Herrera RN Position: [facility] RN Member Role: Primary Care Nurse Name: Helena Sutton RN Position: [facility] RN Member Role: Primary Care Nurse Name: Ruy Mack DO Position: [facility] Renal MD Member Role: Lifetime Consulting Physician Address: Address: [address] [place], [place] [address] [place] [place] [address] Name: Joan Reilly MD Position: [facility] Physician - Infectious Disease Member Role: Lifetime Consulting Physician Address: Address: [address] [place] [address] [place] [address]- Name: Dora Ho Position: [facility] Outreach Member Role: Lifetime Consulting Physician Name: Estefany Russell RN Position: [facility] RN Member Role: Primary Care Nurse Name: Heike Smalls RN Position: [facility] RN Member Role: Primary Care Nurse Name: Ning Isidro RN Position: [facility] RN Member Role: Primary Care Nurse Name: Lisa Cotto RN Position: [facility] RN Member Role: Primary Care Nurse Name: Loreta Bhagat MD Position: Reference Physician Member Role: PCP Address: Address: [address] [place] [address]- Care Team Related Persons Name: YONATHAN BABB Address: home [address] [address]
--- OUTSIDE RECORDS SUMMARY | 2024-03-29 08:04 | XMS_ITS | Continuity of Care Document ---
Author Organization [facility] Address [address] [place] [address]- Care Team Providers Care Permit Agent Name Role Phone Kaya Lubna KIM Maryjo Primary Care Jessica pfeiffer [place] [facility] [place](s): 01/21/22 - 02/20/22 [facility] [address] [place], [place] [address] Attending Physician: AdmRenny zuluaga Admitting Physician: Admtr, Ar8 Referring Physician: Admtr, Ar8 Allergies, Adverse Reactions, Alerts No Known Allergies Immunizations Given and Recorded Vaccine Date Status Refusal Reason zoster vaccine, inactivated 1 01/21/22 Given SARS-CoV-2 mRNA ([id number]) vax 12/10/21 Recorded pneumococcal 23-valent vaccine 09/10/21 Given influenza virus vaccine, inactivated 08/06/21 Devin rded influenza virus vaccine, inactivated 06/14/19 Give n SARS-CoV-2 (COVID-19) mRNA-1273 vaccine 08/06/21 R ecorded SARS-CoV-2 (COVID-19) mRNA-1273 vaccine 01/10/21 R ecorded SARS-CoV-2 (COVID-19) mRNA-1273 vaccine 12/04/20 R ecorded tetanus/diphtheria/pertussis, acel(Tdap) 12/07/12 Recorded pneumococcal 13-valent vaccine 12/07/12 Recorded 1Result Comment: Shingrix dose#1 Medications Albuterol (Eqv-ProAir HFA) Inhalation, Every 6 hours, 0 Refills, Maintenance, 01/21/22 11:49:00 EDT, Partial fill upon patientrequest if the prescription is for a schedule II opioid drug. Start Date: 01/21/22 Status: Ordered Biktarvy oral tablet 1 tablet, By Mouth, Daily, # 30 tablet, 5 Refills, Maintenance, 10/27/21 12:06:00 EDT, [facility]/pharmacy#[id number], 1 tablet By Mouth Daily Start Date: 10/27/21 Status: Ordered Biktarvy oral tablet 1 tablet, By Mouth, Daily, # 30 tablet, 5 Refills, Maintenance, 10/09/20 10:08:00 EST, [facility]/pharmacy#[id number], 1 tablet By Mouth Daily,x30 days Start Date: 10/09/20 Stop Date: 04/07/21 Status: Ordered montelukast 4 mg oral granule 1 each = 4 mg, By Mouth, Daily, # 30 each, 0 Refills, Maintenance, 01/21/22 11:49:00 EDT, [facility], Partial fill upon patient request if the prescription is for a schedule II opioid drug. Start Date: 01/21/22 Status: Ordered Social History Social History Type Response Smoking Status 5-9 cigarettes (betw een 1/4 to 1/2 pack)/day in last 30 days entered on: 09/10/21 Sex
--- OUTSIDE RECORDS SUMMARY | 2024-03-29 08:04 | XMS_ITS | Continuity of Care Document ---
Author Organization [facility] ter Address [address] [place] [id number] Care Team Providers Care Director Of Psychology Name Role Phone Leola ROSS, Loreta Primary Care Physician [phone] Encounter [facility] Date(s): 08/31/22 - 09/04/[address] [address] Discharge Disposition: A-D/C Home Attending Physician: Ankush Castellon MD Admitting Physician: Donald Bhardwaj MD, Parag Cortes Referring Physician: Not on Staff, Referring MD Allergies, Adverse Reactions, Alerts No Known Allergies Immunizations Given and Recorded Vaccine Date Status Refusal Reason [id number] 12y+ bivalent booster vax 08/25/22 Recorded zoster vaccine, inactivated 1 05/20/22 Given zoster vaccine, inactivated 2 01/21/22 Given SARS-CoV-2 mRNA ([id number]) vax 12/10/21 Recorded pneumococcal 23-valent vaccine 09/10/21 [...] tablet, Refills 0, Tot. Refills 0, Maintenance, 09/04/22 14:29:00 EST,Route to Pharmacy Electronically, [facility]pharm[facility] #[id number], Partial fill upon patient request if the prescription is for a schedule II opioid drug., 73.8, kg... Start Date: 09/04/22 Status: Ordered Biktarvy oral tablet See Instructions, EMILE FRANCIS TABLETA TODOS [place], # 30 tablet, 5 Refills, Maintenance, 05/15/22 12:48:00 EDT, [id number], 30, TOME FRANCIS TABLETA TODOS [place] Start Date: 05/15/22 Status: Ordered Coreg 6.25 mg oral tablet 6.25 mg, Tablet, By Mouth, 09/04/22 9:00:00 EST Start Date: 09/04/22 Stop Date: 09/04/22 Status: Completed Coreg 6.25 mg oral tablet 6.25 mg, 1, tablet, By Mouth, 2 times a day, # 60 tablet, Refills 0, Tot. Refills 0, Maintenance, 09/04/22 14:29:00 EST, Route to Pharmacy Electronically, [facility]/pharmacy #[id number], Partial fill upon patient request if the prescription is for a schedule II o... Start Date: 09/04/22 Status: Ordered Lipitor 40 mg oral tablet 1 tablet = 40 mg, By Mouth, Daily at bedtime, # 30 tablet, 0 Refills, Maintenance, 09/04/22 14:29:00 EST, Tablet, [facility]/pharmacy #[id number], Partial fill upon patient request if the prescription is for a schedule II opioid drug., 73.8, kg, 08/31/22 15:22:00... Start Date: 09/04/22 Status: Ordered methadone 10 mg/5 mL oral solution = 50 mg, By Mouth, Daily, oral solution; goes to [facility], 0 Refills, Maintenance, 08/31/22 16:53:00 EST, Partial fill upon patient request if the prescription is for a schedule II opioid drug. Start Date: 08/31/22 Status: Ordered Methadone Tablet 50 mg, Tablet, By Mouth, 09/04/22 9:00:00 EST Start Date: 09/04/22 Stop Date: 09/04/22 Status: Completed montelukast 4 mg oral granule 1 each = 4 mg, By Mouth, Daily, # 30 each, 0 Refills, Maintenance, 01/21/22 11:49:00 EDT, Granule, Partial fill upon patient request if the prescription is for a schedule II opioid drug. Start Date: 01/21/22 Status: Ordered predniSONE 20 mg oral tablet 2 tablet = 40 mg, By Mouth, Daily in AM, # 2 tablet, 0 Refills, Acute 09/06/22 0:00:00 EST, 09/04/22 14:29:00 EST, Tablet, [facility]/pharm[facility] #[id number], Partial fill upon patient request if the prescription isfor a schedule II opioid drug., 73.8, kg, 08/31/22... Start Date: 09/04/22 Stop Date: 09/06/22 Status: Ordered Spiriva = 18 mcg, Inhalation, Daily, 0 Refills, Maintenance, 05/20/22 10:53:00 EDT, Partial fill upon patient request if the prescription is for a schedule II opioid drug. Start Date: 05/20/22 Status: Ordered Results Orders for Microbiology Reports Name Date Blood Culture 08/31/22 Blood Culture #2 08/31/22 Microbiology Reports TEST:Blood Culture, Second Order STATUS:Unauthenticated BODY SITE: SOURCE:Blood COLLECTED DATE/TIME:08/31/22 9:16 AM Blood Culture, Second Order SPECIMEN DESCRIPTION : BLOOD NOSITE SPECIAL REQUESTS : NONE CULTURE : NO GROWTH 4 DAYS REPORT STATUS : PRELIMINARY REPORT TEST:Blood Culture STATUS:Unauthenticated BODY SITE: SOURCE:Blood COLLECTED DATE/TIME:08/31/22 7:22 AM Blood Culture SPECIMEN DESCRIPTION : BLOOD NO SITE SPECIAL REQUESTS : NONE CULTURE : NO GROWTH 4 DAYS REPORT STATUS : PRELIMINARY REPORT Radiology Reports * Exam Date Time Procedure Performing Provider Status 08/31/22 7:37 AM Chest Portable Laure Blanchard; Auth (Verified) Notes: (Chest Portable) Reason For Exam: Shortness of Breath RESULT: Chest Portable Examination: Portable chest performed on 08/31/2022. History: Shortness of breath. Findings: A frontal view of the chest is submitted without comparison. The cardiac silhouette is within normal limits for size. The lungs are hyperinflated. Reticular increased interstitial lung markings are noted bilaterally. There is a trace right pleural effusion. Leftward curvature within the spine could be positional. IMPRESSION: Increased reticular interstitial lung markings which may be secondary to pulmonary edema. Trace right pleural effusion. WSN: [id number] Ordering Physician: Lanre Garcia Dictated By: Sharon Luna MD Dictated Date/Time: 08/31/22 8:31 am Reviewed By: Sharon Luna MD Signed By: Sharon Luna MD Signed Date/Time: 08/31/22 8:31 am Transcribed By: TRU Transcribed Date/Time: 08/31/22 8:30 am Vital Signs Most recent to oldest [Reference Range]: 1 2 3 Weight 73.8 kg (08/31/22 3:22 PM) 73.8 kg (08/31/22 2:00 PM) 75 kg (08/31/22 12:53 PM) Oxygen Saturation [94-100 %] 92 % *L* (09/04/22 12:44 PM) 97 % (09/04/22 7:40 AM) 95 % (09/03/22 8:37 PM) Pulse Rate [55-90 bpm] 70 bpm (09/04/22 12:44 PM) 66 bpm (09/04/22 9:29 AM) 66 bpm (09/04/22 7:40 AM) Blood Pressure [90-138/55-84 mm Hg] 140/83mm Hg *H* (09/04/22 12:44 PM) 115/70mm Hg (09/04/22 9:29 AM) 115/70mm Hg (09/04/22 7:40 AM) Respiratory Rate [16-30 br/min] 18 br/min (09/04/22 12:44 PM) 18 br/min (09/04/22 10:29 AM) 18 br/min (09/04/22 9:29 AM) Temperature [96.8-100.4 DegF] 97.7 DegF (09/04/22 12:44 PM) 97.6 DegF (09/04/22 7:40 AM) 98.2 DegF (09/03/22 8:37 PM) Liters per Minute 1 L/min (09/01/22 8:00 AM) 1 L/min (09/01/22 4:00 AM) 1 L/min (09/01/22 12:00 AM) Mode of Delivery (Oxygen) Room air (09/04/22 12:44 PM) Room air (09/04/22 7:40 AM) Room air (09/03/22 8:37 PM) Blood pressure sites Arm, right (09/04/22 12:44 PM) Arm, right (09/04/22 7:40 AM) Arm, right (09/03/22 8:37 PM) Temperature Route Oral (09/04/22 12:44 PM) Oral (09/04/22 7:40 AM) Oral (09/03/22 8:37 PM) Dry Weight 73.8 kg (08/31/22 3:22 PM) 75 kg (08/31/22 12:53 PM) Weight Obtained Via Bed scale (08/31/22 3:22 PM) Bed scale (08/31/22 2:00 PM) Patient/family stated (08/31/22 12:53 PM) Dry Weight Obtained Via Bed scale (08/31/22 3:22 PM) Social History Social History Type Response Smoking Status 5-9 cigarettes (betw een 1/4 to 1/2 pack)/day in last 30 days entered on: 09/10/21 Sex Admission evaluation note * Donald Bhardwaj MD, Parag Cortes: PERFORM, MODIFY, MODIFY Event Display: Admission Note Authored Date: [id number] Patient: ??YOANTHAN BABB ? Age:??61 Years?Sex:??Male?:??1960?? Chief Complaint/Reason for Consultation see level 1 sheet History of Present Illness ??62-year-old male with past medical history of HIV, Hepatitis C,??cardiomyopathy-nonischemic,??opioid dependence??on methadone, COPD, pulmonary nodules??called EMS??because of ??shortness of breath.??The morning??developed??sudden onset of shortness of breath, progressively worsening, call 911.??When EMS arrived??he was tachypneic, heart rate 133, tachycardic respiratory 28, saturating 50% on room air.?? He was placed on BiPAP??and transferred to the ER. ??Denies fever chills chest pain??palp itations. ??Not taking any cardiac medications now, because he was told to stop it.?? On methadone 50 mg daily, not using drugs now. ?? ER course : Blood pressure 100/74, heart rate-110, placed on BiPAP with 100% FiO2, hypothermic withtemperature 96.?? Chest x-ray showed increased reticular interstitial lung markings.?? Venous bloodgas showed pH of 7.09, PCO2-91.?? WBC- 14.7, hemoglobin-13.8 BUN/creatinine-19/lactate level was 7.6.?? High sensitive troponin was 56, trended up to 425.?? NT proBNP-665.?? He received Solu-Medrol 125 mg IV, Lasix 40 mg IV, ceftriaxone 1 g IV and doxycycline 100 mg IV in the ER.?? ER episode of nonsustained V. tach for 20 seconds, received amiodarone 150 mg IV and magnesium 2 g IV in the ER. ?? When I examined the patient in the ER, he is alert oriented x3, not in distress.?? Blood pressure-106/85, heart rate-99/min.?? Saturating 9800% with BiPAP FiO2-50%.?? States that the shortness of breath is better now.?? On exam bilateral scattered crackles, bilateral mild pitting pedal edema.?? Admitted for acute hypoxic respiratory failure-COPD exacerbation NSTEMI. ?? Review of Systems ??negative except as above Objective Vital Signs?? Temperature: 98.4 DegF (08/31/22 11:09:00) Temperature Route: Rectal (08/31/22 11:09:00) Pulse Rate:??93 bpm??High (08/31/22 08:42:00) Heart Rate Monitored:??92 bpm??High (08/31/22 13:06:00) Respiratory Rate: 18 br/min (08/31/22 13:30:00) Systolic Blood Pressure: 107 mm Hg (08/31/22 13:06:00) Diastolic Blood Pressure: 82 mm Hg (08/31/22 13:06:00) Pulse Pressure: 27 mm Hg (08/31/22 08:52:00) Oxygen Saturation: 98 % (08/31/22 13:30:00) Mode of Delivery (Oxygen): CPAP (08/31/22 13:06:00) FiO2: 60 % (08/31/22 13:30:00) Early Warning Score: 0 (08/31/22 13:58:36) ? Physical Exam Constitutional: Alert, in no distress. Mental Status: Oriented to person, place and time. Head: Normocephalic. Eyes: Pupils are equal, round and reactive to light. Respiratory: b/l scattered crackles+ Cardiovascular: S1 S2 regular. No murmurs, rubs or gallops. Gastrointestinal: Abdomen soft, non-tender, non-distended. Neurologic:?? Moves all extremities spontaneously. Skin: No rashes or lesions. No petechiae or purpura.?? Musculoskeletal: No cyanosis or clubbing. Assessment/Plan Diagnoses COPD exacerbation ??(J44.1) HIV (human immunodeficiency virus infection) ??(B20) Heart failure ??(I50.9) Hypoxia ??(R09.02) NSTEMI (non-ST elevated myocardial infarction) ??(I21.4) Respiratory failure ??(J96.90) ?? Assessment:? Has multiple ,??[id number], [id number] ?? 62-year-old male with past medical history of HIV,??Hepatitis C, ??cardiomyopathy-nonischemic, opioid dependence on methadone, COPD, pulmonary nodules called EMS because of sudden onset shortness of breath.??Admitted for acute hypoxic respiratory failure-COPD exacerbation and??NSTEMI. ? Acute hypoxic respiratory failure COPD exacerbation Continues to smoke 5 cigarettes/day On Symbicort, Spiriva??at home When EMS arrived, he was tachypneic, tachycardic, saturating 50% on room air. Found to have bilateral rhonchi. VBG showing??pH-7,??PCO2-80 Initially placed on BiPAP??with FiO2-90%, wean to FiO2 50% Hypothermic in the ER Lactate-7, improved to 1.3.?? Received??Solu-Medrol 125 mg IV push,??ceftriaxone and doxycycline in the ER ?? Plan: Admit to intercare continue BIPAP Monitor O2 sat Continue Solu-Medrol 125 mg IV push daily Continue ceftriaxone 1 g??daily Continue doxycycline 50 mg twice daily p.o. Procalcitonin add on. If negative will DC Abx ,Duoneb scheduled 4 times a day Breo Ellipta MDI daily Spiriva MDI daily ? Nonischemic cardiomyopathy ?Acute exacerbation??of heart failure NSTEMI Not taking cardiac medications now.??States that it was discontinued. EKG showing sinus tachycardia High sensitive troponin-56, trended up to 425. NT proBNP-665 Received Lasix 20 mg IV in the ER. Had an episode of nonsustained V. tach for 20 seconds in the ER-received amiodarone 150 mg IV and magnesium sulfate 2 g IV Last echo March 2020 ejection fraction 15 to 20% with global hypokinesia of the LV, right ventricular systolic function moderately to severely reduced. Nuclear stress test-in the same admission in March 2020-no ischemia, normal EF ?? Plan: We will continue Lasix 40 mg IV twice daily Will start on a heparin drip for NSTEMI Echocardiogram Cardiology consult Will start on ASA and Lipitor ? Opioid dependence ON??methadone 50 mg daily will hold methadone for now. Had 20 sec??of NSVT in the ER. ?? HIV Hepatitis C Absolute CD4-228-7 months back continue Biktarvy Follows with ID clinic ? Diet-n.p.o. for now ?? DVT prophylaxis-on heparin drip ? CODE STATUS-full code ?? Called and updated son Yonathna Babb ? Histories Allergies Allergies ?(Active and Proposed Allergies Only) NKA? (Severity: Unknown severity, Onset: Unknown) ? Past Medical History/Problem List HIV Hep C COPD Cardiomyopathy Opioid dependence ?? Past Surgical History Colonoscopy, flexible, proximal to splenic flexure; diagnostic, with or without collection of specimen(s) by brushing or washing, with or without colon decompression (separate procedure): 07/18/14 ? Social History Tobacco Details:??Use: 5-9 cigarettes (between 1/4 to 1/2 pack)/day in last 30 days. ? Family History No significant family history. ? Medications Home Medications Albuterol (Albuterol (Eqv-ProAir HFA))?Inhalation?Every 6 hours bictegravir/emtricitabine/tenofovir (Biktarvy oral tablet)?See Instructions?TOME FRANCIS TABLETA TODOS [place]OPEZ Montelukast (montelukast 4 mg oral granule)?1?Each?4?Milligram?By Mouth?Daily Tiotropium (Spiriva)?18?Microgram?Inhalation?Daily ? Results Recent Labs BLOOD COUNT & DIFF WBC 14.7 k/mm3 (High)?? 08/31/2022 07:22 RBC 6.04 m/mm3 ()?? 08/31/2022 07:22 Hgb 13.8 Gm/dL ()?? 08/31/2022 07:22 Hct 45.8 % ()?? 08/31/2022 07:22 MCV 75.8 femtoliters (Low)?? 08/31/2022 07:22 MCH 22.8 pg (Low)?? 08/31/2022 07:22 MCHC 30.1 g/dL (Low)?? 08/31/2022 07:22 Platelet Count 223 k/mm3 ()?? 08/31/2022 07:22 RDW-SD 42.7 femtoliters ()?? 08/31/2022 07:22 MPV 11.3 femtoliters ()?? 08/31/2022 07:22 Nucleated RBC (Automated) 0.1 #/100 WBC'S ()?? 08/31/2022 07:22 Abs. NRBC 0.0 k/mm3 ()?? 08/31/2022 07:22 Abs. Neut 6.8 k/mm3 ()?? 08/31/2022 07:22 Abs. Lymph 6.5 k/mm3 (High)?? 08/31/2022 07:22 Abs. [place] 1.1 k/mm3 ()?? 08/31/2022 07:22 Abs. Eo 0.2 k/mm3 ()?? 08/31/2022 07:22 Abs. Baso 0.1 k/mm3 ()?? 08/31/2022 07:22 Neut % 46.3 % ()?? 08/31/2022 07:22 Lymph % 43.9 % (High)?? 08/31/2022 07:22 [place] % 7.6 % ()?? 08/31/2022 07:22 Eos % 1.4 % ()?? 08/31/2022 07:22 Baso % 0.3 % ()?? 08/31/2022 07:22 Hemoglobin (POC) POC Cartridge 15.0 Gm/dL ()?? 08/31/2022 07:33 Hematocrit (POC) POC Cartridge 44 % ()?? 08/31/2022 07:33 Imm Gran 0.5 % ()?? 08/31/2022 07:22 Abs. Imm Gran 0.1 k/mm3 ()?? 08/31/2022 07:22 ?? BLOOD GAS pH Venous (POC) POC Cartridge 7.13 (Low)?? 08/31/2022 07:33 pCO2 Venous (POC) POC Cartridge 83.6 mm Hg (High)?? 08/31/2022 07:33 pO2 Venous (POC) POC Cartridge 23 mm Hg (Low)?? 08/31/2022 07:33 Est Bicarbonate (POC) POC Cartridge 27.6 mmol/L ()?? 08/31/2022 07:33 % O2 Sat Venous (POC) POC Cartridge 23 ()?? 08/31/2022 07:33 Base Excess (POC) POC Cartridge NEGATIVE 2 ()?? 08/31/2022 07:33 Specimen Type - Blood Gas VENOUS ()?? 08/31/2022 07:33 pH, Venous 7.09 (Low)?? 08/31/2022 07:29 pCO2, Venous 91 mm Hg (High)?? 08/31/2022 07:29 pO2, Venous 26 mm Hg (Low)?? 08/31/2022 07:29 Bicarbonate, Estimated(Venous) 26 mmol/L ()?? 08/31/2022 07:29 ?? CARDIAC Nt-Probnp 665 pg/mL (High)?? 08/31/2022 07:22 High Sensitivity Troponin (HSTnT) 425 ng/L (Critical)?? 08/31/2022 09:19 ?? CHEM GENERAL Sodium 139 mmol/L ()?? 08/31/2022 07:22 Potassium 5.1 mmol/L ()?? 08/31/2022 07:22 Chloride 97 mmol/L (Low)?? 08/31/2022 07:22 Bicarbonate Level 22 mmol/L ()?? 08/31/2022 07:22 Anion Gap 20 (High)?? 08/31/2022 07:22 Sodium (POC) POC Cartridge 139 mmol/L ()?? 08/31/2022 07:33 Potassium (POC) POC Cartridge 4.2 mmol/L ()?? 08/31/2022 07:33 Glucose Level 210 mg/dL (High)?? 08/31/2022 07:22 Glucose (POC) POC Cartridge 226 (High)?? 08/31/2022 07:33 Glucose, POC 144 mg/dL (High)?? 08/31/2022 11:05 BUN 19 mg/dL ()?? 08/31/2022 07:22 Creatinine-Blood 1.5 mg/dL (High)?? 08/31/2022 07:22 Estimated GFR Creatinine 52 ML/MIN/1.73 M2 ()?? 08/31/2022 07:22 Calcium 9.8 mg/dL ()?? 08/31/2022 07:22 Ionized Calcium (POC) POC Cartridge 1.21 mmol/L ()?? 08/31/2022 07:33 Magnesium 2.6 mg/dL (High)?? 08/31/2022 07:22 Protein, Total 8.9 Gm/dL (High)?? 08/31/2022 07:22 Albumin 4.8 Gm/dL ()?? 08/31/2022 07:22 AG Ratio 1.2 ()?? 08/31/2022 07:22 Alkaline Phosphatase 149 units/L (High)?? 08/31/2022 07:22 AST (SGOT) 39 units/L ()?? 08/31/2022 07:22 ALT (SGPT) 16 units/L ()?? 08/31/2022 07:22 Bilirubin, Total 0.6 mg/dL ()?? 08/31/2022 07:22 Lactate 1.3 mmol/L ()?? 08/31/2022 09:17 ?? COAG INR 1.0 ()?? 08/31/2022 07:22 Protime (PT) 10.6 seconds ()?? 08/31/2022 07:22 APTT 24.8 seconds ()?? 08/31/2022 12:43 ?? VIROLOGY Influenza A PCR NEGATIVE ()?? 08/31/2022 07:44 Influenza B PCR NEGATIVE ()?? 08/31/2022 07:44 RSV PCR NEGATIVE ()?? 08/31/2022 07:44 COVID-19 PCR Specimen Source NASAL ()?? 08/31/2022 07:44 COVID-19 PCR Result NEGATIVE ()?? 08/31/2022 07:44 ? EKG study * Event Display: EKG Authored Date: * Event Display: ECG 12-Lead Authored Date: Please click on pdf link to open report * Event Display: ECG 12-Lead Authored Date: Ventricular Rate: 93 BPM Atrial Rate: 93 BPM P-R Interval: 214 ms QRS Duration: 84 ms Q-T Interval: 400 ms QTC Calculation(Bazett): 497 ms P [place]: 88 degrees R [place]: 46 degrees T [place]: 79 degrees Sinus rhythm with 1st degree A-V block Anteroseptal infarct , age undetermined Non specific ST changes in the lateral leads Abnormal ECG When compared with ECG of 31-AUG-2022 07:22, ST elevation has improved. Lateral ischemia has improved. Confirmed by DAVID RAYGOZA DO ([id number]) on 09/03/2022 1:29:09 PM Mcdonough: DAVID RAYGOZA DO Heart * Event Display: Echocardiogram - Complete Authored Date: [id number] Transthoracic Echocardiography Report (TTE) Patient Demographics Patient Name YONATHAN BABB Date of Study 08/31/2022 Corporate Gender Male Facility Race Ethnicity or Date of 1960 Height: 68 inches Age 61 year(s) Weight: 165.38 pounds Accession Number [id number] BSA: 1.89 m2 Room Number D628 BMI: 25.15 kg/m2 Referring Physician Donald Leary MD [employer] Nettie Posada RCS Indications NSTEMI. Clinical History HIV on HAART Hx polysubstance abuse (heroin, cocaine, tobacco) NSTEMI/ICMP COPD/Asthma CKD Hx trach/PEG- removed Study Data Type of Study TTE procedure:Echo Complete-Doppler, Colorflow, M-Mode. Study Date08/31/2022 Start Time: 01:14 PM Study Location: [facility] [place] Study Status: ER Patient Status: BRITTNI Technical Quality: Technically difficult Blood Pressure:107/82 mmHg EKG: Within normal limits HR: 89 bpm 2D Measurements LV Diastolic Dimension: 4.9 cm LV Systolic Dimension: 4.3 cm LV Septum Diastolic: 0.9 cm LV PW Diastolic: 1 cm AO Root Dimension: 3.1 cm LA Dimension: 3.3 cm LA ESV (BP):60.5 ml LVOT Stroke Volume: 43.96 ml LA ESV Index: 32 ml/m2 Stroke Volume Index23.26 ml/m2 LVOT: 2 cm Cardiac Index:2.07 l/min/m2 Doppler Measurements AV Peak Velocity: 88.5 cm/s AV Peak Gradient: 3.13 mmHg AV Mean Gradient: 2 mmHg AV VTI:13.4 cm LVOT Peak Velocity: 87.1 cm/s LVOT VTI14 cm AV Area (Continuity):3.28 cm2 Cardiac Anatomy Left Ventricle/Interventricular Septum The left ventricular size is normal. Left ventricular wall thickness is normal. The LV systolic function is severely reduced . The left ventricular ejection fraction is 20-25 %. The basal two thirds of the LV are severely hypokinetic to akinetic with some sparing of the LV apex. Left Atrium/Interatrial Septum The left atrium is normal in size. Aortic Valve The aortic valve leaflet opening is normal . There is no aortic stenosis. Mitral Valve The mitral valve is grossly normal. There is mild mitral regurgitation. Aorta The aortic root is normal in size. Right Ventricle The right ventricular size and function appears grossly normal. Right Atrium The right atrium is normal in size. Pulmonic Valve The pulmonic valve velocity is normal. Tricuspid Valve There is trace tricuspid valve regurgitation. Pumonary Artery An accurate pulmonary artery pressure could not be obtained. Venous Structures The inferior vena cava appears moderately dilated. Pericardium/Extracardiac There is no significant pericardial effusion. Summary The left ventricular size is normal. Left ventricular wall thickness is normal. The LV systolic function is severely reduced . The left ventricular ejection fraction is 20-25 %. The basal two thirds of the LV are severely hypokinetic to akinetic with some sparing of the LV apex. The right ventricular size and function appears grossly normal. Comparison No prior study available for comparison. Signature * Event Display: Echocardiogram - Complete Authored Date: [id number] Note * Lisa Cotto RN: PERFORM Event Display: Discharge/Transfer Note Hospital Authored Date: [id number] Nursing Discharge Note Entered On: 09/04/2022 14:43 EST Performed On: 09/04/2022 14:42 EST by Lisa Cotto RN Nursing Discharge Note 2 Discharge Time : 09/04/2022 15:16 EST Yadiel MARTÍNEZ Lisa - 09/04/2022 15:17 EST Discharge Level of Care at Discharge : Home/Half-Way/Foster Care Patient Left Unit Via : Wheelchair Patient Accompanied Off Unit with : Responsible adult, Other: STAFF DC Instructions Provided & Signed by Pt : Yes Patient Understands D/C Instructions : Yes Patient Instructions Discharge Signed : Yes Did Pt have Specialty Bed or Wound Vac : No Yadiel MARTÍNEZ Lisa - 09/04/2022 14:42 EST * Svitlana ROSS, Damian: MODIFY, MODIFY, MODIFY, MODIFY, PERFORM, MODIFY, MODIFY, MODIFY Event Display: Discharge/Transfer Note Hospital Authored Date: [id number] Patient: ??YONATHAN BABB ? Age:??61 Years?Sex:??Male?:??1960?? Patient Information Discharge Location: [facility] Primary Care Physician: Loreta Bhagat MD Admit Date/Time: 08/31/22 10:03 Discharge Disposition Discharge Disposition: Home: No Services Discharge Diagnosis Primary Diagnoses: Acute Hypoxic Respiratory Failure COPD exacerbation (J44.1) ?? Secondary Diagnoses: Dry skin (L85.3) HIV (human immunodeficiency virus infection) (B20) Heart failure (I50.9) Congestive Heart Failure NSTEMI (non-ST elevated myocardial infarction) (I21.4) Non-pressure ulcer of right lower extremity, limited to breakdown of skin (L97.911) Acute Kidney Injury Chronic Kidney Disease Opioid Dependence ?? _ Discharge Medications Albuterol (Albuterol (Eqv-ProAir HFA))?Inhalation?Every 6 hours Aspirin (aspirin 81 mg oral delayed release tablet)?81?Milligram?By Mouth?Daily Atorvastatin (Lipitor 40 mg oral tablet)?1?tab(s)?40?Milligram?By Mouth?Daily at bedtime bictegravir/emtricitabine/tenofovir (Biktarvy oral tablet)?See Instructions?TOME FRANCIS SERRATOA NINA LOPEZ Carvedilol (Coreg 6.25 mg oral tablet)?6.25?Milligram?1?tablet?By Mouth?2 times aday Methadone (methadone 10 mg/5 mL oral solution)?50?Milligram?By Mouth?Daily?oral solution; goes to [facility] Montelukast (montelukast 4 mg oral granule)?1?Each?4?Milligram?By Mouth?Daily PredniSONE (predniSONE 20 mg oral tablet)?2?tab(s)?40?Milligram?By Mouth?Daily Terri (LAST DOSE TOMORROW 09/05) Tiotropium (Spiriva)?18?Microgram?Inhalation?Daily Medications Started Aspirin (aspirin 81 mg oral delayed release tablet)?81?Milligram?By Mouth?Daily Atorvastatin (Lipitor 40 mg oral tablet)?1?tab(s)?40?Milligram?By Mouth?Daily at bedtime Carvedilol (Coreg 6.25 mg oral tablet)?6.25?Milligram?1?tablet?By Mouth?2 times aday PredniSONE (predniSONE 20 mg oral tablet)?2?tab(s)?40?Milligram?By Mouth?Daily Terri (LAST DOSE TOMORROW 09/05) Medications Discontinued None Doses Changed None Allergies Allergies ?(Active and Proposed Allergies Only) NKA? (Severity: Unknown severity, Onset: Unknown) ? PCP Follow-Up/Heads-Up Patient was found to have an NSTEMI and was started on GDMT due to history of CHF. During his hospital stay, he was found to have an AMBER so his furosemide and valsartan were held. He will need to have a BMP outpatient in 3-4 days, and if Cr has improved, these medications need to be restarted. He will also have to follow up with cardiology outpatient for a possible cath. Future Appointments 2022 9:15 AM EST ?? 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 ??The patient was??found to be??hypoxic with an O2 sat of 50% on room air??and??was??admitted for acute hypoxic respiratory failure due to COPD exacerbation.?He was admitted to enter care,??started on??steroids??and put on BiPAP. ??His shortness of breath have resolved, and his oxygen requirements have dramatically increased and now he is on??room air. ??He was also found to have??significantly??uptrending??troponins, concerning for??an NSTEMI, and he was started on a??heparin drip,however after consulting cardiology??the patient was??deemed to have??demand ischemia in the setting of acute CHF exacerbation given that his echo was unchanged compared to the previous one and he remained asymptomatic.??On day of discharge, he is asymptomatic and hemodynamically stable. ? Acute Hypoxic Respiratory Failure - Resolved COPD Exacerbation - Resolved Patient was??tachypneic,??tachycardic, and saturating 50% on??room air??when he was found by EMS. ??Initial VBG showed a??pH of 7 and a??pCO2 of 80.? Patient was placed on BiPAP??and transferred to [facility]. Symptoms??improved significantly, and??O2 requirements resolved, and he is currently on??room air. ?? Given that his??Pro-Gatito was negative, no need for antibiotics. Of note, the patient continues to smoke??5 cigarettes/day at home.? Recommendations: ??? Continue home??inhalers ??? Continue prednisone??40 mg??daily??for a total of??5 days??last day tomorrow Sep 05 ? 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 Echo at the time also showed global hypokinesia of the LV,??and moderately to severely reduced right ventricular systolic??dysfunction. Nuclear stress test from the same time showed no isc hemia.?Unclear why the patient was not taking GDMT. Last echo March 2020 ejection fraction 15 to 20% with global hypokinesia of the LV, right ventricular systolic function moderately to severely reduced. On admission: HsTn 56, up trended to 425. NT proBNP-665.??Lactate 7. CXR showing increased reticular??interstitial??lung markings concerning for pulmonary edema. Had an episode of nonsustained V. tach for 20 seconds in the ER-received amiodarone 150 mg IV and 2g of MgSO4?? Evaluated by cardiology, the patient was??deemed to have??demand ischemia in the setting of acute CHF exacerbation given that his echo was unchanged compared to the previous one and he remained asymptomatic. Today he is??euvolemic??on exam,??and denying having any SOB. Recommendations: - Continue??ASA and atorvastatin 40 mg -??Hold Lasix 40mg p,o daily for AMBER. Repeat BMP and restart accordingly. - Continue Coreg to??6.25??mg twice daily -??Hold valsartan 40mg daily??for Amber. Repeat BMP and restart accordingly - Follow up with cardiology outpatient for cath ? Acute Kidney Injury CKD Stage III Patient has a baseline Cr of 1.3-1.4. Etiology possibly prerenal given possible overdiuresis. Recommendations: -??Hold furosemide 40mg p.o daily - Encourage p.o intake - Repeat BMP in 3-4 days. Restart furosemide and valsartan if resolved ? Chronic stable medical conditions: - Opioid dependence: On??methadone 50 mg daily, dose confirmed with clinic 09/01 ?? - HIV, Hepatitis C: Absolute CD4-228-7 months back, follows with ID clinic. Continue Biktarvy Objective Vital Signs?? Temperature: 98.2 DegF (09/03/22 20:37:00) Temperature Route: Oral (09/03/22 20:37:00) Pulse Rate: 80 bpm (09/03/22 20:37:00) Respiratory Rate: 18 br/min (09/03/22 20:37:00) Systolic Blood Pressure:??145 mm Hg??High (09/03/22 20:37:00) Diastolic Blood Pressure: 82 mm Hg (09/03/22 20:37:00) Blood pressure sites: Arm, right (09/03/22 20:37:00) Mean Arterial Pressure: 103 mm Hg (09/03/22 20:37:00) Pulse Pressure: 63 mm Hg (09/03/22 20:37:00) Oxygen Saturation: 95 % (09/03/22 20:37:00) Mode of Delivery (Oxygen): Room air (09/03/22 20:37:00) Early Warning Score: 3 (09/03/22 20:56:23) ? . Physical Exam General:??No acute distress Respiratory:??Clear to auscultation bilaterally, no increased work of breathing Cardiovascular:??Normal rate, regular rhythm, no murmurs Abdomen:??No abdominal??tenderness Neurologic:??Alert & Oriented Musculoskeletal: No lower extremity edema or tenderness Psychiatric:??Normal mood/affect Consultants Nita ROSS, Yessica Keith - Cardiology Patient Education Titles Discharge Instructions for Acute Kidney Injury?? Identifying Your Heart Risks?? COPD Flare-Up?? Chronic Lung Disease: Tips for Quitting Smoking?? Follow-Up Appointments Added Follow Up ?Time Frame ?Comments Leola ROSS, Loreta?1 to 2 weeks Patient Instructions You were started on several medications during your hospital stay??due to your congestive heart failure. ??These medications include??carvedilol, aspirin,??atorvastatin,??furosemide,??and valsartan.?? Your furosemide and valsartan are currently held??because you were found to have??a mild??kidney??i njury, which is improving. ??Thus you need to have??repeat blood work done in 3??to 4 days, and follow-up with your primary care doctor??soon so??he can restart these medications??accordingly.?? You also need to follow-up with??cardiology, they will set up an appointment??for you.?? If you do not hear back from them,??call your PCP??and please follow-up. Post Discharge Care Diet: Cardiac diet Activity: Ambulate with assistance ??3 times a day ??unless otherwise specified Wound Care: Wound Site: RLE park ??Clean w/NS. Pat dry. Apply Xeroform to wound beds only. Cover w/gauze and lightly wrap w/salma or secure w/medipore tape ??Daily ??Yes Code Status: ?? Full Resuscitation Results Discharge Labs BLOOD COUNT & DIFF WBC 14.8 k/mm3 (High)?? 09/03/2022 04:39 RBC 5.27 m/mm3 ()?? 09/03/2022 04:39 Hgb 11.9 Gm/dL (Low)?? 09/03/2022 04:39 Hct 36.4 % (Low)?? 09/03/2022 04:39 MCV 69.1 femtoliters (Low)?? 09/03/2022 04:39 MCH 22.6 pg (Low)?? 09/03/2022 04:39 MCHC 32.7 g/dL (Low)?? 09/03/2022 04:39 Platelet Count 168 k/mm3 ()?? 09/03/2022 04:39 RDW-SD 36.2 femtoliters ()?? 09/03/2022 04:39 MPV 12.2 femtoliters ()?? 09/03/2022 04:39 Nucleated RBC (Automated) 0.1 #/100 WBC'S ()?? 09/03/2022 04:39 Abs. NRBC 0.0 k/mm3 ()?? 09/03/2022 04:39 Abs. Neut 6.8 k/mm3 ()?? 08/31/2022 07:22 Abs. Lymph 6.5 k/mm3 (High)?? 08/31/2022 07:22 Abs. [place] 1.1 k/mm3 ()?? 08/31/2022 07:22 Abs. Eo 0.2 k/mm3 ()?? 08/31/2022 07:22 Abs. Baso 0.1 k/mm3 ()?? 08/31/2022 07:22 Neut % 46.3 % ()?? 08/31/2022 07:22 Lymph % 43.9 % (High)?? 08/31/2022 07:22 [place] % 7.6 % ()?? 08/31/2022 07:22 Eos % 1.4 % ()?? 08/31/2022 07:22 Baso % 0.3 % ()?? 08/31/2022 07:22 Hemoglobin (POC) POC Cartridge 15.0 Gm/dL ()?? 08/31/2022 07:33 Hematocrit (POC) POC Cartridge 44 % ()?? 08/31/2022 07:33 Imm Gran 0.5 % ()?? 08/31/2022 07:22 Abs. Imm Gran 0.1 k/mm3 ()?? 08/31/2022 07:22 ?? BLOOD GAS pH Venous (POC) POC Cartridge 7.13 (Low)?? 08/31/2022 07:33 pCO2 Venous (POC) POC Cartridge 83.6 mm Hg (High)?? 08/31/2022 07:33 pO2 Venous (POC) POC Cartridge 23 mm Hg (Low)?? 08/31/2022 07:33 Est Bicarbonate (POC) POC Cartridge 27.6 mmol/L ()?? 08/31/2022 07:33 % O2 Sat Venous (POC) POC Cartridge 23 ()?? 08/31/2022 07:33 Base Excess (POC) POC Cartridge NEGATIVE 2 ()?? 08/31/2022 07:33 Specimen Type - Blood Gas VENOUS ()?? 08/31/2022 07:33 pH, Venous 7.09 (Low)?? 08/31/2022 07:29 pCO2, Venous 91 mm Hg (High)?? 08/31/2022 07:29 pO2, Venous 26 mm Hg (Low)?? 08/31/2022 07:29 Bicarbonate, Estimated(Venous) 26 mmol/L ()?? 08/31/2022 07:29 ? CARDIAC Nt-Probnp 665 pg/mL (High)?? 08/31/2022 07:22 High Sensitivity Troponin (HSTnT) 269 ng/L (Critical)?? 09/01/2022 13:47 ?? CHEM GENERAL Sodium 133 mmol/L ()?? 09/03/2022 04:39 Potassium 5.1 mmol/L ()?? 09/03/2022 04:39 Chloride 95 mmol/L (Low)?? 09/03/2022 04:39 Bicarbonate Level 24 mmol/L ()?? 09/03/2022 04:39 Anion Gap 14 ()?? 09/03/2022 04:39 Sodium (POC) POC Cartridge 139 mmol/L ()?? 08/31/2022 07:33 Potassium (POC) POC Cartridge 4.2 mmol/L ()?? 08/31/2022 07:33 Glucose Level 92 mg/dL ()?? 09/03/2022 04:39 Glucose (POC) POC Cartridge 226 (High)?? 08/31/2022 07:33 Glucose, POC 144 mg/dL (High)?? 08/31/2022 11:05 BUN 69 mg/dL (High)?? 09/03/2022 04:39 Creatinine-Blood 2.2 mg/dL (High)?? 09/03/2022 04:39 Estimated GFR Creatinine 34 ML/MIN/1.73 M2 ()?? 09/03/2022 04:39 Calcium 9.7 mg/dL ()?? 09/03/2022 04:39 Ionized Calcium (POC) POC Cartridge 1.21 mmol/L ()?? 08/31/2022 07:33 Phosphorus 3.4 mg/dL ()?? 09/02/2022 06:31 Magnesium 2.1 mg/dL ()?? 09/03/2022 04:39 Protein, Total 8.9 Gm/dL (High)?? 08/31/2022 07:22 Albumin 4.8 Gm/dL ()?? 08/31/2022 07:22 AG Ratio 1.2 ()?? 08/31/2022 07:22 Alkaline Phosphatase 149 units/L (High)?? 08/31/2022 07:22 AST (SGOT) 39 units/L ()?? 08/31/2022 07:22 ALT (SGPT) 16 units/L ()?? 08/31/2022 07:22 Bilirubin, Total 0.6 mg/dL ()?? 08/31/2022 07:22 Lactate 1.3 mmol/L ()?? 08/31/2022 09:17 ? COAG INR 1.0 ()?? 08/31/2022 07:22 Protime (PT) 10.6 seconds ()?? 08/31/2022 07:22 APTT 59.9 seconds (High)?? 09/02/2022 06:31 ? MISC. CHEMISTRY Procalcitonin 0.07 ng/mL ()?? 08/31/2022 07:22 ? TOXICOLOGY/TDM Cannabinoid Screen, Urine POSITIVE (Abnormal)?? 09/01/2022 13:40 Cocaine Metabolite Screen, Urine NONE DETECTED ()?? 09/01/2022 13:40 Opiate Screen, Urine NONE DETECTED ()?? 09/01/2022 13:40 ? UA/URINALYSIS Hold Urine Culture Testing available 48 hours from time of collection. ()?? 09/03/2022 17:40 ? URINE OTHER Creatinine, Urine Random 122.2 mg/dL ()?? 09/03/2022 15:15 Sodium, Urine Random 24 mmol/L ()?? 09/03/2022 15:15 Uric Acid, Urine Random 12.5 mg/dL ()?? 09/03/2022 15:15 ? VIROLOGY Influenza A PCR NEGATIVE ()?? 08/31/2022 07:44 Influenza B PCR NEGATIVE ()?? 08/31/2022 07:44 RSV PCR NEGATIVE ()?? 08/31/2022 07:44 COVID-19 PCR Specimen Source NASAL ()?? 09/03/2022 05:30 COVID-19 PCR Result NEGATIVE ()?? 09/03/2022 05:30 ? Patient has been??seen and discussed with Dr. Ravinder Salgado??MD [facility] ?? 45 minutes spent on discharge * Yadiel MARTÍNEZ, Lisa: PERFORM Event Display: Patient Education/Instruction Authored Date: [id number] Inpatient Adult Discharge Instructions [address] [address] Name: YONATHAN BABB : 1960 Visit: 08/31/2022 10:03:00 Current Date: 09/04/2022 14:44 Account: [id number] Inpatient Adult Discharge Instructions We would like [...] and their families. Surveys are administered by [employer] ?? If further treatment with your primary care physician or another doctor is recommended, it is important for you to keep the appointment. Call your primary care physician or return to the Emergency Department immediately if your condition worsens, fails to improve, or new symptoms develop. If you need to find a doctor, you can call [facility] for a referral at [phone] or toll free at [phone]) or log in to [email or web address].. ?? You can view and manage your care through the patient portal or by using a health care chiki of your choosing. [employer] is a website that allows you to securely view your medical information including your hospital discharge summary, office visit summaries, medications and follow-up visits. You can also request appointments, renew medications, and request access to your medical information using a health care chiki of your choosing, or just ask a question. You can enroll at [email or web address] or register during your next office visit. You have been discharged from [facility], Patient Care Unit: S3. If you have any questions regarding these instructions after you leave, please call us and we will be happy to assist you. [facility] Your Care Team Attending Physician Ravinder ROSS, Anuksh Carlson Consulting Providers Nita ROSS, Yessica Keith Discharging Providers Svitlana ROSS, Damian Reason for Admission see level 1 sheet Your Diagnosis Hypoxia Respiratory failure COPD exacerbation NSTEMI (non-ST elevated myocardial infarction) Heart failure HIV (human immunodeficiency virus infection) Dry skin Non-pressure ulcer of right lower extremity, limited to breakdown of skin Tests Performed Below is a partial list of the tests performed during your hospitalization. You may have had other tests and procedures not included in this list. Please discuss all test results with your provider. BASE EXCESS POC CARTRIDGE Basic Metabolic Panel BUN CALCIUM IONIZED POC CART Calcium Level Cannabinoid Urine Screen CBC CBC w/ Differential Cocaine Urine Screen Comprehensive Metabolic Panel COVID-19 (2019 Novel Coronavirus) PCR COVID-19, RSV, and Flu A/B, Rapid PCR Creatinine Electrolytes Glucose Level GLUCOSE POC GLUCOSE POC CARTRIDGE HEMATOCRIT POC CARTRIDGE HEMOGLOBIN POC CARTRIDGE High??Sensitivity??Troponin T HOLD BLUE TUBE?-- Results Pending -- HOLD URINE CULTURE INR Lactate Level Magnesium Level Opiate Screen Urine Phosphorus Level POTASSIUM POC CARTRIDGE ProBNP PROCALCITONIN, SERUM PTT SODIUM POC CARTRIDGE Troponin T, High Sensitivity Urinalysis w/hold for Urine Culture?-- Results Pending -- Urine Creatinine Urine Sodium Urine Uric Acid VBG VBG POC CARTRIDGE XR Chest Portable ? You will be contacted within 72 hours with your results. Primary Care Provider Leola ROSS, [facility] Advance Directive Health Care Proxy on File Yes - Health Care Proxy No qualifying data available. Discharge Vitals Temperature: 97.7 DegF Weight: 73.8 kg Pulse Rate: 70 bpm ?? Respiratory Rate: 18 br/min ?? Systolic Blood Pressure:??140 mm Hg??High ?? Diastolic Blood Pressure: 83 mm Hg ?? Oxygen Saturation:??92 %??Low ?? Studies Pending All tests and labs ordered during this hospital stay have been completed unless listed below. Please discuss all pending results with your provider listed above in these instructions. ?? Add On Lab Order (Lab Add On Order) Blood Culture Blood Culture #2 Hold Blue Top Tube (HOLD BLUE TUBE) Urinalysis w/hold for Urine Culture What to do next Instructions From Your Doctor You were started on several medications during your hospital stay??due to your congestive heart failure. ??These medications include??carvedilol, aspirin,??atorvastatin,??furosemide,??and valsartan.?? Your furosemide and valsartan are currently held??because you were found to have??a mild??kidney??i njury, which is improving. ??Thus you need to have??repeat blood work done in 3??to 4 days, and follow-up with your primary care doctor??soon so??he can restart these medications??accordingly.?? You also need to follow-up with??cardiology, they will set up an appointment??for you.?? If you do not hear back from them,??call your PCP??and please follow-up. Discharge Orders Diet:??Cardiac diet Activity:??Ambulate with assistance 3 times a day unless otherwise specified Wound Care:??Wound Site: RLE park Clean w/NS. Pat dry. Apply Xeroform to wound beds only. Cover w/gauze and lightly wrap w/salma or secure w/medipore tape Daily Yes Code Status:?? Full Resuscitation Scheduled Follow-Up Appointments 2022 9:15 AM EST ?? With: Sav SMITH, Quinn Howard Where: [facility] [address] [place] [address]- You Need to Schedule the Following Appointments Follow Up with??Leola ROSS, Loreta When??Within 1 to 2 weeks Where: [address] [place] [id number]- Discharge Medications YONATHAN BABB :1960 Visit Date:08/31/2022 Medications: Please continue your medications until treatment is completed or stopped by your provider. Medications not listed below should be discontinued. Discuss any questions related to medications with your provider. What How Much When Instructions Next Dose New Aspirin (aspirin 81 mg oral delayed release tablet) 81 Milligram Oral Daily Pickup at [facility]/pharmacy #09/05 New Atorvastatin (Lipitor 40 mg oral tablet) 1 tab(s) Oral Daily at Bedtime Pickup at [facility]/pharmacy #09/04 New Carvedilol (Coreg 6.25 mg oral tablet) 1 tab(s) Oral Twice a day Pickup at [facility]/pharmacy #09/04 New Miscellaneous Rx (-) See instructions Go to the lab and do a basic metabolic panel in 3-4 days. ?? Printed Prescription SEE INSTRUCTIONS New PredniSONE (predniSONE 20 mg oral tablet) 2 tab(s) Oral Daily in the morning Pickup at [facility]/pharmacy #09/05 Unchanged Albuterol (Albuterol (Eqv-ProAir HFA)) Inhalation Every 6 hours EVERY 6 HOURS Unchanged bictegravir/ emtricitabine/ tenofovir (Biktarvy oral tablet) See instructions TOME FRANCIS TABLETA [place] ?? SEE INSTRUCTIONS Unchanged Methadone (methadone 10 mg/ 5 mL oral solution) 50 Milligram Oral Daily oral solution; goes to [facility] ?? 09/05 Unchanged Montelukast (montelukast 4 mg oral granule) 1 Each Oral Daily 09/05 Unchanged Tiotropium (Spiriva) 18 Microgram Inhalation Daily 09/05 Pharmacy Information [facility]/pharmacy #[id number]: [address], [place] [id number] [phone] Test Results Below is a partial list of the most recent Laboratory test results done prior to this discharge. You may have had other tests and procedures not included in this list. Please discuss all test resultswith your provider. BASE EXCESS POC CARTRIDGE (08/31/2022) ???Base Excess (POC) POC Cartridge - NEGATIVE 2 Basic Metabolic Panel (09/04/2022) ???Sodium - 135 mmol/L???Potassium - 4.8 mmol/L???Chloride - 95 mmol/L???Bicarbonate Level - 29 mmol/L???Anion Gap - 11???Glucose Level - 119 mg/dL???BUN - 71 mg/dL???Creatinine-Blood - 1.9 mg/dL???Estimated GFR Creatinine - 41 ML/MIN/1.73 M2???Calcium - 10.1 mg/dL BUN (09/02/2022) ???BUN - 41 mg/dL CALCIUM IONIZED POC CART (08/31/2022) ???Ionized Calcium (POC) POC Cartridge - 1.21 mmol/L Calcium Level (09/01/2022) ???Calcium - 9.3 mg/dL Cannabinoid Urine Screen (09/01/2022) ???Cannabinoid Screen, Urine - POSITIVE CBC (09/04/2022) ???WBC - 12.3 k/mm3???RBC - 5.41 m/mm3???Hgb - 12.5 Gm/dL???Hct - 38.3 %???MCV - 70.8 femtoliters???MCH - 23.1 pg???MCHC - 32.6 g/dL???Platelet Count - 145 k/mm3???RDW-SD - 35.5 femtoliters???MPV - 12.2 femtoliters???Nucleated RBC (Automated) - 0.0 #/100 WBC'S???Abs. NRBC - 0.0 k/mm3 CBC w/ Differential (08/31/2022) ???WBC - 14.7 k/mm3???RBC - 6.04 m/mm3???Hgb - 13.8 Gm/dL???Hct - 45.8 %???MCV - 75.8 femtoliters???MCH - 22.8 pg???MCHC - 30.1 g/dL???Platelet Count - 223 k/mm3???RDW-SD - 42.7 femtoliters???MPV - 11.3 femtoliters???Nucleated RBC (Automated) - 0.1 #/100 WBC'S???Abs. NRBC - 0.0 k/mm3???Abs. Neut - 6.8 k/mm3???Abs. Lymph - 6.5 k/mm3???Abs. [place] - 1.1 k/mm3???Abs. Eo - 0.2 k/mm3???Abs. Baso - 0.1 k/mm3???Neut % - 46.3 %???Lymph % - 43.9 %???[place] % - 7.6 %???Eos % - 1.4 %???Baso % - 0.3 %???Imm Gran - 0.5 %???Abs. Imm Gran - 0.1 k/mm3 Cocaine Urine Screen (09/01/2022) ???Cocaine Metabolite Screen, Urine - NONE DETECTED Comprehensive Metabolic Panel (08/31/2022) ???Sodium - 139 mmol/L???Potassium - 5.1 mmol/L???Chloride - 97 mmol/L???Bicarbonate Level - 22 mmol/L???Anion Gap - 20???Glucose Level - 210 mg/dL???BUN - 19 mg/dL???Creatinine-Blood - 1.5 mg/dL???Estimated GFR Creatinine - 52 ML/MIN/1.73 M2???Calcium - 9.8 mg/dL???Protein, Total - 8.9 Gm/dL???Albumin - 4.8 Gm/dL???AG Ratio - 1.2???Alkaline Phosphatase - 149 units/L???AST (SGOT) - 39 units/L???ALT (SGPT) - 16 units/L???Bilirubin, Total - 0.6 mg/dL COVID-19 (2019 Novel Coronavirus) PCR (09/03/2022) ???COVID-19 PCR Specimen Source - NASAL???COVID-19 PCR Result - NEGATIVE COVID-19, RSV, and Flu A/B, Rapid PCR (08/31/2022) ???Influenza A PCR - NEGATIVE???Influenza B PCR - NEGATIVE???RSV PCR - NEGATIVE???COVID-19 PCR Specimen Source - NASAL???COVID-19 PCR Result - NEGATIVE Creatinine (09/02/2022) ???Creatinine-Blood - 1.5 mg/dL???Estimated GFR Creatinine - 54 ML/MIN/1.73 M2 Electrolytes (09/02/2022) ???Sodium - 135 mmol/L???Potassium - 4.8 mmol/L???Chloride - 95 mmol/L???Bicarbonate Level - 24 mmol/L???Anion Gap - 16 Glucose Level (09/02/2022) ???Glucose Level - 101 mg/dL GLUCOSE POC (08/31/2022) ???Glucose, POC - 144 mg/dL GLUCOSE POC CARTRIDGE (08/31/2022) ???Glucose (POC) POC Cartridge - 226 HEMATOCRIT POC CARTRIDGE (08/31/2022) ???Hematocrit (POC) POC Cartridge - 44 % HEMOGLOBIN POC CARTRIDGE (08/31/2022) ???Hemoglobin (POC) POC Cartridge - 15.0 Gm/dL High??Sensitivity??Troponin T (08/31/2022) ???High Sensitivity Troponin (HSTnT) - 425 ng/L HOLD URINE CULTURE (09/03/2022) ???Hold Urine Culture - Testing available 48 hours from time of collection. INR (08/31/2022) ???INR - 1.0???Protime (PT) - 10.6 seconds Lactate Level (08/31/2022) ???Lactate - 1.3 mmol/L Magnesium Level (09/04/2022) ???Magnesium - 2.2 mg/dL Opiate Screen Urine (09/01/2022) ???Opiate Screen, Urine - NONE DETECTED Phosphorus Level (09/02/2022) ???Phosphorus - 3.4 mg/dL POTASSIUM POC CARTRIDGE (08/31/2022) ???Potassium (POC) POC Cartridge - 4.2 mmol/L ProBNP (08/31/2022) ???Nt-Probnp - 665 pg/mL PROCALCITONIN, SERUM (08/31/2022) ???Procalcitonin - 0.07 ng/mL PTT (09/02/2022) ???APTT - 59.9 seconds SODIUM POC CARTRIDGE (08/31/2022) ???Sodium (POC) POC Cartridge - 139 mmol/L Troponin T, High Sensitivity (09/01/2022) ???High Sensitivity Troponin (HSTnT) - 269 ng/L Urine Creatinine (09/03/2022) ???Creatinine, Urine Random - 122.2 mg/dL Urine Sodium (09/03/2022) ???Sodium, Urine Random - 24 mmol/L Urine Uric Acid (09/03/2022) ???Uric Acid, Urine Random - 12.5 mg/dL VBG (08/31/2022) ???Specimen Type - Blood Gas - VENOUS???pH, Venous - 7.09???pCO2, Venous - 91 mm Hg???pO2, Venous -26 mm Hg???Bicarbonate, Estimated(Venous) - 26 mmol/L VBG POC CARTRIDGE (08/31/2022) ???pH Venous (POC) POC Cartridge - 7.13???pCO2 Venous (POC) POC Cartridge - 83.6 mm Hg???pO2 Venous(POC) POC Cartridge - 23 mm Hg???Est Bicarbonate (POC) POC Cartridge - 27.6 mmol/L???% O2 Sat Venous (POC) POC Cartridge - 23???Specimen Type - Blood Gas - VENOUS Allergies (NKA means No Known Allergies) NKA Problems No qualifying data available Education Materials Below is the list of Educational Leaflet Providered with your Discharge Instructions. Discharge Instructions for Acute Kidney Injury?? Identifying Your Heart Risks?? COPD Flare-Up?? Chronic Lung Disease: Tips for Quitting Smoking?? Valuables and Belongings I fully understand and agree that [facility] accepts no responsibility for all my [...] to send valuables and belongings home. ?? No Valuables/Belongings: No valuables/belongings present Review of Valuable and Belonging List: With patient Disposition of Belongings: Sent home with patient/family Date for Pt to Sign Valuables/Belongings: 09/04/22 12:44:00 ?? Other Discharge Information ?? Wound Assessment?? Wound Assessment?? Wound Location I: Leg, right lower Wound Type I: Unknown Etiology Wound I, Present on Admission: Yes ?? Case Management Discharge Plan?? Discharge Plan?? Discharge Level of Care at Discharge: Home/Half-Way/Foster Care ?? Pulmonary Rehab Status?? Pulmonary Rehab Discharge Status?? CPAP/BiPAP Mask Type: Full CPAP/BiPAP Mask Size: Large Respiratory Rate: 18 br/min ? Common Emergency Awareness Tips IS [...] are strongly encouraged to quit. Please call [facility] [employer] at [phone] or [phone] or log in to [email or web address] for referrals to smoking cessation programs. ?? The National Suicide Prevention Hotline is available 01/03 if you or someone you know needs to find a reason to keep living. By calling 8-775-579-City[employer] (6652) you'll be connected to a skilled, trained counselor at a crisis center in your area. INPATIENT DISCHARGE INSTRUCTIONS SIGNATURE PAGE YONATHAN BABB Location:[facility] Registration Date and Time:08/31/2022 10:03 [facility] Primary Care Physician: Leola ROSS, [facility], I YONATHAN BABB, have received the above patient education materials/instructions and have verbalized understanding. If ambulance or transport services are being used I further acknowledge being givena choice of service. ?? If you need to contact me, please call me at this number: . 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 90287 Discharge Instructions for Acute Kidney Injury You have been diagnosed with acute kidney injury. This means that you have had a sudden episode of kidney failure or damage that causes your kidneys not to work correctly. When both kidneys are healthy, they help filter out fluid and waste from the blood and body.??Acute kidney injury has many causes. These include urinary blockages, infection, lack of enough blood supply, and medicines that can injure??kidneys. In some cases, acute kidney injury is short-term (temporary). This type lasts several days to a few months. This is because the kidney can repair itself. Acute kidney injury can also result in chronic kidney disease or end stage renal failure. Here are some directions for you to follow as you recover. Home care ??? Follow any directions for eating and drinking given to you by your healthcare provider. o Drink less fluid, if directed by your healthcare provider. o Keep a record of everything you eat and drink. ??? Measure the amount of urine and stool you have each day. ??? Weigh yourself every day, at the same time of day, and in the same kind of clothes. Keep a daily record of your daily weights. ??? Take your temperature every day. Keep a record of the results. ??? Learn to take your own blood pressure (BP). Your healthcare provider can teach you how to correctly measure your BP. Keep a record of your results. Bring the record to your follow-up appointments. Ask your healthcare provider when you should seek emergency medical attention. Your provider will tell you what blood pressure reading is dangerous. ??? Stay away from people who have infections. This includes people with colds, bronchitis, or skin conditions. ??? Practice good personal??hygiene. Wash your hands often. This is especially important if you have a catheter in place when you leave the hospital. Doing so helps keep you safe from infection. ??? Take your medicines exactly as directed. ??? You may need frequent blood and urine tests. These are done to keep track of your kidney function. ?? Follow-up care Follow up with your healthcare provider, or as advised. ?? When to call your healthcare provider Call your??healthcare provider??right away if any of the following occur: ??? Signs of bladder infection, such as urinating more often, burning or pain when you pee, pain above your pubic bone, bloodin your urine, or trouble starting your urine stream ??? Signs of infection around your catheter, such as redness, swelling, warmth, or fluid leaking ??? Rapid weight loss or weight gain, such as 3??pounds or more in 24 hours or 6 pounds or more in 7 days ??? Fever above 100.4?? F ( 38??C ) or as directed by your healthcare provider ??? Chills ??? Muscle aches ??? Night sweats ??? Very little or no urine output ??? Swelling of your hands, legs, or feet ??? Back pain ??? Abdominal (belly) pain ??? Extreme tiredness ?? Last Reviewed Date: 2022 ?? [employer]. All rights reserved. This information is not intended as a substitute for professional medical care. Always follow your healthcare professional's instructions. ?? * Damian Shane MD: PERFORM Event Display: Patient Education Leaflets Authored Date: [id number] Identifying Your Heart Risks ?? 25141 Identifying Your Heart Risks What are your risk factors? A risk factor increases your chance of having heart disease. Some risk factors can???t be controlled. These include your age or family history of heart disease. But most others can be managed by making lifestyle changes and taking medicine. For each risk factor you reduce, your chance of heart attack and stroke goes down. And the length and quality of life may go up. You can make changes to manage the following risk factors. ?? Abnormal cholesterol levels Abnormal levels of cholesterol can increase your risk of developing atherosclerotic cardiovascular disease (ASCVD), which can lead to a heart, stroke, or other problems. If your cholesterol levels are of concern, your healthcare provider will work with you to improve your cholesterol level. Lifestyle changes such as diet, exercise, and weight management can help improve your cholesterol level, but you may also need medicine. ?? High blood pressure High blood pressure (hypertension) occurs when blood pushes too hard against artery rich as it flows through them. This damages the artery lining. In general, you???re at risk if you have: ??? Bloodpressure of 120/80 or higher. Your doctor may prescribe a personal goal. ??? Blood pressure of 130/80 is high blood pressure. ?? Smoking This is the most important risk factor you can change. Smoking damages arteries and makes it easierfor plaque to build up. Smokers are also at higher risk for blood clots (which can block arteries) and stroke. You???re at risk if you use any kind of tobacco or nicotine. This means: ??? Cigarettes ??? E-cigarettes ??? Chew tobacco ??? Cigars ??? Pipe ?? Diabetes This health problem leads to a high level of sugar in your blood. It can damage the arteries if notkept under control. Diabetes makes you more likely to have a silent heart attack (one without symptoms). You???re at risk if: ??? Your A1C is between 5.7 and 6.4. Once it reaches 6.5, you have diabetes. Your healthcare provider will help you figure out what your A1C should be. Your target number will depend on your age, general health, and other factors. Your treatment plan may need changes if your current number is too high. ?? Excess weight Being overweight makes other risk factors, such as high blood pressure and diabetes, more likely. Excess weight around the waist or stomach increases your heart disease risk the most. You???re at risk if your: ??? Waist circumference is more than 35 inches (women) or 40 inches (men). ??? Body mass index (BMI) is greater than 25. ?? Lack of physical activity If you???re not active, problems with diabetes, blood pressure, cholesterol, and weight are more likely. You???re at risk if: ??? You exercise less than 40 minutes per day, on fewer than??3 to 4??days a week. ?? Stress and strong emotions Stressful events and feelings can raise heart rate and blood pressure. Stress can also bring on feelings of depression, anxiety, and anger. These feelings do not directly lead to heart disease, but they do affect overall health and make quality of life worse. Unhealthy Diet Diets high in saturated fats, trans fat, and cholesterol have been linked to heart disease and coronary artery disease. Eating a healthy diet of fruits, legumes, vegetables, whole grains, nuts, lean fish or lean animal protein is a way to replace eating less healthy foods. By cutting back on saturated fat and trans fat, you can lower your LDL ( bad ) cholesterol and triglyceride levels. LDL is one of the primary substances that causes heart attacks. You can stay away from most trans fatty acids by eating less margarine and fewer cookies, crackers, fries, doughnuts, and other snack foods that contain partially hydrogenated oils. Drinking too much alcohol can raise blood pressure levels and the risk for heart disease. It also increases levels of triglycerides. ?? Last Reviewed Date: 2019 ?? 6417-8881 [employer]. All rights reserved. This information is not intended as a substitute for professional medical care. Always follow your healthcare professional's instructions. ?? * Damian Shane MD: PERFORM Event Display: Patient Education Leaflets Authored Date: [id number] COPD Flare-Up ?? [id number] COPD Flare-Up You have had a flare-up of your COPD. COPD (chronic obstructive pulmonary disease) is a common lung disease. It causes your airways to get irritated and narrower. This makes it harder for you to breathe. Emphysema and chronic bronchitis are both types of COPD. This is a long-term (chronic) condition. This means you always have it. Sometimes it gets worse. When this happens, it's called a flare-up. Symptoms of COPD People with COPD may have symptoms most of the time. In a flare-up, your symptoms get worse. These symptoms may mean you are having a flare-up: ??? Shortness of breath, shallow or rapid breathing, orwheezing that gets worse ??? Lung infection ??? Cough that gets worse ??? More mucus (or sputum), thicker mucus, or mucus of a different color ??? Tiredness, less energy, or trouble doing your normalactivities ??? Fever ??? Chest tightness ??? Your symptoms don???t get better even when you use your normal medicines, inhalers, and nebulizer ??? Trouble talking ??? You feel confused ?? Causes of flare-ups Unfortunately, a flare-up can happen even if you did everything right, and even if you followed your healthcare provider???s instructions. Some causes of flare- ups are: ??? Cold weather ??? Smoking or secondhand smoke ??? Use of e- cigarettes or vaping products ??? Colds, the flu, or respiratory infections ??? Air pollution ??? Sudden change in the weather ??? Dust, vapors, gases, irritating chemicals, or strong fumes ??? Not taking your medicines as prescribed ??? Indoor pollution such as burning wood, smoke from home cooking, or heating fuels ?? Home care Here are some things you can do at home to treat a flare-up: ??? Keep calm and try not to panic. This makes it harder to breathe, and keeps you from doing the right things. ??? Don???t smoke or be around others who are smoking. If you smoke, quit. Smoking is the main cause of COPD. Quitting will help you be able to better manage your COPD. Don't use e-cigarettes or vaping products either. Ask your healthcare provider about ways to help you quit smoking. ??? Before drinking extra fluids during flare-ups to loosen the mucus, always talk with your healthcare provider first. ??? Eat a healthy, balanced diet. This is important to staying as healthy as possible. So is trying to stay at your ideal weight. Being overweight or underweight can affect your health. Make sure you have a lot of fruits and vegetables every day. And also eat balanced portions of whole grains, lean meats and fish, and low-fat dairy products. ??? Use your inhalers and nebulizer, if you have one, as you have been told to. When using a metered dose inhaler or nebulizer, it's very important to use the proper techniques.If you have any questions about how to use your device, contact your healthcare provider or refer to the user manual. ??? If you were given antibiotics, take them until they are used up or your provider tells you to stop. It???s important to finish the antibiotics even though you feel better. This will make sure the infection has cleared. ??? If you were given a steroid, finish it even if you feel better. ??? Learn the names of your medicines, as well as how and when to use them. Talk with yourprovider about other conditions you have and their treatment and how it may affect your COPD. ??? Oxygen may be prescribed if tests show that your blood contains too little oxygen. Ask your provider about long-term oxygen therapy. ??? Coping tips for shortness of breath include: o Exercise. Try to be as active as possible. This will improve energy levels and strengthen your muscles so you can do more. o Breathing methods. Ask your healthcare provider or nurse to show you how to do pursed-lip breathing. o Balance rest and activity. Each day, try to balance rest periods with activity. For example, you might start the day with getting dressed and eating breakfast. Then you can relax and read the paper. After that, take a brief walk. And then sit with your feet up for a while. o Pulmonary rehab (rehabilitation). Community-based and home-based programs work as well as hospital-based programs as long as they are as often and as intense. Standard home-based pulmonary rehab programs help shortness of breath in people with COPD. Supervised, traditional pulmonary rehab remains the best optionfor people with COPD. These programs help with managing your disease and also help with breathing methods, exercise, support, and counseling. To find one, ask your provider or call your local hospital. Also talk with your healthcare provider about which rehab or self- management program is best for you. ?? Preventing a flare-up Flare-ups happen. But the best way to treat one is to prevent it before it starts. Here are some pointers: ??? Don???t smoke or be around others who are smoking. Avoid using e-cigarettes due to theirharmful side effects. ??? Take your medicines as discussed with your healthcare provider. ??? Talk with your provider about getting a flu shot every year. Also find out if you need a pneumonia shot. ??? If there is a weather advisory warning to stay indoors, try to stay inside when possible. ??? Try to eat healthy, exercise, and get plenty of sleep. ??? Try to stay away from things that normally set you off. These include dust, chemical fumes, hairsprays, or strong perfumes. ?? Follow-up care Follow up with your healthcare provider as advised. If a culture was done, you will be told if your treatment needs to be changed. You can call as directed??for the results. If X-rays were done, you will be told of any new findings that may affect your care. During each appointment, talk with your healthcare provider about your ability to: ??? [place] in yournormal environment ??? Correctly use inhaler (or your medicine delivery systems) ??? [place] with other conditions you have and their treatments and how they may affect your COPD ?? Call 911 Call 911 if any of these occur: ??? Wheezing or shortness of breath does not get better with treatment ??? Chest pain or chest tightness ??? Feeling lightheaded or dizzy ??? You have trouble breathing ??? You feel confused or it???s hard to wake you up ??? You faint or lose consciousness ??? You have a rapid heart rate ??? You have new pain in your chest, arm, shoulder, neck, or upper back ?? When to seek medical advice Call your healthcare provider right away??if??any of these occur: ??? Fever of 100.4??F??(38??C) orhigher, or as directed by your healthcare provider ??? Coughing up lots of dark-colored or bloody mucus (sputum) ??? You don't start to get better within 24 hours or new symptoms develop ??? Swellingof your ankles gets worse ??? Weakness ?? Last Reviewed Date: 2021 ?? [id number] [employer]. All rights reserved. This information is not intended as a substitute for professional medical care. Always follow your healthcare professional's instructions. ?? * Event Display: Cardiac Rhythm Strips Authored Date: * Event Display: Cardiac Rhythm Strips Authored Date: Hospital Progress note * Kylah Copeland RN: PERFORM, SIGN, VERIFY Event Display: Progress Note Hospital Authored Date: Patient: YONATHAN BABB Age: 61 years Sex: Male : 1960 Associated Diagnoses: None Author: Kylah Copeland RN Findings Problem Related to Alteration in Respiratory Function (new) : Alteration in Respiratory Function/new 09/04/2022 10:00 EST Alteration in Resp Status Related to COPD, Pneumonia Goals & Outcomes, Respiratory Pt will maintain/resume baseline physical assessment, Pt will notdevelop complications r/t mechanical ventilation, Pt will maintain adequate nutritional intake, Pt will maintain/resume normal fluid/electrolyte balance, Pt will not develop complications r/t immobility, Pt will demonstrate proper technique w/self care procedures Interventions, Respiratory Assess for and report S&S of respiratory distress, Position for comfort & optimal oxygenation, Initiate pulmonary rehab nurse consult, Monitor sputum color & consistency. Report changes to MD HELLER Goals/Interventions, Respiratory Yes Respiratory, Problem Start 08/31/2022 15:00 Reviewed Plan with, Respiratory Patient Patient Progression, Respiratory Patient progressing according to plan . Nursing Data Cardiac Data. : Cardiac Data. 09/04/2022 9:29 EST Cardiovascular WNL . Gastrointestinal Data. : Gastrointestinal Data. 09/04/2022 9:29 EST Last Bowel Movement 09/03/2022 GI WNL Normal Bowel Pattern Daily . Genitourinary Data. : Genitourinary Data. 09/04/2022 9:29 EST WNL . HEENT Data. : HEENT Assessment 09/04/2022 9:29 EST HEENT, Adult WNL . Integumentary Data. : Integumentary Data. 09/04/2022 9:29 EST Skin Integrity Not intact Sensory Perception No impairment Moisture Rarely moist Activity Walks frequently Mobility No limitations Nutrition Adequate Friction and Shear No apparent problem Bobby Score 22 Nursing Care Plan initiated/updated Not applicable Wound Location I Leg, right lower Wound I, Drainage Amount None Wound I, Surrounding Skin Intact Integumentary WNL except . IV Lines. : IV Lines. 09/04/2022 10:18 EST Left Basilic vein 18 gauge Peripheral IV Activity: Discontinue Peripheral IV Assess Compare Touch: A/C/T Done, line D/C'd and or pt discharged Peripheral IV D/C Date/Time: 09/04/2022 10:19 Peripheral IV D/C Reason: Other: removed prior to my shift Peripheral IV Post-Removal: Other: removed prior to my shift Peripheral IV Site Assessment: Other: removed prior to my shift Right Basilic vein 18 gauge Peripheral IV Activity: Discontinue Peripheral IV Assess Compare Touch: A/C/T Done, line D/C'd and or pt discharged Peripheral IV D/C Date/Time: 09/04/2022 10:20 Peripheral IV D/C Reason: Other: removed prior to my shift Peripheral IV Post-Removal: Other: removed prior to my shift Peripheral IV Site Assessment: Other: removed prior to my shift . Musculoskeletal Data. : Musculoskeletal Data. 09/04/2022 9:29 EST Musculoskeletal WNL . Neurological Data. : Neurological Data. 09/04/2022 9:29 EST Neurological Symptoms Tremors Pain Intensity 0 Pain Intensity 0 Neuro WNL except (Modified) . Patient Care Data. : Patient Care Data. 09/04/2022 10:42 EST Glucose Level 119 mg/dL H 09/04/2022 9:29 EST Patient's Stated Goal I just want to go home Turn and Reposition Able to change own position Sequential Compression Device Not ordered TEDS Not indicated/Not ordered ID band on Yes Allergy band in place/verified N/A Blood Pressure/Venipuncture Both arms may be used Call Song in Reach-Ensure Ability to Use Yes Patient Instructed on Use of Call Song Yes Standard Safety Bed alert on, Bed in low position, Non-slip footwear, Upper/Half-length side-rails up, Wheels locked Pt Ed-Learning: Person Taught Patient Pt Ed-Learning: Learning Readiness Yes, alert and oriented Pain system assessment Absence of pain 09/04/2022 8:12 EST Glucose Level 140 mg/dL H . Vital Signs : VITAL SIGNS SECTION 09/04/2022 7:40 EST Early Warning Score 6.00 09/04/2022 7:40 EST Temperature 97.6 DegF Temperature Route Oral Pulse Rate 66 bpm Respiratory Rate 16 br/min Systolic Blood Pressure 115 mm Hg Diastolic Blood Pressure 70 mm Hg Blood pressure sites Arm, right Mean Arterial Pressure 85 mm Hg Pulse Pressure 45 mm Hg Oxygen Saturation 97 % Mode of Delivery (Oxygen) Room air . Pain Data : PAIN SECTION 09/04/2022 9:29 EST Pain Intensity 0 Pain Intensity 0 . Evaluation Pt A+Ox3. Lungs diminished throughout with slight wheeze on the left side, updrafts given and wheeze resolved. No edema +pedal pulses. Pt continent of clear, yellow urine. Abdomen soft, non-tender, non-distended. Last BM 09/03. Pt has RLE scab, no drainage noted. Pt denies any pain. Vitals stable. Pt independently ambulating. Labs improving, pt sent to S3 discharge unit. Report called to MAURICIO Gonzalez.. Discharge Information Pulmonary Rehab Discharge : Pulmonary Rehab Discharge Status 08/31/2022 7:28 EST CPAP/BiPAP Mask Type Full CPAP/BiPAP Mask Size Large * Jenny Echols RN: PERFORM, SIGN, VERIFY Event Display: Progress Note Hospital Authored Date: [id number] Patient: YONATHAN BABB Age: 61 years Sex: Male : 1960 Associated Diagnoses: None Author: Jenny Echols RN Findings Narrative/Incidental PT aox4, denies pain. ready for d/c awaiting for creatinine results.. Discharge Information Pulmonary Rehab Discharge : Pulmonary Rehab Discharge Status 08/31/2022 7:28 EST CPAP/BiPAP Mask Type Full CPAP/BiPAP Mask Size Large * Svitlana ROSS, Damian: PERFORM, MODIFY, MODIFY Event Display: Progress Note Hospital Authored Date: [id number] Patient: ??YONATHAN BABB ? Age:??61 Years?Sex:??Male?:??1960?? Subjective No acute overnight events. ?? I saw the patient bedside this morning.?? He looks and feels well. Review of Systems Denies having??a??headache, sore throat, or runny nose. Denies having any chest pain or palpitations. Denies having shortness of breath,??even including exertion, and has been able to walk??down the hallway??without a problem.?Says his cough??is gone and??Devinitussin is helping with his chest congestion Denies having any nausea, vomiting, and his last bowel movement was today Denies having any dysuria, urgency, frequency Denies having??any pain??elsewhere Objective Vital Signs?? Temperature: 98.2 DegF (09/03/22 08:27:00) Temperature Route: Oral (09/03/22 08:27:00) Pulse Rate: 86 bpm (09/03/22 09:07:00) Respiratory Rate: 18 br/min (09/03/22 10:49:00) Systolic Blood Pressure:??139 mm Hg??High (09/03/22 09:07:00) Diastolic Blood Pressure:??96 mm Hg??High (09/03/22 09:07:00) Blood pressure sites: Arm, right (09/03/22 08:27:00) Mean Arterial Pressure: 110 mm Hg (09/03/22 08:27:00) Pulse Pressure: 43 mm Hg (09/03/22 08:27:00) Oxygen Saturation: 99 % (09/03/22 08:27:00) Mode of Delivery (Oxygen): Room air (09/03/22 08:27:00) Early Warning Score: 1 (09/03/22 10:49:40) ? Intake/Output? 08/31 10:03 09/03 07:00 09/02 06:00 09/01 07:00 08/31 07:00 ?? 09/03 15:50 09/03 15:50 09/03 06:59 09/02 06:59 09/01 06:59 Intake ? 2270.1 ?0 ?720 ?269.5 ? 1280.6 Output ? 4125 ?0 ?400 ?700 ? 3025 Net Total ?-1854.9 ?0 ?320 ? -430.5 ?-1744.4 ? Urine Count ?1 ?0 ?0 ?0 ?1 ? 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 ??The patient was??found to be??hypoxic with an O2 sat of 50% on room air??and??was??admitted for acute hypoxic respiratory failure due to COPD exacerbation.?He was admitted to enter care,??started on??steroids??and put on BiPAP. ??His shortness of breath have resolved, and his oxygen requirements have dramatically increased and now he is on??room air. ??He was also found to have??significantly??uptrending??troponins, concerning for??an NSTEMI, and he was started on a??heparin drip,however after consulting cardiology??the patient was??deemed to have??demand ischemia in the setting of acute CHF exacerbation given that his echo was unchanged compared to the previous one and he remained asymptomatic.? Acute Hypoxic Respiratory Failure - Resolved COPD Exacerbation - Resolved Patient was??tachypneic,??tachycardic, and saturating 50% on??room air??when he was found by EMS. ??Initial VBG showed a??pH of 7 and a??pCO2 of 80.? Patient was placed on BiPAP??and transferred to [facility]. Symptoms??improved significantly, and??O2 requirements resolved, and he is currently on??room air. ?? Given that his??Pro-Gatito was negative, no need for antibiotics. Of note, the patient continues to smoke??5 cigarettes/day at home. ?? Plan:? Continue DuoNebs 4 times a day PRN ??? Continue Breo Ellipta and Spiriva?? (patient is on??Symbicort and Spiriva at home) ??? Continue prednisone??40 mg??daily??for a total of??5 days??(last day Sep 05) ??? Robitussion PRN ? Acute CHF Exacerbation NSTEMI Nonischemic Cardiomyopathy Patient reportedly has cocaine induced nonischemic cardiomyopathy, with a baseline??EF of??10 to 15% in 2021.?? Echo at the time also showed global hypokinesia of the LV,??and moderately to severely reduced right ventricular systolic??dysfunction. Nuclear stress test from the same time showed no isc hemia.?Unclear why the patient was not taking GDMT. Last echo March 2020 ejection fraction 15 to 20% with global hypokinesia of the LV, right ventricular systolic function moderately to severely reduced. On admission: HsTn 56, up trended to 425. NT proBNP-665.??Lactate 7. CXR showing increased reticular??interstitial??lung markings concerning for pulmonary edema. Had an episode of nonsustained V. tach for 20 seconds in the ER-received amiodarone 150 mg IV and 2g of MgSO4?? Evaluated by cardiology, the patient was??deemed to have??demand ischemia in the setting of acute CHF exacerbation given that his echo was unchanged compared to the previous one and he remained asymptomatic. Today he is??euvolemic??on exam,??and denying having any SOB. Plan: - Continue telemetry?? - Continue??ASA and atorvastatin 40 mg - Holding Lasix 40mg p,o daily??in the setting of AMBER - Continue Coreg to??6.25??mg twice daily - Holding valsartan 40mg daily??in the setting of AMBER - Follow up with cardiology outpatient ? Acute Kidney Injury CKD Stage III Patient has a baseline Cr of 1.3-1.4. Etiology possibly prerenal given possible overdiuresis. Plan: - Hold furosemide today - Encourage p.o intake - Follow up BMP - Follow up urine studies ? Chronic stable medical conditions: - Opioid dependence: On??methadone 50 mg daily, dose confirmed with clinic 09/01 ?? - HIV, Hepatitis C: Absolute CD4-228-7 months back, follows with ID clinic. Plan: Continue Biktarvy ? Quality Measures: Diet: Cardiac diet DVT prophylaxis: Heparin TID CODE STATUS: Full code ? Patient has been??seen and discussed with Dr. Ravinder Salgado??MD [facility] ?? Portable XR Chest Views * BHSPowerscribe , CIS S: TRANSCRIBE Jeremy ROSS , Sharon M: VERIFY Event Display: Result: Authored Date: [id number] Examination: Portable chest performed on 08/31/2022. History: Shortness of breath. Findings: A frontal view of the chest is submitted without comparison. The cardiac silhouette is within normal limits for size. The lungs are hyperinflated. Reticular increased interstitial lung markings are noted bilaterally. There is a trace right pleural effusion. Leftward curvature within the spine could be positional. IMPRESSION: Increased reticular interstitial lung markings which may be secondary to pulmonary edema. Trace right pleural effusion. WSN: [id number] Ordering Physician: Lanre Garcia Dictated By: Sharon Luna MD Dictated Date/Time: 08/31/22 8:31 am Reviewed By: Sharon Luna MD Signed By: Sharon Luna MD Signed Date/Time: 08/31/22 8:31 am Transcribed By: CSYarely Transcribed Date/Time: 08/31/22 8:30 am Patient Care team information Care Team Personnel Name: Jenny Echols RN Position: [facility] RN Member Role: Primary Care Nurse Name: Ruy Mack DO Position: [facility] Renal MD Member Role: Lifetime Consulting Physician Address: Address: [address] [place], [place] [address] [place] [address]- Name: Joan Reilly MD Position: [facility] Infectious Disease MD Member Role: Lifetime Consulting Physician Address: Address: [address] [place] [address] [place] [address]- Name: Dora Ho Position: [facility] Outreach Member Role: Lifetime Consulting Physician Name: Lisa Cotto RN Position: [facility] RN Member Role: Primary Care Nurse Name: Loreta Bhagat MD Position: Reference Physician Member Role: PCP Address: Address: [address] [place] [address]- Name: Ariana CHOW Attending Position: [facility] ED Medicine MD Name: Leni Kiser RN Position: [facility] ED RN W/OE and Tasks Member Role: Patient Care Provider Name: Mik Flores Position: [facility] ED TA [facility] Member Role: Patient Care Provider Name: Malik Valencia Position: [facility] ED OA Charge Member Role: ED Associate Name: Kyung Rush MD Position: [facility] Resident Member Role: ED Resident Address: Address: [address] [place] [address] [place] [address]- Care Team Related Persons Name: YONATHAN BABB Address: home [address] [address]
--- OUTSIDE RECORDS SUMMARY | 2024-03-29 08:04 | XMS_ITS | Continuity of Care Document ---
Author Organization [facility] Address [address] [place] [address]- Care Team Providers Care Lollypop Machine Operator Name Role Phone Leola ROSS, Loreta Primary Care Physician [phone] [place] [facility] [place]05[place]23 - 09/17/23 [facility] [address] [place] [id number] Attending Physician: Joan Reilly MD Admitting Physician: Joan Reilly MD Referring Physician: Loreta Bhagat MD Allergies, Adverse Reactions, Alerts No Known Allergies Immunizations Given and Recorded Vaccine Date Status Refusal Reason tetanus-diphtheria toxoids (Td) 11/11/22 Given tetanus/diphtheria/pertussis, acel(Tdap) 10/13/22 Recorded tetanus/diphtheria/pertussis, acel(Tdap) 12/08/12 Recorded tetanus/diphtheria/pertussis, acel(Tdap) 12/07/12 Recorded [id number] 12y+ bivalent booster vax 08/25/22 Recorded zoster vaccine, inactivated 1 05/20/22 Given zoster vaccine, inactivated 2 01/21/22 Given SARS-CoV-2 mRNA ([id number]) vax 12/10/21 Recorded pneumococcal 23-valent vaccine 09/10/21 [...] Maintenance, 04/04/20 13:14:00 EDT,Route to Pharmacy Electronically, [facility], 173, cm, 04/04/20 8:30:00 EDT, Height, 60, kg, 03/28/20 16:33:00 EDT, Dry Weight Start Date: 04/04/20 Status: Ordered atorvastatin 40 mg oral tablet 1 tablet = 40 mg, By Mouth, Daily at bedtime, # 30 tablet, 0 Refills, Maintenance, 04/04/20 13:14:00 EDT, Tablet, [facility], 173, cm, 04/04/20 8:30:00 EDT, Height, 60, kg, 03/28/20 16:33:00 EDT, Dry Weight Start Date: 04/04/20 Status: Ordered Biktarvy oral tablet See Instructions, TOME FRANCIS TABLETA TODOS [place], # 30 tablet, 5 Refills, Maintenance, 07/05/23 16:31:00 EST, [id number], 30, TOME FRANCIS TABLETA TODOS [place], 172.7, cm, 04/05/23 10:37:00 EDT, Height, 69, kg, 01/21/23 18:18:00 EDT, Dry Weight Start Date: 07/05/23 Status: Ordered carvedilol 6.25 mg oral tablet See Instructions, 1 tablet By Mouth 2 times a day, # 60 tablet, Refills 2, Tot. Refills 2, Maintenance, 10/14/22 13:17:00 EST, Instructions Replace Required Details, Route to Pharmacy Electronically,[facility]/pharmacy #[id number], Partial fill upon patient reque... Start Date: 10/14/22 Status: Ordered Coreg 6.25 mg oral tablet 6.25 mg, 1, tablet, By Mouth, 2 times a day, # 60 tablet, Refills 0, Tot. Refills 0, Maintenance, 04/04/20 13:14:00 EDT, Route to Pharmacy Electronically, [facility], 173, cm, 04/04/20 8:30:00 EDT, Height, 60, kg, 03/28/20 16:33:00 EDT,... Start Date: 04/04/20 Status: Ordered Entresto 49 mg-51 mg oral tablet See Instructions, 1 tablet By Mouth 2 times a day. note dose increase, # 30 tablet, 11 Refills, Maintenance, 04/05/23 10:51:00 EDT, [facility]/pharmacy #[id number], Partial fill upon patient request if the prescription is for a schedule II opioid drug., 1 tablet B... Start Date: 04/05/23 Status: Ordered Farxiga 10 mg oral tablet See Instructions, take 1 tablet By Mouth Daily., # 30 tablet, 2 Refills, Maintenance, 10/14/22 13:22:00 EST, [facility]/pharmacy #[id number], new start farxiga, 73.8, kg, 08/31/22 15:22:00 EST, Dry Weight Start Date: 10/14/22 Status: Ordered fluticasone 50 mcg/inh nasal spray PUMP 2 SPRAYS INTO EACH NOSTRIL TWICE DAILY FOR 1 WEEK THEN ONCE DAILY NEEDED Start Date: 04/04/20 Status: Ordered fluticasone 50 mcg/inh nasal spray 1 sprays, Nares, Both, Daily in AM, 0 Refills, Maintenance, 02/06/23 9:55:00 EDT, [place], Partial fill upon patient request if the [...] By Mouth, Daily, oral solution; goes to [facility], 0 Refills, Maintenance, 08/31/22 16:53:00 EST, [...] 08/18/23 10:10:00 EST, Route to Pharmacy Electronically, [facility]/pharmacy #[id number], [facility] : note dose decrease please cance... [...] Team Personnel Name: Marilee Rodas RN Position: [facility] RN Member Role: Primary Care Nurse Name: Ivone Galicia RN Position: [facility] RN Member Role: Primary Care Nurse Name: Marilee Chaudhry RN Position: [facility] SN RN Member Role: Primary Care Nurse Name: Nataliia Pulido RN Position: [facility] RN Supv Member Role: Primary Care Nurse Name: Rajani Anderson Position: [facility] RN Member Role: Primary Care Nurse Name: Jenny Echols RN Position: [facility] RN Member Role: Primary Care Nurse Name: Ivone Herrera RN Position: [facility] RN Member Role: Primary Care Nurse Name: Helena Sutton RN Position: [facility] RN Member Role: Primary Care Nurse Name: Ruy Mack DO Position: [facility] Renal MD Member Role: Lifetime Consulting Physician Address: Address: [address] [place] [address] [address] [facility] [place] [address]- Name: Joan Reilly MD Position: [facility] Physician - Infectious Disease Member Role: Lifetime Consulting Physician Address: Address: [address] [place] [address] [place] [address]- Name: Dora Ho Position: [facility] Outreach Member Role: Lifetime Consulting Physician Name: Estefany Russell RN Position: [facility] RN Member Role: Primary Care Nurse Name: Heike Smalls RN Position: S RN Member Role: Primary Care Nurse Name: Lisa Cotto RN Position: S RN Member Role: Primary Care Nurse Name: Loreta Bhagat MD Position: Reference Physician Member Role: PCP Address: Address: [address] [place] [address]- Care Team Related Persons Name: YONATHAN BABB Address: [place] [address] [address]
--- OUTSIDE RECORDS SUMMARY | 2024-03-29 08:04 | XMS_ITS | Continuity of Care Document ---
Author Organization [facility] Address [address] [place] [address]- Care Team Providers Care Operations And Maintenance Supervisor Name Role Phone Leola ROSS, Loreta Primary Care Physician [phone] Encounter [facility] [place] Date(s): 09/02/22 - 10/17/22 [facility] [address] [place] [address]- Attending Physician: Quinn Ang NP Admitting Physician: Quinn Ang NP Allergies, Adverse Reactions, Alerts No Known Allergies Immunizations Given and Recorded Vaccine Date Status Refusal Reason [id number] 12y+ bivalent booster vax 08/25/22 Recorded zoster vaccine, inactivated 1 05/20/22 Given zoster vaccine, inactivated 2 01/21/22 Given SARS-CoV-2 mRNA ([id number]) vax 12/10/21 Recorded pneumococcal 23-valent vaccine 09/10/21 [...] Maintenance, 09/04/22 14:29:00 EST,Route to Pharmacy Electronically, [facility]/pharmacy #[id number], Partial fill upon patient request if the prescription is for a schedule II opioid drug., 73.8, kg... Start Date: 09/04/22 Status: Ordered Biktarvy oral tablet See Instructions, TOME FRANCIS TABLETA [place]OS [place], # 30 tablet, 5 Refills, Maintenance, 05/15/22 12:48:00 EDT, [facility] STORE [id number], 30, TOME FRANCIS TABLETA TODOS [place] Start Date: 05/15/22 Status: Ordered carvedilol 6.25 mg oral tablet See Instructions, 1 tablet By Mouth 2 times a day, # 60 tablet, Refills 2, Tot. Refills 2, Maintenance, 10/14/22 13:17:00 EST, Instructions Replace Required Details, Route to Pharmacy Electronically,[facility]/pharmacy #[id number], Partial fill upon patient reque... Start Date: 10/14/22 Status: Ordered Coreg 6.25 mg oral tablet 6.25 mg, 1, tablet, By Mouth, 2 times a day, # 60 tablet, Refills 0, Tot. Refills 0, Maintenance, 09/04/22 14:29:00 EST, Route to Pharmacy Electronically, [facility]/pharmacy #[id number], Partial fill upon patient request if the prescription is for a schedule II o... Start Date: 09/04/22 Status: Ordered Entresto 24 mg-26 mg oral tablet 1 tablet, By Mouth, 2 times a day, # 60 tablet, 0 Refills, Maintenance, 09/30/22 16:33:00 EST, Tablet, [facility]/pharmacy #[id number], This replaces Valsartan, 1 tablet By Mouth 2 times a day, 73.8, kg, 08/31/2314:22:00 EST, Dry Weight Start Date: 09/30/22 Status: Ordered Farxiga 10 mg oral tablet See Instructions, take 1 tablet By Mouth Daily., # 30 tablet, 2 Refills, Maintenance, 10/14/22 13:22:00 EST, [facility]/pharmacy #[id number], new start farxiga, 73.8, kg, 08/31/22 15:22:00 EST, Dry Weight Start Date: 10/14/22 Status: Ordered furosemide 40 mg oral tablet See Instructions, take 1/2 tab daily, # 30 tablet, Refills 0, Tot. Refills 0, Maintenance, 09/16/2313:05:00 EST, Instructions Replace Required Details, Route to Pharmacy Electronically, [facility]/pharmacy#[id number], Partial fill upon patient request if the pre... Start Date: 09/16/22 Status: Ordered Lipitor 40 mg oral tablet 1 tablet = 40 mg, By Mouth, Daily at bedtime, # 30 tablet, 0 Refills, Maintenance, 09/04/22 14:29:00 EST, Tablet, [facility]/pharmacy #[id number], Partial fill upon patient request if the prescription is for a schedule II opioid drug., 73.8, kg, 08/31/22 15:22:00... Start Date: 09/04/22 Status: Ordered methadone 10 mg/5 mL oral solution = 50 mg, By Mouth, Daily, oral solution; goes to [facility], 0 Refills, Maintenance, 08/31/22 16:53:00 [...] Team Personnel Name: Jenny Echols RN Position: [facility] RN Member Role: Primary Care Nurse Name: Ruy Mack DO Position: [facility] Renal MD Member Role: Lifetime Consulting Physician Address: Address: [address] [place], [place] [address]E [facility] [place] [address]- Name: Joan Reilly MD Position: [facility] Infectious Disease MD Member Role: Lifetime Consulting Physician Address: Address: [address] [place] [address] [place] [address]- Name: Dora Ho Position: [facility] Outreach Member Role: Lifetime Consulting Physician Name: Lisa Cotto RN Position: [facility] RN Member Role: Primary Care Nurse Name: Loreta Bhagat MD Position: Reference Physician Member Role: PCP Address: Address: [address] [place] [address]- Care Team Related Persons Name: YONATHAN BABB Address: home [address] [address]
--- OUTSIDE RECORDS SUMMARY | 2024-03-29 08:04 | XMS_ITS | Continuity of Care Document ---
Author Organization [facility] Address [address] [place] [address]- Care Team Providers Care Crude Tester Name Role Phone Leola ROSS, Loreta Primary Care Physician [phone] Encounter [facility] [place] Date(s): 01/27/23 - 02/26/23 [facility] [address] [place] [address]- Allergies, Adverse Reactions, Alerts No Known Allergies Immunizations Given and Recorded Vaccine Date Status Refusal Reason tetanus-diphtheria toxoids (Td) 11/11/22 Given [id number] 12y+ bivalent booster vax 08/25/22 Recorded zoster vaccine, inactivated 1 05/20/22 Given zoster vaccine, inactivated 2 01/21/22 Given SARS-CoV-2 mRNA ([id number]-[id number]) vax 12/10/21 Recorded pneumococcal 23-valent vaccine 09/10/21 [...] tablet, 0 Refills, Maintenance, 01/26/23 9:00:00 EDT, [facility], Partial fill upon patient [...] oral tablet 1 tablet, By Mouth, Daily, [place] brett tableta todos los mei., # 30 tablet, 5 Refills, Maintenance, 12/04/22 12:22:00 EDT, [facility]/pharmacy #[id number], 1 tablet By Mouth Daily,x30 days,Instr:[place] brett tableta todos los mei., 73.8, kg, [...] Instructions Replace Required Details, Route to Pharmacy Electronically,[facility]/pharmacy #[id number], Partial fill upon patient reque... Start Date: 10/14/22 Status: Ordered Entresto 49 mg-51 mg oral tablet See Instructions, 1 tablet By Mouth 2 times a day. note dose increase, # 60 tablet, 2 Refills, Maintenance, 11/18/22 13:27:00 EDT, [facility]/pharmacy #[id number], Partial fill upon patient request if the prescription is for a schedule II opioid drug., 1 tablet By... Start Date: 11/18/22 Status: Ordered Farxiga 10 mg oral tablet See Instructions, take 1 tablet By Mouth Daily., # 30 tablet, 2 Refills, Maintenance, 10/14/22 13:22:00 EST, [facility]/pharmacy #[id number], new start farxiga, 73.8, kg, 08/31/22 15:22:00 EST, Dry Weight Start Date: 10/14/22 Status: Ordered fluticasone 50 mcg/inh nasal spray 1 sprays, Nares, Both, Daily in AM, 0 Refills, Maintenance, 02/06/23 9:55:00 EDT, [place], Partial fill upon patient request if the prescription is for a schedule II opioid drug. Start Date: 02/06/23 Status: Ordered furosemide 40 mg oral tablet 40 mg, 1, tablet, By Mouth, Daily, Maintenance, 02/06/23 9:57:00 EDT, Partial fill upon patient request if the prescription is for a schedule II opioid drug. Start Date: 02/06/23 Status: Ordered Lipitor 40 mg oral tablet 1 tablet = 40 mg, By Mouth, Daily at bedtime, 0 Refills, Maintenance, 01/25/23 15:38:00 EDT, Tablet, Partial fill upon patient request if the prescription is for a schedule II opioid drug. Start Date: 01/25/23 Status: Ordered methadone 10 mg/5 mL oral solution = 50 mg, By Mouth, Daily, oral solution; goes to [facility], 0 Refills, Maintenance, 08/31/22 16:53:00 [...] 12/28/22 12:31:00 EDT, Route to Pharmacy Electronically, [facility]/pharmacy #[id number], [facility] : note dose decrease please cance... [...] Team Personnel Name: Nataliia Pulido RN Position: [facility] RN Supv Member Role: Primary Care Nurse [...] Care Nurse Name: Ruy Mack DO Position: [facility] Renal MD Member Role: Lifetime Consulting Physician Address: Address: [address] [facility] [place] [address]- [place] Name: Joan Reilly MD Position: [facility] Physician - Infectious Disease Member Role: Lifetime Consulting Physician Address: Address: [address] [facility] [place] [address]- [place] Name: Dora Ho Position: [facility] Outreach Member Role: Lifetime Consulting Physician Name: Estefany Russell RN Position: [facility] RN Member Role: Primary Care Nurse Name: Marilee Burleson RN Position: [facility] RN Member Role: Primary Care Nurse Name: Joseph Song RN Position: [facility] RN Member Role: Primary Care Nurse Name: Heike Smalls RN Position: [facility] RN Member Role: Primary Care Nurse Name: Ning Isidro RN Position: [facility] RN Member Role: Primary Care Nurse Name: Lisa Cotto RN Position: [facility] RN Member Role: Primary Care Nurse Name: Loreta Bhagat MD Position: Reference Physician Member Role: PCP Address: Address: [address] [place] [address]- Care Team Related Persons Name: YONATHAN BABB Address: home [address] [address]
--- OUTSIDE RECORDS SUMMARY | 2024-03-29 08:04 | XMS_ITS | Continuity of Care Document ---
Author Organization [facility] Address [address] [place] [address]- Care Team Providers Care Wholesale Agronomist Name Role Phone Maryjo Reina DO Primary Care Jessica pfeiffer Encounter [facility] [place] Date(s): 10/08/20 - 11/07/20 [facility] [address] [place], [place] [address] Attending Physician: Renny Kennedy Admitting Physician: Renny Kennedy Referring Physician: Admtr, Ar8 Immunizations Given and Recorded Vaccine Date Status Refusal Reason influenza virus vaccine, inactivated 06/14/19 Give n tetanus/diphtheria/pertussis, acel(Tdap) 12/07/12 Recorded pneumococcal 13-valent vaccine 12/07/12 Recorded Medications Biktarvy oral tablet 1 tablet, By Mouth, Daily, # 30 tablet, 5 Refills, Maintenance, 10/09/20 10:08:00 EST, [facility]/pharmacy#[id number], 1 tablet By Mouth Daily,x30 days Start Date: 10/09/20 Stop Date: 04/07/21 Status: Ordered
--- OUTSIDE RECORDS SUMMARY | 2024-03-29 08:04 | XMS_ITS | Continuity of Care Document ---
Author Organization [facility] Infectious Disease Address [address] [place] [address]- Care Team Providers Care Pet Food Deboner Name Role Phone Leola ROSS, Inocencioin Primary Care Physician [phone] Encounter [facility] Date(s): 08/18/23 - 09/17/23 [facility] Infectious Disease [address] [place] [id number] Attending Physician: Renny Kennedy Admitting Physician: AdmRenny zuluaga Referring Physician: AdmtrRenny Allergies, Adverse Reactions, Alerts No Known Allergies Immunizations Given and Recorded Vaccine Date Status Refusal Reason tetanus-diphtheria toxoids (Td) 11/11/22 Given tetanus/diphtheria/pertussis, acel(Tdap) 10/13/22 Recorded tetanus/diphtheria/pertussis, acel(Tdap) 12/08/12 Recorded tetanus/diphtheria/pertussis, acel(Tdap) 12/07/12 Recorded [id number] 12y+ bivalent booster vax 08/25/22 Recorded zoster vaccine, inactivated 1 05/20/22 Given zoster vaccine, inactivated 2 01/21/22 Given SARS-CoV-2 mRNA ([id number]-yhcp-rbjym) vax 12/10/21 Recorded pneumococcal 23-valent vaccine 09/10/21 [...] Maintenance, 04/04/20 13:14:00 EDT,Route to Pharmacy Electronically, [facility], 173, cm, 04/04/20 8:30:00 EDT, Height, 60, kg, 03/28/20 16:33:00 EDT, Dry Weight Start Date: 04/04/20 Status: Ordered atorvastatin 40 mg oral tablet 1 tablet = 40 mg, By Mouth, Daily at bedtime, # 30 tablet, 0 Refills, Maintenance, 04/04/20 13:14:00 EDT, Tablet, [facility], 173, cm, 04/04/20 8:30:00 EDT, Height, 60, kg, 03/28/20 16:33:00 EDT, Dry Weight Start Date: 04/04/20 Status: Ordered Biktarvy oral tablet See Instructions, EMILE FRANCIS TABLETA TODOS [place], # 30 tablet, 5 Refills, Maintenance, 07/05/23 16:31:00 EST, [id number], 30, TOME FRANCIS TABLETA TODOS [place], 172.7, cm, 04/05/23 10:37:00 EDT, Height, 69, kg, 01/21/23 18:18:00 EDT, Dry Weight Start Date: 07/05/23 Status: Ordered carvedilol 6.25 mg oral tablet See Instructions, 1 tablet By Mouth 2 times a day, # 60 tablet, Refills 2, Tot. Refills 2, Maintenance, 10/14/22 13:17:00 EST, Instructions Replace Required Details, Route to Pharmacy Electronically,[facility]/pharmacy #[id number], Partial fill upon patient reque... Start Date: 10/14/22 Status: Ordered Coreg 6.25 mg oral tablet 6.25 mg, 1, tablet, By Mouth, 2 times a day, # 60 tablet, Refills 0, Tot. Refills 0, Maintenance, 04/04/20 13:14:00 EDT, Route to Pharmacy Electronically, [facility], 173, cm, 04/04/20 8:30:00 EDT, Height, 60, kg, 03/28/20 16:33:00 EDT,... Start Date: 04/04/20 Status: Ordered Entresto 49 mg-51 mg oral tablet See Instructions, 1 tablet By Mouth 2 times a day. note dose increase, # 30 tablet, 11 Refills, Maintenance, 04/05/23 10:51:00 EDT, [facility]/pharmacy #[id number], Partial fill upon patient request if the prescription is for a schedule II opioid drug., 1 tablet B... Start Date: 04/05/23 Status: Ordered Farxiga 10 mg oral tablet See Instructions, take 1 tablet By Mouth Daily., # 30 tablet, 2 Refills, Maintenance, 10/14/22 13:22:00 EST, [facility]/pharmacy #[id number], new start farxiga, 73.8, kg, 08/31/22 15:22:00 EST, Dry Weight Start Date: 10/14/22 Status: Ordered fluticasone 50 mcg/inh nasal spray PUMP 2 SPRAYS INTO EACH NOSTRIL TWICE DAILY FOR 1 WEEK THEN ONCE DAILY NEEDED Start Date: 04/04/20 Status: Ordered fluticasone 50 mcg/inh nasal spray 1 sprays, Nares, Both, Daily in AM, 0 Refills, Maintenance, 02/06/23 9:55:00 EDT, [place], Partial fill upon patient request if the [...] EST, Route to Pharmacy Electronically, [facility]/pharmacy #[id number], [facility] : note dose decrease please cance... [...] Personnel Name: Marilee Rodas RN Position: [facility] RN Member Role: Primary Care Nurse Name: Ivone Galicia RN Position: [facility] RN Member Role: Primary Care Nurse Name: Marilee Chaudhry RN Position: [facility] SN RN Member Role: Primary Care Nurse Name: Nataliia Pulido RN Position: [facility] RN Krishna Member Role: Primary Care Nurse Name: Rajani Anderson Position: [facility] RN Member Role: Primary Care Nurse Name: Jenny Echols RN Position: [facility] RN Member Role: Primary Care Nurse Name: Ivone Herrera RN Position: [facility] RN Member Role: Primary Care Nurse Name: Helena Sutton RN Position: [facility] RN Member Role: Primary Care Nurse Name: Ruy Mack DO Position: [facility] Renal MD Member Role: Lifetime Consulting Physician Address: Address: [address] [place], [place] [address] [place] [address]- Name: Joan Reilly MD Position: [facility] Physician - Infectious Disease Member Role: Lifetime Consulting Physician Address: Address: [address] [place] [address] [place] [address] Name: Dora Ho Position: [facility] Outreach Member Role: Lifetime Consulting Physician Name: Estefany Russell RN Position: S RN Member Role: Primary Care Nurse Name: Heike Smalls RN Position: S RN Member Role: Primary Care Nurse Name: Lisa Cotto RN Position: S RN Member Role: Primary Care Nurse Name: Loreta Bhagat MD Position: Reference Physician Member Role: PCP Address: Address: [address] [place] [address]- Care Team Related Persons Name: YONATHAN BABB Address: [address] [address]
--- OUTSIDE RECORDS SUMMARY | 2024-03-29 08:04 | XMS_ITS | Continuity of Care Document ---
Author Organization [facility] Infectious Disease Address [address] [place] [address]- Care Team Providers Care Thermostat Maker Name Role Phone Leola ROSS, Loreta Primary Care Physician [phone] [place] [facility] Date(s): 08/18/23 - 11/19/23 [facility] Infectious Disease [address] [place] [id number] Attending Physician: Joan Reilly MD Admitting Physician: Joan Reilly MD Allergies, Adverse Reactions, Alerts No Known Allergies Immunizations Given and Recorded Vaccine Date Status Refusal Reason tetanus-diphtheria toxoids (Td) 11/11/22 Given tetanus/diphtheria/pertussis, acel(Tdap) 10/13/22 Recorded tetanus/diphtheria/pertussis, acel(Tdap) 12/08/12 Recorded tetanus/diphtheria/pertussis, acel(Tdap) 12/07/12 Recorded [id number] 12y+ bivalent booster vax 08/25/22 Recorded zoster vaccine, inactivated 1 05/20/22 Given zoster vaccine, inactivated 2 01/21/22 Given SARS-CoV-2 mRNA (jbxyewf-bjhy-fhetg) vax 12/10/21 Recorded pneumococcal 23-valent vaccine 09/10/21 [...] Maintenance, 04/04/20 13:14:00 EDT,Route to Pharmacy Electronically, [facility], 173, cm, 04/04/20 8:30:00 EDT, Height, 60, kg, 03/28/20 16:33:00 EDT, Dry Weight Start Date: 04/04/20 Status: Ordered atorvastatin 40 mg oral tablet 1 tablet = 40 mg, By Mouth, Daily at bedtime, # 30 tablet, 0 Refills, Maintenance, 04/04/20 13:14:00 EDT, Tablet, [facility], 173, cm, 04/04/20 8:30:00 EDT, Height, 60, kg, 03/28/20 16:33:00 EDT, Dry Weight Start Date: 04/04/20 Status: Ordered Biktarvy oral tablet See Instructions, JULIANO FRANCIS TABLETA TODOS [place], # 30 tablet, 5 Refills, Maintenance, 07/05/23 16:31:00 EST, [id number], 30, TOME FRANCIS TABLETA TODOS [place], 172.7, cm, 04/05/23 10:37:00 EDT, Height, 69, kg, 01/21/23 18:18:00 EDT, Dry Weight Start Date: 07/05/23 Status: Ordered carvedilol 6.25 mg oral tablet See Instructions, 1 tablet By Mouth 2 times a day, # 60 tablet, Refills 2, Tot. Refills 2, Maintenance, 10/14/22 13:17:00 EST, Instructions Replace Required Details, Route to Pharmacy Electronically,[facility]/pharmacy #[id number], Partial fill upon patient reque... Start Date: 10/14/22 Status: Ordered Coreg 6.25 mg oral tablet 6.25 mg, 1, tablet, By Mouth, 2 times a day, # 60 tablet, Refills 0, Tot. Refills 0, Maintenance, 04/04/20 13:14:00 EDT, Route to Pharmacy Electronically, [facility], 173, cm, 04/04/20 8:30:00 EDT, Height, 60, kg, 03/28/20 16:33:00 EDT,... Start Date: 04/04/20 Status: Ordered Entresto 49 mg-51 mg oral tablet See Instructions, 1 tablet By Mouth 2 times a day. note dose increase, # 30 tablet, 11 Refills, Maintenance, 04/05/23 10:51:00 EDT, [facility]/pharmacy #[id number], Partial fill upon patient request if the prescription is for a schedule II opioid drug., 1 tablet B... Start Date: 04/05/23 Status: Ordered Farxiga 10 mg oral tablet See Instructions, take 1 tablet By Mouth Daily., # 30 tablet, 2 Refills, Maintenance, 10/14/22 13:22:00 EST, [facility]/pharmacy #[id number], new start farxiga, 73.8, kg, 08/31/22 15:22:00 EST, Dry Weight Start Date: 10/14/22 Status: Ordered fluticasone 50 mcg/inh nasal spray PUMP 2 SPRAYS INTO EACH NOSTRIL TWICE DAILY FOR 1 WEEK THEN ONCE DAILY NEEDED Start Date: 04/04/20 Status: Ordered fluticasone 50 mcg/inh nasal spray 1 sprays, Nares, Both, Daily in AM, 0 Refills, Maintenance, 02/06/23 9:55:00 EDT, [place], Partial fill upon patient request if the [...] By Mouth, Daily, oral solution; [facility], 0 Refills, Maintenance, 08/31/22 16:53:00 [...] Route to Pharmacy Electronically, [facility]/pharmacy #[id number], [facility] : note dose decrease please cance... Start [...] Team Personnel Name: Marilee Rodas RN Position: [facility] RN Member Role: Primary Care Nurse Name: Ivone Galicia RN Position: [facility] RN Member Role: Primary Care Nurse Name: Marilee Chaudhry RN Position: [facility] SN RN Member Role: Primary Care Nurse Name: Nataliia Pulido RN Position: [facility] RN Supv Member Role: Primary Care Nurse Name: Rajani Anderson Position: [facility] RN Member Role: Primary Care Nurse Name: Ivone Herrera RN Position: [facility] RN Member Role: Primary Care Nurse Name: Helena Sutton RN Position: [facility] RN Member Role: Primary Care Nurse Name: Ruy Mack DO Position: [facility] Renal MD Member Role: Lifetime Consulting Physician Address: Address: [address] [place], [place] [address] [place] [address]- Name: Joan Reilly MD Position: [facility] Physician - Infectious Disease Member Role: Lifetime Consulting Physician Address: Address: [address] [place] [address] [place] [address] Name: Dora Ho Position: [facility] Outreach Member Role: Lifetime Consulting Physician Name: Heike Smalls RN Position: [facility] RN Member Role: Primary Care Nurse Name: Lisa Cotto RN Position: [facility] RN Member Role: Primary Care Nurse Name: Loreta Bhagat MD Position: Reference Physician Member Role: PCP Address: Address: [address] [place] [address]- Care Team Related Persons Name: YONATHAN BABB Address: home [address] [address]
--- OUTSIDE RECORDS SUMMARY | 2024-03-29 08:04 | XMS_ITS | Continuity of Care Document ---
Author Organization [facility] Infectious Disease Address [address] [place] [address]- Care Team Providers Care Director Of Workforce Development Name Role Phone Leola ROSS, Loreta Primary Care Physician Encounter [facility] Date(s): 11/11/22 - 12/11/22 [facility] Infectious Disease [address] [place] [id number] Attending Physician: Renny Kennedy Admitting Physician: Renny Kennedy Referring Physician: AdmtrRenny Allergies, Adverse Reactions, Alerts No Known Allergies Immunizations Given and Recorded Vaccine Date Status Refusal Reason tetanus-diphtheria toxoids (Td) 11/11/22 Given [id number] 12y+ bivalent booster vax 08/25/22 Recorded zoster vaccine, inactivated 1 05/20/22 Given zoster vaccine, inactivated 2 01/21/22 Given SARS-CoV-2 mRNA (vlnrmxs-qcdl-wjalv) vax 12/10/21 Recorded pneumococcal 23-valent vaccine 09/10/21 [...] Maintenance, 12/02/22 13:45:00 EDT,Route to Pharmacy Electronically, [facility]/pharmacy #[id number], Partial fill upon patient request if the prescription is for a schedule II opioid drug., 73.8, kg... Start Date: 12/02/22 Status: Ordered Biktarvy oral tablet 1 tablet, By Mouth, Daily, [place] tableta [place]., # 30 tablet, 5 Refills, Maintenance, 12/04/22 12:22:00 EDT, [facility]/pharmacy #[id number], 1 tablet By Mouth Daily,x30 days,Instr:[place] tableta todos [place]., 73.8, kg, 08/31/22 15:22:00 EST, Dry... Start Date: 12/04/22 Stop Date: 06/02/23 Status: Ordered carvedilol 6.25 mg oral tablet See Instructions, 1 tablet By Mouth 2 times a day, # 60 tablet, Refills 2, Tot. Refills 2, Maintenance, 10/14/22 13:17:00 EST, Instructions Replace Required Details, Route to Pharmacy Electronically,[facility]/pharmacy #[id number], Partial fill upon patient reque... Start Date: 10/14/22 Status: Ordered Entresto 49 mg-51 mg oral tablet See Instructions, 1 tablet By Mouth 2 times a day. note dose increase, # 60 tablet, 2 Refills, Maintenance, 11/18/22 13:27:00 EDT, [facility]/pharmacy #[id number], Partial fill upon patient request if the prescription is for a schedule II opioid drug., 1 tablet By... Start Date: 11/18/22 Status: Ordered Farxiga 10 mg oral tablet See Instructions, take 1 tablet By Mouth Daily., # 30 tablet, 2 Refills, Maintenance, 10/14/22 13:22:00 EST, [facility]/pharmacy #[id number], new start farxiga, 73.8, kg, 08/31/22 15:22:00 EST, Dry Weight Start Date: 10/14/22 Status: Ordered furosemide 40 mg oral tablet See Instructions, take 1/2 tab daily, # 30 tablet, Refills 0, Tot. Refills 0, Maintenance, 09/16/2313:05:00 EST, Instructions Replace Required Details, Route to Pharmacy Electronically, [facility]/pharmacy#[id number], Partial fill upon patient request if the pre... Start Date: 09/16/22 Status: Ordered Lipitor 40 mg oral tablet 1 tablet = 40 mg, By Mouth, Daily at bedtime, # 90 tablet, 3 Refills, Maintenance, 12/02/22 13:45:00 EDT, Tablet, [facility]/pharmacy #[id number], Partial fill upon patient request if the prescription is for a schedule II opioid drug., 73.8, kg, 08/31/22 15:22:00... Start Date: 12/02/22 Status: Ordered methadone 10 mg/5 mL oral solution = 50 mg, By Mouth, Daily, oral solution; goes to [facility], 0 Refills, Maintenance, 08/31/22 16:53:00 EST, Partial [...] Status: Ordered spironolactone 25 mg oral tablet See Instructions, 1 tablet By Mouth Daily, [facility] note dose increase, # 30 tablet, Refills 2, Tot. Refills 2, Maintenance, 12/09/22 13:43:00 EDT, Instructions Replace Required Details, Route to PharmacyElectronically, [facility]/pharmacy #[id number], Partial fill up... Start Date: 12/09/22 Status: Ordered Social History Social History Type Response Smoking Status 5-9 cigarettes (betw een 1/4 to 1/2 pack)/day in last 30 days entered on: 09/10/21 Sex Laboratory * Event Display: Non Lab Results Authored Date: [id number] Patient Care team information Care Team Personnel Name: Jenny Echols RN Position: [facility] RN Member Role: Primary Care Nurse Name: Ruy Mack DO Position: [facility] Renal MD Member Role: Lifetime Consulting Physician Address: Address: [address] [place] [address] [address] [facility] [place] [address]- Name: Joan Reilly MD Position: [facility] Infectious Disease MD Member Role: Lifetime Consulting Physician Address: Address: [address] [place] [address] [place] [address]- Name: Dora Ho Position: [facility] Outreach Member Role: Lifetime Consulting Physician Name: Lisa Cotto RN Position: [facility] RN Member Role: Primary Care Nurse Name: Loreta Bhagat MD Position: Reference Physician Member Role: PCP Address: Address: [address] [place] [address]- Care Team Related Persons Name: YONATHAN BABB Address: [place] [address] [address]
--- OUTSIDE RECORDS SUMMARY | 2024-03-29 08:04 | XMS_ITS | Continuity of Care Document ---
Author Organization [facility] Infectious Disease Address [address] [place] [address]- Care Team Providers Care Pt Sitter Name Role Phone Leola ROSS, [facility] Primary Care Physician Encounter [facility] Date(s): 01/04/24 - 02/03/24 [facility] Infectious Disease [address] [place] [id number] Allergies, Adverse Reactions, Alerts No Known Allergies Immunizations Given and Recorded Vaccine Date Status Refusal Reason tetanus-diphtheria toxoids (Td) 11/11/22 Given tetanus/diphtheria/pertussis, acel(Tdap) 10/13/22 Recorded tetanus/diphtheria/pertussis, acel(Tdap) 12/08/12 Recorded tetanus/diphtheria/pertussis, acel(Tdap) 12/07/12 Recorded [id number] 12y+ bivalent booster vax 08/25/22 Recorded zoster vaccine, inactivated 1 05/20/22 Given zoster vaccine, inactivated 2 01/21/22 Given SARS-CoV-2 mRNA (qlsmywl-jtfj-gpgup) vax 12/10/21 Recorded pneumococcal 23-valent vaccine 09/10/21 [...] Maintenance, 04/04/20 13:14:00 EDT,Route to Pharmacy Electronically, [facility], 173, cm, 04/04/20 8:30:00 EDT, Height, 60, kg, 03/28/20 16:33:00 EDT, Dry Weight Start Date: 04/04/20 Status: Ordered atorvastatin 40 mg oral tablet 1 tablet = 40 mg, By Mouth, Daily at bedtime, # 30 tablet, 0 Refills, Maintenance, 04/04/20 13:14:00 EDT, Tablet, [facility], 173, cm, 04/04/20 8:30:00 EDT, Height, 60, kg, 03/28/20 16:33:00 EDT, Dry Weight Start Date: 04/04/20 Status: Ordered Biktarvy oral tablet See Instructions, EMILE FRANCIS TABLETA [place] [place], # 30 tablet, 5 Refills, Maintenance, 07/05/23 16:31:00 EST, [id number], 30, TOME FRANCIS TABLETA TOD[place], 172.7, cm, 04/05/23 10:37:00 EDT, Height, 69, kg, 01/21/23 18:18:00 EDT, Dry Weight Start Date: 07/05/23 Status: Ordered carvedilol 6.25 mg oral tablet See Instructions, 1 tablet By Mouth 2 times a day, # 60 tablet, Refills 2, Tot. Refills 2, Maintenance, 10/14/22 13:17:00 EST, Instructions Replace Required Details, Route to Pharmacy Electronically,[facility]/pharmacy #[id number], Partial fill upon patient reque... Start Date: 10/14/22 Status: Ordered Coreg 6.25 mg oral tablet 6.25 mg, 1, tablet, By Mouth, 2 times a day, # 60 tablet, Refills 0, Tot. Refills 0, Maintenance, 04/04/20 13:14:00 EDT, Route to Pharmacy Electronically, [facility], 173, cm, 04/04/20 8:30:00 EDT, Height, 60, kg, 03/28/20 16:33:00 EDT,... Start Date: 04/04/20 Status: Ordered Entresto 49 mg-51 mg oral tablet See Instructions, 1 tablet By Mouth 2 times a day. note dose increase, # 30 tablet, 11 Refills, Maintenance, 04/05/23 10:51:00 EDT, [facility]/pharmacy #[id number], Partial fill upon patient request if the prescription is for a schedule II opioid drug., 1 tablet B... Start Date: 04/05/23 Status: Ordered Farxiga 10 mg oral tablet See Instructions, take 1 tablet By Mouth Daily., # 30 tablet, 2 Refills, Maintenance, 10/14/22 13:22:00 EST, [facility]/pharmacy #[id number], new start farxiga, 73.8, kg, 08/31/22 15:22:00 EST, Dry Weight Start Date: 10/14/22 Status: Ordered fluticasone 50 mcg/inh nasal spray PUMP 2 SPRAYS INTO EACH NOSTRIL TWICE DAILY FOR 1 WEEK THEN ONCE DAILY NEEDED Start Date: 04/04/20 Status: Ordered fluticasone 50 mcg/inh nasal spray 1 sprays, Nares, Both, Daily in AM, 0 Refills, Maintenance, 02/06/23 9:55:00 EDT, [place], Partial fill upon patient request if the [...] By Mouth, Daily, oral solution; goes to [facility], 0 Refills, Maintenance, 08/31/22 16:53:00 EST, Partial [...] 08/18/23 10:10:00 EST, Route to Pharmacy Electronically, [facility]/pharmacy #[id number], [facility] : note dose decrease please cance... [...] Team Personnel Name: Marilee Rodas RN Position: [facility] RN Member Role: Primary Care Nurse Name: Ivone Galicia RN Position: [facility] RN Member Role: Primary Care Nurse Name: Marilee Chaudhry RN Position: [facility] SN RN Member Role: Primary Care Nurse Name: Nataliia Pulido RN Position: [facility] RN Supv Member Role: Primary Care Nurse Name: Irvin Painter RN Position: [facility] RN Supv Member Role: Primary Care Nurse Name: Rajani Anderson RN Position: [facility] RN Member Role: Primary Care Nurse Name: Helena Sutton RN Position: [facility] RN Member Role: Primary Care Nurse Name: Ruy Mack DO Position: [facility] Renal MD Member Role: Lifetime Consulting Physician Address: Address: [address] [place], [place] [address] [place] [address]- Name: Joan Reilly MD Position: [facility] Physician - Infectious Disease Member Role: Lifetime Consulting Physician Address: Address: [address] [place] [address] [place] [address]- [place] Name: Dora Ho Position: [facility] Outreach Member Role: Lifetime Consulting Physician Name: Heike Smalls RN Position: [facility] RN Member Role: Primary Care Nurse Name: Lisa Cotto RN Position: [facility] RN Member Role: Primary Care Nurse Name: Loreta Bhagat MD Position: Reference Physician Member Role: PCP Address: Address: [address] [place] [address]- Care Team Related Persons Name: YONATHAN BABB Address: home [address] [address]
--- OUTSIDE RECORDS SUMMARY | 2024-03-29 08:04 | XMS_ITS | Continuity of Care Document ---
Author Organization [facility] Address [address] [place] [address]- Care Team Providers Care Belt Builder Name Role Phone Leola ROSS, Loreta Primary Care Physician En[place] [facility] [facility] [place] Date(s): 04/05/23 - 05/05/23 [facility] [address] [place] [address]- Attending Physician: Renny Kennedy Admitting Physician: Renny Kennedy Referring Physician: Renny Kennedy Allergies, Adverse Reactions, Alerts No Known Allergies Immunizations Given and Recorded Vaccine Date Status Refusal Reason tetanus-diphtheria toxoids (Td) 11/11/22 Given [id number] 12y+ bivalent booster vax 08/25/22 Recorded zoster vaccine, inactivated 1 05/20/22 Given zoster vaccine, inactivated 2 01/21/22 Given SARS-CoV-2 mRNA (suklazr-ulvk-czqsa) vax 12/10/21 Recorded pneumococcal 23-valent vaccine 09/10/21 [...] Maintenance, 04/04/20 13:14:00 EDT,Route to Pharmacy Electronically, [facility], 173, cm, 04/04/20 8:30:00 EDT, Height, 60, kg, 03/28/20 16:33:00 EDT, Dry Weight Start Date: 04/04/20 Status: Ordered atorvastatin 40 mg oral tablet 1 tablet = 40 mg, By Mouth, Daily at bedtime, # 30 tablet, 0 Refills, Maintenance, 04/04/20 13:14:00 EDT, Tablet, [facility], 173, cm, 04/04/20 8:30:00 EDT, Height, 60, kg, 03/28/20 16:33:00 EDT, Dry Weight Start Date: 04/04/20 Status: Ordered Biktarvy oral tablet 1 tablet, By Mouth, Daily, [place] brett tableta todos los mei., # 30 tablet, 5 Refills, Maintenance, 12/04/22 12:22:00 EDT, [facility]/pharmacy #[id number], 1 tablet By Mouth Daily,x30 days,Instr:[place] brett tableta todos los mei., 73.8, kg, 08/31/22 15:22:00 EST, Dry... Start Date: 12/04/22 Stop Date: 06/02/23 Status: Ordered Biktarvy oral tablet 1 tablet, By Mouth, Daily, # 30 tablet, 0 Refills, Maintenance, 02/09/20 9:17:00 EDT, Tablet Start Date: 02/09/20 Status: Ordered Biktarvy oral tablet JULIANO WOOD LOS D Start Date: 04/04/20 Status: Ordered carvedilol 6.25 mg oral tablet See Instructions, 1 tablet By Mouth 2 times a day, # 60 tablet, Refills 2, Tot. Refills 2, Maintenance, 10/14/22 13:17:00 EST, Instructions Replace Required Details, Route to Pharmacy Electronically,[facility]/pharmacy #[id number], Partial fill upon patient reque... Start Date: 10/14/22 Status: Ordered Coreg 6.25 mg oral tablet 6.25 mg, 1, tablet, By Mouth, 2 times a day, # 60 tablet, Refills 0, Tot. Refills 0, Maintenance, 04/04/20 13:14:00 EDT, Route to Pharmacy Electronically, [facility], 173, cm, 04/04/20 8:30:00 EDT, Height, 60, kg, 03/28/20 16:33:00 EDT,... Start Date: 04/04/20 Status: Ordered Entresto 49 mg-51 mg oral tablet See Instructions, 1 tablet By Mouth 2 times a day. note dose increase, # 30 tablet, 11 Refills, Maintenance, 04/05/23 10:51:00 EDT, [facility]/pharmacy #[id number], Partial fill upon patient request [...] AM, 0 Refills, Maintenance, 02/06/23 9:55:00 EDT, [place], Partial fill upon patient request if the prescription is for a schedule II opioid drug. Start Date: 02/06/23 Status: Ordered Incruse Ellipta 62.5 mcg/inh inhalation powder TOME BRETT INHALACI N POR V A ORAL TODOS [...] Daily, oral solution; goes to [facility], 0 Refills, Maintenance, 08/31/22 16:53:00 EST, Partial [...] 12/28/22 12:31:00 EDT, Route to Pharmacy Electronically, [facility]/pharmacy #[id number], [facility] : note dose decrease please cance... [...] Care team information Care Team Personnel Name: Ivone Galicia RN Position: [facility] RN Member Role: Primary Care Nurse Name: Marilee Chaudhry RN Position: [facility] SN RN Member Role: Primary Care Nurse Name: Nataliia Pulido RN Position: [facility] RN Suptiki Member Role: Primary Care Nurse Name: Irvin Painter RN Position: [facility] RN Member Role: Primary Care Nurse Name: Rajani Anderson Position: [facility] RN Member Role: Primary Care Nurse Name: Jenny Echols RN Position: [facility] RN Member Role: Primary Care Nurse Name: Ivone Herrera RN Position: [facility] RN Member Role: Primary Care Nurse Name: Helena Sutton RN Position: [facility] RN Member Role: Primary Care Nurse Name: Ruy Mack DO Position: [facility] Renal MD Member Role: Lifetime Consulting Physician Address: Address: [address] [place] [address] [address] [facility] [place] [address]- Name: Joan Reilly MD Position: [facility] Physician - Infectious Disease Member Role: Lifetime Consulting Physician Address: Address: [address] [place] [address] [place] [address]- Name: Dora Ho Position: [facility] Outreach Member Role: Lifetime Consulting Physician Name: Estefany Russell RN Position: [facility] RN Member Role: Primary Care Nurse Name: Marilee Burleson RN Position: [facility] RN Member Role: Primary Care Nurse Name: Joseph Song RN Position: [facility] RN Member Role: Primary Care Nurse Name: Heike Smalls RN Position: [facility] RN Member Role: Primary Care Nurse Name: Ning Isidro RN Position: [facility] RN Member Role: Primary Care Nurse Name: Lisa Cotto RN Position: [facility] RN Member Role: Primary Care Nurse Name: Loreta Bhagat MD Position: Reference Physician Member Role: PCP Address: Address: [address] [place] [address]- Care Team Related Persons Name: YONATHAN BABB Address: home [address] [address]
--- OUTSIDE RECORDS SUMMARY | 2024-03-29 08:04 | XMS_ITS | Patient Health Record ---
Author Organization [facility] Address [address], [place] [id number] Care Team Providers Care Demurrage Worker Name Role Phone No, PCP Primary Care Provider Humberto Lyon Unavailable [phone] REASON FOR REFERRAL No Information SOCIAL HISTORY Sex Assigned At : Social History Observation Description Sex Assigned At Unknown PLAN OF TREATMENT No Information Insurance Providers Payer Name Payer Address Payer Phone Subscriber Number Group Number Insured Name Patient Relationship to Insured Coverage Start Date Coverage End Date [facility] Plan [address] [address] [place] [address] [id number] Earl Rincon Self - patient is the insured 2
--- OUTSIDE RECORDS SUMMARY | 2024-03-29 08:04 | XMS_ITS | Continuity of Care Document ---
Author Organization [facility] Address [address] [place] [address]- Care Team Providers Care Kitchen Runner Name Role Phone Leola ROSS, Inocenciooh Primary Care Physician [phone] [id number] Date(s): 05/15/22 - 06/14/22 [facility] [address]- Allergies, Adverse Reactions, Alerts No Known Allergies Immunizations Given and Recorded Vaccine Date Status Refusal Reason zoster vaccine, inactivated 1 05/20/22 Given zoster vaccine, inactivated 2 01/21/22 Given SARS-CoV-2 mRNA (yevrlie-hiop-eprog) vax 12/10/21 Recorded pneumococcal 23-valent vaccine 09/10/21 [...] Ordered Biktarvy oral tablet See Instructions, JULIANO FELIPE TOGREENE LOPEZ, # 30 tablet, 5 Refills, Maintenance, 05/15/22 12:48:00 EDT, [id number], 30, JULIANO LOPEZ Start Date: 05/15/22 Status: Ordered ledipasvir-sofosbuvir 90 mg-400 mg oral tablet 1 tablet, By Mouth, Daily, for 28 days, DO NOT start first bottle until your appointment with Nurse., # 28 tablet, 2 Refills, Acute 08/24/22 10:29:00 EST, 06/01/22 10:29:00 EDT, Tablet, [facility] obtained and approved 05/29/2022... Start Date: 06/01/22 [...] on: 09/10/21 Sex Patient Care team information Personnel Name: Leola ROSS, Loreta Address: Address: [address] [place] [address]
--- OUTSIDE RECORDS SUMMARY | 2024-03-29 08:04 | XMS_ITS | Continuity of Care Document ---
Author Organization [facility] Address [address] [place] [address]- Care Team Providers Care Press Department Manager Name Role Phone Loreta Bhagat MD Primary Care Physician [phone] Encounter [facility] Date(s): 12/02/22 - 01/08/23 [facility] [address] [place] [address]- Attending Physician: Ankush Walker PharmD Admitting Physician: Aaron HarleyD, Ankush Referring Physician: Loreta Bhagat MD Allergies, Adverse Reactions, Alerts No Known Allergies Immunizations Given and Recorded Vaccine Date Status Refusal Reason tetanus-diphtheria toxoids (Td) 11/11/22 Given [id number] 12y+ bivalent booster vax 08/25/22 Recorded zoster vaccine, inactivated 1 05/20/22 Given zoster vaccine, inactivated 2 01/21/22 Given SARS-CoV-2 mRNA (ewyabmy-yzvz-bbrpn) vax 12/10/21 Recorded pneumococcal 23-valent vaccine 09/10/21 [...] Maintenance, 12/02/22 13:45:00 EDT,Route to Pharmacy Electronically, [facility]/pharmacy #[id number], Partial fill upon patient request if the prescription is for a schedule II opioid drug., 73.8, kg... Start Date: 12/02/22 Status: Ordered Biktarvy oral tablet 1 tablet, By Mouth, Daily, [place] brett tableta todos los mei., # 30 tablet, 5 Refills, Maintenance, 12/04/22 12:22:00 EDT, [facility]/pharmacy #[id number], 1 tablet By Mouth Daily,x30 days,Instr:[place] brett tableta todos los mei., 73.8, kg, 08/31/22 15:22:00 EST, Dry... Start Date: 12/04/22 Stop Date: 06/02/23 Status: Ordered carvedilol 6.25 mg oral tablet See Instructions, 1 tablet By Mouth 2 times a day, # 60 tablet, Refills 2, Tot. Refills 2, Maintenance, 10/14/22 13:17:00 EST, Instructions Replace Required Details, Route to Pharmacy Electronically,[facility]/pharmacy #[id number], Partial fill upon patient reque... Start Date: 10/14/22 Status: Ordered Entresto 49 mg-51 mg oral tablet See Instructions, 1 tablet By Mouth 2 times a day. note dose increase, # 60 tablet, 2 Refills, Maintenance, 11/18/22 13:27:00 EDT, [facility]/pharmacy #[id number], Partial fill upon patient request if the prescription is for a schedule II opioid drug., 1 tablet By... Start Date: 11/18/22 Status: Ordered Farxiga 10 mg oral tablet See Instructions, take 1 tablet By Mouth Daily., # 30 tablet, 2 Refills, Maintenance, 10/14/22 13:22:00 EST, [facility]/pharmacy #[id number], new start farxiga, 73.8, kg, 08/31/22 15:22:00 EST, Dry Weight Start Date: 10/14/22 Status: Ordered furosemide 40 mg oral tablet See Instructions, take 1/2 tab daily, # 30 tablet, Refills 0, Tot. Refills 0, Maintenance, 09/16/2313:05:00 EST, Instructions Replace Required Details, Route to Pharmacy Electronically, [facility]/pharmacy#[id number], Partial fill upon patient request if the pre... Start Date: 09/16/22 Status: Ordered Lipitor 40 mg oral tablet 1 tablet = 40 mg, By Mouth, Daily at bedtime, # 90 tablet, 3 Refills, Maintenance, 12/02/22 13:45:00 EDT, Tablet, [facility]/pharmacy #[id number], Partial fill upon patient request if the prescription is for a schedule II opioid drug., 73.8, kg, 08/31/22 15:22:00... Start Date: 12/02/22 Status: Ordered methadone 10 mg/5 mL oral solution = 50 mg, By Mouth, Daily, oral solution; goes to [facility], 0 Refills, Maintenance, 08/31/22 16:53:00 EST, [...] 12/28/22 12:31:00 EDT, Route to Pharmacy Electronically, [facility]/pharmacy #[id number], [facility] : note dose decrease please cance... Start Date: 12/28/22 Status: Ordered Social History Social History Type Response Smoking Status 5-9 cigarettes (betw een 1/4 to 1/2 pack)/day in last 30 days entered on: 09/10/21 Sex Patient Care team information Care Team Personnel Name: Ruy Mack DO Position: [facility] Renal MD Member Role: Lifetime Consulting Physician Address: Address: [address] [place] [address] [address] [facility] [place] [address]- Name: Joan Reilly MD Position: [facility] Physician - Infectious Disease Member Role: Lifetime Consulting Physician Address: Address: [address] [place] [address] [place] [address]- Name: Dora Ho Position: [facility] Outreach Member Role: Lifetime Consulting Physician Name: Lisa Cotto RN Position: [facility] RN Member Role: Primary Care Nurse Name: Loreta Bhagat MD Position: Reference Physician Member Role: PCP Address: Address: [address] [place] [address]- Care Team Related Persons Name: YONATHAN BABB Address: home [address] [address]
--- OUTSIDE RECORDS SUMMARY | 2024-03-29 08:04 | XMS_ITS | Continuity of Care Document ---
Author Organization [facility] Address [address] [place] [address]- Care Team Providers Care Rock Crusher Operator Name Role Phone Loreta Bhagat MD Primary Care Physician Encounter [facility] Date(s): 07/07/23 - 10/06/23 [facility] [address] [place] [address]- Attending Physician: Erna Maldonado MD Admitting Physician: Erna Maldonado MD Allergies, Adverse Reactions, Alerts No Known Allergies Immunizations Given and Recorded Vaccine Date Status Refusal Reason tetanus-diphtheria toxoids (Td) 11/11/22 Given tetanus/diphtheria/pertussis, acel(Tdap) 10/13/22 Recorded tetanus/diphtheria/pertussis, acel(Tdap) 12/08/12 Recorded tetanus/diphtheria/pertussis, acel(Tdap) 12/07/12 Recorded [id number] 12y+ bivalent booster vax 08/25/22 Recorded zoster vaccine, inactivated 1 05/20/22 Given zoster vaccine, inactivated 2 01/21/22 Given SARS-CoV-2 mRNA (aacbeho-xyvu-mzlmo) vax 12/10/21 Recorded pneumococcal 23-valent vaccine 09/10/21 [...] Maintenance, 04/04/20 13:14:00 EDT,Route to Pharmacy Electronically, [facility], 173, cm, 04/04/20 8:30:00 EDT, Height, 60, kg, 03/28/20 16:33:00 EDT, Dry Weight Start Date: 04/04/20 Status: Ordered atorvastatin 40 mg oral tablet 1 tablet = 40 mg, By Mouth, Daily at bedtime, # 30 tablet, 0 Refills, Maintenance, 04/04/20 13:14:00 EDT, Tablet, [facility], 173, cm, 04/04/20 8:30:00 EDT, Height, 60, kg, 03/28/20 16:33:00 EDT, Dry Weight Start Date: 04/04/20 Status: Ordered Biktarvy oral tablet See Instructions, JULIANO FRANCIS TABLETA TODOS [place]OPEZ, # 30 tablet, 5 Refills, Maintenance, 07/05/23 16:31:00 EST, [id number], 30, TOME FRANCIS TABLETA TODOS [place] LOPEZ, 172.7, cm, 04/05/23 10:37:00 EDT, Height, 69, kg, 01/21/23 18:18:00 EDT, Dry Weight Start Date: 07/05/23 Status: Ordered carvedilol 6.25 mg oral tablet See Instructions, 1 tablet By Mouth 2 times a day, # 60 tablet, Refills 2, Tot. Refills 2, Maintenance, 10/14/22 13:17:00 EST, Instructions Replace Required Details, Route to Pharmacy Electronically,[facility]/pharmacy #[id number], Partial fill upon patient reque... Start Date: 10/14/22 Status: Ordered Coreg 6.25 mg oral tablet 6.25 mg, 1, tablet, By Mouth, 2 times a day, # 60 tablet, Refills 0, Tot. Refills 0, Maintenance, 04/04/20 13:14:00 EDT, Route to Pharmacy Electronically, [facility], 173, cm, 04/04/20 8:30:00 EDT, Height, 60, kg, 03/28/20 16:33:00 EDT,... Start Date: 04/04/20 Status: Ordered Entresto 49 mg-51 mg oral tablet See Instructions, 1 tablet By Mouth 2 times a day. note dose increase, # 30 tablet, 11 Refills, Maintenance, 04/05/23 10:51:00 EDT, [facility]/pharmacy #[id number], Partial fill upon patient request if the prescription is for a schedule II opioid drug., 1 tablet B... Start Date: 04/05/23 Status: Ordered Farxiga 10 mg oral tablet See Instructions, take 1 tablet By Mouth Daily., # 30 tablet, 2 Refills, Maintenance, 10/14/22 13:22:00 EST, [facility]/pharmacy #[id number], new start farxiga, 73.8, kg, 08/31/22 15:22:00 EST, Dry Weight Start Date: 10/14/22 Status: Ordered fluticasone 50 mcg/inh nasal spray PUMP 2 SPRAYS INTO EACH NOSTRIL TWICE DAILY FOR 1 WEEK THEN ONCE DAILY NEEDED Start Date: 04/04/20 Status: Ordered fluticasone 50 mcg/inh nasal spray 1 sprays, Nares, Both, Daily in AM, 0 Refills, Maintenance, 02/06/23 9:55:00 EDT, [place], Partial fill upon patient request if the [...] By Mouth, Daily, oral solution; goes to [facility], 0 Refills, Maintenance, 08/31/22 16:53:00 EST, [...] 10:10:00 EST, Route to Pharmacy Electronically, [facility]/pharmacy #[id number], [facility] : note dose decrease please cance... [...] Team Personnel Name: Marilee Rodas RN Position: [facility] RN Member Role: Primary Care Nurse Name: Ivone Galicia RN Position: [facility] RN Member Role: Primary Care Nurse Name: Marilee Chaudhry RN Position: [facility] SN RN Member Role: Primary Care Nurse Name: Nataliia Pulido RN Position: [facility] RN Supv Member Role: Primary Care Nurse Name: Rajani Adnerson Position: [facility] RN Member Role: Primary Care Nurse Name: Jenny Echols RN Position: [facility] RN Member Role: Primary Care Nurse Name: Ivone Herrera RN Position: [facility] RN Member Role: Primary Care Nurse Name: Helena Sutton RN Position: [facility] RN Member Role: Primary Care Nurse Name: Ruy Mack DO Position: [facility] Renal MD Member Role: Lifetime Consulting Physician Address: Address: [address] [place] [address] [address] [facility] [place] [address]- Name: Joan Reilly MD Position: [facility] Physician - Infectious Disease Member Role: Lifetime Consulting Physician Address: Address: [address] [place] [address] [place] [address]- Name: Dora Ho Position: [facility] Outreach Member Role: Lifetime Consulting Physician Name: Estefany Russell RN Position: [facility] RN Member Role: Primary Care Nurse Name: Heike Smalls RN Position: [facility] RN Member Role: Primary Care Nurse Name: Lisa Cotto RN Position: [facility] RN Member Role: Primary Care Nurse Name: Loreta Bhagat MD Position: Reference Physician Member Role: PCP Address: Address: [address] [place] [address]- Care Team Related Persons Name: YONATHAN BABB Address: home [address] [address]
--- OUTSIDE RECORDS SUMMARY | 2024-03-29 08:04 | XMS_ITS | Continuity of Care Document ---
Author Organization [facility] Address [address] [place] [id number]- Care Team Providers Care Culture Media Laboratory Assistant Name Role Phone Leola ROSS, Inocenciopa Primary Care Physician [place] [facility] [place]s): 08/18/23 - 09/17/23 [facility] [address] [place] [address]- [place] Allergies, Adverse Reactions, Alerts No Known Allergies Immunizations Given and Recorded Vaccine Date Status Refusal Reason tetanus-diphtheria toxoids (Td) 11/11/22 Given tetanus/diphtheria/pertussis, acel(Tdap) 10/13/22 Recorded tetanus/diphtheria/pertussis, acel(Tdap) 12/08/12 Recorded tetanus/diphtheria/pertussis, acel(Tdap) 12/07/12 Recorded [id number] 12y+ bivalent booster vax 08/25/22 Recorded zoster vaccine, inactivated 1 05/20/22 Given zoster vaccine, inactivated 2 01/21/22 Given SARS-CoV-2 mRNA (hncegda-sony-lsvmj) vax 12/10/21 Recorded pneumococcal 23-valent vaccine 09/10/21 [...] Maintenance, 04/04/20 13:14:00 EDT,Route to Pharmacy Electronically, [facility], 173, cm, 04/04/20 8:30:00 EDT, Height, 60, kg, 03/28/20 16:33:00 EDT, Dry Weight Start Date: 04/04/20 Status: Ordered atorvastatin 40 mg oral tablet 1 tablet = 40 mg, By Mouth, Daily at bedtime, # 30 tablet, 0 Refills, Maintenance, 04/04/20 13:14:00 EDT, Tablet, [facility], 173, cm, 04/04/20 8:30:00 EDT, Height, 60, kg, 03/28/20 16:33:00 EDT, Dry Weight Start Date: 04/04/20 Status: Ordered Biktarvy oral tablet See Instructions, [place]OME [place]ANCIS TABLETA TODOS [place], # 30 tablet, 5 Refills, Maintenance, 07/05/23 16:31:00 EST, [id number], 30, TOME FRANCIS TABLETA TODOS [place], 172.7, cm, 04/05/23 10:37:00 EDT, Height, 69, kg, 01/21/23 18:18:00 EDT, Dry Weight Start Date: 07/05/23 Status: Ordered carvedilol 6.25 mg oral tablet See Instructions, 1 tablet By Mouth 2 times a day, # 60 tablet, Refills 2, Tot. Refills 2, Maintenance, 10/14/22 13:17:00 EST, Instructions Replace Required Details, Route to Pharmacy Electronically,[facility]/pharmacy #[id number], Partial fill upon patient reque... Start Date: 10/14/22 Status: Ordered Coreg 6.25 mg oral tablet 6.25 mg, 1, tablet, By Mouth, 2 times a day, # 60 tablet, Refills 0, Tot. Refills 0, Maintenance, 04/04/20 13:14:00 EDT, Route to Pharmacy Electronically, [facility], 173, cm, 04/04/20 8:30:00 EDT, Height, 60, kg, 03/28/20 16:33:00 EDT,... Start Date: 04/04/20 Status: Ordered Entresto 49 mg-51 mg oral tablet See Instructions, 1 tablet By Mouth 2 times a day. note dose increase, # 30 tablet, 11 Refills, Maintenance, 04/05/23 10:51:00 EDT, [facility]/pharmacy #[id number], Partial fill upon patient request if the prescription is for a schedule II opioid drug., 1 tablet B... Start Date: 04/05/23 Status: Ordered Farxiga 10 mg oral tablet See Instructions, take 1 tablet By Mouth Daily., # 30 tablet, 2 Refills, Maintenance, 10/14/22 13:22:00 EST, [facility]/pharmacy #[id number], new start farxiga, 73.8, kg, 08/31/22 15:22:00 EST, Dry Weight Start Date: 10/14/22 Status: Ordered fluticasone 50 mcg/inh nasal spray PUMP 2 SPRAYS INTO EACH NOSTRIL TWICE DAILY FOR 1 WEEK THEN ONCE DAILY NEEDED Start Date: 04/04/20 Status: Ordered fluticasone 50 mcg/inh nasal spray 1 sprays, Nares, Both, Daily in AM, 0 Refills, Maintenance, 02/06/23 9:55:00 EDT, [facility], Partial fill upon patient request if the [...] By Mouth, Daily, oral solution; goes to [facility], 0 Refills, Maintenance, 08/31/22 16:53:00 EST, [...] 08/18/23 10:10:00 EST, Route to Pharmacy Electronically, [facility]/pharmacy #[id number], [facility] : note dose decrease please cance... [...] Team Personnel Name: Marilee Rodas RN Position: [facility] RN Member Role: Primary Care Nurse Name: Ivone Galiica RN Position: [facility] RN Member Role: Primary Care Nurse Name: Marilee Chaudhry RN Position: [facility] SN RN Member Role: Primary Care Nurse Name: Nataliia Pulido RN Position: [facility] RN Supv Member Role: Primary Care Nurse Name: Rajani Anderson Position: [facility] RN Member Role: Primary Care Nurse Name: Jenny Echols RN Position: [facility] RN Member Role: Primary Care Nurse Name: Ivone Herrera RN Position: [facility] RN Member Role: Primary Care Nurse Name: Helena Sutton RN Position: [facility] RN Member Role: Primary Care Nurse Name: Ruy Mack DO Position: [facility] Renal MD Member Role: Lifetime Consulting Physician Address: Address: [address] [place], [place] [address] [place] [place] [address] Name: Joan Reilly MD Position: [facility] Physician - Infectious Disease Member Role: Lifetime Consulting Physician Address: Address: [address] [place] [address] [place] [address]- Name: Dora Ho Position: [facility] Outreach Member Role: Lifetime Consulting Physician Name: Estefany Russell RN Position: [facility] RN Member Role: Primary Care Nurse Name: Heike Smalls RN Position: [facility] RN Member Role: Primary Care Nurse Name: Lisa Cotto RN Position: [facility] RN Member Role: Primary Care Nurse Name: Loreta Bhagat MD Position: Reference Physician Member Role: PCP Address: Address: [address] [place] [address]- Care Team Related Persons Name: YONATHAN BABB Address: home [address] [address]
--- OUTSIDE RECORDS SUMMARY | 2024-03-29 08:04 | XMS_ITS | Continuity of Care Document ---
Author Organization [facility] Address [address] [place] [address]- Care Team Providers Care Nailhead Puncher Name Role Phone Maryjo Reina DO Primary Care Jesisca pfeiffer Encounter [facility] [place] Date(s): 09/24/20 - 10/24/20 [facility]/[address] [address]- Immunizations Given and Recorded Vaccine Date Status Refusal Reason influenza virus vaccine, inactivated 06/14/19 Give n tetanus/diphtheria/pertussis, acel(Tdap) 12/07/12 Recorded pneumococcal 13-valent vaccine 12/07/12 Recorded Medications Biktarvy oral tablet 1 tablet, By Mouth, Daily, # 30 tablet, 5 Refills, Maintenance, 10/09/20 10:08:00 EST, [facility]/pharmacy#[id number], 1 tablet By Mouth Daily,x30 days Start Date: 10/09/20 Stop Date: 04/07/21 Status: Ordered
--- OUTSIDE RECORDS SUMMARY | 2024-03-29 08:04 | XMS_ITS | Continuity of Care Document ---
Author Organization [facility] Address [address] [place] [address]- Care Team Providers Care Online Tutor Name Role Phone Leola ROSS, Loreta Primary Care Physician [phone] [facility] [place] Date(s): 11/18/22 - 01/01/23 [facility] [address] [place] [address]- Attending Physician: Aaron PharmD, Ankush Admitting Physician: Ankush Walker PharmD Allergies, Adverse Reactions, Alerts No Known Allergies Immunizations Given and Recorded Vaccine Date Status Refusal Reason tetanus-diphtheria toxoids (Td) 11/11/22 Given [id number] 12y+ bivalent booster vax 08/25/22 Recorded zoster vaccine, inactivated 1 05/20/22 Given zoster vaccine, inactivated 2 01/21/22 Given SARS-CoV-2 mRNA (hclpuor-fsse-jhihd) vax 12/10/21 Recorded pneumococcal 23-valent vaccine 09/10/21 [...] Maintenance, 12/02/22 13:45:00 EDT,Route to Pharmacy Electronically, [facility]/pharmacy #[id number], Partial fill upon patient request if the prescription is for a schedule II opioid drug., 73.8, kg... Start Date: 12/02/22 Status: Ordered Biktarvy oral tablet 1 tablet, By Mouth, Daily, [place] brett tableta [place]., # 30 tablet, 5 Refills, Maintenance, 12/04/22 12:22:00 EDT, [facility]/pharmacy #[id number], 1 tablet By Mouth Daily,x30 days,Instr:[place] brett tableta [place]., 73.8, kg, 08/31/22 15:22:00 EST, Dry... Start Date: 12/04/22 Stop Date: 06/02/23 Status: Ordered carvedilol 6.25 mg oral tablet See Instructions, 1 tablet By Mouth 2 times a day, # 60 tablet, Refills 2, Tot. Refills 2, Maintenance, 10/14/22 13:17:00 EST, Instructions Replace Required Details, Route to Pharmacy Electronically,[facility]/pharmacy #[id number], Partial fill upon patient reque... [...] tablet, 2 Refills, Maintenance, 10/14/22 13:22:00 EST, [facility]/pharmacy #[id number], new start farxiga, 73.8, kg, 08/31/22 15:22:00 EST, Dry Weight Start Date: 10/14/22 Status: Ordered furosemide 40 mg oral tablet See Instructions, take 1/2 tab daily, # 30 tablet, Refills 0, Tot. Refills 0, Maintenance, 09/16/2313:05:00 EST, Instructions Replace Required Details, Route to Pharmacy Electronically, [facility]/pharmacy#[id number], Partial fill upon patient request if the pre... Start Date: 09/16/22 Status: Ordered Lipitor 40 mg oral tablet 1 tablet = 40 mg, By Mouth, Daily at bedtime, # 90 tablet, 3 Refills, Maintenance, 12/02/22 13:45:00 EDT, Tablet, [facility]/pharmacy #[id number], Partial fill upon patient request if the prescription is for a schedule II opioid drug., 73.8, kg, 08/31/22 15:22:00... Start Date: 12/02/22 Status: Ordered methadone 10 mg/5 mL oral solution = 50 mg, By Mouth, Daily, oral solution; goes to [facility], 0 Refills, Maintenance, 08/31/22 16:53:00 EST, [...] 12/28/22 12:31:00 EDT, Route to Pharmacy Electronically, [facility]/pharmacy #[id number], [facility] : note dose decrease please cance... Start Date: 12/28/22 Status: Ordered Social History Social History Type Response Smoking Status 5-9 cigarettes (betw een 1/4 to 1/2 pack)/day in last 30 days entered on: 09/10/21 Sex Patient Care team information Care Team Personnel Name: Ruy Mack DO Position: [facility] Renal MD Member Role: Lifetime Consulting Physician Address: Address: [address] [place], [place] [address] [place] [address]- Name: Joan Reilly MD Position: [facility] Infectious Disease MD Member Role: Lifetime Consulting Physician Address: Address: [address] [place] [address] [place] [address]- Name: Dora Ho Position: [facility] Outreach Member Role: Lifetime Consulting Physician Name: Lisa Cotto RN Position: [facility] RN Member Role: Primary Care Nurse Name: Loreta Bhagat MD Position: Reference Physician Member Role: PCP Address: Address: [address] [place] [address]- Care Team Related Persons Name: YONATHAN BABB Address: home [address] [address]
--- OUTSIDE RECORDS SUMMARY | 2024-03-29 08:04 | XMS_ITS | Continuity of Care Document ---
Author Organization [facility] Address [address] [place] [address]- Care Team Providers Care Cane Feeder Name Role Phone Leola ROSS, Loreta Primary Care Physician [place] [facility] [place]22 [facility] [address] [place] [address]- Attending Physician: Aaron PharmD, Ankush Admitting Physician: Aaron PharmD, Ankush Referring Physician: Loreta Bhagat MD Allergies, Adverse Reactions, Alerts No Known Allergies Immunizations Given and Recorded Vaccine Date Status Refusal Reason tetanus-diphtheria toxoids (Td) 11/11/22 Given [id number] 12y+ bivalent booster vax 08/25/22 Recorded zoster vaccine, inactivated 1 05/20/22 Given zoster vaccine, inactivated 2 01/21/22 Given SARS-CoV-2 mRNA (vyfnbiu-vima-zmbup) vax 12/10/21 Recorded pneumococcal 23-valent vaccine 09/10/21 Given influenza virus vaccine, inactivated 08/06/21 Devin rded influenza virus vaccine, inactivated 06/14/19 Give n influenza virus vaccine, inactivated 06/12/15 Edvin rded influenza virus vaccine, inactivated 07/04/14 Devin [...] Maintenance, 09/04/22 14:29:00 EST,Route to Pharmacy Electronically, [facility]/pharmacy #[id number], Partial fill upon patient request if the prescription is for a schedule II opioid drug., 73.8, kg... Start Date: 09/04/22 Status: Ordered Biktarvy oral tablet See Instructions, TOME FRANCIS TABLETA TODOS [facility], # 30 tablet, 5 Refills, Maintenance, 05/15/22 12:48:00 EDT, [id number], 30, TOME FRANCIS TABLETA TODOS [facility] Start Date: 05/15/22 Status: Ordered carvedilol [...] EST, [facility]/pharmacy #[id number], new start [place], 73.8, kg, 08/31/22 15:22:00 EST, Dry Weight [...] 0 Refills, Maintenance, 09/04/22 14:29:00 EST, Tablet, [facility]/pharmacy #[id number], Partial fill upon patient request if the prescription is for a schedule II opioid drug., 73.8, kg, 08/31/22 15:22:00... Start Date: 09/04/22 Status: Ordered methadone 10 mg/5 mL oral solution = 50 mg, By Mouth, Daily, oral solution; goes to [facility], 0 Refills, Maintenance, 08/31/22 16:53:00 EST, [...] spironolactone 25 mg oral tablet See Instructions, take 1/2 tablet (12.5mg) by mouth once daily, # 15 tablet, Refills 2, Tot. Refills 2, Maintenance, 11/04/22 13:51:00 EDT, Instructions Replace Required Details, Route to Pharmacy Electronically, [facility]/pharmacy #[id number], Partial fill upon... Start Date: 11/04/22 Status: Ordered Social History Social History Type Response Smoking Status 5-9 cigarettes (betw een 1/4 to 1/2 pack)/day in last 30 days entered on: 09/10/21 Sex Patient Care team information Care Team Personnel Name: Jenny Echols RN Position: S RN Member Role: Primary Care Nurse Name: Ruy Mack DO Position: [facility] Renal MD Member Role: Lifetime Consulting Physician Address: Address: [address] [place] [address] [address] [facility] [place] [address]- Name: Joan Reilly MD Position: [facility] Infectious Disease MD Member Role: Lifetime Consulting Physician Address: Address: [address] [place] [address] [place] [address]- Name: Dora Ho Position: [facility] Outreach Member Role: Lifetime Consulting Physician Name: Lisa Cotto RN Position: [facility] RN Member Role: Primary Care Nurse Name: Loreta Bhagat MD Position: Reference Physician Member Role: PCP Address: Address: [address] [place] [address]- Care Team Related Persons Name: YONATHAN BABB Address: home [address] [address]
--- OUTSIDE RECORDS SUMMARY | 2024-03-29 08:05 | XMS_ITS | Continuity of Care Document ---
Author Organization [facility] Address [address] [place] [address]- Care Team Providers Care Inflated Pad Buffer Name Role Phone Maryjo Reina DO Primary Care Jessica pfeiffer Encounter [facility] [place] Date(s[place] 03/28/20 - 04/04/[address] [address]- [facility] Encounter Diagnosis CHF exacerbation(Final) - 03/28/20 Discharge Disposition: A-D/C Home Attending Physician: Junior Calzada MD Referring Physician: Not on Staff, Referring MD Allergies, Adverse Reactions, Alerts Substance Reaction Severity Status NKA Active Medications Albuterol (Eqv-ProAir HFA) 90 mcg/inh inhalation aerosol INHALE 2 PUFFS INTO THE LUNGS 4 TIMES DAILY NEEDED FOR COUGH OR WHEEZING. Start Date: 04/04/20 Status: Ordered aspirin 81 mg oral delayed release tablet 81 mg, By Mouth, Daily, # 30 tablet, Refills 0, Tot. Refills 0, Maintenance, 04/04/20 13:14:00 EDT,Route to Pharmacy Electronically, [facility], 173, cm, 04/04/20 8:30:00 EDT, Height, 60, kg, 03/28/20 16:33:00 EDT, Dry Weight Start Date: 04/04/20 Status: Ordered atorvastatin 40 mg oral tablet 1 tablet = 40 mg, By Mouth, Daily at bedtime, # 30 tablet, 0 Refills, Maintenance, 04/04/20 13:14:00 EDT, Tablet, [facility], 173, cm, 04/04/20 8:30:00 EDT, Height, 60, kg, 03/28/20 16:33:00 EDT, Dry Weight Start Date: 04/04/20 Status: Ordered Biktarvy oral tablet TOME FRANCIS TABLETA TODOS LOS D Start Date: 04/04/20 Status: Ordered Coreg 6.25 mg oral tablet 6.25 mg, 1, tablet, By Mouth, 2 times a day, # 60 tablet, Refills 0, Tot. Refills 0, Maintenance, 04/04/20 13:14:00 EDT, Route to Pharmacy Electronically, [facility], 173, cm, 04/04/20 8:30:00 EDT, Height, 60, kg, 03/28/20 16:33:00 EDT,... Start Date: 04/04/20 Status: Ordered fluticasone 50 mcg/inh nasal spray PUMP 2 SPRAYS INTO EACH NOSTRIL TWICE DAILY FOR 1 WEEK THEN ONCE DAILY NEEDED Start Date: 04/04/20 Status: Ordered Incruse Ellipta 62.5 mcg/inh inhalation powder TOME FRANCIS INHALACI N POR V A ORAL TODOS LOS D Start Date: 04/04/20 Status: Ordered Methadone Liquid = 50 mg, By Mouth, Daily, 0 Refills, Maintenance, 04/04/20 13:13:00 EDT, Solution, Partial fill upon patient request Start Date: 04/04/20 Status: Ordered Problem List Condition Effective Dates Status Health Status Inform ant History of cocaine abuse(Confirmed) Active History of heroin abuse(Confirmed) Active HIV infection(Confirmed) Active COPD with emphysema(Confirmed) Active Results Radiology Reports * Exam Date Time Procedure Performing Provider Status 03/28/20 11:12 AM Chest Portable Nellie Bowden; Cecelia (Verified) Notes: (Chest Portable) Reason For Exam: Shortness of Breath RESULT: Chest Portable Chest Portable AP upright 10:31 AM INDICATION: Shortness of breath COMPARISON: None. FINDINGS: Right basilar consolidation. Diffuse reticular markings. 1.3 cm nodular density projecting over the right eighth posterior rib. Focus of groundglass projecting over the left third anterior rib IMPRESSION: Right basilar consolidation may be due to chronic pleural-parenchymal scar or small effusion and atelectasis. Diffuse reticular markings. Favor chronic interstitial lung disease / fibrosis. 1.3 cm juxtapleural nodular density projecting over the right eighth posterior - lateral rib. Focusof groundglass projecting over the left third anterior rib. These findings may also be chronic. Consider chest CT for additional assessment of the nodular density and groundglass A Yellow message has been communicated via the [employer] system on 03/28/2020 12:30 PM, Message ID [id number]. I have personally reviewed the images and I agree with this report. WSN: [id number] Ordering Physician: Pamela Menard Dictated By: Sudha Barahona MD Dictated Date/Time: 03/28/20 12:30 p Reviewed By: Siddharth Styles MD Signed By: Siddharth Styles MD Signed Date/Time: 03/28/20 12:35 pm Transcribed By: TRU Transcribed Date/Time: 03/28/20 11:24 am Vital Signs Most recent to oldest [Reference Range]: 1 2 3 Height 173 cm (04/04/20 1:31 PM) 173 cm (04/04/20 8:30 AM) 173 cm (04/04/20 3:03 AM) Weight 57.5 kg (04/04/20 6:54 AM) 58.0 kg (04/03/20 6:44 AM) 57.2 kg (04/01/20 5:52 AM) Oxygen Saturation [94-100 %] 98 % (04/04/20 1:31 PM) 100 % (04/04/20 8:30 AM) 97 % (04/04/20 3:03 AM) Pulse Rate [55-90 bpm] 80 bpm (04/04/20 1:31 PM) 100 bpm *H* (04/04/20 10:26 AM) 66 bpm (04/04/20 8:30 AM) Blood Pressure [90-138/55-84 mm Hg] 123/77mm Hg (04/04/20 1:31 PM) 135/83mm Hg (04/04/20 10:26 AM) 138/75mm Hg (04/04/20 8:30 AM) Respiratory Rate [16-30 br/min] 18 br/min (04/04/20 1:31 PM) 20 br/min (04/04/20 11:26 AM) 20 br/min (04/04/20 10:26 AM) Temperature [96.8-100.4 DegF] 97.6 DegF (04/04/20 1:31 PM) 97.5 DegF (04/04/20 8:30 AM) 97.6 DegF (04/04/20 3:03 AM) Liters per Minute 1.5 L/min (03/29/20 3:08 PM) Mode of Delivery (Oxygen) Room air (04/04/20 1:31 PM) Room air (04/04/20 8:30 AM) Room air (04/04/20 3:03 AM) Blood pressure sites Arm, right (04/04/20 1:31 PM) Arm, right (04/04/20 8:30 AM) Arm, right (04/04/20 3:03 AM) Temperature Route Temporal (04/04/20 1:31 PM) Temporal (04/04/20 8:30 AM) Temporal (04/04/20 3:03 AM) Dry Weight 60 kg (03/28/20 4:33 PM) Weight Obtained Via Bed scale (04/01/20 5:52 AM) Bed scale (03/31/20 4:54 AM) Dry Weight Obtained Via Patient/family s tated (03/28/20 4:33 PM)
[2024-03-29] MEDS: Albuterol/Iprat 2.5/0.5MG 3 ML AMPUL.NEB INHALE ×4 (08:30→19:46)
[2024-03-29] MEDS: Tiotropium Bromide 2.5 mcg 1 PUFF/2.5 MCG MIST.INHAL 2 PUFF INHALE (08:30)
--- NOTE | 2024-03-29 08:41 | MHC.CM.PN ---
Pt came from home, where he lives with one roommate. For DME, he has CPAP, and nebulizer. He was at [facility] until Mar.15. He said he was supposed to have VNA services but they never showed up. HCP is on file and confirmed, his son Earl . His PCP is Dr. Loreta Bhagat. DCP: home with services, CM to follow and assist with DC plan.
[2024-03-29] MEDS: dexAMETHasone sod phosphate 4 MG/ML VIAL 6 MG IVPUSH (11:03)
[2024-03-29] MEDS: Pantoprazole Sodium 20 MG TABLET.DR 40 MG PO ×2 (11:04→21:06)
[2024-03-29] MEDS: Sodium Bicarbonate 650 MG TABLET PO (11:04)
[2024-03-29] MEDS: lamoTRIgine 25 MG TABLET PO ×2 (11:04→21:06)
[2024-03-29] MEDS: Dolutegravir Sodium 50 MG TABLET PO (11:04)
[2024-03-29] MEDS: Torsemide 20 MG TABLET 40 MG PO ×2 (11:04→21:05)
[2024-03-29] MEDS: Cholecalciferol (Vitamin D3) 25 MCG TABLET 50 MCG PO (11:04)
[2024-03-29] MEDS: Aspirin Enteric Coated 81 MG TABLET.DR PO (11:04)
[2024-03-29] MEDS: Ascorbic Acid 500 MG TABLET PO (11:05)
[2024-03-29] MEDS: Metoprolol Tartrate 25 MG TABLET PO (11:05)
[2024-03-29 11:33] LABS: Glucose, Whole Blood 88 mg/dL (60-115)
[2024-03-29] MEDS: vancomycin HCL 500 MG in 0.9 % Sodium Chloride 100 ML 110 MG IV (12:08)
--- NOTE | 2024-03-29 14:26 | MHC.RECOVRN ---
Met with pt in 474 after consult placed to Addiction Medicine for pt reporting hx methadone and would like to resume. Pt had presented to the ED with difficulty breathing, subsequently admitted for pneumonia, COVID-19, lactic acidosis, hypoxia, and prolonged QT interval. Pt sitting in bed, awake, alert, easily engages in conversation, tangential at times and difficult to follow timeline. Pt reports he was on methadone x 10 years and doing well with recovery. Pt reports due to hospitalizations and intubation, he last received methadone in September 2023. Pt reports when he was at the (most recent) SNF they were unable to give methadone, instead gave pt 30 mg oxycodone. Pt reports he was sent home with oxycodone and has a few left. Pt also reports buying methadone on the street due to withdrawal symptoms at home. Reports he bought 100+ mg and has taken sips of it. Pt reports he has been unable to get to the [facility] to initiate methadone since being discharged from the SNF 2 weeks ago. Pt reports hx Suboxone, however, states it doesn't work for me. Unable to elaborate on specifics. Pt reports last heroin/fentanyl use in May 2022. Pt would like to restart methadone. Pt reports current withdrawal symptoms including goosebumps and feeling hot/cold. Pt denies other questions or concerns for t/w. Discussed with Mel Gaspar APRN.
[2024-03-29] MEDS: oxyCODONE HCl Immed Release 5 MG TABLET PO ×2 (15:20→21:05)
--- NOTE | 2024-03-29 16:03 | HO.ADDICT_ITS ---
History of Present Illness Date of Service: 03/29/2024 Chief Complaint: covid hypoxia Reason for Consult: methadone restart HPI Narrative: Patient is a 63 year old male medically admitted with covid and hypoxia During admission he reported history of treatment for opioid use disorder and states he was previously on methadone Patient seen by web applications administrator earlier in the day and again follow up by t/w Seen in room 474, awake, alert, engaged in interview. He reports that he had been engaged in treatment for OUD, for over 10 years, with methadone up until September 2023 when he was admitted and intubated and was not continued on methadone as no one was aware that he was taking it. Timeline is unclear but it appears he was restarted at another hospital and then discontinued again when he went to SNF and instead given oxycodone. He discharged from SNF on 03/16. He states that since then he has been buying methadone on the street. He buys 110mg bottle and splits it into 3 or 4 doses. He would like to resume methadone treatment and reports that he was able to abstain from using drugs while on methadone. RN asked him about suboxone and he states that he did not find it effective in managing his OUD. He reports chills and some anxiety. He received one oxycodone 5mg dose earlier. Last methadone dose at home was 2 days ago. Review of Systems Constitutional: Reports as per HPI Diagnostics Vital Signs (24Hr): Vital Signs - 24 hr 03/28/24 17:42 03/28/24 20:03 03/28/24 20:22 Temperature 97.6 F 97.9 F Pulse Rate 94 93 94 Respiratory Rate 20 14 16 Blood Pressure 114/75 121/79 Pulse Oximetry 100 97 Oxygen Delivery Method High Flow Nasal Cannula High Flow Nasal Cannula Oxygen Flow Rate 50 Fraction of Inspired Oxygen 03/28/24 20:23 03/28/24 22:05 03/28/24 22:45 Temperature Pulse Rate 97 Respiratory Rate 16 16 Blood Pressure 119/83 112/77 Pulse Oximetry 97 Oxygen Delivery Method High Flow Nasal Cannula Oxygen Flow Rate Fraction of Inspired Oxygen 03/28/24 23:38 03/29/24 00:00 03/29/24 04:00 Temperature 97.4 F 97.1 F Pulse Rate 90 87 Respiratory Rate 14 20 20 Blood Pressure 114/82 123/83 Pulse Oximetry 99 99 Oxygen Delivery Method High Flow Nasal Cannula Nasal Cannula Oxygen Flow Rate 10 3 Fraction of Inspired Oxygen 35.5 03/29/24 07:37 03/29/24 08:32 03/29/24 10:57 Temperature 98.0 F Pulse Rate 78 78 80 Respiratory Rate 18 18 18 Blood Pressure 106/58 L Pulse Oximetry 98 Oxygen Delivery Method Nasal Cannula Oxygen Flow Rate 3 Fraction of Inspired Oxygen 03/29/24 11:20 03/29/24 14:52 03/29/24 15:20 Temperature 97.8 F 98.3 F Pulse Rate 84 84 80 Respiratory Rate 18 18 18 Blood Pressure 122/84 118/83 Pulse Oximetry 92 95 Oxygen Delivery Method Nasal Cannula Nasal Cannula Oxygen Flow Rate 3 3 Fraction of Inspired Oxygen BMI result Body Mass Index 23.2 Labs 03/29/24 05:43 03/29/24 05:43 Labs: Laboratory Results - last 48 hr 03/28/24 03/28/24 03/28/24 04:44 04:54 08:10 WBC 4.7 L RBC 4.69 Hgb 11.2 L Hct 36.3 L MCV 77.4 L MCH 23.9 L MCHC 30.9 L RDW 14.1 Plt Count 155 L MPV 9.3 L Immature Gran % (Auto) 0.4 Neut % (Auto) 52.3 Lymph % (Auto) 30.1 [place] % (Auto) 14.2 H Eos % (Auto) 2.6 Baso % (Auto) 0.4 Lymph # (Auto) 1.4 [place] # (Auto) 0.7 Eos # (Auto) 0.1 Baso # (Auto) 0.0 Abs Immat Gran (auto) 0.02 Absolute Neuts (auto) 2.4 Absolute Nucleated RBC 0.000 Nucleated RBC % (auto) 0.0 VBG pH 7.24 L VBG pCO2 42 VBG pO2 38 VBG HCO3 18 L VBG O2 Saturation 68.0 VBG Base Excess -8.4 Sodium 142 Potassium 4.4 Chloride 110 H Carbon Dioxide 19 L Anion Gap 17 BUN 24 H Creatinine 2.46 H Estim Creat Clear Calc 28.8 Estimated GFR 27 POC Glucose Random Glucose 162 H Estimat Average Glucose Hemoglobin A1c % Lactic Acid 3.6 H* Lactic Acid F/U @ 2Hr 1.7 Calcium 9.3 Magnesium 2.2 Total Bilirubin 0.2 Direct Bilirubin < 0.2 AST 34 ALT 22 Alkaline Phosphatase 222 H Troponin I High Sens 64.1 H C-Reactive Protein 3.42 H B-Natriuretic Peptide 334 H Total Protein 7.9 Albumin 3.6 Lipase 15 Procalcitonin 0.09 Urine Color Urine Appearance Urine pH Ur Specific [place] Urine Protein Urine Glucose (UA) Urine Ketones Urine Blood Urine Nitrite Ur Leukocyte Esterase Urine RBC Urine WBC Ur Squamous Epith Cells Urine Bacteria Hyaline Casts Nasal Screen MRSA (PCR) Nasal S. aureus Screen Nasal MRSA/S.aureus Interp Influenza Type A (PCR) NEGATIVE Influenza Type B (PCR) NEGATIVE RSV RNA Qual (PCR) NEGATIVE SARS-CoV-2 RNA (RT-PCR) POSITIVE A 03/28/24 03/28/24 03/28/24 10:27 12:54 12:59 WBC RBC Hgb Hct MCV MCH MCHC RDW Plt Count MPV Immature Gran % (Auto) Neut % (Auto) Lymph % (Auto) [place] % (Auto) Eos % (Auto) Baso % (Auto) Lymph # (Auto) [place] # (Auto) Eos # (Auto) Baso # (Auto) Abs Immat Gran (auto) Absolute Neuts (auto) Absolute Nucleated RBC Nucleated RBC % (auto) VBG pH VBG pCO2 VBG pO2 VBG HCO3 VBG O2 Saturation VBG Base Excess Sodium Potassium Chloride Carbon Dioxide Anion Gap BUN Creatinine Estim Creat Clear Calc Estimated GFR POC Glucose Random Glucose Estimat Average Glucose 111 Hemoglobin A1c % 5.5 Lactic Acid Lactic Acid F/U @ 2Hr Calcium Magnesium Total Bilirubin Direct Bilirubin AST ALT Alkaline Phosphatase Troponin I High Sens C-Reactive Protein B-Natriuretic Peptide Total Protein Albumin Lipase Procalcitonin Urine Color Yellow Urine Appearance Clear Urine pH 5.5 Ur Specific [place] 1.015 Urine Protein 300 (3+) H Urine Glucose (UA) Negative Urine Ketones Trace Urine Blood Small (1+) H Urine Nitrite Negative Ur Leukocyte Esterase Negative Urine RBC 0-2 Urine WBC 0-5 Ur Squamous Epith Cells 0-2 Urine Bacteria None Seen Hyaline Casts 3-5 Nasal Screen MRSA (PCR) NEGATIVE Nasal S. aureus Screen POSITIVE A Nasal MRSA/S.aureus Interp SEE NOTE Influenza Type A (PCR) Influenza Type B (PCR) RSV RNA Qual (PCR) SARS-CoV-2 RNA (RT-PCR) 03/28/24 03/28/24 03/28/24 13:04 18:32 20:40 WBC RBC Hgb Hct MCV MCH MCHC RDW Plt Count MPV Immature Gran % (Auto) Neut % (Auto) Lymph % (Auto) [place] % (Auto) Eos % (Auto) Baso % (Auto) Lymph # (Auto) [place] # (Auto) Eos # (Auto) Baso # (Auto) Abs Immat Gran (auto) Absolute Neuts (auto) Absolute Nucleated RBC Nucleated RBC % (auto) VBG pH 7.32 VBG pCO2 38 VBG pO2 51 VBG HCO3 20 L VBG O2 Saturation 85.0 VBG Base Excess -5.2 Sodium Potassium Chloride Carbon Dioxide Anion Gap BUN Creatinine Estim Creat Clear Calc Estimated GFR POC Glucose 150 H 180 H Random Glucose Estimat Average Glucose Hemoglobin A1c % Lactic Acid Lactic Acid F/U @ 2Hr Calcium Magnesium Total Bilirubin Direct Bilirubin AST ALT Alkaline Phosphatase Troponin I High Sens C-Reactive Protein B-Natriuretic Peptide Total Protein Albumin Lipase Procalcitonin Urine Color Urine Appearance Urine pH Ur Specific [place] Urine Protein Urine Glucose (UA) Urine Ketones Urine Blood Urine Nitrite Ur Leukocyte Esterase Urine RBC Urine WBC Ur Squamous Epith Cells Urine Bacteria Hyaline Casts Nasal Screen MRSA (PCR) Nasal S. aureus Screen Nasal MRSA/S.aureus Interp Influenza Type A (PCR) Influenza Type B (PCR) RSV RNA Qual (PCR) SARS-CoV-2 RNA (RT-PCR) 03/29/24 03/29/24 03/29/24 05:43 07:38 11:20 WBC 4.7 L RBC 4.72 Hgb 11.2 L Hct 35.6 L MCV 75.4 L MCH 23.7 L MCHC 31.5 RDW 13.6 Plt Count 174 MPV 11.0 Immature Gran % (Auto) 0.4 Neut % (Auto) 75.0 H Lymph % (Auto) 14.0 L [place] % (Auto) 10.4 Eos % (Auto) 0.0 Baso % (Auto) 0.2 Lymph # (Auto) 0.7 L [place] # (Auto) 0.5 Eos # (Auto) 0.0 Baso # (Auto) 0.0 Abs Immat Gran (auto) 0.02 Absolute Neuts (auto) 3.5 Absolute Nucleated RBC 0.000 Nucleated RBC % (auto) 0.0 VBG pH VBG pCO2 VBG pO2 VBG HCO3 VBG O2 Saturation VBG Base Excess Sodium 139 Potassium 4.7 Chloride 107 Carbon Dioxide 24 Anion Gap 13 BUN 35 H Creatinine 2.05 H Estim Creat Clear Calc 34.0 Estimated GFR 33 POC Glucose 100 88 Random Glucose 116 H Estimat Average Glucose Hemoglobin A1c % Lactic Acid Lactic Acid F/U @ 2Hr Calcium 9.7 Magnesium Total Bilirubin Direct Bilirubin AST ALT Alkaline Phosphatase Troponin I High Sens C-Reactive Protein B-Natriuretic Peptide Total Protein Albumin Lipase Procalcitonin Urine Color Urine Appearance Urine pH Ur Specific [place] Urine Protein Urine Glucose (UA) Urine Ketones Urine Blood Urine Nitrite Ur Leukocyte Esterase Urine RBC Urine WBC Ur Squamous Epith Cells Urine Bacteria Hyaline Casts Nasal Screen MRSA (PCR) Nasal S. aureus Screen Nasal MRSA/S.aureus Interp Influenza Type A (PCR) Influenza Type B (PCR) RSV RNA Qual (PCR) SARS-CoV-2 RNA (RT-PCR) Mental Status Exam Mental Status Exam Patient Appearance: Appropriate Level of Consciousness: Awake, Appropriate and Alert Patient Behavior: Appropriate Mood Description: Calm Affect Description: Calm Speech Pattern: Clear Medications Medications Current Medications Abacavir Sulfate (Abacavir Sulfate 300 Mg Tablet) 600 mg PO DAILY [facility] Acetaminophen (Acetaminophen 325 Mg Tablet) 650 mg PO Q6H PRN PRN Reason: Pain, Mild (Pain Scale 1-3), fever or headache Albuterol Sulfate (Albuterol Sulfate 90 Mcg 8 Gm Inhaler) 2 puff INHALE Q4H PRN PRN Reason: Wheezing Albuterol/Ipratropium (Albuterol/Iprat 2.5/0.5mg 3 Ml Ampul.Neb) 3 ml INHALE RQ4H WHILE AWAKE [facility] Last Admin: 03/29/24 14:52 Dose: 3 ml Ascorbic Acid (Ascorbic Acid 500 Mg Tablet) 500 mg PO DAILY [facility] Last Admin: 03/29/24 11:05 Dose: 500 mg Aspirin (Aspirin Enteric Coated 81 Mg Tablet.Dr) 81 mg PO DAILY [facility] Last Admin: 03/29/24 11:04 Dose: 81 mg Calcium Carbonate (Calcium Carbonate 750 Mg Tab.Chew) 750 mg PO Q4H PRN PRN Reason: Heartburn Dexamethasone Sodium Phosphate (Dexamethasone Sod Phosphate 4 Mg/Ml Vial) 6 mg IVPUSH DAILY [facility] Last Admin: 03/29/24 11:03 Dose: 6 mg Dolutegravir Sodium (Dolutegravir Sodium 50 Mg Tablet) 50 mg PO DAILY [facility] Last Admin: 03/29/24 11:04 Dose: 50 mg Glucose (Glucose Gel 15 Gm Gel..Gram.) 15 gm PO Q15M PRN; Protocol PRN Reason: per Hypoglycemia Standing Ord. Guaifenesin (Guaifenesin 100 Mg/5 Ml Liquid) 10 ml PO Q4H PRN PRN Reason: Cough Guaifenesin/Codeine Phosphate (Guaifen/Codeine Sf 200/20/10ml 10 Ml Liquid) 5 ml PO Q4H [facility] Last Admin: 03/29/24 14:48 Dose: 5 ml Heparin Sodium (Porcine) (Heparin Sodium,Porcine 5,000 Unit/Ml Vial) 5,000 unit SUBCUT Q12H [facility] Last Admin: 03/29/24 11:03 Dose: 5,000 unit Cefepime HCl 1 gm/ Sodium (Chloride) 50 mls @ 100 mls/hr IV Q12H [facility] Last Infusion: 03/29/24 06:18 Dose: Infused Dextrose (D10) 250 mls @ 750 mls/hr IV Q15M PRN; Protocol PRN Reason: per Hypoglycemia Standing Ord. Vancomycin HCl 500 mg/ Sodium (Chloride) 110 mls @ 110 mls/hr IV Q24H [facility] Last Infusion: 03/29/24 13:10 Dose: Infused Insulin Human Lispro (Insulin Lispro 100 Unit/Ml 3 Ml Vial) 0 unit SUBCUT QIDACHS [facility]; Protocol Last Admin: 03/29/24 13:34 Dose: Not Given Lamotrigine (Lamotrigine 25 Mg Tablet) 25 mg PO BID [facility] Last Admin: 03/29/24 11:04 Dose: 25 mg Magnesium Hydroxide (Milk Of Magnesia 30 Ml Oral.Susp) 30 ml PO DAILY PRN PRN Reason: Constipation Melatonin (Melatonin 3 Mg Tablet) 6 mg PO BEDTIME PRN PRN Reason: Insomnia Last Admin: 03/28/24 22:05 Dose: 6 mg Melatonin (Melatonin 3 Mg Tablet) 9 mg PO BEDTIME PRN PRN Reason: sleep Metoprolol Tartrate (Metoprolol Tartrate 25 Mg Tablet) 25 mg PO DAILY [facility]; Protocol Last Admin: 03/29/24 11:05 Dose: 25 mg Non-Formulary Medication (Lamivudine) 100 mg PO DAILY [facility] Non-Formulary Medication (Magnesium Glycinate) 100 mg PO BEDTIME [facility] Last Admin: 03/28/24 22:06 Dose: Not Given Oxycodone HCl (Oxycodone Hcl Immed Release 5 Mg Tablet) 5 mg PO Q6H PRN PRN Reason: Pain, Severe (Pain Scale 7-10) Last Admin: 03/29/24 15:20 Dose: 5 mg Pantoprazole Sodium (Pantoprazole Sodium 20 Mg Tablet.Dr) 40 mg PO BID [facility] Last Admin: 03/29/24 11:04 Dose: 40 mg Pharmacy Consult (Consult Rx Vancomycin Dosing) 1 each MISCELLANE DAILY PRN PRN Reason: Consult order Quetiapine Fumarate (Quetiapine Fumarate 100 Mg Tablet) 100 mg PO BEDTIME [facility] Last Admin: 03/28/24 22:08 Dose: Not Given Simethicone (Simethicone 80 Mg Tab.Chew) 80 mg PO Q6H PRN PRN Reason: BLOADING Sodium Bicarbonate (Sodium Bicarbonate 650 Mg Tablet) 650 mg PO DAILY [facility] Last Admin: 03/29/24 11:04 Dose: 650 mg Sodium Chloride (0.9 % Sodium Chloride Flush 3 Ml Syringe) 3 ml IVFLUSH QSHIFT [facility] Last Admin: 03/29/24 12:08 Dose: 3 ml Tiotropium [place] (Tiotropium [place] 2.5 Mcg 1 Puff/2.5 Mcg Mist.Inhal) 2 puff INHALE RDAILY [facility] Last Admin: 03/29/24 08:30 Dose: 2 puff Torsemide (Torsemide 20 Mg Tablet) 40 mg PO BID [facility] Last Admin: 03/29/24 11:04 Dose: 40 mg Vitamin D (Cholecalciferol (Vitamin D3) 25 Mcg Tablet) 50 mcg PO DAILY [facility] Last Admin: 03/29/24 11:04 Dose: 50 mcg Allergies Allergies Allergy/AdvReac Type Severity Reaction Status Date / Time No Known Allergies Allergy Unverified 03/28/24 04:31 Assessment & Plan Assessment & Plan (1) Opioid use disorder: Status: Acute Code(s): F11.90 - Opioid use, unspecified, uncomplicated Assessment and Plan: * UDS * recheck EKG as QTc was 549 at admission * if WNL, will restart methadone at 10mg and assess--will continue to titrate dose based on response * continue oxycodone to address mild withdrawal sx Total time managing care of this patient today __25__ minutes. PMFSH Past Medical History Medical History Myocardial injury Respiratory failure Pneumonia TERRY (obstructive sleep apnea) Pulmonary nodules Hepatitis C HIV disease COPD (chronic obstructive pulmonary disease) Family History Family history: reviewed and not pertinent Social History Social History Household Members: Friend(s) Housing: House Do you presently have visiting nurse or other home services: No Comment: Sitter at bedside Patient Tobacco Use Status: Tobacco use Unknown Tobacco use type: Cigarette Cigarette Packs Per Day: 1 Cigarettes Per Day: 4 Years Smoked: 30 Years Substance Use Type: Unknown service: No
[2024-03-29 16:52] LABS: Glucose, Whole Blood 156 mg/dL (60-115)
--- NOTE | 2024-03-29 16:54 | HO.PM.IMPN ---
Subjective Subjective Date of Service: 03/29/24 Interval History: sob ,cough Review of Systems sob and hypoxia seems improving off high flow Physical Exam Vital Signs: Vital Signs: Last Vital Signs Temp 98.3 F 03/29/24 15:20 Pulse 80 03/29/24 15:20 Resp 18 03/29/24 15:20 BP 118/83 03/29/24 15:20 Pulse Ox 95 03/29/24 15:20 O2 Del Method Nasal Cannula 03/29/24 15:20 O2 Flow Rate 3 03/29/24 15:20 FiO2 35.5 03/29/24 00:00 BMI result Body Mass Index 23.2 Appearance: Alert.? Oriented X3.? cvs: rrr, [id number] , no murmur res: clear to auscultation ,no rhonchii or wheezing abd: no rebound or guarding ,nt, bs present. ext pulses present , no cyanosis . neuro: axo3 , nonfocal. Objective Data Active Medications Abacavir Sulfate (Abacavir Sulfate 300 Mg Tablet) 600 mg PO DAILY [facility] Acetaminophen (Acetaminophen 325 Mg Tablet) 650 mg PO Q6H PRN PRN Reason: Pain, Mild (Pain Scale 1-3), fever or headache Albuterol Sulfate (Albuterol Sulfate 90 Mcg 8 Gm Inhaler) 2 puff INHALE Q4H PRN PRN Reason: Wheezing Albuterol/Ipratropium (Albuterol/Iprat 2.5/0.5mg 3 Ml Ampul.Neb) 3 ml INHALE RQ4H WHILE AWAKE [facility] Last Admin: 03/29/24 14:52 Dose: 3 ml Documented By: ROBB Ascorbic Acid (Ascorbic Acid 500 Mg Tablet) 500 mg PO DAILY [facility] Last Admin: 03/29/24 11:05 Dose: 500 mg Documented By: AJ Aspirin (Aspirin Enteric Coated 81 Mg Tablet.Dr) 81 mg PO DAILY [facility] Last Admin: 03/29/24 11:04 Dose: 81 mg Documented By: AJ Calcium Carbonate (Calcium Carbonate 750 Mg Tab.Chew) 750 mg PO Q4H PRN PRN Reason: Heartburn Dexamethasone Sodium Phosphate (Dexamethasone Sod Phosphate 4 Mg/Ml Vial) 6 mg IVPUSH DAILY [facility] Last Admin: 03/29/24 11:03 Dose: 6 mg Documented By: AJ Dolutegravir Sodium (Dolutegravir Sodium 50 Mg Tablet) 50 mg PO DAILY [facility] Last Admin: 03/29/24 11:04 Dose: 50 mg Documented By: AJ Glucose (Glucose Gel 15 Gm Gel..Gram.) 15 gm PO Q15M PRN; Protocol PRN Reason: per Hypoglycemia Standing Ord. Guaifenesin (Guaifenesin 100 Mg/5 Ml Liquid) 10 ml PO Q4H PRN PRN Reason: Cough Guaifenesin/Codeine Phosphate (Guaifen/Codeine Sf 200/20/10ml 10 Ml Liquid) 5 ml PO Q4H [facility] Last Admin: 03/29/24 14:48 Dose: 5 ml Documented By: AJ Heparin Sodium (Porcine) (Heparin Sodium,Porcine 5,000 Unit/Ml Vial) 5,000 unit SUBCUT Q12H [facility] Last Admin: 03/29/24 11:03 Dose: 5,000 unit Documented By: AJ Cefepime HCl 1 gm/ Sodium (Chloride) 50 mls @ 100 mls/hr IV Q12H [facility] Last Infusion: 03/29/24 06:18 Dose: Infused Documented By: JASON Dextrose (D10) 250 mls @ 750 mls/hr IV Q15M PRN; Protocol PRN Reason: per Hypoglycemia Standing Ord. Vancomycin HCl 500 mg/ Sodium (Chloride) 110 mls @ 110 mls/hr IV Q24H [facility] Last Infusion: 03/29/24 13:10 Dose: Infused Documented By: AJ Insulin Human Lispro (Insulin Lispro 100 Unit/Ml 3 Ml Vial) 0 unit SUBCUT QIDACHS [facility]; Protocol Last Admin: 03/29/24 13:34 Dose: Not Given Documented By: AJ Non-Admin Reason: No Insulin Coverage Lamotrigine (Lamotrigine 25 Mg Tablet) 25 mg PO BID [facility] Last Admin: 03/29/24 11:04 Dose: 25 mg Documented By: AJ Magnesium Hydroxide (Milk Of Magnesia 30 Ml Oral.Susp) 30 ml PO DAILY PRN PRN Reason: Constipation Melatonin (Melatonin 3 Mg Tablet) 6 mg PO BEDTIME PRN PRN Reason: Insomnia Last Admin: 03/28/24 22:05 Dose: 6 mg Documented By: PATEL Melatonin (Melatonin 3 Mg Tablet) 9 mg PO BEDTIME PRN PRN Reason: sleep Metoprolol Tartrate (Metoprolol Tartrate 25 Mg Tablet) 25 mg PO DAILY [facility]; Protocol Last Admin: 03/29/24 11:05 Dose: 25 mg Documented By: AJ Non-Formulary Medication (Lamivudine) 100 mg PO DAILY [facility] Non-Formulary Medication (Magnesium Glycinate) 100 mg PO BEDTIME [facility] Last Admin: 03/28/24 22:06 Dose: Not Given Documented By: PATEL Non-Admin Reason: Med Not Available Oxycodone HCl (Oxycodone Hcl Immed Release 5 Mg Tablet) 5 mg PO Q6H PRN PRN Reason: Pain, Severe (Pain Scale 7-10) Last Admin: 03/29/24 15:20 Dose: 5 mg Documented By: AJ Pantoprazole Sodium (Pantoprazole Sodium 20 Mg Tablet.Dr) 40 mg PO BID [facility] Last Admin: 03/29/24 11:04 Dose: 40 mg Documented By: AJ Pharmacy Consult (Consult Rx Vancomycin Dosing) 1 each MISCELLANE DAILY PRN PRN Reason: Consult order Quetiapine Fumarate (Quetiapine Fumarate 100 Mg Tablet) 100 mg PO BEDTIME [facility] Last Admin: 03/28/24 22:08 Dose: Not Given Documented By: PATEL Non-Admin Reason: Patient Refused Simethicone (Simethicone 80 Mg Tab.Chew) 80 mg PO Q6H PRN PRN Reason: BLOADING Sodium Bicarbonate (Sodium Bicarbonate 650 Mg Tablet) 650 mg PO DAILY [facility] Last Admin: 03/29/24 11:04 Dose: 650 mg Documented By: AJ Sodium Chloride (0.9 % Sodium Chloride Flush 3 Ml Syringe) 3 ml IVFLUSH QSHIFT [facility] Last Admin: 03/29/24 12:08 Dose: 3 ml Documented By: AJ Tiotropium [place] (Tiotropium [place] 2.5 Mcg 1 Puff/2.5 Mcg Mist.Inhal) 2 puff INHALE RDAILY [facility] Last Admin: 03/29/24 08:30 Dose: 2 puff Documented By: ROBB Torsemide (Torsemide 20 Mg Tablet) 40 mg PO BID [facility] Last Admin: 03/29/24 11:04 Dose: 40 mg Documented By: AJ Vitamin D (Cholecalciferol (Vitamin D3) 25 Mcg Tablet) 50 mcg PO DAILY [facility] Last Admin: 03/29/24 11:04 Dose: 50 mcg Documented By: AJ Labs 03/29/24 05:43 03/29/24 05:43 Labs: Laboratory Results - last 24 hr 03/28/24 03/28/24 03/29/24 18:32 20:40 05:43 MCV 75.4 L MCH 23.7 L MCHC 31.5 RDW 13.6 Plt Count 174 MPV 11.0 Immature Gran % (Auto) 0.4 Neut % (Auto) 75.0 H Lymph % (Auto) 14.0 L [place] % (Auto) 10.4 Eos % (Auto) 0.0 Baso % (Auto) 0.2 Lymph # (Auto) 0.7 L [place] # (Auto) 0.5 Eos # (Auto) 0.0 Baso # (Auto) 0.0 Abs Immat Gran (auto) 0.02 Absolute Neuts (auto) 3.5 Absolute Nucleated RBC 0.000 Nucleated RBC % (auto) 0.0 Anion Gap 13 Estim Creat Clear Calc 34.0 Estimated GFR 33 POC Glucose 150 H 180 H Random Glucose 116 H Calcium 9.7 03/29/24 03/29/24 03/29/24 07:38 11:20 16:32 MCV MCH MCHC RDW Plt Count MPV Immature Gran % (Auto) Neut % (Auto) Lymph % (Auto) [place] % (Auto) Eos % (Auto) Baso % (Auto) Lymph # (Auto) [place] # (Auto) Eos # (Auto) Baso # (Auto) Abs Immat Gran (auto) Absolute Neuts (auto) Absolute Nucleated RBC Nucleated RBC % (auto) Anion Gap Estim Creat Clear Calc Estimated GFR POC Glucose 100 88 156 H Random Glucose Calcium Microbiology Microbiology Results: Microbiology 03/28/24 04:58 Blood Culture - Preliminary Blood - Venous No growth after 24 hours. 03/28/24 04:44 Blood Culture - Preliminary Blood - Venous No growth after 24 hours. Assessment and Plan (1) Prolonged QT interval: Status: Acute Plan 63-year-old male with history of cocaine and heroin abuse in remission, HIV on HAART therapy, nonischemic cardiomyopathy, COPD, heart failure with reduced ejection fraction, CKD stage 3, TERRY occasionally compliant with CPAP, history of hepatitis-C, mood disorder admitted for COVID 19 with acute respiratory failure and hypoxemic respiratory failure Acute COVID-19 infection with acute hypoxemic respiratory failure with acute respiratory acidosis -CXR pending but appears to have Right middle/lower lobar pneumonia. +for COVID 19 -VBG with ph 7.32/38/51 Patient received BiPAP in the ED, high-flow Plan: Continue IV decadron 6mg daily -guaifenesin ac -duonebs -ID consult -Follow cbc, cultures Acute pneumonia with severe sepsis -tachycardic, tachypneic, lactic acidosis 3.6, improved to 1.9. Blood cultures pending. no hypotension -CXR final read pending but appears consistent with r sided pneumonia -iv cefepime (renally adjusted) and vanco (initiated 03/28) given immunocompromised status -ID consult -see above -follow cbc, cultures Prolonged qtc -avoid qtc prolonging agents -keep K>4, Mg >2 Repeat EKG HIV -last CD4 >500, viral load undetectable -continue HAART -ID consult Hx polysubstance abuse -previously on methadone but while at SNF given oxycodone. Would like to resume methadone -addiction med consult COPD -no acute exacerbation -continue home inhalers, duonebs, decadron as above NICM -continue bb, asa Mood disorder -continue home meds dvt prophylaxis- heparin full code ongoing need for stay: due to COVID 19 with acute respiratory acidosis and hypoxia on requiring oxygen,ov sterois,antibiotics, expert consultation, and close monitoring of hemodyanamic. Quality Stroke Does the patient have a stroke diagnosis?: No VTE Prior VTE?: No VTE Risk Level:: Medical - moderate - high VTE Device Contraindication: Treatment Not Indicated VTE Drug Contraindication: N/A - Med Ordered
[2024-03-29 16:58] LABS: Amphetamine Screen Urine Not Detected (Not Detect); Barbiturates, Urine Not Detected (Not Detect); Benzodiazepines Screen Urine Not Detected (Not Detect); Buprenorphine Scr Not Detected (Not Detect); Cannabinoid Screen Urine Not Detected (Not Detect); Cocaine Screen Urine Not Detected (Not Detect); Fentanyl, urine Not Detected (Not Detect); Methadone Screen, Urine Positive (Not Detect); Opiate Screen Urine POSITIVE (Not Detect); Oxycodone Screen Urine Not Detected (Not Detect); Phencyclidine Screen Urine Not Detected (Not Detect)
[2024-03-29] MEDS: Insulin Lispro 100 UNIT/ML 3 ML VIAL SUBCUT (18:01)
[2024-03-29 20:16] LABS: Glucose, Whole Blood 89 mg/dL (60-115)
[2024-03-29] MEDS: Melatonin 3 MG TABLET 6 MG PO (21:06)
[2024-03-29] MEDS: QUEtiapine Fumarate 100 MG TABLET PO (21:06)
[2024-03-30] VITALS (13 sets, daily range): BP systolic 90–104; BP diastolic 62–76; PULSE 74–109; RESP 16–20; TEMP 35.9–36.4; O2SAT 94–100
--- NOTE | 2024-03-30 02:36 | PC.RT ---
pt's telfa gauze and tegaderm removed from stoma site as pt no longer on hfnc. Pt stoma is dry, intact and no drainage. pt in no resp distress on 3 l nasal cannula.
[2024-03-30] MEDS: guaiFEN/Codeine SF 200/20/10ML 10 ML LIQUID 5 ML PO ×5 (05:05→22:03)
[2024-03-30] MEDS: cefEPime HCl 1 GM in 0.9 % Sodium Chloride 50 ML IV ×2 (05:05→16:44)
[2024-03-30 06:39] LABS: Vancomycin Random 9.2 mcg/mL (15-20)
[2024-03-30 06:41] LABS: Creatinine Clr Calc Pharmacy 28.3; Estimated Glomerular Filt Rate 27
--- NOTE | 2024-03-30 06:55 | HE.PHANOTE ---
RE: VANCO DOSING Random came back as 9.2 (drawn early because dose was scheduled for 0800 but wasn't infused until 1200). Dose is increased to 1000 mg q24h, next random is scheduled for 03/31/24 @1000.
[2024-03-30] MEDS: Tiotropium Bromide 2.5 mcg 1 PUFF/2.5 MCG MIST.INHAL 2 PUFF INHALE (07:27)
[2024-03-30] MEDS: Albuterol/Iprat 2.5/0.5MG 3 ML AMPUL.NEB INHALE ×4 (07:27→20:33)
[2024-03-30 08:22] LABS: Glucose, Whole Blood 116 mg/dL (60-115)
[2024-03-30] MEDS: Sodium Bicarbonate 650 MG TABLET PO (09:36)
[2024-03-30] MEDS: Ascorbic Acid 500 MG TABLET PO (09:36)
[2024-03-30] MEDS: lamoTRIgine 25 MG TABLET PO ×2 (09:36→22:04)
[2024-03-30] MEDS: Aspirin Enteric Coated 81 MG TABLET.DR PO (09:36)
[2024-03-30] MEDS: Metoprolol Tartrate 25 MG TABLET PO (09:36)
[2024-03-30] MEDS: Dolutegravir Sodium 50 MG TABLET PO (09:36)
[2024-03-30] MEDS: Cholecalciferol (Vitamin D3) 25 MCG TABLET 50 MCG PO (09:36)
[2024-03-30] MEDS: Pantoprazole Sodium 20 MG TABLET.DR 40 MG PO ×2 (09:38→22:04)
[2024-03-30] MEDS: Torsemide 20 MG TABLET 40 MG PO ×2 (09:38→22:07)
[2024-03-30] MEDS: 0.9 % Sodium Chloride Flush 3 ML SYRINGE IVFLUSH ×2 (09:39→16:45)
[2024-03-30] MEDS: dexAMETHasone sod phosphate 4 MG/ML VIAL 6 MG IVPUSH (09:39)
--- NOTE | 2024-03-30 11:39 | HO.ADDICTPRO ---
Subjective Subjective Date of Service: 03/30/24 Reason For Visit: covid hypoxia Interim History: Patient seen in follow up Bright affect, appearing comfortable oxycodone 5mg overnight EKG redone and still showing prolonged QT Discussed with patient and reviewed alternatives patient expressing concern for returning to substance use, also acknowledging that he has been in recovery for several years Review of Systems Constitutional: Reports as per HPI Mental Status Exam Mental Status Exam Patient Appearance: Appropriate Level of Consciousness: Awake and Appropriate Patient Behavior: Appropriate Mood Description: Calm Affect Description: Calm Speech Pattern: Clear Hallucinations: None Depressive Symptoms: Increased Anxiety Judgement: Good Diagnostics Vital Signs (24Hr): Vital Signs - 24 hr 03/29/24 14:52 03/29/24 15:20 03/29/24 19:45 Temperature 98.3 F 97.8 F Pulse Rate 84 80 95 Respiratory Rate 18 18 20 Blood Pressure 118/83 132/90 H Pulse Oximetry 95 100 Oxygen Delivery Method Nasal Cannula Nasal Cannula Oxygen Flow Rate 3 3 03/29/24 19:46 03/29/24 21:05 03/29/24 23:13 Temperature 97.6 F Pulse Rate 95 98 Respiratory Rate 18 20 Blood Pressure 132/90 H 116/75 Pulse Oximetry 96 Oxygen Delivery Method Nasal Cannula Oxygen Flow Rate 3 03/30/24 03:32 03/30/24 07:29 03/30/24 08:00 Temperature 97.3 F 97.6 F Pulse Rate 102 H 74 94 Respiratory Rate 20 18 18 Blood Pressure 104/74 90/70 Pulse Oximetry 94 97 Oxygen Delivery Method Nasal Cannula Room Air Oxygen Flow Rate 3 03/30/24 09:36 03/30/24 09:38 03/30/24 11:25 Temperature Pulse Rate 109 H 95 Respiratory Rate 18 Blood Pressure 102/76 102/76 Pulse Oximetry Oxygen Delivery Method Oxygen Flow Rate BMI result Body Mass Index 23.2 Labs 03/29/24 05:43 03/30/24 05:55 Labs: Laboratory Results - last 48 hr 03/28/24 03/28/24 03/28/24 12:54 12:59 13:04 WBC RBC Hgb Hct MCV MCH MCHC RDW Plt Count MPV Immature Gran % (Auto) Neut % (Auto) Lymph % (Auto) [place] % (Auto) Eos % (Auto) Baso % (Auto) Lymph # (Auto) [place] # (Auto) Eos # (Auto) Baso # (Auto) Abs Immat Gran (auto) Absolute Neuts (auto) Absolute Nucleated RBC Nucleated RBC % (auto) Hold Purple Top VBG pH 7.32 VBG pCO2 38 VBG pO2 51 VBG HCO3 20 L VBG O2 Saturation 85.0 VBG Base Excess -5.2 Sodium Potassium Chloride Carbon Dioxide Anion Gap BUN Creatinine Estim Creat Clear Calc Estimated GFR POC Glucose Random Glucose Estimat Average Glucose 111 Hemoglobin A1c % 5.5 Calcium Nasal Screen MRSA (PCR) NEGATIVE Nasal S. aureus Screen POSITIVE A Nasal MRSA/S.aureus Interp SEE NOTE Random Vancomycin Urine Opiates Screen Ur Buprenorphine Scrn Ur Oxycodone Screen Urine Methadone Screen Urine Fentanyl Screen Ur Barbiturates Screen Ur Phencyclidine Scrn Ur Amphetamines Screen U Benzodiazepines Scrn Urine Cocaine Screen U Marijuana (THC) Screen 03/28/24 03/28/24 03/29/24 18:32 20:40 05:43 WBC 4.7 L RBC 4.72 Hgb 11.2 L Hct 35.6 L MCV 75.4 L MCH 23.7 L MCHC 31.5 RDW 13.6 Plt Count 174 MPV 11.0 Immature Gran % (Auto) 0.4 Neut % (Auto) 75.0 H Lymph % (Auto) 14.0 L [place] % (Auto) 10.4 Eos % (Auto) 0.0 Baso % (Auto) 0.2 Lymph # (Auto) 0.7 L [place] # (Auto) 0.5 Eos # (Auto) 0.0 Baso # (Auto) 0.0 Abs Immat Gran (auto) 0.02 Absolute Neuts (auto) 3.5 Absolute Nucleated RBC 0.000 Nucleated RBC % (auto) 0.0 Hold Purple Top VBG pH VBG pCO2 VBG pO2 VBG HCO3 VBG O2 Saturation VBG Base Excess Sodium 139 Potassium 4.7 Chloride 107 Carbon Dioxide 24 Anion Gap 13 BUN 35 H Creatinine 2.05 H Estim Creat Clear Calc 34.0 Estimated GFR 33 POC Glucose 150 H 180 H Random Glucose 116 H Estimat Average Glucose Hemoglobin A1c % Calcium 9.7 Nasal Screen MRSA (PCR) Nasal S. aureus Screen Nasal MRSA/S.aureus Interp Random Vancomycin Urine Opiates Screen Ur Buprenorphine Scrn Ur Oxycodone Screen Urine Methadone Screen Urine Fentanyl Screen Ur Barbiturates Screen Ur Phencyclidine Scrn Ur Amphetamines Screen U Benzodiazepines Scrn Urine Cocaine Screen U Marijuana (THC) Screen 03/29/24 03/29/24 03/29/24 07:38 11:20 16:30 WBC RBC Hgb Hct MCV MCH MCHC RDW Plt Count MPV Immature Gran % (Auto) Neut % (Auto) Lymph % (Auto) [place] % (Auto) Eos % (Auto) Baso % (Auto) Lymph # (Auto) [place] # (Auto) Eos # (Auto) Baso # (Auto) Abs Immat Gran (auto) Absolute Neuts (auto) Absolute Nucleated RBC Nucleated RBC % (auto) Hold Purple Top VBG pH VBG pCO2 VBG pO2 VBG HCO3 VBG O2 Saturation VBG Base Excess Sodium Potassium Chloride Carbon Dioxide Anion Gap BUN Creatinine Estim Creat Clear Calc Estimated GFR POC Glucose 100 88 Random Glucose Estimat Average Glucose Hemoglobin A1c % Calcium Nasal Screen MRSA (PCR) Nasal S. aureus Screen Nasal MRSA/S.aureus Interp Random Vancomycin Urine Opiates Screen POSITIVE H Ur Buprenorphine Scrn Not Detected Ur Oxycodone Screen Not Detected Urine Methadone Screen Positive H Urine Fentanyl Screen Not Detected Ur Barbiturates Screen Not Detected Ur Phencyclidine Scrn Not Detected Ur Amphetamines Screen Not Detected U Benzodiazepines Scrn Not Detected Urine Cocaine Screen Not Detected U Marijuana (THC) Screen Not Detected 03/29/24 03/29/24 03/30/24 16:32 20:03 05:55 WBC RBC Hgb Hct MCV MCH MCHC RDW Plt Count MPV Immature Gran % (Auto) Neut % (Auto) Lymph % (Auto) [place] % (Auto) Eos % (Auto) Baso % (Auto) Lymph # (Auto) [place] # (Auto) Eos # (Auto) Baso # (Auto) Abs Immat Gran (auto) Absolute Neuts (auto) Absolute Nucleated RBC Nucleated RBC % (auto) Hold Purple Top SEE NOTE VBG pH VBG pCO2 VBG pO2 VBG HCO3 VBG O2 Saturation VBG Base Excess Sodium Potassium Chloride Carbon Dioxide Anion Gap BUN Creatinine 2.46 H Estim Creat Clear Calc 28.3 Estimated GFR 27 POC Glucose 156 H 89 Random Glucose Estimat Average Glucose Hemoglobin A1c % Calcium Nasal Screen MRSA (PCR) Nasal S. aureus Screen Nasal MRSA/S.aureus Interp Random Vancomycin 9.2 L Urine Opiates Screen Ur Buprenorphine Scrn Ur Oxycodone Screen Urine Methadone Screen Urine Fentanyl Screen Ur Barbiturates Screen Ur Phencyclidine Scrn Ur Amphetamines Screen U Benzodiazepines Scrn Urine Cocaine Screen U Marijuana (THC) Screen 03/30/24 08:16 WBC RBC Hgb Hct MCV MCH MCHC RDW Plt Count MPV Immature Gran % (Auto) Neut % (Auto) Lymph % (Auto) [place] % (Auto) Eos % (Auto) Baso % (Auto) Lymph # (Auto) [place] # (Auto) Eos # (Auto) Baso # (Auto) Abs Immat Gran (auto) Absolute Neuts (auto) Absolute Nucleated RBC Nucleated RBC % (auto) Hold Purple Top VBG pH VBG pCO2 VBG pO2 VBG HCO3 VBG O2 Saturation VBG Base Excess Sodium Potassium Chloride Carbon Dioxide Anion Gap BUN Creatinine Estim Creat Clear Calc Estimated GFR POC Glucose 116 H Random Glucose Estimat Average Glucose Hemoglobin A1c % Calcium Nasal Screen MRSA (PCR) Nasal S. aureus Screen Nasal MRSA/S.aureus Interp Random Vancomycin Urine Opiates Screen Ur Buprenorphine Scrn Ur Oxycodone Screen Urine Methadone Screen Urine Fentanyl Screen Ur Barbiturates Screen Ur Phencyclidine Scrn Ur Amphetamines Screen U Benzodiazepines Scrn Urine Cocaine Screen U Marijuana (THC) Screen Medications Medications Current Medications Abacavir Sulfate (Abacavir Sulfate 300 Mg Tablet) 600 mg PO DAILY [facility] Last Admin: 03/30/24 09:36 Dose: 600 mg Acetaminophen (Acetaminophen 325 Mg Tablet) 650 mg PO Q6H PRN PRN Reason: Pain, Mild (Pain Scale 1-3), fever or headache Albuterol Sulfate (Albuterol Sulfate 90 Mcg 8 Gm Inhaler) 2 puff INHALE Q4H PRN PRN Reason: Wheezing Albuterol/Ipratropium (Albuterol/Iprat 2.5/0.5mg 3 Ml Ampul.Neb) 3 ml INHALE RQ4H WHILE AWAKE [facility] Last Admin: 03/30/24 11:24 Dose: 3 ml Ascorbic Acid (Ascorbic Acid 500 Mg Tablet) 500 mg PO DAILY [facility] Last Admin: 03/30/24 09:36 Dose: 500 mg Aspirin (Aspirin Enteric Coated 81 Mg Tablet.Dr) 81 mg PO DAILY [facility] Last Admin: 03/30/24 09:36 Dose: 81 mg Calcium Carbonate (Calcium Carbonate 750 Mg Tab.Chew) 750 mg PO Q4H PRN PRN Reason: Heartburn Dexamethasone Sodium Phosphate (Dexamethasone Sod Phosphate 4 Mg/Ml Vial) 6 mg IVPUSH DAILY [facility] Last Admin: 03/30/24 09:39 Dose: 6 mg Dolutegravir Sodium (Dolutegravir Sodium 50 Mg Tablet) 50 mg PO DAILY [facility] Last Admin: 03/30/24 09:36 Dose: 50 mg Glucose (Glucose Gel 15 Gm Gel..Gram.) 15 gm PO Q15M PRN; Protocol PRN Reason: per Hypoglycemia Standing Ord. Guaifenesin (Guaifenesin 100 Mg/5 Ml Liquid) 10 ml PO Q4H PRN PRN Reason: Cough Guaifenesin/Codeine Phosphate (Guaifen/Codeine Sf 200/20/10ml 10 Ml Liquid) 5 ml PO Q4H [facility] Last Admin: 03/30/24 09:36 Dose: 5 ml Heparin Sodium (Porcine) (Heparin Sodium,Porcine 5,000 Unit/Ml Vial) 5,000 unit SUBCUT Q12H [facility] Last Admin: 03/30/24 02:59 Dose: Not Given Cefepime HCl 1 gm/ Sodium (Chloride) 50 mls @ 100 mls/hr IV Q12H [facility] Last Infusion: 03/30/24 05:46 Dose: Infused Dextrose (D10) 250 mls @ 750 mls/hr IV Q15M PRN; Protocol PRN Reason: per Hypoglycemia Standing Ord. Vancomycin HCl 1,000 mg/ (Sodium Chloride) 270 mls @ 270 mls/hr IV Q24H [facility] Insulin Human Lispro (Insulin Lispro 100 Unit/Ml 3 Ml Vial) 0 unit SUBCUT QIDACHS [facility]; Protocol Last Admin: 03/30/24 08:29 Dose: Not Given Lamivudine (Lamivudine 100 Mg/10 Ml Solution) 100 mg PO DAILY [facility] Lamotrigine (Lamotrigine 25 Mg Tablet) 25 mg PO BID [facility] Last Admin: 03/30/24 09:36 Dose: 25 mg Magnesium Hydroxide (Milk Of Magnesia 30 Ml Oral.Susp) 30 ml PO DAILY PRN PRN Reason: Constipation Melatonin (Melatonin 3 Mg Tablet) 6 mg PO BEDTIME PRN PRN Reason: Insomnia Last Admin: 03/29/24 21:06 Dose: 6 mg Melatonin (Melatonin 3 Mg Tablet) 9 mg PO BEDTIME PRN PRN Reason: sleep Metoprolol Tartrate (Metoprolol Tartrate 25 Mg Tablet) 25 mg PO DAILY [facility]; Protocol Last Admin: 03/30/24 09:36 Dose: 25 mg Non-Formulary Medication (Magnesium Glycinate) 100 mg PO BEDTIME [facility] Last Admin: 03/29/24 22:07 Dose: Not Given Pantoprazole Sodium (Pantoprazole Sodium 20 Mg Tablet.Dr) 40 mg PO BID [facility] Last Admin: 03/30/24 09:38 Dose: 40 mg Pharmacy Consult (Consult Rx Vancomycin Dosing) 1 each MISCELLANE DAILY PRN PRN Reason: Consult order Quetiapine Fumarate (Quetiapine Fumarate 100 Mg Tablet) 100 mg PO BEDTIME [facility] Last Admin: 03/29/24 21:06 Dose: 100 mg Simethicone (Simethicone 80 Mg Tab.Chew) 80 mg PO Q6H PRN PRN Reason: BLOADING Sodium Bicarbonate (Sodium Bicarbonate 650 Mg Tablet) 650 mg PO DAILY [facility] Last Admin: 03/30/24 09:36 Dose: 650 mg Sodium Chloride (0.9 % Sodium Chloride Flush 3 Ml Syringe) 3 ml IVFLUSH QSHIFT [facility] Last Admin: 03/30/24 09:39 Dose: 3 ml Tiotropium [place] (Tiotropium [place] 2.5 Mcg 1 Puff/2.5 Mcg Mist.Inhal) 2 puff INHALE RDAILY [facility] Last Admin: 03/30/24 07:27 Dose: 2 puff Torsemide (Torsemide 20 Mg Tablet) 40 mg PO BID [facility] Last Admin: 03/30/24 09:38 Dose: 40 mg Vitamin D (Cholecalciferol (Vitamin D3) 25 Mcg Tablet) 50 mcg PO DAILY [facility] Last Admin: 03/30/24 09:36 Dose: 50 mcg Allergies Allergies Allergy/AdvReac Type Severity Reaction Status Date / Time No Known Allergies Allergy Unverified 03/28/24 04:31 Assessment & Plan Assessment & Plan (1) Opioid use disorder: Status: Acute Code(s): F11.90 - Opioid use, unspecified, uncomplicated Assessment and Plan: repeat EKG still showing prolonged QT--discussed with patient concerns related to this and other comorbid conditions; patient agreeable to suboxone last dose of oxycodone at 9pm on 03/29. 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
[2024-03-30 11:59] LABS: Glucose, Whole Blood 140 mg/dL (60-115)
[2024-03-30] MEDS: vancomycin HCL 1,000 MG in 0.9 % Sodium Chloride 250 ML 270 MG IV (12:20)
[2024-03-30] MEDS: Heparin Sodium,Porcine 5,000 UNIT/ML VIAL 5000 UNIT SUBCUT (12:20)
[2024-03-30] MEDS: LAMIVUDINE PO (13:40)
[2024-03-30 16:43] LABS: Glucose, Whole Blood 195 mg/dL (60-115)
[2024-03-30] MEDS: Buprenorphine/Naloxone 2/0.5mg FILM 1 FILM SUBLINGUAL (16:43)
[2024-03-30] MEDS: Insulin Lispro 100 UNIT/ML 3 ML VIAL SUBCUT (16:43)
--- NOTE | 2024-03-30 17:02 | P.CDIM_ITS ---
PROVIDER RESPONSE TEXT: To clarify, the appropriate diagnosis supported by the clinical indicators: Acute QUERY TEXT: PHYSICIAN'S DOCUMENTATION REQUEST Date of Query: 03/30/2024 07:26 AM EDT Patient Name: Earl Rincon Admit Date: 03/28/2024 Dear Ester Frost MD, A review of the medical record indicates additional documentation may be needed. Please review below and update the documentation accordingly. Clinical Indicators: Progress note within the Plan - Lactic acidosis 3.6, improved to 1.9 Clarify which of the following accurately represents the acuity of the lactic acidosis: Possible options might include: Acute Chronic Other (explain) Clinically unable to determine (explain) Thank you, Alla Nuno, CCS, CDIS Use of terms such as suspected, likely, concern for, or probable (associated with a specific diagnosi s that is being evaluated, monitored, or treated as if it exists) are acceptable and can be coded in the inpatient se tting, when documented at the time of discharge. Please use your independent medical judgment in providing your response. THIS QUERY IS PART OF THE PERMANENT MEDICAL RECORD
--- NOTE | 2024-03-30 17:03 | HO.PM.IMPN ---
Subjective Subjective Date of Service: 03/30/24 Interval History: sob ,cough Review of Systems sob/hypoxia improving denies any chest pain Physical Exam Vital Signs: Vital Signs: Last Vital Signs Temp 97.3 F 03/30/24 16:00 Pulse 96 03/30/24 16:00 Resp 18 03/30/24 16:00 BP 101/69 03/30/24 16:00 Pulse Ox 96 03/30/24 16:00 O2 Del Method Nasal Cannula 03/30/24 16:00 O2 Flow Rate 2 03/30/24 16:00 FiO2 35.5 03/29/24 00:00 BMI result Body Mass Index 23.2 Appearance: Alert.? Oriented X3.? cvs: rrr, [id number] . res: clear to auscultation ,no rhonchii or wheezing abd: no rebound or guarding ,nt, bs present. ext pulses present , no cyanosis . neuro: axo3 , nonfocal. Objective Data Active Medications Abacavir Sulfate (Abacavir Sulfate 300 Mg Tablet) 600 mg PO DAILY REPLACED BY [facility] Last Admin: 03/30/24 09:36 Dose: 600 mg Documented By: MARIBEL Acetaminophen (Acetaminophen 325 Mg Tablet) 650 mg PO Q6H PRN PRN Reason: Pain, Mild (Pain Scale 1-3), fever or headache Albuterol Sulfate (Albuterol Sulfate 90 Mcg 8 Gm Inhaler) 2 puff INHALE Q4H PRN PRN Reason: Wheezing Albuterol/Ipratropium (Albuterol/Iprat 2.5/0.5mg 3 Ml Ampul.Neb) 3 ml INHALE RQ4H WHILE AWAKE REPLACED BY [facility] Last Admin: 03/30/24 15:57 Dose: 3 ml Documented By: RICHARD Amoxicillin/Clavulanate Potassium (Amoxicillin/Potassium Clav 875 Mg Tablet) 875 mg PO Q12H REPLACED BY [facility] Ascorbic Acid (Ascorbic Acid 500 Mg Tablet) 500 mg PO DAILY REPLACED BY [facility] Last Admin: 03/30/24 09:36 Dose: 500 mg Documented By: MARIBEL Aspirin (Aspirin Enteric Coated 81 Mg Tablet.) 81 mg PO DAILY REPLACED BY [facility] Last Admin: 03/30/24 09:36 Dose: 81 mg Documented By: MARIBEL Buprenorphine/Naloxone (Buprenorphine/Naloxone 2/0.5mg Film) 1 film SUBLINGUAL DAILY REPLACED BY [facility] Last Admin: 03/30/24 16:43 Dose: 1 film Documented By: MARIBEL Calcium Carbonate (Calcium Carbonate 750 Mg Tab.Chew) 750 mg PO Q4H PRN PRN Reason: Heartburn Dexamethasone Sodium Phosphate (Dexamethasone Sod Phosphate 4 Mg/Ml Vial) 6 mg IVPUSH DAILY REPLACED BY [facility] Last Admin: 03/30/24 09:39 Dose: 6 mg Documented By: MARIBEL Dolutegravir Sodium (Dolutegravir Sodium 50 Mg Tablet) 50 mg PO DAILY REPLACED BY [facility] Last Admin: 03/30/24 09:36 Dose: 50 mg Documented By: MARIBEL Doxycycline Monohydrate (Doxycycline Monohydrate 100 Mg Capsule) 100 mg PO Q12H REPLACED BY [facility] Glucose (Glucose Gel 15 Gm Gel..Gram.) 15 gm PO Q15M PRN; Protocol PRN Reason: per Hypoglycemia Standing Ord. Guaifenesin (Guaifenesin 100 Mg/5 Ml Liquid) 10 ml PO Q4H PRN PRN Reason: Cough Guaifenesin/Codeine Phosphate (Guaifen/Codeine Sf 200/20/10ml 10 Ml Liquid) 5 ml PO Q4H REPLACED BY [facility] Last Admin: 03/30/24 16:42 Dose: 5 ml Documented By: MAIRBEL Heparin Sodium (Porcine) (Heparin Sodium,Porcine 5,000 Unit/Ml Vial) 5,000 unit SUBCUT Q12H REPLACED BY [facility] Last Admin: 03/30/24 12:20 Dose: 5,000 unit Documented By: MARIBEL Dextrose (D10) 250 mls @ 750 mls/hr IV Q15M PRN; Protocol PRN Reason: per Hypoglycemia Standing Ord. Insulin Human Lispro (Insulin Lispro 100 Unit/Ml 3 Ml Vial) 0 unit SUBCUT QIDACHS REPLACED BY [facility]; Protocol Last Admin: 03/30/24 16:43 Dose: 2 unit Documented By: MARIBEL Lamivudine (Lamivudine 100 Mg/10 Ml Solution) 100 mg PO DAILY REPLACED BY [facility] Last Admin: 03/30/24 13:40 Dose: 100 mg Documented By: MARIBEL Comments: Given late; waiting on pharmacy to bring up. Lamotrigine (Lamotrigine 25 Mg Tablet) 25 mg PO BID REPLACED BY [facility] Last Admin: 03/30/24 09:36 Dose: 25 mg Documented By: MARIBEL Magnesium Hydroxide (Milk Of Magnesia 30 Ml Oral.Susp) 30 ml PO DAILY PRN PRN Reason: Constipation Melatonin (Melatonin 3 Mg Tablet) 6 mg PO BEDTIME PRN PRN Reason: Insomnia Last Admin: 03/29/24 21:06 Dose: 6 mg Documented By: NIVIA Metoprolol Tartrate (Metoprolol Tartrate 25 Mg Tablet) 25 mg PO DAILY REPLACED BY [facility]; Protocol Last Admin: 03/30/24 09:36 Dose: 25 mg Documented By: MARIBEL Non-Formulary Medication (Magnesium Glycinate) 100 mg PO BEDTIME REPLACED BY [facility] Last Admin: 03/29/24 22:07 Dose: Not Given Documented By: NIVIA Non-Admin Reason: Med Not Available Pantoprazole Sodium (Pantoprazole Sodium 20 Mg Tablet.Dr) 40 mg PO BID REPLACED BY [facility] Last Admin: 03/30/24 09:38 Dose: 40 mg Documented By: MARIBEL Quetiapine Fumarate (Quetiapine Fumarate 100 Mg Tablet) 100 mg PO BEDTIME REPLACED BY [facility] Last Admin: 03/29/24 21:06 Dose: 100 mg Documented By: NIVIA Simethicone (Simethicone 80 Mg Tab.Chew) 80 mg PO Q6H PRN PRN Reason: BLOADING Sodium Bicarbonate (Sodium Bicarbonate 650 Mg Tablet) 650 mg PO DAILY REPLACED BY [facility] Last Admin: 03/30/24 09:36 Dose: 650 mg Documented By: MARIBEL Sodium Chloride (0.9 % Sodium Chloride Flush 3 Ml Syringe) 3 ml IVFLUSH QSHIFT REPLACED BY [facility] Last Admin: 03/30/24 16:45 Dose: 3 ml Documented By: MARIBEL Tiotropium [place] (Tiotropium [place] 2.5 Mcg 1 Puff/2.5 Mcg Mist.Inhal) 2 puff INHALE RDAILY REPLACED BY [facility] Last Admin: 03/30/24 07:27 Dose: 2 puff Documented By: RICHARD Torsemide (Torsemide 20 Mg Tablet) 40 mg PO BID REPLACED BY [facility] Last Admin: 03/30/24 09:38 Dose: 40 mg Documented By: MARIBEL Vitamin D (Cholecalciferol (Vitamin D3) 25 Mcg Tablet) 50 mcg PO DAILY REPLACED BY [facility] Last Admin: 03/30/24 09:36 Dose: 50 mcg Documented By: MARIBEL Labs 03/29/24 05:43 08/22/24 05:55 Labs: Laboratory Results - last 24 hr 03/29/24 03/30/24 03/30/24 20:03 05:55 08:16 Hold Purple Top SEE NOTE Estim Creat Clear Calc 28.3 Estimated GFR 27 POC Glucose 89 116 H Random Vancomycin 9.2 L 03/30/24 03/30/24 11:29 16:36 Hold Purple Top Estim Creat Clear Calc Estimated GFR POC Glucose 140 H 195 H Random Vancomycin Microbiology Microbiology Results: Microbiology 03/28/24 04:58 Blood Culture - Preliminary Blood - Venous No growth after 48 hours. 03/28/24 04:44 Blood Culture - Preliminary Blood - Venous No growth after 48 hours. Assessment and Plan (1) Prolonged QT interval: Status: Acute Plan 63-year-old male with history of cocaine and heroin abuse in remission, HIV on HAART therapy, nonischemic cardiomyopathy, COPD, heart failure with reduced ejection fraction, CKD stage 3, TERRY occasionally compliant with CPAP, history of hepatitis-C, mood disorder admitted for COVID 19 with acute respiratory failure and hypoxemic respiratory failure Acute COVID-19 infection with acute hypoxemic respiratory failure with acute respiratory acidosis -CXR pending but appears to have Right middle/lower lobar pneumonia. +for COVID 19 -VBG with ph 7.32/38/51 Patient received BiPAP in the ED, high-flow Plan: Continue IV decadron 6mg daily,guaifenesin ac,duonebs,ID consult Follow cbc, cultures Acute pneumonia with severe sepsis sepsis and acute lactic acidosis resolved. blood culture neg@48hrs -CXR final read pending but appears consistent with r sided pneumonia d/w Id sepsis seems improved ,switched antibiotics po. Prolonged qtc-imrpoving on ekg has some pvc -avoid qtc prolonging agents -keep K>4, Mg >2 HIV -last CD4 >500, viral load undetectable -continue HAART -ID consult Hx polysubstance abuse -previously on methadone but while at SNF given oxycodone. Would like to resume methadone -addiction med consult COPD -no acute exacerbation -continue home inhalers, duonebs, decadron as above NICM -continue bb, asa Mood disorder -continue home meds dvt prophylaxis- heparin full code ongoing need for stay: due to COVID 19 with acute respiratory acidosis and hypoxia on requiring oxygen,ov sterois,antibiotics, expert consultation, and close monitoring of hemodyanamic. Quality Stroke Does the patient have a stroke diagnosis?: No VTE Prior VTE?: No VTE Risk Level:: Medical - moderate - high VTE Device Contraindication: Treatment Not Indicated VTE Drug Contraindication: N/A - Med Ordered
[2024-03-30] MEDS: Amoxicillin/Potassium Clav 875 MG TABLET PO (17:13)
[2024-03-30] MEDS: Doxycycline Monohydrate 100 MG CAPSULE PO (17:13)
[2024-03-30 19:25] LABS: Magnesium 1.8 mg/dL (1.6-2.6); Potassium 4.6 mmol/L (3.3-5.1)
--- NOTE | 2024-03-30 19:38 | MHC.RECOVSUP ---
? Reason for consult Recovery Support o Current location: [facility] o Identified substance use concern: Heroin - Support ? Intervention: o Community resources provided o Harm reduction discussion ? Plan: o Patient to follow up with [facility] after discharge ? Additional information: Met with Patient and we talked about recovery and the different Pathway.. we also had a Harm reduction talk. Patient stated that he would like a pipe recovery specialist.
[2024-03-30 21:24] LABS: Glucose, Whole Blood 126 mg/dL (60-115)
[2024-03-30] MEDS: QUEtiapine Fumarate 100 MG TABLET PO (22:04)
[2024-03-30] MEDS: Magnesium Sulfate/H2O 2 GM/50 ML PIGGYBACK IV (22:05)
[2024-03-30] MEDS: Melatonin 3 MG TABLET 6 MG PO (22:19)
[2024-03-31] VITALS (13 sets, daily range): BP systolic 99–116; BP diastolic 65–90; PULSE 76–103; RESP 18–20; TEMP 36–36.9; O2SAT 94–100
[2024-03-31] MEDS: 0.9 % Sodium Chloride Flush 3 ML SYRINGE IVFLUSH ×3 (00:30→17:34)
[2024-03-31 04:14] LABS: Strep Pneumo Ag urine Not Detected (Not Detected)
[2024-03-31] MEDS: guaiFEN/Codeine SF 200/20/10ML 10 ML LIQUID 5 ML PO ×5 (04:53→21:26)
[2024-03-31] MEDS: Doxycycline Monohydrate 100 MG CAPSULE PO ×2 (04:53→17:34)
[2024-03-31] MEDS: Amoxicillin/Potassium Clav 875 MG TABLET PO ×2 (04:53→17:33)
--- NOTE | 2024-03-31 07:00 | CA_ITS ---
Transthoracic Echocardiogram Patient (Last, First, Middle): Earl Rincon, Gender: Male Date of : 1960 Age: 63 Procedure Date: 03/31/2024 Procedure Type: Transthoracic [place] [facility] [place]: 170. cm Weight: 66.68 kg BSA: 1.77 m2 Heart Rate: 98 bpm BP: 105 / 65 mmHg Quantitative Strategy Analyst: JAMEEL Referring MD: Ester Frost MD Symptoms: Qtc prolong , multiple pvc - cardiomyopathy Study Quality: Fair ECG Rhythm: Sinus Conclusions: - Normal left ventricular cavity size. There is normal left ventricular wall thickness. The left ventricular systolic function is borderline reduced. The visually estimated ejection fraction is between 45-50%. - Normal right ventricular cavity size. There is borderline right ventricular systolic function. Findings Left Ventricle Normal left ventricular cavity size. There is normal left ventricular wall thickness. The left ventricular systolic function is borderline reduced. The visually estimated ejection fraction is between 45-50%. There is no evidence of regional wall motion abnormalities. Diastolic function is indeterminate on the basis of available data. Right Ventricle Normal right ventricular cavity size. There is borderline right ventricular systolic function. Atria The left atrium is normal in size. The right atrium is normal in size. Aortic Valve The aortic valve was not well visualized. There is no aortic valve stenosis. There is no aortic valve regurgitation. Mitral Valve Normal mitral valve structure and function. There is no mitral valve regurgitation. There is no mitral valve stenosis. Pulmonic Valve The pulmonic valve was not well visualized. Tricuspid Valve Likely normal tricuspid valve structure and function. Tricuspid regurgitation envelope is inadequate for calculation of right ventricular systolic pressure. Normal right atrial pressure. Great Vessels There is mild dilatation of the ascending aorta measuring 3.60 cm. Venous The inferior vena cava is normal in size and collapses greater than 50% with inspiration. Pericardium/Pleural There is no evidence of pericardial effusion. Prior Study Comparison Changes noted compared to prior study dated: 10/04/2023. EF 45 to 50%. Measurements 2D Linear Measurements IVSd: 0.73 0.6-0.9/0.6-1.0 cm LVIDd: 4.92 3.9-5.3/4.2-5.9 cm LVIDd Index: 2.78 2.4-3.2/2.2-3.1 cm/m2 LVIDs: 4.23 2.0-3.6 cm LVPWd: 1.07 0.7-1.1 cm LA Diam: 2.20 2.7-3.8/3.0-4.0 cm LAIDs Index: 1.24 1.5-2.3 cm/m2 LV Mass: 191.32 67-162/88-224 g LV Mass Index: 108.09 43-95/49-115 g/m2 LVOT Diam: 1.90 3.0+(-)1.3 cm 2D Systolic Function EF 4C: 59.60 >55% EF 2C: 55.60 >55% EF BiP: 57.70 >55% Mitral Valve E'Lateral: 5.87 E'Medial: 5.22 Aortic Valve AoV Pk Isaías: 1.02 AoV Mn Isaías: 0.70 AoV VTI: 0.14 AoV Pk Grad: 4.00 Aov Mn Grad: 2.00 ARJUN Cont.VTI: 2.08 LVOT LVOT Pk Isaías: 0.83 LVOT Mn Isaías: 0.58 LVOT VTI: 0.10 LVOT Pk Grad: 3.00 LVOT Mn Grad: 2.00 LVOT Diam: 1.90 LVOT Area: 2.84 Diastolic Function E'Medial: 5.22 E' Laterial: 5.87 Right Ventricle TAPSE (mm): 15.00 TVS' Isaías: 7.07 Great Vessels Aorta Sinus of Valsalva: 3.40 2.0-3.5 cm Ao Asc: 3.60 2.1-3.4 cm Pulmonary Valve PV Pk Isaías: 0.83 Peak PV Grad: 3.00 Updated in Other Vendor System with Status of Final Homar Nash MD electronically signed on 03/31/2024 8:27:54 PM with status of Final
[2024-03-31 07:05] LABS: Creatinine Clr Calc Pharmacy 24.5; Estimated Glomerular Filt Rate 23
[2024-03-31] MEDS: Tiotropium Bromide 2.5 mcg 1 PUFF/2.5 MCG MIST.INHAL 2 PUFF INHALE (07:23)
[2024-03-31] MEDS: Albuterol/Iprat 2.5/0.5MG 3 ML AMPUL.NEB INHALE ×4 (07:23→19:26)
[2024-03-31 07:42] LABS: Glucose, Whole Blood 111 mg/dL (60-115)
[2024-03-31] MEDS: lamoTRIgine 25 MG TABLET PO ×2 (09:34→21:28)
[2024-03-31] MEDS: Pantoprazole Sodium 20 MG TABLET.DR 40 MG PO (09:34)
[2024-03-31] MEDS: Cholecalciferol (Vitamin D3) 25 MCG TABLET 50 MCG PO (09:34)
[2024-03-31] MEDS: Torsemide 20 MG TABLET 40 MG PO (09:34)
[2024-03-31] MEDS: Magnesium Oxide 400 MG TABLET PO ×2 (09:34→17:34)
[2024-03-31] MEDS: Sodium Bicarbonate 650 MG TABLET PO (09:34)
[2024-03-31] MEDS: Aspirin Enteric Coated 81 MG TABLET.DR PO (09:35)
[2024-03-31] MEDS: dexAMETHasone sod phosphate 4 MG/ML VIAL 6 MG IVPUSH (09:35)
[2024-03-31] MEDS: Dolutegravir Sodium 50 MG TABLET PO (09:35)
[2024-03-31] MEDS: Metoprolol Tartrate 25 MG TABLET PO (09:35)
[2024-03-31] MEDS: Buprenorphine/Naloxone 4/1 mg FILM 1 FILM SUBLINGUAL ×2 (09:35→14:02)
[2024-03-31] MEDS: LAMIVUDINE PO (09:35)
[2024-03-31] MEDS: Ascorbic Acid 500 MG TABLET PO (09:35)
[2024-03-31] MEDS: Magnesium Sulfate/D5W 1 GM/100 ML PIGGYBACK IV (10:46)
[2024-03-31 11:35] LABS: Glucose, Whole Blood 143 mg/dL (60-115)
[2024-03-31] MEDS: Heparin Sodium,Porcine 5,000 UNIT/ML VIAL 5000 UNIT SUBCUT (12:38)
--- NOTE | 2024-03-31 13:09 | MHC.CM.PN ---
EMR REVIEWED, PT W/COVID19 IMPROVING HOWEVER NOT YET READY FOR DC, RECOVERY TEAM FOLLOWING AND PT STARTED ON SUBOXONE, ANTIC PT WILL DC HOME NO SERVICES AND OUTPT FOLLOW-UP W/CCC ONCE MEDICALLY CLEARED.
[2024-03-31] MEDS: Acetaminophen 325 MG TABLET 650 MG PO (14:02)
--- NOTE | 2024-03-31 15:21 | P.PNADD_ITS ---
Subjective Subjective Date of Service: 03/31/24 Reason For Visit: covid hypoxia Interim History: Patient seen in follow up Suboxone 4mg this morning Reports some effectiveness--does want to increase dose and wants to take 8mg in the morning Denies withdrawal sx Review of Systems Constitutional: Reports as per HPI and Reports no additional constitutional complaints Mental Status Exam Mental Status Exam Patient Appearance: Appropriate Level of Consciousness: Awake, Appropriate and Alert Patient Behavior: Appropriate and Cooperative Mood Description: Calm Affect Description: Calm Speech Pattern: Clear Diagnostics Vital Signs (24Hr): Vital Signs - 24 hr 03/30/24 15:57 03/30/24 16:00 03/30/24 19:34 Temperature 97.3 F 96.7 F L Pulse Rate 93 96 90 Respiratory Rate 20 18 20 Blood Pressure 101/69 99/64 Pulse Oximetry 96 96 Oxygen Delivery Method Nasal Cannula Nasal Cannula Oxygen Flow Rate 2 2 03/30/24 20:33 03/30/24 22:07 03/30/24 23:51 Temperature 97.5 F Pulse Rate 99 93 Respiratory Rate 20 16 Blood Pressure 100/62 101/64 Pulse Oximetry 96 Oxygen Delivery Method Nasal Cannula Oxygen Flow Rate 2 03/31/24 00:00 03/31/24 04:00 03/31/24 04:00 Temperature 98.5 F Pulse Rate 94 Respiratory Rate 20 Blood Pressure 105/65 Pulse Oximetry 95 99 95 Oxygen Delivery Method Nasal Cannula Nasal Cannula Nasal Cannula Oxygen Flow Rate 3 2 3 03/31/24 07:24 03/31/24 08:00 03/31/24 11:07 Temperature 97.5 F Pulse Rate 86 89 89 Respiratory Rate 20 20 20 Blood Pressure 107/80 Pulse Oximetry 97 Oxygen Delivery Method Room Air Oxygen Flow Rate 03/31/24 12:00 Temperature 97.2 F Pulse Rate 102 H Respiratory Rate 20 Blood Pressure 99/74 Pulse Oximetry 94 Oxygen Delivery Method Room Air Oxygen Flow Rate BMI result Body Mass Index 23.2 Labs 03/29/24 05:43 03/31/24 06:41 Labs: Laboratory Results - last 48 hr 03/28/24 03/29/24 03/29/24 10:27 16:30 16:32 Hold Purple Top Potassium Creatinine Estim Creat Clear Calc Estimated GFR POC Glucose 156 H Magnesium Random Vancomycin Urine Opiates Screen POSITIVE H Ur Buprenorphine Scrn Not Detected Ur Oxycodone Screen Not Detected Urine Methadone Screen Positive H Urine Fentanyl Screen Not Detected Ur Barbiturates Screen Not Detected Ur Phencyclidine Scrn Not Detected Ur Amphetamines Screen Not Detected U Benzodiazepines Scrn Not Detected Urine Cocaine Screen Not Detected U Marijuana (THC) Screen Not Detected Ur Strep pneumoniae Ag Not Detected 03/29/24 03/30/24 03/30/24 20:03 05:55 08:16 Hold Purple Top SEE NOTE Potassium Creatinine 2.46 H Estim Creat Clear Calc 28.3 Estimated GFR 27 POC Glucose 89 116 H Magnesium Random Vancomycin 9.2 L Urine Opiates Screen Ur Buprenorphine Scrn Ur Oxycodone Screen Urine Methadone Screen Urine Fentanyl Screen Ur Barbiturates Screen Ur Phencyclidine Scrn Ur Amphetamines Screen U Benzodiazepines Scrn Urine Cocaine Screen U Marijuana (THC) Screen Ur Strep pneumoniae Ag 03/30/24 03/30/24 03/30/24 11:29 16:36 17:37 Hold Purple Top Potassium 4.6 Creatinine Estim Creat Clear Calc Estimated GFR POC Glucose 140 H 195 H Magnesium 1.8 Random Vancomycin Urine Opiates Screen Ur Buprenorphine Scrn Ur Oxycodone Screen Urine Methadone Screen Urine Fentanyl Screen Ur Barbiturates Screen Ur Phencyclidine Scrn Ur Amphetamines Screen U Benzodiazepines Scrn Urine Cocaine Screen U Marijuana (THC) Screen Ur Strep pneumoniae Ag 03/30/24 03/31/24 03/31/24 21:14 06:41 07:08 Hold Purple Top Potassium Creatinine 2.84 H Estim Creat Clear Calc 24.5 Estimated GFR 23 POC Glucose 126 H 111 Magnesium Random Vancomycin Urine Opiates Screen Ur Buprenorphine Scrn Ur Oxycodone Screen Urine Methadone Screen Urine Fentanyl Screen Ur Barbiturates Screen Ur Phencyclidine Scrn Ur Amphetamines Screen U Benzodiazepines Scrn Urine Cocaine Screen U Marijuana (THC) Screen Ur Strep pneumoniae Ag 03/31/24 11:17 Hold Purple Top Potassium Creatinine Estim Creat Clear Calc Estimated GFR POC Glucose 143 H Magnesium Random Vancomycin Urine Opiates Screen Ur Buprenorphine Scrn Ur Oxycodone Screen Urine Methadone Screen Urine Fentanyl Screen Ur Barbiturates Screen Ur Phencyclidine Scrn Ur Amphetamines Screen U Benzodiazepines Scrn Urine Cocaine Screen U Marijuana (THC) Screen Ur Strep pneumoniae Ag Medications Medications Current Medications Abacavir Sulfate (Abacavir Sulfate 300 Mg Tablet) 600 mg PO DAILY [facility] Last Admin: 03/31/24 09:34 Dose: 600 mg Acetaminophen (Acetaminophen 325 Mg Tablet) 650 mg PO Q6H PRN PRN Reason: Pain, Mild (Pain Scale 1-3), fever or headache Last Admin: 03/31/24 14:02 Dose: 650 mg Albuterol Sulfate (Albuterol Sulfate 90 Mcg 8 Gm Inhaler) 2 puff INHALE Q4H PRN PRN Reason: Wheezing Albuterol/Ipratropium (Albuterol/Iprat 2.5/0.5mg 3 Ml Ampul.Neb) 3 ml INHALE RQ4H WHILE AWAKE [facility] Last Admin: 03/31/24 11:06 Dose: 3 ml Amoxicillin/Clavulanate Potassium (Amoxicillin/Potassium Clav 875 Mg Tablet) 875 mg PO Q12H [facility] Last Admin: 03/31/24 04:53 Dose: 875 mg Ascorbic Acid (Ascorbic Acid 500 Mg Tablet) 500 mg PO DAILY [facility] Last Admin: 03/31/24 09:35 Dose: 500 mg Aspirin (Aspirin Enteric Coated 81 Mg Tablet.Dr) 81 mg PO DAILY [facility] Last Admin: 03/31/24 09:35 Dose: 81 mg Buprenorphine/Naloxone (Buprenorphine/Naloxone 8/2 Mg Film) 1 film SUBLINGUAL DAILY [facility] Buprenorphine/Naloxone (Buprenorphine/Naloxone 2/0.5mg Film) 1 film SUBLINGUAL DAILY PRN PRN Reason: Opiate Withdrawal Calcium Carbonate (Calcium Carbonate 750 Mg Tab.Chew) 750 mg PO Q4H PRN PRN Reason: Heartburn Dexamethasone Sodium Phosphate (Dexamethasone Sod Phosphate 4 Mg/Ml Vial) 6 mg IVPUSH DAILY [facility] Last Admin: 03/31/24 09:35 Dose: 6 mg Dolutegravir Sodium (Dolutegravir Sodium 50 Mg Tablet) 50 mg PO DAILY [facility] Last Admin: 03/31/24 09:35 Dose: 50 mg Doxycycline Monohydrate (Doxycycline Monohydrate 100 Mg Capsule) 100 mg PO Q12H [facility] Last Admin: 03/31/24 04:53 Dose: 100 mg Glucose (Glucose Gel 15 Gm Gel..Gram.) 15 gm PO Q15M PRN; Protocol PRN Reason: per Hypoglycemia Standing Ord. Guaifenesin (Guaifenesin 100 Mg/5 Ml Liquid) 10 ml PO Q4H PRN PRN Reason: Cough Guaifenesin/Codeine Phosphate (Guaifen/Codeine Sf 200/20/10ml 10 Ml Liquid) 5 ml PO Q4H [facility] Last Admin: 03/31/24 12:38 Dose: 5 ml Heparin Sodium (Porcine) (Heparin Sodium,Porcine 5,000 Unit/Ml Vial) 5,000 unit SUBCUT Q12H [facility] Last Admin: 03/31/24 12:38 Dose: 5,000 unit Dextrose (D10) 250 mls @ 750 mls/hr IV Q15M PRN; Protocol PRN Reason: per Hypoglycemia Standing Ord. Insulin Human Lispro (Insulin Lispro 100 Unit/Ml 3 Ml Vial) 0 unit SUBCUT QIDACHS [facility]; Protocol Last Admin: 03/31/24 12:00 Dose: Not Given Lamivudine (Lamivudine 100 Mg/10 Ml Solution) 100 mg PO DAILY [facility] Last Admin: 03/31/24 09:35 Dose: 100 mg Lamotrigine (Lamotrigine 25 Mg Tablet) 25 mg PO BID [facility] Last Admin: 03/31/24 09:34 Dose: 25 mg Magnesium Hydroxide (Milk Of Magnesia 30 Ml Oral.Susp) 30 ml PO DAILY PRN PRN Reason: Constipation Magnesium Oxide (Magnesium Oxide 400 Mg Tablet) 400 mg PO BIDPC [facility] Last Admin: 03/31/24 09:34 Dose: 400 mg Melatonin (Melatonin 3 Mg Tablet) 6 mg PO BEDTIME PRN PRN Reason: Insomnia Last Admin: 03/30/24 22:19 Dose: 6 mg Metoprolol Tartrate (Metoprolol Tartrate 25 Mg Tablet) 25 mg PO DAILY [facility]; Protocol Last Admin: 03/31/24 09:35 Dose: 25 mg Non-Formulary Medication (Magnesium Glycinate) 100 mg PO BEDTIME [facility] Last Admin: 03/30/24 22:05 Dose: Not Given Pantoprazole Sodium (Pantoprazole Sodium 20 Mg Tablet.Dr) 40 mg PO BID [facility] Last Admin: 03/31/24 09:34 Dose: 40 mg Quetiapine Fumarate (Quetiapine Fumarate 100 Mg Tablet) 100 mg PO BEDTIME [facility] Last Admin: 03/30/24 22:04 Dose: 100 mg Simethicone (Simethicone 80 Mg Tab.Chew) 80 mg PO Q6H PRN PRN Reason: BLOADING Sodium Bicarbonate (Sodium Bicarbonate 650 Mg Tablet) 650 mg PO DAILY [facility] Last Admin: 03/31/24 09:34 Dose: 650 mg Sodium Chloride (0.9 % Sodium Chloride Flush 3 Ml Syringe) 3 ml IVFLUSH QSHIFT [facility] Last Admin: 03/31/24 09:35 Dose: 3 ml Tiotropium [place] (Tiotropium [place] 2.5 Mcg 1 Puff/2.5 Mcg Mist.Inhal) 2 puff INHALE RDAILY [facility] Last Admin: 03/31/24 07:23 Dose: 2 puff Vitamin D (Cholecalciferol (Vitamin D3) 25 Mcg Tablet) 50 mcg PO DAILY [facility] Last Admin: 03/31/24 09:34 Dose: 50 mcg Allergies Allergies Allergy/AdvReac Type Severity Reaction Status Date / Time No Known Allergies Allergy Unverified 03/28/24 04:31 Assessment & Plan Assessment & Plan (1) Opioid use disorder: Status: Acute Code(s): F11.90 - Opioid use, unspecified, uncomplicated Assessment and Plan: * additional 4mg dose (total of 8mg today) * tomorrow 8mg QD * PRN 2mg suboxone for any withdrawal sx or if patient requests Total time managing care of this patient today _20___ minutes.
[2024-03-31 16:19] LABS: Glucose, Whole Blood 168 mg/dL (60-115)
[2024-03-31] MEDS: Insulin Lispro 100 UNIT/ML 3 ML VIAL SUBCUT (17:34)
--- NOTE | 2024-03-31 17:38 | P.PNIM_ITS ---
Subjective Subjective Date of Service: 03/31/24 Interval History: sob ,cough Review of Systems sob andhypoxia improving no fevers Physical Exam 2 Vital Signs: Vital Signs: Last Vital Signs Temp 96.8 F 03/31/24 15:58 Pulse 97 03/31/24 15:58 Resp 20 03/31/24 15:58 BP 108/82 03/31/24 15:58 Pulse Ox 100 03/31/24 15:58 O2 Del Method Room Air 03/31/24 15:58 O2 Flow Rate 3 03/31/24 04:00 FiO2 35.5 03/29/24 00:00 BMI result Body Mass Index 23.2 Appearance: Alert.? Oriented X3.? cvs: rrr, [id number] . res: clear to auscultation ,no rhonchii or wheezing abd: no rebound or guarding ,nt, bs present. ext pulses present , no cyanosis . neuro: axo3 , nonfocal. Objective Data Active Medications Abacavir Sulfate (Abacavir Sulfate 300 Mg Tablet) 600 mg PO DAILY [facility] Last Admin: 03/31/24 09:34 Dose: 600 mg Documented By: OMAR Acetaminophen (Acetaminophen 325 Mg Tablet) 650 mg PO Q6H PRN PRN Reason: Pain, Mild (Pain Scale 1-3), fever or headache Last Admin: 03/31/24 14:02 Dose: 650 mg Documented By: OMAR Albuterol Sulfate (Albuterol Sulfate 90 Mcg 8 Gm Inhaler) 2 puff INHALE Q4H PRN PRN Reason: Wheezing Albuterol/Ipratropium (Albuterol/Iprat 2.5/0.5mg 3 Ml Ampul.Neb) 3 ml INHALE RQ4H WHILE AWAKE [facility] Last Admin: 03/31/24 15:47 Dose: 3 ml Documented By: RICHARD Amoxicillin/Clavulanate Potassium (Amoxicillin/Potassium Clav 875 Mg Tablet) 875 mg PO Q12H [facility] Last Admin: 03/31/24 17:33 Dose: 875 mg Documented By: OMAR Ascorbic Acid (Ascorbic Acid 500 Mg Tablet) 500 mg PO DAILY [facility] Last Admin: 03/31/24 09:35 Dose: 500 mg Documented By: OMAR Aspirin (Aspirin Enteric Coated 81 Mg Tablet.) 81 mg PO DAILY [facility] Last Admin: 03/31/24 09:35 Dose: 81 mg Documented By: OMAR Buprenorphine/Naloxone (Buprenorphine/Naloxone 8/2 Mg Film) 1 film SUBLINGUAL DAILY [facility] Buprenorphine/Naloxone (Buprenorphine/Naloxone 2/0.5mg Film) 1 film SUBLINGUAL DAILY PRN PRN Reason: Opiate Withdrawal Calcium Carbonate (Calcium Carbonate 750 Mg Tab.Chew) 750 mg PO Q4H PRN PRN Reason: Heartburn Dexamethasone Sodium Phosphate (Dexamethasone Sod Phosphate 4 Mg/Ml Vial) 6 mg IVPUSH DAILY [facility] Last Admin: 03/31/24 09:35 Dose: 6 mg Documented By: OMAR Dolutegravir Sodium (Dolutegravir Sodium 50 Mg Tablet) 50 mg PO DAILY [facility] Last Admin: 03/31/24 09:35 Dose: 50 mg Documented By: OMAR Doxycycline Monohydrate (Doxycycline Monohydrate 100 Mg Capsule) 100 mg PO Q12H [facility] Last Admin: 03/31/24 17:34 Dose: 100 mg Documented By: OMAR Glucose (Glucose Gel 15 Gm Gel..Gram.) 15 gm PO Q15M PRN; Protocol PRN Reason: per Hypoglycemia Standing Ord. Guaifenesin (Guaifenesin 100 Mg/5 Ml Liquid) 10 ml PO Q4H PRN PRN Reason: Cough Guaifenesin/Codeine Phosphate (Guaifen/Codeine Sf 200/20/10ml 10 Ml Liquid) 5 ml PO Q4H [facility] Last Admin: 03/31/24 17:33 Dose: 5 ml Documented By: OMAR Heparin Sodium (Porcine) (Heparin Sodium,Porcine 5,000 Unit/Ml Vial) 5,000 unit SUBCUT Q12H [facility] Last Admin: 03/31/24 12:38 Dose: 5,000 unit Documented By: OMAR Dextrose (D10) 250 mls @ 750 mls/hr IV Q15M PRN; Protocol PRN Reason: per Hypoglycemia Standing Ord. Insulin Human Lispro (Insulin Lispro 100 Unit/Ml 3 Ml Vial) 0 unit SUBCUT QIDACHS [facility]; Protocol Last Admin: 03/31/24 17:34 Dose: 2 unit Documented By: OMAR Lamivudine (Lamivudine 100 Mg/10 Ml Solution) 100 mg PO DAILY [facility] Last Admin: 03/31/24 09:35 Dose: 100 mg Documented By: OMAR Lamotrigine (Lamotrigine 25 Mg Tablet) 25 mg PO BID [facility] Last Admin: 03/31/24 09:34 Dose: 25 mg Documented By: OMAR Magnesium Hydroxide (Milk Of Magnesia 30 Ml Oral.Susp) 30 ml PO DAILY PRN PRN Reason: Constipation Magnesium Oxide (Magnesium Oxide 400 Mg Tablet) 400 mg PO BIDPC [facility] Last Admin: 03/31/24 17:34 Dose: 400 mg Documented By: OMAR Melatonin (Melatonin 3 Mg Tablet) 6 mg PO BEDTIME PRN PRN Reason: Insomnia Last Admin: 03/30/24 22:19 Dose: 6 mg Documented By: RADHA Metoprolol Tartrate (Metoprolol Tartrate 25 Mg Tablet) 25 mg PO DAILY [facility]; Protocol Last Admin: 03/31/24 09:35 Dose: 25 mg Documented By: OMAR Non-Formulary Medication (Magnesium Glycinate) 100 mg PO BEDTIME [facility] Last Admin: 03/30/24 22:05 Dose: Not Given Documented By: RADHA Non-Admin Reason: Med Not Available Pantoprazole Sodium (Pantoprazole Sodium 20 Mg Tablet.Dr) 40 mg PO BID [facility] Last Admin: 03/31/24 09:34 Dose: 40 mg Documented By: OMAR Quetiapine Fumarate (Quetiapine Fumarate 100 Mg Tablet) 100 mg PO BEDTIME [facility] Last Admin: 03/30/24 22:04 Dose: 100 mg Documented By: RADHA Simethicone (Simethicone 80 Mg Tab.Chew) 80 mg PO Q6H PRN PRN Reason: BLOADING Sodium Bicarbonate (Sodium Bicarbonate 650 Mg Tablet) 650 mg PO DAILY [facility] Last Admin: 03/31/24 09:34 Dose: 650 mg Documented By: OMAR Sodium Chloride (0.9 % Sodium Chloride Flush 3 Ml Syringe) 3 ml IVFLUSH QSHIFT [facility] Last Admin: 03/31/24 17:34 Dose: 3 ml Documented By: OMAR Tiotropium [place] (Tiotropium [place] 2.5 Mcg 1 Puff/2.5 Mcg Mist.Inhal) 2 puff INHALE RDAILY [facility] Last Admin: 03/31/24 07:23 Dose: 2 puff Documented By: ROBB Vitamin D (Cholecalciferol (Vitamin D3) 25 Mcg Tablet) 50 mcg PO DAILY [facility] Last Admin: 03/31/24 09:34 Dose: 50 mcg Documented By: OMAR Labs 03/29/24 05:43 03/31/24 06:41 Labs: Laboratory Results - last 24 hr 03/28/24 03/30/24 03/30/24 10:27 17:37 21:14 Estim Creat Clear Calc Estimated GFR POC Glucose 126 H Magnesium 1.8 Ur Strep pneumoniae Ag Not Detected 03/31/24 03/31/24 03/31/24 06:41 07:08 11:17 Estim Creat Clear Calc 24.5 Estimated GFR 23 POC Glucose 111 143 H Magnesium Ur Strep pneumoniae Ag 03/31/24 16:15 Estim Creat Clear Calc Estimated GFR POC Glucose 168 H Magnesium Ur Strep pneumoniae Ag Assessment and Plan (1) Prolonged QT interval: Status: Acute Plan 63-year-old male with history of cocaine and heroin abuse in remission, HIV on HAART therapy, nonischemic cardiomyopathy, COPD, heart failure with reduced ejection fraction, CKD stage 3, TERRY occasionally compliant with CPAP, history of hepatitis-C, mood disorder admitted for COVID 19 with acute respiratory failure and hypoxemic respiratory failure Acute COVID-19 infection with acute hypoxemic respiratory failure with acute respiratory acidosis -CXR pending but appears to have Right middle/lower lobar pneumonia. +for COVID 19 -VBG with ph 7.32/38/51 Patient received BiPAP in the ED, high-flow Plan: Continue IV decadron 6mg daily,guaifenesin ac,duonebs,ID consult Follow cbc, cultures Acute pneumonia with severe sepsis sepsis and acute lactic acidosis resolved. blood culture neg@48hrs -CXR final read pending but appears consistent with r sided pneumonia d/w Id sepsis seems improved ,switched antibiotics po. Prolonged qtc-imrpoving on ekg has some pvc -avoid qtc prolonging agents -keep K>4, Mg >2 added echo HIV -last CD4 >500, viral load undetectable -continue HAART -ID consult Hx polysubstance abuse -previously on methadone but while at SNF given oxycodone. Would like to resume methadone -addiction med consult COPD -no acute exacerbation -continue home inhalers, duonebs, decadron as above NICM -continue bb, asa Mood disorder -continue home meds dvt prophylaxis- heparin full code ongoing need for stay: due to COVID 19 with acute respiratory acidosis and hypoxia on requiring oxygen,ov sterois,antibiotics, expert consultation, and close monitoring of hemodyanamic. Quality Stroke Does the patient have a stroke diagnosis?: No VTE Prior VTE?: No VTE Risk Level:: Medical - moderate - high VTE Device Contraindication: Treatment Not Indicated VTE Drug Contraindication: N/A - Med Ordered
[2024-03-31 20:32] LABS: Glucose, Whole Blood 129 mg/dL (60-115)
[2024-03-31] MEDS: Melatonin 3 MG TABLET 6 MG PO (21:27)
[2024-04-01] VITALS (11 sets, daily range): BP systolic 94–107; BP diastolic 56–70; PULSE 80–97; RESP 16–20; TEMP 36.1–36.8; O2SAT 82–98
--- NOTE | 2024-04-01 | ECG_ITS ---
Test Reason : RHYTHM CHECK Blood Pressure : / mmHG Vent. Rate : 102 BPM Atrial Rate : 102 BPM P-R Int : 190 ms QRS Dur : 088 ms QT Int : 368 ms P-R-T Axes : 087 003 094 degrees QTc Int : 479 ms Sinus tachycardia Septal infarct , age undetermined Abnormal ECG When compared with ECG of 29-MAR-2024 17:10, T wave inversion no longer evident in Anterior leads QT has shortened Referred By: Ester Frost Electronically Signed By:JULITA IRVING
[2024-04-01] MEDS: guaiFEN/Codeine SF 200/20/10ML 10 ML LIQUID 5 ML PO ×5 (00:18→21:35)
[2024-04-01] MEDS: 0.9 % Sodium Chloride Flush 3 ML SYRINGE IVFLUSH ×3 (00:18→17:08)
[2024-04-01] MEDS: Heparin Sodium,Porcine 5,000 UNIT/ML VIAL 5000 UNIT SUBCUT ×2 (00:19→11:53)
[2024-04-01 03:08] LABS: Legionella Ag Urine Not Detected (Not Detected)
[2024-04-01] MEDS: Doxycycline Monohydrate 100 MG CAPSULE PO ×2 (05:01→17:08)
[2024-04-01] MEDS: Amoxicillin/Potassium Clav 875 MG TABLET PO (05:01)
[2024-04-01 06:29] LABS: Hematocrit 38.6 % (42.0-52.0); Hemoglobin 12.7 g/dl (14.0-18.0)
[2024-04-01 06:42] LABS: Anion Gap 20 (12-20); Blood Urea Nitrogen 78 mg/dL (9-16); Calcium 9.8 mg/dL (8.4-10.2); Carbon Dioxide 25 mmol/L (22-29); Chloride 93 mmol/L (96-108); Creatinine Clr Calc Pharmacy 24.7; Estimated Glomerular Filt Rate 23; Glucose Random 106 mg/dL (60-115); Magnesium 2.5 mg/dL (1.6-2.6); Potassium 3.8 mmol/L (3.3-5.1); Sodium 134 mmol/L (135-145)
[2024-04-01 06:44] LABS: Creatinine Clr Calc Pharmacy 25.6; Estimated Glomerular Filt Rate 24
[2024-04-01 07:17] LABS: Glucose, Whole Blood 123 mg/dL (60-115)
[2024-04-01] MEDS: Albuterol/Iprat 2.5/0.5MG 3 ML AMPUL.NEB INHALE ×3 (07:21→19:35)
[2024-04-01] MEDS: Tiotropium Bromide 2.5 mcg 1 PUFF/2.5 MCG MIST.INHAL 2 PUFF INHALE (07:22)
[2024-04-01 08:19] LABS: Cholesterol 236 mg/dL (<200); HDL Cholesterol 62 mg/dL (>40); LDL Cholesterol Calculated 147 mg/dL (<100); Triglycerides 138 mg/dL (<150)
[2024-04-01] MEDS: Buprenorphine/Naloxone 8/2 mg FILM 1 FILM SUBLINGUAL (08:46)
[2024-04-01] MEDS: Potassium Chloride ER 20 MEQ TAB.ER.PRT PO (08:46)
[2024-04-01] MEDS: Ascorbic Acid 500 MG TABLET PO (08:47)
[2024-04-01] MEDS: Magnesium Oxide 400 MG TABLET PO ×2 (08:48→17:08)
[2024-04-01] MEDS: Dolutegravir Sodium 50 MG TABLET PO (08:48)
[2024-04-01] MEDS: Sodium Bicarbonate 650 MG TABLET PO (08:49)
[2024-04-01] MEDS: Aspirin Enteric Coated 81 MG TABLET.DR PO (08:49)
[2024-04-01] MEDS: Metoprolol Tartrate 25 MG TABLET PO (08:50)
[2024-04-01] MEDS: dexAMETHasone sod phosphate 4 MG/ML VIAL 6 MG IVPUSH (08:50)
[2024-04-01] MEDS: Cholecalciferol (Vitamin D3) 25 MCG TABLET 50 MCG PO (08:50)
[2024-04-01] MEDS: LAMIVUDINE PO (08:52)
[2024-04-01 11:08] LABS: Glucose, Whole Blood 155 mg/dL (60-115)
[2024-04-01] MEDS: Insulin Lispro 100 UNIT/ML 3 ML VIAL SUBCUT (11:50)
--- NOTE | 2024-04-01 13:25 | HO.PM.IMPN ---
Subjective Subjective Date of Service: 04/01/24 Interval History: covid pneumonia ,abnormal ekg Review of Systems hypoxia improved sob also improving no chest pain or dizziness or plapatations. Physical Exam Vital Signs: Vital Signs: Last Vital Signs Temp 98.0 F 04/01/24 11:01 Pulse 89 04/01/24 11:01 Resp 20 04/01/24 11:01 BP 101/69 04/01/24 11:01 Pulse Ox 92 04/01/24 11:01 O2 Del Method Room Air 04/01/24 11:01 O2 Flow Rate 3 03/31/24 04:00 FiO2 35.5 03/29/24 00:00 BMI result Body Mass Index 23.2 Appearance: Alert.? Oriented X3.? cvs: [id number], [id number] . res: clear to auscultation ,no rhonchii or wheezing abd: no rebound or guarding ,nt, bs present. ext pulses present , no cyanosis . neuro: axo3 , nonfocal. Objective Data Active Medications Abacavir Sulfate (Abacavir Sulfate 300 Mg Tablet) 600 mg PO DAILY [facility] Last Admin: 04/01/24 08:48 Dose: 600 mg Documented By: SHANNAN Acetaminophen (Acetaminophen 325 Mg Tablet) 650 mg PO Q6H PRN PRN Reason: Pain, Mild (Pain Scale 1-3), fever or headache Last Admin: 03/31/24 14:02 Dose: 650 mg Documented By: OMAR Albuterol Sulfate (Albuterol Sulfate 90 Mcg 8 Gm Inhaler) 2 puff INHALE Q4H PRN PRN Reason: Wheezing Albuterol/Ipratropium (Albuterol/Iprat 2.5/0.5mg 3 Ml Ampul.Neb) 3 ml INHALE RQ4H WHILE AWAKE [facility] Last Admin: 04/01/24 11:08 Dose: Not Given Documented By: ROBB Non-Admin Reason: Patient Asleep Amoxicillin/Clavulanate Potassium (Amoxicillin/Potassium Clav 500 Mg Tablet) 500 mg PO BID [facility] Ascorbic Acid (Ascorbic Acid 500 Mg Tablet) 500 mg PO DAILY [facility] Last Admin: 04/01/24 08:47 Dose: 500 mg Documented By: SHANNAN Aspirin (Aspirin Enteric Coated 81 Mg Tablet.) 81 mg PO DAILY [facility] Last Admin: 04/01/24 08:49 Dose: 81 mg Documented By: SHANNAN Buprenorphine/Naloxone (Buprenorphine/Naloxone 8/2 Mg Film) 1 film SUBLINGUAL DAILY [facility] Last Admin: 04/01/24 08:46 Dose: 1 film Documented By: SHANNAN Buprenorphine/Naloxone (Buprenorphine/Naloxone 2/0.5mg Film) 1 film SUBLINGUAL DAILY PRN PRN Reason: Opiate Withdrawal Calcium Carbonate (Calcium Carbonate 750 Mg Tab.Chew) 750 mg PO Q4H PRN PRN Reason: Heartburn Dexamethasone Sodium Phosphate (Dexamethasone Sod Phosphate 4 Mg/Ml Vial) 6 mg IVPUSH DAILY [facility] Last Admin: 04/01/24 08:50 Dose: 6 mg Documented By: SHANNAN Dolutegravir Sodium (Dolutegravir Sodium 50 Mg Tablet) 50 mg PO DAILY [facility] Last Admin: 04/01/24 08:48 Dose: 50 mg Documented By: SHANNAN Doxycycline Monohydrate (Doxycycline Monohydrate 100 Mg Capsule) 100 mg PO Q12H [facility] Last Admin: 04/01/24 05:01 Dose: 100 mg Documented By: RADHA Glucose (Glucose Gel 15 Gm Gel..Gram.) 15 gm PO Q15M PRN; Protocol PRN Reason: per Hypoglycemia Standing Ord. Guaifenesin (Guaifenesin 100 Mg/5 Ml Liquid) 10 ml PO Q4H PRN PRN Reason: Cough Guaifenesin/Codeine Phosphate (Guaifen/Codeine Sf 200/20/10ml 10 Ml Liquid) 5 ml PO Q4H [facility] Last Admin: 04/01/24 12:58 Dose: Not Given Documented By: SHANNAN Non-Admin Reason: Patient Refused Heparin Sodium (Porcine) (Heparin Sodium,Porcine 5,000 Unit/Ml Vial) 5,000 unit SUBCUT Q12H [facility] Last Admin: 04/01/24 11:53 Dose: 5,000 unit Documented By: SHANNAN Dextrose (D10) 250 mls @ 750 mls/hr IV Q15M PRN; Protocol PRN Reason: per Hypoglycemia Standing Ord. Insulin Human Lispro (Insulin Lispro 100 Unit/Ml 3 Ml Vial) 0 unit SUBCUT QIDACHS [facility]; Protocol Last Admin: 04/01/24 11:50 Dose: 2 unit Documented By: SHANNAN Lamivudine (Lamivudine 100 Mg/10 Ml Solution) 100 mg PO DAILY [facility] Last Admin: 04/01/24 08:52 Dose: 100 mg Documented By: SHANNAN Lamotrigine (Lamotrigine 25 Mg Tablet) 25 mg PO BID [facility] Last Admin: 04/01/24 08:49 Dose: Not Given Documented By: SHANNAN Non-Admin Reason: Patient Refused Magnesium Hydroxide (Milk Of Magnesia 30 Ml Oral.Susp) 30 ml PO DAILY PRN PRN Reason: Constipation Magnesium Oxide (Magnesium Oxide 400 Mg Tablet) 400 mg PO BIDPC [facility] Last Admin: 04/01/24 08:48 Dose: 400 mg Documented By: SHANNAN Melatonin (Melatonin 3 Mg Tablet) 6 mg PO BEDTIME PRN PRN Reason: Insomnia Last Admin: 03/31/24 21:27 Dose: 6 mg Documented By: RADHA Metoprolol Tartrate (Metoprolol Tartrate 25 Mg Tablet) 25 mg PO DAILY [facility]; Protocol Last Admin: 04/01/24 08:50 Dose: 25 mg Documented By: SHANNAN Pantoprazole Sodium (Pantoprazole Sodium 20 Mg Tablet.Dr) 40 mg PO BID [facility] Last Admin: 04/01/24 08:51 Dose: Not Given Documented By: SHANNAN Non-Admin Reason: Patient Refused Quetiapine Fumarate (Quetiapine Fumarate 100 Mg Tablet) 100 mg PO BEDTIME [facility] Last Admin: 03/31/24 21:30 Dose: Not Given Documented By: RADHA Non-Admin Reason: Patient Refused Simethicone (Simethicone 80 Mg Tab.Chew) 80 mg PO Q6H PRN PRN Reason: BLOADING Sodium Bicarbonate (Sodium Bicarbonate 650 Mg Tablet) 650 mg PO DAILY [facility] Last Admin: 04/01/24 08:49 Dose: 650 mg Documented By: SHANNAN Sodium Chloride (0.9 % Sodium Chloride Flush 3 Ml Syringe) 3 ml IVFLUSH QSHIFT [facility] Last Admin: 04/01/24 08:53 Dose: 3 ml Documented By: SHANNAN Tiotropium [place] (Tiotropium [place] 2.5 Mcg 1 Puff/2.5 Mcg Mist.Inhal) 2 puff INHALE RDAILY [facility] Last Admin: 04/01/24 07:22 Dose: 2 puff Documented By: ROBB Vitamin D (Cholecalciferol (Vitamin D3) 25 Mcg Tablet) 50 mcg PO DAILY [facility] Last Admin: 04/01/24 08:50 Dose: 50 mcg Documented By: SHANNAN Labs 04/01/24 06:11 04/01/24 06:11 Labs: Laboratory Results - last 24 hr 03/28/24 03/31/24 03/31/24 10:27 16:15 20:20 Anion Gap Estim Creat Clear Calc Estimated GFR POC Glucose 168 H 129 H Random Glucose Calcium Magnesium Triglycerides Cholesterol LDL Cholesterol, Calc HDL Cholesterol Ur L.pneumophila Ag Not Detected 04/01/24 04/01/24 04/01/24 06:11 06:11 06:11 Anion Gap 20 Estim Creat Clear Calc 25.6 24.7 Estimated GFR POC Glucose Random Glucose 106 Calcium 9.8 Magnesium 2.5 Triglycerides 138 Cholesterol 236 H LDL Cholesterol, Calc 147 H HDL Cholesterol 62 Ur L.pneumophila Ag 04/01/24 04/01/24 07:12 11:00 Anion Gap Estim Creat Clear Calc Estimated GFR POC Glucose 123 H 155 H Random Glucose Calcium Magnesium Triglycerides Cholesterol LDL Cholesterol, Calc HDL Cholesterol Ur L.pneumophila Ag Assessment and Plan (1) Prolonged QT interval: Status: Acute (2) Acidosis, lactic: Status: Acute (3) COVID-19: Status: Acute Assessment and Plan: 63-year-old male with history of cocaine and heroin abuse in remission, HIV on HAART therapy, nonischemic cardiomyopathy, COPD, heart failure with reduced ejection fraction, CKD stage 3, TERRY occasionally compliant with CPAP, history of hepatitis-C, mood disorder admitted for COVID 19 with acute respiratory failure and hypoxemic respiratory failure Acute COVID-19 infection with acute hypoxemic respiratory failure with acute respiratory acidosis -CXR pending but appears to have Right middle/lower lobar pneumonia. +for COVID 19 -[facility]BG with ph 7.32/38/51 Patient received BiPAP in the ED, high-flow blood cultures negative 48hrs Plan: Continue IV decadron 6mg daily,guaifenesin ac,duonebs off high flow and oxygen switched to po antibiotics -doxycycline and augmentin Acute pneumonia with severe sepsis sepsis and acute lactic acidosis resolved. blood culture neg@48hrs -CXR final read pending but appears consistent with r sided pneumonia d/w Id sepsis seems improved ,switched antibiotics po. Prolonged qtc-imrpoving on ekg qtc improved echo: his ef 40-45% which is also improving incomparion to lat time d/w cardiology Dr campos -patient denies any chest pain ,ekg seems similar -twave inversion as admission trop seemsx 1 much better than 11/30 ekg seems likely due to covid setting continue patient is on asa ,bb,statin. follow up his cardiology outpatient HIV last CD4 >500, viral load undetectable continue HAART ID consult-rec po doxy/augmentin total 5 days steriods tailer as per hypoxia. Hx polysubstance abuse on subaxone COPD -no acute exacerbation -continue home inhalers, duonebs, decadron as above NICM -continue bb, asa Mood disorder -continue home meds dvt prophylaxis- heparin full code ongoing need for stay: due to COVID 19 with acute respiratory acidosis and hypoxia on requiring oxygen,ov sterois,antibiotics, expert consultation, and close monitoring of hemodyanamic. Quality Stroke Does the patient have a stroke diagnosis?: No VTE Prior VTE?: No VTE Risk Level:: Medical - moderate - high VTE Device Contraindication: Treatment Not Indicated VTE Drug Contraindication: N/A - Med Ordered
[2024-04-01 16:03] LABS: Glucose, Whole Blood 145 mg/dL (60-115)
[2024-04-01 20:20] LABS: Glucose, Whole Blood 139 mg/dL (60-115)
[2024-04-01] MEDS: lamoTRIgine 25 MG TABLET PO (21:36)
[2024-04-01] MEDS: Amoxicillin/Potassium Clav 500 MG TABLET PO (21:37)
[2024-04-01] MEDS: Atorvastatin Calcium 40 MG TABLET PO (21:38)
[2024-04-01] MEDS: Buprenorphine/Naloxone 2/0.5mg FILM 1 FILM SUBLINGUAL (21:45)
[2024-04-01] MEDS: Melatonin 3 MG TABLET 6 MG PO (21:46)
[2024-04-02] VITALS (11 sets, daily range): BP systolic 107–142; BP diastolic 60–81; PULSE 82–91; RESP 15–20; TEMP 36.1–36.9; O2SAT 92–96
[2024-04-02] MEDS: guaiFEN/Codeine SF 200/20/10ML 10 ML LIQUID 5 ML PO ×3 (00:11→09:35)
[2024-04-02] MEDS: Acetaminophen 325 MG TABLET 650 MG PO (00:11)
[2024-04-02] MEDS: Heparin Sodium,Porcine 5,000 UNIT/ML VIAL 5000 UNIT SUBCUT ×2 (00:13→11:54)
[2024-04-02] MEDS: 0.9 % Sodium Chloride Flush 3 ML SYRINGE IVFLUSH ×4 (00:44→21:35)
[2024-04-02] MEDS: Doxycycline Monohydrate 100 MG CAPSULE PO ×2 (04:38→17:36)
[2024-04-02 06:47] LABS: Estimated Glomerular Filt Rate 23
[2024-04-02 07:14] LABS: Glucose, Whole Blood 142 mg/dL (60-115)
[2024-04-02] MEDS: LAMIVUDINE PO (09:34)
[2024-04-02] MEDS: Amoxicillin/Potassium Clav 500 MG TABLET PO ×2 (09:34→21:33)
[2024-04-02] MEDS: Cholecalciferol (Vitamin D3) 25 MCG TABLET 50 MCG PO (09:34)
[2024-04-02] MEDS: Buprenorphine/Naloxone 8/2 mg FILM 1 FILM SUBLINGUAL (09:34)
[2024-04-02] MEDS: Dolutegravir Sodium 50 MG TABLET PO (09:35)
[2024-04-02] MEDS: Sodium Bicarbonate 650 MG TABLET PO (09:35)
[2024-04-02] MEDS: Aspirin Enteric Coated 81 MG TABLET.DR PO (09:35)
[2024-04-02] MEDS: Metoprolol Tartrate 25 MG TABLET PO (09:35)
[2024-04-02] MEDS: Ascorbic Acid 500 MG TABLET PO (09:35)
[2024-04-02] MEDS: Magnesium Oxide 400 MG TABLET PO ×2 (09:35→17:36)
[2024-04-02] MEDS: dexAMETHasone sod phosphate 4 MG/ML VIAL 6 MG IVPUSH (09:36)
[2024-04-02] MEDS: Tiotropium Bromide 2.5 mcg 1 PUFF/2.5 MCG MIST.INHAL 2 PUFF INHALE (09:47)
[2024-04-02 11:02] LABS: Glucose, Whole Blood 119 mg/dL (60-115)
[2024-04-02] MEDS: Albuterol/Iprat 2.5/0.5MG 3 ML AMPUL.NEB INHALE ×3 (11:11→20:21)
--- NOTE | 2024-04-02 12:49 | P.PNIM_ITS ---
Subjective Subjective Date of Service: 04/02/24 Interval History: covid pneumonia ,abnormal ekg Review of Systems hypoxia seems improved. no fevers or chills Physical Exam 2 Vital Signs: Vital Signs: Last Vital Signs Temp 97.6 F 04/02/24 10:56 Pulse 85 04/02/24 11:12 Resp 20 04/02/24 11:12 BP 138/81 04/02/24 10:56 Pulse Ox 93 04/02/24 10:56 O2 Del Method Room Air 04/02/24 10:56 O2 Flow Rate 3 03/31/24 04:00 FiO2 35.5 03/29/24 00:00 BMI result Body Mass Index 23.2 Appearance: Alert.? Oriented X3.? cvs: [id number], [id number] . res: clear to auscultation ,no rhonchii or wheezing abd: no rebound or guarding ,nt, bs present. ext pulses present , no cyanosis . neuro: axo3 , nonfocal. Objective Data Active Medications Abacavir Sulfate (Abacavir Sulfate 300 Mg Tablet) 600 mg PO DAILY [facility] Last Admin: 04/02/24 09:35 Dose: 600 mg Documented By: SHANNAN Acetaminophen (Acetaminophen 325 Mg Tablet) 650 mg PO Q6H PRN PRN Reason: Pain, Mild (Pain Scale 1-3), fever or headache Last Admin: 04/02/24 00:11 Dose: 650 mg Documented By: RADHA Albuterol Sulfate (Albuterol Sulfate 90 Mcg 8 Gm Inhaler) 2 puff INHALE Q4H PRN PRN Reason: Wheezing Albuterol/Ipratropium (Albuterol/Iprat 2.5/0.5mg 3 Ml Ampul.Neb) 3 ml INHALE RQ4H WHILE AWAKE [facility] Last Admin: 04/02/24 11:11 Dose: 3 ml Documented By: ROBB Amoxicillin/Clavulanate Potassium (Amoxicillin/Potassium Clav 500 Mg Tablet) 500 mg PO BID [facility] Last Admin: 04/02/24 09:34 Dose: 500 mg Documented By: SHANNAN Ascorbic Acid (Ascorbic Acid 500 Mg Tablet) 500 mg PO DAILY [facility] Last Admin: 04/02/24 09:35 Dose: 500 mg Documented By: SHANNAN Aspirin (Aspirin Enteric Coated 81 Mg Tablet.) 81 mg PO DAILY [facility] Last Admin: 04/02/24 09:35 Dose: 81 mg Documented By: SHANNAN Atorvastatin Calcium (Atorvastatin Calcium 40 Mg Tablet) 40 mg PO BEDTIME [facility] Last Admin: 04/01/24 21:38 Dose: 40 mg Documented By: RADHA Buprenorphine/Naloxone (Buprenorphine/Naloxone 8/2 Mg Film) 1 film SUBLINGUAL DAILY [facility] Last Admin: 04/02/24 09:34 Dose: 1 film Documented By: SHANNAN Buprenorphine/Naloxone (Buprenorphine/Naloxone 2/0.5mg Film) 1 film SUBLINGUAL DAILY PRN PRN Reason: Opiate Withdrawal Last Admin: 04/01/24 21:45 Dose: 1 film Documented By: RADHA Calcium Carbonate (Calcium Carbonate 750 Mg Tab.Chew) 750 mg PO Q4H PRN PRN Reason: Heartburn Dexamethasone Sodium Phosphate (Dexamethasone Sod Phosphate 4 Mg/Ml Vial) 6 mg IVPUSH DAILY [facility] Last Admin: 04/02/24 09:36 Dose: 6 mg Documented By: SHANNAN Dolutegravir Sodium (Dolutegravir Sodium 50 Mg Tablet) 50 mg PO DAILY [facility] Last Admin: 04/02/24 09:35 Dose: 50 mg Documented By: SHANNAN Doxycycline Monohydrate (Doxycycline Monohydrate 100 Mg Capsule) 100 mg PO Q12H [facility] Last Admin: 04/02/24 04:38 Dose: 100 mg Documented By: RADHA Glucose (Glucose Gel 15 Gm Gel..Gram.) 15 gm PO Q15M PRN; Protocol PRN Reason: per Hypoglycemia Standing Ord. Guaifenesin (Guaifenesin 100 Mg/5 Ml Liquid) 10 ml PO Q4H PRN PRN Reason: Cough Heparin Sodium (Porcine) (Heparin Sodium,Porcine 5,000 Unit/Ml Vial) 5,000 unit SUBCUT Q12H [facility] Last Admin: 04/02/24 11:54 Dose: 5,000 unit Documented By: SHANNAN Dextrose (D10) 250 mls @ 750 mls/hr IV Q15M PRN; Protocol PRN Reason: per Hypoglycemia Standing Ord. Insulin Human Lispro (Insulin Lispro 100 Unit/Ml 3 Ml Vial) 0 unit SUBCUT QIDACHS [facility]; Protocol Last Admin: 04/02/24 11:21 Dose: Not Given Documented By: SHANNAN Non-Admin Reason: No Insulin Coverage Lamivudine (Lamivudine 100 Mg/10 Ml Solution) 100 mg PO DAILY [facility] Last Admin: 04/02/24 09:34 Dose: 100 mg Documented By: SHANNAN Lamotrigine (Lamotrigine 25 Mg Tablet) 25 mg PO BID [facility] Last Admin: 04/02/24 09:38 Dose: Not Given Documented By: SHANNAN Non-Admin Reason: Patient Refused Magnesium Hydroxide (Milk Of Magnesia 30 Ml Oral.Susp) 30 ml PO DAILY PRN PRN Reason: Constipation Magnesium Oxide (Magnesium Oxide 400 Mg Tablet) 400 mg PO BIDPC [facility] Last Admin: 04/02/24 09:35 Dose: 400 mg Documented By: SHANNAN Melatonin (Melatonin 3 Mg Tablet) 6 mg PO BEDTIME PRN PRN Reason: Insomnia Last Admin: 04/01/24 21:46 Dose: 6 mg Documented By: RADHA Metoprolol Tartrate (Metoprolol Tartrate 25 Mg Tablet) 25 mg PO DAILY [facility]; Protocol Last Admin: 04/02/24 09:35 Dose: 25 mg Documented By: SHANNAN Pantoprazole Sodium (Pantoprazole Sodium 20 Mg Tablet.Dr) 40 mg PO BID [facility] Last Admin: 04/02/24 09:38 Dose: Not Given Documented By: SHANNAN Non-Admin Reason: Patient Refused Quetiapine Fumarate (Quetiapine Fumarate 100 Mg Tablet) 100 mg PO BEDTIME [facility] Last Admin: 04/01/24 21:39 Dose: Not Given Documented By: RADHA Non-Admin Reason: Patient Refused Simethicone (Simethicone 80 Mg Tab.Chew) 80 mg PO Q6H PRN PRN Reason: BLOADING Sodium Bicarbonate (Sodium Bicarbonate 650 Mg Tablet) 650 mg PO DAILY [facility] Last Admin: 04/02/24 09:35 Dose: 650 mg Documented By: SHANNAN Sodium Chloride (0.9 % Sodium Chloride Flush 3 Ml Syringe) 3 ml IVFLUSH QSHIFT [facility] Last Admin: 04/02/24 09:36 Dose: 3 ml Documented By: SHANNAN Tiotropium [place] (Tiotropium [place] 2.5 Mcg 1 Puff/2.5 Mcg Mist.Inhal) 2 puff INHALE RDAILY [facility] Last Admin: 04/02/24 09:47 Dose: 2 puff Documented By: SHANNAN Vitamin D (Cholecalciferol (Vitamin D3) 25 Mcg Tablet) 50 mcg PO DAILY [facility] Last Admin: 04/02/24 09:34 Dose: 50 mcg Documented By: SHANNAN Labs 04/01/24 06:11 04/02/24 05:47 Labs: Laboratory Results - last 24 hr 04/01/24 04/01/24 04/02/24 15:56 20:06 05:47 Hold Purple Top SEE NOTE Estim Creat Clear Calc 25.0 Estimated GFR 23 POC Glucose 145 H 139 H 04/02/24 04/02/24 07:09 10:56 Hold Purple Top Estim Creat Clear Calc Estimated GFR POC Glucose 142 H 119 H Microbiology Microbiology Results: Microbiology 03/28/24 04:58 Blood Culture - Final Blood - Venous No growth after 5 days. 03/28/24 04:44 Blood Culture - Final Blood - Venous No growth after 5 days. Assessment and Plan (1) Prolonged QT interval: Status: Acute (2) Acidosis, lactic: Status: Acute (3) COVID-19: Status: Acute Assessment and Plan: 63-year-old male with history of cocaine and heroin abuse in remission, HIV on HAART therapy, nonischemic cardiomyopathy, COPD, heart failure with reduced ejection fraction, CKD stage 3, TERRY occasionally compliant with CPAP, history of hepatitis-C, mood disorder admitted for COVID 19 with acute respiratory failure and hypoxemic respiratory failure Acute COVID-19 infection with acute hypoxemic respiratory failure with acute respiratory acidosis -CXR pending but appears to have Right middle/lower lobar pneumonia. +for COVID 19 -[facility]BG with ph 7.32/38/51 Patient received BiPAP in the ED, high-flow blood cultures negative 48hrs Plan: Continue IV decadron 6mg daily,guaifenesin ac,duonebs off high flow and oxygen switched to po antibiotics -doxycycline and augmentin Acute pneumonia with severe sepsis sepsis and acute lactic acidosis resolved. blood culture neg@48hrs -CXR final read pending but appears consistent with r sided pneumonia d/w Id sepsis seems improved ,switched antibiotics po. Prolonged qtc-imrpoving on ekg qtc improved echo: his ef 40-45% which is also improving incomparion to lat time d/w cardiology Dr campos -patient denies any chest pain ,ekg seems similar - twave inversion as admission trop seemsx 1 much better than 4/24 ekg seems likely due to covid setting continue patient is on asa ,bb,statin. follow up his cardiology outpatient HIV last CD4 >500, viral load undetectable continue HAART ID consult-rec po doxy/augmentin total 5 days steriods tailer as per hypoxia. Hx polysubstance abuse on subaxone COPD -no acute exacerbation -continue home inhalers, duonebs, decadron as above NICM -continue bb, asa Mood disorder -continue home meds dvt prophylaxis- heparin full code ongoing need for stay: awaiting placement. Quality Stroke Does the patient have a stroke diagnosis?: No VTE Prior VTE?: No VTE Risk Level:: Medical - moderate - high VTE Device Contraindication: Treatment Not Indicated VTE Drug Contraindication: N/A - Med Ordered
[2024-04-02 16:24] LABS: Glucose, Whole Blood 194 mg/dL (60-115)
[2024-04-02] MEDS: guaiFENesin 100 MG/5 ML LIQUID 10 ML PO (17:36)
[2024-04-02] MEDS: Insulin Lispro 100 UNIT/ML 3 ML VIAL SUBCUT (17:36)
[2024-04-02 19:58] LABS: Glucose, Whole Blood 130 mg/dL (60-115)
[2024-04-02] MEDS: Atorvastatin Calcium 40 MG TABLET PO (21:33)
[2024-04-02] MEDS: Buprenorphine/Naloxone 2/0.5mg FILM 1 FILM SUBLINGUAL (21:45)
[2024-04-02] MEDS: Melatonin 3 MG TABLET 6 MG PO (23:58)
[2024-04-03 03:11] VITALS: BP 101/69; PULSE 81; RESP 20; TEMP 36.6; O2SAT 96
[2024-04-03] MEDS: Doxycycline Monohydrate 100 MG CAPSULE PO (05:37)
[2024-04-03 07:10] LABS: Creatinine Clr Calc Pharmacy 29.5; Estimated Glomerular Filt Rate 28
[2024-04-03 07:17] VITALS: BP 100/65; PULSE 91; TEMP 36.4; O2SAT 93
[2024-04-03 07:36] LABS: Glucose, Whole Blood 159 mg/dL (60-115)
[2024-04-03] MEDS: Albuterol/Iprat 2.5/0.5MG 3 ML AMPUL.NEB INHALE ×2 (07:47→11:43)
[2024-04-03 07:48] VITALS: PULSE 89; RESP 18; O2SAT 90
[2024-04-03] MEDS: Tiotropium Bromide 2.5 mcg 1 PUFF/2.5 MCG MIST.INHAL 2 PUFF INHALE (08:06)
[2024-04-03 08:07] VITALS: PULSE 89; RESP 18; O2SAT 90
[2024-04-03] MEDS: Insulin Lispro 100 UNIT/ML 3 ML VIAL SUBCUT (08:22)
[2024-04-03] MEDS: dexAMETHasone sod phosphate 4 MG/ML VIAL 6 MG IVPUSH (09:35)
[2024-04-03] MEDS: Aspirin Enteric Coated 81 MG TABLET.DR PO (09:36)
[2024-04-03] MEDS: Amoxicillin/Potassium Clav 500 MG TABLET PO (09:36)
[2024-04-03] MEDS: Cholecalciferol (Vitamin D3) 25 MCG TABLET 50 MCG PO (09:36)
[2024-04-03] MEDS: Buprenorphine/Naloxone 8/2 mg FILM 1 FILM SUBLINGUAL (09:36)
[2024-04-03] MEDS: Sodium Bicarbonate 650 MG TABLET PO (09:36)
[2024-04-03] MEDS: Metoprolol Tartrate 25 MG TABLET PO (09:36)
[2024-04-03] MEDS: Ascorbic Acid 500 MG TABLET PO (09:36)
[2024-04-03] MEDS: Magnesium Oxide 400 MG TABLET PO (09:36)
[2024-04-03] MEDS: Dolutegravir Sodium 50 MG TABLET PO (09:37)
[2024-04-03] MEDS: LAMIVUDINE PO (09:37)
--- NOTE | 2024-04-03 09:38 | MHC.RECOVRN ---
Pt has [facility] telehealth on 04/07/24 at 0845AM.
[2024-04-03] MEDS: 0.9 % Sodium Chloride Flush 3 ML SYRINGE IVFLUSH (10:24)
--- NOTE | 2024-04-03 11:06 | MHC.CM.PN ---
PT MEDICALLY CLEARED FOR STR HOWEVER PT DECLINING TO GO HE WAS PREVIOUSLY IN STR FOR 10 DAYS, PT IS AGREEABLE TO NEW [facility] FOR SN/PT AT HOME AND CM VERIFIED NEW CELL #[phone] WHICH HAS BEEN SENT TO [facility]IA [facility], PT WILL ARRANGE FAMILY FOR TRANSPORT. PT AWARE HE HAS AN APPT ON 04/07 AT 8:45AM AND THIS WILL BE IN [facility] PAPERWORK.
--- NOTE | 2024-04-03 11:37 | P.PNADD_ITS ---
Subjective Subjective Date of Service: 04/03/24 Reason For Visit: covid hypoxia Interim History: seen in follow up feeling better but would like to increase dose to 12mg during the day Review of Systems Constitutional: Reports as per HPI Diagnostics Vital Signs (24Hr): Vital Signs - 24 hr 04/02/24 15:12 04/02/24 15:29 04/02/24 18:55 Temperature 96.9 F 97.6 F Pulse Rate 83 83 88 Respiratory Rate 20 20 20 Blood Pressure 107/60 142/72 H Pulse Oximetry 93 92 Oxygen Delivery Method Room Air Room Air 04/02/24 20:21 04/02/24 23:51 04/03/24 03:11 Temperature 97.7 F 97.9 F Pulse Rate 88 91 81 Respiratory Rate 20 20 20 Blood Pressure 107/69 101/69 Pulse Oximetry 94 96 Oxygen Delivery Method Room Air Room Air 04/03/24 07:17 04/03/24 07:48 04/03/24 08:07 Temperature 97.5 F Pulse Rate 91 89 89 Respiratory Rate 18 18 Blood Pressure 100/65 Pulse Oximetry 93 Oxygen Delivery Method Room Air BMI result Body Mass Index 23.2 Labs 04/01/24 06:11 04/03/24 06:42 Labs: Laboratory Results - last 48 hr 04/01/24 04/01/24 04/02/24 15:56 20:06 05:47 Hold Purple Top SEE NOTE Creatinine 2.78 H Estim Creat Clear Calc 25.0 Estimated GFR 23 POC Glucose 145 H 139 H 04/02/24 04/02/24 04/02/24 07:09 10:56 16:18 Hold Purple Top Creatinine Estim Creat Clear Calc Estimated GFR POC Glucose 142 H 119 H 194 H 04/02/24 04/03/24 04/03/24 19:52 06:42 07:21 Hold Purple Top Creatinine 2.36 H Estim Creat Clear Calc 29.5 Estimated GFR 28 POC Glucose 130 H 159 H Medications Medications Current Medications Abacavir Sulfate (Abacavir Sulfate 300 Mg Tablet) 600 mg PO DAILY SUSANA Last Admin: 04/03/24 09:36 Dose: 600 mg Acetaminophen (Acetaminophen 325 Mg Tablet) 650 mg PO Q6H PRN PRN Reason: Pain, Mild (Pain Scale 1-3), fever or headache Last Admin: 04/02/24 00:11 Dose: 650 mg Albuterol Sulfate (Albuterol Sulfate 90 Mcg 8 Gm Inhaler) 2 puff INHALE Q4H PRN PRN Reason: Wheezing Albuterol/Ipratropium (Albuterol/Iprat 2.5/0.5mg 3 Ml Ampul.Neb) 3 ml INHALE RQ4H WHILE AWAKE [facility] Last Admin: 04/03/24 07:47 Dose: 3 ml Amoxicillin/Clavulanate Potassium (Amoxicillin/Potassium Clav 500 Mg Tablet) 500 mg PO BID [facility] Last Admin: 04/03/24 09:36 Dose: 500 mg Ascorbic Acid (Ascorbic Acid 500 Mg Tablet) 500 mg PO DAILY [facility] Last Admin: 04/03/24 09:36 Dose: 500 mg Aspirin (Aspirin Enteric Coated 81 Mg Tablet.Dr) 81 mg PO DAILY [facility] Last Admin: 04/03/24 09:36 Dose: 81 mg Atorvastatin Calcium (Atorvastatin Calcium 40 Mg Tablet) 40 mg PO BEDTIME [facility] Last Admin: 04/02/24 21:33 Dose: 40 mg Buprenorphine/Naloxone (Buprenorphine/Naloxone 8/2 Mg Film) 1 film SUBLINGUAL DAILY [facility] Last Admin: 04/03/24 09:36 Dose: 1 film Buprenorphine/Naloxone (Buprenorphine/Naloxone 2/0.5mg Film) 1 film SUBLINGUAL DAILY PRN PRN Reason: Opiate Withdrawal Last Admin: 04/02/24 21:45 Dose: 1 film Calcium Carbonate (Calcium Carbonate 750 Mg Tab.Chew) 750 mg PO Q4H PRN PRN Reason: Heartburn Dexamethasone Sodium Phosphate (Dexamethasone Sod Phosphate 4 Mg/Ml Vial) 6 mg IVPUSH DAILY [facility] Last Admin: 04/03/24 09:35 Dose: 6 mg Dolutegravir Sodium (Dolutegravir Sodium 50 Mg Tablet) 50 mg PO DAILY [facility] Last Admin: 04/03/24 09:37 Dose: 50 mg Doxycycline Monohydrate (Doxycycline Monohydrate 100 Mg Capsule) 100 mg PO Q12H [facility] Last Admin: 04/03/24 05:37 Dose: 100 mg Glucose (Glucose Gel 15 Gm Gel..Gram.) 15 gm PO Q15M PRN; Protocol PRN Reason: per Hypoglycemia Standing Ord. Guaifenesin (Guaifenesin 100 Mg/5 Ml Liquid) 10 ml PO Q4H PRN PRN Reason: Cough Last Admin: 04/02/24 17:36 Dose: 10 ml Heparin Sodium (Porcine) (Heparin Sodium,Porcine 5,000 Unit/Ml Vial) 5,000 unit SUBCUT Q12H [facility] Last Admin: 04/02/24 23:59 Dose: Not Given Dextrose (D10) 250 mls @ 750 mls/hr IV Q15M PRN; Protocol PRN Reason: per Hypoglycemia Standing Ord. Insulin Human Lispro (Insulin Lispro 100 Unit/Ml 3 Ml Vial) 0 unit SUBCUT QIDACHS [facility]; Protocol Last Admin: 04/03/24 08:22 Dose: 2 unit Lamivudine (Lamivudine 100 Mg/10 Ml Solution) 100 mg PO DAILY [facility] Last Admin: 04/03/24 09:37 Dose: 100 mg Lamotrigine (Lamotrigine 25 Mg Tablet) 25 mg PO BID [facility] Last Admin: 04/03/24 09:57 Dose: Not Given Magnesium Hydroxide (Milk Of Magnesia 30 Ml Oral.Susp) 30 ml PO DAILY PRN PRN Reason: Constipation Magnesium Oxide (Magnesium Oxide 400 Mg Tablet) 400 mg PO BIDPC [facility] Last Admin: 04/03/24 09:36 Dose: 400 mg Melatonin (Melatonin 3 Mg Tablet) 6 mg PO BEDTIME PRN PRN Reason: Insomnia Last Admin: 04/02/24 23:58 Dose: 6 mg Metoprolol Tartrate (Metoprolol Tartrate 25 Mg Tablet) 25 mg PO DAILY [facility]; Protocol Last Admin: 04/03/24 09:36 Dose: 25 mg Pantoprazole Sodium (Pantoprazole Sodium 20 Mg Tablet.Dr) 40 mg PO BID [facility] Last Admin: 04/03/24 09:57 Dose: Not Given Quetiapine Fumarate (Quetiapine Fumarate 100 Mg Tablet) 100 mg PO BEDTIME [facility] Last Admin: 04/02/24 21:32 Dose: Not Given Simethicone (Simethicone 80 Mg Tab.Chew) 80 mg PO Q6H PRN PRN Reason: BLOADING Sodium Bicarbonate (Sodium Bicarbonate 650 Mg Tablet) 650 mg PO DAILY [facility] Last Admin: 04/03/24 09:36 Dose: 650 mg Sodium Chloride (0.9 % Sodium Chloride Flush 3 Ml Syringe) 3 ml IVFLUSH QSHIFT [facility] Last Admin: 04/03/24 10:24 Dose: 3 ml Tiotropium [place] (Tiotropium [place] 2.5 Mcg 1 Puff/2.5 Mcg Mist.Inhal) 2 puff INHALE RDAILY [facility] Last Admin: 04/03/24 08:06 Dose: 2 puff Vitamin D (Cholecalciferol (Vitamin D3) 25 Mcg Tablet) 50 mcg PO DAILY [facility] Last Admin: 04/03/24 09:36 Dose: 50 mcg Allergies Allergies Allergy/AdvReac Type Severity Reaction Status Date / Time No Known Allergies Allergy Unverified 03/28/24 04:31 Assessment & Plan Assessment & Plan (1) Opioid use disorder: Status: Acute Code(s): F11.90 - Opioid use, unspecified, uncomplicated Assessment and Plan: * increase morning dose to 12mg * late afternoon dose of 4mg ---total daily dosing of 16mg (2) CKD (chronic kidney disease): Status: Acute Code(s): N18.9 - Chronic kidney disease, unspecified (3) Critical illness myopathy: Status: Acute Code(s): G72.81 - Critical illness myopathy Total time managing care of this patient today ____ minutes.
[2024-04-03 11:38] LABS: Glucose, Whole Blood 115 mg/dL (60-115)
[2024-04-03 11:45] VITALS: PULSE 86; RESP 18; O2SAT 92
--- NOTE | 2024-04-03 11:50 | PM.DS ---
DS: Providers Provider Date of Service: 04/03/24 Date of admission: 03/28/24 12:01 Date of discharge: 04/03/24 Primary care physician: Loreta Bhagat MD Admitting clinician: Ester Frost Attending physician on admission: Ester Frost Consults: 03/28/24 12:00 Consult to Infectious Diseases Routine Consulting Provider: [facility] Reason for consultation: HIV, covid, hypoxia 03/28/24 12:18 Addiction Medicine Routine Consulting Provider: Addiction Covering Reason for consultation: previously on methadone, started on oxycodone by SNF instead, wants methado Attending physician on discharge: Ester Frost Discharging clinician: Ester Frost DS: Diagnosis Discharge Diagnosis (1) Opioid use disorder: Status: Acute (2) COVID-19: Status: Acute (3) Pneumonia: Status: Acute (4) Hypoxia: Status: Acute (5) Prolonged QT interval: Status: Acute DS: Summary Hospital Course Hospital Course: 63-year-old male with history of cocaine and heroin abuse in remission, HIV on HAART therapy, nonischemic cardiomyopathy, COPD, heart failure with reduced ejection fraction, CKD stage 3, TERRY occasionally compliant with CPAP, history of hepatitis-C, mood disorder presented to the ED earlier this morning due to sudden-onset shortness of breath and on a nonproductive cough that started around 02:00 this morning. He states he was unable to catch his breath and reports symptoms are worsening with exertion. Upon EMS arrival, patient was satting in the 60s on room air. He is not oxygen dependent at home. He denies fevers but endorses chills. No sore throat, congestion, abdominal pain, nausea, vomiting, diarrhea, lightheadedness, wheezing, chest pain. He does report recent admission to [facility] for anemia and AMBER, records to be requested. Since arrival, patient has been afebrile but tachycardic to 120, tachypneic. He was initially placed on BiPAP for increased work of breathing and dyspnea but has been weaned to high-flow maintaining oximetry 95-97%. No hypotension. There is a mild leukopenia 4.7, microcytic anemia with H/H 11.2/36.3%, thrombocytopenia of 155. No bandemia. Renal function consistent with baseline, electrolyte levels normal except for chloride 110, CO2 19. VBG showed pH 7.24, pCO2 42, bicarb 18. Initial lactic acid 3.6, improved to 1.7 with IV fluids. Troponin 64.1, CRP 3.42, BNP 334. Procalcitonin 0.09. Urinalysis not indicative of infection. He is positive for COVID-19. In the ED, has received IV LR, cefepime, vancomycin, IV magnesium, methylprednisolone, and DuoNebs. He currently reports feeling improved. Evaluated by ICU and not felt to require ICU level of care. Hospital course: Patient came to the hospital because of acute hypoxemic respiratory failure in setting of COVID infection as well as possible bacterial pneumonia and severe sepsis: Patient was initiated on IV steroids, antibiotics, high-flow also briefly required BiPAP-with above supportive care patient condition improved, tapered off high-flow currently not hypoxic: Patient already completed dexamethasone, complete Augmentin 500 mg p.o. b.i.d. and doxycycline 100 mg p.o. b.i.d. for 3 more days.hypoxia and sepsis resolved. Repeat chest imaging outpatient in 3-4 weeks to see resolution of pneumonia. Prolonged qtc-imrpoving on ekg: qtc seems to be improved significantly, electrolytes seems to be fine. Also echo EF is improving 40-45%. d/w cardiology -patient denies any chest pain ,ekg seems similar -twave inversion as admission, patient is on aspirin, beta-blockers , possibly not on statin due to hx of recent crtical care myopathy. Consider checking lipid panel outpatient and further discussion outpatient with Cardiology for need of statin. patient is to follow-up outpatient with his Cardiology for further management. PT recommended rehab- patient refused it so will be going home with VNA/PT. plan: continue augmentin 500 mg po bid and doxycycline 100 mg po bid x3 days Repeat chest imaging outpatient in 3-4 weeks to see resolution of pneumonia. Consider checking lipid panel outpatient and further discussion outpatient with Cardiology for need of statin. follow with cardiology and pcp. Above management discussed with the patient detail length he understand in agreement with the above plan, time spent 40 minute. Time Attestation Total time managing care of this patient today: 40 mintues. Discharge Coordination Time (in mins): 40min Quality: Safe Use of Opioids Does Pt have an Active Cancer Diagnosis on the Problem List?: No Quality: Stroke Does the patient have a stroke diagnosis?: No Physical Exam Vital Signs: Vital Signs: Last Vital Signs Temp 97.5 F 04/03/24 07:17 Pulse 86 04/03/24 11:45 Resp 18 04/03/24 11:45 BP 100/65 04/03/24 07:17 Pulse Ox 93 04/03/24 07:17 O2 Del Method Room Air 04/03/24 07:17 O2 Flow Rate 3 03/31/24 04:00 FiO2 35.5 03/29/24 00:00 BMI result Body Mass Index 23.2 Appearance: Alert.? Oriented X3.? cvs: rrr, [id number] . res: clear to auscultation ,no rhonchii or wheezing abd: no rebound or guarding ,nt, bs present. ext pulses present , no cyanosis . neuro: axo3 , nonfocal. DS: Data Data Completed and Pending Completed studies during hospitalization [Text1]: Procedures Bypass Trachea to Cutaneous with Tracheostomy Device, Open Approach (10/02/23) Insertion of Endotracheal Airway into Trachea, Via Natural or Artificial Opening (10/02/23) Insertion of Feeding Device into Stomach, Percutaneous Approach (10/02/23) Insertion of Infusion Device into Bone Marrow, Percutaneous Approach (10/02/23) Insertion of Infusion Device into Superior Vena Cava, Percutaneous Approach (10/02/23) Introduction of Vasopressor into Central Vein, Percutaneous Approach (10/02/23) Respiratory Ventilation, Greater than 96 Consecutive Hours (10/02/23) Transfusion of Nonautologous Red Blood Cells into Peripheral Vein, Percutaneous Approach (10/02/23) Ultrasonography of Superior Vena Cava, Guidance (10/02/23) Labs on day of discharge: Laboratory Results - last 24 hr 04/02/24 04/02/24 04/03/24 16:18 19:52 06:42 Creatinine 2.36 H Estim Creat Clear Calc 29.5 Estimated GFR 28 POC Glucose 194 H 130 H 04/03/24 04/03/24 07:21 11:30 Creatinine Estim Creat Clear Calc Estimated GFR POC Glucose 159 H 115 Discharge Plan Discharge Anticipated Discharge Date/Time: 04/03/24 11:36 Patient Disposition: Home Health Service Discharge Diagnosis: Acute hypoxemic respiratory failure in setting of COVID, possible bacterial pneumonia also, abnormal EKG. Referrals: [facility] [Other] - 3-5 Days ([facility], YOU HAVE AN APPOINTMENT ON SATURDAY 04/07 AT 8:45AM) [facility] [Outside] - 1 Week (CORRECTION AND HOME PHYSICAL THERAPY) Loreta Bhagta MD [Primary Care Provider] - 1 Week Discharge Medications: New magnesium oxide 400 mg (241.3 mg magnesium) Tablet 400 mg PO BIDPC Qty: 20 0RF amoxicillin-pot clavulanate 500-125 mg Tablet 1 tab PO BID Qty: 6 0RF doxycycline monohydrate 100 mg Capsule 100 mg PO Q12H Qty: 6 0RF Robitussin Cough-Sore Throat 325-10 mg/10 mL liquid 10 ml PO Q4H PRN (Reason: cough) Qty: 118 0RF Continued lamivudine 100 mg tablet 100 mg PO DAILY lamotrigine 25 mg tablet 25 mg PO BID sodium bicarbonate 650 mg tablet 650 mg PO DAILY Tivicay 50 mg tablet 50 mg PO DAILY albuterol sulfate 90 mcg/actuation Hfa Aerosol Inhaler 2 puff INHALATION Q4H PRN (Reason: Wheezing) quetiapine 25 mg tablet 100 mg PO BEDTIME melatonin 3 mg tablet 9 mg PO BEDTIME PRN (Reason: sleep) oxycodone 5 mg tablet 5 mg PO Q6H PRN (Reason: Pain) Rx Instructions: Partial Fill upon patient request. metoprolol tartrate 25 mg tablet 25 mg PO DAILY Protocol: Hold for SBP/HR < HOLD for SBP < : 90 HOLD for HR < : 60 aspirin 81 mg Tablet,Delayed Release (Dr/Ec) 81 mg PO DAILY guaifenesin 100 mg/5 mL Liquid 200 mg PO Q4H PRN (Reason: Cough) ascorbic acid (vitamin C) [Vitamin C] 500 mg Tablet 500 mg PO DAILY pantoprazole 40 mg Tablet,Delayed Release (Dr/Ec) 40 mg PO BID abacavir 20 mg/mL Solution 600 mg PO DAILY simethicone 80 mg Tablet,Chewable 80 mg PO Q6H PRN (Reason: BLOADING) tiotropium bromide [Spiriva with HandiHaler] 18 mcg Capsule, W/Inhalation Device 1 cap INHALATION DAILY Rx Instructions: puncture 1 cap using device; one dose = 2 inhalations cholecalciferol (vitamin D3) [Vitamin D3] 25 mcg (1,000 unit) Tablet 50 mcg PO DAILY magnesium glycinate 100 mg Tablet 100 mg PO BEDTIME torsemide 40 mg Tablet 40 mg PO BID No Action buprenorphine-naloxone [Suboxone] 12-3 mg film 1 film buccal Q24H Qty: 14 0RF Discharge Orders: Discharge Order (Routine); Ordered 04/03/24 Ordered By: Ester Frost Diet: Advance to usual diet Activity on Discharge: As tolerated Stand Alone Forms: Patient Portal Discharge page Print Language: Khmer Other Ambulatory Orders: Complete Blood Count no Diff (Routine) Timeframe: 1 Week Facility: [facility] - Location: Laboratory Ordered By: Ester Frost Comprehensive Met. Panel (Routine) Timeframe: 1 Week Facility: [facility] - Location: Laboratory Ordered By: Ester Frost Lipid Panel (Routine) Timeframe: 1 Week Facility: [facility] - Location: Laboratory Ordered By: Ester Frost Care Plan Goals: Patient came to the hospital because of acute hypoxemic respiratory failure in setting of COVID infection as well as possible bacterial pneumonia and severe sepsis: Patient was initiated on IV steroids, antibiotics, high-flow also briefly required BiPAP-with above supportive care patient condition improved, tapered off high-flow currently not hypoxic: Patient already completed dexamethasone, complete Augmentin 500 mg p.o. b.i.d. and doxycycline 100 mg p.o. b.i.d. for 3 more days. Repeat chest imaging outpatient in 3-4 weeks to see resolution of pneumonia. Prolonged qtc-imrpoving on ekg: Which seems to be improved significantly, electrolytes seems to be fine. Also echo EF is improving 40-45%. d/w cardiology -patient denies any chest pain ,ekg seems similar -twave inversion as admission, patient is on aspirin, beta-blockers , possibly not on statin due to hx of recent crtical care myopathy. Consider checking lipid panel outpatient and further discussion outpatient with Cardiology for need of statin. patient is to follow-up outpatient with his Cardiology for further management. PT recommended rehab- patient refused it so will be going home with VNA/PT. Above management discussed with the patient detail length he understand in agreement with the above plan, time spent 40 minute. Health Concerns: as above. Plan of Treatment: as above. Assessment: as above. Patient Instructions: Viral Pneumonia (DC), Pneumonia (DC) Discharge Date/Time: 04/03/24 14:11
--- NOTE | 2024-04-03 11:52 | P.F2F_ITS ---
Service Date Service Date: 04/03/24 Encounter Date of encounter: 04/03/24 Encounter: covid ,hypoxia ,penumonia Reasons for Services Signs and symptoms assessed: Shortness of breath or chest pain or fever or any new symptoms. Reason for care home: CV/CP assess and/or care, medication management, medication treatment and teach disease management Reason for occupational therapy: home safety and mobility, therapeutic exercises, restore joint function, gait/transfer training, assess need for DME, ADL training, energy conservation and other MD Overseeing Care: Loreta Bhagat Homebound: Leaving the home is medically contraindicated at this time without the asist of a device and/or another person due th the listed conditions above and below. Reason homebound: weakness related to hospital stay Homebound supporting statement: Patient is generalized weak has multiple comorbidities including HIV, COVID, pneumonia-patient needs help with appointments, blood draws, disease management, PT . Certification: Based on the above findings, I certify that this patient is confined to the home and needs intermittent care home care, physical therapy and/or speech therapy, or continues to need occupational therapy. The patient is under my care, and I have initiated the establishment of the plan of care. The patient will be followed by a physician who will periodically review the plan of care. Time Spent With Patient Time: Total time managing care of this patient today ____ minutes.
[2024-04-03 11:54] VITALS: BP 134/83; PULSE 85; RESP 18; TEMP 36.7; O2SAT 92
[2024-04-03] MEDS: Buprenorphine/Naloxone 4/1 mg FILM 1 FILM SUBLINGUAL (12:00)
== END 2024-04-03 14:11 | disposition home health service (06) | DRG 720 ==
LOC: HO.ED 08:12 → HO.EDOVER 12:13 → HO.IMC 22:10
PROVIDERS: Emergency Medicine; Nurse Practitioner Psychiatric/Mental Health; Admitting Provider Physician Assistant; Emergency Provider Emergency Medicine; PCP Internal Medicine; Visit Provider Internal Medicine
DX: A41.9 Sepsis, unspecified organism (principal); U07.1 COVID-19; E87.21 Acute metabolic acidosis; J96.01 Acute respiratory failure with hypoxia; J96.02 Acute respiratory failure with hypercapnia; D69.6 Thrombocytopenia, unspecified; I42.8 Other cardiomyopathies; J15.9 Unspecified bacterial pneumonia; R65.20 Severe sepsis without septic shock; F19.91 Other psychoactive substance use, unspecified, in remission; F11.20 Opioid dependence, uncomplicated; F39 Unspecified mood [affective] disorder; R94.31 Abnormal electrocardiogram [ECG] [EKG]; D50.9 Iron deficiency anemia, unspecified; J44.0 Chronic obstructive pulmonary disease with (acute) lower respiratory infection; G47.33 Obstructive sleep apnea (adult) (pediatric); Z21 Asymptomatic human immunodeficiency virus [HIV] infection status; N18.30 Chronic kidney disease, stage 3 unspecified; Z91.199 Patient's noncompliance with other medical treatment and regimen due to unspecified reason; Z79.82 Long term (current) use of aspirin; Z79.899 Other long term (current) drug therapy
CPT/HCPCS: 0241U; 36415; 71045; 80048; 80061; 80076; 80202; 80307; 81001; 82565; 82803; 82947; 83036; 83605; 83690; 83735; 83880; 84132; 84145; 84484; 85014; 85018; 85025; 86140; 87040; 87449; 87640; 87641; 87899; 93005; 93306; 94640; 97163; 99285; J0692; J1100; J1644; J2919; J3370; J3475; J7120; Q9957

== ENCOUNTER → 2024-03-28 05:41 | Outpatient (BNV) | payer OTHER, SELFPAY | PROVIDERS: Emergency Provider Emergency Medicine; Visit Provider Internal Medicine Pulmonary Disease | DX: J96.01 Acute respiratory failure with hypoxia (principal); U07.1 COVID-19 | CPT/HCPCS: 99221 ==

== ENCOUNTER 2024-03-28 12:01 | Outpatient (BNV) | payer OTHER, SELFPAY | END 2024-03-31 07:00 | PROVIDERS: Admitting Provider Physician Assistant; Emergency Provider Emergency Medicine; PCP Internal Medicine; Visit Provider Internal Medicine Cardiovascular Disease | DX: I51.89 Other ill-defined heart diseases (principal) | CPT/HCPCS: 93306 ==

== ENCOUNTER → 2024-03-28 12:01 | Outpatient (BNV) | payer OTHER, SELFPAY | PROVIDERS: Admitting Provider Physician Assistant; Emergency Provider Emergency Medicine; Visit Provider Physician Assistant | DX: F11.90 Opioid use, unspecified, uncomplicated (principal); U07.1 COVID-19; J18.9 Pneumonia, unspecified organism; R09.02 Hypoxemia; R94.31 Abnormal electrocardiogram [ECG] [EKG] | CPT/HCPCS: 99222; 99231; 99232; 99239; G0180 ==

== ENCOUNTER → 2024-03-28 12:01 | Outpatient (BNV) | payer OTHER, SELFPAY | PROVIDERS: Admitting Provider Physician Assistant; Emergency Provider Emergency Medicine; PCP Internal Medicine; Visit Provider Nurse Practitioner Psychiatric/Mental Health | DX: F11.90 Opioid use, unspecified, uncomplicated (principal); N18.9 Chronic kidney disease, unspecified; G72.81 Critical illness myopathy | CPT/HCPCS: 99231; 99232 ==

== ENCOUNTER → 2024-03-28 12:01 | Outpatient (BNV) | payer OTHER, SELFPAY | PROVIDERS: Admitting Provider Physician Assistant; Emergency Provider Emergency Medicine; Visit Provider Internal Medicine | DX: J18.9 Pneumonia, unspecified organism (principal); R09.02 Hypoxemia; N28.9 Disorder of kidney and ureter, unspecified; N18.9 Chronic kidney disease, unspecified; B20 Human immunodeficiency virus [HIV] disease; U07.1 COVID-19 | CPT/HCPCS: 99222 ==

== ENCOUNTER 2024-04-07 09:14 | Outpatient (AMB) | payer OTHER, SELFPAY ==
--- NOTE | 2024-04-07 09:02 | MHC.AM.SUB ---
Intake Visit Reasons: Tele Allergies No Known Allergies Allergy (Unverified 04/12/24 08:37) HPI HPI Tele: Details: Patient presents for intake and continuation of treatment for OUD--in remission Seen by this senior mortgage underwriter while medically admitted and initiated on Suboxone Full substance use history obtained inpatient --reviewed notes In brief patient was previously prescribed methadone 50mg daily. QT prolonged during admission --required transition to buprenorphine stabilized on suboxone 12mg daily Patient now home, tolerating current dose Daughter providing support Has in home therapy PFS Medical History (Updated 04/12/24 @ 19:53 by Jorge Brooks MD) Respiratory failure Tachycardia Myocardial injury Pneumonia TERRY (obstructive sleep apnea) Pulmonary nodules Hepatitis C HIV disease COPD (chronic obstructive pulmonary disease) Social History Household Members: Friend(s) Housing: House Do you presently have visiting nurse or other home services: No Comment: Sitter at bedside Patient Tobacco Use Status: Tobacco use Unknown Tobacco use type: Cigarette Cigarette Packs Per Day: 1 Cigarettes Per Day: 4 Years Smoked: 30 Years Substance Use Type: Unknown service: No Review of Systems Const Reports as per HPI and Reports no additional complaints Telehealth Telehealth Telehealth Platform: Telephone Location of provider rendering services: practice address Location of patient: address on file Patient Identification confirmed using: Name, : Yes Telehealth method: voice only Patient verbally consented to treatment: Yes Patient verbally consented to billing insurance company: Yes Minutes spent on Phone/Video with Pt.: 30 Assessment & Plan Assessment & Plan (1) Opioid use disorder: Code(s): F11.90 - Opioid use, unspecified, uncomplicated Category: Medical Plan: continue suboxone at current dose follow up 2 weeks encouraged to call office with any questions or concerns
== END 2024-04-07 09:43 | disposition home or self-care (01) ==
PROVIDERS: PCP Internal Medicine; Visit Provider Nurse Practitioner Psychiatric/Mental Health
DX: F11.90 Opioid use, unspecified, uncomplicated (principal)
CPT/HCPCS: 99214

== ENCOUNTER → 2024-04-07 09:14 | Outpatient (BNVA) | payer OTHER, SELFPAY | PROVIDERS: PCP Internal Medicine; Visit Provider Nurse Practitioner Psychiatric/Mental Health ==

== ENCOUNTER 2024-04-12 08:30 | Outpatient (AMB) | payer OTHER, SELFPAY ==
--- NOTE | 2024-04-12 08:32 | MHC.OFFVIS ---
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 he also is being evaluated for abnormal CT scan with multiple nodular densities which are concerning in appearance. Back in 2019 the patient did undergo a CT scan demonstrating the abnormalities and sometime after that he did undergo a PET scan demonstrating mild FDG activity suggesting infectious versus inflammatory but cannot rule out a smoldering malignant process. Therefore he had a repeat CT scan in October 2020 demonstrating persistent nodular densities and emphysema. More recent the patient was having worsening shortness of breath. His shortness of breath is very significant to the point that if he needs to go to the bathroom he does not have time to make it. Therefore he has been very incontinence of both urine and stool. During [place] trip to the beach apparently the patient developed significant shortness of breath and apparently does not remember what happened after that. He was taken to local hospital where he was intubated with respiratory failure. He was also told he had an infection. The patient does not have the records with him. Will requesting from hospital where he was that. After he was treated for the infection and was situated on his respiratory medications he was discharged. Overall he is starting to feel better. Although he still has this significant episodes of shortness of breath. Denies any fevers or chills at this time. the patient is not currently on any maintenance therapy. Therefore will going to optimize his respiratory therapy and also follow-up with his pulmonary nodular densities and also his lung capacity. 04/30/2023 the patient is here for a pulmonary follow-up visit. The patient recently was hospitalized back go with some RO at [facility]. Apparently he was found unresponsive with acute on chronic respiratory failure. He was intubated admitted to the ICU briefly. He was subsequently extubated. His respiratory viral panel was positive for enterovirus. She was treated extubated and subsequently discharged. Now he is using his respiratory therapy. He was feeling very short of breath with minimal activity but he is getting slowly better. Still gets shortness of breath with going up a flight of stairs or a incline. Moderate severity. We did taken for 6 minute walk test the patient did desaturate some but did not qualify for oxygen. The patient did have a CT scan of the chest air. I also reviewed the CT scan that he had here just a week ago and also had a CT scan back a year ago. It appears that the nodular changes have been stable. He has a larger area on the right upper lobe that were following closely but does not appear to have changed significantly. The CT scan just that has not been officially been read so will wait for the final report. But clinically doing well although he is deconditioned. Will request pulmonary function studies and will get him involved in pulmonary rehabilitation at this time. 06/24/2023 the patient is here for pulmonary follow-up visit. The patient is feeling better overall. We did review his CT scan of the chest demonstrating interval stability of the pulmonary nodules. The patient does have extensive emphysema. will go ahead and repeat his CT scan in a year's time. The patient also has his positive airway pressure therapy. He states that he is using it regularly. Although they reports states that he is not using it as much as he should. I did encourage him to use it at least 4 hours a night. He is going to start using it as such. The mask fitting as well. The patient does feel better when he uses it. He does continue to use his respiratory therapy with good effect. No further changes at this time. Will follow-up in 6-8 months. 04/12/2024 the patient is here for a hospital follow-up visit. He had a very eventful stay back in September. He had respiratory failure admitted to the ICU. He did require tracheostomy. Subsequently after that he went to an acute rehab where he was able to be liberated from the ventilator and subsequently decannulated. The patient does have a healing tracheostomy still. Low open. The patient also in March just when he was recovering developed COVID. He was readmitted to the hospital. At that point he had acute hypercarbic respiratory failure requiring ICU level of care again. Now the patient is at home. He is having significant shortness of breath and tachycardia. We did go for a walking oximetry in the office. Heart rate was in the 140s at rest and his pulse ox was at 92%. He did desaturate quickly to 87% and heart rate increase to the 150s. He was placed on 3 L pulse improving his oxygenation and also the heart rate. He is going to get blood work including an EKG today. The patient also needs to go back to pulmonary rehabilitation. He had an x-ray on 03/28/2024 which I personally reviewed demonstrating airspace disease but overall stable. If anything a little better. [facility] Medical History (Updated 04/12/24 @ 19:53 by Jorge Brooks MD) Respiratory failure Tachycardia Myocardial injury Pneumonia TERRY (obstructive sleep apnea) Pulmonary nodules Hepatitis C HIV disease COPD (chronic obstructive pulmonary disease) Social History Household Members: Friend(s) Housing: House Do you presently have visiting nurse or other home services: No Comment: Sitter at bedside Patient Tobacco Use Status: Tobacco use Unknown Tobacco use type: Cigarette Cigarette Packs Per Day: 1 Cigarettes Per Day: 4 Years Smoked: 30 Years Substance Use Type: Unknown service: No Review of Systems Const Reports difficulty sleeping and Denies fever(s) Eyes Denies change in vision ENT Denies change in voice Card Denies chest pain, Reports dyspnea and Reports dyspnea on exertion Resp Reports cough, Reports dyspnea, Reports dyspnea on exertion and Denies wheezing GI Reports as per HPI Musc Reports no additional complaints and Reports muscle weakness Skin/Breast Denies rash Aller/Immun Denies wheezing Physical Exam Vital Signs: Last Vital Signs Pulse 90 04/12/24 08:35 BP 132/78 04/12/24 08:35 Pulse Ox 93 04/12/24 08:35 Oxygen Delivery Method Room Air 04/12/24 08:35 BMI result Body Mass Index 22.3 Const General: healthy appearing and comfortable HEENT Head: Yes normal to inspection Eyes General: appearance normal, both eyes and all related structures Neck Neck: Yes normal visual inspection, Yes full ROM, Yes supple and Yes other (dressing CDI, air leakage through trach stoma) Chest Chest palpation & inspection: normal inspection of the chest Resp Effort & Inspection: normal respiratory effort Auscultation: diminished lung sounds Cardio Rate: regular rate Rhythm: regular rhythm Heart sounds: S1 normal heart sound present and S2 normal heart sound present GI Inspection: Yes normal to inspection Skin General skin exam: no rashes or lesions noted Extrem General: No cyanosis and No edema Office Procedures 6 Minute Walk Time:: 19:53 SPO2 % at rest: 92 Pulse at rest: 140 SPO2 % during excercise: 87 Pulse during excercise: 152 Distance in yards walked: 100 Glenda Score: 7 Supplemental Oxygen: desaturates to 87% on RA with minimal activity. very tachycardiac. placed on 3L/pulse keeping pox 93% with activity. [id number] - 6 Minute Walk Results Reviewed Results Reviewed: personally reviewed CXR with stable bilateral airspace disease Assessment & Plan Assessment & Plan (1) COPD (chronic obstructive pulmonary disease): Code(s): J44.9 - Chronic obstructive pulmonary disease, unspecified Category: Medical Qualifiers: COPD type: chronic bronchitis Chronic bronchitis type: mucopurulent Qualified Code(s): J41.1 - Mucopurulent chronic bronchitis (2) Pulmonary nodules: Code(s): R91.8 - Other nonspecific abnormal finding of lung field Category: Medical (3) TERRY (obstructive sleep apnea): Comment: severe Code(s): G47.33 - Obstructive sleep apnea (adult) (pediatric) Category: Medical (4) Respiratory failure: Code(s): J96.90 - Respiratory failure, unspecified, unspecified whether with hypoxia or hypercapnia Category: Medical Qualifiers: Chronicity: chronic Respiratory failure complication: hypoxia and hypercapnia Qualified Code(s): J96.11 - Chronic respiratory failure with hypoxia; J96.12 - Chronic respiratory failure with hypercapnia (5) Tachycardia: Code(s): R00.0 - Tachycardia, unspecified Category: Medical Plan continue Symbicort and Spiriva short-acting beta agonist as needed continue BIPAP therapy at night, needs to use it >4 hours/night restart Pulmonary rehab start oxygen with POC 3L/pulse with activity and sleep dressing to trach stoma until it closes. EKG bloodwork Follow-up in 3-4 months Orders: Orders ECG 12 lead EKG Today J44.9 - Chronic obstructive pulmonary disease, unspecified, J96.01 - Acute respiratory failure with hypoxia, J96.02 - Acute respiratory failure with hypercapnia, R00.0 - Tachycardia, unspecified Troponin-I High Sensitivity Today J96.01 - Acute respiratory failure with hypoxia, J96.02 - Acute respiratory failure with hypercapnia, R00.0 - Tachycardia, unspecified D Dimer High Sensitivity Today J96.01 - Acute respiratory failure with hypoxia, J96.02 - Acute respiratory failure with hypercapnia, R00.0 - Tachycardia, unspecified Complete Blood Count Auto Diff Today J96.01 - Acute respiratory failure with hypoxia, J96.02 - Acute respiratory failure with hypercapnia, R00.0 - Tachycardia, unspecified Basic Metabolic Panel Today J96.01 - Acute respiratory failure with hypoxia, J96.02 - Acute respiratory failure with hypercapnia, R00.0 - Tachycardia, unspecified Venous Blood Gas Today J96.01 - Acute respiratory failure with hypoxia, J96.02 - Acute respiratory failure with hypercapnia, R00.0 - Tachycardia, unspecified Erythrocyte Sedimentation Rate Today J96.01 - Acute respiratory failure with hypoxia, J96.02 - Acute respiratory failure with hypercapnia, R00.0 - Tachycardia, unspecified Pulmonary Rehab Today J96.01 - Acute respiratory failure with hypoxia, J96.02 - Acute respiratory failure with hypercapnia, R00.0 - Tachycardia, unspecified Coding Level of Care Code Est Pt Level 5 (38276) Diagnoses Simple chronic bronchitis J41.1 COPD type: chronic bronchitis Chronic bronchitis type: mucopurulent Pulmonary nodules R91.8 TERRY (obstructive sleep apnea) G47.33 Chronic respiratory failure with hypoxia and hypercapnia J96.11; J96.12 Chronicity: chronic Respiratory failure complication: hypoxia and hypercapnia Tachycardia R00.0 CPT Codes Coding ([id number]) Time Spent (min) 45
[2024-04-12 08:35] VITALS: BP 132/78; PULSE 90; O2SAT 93; BMI 22.3
[2024-04-12 19:52] VITALS: PULSE 140; O2SAT 92
== END 2024-04-12 09:00 | disposition home or self-care (01) ==
PROVIDERS: PCP Internal Medicine; Visit Provider Hospitalist
DX: J41.1 Mucopurulent chronic bronchitis (principal); R91.8 Other nonspecific abnormal finding of lung field; G47.33 Obstructive sleep apnea (adult) (pediatric); J96.11 Chronic respiratory failure with hypoxia; J96.12 Chronic respiratory failure with hypercapnia; R00.0 Tachycardia, unspecified
CPT/HCPCS: 94618; 99215

== ENCOUNTER → 2024-04-12 08:30 | Outpatient (REF) | payer OTHER, SELFPAY ==
--- NOTE | 2024-04-12 09:10 | ECG_ITS ---
Test Reason : COPD Blood Pressure : / mmHG Vent. Rate : 122 BPM Atrial Rate : 122 BPM P-R Int : 192 ms QRS Dur : 064 ms QT Int : 280 ms P-R-T Axes : 088 040 089 degrees QTc Int : 399 ms Sinus tachycardia Anteroseptal infarct (cited on or before 12-JAN-2014) Abnormal ECG When compared with ECG of 01-APR-2024 08:25, QRS duration has decreased Questionable change in initial forces of Anterior leads Nonspecific T wave abnormality no longer evident in Anterior leads Referred By: Jorge Brooks Electronically Signed By:JULITA IRVING
== END ==
LOC: HO.CARD 08:30
PROVIDERS: PCP Internal Medicine; Visit Provider Hospitalist
DX: R00.0 Tachycardia, unspecified (principal); J41.1 Mucopurulent chronic bronchitis; R91.8 Other nonspecific abnormal finding of lung field; G47.33 Obstructive sleep apnea (adult) (pediatric); J96.11 Chronic respiratory failure with hypoxia; J96.12 Chronic respiratory failure with hypercapnia
CPT/HCPCS: 93005; 94618; 99212

== ENCOUNTER 2024-04-21 08:39 | Outpatient (AMB) | payer OTHER, SELFPAY ==
--- NOTE | 2024-04-21 10:04 | A.OFFVISCC_ITS ---
Intake Visit Reasons: Tele Allergies No Known Allergies Allergy (Unverified 04/12/24 08:37) HPI HPI Tele: Details: Patient presents for follow up via telehealth Currently prescribed Suboxone 12mg daily Reports current dose is effective excited to be going to [place] to visit his family at the end of the month has been following up with providers outpatient [facility] Medical History (Updated 04/12/24 @ 19:53 by Jorge Brooks MD) Respiratory failure Tachycardia Myocardial injury Pneumonia TERRY (obstructive sleep apnea) Pulmonary nodules Hepatitis C HIV disease COPD (chronic obstructive pulmonary disease) Social History Household Members: Friend(s) Housing: House Do you presently have visiting nurse or other home services: No Comment: Sitter at bedside Patient Tobacco Use Status: Tobacco use Unknown Tobacco use type: Cigarette Cigarette Packs Per Day: 1 Cigarettes Per Day: 4 Years Smoked: 30 Years Substance Use Type: Unknown service: No Review of Systems Const Reports as per HPI and Reports no additional complaints Telehealth Telehealth Telehealth Platform: Telephone Location of provider rendering services: practice address Location of patient: address on file Patient Identification confirmed using: Name, : Yes Telehealth method: voice only Patient verbally consented to treatment: Yes Patient verbally consented to billing insurance company: Yes Minutes spent on Phone/Video with Pt.: 15 Assessment & Plan Assessment & Plan (1) Opioid use disorder: Code(s): F11.90 - Opioid use, unspecified, uncomplicated Category: Medical Plan: * continue suboxone at current dose * refill due next week * follow up 4-5 weeks
== END 2024-04-21 09:13 | disposition home or self-care (01) ==
PROVIDERS: PCP Internal Medicine; Visit Provider Nurse Practitioner Psychiatric/Mental Health
DX: F11.90 Opioid use, unspecified, uncomplicated (principal)
CPT/HCPCS: 99213

== ENCOUNTER → 2024-04-21 08:39 | Outpatient (BNVA) | payer OTHER, SELFPAY | PROVIDERS: PCP Internal Medicine; Visit Provider Nurse Practitioner Psychiatric/Mental Health ==

== ENCOUNTER 2024-05-26 08:46 | Outpatient (AMB) | payer OTHER, SELFPAY ==
--- NOTE | 2024-05-26 08:46 | A.OFFVISCC_ITS ---
Intake Visit Reasons: Tele Allergies No Known Allergies Allergy (Unverified 04/12/24 08:37) HPI HPI Tele: Details: Patient presents for follow up via telehealth Currently prescribed Suboxone 12mg daily tolerating current dose denies any side effects enjoyed his time in [place] with family will be starting pulmonary rehab soon [facility] Medical History (Updated 04/12/24 @ 19:53 by Jorge Brooks MD) Respiratory failure Tachycardia Myocardial injury Pneumonia TERRY (obstructive sleep apnea) Pulmonary nodules Hepatitis C HIV disease COPD (chronic obstructive pulmonary disease) Social History Household Members: Friend(s) Housing: House Do you presently have visiting nurse or other home services: No Comment: Sitter at bedside Patient Tobacco Use Status: Tobacco use Unknown Tobacco use type: Cigarette Cigarette Packs Per Day: 1 Cigarettes Per Day: 4 Years Smoked: 30 Years Substance Use Type: Unknown service: No Review of Systems Const Reports as per HPI and Reports no additional complaints Telehealth Telehealth Telehealth Platform: Telephone Location of provider rendering services: practice address Location of patient: address on file Patient Identification confirmed using: Name, : Yes Telehealth method: voice only Patient verbally consented to treatment: Yes Patient verbally consented to billing insurance company: Yes Minutes spent on Phone/Video with Pt.: 15 Assessment & Plan Assessment & Plan (1) Opioid use disorder: Code(s): F11.90 - Opioid use, unspecified, uncomplicated Category: Medical Plan: * continue suboxone at current dose * follow up 6 weeks Medications: Refilled buprenorphine-naloxone 12-3 mg (Suboxone) 1 film buccal Q24H 30 ea 0RF
== END 2024-05-26 09:43 | disposition home or self-care (01) ==
PROVIDERS: PCP Internal Medicine; Visit Provider Nurse Practitioner Psychiatric/Mental Health
DX: F11.90 Opioid use, unspecified, uncomplicated (principal)
CPT/HCPCS: 99213

== ENCOUNTER → 2024-05-26 08:46 | Outpatient (BNVA) | payer OTHER, SELFPAY | PROVIDERS: PCP Internal Medicine; Visit Provider Nurse Practitioner Psychiatric/Mental Health ==

== ENCOUNTER 2024-06-05 10:45 | Outpatient (AMB) | payer OTHER, SELFPAY ==
--- NOTE | 2024-06-05 10:52 | MHC.OFFVIS ---
Vital Signs 06/05/24 10:57 Height 5 ft 8 in Weight 135 lb BMI 20.5 BP 118/70 Blood Pressure Location Lt brachial Position Sitting Pulse 90 Pulse Source Pulse Oximeter Pulse Oximetry (%) 94 Oxygen Delivery Method Room Air Intake Visit Reasons: COPD Allergies No Known Allergies Allergy (Unverified 06/05/24 10:54) HPI Comments Details: The patient is a 63-year-old gentleman with known hepatitis-C, HIV and COPD. he also is being evaluated for abnormal CT scan with multiple nodular densities which are concerning in appearance. Back in 2019 the patient did undergo a CT scan demonstrating the abnormalities and sometime after that he did undergo a PET scan demonstrating mild FDG activity suggesting infectious versus inflammatory but cannot rule out a smoldering malignant process. Therefore he had a repeat CT scan in October 2020 demonstrating persistent nodular densities and emphysema. More recent the patient was having worsening shortness of breath. His shortness of breath is very significant to the point that if he needs to go to the bathroom he does not have time to make it. Therefore he has been very incontinence of both urine and stool. During [place] trip to the beach apparently the patient developed significant shortness of breath and apparently does not remember what happened after that. He was taken to local hospital where he was intubated with respiratory failure. He was also told he had an infection. The patient does not have the records with him. Will requesting from hospital where he was that. After he was treated for the infection and was situated on his respiratory medications he was discharged. Overall he is starting to feel better. Although he still has this significant episodes of shortness of breath. Denies any fevers or chills at this time. the patient is not currently on any maintenance therapy. Therefore will going to optimize his respiratory therapy and also follow-up with his pulmonary nodular densities and also his lung capacity. 04/30/2023 the patient is here for a pulmonary follow-up visit. The patient recently was hospitalized back go with some RO at [facility]. Apparently he was found unresponsive with acute on chronic respiratory failure. He was intubated admitted to the ICU briefly. He was subsequently extubated. His respiratory viral panel was positive for enterovirus. She was treated extubated and subsequently discharged. Now he is using his respiratory therapy. He was feeling very short of breath with minimal activity but he is getting slowly better. Still gets shortness of breath with going up a flight of stairs or a incline. Moderate severity. We did taken for 6 minute walk test the patient did desaturate some but did not qualify for oxygen. The patient did have a CT scan of the chest air. I also reviewed the CT scan that he had here just a week ago and also had a CT scan back a year ago. It appears that the nodular changes have been stable. He has a larger area on the right upper lobe that were following closely but does not appear to have changed significantly. The CT scan just that has not been officially been read so will wait for the final report. But clinically doing well although he is deconditioned. Will request pulmonary function studies and will get him involved in pulmonary rehabilitation at this time. 06/24/2023 the patient is here for pulmonary follow-up visit. The patient is feeling better overall. We did review his CT scan of the chest demonstrating interval stability of the pulmonary nodules. The patient does have extensive emphysema. will go ahead and repeat his CT scan in a year's time. The patient also has his positive airway pressure therapy. He states that he is using it regularly. Although they reports states that he is not using it as much as he should. I did encourage him to use it at least 4 hours a night. He is going to start using it as such. The mask fitting as well. The patient does feel better when he uses it. He does continue to use his respiratory therapy with good effect. No further changes at this time. Will follow-up in 6-8 months. 04/12/2024 the patient is here for a hospital follow-up visit. He had a very eventful stay back in September. He had respiratory failure admitted to the ICU. He did require tracheostomy. Subsequently after that he went to an acute rehab where he was able to be liberated from the ventilator and subsequently decannulated. The patient does have a healing tracheostomy still. Low open. The patient also in March just when he was recovering developed COVID. He was readmitted to the hospital. At that point he had acute hypercarbic respiratory failure requiring ICU level of care again. Now the patient is at home. He is having significant shortness of breath and tachycardia. We did go for a walking oximetry in the office. Heart rate was in the 140s at rest and his pulse ox was at 92%. He did desaturate quickly to 87% and heart rate increase to the 150s. He was placed on 3 L pulse improving his oxygenation and also the heart rate. He is going to get blood work including an EKG today. The patient also needs to go back to pulmonary rehabilitation. He had an x-ray on 03/28/2024 which I personally reviewed demonstrating airspace disease but overall stable. If anything a little better. 06/05/2024 the patient is here for a pulmonary follow-up visit. The patient is better overall. He is using the oxygen still. He does not have to use the oxygen at rest just with activity. Ultimately he is participating in the pulmonary rehabilitation which is also been very helpful for him. At nighttime he is using the BiPAP. This is helpful as well. He is using his respiratory therapy. We did go for a walking oximetry in the heart rate did go up to about 120 but much better than before. He did a lot better overall. The patient does have a CT scan scheduled for a week or 2 from now. Will follow-up with that. In addition to that he is going to have blood work with his temporary staff accountant at [facility]. Therefore the patient will return in 3-4 months she will continue with the current therapy at this time. COUNT INCLUDES [facility] Medical History (Updated 04/12/24 @ 19:53 by Jorge Brooks MD) Respiratory failure Tachycardia Myocardial injury Pneumonia TERRY (obstructive sleep apnea) Pulmonary nodules Hepatitis C HIV disease COPD (chronic obstructive pulmonary disease) Social History Household Members: Friend(s) Housing: House Do you presently have visiting nurse or other home services: No Comment: Sitter at bedside Patient Tobacco Use Status: Tobacco use Unknown Tobacco use type: Cigarette Cigarette Packs Per Day: 1 Cigarettes Per Day: 4 Years Smoked: 30 Years Substance Use Type: Unknown service: No Review of Systems Const Reports difficulty sleeping and Denies fever(s) Eyes Denies change in vision ENT Denies change in voice Card Denies chest pain, Reports dyspnea and Reports dyspnea on exertion Resp Reports cough, Reports dyspnea, Reports dyspnea on exertion and Denies wheezing GI Reports as per HPI Musc Reports no additional complaints and Reports muscle weakness Skin/Breast Denies rash Aller/Immun Denies wheezing Physical Exam Vital Signs: Last Vital Signs Pulse 90 06/05/24 10:57 BP 118/70 06/05/24 10:57 Pulse Ox 94 06/05/24 10:57 Oxygen Delivery Method Room Air 06/05/24 10:57 BMI result Body Mass Index 20.5 Const General: healthy appearing and comfortable HEENT Head: Yes normal to inspection Eyes General: appearance normal, both eyes and all related structures Neck Neck: Yes normal visual inspection, Yes full ROM, Yes supple and Yes other (dressing CDI, air leakage through trach stoma) Chest Chest palpation & inspection: normal inspection of the chest Resp Effort & Inspection: normal respiratory effort Auscultation: diminished lung sounds Cardio Rate: regular rate Rhythm: regular rhythm Heart sounds: S1 normal heart sound present and S2 normal heart sound present GI Inspection: Yes normal to inspection Skin General skin exam: no rashes or lesions noted Extrem General: No cyanosis and No edema Office Procedures Flu Questionnaire Does the patient have a severe egg allergy?: No Does the patient have severe life threatening allergies?: No Does the patient have a fever or illness today?: No Has the patient ever had Guillain-Burlison Syndrome?: No Has the patient ever had any past reaction to a flu shot?: No Immunizations Fluarix Triv [id number] (PF) 45 mcg (15 mcg x 3)/0.5 mL IM syringe Performing Provider: Jorge Brooks MD Performing Location: [facility] Administered by: Nataliia Tomlinson LPN on 06/05/24 11:24 Dose Route Admin Location Dispensed Lot Number Expiration Date NDC Electronic Gluing Machine Operator 0.5 mL IM Right Deltoid 0.5 mL [id number] 02/05/25 [id number] [facility] V[facility] Given Date VIS Provided VIS Publication Date 06/05/24 Single Vaccine 21 Eligibility Eligibility Date Funding Source Not [facility] Eligible 06/05/24 Private Assessment & Plan Assessment & Plan (1) COPD (chronic obstructive pulmonary disease): Code(s): J44.9 - Chronic obstructive pulmonary disease, unspecified Category: Medical Qualifiers: COPD type: chronic bronchitis Chronic bronchitis type: mucopurulent Qualified Code(s): J41.1 - Mucopurulent chronic bronchitis (2) Pulmonary nodules: Code(s): R91.8 - Other nonspecific abnormal finding of lung field Category: Medical (3) Respiratory failure: Code(s): J96.90 - Respiratory failure, unspecified, unspecified whether with hypoxia or hypercapnia Category: Medical Qualifiers: Chronicity: chronic Respiratory failure complication: hypoxia and hypercapnia Qualified Code(s): J96.11 - Chronic respiratory failure with hypoxia; J96.12 - Chronic respiratory failure with hypercapnia (4) Tachycardia: Code(s): R00.0 - Tachycardia, unspecified Category: Medical Plan continue Symbicort and Spiriva short-acting beta agonist as needed continue BIPAP therapy at night, needs to use it >4 hours/night continue Pulmonary rehab oxygen with POC 3L/pulse with activity and sleep Awaiting CT chest Follow-up in 3-4 months Orders: Orders Influenza [id number] Immunization Today J41.1 - Mucopurulent chronic bronchitis Coding Level of Care Code Est Pt Level 4 (46587) Complex EM visit Add On G2211 Diagnoses Simple chronic bronchitis J41.1 COPD type: chronic bronchitis Chronic bronchitis type: mucopurulent Pulmonary nodules R91.8 Chronic respiratory failure with hypoxia and hypercapnia J96.11; J96.12 Chronicity: chronic Respiratory failure complication: hypoxia and hypercapnia Tachycardia R00.0 Time Spent (min) 18
[2024-06-05 10:57] VITALS: BP 118/70; PULSE 90; O2SAT 94; BMI 20.5
== END 2024-06-05 11:21 | disposition home or self-care (01) ==
PROVIDERS: PCP Internal Medicine; Visit Provider Hospitalist
DX: J41.1 Mucopurulent chronic bronchitis (principal); R91.8 Other nonspecific abnormal finding of lung field; J96.11 Chronic respiratory failure with hypoxia; J96.12 Chronic respiratory failure with hypercapnia; R00.0 Tachycardia, unspecified
CPT/HCPCS: 99214; G2211

== ENCOUNTER → 2024-06-05 10:45 | Outpatient (BNVA) | payer OTHER, SELFPAY | PROVIDERS: PCP Internal Medicine; Visit Provider Hospitalist | DX: J41.1 Mucopurulent chronic bronchitis (principal); J96.11 Chronic respiratory failure with hypoxia; J96.12 Chronic respiratory failure with hypercapnia; G47.33 Obstructive sleep apnea (adult) (pediatric); R91.8 Other nonspecific abnormal finding of lung field; R00.0 Tachycardia, unspecified; F17.210 Nicotine dependence, cigarettes, uncomplicated; Z23 Encounter for immunization; Z99.81 Dependence on supplemental oxygen; Z99.89 Dependence on other enabling machines and devices | CPT/HCPCS: 90471; 90656; 99212 ==

== ENCOUNTER 2024-06-23 14:21 | Outpatient (REF) | payer OTHER, SELFPAY | END 2024-06-23 14:22 | disposition home or self-care (01) | LOC: HO.CT 14:21 | PROVIDERS: PCP Internal Medicine; Visit Provider Hospitalist | DX: R91.8 Other nonspecific abnormal finding of lung field (principal) | CPT/HCPCS: 71250 ==

== ENCOUNTER → 2024-06-23 14:23 | Outpatient (BNV) | payer OTHER, SELFPAY | PROVIDERS: PCP Internal Medicine; Visit Provider Radiology Diagnostic Radiology | DX: R91.1 Solitary pulmonary nodule (principal); J90 Pleural effusion, not elsewhere classified | CPT/HCPCS: 71250 ==

== ENCOUNTER 2024-07-14 08:56 | Outpatient (AMB) | payer OTHER, SELFPAY ==
--- NOTE | 2024-07-14 09:04 | MHC.AM.SUB ---
Intake Visit Reasons: Tele Allergies No Known Allergies Allergy (Unverified 06/05/24 10:54) [facility] HPI Tele: Details: Patient presents for follow up via telehealth Currently prescribed Suboxone 12mg QD Reports current dose if effective Feels proud that he has not used any substance in so long Discussed challenges with ongoing ciggarette use Frustrated that he can go weeks or months without smoking, but once he is home the urge is intense He is aware of health impacts with smoking, chavo given his respiratory issues. He is hoping more structure in his day outside of his home will be beneficial Review of Systems Const Reports as per [facility] Telehealth Telehealth Telehealth Platform: Telephone Location of provider rendering services: practice address Location of patient: address on file Patient Identification confirmed using: Name, : Yes Telehealth method: voice only Patient verbally consented to treatment: Yes Patient verbally consented to billing insurance company: Yes Minutes spent on Phone/Video with Pt.: 15 Assessment & Plan Assessment & Plan (1) Opioid use disorder: Code(s): F11.90 - Opioid use, unspecified, uncomplicated Category: Medical Plan: continue suboxone at current dose provided patient with [place] smoking cessation resources for him to follow up with follow up one month Medications: Refilled buprenorphine-naloxone 12-3 mg (Suboxone) 1 film buccal Q24H 30 ea 0RF PFSH Medical History (Updated 04/12/24 @ 19:53 by Jorge Brooks MD) Respiratory failure Tachycardia Myocardial injury Pneumonia TERRY (obstructive sleep apnea) Pulmonary nodules Hepatitis C HIV disease COPD (chronic obstructive pulmonary disease) Social History Household Members: Friend(s) Housing: House Do you presently have visiting nurse or other home services: No Comment: Sitter at bedside Patient Tobacco Use Status: Tobacco use Unknown Tobacco use type: Cigarette Cigarette Packs Per Day: 1 Cigarettes Per Day: 4 Years Smoked: 30 Years Substance Use Type: Unknown service: No
== END 2024-07-14 09:42 | disposition home or self-care (01) ==
PROVIDERS: PCP Internal Medicine; Visit Provider Nurse Practitioner Psychiatric/Mental Health
DX: F11.90 Opioid use, unspecified, uncomplicated (principal)
CPT/HCPCS: 99213

== ENCOUNTER → 2024-07-14 08:56 | Outpatient (BNVA) | payer OTHER, SELFPAY | PROVIDERS: PCP Internal Medicine; Visit Provider Nurse Practitioner Psychiatric/Mental Health ==

== ENCOUNTER 2024-08-30 08:55 | Outpatient (AMB) | payer OTHER, SELFPAY ==
--- NOTE | 2024-08-30 08:56 | MHC.AM.SUB ---
Intake Visit Reasons: Tele Allergies No Known Allergies Allergy (Unverified 06/05/24 10:54) HPI HPI Tele: Details: Patient presents for follow up via telehealth Currently prescribed Suboxone 12mg QD Doing well with current dose--finds that it helps with pain and body aches as well He is currently engaged in cardiac rehab--goes 2 days per week No concerns at this time Review of Systems Const Reports as per HPI and Reports no additional complaints Telehealth Telehealth Telehealth Platform: Telephone Location of provider rendering services: practice address Location of patient: address on file Patient Identification confirmed using: Name, : Yes Telehealth method: voice only Patient verbally consented to treatment: Yes Patient verbally consented to billing insurance company: Yes Minutes spent on Phone/Video with Pt.: 15 [facility] Medical History (Updated 04/12/24 @ 19:53 by Jorge Brooks MD) Respiratory failure Tachycardia Myocardial injury Pneumonia TERRY (obstructive sleep apnea) Pulmonary nodules Hepatitis C HIV disease COPD (chronic obstructive pulmonary disease) Social History Household Members: Friend(s) Housing: House Do you presently have visiting nurse or other home services: No Comment: Sitter at bedside Patient Tobacco Use Status: Tobacco use Unknown Tobacco use type: Cigarette Cigarette Packs Per Day: 1 Cigarettes Per Day: 4 Years Smoked: 30 Years Substance Use Type: Unknown service: No Assessment & Plan Assessment & Plan (1) Opioid use disorder: Code(s): F11.90 - Opioid use, unspecified, uncomplicated Category: Medical Plan: continue suboxone at current dose follow up 5 weeks
--- OUTSIDE RECORDS SUMMARY | 2024-08-30 09:14 | XMS_ITS | Clinical Summary ---
Author Organization [facility], Address [address] [place] [address] [place] [address] Phone Care Team Providers Care Business Travel Consultant Name Role Phone Loreta Bhagat MD Primary Care Provider Allergies No known active allergies Medications aspirin (Aspirin Adult Low Strength) 81 MG EC tablet Take 81 mg by mouth 1 (one) time each day 0 Active atorvastatin (LIPITOR) 40 MG tablet 0 Active carvedilol (COREG) 6.25 MG tablet Take 6.25 mg by mouth in the morning and 6.25 mg in the evening. Take with meals. 0 Active Bictegravir-Emtr icitab-Tenofov 50-200-25 MG tablet Take 1 tablet by mouth 9 Active methadone (METHADOSE) 40 MG dispersible tablet Take 40 mg by mouth every 6 (six) hours if needed Active montelukast (SINGULAIR) 10 MG tablet Take 10 mg by mouth 0 Active Cholecalciferol 25 MCG (1000 UT) tablet dispersible Take 2 tablets by mouth 1 (one) time each day Active metoprolol succinate XL (TOPROL XL) 25 MG 24 hr tablet Take 25 mg by mouth 1 (one) time each day Do not crush or chew. Active oxyCODONE (OXY-IR) 5 MG immediate release capsule Take 5 mg by mouth every 6 (six) hours if needed for moderate pain Active polyethylene glycol (GLYCOLAX) 17 g packet Take 17 g by mouth 1 (one) time each day if needed Active epoetin kellen (EPOGEN,PROCRIT) 83971 UNIT/ML injectionIndicat ions:Anemia due to Renal Failure Inject 20,000 Units under the skin per week Active lamoTRIgine (LaMICtal) 25 MG tablet Take 25 mg by mouth in the morning and 25 mg in the evening. Active furosemide (LASIX) 40 MG tablet Take 20 mg by mouth 1 (one) time each day Active ferrous sulfate 325 (65 Fe) MG EC tablet Take 325 mg by mouth every other day Do not crush, chew, or split. Active Montelukast Sodium powder Take 4 mg by mouth 1 (one) time each day Active sevelamer (RENAGEL) 800 MG tablet Take 800 mg by mouth in the morning and 800 mg at noon and 800 mg in the evening. Take with meals. Swallow tablet whole; do not crush, break, or chew.. 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 Acute nontraumatic kidney injury 04/21/2020 Hyperkalemia 04/21/2020 Anemia 02/22/2014 Chronic obstructive pulmonary disease 10/25/2012 Overview (06/13/2020): Pneumonia x 2 hospitalized Chronic viral hepatitis C 10/25/2012 Human immunodeficiency virus infection 3 Overview (06/13/2020): longstanding untreated as of 01/13/18 Encounters Date Type Department Care Team Description 07/07/2024 4:00 PM EST Office Visit [facility], [address] [place] [address] Ruy Mack DO Chronic kidney disease, stage 4 (severe) (HCC) (Primary Dx); Chronic systolic heart failure (HCC); Other specified chronic obstructive pulmonary disease (HCC) 07/07/2024 Documentation Only [facility] [address] [place] [address] Ruy Mack DO 07/07/2024 Documentation Only [facility] [address] [place] [address] Ruy Mack DO from Last 3 Months Immunizations Name Administration Dates Next Due Hepatitis A 10/17/2012 Hepatitis B 10/26/2012 Pneumococcal Conjugate 13-Valent 12/08/2012 Tdap 12/08/2012 Family History Medical History Relation Comments Cancer Father Cancer Mother Diabetes Mother Cancer Sister Relation Status Comments Father Mother Sister Social History Tobacco Use Types Packs/Day Years Used Date Smoking Tobacco: Never Assessed Sex and Gender Information Value Date Recorded Sex Assigned at Not on file Legal Sex Male 8:22 AM EDT Gender Identity Not on file Sexual Orientation Not on file Last Filed Vital Signs Vital Sign Reading Time Taken Comments Blood Pressure 124/80 07/07/2024 4:24 PM EST Pulse 62 07/07/2024 4:24 PM EST Temperature - - Respiratory Rate - - Oxygen Saturation - - Inhaled Oxygen Concentration - - Weight - - Height - - Body Mass Index - - Plan of Treatment Upcoming Encounters Date Type Department Care Team (Late st Contact Info) Description 11/03/2024 2:45 PM EDT Office Visit [facility] [address] [place] [address] Ruy Mack DO [address] [place] [address] [place] [phone] Health Maintenance Due Date Last Done Comments Colorectal Cancer Screening: Annual FOBT 12/09/2008 Colorectal Cancer Screening: Colonoscopy 12/09/2008 Colorectal Cancer Screening: Sigmoidoscopy 12/09/2008 Hepatitis B Vaccine (1 of 3 - Risk 3-dose series) 2019 10/26/2012, 10/26/2012 Influenza Vaccine (#1) 2024 , 06/12/2015, 07/04/2014 Pneumococcal Vaccine: Pediat rics (0 to 5 Years) and At-Risk Patients (6 to 64 Years) (3 of 3 - PPSV23 or PCV20) 09/10/2026 09/10/2021, 12/08/2012 Insurance [facility] MEDICA[facility] Care Teams Business Travel Consultant Relationship Specialty Start Date End Date Loreta Bhagat MD PCP - General Internal Medicine 10/22/23
--- OUTSIDE RECORDS SUMMARY | 2024-08-30 09:14 | XMS_ITS | Encounter Summary ---
Author Organization [facility] Address [address] [place] [address] Phone Care Team Providers Care Security Patrol Officer Name Role Phone Loreta Bhagat MD Primary Care Provider [phone] Encounter Details Date Type Department Care Team (Late st Contact Info) Description 07/07/2024 Documentation Only [facility] [address] [place] [phone] Ruy Mack DO [address] [facility] [place] [phone] Social History Tobacco Use Types Packs/Day Years Used Date Smoking Tobacco: Never Assessed Sex and Gender Information Value Date Recorded Sex Assigned at Not on file Legal Sex Male 8:22 AM EDT Gender Identity Not on file Sexual Orientation Not on file documented as of this encounter Plan of Treatment Upcoming Encounters Date Type Department Care Team (Late st Contact Info) Description 11/03/2024 2:45 PM EDT Office Visit [facility] [address] [place] [address] Ruy Mack DO [address] [facility] [place] [address] documented as of this encounter Visit Diagnoses Not on filedocumented in this encounter Care Teams Security Patrol Officer Relationship Specialty Start Date End Date Loreta Bhagat MD PCP - General Internal Medicine 10/22/23 documented as of this encounter
--- OUTSIDE RECORDS SUMMARY | 2024-08-30 09:14 | XMS_ITS | Clinical Summary ---
Author Organization [facility] Address [address] [place] [address] Phone Care Team Providers Care Ophthalmic Surgeon Name Role Phone Loreta Bhagat MD Primary Care Provider Allergies No known active allergies Medications Medication Sig Dispensed Refills Start Date End Date Status abacavir (ZIAGEN) 20 mg/mL solution Take 30 mL by mouth daily. Active acetaminophen (TYLENOL) 500 mg tablet Take 2 Tablets by mouth every 8 hours as needed for Pain. 01/09/2024 Active albuterol HFA (PROAIR HFA ; PROVENTIL HFA ; VENTOLIN HFA) 90 mcg/actuation inhaler Inhale 2 Puffs into the lungs every 4 hours as needed for Cough. Insert SmartText 01/21/2022 Active ascorbic acid (VITAMIN C) 250 mg tablet 2 Tablets by Enteral route daily. 12/22/2023 Active aspirin 81 mg EC tablet Take 1 Tablet by mouth daily. 04/04/2020 Active bictegravir-emtricita bine-tenofovir alafenamide (Biktarvy) 50-200-25 mg per tablet Take 1 tablet by mouth daily. 01/19/2019 Active epoetin kellen-epbx (Retacrit) 20,000 unit/2 mL solution Inject 20,000 Units into the skin once a week. 01/10/2024 Active fluticasone propionate (FLONASE) 50 mcg/actuation nasal spray USE 2 SPRAYS IN EACH NOSTRIL TWICE A DAY FOR 1 WEEK THEN USE 1 SPRAY DAILY NEEDED 12/08/2022 Active lamiVUDine (EPIVIR) 100 mg tablet Take 1 Tablet by mouth daily. 01/09/2024 Active guaiFENesin (ROBITUSSIN) 100 mg/5 mL liquid Take 10 mL by mouth every 4 hours as needed for Cough. 01/09/2024 Active lamoTRIgine (LaMICtal) 25 mg tablet Take 1 Tablet by mouth 2 times daily. Active melatonin 3 mg tablet Take 3 Tablets by mouth at bedtime. Active metoprolol succinate (TOPROL-XL) 25 mg 24 hr tablet Take 1 Tablet by mouth daily. Active oxyCODONE (ROXICODONE) 5 mg immediate release tablet Take 1 Tablet by mouth every 6 hours as needed. Active pantoprazole (PROTONIX) 40 mg EC tablet Take 1 Tablet by mouth 2 times daily. 01/09/2024 Active polyethylene glycol (MIRALAX) 17 gram packet 1 Packet by Enteral route daily as needed. 12/21/2023 Active QUEtiapine (SEROquel) 100 mg tablet Take 1 Tablet by mouth at bedtime. Active tiotropium (Spiriva Respimat) 2.5 mcg/actuation inhalation spray Inhale 5 mcg into the lungs daily. 02/06/2023 Active torsemide (DEMADEX) 20 mg tablet Take 2 Tablets by mouth 2 times daily. 04/26/2024 Active cholecalciferol (VITAMIN D-3) 25 mcg (1,000 unit) tablet Take 2 Tablets by mouth daily. Active tiotropium (Spiriva with HandiHaler) 18 mcg per inhalation capsule Inhale 18 mcg into the lungs daily. Active SIMETHICONE-80 ORAL Take 1 Tablet by mouth every 6 hours as needed. Active Lactobacillus acidophilus (PROBIOTIC ORAL) Take 2 Capsules by mouth daily. Active Active Problems Problem Noted Date Diagnosed Date Polysubstance abuse 05/26/2024 Overview (05/26/2024): Heroin/ cocaine/ tobacco HFrEF (heart failure with reduced ejection fract ion) 04/24/2024 Overview (05/26/2024): Last Assessment & Plan: Patient was documented with a history of HFrEF with some regional wall motion abnormalities. He is not on guideline directed therapy at this time Paar the problem is I do not have a full set of records to see why the medical therapy that was instituted by [facility] heart failure clinic has not been reinstated. Some of it is in place of it is not. Our initial goal is to try to get him back on torsemide to reduce the lower extremity edema. Please begin a lab slip to get labs done in 1 week. Schedule an echocardiogram to reassess his EF so that we can make better decisions as to medical management. The goal is to get the echo can improve the edema and get him back so that we can try to reestablish guideline directed therapy. Stage 3a chronic kidney disease 04/24/2022 Dyspnea 10/29/2021 Overview (05/26/2024): Last Assessment & Plan: We did discuss his dyspnea. This is likely due to his lung disease. He states that he has pulmonary function test scheduled. I have encouraged him to keep this appointment. He may need to be on a daily inhaler. If his pulmonary function testing is unremarkable or his breathing is not improving then we will do a stress test on him. Essential tremor 09/29/2021 Overview (05/26/2024): Dr. Jacobsen Cardiomyopathy 09/16/2021 Overview (05/26/2024): Last Assessment & Plan: Patient with history of recovered LVEF of 55%. He denies cardiac symptoms. He is currently not on GDMT. He is abstaining from drugs and alcohol on methadone and I have applauded his efforts. We will continue to monitor his heart function periodically with echocardiograms. HTN (hypertension) 09/16/2021 Overview (05/26/2024): Last Assessment & Plan: Patient's blood pressure is acceptable at a reading of 130/80. I have reviewed with the patient the importance of a heart healthy lifestyle which includes eating a low-fat low-salt diet, getting regular exercise, maintaining a healthy weight, not smoking, and following up with routine medical care. AMBER (acute kidney injury) 04/21/2020 Community acquired pneumonia 04/21/2020 Hyperkalemia 04/21/2020 Lesion of lung 04/21/2020 NSTEMI (non-ST elevated myocardial infarction) 0 04/21/2020 Overview (05/26/2024): Last Assessment & Plan: Patient had a history of an NSTEMI with no significant obstructive coronary artery disease. Non-healing non-surgical wound 06/16/2018 Overview (05/26/2024): Chronic heal Pulmonary nodules 06/16/2018 Anemia 02/22/2014 Thalassemia minor 12/09/2012 Chronic hepatitis C 10/25/2012 HIV (human immunodeficiency virus infection) Overview (05/26/2024): longstanding untreated as of 01/13/18 Other emphysema 10/25/2012 Overview (05/26/2024): Pneumonia x 2 hospitalized Encounters Date Type Department Care Team Description 07/24/2024 Telephone [facility] [address] [place] [address] Cyndy Jama NP No Call No Show (1) (Letter sent.) from Last 3 Months Immunizations Name Administration Dates Next Due Hep A, Unspecified 10/17/2012 Hep B, Unspecified 10/26/2012 Influenza Quadravalent, MDCK , 0.5ml, preservative free (Flucelvax) 6mo and older 08/06/2021 Influenza trivalent, 0.5mL, preservative free (Fluarix; FluLaval; Fluzone) ages 6mo and older (Afluria) 3 years and older 06/12/2015,07/04/2014 Pneumococcal conjugate 13 va lent (Prevnar 13, PCV13) 2mo and older 12/08/2012 Pneumococcal polysaccharide 23 valent (Pneumovax 23) 2yo and older 09/10/2021 Tb Skin Test 11/29/2014,11/15/2013,02/07/2011 Tdap Tetanus diptheria acell ular pertussis (Boostrix; Adacel) 7yo and older 10/13/2022,12/08/2012 Zoster recombinant (Shingrix ) 19yo and older 05/20/2022,01/21/2022 Surgical History Surgery Date Site/Laterality Comments OTHER SURGICAL HISTORY PROCEDURE: TRACHEOSTOMY PLUG/STOP-CUFFLESS TRACH TUBE OTHER SURGICAL HISTORY PROCEDURE: VA EGD PERCUTANEOUS PLACEMENT GASTROSTOMY TUBE CATARACT EXTRACTION PROCEDURE: HISTORICAL CATARACT REMOVAL; COMMENT: bilateral OTHER SURGICAL HISTORY 2015 PROCEDURE: ---- OTHER ----; COMMENT: bronchoscopy Medical History Medical History Date Comments HIV (human immunodeficiency virus infection) (CMS/HCC) 10/25/2012 DX:HIV (human immunodeficien cy virus infection) (HCC) COPD (chronic obstructive pu lmonary disease) (CMS/HCC) 10/25/2012 DX:COPD (chronic obstructive pulmonary disease) (HCC) Chronic hepatitis C (CMS/HCC) 10/25/2012 DX :Chronic hepatitis C (HCC) Historical Medical DX 11/08/2012 DX:Family history of sickle cell anemia Family history of colon cancer 11/08/2012 D X:Family history of colon cancer Thalassemia minor 12/09/2012 DX:Thalassemia minor History of cocaine abuse (CMS/HCC) DX:History of cocaine abuse (HCC); COMMENT: u tox pos 01/18/14 at [facility] Polysubstance abuse ([facility]/HCC) DX :Polysubstance abuse (HCC); COMMENT: u tox pos 01/18/14 at [facility] Pulmonary nodules 06/16/2018 DX:Pulmonary n odules Non-healing non-surgical wound 06/16/2018 D X:Non-healing non-surgical wound; COMMENT: Chronic heal Anemia 02/22/2014 DX:Anemia Family History Medical History Relation Name Comments Colon cancer Father also, prostate ca Colon cancer Mother diabetes Breast cancer Sister 1 Relation Name Status Comments Brother Alive Daughter Alive Father Maternal Grandfather Maternal Grandmother Mother Paternal Grandfather Paternal Grandmother Sister 1 Alive Sister 2 Alive Sister 3 Alive Son Alive Social History Tobacco Use Types Packs/Day Years Used Date Smoking Tobacco: Every Day Cigarettes 0.3 50.1 Started: 08/09/1974 Smokeless Tobacco: Never Alcohol Use Standard Drinks/Week Comments No 0 (1 standard drink = 0.6 oz pur e alcohol) Sex and Gender Information Value Date Recorded Sex Assigned at Not on file Gender Identity Not on file Sexual Orientation Not on file Obstetrics History Last Filed Vital Signs Vital Sign Reading Time Taken Comments Blood Pressure 112/70 04/24/2024 1:35 PM EDT Sit ting R Arm Pulse 94 04/24/2024 1:35 PM EDT Temperature - - Respiratory Rate - - Oxygen Saturation 93% 03/10/2022 10:39 AM EDT HX of COPD Inhaled Oxygen Concentration - - Weight 63.5 kg (140 lb) 04/24/2024 1:35 PM EDT Height 172.7 cm (5' 8 ) 04/24/2024 1:35 PM EDT Body Mass Index 21.29 04/24/2024 1:35 PM EDT Plan of Treatment Health Maintenance Due Date Last Done Comments Meningococcal ACWY Vaccine (1 - Risk 2-dose series) 12/09/1961 MMR Vaccines (1 of 2 - Risk 2-dose series) 12/09/1977 Hepatitis B Vaccines (2 of 3 - Risk 3-dose series) 11/23/2012 10/26/2012 Hepatitis A Vaccines (2 of 2 - Risk 2-dose series) 04/19/2013 10/17/2012 RSV Immunization Patients 60+ Years Old (1 - Risk 60-74 years 1-dose series) 2019 Social Influencers of Health Screening 07/17/2022 Depression Screening 12/22/2023 12/21/2022 COVID-19 Vaccine ( season) 2024 2021, 08/06/2021, 01/10/2021, Additional history exists Influenza Vaccine (#1) 2024 , 06/12/2015, 07/04/2014 Colorectal Cancer Screening: Colonoscopy 07/18/2024 07/18/2014 Hypertension/CHF/CAD Annual BMP Blood Test 02/12/2025 02/13/2024 Pneumococcal Vaccine: Pediatrics (0 to 5 Years) and At-Risk Patients (6 to 64 Years) (3 of 3 - PPSV23 or PCV20) 09/10/2026 09/10/2021, 12/08/2012 Cholesterol Screening (Lipid Panel) 09/14/2028 09/14/2023 DTaP,Tdap,and Td Vaccines (3 - Td or Tdap) 10/13/2032 10/13/2022, 12/08/2012 Hepatitis C Screening Completed 08/15/2021 Zoster Vaccines Completed 05/20/2022, 01/21/2022 HIB Vaccines Aged Out No longer eligi ble based on patient's age to complete this topic HPV Vaccines Aged Out No longer eligi ble based on patient's age to complete this topic IPV Vaccines Aged Out No longer eligi ble based on patient's age to complete this topic RSV Immunization Patients Under 20 months Aged Out No longer eligible based on patient's age to complete this topic Varicella Vaccines Aged Out No longer eligible based on patient's age to complete this topic Procedures Procedure Name Priority Date/Time Associated Diagnosis Comments ANNUAL BMP BLOOD TEST Routine 02/13/2024 LIPID PANEL Routine 09/14/2023 DEPRESSION SCREENING Routine 12/21/2022 HEPATITIS C SCREENING Routine 08/15/2021 COLONOSCOPY Routine 07/18/2014 from Last 3 Months or Most Recently Relevant to Health Maintenance Results * Annual BMP Blood Test (02/13/2024) [facility] Annual BMP Blood Test Abstracted Historical Provider MD TAINA SHELL E * Lipid panel (09/14/2023) [facility] LDL/HDL Ratio 2 0 - 4 Triglycerides 66 0 - 150 mg/dL Cholesterol 113 0 - 200 mg/dL HDL 57 40 mg/dL LDL Cholesterol 43 0 - 100 mg/dL Blood Venous blood specimen / Unknown Historical Provider LAB BLOOD ORDERAB LES * Depression Screening (12/21/2022) [facility] Depression Screening Abstracted Historical Provider MD TAINA SHELL * Hepatitis C Screening (08/15/2021) [facility] Hepatitis C Screening Abstracted Historical Provider MD TAINA SHELL E * Colonoscopy (07/18/2014) [facility] Colonoscopy No interpretation with ,abstracted Anatomical Region Laterality Modality Other Historical Provider MD TAINA Peña from Last 3 Months or Most Recently Relevant to Health Maintenance Advance Directives Documents on File Type Date Recorded Patient Transformer Mechanic Expl anation Health Care Decision (hx) 11/13/2015 AD BAUGH DIRECTIVE Health Care Decision (hx) 11/13/2015 AD BAUGH DIRECTIVE Health Care Decision (hx) 11/13/2015 AD BAUGH DIRECTIVE Health Care Decision (hx) 11/13/2015 AD BAUGH DIRECTIVE Health Care Decision (hx) 11/13/2015 AD BAUGH DIRECTIVE Health Care Decision (hx) 11/13/2015 AD BAUGH DIRECTIVE Health Care Decision (hx) 11/13/2015 AD BAUGH DIRECTIVE Health Care Decision (hx) 11/13/2015 AD BAUGH DIRECTIVE Health Care Decision (hx) 11/13/2015 AD BAUGH DIRECTIVE Health Care Decision (hx) 11/13/2015 AD BAUGH DIRECTIVE Health Care Decision (hx) 11/13/2015 AD BAUGH DIRECTIVE Health Care Decision (hx) 11/03/2015 AD BAUGH DIRECTIVE Health Care Decision (hx) 11/03/2015 AD BAUGH DIRECTIVE Health Care Decision (hx) 11/03/2015 AD BAUGH DIRECTIVE Health Care Decision (hx) 11/03/2015 AD BAUGH DIRECTIVE Health Care Decision (hx) 11/03/2015 AD BAUGH DIRECTIVE Health Care Decision (hx) 11/03/2015 AD BAUGH DIRECTIVE Health Care Decision (hx) 11/03/2015 AD BAUGH DIRECTIVE Health Care Decision (hx) 11/03/2015 AD BAUGH DIRECTIVE Health Care Decision (hx) 11/03/2015 AD BAUGH DIRECTIVE Health Care Decision (hx) 11/03/2015 AD BAUGH DIRECTIVE Health Care Decision (hx) 11/03/2015 AD BAUGH DIRECTIVE Care Teams Ophthalmic Surgeon Relationship Specialty Start Date End Date Loreta Bhagat MD [address] [place] [id number] PCP - General Internal Medicine 09/01/21
--- OUTSIDE RECORDS SUMMARY | 2024-08-30 09:14 | XMS_ITS | Patient Health Record ---
Author Organization [facility] Address [address] [place], [place] [id number] Care Team Providers Care Automobile Damage Appraiser Name Role Phone No, PCP Primary Care Provider Humberto Lyon Unavailable [phone] Reason For Referral No Information Plan Of Treatment No Information Insurance Providers Payer Name Payer Address Payer Phone Subscriber Number Group Number Insured Name Patient Relationship to Insured Coverage Start Date Coverage End Date [facility] [address] [address] [place] [address] [id number] Earl Rincon Self - patient is the insured 2
--- OUTSIDE RECORDS SUMMARY | 2024-08-30 09:14 | XMS_ITS | Encounter Summary ---
Author Organization [facility] Address [address] [place] [address] Phone Care Team Providers Care Tin Recovery Worker Name Role Phone Loreta Bhagta MD Primary Care Provider [phone] Encounter Details Date Type Department Care Team (Late st Contact Info) Description 04/18/2024 Documentation Only [facility] [address] [place] [address] Angel HardingKELLIHER, [place] [address] [place] [id number] Social History Tobacco Use Types Packs/Day Years [...] Visit [facility] [address] [place] [address] Ruy Mack DO [address] [place] [address] documented as of this encounter Visit Diagnoses Not on filedocumented in this encounter Care Teams Tin Recovery Worker Relationship Specialty Start Date End Date Loreta Bhagat MD PCP - General Internal Medicine 10/22/23 documented as of this encounter
--- OUTSIDE RECORDS SUMMARY | 2024-08-30 09:14 | XMS_ITS ---
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 - ICD-10-CM) ACTIVE 12/29/2023 DELUSIONAL DISORDERS (F22 - ICD-10-CM) ACTIVE GENERALIZED ANXIETY DISORDER (F41.1 - ICD-10-CM) ACTIV E 12/29/2023 ESSENTIAL (PRIMARY) HYPERTENSION (I10 - ICD-10-CM) ACT PARAS 12/22/2023 CHRONIC KIDNEY DISEASE, STAG E 3 UNSPECIFIED (N18.30 - ICD-10-CM) ACTIVE 12/22/2023 DEPENDENCE ON RESPIRATOR [VE NTILATOR] STATUS (Z99.11 - ICD-10-CM) RESOLVED 11/26/2023 12/22/2023 ENCOUNTER FOR ATTENTION TO G ASTROSTOMY (Z43.1 - ICD-10-CM) ACTIVE 11/26/2023 ENCOUNTER FOR ATTENTION TO T RACHEOSTOMY (Z43.0 - ICD-10-CM) ACTIVE 11/26/2023 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 (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 - ICD-10-CM) ACTIVE 11/26/2023 UNSPECIFIED VIRAL HEPATITIS C WITHOUT HEPATIC COMA (B19.20 - ICD-10-CM) ACTIVE 11/26/2023 SOLITARY PULMONARY NODULE (R91.1 - ICD-10-CM) ACTIVE 11/26/2023 OBSTRUCTIVE SLEEP APNEA (DONNA LT) (PEDIATRIC) (G47.33 - ICD-10-CM) ACTIVE 11/26/2023 ANEMIA, UNSPECIFIED (D64.9 - ICD-10-CM) ACTIVE 0 11/26/2023 INFLUENZA DUE TO OTHER IDENT IFIED INFLUENZA VIRUS WITH OTHER RESPIRATORY MANIFESTATIONS (J10.1 - ICD-10-CM) ACTIVE 024 ANXIETY DISORDER, UNSPECIFIED (F41.9 - ICD-10-CM) ACTI VE 11/26/2023 ILEUS, UNSPECIFIED (K56.7 - ICD-10-CM) ACTIVE SEVERE SEPSIS WITH SEPTIC SHOCK (R65.21 - ICD-10-CM) A CTIVE 12/24/2023 CHRONIC PULMONARY EDEMA (J81.1 - ICD-10-CM) ACTIVE 12/24/2023 PNEUMONIA, UNSPECIFIED ORGANISM (J18.9 - ICD-10-CM) AC TIVE 12/23/2023 RESTLESSNESS AND AGITATION (R45.1 - ICD-10-CM) ACTIVE 12/24/2023 UNSPECIFIED ABDOMINAL PAIN (R10.9 - ICD-10-CM) ACTIVE 12/24/2023 Results * Comprehensive Metabolic Panel (CMP) Performed by: [facility] Component Value Range Date ALBUMIN 3.4 g/dL 3.2 - 5.2 03/06/2024 05:0 0 pm EDT ALK PHOS 205 U/L 40 - 130 03/06/2024 05:0 0 pm EDT CALCIUM 9.2 mg/dL 8.4 - 10.2 03/06/2024 05:0 0 pm EDT BUN 59 mg/dL 10 - 24 03/06/2024 05:0 0 pm EDT CREATININE 2.8 mg/dL 0.7 - 1.5 03/06/2024 05:0 0 pm EDT GLUCOSE 126 mg/dL 70 - 120 03/06/2024 05:0 0 pm EDT TOTAL PROTEIN 7.3 g/dL 6.4 - 8.3 03/06/2024 05: 00 pm EDT SODIUM 137 mmol/L 133 - 145 03/06/2024 05:0 0 pm EDT POTASSIUM 4.0 mmol/L 3.3 - 5.1 03/06/2024 05:0 0 pm EDT CHLORIDE 97 mmol/L 96 - 108 03/06/2024 05:0 0 pm EDT CO2 25 mmol/L 22 - 33 03/06/2024 05:0 0 pm EDT ALT (SGPT) 26 U/L 0 - 40 03/06/2024 05:0 0 pm EDT AST (SGOT) 32 U/L 0 - 37 03/06/2024 05:0 0 pm EDT BILIRUBIN TOTAL 0.3 mg/dL 0.0 - 1.2 03/06/2024 0 5:00 pm EDT GFR 23 60 - 120 03/06/2024 05:0 0 pm EDT * Complete Blood Count (CBC) w/Auto Differential Performed by: [facility] Component Value Range Date WBC 8.0 K/uL 4.8 - 10.8 03/06/2024 05:0 0 pm EDT RBC 4.22 M/uL 4.20 - 5.70 03/06/2024 05:0 0 pm EDT HGB 10.5 g/dL 13.5 - 17.5 03/06/2024 05:0 0 pm EDT HCT 33.2 % 40.0 - 50.0 03/06/2024 05:0 0 pm EDT MCV 78.6 fL 78.0 - 98.0 03/06/2024 05:0 0 pm EDT MCH 25.0 pg 26.0 - 34.0 03/06/2024 05:0 0 pm EDT MCHC 31.8 g/dL 30.0 - 37.0 03/06/2024 05:0 0 pm EDT RDW-SD 42.4 fL 37.0 - 51.0 03/06/2024 05:0 0 pm EDT RDW-CV 15.3 % 11.0 - 16.0 03/06/2024 05:0 0 pm EDT PLATELET COUNT 282.0 K/uL 150.0 - 400.0 03/06/2024 0 5:00 pm EDT MPV 7.7 fL 9.4 - 12.4 03/06/2024 05:0 0 pm EDT NEUTS 64.4 % 40.0 - 70.0 03/06/2024 05:0 0 pm EDT LYMPHS 20.10 % 20.00 - 40.00 03/06/2024 05: 00 pm EDT MONOS 10.60 % 3.00 - 12.00 03/06/2024 05:0 0 pm EDT EOS 4.60 % 0.00 - 5.00 03/06/2024 05:0 0 pm EDT BASO 0.30 % 0.00 - 2.00 03/06/2024 05:0 0 pm EDT ABS NEUTROPHILS 5.10 K/uL 1.80 - 7.70 03/06/2024 0 5:00 pm EDT ABS LYMPHOCYTES 1.60 K/uL 1.00 - 4.30 03/06/2024 0 5:00 pm EDT ABS MONOCYTES 0.80 K/uL 0.20 - 1.00 03/06/2024 05: 00 pm EDT ABS EOSINOPHILS 0.40 K/uL 0.02 - 0.50 03/06/2024 0 5:00 pm EDT ABS BASOPHILS 0.00 K/uL 0.02 - 0.10 03/06/2024 05: 00 pm EDT ABS NUCLEATED RBC 0.03 K/uL 03/06/2024 05:00 pm EDT Complete Blood Count (CBC) w/Auto Differential See Attachment 03/06/2024 05:00 pm EDT * Comprehensive Metabolic Panel (CMP) Performed by: [facility] Component Value Range Date ALBUMIN 3.5 g/dL 3.2 - 5.2 02/28/2024 11:0 1 pm EDT ALK PHOS 209 U/L 40 - 130 02/28/2024 11:0 1 pm EDT CALCIUM 9.4 mg/dL 8.4 - 10.2 02/28/2024 11:0 1 pm EDT BUN 58 mg/dL 10 - 24 02/28/2024 11:0 1 pm EDT CREATININE 2.6 mg/dL 0.7 - 1.5 02/28/2024 11:0 1 pm EDT GLUCOSE 90 mg/dL 70 - 120 02/28/2024 11:0 1 pm EDT TOTAL PROTEIN 7.8 g/dL 6.4 - 8.3 02/28/2024 11: 01 pm EDT SODIUM 139 mmol/L 133 - 145 02/28/2024 11:0 1 pm EDT POTASSIUM 4.6 mmol/L 3.3 - 5.1 02/28/2024 11:0 1 pm EDT CHLORIDE 99 mmol/L 96 - 108 02/28/2024 11:0 1 pm EDT CO2 25 mmol/L 22 - 33 02/28/2024 11:0 1 pm EDT ALT (SGPT) 21 U/L 0 - 40 02/28/2024 11:0 1 pm EDT AST (SGOT) 24 U/L 0 - 37 02/28/2024 11:0 1 pm EDT BILIRUBIN TOTAL 0.2 mg/dL 0.0 - 1.2 02/28/2024 1 1:01 pm EDT GFR 25 60 - 120 02/28/2024 11:0 1 pm EDT * Complete Blood Count (CBC) w/Auto Differential Performed by: [facility] Component Value Range Date WBC 6.9 K/uL 4.8 - 10.8 02/28/2024 11:0 1 pm EDT RBC 4.38 M/uL 4.20 - 5.70 02/28/2024 11:0 1 pm EDT HGB 10.9 g/dL 13.5 - 17.5 02/28/2024 11:0 1 pm EDT HCT 33.9 % 40.0 - 50.0 02/28/2024 11:0 1 pm EDT MCV 77.4 fL 78.0 - 98.0 02/28/2024 11:0 1 pm EDT MCH 24.9 pg 26.0 - 34.0 02/28/2024 11:0 1 pm EDT MCHC 32.2 g/dL 30.0 - 37.0 02/28/2024 11:0 1 pm EDT RDW-SD 41.6 fL 37.0 - 51.0 02/28/2024 11:0 1 pm EDT RDW-CV 15.2 % 11.0 - 16.0 02/28/2024 11:0 1 pm EDT PLATELET COUNT 348.0 K/uL 150.0 - 400.0 02/28/2024 1 1:01 pm EDT MPV 7.8 fL 9.4 - 12.4 02/28/2024 11:0 1 pm EDT NEUTS 57.2 % 40.0 - 70.0 02/28/2024 11:0 1 pm EDT LYMPHS 26.10 % 20.00 - 40.00 02/28/2024 11: 01 pm EDT MONOS 11.50 % 3.00 - 12.00 02/28/2024 11:0 1 pm EDT EOS 4.50 % 0.00 - 5.00 02/28/2024 11:0 1 pm EDT BASO 0.70 % 0.00 - 2.00 02/28/2024 11:0 1 pm EDT ABS NEUTROPHILS 3.90 K/uL 1.80 - 7.70 02/28/2024 1 1:01 pm EDT ABS LYMPHOCYTES 1.80 K/uL 1.00 - 4.30 02/28/2024 1 1:01 pm EDT ABS MONOCYTES 0.80 K/uL 0.20 - 1.00 02/28/2024 11: 01 pm EDT ABS EOSINOPHILS 0.30 K/uL 0.02 - 0.50 02/28/2024 1 1:01 pm EDT ABS BASOPHILS 0.00 K/uL 0.02 - 0.10 02/28/2024 11: 01 pm EDT ABS NUCLEATED RBC 0.01 K/uL 02/28/2024 11:01 pm EDT Complete Blood Count (CBC) w/Auto Differential See Attachment 02/28/2024 11:01 pm EDT * Comprehensive Metabolic Panel (CMP) Performed by: [facility] Component Value Range Date ALBUMIN 3.8 g/dL 3.2 - 5.2 02/21/2024 02:5 6 pm EDT ALK PHOS 212 U/L 40 - 130 02/21/2024 02:5 6 pm EDT CALCIUM 9.6 mg/dL 8.4 - 10.2 02/21/2024 02:5 6 pm EDT BUN 55 mg/dL 10 - 24 02/21/2024 02:5 6 pm EDT CREATININE 2.8 mg/dL 0.7 - 1.5 02/21/2024 02:5 6 pm EDT GLUCOSE 102 mg/dL 70 - 120 02/21/2024 02:5 6 pm EDT TOTAL PROTEIN 8.8 g/dL 6.4 - 8.3 02/21/2024 02: 56 pm EDT SODIUM 133 mmol/L 133 - 145 02/21/2024 02:5 6 pm EDT POTASSIUM 4.2 mmol/L 3.3 - 5.1 02/21/2024 02:5 6 pm EDT CHLORIDE 93 mmol/L 96 - 108 02/21/2024 02:5 6 pm EDT CO2 23 mmol/L 22 - 33 02/21/2024 02:5 6 pm EDT ALT (SGPT) 19 U/L 0 - 40 02/21/2024 02:5 6 pm EDT AST (SGOT) 25 U/L 0 - 37 02/21/2024 02:5 6 pm EDT BILIRUBIN TOTAL 0.5 mg/dL 0.0 - 1.2 02/21/2024 0 2:56 pm EDT GFR 23 60 - 120 02/21/2024 02:5 6 pm EDT * Complete Blood Count (CBC) w/Auto Differential Performed by: [facility] Component Value Range Date WBC 8.6 K/uL 4.8 - 10.8 02/21/2024 02:5 6 pm EDT RBC 4.79 M/uL 4.20 - 5.70 02/21/2024 02:5 6 pm EDT HGB 12.1 g/dL 13.5 - 17.5 02/21/2024 02:5 6 pm EDT HCT 38.2 % 40.0 - 50.0 02/21/2024 02:5 6 pm EDT MCV 79.8 fL 78.0 - 98.0 02/21/2024 02:5 6 pm EDT MCH 25.2 pg 26.0 - 34.0 02/21/2024 02:5 6 pm EDT MCHC 31.6 g/dL 30.0 - 37.0 02/21/2024 02:5 6 pm EDT RDW-SD 44.2 fL 37.0 - 51.0 02/21/2024 02:5 6 pm EDT RDW-CV 16.0 % 11.0 - 16.0 02/21/2024 02:5 6 pm EDT PLATELET COUNT 344.0 K/uL 150.0 - 400.0 02/21/2024 0 2:56 pm EDT MPV 8.0 fL 9.4 - 12.4 02/21/2024 02:5 6 pm EDT NEUTS 75.1 % 40.0 - 70.0 02/21/2024 02:5 6 pm EDT LYMPHS 11.90 % 20.00 - 40.00 02/21/2024 02: 56 pm EDT MONOS 9.60 % 3.00 - 12.00 02/21/2024 02:5 6 pm EDT EOS 2.80 % 0.00 - 5.00 02/21/2024 02:5 6 pm EDT BASO 0.60 % 0.00 - 2.00 02/21/2024 02:5 6 pm EDT ABS NEUTROPHILS 6.50 K/uL 1.80 - 7.70 02/21/2024 0 2:56 pm EDT ABS LYMPHOCYTES 1.00 K/uL 1.00 - 4.30 02/21/2024 0 2:56 pm EDT ABS MONOCYTES 0.80 K/uL 0.20 - 1.00 02/21/2024 02: 56 pm EDT ABS EOSINOPHILS 0.20 K/uL 0.02 - 0.50 02/21/2024 0 2:56 pm EDT ABS BASOPHILS 0.00 K/uL 0.02 - 0.10 02/21/2024 02: 56 pm EDT ABS NUCLEATED RBC 0.03 K/uL 02/21/2024 02:56 pm EDT * RBC Morphology Performed by: [facility] Component Value Range Date ANISOCYTOSIS 1 + 02/21/2024 02:5 6 pm EDT POIK 0 02/21/2024 02:5 6 pm EDT MACROCYTOSIS 0 02/21/2024 02:5 6 pm EDT MICROCYTOSIS 2 + 02/21/2024 02:5 6 pm EDT HYPOCHROMIA 0 02/21/2024 02:5 6 pm EDT POLY 0 02/21/2024 02:5 6 pm EDT ACANT 0 02/21/2024 02:5 6 pm EDT BSTIP 0 02/21/2024 02:5 6 pm EDT ECHI 0 02/21/2024 02:5 6 pm EDT ELIPT 0 02/21/2024 02:5 6 pm EDT OVAL 0 02/21/2024 02:5 6 pm EDT SCHIS 0 02/21/2024 02:5 6 pm EDT SPHER 0 02/21/2024 02:5 6 pm EDT STOMA 0 02/21/2024 02:5 6 pm EDT HELM 0 02/21/2024 02:5 6 pm EDT TEAR 0 02/21/2024 02:5 6 pm EDT TARG 0 02/21/2024 02:5 6 pm EDT HOWJB 0 02/21/2024 02:5 6 pm EDT PAPB 0 02/21/2024 02:5 6 pm EDT RBC Morphology See Attachment 02/21/2024 02:56 pm EDT * Complete Blood Count (CBC) w/Auto Differential Performed by: [facility] Component Value Range Date WBC 6.8 K/uL 4.8 - 10.8 02/15/2024 04:2 3 pm EDT RBC 4.20 M/uL 4.20 - 5.70 02/15/2024 04:2 3 pm EDT HGB 10.5 g/dL 13.5 - 17.5 02/15/2024 04:2 3 pm EDT HCT 33.0 % 40.0 - 50.0 02/15/2024 04:2 3 pm EDT MCV 78.7 fL 78.0 - 98.0 02/15/2024 04:2 3 pm EDT MCH 25.1 pg 26.0 - 34.0 02/15/2024 04:2 3 pm EDT MCHC 31.9 g/dL 30.0 - 37.0 02/15/2024 04:2 3 pm EDT RDW-SD 44.2 fL 37.0 - 51.0 02/15/2024 04:2 3 pm EDT RDW-CV 15.9 % 11.0 - 16.0 02/15/2024 04:2 3 pm EDT PLATELET COUNT 343.0 K/uL 150.0 - 400.0 02/15/2024 0 4:23 pm EDT MPV 7.5 fL 9.4 - 12.4 02/15/2024 04:2 3 pm EDT NEUTS 67.2 % 40.0 - 70.0 02/15/2024 04:2 3 pm EDT LYMPHS 18.90 % 20.00 - 40.00 02/15/2024 04: 23 pm EDT MONOS 9.90 % 3.00 - 12.00 02/15/2024 04:2 3 pm EDT EOS 3.50 % 0.00 - 5.00 02/15/2024 04:2 3 pm EDT BASO 0.50 % 0.00 - 2.00 02/15/2024 04:2 3 pm EDT ABS NEUTROPHILS 4.50 K/uL 1.80 - 7.70 02/15/2024 0 4:23 pm EDT ABS LYMPHOCYTES 1.30 K/uL 1.00 - 4.30 02/15/2024 0 4:23 pm EDT ABS MONOCYTES 0.70 K/uL 0.20 - 1.00 02/15/2024 04: 23 pm EDT ABS EOSINOPHILS 0.20 K/uL 0.02 - 0.50 02/15/2024 0 4:23 pm EDT ABS BASOPHILS 0.00 K/uL 0.02 - 0.10 02/15/2024 04: 23 pm EDT ABS NUCLEATED RBC 0.02 K/uL 02/15/2024 04:23 pm EDT Complete Blood Count (CBC) w/Auto Differential See Attachment 02/15/2024 04:23 pm EDT * Individual Tests: CALL BACK RESULTS / Comprehensive Metabolic Panel (CMP) / Complete Blood Count (CBC) w/Auto Differential / RBC Morphology Performed by: [facility] Component Value Range Date autoApproveHostCode Complete 01/31/20 04:50 pm EDT * Comprehensive Metabolic Panel (CMP) Performed by: [facility] Component Value Range Date ALBUMIN 3.7 g/dL 3.2 - 5.2 01/31/2024 04:5 0 pm EDT ALK PHOS 241 U/L 40 - 130 01/31/2024 04:5 0 pm EDT CALCIUM 9.4 mg/dL 8.4 - 10.2 01/31/2024 04:5 0 pm EDT BUN 72 mg/dL - 01/31/2024 04:5 0 pm EDT CREATININE 3.1 mg/dL 0.7 - 1.5 01/31/2024 04:5 0 pm EDT GLUCOSE 93 mg/dL 70 - 120 01/31/2024 04:5 0 pm EDT TOTAL PROTEIN 8.2 g/dL 6.4 - 8.3 01/31/2024 04: 50 pm EDT SODIUM 134 mmol/L 133 - 145 01/31/2024 04:5 0 pm EDT POTASSIUM 4.1 mmol/L 3.3 - 5.1 01/31/2024 04:5 0 pm EDT CHLORIDE 92 mmol/L 96 - 108 01/31/2024 04:5 0 pm EDT CO2 29 mmol/L 22 - 33 01/31/2024 04:5 0 pm EDT ALT (SGPT) 21 U/L 0 - 40 01/31/2024 04:5 0 pm EDT AST (SGOT) 26 U/L 0 - 37 01/31/2024 04:5 0 pm EDT BILIRUBIN TOTAL 0.3 mg/dL 0.0 - 1.2 01/31/2024 0 4:50 pm EDT GFR 20 60 - 120 01/31/2024 04:5 0 pm EDT * Complete Blood Count (CBC) w/Auto Differential Performed by: [facility] Component Value Range Date WBC 7.3 K/uL 4.8 - 10.8 01/31/2024 04:5 0 pm EDT RBC 3.48 M/uL 4.20 - 5.70 01/31/2024 04:5 0 pm EDT HGB 8.8 g/dL 13.5 - 17.5 01/31/2024 04:5 0 pm EDT HCT 27.9 % 40.0 - 50.0 01/31/2024 04:5 0 pm EDT MCV 80.2 fL 78.0 - 98.0 01/31/2024 04:5 0 pm EDT MCH 25.3 pg 26.0 - 34.0 01/31/2024 04:5 0 pm EDT MCHC 31.6 g/dL 30.0 - 37.0 01/31/2024 04:5 0 pm EDT RDW-SD 42.4 fL 37.0 - 51.0 01/31/2024 04:5 0 pm EDT RDW-CV 15.2 % 11.0 - 16.0 01/31/2024 04:5 0 pm EDT PLATELET COUNT 360.0 K/uL 150.0 - 400.0 01/31/2024 0 4:50 pm EDT MPV 7.3 fL 9.4 - 12.4 01/31/2024 04:5 0 pm EDT NEUTS 64.0 % 40.0 - 70.0 01/31/2024 04:5 0 pm EDT LYMPHS 19.30 % 20.00 - 40.00 01/31/2024 04: 50 pm EDT MONOS 11.80 % 3.00 - 12.00 01/31/2024 04:5 0 pm EDT EOS 4.60 % 0.00 - 5.00 01/31/2024 04:5 0 pm EDT BASO 0.30 % 0.00 - 2.00 01/31/2024 04:5 0 pm EDT ABS NEUTROPHILS 4.70 K/uL 1.80 - 7.70 01/31/2024 0 4:50 pm EDT ABS LYMPHOCYTES 1.40 K/uL 1.00 - 4.30 01/31/2024 0 4:50 pm EDT ABS MONOCYTES 0.90 K/uL 0.20 - 1.00 01/31/2024 04: 50 pm EDT ABS EOSINOPHILS 0.30 K/uL 0.02 - 0.50 01/31/2024 0 4:50 pm EDT ABS BASOPHILS 0.00 K/uL 0.02 - 0.10 01/31/2024 04: 50 pm EDT ABS NUCLEATED RBC 0.01 K/uL 01/31/2024 04:50 pm EDT * RBC Morphology Performed by: [facility] Component Value Range Date ANISOCYTOSIS 0 01/31/2024 04:5 0 pm EDT POIK 1 + 01/31/2024 04:5 0 pm EDT MACROCYTOSIS 0 01/31/2024 04:5 0 pm EDT MICROCYTOSIS 0 01/31/2024 04:5 0 pm EDT HYPOCHROMIA 1 + 01/31/2024 04:5 0 pm EDT POLY 0 01/31/2024 04:5 0 pm EDT ACANT 0 01/31/2024 04:5 0 pm EDT BSTIP 0 01/31/2024 04:5 0 pm EDT ECHI 0 01/31/2024 04:5 0 pm EDT ELIPT 0 01/31/2024 04:5 0 pm EDT OVAL 0 01/31/2024 04:5 0 pm EDT SCHIS 0 01/31/2024 04:5 0 pm EDT SPHER 0 01/31/2024 04:5 0 pm EDT STOMA 0 01/31/2024 04:5 0 pm EDT HELM 0 01/31/2024 04:5 0 pm EDT TEAR 1 + 01/31/2024 04:5 0 pm EDT TARG 0 01/31/2024 04:5 0 pm EDT HOWJB 0 01/31/2024 04:5 0 pm EDT PAPB 0 01/31/2024 04:5 0 pm EDT RBC Morphology See Attachment 01/31/2024 04:50 pm EDT * Human Immunodeficiency Virus 1 (HIV-1), Quantitative, Real-time PCR (Nongraphical) Performed by: [address] [facility] [id number] Component Value Range Date HIV-1 RNA by PCR <20 copies/mL 01/28/2024 10:05 pm EDT log10 HIV-1 RNA Test Not Performed. 01/27 10:05 pm EDT * Lima T-Lymphocyte Marker CD4 Performed by: [address] [facility] [id number] Component Value Range Date Absolute CD 4 Lima Test Not Performed. 01/28/2024 10:05 pm EDT % CD 4 Pos. Lymph. 22.8 % 30.8-58.5 10:05 pm EDT WBC 7.4 x10E3/uL 3.4-10.8 01/28/2024 10:0 5 pm EDT RBC 3.62 x10E6/uL 4.14-5.80 01/28/2024 10: 05 pm EDT Hemoglobin 8.9 g/dL 13.0-17.7 01/28/2024 10:0 5 pm EDT Hematocrit 30.5 % 37.5-51.0 01/28/2024 10:0 5 pm EDT MCV 84 fL 79-97 01/28/2024 10:0 5 pm EDT MCH 24.6 pg 26.6-33.0 01/28/2024 10:0 5 pm EDT MCHC 29.2 g/dL 31.5-35.7 01/28/2024 10:0 5 pm EDT RDW 13.6 % 11.6-15.4 01/28/2024 10:0 5 pm EDT Platelets 347 x10E3/uL 150-450 01/28/2024 10:0 5 pm EDT Neutrophils Test Not Performed. 01/28/20 10:05 pm EDT Lymphs Test Not Performed. 01/28/20 10:05 pm EDT Monocytes Test Not Performed. 01/28/20 10:05 pm EDT Eos Test Not Performed. 01/28/20 10:05 pm EDT Lymphs (Absolute) Test Not Performed. 10:05 pm EDT Eos (Absolute) Test Not Performed. 2023 10:05 pm EDT Baso (Absolute) Test Not Performed. 01/27 10:05 pm EDT Hematology Comments: Note: 024 10:05 pm EDT Lima T-Lymphocyte Marker CD4 See Attachment 01/28/2024 10:05 pm EDT * Basic Metabolic Panel Performed by: [facility] Component Value Range Date GLUCOSE 95 mg/dL 70 - 120 01/19/2024 05:2 4 pm EDT BUN 47 mg/dL 10 - 24 01/19/2024 05:2 4 pm EDT CREATININE 2.7 mg/dL 0.7 - 1.5 01/19/2024 05:2 4 pm EDT CALCIUM 9.4 mg/dL 8.4 - 10.2 01/19/2024 05:2 4 pm EDT SODIUM 134 mmol/L 133 - 145 01/19/2024 05:2 4 pm EDT POTASSIUM 5.1 mmol/L 3.3 - 5.1 01/19/2024 05:2 4 pm EDT CHLORIDE 100 mmol/L 96 - 108 01/19/2024 05:2 4 pm EDT CO2 19 mmol/L 22 - 33 01/19/2024 05:2 4 pm EDT GFR 23 60 - 120 01/19/2024 05:2 4 pm EDT * Complete Blood Count (CBC) w/Auto Differential Performed by: [facility] Component Value Range Date WBC 7.0 K/uL 4.8 - 10.8 01/19/2024 05:2 4 pm EDT RBC 3.17 M/uL 4.20 - 5.70 01/19/2024 05:2 4 pm EDT HGB 8.2 g/dL 13.5 - 17.5 01/19/2024 05:2 4 pm EDT HCT 26.1 % 40.0 - 50.0 01/19/2024 05:2 4 pm EDT MCV 82.6 fL 78.0 - 98.0 01/19/2024 05:2 4 pm EDT MCH 25.8 pg 26.0 - 34.0 01/19/2024 05:2 4 pm EDT MCHC 31.3 g/dL 30.0 - 37.0 01/19/2024 05:2 4 pm EDT RDW-SD 45.1 fL 37.0 - 51.0 01/19/2024 05:2 4 pm EDT RDW-CV 15.4 % 11.0 - 16.0 01/19/2024 05:2 4 pm EDT PLATELET COUNT 252.0 K/uL 150.0 - 400.0 01/19/2024 0 5:24 pm EDT MPV 7.8 fL 9.4 - 12.4 01/19/2024 05:2 4 pm EDT NEUTS 66.5 % 40.0 - 70.0 01/19/2024 05:2 4 pm EDT LYMPHS 17.80 % 20.00 - 40.00 01/19/2024 05: 24 pm EDT MONOS 9.50 % 3.00 - 12.00 01/19/2024 05:2 4 pm EDT EOS 5.10 % 0.00 - 5.00 01/19/2024 05:2 4 pm EDT BASO 1.10 % 0.00 - 2.00 01/19/2024 05:2 4 pm EDT ABS NEUTROPHILS 4.60 K/uL 1.80 - 7.70 01/19/2024 0 5:24 pm EDT ABS LYMPHOCYTES 1.20 K/uL 1.00 - 4.30 01/19/2024 0 5:24 pm EDT ABS MONOCYTES 0.70 K/uL 0.20 - 1.00 01/19/2024 05: 24 pm EDT ABS EOSINOPHILS 0.40 K/uL 0.02 - 0.50 01/19/2024 0 5:24 pm EDT ABS BASOPHILS 0.10 K/uL 0.02 - 0.10 01/19/2024 05: 24 pm EDT ABS NUCLEATED RBC 0.01 K/uL 01/19/2024 05:24 pm EDT * RBC Morphology Performed by: [facility] Component Value Range Date PLTMCT PLatelet count verif ied by smear estimation K/uL 150 - 400 01/19/2024 05:24 pm EDT POIK 1+ 01/19/2024 05:2 4 pm EDT MICROCYTOSIS 1+ 01/19/2024 05:2 4 pm EDT HYPOCHROMIA 1+ 01/19/2024 05:2 4 pm EDT TARG 1+ 01/19/2024 05:2 4 pm EDT RBC Morphology See Attachment 01/19/2024 05:24 pm EDT * Potassium, Serum Performed by: [facility] Component Value Range Date POTASSIUM 4.6 mmol/L 3.3 - 5.1 01/13/2024 02:1 2 pm EDT Potassium, Serum See Attachment 02:12 pm EDT * Individual Tests: Comprehensive Metabolic Panel (CMP) / Prealbumin / Complete Blood Count (CBC) w/Auto Differential / CALL BACK RESULTS Performed by: [place] Component Value Range Date PALB 30.1 mg/dL 16.0 - 40.0 12/31/2023 04:0 0 pm EDT autoApproveHostCode Complete 12/31/19 04:00 pm EDT * Comprehensive Metabolic Panel (CMP) Performed by: [place] Component Value Range ALBUMIN 2.9 g/dL 3.2 - 5.2 12/31/2023 04:0 0 pm EDT CALCIUM 9.3 mg/dL 8.4 - 10.2 12/31/2023 04:0 0 pm EDT BUN 217 mg/dL - 12/31/2023 04:0 0 pm EDT CREATININE 7.2 mg/dL 0.7 - 1.5 12/31/2023 04:0 0 pm EDT GLUCOSE 120 mg/dL 70 - 120 12/31/2023 04:0 0 pm EDT SODIUM 145 mmol/L 133 - 145 12/31/2023 04:0 0 pm EDT POTASSIUM 5.1 mmol/L 3.3 - 5.1 12/31/2023 04:0 0 pm EDT CHLORIDE 104 mmol/L 96 - 108 12/31/2023 04:0 0 pm EDT CO2 21 mmol/L 22 - 33 12/31/2023 04:0 0 pm EDT GFR 8 60 - 120 12/31/2023 04:0 0 pm EDT * Complete Blood Count (CBC) w/Auto Differential Performed by: [place] Component Value Range Date WBC 15.0 K/uL 4.8 - 10.8 12/31/2023 04:0 0 pm EDT RBC 2.04 M/uL 4.20 - 5.70 12/31/2023 04:0 0 pm EDT HGB 5.5 g/dL 13.5 - 17.5 12/31/2023 04:0 0 pm EDT HCT 17.1 % 40.0 - 50.0 12/31/2023 04:0 0 pm EDT MCV 83.9 fL 78.0 - 98.0 12/31/2023 04:0 0 pm EDT MCH 26.8 pg 26.0 - 34.0 12/31/2023 04:0 0 pm EDT MCHC 31.9 g/dL 30.0 - 37.0 12/31/2023 04:0 0 pm EDT RDW-SD 52.9 fL 37.0 - 51.0 12/31/2023 04:0 0 pm EDT RDW-CV 17.8 % 11.0 - 16.0 12/31/2023 04:0 0 pm EDT PLATELET COUNT 391.0 K/uL 150.0 - 400.0 12/31/2023 0 4:00 pm EDT MPV 8.0 fL 9.4 - 12.4 12/31/2023 04:0 0 pm EDT NEUTS 66.8 % 40.0 - 70.0 12/31/2023 04:0 0 pm EDT LYMPHS 18.40 % 20.00 - 40.00 12/31/2023 04: 00 pm EDT MONOS 7.80 % 3.00 - 12.00 12/31/2023 04:0 0 pm EDT EOS 5.60 % 0.00 - 5.00 12/31/2023 04:0 0 pm EDT BASO 1.40 % 0.00 - 2.00 12/31/2023 04:0 0 pm EDT ABS NEUTROPHILS 10.00 K/uL 1.80 - 7.70 12/31/2023 0 4:00 pm EDT ABS LYMPHOCYTES 2.80 K/uL 1.00 - 4.30 12/31/2023 0 4:00 pm EDT ABS MONOCYTES 1.20 K/uL 0.20 - 1.00 12/31/2023 04: 00 pm EDT ABS EOSINOPHILS 0.80 K/uL 0.02 - 0.50 12/31/2023 0 4:00 pm EDT ABS BASOPHILS 0.20 K/uL 0.02 - 0.10 12/31/2023 04: 00 pm EDT ABS NUCLEATED RBC 0.14 K/uL 12/31/2023 04:00 pm EDT Complete Blood Count (CBC) w/Auto Differential See Attachment 12/31/2023 04:00 pm EDT * XRAY CHEST 2 VIEW Performed by: [facility] Component Value Range Date XRAY CHEST 2 VIEW XRAY CHEST 2 VIEWSee NoteFINDINGS: Lungs: Right airspace opacities. Pulmonary vasculature is within normal limits. Diffuse increase in lung markings.Pleura: No pneumothorax. No pleural effusion. Heart and Mediastinum: The cardiomediastinal silhouette is prominent in size and contour. Tracheostomy.CONCLUSION: Right midchest airspace disease. Clinical correlation. Recommend follow up examination to confirm resolution of findings.ELECTRONICALLY SIGNED BY MAYO GONSALVES M.D. 01/13/2024 10:07:46 PM EDT.Reason for Study: R06.02 SHORTNESS OF BREATHPrincipal Result Horticulture Supervisor: MAYO GONSALVES ([phone])Service Cleaner: AFUA REYES ([email or web address])Travel Registered Nurse Oncology Service Cleaner: RENAE 01/13/2024 10:08 pm EDT * EKG W/ INTERPRETATION Performed by: [facility] Component Value Range Date EKG W/ INTERPRETATION EKG W/ INTERPRETAT IONSee NoteFINDINGS: sinus tachycardia old anteroseptal infarct pattern lateral t wave inversions. Abnormal ECG. Intervals: HR: 133 bpm WI: 120 ms QRS: 106 ms QT: 322 ms RR: 449 ms QTC: 481 ms Axes: P: 90 Deg QRS: -97 Deg T: -94 DegELECTRONICALLY SIGNED BY ELEONORA NICOLE [facility] 12/24/2023 4:15:59 PM EDT.Reason for Study: R00.0 TACHYCARDIA, UNSPECIFIEDPrincipal Result Horticulture Supervisor: ELEONORA NICOLE ([phone])Service Cleaner: DINH PORRAS)Travel Registered Nurse Oncology Service Cleaner: RENAE 12/24/2023 04:16 pm EDT Encounters Encounter Performer Performer Role Encounter Diagnoses Location Date Discharge - Discharged / Transferred to another hospital - [facility]* - Acute care [facility] 11/26/2023 07:51 pm EDT - 12/18/2023 12:00 am EDT Leave - [facility] ([facility] - [facility] 12/22/2023 04:15 pm EDT - 12/31/2023 03:30 pm EDT Discharge - Discharged to home or self care - *Home - Home [facility] 01/09/2024 04:21 pm EDT - 03/15/2024 01:00 pm EDT Reason For Referral Abnormal Hemoglobin or Hematocrit (low) Immunizations Vaccine Date Prevnar 13 12/08/2012 12:00 am EDT DTAP 10/13/2022 12:00 am EST [email or web address] 09/10/2021 12:00 am EST COVID-19 Vaccine Dose 1 12/04/2020 12:00 am EDT COVID-19 Vaccine Dose 2 01/10/2021 12:00 am EDT COVID-19 Vaccine Single Dose 08/25/2022 12:00 am EST COVID-19 Vaccine Single Dose 2021 12:00 am EDT COVID-19 Vaccine Single Dose 08/06/2021 12:00 am EST Social History
--- OUTSIDE RECORDS SUMMARY | 2024-08-30 09:14 | XMS_ITS | Continuity of Care Document ---
Author Organization [facility] Address [address] [place] [address] Phone Care Team Providers Care Recruiting Intern Name Role Phone Rosemary Sung NP Unavailable Unavailable Allergies, Adverse Reactions, Alerts Substance Reaction Status Criticality No Known Allergies Active No Inform ation Medications Medication Instructions Dosage Effective Dates (start - stop) Status Comments budesonide-formotero l HFA 160 mcg-4.5 mcg/actuation aerosol inhaler inhale 2 puff by inhalation route 2 times every day in the morning and evening 2.00 puff - Active albuterol sulfate HFA 90 mcg/actuation aerosol inhaler inhale 2 puff by inhalation route every 8 hr as needed - Active Spiriva Respimat 1.25 mcg/actuation solution for inhalation inhale 2 puff by inhalation route every day 2.5 MCG - Active aspirin 81 mg tablet,delayed release take 1 tablet by oral route every day 81 MG - Active Procedures Procedure Date OT EVAL LOW COMPLEX 30 MIN PT EVAL LOW COMPLEX 20 MIN OFFICE/OUTPATIENT VISIT EST MEDICAL NUTRITION INDIV IN Advance Directives Directive Yes / No Effective Date File Name No Information Encounters Encounter Description Practice Location Reason(s) For Visit Diagnoses Date Provider Providers Copied on Encounter [facility], [address] [facility] [address], [place], [place], [id number], [place] tel:[phone] [place] No Information Pineda Riley. [address] [place], [place], [id number] , [place]. tel:[phone] [facility], [address] [facility] [address], [place], [place], [id number], [place] tel:[phone] [place] No Information 5 Pineda Riley. [address] [place], [id number] , [place]. tel:[phone] [facility], [address] [facility] [address], [place], [place], [id number], [place] tel:[phone] [place] Encounter for rehabilitation evaluation 5 Karol William. [address] [place], [id number] , [place]. tel:[phone] [facility], [address] [facility], [place], [place], [id number], [place] tel:[phone] [place] Difficulty in walking, not elsewhere classifiedEncou nter for rehabilitation evaluation 5 Marcy Reyes. [address] [place], [id number]. tel:[phone] OFFICE/OUTPA TIENT VISIT EST [facility], [address] [facility] [address] [facility], [place], [place], [id number], [place] tel:[phone] [place] Post Enrollment Evaluation (chief complaint) Opioid dependence on agonist therapyEncephal omalacia with cerebral infarctionCereb rovascular diseaseHIV diseaseAcquired immunocompromis ed stateCentrilobu lar emphysemaChroni c respiratory failure with hypoxiaStatus post tracheostomyCKD (chronic kidney disease) stage 4, GFR 15-29 ml/minCoronary artery disease involving [place] coronary artery of [place] heart without angina pectorisHeart failure with reduced ejection fraction (HFrEF, <= 40%)Hypertensiv e heart and kidney disease with HF and with CKD stage IVGastroesophag eal reflux disease without esophagitisBeni gn prostatic hyperplasia with lower urinary tract symptoms, symptom details unspecifiedSeco ndary hyperparathyroi dism of renal originAnemia, unspecified typeChronic hepatitis B 5 Pineda Riley. [address] [place], [id number] , [place]. tel:[phone] [facility], [address] [facility] [address] [place] [address], [id number], [place] tel:[phone] [place] Encounter for nutritional assessmentAt risk for inadequate oral intakeIncreased nutritional needs 5 Normfernanda Barclay. [address] [place], [id number] , [place]. [phone] [facility], [address] [facility], [place], [place], [id number], [place] tel:[phone] [place] Opioid dependence, in remissionTrache ostomy status 5 Pineda Riley. [address] [place], [id number] , [place]. tel:[phone] [facility], [address], [id number], [place] tel:[phone] [place] No Information 4 Pineda Riley. [address] [place], [id number] , [place]. [phone] Family History Family Member Type Diagnosis Age At Onset No Information Immunizations Vaccine Date Status Comments Flu-IIV3,p-free administered Source: [facility] Payers Payer name Insurance type Covered alliance party ID Kingareanna tholiliya(s) [facility] 16 [id number] Social History Type Description Quantity Date Captured Comments Sex Male Smoking Status No Information Chief Complaint And Reason For Visit No Information Reason For Referral Reason For Referral No Information Plan Of Treatment Date Type Action Status Referral Ordered: [facility] -Pain Medicine (related to Opioid dependence in remission) ordered Referral Referred To: [facility] Ordered: Referrals: Pain Medicine. [facility]. Evaluate and treat ordered Referral Ordered: Referrals: Pulmonary Rehab. Evaluate and treat Appointment date/timeframe: 08/15/2024 ordered History Of Present Illness Encounter Date Complaint History Of Shlomo spencer Illness Post Enrollment Evaluation Ashley spencer is here for initial visit post enrollment.Patient is a 63-year-old gentleman with well-controlled HIV on HAART, h/o treated HCV with SVR, h/o polysubstance abuse on Seboxone, H/o of methadone use for 14 years), COPD/emphysema, CKD, CAD (prior admit with NSTEMS/ischemic cardiomyopathy due to drug use (under different MRN), HFrEF, prior admit for AMBER on CKD and 2 recent admits om 2023 to [facility] with sepsis, MSSA bacteremia, AMBER on CKD, c. difficie ?diarrhea/infection (not clear had colitis - no colitis on scanned imaging) then melena with concern for GIB HIV: under close monitoring of ID who follow him every 3 months. Earl was recently taken off a TAF containing regimen due to his AMBER on CKD and was started on renally dose adjusted Triumeq. TAF was given for chronic hepatitis B virus (HBV) infection with compensated liver disease. He continues with dolutegravir/lamivudine (renally adjusted). Appetite and energy are okay. weight is stable.COPD: O2 dependent due to chronic hypoxia, He is still smoking but knows he should quit. Gets very short of breath with minimal exertion, today here had sats 92% on RA after walking it but felt much better after resting. His baseline O2 88%. Has a trach site which is covered. Trace was considered when in admission in 01/2023 with acute hypoxic & hypercarbic respiratory failure / COPD exacerbation / (+) PCR for enterovirus-rhinovirus / metabolic encephalopathy, requiring intubation for airway protection and respiratory failure. Has VNA for trach/wound care.Admit to [facility] from 11/27-12/22/2023 with sepsis, MSSA bacteremia and treated for, per notes, c.difficile colitis with fidaxomicin (NO colitis on scanned CT a/p from 12/01 & 12/11 so likely c.diff diarrhea NOT colitis.) and HIV regimen changed to Abacavir, dolutegravir & rilpivirine with AMBER on CKD.Readmit to [facility] from 12/30-01/09/2024 with anemia (Hgb 5.5) and black tarry stools s/p RBC transfusion and EGD- showed nonbleeding gastritis, mild bleeding at the time esophageal ulcer and duodenitis. He was started on a PPI and rilpivirine was changed to lamivudine (with abacavir & dolutegravir).creatinine 2.44 estimated GFR 29, alk phos 249, AST 20, ALT 17, T. bili 0.2, nonreactive syphilis screen, HIV viral load less than 20 copies per mL, negative urine gonorrhea chlamydia, CD4 206/22%regarding vaccines - can get flu shot, COVID booster if not already given, RSV vaccine (if not already given) & can complete his pneumococcal vaccines with PCV20 or PPSV23 5 years after his last in 2021. His other vaccines are up to date.He is aware he should have in 6 months: CBC, CD4, HIV VL and yearly RPR, gc/chlamydia urine NAAT, HCV VLUnclear if had colonoscopy - sounds like at [facility] had EGD only (as both parents who are had colon cancer) - if not should be scheduled Functional Status Date Functional Assessmen t No Information Instructions Date Instruction Additional Infor ciera Used to be receiving TAF for treatment of chronic hepatitis B virus (HBV) infection with compensated liver disease. However due to AMBER on CKD he was switched to dolutegravir/lamivudine (renally adjusted). Liver enzymes stable, though indicating a mild degree of hepatic fibrosis Related to Chronic hepatitis B Multifactorial inclu ding GI bleed and presently with relatively low B12. Though lab shows improvement in Hgb now 12. Related to Anemia, unspecified type Secondary to CKD IV, with PTH 200 and ALK 149. Will add Vit D and obtain DEXA. Related to Secondary hyperparathyroidism of renal origin Has mild hesitancy a nd nocturia x3. PSA WNL. Alpha joshua not being considered since his BP runs low and his at high risk for fall. Related to Benign prostatic hyperplasia with lower urinary tract symptoms, symptom details unspecified None bleeding gastri tis, on pantoprazole with effectiveness Related to Gastroesophageal reflux disease without esophagitis BP at goal of < 140/ 90 with diuretics. Euvolemic. On Torsemide 20mg Related to Hypertensive heart and kidney disease with HF and with CKD stage IV man with reduced eje ction fraction s/t non-ischemic cardiomyopathy of unknown etiology. Echo : The left ventricular size is normal. Left ventricular wall thickness is normal. The LV systolic function is severely reduced . The left ventricular ejection fraction is 20-25 %. The basal two thirds of the LV are severely hypokinetic to akinetic with some sparing of the LV apex. The right ventricular size and function appears grossly normal.Currently with reassuring BNP level, euvolemic, BP at goal with diuretics. On Torsemide 20mg Related to Heart failure with reduced ejection fraction (HFrEF, <= 40%) prior admit with NST EMS/ischemic cardiomyopathy due to drug use (under different [facility]). Diagnostic cardiac cath 01/25/2023: moderate non-obstructive coronary disease. Denies angina. On ASA. Related to Coronary artery disease involving [place] coronary artery of [place] heart without angina pectoris With baseline eGFR 2 6-30, Cr. 2.2. No electrolytes abnormalities. BP at goal. Continue with Torsemide 20mg daily (decreased dose today since BP is low and looks hypovolemic) Related to CKD (chronic kidney disease) stage 4, GFR 15-29 ml/min Due to COPD/emphysem a. CT chest 2022: Moderate centrilobular and paraseptal emphysema in the background lung parenchyma. There is scarring in both lung apices. Currently stable on steroid based bronchodilators. O2 dependent due to chronic hypoxia, He is still smoking. Related to Chronic respiratory failure with hypoxia CT chest 2022: Moder ate centrilobular and paraseptal emphysema in the background lung parenchyma. There is scarring in both lung apices. Currently stable on steroid based bronchodilators. O2 dependent due to chronic hypoxia, He is still smoking. Related to Centrilobular emphysema Due to HIV. Although viral load has been WNL throughout the year, he ended up with multiple bacterial infections and sepsis in the past year. Currently under close monitoring by ID. Related to Acquired immunocompromised state For more than 10 yea rs. Has been successfully maintained on antiviral medications by ID who closely follows him. was recently taken off a TAF containing regimen due to his AMBER on CKD and was started on renally dose adjusted Triumeq. TAF was given for chronic hepatitis B virus (HBV) infection with compensated liver disease. He continues with dolutegravir/lamivudine (renally adjusted). Appetite and energy are okay. weight is stable. Related to HIV disease CT head 2022: small foci of encephalomalacia in the left parietal lobe + moderately severe microangiopathy most prominent in parietal lobe. He is symptomatic with visual perception deficit, confuses left and right and has optic ataxia. Related to Cerebrovascular disease CT head 2022: small foci of encephalomalacia in the left parietal lobe + moderately severe microangiopathy most prominent in parietal lobe. He is symptomatic with visual perception deficit, confuses left and right and has optic ataxia. Related to Encephalomalacia with cerebral infarction H/o polysubstance ab use, recently was switched to Seboxone that will be prescribed by the pain clinic, previously on Methadone for 14 years Related to Opioid dependence on agonist therapy Assessments Type Assessment Date No Information Patient Care Teams Name Effective Dates (start - stop) Status Members No Information
--- OUTSIDE RECORDS SUMMARY | 2024-08-30 09:14 | XMS_ITS | Encounter Summary ---
Author Organization [facility] Address [address] [place] [address] Phone Care Team Providers Care Certified Nursing Attendant Name Role Phone Loreta Bhagat MD Primary Care Provider [phone] Encounter Details Date Type Department Care Team (Late st Contact Info) Description 07/07/2024 Documentation Only [facility] [address] [place] [id number] Ruy Mack DO [address] [place] [id number] Social History Tobacco Use Types Packs/Day Years [...] Visit [facility] [address] [place] [address] Ruy Mack DO [address] [place] [address] documented as of this encounter Visit Diagnoses Not on filedocumented in this encounter Care Teams Certified Nursing Attendant Relationship Specialty Start Date End Date Loreta Bhagat MD PCP - General Internal Medicine 10/22/23 documented as of this encounter
== END 2024-08-30 10:44 | disposition home or self-care (01) ==
PROVIDERS: PCP Internal Medicine; Visit Provider Nurse Practitioner Psychiatric/Mental Health
DX: F11.90 Opioid use, unspecified, uncomplicated (principal)
CPT/HCPCS: 98012

== ENCOUNTER 2024-09-12 14:42 | Observation (INO) | payer MEDICARE, SELFPAY ==
[2024-09-12] VITALS (8 sets, daily range): BP systolic 97–172; BP diastolic 54–116; PULSE 87–102; RESP 12–22; TEMP 36.7–37.2; O2SAT 91–99; BMI 20.6
--- NOTE | ~2024-09-12 | CT_ITS ---
CLINICAL HISTORY: ? Multifocal pneumonia CT chest with contrast Comparison: CR/SR - XR CHEST 2V - 09/12/24 15:[address]/NV/SR - CT CHEST WO IV CON - 06/23/24 14:30 EST CR/SR - XR CHEST 1V - 03/28/24 05:00 EDT Findings: Normal heart size. No pericardial effusion. Thyroid gland is within normal limits. Few subcentimeter right lower paratracheal, subcarinal and right hilar lymph nodes. Emphysema. Patulous upper trachea. There is bronchiolar wall thickening. Previously noted endobronchial nodularities have resolved. Peripheral opacities in the left upper lobe, posterior lower lobes and posterior right upper lobe are similar to the prior CT. These could be areas of scarring however neoplasm can not be entirely excluded. Trace right pleural effusion with peripheral rind, similar to prior. No acute findings in the visualized upper abdomen. Bilateral cysts. The bones are intact. IMPRESSION: 1. No acute intrathoracic findings. 2. Stable peripheral opacities in the left upper lobe, posterior lower lobes and posterior right upper lobe, may represent scarring however neoplasm can not be excluded. Consider PET-CT for further evaluation. 3. Stable trace right pleural effusion with peripheral rind. 4. Emphysema and bronchiolar wall thickening. Previously noted endobronchial nodularities have resolved. This document has been electronically signed by: Tanvi Moran MD on 09/12/2024 18:24:35
--- NOTE | ~2024-09-12 | XR_ITS ---
EXAMINATION: XR CHEST CLINICAL INFORMATION: dyspnea COMPARISON: November 27, 2023 TECHNIQUE: 2 views of the chest were obtained. FINDINGS: Hyperinflated lungs. Pulmonary reticular nodular pattern. Patchy opacities in the right mid hemithorax and left upper hemithorax. Blunting of the costophrenic angles bilaterally. Meniscal shaped opacity right lower hemithorax. No pneumothorax. Heart silhouette appears normal in size. Multilevel thoracic spondylosis. Osteopenia versus osteoporosis. Left humeral head overlaps the left glenoid of the scapula. XR/XR chest 2V IMPRESSION: Chronic interstitial lung disease with the multifocal pneumonia versus pulmonary edema and bilateral pleural effusions, moderate volume right greater than left. Abnormal left glenohumeral joint no fully included in the exam. Electronically signed by: Bobby Gifford MD 09/12/2024 03:51 PM [facility]
--- NOTE | 2024-09-12 15:14 | ED_ITS ---
HPI - General Adult General Chief complaint: Dyspnea Stated complaint: SOB,HIGH BP 172/116,DUONEB/SOLUMEDROL G Time Seen by Provider: 09/12/24 15:00 History of Present Illness ED Provider: Dr. Racehl HPI narrative: 63 y/o M patient; PMH CKD, COPD, HIV on HAART therapy, nonischemic cardiomyopathy, HFrEF, TERRY, history hepatitis C, mood disorder, hx cocaine and heroin abuse in remission; presents from home via EMS with report of 1 - 2 days of worsening shortness of breath. Associated with a dry non-productive cough. EMS provided NEB x2 and Solu-Medrol 125mg IV. Patient otherwise denies: fever or chills, chest pain, abdominal pain, nausea/vomiting/diarrhea, syncope. Patient reports numerous prior intubations for respiratory distress. Most recently 10/2023 - had trach and PEG placed, critical illness myopathy, ileus, acute renal insufficiency, septic shock. Related Data Home Medications ?Medication ?Instructions ?Recorded ?Confirmed albuterol sulfate 90 mcg/actuation 2 puff inhalation Q4H PRN Wheezing 03/28/24 09/12/24 aerosol inhaler ascorbic acid (vitamin C) 500 mg 500 mg PO DAILY 03/28/24 09/12/24 tablet (Vitamin C) aspirin 81 mg tablet,delayed 81 mg PO DAILY 03/28/24 09/12/24 release cholecalciferol (vitamin D3) 25 50 mcg PO DAILY 03/28/24 09/12/24 mcg (1,000 unit) tablet (Vitamin D3) dolutegravir 50 mg tablet (Tivicay) 50 mg PO DAILY 03/28/24 09/12/24 lamivudine 100 mg tablet 100 mg PO DAILY 03/28/24 09/12/24 lamotrigine 25 mg tablet 25 mg PO Q48H 03/28/24 09/12/24 pantoprazole 40 mg tablet,delayed 40 mg PO DAILY@0630 03/28/24 09/12/24 release torsemide 40 mg tablet 40 mg PO BID 03/28/24 09/12/24 Oxygen Home Use 06/05/24 Previous Rx's ?Medication ?Instructions ?Recorded budesonide-formoterol HFA 160 2 puff inhalation BID 30 days 05/04/24 mcg-4.5 mcg/actuation aerosol #10.2 grams inhaler (Symbicort) buprenorphine 12 mg-naloxone 3 mg 1 film buccal Q24H #30 ea 09/11/24 sublingual film (Suboxone) Allergies Allergy/AdvReac Type Severity Reaction Status Date / Time No Known Allergies Allergy Unverified 09/12/24 15:02 Review of Systems 2 Review of Systems: Yes all other systems are reviewed and are negative [facility] Past Medical History Attestation statement: The following information was validated with the patient. Source: old records reviewed Medical History Respiratory failure Tachycardia Myocardial injury Pneumonia TERRY (obstructive sleep apnea) Pulmonary nodules Hepatitis C HIV disease COPD (chronic obstructive pulmonary disease) Social History Social History Household Members: Friend(s) Housing: House Do you presently have visiting nurse or other home services: No Alcohol intake: former Comment: Sitter at bedside Patient Tobacco Use Status: Tobacco use Unknown Tobacco use type: Cigarette Cigarette Packs Per Day: 1 Cigarettes Per Day: 4 Years Smoked: 30 Years Smoked in Last 30 Days: Yes Use of substances other than those prescribed or required for medical reasons: Yes Substance Use Type: Marijuana Advance Directives: No Advance Directives Information Provided: Yes service: No Physical Exam ED Vital Signs: Vital Signs - 24 hr 09/12/24 14:58 09/12/24 15:54 09/12/24 18:35 Temperature 98.5 F 98.9 F Pulse Rate 91 101 H 96 Respiratory Rate 18 22 H 18 Blood Pressure 115/84 133/81 Pulse Oximetry 97 98 Oxygen Delivery Method Nasal Cannula Room Air BMI result Body Mass Index 20.6 Patient is afebrile and hemodynamically stable. Const General: cooperative and no acute distress HENMT Head: Yes normal to inspection and Yes atraumatic Eyes General: appearance normal, both eyes and all related structures Pupils: Equal, round and reactive pupils present EOM: EOMs intact bilaterally Neck Neck: Yes normal visual inspection, Yes full ROM, Yes supple and No tender Chest Chest palpation & inspection: normal inspection of the chest and normal palpation of entire chest wall Resp Other: Diffuse end-expiratory wheezing bilaterally Effort & Inspection: normal respiratory effort, able to speak in complete sentences, Actively coughing and no respiratory distress Cardio Rate: regular rate Rhythm: regular rhythm Peripheral pulses: Peripheral pulses 2+ throughout GI Inspection: Yes normal to inspection, No Abdominal wall edema and No distended Palpation (GI): Soft to palpation, not firm, nontender, no guarding and not rigid Auscultation: normal bowel sounds Back/Spine/Pelvis Back: No back tenderness Neuro Cranial nerves: Yes Equal, round and reactive pupils present Course Course Course Narrative: Patient is afebrile and hemodynamically stable. Will obtain CXR, EKG, respiratory swab. Providing Azithromycin 500mg PO and placed on ED bronchodilator protocol. CXR noted concern for multifocal pneumonia versus pulmonary edema with bilateral pleural effusions. Will obtain blood cultures, lactic acid, VBG. Added Ceftriaxone IV. COVID/Flu/RSV negative. Labs reviewed. No leukocytosis. Baseline anemia 11.0. Baseline mild thrombocytopenia. Baseline CKD with Cr 2.16. CT notable for stable peripheral opacities in the POLA, posterior lower lobes, and posterior RUL with concern for scarring versus neoplasm. Recommended for PET-CT scan. Plan: Admit to hospitalist for COPD exacerbation and acute hypoxic respiratory distress Condition: Stable Medications Administered Discontinued Medications Generic Name Dose Route Start Last Admin Trade Name Freq PRN Reason Stop Dose Admin Azithromycin 500 mg 09/12/24 16:04 09/12/24 17:58 Azithromycin 500 Mg Tablet PO 09/12/24 16:05 500 mg ONCE ONE Administration Ceftriaxone Sodium 1 gm 09/12/24 16:04 09/12/24 17:58 Ceftriaxone Sodium 1 Gm Vial IVPUSH 09/12/24 16:05 1 gm ONCE ONE Administration Albuterol Sulfate 5 mg/ 0 mg 09/12/24 15:49 09/12/24 15:53 Albuterol/Ipratropium 3 ml INHALE 09/12/24 15:50 1 each ONCE ONE Administration Iohexol 100 ml 09/12/24 17:44 09/12/24 17:45 Iohexol 350 Mg/Ml 100 Ml Infus..Btl IV 09/12/24 17:45 65 ml ONCE ONE Administration Medical Decision Making Lab Data 09/12/24 16:41 09/12/24 16:41 Labs: Lab Results 09/12/24 09/12/24 09/12/24 Range/Units 15:24 16:41 18:40 WBC 6.9 (4.8-10.8) X10*3/uL RBC 4.88 (4.60-5.80) X10*6/uL Hgb 11.0 L (14.0-18.0) g/dl Hct 34.7 L (42.0-52.0) % MCV 71.1 L (80.0-98.0) fL MCH 22.5 L (27.0-33.0) pg MCHC 31.7 (31.0-36.0) g/dl RDW 14.3 (11.0-16.0) % Plt Count 158 L (160-400) X10*3/uL MPV 10.4 (9.4-12.4) fL Immature Gran % (Auto) 0.4 (0.0-0.4) % Neut % (Auto) 74.1 H (45-73) % Lymph % (Auto) 19.3 L (20-40) % Brantley % (Auto) 5.2 (2-11) % Eos % (Auto) 0.7 (0-4) % Baso % (Auto) 0.3 (0-2) % Lymph # (Auto) 1.3 (1.2-4.9) X10*3/uL Brantley # (Auto) 0.4 (0.1-1.2) X10*3/uL Eos # (Auto) 0.1 (0.0-0.4) X10*3/uL Baso # (Auto) 0.0 (0.0-0.2) X10*3/uL Abs Immat Gran (auto) 0.03 (0.00-0.03) X10*3/uL Absolute Neuts (auto) 5.1 (2.0-8.3) x10*3/uL Absolute Nucleated RBC 0.000 (0.0-0.012) X10*3/uL Nucleated RBC % (auto) 0.0 (0.0-0.2) /100WBC VBG pH 7.27 L (7.32-7.43) VBG pCO2 52 mmHg VBG pO2 31 mmHg VBG HCO3 24 (22-26) mmol/L VBG O2 Saturation 32.0 % VBG Base Excess -2.5 mmol/L Sodium 140 (135-145) mmol/L Potassium 4.3 (3.3-5.1) mmol/L Chloride 106 (96-108) mmol/L Carbon Dioxide 23 (22-29) mmol/L Anion Gap 15 (12-20) BUN 34 H (9-16) mg/dL Creatinine 2.16 H (0.5-1.4) mg/dL Estim Creat Clear Calc 30.9 Estimated GFR 31 Random Glucose 154 H (60-115) mg/dL Lactic Acid 1.7 (0.5-2.0) mmol/L Calcium 8.8 D (8.4-10.2) mg/dL Influenza Type A (PCR) NEGATIVE (Negative) Influenza Type B (PCR) NEGATIVE (Negative) RSV RNA Qual (PCR) NEGATIVE (Negative) SARS-CoV-2 RNA (RT-PCR) NEGATIVE (Negative) Independent Interpretation I performed an independent interpretation of an: EKG Interpretation: ST 100BPM with SD 218 with normal QTc Radiology Impression Discussion of test interpretation with radiology: I have reviewed the radiologist's reading. Radiologist Impression: EXAMINATION: XR CHEST CLINICAL INFORMATION: dyspnea COMPARISON: November 27, 2023 TECHNIQUE: 2 views of the chest were obtained. FINDINGS: Hyperinflated lungs. Pulmonary reticular nodular pattern. Patchy opacities in the right mid hemithorax and left upper hemithorax. Blunting of the costophrenic angles bilaterally. Meniscal shaped opacity right lower hemithorax. No pneumothorax. Heart silhouette appears normal in size. Multilevel thoracic spondylosis. Osteopenia versus osteoporosis. Left humeral head overlaps the left glenoid of the scapula. XR/XR chest 2V IMPRESSION: Chronic interstitial lung disease with the multifocal pneumonia versus pulmonary edema and bilateral pleural effusions, moderate volume right greater than left. Abnormal left glenohumeral joint no fully included in the exam. Electronically signed by: Bobby Gifford MD 09/12/2024 03:[address] chest with contrast Comparison: CR/SR - XR CHEST 2V - 09/12/24 15:[address]/SD/SR - CT CHEST WO IV CON - 06/23/24 14:30 EST CR/SR - XR CHEST 1V - 03/28/24 05:00 EDT Findings: Normal heart size. No pericardial effusion. Thyroid gland is within normal limits. Few subcentimeter right lower paratracheal, subcarinal and right hilar lymph nodes. Emphysema. Patulous upper trachea. There is bronchiolar wall thickening. Previously noted endobronchial nodularities have resolved. Peripheral opacities in the left upper lobe, posterior lower lobes and posterior right upper lobe are similar to the prior CT. These could be areas of scarring however neoplasm can not be entirely excluded. Trace right pleural effusion with peripheral rind, similar to prior. No acute findings in the visualized upper abdomen. Bilateral cysts. The bones are intact. IMPRESSION: 1. No acute intrathoracic findings. 2. Stable peripheral opacities in the left upper lobe, posterior lower lobes and posterior right upper lobe, may represent scarring however neoplasm can not be excluded. Consider PET-CT for further evaluation. 3. Stable trace right pleural effusion with peripheral rind. 4. Emphysema and bronchiolar wall thickening. Previously noted endobronchial nodularities have resolved. This document has been electronically signed by: Tanvi Moran MD on 09/12/2024 18:24:35 Discharge Plan Discharge Clinical Impression: Acute hypoxic respiratory failure COPD (chronic obstructive pulmonary disease) Qualifiers: COPD type: chronic bronchitis Chronic bronchitis type: mucopurulent Qualified Code(s): J41.1 - Mucopurulent chronic bronchitis Patient Disposition: Admitted As Inpatient
--- NOTE | 2024-09-12 15:29 | ECG_ITS ---
Test Reason : SOB Blood Pressure : */* mmHG Vent. Rate : 100 BPM Atrial Rate : 100 BPM P-R Int : 218 ms QRS Dur : 64 ms QT Int : 338 ms P-R-T Axes : 82 14 71 degrees QTcB Int : 436 ms Sinus rhythm with 1st degree A-V block with occasional Premature ventricular complexes Anteroseptal infarct (cited on or before 12-Jan-2014) Abnormal ECG When compared with ECG of 12-Apr-2024 09:14, Premature ventricular complexes are now Present Referred By: Shaunna Rachel Electronically Signed By: Homar Nash
--- OUTSIDE RECORDS SUMMARY | 2024-09-12 15:48 | XMS_ITS | Encounter Summary ---
Author Organization [facility] Address [address] [place] [address] Care Team Providers Care Licensing Specialist Name Role Phone Stephan Mejia MD Unavailable Unavailable Loreta Bhagat MD Primary Care Provider [phone] Cyndy Jama NP Unavailable [phone] Jose Delgado MD Unavailable [phone] Reason for Visit * Reason Onset Date Comments Medication 07/28/2022 Encounter Details Date Type Department Care Team Description 07/28/2022 Refill Gastroenterology - [place] [address] [place] [address] Roxanne Joseph MD Medication Social History Tobacco Use Types Packs/Day Years Used Date Smoking Tobacco: Every Day Cigarettes 0.3 43 Started: 08/09/1975 Smokeless Tobacco: Never Comments:smokes 5-6 cigarett es daily Alcohol Use Standard Drinks/Week Comments No 0 (1 standard drink = 0.6 oz pur e alcohol) Last drink 1 year. Alcohol Habits Answer Date Recorded How often do you have a drink containing alcohol ? Never 10/10/2019 How many drinks containing a lcohol do you have on a typical day when you are drinking? Not asked How often do you have six or more drinks on one occasion? Not asked Sex Assigned at Date Recorded Not on file Job Start Date Occupation Industry Not on file Not on file Not on file COVID-19 Exposure Response Date Recorded In the last 10 days, have yo u been in contact with someone who was confirmed or suspected to have Coronavirus/COVID-19? No / Unsure 07/24/2022 2:46 PM EST documented as of this encounter Plan of Treatment Not on file documented as of this encounter Visit Diagnoses Not on filedocumented in this encounter Care Teams Licensing Specialist Relationship Specialty Start Date End Date Loreta Bhagat MD [address] [place] [address] PCP - General Internal Medicine 09/01/21 Stephan Mejia MD Wet Machine Cutter Cardiovascular Disease 07/30/21 4 Cyndy Jama NP [address] [place] [address] Nurse Practitioner Cardiology 07/23/22 Jose Delgado MD [address] [place] [address] [place] [address] Wet Machine Cutter Cardiovascular Disease 04/24/24 documented as of this encounter
--- OUTSIDE RECORDS SUMMARY | 2024-09-12 15:48 | XMS_ITS | Encounter Summary ---
Author Organization [facility] Address [address] [place] [address] Care Team Providers Care Pharmacy Clinical Specialist Name Role Phone Maryjo Reina DO Primary Care Pro vider Unavailable Marisol Valencia PA-C Primary Care Provider U Stephan Muñoz MD Unavailable Unavailable Loreta Bhagat MD Primary Care Provider [phone] Cyndy Jama NP Unavailable [phone] Jose Delgado MD Unavailable [phone] Encounter Details Date Type Department Care Team Description 10/02/2013 Mold Maintenance Technician Report Medical Records [address] [place] [id number] [place] [address] Social History Tobacco Use Types Packs/Day Years Used Date Smoking Tobacco: Every Day Cigarettes 0.5 Smokeless Tobacco: Never Alcohol Use Standard Drinks/Week Comments Yes 0 (1 standard drink = 0.6 oz pur e alcohol) Alcohol Habits Answer Date Recorded How often [...] file Not on file Not on file documented as of this encounter Plan of Treatment Not on file documented as of this encounter Visit Diagnoses Not on filedocumented in this encounter Care Teams Pharmacy Clinical Specialist Relationship Specialty Start Date End Date [place] Colasacco, Maryjo, DO PCP - General Internal Medicine 07/05/13 07/23/21 Marisol Valencia PA-C PCP - General Internal Medicine 07/24/21 08/31/21 Loreta Bhagat MD [address] [place] [address] PCP - General Internal Medicine 09/01/21 Stephan Mejia MD Riding Teacher Cardiovascular Disease 07/30/21 4 Cyndy Jama NP [address] [place] [address] Nurse Practitioner Cardiology 07/23/22 Jose Delgado MD [address] [place] [address] [place] [address] Riding Teacher Cardiovascular Disease 04/24/24 documented as of this encounter
--- OUTSIDE RECORDS SUMMARY | 2024-09-12 15:48 | XMS_ITS | Encounter Summary ---
Author Organization [facility] Address [address] [place] [address] Care Team Providers Care Rug Layer Name Role Phone Maryjo Reina DO Primary Care Pro vider Unavailable Marisol Valencia PA-C Primary Care Provider Stephan Carson MD Unavailable Unavailable Loreta Bhagat MD Primary Care Provider [phone] Cyndy Jama NP Unavailable [phone] Jose Delgado MD Unavailable [phone] Reason for Visit * Reason Onset Date Comments PT-1 09/15/2018 Encounter Details Date Type Department Care Team Description 09/15/2018 Telephone Adult Medicine [address] [address] Maryjo Reina DO PT-1 Social History Tobacco Use Types Packs/Day Years Used Date Smoking Tobacco: Every Day Cigarettes 0.3 43 Started: [birth year]/09/1975 Smokeless Tobacco: Current Alcohol Use Standard Drinks/Week Comments Yes 0 [...] on file documented as of this encounter Miscellaneous Notes * Telephone Encounter - Latiana Keegan M.A. - 09/23/2018 11:39 AM EST Tracking #[id number] * Telephone Encounter - Danielle Richter - 09/15/2018 12:08 PM EST 12/14/17 [facility] patients will now be included in this workflow: Verify and document patients [place] Health insurance ID # (NOT [facility] ID): [id number] Payor: [employer] FFS / Plan: [employer] / Product Type: MEDICAID RISK Patient mailing address: [address] [place] [address] Dr Robel ABBOTT [address] Pt. demographics verified? YES If not accurate, update registration. Is this a NEW request or a RENEWAL? NEW Name of treating facility: [facility] Name (first & last) of treating provider? required : Dr. Maryjo Potter What is the medical reason why the patient is seeing the above provider? Primary care Address/Zip code for treating provider: [address] [place] [address] Phone # for treating provider: [phone] Is the provider in the [facility] (do they accept [place] Health insurance)? YES What specialtly is this provider? Internal medicine When is the visit scheduled for? 09/23- How often you will be seeing this particular provider?one a month Do you have friends or family who can transport you to this visit? NO If yes, do not complete request. Is there anything stopping you from using public transportation? If yes, explain. : YES Is there a medical reason (diagnosis) why you are unable to use public transportation? If yes, explain: yes - Patient Active Problem List Diagnosis Code ??? HIV (human immunodeficiency virus infection) (HCC) B20 ??? COPD (chronic obstructive pulmonary disease) (HCC) J44.9 ??? Chronic hepatitis C (HCC) B18.2 ??? Family history of sickle cell anemia ??? Family history of colon cancer Z80.0 ??? 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 Polysubstance abuse (HCC) F19.10 ??? Anemia D64.9 ??? Pulmonary nodules R91.8 ??? Non-healing non-surgical wound T14.8XXA Do you need a wheelchair van? NO Do you need an escort to accompany you? If yes, explain why. NO Will you have an alternative pick-up address? NO Do you have a service animal? YES PT DOES NOT NEED RELEASE OF INFORMATION SIGNED documented in this encounter Plan of Treatment Not on file documented as of this encounter Visit Diagnoses Not on filedocumented in this encounter Care Teams Rug Layer Relationship Specialty Start Date End Date Maryjo Reina DO PCP - General Internal Medicine 07/05/13 07/23/21 Marisol Valencia PA-C PCP - General Internal Medicine 07/24/21 08/31/21 Loreta Bhagat MD [address] [place] [address] PCP - General Internal Medicine 09/01/21 Stephan Mejia MD Wrapping Machine Helper Cardiovascular Disease 07/30/21 4 Cyndy Jama NP [address] [place] [address] Nurse Practitioner Cardiology 07/23/22 Jose Delgado MD [address] [place] [address] [address] [place] [address] Wrapping Machine Helper Cardiovascular Disease 04/24/24 documented as of this encounter
--- OUTSIDE RECORDS SUMMARY | 2024-09-12 15:48 | XMS_ITS | Encounter Summary ---
Author Organization [facility] Address [address] [place] [address] Care Team Providers Care Transportation Clerk Name Role Phone Stephan Mejia MD Unavailable Unavailable Loreta Bhagat MD Primary Care Provider [phone] Cyndy Jama NP Unavailable [phone] Jose Delgado MD Unavailable [phone] Reason for Visit * Reason Comments E-prescribe Rx Request Encounter Details Date Type Department Care Team Description 01/02/2022 Refill Adult Medicine [address] [address] Karla Jay APRN E-prescribe Rx Request Social History Tobacco Use Types Packs/Day Years Used Date Smoking Tobacco: Every Day Cigarettes 0.3 43 Started: [birth year]/09/1974 Smokeless Tobacco: Never Alcohol Use [...] encounter Miscellaneous Notes * Telephone Encounter - Diane Zapata M.A. - 01/09/2022 1:15 PM EDT Lab Results Component Value Date NA 139 08/15/2021 K 5.0 08/15/2021 CO2 31 08/15/2021 CL 102 08/15/2021 BUN 39 08/15/2021 CREAT 1.54 08/15/2021 GLU 82 08/15/2021 CA 9.3 08/15/2021 GFR 46 08/15/2021 DX: COPD Pending appt with pcp 01/22/22 * Telephone Encounter - Neyda Michelle - 01/09/2022 1:13 PM EDT Appointment booked for 01/22/[address] Bhagat * Telephone Encounter - Catarina Richter - 01/02/2022 12:27 PM EDT Patient would like script to be: E-PRESCRIBED/FAXED TO PHARMACY WHEN WAS THE PATIENT'S LAST APPOINTMENT IN ADULT MEDICINE? 09/29/21 WHEN WAS THE LAST TIME THE PATIENT SAW THEIR PCP? 07/28/21 Does patient have an upcoming appointment? No-unable to reach left [facility] to call for appointment due to refill request. Appt due (THE MEDICATION REQUESTED IS ON THE MED LIST ABOVE) All of the medications requested were on the CURRENT MEDS list Did you check the Pharmacy information above?: YES Patient wants: 90 -day supply Is this a mail order prescription request ? NO If the refill is from a FAXED refill request what is the RX # listed on the fax? N/A Patients current insurance carrier is: Payor: [employer] FFS / Plan: [employer] / Product Type: MEDICAID RISK documented in this encounter Plan of Treatment Not on file documented as of this encounter Visit Diagnoses Not on filedocumented in this encounter Care Teams Transportation Clerk Relationship Specialty Start Date End Date Loreta Bhagat MD [address] [place] [address] PCP - General Internal Medicine 09/01/21 Stephan Mejia MD [place] [employer] Cardiovascular Disease 07/30/21 4 Cyndy Jama NP [address] [place] [address] Nurse Practitioner Cardiology 07/23/22 Jose Delgado MD [address] [place] [address] [place] [address] [place] Cardiovascular Disease 04/24/24 documented as of this encounter
--- OUTSIDE RECORDS SUMMARY | 2024-09-12 15:48 | XMS_ITS | Encounter Summary ---
[facility] Organization [facility] Address [address] [place] [address] Care Team Providers Care Tibco Developer Name Role Phone Maryjo Reina DO Primary Care Pro vider Unavailable Marisol Valencia PA-C Primary Care Provider U Stephan Muñoz MD Unavailable Unavailable Loreta Bhagat MD Primary Care Provider [phone] Cyndy Jama NP Unavailable [phone] Jose Delgado MD Unavailable [phone] Reason for Referral * Non [facility] (Routine) - Authorized/Booked Specialty Diagnoses / Procedures Referred By Sintia cruz Referred To Contact Pulmonology Procedures REFERRAL TO PULMONOLOGY Maryjo Reina DO [address] [place] [address] Pulmo/Chris [address] [place] [address] Referral ID Status Reason Start Date Expiration Date V isits Requested Visits Authorized [id number] Authorized/B ooked 12/31/2017 12/31/2018 1 1 * Non [facility] (Routine) - Unable to reach/declined Specialty Diagnoses / Procedures Referred By Sintia cruz Referred To Contact Oncology/Hematology Procedures REFERRAL TO ONCOLOGY/HEMATOLOGY Maryjo Reina DO [address] [place] [address] Onc/[place] [address] [place] [address] Referral ID Status Reason Start Date Expiration Date V isits Requested Visits Authorized [id number] Unable to reach/declin ed 12/31/2017 12/31/2018 1 1 * Non [facility] (Routine) - Authorized/Booked Specialty Diagnoses / Procedures Referred By Sintia cruz Referred To Contact Gastroenterology Procedures REFERRAL TO GASTROENTEROLOGY Maryjo Reina DO [address] [place] [address] Gastro/[place] [address] [place] [address] Referral ID Status Reason Start Date Expiration Date V isits Requested Visits Authorized [id number] 87-LTR 02/02 Authorized/ Booked 12/31/2017 12/31/2018 1 1 Encounter Details Date Type Department Care Team Description 12/31/2017 Orders Only Adult Medicine [facility] [address] [place] [address] Maryjo Reina DO Thalassemia minor (Primary Dx); Anemia, unspecified type; History of cocaine abuse; HIV (human immunodeficiency virus infection) (HCC); Chronic obstructive pulmonary disease, unspecified COPD type (HCC); Chronic hepatitis C without hepatic coma (HCC) Social History Tobacco Use Types Packs/Day Years [...] documented as of this encounter Visit Diagnoses Diagnosis Thalassemia minor- Primary Anemia, unspecified type History of cocaine abuse (HCC) Cocaine abuse, in remission HIV (human immunodeficiency virus infection) (HCC) Asymptomatic human immunodeficiency virus (HIV) infection status Chronic obstructive pulmonary disease, unspecified COPD type (HCC) Chronic hepatitis C without hepatic coma (HCC) documented in this encounter Care Teams Tibco Developer Relationship Specialty Start Date End Date Maryjo Reina DO PCP - General Internal Medicine 07/05/13 07/23/21 Marisol Valencia PA-C PCP - General Internal Medicine 07/24/21 08/31/21 Loreta Bhagat MD [address] [place] [address] PCP - General Internal Medicine 09/01/21 Stephan Mejia MD Automatic Buffing Wheel Former Cardiovascular Disease 07/30/21 4 Cyndy Jama NP [address] [place] [address] Nurse Practitioner Cardiology 07/23/22 Jose Delgado MD [address] [place] [address] [address] [place] [address] Automatic Buffing Wheel Former Cardiovascular Disease 04/24/24 documented as of this encounter
--- OUTSIDE RECORDS SUMMARY | 2024-09-12 15:48 | XMS_ITS | Encounter Summary ---
Author Organization [facility] Address [address] [place] [address] Care Team Providers Care Film Developer Name Role Phone Maryjo Reina DO Primary Care Pro vider Unavailable Marisol Valencia PA-C Primary Care Provider U Stephan Muñoz MD Unavailable Unavailable Loreta Bhagat MD Primary Care Provider Cyndy Jama NP Unavailable [phone] Jose Delgado MD Unavailable [phone] Encounter Details Date Type Department Care Team Description 10/09/2019 Medical Technologist Hematology Report Medical Records [address] [place] [address] Lelia Cruz PA-C [address] [address] Social History Tobacco Use Types Packs/Day Years [...] on filedocumented in this encounter Care Teams Film Developer Relationship Specialty Start Date End Date Maryjo Reina DO PCP - General Internal Medicine 07/05/13 07/23/21 Marisol Valencia PA-C PCP - General Internal Medicine 07/24/21 08/31/21 Loreta Bhagat MD [address] [place] [address] PCP - General Internal Medicine 09/01/21 Stephan Mejia MD Records Assistant Cardiovascular Disease 07/30/21 4 Cyndy Jama NP [address] [place] [address] Nurse Practitioner Cardiology 07/23/22 Jose Delgado MD [address] [place] [address] [place] [address] Records Assistant Cardiovascular Disease 04/24/24 documented as of this encounter
--- OUTSIDE RECORDS SUMMARY | 2024-09-12 15:48 | XMS_ITS | Encounter Summary ---
Author Organization [employer] [facility] Address [address] [place] [address] Care Team Providers Care Cement Finishing Supervisor Name Role Phone Stephan Mejia MD Unavailable Unavailable Loreta Bhagat MD Primary Care Provider [phone] Cyndy Jama NP Unavailable [phone] Jose Delgado MD Unavailable [phone] Encounter Details Date Type Department Care Team Description 12/31/2021 Hospital Medical Records [address] [place] [address] Jhonathan Song MD Social History Tobacco Use Types Packs/Day Years Used Date Smoking Tobacco: Every Day Cigarettes 0.3 43 Started: 08/09/1974 Smokeless Tobacco: Never Comments:Smokes 3 cigarettes daily Alcohol Use Standard Drinks/Week Comments No [...] on filedocumented in this encounter Care Teams Cement Finishing Supervisor Relationship Specialty Start Date End Date Loreta Bhagat MD [address] [place] [address] [phone] PCP - General Internal Medicine 09/01/21 Stephan Mejia MD Shoe Repairer Cardiovascular Disease 07/30/21 4 Cyndy Jama NP [address] [place] [address] Nurse Practitioner Cardiology 07/23/22 Jose Delgado MD [address] [place] [address] [place] [address] Shoe Repairer Cardiovascular Disease 04/24/24 documented as of this encounter
--- OUTSIDE RECORDS SUMMARY | 2024-09-12 15:48 | XMS_ITS | Encounter Summary ---
Author Organization [employer] [facility] Address [address] [place] [address] Care Team Providers Care Hospital Director Name Role Phone Stephan Mejia MD Unavailable Unavailable Loreta Bhagat MD Primary Care Provider [phone] Cyndy Jama NP Unavailable [phone] Jose Delgado MD Unavailable [phone] Reason for Visit * Reason Onset Date Comments APPOINTMENT 02/04/2023 Encounter Details Date Type Department Care Team Description 02/04/[address] [facility] [address] [place] [address] [phone] Jewel Diaz, PAShanel [address] [place] [address] [phone] APPOINTMENT Social History Tobacco Use Types Packs/Day Years [...] encounter Miscellaneous Notes * Telephone Encounter - Johanne Paul - 02/04/2023 1:06 PM EDT Called and left vm to return my call. * Telephone Encounter - Diane Georges M.A. - 02/04/2023 12:49 PM EDT Pt needs [facility] F/u per Jewel Diaz. Thanks documented in this encounter Plan of Treatment Not on file documented as of this encounter Visit Diagnoses Not on filedocumented in this encounter Care Teams Hospital Director Relationship Specialty Start Date End Date Loreta Bhagat MD [address] [place] [address] PCP - General Internal Medicine 09/01/21 Stephan Mejia MD Stock Mixer Cardiovascular Disease 07/30/21 4 Cyndy Jama NP [address] [place] [address] Nurse Practitioner Cardiology 07/23/22 Jose Delgado MD [address] [place] [address] [address] [place] [address] Stock Mixer Cardiovascular Disease 04/24/24 documented as of this encounter
--- OUTSIDE RECORDS SUMMARY | 2024-09-12 15:48 | XMS_ITS | Encounter Summary ---
Author Organization [employer] [facility] Address [address] [place] [address] Care Team Providers Care Battery Technician Name Role Phone Maryjo Reina DO Primary Care Pro vider Unavailable Marisol Valencia PA-C Primary Care Provider U Stephan Muñoz MD Unavailable Unavailable Loreta Bhagat MD Primary Care Provider [phone] Cyndy Jama NP Unavailable [phone] Jose Delgado MD Unavailable [phone] Encounter Details Date Type Department Care Team Description 03/29/2020 Integration Software Developer Report Medical Records [address] [place] [address] Social History Tobacco Use Types Packs/Day Years [...] on filedocumented in this encounter Care Teams Battery Technician Relationship Specialty Start Date End Date Maryjo Reina DO PCP - General Internal Medicine 07/05/13 07/23/21 Marisol Valencia PA-C PCP - General Internal Medicine 07/24/21 08/31/21 Loreta Bhagat MD [address] [place] [address] PCP - General Internal Medicine 09/01/21 Stephan Mejia MD Curtains And Draperies Salesperson Cardiovascular Disease 07/30/21 4 Cyndy Jama NP [address] [place] [address] Nurse Practitioner Cardiology 07/23/22 Jose Delgado MD [address] [place] [address] [place] [address] Curtains And Draperies Salesperson Cardiovascular Disease 04/24/24 documented as of this encounter
--- OUTSIDE RECORDS SUMMARY | 2024-09-12 15:48 | XMS_ITS | Encounter Summary ---
Author Organization [employer] [facility] Address [address] [place] [address] Care Team Providers Care Cost Controller Name Role Phone Stephan Mejia MD Unavailable Unavailable Loreta Bhagat MD Primary Care Provider [phone] Cyndy Jama NP Unavailable [phone] Jose Delgado MD Unavailable [phone] Encounter Details Date Type Department Care Team Description 12/30/2021 Hospital Medical Records [address] [place], [place] [phone] [place] [address] Social History Tobacco Use Types Packs/Day Years [...] on file documented as of this encounter Procedures Procedure Name Priority Date/Time Associated Diagnosis Comments OUTSIDE LAB Routine 12/31/2021 OUTSIDE LAB Routine 12/31/2021 OUTSIDE EKG Routine 12/30/2021 documented in this encounter Results * OUTSIDE LAB (12/31/2021) Provider Abstract LAB * OUTSIDE LAB (12/31/2021) Provider Abstract LAB * OUTSIDE EKG (12/30/2021) Provider Abstract CARDIOLOGY documented in this encounter Visit Diagnoses Not on filedocumented in this encounter Care Teams Cost Controller Relationship Specialty Start Date End Date Loreta Bhagat MD [address] [place] [address] PCP - General Internal Medicine 09/01/21 Stephan Mejia MD Soa Architect Cardiovascular Disease 07/30/21 4 Cyndy Jama NP [address] [place] [address] Nurse Practitioner Cardiology 07/23/22 Jose Delgado MD [address] [place] [address] [address] [place] [address] Soa Architect Cardiovascular Disease 04/24/24 documented as of this encounter
--- OUTSIDE RECORDS SUMMARY | 2024-09-12 15:48 | XMS_ITS | Encounter Summary ---
Author Organization [facility] Address [address] [place] [address] Care Team Providers Care Subscription Agent Name Role Phone Siddharth Gardiner MD Primary Care Provider Unav Maryjo Putnam DO Primary Care Pro vider Unavailable Marisol Valencia PA-C Primary Care Provider U Stephan Muñoz MD Unavailable Unavailable Loreta Bhagat MD Primary Care Provider [phone] Cyndy Jama NP Unavailable [phone] Jose Delgado MD Unavailable [phone] Encounter Details Date Type Department Care Team Description 11/09/2012 Release of Information Medical Records [address] [place] [address] Abstract, Provider Social History Tobacco Use Types Packs/Day Years [...] on filedocumented in this encounter Care Teams Subscription Agent Relationship Specialty Start Date End Date Siddharth Gardiner MD PCP - General Internal Medicine 10/14/12 3 Maryjo Reina DO PCP - General Internal Medicine 07/05/13 07/23/21 Marisol Valencia PA-C PCP - General Internal Medicine 07/24/21 08/31/21 Loreta Bhagat MD [address] [place] [address] PCP - General Internal Medicine 09/01/21 Stephan Mejia MD Service Tech Cardiovascular Disease 07/30/21 4 Cyndy Jama NP [address] [place] [address] Nurse Practitioner Cardiology 07/23/22 Jose Delgado MD [address] [place] [address] [address] [place] [address] Service Tech Cardiovascular Disease 04/24/24 documented as of this encounter
--- OUTSIDE RECORDS SUMMARY | 2024-09-12 15:48 | XMS_ITS | Encounter Summary ---
Author Organization [employer] [facility] Address [address] [place] [address] Care Team Providers Care Hogshead Wrecker Name Role Phone Maryjo Reina DO Primary Care Pro vider Unavailable Marisol Valencia PA-C Primary Care Provider U Stephan Muñoz MD Unavailable Unavailable Loreta Bhagat MD Primary Care Provider [phone] yCndy Jama NP Unavailable [phone] Jose Delgado MD Unavailable [phone] Encounter Details Date Type Department Care Team Description 10/20/2013 Bitumastic Applier Report Medical Records [address] [place] [id number] [place] [address] Social History Tobacco Use Types Packs/Day Years [...] on filedocumented in this encounter Care Teams Hogshead Wrecker Relationship Specialty Start Date End Date [place] Colasacco, Maryjo, DO PCP - General Internal Medicine 07/05/13 07/23/21 Marisol Valencia PA-C PCP - General Internal Medicine 07/24/21 08/31/21 Loreta Bhagat MD [address] [place] [address] PCP - General Internal Medicine 09/01/21 Stephan Mejia MD Guest Relations Executive Cardiovascular Disease 07/30/21 4 Cyndy Jama NP [address] [place] [address] Nurse Practitioner Cardiology 07/23/22 Jose Delgado MD [address] [place] [address] [place] [address] Guest Relations Executive Cardiovascular Disease 04/24/24 documented as of this encounter
--- OUTSIDE RECORDS SUMMARY | 2024-09-12 15:48 | XMS_ITS | Encounter Summary ---
Author Organization [facility] Address [address] [place] [address] Care Team Providers Care Circuit Breaker Assembler Name Role Phone Stephan Mejia MD Unavailable Unavailable Loreta Bhagat MD Primary Care Provider [phone] Cyndy Jama NP Unavailable [phone] Jose Delgado MD Unavailable [phone] Reason for Visit * Reason Onset Date Comments refill request 01/28/2023 Encounter Details Date Type Department Care Team Description 01/28/2023 Telephone Adult Medicine [address] [phone] Loreta Bhagat MD [address] [place] [address] [phone] refill request Social History Tobacco Use Types Packs/Day Years [...] Telephone Encounter - Diane Zapata M.A. - 01/28/2023 2:55 PM EDT Lab Results Component Value Date HGBA1C 5.8 04/24/2022 MALBUR 21.8 10/25/2012 MALBCR 13 10/25/2012 CHOL 132 10/10/2019 LDL 62 10/10/2019 HDL 57 10/10/2019 TRIG 68 10/10/2019 GLU 95 04/24/2022 CREAT 1.69 04/24/2022 Pending appt 06/01/23 laat appt 10/28/22 * Telephone Encounter - Bria Romero - 01/28/2023 1:57 PM EDT Patient would like script to be: E-PRESCRIBED/FAXED TO PHARMACY WHEN WAS THE PATIENT'S LAST APPOINTMENT IN ADULT MEDICINE? 12/07/22 WHEN WAS THE LAST TIME THE PATIENT SAW THEIR PCP? 10/28/22 Does patient have an upcoming appointment? Yes 06/01/23 (THE MEDICATION REQUESTED IS ON THE MED LIST ABOVE) All of the medications requested were on the CURRENT MEDS list Did you check the Pharmacy information above?: YES Patient wants: 30 -day supply Is this a mail order prescription request ? NO If the refill is from a FAXED refill request what is the RX # listed on the fax? N/A Patients current insurance carrier is: Payor: [facility] [employer] ([employer]And) [facility] FFS / Plan: [facility] / Product Type: MEDICAID RISK documented in this encounter Plan of Treatment Not on file documented as of this encounter Visit Diagnoses Not on filedocumented in this encounter Care Teams Circuit Breaker Assembler Relationship Specialty Start Date End Date Loreta Bhagat MD [address] [place] [address] PCP - General Internal Medicine 09/01/21 Stephan Mejia MD Clinical Support Manager Cardiovascular Disease 07/30/21 4 Cyndy Jama NP [address] [place] [address] Nurse Practitioner Cardiology 07/23/22 Jose Delgado MD [address] [place] [address] [place] [address] Clinical Support Manager Cardiovascular Disease 04/24/24 documented as of this encounter
--- OUTSIDE RECORDS SUMMARY | 2024-09-12 15:48 | XMS_ITS | Encounter Summary ---
Author Organization [employer] [facility] Address [address] [place] [address] Care Team Providers Care Stem Sizer Name Role Phone Maryjo Reina DO Primary Care Pro vider Unavailable Marisol Valencia PA-C Primary Care Provider U Stephan Muñoz MD Unavailable Unavailable Loreta Bhagat MD Primary Care Provider [phone] Cyndy Jama NP Unavailable [phone] Jose Delgado MD Unavailable [phone] Encounter Details Date Type Department Care Team Description 11/10/2013 Reception Centre Manager Report Medical Records [address] [place] [address] Lanre Tanner, DPM Social History Tobacco Use Types Packs/Day Years [...] on filedocumented in this encounter Care Teams Stem Sizer Relationship Specialty Start Date End Date Maryjo Reina DO PCP - General Internal Medicine 07/05/13 07/23/21 Marisol Valencia PA-C PCP - General Internal Medicine 07/24/21 08/31/21 Loreta Bhagat MD [address] [place] [address] PCP - General Internal Medicine 09/01/21 Stephan Mejia MD Customer Experience Professional Cardiovascular Disease 07/30/21 4 Cyndy Jama NP [address] [place] [address] Nurse Practitioner Cardiology 07/23/22 Jose Delgado MD [address] [place] [address] [address] [place] [address] Customer Experience Professional Cardiovascular Disease 04/24/24 documented as of this encounter
--- OUTSIDE RECORDS SUMMARY | 2024-09-12 15:48 | XMS_ITS | Encounter Summary ---
Author Organization [facility] [facility] Address [address] [place] [address] Care Team Providers Care Passenger Booking Clerk Name Role Phone Maryjo Reina DO Primary Care Pro vider Unavailable Marisol Valencia PA-C Primary Care Provider Stephan [place] MD Unavailable Unavailable Loreta Bhagat MD Primary Care Provider [phone] Cyndy Jama NP Unavailable [phone] Jose Delgado MD Unavailable Encounter Details Date Type Department Care Team Description 02/11/2020 Hospital Medical Records [address] [place] [address] Social History Tobacco Use Types Packs/Day Years [...] on filedocumented in this encounter Care Teams Passenger Booking Clerk Relationship Specialty Start Date End Date Maryjo Reina DO PCP - General Internal Medicine 07/05/13 07/23/21 Marisol Valencia PA-C PCP - General Internal Medicine 07/24/21 08/31/21 Loreta Bhagat MD [address] [place] [address] PCP - General Internal Medicine 09/01/21 Stephan Mejia MD Marriage Performer Cardiovascular Disease 07/30/21 4 Cyndy Jama NP [address] [place] [address] Nurse Practitioner Cardiology 07/23/22 Jose Delgado MD [address] [place] [address] [place] [address] Marriage Performer Cardiovascular Disease 04/24/24 documented as of this encounter
--- OUTSIDE RECORDS SUMMARY | 2024-09-12 15:48 | XMS_ITS | Encounter Summary ---
Author Organization [employer] [facility] Address [address] [place] [address] Care Team Providers Care Talent Acquisition Coordinator Name Role Phone Maryjo Reina DO Primary Care Pro vider Unavailable Marisol Valencia PA-C Primary Care Provider U Stephan Muñoz MD Unavailable Unavailable Loreta Bhagat MD Primary Care Provider [phone] Cyndy Jama NP Unavailable [phone] Jose Delgado MD Unavailable Encounter Details Date Type Department Care Team Description 12/15/2019 Time Piece Repairer Report Medical Records [address] [place] [address] Gilbert Guajardo MD Social History Tobacco Use Types Packs/Day [...] on filedocumented in this encounter Care Teams Talent Acquisition Coordinator Relationship Specialty Start Date End Date Maryjo Reina DO PCP - General Internal Medicine 07/05/13 07/23/21 Marisol Valencia PA-C PCP - General Internal Medicine 07/24/21 08/31/21 Loreta Bhagat MD [address] [place] [address] PCP - General Internal Medicine 09/01/21 Stephan Mejia MD Ground Hand Cardiovascular Disease 07/30/21 4 Cyndy Jama NP [address] [place] [address] Nurse Practitioner Cardiology 07/23/22 Jose Delgado MD [address] [place] [address] [address]IVE [address] [place] [address] Ground Hand Cardiovascular Disease 04/24/24 documented as of this encounter
--- OUTSIDE RECORDS SUMMARY | 2024-09-12 15:48 | XMS_ITS | Encounter Summary ---
Author Organization [facility] Address [address] [place] [address] Care Team Providers Care Electronic Bench Technician Name Role Phone Stephan Mejia MD Unavailable Unavailable Loreta Bhagat MD Primary Care Provider Cyndy Jama NP Unavailable [phone] Jose Delgado MD Unavailable [phone] Encounter Details Date Type Department Care Team Description 02/03/2022 Video Specialist Report Medical Records [address] [place] [address] Katya Jacobsen MD Social History Tobacco Use Types Packs/Day [...] suspected to have Coronavirus/COVID-19? No / Unsure 01/22/2022 12:50 PM EDT documented as of this encounter Plan of Treatment Not on file documented as of this encounter Visit Diagnoses Not on filedocumented in this encounter Care Teams Electronic Bench Technician Relationship Specialty Start Date End Date Loreta Bhagat MD [address] [place] [address] PCP - General Internal Medicine 09/01/21 Stephan Mejia MD Chief Unit Forester Cardiovascular Disease 07/30/21 4 Cyndy Jama NP [address] [place] [address] Nurse Practitioner Cardiology 07/23/22 Jose Delgado MD [address] [place] [address] [address] [place] [address] Chief Unit Forester Cardiovascular Disease 04/24/24 documented as of this encounter
--- OUTSIDE RECORDS SUMMARY | 2024-09-12 15:48 | XMS_ITS | Encounter Summary ---
Author Organization [employer] [facility] Address [address] [place] [address] Care Team Providers Care Campaign Director Name Role Phone Maryjo Reina DO Primary Care Pro vider Unavailable Marisol Valencia PA-C Primary Care Provider U Stephan Muñoz MD Unavailable Unavailable Loreta Bhagat MD Primary Care Provider [phone] Cyndy Jama NP Unavailable [phone] Jose Delgado MD Unavailable [phone] Encounter Details Date Type Department Care Team Description 11/17/2019 Release of Information Medical Records [address] [place] [address] Abstract, Provider Social History Tobacco Use Types [...] on filedocumented in this encounter Care Teams Campaign Director Relationship Specialty Start Date End Date KraMaryjo Sanches DO PCP - General Internal Medicine 07/05/13 07/23/21 Marisol Valencia PA-C PCP - General Internal Medicine 07/24/21 08/31/21 Loreta Bhagat MD [address] [place] [address] PCP - General Internal Medicine 09/01/21 Stephan Mejia MD Chemical Librarian Cardiovascular Disease 07/30/21 4 Cyndy Jama NP [address] [place] [address] Nurse Practitioner Cardiology 07/23/22 Jose Delgado MD [address] [place] [address] [place] [address] Chemical Librarian Cardiovascular Disease 04/24/24 documented as of this encounter
--- OUTSIDE RECORDS SUMMARY | 2024-09-12 15:48 | XMS_ITS | Encounter Summary ---
Author Organization [employer] [facility] Address [address] [place] [address] Care Team Providers Care Infusion Therapy Nurse Name Role Phone Maryjo Reina DO Primary Care Pro vider Unavailable Marisol Valencia PA-C Primary Care Provider U Stephan Muñoz MD Unavailable Unavailable Loreta Bhagat MD Primary Care Provider [phone] Cyndy Jama NP Unavailable [phone] Jose Delgado MD Unavailable [phone] Encounter Details Date Type Department Care Team Description 10/26/2014 Associate Director Of Sales Report Medical Records [address] [place] [address] Lanre Tanner, DPM Social History Tobacco Use [...] on filedocumented in this encounter Care Teams Infusion Therapy Nurse Relationship Specialty Start Date End Date Maryjo Reina DO PCP - General Internal Medicine 07/05/13 07/23/21 Marisol Valencia PA-C PCP - General Internal Medicine 07/24/21 08/31/21 Loreta Bhagat MD [address] [place] [address] PCP - General Internal Medicine 09/01/21 Stephan Mejia MD Tree Deadener Cardiovascular Disease 07/30/21 4 Cyndy Jama NP [address] [place] [address] Nurse Practitioner Cardiology 07/23/22 Jose Delgado MD [address] [place] [address] DR[address] [place] [address] Tree Deadener Cardiovascular Disease 04/24/24 documented as of this encounter
--- OUTSIDE RECORDS SUMMARY | 2024-09-12 15:48 | XMS_ITS | Encounter Summary ---
Author Organization [employer] [facility] Address [address] [place] [address] Care Team Providers Care Behavioral Health Clinician Name Role Phone Maryjo Reina DO Primary Care Pro vider Unavailable Marisol Valencia PA-C Primary Care Provider U Stephan Muñoz MD Unavailable Unavailable Loreta Bhagat MD Primary Care Provider [phone] Cyndy Jama NP Unavailable [phone] Jose Delgado MD Unavailable [phone] Encounter Details Date Type Department Care Team Description 03/05/2014 Automobile Upholstery Trim Installer Report Medical Records [address] [place] [address] Gus Jacobo MD Social History Tobacco Use Types Packs/Day [...] on filedocumented in this encounter Care Teams Behavioral Health Clinician Relationship Specialty Start Date End Date Maryjo Reina DO PCP - General Internal Medicine 07/05/13 07/23/21 Marisol Valencia PA-C PCP - General Internal Medicine 07/24/21 08/31/21 Loreta Bhagat MD [address] [place] [address] PCP - General Internal Medicine 09/01/21 Stephan Mejia MD A Operator Cardiovascular Disease 07/30/21 4 Cyndy Jama NP [address] [place] [address] Nurse Practitioner Cardiology 07/23/22 Jose Delgado MD [address] [place] [address] [address] [place] [address] A Operator Cardiovascular Disease 04/24/24 documented as of this encounter
--- OUTSIDE RECORDS SUMMARY | 2024-09-12 15:48 | XMS_ITS | Encounter Summary ---
Author Organization [employer] [facility] Address [address] [place] [address] Care Team Providers Care Mechanic Helper Name Role Phone Maryjo Reina DO Primary Care Pro vider Unavailable Marisol Valencia PA-C Primary Care Provider U Stephan Muñoz MD Unavailable Unavailable Loreta Bhagat MD Primary Care Provider [phone] Cyndy Jama NP Unavailable [phone] Jose Delgado MD Unavailable [phone] Encounter Details Date Type Department Care Team Description 06/05/2020 Release of Information Medical Records [address] [place] [address] Abstract, Provider Social History Tobacco Use Types [...] on filedocumented in this encounter Care Teams Mechanic Helper Relationship Specialty Start Date End Date KraMaryjo Sanches DO PCP - General Internal Medicine 07/05/13 07/23/21 Marisol Valencia PA-C PCP - General Internal Medicine 07/24/21 08/31/21 Loreta Bhagat MD [address] [place] [address] PCP - General Internal Medicine 09/01/21 Stephan Mejia MD Clothing Supervisor Cardiovascular Disease 07/30/21 4 Cyndy Jama NP [address] [place] [address] Nurse Practitioner Cardiology 07/23/22 Jose Delgado MD [address] [place] [address] [place] [address] Clothing Supervisor Cardiovascular Disease 04/24/24 documented as of this encounter
--- OUTSIDE RECORDS SUMMARY | 2024-09-12 15:48 | XMS_ITS | Encounter Summary ---
Author Organization [employer] [facility] Address [address] [place] [address] Care Team Providers Care Oral And Maxillofacial Pathologist Name Role Phone Maryjo Reina DO Primary Care Pro vider Unavailable Marisol Valencia PA-C Primary Care Provider U Stephan Muñoz MD Unavailable Unavailable Loreta Bhagat MD Primary Care Provider [phone] Cnydy Jama NP Unavailable [phone] Jose Delgado MD Unavailable Encounter Details Date Type Department Care Team Description 09/07/2013 Release of Information Medical Records [address] [place] [address] Abstract, Provider Social History Tobacco Use Types [...] on filedocumented in this encounter Care Teams Oral And Maxillofacial Pathologist Relationship Specialty Start Date End Date Maryjo Reina DO PCP - General Internal Medicine 07/05/13 07/23/21 Marisol Valencia PA-C PCP - General Internal Medicine 07/24/21 08/31/21 Loreta Bhagat MD [address] [place] [address] PCP - General Internal Medicine 09/01/21 Stephan Mejia MD Armed Security Officer Cardiovascular Disease 07/30/21 4 Cyndy Jama NP [address] [place] [address] Nurse Practitioner Cardiology 07/23/22 Jose Delgado MD [address] [place] [address] [place] [address] Armed Security Officer Cardiovascular Disease 04/24/24 documented as of this encounter
--- OUTSIDE RECORDS SUMMARY | 2024-09-12 15:48 | XMS_ITS | Encounter Summary ---
Author Organization [employer] [facility] Address [address] [place] [address] Care Team Providers Care Etcher Aircraft Name Role Phone Siddharth Gardiner MD Primary Care Provider Unav Maryjo Putnam DO Primary Care Pro vider Unavailable Marisol Valencia PA-C Primary Care Provider U Stephan Muñoz MD Unavailable Unavailable Loreta Bhagat MD Primary Care Provider [phone] Cyndy Jama NP Unavailable [phone] Jose Delgado MD Unavailable [phone] Encounter Details Date Type Department Care Team Description 11/17/2012 Tamale Machine Feeder Report Medical Records [address] [place] [address] Joseph Goldsmith PA-C Social History Tobacco Use Types Packs/Day Years [...] on filedocumented in this encounter Care Teams Etcher Aircraft Relationship Specialty Start Date End Date Siddharth Gardiner MD PCP - General Internal Medicine 10/14/12 3 Maryjo Reina DO PCP - General Internal Medicine 07/05/13 07/23/21 Marisol Valencia PA-C PCP - General Internal Medicine 07/24/21 08/31/21 Loreta Bhagat MD [address] [place] [address] PCP - General Internal Medicine 09/01/21 Stephan Mejia MD Ob Scrub Tech Cardiovascular Disease 07/30/21 4 Cyndy Jama NP [address] [place] [address] Nurse Practitioner Cardiology 07/23/22 Jose Delgado MD [address] [place] [address] DR[address] [place] [address] Ob Scrub Tech Cardiovascular Disease 04/24/24 documented as of this encounter
--- OUTSIDE RECORDS SUMMARY | 2024-09-12 15:48 | XMS_ITS | Encounter Summary ---
Author Organization [facility] Address [address] [place] [address] Care Team Providers Care Music Therapy Teacher Name Role Phone Stephan Mejia MD Unavailable Unavailable Loreta Bhagat MD Primary Care Provider [phone] Cyndy Jama NP Unavailable [phone] Jose Delgado MD Unavailable [phone] Reason for Visit * Reason Onset Date Comments refill request 01/27/2023 furosemide (LASI X) 40 MG tablet - carvedilol (COREG) 6.25 MG tablet Encounter Details Date Type Department Care Team Description 01/27/2023 Refill Adult Medicine [address] [id number] Loreta Bhagat MD [address] [place] [address] [phone] refill request (furosemide (LASIX) 40 MG tablet - carvedilol (COREG) 6.25 MG tablet) Social History Tobacco Use Types Packs/Day Years [...] Telephone Encounter - Diane Zapata M.A. - 01/27/2023 3:24 PM EDT Last rx for Furosemide was 09/2022 #7 * Telephone Encounter - Diane Zapata M.A. - 01/27/2023 3:19 PM EDT Lab Results Component Value Date NA 139 04/24/2022 K 4.5 04/24/2022 CO2 31 04/24/2022 CL 104 04/24/2022 BUN 22 04/24/2022 CREAT 1.69 04/24/2022 GLU 95 04/24/2022 CA 9.5 04/24/2022 GFR 41 04/24/2022 * Telephone Encounter - Ezequiel Tapia - 01/27/2023 3:06 PM EDT Patient would like script to be: E-PRESCRIBED/FAXED TO PHARMACY WHEN WAS THE PATIENT'S LAST APPOINTMENT IN ADULT MEDICINE? 12/21/2022 WHEN WAS THE LAST TIME THE PATIENT SAW THEIR PCP? 10/28/2022 Does patient have an upcoming appointment? Yes 06/01/2023 (THE MEDICATION REQUESTED IS ON THE MED [...] N/A Patients current insurance carrier is: Payor: [facility] / Plan: [facility] / Product Type: MEDICAID RISK documented in this encounter Plan of Treatment Not on file documented as of this encounter Visit Diagnoses Not on filedocumented in this encounter Care Teams Music Therapy Teacher Relationship Specialty Start Date End Date Loreta Bhagat MD [address] [place] [address] PCP - General Internal Medicine 09/01/21 Stephan Mejia MD Welfare Specialist Cardiovascular Disease 07/30/21 4 Cyndy Jama NP [address] [place] [address]15 Nurse Practitioner Cardiology 07/23/22 Jose Delgado MD [address] [place] [address] [address] [place] [address] Welfare Specialist Cardiovascular Disease 04/24/24 documented as of this encounter
--- OUTSIDE RECORDS SUMMARY | 2024-09-12 15:48 | XMS_ITS | Encounter Summary ---
Author Organization [employer] [facility] Address [address] [place] [address] Care Team Providers Care Sawdust Drier Name Role Phone Stephna Mejia MD Unavailable Unavailable Loreta Bhagat MD Primary Care Provider [phone] Cyndy Jama NP Unavailable [phone] Jose Delgado MD Unavailable Encounter Details Date Type Department Care Team Description 01/17/2022 SCAN Medical Records [address] [place] [address] Abstract, Provider Social History Tobacco Use Types [...] Date/Time Associated Diagnosis Comments OUTSIDE LAB Routine 01/17/2022 documented in this encounter Results * OUTSIDE LAB (01/17/2022) Provider Abstract LAB documented in this encounter Visit Diagnoses Not on filedocumented in this encounter Care Teams Sawdust Drier Relationship Specialty Start Date End Date Loreta Bhagat MD [address] [place] [address] PCP - General Internal Medicine 09/01/21 Stephan Mejia MD Field Talent Qualification Specialist Cardiovascular Disease 07/30/21 4 Cyndy Jama NP [address] [place] [address] Nurse Practitioner Cardiology 07/23/22 Jose Delgado MD [address] [place] [address] [place] [address] Field Talent Qualification Specialist Cardiovascular Disease 04/24/24 documented as of this encounter
--- OUTSIDE RECORDS SUMMARY | 2024-09-12 15:48 | XMS_ITS | Encounter Summary ---
Author Organization [employer] [facility] Address [address] [place] [address] Care Team Providers Care Engine Buildup Mechanic Name Role Phone Maryjo Reina DO Primary Care Pro vider Unavailable Marisol Valencia PA-C Primary Care Provider U Stephan Muñoz MD Unavailable Unavailable Loreta Bhagat MD Primary Care Provider [phone] Cyndy Jama NP Unavailable [phone] Jose Delgado MD Unavailable Encounter Details Date Type Department Care Team Description 10/05/2014 Plaster Block Layer Report Medical Records [address] [place] [address] Lanre Tanner, DPM Social History Tobacco Use [...] on filedocumented in this encounter Care Teams Engine Buildup Mechanic Relationship Specialty Start Date End Date Maryjo Reina DO PCP - General Internal Medicine 07/05/13 07/23/21 Marisol Valencia PA-C PCP - General Internal Medicine 07/24/21 08/31/21 Loreta Bhagat MD [address] [place] [address] PCP - General Internal Medicine 09/01/21 Stephan Mejia MD Herpetology Teacher Cardiovascular Disease 07/30/21 4 Cyndy Jama NP [address] [place] [address] 22363 Nurse Practitioner Cardiology 07/23/22 Jose Delgado MD [address] [place] [address] [address] [place] [address] Herpetology Teacher Cardiovascular Disease 04/24/24 documented as of this encounter
--- OUTSIDE RECORDS SUMMARY | 2024-09-12 15:48 | XMS_ITS | Encounter Summary ---
Author Organization [employer] [facility] Address [address] [place] [address] Care Team Providers Care Recovery Auditor Name Role Phone Maryjo Reina DO Primary Care Pro vider Unavailable Marisol Valencia PA-C Primary Care Provider U Stephan Muñoz MD Unavailable Unavailable Loreta Bhagat MD Primary Care Provider [phone] Cyndy Jama NP Unavailable [phone] Jose Delgado MD Unavailable [phone] Encounter Details Date Type Department Care Team Description 11/22/2018 Release of Information Medical Records [address] [place] [address] Abstract, Provider Social History Tobacco Use Types [...] on filedocumented in this encounter Care Teams Recovery Auditor Relationship Specialty Start Date End Date Maryjo Reina DO PCP - General Internal Medicine 07/05/13 07/23/21 Marisol Valencia PA-C PCP - General Internal Medicine 07/24/21 08/31/21 Loreta Bhagat MD [address] [place] [address] PCP - General Internal Medicine 09/01/21 Stephan Mejia MD Data Collection Technician Cardiovascular Disease 07/30/21 4 Cyndy Jama NP [address] [place] [address] Nurse Practitioner Cardiology 07/23/22 Jose Delgado MD [address] [place] [address] [place] [address] Data Collection Technician Cardiovascular Disease 04/24/24 documented as of this encounter
--- OUTSIDE RECORDS SUMMARY | 2024-09-12 15:48 | XMS_ITS | Encounter Summary ---
Author Organization [facility] Address [address] [place] [address] Care Team Providers Care Airborne Mission Systems Superintendent Name Role Phone Stephan Mejia MD Unavailable Unavailable Loreta Bhagat MD Primary Care Provider [phone] Cyndy Jama NP Unavailable [phone] Jose Delgado MD Unavailable Encounter Details Date Type Department Care Team Description 08/14/2022 Sales Review Clerk Report Medical Records [address] [place] [address] Jorge Brooks MD Social History Tobacco Use Types Packs/Day [...] on filedocumented in this encounter Care Teams Airborne Mission Systems Superintendent Relationship Specialty Start Date End Date Loreta Bhagat MD [address] [place] [address] PCP - General Internal Medicine 09/01/21 Stephan Mejia MD Second Hand Paper Machine Cardiovascular Disease 07/30/21 4 Cyndy Jama NP [address] [place] [address] Nurse Practitioner Cardiology 07/23/22 Jose Delgado MD [address] [place] [address] [place] [address] Second Hand Paper Machine Cardiovascular Disease 04/24/24 documented as of this encounter
--- OUTSIDE RECORDS SUMMARY | 2024-09-12 15:48 | XMS_ITS | Encounter Summary ---
Author Organization [facility] Address [address] [place] [address] Care Team Providers Care Peripheral Edp Equipment Operator Name Role Phone Siddharth Gardiner MD Primary Care Provider Unav ailMaryjo Day DO Primary Care Pro vider Unavailable Marisol Valencia PA-C Primary Care Provider U Stephan Muñoz MD Unavailable Unavailable Loreta Bhagat MD Primary Care Provider [phone] Cyndy Jama NP Unavailable [phone] Jose Delgado MD Unavailable [phone] Reason for Visit * Reason Onset Date Comments Appointment-Internal Referral 12/08/2012 Encounter Details Date Type Department Care Team Description 12/08/2012 Telephone Adult Medicine [address] [id number] Siddharth Gardiner MD Appointment-Internal Referral Social History Tobacco Use Types Packs/Day Years [...] encounter Miscellaneous Notes * Telephone Encounter - Rashmi [place] - 12/08/2012 3:16 PM EDT FYI Patient was referred to the Eye Dept. 2 documented phone calls and one letter was sent. Patient hasnot contacted our office to schedule an appointment. documented in this encounter Plan of Treatment Not on file documented as of this encounter Visit Diagnoses Not on filedocumented in this encounter Care Teams Peripheral Edp Equipment Operator Relationship Specialty Start Date End Date Siddharth Gardiner MD PCP - General Internal Medicine 10/14/12 3 Maryjo Reina DO PCP - General Internal Medicine 07/05/13 07/23/21 Marisol Valencia PA-C PCP - General Internal Medicine 07/24/21 08/31/21 Loreta Bhagat MD [address] [place] [address] PCP - General Internal Medicine 09/01/21 Stephan Mejia MD Electronic Communications Technician Cardiovascular Disease 07/30/21 4 Cyndy Jama NP [address] [place] [address] Nurse Practitioner Cardiology 07/23/22 Jose Delgado MD [address] [place] [address] [address] [place] [address] Electronic Communications Technician Cardiovascular Disease 04/24/24 documented as of this encounter
--- OUTSIDE RECORDS SUMMARY | 2024-09-12 15:48 | XMS_ITS | Encounter Summary ---
Author Organization [employer] [facility] Address [address] [place] [address] Care Team Providers Care Right Of Way Maintenance Supervisor Name Role Phone Maryjo Reina DO Primary Care Pro vider Unavailable Marisol Valencia PA-C Primary Care Provider U Stephan Muñoz MD Unavailable Unavailable Loreta Bhagat MD Primary Care Provider Cyndy Jama NP Unavailable [phone] Jose Delgado MD Unavailable [phone] Encounter Details Date Type Department Care Team Description 05/22/2020 Release of Information Medical Records [address] [place] [address] Abstract, Provider Social History Tobacco Use Types [...] on filedocumented in this encounter Care Teams Right Of Way Maintenance Supervisor Relationship Specialty Start Date End Date KraMaryjo Sanches DO PCP - General Internal Medicine 07/05/13 07/23/21 Marisol Valencia PA-C PCP - General Internal Medicine 07/24/21 08/31/21 Loreta Bhagat MD [address] [place] [address] PCP - General Internal Medicine 09/01/21 Stephan Mejia MD Application Support Engineer Cardiovascular Disease 07/30/21 4 Cyndy Jama NP [address] [place] [address] Nurse Practitioner Cardiology 07/23/22 Jose Delgado MD [address] [place] [address] [place] [address] Application Support Engineer Cardiovascular Disease 04/24/24 documented as of this encounter
--- OUTSIDE RECORDS SUMMARY | 2024-09-12 15:48 | XMS_ITS | Encounter Summary ---
Author Organization [employer] [facility] Address [address] [place] [address] Care Team Providers Care Awning Hanger Name Role Phone Maryjo Reina DO Primary Care Pro vider Unavailable Marisol Valencia PA-C Primary Care Provider U Stephan Muñoz MD Unavailable Unavailable Loreta Bhagat MD Primary Care Provider [phone] Cyndy Jama NP Unavailable [phone] Jose Delgado MD Unavailable [phone] Encounter Details Date Type Department Care Team Description 04/02/2020 Hospital Medical Records [address] [place] [address] Yung Piper Social History Tobacco Use Types Packs/Day Years [...] on filedocumented in this encounter Care Teams Awning Hanger Relationship Specialty Start Date End Date Maryjo Reina DO PCP - General Internal Medicine 07/05/13 07/23/21 Marisol Valencia PA-C PCP - General Internal Medicine 07/24/21 08/31/21 Loreta Bhagat MD [address] [place] [address] PCP - General Internal Medicine 09/01/21 Stephan Mejia MD Auto Inspection Specialist Cardiovascular Disease 07/30/21 4 Cyndy Jama NP [address] [place] [address] Nurse Practitioner Cardiology 07/23/22 Jose Delgado MD [address] [place] [address] DR[address] [place] [address] Auto Inspection Specialist Cardiovascular Disease 04/24/24 documented as of this encounter
--- OUTSIDE RECORDS SUMMARY | 2024-09-12 15:48 | XMS_ITS | Encounter Summary ---
Author Organization [facility] Address [address] [place] [address] Care Team Providers Care Commercial Instructor Supervisor Name Role Phone Stephan Mejia MD Unavailable Unavailable Loreta Bhagat MD Primary Care Provider [phone] Cyndy Jama NP Unavailable [phone] Jose Delgado MD Unavailable [phone] Encounter Details Date Type Department Care Team Description 10/30/2021 Release of Information Medical Records [address] [place] [id number] [place] [address] Social History Tobacco Use Types Packs/Day Years [...] In the last 10 days, have yo mina been in contact with someone who was confirmed or suspected to have Coronavirus/COVID-19? No / Unsure 10/29/2021 11:23 AM EDT documented as of this encounter Plan of Treatment Not on file documented as of this encounter Visit Diagnoses Not on filedocumented in this encounter Care Teams Commercial Instructor Supervisor Relationship Specialty Start Date End Date Loreta Bhagat MD [address] [place] [address] PCP - General Internal Medicine 09/01/21 Stephan Mejia MD Peach Grower Cardiovascular Disease 07/30/21 4 Cyndy Jama NP [address] [place] [address] Nurse Practitioner Cardiology 07/23/22 Jose Delgado MD [address] [place] [address] [address] [place] [address] Peach Grower Cardiovascular Disease 04/24/24 documented as of this encounter
--- OUTSIDE RECORDS SUMMARY | 2024-09-12 15:48 | XMS_ITS | Encounter Summary ---
Author Organization [employer] [facility] Address [address] [place] [address] Care Team Providers Care Structures Assembler Name Role Phone Maryjo Reina DO Primary Care Pro vider Unavailable Marisol Valencia PA-C Primary Care Provider U Stephan Muñoz MD Unavailable Unavailable Loreta Bhagat MD Primary Care Provider [phone] Cyndy Jama NP Unavailable [phone] Jose Delgado MD Unavailable [phone] Encounter Details Date Type Department Care Team Description 05/08/2020 Computer Tech Report Medical Records [address] [place] [address] Devan Allen MD Social History Tobacco Use Types Packs/Day [...] Exposure Response Date Recorded In the last month, have you been in contact with someone who was confirmed or suspected to have Coronavirus / COVID-19? No / Unsure 04/19/2020 10:32 AM EDT documented as of this encounter Plan of Treatment Not on file documented as of this encounter Visit Diagnoses Not on filedocumented in this encounter Care Teams Structures Assembler Relationship Specialty Start Date End Date Maryjo Reina DO PCP - General Internal Medicine 07/05/13 07/23/21 Marisol Valencia PA-C PCP - General Internal Medicine 07/24/21 08/31/21 Loreta Bhagat MD [address] [place] [address] PCP - General Internal Medicine 09/01/21 Stephan Mejia MD Global Director Air And Climate Change Cardiovascular Disease 07/30/21 4 Cyndy Jama NP [address] [place] [address] Nurse Practitioner Cardiology 07/23/22 Jose Delgado MD [address] [place] [address] [address] [place] [address] Global Director Air And Climate Change Cardiovascular Disease 04/24/24 documented as of this encounter
--- OUTSIDE RECORDS SUMMARY | 2024-09-12 15:48 | XMS_ITS | Encounter Summary ---
Author Organization [facility] Address [address] [place] [address] Care Team Providers Care Hims Coder Name Role Phone Stephan Mejia MD Unavailable Unavailable Loreta Bhagat MD Primary Care Provider [phone] Cyndy Jama NP Unavailable [phone] Jose Delgado MD Unavailable [phone] Encounter Details Date Type Department Care Team Description 11/25/2022 SCAN Medical Records [address] [place] [address] Abstract, Provider Social History Tobacco Use Types [...] suspected to have Coronavirus/COVID-19? No / Unsure 10/28/2022 1:11 PM EDT documented as of this encounter Plan of Treatment Not on file documented as of this encounter Visit Diagnoses Not on filedocumented in this encounter Care Teams Hims Coder Relationship Specialty Start Date End Date Loreta Bhagat MD [address] [place] [address] PCP - General Internal Medicine 09/01/21 Stephan Mejia MD Bread Oven Operator Cardiovascular Disease 07/30/21 4 Cyndy Jama NP [address] [place] [address] Nurse Practitioner Cardiology 07/23/22 Jose Delgado MD [address] [place] [address] [place] [address] Bread Oven Operator Cardiovascular Disease 04/24/24 documented as of this encounter
--- OUTSIDE RECORDS SUMMARY | 2024-09-12 15:48 | XMS_ITS | Encounter Summary ---
Author Organization [facility] Address [address] [place] [address] Care Team Providers Care Vacuum Bottle Assembler Name Role Phone Maryjo Reina DO Primary Care Pro vider Unavailable Marisol Valencia PA-C Primary Care Provider U Stephan Muñoz MD Unavailable Unavailable Loreta Bhagat MD Primary Care Provider [phone] Cyndy Jama NP Unavailable [phone] Jose Delgado MD Unavailable [phone] Encounter Details Date Type Department Care Team Description 03/16/2014 Equity Research Associate Report Medical Records [address] [place] [address] Lanre Tanner, DPM Social History Tobacco Use [...] on filedocumented in this encounter Care Teams Vacuum Bottle Assembler Relationship Specialty Start Date End Date Maryjo Reina DO PCP - General Internal Medicine 07/05/13 07/23/21 Marisol Valencia PA-C PCP - General Internal Medicine 07/24/21 08/31/21 Loreta Bhagat MD [address] [place] [address] PCP - General Internal Medicine 09/01/21 Stephan Mejia MD Storeroom Supervisor Cardiovascular Disease 07/30/21 4 Cyndy Jama NP [address] [place] [address] Nurse Practitioner Cardiology 07/23/22 Jose Delgado MD [address] [place] [address] DR[address] [place] [address] Storeroom Supervisor Cardiovascular Disease 04/24/24 documented as of this encounter
--- OUTSIDE RECORDS SUMMARY | 2024-09-12 15:48 | XMS_ITS | Encounter Summary ---
Author Organization [facility] Address [address] [place] [address] Care Team Providers Care Shoulder Boner Name Role Phone Stephan Mejia MD Unavailable Unavailable Loreta Bhagat MD Primary Care Provider [phone] Cyndy Jama NP Unavailable [phone] Jose Delgado MD Unavailable [phone] Encounter Details Date Type Department Care Team Description 09/04/2022 Hospital Medical Records [address] [place] [address] Social History Tobacco Use Types Packs/Day Years [...] on filedocumented in this encounter Care Teams Shoulder Boner Relationship Specialty Start Date End Date Loreta Bhagat MD [address] [place] [address] [phone] PCP - General Internal Medicine 09/01/21 Stephan Mejia MD Tissue Inserter Cardiovascular Disease 07/30/21 4 Cyndy Jama NP 4 [place] [address] Nurse Practitioner Cardiology 07/23/22 Jose Delgado MD [address] [place] [address] [address] [place] [address] Tissue Inserter Cardiovascular Disease 04/24/24 documented as of this encounter
--- OUTSIDE RECORDS SUMMARY | 2024-09-12 15:48 | XMS_ITS | Encounter Summary ---
Author Organization [facility] Address [address] [place] [address] Care Team Providers Care Pet Ambassador Name Role Phone Stephan Mejia MD Unavailable Unavailable Loreta Bhagat MD Primary Care Provider [phone] Cyndy Jama NP Unavailable [phone] Jose Delgado MD Unavailable [phone] Reason for Visit * Reason Onset Date Comments Medication 01/30/2022 Encounter Details Date Type Department Care Team Description 01/30/2022 Refill Gastroenterology - [place] [address] [facility] [address] [place] [address] Roxanne Joseph MD Medication Social [...] on filedocumented in this encounter Care Teams Pet Ambassador Relationship Specialty Start Date End Date Loreta Bhagat MD [address] [place] [address] PCP - General Internal Medicine 09/01/21 Stephan Mejia MD Technical Buyer Cardiovascular Disease 07/30/21 4 Cyndy Jama NP [address] [place] [address] Nurse Practitioner Cardiology 07/23/22 Jose Delgado MD [address] [place] [address] [place] [address] Technical Buyer Cardiovascular Disease 04/24/24 documented as of this encounter
--- OUTSIDE RECORDS SUMMARY | 2024-09-12 15:48 | XMS_ITS | Encounter Summary ---
Author Organization [facility] Address [address] [place] [address] Care Team Providers Care Roentgenologist Name Role Phone Maryjo Reina DO Primary Care Pro vider Unavailable Marisol Valencia PA-C Primary Care Provider U Stephan Muñoz MD Unavailable Unavailable Loreta Bhagat MD Primary Care Provider [phone] Cyndy Jama NP Unavailable [phone] Jose Delgado MD Unavailable [phone] Encounter Details Date Type Department Care Team Description 09/07/2013 Catering Associate Report Medical Records [address] [place] [address] Joan Reilly MD Social History Tobacco Use Types Packs/Day [...] on filedocumented in this encounter Care Teams Roentgenologist Relationship Specialty Start Date End Date Maryjo Reina DO PCP - General Internal Medicine 11/27/13 12/15/21 Marisol Valencia PA-C PCP - General Internal Medicine 07/24/21 08/31/21 Loreta Bhagat MD [address] [place] [address] PCP - General Internal Medicine 09/01/21 Stephan Mejia MD Soda Fountain Clerk Cardiovascular Disease 07/30/21 4 Cyndy Jama NP [address] [place] [address] Nurse Practitioner Cardiology 07/23/22 Jose Delgado MD [address] [place] [address] [address] [place] [address] Soda Fountain Clerk Cardiovascular Disease 04/24/24 documented as of this encounter
--- OUTSIDE RECORDS SUMMARY | 2024-09-12 15:48 | XMS_ITS | Encounter Summary ---
Author Organization [facility] Address [address] [place] [address] Care Team Providers Care Assignment Desk Assistant Name Role Phone Stephan Mejia MD Unavailable Unavailable Loreta Bhagat MD Primary Care Provider [phone] Cyndy Jama NP Unavailable [phone] Jose Delgado MD Unavailable [phone] Reason for Visit * Reason Comments E-prescribe Rx Request Encounter Details Date Type Department Care Team Description 02/25/2023 Refill Adult Medicine [address] [phone] Loreta Bhagat MD [address] [place] [address] [phone] E-prescribe Rx Request Social History Tobacco Use [...] suspected to have Coronavirus/COVID-19? No / Unsure 02/16/2023 1:30 PM EDT documented as of this encounter Miscellaneous Notes * Telephone Encounter - Clau Gates - 02/26/2023 10:03 AM EDT Faxed to pharmacy * Telephone Encounter - Diane Zapata M.A. - 02/25/2023 2:43 PM EDT Lab Results Component Value Date NA 139 04/24/2022 K 4.5 04/24/2022 CO2 31 04/24/2022 CL 104 04/24/2022 BUN 22 04/24/2022 CREAT 1.69 04/24/2022 GLU 95 04/24/2022 CA 9.5 04/24/2022 GFR 41 04/24/2022 Pending appt 06/01/23 Last appt 12/21/22 * Telephone Encounter - Delma Mccurdy - 02/25/2023 2:13 PM EDT Patient would like script to be: E-PRESCRIBED/FAXED TO PHARMACY WHEN WAS THE PATIENT'S LAST APPOINTMENT IN ADULT MEDICINE? 12/21/2022 WHEN WAS THE LAST TIME THE PATIENT SAW THEIR PCP? 12/21/22 Does patient have an upcoming appointment? Yes 10/28/22 (THE MEDICATION REQUESTED IS ON THE MED [...] N/A Patients current insurance carrier is: Payor: [facility] / Plan: [facility] / Product Type: MEDICAID RISK documented in this encounter Plan of Treatment Not on file documented as of this encounter Visit Diagnoses Not on filedocumented in this encounter Care Teams Assignment Desk Assistant Relationship Specialty Start Date End Date Loreta Bhagat MD [address] [place] [address] PCP - General Internal Medicine 09/01/21 Stephan Mejia MD Custom Shoemaker Cardiovascular Disease 07/30/21 4 Cyndy Jama NP [address] [place] [address] Nurse Practitioner Cardiology 07/23/22 Jose Delgado MD [address] [place] [address] [place] [address] Custom Shoemaker Cardiovascular Disease 04/24/24 documented as of this encounter
--- OUTSIDE RECORDS SUMMARY | 2024-09-12 15:48 | XMS_ITS | Encounter Summary ---
Author Organization [facility] Address [address] [place] [address] Care Team Providers Care Dress Designer Name Role Phone Maryjo Reina DO Primary Care Pro vider Unavailable Marisol Valencia PA-C Primary Care Provider U Stephan Muñoz MD Unavailable Unavailable Loreta Bhagat MD Primary Care Provider [phone] Cyndy Jama NP Unavailable [phone] Jose Delgado MD Unavailable [phone] Reason for Referral * Specialist (Routine) - Authorized/Booked Specialty Diagnoses / Procedures Referred By Sintia cruz Referred To Contact Pulmonology Procedures REFERRAL TO PULMONOLOGY Maryjo Reina DO [address] [place] [address] Pulms/[address] [address] Referral ID Status Reason Start Date Expiration Date V isits Requested Visits Authorized NOT REQUIRED Authorized/ Booked 03/05/2014 03/05/2015 1 1 Encounter Details Date Type Department Care Team Description 03/05/2014 Orders Only Adult Medicine [facility] [address] [place] [address] Maryjo Reina DO Pulmonary nodule (Primary Dx) Social History Tobacco Use Types Packs/Day Years [...] as of this encounter Visit Diagnoses Diagnosis Pulmonary nodule- Primary Solitary pulmonary nodule documented in this encounter Care Teams Dress Designer Relationship Specialty Start Date End Date Maryjo Reina DO PCP - General Internal Medicine 07/05/13 07/23/21 Marisol Valencia PA-C PCP - General Internal Medicine 07/24/21 08/31/21 Loreta Bhagat MD [address] [place] [address] PCP - General Internal Medicine 09/01/21 Stephan Mejia MD Armor Officer Cardiovascular Disease 07/30/21 4 Cyndy Jama NP [address] [place] [address] Nurse Practitioner Cardiology 07/23/22 Jose Delgado MD [address] [place] [address] [place] [address] Armor Officer Cardiovascular Disease 04/24/24 documented as of this encounter
--- OUTSIDE RECORDS SUMMARY | 2024-09-12 15:48 | XMS_ITS | Encounter Summary ---
Author Organization [employer] [facility] Address [address] [place] [address] Care Team Providers Care Human Factors Specialist Name Role Phone Maryjo Reina DO Primary Care Pro vider Unavailable Marisol Valencia PA-C Primary Care Provider U Stephan Muñoz MD Unavailable Unavailable Loreta Bhagat MD Primary Care Provider [phone] Cyndy Jama NP Unavailable [phone] Jose Delgado MD Unavailable [phone] Encounter Details Date Type Department Care Team Description 01/06/2019 Transfer Records Medical Records [address] [place] [address] Social History Tobacco Use Types Packs/Day Years [...] on filedocumented in this encounter Care Teams Human Factors Specialist Relationship Specialty Start Date End Date Maryjo Reina DO PCP - General Internal Medicine 07/05/13 07/23/21 Marisol Valencia PA-C PCP - General Internal Medicine 07/24/21 08/31/21 Loreta Bhagat MD [address] [place] [address] PCP - General Internal Medicine 09/01/21 Stephan Mejia MD O And M Supervisor Cardiovascular Disease 07/30/21 4 Cyndy Jama NP [address] [place] [address] Nurse Practitioner Cardiology 07/23/22 Jose Delgado MD [address] [place] [address] [place] [address] O And M Supervisor Cardiovascular Disease 04/24/24 documented as of this encounter
--- OUTSIDE RECORDS SUMMARY | 2024-09-12 15:48 | XMS_ITS | Encounter Summary ---
Author Organization [email or web address] [facility] Address [address] [place] [address] Care Team Providers Care Restaurant Greeter Name Role Phone Maryjo Reina DO Primary Care Pro vider Unavailable Marisol Valencia PA-C Primary Care Provider U Stephan Muñoz MD Unavailable Unavailable Loreta Bhagat MD Primary Care Provider [phone] Cyndy Jama NP Unavailable [phone] Jose Delgado MD Unavailable [phone] Encounter Details Date Type Department Care Team Description 05/02/2020 Construction Assistant Report Medical Records [address] [place] [address] [employer] Social History Tobacco Use Types Packs/Day Years [...] on filedocumented in this encounter Care Teams Restaurant Greeter Relationship Specialty Start Date End Date Maryjo Reina DO PCP - General Internal Medicine 07/05/13 07/23/21 Marisol Valencia PA-C PCP - General Internal Medicine 07/24/21 08/31/21 Loreta Bhagat MD [address] [place] [address] PCP - General Internal Medicine 09/01/21 Stephan Mejia MD Golf Ball Inspector Cardiovascular Disease 07/30/21 4 Cyndy Jama NP [address] [place] [address] Nurse Practitioner Cardiology 07/23/22 Jose Delgado MD [address] [place] [address] [place] [address] Golf Ball Inspector Cardiovascular Disease 04/24/24 documented as of this encounter
--- OUTSIDE RECORDS SUMMARY | 2024-09-12 15:48 | XMS_ITS | Encounter Summary ---
Author Organization [employer] [facility] Address [address] [place] [address] Care Team Providers Care Rn Community Name Role Phone Maryjo Reina DO Primary Care Pro vider Unavailable Marisol Valencia PA-C Primary Care Provider U Stephan Muñoz MD Unavailable Unavailable Loreta Bhagat MD Primary Care Provider [phone] Cyndy Jama NP Unavailable [phone] Jose Delgado MD Unavailable [phone] Encounter Details Date Type Department Care Team Description 07/24/2019 Pretzel Cooker Report Medical Records [address] [place] [address] Abstract, Provider Social History Tobacco Use Types [...] on filedocumented in this encounter Care Teams Rn Community Relationship Specialty Start Date End Date Maryjo Reina, DO PCP - General Internal Medicine 07/05/13 07/23/21 Marisol Valencia PA-C PCP - General Internal Medicine 07/24/21 08/31/21 Loreta Bhagat MD [address] [place] [address] PCP - General Internal Medicine 09/01/21 Stephan Mejia MD Grades 1 Thru 5 Teacher Cardiovascular Disease 07/30/21 4 Cyndy Jama NP [address] [place] [address] Nurse Practitioner Cardiology 07/23/22 Jose Delgado MD [address] [place] [address] [place] [address] Grades 1 Thru 5 Teacher Cardiovascular Disease 04/24/24 documented as of this encounter
--- OUTSIDE RECORDS SUMMARY | 2024-09-12 15:48 | XMS_ITS | Encounter Summary ---
Author Organization [facility] Address [address] [place] [address] Care Team Providers Care Otr Owner Operator Name Role Phone Stephan Mejia MD Unavailable Unavailable Loreta Bhagat MD Primary Care Provider [phone] Cyndy Jama NP Unavailable [phone] Jose Delgado MD Unavailable [phone] Reason for Visit * Reason Onset Date Comments Call From Correction 10/29/2022 Encounter Details Date Type Department Care Team Description 10/29/2022 Telephone Adult Medicine [address] [phone] Loreta Bhagat MD [address] [place] [address] [phone] Call From Correction Social History Tobacco Use Types Packs/Day Years [...] encounter Miscellaneous Notes * Telephone Encounter - Rene Viola L.P.N. - 11/05/2022 12:49 PM EDT No call returned Encounter closed * Telephone Encounter - López Viola L.P.N. - 10/29/2022 3:26 PM EDT Call 2 left message for Estee to call me please pass this call to me at [phone] * Telephone Encounter - López Viola L.P.N. - 10/29/2022 11:30 AM EDT Called left a message for [facility] care to call me Please pass this call to me at EX [phone] * Telephone Encounter - Ruy Hines - 10/29/2022 11:11 AM EDT Estee from [facility] in [place] is calling to request that we fax the office notes from the patient's visit yesterday on 10/28/[address] Loreta Bhagat to them at fax # [phone]. documented in this encounter Plan of Treatment Not on file documented as of this encounter Visit Diagnoses Not on filedocumented in this encounter Care Teams Otr Owner Operator Relationship Specialty Start Date End Date Loreta Bhagat MD [address] [place] [address] PCP - General Internal Medicine 09/01/21 Stephan Mejia MD Automobile Inspector Cardiovascular Disease 07/30/21 4 Cyndy Jama NP [address] [place] [address] Nurse Practitioner Cardiology 07/23/22 Jose Delgado MD [address] [place] [address] [address] [place] [address] Automobile Inspector Cardiovascular Disease 04/24/24 documented as of this encounter
--- OUTSIDE RECORDS SUMMARY | 2024-09-12 15:48 | XMS_ITS | Encounter Summary ---
Author Organization [facility] Address [address] [place] [address] Care Team Providers Care Solder Technician Name Role Phone Maryjo Reina DO Primary Care Pro vider Unavailable Marisol Valencia PA-C Primary Care Provider U Stephan Muñoz MD Unavailable Unavailable Loreta Bhagat MD Primary Care Provider [phone] Cyndy Jama NP Unavailable [phone] Jose Delgado MD Unavailable [phone] Encounter Details Date Type Department Care Team Description 01/26/2019 Telephone Pulmonology - [place] [address] [facility] [address] [place] [address] Jorge Brooks MD Social History Tobacco Use [...] encounter Miscellaneous Notes * Telephone Encounter - Jorge Brooks MD - 02/01/2019 8:36 AM EDT He already had full PFts here 10/2018. * Telephone Encounter - Bekah Todd - 01/26/2019 11:53 AM EDT Yamileth from [facility] Pulmonology dept its calling again she did receive the fax however they need the whole PFT per insurance documented in this encounter Plan of Treatment Not on file documented as of this encounter Visit Diagnoses Not on filedocumented in this encounter Care Teams Solder Technician Relationship Specialty Start Date End Date Maryjo Reina DO PCP - General Internal Medicine 07/05/13 07/23/21 Marisol Valencia PA-C PCP - General Internal Medicine 07/24/21 08/31/21 Loreta Bhagat MD [address] [place] [address] PCP - General Internal Medicine 09/01/21 Stephan Mejia MD Agriculture Specialist Cardiovascular Disease 07/30/21 4 Cyndy Jama NP [address] [place] [address] Nurse Practitioner Cardiology 07/23/22 Jose Delgado MD [address] [place] [address] [place] [address] Agriculture Specialist Cardiovascular Disease 04/24/24 documented as of this encounter
--- OUTSIDE RECORDS SUMMARY | 2024-09-12 15:48 | XMS_ITS | Encounter Summary ---
Author Organization [employer] [facility] Address [address] [place] [address] Care Team Providers Care Trace Clerk Name Role Phone Maryjo Reina DO Primary Care Pro vider Unavailable Marisol Valencia PA-C Primary Care Provider Stephan Carson MD Unavailable Unavailable Loreta Bhagat MD Primary Care Provider [phone] Cyndy Jama NP Unavailable [phone] Jose Delgado MD Unavailable [phone] Reason for Visit * Reason Onset Date Comments PT-1 10/27/2018 Encounter Details Date Type Department Care Team Description 10/27/2018 Telephone Adult Medicine [address] [address] Maryjo Reina DO PT-1 Social History Tobacco [...] Telephone Encounter - Latiana Keegan M.A. - 11/06/2018 1:44 PM EDT Tracking #[id number] * Telephone Encounter - Bhupinder Tapia - 11/04/2018 10:22 AM EDT Apologies, correct MH number: [id number] * Telephone Encounter - Jasmyn Allison M.A. - 10/29/2018 3:24 PM EDT Please obtain correct MH #, thank you. * Telephone Encounter - Bhupinder Tapia - 10/27/2018 11:28 AM EDT 12/14/17 [facility] [place] will now be included in this workflow: Verify and document patients [place] Health insurance ID # (NOT [facility] ID): [id number] Payor: [employer] FFS / Plan: [employer] / Product Type: MEDICAID RISK Patient mailing address: [address] [place] [address] Pt. demographics verified? YES If not accurate, update registration. Is this a NEW request or a RENEWAL? new [facility] Name (first & last) of treating provider? required : Ning Donato (npi: [id number]) What is the medical reason why the patient is seeing the above provider? Substance abuse Address/Zip code for treating provider: [address] [place] [address] Phone # for treating provider: [phone] Is the provider in the [facility] network (do they accept [place] Health insurance)? YES What specialtly is this provider? Behavioral health When is the visit scheduled for? 11/03/18 How often you will be seeing this particular provider? Once every week Do you have friends or family who can transport you to this visit? NO If yes, do not complete request. Is there anything stopping you from using public transportation? If yes, explain. : YES Is there a medical reason (diagnosis) why you are unable to use public transportation? If yes, explain: yes - COPD Do you need a wheelchair van? NO Do you need an escort to accompany you? If yes, explain why. NO Will you have an alternative pick-up address? NO Do you have a service animal? NO PT DOES NOT NEED RELEASE OF INFORMATION SIGNED documented in this encounter Plan of Treatment Not on file documented as of this encounter Visit Diagnoses Not on filedocumented in this encounter Care Teams Trace Clerk Relationship Specialty Start Date End Date Maryjo Reina DO PCP - General Internal Medicine 07/05/13 07/23/21 Marisol Valencia PA-C PCP - General Internal Medicine 07/24/21 08/31/21 Loreta Bhagat MD [address] [place] [address] PCP - General Internal Medicine 09/01/21 Stephan Mejia MD Loom Blower Cardiovascular Disease 07/30/21 4 Cyndy Jama NP [address] [place] [address] Nurse Practitioner Cardiology 07/23/22 Jose Delgado MD [address] [place] [address] DR[address] [place] [address] Loom Blower Cardiovascular Disease 04/24/24 documented as of this encounter
--- OUTSIDE RECORDS SUMMARY | 2024-09-12 15:49 | XMS_ITS | Encounter Summary ---
Author Organization [facility] Address [address] [place] [address] Care Team Providers Care Business Intelligence Analyst Name Role Phone Stephan Meija MD Unavailable Unavailable Loreta Bhagat MD Primary Care Provider [phone] Cyndy Jama NP Unavailable [phone] Jose Delgdao MD Unavailable [phone] Reason for Visit * Reason Onset Date Comments Error 03/11/2023 Encounter Details Date Type Department Care Team Description 03/11/2023 Refill Adult Medicine [address] [phone] Loreta Bhagat MD [address] [place] [address] [phone] Error Social History Tobacco Use Types Packs/Day Years [...] on filedocumented in this encounter Care Teams Business Intelligence Analyst Relationship Specialty Start Date End Date Loreta Bhagat MD [address] [place] [address] PCP - General Internal Medicine 09/01/21 Stephan Mejia MD Anodic Treater Cardiovascular Disease 07/30/21 4 Cyndy Jama NP [address] [place] [address] Nurse Practitioner Cardiology 07/23/22 Jose Delgado MD [address] [place] [address] [address] [place] [address] Anodic Treater Cardiovascular Disease 04/24/24 documented as of this encounter
--- OUTSIDE RECORDS SUMMARY | 2024-09-12 15:49 | XMS_ITS | Clinical Summary ---
Author Organization [facility] Address [address] [facility] [address] Phone Care Team Providers Care Migratory Worker Name Role Phone Loreta Bhagat MD Primary Care Provider [phone] Allergies No known active allergies Medications Medication [...] the medical therapy that was instituted by [facility] heart failure clinic has not been reinstated. [...] Type Department Care Team Description 07/24/[address] [facility] [address] [place] [address] Cyndy Jama NP No Call [...] PLUG/STOP-CUFFLESS TRACH TUBE OTHER SURGICAL HISTORY PROCEDURE: [place] EGD PERCUTANEOUS PLACEMENT GASTROSTOMY TUBE CATARACT EXTRACTION [...] u tox pos 01/18/14 at [facility] Polysubstance abuse ([facility]/HCC) DX :Polysubstance abuse (HCC); COMMENT: u tox pos 01/18/14 at [facility] Pulmonary nodules 06/16/2018 DX:Pulmonary n odules Non-healing [...] Results * Annual BMP Blood Test (02/13/2024) [facility] Annual BMP Blood Test Abstracted Historical Provider MD TAINA SHELL E * Lipid panel (09/14/2023) [facility] LDL/HDL Ratio 2 0 - 4 Triglycerides 66 0 - 150 mg/dL Cholesterol 113 0 - 200 mg/dL HDL 57 40 mg/dL LDL Cholesterol 43 0 - 100 mg/dL Blood Venous blood specimen / Unknown Historical Provider LAB BLOOD ORDERAB LES * Depression Screening (12/21/2022) [facility] Depression Screening Abstracted Historical Provider MD TAINA SHELL * Hepatitis C Screening (08/15/2021) [facility] Hepatitis C Screening Abstracted Historical Provider MD TAINA SHELL E * Colonoscopy (07/18/2014) [facility] Colonoscopy No interpretation with ,abstracted Anatomical Region Laterality Modality Other Historical Provider MD TAINA Peña from Last 3 Months or Most Recently Relevant to Health Maintenance Advance Directives Documents on File Type Date Recorded Patient Shipping Lead Expl anation Health Care Decision (hx) 11/13/2015 AD BAUGH DIRECTIVE Health Care Decision (hx) 11/13/2015 AD BAUHG DIRECTIVE Health Care Decision (hx) 11/13/2015 AD [...] (hx) 11/03/2015 AD BAUGH DIRECTIVE Care Teams Migratory Worker Relationship Specialty Start Date End Date Loreta Bhagat MD [address] [place] [address] PCP - General Internal Medicine 09/01/21
--- OUTSIDE RECORDS SUMMARY | 2024-09-12 15:49 | XMS_ITS | Clinical Summary ---
Author Organization [facility], Address [address] [place] [address] [place] [address] Phone Care Team Providers Care Ranch Supervisor Name Role Phone Loreta Bhagat MD Primary Care Provider [phone] Allergies No known active allergies Medications aspirin [...] day if needed Active epoetin kellen (EPOGEN,PROCRIT) 43191 UNIT/ML injectionIndicat ions:Anemia due to Renal Failure [...] Visit [facility], [address] [place] [address] Ruy Mack DO Chronic kidney disease, stage 4 (severe) (HCC) (Primary Dx); Chronic systolic heart failure (HCC); Other specified chronic obstructive pulmonary disease (HCC) 07/07/2024 Documentation Only [facility] [address] [place] [address] Ruy Mack DO 07/07/2024 Documentation Only [facility] [address] [place] [address] Ruy Mack DO from Last [...] Visit [facility] [address] [place] [address] Ruy Mack DO [address] [place] [address] [place] [phone] Health Maintenance Due Date Last Done Comments [...] PPSV23 or PCV20) 09/10/2026 09/10/2021, 12/08/2012 Insurance [facility] MEDICAID [facility] Care Teams Ranch Supervisor Relationship Specialty Start Date End Date Loreta Bhagat MD PCP - General Internal Medicine 10/22/23
--- OUTSIDE RECORDS SUMMARY | 2024-09-12 15:49 | XMS_ITS | Encounter Summary ---
Author Organization [facility] Address [address] [place] [address] Care Team Providers Care Physical Therapy Nurse Name Role Phone Maryjo Reina DO Primary Care Pro vider Unavailable Marisol Valencia PA-C Primary Care Provider U Stephan Muñoz MD Unavailable Unavailable Loreta Bhagat MD Primary Care Provider [phone] Cyndy Jama NP Unavailable [phone] Jose Delgado MD Unavailable [phone] Encounter Details Date Type Department Care Team Description 11/01/2015 Hospital Medical Records [address] [place] [address] Jorge Brooks MD Social History Tobacco Use [...] on filedocumented in this encounter Care Teams Physical Therapy Nurse Relationship Specialty Start Date End Date Maryjo Reina DO PCP - General Internal Medicine 07/05/13 07/23/21 Marisol Valencia PA-C PCP - General Internal Medicine 07/24/21 08/31/21 Loreta Bhagat MD [address] [place] [address] PCP - General Internal Medicine 09/01/21 Stephan Mejia MD Sales Promotion Representative Cardiovascular Disease 07/30/21 4 Cyndy Jama NP [address] [place] [address] Nurse Practitioner Cardiology 07/23/22 Jose Delgado MD [address] [place] [address] DR[address] [place] [address] Sales Promotion Representative Cardiovascular Disease 04/24/24 documented as of this encounter
--- OUTSIDE RECORDS SUMMARY | 2024-09-12 15:49 | XMS_ITS | Encounter Summary ---
Author Organization [facility] Address [address] [place] [address] Care Team Providers Care Pattern Wheel Maker Name Role Phone Siddharth Gardiner MD Primary Care Provider Unav ailable Josiah Reinaabelexie KIM Primary Care Pro vider Unavailable Marisol Valencia PA-C Primary Care Provider U Stephan Muñoz MD Unavailable Unavailable Loreta Bhagat MD Primary Care Provider Cyndy Jama NP Unavailable [phone] Jose Delgado MD Unavailable [phone] Reason for Visit * Reason Onset Date Comments Special Procedure 06/06/2013 colonoscopy Encounter Details Date Type Department Care Team Description 06/06/2013 Telephone Gastroenterology - [address] [id number] Siddharth Gardiner MD Special Procedure (colonoscopy) Social History Tobacco Use Types Packs/Day Years [...] encounter Miscellaneous Notes * Telephone Encounter - Stephani Dinero R.N. - 06/13/2013 11:38 AM EST Called pt- states [facility]---script for Colyte called to them * Telephone Encounter - Stephani Dinero R.N. - 06/12/2013 8:39 AM EST Spoke with patient- states his lab studies are stable and he is not taking any medication for HIV at present- has followed with Dr Villar in Infectious disease -colonoscopy on 06/22 states needs script recalled to pharmacy- [facility] in [place] also no document of visits in [facility] or [place]---no [facility] found in [place]---call to pt -vm message left to call to confirm pharmacy and find name and contact information for infectious disease Called [facility] Infectious disease- pt last seen 12/08/12 they will fax note to us * Telephone Encounter - Angle Silvestre - 06/06/2013 2:11 PM EDT Stephani, patient's appt is coming up on 06/22/13 for colonoscopy. He needs clearance with infectious diseases prior to procedure; according to you. Please look into this, patient has not yet gotten clearance for this test. documented in this encounter Plan of Treatment Not on file documented as of this encounter Visit Diagnoses Not on filedocumented in this encounter Care Teams Pattern Wheel Maker Relationship Specialty Start Date End Date Siddharth Gardiner MD PCP - General Internal Medicine 10/14/12 3 Maryjo Reina DO PCP - General Internal Medicine 07/05/13 07/23/21 Marisol Valencia PA-C PCP - General Internal Medicine 07/24/21 08/31/21 Loreta Bhagat MD [address] [place] [address] PCP - General Internal Medicine 09/01/21 Stephan Mejia MD Confectionery Drops Machine Operator Cardiovascular Disease 07/30/21 4 Cyndy Jama NP [address] [place] [address] Nurse Practitioner Cardiology 07/23/22 Jose Delgado MD [address] [place] [address] [place] [address] Confectionery Drops Machine Operator Cardiovascular Disease 04/24/24 documented as of this encounter
--- OUTSIDE RECORDS SUMMARY | 2024-09-12 15:49 | XMS_ITS | Encounter Summary ---
Author Organization [facility] Address [address] [place] [address] Care Team Providers Care Vacuum Drum Drier Operator Name Role Phone Stephan Mejia MD Unavailable Unavailable Loreta Bhagat MD Primary Care Provider [phone] Cyndy Jama NP Unavailable [phone] Jose Delgado MD Unavailable [phone] Encounter Details Date Type Department Care Team Description 03/26/2023 Hospital Medical Records [address] [place] [address] Social History Tobacco Use Types Packs/Day Years [...] suspected to have Coronavirus/COVID-19? No / Unsure 03/29/2023 12:47 PM EDT documented as of this encounter Plan of Treatment Not on file documented as of this encounter Visit Diagnoses Not on filedocumented in this encounter Care Teams Vacuum Drum Drier Operator Relationship Specialty Start Date End Date Loreta Bhagat MD [address] [place] [address] PCP - General Internal Medicine 09/01/21 Stephan Mejia MD Basin Tender Cardiovascular Disease 07/30/21 4 Cyndy Jama NP [address] [place] [address] Nurse Practitioner Cardiology 07/23/22 Jose Delgado MD [address] [place] [address] [address] [place] [address] Basin Tender Cardiovascular Disease 04/24/24 documented as of this encounter
--- OUTSIDE RECORDS SUMMARY | 2024-09-12 15:49 | XMS_ITS | Encounter Summary ---
Author Organization [facility] Address [address] [place] [address] Care Team Providers Care Doll Wig Hackler Name Role Phone Maryjo Reina DO Primary Care Pro vider Unavailable Marisol Valencia PA-C Primary Care Provider U Stephan Muñoz MD Unavailable Unavailable Loreta Bhagat MD Primary Care Provider [phone] Cyndy Jama NP Unavailable [phone] Jose Delgado MD Unavailable [phone] Encounter Details Date Type Department Care Team Description 12/05/2018 Orders Only Adult Medicine [address] [address] Maryjo Reina DO Polysubstance abuse (HCC) (Primary Dx); Antibody response examination; Screening for endocrine, nutritional, metabolic and immunity disorder Social History Tobacco Use Types Packs/Day Years [...] on file documented as of this encounter Results * HEPATIC FUNCTION (LIVER) PANEL (12/21/2018 2:48 PM EDT) BILIRUBIN DIRECT 0.1 0.0 - 0.3 mg/dL 12/21/2018 6:15 PM EDT [facility] BILIRUBIN INDIRECT 0.2 0.0 - 1.1 mg/dL 12/21/2018 6:15 PM EDT [facility] [employer] 12/21/2018 2:48 PM EDT 12/21/2018 2:48 PM EDT Maryjo Calvo DO LAB [facility] [employer] * (ABNORMAL) CBC (AUTO DIFF PLATELET) (12/21/2018 2:48 PM EDT) Pathologist [facility] WHITE BLOOD COUNT 4.5(L) 4.8 - 10.8 x10-3/uL 12/21/2018 6:21 PM EDT [facility] [employer] RED BLOOD COUNT 4.7 4.5 - 5.5 x10-6/uL 12/21/2018 6:21 PM EDT [facility] Hemoglobin 9.7(L) 13.5 - 17.5 g/dL 12/21/2018 6:21 PM EDT [facility] Hematocrit 32.2(L) 42 - 54 % 12/21/2018 6:21 PM EDT [facility] [employer] MEAN CORPUSCULAR VOLUME 68.7(L) 79 - 98 fL 12/21/2018 6:21 PM EDT [facility] [employer] CORPUSCULAR HEMOGLOBIN 20.7(L) 27 - 32 pg 12/21/2018 6:21 PM EDT [facility] [employer] ME[employer] CORPUSCULAR HGB CONC 30.1(L) 32 - 37 g/dL 12/21/2018 6:21 PM EDT [facility] [employer] RED CELL DISTRIBUTION WIDTH 17.2(H) 11 - 15 % 12/21/2018 6:21 PM EDT [facility] PLT COUNT 166 130 - 400 x10-3/uL 12/21/2018 6:21 PM EDT [facility] NRBC % AUTO 0.0 <1 % 12/21/2018 6:21 PM EDT [facility] NEUTROPHILS % 48.8 % 12/21/2018 6:21 PM EDT [facility] LYMPH % 34.1 % 12/21/2018 6:21 PM EDT [facility] MONO % 14.2 % 12/21/2018 6:21 PM EDT [facility] EOS % 2.0 % 12/21/2018 6:21 PM EDT [facility] BASO % 0.2 % 12/21/2018 6:21 PM EDT [facility] IMMATURE GRANULOCYTES % 0.7 % 12/21/2018 6:21 PM EDT [facility] NRBC # AUTO 0.00 <0.1 x10-3/uL 12/21/2018 6:21 PM EDT [facility] NEUT # 2.21 1.5 - 7.0 x10-3/uL 12/21/2018 6:21 PM EDT [facility] LYMPH # 1.54 1 - 5.0 x10-3/uL 12/21/2018 6:21 PM EDT [facility] MONO # 0.64 0.2 - 1.0 x10-3/uL 12/21/2018 6:21 PM EDT [facility] EOS # 0.09 0 - 0.5 x10-3/uL 12/21/2018 6:21 PM EDT [facility] BASO # 0.01 0 - 0.2 x10-3/uL 12/21/2018 6:21 PM EDT [facility] IMMATURE GRANULOCYTES # 0.03 0 - 0.03 x10-3/uL 12/21/2018 6:21 PM [facility]T [facility] 12/21/2018 2:48 PM EDT 12/21/2018 2:48 PM EDT [facility] Calvo DO [facility] * TREPONEMA ANTIBODY (12/21/2018 2:48 PM EDT) TREPONEMAL AB NEGATIVE NEGATIVE 12/21/2018 6:37 PM EDT [facility] 12/21/2018 2:48 PM EDT 12/21/2018 2:48 PM EDT Maryjo Calvo DO LAB [facility] * HEPATITIS B SURFACE AB TEST (12/21/2018 2:48 PM EDT) Hepatitis B surface antibody NEGATIVE NEGATIVE 12/21/2018 6:24 PM EDT [facility] 12/21/2018 2:48 PM EDT 12/21/2018 2:48 PM EDT Maryjo Calvo DO LAB [facility] documented in this encounter Visit Diagnoses Diagnosis Polysubstance abuse (HCC)- Primary Other, mixed, or unspecified nondependent drug abuse, unspecified Antibody response examination Screening for endocrine, nutritional, metabolic and immunity disorder Screening for other and unspecified endocrine, nutritional, metabolic, and immunity disorders documented in this encounter Care Teams Doll Wig Hackler Relationship Specialty Start Date End Date Maryjo Reina DO PCP - General Internal Medicine 07/05/13 07/23/21 Marisol Valencia PA-C PCP - General Internal Medicine 07/24/21 08/31/21 Loreta Bhagat MD [address] [place] [address] PCP - General Internal Medicine 09/01/21 Stephan Mejia MD Electrical Electronics Technician Cardiovascular Disease 07/30/21 4 Cyndy Jama NP [address] [place] [address] Nurse Practitioner Cardiology 07/23/22 Jose Delgado MD [address] [place] [address] [address] [place] [address] Electrical Electronics Technician Cardiovascular Disease 04/24/24 documented as of this encounter
--- OUTSIDE RECORDS SUMMARY | 2024-09-12 15:49 | XMS_ITS | Encounter Summary ---
Author Organization [facility] Address [address] [place] [address] Phone Care Team Providers Care Senior International Tax Manager Name Role Phone Loreta Bhagat MD Primary Care Provider [phone] Encounter Details Date Type Department Care Team (Late st Contact Info) Description 04/18/2024 Documentation Only [facility] [address] [place] [address] [place] [address] [place] [phone] Social History Tobacco Use Types Packs/Day Years [...] Visit [facility] [address] [place] [address] Ruy Mack DO [address] [facility] [address] [place]cel[place] [address] documented as of this encounter Visit Diagnoses Not on filedocumented in this encounter Care Teams Senior International Tax Manager Relationship Specialty Start Date End Date Loreta Bhagat MD PCP - General Internal Medicine 10/22/23 documented as of this encounter
--- OUTSIDE RECORDS SUMMARY | 2024-09-12 15:49 | XMS_ITS | Encounter Summary ---
Author Organization [facility] Address [address] [place] [address] Care Team Providers Care Gaming Dealer Name Role Phone Maryjo Reina DO Primary Care Pro vider Unavailable Marisol Valencia PA-C Primary Care Provider Stephan Carson MD Unavailable Unavailable Loreta Bhagat MD Primary Care Provider Cyndy Jama NP Unavailable Jose Delgado MD Unavailable [phone] Reason for Visit * Reason Onset Date Comments Prior Authorization 07/05/2013 Encounter Details Date Type Department Care Team Description 07/05/2013 Refill Adult Medicine [address] [address] Maryjo Reina DO Prior Authorization Social History Tobacco Use Types Packs/Day Years [...] encounter Miscellaneous Notes * Telephone Encounter - Dee Nolen L.PPingN. - 07/05/2013 4:[address] Kirkpatrick,pt's insurance requires pt to first try loraqtadine. Please consider changing to this. * Telephone Encounter - Madeline Lynn Tracie - 07/05/2013 2:56 PM EST Pre Authorization for Medication Does the patient already have this medication?NO Name of Medication ZYRTEC ALLERGY 10 MG CAPS Dose of Medication ZYRTEC ALLERGY 10 MG CAPS How does patient take this med? 1 QD What other dosage or similar medication have you tried in the past for this problem UNKNOWN Patients current medical insurance Payor: [employer] Plan: [employer] $0 Runscope [id number] Product Type: MEDICAID RISK What Prescription Plan does the patient have? Prescription Plan Tel # from back of prescription ID card [id number] What is the patients Prescription Plan ID #? [id number] What Pharmacy [facility] the [facility] use[facility] Payor: [employer] Plan: [employer] $0 Runscope [id number] Product Type: MEDICAID RISK documented in this encounter Plan of Treatment Not on file documented as of this encounter Visit Diagnoses Not on filedocumented in this encounter Care Teams Gaming Dealer Relationship Specialty Start Date End Date Maryjo Reina DO PCP - General Internal Medicine 07/05/13 07/23/21 Marisol Valencia PA-C PCP - General Internal Medicine 07/24/21 08/31/21 Loreta Bhagat MD [address] [place] [address] PCP - General Internal Medicine 09/01/21 Stephan Mejia MD Steam Fitter Cardiovascular Disease 07/30/21 4 Cyndy Jama NP [address] [place] [address] Nurse Practitioner Cardiology 07/23/22 Jose Delgado MD [address] [place] [address] [address] [place] [address] Steam Fitter Cardiovascular Disease 04/24/24 documented as of this encounter
--- OUTSIDE RECORDS SUMMARY | 2024-09-12 15:49 | XMS_ITS | Encounter Summary ---
Author Organization [facility] Address [address] [place] [address] Phone Care Team Providers Care Trailhead Construction Worker Name Role Phone Loreta Bhagat MD Primary Care Provider [phone] Encounter Details Date Type Department Care Team (Late st Contact Info) Description 07/07/2024 Documentation Only [facility] [address] [place] [phone] Ruy Mack DO [address] [facility] [place] [phone] Social History Tobacco Use Types Packs/Day Years [...] Visit [facility] [address] [place] [address] Ruy Mack DO [address] [facility] [place] [address] documented as of this encounter Visit Diagnoses Not on filedocumented in this encounter Care Teams Trailhead Construction Worker Relationship Specialty Start Date End Date Loreta Bhagat MD PCP - General Internal Medicine 10/22/23 documented as of this encounter
--- OUTSIDE RECORDS SUMMARY | 2024-09-12 15:49 | XMS_ITS | Encounter Summary ---
Author Organization [facility] Address [address] [place] [address] Care Team Providers Care Aircraft Fuselage Framer Name Role Phone Maryjo Reina DO Primary Care Pro vider Unavailable Marisol Valencia PA-C Primary Care Provider U Stephan Muñoz MD Unavailable Unavailable Loreta Bhagat MD Primary Care Provider [phone] Cyndy Jama NP Unavailable [phone] Jose Delgado MD Unavailable [phone] Encounter Details Date Type Department Care Team Description 10/31/2015 Telephone Adult [address] [address] Maryjo Reina DO Social History Tobacco Use Types Packs/Day Years [...] encounter Miscellaneous Notes * Telephone Encounter - Malik Mccloud - 10/31/2015 2:37 PM EDT 2:[address] scan for follow-up CT from March. Per technology lead- pt with Severe right lateral chest wall pain on arrival and grossly abnormal repeat CXR-- on eval pt with c/o severe right anteriolateral chest wall pain - pt relates + dyspnea- vs 100.4 orally, 130-26-119/76-86% RA---o2 applied to patient at 2lpm via nc-- 2:40-- Dr. Kirkpatrick down to eval pt- 02 increased to 3lpm due to spo2<92% 2:44 VS--110/33-319-77-91-94% 3lpm-- pt continues to relate no improvement in dyspnea and chest wall pain that he rates 05/18 documented in this encounter Plan of Treatment Not on file documented as of this encounter Visit Diagnoses Not on filedocumented in this encounter Care Teams Aircraft Fuselage Framer Relationship Specialty Start Date End Date Maryjo Reina DO PCP - General Internal Medicine 07/05/13 07/23/21 Marisol Valencia PA-C PCP - General Internal Medicine 07/24/21 08/31/21 Loreta Bhagat MD [address] [place] [address] PCP - General Internal Medicine 09/01/21 Stephan Mejia MD Web Developer Cardiovascular Disease 07/30/21 4 Cyndy Jama NP [address] [place] [address] Nurse Practitioner Cardiology 07/23/22 Jose Delgado MD [address] [place] [address] [address] [place] [address] Web Developer Cardiovascular Disease 04/24/24 documented as of this encounter
--- OUTSIDE RECORDS SUMMARY | 2024-09-12 15:49 | XMS_ITS | Encounter Summary ---
Author Organization [facility] Address [address] [place] [address] Care Team Providers Care Architectural Intern Name Role Phone Stephan Mejia MD Unavailable Unavailable Loreta Bhagat MD Primary Care Provider [phone] Cyndy Jama NP Unavailable [phone] Jose Delgado MD Unavailable [phone] Encounter Details Date Type Department Care Team Description 04/24/2022 Digital X Ray Service Engineer Report Medical Records [address] [place] [address] Jorge Brooks MD Social History Tobacco Use [...] suspected to have Coronavirus/COVID-19? No / Unsure 04/24/2022 1:01 PM EDT documented as of this encounter Plan of Treatment Not on file documented as of this encounter Visit Diagnoses Not on filedocumented in this encounter Care Teams Architectural Intern Relationship Specialty Start Date End Date Loreta Bhagat MD [address] [place] [address] PCP - General Internal Medicine 09/01/21 Stephan Mejia MD Ict Sales Representative Cardiovascular Disease 07/30/21 4 Cyndy Jama NP [address] [place] [address] Nurse Practitioner Cardiology 07/23/22 Jose Delgado MD [address] [place] [address] [address] [place] [address] Ict Sales Representative Cardiovascular Disease 04/24/24 documented as of this encounter
--- OUTSIDE RECORDS SUMMARY | 2024-09-12 15:49 | XMS_ITS | Encounter Summary ---
Author Organization [facility] Address [address] [place] [address] Care Team Providers Care Communication And Outreach Manager Name Role Phone Maryjo Reina DO Primary Care Pro vider Unavailable Marisol Valencia PA-C Primary Care Provider Stephan Carson MD Unavailable Unavailable Loreta Bhagat MD Primary Care Provider [phone] Cyndy Jama NP Unavailable [phone] Jose Delgado MD Unavailable Reason for Visit * Reason Onset Date Comments Pulmonary Testing 12/20/2018 Note, Other 12/20/2018 Encounter Details Date Type Department Care Team Description 12/20/2018 Telephone Pulmonology - [place] [address] [place] [address] Jorge Brooks MD Pulmonary Testing; Note, Other Social History Tobacco Use Types Packs/Day Years [...] encounter Miscellaneous Notes * Telephone Encounter - Vicky Ramirez M.A. - 12/20/2018 3:47 PM EDT PFT Faxed to [facility] at [facility]. * Telephone Encounter - Bekah Brooks - 12/20/2018 3:00 PM EDT [facility] its calling they need the whole entired Pft result of the patient documented in this encounter Plan of Treatment Not on file documented as of this encounter Visit Diagnoses Not on filedocumented in this encounter Care Teams Communication And Outreach Manager Relationship Specialty Start Date End Date Maryjo Reina DO PCP - General Internal Medicine 07/05/13 07/23/21 Marisol Valencia PA-C PCP - General Internal Medicine 07/24/21 08/31/21 Loreta Bhagat MD [address] [place] [address] PCP - General Internal Medicine 09/01/21 Stephan Mejia MD Heatset Winder Operator Cardiovascular Disease 07/30/21 4 Cyndy Jama NP [address] [place] [address] Nurse Practitioner Cardiology 07/23/22 Jose Delgado MD [address] [place] [address] [place] [address] Heatset Winder Operator Cardiovascular Disease 04/24/24 documented as of this encounter
--- OUTSIDE RECORDS SUMMARY | 2024-09-12 15:49 | XMS_ITS | Encounter Summary ---
Author Organization [facility] Address [address] [place] [address] Care Team Providers Care Sheltered Workshop Worker Name Role Phone Maryjo Reina DO Primary Care Pro vider Unavailable Marisol ValenciaC Primary Care Provider U Stephan Muñoz MD Unavailable Unavailable Loreta Bhagat MD Primary Care Provider [phone] Cyndy Jama NP Unavailable [phone] Jose Delgado MD Unavailable [phone] Encounter Details Date Type Department Care Team Description 10/31/2015 Hospital Medical Records [address] [place] [address] Earnest Mcclelland PA Social History Tobacco Use Types Packs/Day Years [...] on filedocumented in this encounter Care Teams Sheltered Workshop Worker Relationship Specialty Start Date End Date Maryjo Reina DO PCP - General Internal Medicine 07/05/13 07/23/21 Marisol Valencia PA-C PCP - General Internal Medicine 07/24/21 08/31/21 Loreta Bhagat MD [address] [place] [address] PCP - General Internal Medicine 09/01/21 Stephan Mejia MD Spa Manager Cardiovascular Disease 07/30/21 4 Cyndy Jama NP [address] [place] [address] Nurse Practitioner Cardiology 07/23/22 Jose Delgado MD [address] [place] [address] [address] [place] [address] Spa Manager Cardiovascular Disease 04/24/24 documented as of this encounter
--- OUTSIDE RECORDS SUMMARY | 2024-09-12 15:49 | XMS_ITS | Encounter Summary ---
Author Organization [facility] Address [address] [place] [address] Care Team Providers Care Geospatial Developer Name Role Phone Stephan Mejia MD Unavailable Unavailable Loreta Bhagat MD Primary Care Provider [phone] Cyndy Jama NP Unavailable [phone] Jose Delgado MD Unavailable [phone] Encounter Details Date Type Department Care Team Description 04/30/2023 Telephone Adult Medicine [address] [address] Jewel Diaz PA-C [address] [place] [address] [id number] Social History Tobacco Use Types Packs/Day Years [...] suspected to have Coronavirus/COVID-19? No / Unsure 04/30/2023 2:39 PM EDT documented as of this encounter Miscellaneous Notes * Telephone Encounter - Diane Georges M.A. - 05/03/2023 11:42 AM EDT Request formost recent office note faxed to Dr. Brooks office at Fax# [phone]. * Telephone Encounter - Jewel Diaz PA-C - 04/30/2023 5:40 PM EDT Can we request most recent office notes from [place] pulmonology, Dr. Brooks. documented in this encounter Plan of Treatment Not on file documented as of this encounter Visit Diagnoses Not on filedocumented in this encounter Care Teams Geospatial Developer Relationship Specialty Start Date End Date Loreta Bhagat MD [address] [place] [address] PCP - General Internal Medicine 09/01/21 Stephan Mejia MD Bleach Mixer Cardiovascular Disease 07/30/21 4 Cyndy Jama NP [address] [place] [address] Nurse Practitioner Cardiology 07/23/22 Jose Delgado MD [address] [place] [address] [address] [place] [address] Bleach Mixer Cardiovascular Disease 04/24/24 documented as of this encounter
--- OUTSIDE RECORDS SUMMARY | 2024-09-12 15:49 | XMS_ITS | Encounter Summary ---
Author Organization [facility] Address [address] [place] [address] Care Team Providers Care Casserole Preparer Name Role Phone Stephan Mejia MD Unavailable Unavailable Loreta Bhagat MD Primary Care Provider [phone] Cyndy Jama NP Unavailable [phone] Jose Delgado MD Unavailable [phone] Encounter Details Date Type Department Care Team Description 01/01/2024 Hospital Medical Records [address] [place] [address] [facility] Social History Tobacco Use Types Packs/Day Years [...] on filedocumented in this encounter Care Teams Casserole Preparer Relationship Specialty Start Date End Date Loreta Bhagat MD [address] [place] [address] [phone] PCP - General Internal Medicine 09/01/21 Stephan Mejia MD Inspector Salvage Cardiovascular Disease 07/30/21 4 Cyndy Jama NP [address] [place] [address] Nurse Practitioner Cardiology 07/23/22 Jose Delgado MD [address] [place] [address] [place] [address] Inspector Salvage Cardiovascular Disease 04/24/24 documented as of this encounter
--- OUTSIDE RECORDS SUMMARY | 2024-09-12 15:49 | XMS_ITS | Encounter Summary ---
Author Organization [facility] Address [address] [place] [address] Care Team Providers Care Bobbin Trucker Name Role Phone Stephan Mejia MD Unavailable Unavailable Loreta Bhagat MD Primary Care Provider [phone] Cyndy Jama NP Unavailable [phone] Jose Delgado MD Unavailable [phone] Encounter Details Date Type Department Care Team Description 11/26/2023 Hospital Medical Records [address] [place] [address] [facility] Social History Tobacco Use Types Packs/Day Years [...] on filedocumented in this encounter Care Teams Bobbin Trucker Relationship Specialty Start Date End Date Loreta Bhagat MD [address] [place] [address] [id number] PCP - General Internal Medicine 09/01/21 Stephan Mejia MD Sheet Hanger Cardiovascular Disease 07/30/21 4 Cyndy Jama NP [address] [place] [address] Nurse Practitioner Cardiology 07/23/22 Jose Delgado MD [address] [place] [address] [place] [address] Sheet Hanger Cardiovascular Disease 04/24/24 documented as of this encounter
--- OUTSIDE RECORDS SUMMARY | 2024-09-12 15:49 | XMS_ITS | Encounter Summary ---
Author Organization [employer] [facility] Address [address] [place] [address] Care Team Providers Care Sales Office Administrator Name Role Phone Maryjo Reina DO Primary Care Pro vider Unavailable Marisol Valenica PA-C Primary Care Provider U Stephan Muñoz MD Unavailable Unavailable Loreta Bhagat MD Primary Care Provider [phone] Cyndy Jama NP Unavailable [phone] Jose Delgado MD Unavailable [phone] Encounter Details Date Type Department Care Team Description 11/05/2015 Hospital Medical Records [address] [place] [address] Hilario Mcelroy MD Social History Tobacco Use Types Packs/Day [...] on filedocumented in this encounter Care Teams Sales Office Administrator Relationship Specialty Start Date End Date Maryjo Reina DO PCP - General Internal Medicine 07/05/13 07/23/21 Marisol Valencia PA-C PCP - General Internal Medicine 07/24/21 08/31/21 Loreta Bhagat MD [address] [place] [address] PCP - General Internal Medicine 09/01/21 Stephan Mejia MD College Or University Registrar Cardiovascular Disease 07/30/21 4 Cyndy Jama NP [address] [place] [address] Nurse Practitioner Cardiology 07/23/22 Jose Delgado MD [address] [place] [address] [address] [place] [address] College Or University Registrar Cardiovascular Disease 04/24/24 documented as of this encounter
--- OUTSIDE RECORDS SUMMARY | 2024-09-12 15:49 | XMS_ITS | Encounter Summary ---
Author Organization [facility] Address [address] [place] [address] Care Team Providers Care Cold Mill Inspector Name Role Phone Siddharth Gardiner MD Primary Care Provider Unav ailable Maryjo Reina DO Primary Care Pro vider Unavailable Marisol Valencia PA-C Primary Care Provider U Stephan Muñoz MD Unavailable Unavailable Loreta Bhagat MD Primary Care Provider [phone] Cyndy Jama NP Unavailable [phone] Jose Delgado MD Unavailable [phone] Encounter Details Date Type Department Care Team Description 10/27/2012 Orders Only Adult Medicine [address] [address] Siddharth Gardiner MD Social History Tobacco Use Types Packs/Day [...] on filedocumented in this encounter Care Teams Cold Mill Inspector Relationship Specialty Start Date End Date Siddharth Gardiner MD PCP - General Internal Medicine 10/14/12 3 Maryjo Reina DO PCP - General Internal Medicine 07/05/13 07/23/21 Marisol Valencia PA-C PCP - General Internal Medicine 07/24/21 08/31/21 Loreta Bhagat MD [address] [place] [address] PCP - General Internal Medicine 09/01/21 Stephan Mejia MD Market Stall Vendor Cardiovascular Disease 07/30/21 4 Cyndy Jama NP [address] [place] [address] Nurse Practitioner Cardiology 07/23/22 Jose Delgado MD [address] [place] [address] [address] [place] [address] Market Stall Vendor Cardiovascular Disease 04/24/24 documented as of this encounter
--- OUTSIDE RECORDS SUMMARY | 2024-09-12 15:49 | XMS_ITS | Encounter Summary ---
Author Organization [facility] Address [address] [place] [address] Care Team Providers Care Computer Education Professor Name Role Phone Marisol Valencia PA-C Primary Care Provider U Stephan Muñoz MD Unavailable Unavailable Loreta Bhagat MD Primary Care Provider [phone] Cyndy Jama NP Unavailable [phone] Jose Delgado MD Unavailable [phone] Encounter Details Date Type Department Care Team Description 07/30/2021 Telephone Cardio [facility] [address] [place] [address] Marisol Valencia PA-C Social History Tobacco Use Types Packs/Day [...] have Coronavirus / COVID-19? No / Unsure 07/28/2021 10:54 AM EST documented as of this encounter Plan of Treatment Not on file documented as of this encounter Visit Diagnoses Not on filedocumented in this encounter Care Teams Computer Education Professor Relationship Specialty Start Date End Date Marisol Valencia PA-C PCP - General Internal Medicine 07/24/21 08/31/21 Loreta Bhagat MD [address] [place] [address] PCP - General Internal Medicine 09/01/21 Stephan Mejia MD Surg Physician Asst Cardiovascular Disease 07/30/21 4 Cyndy Jama NP [address] [place] [address] Nurse Practitioner Cardiology 07/23/22 Jose Delgado MD [address] [place] [address] [place] [address] Surg Physician Asst Cardiovascular Disease 04/24/24 documented as of this encounter
--- OUTSIDE RECORDS SUMMARY | 2024-09-12 15:49 | XMS_ITS | Encounter Summary ---
Author Organization [facility] Address [address] [place] [address] Care Team Providers Care Cane Flume Chute Operator Name Role Phone Stephan Mejia MD Unavailable Unavailable Loreta Bhagat MD Primary Care Provider [phone] Cyndy Jama NP Unavailable [phone] Jose Delgado MD Unavailable Encounter Details Date Type Department Care Team Description 12/03/2023 Orders Only Medical Records [address] [place], [place] [address] [place] [address] Social History Tobacco Use Types Packs/Day Years [...] Name Priority Date/Time Associated Diagnosis Comments OUTSIDE PLAIN FILM Routine 10/02/2023 documented in this encounter Results * OUTSIDE PLAIN FILM (10/02/2023) [facility] documented in this encounter Visit Diagnoses Not on filedocumented in this encounter Care Teams Cane Flume Chute Operator Relationship Specialty Start Date End Date Loreta Bhagat MD [address] [place] [address] PCP - General Internal Medicine 09/01/21 Stephan Mejia MD Neon Pumper Cardiovascular Disease 07/30/21 4 Cyndy Jama NP [address] [place] [address] Nurse Practitioner Cardiology 07/23/22 Jose Delgado MD [address] [place] [address] [address] [place] [address] Neon Pumper Cardiovascular Disease 04/24/24 documented as of this encounter
--- OUTSIDE RECORDS SUMMARY | 2024-09-12 15:49 | XMS_ITS | Clinical Summary ---
Author Organization [facility] Address [address] [place] [address] Care Team Providers Care Courtesy Bus Driver Name Role Phone Loreta Bhagat MD Primary Care Provider [phone] Cyndy Jama NP Unavailable [phone] Jose Delgado MD Unavailable [phone] Allergies No known active allergies Medications Medication Sig Dispensed Refills Start Date End Date Status Bictegravir-Emtricitab- Tenofov (BIKTARVY) 50-200-25 MG TabIndications:HIV (human immunodeficiency virus infection) (HCC) Take 1 tablet by mouth daily. 30 Tab 3 01/19/2019 Active Tiotropium [place] Monohydrate (SPIRIVA HANDIHALER IN) Inhale 18 mcg into the lungs daily. 0 Active fluticasone 50 MCG/ACT nasal spray USE 2 SPRAYS IN EACH NOSTRIL TWICE A DAY FOR 1 WEEK THEN USE 1 SPRAY DAILY NEEDED 16 mL 3 12/08/2022 Active Albuterol Sulfate 108 (90 Base) MCG/ACT AEROSOL POWDER,BREATH ACTIVATED Inhale into the lungs. 0 Active pantoprazole (PROTONIX) 40 MG tablet Take 1 Tablet by mouth 2 times daily. 0 01/09/2024 Active polyethylene glycol (GLYCOLAX) 17 g packet 1 Packet by Enteral route daily as needed. 0 12/21/2023 Active guaifenesin (ROBITUSSIN) 100 MG/5ML liquid Take 10 mL by mouth every 4 hours as needed for Cough. 0 01/09/2024 Active aspirin 81 MG EC tablet Take 1 Tablet by mouth daily. 0 04/04/2020 Active ALBUTEROL SULFATE (ProAir HFA) 108 (90 Base) MCG/ACT Aero Soln Inhale 2 Puffs into the lungs every 4 hours as needed for Cough. 0 01/21/2022 Active Epoetin Olivier-epbx (Retacrit) [address] UNIT/ML Solution Inject 20,000 Units into the skin once a week. 0 01/10/2024 Active lamotrigine (LaMICtal) 25 MG tablet Take 1 Tablet by mouth 2 times daily. 0 Active Tiotropium [place] Monohydrate (Spiriva Respimat) 2.5 MCG/ACT Aero Soln Inhale 5 mcg into the lungs daily. 0 02/06/2023 Active acetaminophen (TYLENOL) 500 MG tablet Take 2 Tablets by mouth every 8 hours as needed for Pain. 0 01/09/2024 Active ascorbic acid (VITAMIN C) 250 MG tablet 2 Tablets by Enteral route daily. 0 12/22/2023 Active lamivudine (EPIVIR) 100 MG tablet Take 1 Tablet by mouth daily. 0 01/09/2024 Active oxycodone (ROXICODONE) 5 MG immediate release tablet Take 1 Tablet by mouth every 6 hours as needed. 0 Active Melatonin 3 MG Tab Take 3 Tablets by mouth at bedtime. 0 Active SIMETHICONE-80 OR Take 1 Tablet by mouth every 6 hours as needed. 0 Active Cholecalciferol (Vitamin D3) 25 MCG (1000 UT) Tab Take 2 Tablets by mouth daily. 0 Active Probiotic Product (PROBIOTIC OR) Take 2 Capsules by mouth daily. 0 Active abacavir (ZIAGEN) 20 MG/ML solution Take 30 mL by mouth daily. 0 Active quetiapine (SEROQUEL) 100 MG tablet Take 1 Tablet by mouth at bedtime. 0 Active metoprolol (TOPROL-XL) 25 MG 24 hr tablet Take 1 Tablet by mouth daily. 0 Active torsemide (DEMADEX) 20 MG tablet Take 2 Tablets by mouth 2 times daily. 360 Tablet 3 04/26/2024 Active Active Problems Problem Noted Date HFrEF (heart failure with reduced ejecti on fraction) 04/24/2024 Last Assessment & Plan: Patient was documented with a history of HFrEF with some regional wall motion abnormalities. He is not on guideline directed therapy at this time Paar the problem is I do not have a full set of records to see why the medical therapy that was instituted by [facility] heart failure clinic has not [...] directed therapy. Stage 3a chronic kidney disease 04/24/20 22 Dyspnea 10/29/2021 Last Assessment & Plan: We did discuss [...] stress test on him. Essential tremor 09/29/2021 Overview: Dr. Jacobsen Cardiomyopathy 09/16/2021 Last Assessment & Plan: Patient with history of recovered LVEF of 55%. He denies cardiac symptoms. He is currently not on GDMT. He is abstaining from drugs and alcohol on methadone and I have applauded his efforts. We will continue to monitor his heart function periodically with echocardiograms. HTN (hypertension) 09/16/2021 Last Assessment & Plan: Patient's blood pressure is acceptable at a reading of 130/80. I have reviewed with the patient the importance of a heart healthy lifestyle which includes eating a low-fat low-salt diet, getting regular exercise, maintaining a healthy weight, not smoking, and following up with routine medical care. Lesion of lung 04/21/2020 Community acquired pneumonia 04/21/2020 NSTEMI (non-ST elevated myocardial infar ction) 04/21/2020 Last Assessment & Plan: Patient had a history of an NSTEMI with no significant obstructive coronary artery disease. AMBER (acute kidney injury) 04/21/2020 Hyperkalemia 04/21/2020 Pulmonary nodules 06/16/2018 Non-healing non-surgical wound 8 Overview: Chronic heal Anemia 02/22/2014 Thalassemia minor 12/09/2012 Family history of sickle cell anemia 09/2012 Family history of colon cancer 3 HIV (human immunodeficiency virus infect ion) 10/25/2012 Overview: longstanding untreated as of 01/13/18 Other emphysema 10/25/2012 Overview: Pneumonia x 2 hospitalized Chronic hepatitis C 10/25/2012 Polysubstance abuse Overview: Heroin/ cocaine/ tobacco Resolved Problems Problem Noted Date Resolved Date Diabetic foot ulcers 10/25/2012 11/08/2012 Diabetes mellitus 11/08/2012 Immunizations Name Administration Dates Next Due COVID-19 (Moderna) 08/06/2021,01/10/2021, 021 COVID-19 (Pfizer) 2021 Hepatitis V-Mllve-Bcthqore + 10/26/2012 Tjxzqhxic-K-Ggahu-Positive + 10/17/2012 Influenza (>6 Months) Split Preservative Free 06/12/2015,07/04/2014 Influenza Vaccine-preservati ve Free-quadrivalent 4 Years 08/06/2021 Pneumoccoccal(Adult) Polysaccharide PPSV23 09/10 Pneumococcal Conjugate PCV-13 12/08/2012 Quantiferon Tb Gold Neg 11/29/2014,11/15/2013, Shingrix (Recombinant zoster vaccine) 05/20/2022 ,01/21/2022 Tdap 10/13/2022,12/08/2012 Family History Medical History Relation Name Comments CA Colon Father also, prostate ca CA Colon Mother diabetes Cancer of the Breast Sister 1 Relation Name Status Comments Brother Alive Daughter Alive Father Maternal Grandfather Maternal Grandmother Mother Paternal Grandfather Paternal Grandmother Sister 1 Alive Sister 2 Alive Sister 3 Alive Son Alive Social History Tobacco Use Types Packs/Day Years Used Date Smoking Tobacco: Every Day Cigarettes 0.3 43 Started: 08/09/1975 Smokeless Tobacco: Never Tobacco Cessation:Ready to Q uit: Not Asked; Counseling Given: Not Answered Comments:Smokes 3 cigarettes daily Alcohol Use Standard [...] file Not on file Not on file Last Filed Vital Signs Vital Sign Reading Time Taken Comments Blood Pressure 112/70 04/24/2024 1:35 PM EDT Pulse 94 04/24/2024 1:35 PM EDT Temperature 36.4 ??C (97.5 ??F) 04/06/2024 10:17 AM E DT Respiratory Rate 14 09/20/2023 2:49 PM EST Oxygen Saturation 90% 04/24/2024 1:35 PM EDT Inhaled Oxygen Concentration - - Weight 63.5 kg (140 lb) 04/24/2024 1:35 PM EDT Height 172.7 cm (5' 8 ) 04/24/2024 1:35 PM EDT Body Mass Index 21.29 04/24/2024 1:35 PM EDT Plan of Treatment Health Maintenance Due Date Last Done Comments DIABETES: ANNUAL EYE EXAM 04/03/2016 04/03/2015 (Exc eption) DIABETES: ANNUAL FOOT EXAM 04/03/2016 04/03/2015 (Ex ception) DIABETES: BLOOD SUGAR CONTRO L TEST (HGBA1C) 12/13/2023 09/14/2023, 04/24/2022, 12/21/2018, Additional history exists Covid-19 Vaccine (2022-09 4 season) 2024 2021, 08/06/2021, 01/10/2021, Additional history exists INFLUENZA (#1) 2024 08/06/2021, 11/2014, 07/04/2014 DIABETES: ANNUAL URINE PROTE IN TEST (MICROALBUMIN) 04/30/2024 04/30/2023, 04/03/2015 (Exception), 10/25/2012 COLON CANCER SCREENING 07/18/2024 4 (External Completion), 07/18/2014 DEPRESSION SCREENING/FOLLOWUP 08/09/2024 12/21/2022 SOCIAL NEEDS SCREENING 08/09/2024 11/23/2018 DIABETES/HEART DISEASE: ISAK AL CHOLESTEROL (LDL) 09/14/2024 09/14/2023, 10/10/2019, 11/23/2018, Additional history exists TOBACCO CHECK/ADVISE 12/21/2024 12/21/2022, 12/21/2022, 12/12/2018, Additional history exists DTAP/TDAP/TD (3 - Td or Tdap) 10/13/2032, 10/13/2022, 12/08/2012 HEPATITIS C SCREENING Completed 08/15/2021, 013 PNEUMOCOCCAL VACCINE FOR HIG H RISK PATIENTS Completed 09/10/2021, 12/08/2012 SHINGLES VACCINE Completed 05/20/2022, 01/21/2022 Care Teams Courtesy Bus Driver Relationship Specialty Start Date End Date Loreta Bhagat MD [address] [place] [address] PCP - General Internal Medicine 09/01/21 Cyndy Jama NP [address] [place] [address] Nurse Practitioner Cardiology 07/23/22 Jose Delgado MD [address] [place] [address] [place] [address] Champagne Maker Cardiovascular Disease 04/24/24
--- OUTSIDE RECORDS SUMMARY | 2024-09-12 15:49 | XMS_ITS | Encounter Summary ---
Author Organization [employer] [facility] Address [address] [place] [address] Care Team Providers Care Knocker Out Name Role Phone Siddharth Gardiner MD Primary Care Provider Unav Maryjo Putnam DO Primary Care Pro vider Unavailable Marisol Valencia PA-C Primary Care Provider U Stephan Muñoz MD Unavailable Unavailable Loreta Bhagat MD Primary Care Provider [phone] Cyndy Jama NP Unavailable [phone] Jose Delgado MD Unavailable [phone] Encounter Details Date Type Department Care Team Description 02/21/2013 Cut Plug Packer Report Medical Records [address] [place] [address] Joseph Goldsmith PA-C Social History Tobacco Use [...] on filedocumented in this encounter Care Teams Knocker Out Relationship Specialty Start Date End Date Siddharth Gardiner MD PCP - General Internal Medicine 10/14/12 3 Maryjo Reina DO PCP - General Internal Medicine 07/05/13 07/23/21 Marisol Valencia PA-C PCP - General Internal Medicine 07/24/21 08/31/21 Loreta Bhagat MD [address] [place] [address] PCP - General Internal Medicine 09/01/21 Stephan Mejia MD Associate Director Qa Cardiovascular Disease 07/30/21 4 Cyndy Jama NP [address] [place] [address] Nurse Practitioner Cardiology 07/23/22 Jose Delgado MD [address] [place] [address] [address] [place] [address] Associate Director Qa Cardiovascular Disease 04/24/24 documented as of this encounter
--- OUTSIDE RECORDS SUMMARY | 2024-09-12 15:49 | XMS_ITS | Continuity of Care Document ---
Author Organization [facility] Address [address] [address] Phone Care Team Providers Care Director Property Name Role Phone Rosemary Sung NP Unavailable Unavailable Allergies, Adverse Reactions, Alerts Substance Reaction Status Criticality No Known Allergies Active No Inform ation Medications Medication Instructions Dosage Effective Dates (start - stop) Status Comments albuterol sulfate HFA 90 mcg/actuation aerosol inhaler inhale 2 puff by inhalation route every 8 hr as needed - Active budesonide-formote rol HFA 160 mcg-4.5 mcg/actuation aerosol inhaler inhale 2 puff by inhalation route 2 times every day in the morning and evening 2.00 puff - Active Spiriva Respimat 1.25 mcg/actuation solution for inhalation inhale 2 puff by inhalation route every day 2.5 MCG - Active aspirin 81 mg tablet,delayed release take 1 tablet by oral route every day 81 MG - Active albuterol sulfate HFA 90 mcg/actuation aerosol inhaler inhale 2 puff by inhalation route every 8 hr as needed - No Longer Active Procedures Procedure Date OT EVAL LOW COMPLEX 30 MIN PT EVAL LOW COMPLEX 20 MIN OFFICE/OUTPATIENT VISIT EST MEDICAL NUTRITION INDIV IN Advance Directives Directive Yes / No Effective Date File Name No Information Encounters Encounter Description Practice Location Reason(s) For Visit Diagnoses Date Provider Providers Copied on Encounter [facility], [address] [address], [place], [place], [id number], [place] tel:[phone] [place] No Information 5 Pineda Riley. [address] [place], [id number] , [place]. tel:[phone] [facility], [address], [place], [place], [id number], [place] tel:[phone] [place] No Information 5 Pineda Riley. [address] [place], [id number] , [place]. tel:[phone] [facility], [address], [place], [place], [id number], [place] tel:[phone] [place] Encounter for rehabilitation evaluation 5 Karol Nataliia. [address] [place], [id number] , [place]. tel:[phone] [facility], [address], [place], [place], [id number], [place] tel:[phone] [place] Difficulty in walking, not elsewhere classifiedEncou nter for rehabilitation evaluation 5 Marcy Reyes. [address] [place], [address]. tel:[phone] OFFICE/OUTPA TIENT VISIT EST [facility], [address] [facility] [address], [place], [place], [id number], [place] tel:[phone] [place] Post Enrollment Evaluation (chief complaint) Opioid dependence on agonist therapyEncephal omalacia with cerebral infarctionCereb rovascular diseaseHIV diseaseAcquired immunocompromis ed stateCentrilobu lar emphysemaChroni c respiratory failure with hypoxiaStatus post tracheostomyCKD (chronic kidney disease) stage 4, GFR 15-29 ml/minCoronary artery disease involving little shell tribe coronary artery of little shell tribe heart without angina pectorisHeart failure with reduced ejection fraction (HFrEF, <= 40%)Hypertensiv e heart and kidney disease with HF and with CKD stage IVGastroesophag eal reflux disease without esophagitisBeni gn prostatic hyperplasia with lower urinary tract symptoms, symptom details unspecifiedSeco ndary hyperparathyroi dism of renal originAnemia, unspecified typeChronic hepatitis B 5 Pineda Riley. [address] [place], [id number] , [place]. [phone] [facility], [address], [id number], [place] tel:[phone] [place] Encounter for nutritional assessmentAt risk for inadequate oral intakeIncreased nutritional needs 5 Arbenfernanda Barclay. [address] [place], [id number] , [place]. [phone] [facility], [facility] [address] [place] [address], [id number], [place] tel:[phone] [place] Opioid dependence, in remissionTrache ostomy status 5 Pineda Riley. [address] [place] [place], [id number] , [place]. [phone] [facility], [facility] [address] [place] [address], [id number], [place] tel:[phone] [place] No Information 4 Pineda Riley. [address] [place], [id number] , [place]. [phone] Family History Family Member Type Diagnosis Age At Onset No Information Immunizations Vaccine Date Status Comments Flu-IIV3,p-free administered Source: [facility] Registry Payers Payer name Insurance type Covered democrat ID Authorbrad navas(s) [facility] 16 [id number] Social History Type Description Quantity Date Captured Comments Sex Male Smoking Status No Information Chief Complaint And Reason For Visit No Information Reason For Referral Reason For Referral No Information Plan Of Treatment Date Type Action Status Referral Referred To: [facility] Ordered: Referrals: Pain Medicine. [facility]. Evaluate and treat Appointment date/timeframe: 08/30/2024 ordered Referral Ordered: Referrals: Pulmonary Rehab. Evaluate [...] and 2 recent admits om 2023 to [facility] with sepsis, MSSA bacteremia, AMBER on CKD, [...] failure. Has VNA for trach/wound care.Admit to [facility] from 11/27-12/22/2023 with sepsis, MSSA bacteremia and treated for, per notes, c.difficile colitis with fidaxomicin (NO colitis on scanned CT a/p from 12/01 & 12/11 so likely c.diff diarrhea NOT colitis.) and HIV regimen changed to Abacavir, dolutegravir & rilpivirine with AMBER on CKD.Readmit to [facility] from 12/30-01/09/2024 with anemia (Hgb 5.5) and [...] if had colonoscopy - sounds like at [facility] had EGD only (as both parents who [...] ASA. Related to Coronary artery disease involving little shell tribe coronary artery of little shell tribe heart without angina pectoris With baseline eGFR [...]
--- OUTSIDE RECORDS SUMMARY | 2024-09-12 15:49 | XMS_ITS | Encounter Summary ---
Author Organization [facility] Address [address] [place] [address] Care Team Providers Care Linen Room Supervisor Name Role Phone Stephan Mejia MD Unavailable Unavailable Loreta Bhagat MD Primary Care Provider [phone] Cyndy Jama NP Unavailable [phone] Jose Delgado MD Unavailable [phone] Encounter Details Date Type Department Care Team Description 10/05/2021 Hospital Medical Records [address] [place], [place] [id number] [place] [address] Social History Tobacco Use Types Packs/Day Years [...] have Coronavirus / COVID-19? No / Unsure 09/29/2021 1:06 PM EST documented as of this encounter Plan of Treatment Not on file documented as of this encounter Procedures Procedure Name Priority Date/Time Associated Diagnosis Comments OUTSIDE EKG Routine 10/05/2021 OUTSIDE LAB Routine 10/05/2021 OUTSIDE LAB Routine 10/05/2021 OUTSIDE LAB Routine 10/05/2021 documented in this encounter Results * OUTSIDE LAB (10/05/2021) Provider Abstract LAB * OUTSIDE LAB (10/05/2021) Provider Abstract LAB * OUTSIDE LAB (10/05/2021) Provider Abstract LAB * OUTSIDE EKG (10/05/2021) Provider Abstract CARDIOLOGY documented in this encounter Visit Diagnoses Not on filedocumented in this encounter Care Teams Linen Room Supervisor Relationship Specialty Start Date End Date Loreta Bhagat MD [address] [place] [address] PCP - General Internal Medicine 09/01/21 Stephan Mejia MD [facility] Cardiovascular Disease 07/30/21 4 Cyndy Jama NP [address] [place] [address] Nurse Practitioner Cardiology 07/23/22 Jose Delgado MD [address] [place] [address] [address] [place] [address] [facility] Cardiovascular Disease 04/24/24 documented as of this encounter
--- OUTSIDE RECORDS SUMMARY | 2024-09-12 15:49 | XMS_ITS | Encounter Summary ---
Author Organization [facility] Address [address] [place] [address] Care Team Providers Care Manager Engagement Name Role Phone Stephan Mejia MD Unavailable Unavailable Loreta Bhagat MD Primary Care Provider [phone] Cyndy Jama NP Unavailable Jose Delgado MD Unavailable [phone] Encounter Details Date Type Department Care Team Description 04/12/2024 Telephone Adult Medicine [address] [phone] Loreta Bhagat MD [address] [place] [phone] Social History Tobacco Use Types Packs/Day Years [...] on filedocumented in this encounter Care Teams Manager Engagement Relationship Specialty Start Date End Date Loreta Bhagat MD [address] [place] [address] PCP - General Internal Medicine 09/01/21 Stephan Mejia MD Locker Plant Attendant Cardiovascular Disease 07/30/21 4 Cyndy Jama NP [address] [place] [address] Nurse Practitioner Cardiology 07/23/22 Jose Delgado MD [address] [place] [address] [address] [place] [address] Locker Plant Attendant Cardiovascular Disease 04/24/24 documented as of this encounter
--- OUTSIDE RECORDS SUMMARY | 2024-09-12 15:49 | XMS_ITS | Encounter Summary ---
Author Organization [employer] [facility] Address [address] [place] [address] Care Team Providers Care Lens Fabricating Machine Tender Name Role Phone Maryjo Reina DO Primary Care Pro vider Unavailable Marisol Valencia PA-C Primary Care Provider U Stephan Muñoz MD Unavailable Unavailable Loreta Bhagat MD Primary Care Provider [phone] Cyndy Jama NP Unavailable Jose Delgado MD Unavailable [phone] Encounter Details Date Type Department Care Team Description 11/08/2015 Hospital Medical Records [address] [place] [address] Josue Winn MD Social History Tobacco Use Types Packs/Day [...] on filedocumented in this encounter Care Teams Lens Fabricating Machine Tender Relationship Specialty Start Date End Date Maryjo Reina DO PCP - General Internal Medicine 07/05/13 07/23/21 Marisol Valencia PA-C PCP - General Internal Medicine 07/24/21 08/31/21 Loreta Bhagat MD [address] [place] [address] PCP - General Internal Medicine 09/01/21 Stephan Mejia MD [employer] Cardiovascular Disease 07/30/21 4 Cyndy Jama NP [address] [place] [address] Nurse Practitioner Cardiology 07/23/22 Jose Delgado MD [address] [place] [address] DRIVE [address] [place] [address] [facility] Ce[facility] Cardiovascular Disease 04/24/24 documented as of this encounter
--- OUTSIDE RECORDS SUMMARY | 2024-09-12 15:49 | XMS_ITS | Encounter Summary ---
Author Organization [facility] Address [address] [place] [address] Phone Care Team Providers Care Cartridge Gauger Name Role Phone Loreta Bhagat MD Primary Care Provider [phone] Encounter Details Date Type Department Care Team (Late st Contact Info) Description 07/07/2024 Documentation Only [facility] [address] [place] [id number] Ruy Mack DO [address] [place] [phone] Social History Tobacco Use Types Packs/Day Years [...] Visit [facility] [address] [place] [address] Ruy Mack DO [address] [place] [address] documented as of this encounter Visit Diagnoses Not on filedocumented in this encounter Care Teams Cartridge Gauger Relationship Specialty Start Date End Date Loreta Bhagat MD PCP - General Internal Medicine 10/22/23 documented as of this encounter
--- OUTSIDE RECORDS SUMMARY | 2024-09-12 15:49 | XMS_ITS | Encounter Summary ---
Author Organization [facility] Address [address] [place] [address] Care Team Providers Care Pool Hall Inspector Name Role Phone Stephan Mejia MD Unavailable Unavailable Loreta Bhagat MD Primary Care Provider [phone] Cnydy Jama NP Unavailable [phone] Jose Delgado MD Unavailable [phone] Reason for Visit * Reason Onset Date Comments APPOINTMENT 03/28/2024 Encounter Details Date Type Department Care Team Description 03/28/2024 Telephone Gastroenterology - [place] [address] [facility] [address] [place] [address] Eliazar Ochoa MD [address] [facility] [address] [place] [address] APPOINTMENT Social History Tobacco Use Types Packs/Day [...] encounter Miscellaneous Notes * Telephone Encounter - Lakeisha Michelle M.A. - 03/28/2024 12:57 PM EDT Patient placed on waitlist * Telephone Encounter - Farzana Miranda - 03/28/2024 9:28 AM EDT Patient calling had to cancel appt for today 03/28 due to being admitted in [facility]. Has new appt for 05/23 however he needs something sooner due to Complications with extensive hospitalization from September to March, with melena, under the setting of acute illness with EGD at [facility] showing peptic ulcer disease. Patient of severe renal compromise. documented in this encounter Plan of Treatment Not on file documented as of this encounter Visit Diagnoses Not on filedocumented in this encounter Care Teams Pool Hall Inspector Relationship Specialty Start Date End Date Loreta Bhagat MD [address] [place] [address] PCP - General Internal Medicine 09/01/21 Stephan Mejia MD Assembler Body Cardiovascular Disease 07/30/21 4 Cyndy Jama NP [address] [place] [address] Nurse Practitioner Cardiology 07/23/22 Jose Delgado MD [address] [place] [address] [address] [place] [address] Assembler Body Cardiovascular Disease 04/24/24 documented as of this encounter
--- OUTSIDE RECORDS SUMMARY | 2024-09-12 15:49 | XMS_ITS | Encounter Summary ---
Author Organization [facility] Address [address] [place] [address] Care Team Providers Care Financial Recruiter Name Role Phone Stephan Mejia MD Unavailable Unavailable Loreta Bhagat MD Primary Care Provider [phone] Cyndy Jama NP Unavailable [phone] Jose Delgado MD Unavailable [phone] Encounter Details Date Type Department Care Team Description 09/15/2023 Telephone Adult Medicine [address] [address] Stephen Erazo, SURVEYOR HELPER [address] [place], [place] [phone] Social History Tobacco Use Types Packs/Day Years [...] encounter Miscellaneous Notes * Telephone Encounter - Bria Row[place] MA - 09/15/2023 3:17 PM EST Letter printed and mailed to patient. * Telephone Encounter - Stephen Erazo APRN - 09/15/2023 2:54 PM EST Letter is available for print. * Telephone Encounter - Stephen Erazo APRN - 09/15/2023 7:32 AM EST Please Inform patient of message below. 1. Thyroid levels, PSA levels, Vitamin B12 levels, and Cholesterol is normal 2. Vitamin D levels low. Please start a vitamin D supplement. Prescription sent to the pharmacy. Patient is to take 50,000 units weekly for 12 weeks. 3. Kidney function is decreased. However, there is improvement compared to a year ago. Please hydrate and make follow-up appointment to monitor renal function. 4. Your blood counts show stable anemia. Iron studies ordered. Please go to the lab at your convenience to complete blood work. 5. You are prediabetic. Please maintain a low carb diet to optimize blood sugar levels (avoid sweetdrinks/snacks, excess bread, pasta intake and replace red meat with chicken and fish and increase salad intake). Attempt exercise daily or at least 3 times a week for 30 min. Complications associatedwith uncontrolled diabetes includes, but are not limited to an increased risk of cardiovascular disease, retinopathy, neuropathy, renal disease, increased risk of infections with open wounds and amputations. documented in this encounter Plan of Treatment Scheduled Orders Name Type Priority Associated Diagnoses Orde r Schedule IRON/TIBC Lab Routine Vitamin D deficiency Anemia, unspecified type Expected: 09/15/2023, Expires: 09/14/2024 [facility] ASS[facility] OF FERRITIN Lab Routine Vitamin D deficiency Anemia, unspecified type Expected: 09/15/2023, Expires: 09/14/2024 documented as of this encounter Visit Diagnoses Diagnosis Vitamin D deficiency- Primary Unspecified vitamin D deficiency Anemia, unspecified type documented in this encounter Care Teams Financial Recruiter Relationship Specialty Start Date End Date Loreta Bhagat MD [address] [place] [address] PCP - General Internal Medicine 09/01/21 Stephan Mejia MD Swabber Cardiovascular Disease 07/30/21 4 Cyndy Jama NP [address] [place] [address] Nurse Practitioner Cardiology 07/23/22 Jose Delgado MD [address] [place] [address] [place] [address] Swabber Cardiovascular Disease 04/24/24 documented as of this encounter
--- OUTSIDE RECORDS SUMMARY | 2024-09-12 15:49 | XMS_ITS | Encounter Summary ---
Author Organization [facility] Address [address] [place] [address] Care Team Providers Care Project Hire Name Role Phone Maryjo Reina DO Primary Care Pro vider Unavailable Marisol Valencia PA-C Primary Care Provider U Stephan Muñoz MD Unavailable Unavailable Loreta Bhagat MD Primary Care Provider [phone] Cyndy Jama NP Unavailable [phone] Jose Delgado MD Unavailable [phone] Encounter Details Date Type Department Care Team Description 12/26/2014 Radiation Protection Technician Report Medical Records [address] [place] [address] Abstract, Provider Social History Tobacco Use Types [...] on filedocumented in this encounter Care Teams Project Hire Relationship Specialty Start Date End Date Maryjo Reina DO PCP - General Internal Medicine 07/05/13 07/23/21 Marisol Valencia PA-C PCP - General Internal Medicine 07/24/21 08/31/21 Loreta Bhagat MD [address] [place] [address] PCP - General Internal Medicine 09/01/21 Stephan Mejia MD Drip Pumper Cardiovascular Disease 07/30/21 4 Cyndy Jama NP [address] [place] [address] Nurse Practitioner Cardiology 07/23/22 Jose Delgado MD [address] [place] [address] [address] [place] [address] Drip Pumper Cardiovascular Disease 04/24/24 documented as of this encounter
--- OUTSIDE RECORDS SUMMARY | 2024-09-12 15:49 | XMS_ITS | Encounter Summary ---
Author Organization [facility] Address [address] [place] [address] Care Team Providers Care Spring Fitter Helper Name Role Phone Stephan Mejia MD Unavailable Unavailable Loreta Bhagat MD Primary Care Provider [phone] Cyndy Jama NP Unavailable [phone] Jose Delgado MD Unavailable [phone] Reason for Visit * Reason Onset Date Comments Medication 10/24/2021 Encounter Details Date Type Department Care Team Description 10/24/2021 Refill Gastroenterology - [place] [address] [address] Jose Hammond PA-C 175 [facility] [address] [place] [address] Medication Social History Tobacco Use Types Packs/Day [...] have Coronavirus / COVID-19? No / Unsure 10/21/2021 7:58 AM EDT documented as of this encounter Plan of Treatment Not on file documented as of this encounter Visit Diagnoses Not on filedocumented in this encounter Care Teams Spring Fitter Helper Relationship Specialty Start Date End Date Loreta Bhagat MD [address] [place] [address] PCP - General Internal Medicine 09/01/21 Stephan Mejia MD Telephone Betting Clerk Cardiovascular Disease 07/30/21 4 Cyndy Jama NP [address] [place] [address] Nurse Practitioner Cardiology 07/23/22 Jose Delgado MD [address] [place] [address] [place] [address] Telephone Betting Clerk Cardiovascular Disease 04/24/24 documented as of this encounter
--- OUTSIDE RECORDS SUMMARY | 2024-09-12 15:49 | XMS_ITS | Encounter Summary ---
Author Organization [employer] [facility] Address [address] [place] [address] Care Team Providers Care Mortgage Loan Underwriter Name Role Phone Maryjo Reina DO Primary Care Pro vider Unavailable Marisol Valencia PA-C Primary Care Provider U Stephan Muñoz MD Unavailable Unavailable Loreta Bhagat MD Primary Care Provider [phone] Cyndy Jama NP Unavailable Jose Delgado MD Unavailable [phone] Encounter Details Date Type Department Care Team Description 11/01/2015 Hospital Medical Records [address] [place] [address] Ruy Cobb MD Social History Tobacco Use Types Packs/Day [...] on filedocumented in this encounter Care Teams Mortgage Loan Underwriter Relationship Specialty Start Date End Date Maryjo Reina DO PCP - General Internal Medicine 07/05/13 07/23/21 Marisol Valencia PA-C PCP - General Internal Medicine 07/24/21 08/31/21 Loreta Bhagat MD [address] [place] [address] PCP - General Internal Medicine 09/01/21 Stephan Mejia MD Rehab Assistant Cardiovascular Disease 07/30/21 4 Cyndy Jama NP [address] [place] [address] Nurse Practitioner Cardiology 07/23/22 Jose Delgado MD [address] [place] [address] DRIVE [address] [place] [address] Rehab Assistant Cardiovascular Disease 04/24/24 documented as of this encounter
--- OUTSIDE RECORDS SUMMARY | 2024-09-12 15:49 | XMS_ITS | Encounter Summary ---
Author Organization [facility] Address [address] [place] [address] Care Team Providers Care Wood Tile Installation Helper Name Role Phone Marisol Valencia PA-C Primary Care Provider U Stephan Muñoz MD Unavailable Unavailable Loreta Castro MD Primary Care Provider [phone] Cyndy Jama NP Unavailable [phone] Jose Delgado MD Unavailable [phone] Reason for Visit * Reason Onset Date Comments Production Team Leader Feedback 07/28/2021 Referrals Encounter Details Date Type Department Care Team Description 07/28/2021 Telephone Adult Medicine [address] [address] Marisol Valencia PA-C Production Team Leader Feedback (Referrals) Social History Tobacco Use Types Packs/Day Years [...] AM EST documented as of this encounter Miscellaneous Notes * Telephone Encounter - Brittani Crowe - 07/28/2021 3:46 PM EST I see the number as the primary contact number we will use that number to call with referrals. * Telephone Encounter - Kelly Meléndez R.N. - 07/28/2021 3:[address] castro made several referrrals today, new niumber to reach pt , will send to HEAD CHAR FILTER TANK TENDER * Telephone Encounter - Bria Mai - 07/28/2021 2:51 PM EST Shilpi, patient's counselor states that patient is without a phone at the moment, so when the referral are put into place please use the phone [phone] as a contact number. documented in this encounter Plan of Treatment Not on file documented as of this encounter Visit Diagnoses Not on filedocumented in this encounter Care Teams Wood Tile Installation Helper Relationship Specialty Start Date End Date Marisol Valencia PA-C PCP - General Internal Medicine 07/24/21 08/31/21 Loreta Castro MD [address] [place] [address] PCP - General Internal Medicine 09/01/21 Stephan Mejia MD Supervisor Network Control Operators Cardiovascular Disease 07/30/21 4 Cyndy Jama NP [address] [place] [address] Nurse Practitioner Cardiology 07/23/22 Jose Delgado MD [address] [place] [address] [address] [place] [address] Supervisor Network Control Operators Cardiovascular Disease 04/24/24 documented as of this encounter
--- OUTSIDE RECORDS SUMMARY | 2024-09-12 15:49 | XMS_ITS | Encounter Summary ---
Author Organization [email or web address] Address [address] [place] [address] Care Team Providers Care Diesel Technology Instructor Name Role Phone Stephan Mejia MD Unavailable Unavailable Loreta Bhagat MD Primary Care Provider [phone] Cyndy Jama NP Unavailable [phone] Jose Delgado MD Unavailable [phone] Reason for Visit * Reason Onset Date Comments Note, Other 05/06/2022 Encounter Details Date Type Department Care Team Description 05/06/2022 Telephone Adult Medicine - [place] [address] [place] [address] Loreta Bhagat MD [address] [place] [address] [phone] Note, Other Social History Tobacco Use Types [...] encounter Miscellaneous Notes * Telephone Encounter - Jasmyn Allison M.A. - 05/06/2022 1:18 PM EDT Faxed request. * Telephone Encounter - Heather Whitley - 05/06/2022 12:01 PM EDT Ruthy Mario from [facility] is calling states they need pt office note from his last PE on 11/23/2018. documented in this encounter Plan of Treatment Not on file documented as of this encounter Visit Diagnoses Not on filedocumented in this encounter Care Teams Diesel Technology Instructor Relationship Specialty Start Date End Date Loreta Bhagat MD [address] [place] [id number] PCP - General Internal Medicine 09/01/21 Stephan Mejia MD Public Relations Counselor Cardiovascular Disease 07/30/21 4 Cyndy Jama NP [address] [place] [id number] Nurse Practitioner Cardiology 07/23/22 Jose Delgado MD [address] [place] [address] [address] [place] [address] Public Relations Counselor Cardiovascular Disease 04/24/24 documented as of this encounter
--- OUTSIDE RECORDS SUMMARY | 2024-09-12 15:49 | XMS_ITS | Encounter Summary ---
Author Organization [facility] Address [address] [place] [address] Care Team Providers Care Waiter/Waitress Formal Name Role Phone Maryjo Reina DO Primary Care Pro vider Unavailable Marisol Valencia PA-C Primary Care Provider U Stephan Muñoz MD Unavailable Unavailable Loreta Bhagat MD Primary Care Provider [phone] Cyndy Jama NP Unavailable [phone] Jose Delgado MD Unavailable [phone] Encounter Details Date Type Department Care Team Description 11/12/2015 Hospital Medical Records [address] [place] [address] Baron Burns MD Social History Tobacco Use Types Packs/Day [...] on filedocumented in this encounter Care Teams Waiter/Waitress Formal Relationship Specialty Start Date End Date Maryjo Reina DO PCP - General Internal Medicine 07/05/13 07/23/21 Marisol Valencia PA-C PCP - General Internal Medicine 07/24/21 08/31/21 Loreta Bhagat MD [address] [place] [address] PCP - General Internal Medicine 09/01/21 Stephan Mejia MD Household Chores Cardiovascular Disease 07/30/21 4 Cyndy Jama NP [address] [place] [address] Nurse Practitioner Cardiology 07/23/22 Jose Delgado MD [address] [place] [address] [address] [place] [address] Household Chores Cardiovascular Disease 04/24/24 documented as of this encounter
[2024-09-12] MEDS: Albuterol Sulfate 5 MG, Albuterol/Iprat 2.5/0.5MG 3 ML 3 ML INHALE (15:53)
[2024-09-12 16:08] LABS: Influenza A PCR NEGATIVE (Negative); Influenza B PCR NEGATIVE (Negative); Resp Syncy Virus RNA Qual PCR NEGATIVE (Negative); SARS COV2 PCR INHOUSE NEGATIVE (Negative)
[2024-09-12 16:46] LABS: MANUAL DIFF FLAG NO
[2024-09-12 16:49] LABS: Basophils Percent Auto 0.3 % (0-2); Eosinophils Absolute Auto 0.1 X10*3/uL (0.0-0.4); Eosinophils Percent Auto 0.7 % (0-4); Hematocrit 34.7 % (42.0-52.0); Imm Gran Abs Auto 0.03 X10*3/uL (0.00-0.03); Imm Gran Pct Auto 0.4 % (0.0-0.4); Lymphocytes Absolute Auto 1.3 X10*3/uL (1.2-4.9); Lymphocytes Percent Auto 19.3 % (20-40); Mean Corpuscular HGB Conc 31.7 g/dl (31.0-36.0); Mean Corpuscular Hemoglobin 22.5 pg (27.0-33.0); Mean Corpuscular Volume 71.1 fL (80.0-98.0); Mean Platelet Volume 10.4 fL (9.4-12.4); Monocytes Absolute Auto 0.4 X10*3/uL (0.1-1.2); Monocytes Percent Auto 5.2 % (2-11); Neutrophils Absolute Auto 5.1 x10*3/uL (2.0-8.3); Neutrophils Percent Auto 74.1 % (45-73); Platelet Count 158 X10*3/uL (160-400); Red Blood Count 4.88 X10*6/uL (4.60-5.80); Red Cell Distribution Width 14.3 % (11.0-16.0); White Blood Count 6.9 X10*3/uL (4.8-10.8)
[2024-09-12 17:07] LABS: Anion Gap 15 (12-20); Blood Urea Nitrogen 34 mg/dL (9-16); Calcium 8.8 mg/dL (8.4-10.2); Carbon Dioxide 23 mmol/L (22-29); Chloride 106 mmol/L (96-108); Creatinine Clr Calc Pharmacy 30.9; Estimated Glomerular Filt Rate 31; Glucose Random 154 mg/dL (60-115); Potassium 4.3 mmol/L (3.3-5.1); Sodium 140 mmol/L (135-145)
[2024-09-12 17:08] LABS: Lactic Acid 1.7 mmol/L (0.5-2.0)
[2024-09-12] MEDS: iohexoL 350 MG/ML 100 ML INFUS..BTL IV (17:45)
[2024-09-12] MEDS: Azithromycin 500 MG TABLET PO (17:58)
[2024-09-12] MEDS: cefTRIAXone sodium 1 GM VIAL IVPUSH (17:58)
[2024-09-12 18:44] LABS: Venous Blood Gas Refer to POC result
[2024-09-12 18:44] LABS: VBG Base Excess -2.5 mmol/L; VBG HCO3 24 mmol/L (22-26); VBG pCO2 52 mmHg; VBG pH 7.27 (7.32-7.43); VBG pO2 31 mmHg
--- NOTE | 2024-09-12 19:57 | PM.IMHP ---
History of Present Illness Date of Service: 09/12/24 Attending physician on admission: Tawanda Whitehead Chief Complaint: Shortness of breath Patient is a 63 year old male with history of CKD, COPD, HIV (on HAART), HFrEF, TERRY, hepatitis C, mood disorder, hx cocaine and heroin abuse in remission and with numerous prior intubations for respiratory distress who presented to the emergency room from home via EMS complaining of progressively worsening shortness of breath over the last 2 days to a point where he has to stop and catch his breath after taking just a couple of steps. He describes an associated dry cough and wheezing but denies any chest pain, fevers or chills. When EMS got to his house, they administered 2 updraft treatments and 125 mg of IM Solu-Medrol but he was still wheezing after these interventions so they brought him in for further treatment. He reports compliance with his medications but unfortunately continues to smoke 4 - 5 cigarettes a day. Of note, he was admitted in respiratory distress in October of 2023 and required intubation which was complicated by placement of a tracheostomy and PEG tube (so far removed). A chest x-ray done tonight was concerning for pneumonia for which he received Ceftriaxone and Azithromycin but then a CT chest obtained thereafter had no findings to suggest pneumonia and was instead reported as showing areas of scarring vs possible malignancy with recommendation for a PET Scan. When I got to see him, he reportd feeling much better but was still wheezy so admission was requested. Review of Systems Review of Systems: Yes all other systems are reviewed and are negative [facility] Medical History Respiratory failure Tachycardia Myocardial injury Pneumonia TERRY (obstructive sleep apnea) Pulmonary nodules Hepatitis C HIV disease COPD (chronic obstructive pulmonary disease) Functional capacity: independent ambulation Social History Household Members: Friend(s) Housing: House Do you presently have visiting nurse or other home services: No Alcohol intake: former Comment: Sitter at bedside Patient Tobacco Use Status: Tobacco use Unknown Tobacco use type: Cigarette Cigarette Packs Per Day: 1 Cigarettes Per Day: 4 Years Smoked: 30 Years Smoked in Last 30 Days: Yes Use of substances other than those prescribed or required for medical reasons: Yes Substance Use Type: Marijuana Advance Directives: No Advance Directives Information Provided: Yes service: No Meds Allergies Allergy/AdvReac Type Severity Reaction Status Date / Time No Known Allergies Allergy Unverified 09/12/24 15:02 Home Medications ?Medication ?Instructions ?Recorded ?Confirmed ?Last Taken ?Type albuterol sulfate 90 mcg/actuation 2 puff inhalation Q4H PRN Wheezing 03/28/24 09/12/24 Unknown History aerosol inhaler ascorbic acid (vitamin C) 500 mg 500 mg PO DAILY 03/28/24 09/12/24 09/11/24 History tablet (Vitamin C) aspirin 81 mg tablet,delayed 81 mg PO DAILY 03/28/24 09/12/24 09/11/24 History release cholecalciferol (vitamin D3) 25 50 mcg PO DAILY 03/28/24 09/12/24 09/11/24 History mcg (1,000 unit) tablet (Vitamin D3) dolutegravir 50 mg tablet (Tivicay) 50 mg PO DAILY 03/28/24 09/12/24 09/11/24 History lamivudine 100 mg tablet 100 mg PO DAILY 03/28/24 09/12/24 09/11/24 History lamotrigine 25 mg tablet 25 mg PO Q48H 03/28/24 09/12/24 09/11/24 History pantoprazole 40 mg tablet,delayed 40 mg PO DAILY@0630 03/28/24 09/12/24 09/11/24 History release torsemide 40 mg tablet 40 mg PO BID 03/28/24 09/12/24 09/11/24 History Oxygen Home Use 06/05/24 Unknown History ibuprofen 200 mg tablet 200 mg PO DAILY PRN Pain 09/12/24 09/12/24 Unknown History Physical Exam Vital Signs and Narrative: Vital Signs: Last Vital Signs Temp 98.9 F 09/12/24 18:35 Pulse 96 09/12/24 18:35 Resp 18 09/12/24 18:35 BP 133/81 09/12/24 18:35 Pulse Ox 98 09/12/24 18:35 O2 Del Method Room Air 09/12/24 18:35 Oxygen Flow Rate 2 09/12/24 14:58 BMI result Body Mass Index 20.6 General: Thin male who appears his stated age. Awake and alert. In no obvious respiratory distress. Psychiatric: Pleasant, well kempt, cooperative with normal thought process, speech, cognition and affect. HEENT: Normocephalic, atraumatic. No pallor or jaundice. Moist oral mucus membranes Neck: Supple. Tracheostomy is patent. No JVD Lungs: Diminished breath sounds bilaterally with scattered end expiratory wheezes. No rales or rhonchi. Heart: RRR. Normal s1/s2. No murmurs, rubs or gallops. No peripheral edema. Abdomen: Scaphoid, Soft, non-tender. Normoactive bowel sounds. No visceromegaly. Genitourinary: Deferred Back/Spine/Pelvis: Deferred Skin: Warm, dry, well perfused. Normal turgor. No mottling. Normal capillary refill (< 2 seconds). Neurologic: Awake and alert. Intact speech & cognition. Normal gait & balance. CN II-XII grossly normal. Extremities: Normal muscle bulk, tone and power. No obvious deformities. No peripheral edema. Good peripheral pulses. Results Labs 09/12/24 16:41 09/12/24 16:41 Labs: Laboratory Results - last 24 hr 09/12/24 09/12/24 09/12/24 15:24 16:41 18:40 MCV 71.1 L MCH 22.5 L MCHC 31.7 RDW 14.3 Plt Count 158 L MPV 10.4 Immature Gran % (Auto) 0.4 Neut % (Auto) 74.1 H Lymph % (Auto) 19.3 L Nicholas % (Auto) 5.2 Eos % (Auto) 0.7 Baso % (Auto) 0.3 Lymph # (Auto) 1.3 Nicholas # (Auto) 0.4 Eos # (Auto) 0.1 Baso # (Auto) 0.0 Abs Immat Gran (auto) 0.03 Absolute Neuts (auto) 5.1 Absolute Nucleated RBC 0.000 Nucleated RBC % (auto) 0.0 VBG pH 7.27 L VBG pCO2 52 VBG pO2 31 VBG HCO3 24 VBG O2 Saturation 32.0 VBG Base Excess -2.5 Anion Gap 15 Estim Creat Clear Calc 30.9 Estimated GFR 31 Random Glucose 154 H Lactic Acid 1.7 Calcium 8.8 D Influenza Type A (PCR) NEGATIVE Influenza Type B (PCR) NEGATIVE RSV RNA Qual (PCR) NEGATIVE SARS-CoV-2 RNA (RT-PCR) NEGATIVE Imaging Radiologist's Impressions: Impressions Chest X-Ray 09/12/24 15:30 IMPRESSION: Chronic interstitial lung disease with the multifocal pneumonia versus pulmonary edema and bilateral pleural effusions, moderate volume right greater than left. Abnormal left glenohumeral joint no fully included in the exam. CT Chest IMPRESSION 1. No acute intrathoracic findings. 2. Stable peripheral opacities in the left upper lobe, posterior lower lobes and posterior right upper lobe, may represent scarring however neoplasm can not be excluded. Consider PET-CT for further evaluation. 3. Stable trace right pleural effusion with peripheral rind. 4. Emphysema and bronchiolar wall thickening. Previously noted endobronchial nodularities have resolved. Assessment and Plan (1) COPD with acute exacerbation: Status: Acute (2) CKD (chronic kidney disease): Qualifiers: Chronic kidney disease stage 3 subtype: stage 3b (GFR 30-44) Chronic kidney disease stage: stage 3 (moderate) Qualified Code(s): N18.32 - Chronic kidney disease, stage 3b Status: Chronic (3) Anemia: Qualifiers: Anemia type: unspecified type Qualified Code(s): D64.9 - Anemia, unspecified Status: Chronic (4) HIV (human immunodeficiency virus infection): Qualifiers: HIV symptom status: asymptomatic, with no history of HIV-related illness Qualified Code(s): Z21 - Asymptomatic human immunodeficiency virus [HIV] infection status Status: Chronic Plan 63 year old male with history of CKD, COPD, HIV (on HAART), HFrEF, TERRY, hepatitis C, mood disorder, hx cocaine and heroin abuse in remission here with 1. COPD with acute exacerbation - here with progressively worsening SOB and wheezing - presentation is concerning for COPD exacerbation - admit and continue with schedule IV steroids and Duo Nebs - add PRN Albuterol updrafts - continue Azithromycin for its Pleiotropic effect 2. HIV - continue HAART 3. H/O Polysubstance abuse - he has known history of heroine and cocaine use in the past - currently in remission - resume Suboxone 4. H/O CHF - resume diuretics / Bumex (Torsemide is NF) Total time managing care of this patient today: 75 minutes. Quality Stroke Does the patient have a stroke diagnosis?: No VTE Prior VTE?: No VTE Risk Level:: Medical - moderate - high VTE Device Contraindication: N/A - Device Ordered VTE Drug Contraindication: N/A - Med Ordered
--- NOTE | 2024-09-12 20:32 | PHA.MEDREC ---
Addendum entered by Lexus Dixon RPh 09/12/24 20:58: Per Mary, patient said he was switched from furosemide to torsemide. Med rec was reviewed by [facility]. Original Note: Pharmacy Consult ? Medication Reconciliation Pharmacy has completed the medication reconciliation. Spoke with patient and he confirmed his medications. He states he takes his Lamotragine 25mg tab every other day and confirmed he took it yesterday. He confirmed he took all his medications yesterday.
[2024-09-12] MEDS: Enoxaparin Sodium 30 MG/0.3 ML SYRINGE SUBCUT (21:05)
[2024-09-12] MEDS: Sennosides 8.6 MG TABLET 17.2 MG PO (21:05)
--- NOTE | 2024-09-12 21:11 | PC.NURSE ---
Provider Dr. sorensen, into assess pt, medicated per mar. pt reposition for comfort.
[2024-09-13] VITALS (10 sets, daily range): BP systolic 98–134; BP diastolic 57–82; PULSE 80–121; RESP 13–20; TEMP 36.6–37.2; O2SAT 96–99; BMI 21.4
[2024-09-13] MEDS: Benzonatate 100 MG CAPSULE PO ×2 (04:04→13:39)
--- NOTE | 2024-09-13 04:06 | PC.NURSE ---
resting quietly in room with even and unlabored respirations. medicated w/ prn cough medication per patient request. vss, call jarrett within reach. awaiting bed assignment at this time.
[2024-09-13 04:56] LABS: Basophils Percent Auto 0.2 % (0-2); Hematocrit 36.3 % (42.0-52.0); Hemoglobin 11.3 g/dl (14.0-18.0); Imm Gran Abs Auto 0.01 X10*3/uL (0.00-0.03); Imm Gran Pct Auto 0.2 % (0.0-0.4); Lymphocytes Absolute Auto 0.5 X10*3/uL (1.2-4.9); Lymphocytes Percent Auto 9.9 % (20-40); MANUAL DIFF FLAG NO; Mean Corpuscular HGB Conc 31.1 g/dl (31.0-36.0); Mean Corpuscular Hemoglobin 22.3 pg (27.0-33.0); Mean Corpuscular Volume 71.7 fL (80.0-98.0); Monocytes Absolute Auto 0.2 X10*3/uL (0.1-1.2); Monocytes Percent Auto 3.1 % (2-11); Neutrophils Absolute Auto 4.2 x10*3/uL (2.0-8.3); Neutrophils Percent Auto 86.6 % (45-73); Platelet Count 145 X10*3/uL (160-400); Red Blood Count 5.06 X10*6/uL (4.60-5.80); Red Cell Distribution Width 14.3 % (11.0-16.0); White Blood Count 4.8 X10*3/uL (4.8-10.8)
[2024-09-13 05:19] LABS: Anion Gap 16 (12-20); Blood Urea Nitrogen 40 mg/dL (9-16); Calcium 9.3 mg/dL (8.4-10.2); Carbon Dioxide 18 mmol/L (22-29); Chloride 105 mmol/L (96-108); Creatinine Clr Calc Pharmacy 33.2; Estimated Glomerular Filt Rate 34; Glucose Random 218 mg/dL (60-115); Potassium 5.2 mmol/L (3.3-5.1); Sodium 134 mmol/L (135-145)
[2024-09-13 06:05] LABS: Procalcitonin 0.08 ng/mL
[2024-09-13] MEDS: 0.9 % Sodium Chloride Flush 3 ML SYRINGE IVFLUSH ×3 (06:35→20:17)
--- NOTE | 2024-09-13 06:36 | PC.NURSE ---
Addendum entered by Shaunna Sahni 09/13/24 06:46: oxymask remains in place for patient comfort, 100% at this time. Original Note: patient reports increased diff breathing, tachypneic and diaphoretic. placed on 4L oxymask, reports improvement w/ breathing with oxymask. respiratory called for breathing treatment.
[2024-09-13] MEDS: methylPREDNISolone Sod Succ 40 MG/ML VIAL IVPUSH ×2 (06:55→20:10)
[2024-09-13] MEDS: Albuterol/Iprat 2.5/0.5MG 3 ML AMPUL.NEB INHALE (06:55)
[2024-09-13] MEDS: Fluticasone/Vilanterol 200/25 BLST.W.DEV 1 PUFF INHALE (08:25)
[2024-09-13] MEDS: LAMIVUDINE PO (09:21)
[2024-09-13] MEDS: Cholecalciferol (Vitamin D3) 25 MCG TABLET 50 MCG PO (09:21)
[2024-09-13] MEDS: Sodium Zirconium Cyclosilicate 5 GM POWD.PACK PO (09:21)
[2024-09-13] MEDS: lamoTRIgine 25 MG TABLET PO (09:21)
[2024-09-13] MEDS: Buprenorphine/Naloxone 12/3 mg FILM 1 FILM BUCCAL (09:29)
--- NOTE | 2024-09-13 10:36 | MHC.CM.PN ---
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 His PCP is confirmed: Nataliia Arroyo. For DME, he has home O2, CPAP and Nebulizer. He said he does not always use them as prescribed and that he will work on doing so going forward. He can arrange a ride home at [place]. DCP: home, resume services.
--- NOTE | 2024-09-13 11:24 | HO.PM.IMPN ---
Subjective Subjective Date of Service: 09/13/24 Interval History: dyspnea improving not wheezing Review of Systems Review of Systems: Yes all other systems are reviewed and are negative Physical Exam Vital Signs: Vital Signs: Last Vital Signs Temp 98.1 F 09/13/24 08:00 Pulse 87 09/13/24 08:27 Resp 20 09/13/24 08:27 BP 130/71 09/13/24 08:00 Pulse Ox 96 09/13/24 08:00 O2 Del Method Nasal Cannula 09/13/24 08:00 O2 Flow Rate 2 09/13/24 08:00 Oxygen Flow Rate 2 09/12/24 14:58 BMI result Body Mass Index 21.4 Gen: in no acute distress HEENT: sclera anicteric, moist mucus membranes Neck: supple Lungs: diminished throughout Heart: regular rate and rhythm, no murmurs Abd: soft, non-tender, non-distended Ext: no edema Skin: warm/well-perfused Neuro: alert and oriented x3, no focal findings Psych: appropriate affect Objective Data Active Medications Acetaminophen (Acetaminophen 325 Mg Tablet) 650 mg PO Q6H PRN PRN Reason: Pain, Mild 1-3,fever,headache Albuterol Sulfate (Albuterol Sulfate (0.083%) 2.5 Mg/3 Ml Vial.Neb) 2.5 mg INHALE Q4H PRN PRN Reason: Shortness of Breath/Wheezing Albuterol/Ipratropium (Albuterol/Iprat 2.5/0.5mg 3 Ml Ampul.Neb) 3 ml INHALE Q4H PRN PRN Reason: Shortness of Breath/Wheezing Last Admin: 09/13/24 06:55 Dose: 3 ml Documented By: ANUP Benzonatate (Benzonatate 100 Mg Capsule) 100 mg PO TID PRN PRN Reason: Cough Last Admin: 09/13/24 04:04 Dose: 100 mg Documented By: ANUP Bumetanide (Bumetanide 1 Mg/4 Ml Vial) 1 mg IVPUSH DAILY SUSNAA; Protocol Buprenorphine/Naloxone (Buprenorphine/Naloxone 12/3 Mg Film) 1 film BUCCAL DAILY SUSANA Last Admin: 09/13/24 09:29 Dose: 1 film Documented By: ALEKSEY Comments: ripped barcode before scanning Calcium Carbonate (Calcium Carbonate 750 Mg Tab.Chew) 750 mg PO Q4H PRN PRN Reason: Heartburn Dolutegravir Sodium (Dolutegravir Sodium 50 Mg Tablet) 50 mg PO DAILY [facility] Enoxaparin Sodium (Enoxaparin Sodium 30 Mg/0.3 Ml Syringe) 30 mg SUBCUT Q24H [facility] Last Admin: 09/12/24 21:05 Dose: 30 mg Documented By: CHARLENE Fluticasone/Vilanterol (Fluticasone/Vilanterol 200/25 Blst.W.Dev) 1 puff INHALE DAILY [facility] Last Admin: 09/13/24 08:25 Dose: 1 puff Documented By: KESHAWN Lamivudine (Lamivudine 100 Mg/10 Ml Solution) 100 mg PO DAILY [facility] Last Admin: 09/13/24 09:21 Dose: 100 mg Documented By: ALEKSEY Lamotrigine (Lamotrigine 25 Mg Tablet) 25 mg PO Q48H [facility] Last Admin: 09/13/24 09:21 Dose: 25 mg Documented By: ALEKSEY Magnesium Hydroxide (Milk Of Magnesia 30 Ml Oral.Susp) 30 ml PO DAILY PRN PRN Reason: Constipation Melatonin (Melatonin 3 Mg Tablet) 6 mg PO BEDTIME PRN PRN Reason: Insomnia Methylprednisolone Sodium Succinate (Methylprednisolone Sod Succ 40 Mg/Ml Vial) 40 mg IVPUSH BID [facility] Last Admin: 09/13/24 06:55 Dose: 40 mg Documented By: ANUP Ondansetron HCl (Ondansetron Hcl 4 Mg/2 Ml Vial) 4 mg IVPUSH Q8H PRN PRN Reason: Nausea and Vomiting Senna (Sennosides 8.6 Mg Tablet) 17.2 mg PO BEDTIME [facility] Last Admin: 09/12/24 21:05 Dose: 17.2 mg Documented By: CHARLENE Sodium Chloride (0.9 % Sodium Chloride Flush 3 Ml Syringe) 3 ml IVFLUSH QSHIFT [facility] Last Admin: 09/13/24 06:35 Dose: 3 ml Documented By: ANUP Vitamin D (Cholecalciferol (Vitamin D3) 25 Mcg Tablet) 50 mcg PO DAILY [facility] Last Admin: 09/13/24 09:21 Dose: 50 mcg Documented By: ALEKSEY Labs 09/13/24 04:31 09/13/24 04:31 Labs: Laboratory Results - last 24 hr 0209/12/24 09/12/24 15:24 16:41 18:40 MCV 71.1 L MCH 22.5 L MCHC 31.7 RDW 14.3 Plt Count 158 L MPV 10.4 Immature Gran % (Auto) 0.4 Neut % (Auto) 74.1 H Lymph % (Auto) 19.3 L [place] % (Auto) 5.2 Eos % (Auto) 0.7 Baso % (Auto) 0.3 Lymph # (Auto) 1.3 [place] # (Auto) 0.4 Eos # (Auto) 0.1 Baso # (Auto) 0.0 Abs Immat Gran (auto) 0.03 Absolute Neuts (auto) 5.1 Absolute Nucleated RBC 0.000 Nucleated RBC % (auto) 0.0 VBG pH 7.27 L VBG pCO2 52 VBG pO2 31 VBG HCO3 24 VBG O2 Saturation 32.0 VBG Base Excess -2.5 Anion Gap 15 Estim Creat Clear Calc 30.9 Estimated GFR 31 Random Glucose 154 H Lactic Acid 1.7 Calcium 8.8 D Magnesium Procalcitonin Influenza Type A (PCR) NEGATIVE Influenza Type B (PCR) NEGATIVE RSV RNA Qual (PCR) NEGATIVE SARS-CoV-2 RNA (RT-PCR) NEGATIVE 09/13/24 04:31 MCV 71.7 L MCH 22.3 L MCHC 31.1 RDW 14.3 Plt Count 145 L MPV 10.0 Immature Gran % (Auto) 0.2 Neut % (Auto) 86.6 H Lymph % (Auto) 9.9 L [place] % (Auto) 3.1 Eos % (Auto) 0.0 Baso % (Auto) 0.2 Lymph # (Auto) 0.5 L [place] # (Auto) 0.2 Eos # (Auto) 0.0 Baso # (Auto) 0.0 Abs Immat Gran (auto) 0.01 Absolute Neuts (auto) 4.2 Absolute Nucleated RBC 0.000 Nucleated RBC % (auto) 0.0 VBG pH VBG pCO2 VBG pO2 VBG HCO3 VBG O2 Saturation VBG Base Excess Anion Gap 16 Estim Creat Clear Calc 33.2 Estimated GFR 34 Random Glucose 218 H Lactic Acid Calcium 9.3 Magnesium 2.0 Procalcitonin 0.08 Influenza Type A (PCR) Influenza Type B (PCR) RSV RNA Qual (PCR) SARS-CoV-2 RNA (RT-PCR) Assessment and Plan (1) COPD (chronic obstructive pulmonary disease): Status: Acute Plan d2 for 63yo M with CKD4, COPD, HIV on ART, HFrEF, TERRY, HCV, mood disorder, hx polysubstance abuse in remission presenting with dypsnea + wheezing, admitted for COPD exacerbation COPD exacerbation - continue IV methylprednisolone, nebulized bronchodilators, azithromycin, continue Breo - CT chest 09/12/24: 1. No acute intrathoracic findings. 2. Stable peripheral opacities in the left upper lobe, posterior lower lobes and posterior right upper lobe, may represent scarring however neoplasm can not be excluded. Consider PET-CT for further evaluation. 3. Stable trace right pleural effusion with peripheral rind. 4. Emphysema and bronchiolar wall thickening. Previously noted endobronchial nodularities have resolved. - sees Dr Brooks as an outpt; should follow up with him for PET-CT CKD4 - monitor SCr; appears at baseline chronic hypoxic resp failure - on 2L O2 at home hyperK, mild - give 1 dose Lokelma, recheck BMP in AM HIV - continue dolutegravir + lamivudine polysubstance abuse in remission - continue Suboxone mood disorder - continue lamotrigine chronic HFrEF - continue bumetanide TERRY - CPAP at night VTE ppx - enoxaparin dispo - anticipate home tomorrow Total time managing care of this patient today: 45 minutes. Quality Stroke Does the patient have a stroke diagnosis?: No VTE Prior VTE?: No VTE Risk Level:: Medical - moderate - high VTE Device Contraindication: N/A - Device Ordered VTE Drug Contraindication: N/A - Med Ordered
[2024-09-13] MEDS: Azithromycin 500 MG TABLET PO (13:39)
--- NOTE | 2024-09-13 13:42 | MHC.CM.PN ---
[place] [facility] [place] Keo will check in tomorrow, DC summary to be sent to him at [place]. Keo: [phone]
[2024-09-13 15:38] LABS: Adenovirus PCR Not Detected (Not Detect.); Bordetella parapertussis PCR Not Detected (Not Detect.); Bordetella pertussis PCR Not Detected (Not Detect.); Chlamydia pneumoniae PCR Not Detected (Not Detect.); Coronavirus 229E PCR Not Detected (Not Detect.); Coronavirus HKU1 PCR Not Detected (Not Detect.); Coronavirus NL63 PCR Not Detected (Not Detect.); Coronavirus OC43 PCR Detected (Not Detect.); Human metapneumovirus PCR Not Detected (Not Detect.); Influenza A PCR Not Detected (Not Detect.); Influenza B PCR Not Detected (Not Detect.); Mycoplasma pneumoniae PCR Not Detected (Not Detect.); Parainfluenza 1 PCR Not Detected (Not Detect.); Parainfluenza 2 PCR Not Detected (Not Detect.); Parainfluenza 3 PCR Not Detected (Not Detect.); Parainfluenza 4 PCR Not Detected (Not Detect.); RSV PCR Not Detected (Not Detect.); Rhino/Enterovirus PCR Not Detected (Not Detect.)
[2024-09-13 15:42] LABS: SARS-CoV-2 PCR Not Detected (Not Detect.)
--- NOTE | 2024-09-13 19:14 | PM.EVENT ---
Event Note Date of Service: 09/13/24 Event Note: Hospitalist cross cover note Contacted by Ana Dixon and informed that patient had positive blood cultures The gram stain on Aerobic bottle shows Gram positive cocci in cluster. MRSA PCR result is MRSA negative, SA Negative Ass/Plan 1. Gram-positive bacteremia - he received ceftriaxone - currently on azithromycin for COPD exacerbation - will add ceftriaxone tonight pending final culture results. Time Spent With Patient Time: Total time managing care of this patient today __10__ minutes.
[2024-09-13] MEDS: cefTRIAXone sodium 1 GM VIAL IVPUSH (20:10)
[2024-09-14] VITALS (7 sets, daily range): BP systolic 117–143; BP diastolic 74–85; PULSE 65–123; RESP 16–22; TEMP 36.3–37.2; O2SAT 91–99
[2024-09-14] MEDS: Benzonatate 100 MG CAPSULE PO ×2 (00:03→20:41)
[2024-09-14 06:36] LABS: Venous Blood Gas Refer to POC result
[2024-09-14 06:39] LABS: VBG Base Excess 0.8 mmol/L; VBG HCO3 27 mmol/L (22-26); VBG pCO2 49 mmHg; VBG pH 7.34 (7.32-7.43); VBG pO2 70 mmHg
[2024-09-14 06:55] LABS: Anion Gap 13 (12-20); Blood Urea Nitrogen 48 mg/dL (9-16); Calcium 9.5 mg/dL (8.4-10.2); Carbon Dioxide 21 mmol/L (22-29); Chloride 106 mmol/L (96-108); Creatinine Clr Calc Pharmacy 36.2; Estimated Glomerular Filt Rate 36; Glucose Random 135 mg/dL (60-115); Potassium 5.4 mmol/L (3.3-5.1); Sodium 135 mmol/L (135-145)
[2024-09-14] MEDS: Cholecalciferol (Vitamin D3) 25 MCG TABLET 50 MCG PO (07:50)
[2024-09-14] MEDS: LAMIVUDINE PO (07:50)
[2024-09-14] MEDS: Bumetanide 1 MG TABLET PO (07:51)
[2024-09-14] MEDS: methylPREDNISolone Sod Succ 40 MG/ML VIAL IVPUSH ×2 (07:51→20:31)
[2024-09-14] MEDS: Dolutegravir Sodium 50 MG TABLET PO (07:51)
[2024-09-14] MEDS: Fluticasone/Vilanterol 200/25 BLST.W.DEV 1 PUFF INHALE (08:40)
[2024-09-14] MEDS: Buprenorphine/Naloxone 12/3 mg FILM 1 FILM BUCCAL (09:06)
[2024-09-14] MEDS: Sodium Zirconium Cyclosilicate 10 GM POWD.PACK PO (09:10)
--- NOTE | 2024-09-14 11:20 | P.PNIM_ITS ---
Subjective Subjective Date of Service: 09/14/24 Interval History: cough/dyspnea improving RPP + for coronavirus OC43 Review of Systems Review of Systems: Yes all other systems are reviewed and are negative Physical Exam 2 Vital Signs: Vital Signs: Last Vital Signs Temp 97.4 F 09/14/24 07:19 Pulse 65 09/14/24 08:41 Resp 18 09/14/24 08:41 BP 137/74 09/14/24 07:19 Pulse Ox 98 09/14/24 07:19 O2 Del Method Nasal Cannula 09/14/24 07:19 O2 Flow Rate 2 09/14/24 07:19 Oxygen Flow Rate 2 09/12/24 14:58 BMI result Body Mass Index 21.4 Gen: in no acute distress HEENT: sclera anicteric, moist mucus membranes Neck: supple Lungs: diminished throughout Heart: regular rate and rhythm, no murmurs Abd: soft, non-tender, non-distended Ext: no edema Skin: warm/well-perfused Neuro: alert and oriented x3, no focal findings Psych: appropriate affect Objective Data Active Medications Acetaminophen (Acetaminophen 325 Mg Tablet) 650 mg PO Q6H PRN PRN Reason: Pain, Mild 1-3,fever,headache Albuterol Sulfate (Albuterol Sulfate (0.083%) 2.5 Mg/3 Ml Vial.Neb) 2.5 mg INHALE Q4H PRN PRN Reason: Shortness of Breath/Wheezing Albuterol/Ipratropium (Albuterol/Iprat 2.5/0.5mg 3 Ml Ampul.Neb) 3 ml INHALE Q4H PRN PRN Reason: Shortness of Breath/Wheezing Last Admin: 09/13/24 06:55 Dose: 3 ml Documented By: ANUP Azithromycin (Azithromycin 500 Mg Tablet) 500 mg PO Q24H [facility] Last Admin: 09/13/24 13:39 Dose: 500 mg Documented By: BRITTA Benzonatate (Benzonatate 100 Mg Capsule) 100 mg PO TID PRN PRN Reason: Cough Last Admin: 09/14/24 00:03 Dose: 100 mg Documented By: KEVIN Bumetanide (Bumetanide 1 Mg Tablet) 1 mg PO DAILY [facility]; Protocol Last Admin: 09/14/24 07:51 Dose: 1 mg Documented By: BRITTA Buprenorphine/Naloxone (Buprenorphine/Naloxone 12/3 Mg Film) 1 film BUCCAL DAILY [facility] Last Admin: 09/14/24 09:06 Dose: 1 film Documented By: BRITTA Calcium Carbonate (Calcium Carbonate 750 Mg Tab.Chew) 750 mg PO Q4H PRN PRN Reason: Heartburn Ceftriaxone Sodium (Ceftriaxone Sodium 1 Gm Vial) 1 gm IVPUSH Q24H [facility] Last Admin: 09/13/24 20:10 Dose: 1 gm Documented By: KEVIN Dolutegravir Sodium (Dolutegravir Sodium 50 Mg Tablet) 50 mg PO DAILY [facility] Last Admin: 09/14/24 07:51 Dose: 50 mg Documented By: BRITTA Enoxaparin Sodium (Enoxaparin Sodium 30 Mg/0.3 Ml Syringe) 30 mg SUBCUT Q24H [facility] Last Admin: 09/13/24 20:10 Dose: Not Given Documented By: KEVIN Non-Admin Reason: Patient Refused Fluticasone/Vilanterol (Fluticasone/Vilanterol 200/25 Blst.W.Dev) 1 puff INHALE DAILY [facility] Last Admin: 09/14/24 08:40 Dose: 1 puff Documented By: KESHAWN Lamivudine (Lamivudine 100 Mg/10 Ml Solution) 100 mg PO DAILY [facility] Last Admin: 09/14/24 07:50 Dose: 100 mg Documented By: BRITTA Lamotrigine (Lamotrigine 25 Mg Tablet) 25 mg PO Q48H [facility] Last Admin: 09/13/24 09:21 Dose: 25 mg Documented By: ALEKSEY Magnesium Hydroxide (Milk Of Magnesia 30 Ml Oral.Susp) 30 ml PO DAILY PRN PRN Reason: Constipation Melatonin (Melatonin 3 Mg Tablet) 6 mg PO BEDTIME PRN PRN Reason: Insomnia Methylprednisolone Sodium Succinate (Methylprednisolone Sod Succ 40 Mg/Ml Vial) 40 mg IVPUSH BID [facility] Last Admin: 09/14/24 07:51 Dose: 40 mg Documented By: BRITTA Ondansetron HCl (Ondansetron Hcl 4 Mg/2 Ml Vial) 4 mg IVPUSH Q8H PRN PRN Reason: Nausea and Vomiting Senna (Sennosides 8.6 Mg Tablet) 17.2 mg PO BEDTIME [facility] Last Admin: 09/13/24 20:17 Dose: Not Given Documented By: KEVIN Non-Admin Reason: Patient Refused Sodium Chloride (0.9 % Sodium Chloride Flush 3 Ml Syringe) 3 ml IVFLUSH QSHIFT [facility] Last Admin: 09/14/24 08:14 Dose: Not Given Documented By: BRITTA Non-Admin Reason: No Access Vitamin D (Cholecalciferol (Vitamin D3) 25 Mcg Tablet) 50 mcg PO DAILY [facility] Last Admin: 09/14/24 07:50 Dose: 50 mcg Documented By: BRITTA Labs 09/13/24 04:31 09/14/24 05:48 Labs: Laboratory Results - last 24 hr 09/13/24 09/14/24 09/14/24 12:00 05:48 06:33 VBG pH 7.34 VBG pCO2 49 VBG pO2 70 VBG HCO3 27 H VBG O2 Saturation 92.0 VBG Base Excess 0.8 Anion Gap 13 Estim Creat Clear Calc 36.2 Estimated GFR 36 Random Glucose 135 H Calcium 9.5 Respiratory Panel Harris See Note Adenovirus (Rapid PCR) Not Detected B.pert (TEM-PCR) Not Detected B.parapertussis DNA PCR Not Detected C. pneumoniae DNA (PCR) Not Detected Coronavirus OC43 (PCR) Detected A Coronavirus HKU1 (PCR) Not Detected Coronavirus 229E (PCR) Not Detected Coronavirus NL63 (PCR) Not Detected Human Metapneumovir PCR Not Detected Influenza A (RT-PCR) Not Detected Influenza B (RT-PCR) Not Detected M. pneumoniae (PCR) Not Detected Parainfluenza 1 (PCR) Not Detected Parainfluenza 2 (PCR) Not Detected Parainfluenza 3 (PCR) Not Detected Parainfluenza 4 (PCR) Not Detected RSV (PCR) Not Detected Entero/Rhino (PCR) Not Detected SARS-CoV-2 RNA (RT-PCR) Not Detected Microbiology Microbiology Results: Microbiology 09/12/24 16:41 Blood Culture - Final Blood - Venous Coag negative Staphylococcus 09/12/24 16:41 Blood Culture - Preliminary Blood - Venous No growth after 24 hours. Assessment and Plan (1) COPD (chronic obstructive pulmonary disease): Status: Acute Plan d3 for 63yo M with CKD4, COPD, HIV on ART, HFrEF, TERRY, HCV, mood disorder, hx polysubstance abuse in remission presenting with dypsnea + wheezing, admitted for COPD exacerbation COPD exacerbation, OC43 infection - continue IV methylprednisolone, nebulized bronchodilators, azithromycin, continue Breo, droplet precautions - CT chest 09/12/24: 1. No acute intrathoracic findings. 2. Stable peripheral opacities in the left upper lobe, posterior lower lobes and posterior right upper lobe, may represent scarring however neoplasm can not be excluded. Consider PET-CT for further evaluation. 3. Stable trace right pleural effusion with peripheral rind. 4. Emphysema and bronchiolar wall thickening. Previously noted endobronchial nodularities have resolved. - sees Dr Brooks as an outpt; should follow up with him for PET-CT - BCx contaminated [coag-negative staphylococcus], d/c ceftriaxone CKD4 - monitor SCr; appears at baseline chronic hypoxic resp failure - on 2L O2 at home hyperK, mild - give 10g Lokelma, recheck BMP in AM HIV, CD4 206 viral load<20 (04/19/24) - continue dolutegravir + lamivudine polysubstance abuse in remission - continue Suboxone mood disorder - continue lamotrigine chronic HFrEF - continue bumetanide TERRY - CPAP at night VTE ppx - enoxaparin dispo - PT consult In my clinical judgment, the patient requires continued inpatient hospitalization for the following reasons: COPD, hyperK Total time managing care of this patient today: 45 minutes. Quality Stroke Does the patient have a stroke diagnosis?: No VTE Prior VTE?: No VTE Risk Level:: Medical - moderate - high VTE Device Contraindication: N/A - Device Ordered VTE Drug Contraindication: N/A - Med Ordered
[2024-09-14] MEDS: Azithromycin 500 MG TABLET PO (12:25)
--- NOTE | 2024-09-14 13:26 | MHC.CM.PN ---
CM spoke to Keo at [facility], to say that we anticipate pt. will go home tomorrow. Eko informed CM that he will have PT at home from [facility] and [facility] will transport, CM to let them know he is with [facility] and no auth is needed. MD RODRIGUEZ and GI montes faxed to [facility] today, fax: [phone].
[2024-09-14] MEDS: 0.9 % Sodium Chloride Flush 3 ML SYRINGE IVFLUSH ×2 (16:02→20:31)
[2024-09-14] MEDS: Melatonin 3 MG TABLET 6 MG PO (20:42)
[2024-09-14] MEDS: Albuterol/Iprat 2.5/0.5MG 3 ML AMPUL.NEB INHALE (22:36)
--- NOTE | 2024-09-15 | ECG_ITS ---
Test Reason : rythm check Blood Pressure : */* mmHG Vent. Rate : 108 BPM Atrial Rate : 108 BPM P-R Int : 200 ms QRS Dur : 76 ms QT Int : 314 ms P-R-T Axes : 89 36 85 degrees QTcB Int : 420 ms Sinus tachycardia with Premature atrial complexes Anteroseptal infarct (cited on or before 12-Jan-2014) Abnormal ECG When compared with ECG of 12-Sep-2024 16:01, Premature ventricular complexes are no longer Present Premature atrial complexes are now Present Referred By: Tawanda Whitehead Electronically Signed By: Homar Nash
[2024-09-15 03:30] VITALS: BP 141/96; PULSE 136; RESP 22; TEMP 36.8; O2SAT 94
[2024-09-15] MEDS: guaiFENesin DM 100/10/5 ML 5 ML SYRUP 10 ML PO ×2 (05:08→20:09)
[2024-09-15 07:21] LABS: Anion Gap 15 (12-20); Blood Urea Nitrogen 66 mg/dL (9-16); Calcium 9.1 mg/dL (8.4-10.2); Carbon Dioxide 21 mmol/L (22-29); Chloride 102 mmol/L (96-108); Creatinine Clr Calc Pharmacy 26.1; Estimated Glomerular Filt Rate 24; Glucose Random 179 mg/dL (60-115); Potassium 4.6 mmol/L (3.3-5.1); Sodium 133 mmol/L (135-145)
[2024-09-15 07:24] VITALS: BP 165/99; PULSE 110; RESP 20; TEMP 36.8; O2SAT 97
[2024-09-15] MEDS: Fluticasone/Vilanterol 200/25 BLST.W.DEV 1 PUFF INHALE (08:05)
[2024-09-15 08:07] VITALS: PULSE 110; RESP 20; O2SAT 97
[2024-09-15] MEDS: LAMIVUDINE PO (09:03)
[2024-09-15] MEDS: lamoTRIgine 25 MG TABLET PO (09:03)
[2024-09-15] MEDS: Buprenorphine/Naloxone 12/3 mg FILM 1 FILM BUCCAL (09:03)
[2024-09-15] MEDS: methylPREDNISolone Sod Succ 40 MG/ML VIAL IVPUSH (09:03)
[2024-09-15] MEDS: Dolutegravir Sodium 50 MG TABLET PO (09:03)
[2024-09-15] MEDS: 0.9 % Sodium Chloride Flush 3 ML SYRINGE IVFLUSH (09:03)
[2024-09-15] MEDS: Cholecalciferol (Vitamin D3) 25 MCG TABLET 50 MCG PO (09:03)
[2024-09-15] MEDS: 0.9 % Sodium Chloride 500 ML 50 ML IVCONT (09:18)
--- NOTE | 2024-09-15 11:56 | P.PNIM_ITS ---
Subjective Subjective Date of Service: 09/15/24 Interval History: breathing improved SCr worse Review of Systems Review of Systems: Yes all other systems are reviewed and are negative Physical Exam 2 Vital Signs: Vital Signs: Last Vital Signs Temp 98.3 F 09/15/24 07:24 Pulse 110 H 09/15/24 08:07 Resp 20 09/15/24 08:07 BP 165/99 H 09/15/24 07:24 Pulse Ox 97 09/15/24 07:24 O2 Del Method Nasal Cannula 09/15/24 07:24 O2 Flow Rate 2 09/15/24 07:24 Oxygen Flow Rate 2 09/12/24 14:58 BMI result Body Mass Index 21.4 Gen: in no acute distress HEENT: sclera anicteric, moist mucus membranes Neck: supple Lungs: clear to auscultation bilaterally Heart: regular rate and rhythm, no murmurs Abd: soft, non-tender, non-distended Ext: no edema Skin: warm/well-perfused Neuro: alert and oriented x3, no focal findings Psych: appropriate affect Objective Data Active Medications Acetaminophen (Acetaminophen 325 Mg Tablet) 650 mg PO Q6H PRN PRN Reason: Pain, Mild 1-3,fever,headache Albuterol Sulfate (Albuterol Sulfate (0.083%) 2.5 Mg/3 Ml Vial.Neb) 2.5 mg INHALE Q4H PRN PRN Reason: Shortness of Breath/Wheezing Albuterol/Ipratropium (Albuterol/Iprat 2.5/0.5mg 3 Ml Ampul.Neb) 3 ml INHALE Q4H PRN PRN Reason: Shortness of Breath/Wheezing Last Admin: 09/14/24 22:36 Dose: 3 ml Documented By: VIVIANA Azithromycin (Azithromycin 500 Mg Tablet) 500 mg PO Q24H [facility] Last Admin: 09/14/24 12:25 Dose: 500 mg Documented By: BRITTA Benzonatate (Benzonatate 100 Mg Capsule) 100 mg PO TID PRN PRN Reason: Cough Last Admin: 09/14/24 20:41 Dose: 100 mg Documented By: ZOEY Comments: requested for cough Bumetanide (Bumetanide 1 Mg Tablet) 1 mg PO DAILY [facility]; Protocol Last Admin: 09/14/24 07:51 Dose: 1 mg Documented By: BRITTA Buprenorphine/Naloxone (Buprenorphine/Naloxone 12/3 Mg Film) 1 film BUCCAL DAILY [facility] Last Admin: 09/15/24 09:03 Dose: 1 film Documented By: BUNNY Calcium Carbonate (Calcium Carbonate 750 Mg Tab.Chew) 750 mg PO Q4H PRN PRN Reason: Heartburn Dolutegravir Sodium (Dolutegravir Sodium 50 Mg Tablet) 50 mg PO DAILY [facility] Last Admin: 09/15/24 09:03 Dose: 50 mg Documented By: BUNNY Enoxaparin Sodium (Enoxaparin Sodium 30 Mg/0.3 Ml Syringe) 30 mg SUBCUT Q24H [facility] Last Admin: 09/14/24 20:40 Dose: Not Given Documented By: ZOEY Non-Admin Reason: Patient Refused Fluticasone/Vilanterol (Fluticasone/Vilanterol 200/25 Blst.W.Dev) 1 puff INHALE DAILY [facility] Last Admin: 09/15/24 08:05 Dose: 1 puff Documented By: JOSE Guaifenesin/Dextromethorphan (Guaifenesin Dm 100/10/5 Ml 5 Ml Syrup) 10 ml PO Q6H PRN PRN Reason: Cough Last Admin: 09/15/24 05:08 Dose: 10 ml Documented By: ZOEY Comments: for cough Sodium Chloride (Ns) 500 mls @ 50 mls/hr IVCONT .Q10H [facility] Stop: 09/15/24 19:14 Last Admin: 09/15/24 09:18 Dose: 50 mls/hr Documented By: BUNNY Lamivudine (Lamivudine 100 Mg/10 Ml Solution) 100 mg PO DAILY [facility] Last Admin: 09/15/24 09:03 Dose: 100 mg Documented By: BUNNY Lamotrigine (Lamotrigine 25 Mg Tablet) 25 mg PO Q48H [facility] Last Admin: 09/15/24 09:03 Dose: 25 mg Documented By: BUNNY Magnesium Hydroxide (Milk Of Magnesia 30 Ml Oral.Susp) 30 ml PO DAILY PRN PRN Reason: Constipation Melatonin (Melatonin 3 Mg Tablet) 6 mg PO BEDTIME PRN PRN Reason: Insomnia Last Admin: 09/14/24 20:42 Dose: 6 mg Documented By: ZOEY Comments: requested for sleep Methylprednisolone Sodium Succinate (Methylprednisolone Sod Succ 40 Mg/Ml Vial) 40 mg IVPUSH BID [facility] Last Admin: 09/15/24 09:03 Dose: 40 mg Documented By: BUNNY Ondansetron HCl (Ondansetron Hcl 4 Mg/2 Ml Vial) 4 mg IVPUSH Q8H PRN PRN Reason: Nausea and Vomiting Senna (Sennosides 8.6 Mg Tablet) 17.2 mg PO BEDTIME [facility] Last Admin: 09/14/24 20:40 Dose: Not Given Documented By: ZOEY Non-Admin Reason: Patient Refused Sodium Chloride (0.9 % Sodium Chloride Flush 3 Ml Syringe) 3 ml IVFLUSH QSHIFT [facility] Last Admin: 09/15/24 09:03 Dose: 3 ml Documented By: BUNNY Vitamin D (Cholecalciferol (Vitamin D3) 25 Mcg Tablet) 50 mcg PO DAILY [facility] Last Admin: 09/15/24 09:03 Dose: 50 mcg Documented By: BUNNY Labs 09/13/24 04:31 09/15/24 06:37 Labs: Laboratory Results - last 24 hr 09/15/24 06:37 Anion Gap 15 Estim Creat Clear Calc 26.1 Estimated GFR 24 Random Glucose 179 H Calcium 9.1 Microbiology Microbiology Results: Microbiology 09/12/24 16:41 Blood Culture - Preliminary Blood - Venous No growth after 48 hours. 09/12/24 16:41 Blood Culture - Final Blood - Venous Coag negative Staphylococcus Assessment and Plan (1) COPD (chronic obstructive pulmonary disease): Status: Acute Plan d4 for 63yo M with CKD4, COPD, HIV on ART, HFrEF, TERRY, HCV, mood disorder, hx polysubstance abuse in remission presenting with dypsnea + wheezing, admitted for COPD exacerbation COPD exacerbation, OC43 infection - change IV methlyprednisolone to PO prednisone, continue nebulized bronchodilators, azithromycin, Breo, droplet precautions - CT chest 09/12/24: 1. No acute intrathoracic findings. 2. Stable peripheral opacities in the left upper lobe, posterior lower lobes and posterior right upper lobe, may represent scarring however neoplasm can not be excluded. Consider PET-CT for further evaluation. 3. Stable trace right pleural effusion with peripheral rind. 4. Emphysema and bronchiolar wall thickening. Previously noted endobronchial nodularities have resolved. - sees Dr Brooks as an outpt; should follow up with him for PET-CT to assess opacities as above - BCx contaminated [coag-negative staphylococcus], d/c'ed ceftriaxone AMBER/CKD4 - d/c bumetanide; give 500 mL NS, check urine studies, renal US, consult Nephrology chronic hypoxic resp failure - on 2L O2 at home hyperK, mild - resolved after 2 doses of Lokelma HIV, CD4 206 viral load<20 (04/19/24) - continue dolutegravir + lamivudine polysubstance abuse in remission - continue Suboxone mood disorder - continue lamotrigine chronic HFrEF - STOP bumetanide as above TERRY - CPAP at night VTE ppx - enoxaparin dispo - PT consulted, plan home with VNA eventually In my clinical judgment, the patient requires continued inpatient hospitalization for the following reasons: AMBER Total time managing care of this patient today: 35 minutes. Quality Stroke Does the patient have a stroke diagnosis?: No VTE Prior VTE?: No VTE Risk Level:: Medical - moderate - high VTE Device Contraindication: N/A - Device Ordered VTE Drug Contraindication: N/A - Med Ordered
[2024-09-15] MEDS: Azithromycin 500 MG TABLET PO (13:59)
[2024-09-15 14:46] LABS: Appearance Urine Clear; Color Urine Yellow; Glucose Urine UA Negative (Negative); Leukocyte Esterase Urine Negative (Negative); Nitrite Urine Negative (Negative); PH 5.5 (5.0-9.0); UMIC TRIGGER UA YES; Urine Blood Small (1+) (Negative); Urine Ketones Negative (Negative); Urine Protein >=1000 (4+) mg/dL (Neg-Trace)
[2024-09-15 14:59] LABS: Bacteria Urine None Seen (None Seen); RBC Urine 0-2 /HPF (0-2); Squamous Epithelial Cell Urine 0-2 /HPF (0-2); WBC Urine 0-5 /HPF (0-5)
[2024-09-15 15:12] LABS: Creatinine Urine 69.33 mg/dL
[2024-09-15 15:48] VITALS: BP 132/84; PULSE 99; RESP 23; TEMP 36.6; O2SAT 95
[2024-09-15 18:50] VITALS: BP 142/90; PULSE 95; RESP 21; TEMP 36.7; O2SAT 94
--- NOTE | 2024-09-15 19:03 | P.CONNP_ITS ---
History of Present Illness Reason for Consult Consult date: 09/15/24 Reason for consult: AMBER on CKD Chief Complaint Chief complaint: Shortness of Breath History of Present Illness Narrative: 63 year old male with CKD, HIV (on HAART), HFrEF, hepatitis C, hx cocaine and heroin abuse in remission and with numerous prior intubations for respiratory distress who presented to the emergency room from home via EMS complaining of progressively worsening shortness of breath over the last 2 days to a point where he has to stop and catch his breath after taking just a couple of steps. He describes an associated dry cough and wheezing but denies any chest pain, fevers or chills. When EMS got to his house, they administered 2 updraft treatments and 125 mg of IM Solu-Medrol but he was still wheezing after these interventions so they brought him in for further treatment. He smokes 4 - 5 cigarettes a day. In October of 2023 he required intubation which was complicated by placement of a tracheostomy and PEG tube which was removed.He was admitted for further management. During the course of hospital stay, he developed AMBER on CKD. Nephrology has been consulted to assist in his clinical care during his current hospital stay. Review of Systems Review of Systems Yes all other systems are reviewed and are negative PMFSH Past Medical History Medical History Respiratory failure Tachycardia Myocardial injury Pneumonia TERRY (obstructive sleep apnea) Pulmonary nodules Hepatitis C HIV disease COPD (chronic obstructive pulmonary disease) Social History Social History Household Members: Other Housing: Apartment Do you presently have visiting nurse or other home services: No Alcohol intake: former Comment: Sitter at bedside Patient Tobacco Use Status: Tobacco use Unknown Tobacco use type: Cigarette Cigarette Packs Per Day: 1 Cigarettes Per Day: 4 Years Smoked: 30 Years Substance Use Type: Marijuana service: No Meds Allergies Allergy/AdvReac Type Severity Reaction Status Date / Time No Known Allergies Allergy Unverified 09/12/24 15:02 Active Medications: Current Medications Acetaminophen (Acetaminophen 325 Mg Tablet) 650 mg PO Q6H PRN PRN Reason: Pain, Mild 1-3,fever,headache Albuterol Sulfate (Albuterol Sulfate (0.083%) 2.5 Mg/3 Ml Vial.Neb) 2.5 mg INHALE Q4H PRN PRN Reason: Shortness of Breath/Wheezing Albuterol/Ipratropium (Albuterol/Iprat 2.5/0.5mg 3 Ml Ampul.Neb) 3 ml INHALE Q4H PRN PRN Reason: Shortness of Breath/Wheezing Last Admin: 09/14/24 22:36 Dose: 3 ml Azithromycin (Azithromycin 500 Mg Tablet) 500 mg PO Q24H [facility] Last Admin: 09/15/24 13:59 Dose: 500 mg Benzonatate (Benzonatate 100 Mg Capsule) 100 mg PO TID PRN PRN Reason: Cough Last Admin: 09/14/24 20:41 Dose: 100 mg Bumetanide (Bumetanide 1 Mg Tablet) 1 mg PO DAILY [facility]; Protocol Last Admin: 09/14/24 07:51 Dose: 1 mg Buprenorphine/Naloxone (Buprenorphine/Naloxone 12/3 Mg Film) 1 film BUCCAL DAILY [facility] Last Admin: 09/15/24 09:03 Dose: 1 film Calcium Carbonate (Calcium Carbonate 750 Mg Tab.Chew) 750 mg PO Q4H PRN PRN Reason: Heartburn Dolutegravir Sodium (Dolutegravir Sodium 50 Mg Tablet) 50 mg PO DAILY [facility] Last Admin: 09/15/24 09:03 Dose: 50 mg Enoxaparin Sodium (Enoxaparin Sodium 30 Mg/0.3 Ml Syringe) 30 mg SUBCUT Q24H [facility] Last Admin: 09/14/24 20:40 Dose: Not Given Fluticasone/Vilanterol (Fluticasone/Vilanterol 200/25 Blst.W.Dev) 1 puff INHALE DAILY [facility] Last Admin: 09/15/24 08:05 Dose: 1 puff Guaifenesin/Dextromethorphan (Guaifenesin Dm 100/10/5 Ml 5 Ml Syrup) 10 ml PO Q6H PRN PRN Reason: Cough Last Admin: 09/15/24 05:08 Dose: 10 ml Sodium Chloride (Ns) 500 mls @ 50 mls/hr IVCONT .Q10H [facility] Stop: 09/15/24 19:14 Last Admin: 09/15/24 09:18 Dose: 50 mls/hr Lamivudine (Lamivudine 100 Mg/10 Ml Solution) 100 mg PO DAILY [facility] Last Admin: 09/15/24 09:03 Dose: 100 mg Lamotrigine (Lamotrigine 25 Mg Tablet) 25 mg PO Q48H [facility] Last Admin: 09/15/24 09:03 Dose: 25 mg Magnesium Hydroxide (Milk Of Magnesia 30 Ml Oral.Susp) 30 ml PO DAILY PRN PRN Reason: Constipation Melatonin (Melatonin 3 Mg Tablet) 6 mg PO BEDTIME PRN PRN Reason: Insomnia Last Admin: 09/14/24 20:42 Dose: 6 mg Ondansetron HCl (Ondansetron Hcl 4 Mg/2 Ml Vial) 4 mg IVPUSH Q8H PRN PRN Reason: Nausea and Vomiting Prednisone (Prednisone 20 Mg Tablet) 40 mg PO DAILY [facility] Last Admin: 09/15/24 13:45 Dose: Not Given Senna (Sennosides 8.6 Mg Tablet) 17.2 mg PO BEDTIME [facility] Last Admin: 09/14/24 20:40 Dose: Not Given Sodium Chloride (0.9 % Sodium Chloride Flush 3 Ml Syringe) 3 ml IVFLUSH QSHIFT [facility] Last Admin: 09/15/24 15:09 Dose: Not Given Vitamin D (Cholecalciferol (Vitamin D3) 25 Mcg Tablet) 50 mcg PO DAILY [facility] Last Admin: 09/15/24 09:03 Dose: 50 mcg Home Medications ?Medication ?Instructions ?Recorded ?Confirmed ?Last Taken ?Type albuterol sulfate 90 mcg/actuation 2 puff inhalation Q4H PRN Wheezing 03/28/24 09/12/24 Unknown History aerosol inhaler ascorbic acid (vitamin C) 500 mg 500 mg PO DAILY 03/28/24 09/12/24 09/11/24 History tablet (Vitamin C) aspirin 81 mg tablet,delayed 81 mg PO DAILY 03/28/24 09/12/24 09/11/24 History release cholecalciferol (vitamin D3) 25 50 mcg PO DAILY 03/28/24 09/12/24 09/11/24 History mcg (1,000 unit) tablet (Vitamin D3) dolutegravir 50 mg tablet (Tivicay) 50 mg PO DAILY 03/28/24 09/12/24 09/11/24 History lamivudine 100 mg tablet 100 mg PO DAILY 03/28/24 09/12/24 09/11/24 History lamotrigine 25 mg tablet 25 mg PO Q48H 03/28/24 09/12/24 09/11/24 History pantoprazole 40 mg tablet,delayed 40 mg PO DAILY@0630 03/28/24 09/12/24 09/11/24 History release torsemide 40 mg tablet 40 mg PO BID 03/28/24 09/12/24 09/11/24 History Oxygen Home Use 06/05/24 Unknown History ibuprofen 200 mg tablet 200 mg PO DAILY PRN Pain 09/12/24 09/12/24 Unknown History Physical Exam Vital Signs: Last Vital Signs Temp 98.1 F 09/15/24 18:50 Pulse 95 09/15/24 18:50 Resp 21 H 09/15/24 18:50 BP 142/90 H 09/15/24 18:50 Pulse Ox 94 09/15/24 18:50 O2 Del Method Room Air 09/15/24 18:50 O2 Flow Rate 2 09/15/24 07:24 Oxygen Flow Rate 2 09/12/24 14:58 BMI result Body Mass Index 21.4 Const General: no acute distress Orientation/consciousness: patient oriented x3 Eyes EOM: EOMs intact bilaterally Neck Neck: Yes supple Resp Auscultation: diminished lung sounds Cardio Rate: regular rate GI Palpation (GI): Soft to palpation Neuro General: patient oriented x3 Extrem General: Yes no pedal edema Results Lab Results 09/13/24 04:31 09/15/24 06:37 Lab results: Chemistry 09/13/24 09/14/24 09/15/24 04:31 05:48 06:37 Sodium 134 L 135 133 L Potassium 5.2 H D 5.4 H 4.6 Carbon Dioxide 18 L 21 L 21 L BUN 40 H 48 H 66 H Creatinine 2.01 H 1.91 H 2.65 H Calcium 9.3 9.5 9.1 Hematology 09/13/24 04:31 WBC 4.8 Hgb 11.3 L Plt Count 145 L Urinalysis 09/15/24 14:03 Urine Color Yellow Urine Appearance Clear Urine pH 5.5 Ur Specific [place] 1.020 Urine Protein >=1000 (4+) H Urine Glucose (UA) Negative Urine Ketones Negative Urine Blood Small (1+) H Urine Nitrite Negative Ur Leukocyte Esterase Negative Urine RBC 0-2 Urine WBC 0-5 Ur Squamous Epith Cells 0-2 Hyaline Casts 3-5 Urine Studies 09/15/24 14:03 Urine Creatinine 69.33 Assessment and Plan (1) Acute kidney injury superimposed on chronic kidney disease: Status: Acute Plan AMBER due to compromise in renal perfusion with resultant tubular injury Urine output good; No reason to suspect obstructive uropathy DDx- Kellen infectious GN/AIN- unlikely; Hold diuretics; Urine cocaine Bolus of fluid as ordered;Renal USS;No indication for renal replacement C/W current supportive care for now; Labs AM; Shall F/U closely Procedures Date of Service Date of Service: 09/15/24
[2024-09-16] MEDS: 0.9 % Sodium Chloride Flush 3 ML SYRINGE IVFLUSH ×2 (00:08→08:41)
[2024-09-16 03:55] VITALS: BP 134/83; PULSE 80; RESP 16; TEMP 36.9; O2SAT 97
[2024-09-16 06:49] LABS: Anion Gap 15 (12-20); Blood Urea Nitrogen 66 mg/dL (9-16); Calcium 8.8 mg/dL (8.4-10.2); Carbon Dioxide 20 mmol/L (22-29); Chloride 109 mmol/L (96-108); Creatinine Clr Calc Pharmacy 27.6; Estimated Glomerular Filt Rate 26; Glucose Random 124 mg/dL (60-115); Potassium 4.8 mmol/L (3.3-5.1); Sodium 139 mmol/L (135-145)
[2024-09-16 06:59] LABS: B Type Natriuretic Peptide 189 pg/mL (<100)
[2024-09-16 07:13] VITALS: BP 163/92; PULSE 97; RESP 18; TEMP 36.6; O2SAT 99
[2024-09-16] MEDS: Fluticasone/Vilanterol 200/25 BLST.W.DEV 1 PUFF INHALE (08:34)
[2024-09-16 08:36] VITALS: RESP 18; O2SAT 96
[2024-09-16] MEDS: LAMIVUDINE PO (08:40)
[2024-09-16] MEDS: Dolutegravir Sodium 50 MG TABLET PO (08:41)
[2024-09-16] MEDS: predniSONE 20 MG TABLET 40 MG PO (08:41)
[2024-09-16] MEDS: Buprenorphine/Naloxone 12/3 mg FILM 1 FILM BUCCAL (08:42)
[2024-09-16] MEDS: Cholecalciferol (Vitamin D3) 25 MCG TABLET 50 MCG PO (08:45)
--- NOTE | 2024-09-16 12:25 | P.F2F_ITS ---
Service Date Service Date: 09/16/24 Encounter Date of encounter: 09/16/24 Reasons for Services Signs and symptoms assessed: see PT consult Reason for halfway: medication management, medication treatment and teach disease management Reason for physical therapy: home safety and mobility, therapeutic exercises, gait/transfer training, assess need for DME, ADL training and energy conservation MD Overseeing Care: Nataliia Arroyo Homebound: Leaving the home is medically contraindicated at this time without the asist of a device and/or another person due th the listed conditions above and below. Reason homebound: unsteady gait / fall risk and shortness of breath with minimal effort Certification: Based on the above findings, I certify that this patient is confined to the home and needs intermittent halfway care, physical therapy and/or speech therapy, or continues to need occupational therapy. The patient is under my care, and I have initiated the establishment of the plan of care. The patient will be followed by a physician who will periodically review the plan of care. Time Spent With Patient Time: Total time managing care of this patient today ____ minutes.
--- NOTE | 2024-09-16 12:27 | P.DS_ITS ---
DS: Providers Provider Date of Service: 09/16/24 Date of admission: 09/12/24 20:02 Date of discharge: 09/16/24 Primary care physician: Nataliia Arroyo MD Consults: 09/15/24 08:40 Consult to Nephrology Routine Consulting Provider: [facility] Reason for consultation: amber/ckd DS: Diagnosis Discharge Diagnosis (1) Acute kidney injury superimposed on chronic kidney disease: Status: Acute (2) COPD exacerbation: Status: Acute (3) Hyperkalemia: Status: Resolved DS: Summary Hospital Course Hospital Course: From the history and physical by the admitting hospitalist, Tawanda Whitehead MD, 09/12/24: Patient is a 63 year old male with history of CKD, COPD, HIV (on HAART), HFrEF, TERRY, hepatitis C, mood disorder, hx cocaine and heroin abuse in remission and with numerous prior intubations for respiratory distress who presented to the emergency room from home via EMS complaining of progressively worsening shortness of breath over the last 2 days to a point where he has to stop and catch his breath after taking just a couple of steps. He describes an associated dry cough and wheezing but denies any chest pain, fevers or chills. When EMS got to his house, they administered 2 updraft treatments and 125 mg of IM Solu-Medrol but he was still wheezing after these interventions so they brought him in for further treatment. He reports compliance with his medications but unfortunately continues to smoke 4 - 5 cigarettes a day. Of note, he was admitted in respiratory distress in October of 2023 and required intubation which was complicated by placement of a tracheostomy and PEG tube (so far removed). A chest x-ray done tonight was concerning for pneumonia for which he received Ceftriaxone and Azithromycin but then a CT chest obtained thereafter had no findings to suggest pneumonia and was instead reported as showing areas of scarring vs possible malignancy with recommendation for a PET Scan. When I got to see him, he reportd feeling much better but was still wheezy so admission was requested. 63yo M with CKD4, COPD, HIV on ART [CD4 206, viral load <20 04/19/24), HFrEF, TERRY, HCV, mood disorder, and hx polysubstance abuse in remission presenting with dypsnea + wheezing and admitted for COPD exacerbation due to coronavirus OC43 infection. Hospital course by problem: COPD exacerbation triggered by OC43 infection - treated with IV methylprednisolone, then PO prednisone; azithromycin; bronchodilators - CT chest 09/12/24: 1. No acute intrathoracic findings. 2. Stable peripheral opacities in the left upper lobe, posterior lower lobes and posterior right upper lobe, may represent scarring however neoplasm can not be excluded. Consider PET-CT for further evaluation. 3. Stable trace right pleural effusion with peripheral rind. 4. Emphysema and bronchiolar wall thickening. Previously noted endobronchial nodularities have resolved. - Sees Dr Brooks as an outpt; should follow up with him for PET-CT to assess opacities as above AMBER/CKD4 - Bumetanide stopped; given 500 mL NS with improvement. Nephrology consulted and will follow up as an outpatient. hyperK, mild - Resolved after 2 doses of Lokelma. He was discharged home with VNA services/home PT. Time Attestation Discharge Coordination Time (in mins): 45 Quality: Safe Use of Opioids Does Pt have an Active Cancer Diagnosis on the Problem List?: No Quality: Stroke Does the patient have a stroke diagnosis?: No Physical Exam Vital Signs: Vital Signs: Last Vital Signs Temp 97.9 F 09/16/24 07:13 Pulse 97 09/16/24 07:13 Resp 18 09/16/24 08:36 BP 163/92 H 09/16/24 07:13 Pulse Ox 99 09/16/24 07:13 O2 Del Method Nasal Cannula 09/16/24 07:13 O2 Flow Rate 2 09/16/24 07:13 Oxygen Flow Rate 2 09/12/24 14:58 BMI result Body Mass Index 21.4 Gen: in no acute distress HEENT: sclera anicteric, moist mucus membranes Neck: supple Lungs: clear to auscultation bilaterally Heart: regular rate and rhythm, no murmurs Abd: soft, non-tender, non-distended Ext: no edema Skin: warm/well-perfused Neuro: alert and oriented x3, no focal findings Psych: appropriate affect DS: Data Data Completed and Pending Completed studies during hospitalization [Text1]: Laboratory Results WBC 4.8 X10*3/uL (4.8-10.8) 09/13/24 04:31 RBC 5.06 X10*6/uL (4.60-5.80) 09/13/24 04:31 Hgb 11.3 g/dl (14.0-18.0) L 09/13/24 04:31 Hct 36.3 % (42.0-52.0) L 09/13/24 04: MCV 71.7 fL (80.0-98.0) L 09/13/24 04:31 MCH 22.3 pg (27.0-33.0) L 09/13/24 04: MCHC 31.1 g/dl (31.0-36.0) 09/13/24 04: RDW 14.3 % (11.0-16.0) 09/13/24 04: Plt Count 145 X10*3/uL (160-400) L 09/13/24 04: MPV 10.0 fL (9.4-12.4) 09/13/24 04: Immature Gran % (Auto) 0.2 % (0.0-0.4) 09/13/24 04: Neut % (Auto) 86.6 % (45-73) H 09/13/24 04: Lymph % (Auto) 9.9 % (20-40) L 09/13/24 04: [place] % (Auto) 3.1 % (2-11) 09/13/24 04: Eos % (Auto) 0.0 % (0-4) 09/13/24 04: Baso % (Auto) 0.2 % (0-2) 09/13/24 04: Lymph # (Auto) 0.5 X10*3/uL (1.2-4.9) L 09/13/24 04:31 Cherokee # (Auto) 0.2 X10*3/uL (0.1-1.2) 09/13/24 04:31 Eos # (Auto) 0.0 X10*3/uL (0.0-0.4) 09/13/24 04: Baso # (Auto) 0.0 X10*3/uL (0.0-0.2) 09/13/24 04: Abs Immat Gran (auto) 0.01 X10*3/uL (0.00-0.03) 09/13/24 04:31 Absolute Neuts (auto) 4.2 x10*3/uL (2.0-8.3) 09/13/24 04:31 Absolute Nucleated RBC 0.000 X10*3/uL (0.0-0.012) 09/13/24 04:31 Nucleated RBC % (auto) 0.0 /100WBC (0.0-0.2) 09/13/24 04:31 VBG pH 7.34 (7.32-7.43) 09/14/24 06:33 VBG pCO2 49 mmHg 09/14/24 06:33 VBG pO2 70 mmHg 09/14/24 06:33 VBG HCO3 27 mmol/L (22-26) H 09/14/24 06:33 VBG O2 Saturation 92.0 % 09/14/24 06:33 VBG Base Excess 0.8 mmol/L 09/14/24 06:33 Sodium 139 mmol/L (135-145) 09/16/24 06:16 Potassium 4.8 mmol/L (3.3-5.1) 09/16/24 06:16 Chloride 109 mmol/L (96-108) H 09/16/24 06:16 Carbon Dioxide 20 mmol/L (22-29) L 09/16/24 06:16 Anion Gap 15 (12-20) 09/16/24 06:16 BUN 66 mg/dL (9-16) H 09/16/24 06:16 Creatinine 2.50 mg/dL (0.5-1.4) H 09/16/24 06:16 Estim Creat Clear Calc 27.6 09/16/24 06:16 Estimated GFR 26 09/16/24 06:16 Random Glucose 124 mg/dL (60-115) H 09/16/24 06:16 Lactic Acid 1.7 mmol/L (0.5-2.0) 09/12/24 16:41 Calcium 8.8 mg/dL (8.4-10.2) 09/16/24 06:16 Magnesium 2.0 mg/dL (1.6-2.6) 09/13/24 04:31 B-Natriuretic Peptide 189 pg/mL (<100) H 09/16/24 06:16 Procalcitonin 0.08 ng/mL 09/13/24 04:31 Urine Color Yellow 09/15/24 14:03 Urine Appearance Clear 09/15/24 14:03 Urine pH 5.5 (5.0-9.0) 09/15/24 14:03 Ur Specific Graff 1.020 (1.005-1.025) 09/15/24 14:03 Urine Protein >=1000 (4+) mg/dL (Neg-Trace) H 09/15/24 14:03 Urine Glucose (UA) Negative mg/dL (Negative) 09/15/24 14:03 Urine Ketones Negative mg/dL (Negative) 09/15/24 14:03 Urine Blood Small (1+) (Negative) H 09/15/24 14:03 Urine Nitrite Negative (Negative) 09/15/24 14:03 Ur Leukocyte Esterase Negative (Negative) 09/15/24 14:03 Urine RBC 0-2 /HPF (0-2) 09/15/24 14:03 Urine WBC 0-5 /HPF (0-5) 09/15/24 14:03 Ur Squamous Epith Cells 0-2 /HPF (0-2) 09/15/24 14:03 Urine Bacteria None Seen (None Seen) 09/15/24 14:03 Hyaline Casts 3-5 /LPF (0-2) 09/15/24 14:03 Ur Random Sodium 48.0 mmol/L 09/15/24 14:03 Urine Creatinine 69.33 mg/dL 09/15/24 14:03 Respiratory Panel Harris See Note 09/13/24 12:00 Adenovirus (Rapid PCR) Not Detected (Not Detect.) 09/13/24 12:00 B.pert (TEM-PCR) Not Detected (Not Detect.) 09/13/24 12:00 B.parapertussis DNA PCR Not Detected (Not Detect.) 09/13/24 12:00 C. pneumoniae DNA (PCR) Not Detected (Not Detect.) 09/13/24 12:00 Coronavirus OC43 (PCR) Detected (Not Detect.) A 09/13/24 12:00 Coronavirus HKU1 (PCR) Not Detected (Not Detect.) 09/13/24 12:00 Coronavirus 229E (PCR) Not Detected (Not Detect.) 09/13/24 12:00 Coronavirus NL63 (PCR) Not Detected (Not Detect.) 09/13/24 12:00 Human Metapneumovir PCR Not Detected (Not Detect.) 09/13/24 12:00 Influenza A (RT-PCR) Not Detected (Not Detect.) 09/13/24 12:00 Influenza Type A (PCR) NEGATIVE (Negative) 09/12/24 15:24 Influenza B (RT-PCR) Not Detected (Not Detect.) 09/13/24 12:00 Influenza Type B (PCR) NEGATIVE (Negative) 09/12/24 15:24 M. pneumoniae (PCR) Not Detected (Not Detect.) 09/13/24 12:00 Parainfluenza 1 (PCR) Not Detected (Not Detect.) 09/13/24 12:00 Parainfluenza 2 (PCR) Not Detected (Not Detect.) 09/13/24 12:00 Parainfluenza 3 (PCR) Not Detected (Not Detect.) 09/13/24 12:00 Parainfluenza 4 (PCR) Not Detected (Not Detect.) 09/13/24 12:00 RSV (PCR) Not Detected (Not Detect.) 09/13/24 12:00 RSV RNA Qual (PCR) NEGATIVE (Negative) 09/12/24 15:24 Entero/Rhino (PCR) Not Detected (Not Detect.) 09/13/24 12:00 SARS-CoV-2 RNA (RT-PCR) Not Detected (Not Detect.) 09/13/24 12:00 Impressions Chest X-Ray 09/12/24 15:30 IMPRESSION: Chronic interstitial lung disease with the multifocal pneumonia versus pulmonary edema and bilateral pleural effusions, moderate volume right greater than left. Abnormal left glenohumeral joint no fully included in the exam. Electronically signed by: Bobby Gifford MD 09/12/2024 03:51 PM [facility] [place] Discharge Patient Disposition: Home Health Service Discharge Diagnosis: COPD exacerbation chronic kidney disease Referrals: Kei Redmond MD [Physician] - 2 Weeks Nataliia Arroyo MD [Primary Care Provider] - 1 Week Jorge Brooks MD [Physician] - 2 Weeks Discharge Medications: New azithromycin 500 mg Tablet 500 mg PO Q24H Qty: 2 0RF prednisone 10 mg tablet See Rx Instructions .ROUTE .COMPLEX Qty: 6 0RF Rx Instructions: 2 tabs (20 mg) daily x 2 days, then 1 tab (10 mg) daily x 2 days Continued budesonide-formoterol [Symbicort] 160-4.5 mcg/actuation HFA aerosol inhaler 2 puff inhalation BID 30 Days Qty: 10.2 11RF buprenorphine-naloxone [Suboxone] 12-3 mg film 1 film buccal Q24H Qty: 30 0RF lamivudine 100 mg tablet 100 mg PO DAILY lamotrigine 25 mg tablet 25 mg PO Q48H Tivicay 50 mg tablet 50 mg PO DAILY albuterol sulfate 90 mcg/actuation Hfa Aerosol Inhaler 2 puff INHALATION Q4H PRN (Reason: Wheezing) aspirin 81 mg Tablet,Delayed Release (Dr/Ec) 81 mg PO DAILY ascorbic acid (vitamin C) [Vitamin C] 500 mg Tablet 500 mg PO DAILY pantoprazole 40 mg Tablet,Delayed Release (Dr/Ec) 40 mg PO DAILY@0630 cholecalciferol (vitamin D3) [Vitamin D3] 25 mcg (1,000 unit) Tablet 50 mcg PO DAILY ibuprofen 200 mg Tablet 200 mg PO DAILY PRN (Reason: Pain) (DME) Oxygen Home Use Kit See Rx Instructions .ROUTE Rx Instructions: As directed Discontinued torsemide 40 mg Tablet 40 mg PO BID Discharge Orders: Discharge Order (Routine); Ordered 09/16/24 Ordered By: Eugenia Cueto Diet: Advance to usual diet Activity on Discharge: As tolerated Stand Alone Forms: Patient Portal Discharge page Print Language: Maori Other Ambulatory Orders: Basic Metabolic Panel (Routine) Timeframe: 1 Week Facility: [facility] - Location: Laboratory Ordered By: Eugenia Cueto Care Plan Goals: pulmonary health kidney health Health Concerns: COPD exacerbation chronic kidney disease Plan of Treatment: take prednisone 20 mg daily x 2 days, then 10 mg daily x 2 days, then stop take azithromycin 500 mg daily x 2 days peripheral opacities in the left upper lobe, posterior lower lobes and posterior right upper lobe; may represent scarring however neoplasm can not be excluded. Consider PET-CT for further evaluation; follow up with Dr Brooks at [facility] Pul[facility]ology to order stop torsemide recheck BMP in 1 week follow up with research kennel supervisor in 2 weeks Please follow up with your primary care doctor within 1 week. Return to the hospital if you experience recurrent or worsening symptoms. Assessment: See Discharge Summary.
[2024-09-16] MEDS: Azithromycin 500 MG TABLET PO (13:07)
--- NOTE | 2024-09-16 13:28 | MHC.CM.PN ---
Addendum entered by Marie Munoz 09/16/24 13:53: PTS DAUGHTER WILL TRANSPORT Original Note: PT CLEARED TO DC TODAY CM SPOKE TO MARIEL DILLON AT [facility] SHE REPORTS SHE CANNOT ARRANGE SERVICES HOWEVER THE PCP WILL ON WEDNESDAY DCS AND F2F FAXED TO THEM AT [phone] THEY ARE AWARE PT WILL NEED BOTH SN AND PT
--- NOTE | 2024-09-16 14:23 | PC.NURSE ---
pt stated that his daughter is waiting for him in in the main entrance , Nursing staff had the wheelchair and oxygen tank in his room to bring him down for discharge . Pt stated that his family is waiting for him ,didn't wait for the nursing staff to bring him down .Pt left from his room and got to the elevator . All discharge instructions were given to the pt with understanding prior his leaving . Pt denied that he needs transport to get ambulance. Refused to use oxygen to go home , stated that he uses as needed at home . Pt was ambulating on RA in his room and no SOB noted or reported
== END 2024-09-16 14:23 | disposition home health service (06) ==
LOC: HO.ED 18:38 → HO.EDOVER 20:20 → HO.IMC 09-13 07:16
PROVIDERS: Admitting Provider Internal Medicine; Emergency Provider Emergency Medicine; PCP Internal Medicine; Visit Provider Family Medicine
DX: N17.9 Acute kidney failure, unspecified (principal); J44.1 Chronic obstructive pulmonary disease with (acute) exacerbation; E87.5 Hyperkalemia; J96.01 Acute respiratory failure with hypoxia; I50.20 Unspecified systolic (congestive) heart failure; F14.21 Cocaine dependence, in remission; R05.9 Cough, unspecified; J44.9 Chronic obstructive pulmonary disease, unspecified; N18.4 Chronic kidney disease, stage 4 (severe); R26.81 Unsteadiness on feet; Z21 Asymptomatic human immunodeficiency virus [HIV] infection status; Z86.19 Personal history of other infectious and parasitic diseases; Z79.899 Other long term (current) drug therapy; Z74.09 Other reduced mobility; Z03.818 Encounter for observation for suspected exposure to other biological agents ruled out
CPT/HCPCS: 0241U; 36415; 71046; 71260; 76775; 80048; 81001; 82570; 82803; 83605; 83735; 83880; 84145; 84300; 85025; 87040; 87147; 87205; 87633; 93005; 94640; 94660; 96361; 96372; 96374; 96375; 96376; 97162; 99222; 99285; J0696; J1650; J1939; J2919; Q9967

== ENCOUNTER → 2024-09-12 15:29 | Outpatient (BNV) | payer MEDICARE, SELFPAY | PROVIDERS: Admitting Provider Internal Medicine; Emergency Provider Emergency Medicine; PCP Internal Medicine; Visit Provider Internal Medicine Cardiovascular Disease | DX: I44.0 Atrioventricular block, first degree (principal); I25.2 Old myocardial infarction; I49.3 Ventricular premature depolarization | CPT/HCPCS: 93010 ==

== ENCOUNTER → 2024-09-12 15:30 | Outpatient (BNV) | payer OTHER, SELFPAY | PROVIDERS: Emergency Provider Emergency Medicine; PCP Internal Medicine; Visit Provider Radiology Diagnostic Radiology | DX: J43.9 Emphysema, unspecified (principal); J84.9 Interstitial pulmonary disease, unspecified | CPT/HCPCS: 71046; 71260 ==

== ENCOUNTER 2024-09-12 20:02 | Outpatient (BNV) | payer MEDICARE, SELFPAY | END 2024-09-15 13:12 | PROVIDERS: Admitting Provider Internal Medicine; Emergency Provider Emergency Medicine; PCP Internal Medicine; Visit Provider Radiology Diagnostic Radiology | DX: N17.9 Acute kidney failure, unspecified (principal) | CPT/HCPCS: 76775 ==

== ENCOUNTER 2024-09-12 20:02 | Outpatient (BNV) | payer MEDICARE, SELFPAY | END 2024-09-15 04:19 | PROVIDERS: Admitting Provider Internal Medicine; Emergency Provider Emergency Medicine; PCP Internal Medicine; Visit Provider Internal Medicine Cardiovascular Disease | DX: R00.0 Tachycardia, unspecified (principal); R94.31 Abnormal electrocardiogram [ECG] [EKG] | CPT/HCPCS: 93010 ==

== ENCOUNTER → 2024-09-12 20:02 | Outpatient (BNV) | payer OTHER, SELFPAY | PROVIDERS: Admitting Provider Internal Medicine; Emergency Provider Emergency Medicine; PCP Internal Medicine; Visit Provider Internal Medicine | DX: J41.1 Mucopurulent chronic bronchitis (principal) | CPT/HCPCS: 99232; 99239; G0180 ==

== ENCOUNTER → 2024-09-12 20:02 | Outpatient (BNV) | payer MEDICARE, SELFPAY | PROVIDERS: Admitting Provider Internal Medicine; Emergency Provider Emergency Medicine; PCP Internal Medicine; Visit Provider Internal Medicine Nephrology | DX: N17.9 Acute kidney failure, unspecified (principal); N18.9 Chronic kidney disease, unspecified | CPT/HCPCS: 99223 ==

== ENCOUNTER 2024-10-04 09:23 | Outpatient (AMB) | payer OTHER, SELFPAY ==
--- NOTE | 2024-10-04 09:24 | MHC.AM.SUB ---
Intake Visit Reasons: Tele Allergies No Known Allergies Allergy (Unverified 09/12/24 15:02) HPI HPI Tele: Details: Patient presents for follow up via telehealth Currently prescribed Suboxone 12mg QD Tolerating current dose, denies any side effects Completed cardiac rehab, and will be continuing at [facility] Review of Systems Const Reports as per HPI and Reports no additional complaints Telehealth Telehealth Telehealth Platform: Telephone Location of provider rendering services: practice address Location of patient: address on file Patient Identification confirmed using: Name, : Yes Telehealth method: voice only Patient verbally consented to treatment: Yes Patient verbally consented to billing insurance company: Yes Minutes spent on Phone/Video with Pt.: 15 PFSH Medical History Respiratory failure Tachycardia Myocardial injury Pneumonia TERRY (obstructive sleep apnea) Pulmonary nodules Hepatitis C HIV disease COPD (chronic obstructive pulmonary disease) Social History Household Members: Other Housing: Apartment Do you presently have visiting nurse or other home services: No Alcohol intake: former Comment: Sitter at bedside Patient Tobacco Use Status: Tobacco use Unknown Tobacco use type: Cigarette Cigarette Packs Per Day: 1 Cigarettes Per Day: 4 Years Smoked: 30 Years Substance Use Type: Marijuana service: No Assessment & Plan Assessment & Plan (1) Opioid use disorder: Code(s): F11.90 - Opioid use, unspecified, uncomplicated Category: Medical Plan: continue suboxone at current dose follow up 2 months Medications: Refilled buprenorphine-naloxone 12-3 mg (Suboxone) 1 film buccal Q24H 30 ea 1RF
--- OUTSIDE RECORDS SUMMARY | 2024-10-04 10:35 | XMS_ITS | Encounter Summary ---
Author Organization [facility] Address [address] [place] [address] Care Team Providers Care Food Prep Worker Name Role Phone Maryjo Reina DO Primary Care Pro vider Unavailable Marisol Valencia PA-C Primary Care Provider U Stephan Muñoz MD Unavailable Unavailable Loreta Bhagat MD Primary Care Provider [phone] Cyndy Jama NP Unavailable [phone] Jose Delgado MD Unavailable [phone] Encounter Details Date Type Department Care Team Description 04/16/2014 Carton Wrapper Report Medical Records [address] [place] [id number] Gus Jacobo MD Social History Tobacco Use [...] on filedocumented in this encounter Care Teams Food Prep Worker Relationship Specialty Start Date End Date Maryjo Reina DO PCP - General Internal Medicine 07/05/13 07/23/21 Marisol Valencia PA-C PCP - General Internal Medicine 07/24/21 08/31/21 Loreta Bhagat MD [address] [place] [address] PCP - General Internal Medicine 09/01/21 Stephan Mejia MD Dipper Operator Cardiovascular Disease 07/30/21 4 Cyndy Jama NP [address] [place] [address] Nurse Practitioner Cardiology 07/23/22 Jose Delgado MD [address] [place] [address] [address] [place] [address] Dipper Operator Cardiovascular Disease 04/24/24 documented as of this encounter
--- OUTSIDE RECORDS SUMMARY | 2024-10-04 10:35 | XMS_ITS | Encounter Summary ---
Author Organization [facility] Address [address] [place] [address] Care Team Providers Care Filtration Plant Operator Name Role Phone Siddharth Gadriner MD Primary Care Provider Unav Maryjo Putnam DO Primary Care Pro vider Unavailable Marisol Valencia PA-C Primary Care Provider U Stephan Muñoz MD Unavailable Unavailable Loreta Bhagat MD Primary Care Provider [phone] Cyndy Jama NP Unavailable [phone] Jose Delgado MD Unavailable [phone] Encounter Details Date Type Department Care Team Description 11/17/2012 Power Hammer Operator Report Medical Records [address] [place] [address] Joseph Goldsmith PA-C Social History Tobacco Use [...] on filedocumented in this encounter Care Teams Filtration Plant Operator Relationship Specialty Start Date End Date Siddharth Gardiner MD PCP - General Internal Medicine 10/14/12 3 Maryjo Reina DO PCP - General Internal Medicine 07/05/13 07/23/21 Marisol Valencia PA-C PCP - General Internal Medicine 07/24/21 08/31/21 Loreta Bhagat MD [address] [place] [address] PCP - General Internal Medicine 09/01/21 Stephan Mejia MD Carry All Driver Cardiovascular Disease 07/30/21 4 Cyndy Jama NP [address] [place] [address] Nurse Practitioner Cardiology 07/23/22 Jose Delgado MD [address] [place] [address] [address] [place] [address] Carry All Driver Cardiovascular Disease 04/24/24 documented as of this encounter
--- OUTSIDE RECORDS SUMMARY | 2024-10-04 10:35 | XMS_ITS | Encounter Summary ---
Author Organization [facility] Address [address] [place] [address] Care Team Providers Care Pulp Plant Supervisor Name Role Phone Maryjo Reina DO Primary Care Pro vider Unavailable Marisol Valencia PA-C Primary Care Provider U Stephan Muñoz MD Unavailable Unavailable Loreta Bhagat MD Primary Care Provider [phone] Cyndy Jama NP Unavailable [phone] Jose Delgado MD Unavailable [phone] Encounter Details Date Type Department Care Team Description 10/20/2013 Tire Buffer Report Medical Records [address] [place] [id number] [place] [address] Social History Tobacco Use Types Packs/Day Years [...] on filedocumented in this encounter Care Teams Pulp Plant Supervisor Relationship Specialty Start Date End Date [place] Colasacco, Maryjo, DO PCP - General Internal Medicine 07/05/13 07/23/21 Marisol Valencia PA-C PCP - General Internal Medicine 07/24/21 08/31/21 Loreta Bhagat MD [address] [place] [address] PCP - General Internal Medicine 09/01/21 Stephan Mejia MD Integrated Circuits Inspector Cardiovascular Disease 07/30/21 4 Cyndy Jama NP [address] [place] [address] Nurse Practitioner Cardiology 07/23/22 Jose Delgado MD [address] [place] [address] [place] [address] Integrated Circuits Inspector Cardiovascular Disease 04/24/24 documented as of this encounter
--- OUTSIDE RECORDS SUMMARY | 2024-10-04 10:35 | XMS_ITS | Encounter Summary ---
Author Organization [facility] Address [address] [place] [address] Care Team Providers Care Data Recovery Planner Name Role Phone Maryjo Reina DO Primary Care Pro vider Unavailable Marisol Valencia PA-C Primary Care Provider U Stephan Muñoz MD Unavailable Unavailable Loreta Bhagat MD Primary Care Provider [phone] Cyndy Jama NP Unavailable [phone] Jose Delgado MD Unavailable [phone] Encounter Details Date Type Department Care Team Description 12/15/2019 Conflict Resolution Professional Report Medical Records [address] [place] [address] Gilbert Guajardo MD Social History Tobacco Use [...] on filedocumented in this encounter Care Teams Data Recovery Planner Relationship Specialty Start Date End Date Maryjo Reina DO PCP - General Internal Medicine 07/05/13 07/23/21 Marisol Valencia PA-C PCP - General Internal Medicine 07/24/21 08/31/21 Loreta Bhagat MD [address] [place] [address] PCP - General Internal Medicine 09/01/21 Stephan Mejia MD Xm1 Tank Driver Cardiovascular Disease 07/30/21 4 Cyndy Jama NP [address] [place] [address] Nurse Practitioner Cardiology 07/23/22 Jose Delgado MD [address] [place] [address] [address] [place] [address] Xm1 Tank Driver Cardiovascular Disease 04/24/24 documented as of this encounter
--- OUTSIDE RECORDS SUMMARY | 2024-10-04 10:35 | XMS_ITS | Encounter Summary ---
Author Organization [facility] Address [address] [place] [address] Care Team Providers Care Vp Strategy Name Role Phone Stephan Mejia MD Unavailable Unavailable Loreta Bhagat MD Primary Care Provider [phone] Cyndy Jama NP Unavailable [phone] Jose Delgado MD Unavailable [phone] Encounter Details Date Type Department Care Team Description 12/30/2021 Hospital Medical Records [address] [place], [place] [id number] [place] [address] Social History Tobacco Use Types Packs/Day Years [...] on filedocumented in this encounter Care Teams Vp Strategy Relationship Specialty Start Date End Date Loreta Bhagat MD [address] [place] [address] PCP - General Internal Medicine 09/01/21 Stephan Mejia MD Show Host Cardiovascular Disease 07/30/21 4 Cyndy Jama NP [address] [place] [address] Nurse Practitioner Cardiology 07/23/22 Jose Delgado MD [address] [place] [address] [address] [place] [address] Show Host Cardiovascular Disease 04/24/24 documented as of this encounter
--- OUTSIDE RECORDS SUMMARY | 2024-10-04 10:35 | XMS_ITS | Encounter Summary ---
Author Organization [facility] Address [address] [place] [address] Care Team Providers Care Blast Furnace Tender Name Role Phone Siddharth Gardiner MD Primary Care Provider Unav Maryjo Putnam DO Primary Care Pro vider Unavailable Marisol Valencia PA-C Primary Care Provider U Stephan Muñoz MD Unavailable Unavailable Loreta Bhagat MD Primary Care Provider [phone] Cyndy Jama NP Unavailable [phone] Jose Delgado MD Unavailable [phone] Encounter Details Date Type Department Care Team Description 11/09/2012 Release of Information Medical Records [address] [place] [id number] Abstract, Provider Social History Tobacco Use Types [...] on filedocumented in this encounter Care Teams Blast Furnace Tender Relationship Specialty Start Date End Date Siddharth Gardiner MD PCP - General Internal Medicine 10/14/12 3 Maryjo Reina DO PCP - General Internal Medicine 07/05/13 07/23/21 Marisol Valencia PA-C PCP - General Internal Medicine 07/24/21 08/31/21 Loreta Bhagat MD [address] [place] [address] PCP - General Internal Medicine 09/01/21 Stephan Mejia MD Commodity Analyst Cardiovascular Disease 07/30/21 4 Cyndy Jama NP [address] [place] [address] Nurse Practitioner Cardiology 07/23/22 Jose Delgado MD [address] [place] [address] [address] [place] [address] Commodity Analyst Cardiovascular Disease 04/24/24 documented as of this encounter
--- OUTSIDE RECORDS SUMMARY | 2024-10-04 10:35 | XMS_ITS | Encounter Summary ---
Author Organization [facility] Address [address] [place] [address] Care Team Providers Care Tugboat Mate Name Role Phone Maryjo Reina DO Primary Care Pro vider Unavailable Marisol Valencia PA-C Primary Care Provider Stephan Carson MD Unavailable Unavailable Loreta Bhagat MD Primary Care Provider [phone] Cyndy Jama NP Unavailable [phone] Jose Delgado MD Unavailable [phone] Encounter Details Date Type Department Care Team Description 02/11/2020 Hospital Medical Records [address] [place] [address] Social History Tobacco Use Types Packs/Day Years [...] on filedocumented in this encounter Care Teams Tugboat Mate Relationship Specialty Start Date End Date Maryjo Reina DO PCP - General Internal Medicine 07/05/13 07/23/21 Marisol Valencia PA-C PCP - General Internal Medicine 07/24/21 08/31/21 Loreta Bhagat MD [address] [place] [address] PCP - General Internal Medicine 09/01/21 Stephan Mejia MD Principal Consultant Cardiovascular Disease 07/30/21 4 Cyndy Jama NP [address] [place] [address] Nurse Practitioner Cardiology 07/23/22 Jose Delgado MD [address] [place] [address] [place] [address] Principal Consultant Cardiovascular Disease 04/24/24 documented as of this encounter
--- OUTSIDE RECORDS SUMMARY | 2024-10-04 10:35 | XMS_ITS | Encounter Summary ---
Author Organization [facility] Address [address] [place] [address] Care Team Providers Care Historic Sites Supervisor Name Role Phone Maryjo Reina DO Primary Care Pro vider Unavailable Marisol Valencia PA-C Primary Care Provider U Stephan Muñoz MD Unavailable Unavailable Loreta Bhagat MD Primary Care Provider [phone] Cyndy Jama NP Unavailable [phone] Jose Delgado MD Unavailable [phone] Encounter Details Date Type Department Care Team Description 03/16/2014 Platform Consultant Report Medical Records [address] [place] [address] Lanre Tanner, DPM Social History Tobacco Use [...] on filedocumented in this encounter Care Teams Historic Sites Supervisor Relationship Specialty Start Date End Date Maryjo Reina DO PCP - General Internal Medicine 07/05/13 07/23/21 Marisol Valencia PA-C PCP - General Internal Medicine 07/24/21 08/31/21 Loreta Bhagat MD [address] [place] [address] PCP - General Internal Medicine 09/01/21 Stephan Mejia MD Credit Front Office Developer Cardiovascular Disease 07/30/21 4 Cyndy Jama NP [address] [place] [address] Nurse Practitioner Cardiology 07/23/22 Jose Delgado MD [address] [place] [address] [address] [place] [address] Credit Front Office Developer Cardiovascular Disease 04/24/24 documented as of this encounter
--- OUTSIDE RECORDS SUMMARY | 2024-10-04 10:35 | XMS_ITS | Encounter Summary ---
Author Organization [employer] [facility] Address [address] [place] [address] Care Team Providers Care Technical Spec Name Role Phone Stephan Mejia MD Unavailable Unavailable Loreta Bhagat MD Primary Care Provider [phone] Cyndy Jama NP Unavailable [phone] Jose Delgado MD Unavailable Reason for Visit * Reason Onset Date Comments APPOINTMENT 02/04/2023 Encounter Details Date Type Department Care Team Description 02/04/2023 Telephone Adult Medicine [facility] [address] [place] [address] [phone] Jewel Diaz, PAShanel [address] [place] [address] [phone] APPOINTMENT Social History Tobacco Use Types Packs/Day [...] - 02/04/2023 12:49 PM EDT Pt needs [facility] F/u per Jewel Diaz. Thanks documented in this encounter Plan of Treatment Not on file documented as of this encounter Visit Diagnoses Not on filedocumented in this encounter Care Teams Technical Spec Relationship Specialty Start Date End Date Loreta Bhagat MD [address] [place] [address] PCP - General Internal Medicine 09/01/21 Stephan Mejia MD Sharepoint Architect Cardiovascular Disease 07/30/21 4 Cyndy Jama NP [address] [place] [address] Nurse Practitioner Cardiology 07/23/22 Jose Delgado MD [address] [place] [address] [address] [place] [address] Sharepoint Architect Cardiovascular Disease 04/24/24 documented as of this encounter
--- OUTSIDE RECORDS SUMMARY | 2024-10-04 10:35 | XMS_ITS | Encounter Summary ---
Author Organization [facility] Address [address] [place] [address] Care Team Providers Care Athletics Teacher Name Role Phone Maryjo Reina DO Primary Care Pro vider Unavailable Marisol Valencia PA-C Primary Care Provider U Stephan Muñoz MD Unavailable Unavailable Loreta Bhagat MD Primary Care Provider [phone] Cyndy Jama NP Unavailable [phone] Jose Delgado MD Unavailable [phone] Encounter Details Date Type Department Care Team Description 04/02/2020 Hospital Medical Records [address] [place] [address] Yung Piper Social History Tobacco Use Types [...] on filedocumented in this encounter Care Teams Athletics Teacher Relationship Specialty Start Date End Date Maryjo Reina DO PCP - General Internal Medicine 07/05/13 07/23/21 Marisol Valencia PA-C PCP - General Internal Medicine 07/24/21 08/31/21 Loreta Bhagat MD [address] [place] [address] PCP - General Internal Medicine 09/01/21 Stephan Mejia MD Senior Android Developer Cardiovascular Disease 07/30/21 4 Cyndy Jama NP [address] [place] [address] Nurse Practitioner Cardiology 07/23/22 Jose Delgado MD [address] [place] [address] [address] [place] [address] Senior Android Developer Cardiovascular Disease 04/24/24 documented as of this encounter
--- OUTSIDE RECORDS SUMMARY | 2024-10-04 10:35 | XMS_ITS | Encounter Summary ---
Author Organization [facility] Address [address] [place] [address] Care Team Providers Care Touch Up Carver Name Role Phone Maryjo Reina DO Primary Care Pro vider Unavailable Marisol Valencia PA-C Primary Care Provider U Stephan Muñoz MD Unavailable Unavailable Loreta Bhagat MD Primary Care Provider [phone] Cyndy Jama NP Unavailable [phone] Jose Delgado MD Unavailable Encounter Details Date Type Department Care Team Description 05/02/2020 Sales Department Clerk Report Medical Records [address] [place] [address] [employer] Social History Tobacco Use Types Packs/Day [...] on filedocumented in this encounter Care Teams Touch Up Carver Relationship Specialty Start Date End Date Maryjo Reina DO PCP - General Internal Medicine 07/05/13 07/23/21 Marisol Valencia PA-C PCP - General Internal Medicine 07/24/21 08/31/21 Loreta Bhagat MD [address] [place] [address] PCP - General Internal Medicine 09/01/21 Stephan Mejia MD Court Reporter Cardiovascular Disease 07/30/21 4 Cyndy Jama NP [address] [place] [address] Nurse Practitioner Cardiology 07/23/22 Jose Delgado MD [address] [place] [address] [place] [address] [address] [address] Reporter Cardiovascular Disease 04/24/24 documented as of this encounter
--- OUTSIDE RECORDS SUMMARY | 2024-10-04 10:35 | XMS_ITS | Encounter Summary ---
Author Organization [facility] Address [address] [place] [address] Care Team Providers Care Manager Strategic Name Role Phone Stephan Mejia MD Unavailable Unavailable Loreta Bhagat MD Primary Care Provider [phone] Cyndy Jama NP Unavailable [phone] Jose Delgado MD Unavailable [phone] Reason for Visit * Reason Onset Date Comments er follow up 01/27/2023 Encounter Details Date Type Department Care Team Description 01/27/2023 Telephone Adult Medicine [facility] [address] [place] [address] [phone] Loreta Bhagat MD [address] [place] [address] [phone] er follow up Social History Tobacco Use Types Packs/Day Years [...] Miscellaneous Notes * Telephone Encounter - Johanne Miller - 01/28/2023 1:25 PM EDT Attempted to contact pt, phone line yehuda hollis * Telephone Encounter - Ezequiel Tapia - 01/27/2023 3:03 PM EDT ER follow-up appointment booked NO If ER or UC follow up, can be booked with APC or MD. If hospital admission follow up MUST be booked with a physician Appointment time: Provider visit is scheduled with: Hospital/UC center patient was treated at: [facility] Date of visit: 01/25/2023 Was this only an ER/UC visit or was the patient admitted to the hospital? ER visit only If patient was admitted what was the date of discharge? N/A Reason/diagnosis for visit or stay: Fall Was visit or stay related to an injury? NO If yes, what was the date of injury (DOI)? N/A If yes, was the injury due to N/A Tests performed: Lab: YES X-ray: YES EKG: YES Other tests. If yes, what?; N/A documented in this encounter Plan of Treatment Not on file documented as of this encounter Visit Diagnoses Not on filedocumented in this encounter Care Teams Manager Strategic Relationship Specialty Start Date End Date Loreta Bhagat MD [address] [place] [address] PCP - General Internal Medicine 09/01/21 Stephan Mejia MD Senior Water/Wastewater Engineer Cardiovascular Disease 07/30/21 4 Cyndy Jama NP [address] [place] [address] Nurse Practitioner Cardiology 07/23/22 Jose Delgado MD [address] [place] [address] [address] [place] [address] Senior Water/Wastewater Engineer Cardiovascular Disease 04/24/24 documented as of this encounter
--- OUTSIDE RECORDS SUMMARY | 2024-10-04 10:35 | XMS_ITS | Encounter Summary ---
Author Organization [facility] Address [address] [place] [address] Care Team Providers Care Care Asst Name Role Phone Stephan Mejia MD Unavailable Unavailable Loreta Bhagat MD Primary Care Provider [phone] Cyndy Jama NP Unavailable [phone] Jose Delgado MD Unavailable [phone] Encounter Details Date Type Department Care Team Description 11/25/2022 SCAN Medical Records [address] [place] [address] Abstract, Provider Social History Tobacco Use Types [...] on filedocumented in this encounter Care Teams Care Asst Relationship Specialty Start Date End Date Loreta Bhagat MD [address] [place] [address] PCP - General Internal Medicine 09/01/21 Stephan Mejia MD Dusting And Brushing Machine Operator Cardiovascular Disease 07/30/21 4 Cyndy Jama NP [address] [place] [address] Nurse Practitioner Cardiology 07/23/22 Jose Delgado MD [address] [place] [address] [place] [address] Dusting And Brushing Machine Operator Cardiovascular Disease 04/24/24 documented as of this encounter
--- OUTSIDE RECORDS SUMMARY | 2024-10-04 10:35 | XMS_ITS | Encounter Summary ---
Author Organization [facility] Address [address] [place] [address] Care Team Providers Care Salon Customer Experience Specialist Name Role Phone Maryjo Reina DO Primary Care Pro vider Unavailable Marisol Valencia PA-C Primary Care Provider U Stephan Muñoz MD Unavailable Unavailable Loreta Bhagat MD Primary Care Provider [phone] Cyndy Jama NP Unavailable [phone] Jose Delgado MD Unavailable [phone] Reason for Referral * Non [facility] (Routine) - Authorized/Booked Specialty Diagnoses / Procedures Referred By Sintia cruz Referred To Contact Oncology/Hematology Procedures REFERRAL TO ONCOLOGY/HEMATOLOGY (IN NETWORK) Maryjo Reina DO [address] [place] [address] Onc/[place] [address] [place] [address] Referral ID Status Reason Start Date Expiration Date V isits Requested Visits Authorized [id number] Authorized/B ooked 10/13/2019 10/12/2020 1 1 * Non [facility] (Routine) - Unable to reach/declined Specialty Diagnoses / Procedures Referred By Sintia cruz Referred To Contact Gastroenterology Procedures REFERRAL TO GASTROENTEROLOGY Maryjo Reina DO [address] [place] [address] Gastro [place]/[address] [facility] [address] [place] [phone] Referral ID Status Reason Start Date Expiration Date V isits Requested Visits Authorized [id number] 10/25 LTR Unable to reach/decli errol 10/13/2019 10/12/2020 12 12 Encounter Details Date Type Department Care Team Description 10/13/2019 Orders Only Adult Medicine [address] [address] Maryjo Reina DO Social History Tobacco Use [...] on filedocumented in this encounter Care Teams Salon Customer Experience Specialist Relationship Specialty Start Date End Date Maryjo Reina DO PCP - General Internal Medicine 07/05/13 07/23/21 Marisol Valencia PA-C PCP - General Internal Medicine 07/24/21 08/31/21 Loreta Bhagat MD [address] [place] [address] PCP - General Internal Medicine 09/01/21 Stephan Mejia MD Bowling Alley Refinisher Cardiovascular Disease 07/30/21 4 Cyndy Jama NP [address] [place] [address] Nurse Practitioner Cardiology 07/23/22 Jose Delgado MD [address] [place] [address] [address] [place] [address] Bowling Alley Refinisher Cardiovascular Disease 04/24/24 documented as of this encounter
--- OUTSIDE RECORDS SUMMARY | 2024-10-04 10:35 | XMS_ITS | Encounter Summary ---
Author Organization [facility] Address [address] [place] [address] Care Team Providers Care Deckhand Fishing Vessel Name Role Phone Maryjo Reina DO Primary Care Pro vider Unavailable Marisol Valencia PA-C Primary Care Provider Stephan Carson MD Unavailable Unavailable Loreta Bhagat MD Primary Care Provider [phone] Cyndy Jama NP Unavailable [phone] Jose Delgado MD Unavailable [phone] Reason for Visit * Reason Onset Date Comments REFERRAL 06/12/2014 gastro Encounter Details Date Type Department Care Team Description 06/12/2014 Telephone Gastroenterology - [address] [address] Maryjo Reina DO REFERRAL (gastro) Social History Tobacco Use Types Packs/Day Years [...] encounter Miscellaneous Notes * Telephone Encounter - Angle Andrews 06/12/2014 11:23 AM EST After attempting to contact patient via 2 calls/ 1 letter, patient has not contacted gastroenterology to schedule screening colonoscopy. At this time, patient will be removed from actively worked referral report until calling back to schedule procedure. documented in this encounter Plan of Treatment Not on file documented as of this encounter Visit Diagnoses Not on filedocumented in this encounter Care Teams Deckhand Fishing Vessel Relationship Specialty Start Date End Date Maryjo Reina DO PCP - General Internal Medicine 07/05/13 07/23/21 Marisol Valencia PA-C PCP - General Internal Medicine 07/24/21 08/31/21 Loreta Bhagat MD [address] [place] [address] PCP - General Internal Medicine 09/01/21 Stephan Mejia MD Floatlight Powder Mixer Cardiovascular Disease 07/30/21 4 Cyndy Jama NP [address] [place] [address] Nurse Practitioner Cardiology 07/23/22 Jose Delgado MD [address] [place] [address] [address] [place] [address] Floatlight Powder Mixer Cardiovascular Disease 04/24/24 documented as of this encounter
--- OUTSIDE RECORDS SUMMARY | 2024-10-04 10:35 | XMS_ITS | Encounter Summary ---
Author Organization [facility] Address [address] [place] [address] Care Team Providers Care Mri Ct Tech Name Role Phone Maryjo Reina DO Primary Care Pro vider Unavailable Marisol Valencia PA-C Primary Care Provider U Stephan Muñoz MD Unavailable Unavailable Loreta Bhagat MD Primary Care Provider [phone] Cyndy Jama NP Unavailable [phone] Jose Delgado MD Unavailable [phone] Encounter Details Date Type Department Care Team Description 06/05/2020 Release of Information Medical Records [address] [place] [address] Abstract, Provider Social History Tobacco Use Types [...] on filedocumented in this encounter Care Teams Mri Ct Tech Relationship Specialty Start Date End Date KraMaryjo Sanches DO PCP - General Internal Medicine 07/05/13 07/23/21 Marisol Valencia PA-C PCP - General Internal Medicine 07/24/21 08/31/21 Loreta Bhagat MD [address] [place] [address] PCP - General Internal Medicine 09/01/21 Stephan Mejia MD Chemical Analyst Cardiovascular Disease 07/30/21 4 Cyndy Jama NP [address] [place] [address] Nurse Practitioner Cardiology 07/23/22 Jose Delgado MD [address] [place] [address] [place] [address] Chemical Analyst Cardiovascular Disease 04/24/24 documented as of this encounter
--- OUTSIDE RECORDS SUMMARY | 2024-10-04 10:35 | XMS_ITS | Encounter Summary ---
Author Organization [facility] Address [address] [place] [address] Care Team Providers Care Accounting Professor Name Role Phone Maryjo Reina DO Primary Care Pro vider Unavailable Marisol Valencia PA-C Primary Care Provider U Stephan Muñoz MD Unavailable Unavailable Loreta Bhagat MD Primary Care Provider Cyndy Jama NP Unavailable [phone] Jose Delgado MD Unavailable [phone] Encounter Details Date Type Department Care Team Description 02/16/2014 Work Force Advisor Report Medical Records [address] [place] [address] Lanre Tanner, DPM Social History Tobacco Use [...] on filedocumented in this encounter Care Teams Accounting Professor Relationship Specialty Start Date End Date Maryjo Reina DO PCP - General Internal Medicine 07/05/13 07/23/21 Marisol Valencia PA-C PCP - General Internal Medicine 07/24/21 08/31/21 Loreta Bhagat MD [address] [place] [address] PCP - General Internal Medicine 09/01/21 Stephan Mejia MD Hot End Operator Cardiovascular Disease 07/30/21 4 Cyndy Jama NP [address] [place] [address] Nurse Practitioner Cardiology 07/23/22 Jose Delgado MD [address] [place] [address] [address] [place] [address] Hot End Operator Cardiovascular Disease 04/24/24 documented as of this encounter
--- OUTSIDE RECORDS SUMMARY | 2024-10-04 10:35 | XMS_ITS | Encounter Summary ---
Author Organization [facility] Address [address] [place] [address] Care Team Providers Care Workday Financials Consultant Name Role Phone Maryjo Reina DO Primary Care Pro vider Unavailable Marisol Valencia PA-C Primary Care Provider U Stephan Muñoz MD Unavailable Unavailable Loreta Bhagat MD Primary Care Provider [phone] Cyndy Jama NP Unavailable [phone] Jose Delgado MD Unavailable [phone] Encounter Details Date Type Department Care Team Description 11/17/2019 Release of Information Medical Records [address] [place] [address] Abstract, Provider Social History Tobacco Use Types [...] on filedocumented in this encounter Care Teams Workday Financials Consultant Relationship Specialty Start Date End Date KraMaryjo Sanches DO PCP - General Internal Medicine 07/05/13 07/23/21 Marisol Valencia PA-C PCP - General Internal Medicine 07/24/21 08/31/21 Loreta Bhagat MD [address] [place] [address] PCP - General Internal Medicine 09/01/21 Stephan Mejia MD Veterans Rehabilitation Counselor Cardiovascular Disease 07/30/21 4 Cyndy Jama NP [address] [place] [address] Nurse Practitioner Cardiology 07/23/22 Jose Delgado MD [address] [place] [address] [place] [address] Veterans Rehabilitation Counselor Cardiovascular Disease 04/24/24 documented as of this encounter
--- OUTSIDE RECORDS SUMMARY | 2024-10-04 10:35 | XMS_ITS | Encounter Summary ---
Author Organization [employer] [facility] Address [address] [place] [address] Care Team Providers Care Tomographic Tech Name Role Phone Maryjo Reina DO Primary Care Pro vider Unavailable Marisol Valencia PA-C Primary Care Provider U Stephan Muñoz MD Unavailable Unavailable Loreta Bhagat MD Primary Care Provider [phone] Cyndy Jama NP Unavailable [phone] Jose Delgado MD Unavailable [phone] Encounter Details Date Type Department Care Team Description 07/31/2020 Release of Information Medical Records [address] [place] [address] Abstract, Provider Social History Tobacco Use Types [...] on filedocumented in this encounter Care Teams Tomographic Tech Relationship Specialty Start Date End Date KraMaryjo Sanches DO PCP - General Internal Medicine 07/05/13 07/23/21 Marisol Valencia PA-C PCP - General Internal Medicine 07/24/21 08/31/21 Loreta Bhagat MD [address] [place] [address] PCP - General Internal Medicine 09/01/21 Stephan Mejia MD Director It Project Cardiovascular Disease 07/30/21 4 Cyndy Jama NP [address] [place] [address] Nurse Practitioner Cardiology 07/23/22 Jose Delgado MD [address] [place] [address] [place] [address] Director It Project Cardiovascular Disease 04/24/24 documented as of this encounter
--- OUTSIDE RECORDS SUMMARY | 2024-10-04 10:35 | XMS_ITS | Encounter Summary ---
Author Organization [facility] Address [address] [place] [address] Care Team Providers Care Sole Leather Cutting Machine Operator Name Role Phone Maryjo Reina DO Primary Care Pro vider Unavailable Marisol Valencia PA-C Primary Care Provider Stephan Carson MD Unavailable Unavailable Loreta Bhagat MD Primary Care Provider [phone] Cyndy Jama NP Unavailable [phone] Jose Delgado MD Unavailable Reason for Visit * Reason Onset Date Comments PT-1 09/15/2018 Encounter Details Date Type Department Care Team Description 09/15/2018 Telephone Adult Medicine [address] [address] Maryjo Reina DO PT-1 Social History Tobacco [...] M.A. - 09/23/2018 11:39 AM EST Tracking #[id number] * Telephone Encounter - Danielle Richter - 09/15/2018 11:56 AM EST 12/14/17 [facility] [place] patients will now be included in this workflow: Verify and document patients [place] Health insurance ID # (NOT [facility] ID): [id number] Payor: [employer] FFS / Plan: [employer] / Product Type: MEDICAID RISK Patient mailing address: [address] [place], [place] [address] [address] Pt. demographics verified? YES If not accurate, update registration. Is this a NEW request or a RENEWAL? NEW Name of treating facility: [facility] Name (first & last) of treating provider? required : Methadone clinic What is the medical reason why the patient is seeing the above provider? Substance abuse Address/Zip code for treating provider: [address] [place] [address] Phone # for treating provider: [phone] Is the provider in the [facility] network (do they accept [place] Health insurance)? YES What specialtly is this provider? Substance abuse When is the visit scheduled for? 09/16/18 How often you will be seeing this particular provider? Every day 7 days a week Do you have friends or family [...] on filedocumented in this encounter Care Teams Sole Leather Cutting Machine Operator Relationship Specialty Start Date End Date Maryjo Reina DO PCP - General Internal Medicine 07/05/13 07/23/21 Marisol Valencia PA-C PCP - General Internal Medicine 07/24/21 08/31/21 Loreta Bhagat MD [address] [place] [address] PCP - General Internal Medicine 09/01/21 Stephan Mejia MD Fitter Up Cardiovascular Disease 07/30/21 4 Cyndy Jama NP [address] [place] [address] Nurse Practitioner Cardiology 07/23/22 Jose Delgado MD [address] [place] [address] [address] [place] [address] Fitter Up Cardiovascular Disease 04/24/24 documented as of this encounter
--- OUTSIDE RECORDS SUMMARY | 2024-10-04 10:35 | XMS_ITS | Encounter Summary ---
Author Organization [facility] Address [address] [place] [address] Care Team Providers Care Sap Business Objects Consultant Name Role Phone Stephan Mejia MD Unavailable Unavailable Loreta Bhagat MD Primary Care Provider [phone] Cyndy Jama NP Unavailable [phone] Jose Delgado MD Unavailable [phone] Encounter Details Date Type Department Care Team Description 11/05/2021 Accounts Receivable Processor Report Medical Records [address] [place] [address] Katya Jacobsen MD Social History Tobacco Use [...] on filedocumented in this encounter Care Teams Sap Business Objects Consultant Relationship Specialty Start Date End Date Loreta Bhagat MD [address] [place] [address] PCP - General Internal Medicine 09/01/21 Stephan Mejia MD Miniature Set Constructor Cardiovascular Disease 07/30/21 4 Cyndy Jama NP [address] [place] [address] Nurse Practitioner Cardiology 07/23/22 Jose Delgado MD [address] [place] [address] [address] [place] [address] Miniature Set Constructor Cardiovascular Disease 04/24/24 documented as of this encounter
--- OUTSIDE RECORDS SUMMARY | 2024-10-04 10:35 | XMS_ITS | Encounter Summary ---
Author Organization [facility] Address [address] [place] [address] Care Team Providers Care Ticket Puller Name Role Phone Stephan Mejia MD Unavailable Unavailable Loreta Bhagat MD Primary Care Provider [phone] Cyndy Jama NP Unavailable [phone] Jose Delgado MD Unavailable [phone] Reason for Visit * Reason Onset Date Comments Call From Group Home 10/29/2022 Encounter Details Date Type Department Care Team Description 10/29/2022 Telephone Adult Medicine [address] [phone] Loreta Bhagat MD [address] [place] [address] [phone] Call From Group Home Social History Tobacco Use Types Packs/Day Years [...] AM EDT Called left a message for [facility] care to call me Please pass this call to me at EX [phone] * Telephone Encounter - Ruy Hines - 10/29/2022 11:11 AM EDT Estee from [facility] in [place] is calling to request that we fax the office notes from the patient's visit yesterday on 10/28/[address] Loreta Bhagat to them at fax # [phone]. documented in this encounter Plan of Treatment Not on file documented as of this encounter Visit Diagnoses Not on filedocumented in this encounter Care Teams Ticket Puller Relationship Specialty Start Date End Date Loreta Bhagat MD [address] [place] [address] PCP - General Internal Medicine 09/01/21 Stephan Mejia MD Electrical Project Engineer Cardiovascular Disease 07/30/21 4 Cyndy Jama NP [address] [place] [address] Nurse Practitioner Cardiology 07/23/22 Jose Delgado MD [address] [place] [address] [address] [place] [address] Electrical Project Engineer Cardiovascular Disease 04/24/24 documented as of this encounter
--- OUTSIDE RECORDS SUMMARY | 2024-10-04 10:35 | XMS_ITS | Encounter Summary ---
Author Organization [facility] Address [address] [place] [address] Care Team Providers Care Apartment Property Manager Name Role Phone Siddharth Gardiner MD Primary Care Provider Unav ailMaryjo Day DO Primary Care Pro vider Unavailable Marisol Valencia PA-C Primary Care Provider U Stephan Muñoz MD Unavailable Unavailable Loreta Bhagat MD Primary Care Provider [phone] Cyndy Jama NP Unavailable [phone] Jose Delgado MD Unavailable [phone] Reason for Visit * Reason Onset Date Comments Appointment-Internal Referral 12/08/2012 Encounter Details Date Type Department Care Team Description 12/08/2012 Telephone Adult Medicine [address] [phone] Siddharth Gardiner MD Appointment-Internal Referral Social History [...] encounter Miscellaneous Notes * Telephone Encounter - Seda Trivedi M.A. - 12/08/2012 2:55 PM EDT Please send the patient to an outside eye Doctor per Dr Hargrove. Thank you. * Telephone Encounter - Evelyn GodoyP.NPing - 12/08/2012 1:08 PM EDT Sent to [employer] pool message routed to eye dept * Telephone Encounter - Rashmi Jaramillo - 12/08/2012 12:18 PM EDT FYI Patient was referred to the Eye Dept. 2 documented phone calls and one letter was sent. Patient hasnot contacted our office to schedule an appointment. documented in this encounter Plan of Treatment Not on file documented as of this encounter Visit Diagnoses Not on filedocumented in this encounter Care Teams Apartment Property Manager Relationship Specialty Start Date End Date Siddharth Gardiner MD PCP - General Internal Medicine 10/14/12 3 Maryjo Reina DO PCP - General Internal Medicine 07/05/13 07/23/21 Marisol Valencia PA-C PCP - General Internal Medicine 07/24/21 08/31/21 Loreta Bhagat MD [address] [place] [address] PCP - General Internal Medicine 09/01/21 Stephan Mejia MD Yarn Wrapper Cardiovascular Disease 07/30/21 4 Cyndy Jama NP [address] [place] [address] Nurse Practitioner Cardiology 07/23/22 Jose Delgado MD [address] [place] [address] [place] [address] Yarn Wrapper Cardiovascular Disease 04/24/24 documented as of this encounter
--- OUTSIDE RECORDS SUMMARY | 2024-10-04 10:35 | XMS_ITS | Encounter Summary ---
Author Organization [facility] Address [address] [place] [address] Care Team Providers Care Landscaper Helper Name Role Phone Maryjo Reina DO Primary Care Pro vider Unavailable Marisol Valencia PA-C Primary Care Provider Stephan Carson MD Unavailable Unavailable Loreta Bhagat MD Primary Care Provider Cyndy Jama NP Unavailable [phone] Jose Delgado MD Unavailable [phone] Reason for Visit * Reason Onset Date Comments PT-1 09/15/2018 Encounter Details Date Type Department Care Team Description 09/15/2018 Telephone Adult Medicine [address] [address] Maryjo Reina DO PT-1 Social History Tobacco [...] M.A. - 09/23/2018 11:39 AM EST Tracking #[id number] * Telephone Encounter - Danielle Richter - 09/15/2018 12:08 PM EST 12/14/17 [facility] patients will now be included in this workflow: Verify and document patients [place] Health insurance ID # (NOT [facility] ID): [id number] Payor: [employer] / Plan: [employer] / Product Type: MEDICAID RISK Patient mailing address: [address] [place] [address] Dr Robel ABBOTT [address] Pt. demographics verified? YES If not accurate, update registration. Is this a NEW request or a RENEWAL? NEW Name of treating facility: [facility] Name (first & last) of treating provider? required : Dr. Maryjo Potter What is the medical reason why the patient is seeing the above provider? Primary care Address/Zip code for treating provider: [address] [place] [address] Phone # for treating provider: [phone] Is the provider in the [facility] (do they accept [place] [employer] insurance)? YES What specialtly is this [...] on filedocumented in this encounter Care Teams Landscaper Helper Relationship Specialty Start Date End Date Maryjo Reina DO PCP - General Internal Medicine 07/05/13 07/23/21 Marisol Valencia PA-C PCP - General Internal Medicine 07/24/21 08/31/21 Loreta Bhagat MD [address] [place] [address] PCP - General Internal Medicine 09/01/21 Stephan Mejia MD Nurse Aide Evaluator Cardiovascular Disease 07/30/21 4 Cyndy Jama NP [address] [place] [address] Nurse Practitioner Cardiology 07/23/22 Jose Delgado MD [address] [place] [address] DR[address] [place] [address] Nurse Aide Evaluator Cardiovascular Disease 04/24/24 documented as of this encounter
--- OUTSIDE RECORDS SUMMARY | 2024-10-04 10:35 | XMS_ITS | Encounter Summary ---
Author Organization [facility] Address [address] [place] [address] Care Team Providers Care Dryer And Washer Mechanic Name Role Phone Maryjo Reina DO Primary Care Pro vider Unavailable Marisol Valencia PA-C Primary Care Provider U Stephan Muñoz MD Unavailable Unavailable Loreta Bhagat MD Primary Care Provider [phone] Cyndy Jama NP Unavailable [phone] Jose Delgado MD Unavailable [phone] Encounter Details Date Type Department Care Team Description 10/09/2019 Stopperer Assembler Report Medical Records [address] [place] [address] Lelia Cruz PA-C [address] [address] Social History Tobacco Use Types [...] on filedocumented in this encounter Care Teams Dryer And Washer Mechanic Relationship Specialty Start Date End Date Maryjo Reina DO PCP - General Internal Medicine 07/05/13 07/23/21 Marisol Valencia PA-C PCP - General Internal Medicine 07/24/21 08/31/21 Loreta Bhagat MD [address] [place] [address] PCP - General Internal Medicine 09/01/21 Stephan Mejia MD Field Service Engineer Cardiovascular Disease 07/30/21 4 Cyndy Jama NP [address] [place] [address] Nurse Practitioner Cardiology 07/23/22 Jose Delgado MD [address] [place] [address] [place] [address] Field Service Engineer Cardiovascular Disease 04/24/24 documented as of this encounter
--- OUTSIDE RECORDS SUMMARY | 2024-10-04 10:35 | XMS_ITS | Encounter Summary ---
Author Organization [facility] Address [address] [place] [address] Care Team Providers Care Household Worker Name Role Phone Stephan Mejia MD Unavailable Unavailable Loreta Bhagat MD Primary Care Provider [phone] Cyndy Jama NP Unavailable [phone] Jose Delgado MD Unavailable [phone] Encounter Details Date Type Department Care Team Description 01/19/2022 Fluid Dynamicist Report Medical Records [address] [place] [address] Mihai Christy II Social History Tobacco Use Types Packs/Day Years [...] on filedocumented in this encounter Care Teams Household Worker Relationship Specialty Start Date End Date Loreta Bhagat MD [address] [place] [address] PCP - General Internal Medicine 09/01/21 Stephan Mejia MD Boiler Coverer Helper Cardiovascular Disease 07/30/21 4 Cyndy Jama NP [address] [place] [address] Nurse Practitioner Cardiology 07/23/22 Jose Delgado MD [address] [place] [address] [place] [address] Boiler Coverer Helper Cardiovascular Disease 04/24/24 documented as of this encounter
--- OUTSIDE RECORDS SUMMARY | 2024-10-04 10:35 | XMS_ITS | Encounter Summary ---
Author Organization [facility] Address [address] [place] [address] Care Team Providers Care Helmet Binder Name Role Phone Stephan Mejia MD Unavailable Unavailable Loreta Bhagat MD Primary Care Provider [phone] Cyndy Jama NP Unavailable [phone] Jose Delgado MD Unavailable [phone] Reason for Visit * Reason Onset Date Comments Medication 08/06/2022 Patient already has the PEG Encounter Details Date Type Department Care Team Description 08/06/2022 Refill Gastroenterology - [place] [address] [facility] [address] [place] [address] Roxanne Joseph MD Medication (Patient already has the PEG ) Social History Tobacco Use Types Packs/Day Years [...] on filedocumented in this encounter Care Teams Helmet Binder Relationship Specialty Start Date End Date Loreta Bhagat MD [address] [place] [address] PCP - General Internal Medicine 09/01/21 Stephan Mejia MD Sewer Pipe Offbearer Cardiovascular Disease 07/30/21 4 Cyndy Jama NP [address] [place] [address] Nurse Practitioner Cardiology 07/23/22 Jose Delgado MD [address] [place] [address] [address] [place] [address] Sewer Pipe Offbearer Cardiovascular Disease 04/24/24 documented as of this encounter
--- OUTSIDE RECORDS SUMMARY | 2024-10-04 10:35 | XMS_ITS | Continuity of Care Document ---
Author Organization [facility] Address [address] [facility] [address] [place] [address] Phone Care Team Providers Care Food Bagging Machine Operator Name Role Phone Pineda SMITH, Rosemary Unavailable Unavailable Allergies, Adverse Reactions, Alerts Substance Reaction Status Criticality No Known Allergies Active No Inform ation Medications Medication Instructions Dosage Effective Dates (start - stop) Status Comments Oxygen 2lpm via nasal cannula PRN - Active mirtazapine 7.5 mg tablet take 1 tablet by oral route every day at bedtime 7.5 MG - Active torsemide 5 mg tablet take 1 tablet by oral route every day 5 MG - Active albuterol sulfate HFA 90 mcg/actuation aerosol inhaler inhale 2 puff by inhalation route every 8 hr as needed - Active budesonide-formotero l HFA 160 mcg-4.5 mcg/actuation aerosol inhaler inhale 2 puff by inhalation route 2 times every day in the morning and evening 2.00 puff - Active Spiriva Respimat 1.25 mcg/actuation solution for inhalation inhale 2 puff by inhalation route every day 2.5 MCG - Active aspirin 81 mg tablet,delayed release take 1 tablet by oral route every day 81 MG - Active Advance Directives Directive Yes / No Effective Date File Name No Information Encounters Encounter Description Practice Location Reason(s) For Visit Diagnoses Date Provider [facility], [address] [address], [place], [place], [id number], tel:[phone] Panna Maria No Information Sep- 5 Pineda Riley. [address] [place], [id number] , [place]. tel:[phone] [facility], [address], [place], [place], [id number], [place] tel:[phone] Panna Maria Encounter for rehabilitation evaluation 5 Marcy Reyes. [address] [place], [address]. tel:[phone] [facility], [address], [place], [place], [id number], [place] tel:[phone] Panna Maria Acute Visit (chief complaint) COPD exacerbationMDD (major depressive disorder), recurrent episode, mildHeart failure with reduced ejection fraction (HFrEF, <= 40%) 5 Pineda Riley. [address] [place], [id number] , [place]. tel:[phone] [facility], [address], [place], [place], [id number], [place] tel:[phone] Panna Maria No Information 5 Pineda Riley. [address] [place], [id number] , [place]. tel:[phone] [facility], [address], [place], [place], [id number], [place] tel:[phone] Panna Maria No Information 5 Pineda Riley. [address] [place], [id number] , [place]. tel:[phone] [facility], [address], [place], [place], [id number], [place] tel:[phone] Panna Maria Encounter for rehabilitation evaluation 5 Karol William. [address] [place], [id number] , [place]. tel:[phone] [facility], [address], [place], [place], [id number], [place] tel:[phone] Panna Maria Difficulty in walkin g, not elsewhere classifiedEncounter for rehabilitation evaluation 5 Marcy Eric. [address] [place], [address]. tel:[phone] [facility], [address] [facility], [place], [place], [id number], [place] tel:[phone] Panna Maria Post Enrollment Evaluation (chief complaint) Opioid dependence on agonist therapyEncephalomalacia with cerebral infarctionCerebrovascular diseaseHIV diseaseAcquired immunocompromised stateCentrilobular emphysemaChronic respiratory failure with hypoxiaStatus post tracheostomyCKD (chronic kidney disease) stage 4, GFR 15-29 ml/minCoronary artery disease involving absentee-shawnee coronary artery of absentee-shawnee heart without angina pectorisHeart failure with reduced ejection fraction (HFrEF, <= 40%)Hypertensive heart and kidney disease with HF and with CKD stage IVGastroesophageal reflux disease without esophagitisBenign prostatic hyperplasia with lower urinary tract symptoms, symptom details unspecifiedSecondary hyperparathyroidism of renal originAnemia, unspecified typeChronic hepatitis B 5 Pineda Riley. [address] [place], [id number] , [place]. tel:[phone] [facility], [address] [facility], [place], [place], [id number], [place] tel:[phone] Panna Maria Encounter for nutrit ional assessmentAt risk for inadequate oral intakeIncreased nutritional needs 5 Normile Ning. [address] [place], [id number] , [place]. tel:[phone] [facility], [address] [facility], [place], [place], [id number], [place] tel:[phone] Panna Maria Opioid dependence, i n remissionTracheostomy status 5 Pineda Riley. [address] [place], [id number] , [place]. tel:[phone] [facility], [address] [facility], [place], [place], [id number], [place] tel:[phone] Panna Maria No Information 4 Pineda Rosemary. [address] [place], [place], [id number] , [place]. [phone] Family History Family Member Type Diagnosis Age At Onset No Information Immunizations Vaccine Date Status Comments Flu-IIV3,p-free administered Source: [facility] [place] [facility] Payers Payer name Insurance type Covered alliance party ID Jose E navas(s) Add2paper [id number] Social History Type Description Quantity Date Captured Comments Sex Male Smoking Status No Information Chief Complaint And Reason For Visit No Information Plan Of Treatment Date Type Action Status Referral Referred To: [facility] Ordered: Referrals: Pain Medicine. [facility]. Evaluate and treat Appointment date/timeframe: 08/30/2024 ordered Referral Ordered: Referrals: Pulmonary Rehab. Evaluate and treat Appointment date/timeframe: 08/15/2024 ordered Appointment Earl Rincon BOOKED History Of Present Illness Encounter Date Complaint History Of Prese nt Illness Acute Visit Earl is here f or follow up. He was supposed to come last week after his ED stay. He went to ED last week for increased in SOB, he was diagnosed with COPD exacerbation and was treated with antibiotics. Today, he states he is doing better, no cough, no SOB. His lungs sounds clear on exam. We discussed the findings on his CT imaging, which is not convincing for COPD exacerbation and looks more like fibrosis due to previous infections. Noted he is very anxious about any small degree in his body changes. He admits he is overly anxious since he lost his sister to end stage renal disease (the same as him) and both his parents to colorectal disease and cancer. He admits he is not sleeping well at night, states that's how he is, but admits taking naps during the day. States he was very anxious to see me today since his legs are really puffy , wondering if he has to restart diuretics. LungsCTA bilaterallyCV regular HR, no murmurLE +2 pitting edema [id number] weight increase in the past month and halfBP 124/60 Post Enrollment Evaluation Ashley spencer is here [...] and 2 recent admits om 2023 to [facility] with sepsis, MSSA bacteremia, AMBER on [...] failure. Has VNA for trach/wound care.Admit to [facility] from 11/27-12/22/2023 with sepsis, MSSA bacteremia and treated for, per notes, c.difficile colitis with fidaxomicin (NO colitis on scanned CT a/p from 12/01 & 12/11 so likely c.diff diarrhea NOT colitis.) and HIV regimen changed to Abacavir, dolutegravir & rilpivirine with AMBER on CKD.Readmit to [facility] from 12/30-01/09/2024 with anemia (Hgb 5.5) [...] if had colonoscopy - sounds like at [facility] had EGD only (as both parents who are had colon cancer) - if not should be scheduled Instructions Date Instruction Additional Infor ciera With reduced ejectio n fraction s/t non-ischemic cardiomyopathy of unknown etiology. Echo : The LV systolic function is severely reduced . The left ventricular ejection fraction is 20-25 %. He used to be on Torsemide 20mg BID, which was d/bucky in his last admission since having moderate and symptomatic orthostasis. He is now having 10Ib extra (over a month and half) while BP still at goal and within a good range. For now will start him on low dose Torsemide 5mg and will follow up with him in a week. Related to Heart failure with reduced ejection fraction (HFrEF, <= 40%) The patient has a lo ngstanding Hx of polysubstance use with underlying depressive mood. He states he used be taking medication in the past but not sure what and not sure why it was discontinued. Currently he is dealing with disturbed sleep pattern, heighten anxiety especially int the morning and poor appetite. Agree with low dose Mirtazapine. Will have follow up next week to determine the effectiveness of the medication. Related to MDD (major depressive disorder), recurrent episode, mild I saw and examined t he patient 2 days prior his ED admission, which was completely unremarkable. I am not still convinced that he had a full exacerbation and believe there is a degree of anxiety and panic attacks involved in this particular case. Nevertheless, he was treated with steroid and antibiotics and currently doing very well in terms of her pulmonary function. Related to COPD exacerbation Used to be receiving TAF for treatment [...] ASA. Related to Coronary artery disease involving absentee-shawnee coronary artery of absentee-shawnee heart without angina pectoris With baseline eGFR [...]
--- OUTSIDE RECORDS SUMMARY | 2024-10-04 10:35 | XMS_ITS | Encounter Summary ---
Author Organization [facility] Address [address] [place] [address] Care Team Providers Care Special Class Welder Name Role Phone Maryjo Reina DO Primary Care Pro vider Unavailable Marisol Valencia PA-C Primary Care Provider U Stephan Muñoz MD Unavailable Unavailable Loreta Bhagat MD Primary Care Provider [phone] Cyndy Jama NP Unavailable [phone] Jose Delgado MD Unavailable [phone] Encounter Details Date Type Department Care Team Description 03/29/2020 Hospital Medical Records [address] [place] [address] Samuel Allison Social History Tobacco Use Types Packs/Day Years [...] on filedocumented in this encounter Care Teams Special Class Welder Relationship Specialty Start Date End Date Maryjo Reina DO PCP - General Internal Medicine 07/05/13 07/23/21 Marisol Valencia PA-C PCP - General Internal Medicine 07/24/21 08/31/21 Loreta Bhagat MD [address] [place] [address] PCP - General Internal Medicine 09/01/21 Stephan Mejia MD Cellulose Insulation Helper Cardiovascular Disease 07/30/21 4 Cyndy Jama NP [address] [place] [address] Nurse Practitioner Cardiology 07/23/22 Jose Delgado MD [address] [place] [address] DRIVE [address] [place] [address] Cellulose Insulation Helper Cardiovascular Disease 04/24/24 documented as of this encounter
--- OUTSIDE RECORDS SUMMARY | 2024-10-04 10:35 | XMS_ITS | Encounter Summary ---
Author Organization [facility] Address [address] [place] [address] Care Team Providers Care Rn Assessment Name Role Phone Maryjo Reina DO Primary Care Pro vider Unavailable Marisol Valencia PA-C Primary Care Provider U Stephan Muñoz MD Unavailable Unavailable Loreta Bhagat MD Primary Care Provider Cyndy Jama NP Unavailable [phone] Jose Delgado MD Unavailable [phone] Encounter Details Date Type Department Care Team Description 02/22/2014 [facility] Only Adult Medicine [address] [address] Maryjo Reina DO Anemia; Vitamin D deficiency Social History Tobacco Use Types Packs/Day Years [...] as of this encounter Visit Diagnoses Diagnosis Anemia Anemia, unspecified Vitamin D deficiency Unspecified vitamin D deficiency documented in this encounter Care Teams Rn Assessment Relationship Specialty Start Date End Date Maryjo Reina DO PCP - General Internal Medicine 07/05/13 07/23/21 Marisol Valencia PA-C PCP - General Internal Medicine 07/24/21 08/31/21 Loreta Bhagat MD [address] [place] [address] PCP - General Internal Medicine 09/01/21 Stephan Mejia MD Pineapple Plantation Manager Cardiovascular Disease 07/30/21 4 Cyndy Jama NP [address] [place] [address] Nurse Practitioner Cardiology 07/23/22 Jose Delgado MD [address] [place] [address] [address] [place] [address] Pineapple Plantation Manager Cardiovascular Disease 04/24/24 documented as of this encounter
--- OUTSIDE RECORDS SUMMARY | 2024-10-04 10:35 | XMS_ITS | Encounter Summary ---
Author Organization [facility] Address [address] [place] [address] Care Team Providers Care Runstitching Machine Operator Name Role Phone Stephan Mejia MD Unavailable Unavailable Lroeta Bhagat MD Primary Care Provider [phone] Cyndy Jama NP Unavailable [phone] Jose Delgado MD Unavailable [phone] Encounter Details Date Type Department Care Team Description 11/15/2021 Hospital Medical Records [address] [place], [place] [id number] [place] [address] Social History Tobacco Use Types Packs/Day Years [...] on filedocumented in this encounter Care Teams Runstitching Machine Operator Relationship Specialty Start Date End Date Loreta Bhagat MD [address] [place] [address] PCP - General Internal Medicine 09/01/21 Stephan Mejia MD Cook Candy Cardiovascular Disease 07/30/21 4 Cyndy Jama NP [address] [place] [address] Nurse Practitioner Cardiology 07/23/22 Jose Delgado MD [address] [place] [address] [place] [address] Cook Candy Cardiovascular Disease 04/24/24 documented as of this encounter
--- OUTSIDE RECORDS SUMMARY | 2024-10-04 10:35 | XMS_ITS | Encounter Summary ---
Author Organization [facility] Address [address] [place] [address] Care Team Providers Care Nurse Advocate Name Role Phone Maryjo Reina DO Primary Care Pro vider Unavailable Marisol Valencia PA-C Primary Care Provider Stephan Carson MD Unavailable Unavailable Loreta Bhagat MD Primary Care Provider [phone] Cyndy Jama NP Unavailable [phone] Jose Delgado MD Unavailable [phone] Reason for Visit * Reason Onset Date Comments PT-1 10/27/2018 Encounter Details Date Type Department Care Team Description 10/27/2018 Telephone Adult Medicine [address] [address] Maryjo Reina DO PT-1 Social History Tobacco [...] M.A. - 11/06/2018 1:44 PM EDT Tracking #[id number] * Telephone Encounter - Bhupinder Tapia - 11/04/2018 10:22 AM EDT Apologies, correct MH number: [id number] * Telephone Encounter - Jasmyn Allison M.A. - 10/29/2018 3:24 PM EDT Please obtain correct MH #, thank you. * Telephone Encounter - Bhupinder Tapia - 10/27/2018 11:28 AM EDT 12/14/17 [facility] patients will now be included in this workflow: Verify and document patients [place] Health insurance ID # (NOT [facility] ID): [id number] Payor: [employer] / Plan: [employer] / Product Type: MEDICAID RISK Patient mailing address: [address] [place] [address] Pt. demographics verified? YES If not accurate, update registration. Is this a NEW request or a RENEWAL? new [facility] of [facility] facility[facility] Name (first & last) of treating provider? required : Ning Donato (npi: [id number]) What is the medical reason why the patient is seeing the above provider? Substance abuse Address/Zip code for treating provider: [address] [place] [address] Phone # for treating provider: [phone] Is the provider in the [facility] network (do they accept [place] Health [...] on filedocumented in this encounter Care Teams Nurse Advocate Relationship Specialty Start Date End Date Maryjo Reina DO PCP - General Internal Medicine 07/05/13 07/23/21 Marisol Valencia PA-C PCP - General Internal Medicine 07/24/21 08/31/21 Loreta Bhagat MD [address] [place] [address] PCP - General Internal Medicine 09/01/21 Stephan Mejia MD Data Solutions Architect Cardiovascular Disease 07/30/21 4 Cyndy Jama NP [address] [place] [address] Nurse Practitioner Cardiology 07/23/22 Jose Delgado MD [address] [place] [address] DRIVE [address] [place] [address] Data Solutions Architect Cardiovascular Disease 04/24/24 documented as of this encounter
--- OUTSIDE RECORDS SUMMARY | 2024-10-04 10:36 | XMS_ITS | Encounter Summary ---
Author Organization [employer] [facility] Address [address] [place] [address] Care Team Providers Care Kitchen Hand Name Role Phone Maryjo Reina DO Primary Care Pro vider Unavailable Marisol Valencia PA-C Primary Care Provider U Stephan Muñoz MD Unavailable Unavailable Loreta Bhagat MD Primary Care Provider [phone] Cyndy Jama NP Unavailable [phone] Jose Delgado MD Unavailable Encounter Details Date Type Department Care Team Description 11/07/2015 Hospital Medical Records [address] [place] [address] Hilario Mcelroy MD Social History Tobacco Use [...] on filedocumented in this encounter Care Teams Kitchen Hand Relationship Specialty Start Date End Date Maryjo Reina DO PCP - General Internal Medicine 07/05/13 07/23/21 Marisol Valencia PA-C PCP - General Internal Medicine 07/24/21 08/31/21 Loreta Bhagat MD [address] [place] [address] PCP - General Internal Medicine 09/01/21 Stephan Mejia MD Curriculum And Assessment Coordinator Cardiovascular Disease 07/30/21 4 Cyndy Jama NP [address] [place] [address] Nurse Practitioner Cardiology 07/23/22 Jose Delgado MD [address] [place] [address] DRIVE [address] [place] [address] Curriculum And Assessment Coordinator Cardiovascular Disease 04/24/24 documented as of this encounter
--- OUTSIDE RECORDS SUMMARY | 2024-10-04 10:36 | XMS_ITS | Encounter Summary ---
Author Organization [facility] Address [address] [place] [address] Care Team Providers Care Refinery Operator Coking Name Role Phone Stephan Mejia MD Unavailable Unavailable Loreta Bhagat MD Primary Care Provider [phone] Cyndy Jama NP Unavailable [phone] Jose Delgado MD Unavailable [phone] Encounter Details Date Type Department Care Team Description 04/30/2023 Telephone Adult Medicine [address] [address] Jewel Diaz PA-C [address] [place] [address] [phone] Social History Tobacco Use Types Packs/Day Years [...] faxed to Dr. Brooks office at Fax# [phone]. * Telephone Encounter - Jewel Diaz PA-C - 04/30/2023 5:40 PM EDT Can we request most recent office notes from [place] [facility], Dr. Brooks. documented in this encounter Plan of Treatment Not on file documented as of this encounter Visit Diagnoses Not on filedocumented in this encounter Care Teams Refinery Operator Coking Relationship Specialty Start Date End Date Loreta Bhagat MD [address] [place] [address] PCP - General Internal Medicine 09/01/21 Stephan Mejia MD Building Energy Retrofit Technician Cardiovascular Disease 07/30/21 4 Cyndy Jama NP [address] [place] [address] Nurse Practitioner Cardiology 07/23/22 Jose Delgado MD [address] [place] [address] [address] [place] [address] Building Energy Retrofit Technician Cardiovascular Disease 04/24/24 documented as of this encounter
--- OUTSIDE RECORDS SUMMARY | 2024-10-04 10:36 | XMS_ITS | Encounter Summary ---
Author Organization [facility] Address [address] [place] [address] Care Team Providers Care Benzol Still Operator Name Role Phone Stephan Mejia MD Unavailable Unavailable Loreta Bhagat MD Primary Care Provider [phone] Cyndy Jama NP Unavailable [phone] Jose Delgado MD Unavailable [phone] Encounter Details Date Type Department Care Team Description 10/05/2021 Hospital Medical Records [address] [place], [place] [id number] [place] [address] Social History Tobacco Use Types Packs/Day Years [...] on filedocumented in this encounter Care Teams Benzol Still Operator Relationship Specialty Start Date End Date Loreta Bhagat MD [address] [place] [address] PCP - General Internal Medicine 09/01/21 Stephan Mejia MD Mixing Place Supervisor Cardiovascular Disease 07/30/21 4 Cyndy Jama NP [address] [place] [address] Nurse Practitioner Cardiology 07/23/22 Jose Delgado MD [address] [place] [address] [address] [place] [address] Supervisor Cardiovascular Disease 04/24/24 documented as of this encounter
--- OUTSIDE RECORDS SUMMARY | 2024-10-04 10:36 | XMS_ITS | Encounter Summary ---
Author Organization [facility] Address [address] [place] [address] Care Team Providers Care Injection Mold Technician Name Role Phone Stephan Mejia MD Unavailable Unavailable Loreta Bhagat MD Primary Care Provider [phone] Cyndy Jama NP Unavailable [phone] Jose Delgado MD Unavailable [phone] Reason for Visit * Reason Onset Date Comments Medication 07/28/2022 Encounter Details Date Type Department Care Team Description 07/28/2022 Refill Gastroenterology - [place] [address] [facility] [address] [place] [address] Roxanne Joseph MD Medication Social [...] on filedocumented in this encounter Care Teams Injection Mold Technician Relationship Specialty Start Date End Date Loreta Bhagat MD [address] [place] [address] PCP - General Internal Medicine 09/01/21 Stephan Mejia MD Topology Professor Cardiovascular Disease 07/30/21 4 Cyndy Jama NP [address] [place] [address] Nurse Practitioner Cardiology 07/23/22 Jose Delgado MD [address] [place] [address] [place] [address] Topology Professor Cardiovascular Disease 04/24/24 documented as of this encounter
--- OUTSIDE RECORDS SUMMARY | 2024-10-04 10:36 | XMS_ITS | Encounter Summary ---
Author Organization [facility] Address [address] [place] [address] Care Team Providers Care Pattern Gater Name Role Phone Maryjo Reina DO Primary Care Pro vider Unavailable Marisol Valencia PA-C Primary Care Provider U Stephan Muñoz MD Unavailable Unavailable Loreta Bhagat MD Primary Care Provider [phone] Cyndy Jama NP Unavailable [phone] Jose Delgado MD Unavailable [phone] Encounter Details Date Type Department Care Team Description 11/05/2015 Hospital Medical Records [address] [place] [address] Hilario Mcelroy MD Social History Tobacco Use [...] filedocumented in this encounter Care Teams Pattern Gater Relationship Specialty Start Date End Date Maryjo Reina DO PCP - General Internal Medicine 07/05/13 07/23/21 Marisol Valencia PA-C PCP - General Internal Medicine 07/24/21 08/31/21 Loreta Bhagat MD [address] [place] [address] PCP - General Internal Medicine 09/01/21 Stephan Mejia MD Group Home Counselor Cardiovascular Disease 07/30/21 4 Cyndy Jama NP [address] [place] [address] Nurse Practitioner Cardiology 07/23/22 Jose Delgado MD [address] [place] [address] [address] [place] [address] Group Home Counselor Cardiovascular Disease 04/24/24 documented as of this encounter
--- OUTSIDE RECORDS SUMMARY | 2024-10-04 10:36 | XMS_ITS | Encounter Summary ---
Author Organization [facility] Address [address] [place] [address] Phone Care Team Providers Care Chart Clerk Name Role Phone Loreta Bhagat MD Primary Care Provider [phone] Encounter Details Date Type Department Care Team (Late st Contact Info) Description 07/07/2024 Documentation Only [facility] [address] [place] [id number] Ruy Mack DO [address] [place] [phone] Social History Tobacco Use Types Packs/Day Years [...] Visit [facility] [address] [place] [address] Ruy Mack DO [address] [place] [address] documented as of this encounter Visit Diagnoses Not on filedocumented in this encounter Care Teams Chart Clerk Relationship Specialty Start Date End Date Loreta Bhagat MD PCP - General Internal Medicine 10/22/23 documented as of this encounter
--- OUTSIDE RECORDS SUMMARY | 2024-10-04 10:36 | XMS_ITS | Encounter Summary ---
Author Organization [employer] [facility] Address [address] [place] [address] Care Team Providers Care Hop Sorter Name Role Phone Stephan Mejia MD Unavailable Unavailable Loreta Bhagat MD Primary Care Provider [phone] Cyndy Jama NP Unavailable [phone] Jose Delgado MD Unavailable [phone] Encounter Details Date Type Department Care Team Description 11/26/2023 Hospital Medical Records [address] [place] [address] [facility] Social History Tobacco Use Types Packs/Day Years [...] on filedocumented in this encounter Care Teams Hop Sorter Relationship Specialty Start Date End Date Loreta Bhagat MD [address] [place] [id number] PCP - General Internal Medicine 09/01/21 Stephan Mejia MD Lead C Developer Cardiovascular Disease 07/30/21 4 Cyndy Jama NP [address] [place] [address] Nurse Practitioner Cardiology 07/23/22 Jose Delgado MD [address] [place] [address] [place] [address] Lead C Developer Cardiovascular Disease 04/24/24 documented as of this encounter
--- OUTSIDE RECORDS SUMMARY | 2024-10-04 10:36 | XMS_ITS | Encounter Summary ---
Author Organization [facility] Address [address] [place] [address] Care Team Providers Care Veneer Redrier Name Role Phone Maryjo Reina DO Primary Care Pro vider Unavailable Marisol Valencia PA-C Primary Care Provider U Stephan Muñoz MD Unavailable Unavailable Loreta Bhagat MD Primary Care Provider [phone] Cyndy Jama NP Unavailable Jose Delgado MD Unavailable [phone] Encounter Details Date Type Department Care Team Description 10/08/2020 [facility] Consultant Report Medical Records [address] [place] [address] Joan Reilly MD Social History Tobacco Use [...] on filedocumented in this encounter Care Teams Veneer Redrier Relationship Specialty Start Date End Date Maryjo Reina DO PCP - General Internal Medicine 07/05/13 07/23/21 Marisol Valencia PA-C PCP - General Internal Medicine 07/24/21 08/31/21 Loreta Bhagat MD [address] [place] [address] PCP - General Internal Medicine 09/01/21 Stephan Mejia MD Gasket Inspector Cardiovascular Disease 07/30/21 4 Cyndy Jama NP [address] [place] [address] Nurse Practitioner Cardiology 07/23/22 Jose Delgado MD [address] [place] [address] [address] [place] [address] Gasket Inspector Cardiovascular Disease 04/24/24 documented as of this encounter
--- OUTSIDE RECORDS SUMMARY | 2024-10-04 10:36 | XMS_ITS | Encounter Summary ---
Author Organization [facility] Address [address] [place] [address] Care Team Providers Care Nurses Supervisor Name Role Phone Siddharth Gardiner MD Primary Care Provider Unav Maryjo Putnam DO Primary Care Pro vider Unavailable Marisol Valencia PA-C Primary Care Provider U Stephan Muñoz MD Unavailable Unavailable Loreta Bhagat MD Primary Care Provider [phone] Cyndy Jama NP Unavailable [phone] Jose Delgado MD Unavailable [phone] Encounter Details Date Type Department Care Team Description 02/21/2013 Billboard Erector Report Medical Records [address] [place] [address] Joseph Goldsmith PA-C Social History Tobacco Use [...] on filedocumented in this encounter Care Teams Nurses Supervisor Relationship Specialty Start Date End Date Siddharth Gardiner MD PCP - General Internal Medicine 10/14/12 3 Maryjo Reina DO PCP - General Internal Medicine 07/05/13 07/23/21 Marisol Valencia PA-C PCP - General Internal Medicine 07/24/21 08/31/21 Loreta Bhagat MD [address] [place] [address] PCP - General Internal Medicine 09/01/21 Stephan Mejia MD Title Checker Cardiovascular Disease 07/30/21 4 Cyndy Jama NP [address] [place] [address] Nurse Practitioner Cardiology 07/23/22 Jose Delgado MD [address] [place] [address] DRIVE [address] [place] [address] Title Checker Cardiovascular Disease 04/24/24 documented as of this encounter
--- OUTSIDE RECORDS SUMMARY | 2024-10-04 10:36 | XMS_ITS | Encounter Summary ---
Author Organization [facility] Address [address] [place] [address] Care Team Providers Care Ship'S Master Name Role Phone Maryjo Reina DO Primary Care Pro vider Unavailable Marisol Valencia PA-C Primary Care Provider Stephan Carson MD Unavailable Unavailable Loreta Bhagat MD Primary Care Provider [phone] Cyndy Jama NP Unavailable [phone] Jose Delgado MD Unavailable [phone] Reason for Visit * Reason Onset Date Comments Pulmonary Testing 12/20/2018 Note, Other 12/20/2018 Encounter Details Date Type Department Care Team Description 12/20/2018 Telephone Pulmonology - [place] [address] [facility] [address] [place] [address] Jorge Brooks MD Pulmonary Testing; [...] PM EDT PFT Faxed to [facility] at [facility]. * Telephone Encounter - Bekah Brooks - 12/20/2018 3:00 PM EDT [facility] its calling they need the whole entired Pft result of the patient documented in this encounter Plan of Treatment Not on file documented as of this encounter Visit Diagnoses Not on filedocumented in this encounter Care Teams Ship'S Master Relationship Specialty Start Date End Date Maryjo Reina DO PCP - General Internal Medicine 07/05/13 07/23/21 Marisol Valencia PA-C PCP - General Internal Medicine 07/24/21 08/31/21 Loreta Bhagat MD [address] [place] [address] PCP - General Internal Medicine 09/01/21 Stephan Mejia MD White Sugar Syrup Operator Cardiovascular Disease 07/30/21 4 Cyndy Jama NP [address] [place] [address] Nurse Practitioner Cardiology 07/23/22 Jose Delgado MD [address] [place] [address] [place] [address] White Sugar Syrup Operator Cardiovascular Disease 04/24/24 documented as of this encounter
--- OUTSIDE RECORDS SUMMARY | 2024-10-04 10:36 | XMS_ITS | Encounter Summary ---
Author Organization [employer] [facility] Address [address] [place] [address] Care Team Providers Care Supervisor Firearms Name Role Phone Stephan Mejia MD Unavailable Unavailable Loreta Bhagat MD Primary Care Provider Cyndy Jama NP Unavailable [phone] Jose Delgado MD Unavailable [phone] Encounter Details Date Type Department Care Team Description 04/12/2024 Telephone Adult Medicine [address] [id number] Loreta Bhagat MD [address] [place] [address] [phone] Social History Tobacco Use Types Packs/Day Years [...] on filedocumented in this encounter Care Teams Supervisor Firearms Relationship Specialty Start Date End Date Loreta Bhagat MD [address] [place] [address] PCP - General Internal Medicine 09/01/21 Stephan Mejia MD Vice President Payment Cardiovascular Disease 07/30/21 4 Cyndy Jama NP [address] [place] [address] Nurse Practitioner Cardiology 07/23/22 Jose Delgado MD [address] [place] [address] DR[address] [place] [address] Vice President Payment Cardiovascular Disease 04/24/24 documented as of this encounter
--- OUTSIDE RECORDS SUMMARY | 2024-10-04 10:36 | XMS_ITS | Encounter Summary ---
Author Organization [facility] Address [address] [place] [address] Care Team Providers Care Architectural Job Captain Name Role Phone Maryjo Reina DO Primary Care Pro vider Unavailable Marisol Valencia PA-C Primary Care Provider U Stephan Muñoz MD Unavailable Unavailable Loreta Bhagat MD Primary Care Provider [phone] Cyndy Jama NP Unavailable [phone] Jose Delgado MD Unavailable [phone] Encounter Details Date Type Department Care Team Description 07/24/2019 Vice President Financial Report Medical Records [address] [place] [address] Abstract, Provider Social History Tobacco Use Types [...] filedocumented in this encounter Care Teams Architectural Job Captain Relationship Specialty Start Date End Date Maryjo Reina, DO PCP - General Internal Medicine 07/05/13 07/23/21 Marisol Valencia PA-C PCP - General Internal Medicine 07/24/21 08/31/21 Loreta Bhagat MD [address] [place] [address] PCP - General Internal Medicine 09/01/21 Stephan Mejia MD Master Cosmetologist Cardiovascular Disease 07/30/21 4 Cyndy Jama NP [address] [place] [address] Nurse Practitioner Cardiology 07/23/22 Jose Delgado MD [address] [place] [address] [place] [address] Master Cosmetologist Cardiovascular Disease 04/24/24 documented as of this encounter
--- OUTSIDE RECORDS SUMMARY | 2024-10-04 10:36 | XMS_ITS | Encounter Summary ---
Author Organization [facility] Address [address] [place] [address] Care Team Providers Care Playground Director Name Role Phone Marisol Valencia PA-C Primary Care Provider U Stephan Muñoz MD Unavailable Unavailable Loreta Bhagat MD Primary Care Provider [phone] Cyndy Jama NP Unavailable [phone] Jose Delgado MD Unavailable [phone] Encounter Details Date Type Department Care Team Description 08/19/2021 SCAN Medical Records [address] [place] [address] Abstract, Provider Social History Tobacco Use Types [...] have Coronavirus / COVID-19? No / Unsure 08/15/2021 2:35 PM EST documented as of this encounter Plan of Treatment Not on file documented as of this encounter Procedures Procedure Name Priority Date/Time Associated Diagnosis Comments OUTSIDE LAB Routine 08/19/2021 documented in this encounter Results * OUTSIDE LAB (08/19/2021) Provider Abstract LAB documented in this encounter Visit Diagnoses Not on filedocumented in this encounter Care Teams Playground Director Relationship Specialty Start Date End Date Marisol Valencia PA-C PCP - General Internal Medicine 07/24/21 08/31/21 Loreta Bhagat MD [address] [place] [address] PCP - General Internal Medicine 09/01/21 Stephan Mejia MD Vice President Quality Cardiovascular Disease 07/30/21 4 Cyndy Jama NP [address] [place] [address] Nurse Practitioner Cardiology 07/23/22 Jose Delgado MD [address] [place] [address] [place] [address] Vice President Quality Cardiovascular Disease 04/24/24 documented as of this encounter
--- OUTSIDE RECORDS SUMMARY | 2024-10-04 10:36 | XMS_ITS | Encounter Summary ---
Author Organization [facility] Address [address] [place] [address] Care Team Providers Care Aluminum Container Tester Name Role Phone Stephan Mejia MD Unavailable Unavailable Loreta Bhagat MD Primary Care Provider [phone] Cyndy Jama NP Unavailable [phone] Jose Delgado MD Unavailable [phone] Encounter Details Date Type Department Care Team Description 10/02/2023 Hospital Medical Records [address] [place] [address] [facility] Social History Tobacco Use Types Packs/Day [...] on filedocumented in this encounter Care Teams Aluminum Container Tester Relationship Specialty Start Date End Date Loreta Bhagat MD [address] [place] [address] [phone] PCP - General Internal Medicine 09/01/21 Stephan Mejia MD Rotor Pilot Cardiovascular Disease 07/30/21 4 Cyndy Jama NP [address] [place] [address] Nurse Practitioner Cardiology 07/23/22 Jose Delgado MD [address] [place] [address] [place] [address] Rotor Pilot Cardiovascular Disease 04/24/24 documented as of this encounter
--- OUTSIDE RECORDS SUMMARY | 2024-10-04 10:36 | XMS_ITS | Encounter Summary ---
Author Organization [facility] Address [address] [place] [address] Care Team Providers Care Nut Threader Name Role Phone Stephan Mejia MD Unavailable Unavailable Loreta Bhagat MD Primary Care Provider [phone] Cyndy Jama NP Unavailable [phone] Jose Delgado MD Unavailable [phone] Encounter Details Date Type Department Care Team Description 01/01/2024 Hospital Medical Records [address] [place] [address] [facility] Social History Tobacco Use Types Packs/Day [...] on filedocumented in this encounter Care Teams Nut Threader Relationship Specialty Start Date End Date Loreta Bhagat MD [address] [place] [address] [id number] PCP - General Internal Medicine 09/01/21 Stephan Mejia MD Life Enrichment Specialist Cardiovascular Disease 07/30/21 4 Cyndy Jama NP [address] [place] [address] Nurse Practitioner Cardiology 07/23/22 Jose Delgado MD [address] [place] [address] [place] [address] Life Enrichment Specialist Cardiovascular Disease 04/24/24 documented as of this encounter
--- OUTSIDE RECORDS SUMMARY | 2024-10-04 10:36 | XMS_ITS | Clinical Summary ---
Author Organization [facility] [employer] Address [address] [place] [address] Phone Care Team Providers Care Digital Media Associate Name Role Phone Loreta Bhagat MD Primary Care Provider [phone] Allergies No known active allergies Medications abacavir (ZIAGEN) 20 mg/mL solution Take 30 mL by mouth daily. Active acetaminophen (TYLENOL) 500 mg tablet Take 2 Tablets by mouth every 8 hours as needed for Pain. 4 Active albuterol HFA (PROAIR HFA ; PROVENTIL HFA ; VENTOLIN HFA) 90 mcg/actuation inhaler Inhale 2 Puffs into the lungs every 4 hours as needed for Cough. Insert SmartText 2 Active ascorbic acid (VITAMIN C) 250 mg tablet 2 Tablets by Enteral route daily. 4 Active aspirin 81 mg EC tablet Take 1 Tablet by mouth daily. 0 Active bictegravir-emtr icitabine-tenofo vir alafenamide (Biktarvy) 50-200-25 mg per tablet Take 1 tablet by mouth daily. 9 Active epoetin kellen-epbx (Retacrit) 20,000 unit/2 mL solution Inject 20,000 Units into the skin once a week. 4 Active fluticasone propionate (FLONASE) 50 mcg/actuation nasal spray USE 2 SPRAYS IN EACH NOSTRIL TWICE A DAY FOR 1 WEEK THEN USE 1 SPRAY DAILY NEEDED 3 Active lamiVUDine (EPIVIR) 100 mg tablet Take 1 Tablet by mouth daily. 4 Active guaiFENesin (ROBITUSSIN) 100 mg/5 mL liquid Take 10 mL by mouth every 4 hours as needed for Cough. 4 Active lamoTRIgine (LaMICtal) 25 mg tablet Take [...] 1 Tablet by mouth 2 times daily. 4 Active polyethylene glycol (MIRALAX) 17 gram packet 1 Packet by Enteral route daily as needed. 4 Active QUEtiapine (SEROquel) 100 mg tablet Take 1 Tablet by mouth at bedtime. Active tiotropium (Spiriva Respimat) 2.5 mcg/actuation inhalation spray Inhale 5 mcg into the lungs daily. 3 Active torsemide (DEMADEX) 20 mg tablet Take 2 Tablets by mouth 2 times daily. 4 Active cholecalciferol (VITAMIN D-3) 25 mcg (1,000 [...] the medical therapy that was instituted by [facility] heart failure clinic has not been reinstated. [...] Type Department Care Team Description 07/24/2024 Telephone [facility] Cardiology [facility] [address] [place] [address] Cyndy Jama NP No Call [...] PLUG/STOP-CUFFLESS TRACH TUBE OTHER SURGICAL HISTORY PROCEDURE: TX EGD PERCUTANEOUS PLACEMENT GASTROSTOMY TUBE CATARACT EXTRACTION PROCEDURE: HISTORICAL CATARACT REMOVAL; COMMENT: bilateral OTHER SURGICAL HISTORY 2015 PROCEDURE: ---- OTHER ----; COMMENT: bronchoscopy Medical History Medical History Date Comments HIV (human immunodeficiency virus infection) ([facility]/HCC) 10/25/2012 DX:HIV (human immunodeficien cy virus infection) (HCC) COPD (chronic obstructive pu lmonary disease) ([facility]/HCC) 10/25/2012 DX:COPD (chronic obstructive pulmonary disease) (HCC) Chronic hepatitis C ([facility]/HCC) 10/25/2012 DX :Chronic hepatitis C (HCC) Historical Medical DX 11/08/2012 DX:Family history of sickle cell anemia Family history of colon cancer 11/08/2012 D X:Family history of colon cancer Thalassemia minor 12/09/2012 DX:Thalassemia minor History of cocaine abuse ([facility]/HCC) DX:History of cocaine abuse (HCC); COMMENT: u tox pos 01/18/14 at [facility] Polysubstance abuse ([facility]/HCC) DX :Polysubstance abuse (HCC); COMMENT: u tox pos 01/18/14 at [facility] Pulmonary nodules 06/16/2018 DX:Pulmonary n odules [...] Date Smoking Tobacco: Every Day Cigarettes 0.3 50.2 Started: 08/09/1974 Smokeless Tobacco: Never Alcohol Use Standard Drinks/Week Comments No 0 (1 standard drink = 0.6 oz pur e alcohol) Sex and Gender Information Value Date Recorded Sex Assigned at Not on file Legal Sex Male 4:00 PM EST Gender Identity Not on file Sexual Orientation [...] BMP Blood Test 02/12/2025 02/13/2024 Pneumococcal Vaccine: 50+ Years (3 of 3 - PPSV23, PCV20 or PCV21) 09/10/2026 09/10/2021, 12/08/2012 Pneumococcal Vaccine: Pediatrics (0 to 5 Years) and At-Risk Patients (6 to 64 Years) (3 of 3 - PPSV23, PCV20 or PCV21) 09/10/2026 09/10/2021, 12/08/2012 Cholesterol Screening (Lipid Panel) [...] on patient's age to complete this topic Meningococcal B Vacine Aged Out No lo nger eligible based on patient's age to complete [...] Results * Annual BMP Blood Test (02/13/2024) Pathologist [facility] Annual BMP Blood Test Abstracted [facility] Provider HEALTH MAINTENANCE Final Result * Lipid panel (09/14/2023) [facility] LDL/HDL Ratio 2 0 - 4 Triglycerides 66 0 - 150 mg/dL Cholesterol 113 0 - 200 mg/dL HDL 57 >=40 mg/dL LDL Cholesterol 43 0 - 100 mg/dL Blood Venous blood specimen / Unknown Result [facility] Historical Provider LAB BLOOD ORDERABLES Nicky l Result * Depression Screening (12/21/2022) Pathologist [facility] Depression Screening Abstracted Result [facility] Provider HEALTH MAINTENANCE Final Result * Hepatitis C Screening (08/15/2021) Hepatitis C Screening Abstracted Historical Provider HEALTH MAINTENANCE Final Result * Colonoscopy (07/18/2014) Colonoscopy No interpretation with ,abstracted Anatomical Region Laterality Modality Other Historical Provider HEALTH MAINTENANCE Final Result from Last 3 Months or Most Recently Relevant to Health Maintenance Insurance [phone] HEALTH PLAN Advance Directives Documents on File Type Date Recorded Patient Tread Cutter Expl anation Health Care Decision (hx) 11/13/2015 [...] (hx) 11/03/2015 AD BAUGH DIRECTIVE Care Teams Digital Media Associate Relationship Specialty Start Date End Date Loreta Bhagat MD [address] [place] [address] PCP - General Internal Medicine 09/01/21
--- OUTSIDE RECORDS SUMMARY | 2024-10-04 10:36 | XMS_ITS | Patient Health Record ---
Author Organization [facility] Address [address] [place], [place] [id number] Care Team Providers Care Press Officer Name Role Phone No, PCP Primary Care Provider Humberto Lyon Unavailable [phone] Reason For Referral No Information Plan Of Treatment No Information Insurance Providers Payer Name Payer Address Payer Phone Subscriber Number Group Number Insured Name Patient Relationship to Insured Coverage Start Date Coverage End Date [employer] Plan [address] [address] [place] [address] [id number] Earl Rincon Self - patient is the insured 2
--- OUTSIDE RECORDS SUMMARY | 2024-10-04 10:36 | XMS_ITS | Encounter Summary ---
Author Organization [employer] [facility] Address [address] [place] [address] Care Team Providers Care Paper Control Clerk Name Role Phone Maryjo Reina DO Primary Care Pro vider Unavailable Marisol Valencia PA-C Primary Care Provider U Stephan Muñoz MD Unavailable Unavailable Loreta Bhagat MD Primary Care Provider [phone] Cyndy Jama NP Unavailable [phone] Jose Delgado MD Unavailable [phone] Encounter Details Date Type Department Care Team Description 10/02/2013 Wrapper Cashier Report Medical Records [address] [place] [id number] [place] [address] Social History Tobacco Use Types Packs/Day Years [...] on filedocumented in this encounter Care Teams Paper Control Clerk Relationship Specialty Start Date End Date [place] Colasacco, Maryjo, DO PCP - General Internal Medicine 07/05/13 07/23/21 Marisol Valencia PA-C PCP - General Internal Medicine 07/24/21 08/31/21 Loreta Bhagat MD [address] [place] [address] PCP - General Internal Medicine 09/01/21 Stephan Mejia MD Starter Cup Powder Mixer Cardiovascular Disease 07/30/21 4 Cyndy Jama NP [address] [place] [address] Nurse Practitioner Cardiology 07/23/22 Jose Delgado MD [address] [place] [address] [place] [address] Starter Cup Powder Mixer Cardiovascular Disease 04/24/24 documented as of this encounter
--- OUTSIDE RECORDS SUMMARY | 2024-10-04 10:36 | XMS_ITS | Encounter Summary ---
Author Organization [facility] Address [address] [place] [address] Care Team Providers Care Indoor Landscape Architect Name Role Phone Siddharth Gardiner MD Primary Care Provider Unav ailable Maryjo Reina DO Primary Care Pro vider Unavailable Marisol Valencia PA-C Primary Care Provider U Stephan Muñoz MD Unavailable Unavailable Loreta Bhagat MD Primary Care Provider [phone] Cyndy Jama NP Unavailable [phone] Jose Delgado MD Unavailable [phone] Encounter Details Date Type Department Care Team Description 10/27/2012 Orders Only Adult Medicine [address] [address] Siddharth Gardiner MD Social History Tobacco Use [...] on filedocumented in this encounter Care Teams Indoor Landscape Architect Relationship Specialty Start Date End Date Siddharth Gardiner MD PCP - General Internal Medicine 10/14/12 3 Maryjo Reina DO PCP - General Internal Medicine 07/05/13 07/23/21 Marisol Valencia PA-C PCP - General Internal Medicine 07/24/21 08/31/21 Loreta Bhagat MD [address] [place] [address] PCP - General Internal Medicine 09/01/21 Stephan Mejia MD Briquette Operator Cardiovascular Disease 07/30/21 4 Cyndy Jama NP [address] [place] [address] Nurse Practitioner Cardiology 07/23/22 Jose Delgado MD [address] [place] [address] [address] [place] [address] Briquette Operator Cardiovascular Disease 04/24/24 documented as of this encounter
--- OUTSIDE RECORDS SUMMARY | 2024-10-04 10:36 | XMS_ITS | Encounter Summary ---
Author Organization [facility] Address [address] [place] [address] Care Team Providers Care Concession Attendant Name Role Phone Siddharth Gardiner MD Primary Care Provider Unav ailable Josiah Reinaabelexie KIM Primary Care Pro vider Unavailable Marisol Valencia PA-C Primary Care Provider U Stephan Muñoz MD Unavailable Unavailable Loreta Bhagat MD Primary Care Provider [phone] Cyndy Jama NP Unavailable [phone] Jose Delgado MD Unavailable [phone] Reason for Visit * Reason Onset Date Comments Special Procedure 06/06/2013 colonoscopy Encounter Details Date Type Department Care Team Description 06/06/2013 Telephone Gastroenterology - [address] [id number] Siddharth Gardiner MD Special Procedure (colonoscopy) Social [...] 06/13/2013 11:38 AM EST Called pt- states [facility]---script for Colyte called to them * Telephone Encounter - Stephani Dinero R.N. - 06/12/2013 8:39 AM EST Spoke with patient- states his lab studies are stable and he is not taking any medication for HIV at present- has followed with Dr Villar in Infectious disease -colonoscopy on 06/22 states needs script recalled to pharmacy- [facility] in [place] also no document of visits in [facility] or [facility]---no [facility] found in [place]---call to pt -vm message left to call to confirm pharmacy and find name and contact information for infectious disease Called [facility] Infectious disease- pt last seen 12/08/12 they [...] on filedocumented in this encounter Care Teams Concession Attendant Relationship Specialty Start Date End Date Siddharth Gardiner MD PCP - General Internal Medicine 10/14/12 3 Maryjo Reina DO PCP - General Internal Medicine 07/05/13 07/23/21 Marisol Valencia PA-C PCP - General Internal Medicine 07/24/21 08/31/21 Loreta Bhagat MD [address] [place] [address] PCP - General Internal Medicine 09/01/21 Stephan Mejia MD Sheet Taker Cardiovascular Disease 07/30/21 4 Cyndy Jama NP [address] [place] [address] Nurse Practitioner Cardiology 07/23/22 Jose Delgado MD [address] [place] [address] [place] [address] Sheet Taker Cardiovascular Disease 04/24/24 documented as of this encounter
--- OUTSIDE RECORDS SUMMARY | 2024-10-04 10:36 | XMS_ITS | Encounter Summary ---
Author Organization [facility] Address [address] [place] [address] Care Team Providers Care Switch Coupler Name Role Phone Stephan Mejia MD Unavailable Unavailable Loreta Bhagat MD Primary Care Provider [phone] Cyndy Jama NP Unavailable [phone] Jose Delgado MD Unavailable [phone] Encounter Details Date Type Department Care Team Description 04/24/2022 Mortar Maker Report Medical Records [address] [place] [address] Jorge Brooks MD Social History Tobacco Use [...] on filedocumented in this encounter Care Teams Switch Coupler Relationship Specialty Start Date End Date Loreta Bhagat MD [address] [place] [address] PCP - General Internal Medicine 09/01/21 Stephan Mejia MD Environmental Services Supervisor Cardiovascular Disease 07/30/21 4 Cyndy Jama NP [address] [place] [address] Nurse Practitioner Cardiology 07/23/22 Jose Delgado MD [address] [place] [address] [address] [place] [address] Environmental Services Supervisor Cardiovascular Disease 04/24/24 documented as of this encounter
--- OUTSIDE RECORDS SUMMARY | 2024-10-04 10:36 | XMS_ITS | Encounter Summary ---
Author Organization [facility] Address [address] [place] [address] Phone Care Team Providers Care Medical Instrument Technician Name Role Phone Loreta Bhagat MD Primary Care Provider [phone] Encounter Details Date Type Department Care Team (Late st Contact Info) Description 07/07/2024 Documentation Only [facility] [address] [place] [id number] Ruy Mack DO [address] [facility] [address] [place] [phone] Social History Tobacco Use Types Packs/Day Years [...] Visit [facility] [address] [place] [address] Ruy Mack DO [address] [facility] [address] [facility] [place] [address] documented as of this encounter Visit Diagnoses Not on filedocumented in this encounter Care Teams Medical Instrument Technician Relationship Specialty Start Date End Date Loreta Bhagat MD PCP - General Internal Medicine 10/22/23 documented as of this encounter
--- OUTSIDE RECORDS SUMMARY | 2024-10-04 10:36 | XMS_ITS | Encounter Summary ---
Author Organization [facility] Address [address] [place] [address] Care Team Providers Care Mine Motor Operator Name Role Phone Maryjo Reina DO Primary Care Pro vider Unavailable Marisol Valencia PA-C Primary Care Provider U Stepahn Muñoz MD Unavailable Unavailable Loreta Bhagat MD Primary Care Provider [phone] Cyndy Jama NP Unavailable Jose Delgado MD Unavailable [phone] Encounter Details Date Type Department Care Team Description 09/07/2013 Observer Gravity Prospecting Report Medical Records [address] [place] [address] Joan Reilly MD Social History Tobacco Use [...] on filedocumented in this encounter Care Teams Mine Motor Operator Relationship Specialty Start Date End Date Maryjo Reina DO PCP - General Internal Medicine 11/27/13 12/15/21 Marisol Vlaencia PA-C PCP - General Internal Medicine 07/24/21 08/31/21 Loreta Bhagat MD [address] [place] [address] PCP - General Internal Medicine 09/01/21 Stephan Mejia MD Pear Picker Cardiovascular Disease 07/30/21 4 Cyndy Jama NP [address] [place] [address] Nurse Practitioner Cardiology 07/23/22 Jose Delgado MD [address] [place] [address] [address] [place] [address] Pear Picker Cardiovascular Disease 04/24/24 documented as of this encounter
--- OUTSIDE RECORDS SUMMARY | 2024-10-04 10:36 | XMS_ITS | Encounter Summary ---
Author Organization [facility] Address [address] [place] [address] Phone Care Team Providers Care Ink Maker Name Role Phone Loreta Bhagat MD Primary Care Provider [phone] Encounter Details Date Type Department Care Team (Late st Contact Info) Description 04/18/2024 Documentation Only [facility] [address] [place] [address] [place], [place] [address] [place] [address] Social History Tobacco Use Types Packs/Day Years [...] Visit [facility] [address] [place] [address] Ruy Mack DO [address] [facility] [address] [place] [address] documented as of this encounter Visit Diagnoses Not on filedocumented in this encounter Care Teams Ink Maker Relationship Specialty Start Date End Date Loreta Bhagat MD PCP - General Internal Medicine 10/22/23 documented as of this encounter
--- OUTSIDE RECORDS SUMMARY | 2024-10-04 10:36 | XMS_ITS | Encounter Summary ---
Author Organization [facility] Address [address] [place] [address] Care Team Providers Care Administrative Hearing Officer Name Role Phone Stephan Mejia MD Unavailable Unavailable Loreta Bhagat MD Primary Care Provider [phone] Cyndy Jama NP Unavailable [phone] Jose Delgado MD Unavailable [phone] Reason for Visit * Reason Onset Date Comments Medication 08/17/2022 Encounter Details Date Type Department Care Team Description 08/17/2022 Refill Gastroenterology - [place] [address] [facility] [address] [place] [address] Eliazar Ochoa MD [address] [facility] [address] [address] [place] [address] Medication Social History Tobacco Use Types Packs/Day [...] Recorded In the last 10 days, have catrachita enriquez been in contact with someone who was confirmed or suspected to have Coronavirus/COVID-19? No / Unsure 07/24/2022 2:46 PM EST documented as of this encounter Plan of Treatment Not on file documented as of this encounter Visit Diagnoses Not on filedocumented in this encounter Care Teams Administrative Hearing Officer Relationship Specialty Start Date End Date Loreta Bhagat MD [address] [place] [address] PCP - General Internal Medicine 09/01/21 Stephan Mejia MD Facility Specialist Cardiovascular Disease 07/30/21 4 Cyndy Jama NP [address] [place] [address] Nurse Practitioner Cardiology 07/23/22 Jose Delgado MD [address] [place] [address] [place] [address] Facility Specialist Cardiovascular Disease 04/24/24 documented as of this encounter
--- OUTSIDE RECORDS SUMMARY | 2024-10-04 10:36 | XMS_ITS | Encounter Summary ---
Author Organization [facility] Address [address] [place] [address] Care Team Providers Care As400 Consultant Name Role Phone Marisol Valencia PA-C Primary Care Provider U Stephan Muñoz MD Unavailable Unavailable Loreta Bhagat MD Primary Care Provider [phone] Cyndy Jama NP Unavailable [phone] Jose Delgado MD Unavailable [phone] Encounter Details Date Type Department Care Team Description 07/30/[address] [facility] [address] [place] [address] Marisol Valencia PA-C Social History [...] on filedocumented in this encounter Care Teams As400 Consultant Relationship Specialty Start Date End Date Marisol Valencia PA-C PCP - General Internal Medicine 07/24/21 08/31/21 Loreta Bhagat MD [address] [place] [address] PCP - General Internal Medicine 09/01/21 Stephan Mejia MD Distribution Systems Serviceperson Cardiovascular Disease 07/30/21 4 Cyndy Jama NP [address] [place] [address] Nurse Practitioner Cardiology 07/23/22 Jose Delgado MD [address] [place] [address] [place] [address] Distribution Systems Serviceperson Cardiovascular Disease 04/24/24 documented as of this encounter
--- OUTSIDE RECORDS SUMMARY | 2024-10-04 10:36 | XMS_ITS | Encounter Summary ---
Author Organization [facility] Address [address] [place] [address] Care Team Providers Care Guest Services Ambassador Name Role Phone Maryjo Reina DO Primary Care Pro vider Unavailable Marisol Valencia PA-C Primary Care Provider U Stephan Muñoz MD Unavailable Unavailable Loreta Bhagat MD Primary Care Provider [phone] Cyndy Jama NP Unavailable [phone] Jose Delgado MD Unavailable [phone] Encounter Details Date Type Department Care Team Description 10/31/2015 Telephone Adult [address] [address] Maryjo Reina DO Social History Tobacco Use [...] scan for follow-up CT from March. Per radio/tv technician- pt with Severe right lateral chest wall pain on arrival and grossly abnormal repeat CXR-- on eval pt with c/o severe right anteriolateral chest wall pain - pt relates + dyspnea- vs 100.4 orally, 130-26-119/76-86% RA---o2 applied to patient at 2lpm via nc-- 2:40-- Dr. Kirkpatrick down to eval pt- 02 increased to 3lpm due to spo2<92% 2:44 VS--110/35-559-50-91-94% 3lpm-- pt continues to relate no improvement in dyspnea and chest wall pain that he rates 05/18 documented in this encounter Plan of Treatment Not on file documented as of this encounter Visit Diagnoses Not on filedocumented in this encounter Care Teams Guest Services Ambassador Relationship Specialty Start Date End Date Maryjo Reina DO PCP - General Internal Medicine 07/05/13 07/23/21 Marisol Valencia PA-C PCP - General Internal Medicine 07/24/21 08/31/21 Loreta Bhagat MD [address] [place] [address] PCP - General Internal Medicine 09/01/21 Stephan Mejia MD Sheet Metal Insulator Cardiovascular Disease 07/30/21 4 Cyndy Jama NP [address] [place] [address] Nurse Practitioner Cardiology 07/23/22 Jose Delgado MD [address] [place] [address] [address] [place] [address] Sheet Metal Insulator Cardiovascular Disease 04/24/24 documented as of this encounter
--- OUTSIDE RECORDS SUMMARY | 2024-10-04 10:36 | XMS_ITS | Encounter Summary ---
Author Organization [facility] Address [address] [place] [address] Care Team Providers Care Lead Developer Name Role Phone Marisol Valencia PA-C Primary Care Provider U Stephan Muñoz MD Unavailable Unavailable Loreta Castro MD Primary Care Provider [phone] Cyndy Jama NP Unavailable [phone] Jose Delgado MD Unavailable [phone] Reason for Visit * Reason Onset Date Comments Research Lab Assistant Feedback 07/28/2021 Referrals Encounter Details Date Type Department Care Team Description 07/28/2021 Telephone Adult Medicine [address] [address] Marisol Valencia PA-C Research Lab Assistant Feedback (Referrals) Social History Tobacco Use Types [...] to reach pt , will send to RUBBER ROLLER GRINDER OPERATOR * Telephone Encounter - Bria Mai - 07/28/2021 2:51 PM EST Shilpi, patient's counselor states that patient is without a phone at the moment, so when the referral are put into place please use the phone [phone] as a contact number. documented in this encounter Plan of Treatment Not on file documented as of this encounter Visit Diagnoses Not on filedocumented in this encounter Care Teams Lead Developer Relationship Specialty Start Date End Date Marisol Valencia PA-C PCP - General Internal Medicine 07/24/21 08/31/21 Loreta Castro MD [address] [place] [address] PCP - General Internal Medicine 09/01/21 Stephan Mejia MD Vocational Guidance Counselor Cardiovascular Disease 07/30/21 4 Cyndy Jama NP [address] [place] [address] Nurse Practitioner Cardiology 07/23/22 Jose Delgado MD [address] [place] [address] [address] [place] [address] Vocational Guidance Counselor Cardiovascular Disease 04/24/24 documented as of this encounter
--- OUTSIDE RECORDS SUMMARY | 2024-10-04 10:36 | XMS_ITS | Encounter Summary ---
Author Organization [facility] Address [address] [place] [address] Care Team Providers Care Awning Maker And Installer Name Role Phone Stephan Mejia MD Unavailable Unavailable Loreta Bhagat MD Primary Care Provider [phone] Cyndy Jama NP Unavailable [phone] Jose Delgado MD Unavailable [phone] Reason for Visit * Reason Onset Date Comments Medication 10/24/2021 Encounter Details Date Type Department Care Team Description 10/24/2021 Refill Gastroenterology - [place] [address] [address] Jose Hammond PA-C 175 [facility] [address] [place] [address] Medication Social History Tobacco Use Types Packs/Day [...] filedocumented in this encounter Care Teams Awning Maker And Installer Relationship Specialty Start Date End Date Loreta Bhagat MD [address] [place] [address] PCP - General Internal Medicine 09/01/21 Stephan Mejia MD Paraffin Plant Operator Cardiovascular Disease 07/30/21 4 Cyndy Jama NP [address] [place] [address] Nurse Practitioner Cardiology 07/23/22 Jose Delgado MD [address] [place] [address] [place] [address] Paraffin Plant Operator Cardiovascular Disease 04/24/24 documented as of this encounter
--- OUTSIDE RECORDS SUMMARY | 2024-10-04 10:36 | XMS_ITS | Encounter Summary ---
Author Organization [employer] [facility] Address [address] [place] [address] Care Team Providers Care Rides Supervisor Name Role Phone Maryjo Reina DO Primary Care Pro vider Unavailable Marisol Valencia PA-C Primary Care Provider Stephan Carson MD Unavailable Unavailable Loreta Bhagat MD Primary Care Provider [phone] Cyndy Jama NP Unavailable [phone] Jose Delgado MD Unavailable [phone] Reason for Visit * Reason Onset Date Comments Prior Authorization 07/05/2013 Encounter Details Date Type Department Care Team Description 07/05/2013 Refill Adult Medicine [address] [address] Maryjo Reina DO Prior Authorization Social History [...] problem UNKNOWN Patients current medical insurance Payor: [employer] Plan: Taggled $0 [place] [id number] Product Type: MEDICAID RISK What Prescription Plan does the patient have? Prescription Plan Tel # from back of prescription ID card [id number] What is the patients Prescription Plan ID #? [id number] What Pharm[facility] the [facility] Payor: [facility] Plan: [employer] PPT Reasearch[employer] $0 [place] [id number] Product Type: MEDICAID RISK documented in this encounter Plan of Treatment Not on file documented as of this encounter Visit Diagnoses Not on filedocumented in this encounter Care Teams Rides Supervisor Relationship Specialty Start Date End Date Maryjo Reina DO PCP - General Internal Medicine 07/05/13 07/23/21 Marisol Valencia PA-C PCP - General Internal Medicine 07/24/21 08/31/21 Loreta Bhagat MD [address] [place] [address] PCP - General Internal Medicine 09/01/21 Stephan Mejia MD Stationary Boiler Fireman Cardiovascular Disease 07/30/21 4 Cyndy Jama NP [address] [place] [address] Nurse Practitioner Cardiology 07/23/22 Jose Delgado MD [address] [place] [address] [address] [place] [address] Stationary Boiler Fireman Cardiovascular Disease 04/24/24 documented as of this encounter
--- OUTSIDE RECORDS SUMMARY | 2024-10-04 10:36 | XMS_ITS | Clinical Summary ---
Author Organization [facility], Address [address] [place] [address] [place] [address] Phone Care Team Providers Care Clinic Lpn Name Role Phone Loreta Bhagat MD Primary Care Provider [phone] Allergies No known active allergies Medications aspirin [...] day if needed Active epoetin kellen (EPOGEN,PROCRIT) 25339 UNIT/ML injectionIndicat ions:Anemia due to Renal Failure [...] Visit [facility], [address] [place] [address] Ruy Mack DO Chronic kidney disease, stage 4 (severe) (HCC) (Primary Dx); Chronic systolic heart failure (HCC); Other specified chronic obstructive pulmonary disease (HCC) 07/07/2024 Documentation Only [facility] [address] [place] [address] Ruy Mack DO 07/07/2024 Documentation Only [facility] [address] [place] [address] Ruy Mack DO from Last [...] Visit [facility] [address] [place] [address] Ruy Mack DO [address] [place] [address] [place] [id number] Health Maintenance Due Date Last Done Comments [...] PPSV23 or PCV20) 09/10/2026 09/10/2021, 12/08/2012 Insurance [facility] MEDICAID [facility] Care Teams Clinic Lpn Relationship Specialty Start Date End Date Loreta Bhagat MD PCP - General Internal Medicine 10/22/23
--- OUTSIDE RECORDS SUMMARY | 2024-10-04 10:36 | XMS_ITS | Encounter Summary ---
Author Organization [employer] [facility] Address [address] [place] [address] Care Team Providers Care Terminal Worker Name Role Phone Stephan Mejia MD Unavailable Unavailable Loreta Bhagat MD Primary Care Provider [phone] Cyndy Jama NP Unavailable [phone] Jose Delgado MD Unavailable [phone] Encounter Details Date Type Department Care Team Description 03/28/2024 Hospital Medical Records [address] [place] [address] [facility] Social History Tobacco Use Types Packs/Day Years [...] on filedocumented in this encounter Care Teams Terminal Worker Relationship Specialty Start Date End Date Loreta Bhagat MD [address] [place] [address] [phone] PCP - General Internal Medicine 09/01/21 Stephan Mejia MD Crab Meat Processor Cardiovascular Disease 07/30/21 4 Cyndy Jama NP [address] [place] [address] Nurse Practitioner Cardiology 07/23/22 Jose Delgado MD [address] [place] [address] [place] [address] Crab Meat Processor Cardiovascular Disease 04/24/24 documented as of this encounter
--- OUTSIDE RECORDS SUMMARY | 2024-10-04 10:36 | XMS_ITS | Encounter Summary ---
Author Organization [facility] Address [address] [place] [address] Care Team Providers Care Maintenance Inspector Name Role Phone Stephan Mejia MD Unavailable Unavailable Loreta Bhagat MD Primary Care Provider [phone] Cyndy Jama NP Unavailable [phone] Jose Delgado MD Unavailable [phone] Reason for Visit * Reason Onset Date Comments Faxed Refill 05/21/2023 Encounter Details Date Type Department Care Team Description 05/21/2023 Telephone Adult Medicine [address] [phone] Loreta Bhagat MD [address] [place] [address] [phone] Faxed Refill Social History Tobacco Use Types Packs/Day Years [...] Telephone Encounter - Diane Zapata M.A. - 05/21/2023 10:06 AM EDT Lab Results Component Value Date NA 139 04/24/2022 K 4.5 04/24/2022 CO2 31 04/24/2022 CL 104 04/24/2022 BUN 22 04/24/2022 CREAT 1.69 04/24/2022 GLU 95 04/24/2022 CA 9.5 04/24/2022 GFR 41 04/24/2022 Pending appt with pcp * Telephone Encounter - Bria Odette Mai - 05/21/2023 9:17 AM EDT Patient would like script to be: E-PRESCRIBED/FAXED TO PHARMACY WHEN WAS THE PATIENT'S LAST APPOINTMENT IN ADULT MEDICINE? 04/30/23 WHEN WAS THE LAST TIME THE PATIENT SAW THEIR PCP? 03/29/23 Does patient have an upcoming appointment? Yes 06/03/23 (THE MEDICATION REQUESTED IS ON THE MED [...] N/A Patients current insurance carrier is: Payor: [employer] / Plan: [facility] [employer] / Product Type: MEDICAID RISK documented in this encounter Plan of Treatment Not on file documented as of this encounter Visit Diagnoses Diagnosis Chronic obstructive pulmonary disease, unspecified COPD type (HCC) documented in this encounter Care Teams Maintenance Inspector Relationship Specialty Start Date End Date Loreta Bhagat MD [address] [place] [address] PCP - General Internal Medicine 09/01/21 Stephan Mejia MD Plant Mechanic Cardiovascular Disease 07/30/21 4 Cyndy Jama NP [address] [place] [address] Nurse Practitioner Cardiology 07/23/22 Jose Delgado MD [address] [place] [address] [place] [address] Plant Mechanic Cardiovascular Disease 04/24/24 documented as of this encounter
--- OUTSIDE RECORDS SUMMARY | 2024-10-04 10:36 | XMS_ITS | Encounter Summary ---
Author Organization [employer] [facility] Address [address] [place] [address] Care Team Providers Care Lapping Machine Tender Name Role Phone Maryjo Reina DO Primary Care Pro vider Unavailable Marisol Valencia PA-C Primary Care Provider U Stephan Muñoz MD Unavailable Unavailable Loreta Bhagat MD Primary Care Provider [phone] Cyndy Jama NP Unavailable [phone] Jose Delgado MD Unavailable [phone] Encounter Details Date Type Department Care Team Description 12/13/2014 Tool Distributor Report Medical Records [address] [place] [address] Alexx Guy MD Social History Tobacco Use Types Packs/Day [...] on filedocumented in this encounter Care Teams Lapping Machine Tender Relationship Specialty Start Date End Date Maryjo Reina DO PCP - General Internal Medicine 11/27/13 12/15/21 Marisol Valencia PA-C PCP - General Internal Medicine 07/24/21 08/31/21 Loreta Bhagat MD [address] [place] [address] PCP - General Internal Medicine 09/01/21 Stephan Mejia MD Small Equipment Operator Cardiovascular Disease 07/30/21 4 Cyndy Jama NP [address] [place] [address] Nurse Practitioner Cardiology 07/23/22 Jose Delgado MD [address] [place] [address] [address] [place] [address] Small Equipment Operator Cardiovascular Disease 04/24/24 documented as of this encounter
--- OUTSIDE RECORDS SUMMARY | 2024-10-04 10:36 | XMS_ITS | Encounter Summary ---
Author Organization [employer] [facility] Address [address] [place] [address] Care Team Providers Care Motion Study Engineer Name Role Phone Maryjo Reina DO Primary Care Pro vider Unavailable Marisol Valencia PA-C Primary Care Provider U Stephan Muñoz MD Unavailable Unavailable Loreta Bhagat MD Primary Care Provider [phone] Cyndy Jama NP Unavailable [phone] Jose Delgado MD Unavailable [phone] Encounter Details Date Type Department Care Team Description 11/12/2015 Hospital Medical Records [address] [place] [address] Baron Burns MD Social History Tobacco Use [...] on filedocumented in this encounter Care Teams Motion Study Engineer Relationship Specialty Start Date End Date Maryjo Reina DO PCP - General Internal Medicine 07/05/13 07/23/21 Marisol Valencia PA-C PCP - General Internal Medicine 07/24/21 08/31/21 Loreta Bhagat MD [address] [place] [address] PCP - General Internal Medicine 09/01/21 Stephan Mejia MD Aircraft Engine Assembler Cardiovascular Disease 07/30/21 4 Cyndy Jama NP [address] [place] [address] Nurse Practitioner Cardiology 07/23/22 Jose Delgado MD [address] [place] [address] [address] [place] [address] Aircraft Engine Assembler Cardiovascular Disease 04/24/24 documented as of this encounter
== END 2024-10-04 09:59 | disposition home or self-care (01) ==
PROVIDERS: PCP Internal Medicine; Visit Provider Nurse Practitioner Psychiatric/Mental Health
DX: F11.90 Opioid use, unspecified, uncomplicated (principal)
CPT/HCPCS: 98012

== ENCOUNTER 2024-11-29 13:48 | Outpatient (AMB) | payer OTHER, SELFPAY ==
--- NOTE | 2024-11-29 13:51 | A.OFFVIS_ITS ---
Vital Signs 11/29/24 15:10 Height 5 ft 8 in Weight 147 lb BMI 22.3 Pulse 95 Pulse Source Pulse Oximeter Pulse Oximetry (%) 96 Oxygen Delivery Method Room Air Intake Visit Reasons: MAT Allergies No Known Allergies Allergy (Verified 11/29/24 15:11) HPI HPI MAT: Details: He has been doing well on 07/11 and wishes to stay on same dose. He has HIV and is on Tivicay and Truvada through [facility] at [address] He has screen positive buprenorphine and marijuana. [facility] Medical History (Updated 11/29/24 @ 15:42 by Maria R Duran MD) HIV (human immunodeficiency virus infection) Anemia CKD (chronic kidney disease) Acute hypoxic respiratory failure Respiratory failure Tachycardia Myocardial injury Pneumonia TERRY (obstructive sleep apnea) Pulmonary nodules Hepatitis C HIV disease COPD (chronic obstructive pulmonary disease) Social History Household Members: Other Housing: Apartment Do you presently have visiting nurse or other home services: No Alcohol intake: former Comment: Sitter at bedside Patient Tobacco Use Status: Tobacco use Unknown Tobacco use type: Cigarette Cigarette Packs Per Day: 1 Cigarettes Per Day: 4 Years Smoked: 30 Years Substance Use Type: Marijuana service: No Review of Systems Const All systems reviewed & are unremarkable except as noted in HPI and below Physical Exam Vital Signs: Last Vital Signs Pulse 95 11/29/24 15:10 Pulse Ox 96 11/29/24 15:10 Oxygen Delivery Method Room Air 11/29/24 15:10 BMI result Body Mass Index 22.3 Const General: cooperative Assessment & Plan Assessment & Plan (1) Opioid use disorder: Comment: He is doing well on current dose He feels doesnt need counseling He has no depression Code(s): F11.90 - Opioid use, unspecified, uncomplicated Category: Medical Plan: Continue Suboxone 12/3 daily, one month and one refill. Virtual visit in two months. Medications: New buprenorphine-naloxone 12-3 mg (Suboxone) 1 film sublingual Q24H 30 days 30 ea 1RF Coding Level of Care Code Est Pt Level 3 (73862) Diagnoses Opioid use disorder F11.90
[2024-11-29 15:10] VITALS: PULSE 95; O2SAT 96; BMI 22.3
--- OUTSIDE RECORDS SUMMARY | 2024-11-29 16:31 | XMS_ITS | Encounter Summary ---
Author Organization [facility] Address [address] [place] [address] Care Team Providers Care Food Analyst Name Role Phone Loreta Bhagat MD Primary Care Provider [phone] Reason for Referral * Consultation (Routine) - Closed Specialty Diagnoses / Procedures Referred By Contac t Referred To Contact Infectious Diseases Diagnoses HIV infection, unspecified symptom status (CMS/HCC V24, CMS/HCC V28) Loreta Bhagat MD [address] [place] [address] Phone: tel: fax: [facility] Infectious Disease [facility] [address] [place] [address] Phone: tel: fax: Referral ID Status Reason Start Date Expiration Date V isits Requested Visits Authorized [id number] Closed Specialty Services Required 10/26/2024 10/26/2025 1 1 Reason for Visit * Reason Onset Date Comments Referral 10/24/2024 Dr Joan jenkins - Infectious Disease Encounter Details Date Type Department Care Team (Late st Contact Info) Description 10/24/2024 Telephone Adult Medicine [address] [address] Loreta Bhagat MD [address] [place] [address] Referral (Dr Joan Reilly - Infectious Disease ) Social History Tobacco Use Types Packs/Day Years Used Date Smoking Tobacco: Every Day Cigarettes 0.3 50.3 Started: [birth year]09/1975 Smokeless Tobacco: Never Alcohol Use Standard Drinks/Week Comments No 0 (1 standard drink = 0.6 oz pur e alcohol) Sex and Gender Information Value Date Recorded Sex Assigned at Not on file Legal Sex Male 4:00 PM EST Gender Identity Not on file Sexual Orientation Not on file documented as of this encounter Progress Notes * Ning Haywood - 10/24/2024 9:02 AM EDT Referral Request: What insurance does the patient have today? Payor: [employer] / Plan: [employer] MEDICAID/ Product Type: *No Product type* / Referrals cannot be processed if the insurance is not accurate. If the insurance listed above in red is NO BILLING INFORMATION FOUND FOR THIS ENCOUTNER The patients correct insurance must be obtained and registered in [facility] or their referral can not be processed. Is this a retro request? no. If yes for what date of service do you need the retro referral? 10/25/24 Who is calling to request this referral? There office If the caller is not the patient, what is their name? Marie Ask the patient WHO referred them to this specialty: Patient saw Dr Bhagat at [facility] for the problemand was told if symptoms did not resolve or worsen they would refer them to this specialty FIRST and LAST NAME of SPECIALIST PATIENT is seeing: Dr Joan Reilly What specialty is this? Infectious Disease DIAGNOSIS Patient is being seen for (Not a body part or a procedure): Human immunodeficiency virus [HIV] disease Have you seen this SPECIALIST for this PROBLEM/DX before? If YES, when? 6mths ago Have you checked REVIEW or the APPT DESK to see if this referral has already been done or has visits left? yes Is this visit: Follow Up Address of Specialist: [address] [place] [address] Phone # of Specialist: [phone] Fax #: (if applicable): [phone] Does patient have an appointment scheduled?: yes Date of appointment- (including a retro-request): 10/25/2024 Is this appointment related to: Not MVA, worker compensation, or surgery related documented in this encounter Plan of Treatment Scheduled Referrals Name Type Priority Associated Diagnoses Order Schedule Ambulatory referral to Infectious Disease Outpatient Referral Routine HIV infection, unspecified symptom status ([facility] V24, CMS/[facility] V28) 1 Occurrences starting 10/26/2024 until 10/24/2025 documented as of this encounter Visit Diagnoses Diagnosis HIV infection, unspecified symptom status (CMS/HCC V24, CMS/HCC V28)- Primary documented in this encounter Care Teams Food Analyst Relationship Specialty Start Date End Date Loreta Bhagat MD [address] [place] [address] PCP - General Internal Medicine 09/01/21 documented as of this encounter
--- OUTSIDE RECORDS SUMMARY | 2024-11-29 16:31 | XMS_ITS | Continuity of Care Document ---
Author Organization [employer] [facility] Address 1 [facility] [address] [place] [address] Phone Care Team Providers Care Quenching Machine Operator Name Role Phone Pineda LINING MAKERRosemary Unavailable Unavailable Allergies, Adverse Reactions, Alerts Substance Reaction Status Criticality No Known Allergies Active No Inform ation Medications Medication Instructions Dosage Effective Dates (start - stop) Status Comments mirtazapine 7.5 mg tablet TOME 1 TABLETA POR VIA ORAL TODOS [place] AL ACOSTARSE - Active lamivudine 100 mg tablet take 1 tablet by oral route every day 100 MG - Active Tivicay 50 mg tablet take 1 tablet by or al route every day 50 MG - Active Suboxone 12 mg-[address] 1 film by sublingual route every day allow to dissolve slowly in mouth without chewing or swallowing 1.00 film - Active torsemide 5 mg tablet TOME 1 TABLETA POR VIA ORAL TODOS [place] - Active ALBUTEROL HFA (VENTOLIN) INH INHALE 2 PUFF BY INHALATION ROUTE EVERY 8 HR NEEDED - Active Oxygen 2lpm via nasal cannula PRN - Active budesonide-formotero l HFA 160 mcg-4.5 [...] Location Reason(s) For Visit Diagnoses Date Provider [facility], [address] [facility], [place], [place], [id number], [place] tel:[phone] Dev[place] No Information Nov-2 5 Pineda Riley. [address] [place], [id number] , [place]. tel:[phone] [facility], [address] [facility] [address], [place], [place], [id number], [place] tel:[phone] Devine No Information Nov-0 5 Pineda Riley. [address] [place], [id number] , [place]. tel:[phone] [facility], [address] [facility] [address], [place], [place], [id number], [place] tel:[phone] Dev[place] Chronic kidney disea se, stage 4 (severe) Apr-0 5 Pineda Riley. [address] [place], [id number] , [place]. tel:[phone] [facility], [address] [facility] [address], [place], [place], [id number], [place] tel:[phone] Devine Family history of malignant neoplasm of digestive organs Oct-3 5 Pineda Riley. [address] [place], [id number] , [place]. tel:[phone] [facility], [address] [facility] [address], [place], [place], [id number], [place] tel:[phone] Devine No Information Oct-2 5 Pineda Riley. [address] [place], [id number] , [place]. tel:[phone] [facility], [address] [facility] [address], [place], [place], [id number], [place] tel:[phone] Devine Encounter for rehabilitation evaluation Oct- 5 Marcy Reyes. [address] [place], [place], [address]. tel:[phone] [facility], [address], [place], [place], [id number], [place] tel:[phone] Devine No Information Oct-08 13- 5 Pineda Riley. [address] [place], [id number] , [place]. tel:[phone] [facility], [address], [place], [place], [id number], [place] tel:[phone] Dev[place] No Information 5 Pineda Riley. [address] [place] [place], [id number] , [place]. tel:[phone] [facility], [address] [facility] [address], [place], [place], [id number], [place] tel:[phone] Dev[place] No Information Oct-0 5 Pineda Riley. [address] [place], [id number] , [place]. tel:[phone] [facility], [address], [place], [place], [id number], [place] tel:[phone] Dev[place] Human immunodeficien cy virus [HIV] disease Oct-0 5 Pineda Riley. [address] [place], [id number] , [place]. tel:[phone] [facility], [address], [id number], [place] tel:[phone] Devine Acute Visit (chief complaint) Heart failure with reduced ejection fraction (HFrEF, <= 40%)HIV diseaseInsomnia, unspecified type 5 Pineda Riley. [address] [place], [id number] , [place]. tel:[phone] [facility], [address], [id number], [place] tel:[phone] Devine No Information 5 Pineda Riley. [address] [place], [id number] , [place]. tel:[phone] [facility], [address] [facility] [address], [place], [place], [id number], [place] tel:[phone] Devine Encounter for rehabilitation evaluation 5 Marcy Reyes. [address] [place], [place], [address]. tel:[phone] [facility], [facility] [address], [place], [place], [id number], [place] tel:[phone] Devine Acute Visit (chief complaint) COPD exacerbationMDD (major depressive disorder), recurrent episode, mildHeart failure with reduced ejection fraction (HFrEF, <= 40%) 5 Pineda Riley. [address] [place], [id number] , [place]. tel:[phone] [facility], [address] [facility] [address] [place] [address], [id number], [place] tel:[phone] Devine No Information 5 Pineda Riley. [address] [place], [id number] , [place]. tel:[phone] [facility], [address] [facility] [address], [place], [place], [id number], [place] tel:[phone] Devine Encounter for rehabilitation evaluation 5 Karol William. [address] [place], [id number] , [place]. tel:[phone] [facility], [address], [place], [place], [id number], [place] tel:[phone] Devine Difficulty in walkin g, not elsewhere classifiedEncounter for rehabilitation evaluation 5 Marcy Reyes. [address] [place], [address]. tel:[phone] [facility], [facility], [place], [place], [id number], [place] tel:[phone] Devine Post Enrollment Evaluation (chief complaint) Opioid dependence on agonist therapyEncephalomalacia with cerebral infarctionCerebrovascular diseaseHIV diseaseAcquired immunocompromised stateCentrilobular emphysemaChronic respiratory failure with hypoxiaStatus post tracheostomyCKD (chronic kidney disease) stage 4, GFR 15-29 ml/minCoronary artery disease involving koyuk coronary artery of koyuk heart without angina pectorisHeart failure with reduced ejection fraction (HFrEF, <= 40%)Hypertensive heart and kidney disease with HF and with CKD stage IVGastroesophageal reflux disease without esophagitisBenign prostatic hyperplasia with lower urinary tract symptoms, symptom details unspecifiedSecondary hyperparathyroidism of renal originAnemia, unspecified typeChronic hepatitis B 5 Pineda Tipton [address] [place], [id number] , [place]. tel:[phone] [facility], [address] [facility] [address] [place] [address], [id number], [place] tel:[phone] Devine Encounter for nutrit ional assessmentAt risk for inadequate oral intakeIncreased nutritional needs 5 Normile Ning. [address] [place], [id number] , [place]. tel:[phone] [facility], [facility] [address] [place] [address], [id number], [place] tel:[phone] Devine Opioid dependence, i n remissionTracheostomy status 5 Pineda Riley. [address] [place], [id number] , [place]. [phone] [facility], [facility] [address] [place] [address], [id number], [place] tel:[phone] Devine No Information 4 Pineda Riley. [address], [place], [id number] , [place]. tel:[phone] Family History Family Member Type Diagnosis Age At Onset No Information Immunizations Vaccine Date Status Comments Flu-IIV3,p-free administered Source: [facility] Payers Payer name Insurance type Covered green party ID Jose E navas(s) [facility] 16 [id number] Social History Type Description Quantity Date Captured Comments Sex Male Smoking Status No Information Chief Complaint And Reason For Visit No Information Plan Of Treatment Date Type Action Status Referral Ordered: Gastroenterology (related to Family history of colon cancer in father) ordered Referral Referred To: [facility] Ordered: Referrals: Pain Medicine. [facility]. Evaluate and treat Appointment date/timeframe: 08/30/2024 ordered Referral Ordered: Referrals: Pulmonary Rehab. Evaluate and treat Appointment date/timeframe: 08/15/2024 ordered History Of Present Illness Encounter Date Complaint History Of Prese nt Illness Acute Visit Earl is here f or follow up on the following problems:CHF: He was started last week on Torsemide 5mg since elevated BP and weight over short period of time noted. He was also symptomatic with increased LOERA.Today, looks like he lost about 4Ib and BP down to 108/64, which I believe is a bit too low for his frailty, however, he easilly swollen up in his legs and become symptomatic with RADHA, which he hardly can tolerate. today, he is denying any lightheadedness upon standing. Agreed to continue with the current regiment for the time being.Insomnia: He reported having trouble falling asleep and keeping asleep for years, but recently has gotten worst, feels exhusted during the day, try to nap but doesnt help as much. He was started on low dose Mirtazapine, he states it was very effective the fist couple of nights but subsided the following nights, nevertheless, still he think overall the medication has been helpful and would like to continue.PE:Lungs CTA bilaterally, diminised in lower lobes (which is his baseline due to fibrosis)Cv regular HR, 94, mild systolic murmurLE trace edema Feb-20-2025 Acute Visit Earl is here f or [...] regular HR, no murmurLE +2 pitting edema [id number] weight increase in the past month and halfBP 124/60 -2024 Post Enrollment Evaluation Gillianannel johanna is here for initial visit post enrollment.Patient is a 63-year-old gentleman with well-controlled HIV on HAART, h/o treated HCV with SVR, h/o polysubstance abuse on Seboxone, H/o of methadone use for 14 years), COPD/emphysema, CKD, CAD (prior admit with NSTEMS/ischemic cardiomyopathy due to drug use (under different MRN), HFrEF, prior admit for AMBER on CKD and 2 recent admits om 2023 to [facility] with sepsis, MSSA bacteremia, AMBER on CKD, [...] failure. Has VNA for trach/wound care.Admit to [facility] from 11/27-12/22/2023 with sepsis, MSSA bacteremia and treated for, per notes, c.difficile colitis with fidaxomicin (NO colitis on scanned CT a/p from 12/01 & 12/11 so likely c.diff diarrhea NOT colitis.) and HIV regimen changed to Abacavir, dolutegravir & rilpivirine with AMBER on CKD.Readmit to [facility] from 12/30-01/09/2024 with anemia (Hgb 5.5) and [...] if had colonoscopy - sounds like at [facility] had EGD only (as both parents who are had colon cancer) - if not should be scheduled Instructions Date Instruction Additional Infor ciera Oct- He reported having t rouble falling asleep and keeping asleep for years, but recently has gotten worst, feels exhausted during the day, try to nap but doesnt help as much. He was started on low dose Mirtazapine, he states it was very effective the fist couple of nights but subsided the following nights, nevertheless, still he think overall the medication has been helpful and would like to continue. Related to Insomnia, unspecified type stable. Going to be seen by infectious disease in coming weeks Related to HIV disease Has lost about 4Ib a nd BP down to 108/64, which I believe is a bit too low for his frailty, however, he easily swollen up in his legs and become symptomatic with RADHA, which he hardly can tolerate. today, he is denying any lightheadedness upon standing. Agreed to continue with the current regiment for the time being. Related to Heart failure with reduced ejection fraction (HFrEF, <= 40%) With reduced ejectio n fraction s/t non-ischemic [...] ASA. Related to Coronary artery disease involving koyuk coronary artery of koyuk heart without angina pectoris With baseline eGFR [...]
--- OUTSIDE RECORDS SUMMARY | 2024-11-29 16:31 | XMS_ITS | Encounter Summary ---
Author Organization [facility], Address [address] [place] [address] Phone Care Team Providers Care Photographer Portrait Name Role Phone Nataliia Arroyo MD Primary Care Provider + [phone] Encounter Details Date Type Department Care Team (Late st Contact Info) Description 07/07/2024 Documentation Only [facility] [address] [place] [address] Ruy Mack DO [address] [facility] [place] [phone] Social History Tobacco Use Types Packs/Day Years Used Date Smoking Tobacco: Never Assessed Sex and Gender Information Value Date Recorded Sex Assigned at Not on file Legal Sex Male 8:22 AM EDT Gender Identity Not on file Sexual Orientation Not on file documented as of this encounter Plan of Treatment Upcoming Encounters Date Type Department Care Team (Late st Contact Info) Description 03/16/2025 2:30 PM EDT Office Visit [facility] [address] [facility] [address] [place] [phone] Ruy Mack DO [address] [facility] [address] [place] [address] documented as of this encounter Visit Diagnoses Not on filedocumented in this encounter Care Teams Photographer Portrait Relationship Specialty Start Date End Date Nataliia Arroyo MD [address] [facility] [address] [place] PCP - General Internal Medicine 11/08/24 documented as of this encounter
--- OUTSIDE RECORDS SUMMARY | 2024-11-29 16:31 | XMS_ITS | Encounter Summary ---
Author Organization [facility], Address [address] [place] [address] Phone Care Team Providers Care Medical Front Desk Coordinator Name Role Phone Nataliia Arroyo MD Primary Care Provider + [phone] Encounter Details Date Type Department Care Team (Late st Contact Info) Description 07/07/2024 Documentation Only [facility] [address] [place] [address] Ruy Mack DO [address] [facility] [place] [phone] Social History Tobacco Use Types Packs/Day Years [...] Visit [facility] [address] [place] [phone] Ruy Mack DO [address] [facility] [address] [place] [address] documented as of this encounter Visit Diagnoses Not on filedocumented in this encounter Care Teams Medical Front Desk Coordinator Relationship Specialty Start Date End Date Nataliia Arroyo MD [address] [facility] [address] [place] PCP - General Internal Medicine 11/08/24 documented as of this encounter
--- OUTSIDE RECORDS SUMMARY | 2024-11-29 16:31 | XMS_ITS | Encounter Summary ---
Author Organization [facility] Address [address] [place] [address] Phone Care Team Providers Care Dermatology Nurse Practitioner Name Role Phone Nataliia Arroyo MD Primary Care Provider + [phone] Encounter Details Date Type Department Care Team (Late st Contact Info) Description 04/18/2024 Documentation Only [facility] [address] [place] [address] Angel [place] [address] [place] [phone] Social History Tobacco Use Types Packs/Day Years [...] Visit [facility] [address] [facility] [place] [address] Ruy Mack DO [address] [facility] [address] [place] [address] documented as of this encounter Visit Diagnoses Not on filedocumented in this encounter Care Teams Dermatology Nurse Practitioner Relationship Specialty Start Date End Date Nataliia Arroyo MD [address] PCP - General Internal Medicine 11/08/24 documented as of this encounter
--- OUTSIDE RECORDS SUMMARY | 2024-11-29 16:31 | XMS_ITS | Clinical Summary ---
Author Organization [facility], Address [address] [place] [address] [place] [address] Phone Care Team Providers Care Tobacco Sample Puller Name Role Phone Nataliia Arroyo MD Primary Care Provider + [phone] Allergies No known active allergies Medications aspirin [...] day if needed Active epoetin kellen (EPOGEN,PROCRIT) 65153 UNIT/ML injectionIndicat ions:Anemia due to Renal Failure [...] Encounters Date Type Department Care Team Description 11/08/2024 10:45 AM EDT Office Visit [facility], [address] [place] [address] Ruy Mack DO Chronic kidney disease, stage 4 (severe) (HCC) (Primary Dx); Chronic systolic heart failure (HCC); Chronic viral hepatitis C (HCC); Other emphysema (HCC) from Last 3 Months Immunizations Immunization Administration Dates Next Due Hepatitis A 10/17/2012 [...] Sign Reading Time Taken Comments Blood Pressure 124/78 11/08/2024 11:03 AM EDT Pulse 72 11/08/2024 11:03 AM EDT Temperature - - Respiratory Rate - - Oxygen Saturation - - Inhaled Oxygen Concentration - - Weight - - Height - - Body Mass Index - - Plan of Treatment Upcoming Encounters Date Type Department Care Team (Late st Contact Info) Description 03/16/2025 2:30 PM EDT Office Visit [facility] [address] [place] [phone] Ruy Mack DO [address] [facility] [address] [place] [phone] Health Maintenance Due Date Last Done Comments Colorectal Cancer Screening: Annual FOBT 12/09/2008 Colorectal Cancer Screening: Colonoscopy 12/09/2008 Colorectal Cancer Screening: Sigmoidoscopy 12/09/2008 Hepatitis B Vaccine (1 of 3 - Risk 3-dose series) 2019 10/26/2012, 10/26/2012 Pneumococcal Vaccine: 50+ Ye ars (3 of 3 - PPSV23, PCV20 or PCV21) 09/10/2026 09/10/2021, 12/08/2012 Pneumococcal Vaccine: Peds ( 0 to 5 Years) and At-Risk Patients (6 to 49 Years) Discontinued 09/10/2021, 12/08/2012 Influenza Vaccine Completed 06/05/2024, , 06/14/2019, Additional history exists Insurance [address] [place] [id number] [facility] [employer] [facility] ([id number]) Care Teams Tobacco Sample Puller Relationship Specialty Start Date End Date Nataliia Arroyo MD [address] [place] [address] [place] PCP - General Internal Medicine 11/08/24
--- OUTSIDE RECORDS SUMMARY | 2024-11-29 16:31 | XMS_ITS | Clinical Summary ---
Author Organization [facility] Exacter Address [address] [place] [address] Phone Care Team Providers Care Superintendent Warehouse Name Role Phone Loreta Bhagat MD Primary Care Provider [phone] Allergies No known active allergies Medications abacavir [...] Problem Noted Date Diagnosed Date Polysubstance abuse ([facility] V24, [facility] V28) 1 Overview (05/26/2024): Heroin/ cocaine/ tobacco HFrEF (heart failure with re duced ejection fraction) ([facility] V24, [facility] V28) 04/24/2024 Overview (05/26/2024): Last Assessment & Plan: Patient was documented with a history of HFrEF with some regional wall motion abnormalities. He is not on guideline directed therapy at this time Paar the problem is I do not have a full set of records to see why the medical therapy that was instituted by [facility] heart failure clinic has not been [...] directed therapy. Stage 3a chronic kidney disease ([facility] V24, [facility] /[facility] V28) 04/24/2022 Dyspnea 10/29/2021 Overview (05/26/2024): Last Assessment [...] tremor 09/29/2021 Overview (05/26/2024): Dr. Jacobsen Cardiomyopathy ([facility] V24, [facility] V28) 2021 Overview (05/26/2024): Last Assessment & Plan: Patient [...] routine medical care. AMBER (acute kidney injury) ([facility] V24) 04/21/20 Community acquired pneumonia 04/21/2020 Hyperkalemia 04/21/2020 Lesion of lung 04/21/2020 NSTEMI (non-ST elevated myoc ardial infarction) ([facility] V24, [facility] V28) 04/21/2020 Overview (05/26/2024): Last Assessment & Plan: Patient had a history of an NSTEMI with no significant obstructive coronary artery disease. Non-healing non-surgical wound 06/16/2018 Overview (05/26/2024): Chronic heal Pulmonary nodules 06/16/2018 Anemia 02/22/2014 Thalassemia minor 12/09/2012 Chronic hepatitis C ([facility] V24, [facility] V28) 0 10/25/2012 HIV (human immunodeficiency virus infection) ([facility] V24, [facility] V28) 10/25/2012 Overview (05/26/2024): longstanding untreated as of 01/13/18 Other emphysema ([facility] V24, [facility] V28) 10/25 Overview (05/26/2024): Pneumonia x 2 hospitalized Encounters Date Type Department Care Team Description 10/24/2024 Telephone Adult Medicine [address] [address] Loreta Bhagat MD Referral (Dr Joan Reilly - Infectious Disease ) from Last 3 Months Immunizations Name Administration [...] PLUG/STOP-CUFFLESS TRACH TUBE OTHER SURGICAL HISTORY PROCEDURE: [place] EGD PERCUTANEOUS PLACEMENT GASTROSTOMY TUBE CATARACT EXTRACTION PROCEDURE: HISTORICAL CATARACT REMOVAL; COMMENT: bilateral OTHER SURGICAL HISTORY 2015 PROCEDURE: ---- OTHER ----; COMMENT: bronchoscopy Medical History Medical History Date Comments HIV (human immunodeficiency virus infection) ([facility] V24, [facility] V28) 10/25/2012 DX:HIV (human im munodeficiency virus infection) ([facility]) COPD (chronic obstructive pu lmonary disease) ([facility] V24, [facility] V28) 10/25/2012 DX:COPD (chronic o bstructive pulmonary disease) ([facility]) Chronic hepatitis C ([facility] V24, [facility] V28) 10/25/2012 DX:Chronic hepatitis C (HCC) Historical Medical DX 11/08/2012 DX:Family history of sickle cell anemia Family history of colon cancer 11/08/2012 D X:Family history of colon cancer Thalassemia minor 12/09/2012 DX:Thalassemia minor History of cocaine abuse ([facility] V24, [facility] V28) DX:History of cocaine abuse (HCC); COMMENT: u tox pos 01/18/14 at [facility] Polysubstance abuse ([facility] V24, [facility] V28) DX:Polysubstance abuse (HCC) ; COMMENT: u tox pos 01/18/14 at [facility] Pulmonary nodules 06/16/2018 DX:Pulmonary n odules [...] Risk 2-dose series) 04/19/2013 10/17/2012 RSV Immunization Adult Patients (1 - Risk 60-74 years 1-dose series) 2019 Social Influencers of Health Screening 07/17/2022 Depression Screening 12/22/2023 12/21/2022 COVID-19 Vaccine ( season) 2024 2021, 08/06/2021, 01/10/2021, Additional history exists Colorectal Cancer Screening: Colonoscopy 07/18/2024 07/18/2014 Hypertension/CHF/CAD Annual BMP Blood Test 02/12/2025 02/13/2024 Influenza Vaccine (Season Ended) 2025 08/06/2021, 06/12/2015, 07/04/2014 Pneumococcal Vaccine: 50+ Years (3 of 3 [...] age to complete this topic Meningococcal B Vaccine Aged Out No l onger eligible based on patient's age to complete [...] Results * Annual BMP Blood Test (02/13/2024) Annual BMP Blood Test Abstracted us Historical Provider MD HEALTH MAINTENANCE Final Result * Lipid panel (09/14/2023) [facility] LDL/HDL Ratio 2 0 - 4 Triglycerides 66 0 - 150 mg/dL Cholesterol 113 0 - 200 mg/dL HDL 57 >=40 mg/dL LDL Cholesterol 43 0 - 100 mg/dL Blood Venous blood specimen / Unknown Result [facility] Provider LAB BLOOD ORDERABLES Nicky l Result * Depression Screening (12/21/2022) [facility] Depression Screening Abstracted Result [facility] Provider HEALTH MAINTENANCE Final Result * Hepatitis C Screening (08/15/2021) [facility] Hepatitis C Screening Abstracted Result [facility] Provider HEALTH MAINTENANCE Final Result * Colonoscopy (07/18/2014) [facility] Colonoscopy No interpretation with ,abstracted Anatomical Region Laterality Modality Other Result [facility] Provider HEALTH MAINTENANCE Final Result from Last 3 Months or Most Recently Relevant to Health Maintenance [place] [address] [address] HEALTH PLAN Advance Directives Documents on File Type Date Recorded 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
== END 2024-11-29 15:37 | disposition home or self-care (01) ==
LOC: HO.HCC 13:48
PROVIDERS: PCP Internal Medicine; Visit Provider Internal Medicine
DX: Z51.81 Encounter for therapeutic drug level monitoring (principal); F11.90 Opioid use, unspecified, uncomplicated
CPT/HCPCS: 99213

== ENCOUNTER → 2024-11-29 13:48 | Outpatient (BNVA) | payer OTHER, SELFPAY | PROVIDERS: PCP Internal Medicine; Visit Provider Internal Medicine | DX: F11.20 Opioid dependence, uncomplicated (principal); B20 Human immunodeficiency virus [HIV] disease; Z51.81 Encounter for therapeutic drug level monitoring; Z79.899 Other long term (current) drug therapy | CPT/HCPCS: 80307 ==

== ENCOUNTER 2024-12-24 03:33 | Inpatient (IN) | payer MEDICARE, SELFPAY ==
[2024-12-24] VITALS (65 sets, daily range): BP systolic 82–193; BP diastolic 47–132; PULSE 26–165; RESP 17–38; TEMP 34.3–38; O2SAT 86–100; BMI 22.5
--- NOTE | 2024-12-24 | ECG_ITS ---
Test Reason : REPEAT Blood Pressure : */* mmHG Vent. Rate : 148 BPM Atrial Rate : 148 BPM P-R Int : 160 ms QRS Dur : 82 ms QT Int : 260 ms P-R-T Axes : * 47 93 degrees QTcB Int : 408 ms Sinus tachycardia Anteroseptal infarct (cited on or before 12-Jan-2014) Abnormal ECG When compared with ECG of 24-Dec-2024 04:01, QRS axis Shifted right Referred By: Olivia Jameson Electronically Signed By: DANII ZENDEJAS MD
--- NOTE | ~2024-12-24 | XR_ITS ---
CLINICAL HISTORY: OGT placement 1 view chest x-ray Comparison: CR - XR CHEST 1V - 12/24/24 06:57 EDT Findings: Patchy consolidation of the right lower lobe, improved in the interval. Small persistent right pleural effusion. Normal size heart. No acute fracture. Enteric tube tip and side port is within the stomach. IMPRESSION: 1. Satisfactory placement of the enteric tube. 2. Interval improvement in patchy consolidation of the right lower lobe and small right pleural effusion. This document has been electronically signed by: Sarai Carranza MD on 12/24/2024 21:55:29
--- NOTE | ~2024-12-24 | XR_ITS ---
CLINICAL HISTORY: sob, copd 1 view chest x-ray Comparison: CT/SR - CT CHEST W IV CON - 09/12/24 17:40 EST CR/SR - XR CHEST 2V - 09/12/24 15:39 EST Findings: Heart size is stable. Lungs are hyperexpanded with chronic appearing bilateral areas of consolidation. There is an acute appearing consolidation in the right lower lobe not present on recent prior cross-sectional imaging. No acute osseous findings. Suspect small right effusion. IMPRESSION: 1. Chronic changes with superimposed consolidation in the right lower lobe and small right effusion. This document has been electronically signed by: Jesenia Mcdaniel MD on 12/24/2024 04:55:42
--- NOTE | ~2024-12-24 | XR_ITS ---
CLINICAL HISTORY: ETT 1 view chest x-ray Comparison: CR - XR CHEST 1V - 12/24/24 04:04 EDT Findings: Chronic changes. Increasing consolidation in the right lower lobe. Small right effusion. Endotracheal tube terminates approximately 4 cm above the ray. IMPRESSION: 1. Increasing airspace disease. Endotracheal tube appears to be in appropriate position. This document has been electronically signed by: Jesenia Mcdaniel MD on 12/24/2024 07:23:22
--- NOTE | 2024-12-24 03:49 | ECG_ITS ---
Test Reason : SOB Blood Pressure : */* mmHG Vent. Rate : 164 BPM Atrial Rate : * BPM P-R Int : * ms QRS Dur : 86 ms QT Int : 242 ms P-R-T Axes : * -29 96 degrees QTcB Int : 399 ms Supraventricular tachycardia Septal infarct (cited on or before 12-Jan-2014) Abnormal ECG When compared with ECG of 15-Sep-2024 04:19, Supraventricular tachycardia has replaced Normal sinus rhythm Vent. rate has increased by 56 bpm QRS axis Shifted left Questionable change in initial forces of Anterior leads T wave amplitude has increased in Inferior leads Referred By: Olivia Jameson Electronically Signed By: DANII ZENDEJAS MD
--- NOTE | 2024-12-24 03:53 | ED.SOB ---
HPI - SOB/Dyspnea General Chief Complaint: Dyspnea Stated Complaint: Diff Breathing, Rapid Sinus 170, BP 217/140, duo Time Seen by Provider: 12/24/24 03:48 Source: EMS Mode of arrival: EMS Limitations: other History of Present Illness ED Provider: Dr. Olivia Jameson HPI Narrative: patient comes to the emergency room via ambulance from home. According to EMS, the patient initially reported to be DNR DNI but per EMS, he told EMS that he changed his mind and reported that he wants everything to be done except dialysis. Patient unable to talk at this time, patient is just saying I can't breathe . according to EMS, patient's oxygen saturation. Per EMS, patient has history of multiple intubations. Patient has a trach, cannula was removed 4 months ago. Related Data Home Medications ?Medication ?Instructions ?Recorded ?Confirmed albuterol sulfate 90 mcg/actuation 2 puff inhalation Q4H PRN Wheezing 03/28/24 09/12/24 aerosol inhaler ascorbic acid (vitamin C) 500 mg 500 mg PO DAILY 03/28/24 09/12/24 tablet (Vitamin C) aspirin 81 mg tablet,delayed 81 mg PO DAILY 03/28/24 09/12/24 release dolutegravir 50 mg tablet (Tivicay) 50 mg PO DAILY 03/28/24 09/12/24 lamivudine 100 mg tablet 100 mg PO DAILY 03/28/24 09/12/24 lamotrigine 25 mg tablet 25 mg PO Q48H 03/28/24 09/12/24 pantoprazole 40 mg tablet,delayed 40 mg PO DAILY@0630 03/28/24 09/12/24 release Oxygen Home Use 06/05/24 Previous Rx's ?Medication ?Instructions ?Recorded budesonide-formoterol HFA 160 2 puff inhalation BID 30 days 05/04/24 mcg-4.5 mcg/actuation aerosol #10.2 grams inhaler (Symbicort) buprenorphine 12 mg-naloxone 3 mg 1 film buccal Q24H #30 ea 10/04/24 sublingual film (Suboxone) buprenorphine 12 mg-naloxone 3 mg 1 film sublingual Q24H 30 days #30 11/29/24 sublingual film (Suboxone) ea Allergies Allergy/AdvReac Type Severity Reaction Status Date / Time No Known Allergies Allergy Verified 12/24/24 03:54 Review of Systems Review of Systems: Yes Other ( shortness of breath, unable to speak) [facility] Past Medical History Medical History HIV (human immunodeficiency virus infection) Anemia CKD (chronic kidney disease) Acute hypoxic respiratory failure Respiratory failure Tachycardia Myocardial injury Pneumonia TERRY (obstructive sleep apnea) Pulmonary nodules Hepatitis C HIV disease COPD (chronic obstructive pulmonary disease) Social History Social History Household Members: Other Housing: Apartment Do you presently have visiting nurse or other home services: No Alcohol intake: former Comment: Sitter at bedside Patient Tobacco Use Status: Tobacco use Unknown Tobacco use type: Cigarette Cigarette Packs Per Day: 1 Cigarettes Per Day: 4 Years Smoked: 30 Years Smoked in Last 30 Days: Yes Use of substances other than those prescribed or required for medical reasons: Yes Substance Use Type: Marijuana Advance Directives: No Advance Directives Information Provided: Yes Do you have a plan to hurt others: No Plan service: No Physical Exam Vital Signs: Vital Signs: Last Vital Signs Temp 98.8 F 12/24/24 06:29 Pulse 130 H 12/24/24 06:29 Resp 24 H 12/24/24 06:29 BP 161/114 H 12/24/24 06:29 Pulse Ox 91 L 12/24/24 06:29 O2 Del Method BiPAP 12/24/24 06:29 FiO2 60 12/24/24 06:29 BMI result Body Mass Index 22.5 Const: Other: Appearance: Alert. Oriented X3. In respiratory distress, very anxious Eyes: Pupils equal, round and reactive to light. ENT: Pharynx normal. Neck: Normal inspection. Neck supple. No lymph nodes noted. No crepitus CVS: Normal heart rate and rhythm. Pulses normal. Normal S1 and S2 Respiratory: very tight, significantly decreased air movement, all lung sounds significantly decreased Abdomen: Soft and nontender. No rigidity. No distention. Skin: Skin warm and diaphoretic. Normal skin color. Normal skin turgor. Extremities: No lower extremity edema. No Lacerations. No Rash Neuro: Oriented X 3. No motor deficit. No sensory deficit. Moving all extremities. No slurred speech. CN 2 through 12 grossly intact Psych: anxious Course Course Course Narrative: patient's blood pressure is in the to 230s systolic, possible COPD exacerbation versus pneumonia versus flash pulmonary edema - patient was given nitro paste, Lasix, along with Solu-Medrol and nebulization treatment. Patient is on CPAP all of patient's labs and imaging pending. Patient is empirically being treated with ceftriaxone and azithromycin on arrival, questionable crackles on auscultation to the lungs. We will wait to start IV fluids patient's blood pressure at 193/129, Medications Administered Discontinued Medications Generic Name Dose Route Start Last Admin Trade Name Mor PRN Reason Stop Dose Admin Ceftriaxone Sodium 1 gm 12/24/24 03:52 12/24/24 04:11 Ceftriaxone Sodium 1 Gm Vial IVPUSH 12/24/24 03:53 1 gm ONCE ONE Administration Levalbuterol HCl 3.75 mg/ 0 mg 12/24/24 03:56 12/24/24 04:00 Ipratropium [place] 0.5 mg INHALE 12/24/24 03:57 1 dose ONCE ONE Administration Levalbuterol HCl 3.75 mg/ 0 mg 12/24/24 04:59 12/24/24 05:02 Ipratropium [place] 0.5 mg INHALE 12/24/24 05:00 1 dose ONCE ONE Administration Diazepam 2.5 mg 12/24/24 03:58 12/24/24 04:11 Diazepam 10 Mg/2 Ml Cartridge IVPUSH 12/24/24 03:59 2.5 mg STAT STA Administration Furosemide 80 mg 12/24/24 04:06 12/24/24 03:56 Furosemide 100 Mg/10 Ml Vial IVPUSH 12/24/24 04:07 80 mg ONCE ONE Administration Protocol Magnesium Sulfate 2 gm in 50 mls @ 25 mls/hr 12/24/24 03:52 12/24/24 05:56 Magnesium Sulfate/H2o IV 12/24/24 05:51 Infused ONCE ONE Infusion Azithromycin 500 mg/ Sodium 250 mls @ 125 mls/hr 12/24/24 04:01 12/24/24 06:11 Chloride IV 12/24/24 06:00 Infused ONCE ONE Infusion Sodium Chloride 2,070 mls @ 2,070 mls/hr 12/24/24 04:30 12/24/24 05:35 Ns 30 ml/kg infuse over 1 hr (2070 ml) 12/24/24 05:29 Infused IV Infusion .Q1H STA Acetaminophen 1,000 mg in 100 mls @ 400 mls/hr 12/24/24 05:14 12/24/24 05:32 Ofirmev IV 12/24/24 05:28 Infused ONCE ONE Infusion Acetaminophen 1,000 mg in 100 mls @ 400 mls/hr 12/24/24 05:23 12/24/24 05:31 Ofirmev IV 12/24/24 05:37 Not Given ONCE ONE Methylprednisolone Sodium Succinate 125 mg 12/24/24 03:52 12/24/24 03:56 Methylprednisolone Sod Succ 125 Mg Vial IVPUSH 12/24/24 03:53 125 mg ONCE ONE Administration Morphine Sulfate 4 mg 12/24/24 05:18 12/24/24 05:24 Morphine Sulfate 4 Mg/Ml Cartridge IVPUSH 12/24/24 05:19 4 mg ONCE ONE Administration Protocol Nitroglycerin 1 inch 12/24/24 04:06 12/24/24 03:56 Nitroglycerin 2 % Oint 1 Gm Packet TRANSDERMA 12/24/24 04:07 1 inch ONCE ONE Administration Medical Decision Making Medical Decision Making MDM Narrative: my interpretation of EKG, SVT versus sinus rhythm, heart rate 164, no ST changes, no peaked T-waves, QTC 399 my interpretation of labs: Patient's white blood cell count 18.8, hemoglobin hematocrit and platelets at baseline. Patient's venous gases show a pH of 7.2, pCO2 52, bicarb 20. Patient remains on BiPAP. Chemistry shows a potassium 5.6, no acute EKG changes. Patient's BUN 37, creatinine 2.93, this is patient's baseline. Lactic acid 2.2.. LFTs without any significant abnormality. Magnesium normal. Troponin is 64.3, BNP 148, at baseline. At this time, 04:30, be confirmed that patient is not in acute CHF exacerbation, we will start IV fluids. Patient already received IV antibiotics. Patient will remain on BiPAP for a few hours and then we will reassess labs again, and we will try to wean of patient off the BiPAP unfortunately, patient did not improve, patient was still very uncomfortable breathing, with frequent oxygen desaturations to the 80s. Patient started becoming more obtunded and patient was intubated. I discussed the patient with Dr. Allen, patient accepted to the intensive care unit Differential Diagnosis Differential Diagnoses: The differential diagnosis associated with the presentation includes ( flash pulmonary edema, pneumonia, CHF exacerbation, chronic lung disease) Admission/Observation Consideration of admission/observation: Escalation of care including admission/observation considered Consult Healthcare Provider Management of the patient was discussed with: Superintendent Menagerie Lab Data MDM Lab Attestation statement: I reviewed the patient's lab results. 12/24/24 03:52 12/24/24 03:52 Labs: Lab Results 12/24/24 12/24/24 12/24/24 Range/Units 03:50 03:52 04:05 WBC 18.8 H (4.8-10.8) X10*3/uL RBC 5.87 H (4.60-5.80) X10*6/uL Hgb 12.8 L (14.0-18.0) g/dl Hct 41.5 L (42.0-52.0) % MCV 70.7 L (80.0-98.0) fL MCH 21.8 L (27.0-33.0) pg MCHC 30.8 L (31.0-36.0) g/dl RDW 14.3 (11.0-16.0) % Plt Count 329 D (160-400) X10*3/uL MPV 9.8 (9.4-12.4) fL Immature Gran % (Auto) Cancelled Neut % (Auto) Cancelled Lymph % (Auto) Cancelled [place] % (Auto) Cancelled Eos % (Auto) Cancelled Baso % (Auto) Cancelled Lymph # (Auto) Cancelled [place] # (Auto) Cancelled Eos # (Auto) Cancelled Baso # (Auto) Cancelled Abs Immat Gran (auto) Cancelled Absolute Neuts (auto) Cancelled Absolute Nucleated RBC 0.000 (0.0-0.012) X10*3/uL Nucleated RBC % (auto) 0.0 (0.0-0.2) /100WBC Neutrophils % (Manual) 49 (45-73) % Band Neutrophils % 2 L (3-5) % Lymphocytes % (Manual) 39 (20-40) % Atypical Lymphs % (Man) 6 (0-6) % Monocytes % (Manual) 2 (2-11) % Eosinophils % (Manual) 2 (0-4) % Abs Neuts (Manual) 9.6 H (2.0-8.3) X10*3/uL Lymphocytes # (Manual) 7.3 H (1.2-4.9) X10*3/uL Atyp Lymphs # (Manual) 1.1 x10*3/uL Monocytes # (Manual) 0.4 (0.1-1.2) X10*3/uL Eosinophils # (Manual) 0.4 (0.0-0.4) X10*3/uL Smudge Cells PRESENT Toxic Granulation PRESENT Platelet Estimate SLIGHTLY INCREASED (NORMAL) Large Platelets PRESENT Plt Morphology Comment NOTED RBC Morphology NOTED Macrocytosis 1+ (5-14) /OIF Tear Drop Cells 1+ (0-2) /OIF Ovalocytes 1+ (5-14) /OIF Hold Blue Top SEE NOTE VBG pH 7.20 L* (7.32-7.43) VBG pCO2 52 mmHg VBG pO2 40 mmHg VBG HCO3 20 L (22-26) mmol/L VBG O2 Saturation 49.0 % VBG Base Excess -7.5 mmol/L Sodium 139 (135-145) mmol/L Potassium 5.6 H (3.3-5.1) mmol/L Chloride 105 (96-108) mmol/L Carbon Dioxide 17 L (22-29) mmol/L Anion Gap 23 H (12-20) BUN 37 H (9-16) mg/dL Creatinine 2.93 H (0.5-1.4) mg/dL Estim Creat Clear Calc 24.5 Estimated GFR 22 Random Glucose 210 H (60-115) mg/dL Lactic Acid 2.2 H* (0.5-2.0) mmol/L Calcium 10.3 H D (8.4-10.2) mg/dL Magnesium 2.5 (1.6-2.6) mg/dL Total Bilirubin 0.4 (0.0-1.0) mg/dL Direct Bilirubin 0.1 (0.0-0.5) mg/dL AST 63 H (5-37) U/L ALT 38 (0-40) U/L Alkaline Phosphatase 279 H (39-117) U/L Troponin I High Sens 64.3 H (<3.5-35.0) ng/L B-Natriuretic Peptide 148 H (<100) pg/mL Total Protein 10.0 H (6.5-8.0) g/dL Albumin 4.2 (3.5-5.0) g/dL Urine Opiates Screen (Not Detect) Ur Buprenorphine Scrn (Not Detect) ng/mL Ur Oxycodone Screen (Not Detect) ng/mL Urine Methadone Screen (Not Detect) ng/mL Urine Fentanyl Screen (Not Detect) Ur Barbiturates Screen (Not Detect) Ur Phencyclidine Scrn (Not Detect) Ur Amphetamines Screen (Not Detect) U Benzodiazepines Scrn (Not Detect) Urine Cocaine Screen (Not Detect) U Marijuana (THC) Screen (Not Detect) Influenza Type A (PCR) NEGATIVE (Negative) Influenza Type B (PCR) NEGATIVE (Negative) RSV RNA Qual (PCR) NEGATIVE (Negative) SARS-CoV-2 RNA (RT-PCR) NEGATIVE (Negative) 12/24/24 Range/Units 05:01 WBC (4.8-10.8) X10*3/uL RBC (4.60-5.80) X10*6/uL Hgb (14.0-18.0) g/dl Hct (42.0-52.0) % MCV (80.0-98.0) fL MCH (27.0-33.0) pg MCHC (31.0-36.0) g/dl RDW (11.0-16.0) % Plt Count (160-400) X10*3/uL MPV (9.4-12.4) fL Immature Gran % (Auto) Neut % (Auto) Lymph % (Auto) [place] % (Auto) Eos % (Auto) Baso % (Auto) Lymph # (Auto) [place] # (Auto) Eos # (Auto) Baso # (Auto) Abs Immat Gran (auto) Absolute Neuts (auto) Absolute Nucleated RBC (0.0-0.012) X10*3/uL Nucleated RBC % (auto) (0.0-0.2) /100WBC Neutrophils % (Manual) (45-73) % Band Neutrophils % (3-5) % Lymphocytes % (Manual) (20-40) % Atypical Lymphs % (Man) (0-6) % Monocytes % (Manual) (2-11) % Eosinophils % (Manual) (0-4) % Abs Neuts (Manual) (2.0-8.3) X10*3/uL Lymphocytes # (Manual) (1.2-4.9) X10*3/uL Atyp Lymphs # (Manual) x10*3/uL Monocytes # (Manual) (0.1-1.2) X10*3/uL Eosinophils # (Manual) (0.0-0.4) X10*3/uL Smudge Cells Toxic Granulation Platelet Estimate (NORMAL) Large Platelets Plt Morphology Comment RBC Morphology Macrocytosis /OIF Tear Drop Cells /OIF Ovalocytes /OIF Hold Blue Top VBG pH (7.32-7.43) VBG pCO2 mmHg VBG pO2 mmHg VBG HCO3 (22-26) mmol/L VBG O2 Saturation % VBG Base Excess mmol/L Sodium (135-145) mmol/L Potassium (3.3-5.1) mmol/L Chloride (96-108) mmol/L Carbon Dioxide (22-29) mmol/L Anion Gap (12-20) BUN (9-16) mg/dL Creatinine (0.5-1.4) mg/dL Estim Creat Clear Calc Estimated GFR Random Glucose (60-115) mg/dL Lactic Acid (0.5-2.0) mmol/L Calcium (8.4-10.2) mg/dL Magnesium (1.6-2.6) mg/dL Total Bilirubin (0.0-1.0) mg/dL Direct Bilirubin (0.0-0.5) mg/dL AST (5-37) U/L ALT (0-40) U/L Alkaline Phosphatase (39-117) U/L Troponin I High Sens (<3.5-35.0) ng/L B-Natriuretic Peptide (<100) pg/mL Total Protein (6.5-8.0) g/dL Albumin (3.5-5.0) g/dL Urine Opiates Screen Not Detected (Not Detect) Ur Buprenorphine Scrn Positive H (Not Detect) ng/mL Ur Oxycodone Screen Not Detected (Not Detect) ng/mL Urine Methadone Screen Not Detected (Not Detect) ng/mL Urine Fentanyl Screen Not Detected (Not Detect) Ur Barbiturates Screen Not Detected (Not Detect) Ur Phencyclidine Scrn Not Detected (Not Detect) Ur Amphetamines Screen Not Detected (Not Detect) U Benzodiazepines Scrn Not Detected (Not Detect) Urine Cocaine Screen Not Detected (Not Detect) U Marijuana (THC) Screen POSITIVE H (Not Detect) Influenza Type A (PCR) (Negative) Influenza Type B (PCR) (Negative) RSV RNA Qual (PCR) (Negative) SARS-CoV-2 RNA (RT-PCR) (Negative) Independent Interpretation I performed an independent interpretation of an: EKG and Plain X-Ray Radiology Impression Discussion of test interpretation with radiology: I have reviewed the radiologist's reading. Radiologist Impression: Heart size is stable. Lungs are hyperexpanded with chronic appearing bilateral areas of consolidation. There is an acute appearing consolidation in the right lower lobe not present on recent prior cross-sectional imaging. No acute osseous findings. Suspect small right effusion. IMPRESSION: 1. Chronic changes with superimposed consolidation in the right lower lobe and small right effusion Independent Historian Clinical information obtained from an independent historian. History obtained from or confirmed by: EMS Critical Care Time Critical Care Time Critical Care Time: Yes Total Critical Care Time: 90 Attestation: I have personally provided critical care time. Time includes review of lab data, radiology results, discussion with consultants, and monitoring for potential decompensation. Intervention performed as documented. Discharge Plan Discharge Clinical Impression: Pneumonia, COPD (chronic obstructive pulmonary disease), Acute hypoxic respiratory failure Patient Disposition: Admitted As Inpatient Prescriptions: No Action budesonide-formoterol [Symbicort] 160-4.5 mcg/actuation HFA aerosol inhaler 2 puff inhalation BID 30 Days Qty: 10.2 11RF lamivudine 100 mg tablet 100 mg PO DAILY lamotrigine 25 mg tablet 25 mg PO Q48H Tivicay 50 mg tablet 50 mg PO DAILY albuterol sulfate 90 mcg/actuation Hfa Aerosol Inhaler 2 puff INHALATION Q4H PRN (Reason: Wheezing) aspirin 81 mg Tablet,Delayed Release (Dr/Ec) 81 mg PO DAILY ascorbic acid (vitamin C) [Vitamin C] 500 mg Tablet 500 mg PO DAILY pantoprazole 40 mg Tablet,Delayed Release (Dr/Ec) 40 mg PO DAILY@0630 (DME) Oxygen Home Use Kit See Rx Instructions .ROUTE Rx Instructions: As directed buprenorphine-naloxone [Suboxone] 12-3 mg film 1 film buccal Q24H Qty: 30 1RF buprenorphine-naloxone [Suboxone] 12-3 mg film 1 film sublingual Q24H 30 Days Qty: 30 1RF Print Language: Setswana
[2024-12-24] MEDS: Furosemide 100 MG/10 ML VIAL 80 MG IVPUSH (03:56)
[2024-12-24] MEDS: Nitroglycerin 2 % Oint 1 GM Packet 1 INCH TRANSDERMA (03:56)
[2024-12-24] MEDS: Magnesium Sulfate/H2O 2 GM/50 ML PIGGYBACK IV (03:56)
[2024-12-24 03:57] LABS: Venous Blood Gas Refer to POC result
[2024-12-24 03:58] LABS: VBG Base Excess -7.5 mmol/L; VBG HCO3 20 mmol/L (22-26); VBG pCO2 52 mmHg; VBG pO2 40 mmHg
[2024-12-24] MEDS: levalbuterol HCL 3.75 MG, Ipratropium Bromide 0.5 MG INHALE ×2 (04:00→05:02)
--- NOTE | 2024-12-24 04:00 | PC.NURSE ---
pt presents to the ED via EMS from home c/o increased sob x unknown amount of time. pt called EMS d/t difficulty breathing. upon EMS arrival - pt noted to be in significant respiratory distress w/ an SPO2 of 87% on RA. pt received 2 duonebs via EMS w/ little to no good effect. hx COPD - 2L via NC PRN baseline. upon ED arrival - pt seemingly weak as he is unable to move extremities on command. extremities seemingly flaccid. skin cool to the the touch and diaphoretic. pt continues to remain in respiratory distress. pt sitting up in tripod position. use of accessory muscles noted. tachypneic. sob/wob noted. pt transitioned from breathing tx via EMS and placed on BIPAP w/ a settings of 12/5 @ 50%. pt noted to be hypoxic, hypertensive, tachycardic in the 170s - pt denies any chest pain/palpitations. pt noted to have a recent deccanulated trach in place - pt states recently removed x 4 months ago. pt noted to be a difficult stick. 18gIV ultrasound guided IV placed in the left basilic via PA. additional 18gIV placed in the right forearm. labs drawn/sent to lab. bilateral IV access secured w/ curex for safety precautions as pt remains diaphoretic. patient medicated per provider order. effectiveness pending plan of care ongoing.
[2024-12-24 04:01] LABS: Hematocrit 41.5 % (42.0-52.0); Hemoglobin 12.8 g/dl (14.0-18.0); Mean Corpuscular HGB Conc 30.8 g/dl (31.0-36.0); Mean Corpuscular Hemoglobin 21.8 pg (27.0-33.0); Mean Corpuscular Volume 70.7 fL (80.0-98.0); Mean Platelet Volume 9.8 fL (9.4-12.4); Platelet Count 329 X10*3/uL (160-400); Red Blood Count 5.87 X10*6/uL (4.60-5.80); Red Cell Distribution Width 14.3 % (11.0-16.0); White Blood Count 18.8 X10*3/uL (4.8-10.8)
[2024-12-24] MEDS: Azithromycin 500 MG in 0.9 % Sodium Chloride 250 ML 125 MG IV (04:11)
[2024-12-24] MEDS: cefTRIAXone sodium 1 GM VIAL IVPUSH (04:11)
[2024-12-24] MEDS: diazePAM 10 MG/2 ML CARTRIDGE 2.5 MG IVPUSH (04:11)
[2024-12-24 04:21] LABS: B Type Natriuretic Peptide 148 pg/mL (<100); Troponin-I High Sensitivity 64.3 ng/L (<3.5-35.0)
[2024-12-24 04:25] LABS: Lactic Acid 2.2 mmol/L (0.5-2.0)
[2024-12-24 04:26] LABS: Alanine Aminotransferase 38 U/L (0-40); Albumin Level 4.2 g/dL (3.5-5.0); Alkaline Phosphatase 279 U/L (39-117); Anion Gap 23 (12-20); Aspartate Amino Transferase 63 U/L (5-37); Bilirubin Direct 0.1 mg/dL (0.0-0.5); Bilirubin Total 0.4 mg/dL (0.0-1.0); Blood Urea Nitrogen 37 mg/dL (9-16); Calcium 10.3 mg/dL (8.4-10.2); Carbon Dioxide 17 mmol/L (22-29); Chloride 105 mmol/L (96-108); Creatinine Clr Calc Pharmacy 24.5; Estimated Glomerular Filt Rate 22; Glucose Random 210 mg/dL (60-115); Magnesium 2.5 mg/dL (1.6-2.6); Potassium 5.6 mmol/L (3.3-5.1); Sodium 139 mmol/L (135-145)
--- NOTE | 2024-12-24 04:28 | PC.NURSE ---
pt continues to remain on BIPAP via RT at this time. settings placed at 12/5 @ 45%. pt continues to remain in respiratory distress but has improved since COURT ADMINISTRATOR. tachypneic. sob/wob noted. respirations even/labored. pt remains in upright position to promote patent airway. abx continues to infuse at this time. CXR pending. plan of care ongoing. call jarrett placed within reach.
[2024-12-24 04:34] LABS: Atypical Lymph Absolute Manual 1.1 x10*3/uL; Atypical Lymphs Percent Manual 6 % (0-6); Band Neutrophils Percent 2 % (3-5); Eosinophils Absolute Manual 0.4 X10*3/uL (0.0-0.4); Eosinophils Percent Manual 2 % (0-4); Lymphocytes Absolute Manual 7.3 X10*3/uL (1.2-4.9); Lymphocytes Percent Manual 39 % (20-40); Monocytes Absolute Manual 0.4 X10*3/uL (0.1-1.2); Monocytes Percent Manual 2 % (2-11); Neutrophils Absolute Manual 9.6 X10*3/uL (2.0-8.3); Neutrophils Percent Manual 49 % (45-73)
--- NOTE | 2024-12-24 04:34 | PC.NURSE ---
BP continues to improve s/p medication administration. nitro paste removed from left side of chest at this time. provider notified/aware.
[2024-12-24 04:35] LABS: RBC Morphology NOTED
[2024-12-24] MEDS: SODIUM CHLORIDE 2070 ML IV (04:35)
[2024-12-24 04:36] LABS: Large Platelet PRESENT; Macrocytosis 1+ (5-14) /OIF; Platelet Estimate SLIGHTLY INCREASED (NORMAL); Platelet Morphology Comment NOTED
[2024-12-24 04:37] LABS: Ovalocytes 1+ (5-14) /OIF
[2024-12-24 04:38] LABS: Smudge Cells PRESENT; Tear Drop Cells 1+ (0-2) /OIF; Toxic Granulation PRESENT
[2024-12-24 04:47] LABS: Influenza A PCR NEGATIVE (Negative); Influenza B PCR NEGATIVE (Negative); Resp Syncy Virus RNA Qual PCR NEGATIVE (Negative); SARS COV2 PCR INHOUSE NEGATIVE (Negative)
[2024-12-24 05:17] LABS: Amphetamine Screen Urine Not Detected (Not Detect); Barbiturates, Urine Not Detected (Not Detect); Benzodiazepines Screen Urine Not Detected (Not Detect); Buprenorphine Scr Positive (Not Detect); Cannabinoid Screen Urine POSITIVE (Not Detect); Cocaine Screen Urine Not Detected (Not Detect); Fentanyl, urine Not Detected (Not Detect); Methadone Screen, Urine Not Detected (Not Detect); Opiate Screen Urine Not Detected (Not Detect); Oxycodone Screen Urine Not Detected (Not Detect); Phencyclidine Screen Urine Not Detected (Not Detect)
[2024-12-24] MEDS: Acetaminophen 1,000 MG/100 ML PIGGYBACK 400 MG IV (05:17)
[2024-12-24] MEDS: Morphine Sulfate 4 MG/ML CARTRIDGE IVPUSH (05:24)
--- NOTE | 2024-12-24 05:25 | PC.NURSE ---
pt remains tachypneic at this time despite previous interventions. pt receiving breathing tx via RT. morphine administered via IV as RR remains 36. pt remains in upright position to promote patent airway. BIPAP setting remain the same - 12/5 @ 45%. pt otherwise remains sinus tachycardic on the monitor. hypertensive. rectal temp displaying 100.4 - IV Tylenol administered per provider order. effectiveness pending. IVF/abx continues to infuse at this time. bladder scan obtained as pt was given 80mg IV lasix w/ minimal urine output. bladder scan displayed 106 s./p urinating approximately 25ml of clear, pale, nonfoul smelling urine. no new interventions needed s/p bladder scan at this time. plan of care ongoing. call jarrett placed within reach.
--- OUTSIDE RECORDS SUMMARY | 2024-12-24 05:38 | XMS_ITS | Clinical Summary ---
Author Organization [facility] Address [address] [facility] [place] [address] Phone Care Team Providers Care Morning Show Newscast Producer Name Role Phone Loreta Bhagat MD Primary Care Provider [phone] Allergies No known active allergies Medications abacavir [...] Problem Noted Date Diagnosed Date Polysubstance abuse ([facility] V24, [facility] V28) 1 Overview (05/26/2024): Heroin/ cocaine/ tobacco HFrEF (heart failure with re duced ejection fraction) ([facility] V24, [facility] V28) 04/24/2024 Overview (05/26/2024): Last Assessment & Plan: Patient was documented with a history of HFrEF with some regional wall motion abnormalities. He is not on guideline directed therapy at this time Paar the problem is I do not have a full set of records to see why the medical therapy that was instituted by [facility] heart failure clinic has not been [...] directed therapy. Stage 3a chronic kidney disease ([facility] V24, CM /[facility] V28) 04/24/2022 Dyspnea 10/29/2021 Overview (05/26/2024): [...] tremor 09/29/2021 Overview (05/26/2024): Dr. Jacobsen Cardiomyopathy ([facility] V24, [facility] V28) 2021 Overview (05/26/2024): Last Assessment [...] routine medical care. AMBER (acute kidney injury) ([facility] V24) 04/21/20 Community acquired pneumonia 04/21/2020 Hyperkalemia 04/21/2020 Lesion of lung 04/21/2020 NSTEMI (non-ST elevated myoc ardial infarction) ([facility] V24, [facility] V28) 04/21/2020 Overview (05/26/2024): Last Assessment & Plan: Patient had a history of an NSTEMI with no significant obstructive coronary artery disease. Non-healing non-surgical wound 06/16/2018 Overview (05/26/2024): Chronic heal Pulmonary nodules 06/16/2018 Anemia 02/22/2014 Thalassemia minor 12/09/2012 Chronic hepatitis C ([facility] V24, [facility] V28) 0 10/25/2012 HIV (human immunodeficiency virus infection) ([facility] V24, [facility] V28) 10/25/2012 Overview (05/26/2024): longstanding untreated as of 01/13/18 Other emphysema ([facility] V24, [facility] V28) 10/25 Overview (05/26/2024): Pneumonia x 2 hospitalized Encounters Date Type Department Care Team Description 10/24/2024 Telephone Adult Medicine [address] [address] Loreta Bhagat MD Referral (Dr [...] PLUG/STOP-CUFFLESS TRACH TUBE OTHER SURGICAL HISTORY PROCEDURE: [place] EGD PERCUTANEOUS PLACEMENT GASTROSTOMY TUBE CATARACT EXTRACTION PROCEDURE: HISTORICAL CATARACT REMOVAL; COMMENT: bilateral OTHER SURGICAL HISTORY 2015 PROCEDURE: ---- OTHER ----; COMMENT: bronchoscopy Medical History Medical History Date Comments HIV (human immunodeficiency virus infection) ([facility] V24, [facility] V28) 10/25/2012 DX:HIV (human im munodeficiency virus infection) ([facility]) COPD (chronic obstructive pu lmonary disease) ([facility] V24, [facility] V28) 10/25/2012 DX:COPD (chronic o bstructive pulmonary disease) ([facility]) Chronic hepatitis C ([facility] V24, [facility] V28) 10/25/2012 DX:Chronic hepatitis C (HCC) Historical Medical DX 11/08/2012 DX:Family history of sickle cell anemia Family history of colon cancer 11/08/2012 D X:Family history of colon cancer Thalassemia minor 12/09/2012 DX:Thalassemia minor History of cocaine abuse ([facility] V24, [facility] V28) DX:History of cocaine abuse (HCC); COMMENT: u tox pos 01/18/14 at [facility] Polysubstance abuse ([facility] V24, [facility] V28) DX:Polysubstance abuse (HCC) ; COMMENT: u tox pos 01/18/14 at [facility] Pulmonary nodules 06/16/2018 DX:Pulmonary n odules Non-healing [...] Date Smoking Tobacco: Every Day Cigarettes 0.3 50.4 Started: 08/09/1974 Smokeless Tobacco: Never Alcohol Use [...] - Risk 60-74 years 1-dose series) 2019 Abdominal Aortic Aneurysm (AAA) Screen 07/17/2022 Social Influencers of Health Screening 07/17/2022 Depression Screening 12/22/2023 12/21/2022 COVID-19 Vaccine ( season) 2024 2021, 08/06/2021, 01/10/2021, Additional history exists Colorectal Cancer Screening: Colonoscopy 07/18/2024 07/18/2014 Falls Risk Assessment 12/09/2024 Hypertension/CHF/CAD Annual BMP Blood Test 02/12/2025 02/13/2024 [...] Test (02/13/2024) Annual BMP Blood Test Abstracted [facility] Provider HEALTH MAINTENANCE Final Result * Lipid panel (09/14/2023) [facility] LDL/HDL Ratio 2 0 - 4 Triglycerides 66 0 - 150 mg/dL Cholesterol 113 0 - 200 mg/dL HDL 57 >=40 mg/dL LDL Cholesterol 43 0 - 100 mg/dL Blood Venous blood specimen / Unknown Result [facility] Provider LAB BLOOD ORDERABLES Nicky l Result * Depression Screening (12/21/2022) [facility] Depression Screening Abstracted Result [facility] Provider HEALTH MAINTENANCE Final Result * Hepatitis C Screening (08/15/2021) [facility] Hepatitis C Screening Abstracted [facility] Provider HEALTH MAINTENANCE Final Result * Colonoscopy (07/18/2014) [facility] Colonoscopy No interpretation with ,abstracted Anatomical Region Laterality Modality Other [facility] Provider HEALTH MAINTENANCE Final Result from Last 3 Months or Most Recently Relevant to Health Maintenance Insurance Advance Directives Documents on File Type Date Recorded 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
--- OUTSIDE RECORDS SUMMARY | 2024-12-24 05:38 | XMS_ITS | Encounter Summary ---
Author Organization [facility], Address [address] [place] [address] Phone Care Team Providers Care Nutrition Faculty Member Name Role Phone Nataliia Arroyo MD Primary Care Provider + [phone] Encounter Details Date Type Department Care Team (Late st Contact Info) Description 07/07/2024 Documentation Only [facility] [address] [place] [address] Ruy Mack DO [address] [place] [phone] Social History Tobacco Use Types Packs/Day Years [...] Visit [facility] [address] [place] [phone] Ruy Mack DO [address] [place] [address] documented as of this encounter Visit Diagnoses Not on filedocumented in this encounter Care Teams Nutrition Faculty Member Relationship Specialty Start Date End Date Nataliia Arroyo MD [address] [facility] [address] [place] PCP - General Internal Medicine 11/08/24 documented as of this encounter
--- OUTSIDE RECORDS SUMMARY | 2024-12-24 05:38 | XMS_ITS | Encounter Summary ---
Author Organization [facility] Address [address] [place] [address] Phone Care Team Providers Care Manager Of Network Name Role Phone Nataliia Arroyo MD Primary Care Provider + [phone] Encounter Details Date Type Department Care Team (Late st Contact Info) Description 04/18/2024 Documentation Only [facility] [address] [place] [address] [address] [place] [address] [place] [phone] Social History Tobacco Use Types Packs/Day Years [...] Visit [facility] [address] [place] [address] Ruy Mack DO [address] [place] [address] documented as of this encounter Visit Diagnoses Not on filedocumented in this encounter Care Teams Manager Of Network Relationship Specialty Start Date End Date Nataliia Arroyo MD [address] PCP - General Internal Medicine 11/08/24 documented as of this encounter
--- OUTSIDE RECORDS SUMMARY | 2024-12-24 05:38 | XMS_ITS | Encounter Summary ---
Author Organization [facility], Address [address] [place] [address] Phone Care Team Providers Care Sand Slinger Name Role Phone Nataliia Arroyo MD Primary Care Provider + [phone] Encounter Details Date Type Department Care Team (Late st Contact Info) Description 07/07/2024 Documentation Only [facility] [address] [place] [address] Ruy Mack DO [address] [place] [phone] Social History Tobacco Use Types Packs/Day Years [...] Visit [facility] [address] [place] [phone] Ruy Mack DO [address] [place] [address] documented as of this encounter Visit Diagnoses Not on filedocumented in this encounter Care Teams Sand Slinger Relationship Specialty Start Date End Date Nataliia Arroyo MD [address] [facility] [address] [place] PCP - General Internal Medicine 11/08/24 documented as of this encounter
--- OUTSIDE RECORDS SUMMARY | 2024-12-24 05:38 | XMS_ITS | Clinical Summary ---
Author Organization [facility], Address [address] [place] [address] [place] [address] Phone Care Team Providers Care Foreclosure Paralegal Name Role Phone Nataliia Arroyo MD Primary Care Provider + [phone] Allergies No known active allergies Medications aspirin [...] day if needed Active epoetin kellen (EPOGEN,PROCRIT) 33606 UNIT/ML injectionIndicat ions:Anemia due to Renal Failure [...] Visit [facility], [address] [place] [address] Ruy Mack DO Chronic kidney disease, stage [...] Visit [facility] [address] [place] [phone] Ruy Mack DO [address] [place] [phone] Health Maintenance Due Date Last Done Comments [...] , 06/14/2019, Additional history exists Insurance [address] [place] [id number] [facility] [employer] [facility] ([id number]) Care Teams Foreclosure Paralegal Relationship Specialty Start Date End Date Nataliia Arroyo MD [address] [place] [address] [place] PCP - General Internal Medicine 11/08/24
--- OUTSIDE RECORDS SUMMARY | 2024-12-24 05:38 | XMS_ITS | Continuity of Care Document ---
Author Organization [facility] Address [address] [facility] [address] [place] [address] Phone Care Team Providers Care Shoe Clerk Name Role Phone Pineda WELDER AND FITTERRosemary Unavailable Unavailable Allergies, Adverse Reactions, Alerts Substance [...] Location Reason(s) For Visit Diagnoses Date Provider [facility] [address] [facility] [address] [facility], [place], [place], [id number], [place] tel:[phone] [place] Acute Visit (chief complaint) No Information December-0 5 Pineda Riley. [address] [place], [id number] , [place]. tel:[phone] [facility], [address] [facility] [address], [place], [place], [id number], [place] tel:[phone] [place] No Information Nov-0 5 Pineda Riley. [address] [place], [id number] , [place]. tel:[phone] [facility] [address] [facility] [address] [facility], [place], [place], [id number], [place] tel:[phone] [place] Chronic kidney disea se, stage 4 (severe) Apr-0 - 5 Pineda Riley. [address] [place], [id number] , [place]. tel:[phone] [facility], [address] [facility] [address], [place], [place], [id number], [place] tel:[phone] [place] Family history of malignant neoplasm of digestive organs Mar-3 5 Pineda Riley. [address] [place], [id number] , [place]. tel:[phone] [facility], [address], [place], [place], [id number], [place] tel:[phone] [place] No Information Oct-2 5 Pineda Riley. [address] [place], [id number] , [place]. tel:[phone] [facility], [address] [facility] [address], [place], [place], [id number], [place] tel:[phone] [place] Encounter for rehabilitation evaluation Oct-2 5 Marcy Reyes. [address] [place], [address]. tel:[phone] [facility], [address], [place], [place], [id number], [place] tel:[phone] [place] No Information Oct-1 - 5 Pineda Riley. [address] [place], [id number] , [place]. tel:[phone] [facility], [address], [place], [place], [id number], [place] tel:[phone] [place] No Information Oct- 5 Pineda Riley. [address] [place], [id number] , [place]. tel:[phone] [facility], [address] [facility] [address] [facility], [place], [place], [id number], [place] tel:[phone] [place] [address] No Information Oct-0 5 Pineda Riley. [address] [place], [id number] , [place]. tel:[phone] [facility], [address] [facility] [address], [place], [place], [id number], [place] tel:[phone] [place] Human immunodeficien cy virus [HIV] disease Mar-0 5 Pineda Riley. [address] [place], [id number] , [place]. tel:[phone] [facility], [address], [place], [place], [id number], [place] tel:[phone] [place] Acute Visit (chief complaint) Heart failure with reduced ejection fraction (HFrEF, <= 40%)HIV diseaseInsomnia, unspecified type Sep- 5 Pineda Riley. [address] [place], [id number] , [place]. tel:[phone] [facility], [address], [place], [place], [id number], [place] tel:[phone] [place] No Information 5 Pineda Riley. [address] [place], [id number] , [place]. tel:[phone] [facility], [address] [facility] [address], [place], [place], [id number], [place] tel:[phone] [place] Encounter for rehabilitation evaluation 5 Marcy Reyes. [address] [place], [place], [address]. tel:[phone] [facility], [address] [facility] [address], [place], [place], [id number], [place] tel:[phone] [place] Acute Visit (chief complaint) COPD exacerbationMDD (major depressive disorder), recurrent episode, mildHeart failure with reduced ejection fraction (HFrEF, <= 40%) 5 Pineda Riley. [address] [place], [id number] , [place]. tel:[phone] [facility], [address] [facility] [address], [place], [place], [id number], [place] tel:[phone] [place] No Information 5 Pineda Riley. [address] [place], [id number] , [place]. tel:[phone] [facility], [address], [place], [place], [id number], [place] tel:[phone] [place] Encounter for rehabilitation evaluation 5 Karol William. [address] [place], [id number] , [place]. tel:[phone] [facility], [address], [place], [place], [id number], [place] tel:[phone] [place] Difficulty in walkin g, not elsewhere classifiedEncounter for rehabilitation evaluation 5 Marcy Reyes. [address] [place], [place], [address]. tel: [phone] [facility], [address] [facility] [address] [facility], [place], [place], [id number], tel:[phone] [place] Post Enrollment Evaluation (chief complaint) Opioid dependence on agonist therapyEncephalomalacia with cerebral infarctionCerebrovascular diseaseHIV diseaseAcquired immunocompromised stateCentrilobular emphysemaChronic respiratory failure with hypoxiaStatus post tracheostomyCKD (chronic kidney disease) stage 4, GFR 15-29 ml/minCoronary artery disease involving [place] coronary artery of [place] heart without angina pectorisHeart failure with reduced ejection fraction (HFrEF, <= 40%)Hypertensive heart and kidney disease with HF and with CKD stage IVGastroesophageal reflux disease without esophagitisBenign prostatic hyperplasia with lower urinary tract symptoms, symptom details unspecifiedSecondary hyperparathyroidism of renal originAnemia, unspecified typeChronic hepatitis B 5 Pineda Tipton [address] [place], [id number] , [place]. tel:[phone] [facility], [address] [facility], [place], [place], [id number], [place] tel:[phone] [place] Encounter for nutrit ional assessmentAt risk for inadequate oral intakeIncreased nutritional needs 5 Lila Barclay. [address] [place], [id number] , [place]. tel:[phone] [facility], [address] [facility] [address], [place], [place], [id number], [place] tel:[phone] [place] Opioid dependence, i n remissionTracheostomy status [address] [place], [id number] , [place]. tel:[phone] [facility], [address] [facility], [place], [place], [id number], [place] tel:[phone] [place] No Information 4 Pineda Galleg[address] [place], [place], [id number] , [place]. tel:[phone] Family History Family Member Type Diagnosis Age At Onset No Information Immunizations Vaccine Date Status Comments Flu-IIV3,p-free administered Source: [facility] Payers Payer name Insurance type Covered constitution party ID Jose E navas(s) [place] [id number] Social History Type Description Quantity Date Captured Comments Alcohol Use Details Unknown Caffeine Use Details Unknown Tobacco Use Status No Information Smoking Status No Information Sex Male Vital Signs Date / Time: Height Weight BMI Pulse Rate Blood Pressure Temperature Respiratory Rate Body Surface Area Head Circumference Head Circ. Percentile Wt./Mello. Percentile BMI percentile Pulse Ox Inhaled Ox 12:56 PM 68.00 in 66.497 kg (146.60 lbs) 22.2 9 kg/m eter (2) 99 /min 110/60 mm[Hg] 96.40 F 17 /min 1.79 meter(2) 95 % 21 % Chief Complaint And Reason For Visit From encounter dated '12/13/2024 12:46'. Acute Visit (chief complaint) Plan Of Treatment Date Type Action Status Referral Ordered: Gastroenterology (related to Family history of colon cancer in father) ordered Referral Referred To: [facility] Ordered: Referrals: Pain Medicine. [facility]. Evaluate and treat Appointment date/timeframe: 08/30/2024 ordered Referral Ordered: Referrals: Pulmonary Rehab. Evaluate and treat Appointment date/timeframe: 08/15/2024 ordered History Of Present Illness Encounter Date Complaint History Of Prese nt Illness Acute Visit Acute Visit Earl is here f or [...] HR, 94, mild systolic murmurLE trace edema Acute Visit Earl is here f or [...] regular HR, no murmurLE +2 pitting edema [id number] weight increase in the past month and [...] and 2 recent admits om 2023 to [facility] with sepsis, MSSA bacteremia, AMBER on CKD, [...] failure. Has VNA for trach/wound care.Admit to [facility] from 11/27-12/22/2023 with sepsis, MSSA bacteremia and treated for, per notes, c.difficile colitis with fidaxomicin (NO colitis on scanned CT a/p from 12/01 & 12/11 so likely c.diff diarrhea NOT colitis.) and HIV regimen changed to Abacavir, dolutegravir & rilpivirine with AMBER on CKD.Readmit to [facility] from 12/30-01/09/2024 with anemia (Hgb 5.5) and [...] if had colonoscopy - sounds like at [facility] had EGD only (as both parents who are had colon cancer) - if not should be scheduled Instructions Date Instruction Additional Infor ciera He reported having t rouble falling asleep [...] ASA. Related to Coronary artery disease involving [place] coronary artery of [place] heart without angina pectoris With baseline eGFR [...]
[2024-12-24 05:56] LABS: Reflex Lactate? Lactic Acid Added
--- NOTE | 2024-12-24 06:16 | PC.NURSE ---
pt noted to desat to 85% on BIPAP w/ settings of 12/5 @ 45%. RT/MD notified/aware/bedside. pt briefly placed on FiO2 of 100%. pt then transitioned back to settings of 12/5 @ 55%. plan of care ongoing.
--- NOTE | 2024-12-24 06:30 | PC.NURSE ---
pt no longer febrile at this time - repeat rectal temp s/p medication administration displaying 98.8. BIPAP settings changed by RT - settings placed at 16/10 @ 60% - SPO2 of 91%. pt remains tachypneic, tachycardic, hypertensive at this time. pt pending ICU bed assignment. plan of care ongoing. call jarrett placed within reach.
[2024-12-24] MEDS: Etomidate 20 MG/10 ML VIAL IVPUSH (06:47)
[2024-12-24] MEDS: Rocuronium Bromide 50 MG/5 ML VIAL IVPUSH (06:47)
[2024-12-24] MEDS: propofoL 200 MG/20 ML VIAL 60 MG IVPUSH (06:48)
[2024-12-24] MEDS: Albuterol Sulfate 2.5 MG, Albuterol/Iprat 2.5/0.5MG 3 ML 3 ML INHALE (07:02)
[2024-12-24] MEDS: propofoL 1,000 MG/100 ML VIAL 12.42 MG IVCONT (07:10)
--- NOTE | 2024-12-24 07:10 | PC.NURSE ---
come increasingly weak/lethargic. difficult to arouse. pt now only responsive to painful stimuli. limited reaction noted when sternal rubbed. provider notified/aware. MD/RT called bedside for assistance. RSI kit pulled. pt medicated with: 0647 - 20mg etomidate 0647 - 50mg rocuronium patient intubated w/o difficulty at 0648 - 7.5ETT and 25cm @ the lip. +breath sounds. +color change. 60mg propofol administered at 0650. repeat CXR bedside to confirm placement. ETT tube advanced by MD and now remains at 27cm @ the lip. propofol drip initiated infusing @ 30mcg/kg/min - will titrate as needed per protocol. see MAR for documented titrations.
--- NOTE | 2024-12-24 07:30 | PC.NURSE ---
propofol continues to infuse at 30mcg/kg/min. pt tolerating mechanical ventilation w/o difficulty. no apparent distress. vital signs continue to improve at this time. pending ICU bed assignment. plan of care ongoing.
[2024-12-24 07:35] LABS: VBG Base Excess -12.1 mmol/L; VBG HCO3 15 mmol/L (22-26); VBG pCO2 39 mmHg; VBG pH 7.19 (7.32-7.43); VBG pO2 172 mmHg
[2024-12-24 07:36] LABS: Venous Blood Gas Refer to POC result
--- NOTE | 2024-12-24 07:40 | PC.NURSE ---
16fr temp sensing langley placed at this time. 75ml of clear, pale yellow, non foul smelling urine noted immediately post output. core temp of 97.0 documented.
[2024-12-24 07:44] LABS: ~Lactic Acid-LAB USE ONLY 1.3 mmol/L (0.5-2.0)
[2024-12-24 07:59] LABS: Troponin-I High Sensitivity 216.7 ng/L (<3.5-35.0)
--- NOTE | 2024-12-24 08:00 | PC.NURSE ---
critical lab value received at this time. troponin of 216.7 - no new orders per Dr. Allen.
[2024-12-24] MEDS: Heparin Sodium,Porcine 5,000 UNIT/ML VIAL 5000 UNIT SUBCUT ×3 (08:15→23:01)
[2024-12-24] MEDS: Norepinephrine Bitartrate/D5W 8 MG/250 ML PLAST..BAG 6.47 MG IVCONT (08:20)
--- NOTE | 2024-12-24 08:21 | PC.NURSE ---
pt noted to become hypotensive. norepinephrine started/currently infusing at 0.05mcg/kg/min per verbal order of dr. mario. see MAR for documented titrations.
--- NOTE | 2024-12-24 10:06 | PC.NURSE ---
report given to MAURICIO Dugan in the ICU at this time.
--- NOTE | 2024-12-24 10:33 | P.HPCC_ITS ---
History of Present Illness Date of Service: 12/24/24 Chief Complaint: Dyspnea, acute respiratory failure, metabolic acidosis 64-year-old gentleman with underlying HIV on HAART, hepatitis-C, COPD with prior admission for ileus complicated by aspiration pneumonia with inability wean ventilatory support requiring tracheostomy, reversible paroxysmally 4 months prior presented on 12/24/2024 via EMS complain of acute dyspnea and hypoxia requiring intubation. Initial workup in emergency room significant for metabolic acidosis with likely developing right-sided pneumonia. Patient started on broad-spectrum antibiotics admitted to the intensive care unit. Review of Systems 2 Review of Systems: No unobtainable due to endotracheal tube or Unobtainable due to mental condition PMFSH Past Medical History Medical History HIV (human immunodeficiency virus infection) Anemia CKD (chronic kidney disease) Acute hypoxic respiratory failure Respiratory failure Tachycardia Myocardial injury Pneumonia TERRY (obstructive sleep apnea) Pulmonary nodules Hepatitis C HIV disease COPD (chronic obstructive pulmonary disease) Social History Social History Household Members: Other Housing: Apartment Do you presently have visiting nurse or other home services: No Alcohol intake: former Comment: Sitter at bedside Patient Tobacco Use Status: Tobacco use Unknown Tobacco use type: Cigarette Cigarette Packs Per Day: 1 Cigarettes Per Day: 4 Years Smoked: 30 Years Smoked in Last 30 Days: Yes Use of substances other than those prescribed or required for medical reasons: Yes Substance Use Type: Marijuana Advance Directives: No Advance Directives Information Provided: Yes Do you have a plan to hurt others: No Plan service: No Meds Allergies Allergy/AdvReac Type Severity Reaction Status Date / Time No Known Allergies Allergy Verified 12/24/24 03:54 Active Medications: Current Medications Chlorhexidine Gluconate (Chlorhexidine Gluc Oral Rinse 15 Ml Mouthwash) 15 ml BUCCAL TID [facility] Famotidine (Famotidine/Pf 20 Mg/2 Ml Vial) 20 mg IVPUSH DAILY [facility] Heparin Sodium (Porcine) (Heparin Sodium,Porcine 5,000 Unit/Ml Vial) 5,000 unit SUBCUT Q8H [facility] Last Admin: 12/24/24 08:15 Dose: 5,000 unit Propofol (Diprivan) 1,000 mg in 100 mls @ 0 mls/hr IVCONT .Q0M [facility]; Protocol Last Admin: 12/24/24 07:10 Dose: 30 mcg/kg/min, 12.42 mls/hr Norepinephrine Bitartrate (Levophed) 8 mg in 250 mls @ 0 mls/hr IVCONT .Q0M [facility]; Protocol Last Admin: 12/24/24 08:20 Dose: 0.05 mcg/kg/min, 6.47 mls/hr Sodium Bicarbonate 150 meq/ (Dextrose) 1,000 mls @ 100 mls/hr IV .Q10H [facility] Piperacillin Sod/Tazobactam (Sod 3.375 gm/ Sodium Chloride) 50 mls @ 100 mls/hr IV Q6H [facility] Vancomycin HCl 1,500 mg/ (Sodium Chloride) 500 mls @ 333.333 mls/hr IV ONCE ONE Stop: 12/24/24 11:47 Pharmacy Consult (Consult Rx Vancomycin Dosing) 1 each MISCELLANE DAILY PRN PRN Reason: Consult order Home Medications ?Medication ?Instructions ?Recorded ?Confirmed ?Last Taken ?Type albuterol sulfate 90 mcg/actuation 2 puff inhalation Q4H PRN Wheezing 03/28/24 09/12/24 Unknown History aerosol inhaler ascorbic acid (vitamin C) 500 mg 500 mg PO DAILY 03/28/24 09/12/24 09/11/24 History tablet (Vitamin C) aspirin 81 mg tablet,delayed 81 mg PO DAILY 03/28/24 09/12/24 09/11/24 History release dolutegravir 50 mg tablet (Tivicay) 50 mg PO DAILY 03/28/24 09/12/24 09/11/24 History lamivudine 100 mg tablet 100 mg PO DAILY 03/28/24 09/12/24 09/11/24 History pantoprazole 40 mg tablet,delayed 40 mg PO DAILY@0630 03/28/24 09/12/24 09/11/24 History release Oxygen Home Use 06/05/24 Unknown History buprenorphine 12 mg-naloxone 3 mg 1 film sublingual DAILY 12/24/24 Unknown History sublingual film (Suboxone) mirtazapine 7.5 mg tablet 7.5 mg PO BEDTIME 12/24/24 Unknown History Physical Exam 2 Vital Signs: Vital Signs: Last Vital Signs Temp 97.3 F 12/24/24 09:42 Pulse 100 12/24/24 09:42 Resp 26 H 12/24/24 09:42 BP 96/72 12/24/24 09:42 Pulse Ox 100 12/24/24 09:42 O2 Del Method Mechanical Ventil ation 12/24/24 09:42 FiO2 100 12/24/24 07:28 BMI result Body Mass Index 22.5 Const: General: no acute distress and other (Sedated on ventilatory support) Eyes: Sclerae: sclerae normal EOM: EOMs intact bilaterally Neck: Neck: Yes no lymphadenopathy, Yes trachea midline and Yes supple Resp: Auscultation: crackles (Right-sided) Cardio: Rate: regular rate Rhythm: regular rhythm Heart sounds: no gallops, no murmurs and no rubs GI: Palpation (GI): Soft to palpation and Other GI palpation findings present ( Nontender) Auscultation: normal bowel sounds Extrem: General: Yes no pedal edema, No clubbing and No cyanosis Results Labs 12/24/24 03:52 12/24/24 03:52 Labs: Laboratory Results - last 24 hr 12/24/24 12/24/24 12/24/24 03:50 03:52 04:05 MCV 70.7 L MCH 21.8 L MCHC 30.8 L RDW 14.3 Plt Count 329 D MPV 9.8 Immature Gran % (Auto) Cancelled Neut % (Auto) Cancelled Lymph % (Auto) Cancelled [place] % (Auto) Cancelled Eos % (Auto) Cancelled Baso % (Auto) Cancelled Lymph # (Auto) Cancelled [place] # (Auto) Cancelled Eos # (Auto) Cancelled Baso # (Auto) Cancelled Abs Immat Gran (auto) Cancelled Absolute Neuts (auto) Cancelled Absolute Nucleated RBC 0.000 Nucleated RBC % (auto) 0.0 Neutrophils % (Manual) 49 Band Neutrophils % 2 L Lymphocytes % (Manual) 39 Atypical Lymphs % (Man) 6 Monocytes % (Manual) 2 Eosinophils % (Manual) 2 Abs Neuts (Manual) 9.6 H Lymphocytes # (Manual) 7.3 H Atyp Lymphs # (Manual) 1.1 Monocytes # (Manual) 0.4 Eosinophils # (Manual) 0.4 Smudge Cells PRESENT Toxic Granulation PRESENT Platelet Estimate SLIGHTLY INCREASED Large Platelets PRESENT Plt Morphology Comment NOTED RBC Morphology NOTED Macrocytosis 1+ (5-14) Tear Drop Cells 1+ (0-2) Ovalocytes 1+ (5-14) Hold Blue Top SEE NOTE VBG pH 7.20 L* VBG pCO2 52 VBG pO2 40 VBG HCO3 20 L VBG O2 Saturation 49.0 VBG Base Excess -7.5 Anion Gap 23 H Estim Creat Clear Calc 24.5 Estimated GFR 22 Random Glucose 210 H Lactic Acid 2.2 H* Lactic Acid F/U @ 2Hr Calcium 10.3 H D Magnesium 2.5 Total Bilirubin 0.4 Direct Bilirubin 0.1 AST 63 H ALT 38 Alkaline Phosphatase 279 H B-Natriuretic Peptide 148 H Total Protein 10.0 H Albumin 4.2 Urine Opiates Screen Ur Buprenorphine Scrn Ur Oxycodone Screen Urine Methadone Screen Urine Fentanyl Screen Ur Barbiturates Screen Ur Phencyclidine Scrn Ur Amphetamines Screen U Benzodiazepines Scrn Urine Cocaine Screen U Marijuana (THC) Screen Influenza Type A (PCR) NEGATIVE Influenza Type B (PCR) NEGATIVE RSV RNA Qual (PCR) NEGATIVE SARS-CoV-2 RNA (RT-PCR) NEGATIVE 12/24/24 12/24/24 12/24/24 05:01 07:22 07:26 MCV MCH MCHC RDW Plt Count MPV Immature Gran % (Auto) Neut % (Auto) Lymph % (Auto) [place] % (Auto) Eos % (Auto) Baso % (Auto) Lymph # (Auto) [place] # (Auto) Eos # (Auto) Baso # (Auto) Abs Immat Gran (auto) Absolute Neuts (auto) Absolute Nucleated RBC Nucleated RBC % (auto) Neutrophils % (Manual) Band Neutrophils % Lymphocytes % (Manual) Atypical Lymphs % (Man) Monocytes % (Manual) Eosinophils % (Manual) Abs Neuts (Manual) Lymphocytes # (Manual) Atyp Lymphs # (Manual) Monocytes # (Manual) Eosinophils # (Manual) Smudge Cells Toxic Granulation Platelet Estimate Large Platelets Plt Morphology Comment RBC Morphology Macrocytosis Tear Drop Cells Ovalocytes Hold Blue Top VBG pH 7.19 L* VBG pCO2 39 VBG pO2 172 VBG HCO3 15 L VBG O2 Saturation 99.0 VBG Base Excess -12.1 Anion Gap Estim Creat Clear Calc Estimated GFR Random Glucose Lactic Acid Lactic Acid F/U @ 2Hr 1.3 Calcium Magnesium Total Bilirubin Direct Bilirubin AST ALT Alkaline Phosphatase B-Natriuretic Peptide Total Protein Albumin Urine Opiates Screen Not Detected Ur Buprenorphine Scrn Positive H Ur Oxycodone Screen Not Detected Urine Methadone Screen Not Detected Urine Fentanyl Screen Not Detected Ur Barbiturates Screen Not Detected Ur Phencyclidine Scrn Not Detected Ur Amphetamines Screen Not Detected U Benzodiazepines Scrn Not Detected Urine Cocaine Screen Not Detected U Marijuana (THC) Screen POSITIVE H Influenza Type A (PCR) Influenza Type B (PCR) RSV RNA Qual (PCR) SARS-CoV-2 RNA (RT-PCR) Assessment and Plan (1) Hepatitis C: Status: Acute (2) HIV (human immunodeficiency virus infection): Qualifiers: HIV symptom status: asymptomatic, with no history of HIV-related illness Qualified Code(s): Z21 - Asymptomatic human immunodeficiency virus [HIV] infection status Status: Acute (3) Acute hypoxic respiratory failure: Status: Acute (4) Metabolic acidosis: Status: Acute (5) Acute on chronic renal insufficiency: Status: Acute Plan Assessment: 64-year-old gentleman with underlying hep C, HIV on HAART, prior history ventilator dependence requiring tracheostomy, thereafter reduced, now admitted with acute hypoxic respiratory failure and combined metabolic/respiratory acidosis requiring ventilatory and pressor support, likely secondary to underlying pneumonia. Plan: Neuro: No acute issues. Cardiac: Continue to titrate off pressor support as tolerated. 2D echo is pending. Pulmonary: Acute respiratory failure with hypoxia continue to titrate off ventilatory support as tolerated. Likely underlying pneumonia, continue empiric antibiotic coverage. Renal: Acute on chronic renal failure. Non oliguric. Continue to monitor renal indices and urine output. Endo: No acute issues. GI: No acute issues. ID: Likely underlying community-acquired pneumonia. Cultures are pending. Continue broad-spectrum antibiotics. Underlying hep C and HIV. Heme/Onc: No acute issues. Psych: No acute issues. Miscellaneous: No acute issues. Prophylaxis: Heparin, famotidine Diet: NPO Critical care time spent: 90 minute
[2024-12-24 10:44] LABS: ABG Refer to POC result
[2024-12-24 10:46] LABS: ABG Base Excess 22.3 mmol/L; ABG HCO3 50 mmol/L (22-26); ABG pCO2 74 mmHg (32-45); ABG pH 7.44 (7.35-7.45); ABG pO2 318 mmHg (83-108)
[2024-12-24] MEDS: Sodium Bicarbonate 8.4% 50 MEQ/50 ML SYRINGE IVPUSH (10:58)
--- NOTE | 2024-12-24 11:11 | PHA.MEDREC ---
Addendum entered by Georgina Contreras [facility] 12/24/24 18:24: Reviewed by [facility] Original Note: Pharmacy Consult ? Medication Reconciliation Pharmacy has completed the medication reconciliation. Pt intubated. Spoke to pt's son on contact, who informed me that they do not know the medications and that [facility] (Pt's pharmacy would be best to contact). Utilized claim history as well to confirm meds.
[2024-12-24] MEDS: Piperacillin Sodium/Tazobactam 3.375 GM in 0.9 % Sodium Chloride 50 ML IV ×3 (11:15→23:00)
[2024-12-24] MEDS: Sodium Bicarbonate 8.4% 150 MEQ in Dextrose 5 % 850 ML 100 MEQ IV ×2 (11:48→21:41)
[2024-12-24] MEDS: propofoL 1,000 MG/100 ML VIAL 20.7 MG IVCONT ×2 (11:55→16:51)
[2024-12-24] MEDS: vancomycin HCL 1,500 MG in 0.9 % Sodium Chloride 500 ML 333.33 MG IV (12:10)
[2024-12-24 12:15] LABS: Glucose, Whole Blood 211 mg/dL (60-115)
--- NOTE | 2024-12-24 12:29 | PHA.PROG ---
Admission Date/Time: December 24, 2024 07:30 Indication: OTHER Weight in k kg Adjusted body weight in K KG [place] body weight in K KG Obesity Dosing Indication % IBW: Serum Creatinine - Last 168 Hours 12/24/24 03:52 Creatinine 2.93 H Estimated CrCl and GFR - Last 168 Hours 12/24/24 03:52 Estim Creat Clear Calc 24.5 Estimated GFR 22 Vancomycin Loading Dose: 1500 MG X 1 Current Vancomycin Dosing Regimen: 750 MG Q24H Vancomycin Monitoring using AUC goal of 400 - 600 range with trough as surrogate marker: PREDICTED AUC 568 Date and Time for next Vancomycin Level to be drawn: 12/25/24 AT 1000 ( BEFORE 2ND DOSE) Pharmacist Comments on Vancomycin Plan: MONITOR LEVELS DAILY DUE TO RENAL FXN Vancomycin dosing will take advantage of [employer] as a clinical decision support tool that uses Bayesian modeling to calculate individual patient's pharmacokinetic parameters and forecast the patient's drug concentration time course with the target goal AUC 24 range of 400 - 600 mg/L/hr.
[2024-12-24] MEDS: Chlorhexidine Gluc Oral Rinse 15 ML MOUTHWASH BUCCAL ×2 (15:52→20:30)
[2024-12-24 16:28] LABS: Anion Gap 19 (12-20); Blood Urea Nitrogen 46 mg/dL (9-16); Calcium 8.2 mg/dL (8.4-10.2); Carbon Dioxide 18 mmol/L (22-29); Chloride 106 mmol/L (96-108); Creatinine Clr Calc Pharmacy 22.1; Estimated Glomerular Filt Rate 19; Glucose Random 314 mg/dL (60-115); Potassium 6.5 mmol/L (3.3-5.1); Sodium 136 mmol/L (135-145)
[2024-12-24 17:25] LABS: Glucose, Whole Blood 315 mg/dL (60-115)
--- NOTE | 2024-12-24 19:10 | PC.NURSE ---
The patient arrived at the ICU approx. at? 1000? from ED.? Neuro/Resp: Sedated/intubated in the ED. does not open eyes, does not follow commands, flaccid extremities (passive ROM performed). Cardiac: SR, on norepinephrine gtt- see MAR, MAP goal >65.? GI/: unknown LBM , +bowel sounds, Miguel patent/ draining. Temp: ?95.9, Bearhugger in place, temp improving now 97.9 Infectious:? On IV abx, cultures pending. Lines: peripheral IV x3. ?
[2024-12-24 20:58] LABS: VBG Base Excess 0.5 mmol/L; VBG HCO3 20 mmol/L (22-26); VBG pCO2 21 mmHg; VBG pH 7.59 (7.32-7.43); VBG pO2 135 mmHg
[2024-12-24] MEDS: Furosemide 40 MG/4 ML VIAL IVPUSH (20:58)
[2024-12-24] MEDS: propofoL 1,000 MG/100 ML VIAL 16.56 MG IVCONT (21:42)
[2024-12-24] MEDS: Sodium Zirconium Cyclosilicate 10 GM POWD.PACK PO (22:02)
[2024-12-24 23:38] LABS: Venous Blood Gas Refer to POC result
[2024-12-25] VITALS (34 sets, daily range): BP systolic 101–174; BP diastolic 56–98; PULSE 65–96; RESP 14–24; TEMP 33.7–37.6; O2SAT 90–99; BMI 24.5
[2024-12-25 00:44] LABS: VBG Base Excess 3.6 mmol/L; VBG HCO3 24 mmol/L (22-26); VBG pCO2 26 mmHg; VBG pH 7.57 (7.32-7.43); VBG pO2 213 mmHg
[2024-12-25 00:45] LABS: Venous Blood Gas Refer to POC result
[2024-12-25 01:00] LABS: Anion Gap 16 (12-20); Blood Urea Nitrogen 49 mg/dL (9-16); Calcium 8.4 mg/dL (8.4-10.2); Carbon Dioxide 23 mmol/L (22-29); Chloride 104 mmol/L (96-108); Creatinine Clr Calc Pharmacy 22.1; Estimated Glomerular Filt Rate 19; Glucose Random 290 mg/dL (60-115); Potassium 4.4 mmol/L (3.3-5.1); Sodium 139 mmol/L (135-145)
[2024-12-25] MEDS: propofoL 1,000 MG/100 ML VIAL 16.56 MG IVCONT ×2 (02:07→07:19)
[2024-12-25] MEDS: Piperacillin Sodium/Tazobactam 3.375 GM in 0.9 % Sodium Chloride 50 ML IV ×4 (04:21→23:17)
[2024-12-25 05:43] LABS: VBG Base Excess 6.4 mmol/L; VBG HCO3 27 mmol/L (22-26); VBG pCO2 29 mmHg; VBG pH 7.58 (7.32-7.43); VBG pO2 68 mmHg
[2024-12-25 05:45] LABS: Venous Blood Gas Refer to POC result
[2024-12-25 06:09] LABS: Basophils Percent Auto 0.2 % (0-2); Hematocrit 31.1 % (42.0-52.0); Imm Gran Abs Auto 0.05 X10*3/uL (0.00-0.03); Imm Gran Pct Auto 0.4 % (0.0-0.4); Lymphocytes Absolute Auto 0.9 X10*3/uL (1.2-4.9); Lymphocytes Percent Auto 7.7 % (20-40); MANUAL DIFF FLAG NO; Mean Corpuscular HGB Conc 32.2 g/dl (31.0-36.0); Mean Corpuscular Hemoglobin 21.9 pg (27.0-33.0); Mean Corpuscular Volume 68.2 fL (80.0-98.0); Mean Platelet Volume 10.9 fL (9.4-12.4); Monocytes Absolute Auto 0.6 X10*3/uL (0.1-1.2); Monocytes Percent Auto 5.1 % (2-11); Neutrophils Absolute Auto 10.4 x10*3/uL (2.0-8.3); Neutrophils Percent Auto 86.6 % (45-73); Platelet Count 235 X10*3/uL (160-400); Red Blood Count 4.56 X10*6/uL (4.60-5.80); Red Cell Distribution Width 13.6 % (11.0-16.0)
[2024-12-25 06:45] LABS: Alanine Aminotransferase 710 U/L (0-40); Albumin Level 2.7 g/dL (3.5-5.0); Alkaline Phosphatase 174 U/L (39-117); Anion Gap 18 (12-20); Aspartate Amino Transferase 814 U/L (5-37); Bilirubin Total 0.3 mg/dL (0.0-1.0); Blood Urea Nitrogen 50 mg/dL (9-16); Calcium 8.3 mg/dL (8.4-10.2); Carbon Dioxide 26 mmol/L (22-29); Chloride 101 mmol/L (96-108); Creatinine Clr Calc Pharmacy 22.2; Estimated Glomerular Filt Rate 19; Glucose Random 263 mg/dL (60-115); Magnesium 2.4 mg/dL (1.6-2.6); Phosphorus 3.8 mg/dL (2.7-4.5); Potassium 4.2 mmol/L (3.3-5.1); Sodium 141 mmol/L (135-145); Total Protein 6.4 g/dL (6.5-8.0)
[2024-12-25] MEDS: Sodium Bicarbonate 8.4% 150 MEQ in Dextrose 5 % 850 ML 100 MEQ IV (07:08)
[2024-12-25] MEDS: Heparin Sodium,Porcine 5,000 UNIT/ML VIAL 5000 UNIT SUBCUT ×3 (07:10→23:21)
[2024-12-25] MEDS: Albumin Human 25 % 50 ML 100 ML IV ×2 (07:11→07:41)
[2024-12-25] MEDS: Chlorhexidine Gluc Oral Rinse 15 ML MOUTHWASH BUCCAL (07:20)
[2024-12-25] MEDS: Famotidine/PF 20 MG/2 ML VIAL IVPUSH (07:41)
--- NOTE | 2024-12-25 09:51 | P.PNCC_ITS ---
Subjective Subjective Date of Service: 12/25/24 Interval History: 64-year-old gentleman with underlying HIV on HAART, hepatitis-C, COPD with prior admission for ileus complicated by aspiration pneumonia with inability wean ventilatory support requiring tracheostomy, reversible paroxysmally 4 months prior presented on 12/24/2024 via EMS complain of acute dyspnea and hypoxia requiring intubation. Initial workup in emergency room significant for metabolic acidosis with likely developing right-sided aspiration pneumonia versus pneumonitis. Patient started on broad-spectrum antibiotics admitted to the intensive care unit. No events overnight. FiO2 requirements are improving. Critical Care Time (minutes): 60 Physical Exam 2 Vital Signs: Vital Signs: Last Vital Signs Temp 97.3 F 12/25/24 08:00 Pulse 68 12/25/24 09:00 Resp 18 12/25/24 09:00 BP 139/78 12/25/24 09:00 Pulse Ox 93 12/25/24 09:00 O2 Del Method Mechanical Ventil ation 12/25/24 09:00 FiO2 40 12/25/24 09:00 BMI result Body Mass Index 24.5 Const: General: no acute distress and other (Sedated on ventilatory support) Eyes: Sclerae: sclerae normal EOM: EOMs intact bilaterally Neck: Neck: Yes no lymphadenopathy, Yes trachea midline and Yes supple Resp: Auscultation: crackles (Mild bibasilar) Cardio: Rate: regular rate Rhythm: regular rhythm Heart sounds: no gallops, no murmurs and no rubs GI: Palpation (GI): Soft to palpation and Other GI palpation findings present ( Nontender) Auscultation: normal bowel sounds Extrem: General: Yes no pedal edema, No clubbing and No cyanosis Objective Data Labs 12/25/24 05:37 12/25/24 05:37 Labs: Laboratory Results - last 24 hr 12/24/24 12/24/24 12/24/24 10:38 11:34 15:28 WBC RBC Hgb Hct MCV MCH MCHC RDW Plt Count MPV Immature Gran % (Auto) Neut % (Auto) Lymph % (Auto) [place] % (Auto) Eos % (Auto) Baso % (Auto) Lymph # (Auto) [place] # (Auto) Eos # (Auto) Baso # (Auto) Abs Immat Gran (auto) Absolute Neuts (auto) Absolute Nucleated RBC Nucleated RBC % (auto) O2 Saturation 99.0 ABG pH at Pt Temp 7.44 ABG pCO2 at Pt Temp 74 H* ABG pO2 at Pt Temp 318 H ABG HCO3 50 H ABG Base Excess (Actual) 22.3 VBG pH VBG pCO2 VBG pO2 VBG HCO3 VBG O2 Saturation VBG Base Excess Sodium 136 Potassium 6.5 H* Chloride 106 Carbon Dioxide 18 L Anion Gap 19 BUN 46 H Creatinine 3.24 H Estim Creat Clear Calc 22.1 Estimated GFR 19 POC Glucose 211 H Random Glucose 314 H Calcium 8.2 L D Phosphorus Magnesium Total Bilirubin AST ALT Alkaline Phosphatase Total Protein Albumin 12/24/24 12/24/24 12/25/24 17:17 20:54 00:36 WBC RBC Hgb Hct MCV MCH MCHC RDW Plt Count MPV Immature Gran % (Auto) Neut % (Auto) Lymph % (Auto) [place] % (Auto) Eos % (Auto) Baso % (Auto) Lymph # (Auto) [place] # (Auto) Eos # (Auto) Baso # (Auto) Abs Immat Gran (auto) Absolute Neuts (auto) Absolute Nucleated RBC Nucleated RBC % (auto) O2 Saturation ABG pH at Pt Temp ABG pCO2 at Pt Temp ABG pO2 at Pt Temp ABG HCO3 ABG Base Excess (Actual) VBG pH 7.59 H VBG pCO2 21 VBG pO2 135 VBG HCO3 20 L VBG O2 Saturation 99.0 VBG Base Excess 0.5 Sodium 139 Potassium 4.4 D Chloride 104 Carbon Dioxide 23 Anion Gap 16 BUN 49 H Creatinine 3.24 H Estim Creat Clear Calc 22.1 Estimated GFR 19 POC Glucose 315 H Random Glucose 290 H Calcium 8.4 Phosphorus Magnesium Total Bilirubin AST ALT Alkaline Phosphatase Total Protein Albumin 12/25/24 12/25/24 12/25/24 00:41 05:37 05:39 WBC 12.0 H RBC 4.56 L D Hgb 10.0 L D Hct 31.1 L D MCV 68.2 L MCH 21.9 L MCHC 32.2 RDW 13.6 Plt Count 235 D MPV 10.9 Immature Gran % (Auto) 0.4 Neut % (Auto) 86.6 H Lymph % (Auto) 7.7 L [place] % (Auto) 5.1 Eos % (Auto) 0.0 Baso % (Auto) 0.2 Lymph # (Auto) 0.9 L [place] # (Auto) 0.6 Eos # (Auto) 0.0 Baso # (Auto) 0.0 Abs Immat Gran (auto) 0.05 H Absolute Neuts (auto) 10.4 H Absolute Nucleated RBC 0.000 Nucleated RBC % (auto) 0.0 O2 Saturation ABG pH at Pt Temp ABG pCO2 at Pt Temp ABG pO2 at Pt Temp ABG HCO3 ABG Base Excess (Actual) VBG pH 7.57 H 7.58 H VBG pCO2 26 29 VBG pO2 213 68 VBG HCO3 24 27 H VBG O2 Saturation 99.0 95.0 VBG Base Excess 3.6 6.4 Sodium 141 Potassium 4.2 Chloride 101 Carbon Dioxide 26 Anion Gap 18 BUN 50 H Creatinine 3.23 H Estim Creat Clear Calc 22.2 Estimated GFR 19 POC Glucose Random Glucose 263 H Calcium 8.3 L Phosphorus 3.8 Magnesium 2.4 Total Bilirubin 0.3 AST 814 H ALT 710 H Alkaline Phosphatase 174 H Total Protein 6.4 L Albumin 2.7 L Microbiology Microbiology Results: Microbiology 12/24/24 04:05 Blood - Venous Blood Culture - Preliminary No growth after 24 hours. 12/24/24 03:52 Blood - Venous Blood Culture - Preliminary No growth after 24 hours. Progress Note: A&P Assessment and plan (1) COPD (chronic obstructive pulmonary disease): Status: Acute (2) Acute hypoxic respiratory failure: Status: Acute (3) HIV (human immunodeficiency virus infection): Status: Acute (4) Hepatitis C: Status: Acute (5) Transaminitis: Status: Acute Plan Assessment: 64-year-old gentleman with underlying hep C, HIV on HAART, prior history ventilator dependence requiring tracheostomy, thereafter reduced, now admitted with acute hypoxic respiratory failure and combined metabolic/respiratory acidosis requiring ventilatory and pressor support, likely secondary to underlying pneumonia. Plan: Neuro: No acute issues. Cardiac: Continue to titrate off pressor support as tolerated. 2D echo is pending. Pulmonary: Acute respiratory failure with hypoxia continue to titrate off ventilatory support as tolerated. Likely underlying aspiration pneumonia versus pneumonitis, continue empiric antibiotic coverage. Renal: Acute on chronic renal failure. Non oliguric. Continue to monitor renal indices and urine output. Endo: No acute issues. GI: Transaminitis, likely related to initial ischemia with aspiration, continue to monitor. ID: Likely underlying community-acquired pneumonia versus pneumonitis. Cultures are pending. Continue broad-spectrum antibiotics. Underlying hep C and HIV. Heme/Onc: No acute issues. Psych: No acute issues. Miscellaneous: No acute issues. Prophylaxis: Heparin, famotidine Diet: NPO Critical care time spent: 60 minute Quality Stroke Does the patient have a stroke diagnosis?: No VTE Prior VTE?: No VTE Risk Level:: Medical - moderate - high VTE Device Contraindication: Treatment Not Indicated VTE Drug Contraindication: N/A - Med Ordered
[2024-12-25 11:02] LABS: Vancomycin Random 16.8 mcg/mL (15-20)
--- NOTE | 2024-12-25 11:08 | HE.PHANOTE ---
RE: VANCO DOSING Patient has poor renal function. Trough after loading dose of 1500 mg is 16.8 mg/L. Dose is started at 500 mg q24h with predicted auc 476 and trough 16.1. Next trough is scheduled for 12/26/24 @1000.
[2024-12-25 11:28] LABS: Glucose, Whole Blood 180 mg/dL (60-115)
[2024-12-25] MEDS: vancomycin HCL 500 MG in 0.9 % Sodium Chloride 100 ML 110 MG IV (12:14)
--- NOTE | 2024-12-25 15:12 | MHC.CM.PN ---
Met with patient to discuss d/c planning needs: pt resides with roommate, has [employer] for home O2 and [facility] for [employer]PER[employer], transportation and community supports. Pt very teary during discussion noting his past poor choices and continued declining health: states he feels unwell and dislikes the burden he feels he places on his family. Willing to meet with psych to discuss feelings: Pt states his goal is to return to home with existing supports/services: does not want STR. CM to follow for finalization of d/c needs. PCP Nataliia Gomez w/[facility]: IMM in chart - HCP on file and verified
[2024-12-25] MEDS: Dextrose 5 % and Lactated Ring 1,000 ML 50 ML IVCONT (15:20)
--- NOTE | 2024-12-25 17:11 | PC.NURSE ---
Patient attempting to get OOB, throwing legs over - patient educated on fall risk precautions - continues to be resistive to call, being verbally aggressive to staff. Security called to bedside to de-escalate. Patient continues to refuse high fall risk precautions. Patient educated on reasons for speech consult. Continuing to yell at staff, being disruptive. Bed alarm in place, awaiting tele sitter. MD notified.
[2024-12-25] MEDS: Benzonatate 100 MG CAPSULE 200 MG PO ×2 (17:45→23:16)
[2024-12-25 17:51] LABS: Glucose, Whole Blood 104 mg/dL (60-115)
[2024-12-26] VITALS (13 sets, daily range): BP systolic 113–136; BP diastolic 65–89; PULSE 70–96; RESP 12–20; TEMP 36–36.6; O2SAT 93–98; BMI 22.9
[2024-12-26 00:29] LABS: Glucose, Whole Blood 112 mg/dL (60-115)
[2024-12-26] MEDS: Acetaminophen 325 MG TABLET 975 MG PO (03:55)
[2024-12-26] MEDS: Piperacillin Sodium/Tazobactam 3.375 GM in 0.9 % Sodium Chloride 50 ML IV ×4 (04:09→23:11)
[2024-12-26 05:27] LABS: VBG Base Excess 5.3 mmol/L; VBG HCO3 28 mmol/L (22-26); VBG pCO2 36 mmHg; VBG pO2 73 mmHg
[2024-12-26 05:29] LABS: Venous Blood Gas Refer to POC result
[2024-12-26 05:34] LABS: MANUAL DIFF FLAG NO
[2024-12-26 05:38] LABS: Basophils Percent Auto 0.1 % (0-2); Eosinophils Percent Auto 0.4 % (0-4); Hematocrit 28.5 % (42.0-52.0); Hemoglobin 9.1 g/dl (14.0-18.0); Imm Gran Abs Auto 0.04 X10*3/uL (0.00-0.03); Imm Gran Pct Auto 0.4 % (0.0-0.4); Lymphocytes Absolute Auto 1.3 X10*3/uL (1.2-4.9); Lymphocytes Percent Auto 14.8 % (20-40); Mean Corpuscular HGB Conc 31.9 g/dl (31.0-36.0); Mean Corpuscular Hemoglobin 21.8 pg (27.0-33.0); Mean Corpuscular Volume 68.2 fL (80.0-98.0); Mean Platelet Volume 10.1 fL (9.4-12.4); Monocytes Absolute Auto 0.6 X10*3/uL (0.1-1.2); Monocytes Percent Auto 6.1 % (2-11); Neutrophils Absolute Auto 7.1 x10*3/uL (2.0-8.3); Neutrophils Percent Auto 78.2 % (45-73); Platelet Count 175 X10*3/uL (160-400); Red Blood Count 4.18 X10*6/uL (4.60-5.80); Red Cell Distribution Width 13.9 % (11.0-16.0); White Blood Count 9.1 X10*3/uL (4.8-10.8)
[2024-12-26 06:01] LABS: Alanine Aminotransferase 492 U/L (0-40); Albumin Level 3.1 g/dL (3.5-5.0); Alkaline Phosphatase 153 U/L (39-117); Anion Gap 15 (12-20); Aspartate Amino Transferase 331 U/L (5-37); Bilirubin Total 0.5 mg/dL (0.0-1.0); Blood Urea Nitrogen 48 mg/dL (9-16); Calcium 8.3 mg/dL (8.4-10.2); Carbon Dioxide 26 mmol/L (22-29); Chloride 107 mmol/L (96-108); Creatinine Clr Calc Pharmacy 26.3; Estimated Glomerular Filt Rate 23; Glucose Random 112 mg/dL (60-115); Magnesium 2.4 mg/dL (1.6-2.6); Phosphorus 3.8 mg/dL (2.7-4.5); Potassium 3.9 mmol/L (3.3-5.1); Sodium 144 mmol/L (135-145); Total Protein 6.5 g/dL (6.5-8.0)
[2024-12-26] MEDS: Heparin Sodium,Porcine 5,000 UNIT/ML VIAL 5000 UNIT SUBCUT ×3 (07:37→23:10)
[2024-12-26] MEDS: Buprenorphine/Naloxone 12/3 mg FILM 1 FILM SUBLINGUAL (08:24)
--- NOTE | 2024-12-26 08:49 | P.CDIM_ITS ---
PROVIDER RESPONSE TEXT: To clarify, the appropriate diagnosis supported by the clinical indicators: Localized infection only, without systemic illness: aspiration pneumonitis QUERY TEXT: PHYSICIAN'S DOCUMENTATION REQUEST Date of Query: 12/26/2024 08:35 AM EDT Patient Name: Earl Rincon Admit Date: 12/24/2024 Dear Devan Allen MD, A review of the medical record indicates additional documentation may be needed. Please review below and update the documentation accordingly. Clinical Indicators: admitted with shortness of breath likely developing right-sided aspiration pneumonia versus pneumonitis WBC 18.8 lactic acid 2.2 pulse 170 respiratory rate 24 IV Piperacillin/Tazobactam Please clarify which, if any, of the following is the most likely etiology of the above symptoms and treatment rendered: Sepsis, present on admission Localized infection only, without systemic illness Indicate the site/source, such as UTI, pneumonia, etc. Other (explain) Clinically unable to determine (explain) Thank you, Ruby Mane RN Use of terms such as suspected, likely, concern for, or probable (associated with a specific diagnosi s that is being evaluated, monitored, or treated as if it exists) are acceptable and can be coded in the inpatient se tting, when documented at the time of discharge. Please use your independent medical judgment in providing your response. THIS QUERY IS PART OF THE PERMANENT MEDICAL RECORD
--- NOTE | 2024-12-26 09:20 | P.CDIM_ITS ---
PROVIDER RESPONSE TEXT: To clarify, the appropriate diagnosis supported by the clinical indicators: CKD, stage 3b QUERY TEXT: PHYSICIAN'S DOCUMENTATION REQUEST Date of Query: 12/26/2024 08:46 AM EDT Patient Name: Earl Rincon Admit Date: 12/24/2024 Dear Devan Allen MD, A review of the medical record indicates additional documentation may be needed. Please review below and update the documentation accordingly. Clinical Indicators: PMH: CKD BUN 46 creatinine 3.24 eGFR 19 per Critical care progress note 12/25/24: Acute on chronic renal failure. Non oliguric Please clarify which of the following accurately represents the patient's renal status: CKD, stage 1 CKD, stage 2 CKD, stage 3a CKD, stage 3b CKD, stage 4 Other (explain) Clinically unable to determine (explain) Thank you, Ruby Mane RN Use of terms such as suspected, likely, concern for, or probable (associated with a specific diagnosi s that is being evaluated, monitored, or treated as if it exists) are acceptable and can be coded in the inpatient se tting, when documented at the time of discharge. Please use your independent medical judgment in providing your response. THIS QUERY IS PART OF THE PERMANENT MEDICAL RECORD
--- NOTE | 2024-12-26 10:02 | PM.CCPN ---
Subjective Subjective Date of Service: 12/26/24 Interval History: 64-year-old gentleman with underlying HIV on HAART, hepatitis-C, COPD with prior admission for ileus complicated by aspiration pneumonia with inability wean ventilatory support requiring tracheostomy, reversible paroxysmally 4 months prior presented on 12/24/2024 via EMS complain of acute dyspnea and hypoxia requiring intubation. Initial workup in emergency room significant for metabolic acidosis with likely developing right-sided aspiration pneumonia versus pneumonitis. Patient started on broad-spectrum antibiotics admitted to the intensive care unit. Extubated 12/25/2024. No events overnight. Critical Care Time (minutes): 0 Physical Exam Vital Signs: Vital Signs: Last Vital Signs Temp 97.0 F 12/26/24 08:00 Pulse 77 12/26/24 08:00 Resp 20 12/26/24 08:00 BP 123/82 12/26/24 08:00 Pulse Ox 95 12/26/24 08:00 O2 Del Method Nasal Cannula 12/26/24 08:00 O2 Flow Rate 2 12/26/24 08:00 FiO2 30 12/25/24 12:06 BMI result Body Mass Index 22.9 Const: General: no acute distress, alert and awake Eyes: Sclerae: sclerae normal EOM: EOMs intact bilaterally Neck: Neck: Yes no lymphadenopathy, Yes trachea midline and Yes supple Resp: Effort & Inspection: normal respiratory effort and no respiratory distress Auscultation: clear to auscultation bilaterally Cardio: Rate: regular rate Rhythm: regular rhythm Heart sounds: no gallops, no murmurs and no rubs GI: Palpation (GI): Soft to palpation and Other GI palpation findings present ( Nontender) Auscultation: normal bowel sounds Extrem: General: Yes no pedal edema, No clubbing and No cyanosis Objective Data Labs 12/26/24 05:18 12/26/24 05:18 Labs: Laboratory Results - last 24 hr 12/25/24 12/25/24 12/25/24 10:22 11:18 17:43 WBC RBC Hgb Hct MCV MCH MCHC RDW Plt Count MPV Immature Gran % (Auto) Neut % (Auto) Lymph % (Auto) [place] % (Auto) Eos % (Auto) Baso % (Auto) Lymph # (Auto) [place] # (Auto) Eos # (Auto) Baso # (Auto) Abs Immat Gran (auto) Absolute Neuts (auto) Absolute Nucleated RBC Nucleated RBC % (auto) VBG pH VBG pCO2 VBG pO2 VBG HCO3 VBG O2 Saturation VBG Base Excess Sodium Potassium Chloride Carbon Dioxide Anion Gap BUN Creatinine Estim Creat Clear Calc Estimated GFR POC Glucose 180 H 104 Random Glucose Calcium Phosphorus Magnesium Total Bilirubin AST ALT Alkaline Phosphatase Total Protein Albumin Random Vancomycin 16.8 12/26/24 12/26/24 12/26/24 00:14 05:18 05:22 WBC 9.1 RBC 4.18 L Hgb 9.1 L Hct 28.5 L MCV 68.2 L MCH 21.8 L MCHC 31.9 RDW 13.9 Plt Count 175 D MPV 10.1 Immature Gran % (Auto) 0.4 Neut % (Auto) 78.2 H Lymph % (Auto) 14.8 L [place] % (Auto) 6.1 Eos % (Auto) 0.4 Baso % (Auto) 0.1 Lymph # (Auto) 1.3 [place] # (Auto) 0.6 Eos # (Auto) 0.0 Baso # (Auto) 0.0 Abs Immat Gran (auto) 0.04 H Absolute Neuts (auto) 7.1 Absolute Nucleated RBC 0.000 Nucleated RBC % (auto) 0.0 VBG pH 7.50 H VBG pCO2 36 VBG pO2 73 VBG HCO3 28 H VBG O2 Saturation 95.0 VBG Base Excess 5.3 Sodium 144 Potassium 3.9 Chloride 107 Carbon Dioxide 26 Anion Gap 15 BUN 48 H Creatinine 2.79 H Estim Creat Clear Calc 26.3 Estimated GFR 23 POC Glucose 112 Random Glucose 112 Calcium 8.3 L Phosphorus 3.8 Magnesium 2.4 Total Bilirubin 0.5 AST 331 H ALT 492 H Alkaline Phosphatase 153 H Total Protein 6.5 Albumin 3.1 L Random Vancomycin Microbiology Microbiology Results: Microbiology 12/24/24 04:05 Blood - Venous Blood Culture - Preliminary No growth after 48 hours. 12/24/24 03:52 Blood - Venous Blood Culture - Preliminary No growth after 48 hours. Progress Note: A&P Assessment and plan (1) Opioid use disorder: Status: Acute (2) Hepatitis C: Status: Acute (3) HIV (human immunodeficiency virus infection): Status: Acute (4) Acute hypoxic respiratory failure: Status: Acute (5) COPD (chronic obstructive pulmonary disease): Status: Acute Plan Assessment: 64-year-old gentleman with underlying hep C, HIV on HAART, prior history ventilator dependence requiring tracheostomy, thereafter reduced, now admitted with acute hypoxic respiratory failure and combined metabolic/respiratory acidosis requiring ventilatory and pressor support, likely secondary to underlying pneumonia. Plan: Neuro: No acute issues. Cardiac: 2D echo is pending. Pulmonary: Acute respiratory failure with hypoxia likely secondary to pulmonary aspiration, resolved, extubated 12/25/2024. Renal: Acute on chronic renal failure. Non oliguric. Continue to monitor renal indices and urine output. Endo: No acute issues. GI: Transaminitis, likely related to initial ischemia with aspiration, improving. ID: Aspiration pneumonitis. Cultures are pending. Continue empiric antibiotics. Underlying hep C and HIV. Heme/Onc: No acute issues. Psych: No acute issues. Miscellaneous: No acute issues. Prophylaxis: Heparin Diet: Pending swallow evaluation Quality Stroke Does the patient have a stroke diagnosis?: No VTE Prior VTE?: No VTE Risk Level:: Medical - moderate - high VTE Device Contraindication: Treatment Not Indicated VTE Drug Contraindication: N/A - Med Ordered
[2024-12-26 10:39] LABS: Vancomycin Random 15.4 mcg/mL (15-20)
--- NOTE | 2024-12-26 10:58 | MHC.SLORD ---
Addendum entered and electronically signed by LAURI Lester 12/26/24 14:49: Pt seen by ANATOMY AND PHYSIOLOGY INSTRUCTOR around 12pm for clinical swallow evaluation at bedside. Normal oral motor exam aside from lingual tremor which pt reported as typical. Pt tolerated thin liquids and regular solids. Pt may benefit from instrumental evaluation of swallow given hx of intubation, trach, and hx of aspiration pneumonia. Recommend UPGRADE to REGULAR solids and THIN liquids. Pills WHOLE in LIQUID. Recommend f/u with ANATOMY AND PHYSIOLOGY INSTRUCTOR. Original Note: Speech Language Pathology Order Status: Pt to be seen for clinical swallow evaluation by ANATOMY AND PHYSIOLOGY INSTRUCTOR 24+ hours s/p extubation; approximately 12pm today 12/26. Pt informed by ANATOMY AND PHYSIOLOGY INSTRUCTOR this morning; was not happy but was agreeable.
[2024-12-26] MEDS: LAMIVUDINE PO (11:07)
[2024-12-26] MEDS: Dolutegravir Sodium 50 MG TABLET PO (11:07)
--- NOTE | 2024-12-26 11:41 | P.EN_ITS ---
Event Note Date of Service: 12/26/24 Event Note: 64-year-old man admitted to ICU for hypoxia likely secondary to aspiration pneumonia. Discussed with ICU attending. Transferred to [facility]. Aspiration pneumonia. Intubated on admission. Continue Zosyn Hypotension. Resolved Ischemic hepatitis. Likely secondary to hypotension Substance abuse. Continue Suboxone HIV. Continue Tivicay and Epivir DVT prophylaxis with heparin Time Spent With Patient Time: Total time managing care of this patient today ____ minutes.
--- NOTE | 2024-12-26 15:07 | P.CDIM_ITS ---
PROVIDER RESPONSE TEXT: To clarify, the appropriate diagnosis supported by the clinical indicators: Acute QUERY TEXT: PHYSICIAN'S DOCUMENTATION REQUEST Date of Query: 12/26/2024 02:14 PM EDT Patient Name: Earl Rincon Admit Date: 12/24/2024 Dear Devan Allen MD, A review of the medical record indicates additional documentation may be needed. Please review below and update the documentation accordingly. Clinical Indicators: VBG pH 7.57 pulse and respiratory rate elevated patient with metabolic acidosis Clarify which of the following accurately represents the acuity of the metabolic acidosis . Possible options might include: Acute Acute on chronic Compensated Chronic stable condition Remission Other (explain) Clinically unable to determine (explain) Thank you, Ruby Mane RN Use of terms such as suspected, likely, concern for, or probable (associated with a specific diagnosi s that is being evaluated, monitored, or treated as if it exists) are acceptable and can be coded in the inpatient se tting, when documented at the time of discharge. Please use your independent medical judgment in providing your response. THIS QUERY IS PART OF THE PERMANENT MEDICAL RECORD
[2024-12-26] MEDS: Mirtazapine 7.5 MG TABLET PO (20:57)
[2024-12-26] MEDS: Benzonatate 100 MG CAPSULE 200 MG PO (20:57)
[2024-12-27] VITALS (8 sets, daily range): BP systolic 134–163; BP diastolic 81–113; PULSE 68–101; RESP 12–20; TEMP 36.3–36.9; O2SAT 93–97
[2024-12-27] MEDS: Piperacillin Sodium/Tazobactam 3.375 GM in 0.9 % Sodium Chloride 50 ML IV ×4 (05:07→23:22)
[2024-12-27 07:16] LABS: Creatinine Clr Calc Pharmacy 27.9; Estimated Glomerular Filt Rate 25
[2024-12-27] MEDS: Dolutegravir Sodium 50 MG TABLET PO (09:30)
[2024-12-27] MEDS: Buprenorphine/Naloxone 12/3 mg FILM 1 FILM SUBLINGUAL (09:30)
[2024-12-27] MEDS: LAMIVUDINE PO (09:30)
[2024-12-27] MEDS: Heparin Sodium,Porcine 5,000 UNIT/ML VIAL 5000 UNIT SUBCUT ×3 (09:30→23:22)
[2024-12-27] MEDS: Albuterol Sulfate (0.083%) 2.5 MG/3 ML VIAL.NEB INHALE ×2 (09:50→15:18)
--- NOTE | 2024-12-27 10:52 | MHC.CM.PN ---
EMR reviewed and per MD rounds, pt is not medically cleared for discharge today due to management of pneumonia, anticipating her will be discharged home tomorrow.
--- NOTE | 2024-12-27 11:13 | MHC.CLN ---
F/U PT EXTUBATED AND TRANSFERRED TO MEDICAL FLOOR DIET ADVACNED TO REGULAR PER FORM LAYER PO 75% X1 MEAL RD TO FOLLOW WEEKLY
--- NOTE | 2024-12-27 15:03 | HO.PM.IMPN ---
Subjective Subjective Date of Service: 12/27/24 Interval History: Follow up respiratory failure, aspiration pneumonia ICU transfer Feeling better today Review of Systems Review of Systems: Yes all other systems are reviewed and are negative Physical Exam Vital Signs: Vital Signs: Last Vital Signs Temp 97.3 F 12/27/24 12:00 Pulse 87 12/27/24 12:00 Resp 18 12/27/24 12:00 BP 136/85 12/27/24 12:00 Pulse Ox 95 12/27/24 12:00 O2 Del Method Nasal Cannula 12/27/24 12:00 O2 Flow Rate 2 12/27/24 12:00 FiO2 30 12/25/24 12:06 BMI result Body Mass Index 22.9 Appearing in no acute distress lung sounds are clear to auscultation heart regular rate rhythm, clear S1, S2 positive bowel sounds, abdomen is soft, nontender neuro patient is alert x3, no focal deficits Objective Data Active Medications Albuterol Sulfate (Albuterol Sulfate (0.083%) 2.5 Mg/3 Ml Vial.Neb) 2.5 mg INHALE RQ4H WHILE AWAKE [facility] Last Admin: 12/27/24 09:50 Dose: 2.5 mg Documented By: HELEN Benzonatate (Benzonatate 100 Mg Capsule) 200 mg PO TID PRN PRN Reason: Cough Last Admin: 12/26/24 20:57 Dose: 200 mg Documented By: JAMAICA Buprenorphine/Naloxone (Buprenorphine/Naloxone 12/3 Mg Film) 1 film SUBLINGUAL DAILY [facility] Last Admin: 12/27/24 09:30 Dose: 1 film Documented By: NARCISA Dolutegravir Sodium (Dolutegravir Sodium 50 Mg Tablet) 50 mg PO DAILY [facility] Last Admin: 12/27/24 09:30 Dose: 50 mg Documented By: NARCISA Heparin Sodium (Porcine) (Heparin Sodium,Porcine 5,000 Unit/Ml Vial) 5,000 unit SUBCUT Q8H [facility] Last Admin: 12/27/24 09:30 Dose: 5,000 unit Documented By: NARCISA Piperacillin Sod/Tazobactam (Sod 3.375 gm/ Sodium Chloride) 50 mls @ 100 mls/hr IV Q6H [facility] Last Infusion: 12/27/24 10:57 Dose: Infused Documented By: NARCISA Lamivudine (Lamivudine 100 Mg/10 Ml Solution) 100 mg PO DAILY [facility] Last Admin: 12/27/24 09:30 Dose: 100 mg Documented By: RADHAAC Mirtazapine (Mirtazapine 7.5 Mg Tablet) 7.5 mg PO BEDTIME [facility] Last Admin: 12/26/24 20:57 Dose: 7.5 mg Documented By: J[place]ICA Labs 12/26/24 05:18 12/27/24 06:21 Labs: Laboratory Results - last 24 hr 12/27/24 06:21 Hold Purple Top SEE NOTE Estim Creat Clear Calc 27.9 Estimated GFR 25 Assessment and Plan (1) Transaminitis: Status: Acute Plan 64-year-old man admitted to ICU for hypoxia likely secondary to aspiration pneumonia requiring ventilator support and pressors. Discussed with ICU attending. Transferred to [facility] 12/26/24 Aspiration pneumonia. Intubated on admission in ICU, hx of multiple intubations Continue Zosyn on home oxygen 2-3 liters microcytic anemia no blood loss check iron studies CKD4 baseline Hypotension. pressors in the ICU Resolved Ischemic hepatitis. Likely secondary to hypotension trending down Substance abuse. Continue Suboxone HIV. Continue Tivicay and Epivir DVT prophylaxis with heparin Full code Quality Stroke Does the patient have a stroke diagnosis?: No VTE Prior VTE?: No VTE Risk Level:: Medical - moderate - high VTE Device Contraindication: Treatment Not Indicated VTE Drug Contraindication: N/A - Med Ordered
--- NOTE | 2024-12-27 16:08 | MHC.SL.SWA ---
Speech Pathologist Impression: Adequate oropharyngeal swallow Risk of Aspiration Due to: Hx of trachs/intubations Hx of aspiration PNAs Hx of respiratory illness Dysphasia Diet Status: Liquid Consistency and Strategies for Safe Swallow: Liquid Intake Recommendation: Thin Liquid Intake Strategies: Solid Food Consistency: Dietary Recommendations: Regular Additional Modifications to Solid Foods: Oral Medication Intake: Whole with Liquid Please contact the pharmacy regarding appropriate crushable or liquid drug formulations that are available whenever modified delivery is recommended. Compensatory Strategies and Precautions to be Taken for Safe Swallow: Sitting Upright (90 deg) Small Bites and Sips Alternate Liquids/Solids Rate of Ingestion Change Supervision While Eating and Drinking for Safe Swallow: None Needed Foods to Avoid: Swallowing Recommended Treatments: Compens. Strategy Educat. Recommendation for Speech: Inpatient Speech Therapy Modified Barium Swallow Study - Inpatient Modified Barium Swallow Study - Outpatient Comment: 12/27: Pt seen for dysphagia treatment. POC reviewed. Pt in agreement with recc for OP MBSS upon d/c. Pt tolerating diet as ordered. No further ADVENTURE CHALLENGE INSTRUCTOR intervention indicated inpatient, pt verbalized understanding of potential ADVENTURE CHALLENGE INSTRUCTOR tx s/p MBSS if indicated. Frequency/Duration: M-F Date Range for Service Req: Timeline to reassess: Tire Classifier Clinican/Clinical Fellow: No Supervisory Statement: I have reviewed and agree with the student/clinical fellow's documentation: N/A Speech Language Pathologist: Renetta Shelley M.S., CCC-ADVENTURE CHALLENGE INSTRUCTOR
--- NOTE | 2024-12-27 16:42 | P.CDIM_ITS ---
PROVIDER RESPONSE TEXT: To clarify, the appropriate diagnosis supported by the clinical indicators: Other (explain): ischemic liver QUERY TEXT: PHYSICIAN'S DOCUMENTATION REQUEST Date of Query: 12/27/2024 09:27 AM EDT Patient Name: Earl Rincon Admit Date: 12/24/2024 Dear Shyla Brooks OCTAVE BOARD RACKER, A review of the medical record indicates additional documentation may be needed. Please review below and update the documentation accordingly. Clinical Indicators: per Hospitalist Progress note 12/26/24: Ischemic hepatitis. Likely secondary to hypotension The following diagnoses or signs and symptoms were noted in the patient record: AST 331 ALT 492 Alkaline Phosphatase 153 Based on the above, could you clarify the appropriate diagnosis, if significant, that supports the ab ove abnormalities and additional evaluation, monitoring, and/or treatment rendered: Shock Liver Other (explain) Clinically unable to determine (explain) Thank you, Ruby Mane RN Use of terms such as suspected, likely, concern for, or probable (associated with a specific diagnosi s that is being evaluated, monitored, or treated as if it exists) are acceptable and can be coded in the inpatient se tting, when documented at the time of discharge. Please use your independent medical judgment in providing your response. THIS QUERY IS PART OF THE PERMANENT MEDICAL RECORD
[2024-12-27] MEDS: Mirtazapine 7.5 MG TABLET PO (21:04)
[2024-12-27] MEDS: Benzonatate 100 MG CAPSULE 200 MG PO (23:22)
[2024-12-28] MEDS: Acetaminophen 325 MG TABLET 650 MG PO (00:20)
[2024-12-28 02:55] VITALS: BP 144/94; PULSE 88; RESP 18; TEMP 36; O2SAT 96
[2024-12-28] MEDS: Piperacillin Sodium/Tazobactam 3.375 GM in 0.9 % Sodium Chloride 50 ML IV ×3 (05:03→16:11)
[2024-12-28] MEDS: Heparin Sodium,Porcine 5,000 UNIT/ML VIAL 5000 UNIT SUBCUT ×2 (07:33→16:12)
[2024-12-28 07:34] VITALS: BP 122/70; PULSE 77; RESP 20; TEMP 36.5; O2SAT 96
[2024-12-28] MEDS: Benzonatate 100 MG CAPSULE 200 MG PO (07:53)
[2024-12-28] MEDS: Buprenorphine/Naloxone 12/3 mg FILM 1 FILM SUBLINGUAL (07:53)
[2024-12-28] MEDS: Dolutegravir Sodium 50 MG TABLET PO (07:53)
[2024-12-28] MEDS: LAMIVUDINE PO (07:53)
[2024-12-28 11:27] LABS: Alanine Aminotransferase 237 U/L (0-40); Albumin Level 3.3 g/dL (3.5-5.0); Aspartate Amino Transferase 79 U/L (5-37); Bilirubin Direct 0.1 mg/dL (0.0-0.5); Bilirubin Total 0.3 mg/dL (0.0-1.0); Creatinine Clr Calc Pharmacy 26.9; Estimated Glomerular Filt Rate 24; Iron 126 mcg/dL (45-160); Percent Iron Saturation 72 % (15-50); Total Iron Binding Capacity 174 mcg/dL (228-428); Total Protein 7.2 g/dL (6.5-8.0); Unsaturated Iron Binding 48 ug/dL
[2024-12-28] MEDS: Albuterol Sulfate (0.083%) 2.5 MG/3 ML VIAL.NEB INHALE (11:34)
[2024-12-28 11:35] VITALS: PULSE 101; RESP 20; O2SAT 93
[2024-12-28 11:46] VITALS: BP 118/88; PULSE 100; RESP 20; TEMP 36.7; O2SAT 92
[2024-12-28 12:05] LABS: Alkaline Phosphatase 154 U/L (39-117)
[2024-12-28 12:29] LABS: CDiff Gene PCR POSITIVE (Negative)
[2024-12-28 13:04] LABS: CDIFF Internal ctrl Dots and bkg OK (V); CDiff Toxin Negative (Negative)
[2024-12-28 14:08] LABS: Adenovirus F 40/41 Not Detected (Not Detect.); Astrovirus Not Detected (Not Detect.); Campylobacter Not Detected (Not Detect.); Cryptosporidium Not Detected (Not Detect.); Cyclospora cayetanensis Not Detected (Not Detect.); E. coli EAEC Not Detected (Not Detect.); E. coli EPEC Not Detected (Not Detect.); E. coli ETEC Not Detected (Not Detect.); E. coli STEC Not Detected (Not Detect.); Entamoeba histolytica Not Detected (Not Detect.); Giardia lamblia Not Detected (Not Detect.); Norovirus GI/GII Not Detected (Not Detect.); Plesiomonas shigelloides Not Detected (Not Detect.); Rotavirus A Not Detected (Not Detect.); Salmonella Not Detected (Not Detect.); Sapovirus Not Detected (Not Detect.); Shigella sp./EIEC Not Detected (Not Detect.); Vibrio Not Detected (Not Detect.); Vibrio Cholerae Not Detected (Not Detect.); Yersinia enterocolitica Not Detected (Not Detect.)
--- NOTE | 2024-12-28 14:22 | P.DS_ITS ---
DS: Providers Provider Date of Service: 12/28/24 Date of admission: 12/24/24 07:30 Date of discharge: 12/28/24 Primary care physician: Nataliia Arroyo MD Consults: 12/25/24 15:27 Consult to Psychiatry Routine Consulting Provider: [facility] [place] [facility] Reason for consultation: depression Attending physician on discharge: Feliberto Cooper Discharging clinician: Kylah Jasso DS: Diagnosis Discharge Diagnosis (1) Transaminitis: Status: Acute DS: Summary Hospital Course Hospital Course: From H&P on the day of admission 64-year-old gentleman with underlying HIV on HAART, hepatitis-C, COPD with prior admission for ileus complicated by aspiration pneumonia with inability wean ventilatory support requiring tracheostomy, reversible paroxysmally 4 months prior presented on 12/24/2024 via EMS complain of acute dyspnea and hypoxia requiring intubation. Initial workup in emergency room significant for metabolic acidosis with likely developing right-sided pneumonia. Patient started on broad-spectrum antibiotics admitted to the intensive care unit. Aspiration pneumonia. Intubated on admission in ICU, hx of multiple intubations. Started on Zosyn December 24. Extubated December 24, downgraded to the medical floor on December 26. on home oxygen 2-3 liters, currently on room air and able to ambulate without shortness of breath. Leukocytosis resolved. completed course of antibiotics during hospitalization. blood cultures have remained negative to date. Patient was seen by speech and was deemed safe for regular diet with thin liquids, recommend outpatient modified barium swallow. Diarrhea could be due to antibiotics. GI panel negative, C diff PCR positive, toxin a and B negative. will treat with 10 day course of oral vancomycin given diarrhea. no abdominal pain, fever. leukocytosis resolved. microcytic anemia no blood loss. iron 126 likely chronic inflammation CKD4 renal function appears to be at baseline. Recommend outpatient follow-up with Nephrology Hypotension. s/p pressors in the ICU. bp stable Ischemic hepatitis. Likely secondary to hypotension. LFTs trending down. outpatient follow up h/o Substance abuse. Continued on Suboxone HIV. Continue baseline medication. Outpatient follow-up with prescriber Time Attestation Discharge Coordination Time (in mins): 35 Quality: Safe Use of Opioids Does Pt have an Active Cancer Diagnosis on the Problem List?: No Quality: Stroke Does the patient have a stroke diagnosis?: No Physical Exam Vital Signs: Vital Signs: Last Vital Signs Temp 98.0 F 12/28/24 11:46 Pulse 100 12/28/24 11:46 Resp 20 12/28/24 11:46 BP 118/88 12/28/24 11:46 Pulse Ox 92 12/28/24 11:46 O2 Del Method Room Air 12/28/24 11:46 O2 Flow Rate 2 12/28/24 07:34 FiO2 30 12/25/24 12:06 BMI result Body Mass Index 22.9 Const: General: cooperative, comfortable, no acute distress, alert and awake Nutritional Appearance: average body habitus Orientation/consciousness: patient oriented x3 Resp: Effort & Inspection: normal respiratory effort, able to speak in complete sentences, no respiratory distress and no use of accessory muscles Cardio: Rate: regular rate GI: Palpation (GI): Soft to palpation Neuro: General: patient oriented x3 and moves all extremities DS: Data Data Completed and Pending Completed studies during hospitalization [Text1]: Procedures Assistance with Respiratory Ventilation, Less than 24 Consecutive Hours, Continuous Positive Airway Pressure (03/28/24) Bypass Trachea to Cutaneous with Tracheostomy Device, Open Approach (10/02/23) Insertion of Endotracheal Airway into Trachea, Via Natural or Artificial Opening (10/02/23) Insertion of Feeding Device into Stomach, Percutaneous Approach (10/02/23) Insertion of Infusion Device into Bone Marrow, Percutaneous Approach (10/02/23) Insertion of Infusion Device into Superior Vena Cava, Percutaneous Approach (10/02/23) Introduction of Vasopressor into Central Vein, Percutaneous Approach (10/02/23) Respiratory Ventilation, Greater than 96 Consecutive Hours (10/02/23) Transfusion of Nonautologous Red Blood Cells into Peripheral Vein, Percutaneous Approach (10/02/23) Ultrasonography of Superior Vena Cava, Guidance (10/02/23) Labs on day of discharge: Laboratory Results - last 24 hr 12/28/24 12/28/24 12/28/24 10:29 10:29 10:29 Creatinine 2.72 H Estim Creat Clear Calc 26.9 Estimated GFR 24 Iron 126 TIBC 174 L % Saturation 72 H Unsat Iron Binding 48 Total Bilirubin 0.3 Cancelled Direct Bilirubin 0.1 Cancelled AST 79 H ALT Alkaline Phosphatase Total Protein Albumin Stl C. cayetanensis PCR Stool Rotavirus A PCR Stl Adenov F 40/ PCR Stool Astrovirus (PCR) Stool Campylobacter PCR Stool Cryptosporidium PCR Stl Sh Tox Pr E STEC PCR Stool E coli O157 PCR Stl Enterotoxigenic E PCR Stool EPEC (PCR) Stool EAEC (PCR) Stl E. histolytica PCR Stool Giardia Lamblia PCR Stl P. shigelloides PCR Stool Salmonella PCR Stool Sapovirus (PCR) Stl Shigella/EIEC PCR St Y.enterocolitica PCR Stool Vibrio (PCR) Stl Vibrio cholerae PCR Stl Norovirus GI/GII PCR C. difficile Tox B Gene C. difficile Toxin A&B C. difficile Interpret 12/28/24 12/28/24 12/28/24 10:29 10:29 10:29 Creatinine Estim Creat Clear Calc Estimated GFR Iron TIBC % Saturation Unsat Iron Binding Total Bilirubin Direct Bilirubin AST Cancelled ALT 237 H Cancelled Alkaline Phosphatase 154 H Cancelled Total Protein 7.2 Albumin Stl C. cayetanensis PCR Stool Rotavirus A PCR Stl Adenov F PCR Stool Astrovirus (PCR) Stool Campylobacter PCR Stool Cryptosporidium PCR Stl Sh Tox Pr E STEC PCR Stool E coli O157 PCR Stl Enterotoxigenic E PCR Stool EPEC (PCR) Stool EAEC (PCR) Stl E. histolytica PCR Stool Giardia Lamblia PCR Stl P. shigelloides PCR Stool Salmonella PCR Stool Sapovirus (PCR) Stl Shigella/EIEC PCR St Y.enterocolitica PCR Stool Vibrio (PCR) Stl Vibrio cholerae PCR Stl Norovirus GI/GII PCR C. difficile Tox B Gene C. difficile Toxin A&B C. difficile Interpret 12/28/24 12/28/24 12/28/24 10:29 10:29 11:17 Creatinine Estim Creat Clear Calc Estimated GFR Iron TIBC % Saturation Unsat Iron Binding Total Bilirubin Direct Bilirubin AST ALT Alkaline Phosphatase Total Protein Cancelled Albumin 3.3 L Cancelled Stl C. cayetanensis PCR Not Detected Stool Rotavirus A PCR Not Detected Stl Adenov F 40 PCR Not Detected Stool Astrovirus (PCR) Not Detected Stool Campylobacter PCR Not Detected Stool Cryptosporidium PCR Not Detected Stl Sh Tox Pr E STEC PCR Not Detected Stool E coli O157 PCR Not applicable Stl Enterotoxigenic E PCR Not Detected Stool EPEC (PCR) Not Detected Stool EAEC (PCR) Not Detected Stl E. histolytica PCR Not Detected Stool Giardia Lamblia PCR Not Detected Stl P. shigelloides PCR Not Detected Stool Salmonella PCR Not Detected Stool Sapovirus (PCR) Not Detected Stl Shigella/EIEC PCR Not Detected St Y.enterocolitica PCR Not Detected Stool Vibrio (PCR) Not Detected Stl Vibrio cholerae PCR Not Detected Stl Norovirus GI/GII PCR Not Detected C. difficile Tox B Gene POSITIVE A* C. difficile Toxin A&B Negative C. difficile Interpret SEE NOTE Preliminary micro results at discharge 12/24/24 04:05 Blood Culture - Preliminary Blood - Venous No growth after 48 hours. 12/24/24 03:52 Blood Culture - Preliminary Blood - Venous No growth after 48 hours. Discharge Plan Discharge Anticipated Discharge Date/Time: 12/28/24 14:37 Patient Disposition: Home Health Service Discharge Diagnosis: aspiration pneumonia [facility] [Other] - 1 Day (RESUMPTION OF ASSISTANT CENTER MANAGER AND NURSING/OT/PT WILL FOLLOW UP W/YOU FRIDAY 12/29.) Nataliia Arroyo MD [Primary Care Provider] - 1 Week Discharge Medications: New vancomycin 125 mg capsule 125 mg PO QID 10 Days Qty: 40 0RF Continued budesonide-formoterol [Symbicort] 160-4.5 mcg/actuation HFA aerosol inhaler 2 puff inhalation BID 30 Days Qty: 10.2 11RF lamivudine 100 mg tablet 100 mg PO DAILY Tivicay 50 mg tablet 50 mg PO DAILY albuterol sulfate 90 mcg/actuation Hfa Aerosol Inhaler 2 puff INHALATION Q4H PRN (Reason: Wheezing) aspirin 81 mg Tablet,Delayed Release (Dr/Ec) 81 mg PO DAILY ascorbic acid (vitamin C) [Vitamin C] 500 mg Tablet 500 mg PO DAILY pantoprazole 40 mg Tablet,Delayed Release (Dr/Ec) 40 mg PO DAILY@0630 mirtazapine 7.5 mg tablet 7.5 mg PO BEDTIME buprenorphine-naloxone [Suboxone] 12-3 mg film 1 film sublingual DAILY (DME) Oxygen Home Use Kit See Rx Instructions .ROUTE Rx Instructions: As directed Discharge Orders: Discharge Order (Routine); Ordered 12/28/24 Ordered By: Kylah Jasso Activity on Discharge: As tolerated Stand Alone Forms: Patient Portal Discharge page Print Language: Bengali Care Plan Goals: See below Health Concerns: Acute respiratory failure due to aspiration pneumonia Elevated LFTs Diarrhea ckd Plan of Treatment: Colonized with C diff, complete 10 day course of oral vancomycin due to active diarrhea Call to schedule follow-up appointment with PCP Completed course of antibiotics during hospital stay Outpatient follow-up imaging to ensure resolution of infection consider outpatient MBSS Assessment: See discharge summary
--- NOTE | 2024-12-28 14:52 | MHC.SLORD ---
Speech Language Pathology Order Status: Per COMMISSARY WORKER note of 12/27/24, recommended discharge from Speech Service, patient on least restrictive diet, tolerating well. This occupational therapy specialist completed discharge in expanse on 12/28/24.
--- NOTE | 2024-12-28 15:10 | MHC.CM.PN ---
IMM 12/28/24, PT MEDICALLY CLEARED FOR [facility] [place] [facility] PROVID[facility] SN/OT/PT W/SOC TOMORROW 12/29TAD FOR TRANSPORT AT 5PM
[2024-12-28 16:00] VITALS: BP 131/89; PULSE 99; RESP 17; TEMP 36.5; O2SAT 93
== END 2024-12-28 18:18 | disposition home health service (06) | DRG 208 ==
LOC: HO.ED 07:12 → HO.EDOVER 07:31 → HO.ICU 09:26 → HO.IMC 12-26 08:56
PROVIDERS: Nurse Practitioner Acute Care; Nurse Practitioner Family; Student in an Organized Health Care Education/Training Program; Admitting Provider Internal Medicine Pulmonary Disease; Emergency Provider Emergency Medicine; PCP Internal Medicine; Visit Provider Physician Assistant Medical
DX: J69.0 Pneumonitis due to inhalation of food and vomit (principal); J96.01 Acute respiratory failure with hypoxia; K72.00 Acute and subacute hepatic failure without coma; F11.20 Opioid dependence, uncomplicated; E87.21 Acute metabolic acidosis; N17.9 Acute kidney failure, unspecified; A04.72 Enterocolitis due to Clostridium difficile, not specified as recurrent; K52.1 Toxic gastroenteritis and colitis; T36.0X5A Adverse effect of penicillins, initial encounter; B19.20 Unspecified viral hepatitis C without hepatic coma; I95.9 Hypotension, unspecified; Z21 Asymptomatic human immunodeficiency virus [HIV] infection status; N18.32 Chronic kidney disease, stage 3b; Z20.822 Contact with and (suspected) exposure to COVID-19; Z79.82 Long term (current) use of aspirin; Z79.899 Other long term (current) drug therapy
CPT/HCPCS: 0241U; 36415; 36600; 71045; 80048; 80053; 80076; 80202; 80307; 82565; 82803; 82947; 83540; 83605; 83735; 83880; 84100; 84484; 85007; 85025; 85027; 87040; 87324; 87493; 87507; 92526; 92610; 93005; 94002; 94003; 94640; 99285; J0131; J0456; J0696; J1308; J1644; J1938; J2270; J2543; J2704; J2919; J3360; J3370; J3371; J3475; P9047

== ENCOUNTER → 2024-12-24 03:49 | Outpatient (BNV) | payer OTHER, SELFPAY | PROVIDERS: Emergency Provider Emergency Medicine; Visit Provider Radiology Diagnostic Radiology | DX: Z43.4 Encounter for attention to other artificial openings of digestive tract (principal); J44.9 Chronic obstructive pulmonary disease, unspecified; J90 Pleural effusion, not elsewhere classified | CPT/HCPCS: 71045 ==

== ENCOUNTER → 2024-12-24 03:49 | Outpatient (BNV) | payer OTHER, SELFPAY | PROVIDERS: Admitting Provider Internal Medicine Pulmonary Disease; Emergency Provider Emergency Medicine; Visit Provider Internal Medicine Cardiovascular Disease | DX: I25.2 Old myocardial infarction (principal); I47.10 Supraventricular tachycardia, unspecified | CPT/HCPCS: 93010 ==

== ENCOUNTER → 2024-12-24 07:30 | Outpatient (BNV) | payer MEDICARE, SELFPAY | PROVIDERS: Admitting Provider Internal Medicine Pulmonary Disease; Emergency Provider Emergency Medicine; Visit Provider Nurse Practitioner Acute Care | DX: R74.01 Elevation of levels of liver transaminase levels (principal) | CPT/HCPCS: 99232; 99239; 99499 ==

== ENCOUNTER → 2024-12-24 07:30 | Outpatient (BNV) | payer OTHER, SELFPAY | PROVIDERS: Admitting Provider Internal Medicine Pulmonary Disease; Emergency Provider Emergency Medicine; Visit Provider Internal Medicine Pulmonary Disease | DX: J44.9 Chronic obstructive pulmonary disease, unspecified (principal); J96.01 Acute respiratory failure with hypoxia; Z21 Asymptomatic human immunodeficiency virus [HIV] infection status; B19.20 Unspecified viral hepatitis C without hepatic coma; R74.01 Elevation of levels of liver transaminase levels | CPT/HCPCS: 99291; 99292 ==

== ENCOUNTER 2025-01-18 11:32 | Emergency (ER) | payer MEDICARE, MEDICAID, SELFPAY ==
--- NOTE | ~2025-01-18 | CT_ITS ---
EXAMINATION: CT CHEST WITHOUT CONTRAST CLINICAL INFORMATION: Concerning small pneumothorax, right lower hemithorax COMPARISON: September 12, 2024. Correlated to chest x-ray dated January 18, 2025. TECHNIQUE: Multidetector volumetric CT imaging of the chest was done. Axial MIP volume rendering provided. Sagittal and coronal reformatted images were obtained. This CT examination was performed using dose optimization techniques as appropriate, variously including the following: *Automated exposure control *Adjustment of mA and/or kV according to patient size (this includes techniques or standardized protocols for targeted exams where dose is matched to indication/reason for exam; i.e. extremities or head) *Use of iterative reconstruction technique DLP: 207 mGy centimeter. FINDINGS: ELECTRIC NEEDLE SPECIALIST: Blunting of the right costophrenic angle. Hyperinflated lungs. Upper extremities at the both sides of the head. LUNGS: Centrilobular and paraseptal emphysematous changes, bilaterally. Bilateral apical lung scarring. Linear attenuation abnormalities within irregular nodular components in the periphery of the lungs, the most conspicuous in the left upper lung lobe and right lower lung lobe with similar morphology pattern since prior exam. 3 mm calcified pulmonary nodule, left lower lung lobe. Intraluminal attenuation abnormalities in the dependent portion of the trachea and mainstem bronchi as well as the subsegmental pulmonary bronchi both lower extremities. MEDIASTINUM: No aneurysm, thoracic aorta. No gross lymphadenopathy in the mediastinum. No gross pericardial effusion. Small focal calcification in the LAD and the aortic arch as well as main branches. The heart is not enlarged. No pneumomediastinum. No hemomediastinum. No hemopericardium. CORONARY ARTERY CALCIFICATION: Small focal calcification. PLEURA: Small volume right-sided pleural effusion with peripheral increased density and punctate calcifications. AXILLA: No lymphadenopathy. UPPER ABDOMEN: Multifocal hypodensities in the kidneys. OSSEOUS STRUCTURES: No acute fracture or listhesis in the axial skeleton. Osteopenia versus osteoporosis. Bone marrow inhomogeneity. Sternum is intact. No acute rib fracture. CT/CT chest wo IV con IMPRESSION: No gross pneumothorax. Concerning aspiration pneumonia. Small volume right-sided pleural effusion. Consider calcium metabolic disorders. Fleischner guidelines were followed. Electronically signed by: Bobby Gifford MD 01/18/2025 04:03 PM EDT
--- NOTE | ~2025-01-18 | XR_ITS ---
EXAMINATION: XR CHEST CLINICAL INFORMATION: Shortness of breath, cough, R/O pneumonia COMPARISON: December 24, 2024. TECHNIQUE: Frontal view of the chest was obtained. FINDINGS: Pulmonary reticular nodular pattern. Confluent patchy opacity right mid hemithorax. Haziness in the right lower hemithorax. There is a questionable probable small volume right-sided pneumothorax in the right lower hemithorax with small to moderate volume right-sided pleural effusion. Cardiomediastinal silhouette size is unchanged. Degenerative changes in the right shoulder. XR/XR chest 1V IMPRESSION: Concerning small volume right-sided pneumothorax and pleural effusion. Acute on chronic airspace disease involving mostly the right lung. Electronically signed by: Bobby Gifford MD 01/18/2025 12:53 PM EDT
[2025-01-18 11:38] VITALS: BP 151/77; PULSE 78; RESP 20; TEMP 36.6; O2SAT 87; BMI 21.9
[2025-01-18 11:41] VITALS: BP 166/92; PULSE 76; O2SAT 93
--- NOTE | 2025-01-18 11:46 | PC.NURSE ---
patient states his shortness of breath is worse with exertion, begins to feel dizzy and increase in his work of breathing
--- NOTE | 2025-01-18 11:53 | ED_ITS ---
HPI - SOB/Dyspnea General Chief Complaint: Dyspnea Stated Complaint: DIFF BREATHING,LLL WHEEZE,NEB GIVEN PER EMS Time Seen by Provider: 01/18/25 11:42 Source: patient Mode of arrival: EMS Limitations: no limitations History of Present Illness ED Provider: Dr. Blade Lucero HPI Narrative: 64-year-old male with a history of HIV on HAART, opiate use disorder on Suboxone, hepatitis-C, COPD requiring intubation and tracheostomy in the past who presents to the emergency department for evaluation of shortness of breath which started suddenly this morning after waking up and having a coughing spell. The patient states that he is supposed to wear his oxygen 2-3 L continuously but he states that he only wears it intermittently. He states that he did put on his oxygen overnight and this morning he believes there may have been some fluid in the oxygen tubing that caused him to wake up coughing. He states that he woke up with a coughing spell. After that he felt very short of breath at rest and had significant dyspnea on exertion at 10-20 feet therefore he called 911. Paramedics report that he was not wearing his oxygen and the patient's O2 saturation on room air was 86%. Patient states that he was given an albuterol nebulizer en route but he believes that it was not working. The patient denied being ill over the last several days. He denied fever, chills, cough, chest pain. He states he has shortness of breath was at baseline until this morning. At the time my evaluation he has no complaints. Patient was recently hospitalized 12/26/2024 until 12/28/2024 for aspiration pneumonia with respiratory distress requiring intubation. Patient had diarrhea during his hospitalization and had a C diff PCR which was positive, but toxin A and B were negative . However, given his fever, diarrhea and leukocytosis, he was treated with a 10 day course of vancomycin orally. He was not discharged on oral antibiotics since he completed a course of IV antibiotics while he was hospitalized. Related Data Home Medications ?Medication ?Instructions ?Recorded ?Confirmed albuterol sulfate 90 mcg/actuation 2 puff inhalation Q4H PRN Wheezing 03/28/24 12/24/24 aerosol inhaler ascorbic acid (vitamin C) 500 mg 500 mg PO DAILY 03/28/24 12/24/24 tablet (Vitamin C) aspirin 81 mg tablet,delayed 81 mg PO DAILY 03/28/24 12/24/24 release dolutegravir 50 mg tablet (Tivicay) 50 mg PO DAILY 03/28/24 12/24/24 lamivudine 100 mg tablet 100 mg PO DAILY 03/28/24 12/24/24 pantoprazole 40 mg tablet,delayed 40 mg PO DAILY@0630 03/28/24 12/24/24 release Oxygen Home Use 06/05/24 buprenorphine 12 mg-naloxone 3 mg 1 film sublingual DAILY 12/24/24 12/24/24 sublingual film (Suboxone) mirtazapine 7.5 mg tablet 7.5 mg PO BEDTIME 12/24/24 12/24/24 Previous Rx's ?Medication ?Instructions ?Recorded budesonide-formoterol HFA 160 2 puff inhalation BID 30 days 05/04/24 mcg-4.5 mcg/actuation aerosol #10.2 grams inhaler (Symbicort) vancomycin 125 mg capsule 125 mg PO QID 10 days #40 caps 12/28/24 Allergies Allergy/AdvReac Type Severity Reaction Status Date / Time No Known Allergies Allergy Verified 01/18/25 11:42 Review of Systems 2 Review of Systems: Yes all other systems are reviewed and are negative [facility] Past Medical History [facility] Narrative: Social history: The patient continues to smoke 4 cigarettes per day in you smoked for over 40 years. He states he occasionally drinks beer. The patient is a former heroin user but states he is not use since 05/2022, he was on methadone and he is currently on Suboxone. Medical History HIV (human immunodeficiency virus infection) Anemia CKD (chronic kidney disease) Acute hypoxic respiratory failure Respiratory failure Tachycardia Myocardial injury Pneumonia TERRY (obstructive sleep apnea) Pulmonary nodules Hepatitis C HIV disease COPD (chronic obstructive pulmonary disease) Social History Social History Household Members: Unknown / Unable to assess Housing: Unknown / Unable to assess Do you presently have visiting nurse or other home services: No Alcohol intake: former Comment: Sitter at bedside Patient Tobacco Use Status: Tobacco use Unknown Tobacco use type: Cigarette Cigarette Packs Per Day: 1 Cigarettes Per Day: 4 Years Smoked: 30 Years Substance Use Type: Marijuana Advance Directives: No Advance Directives Information Provided: Yes service: No Physical Exam 2 Vital Signs: Vital Signs: Last Vital Signs Temp 97.7 F 01/18/25 18:03 Pulse 56 01/18/25 18:03 Resp 12 01/18/25 18:03 BP 95/48 L 01/18/25 18:03 Pulse Ox 95 01/18/25 18:03 O2 Del Method Nasal Cannula 01/18/25 18:03 O2 Flow Rate 2 01/18/25 18:03 BMI result Body Mass Index 21.9 Vital signs revealed an elevated blood pressure otherwise unremarkable. Exam: General: Awake, alert in no distress Head: Normocephalic, atraumatic EENT: PERRL, Lids normal, sclera normal, conjunctiva normal, nose normal , ears normal, throat without erythema or exudates Neck: Supple, no adenopathy Lung: breath sounds symmetric, wheezing and rales at the end of expiration Chest: symmetric movement, nontender Heart: regular rate and rhythm, normal S1, S2 no murmurs or rubs Abdomen: soft, non-tender, nondistended, normal bowel sounds Back: no vertebral tenderness, no CVAT Extremities: no deformities, moves all extremities symmetrically, trace to 1+ pitting edema bilaterally symmetric Neuro: Awake, alert, oriented, normal speech, cranial nerves intact, moves all extremities symmetrically Psych: Pleasant, cooperative Medications Administered Discontinued Medications Generic Name Dose Route Start Last Admin Trade Name Freq PRN Reason Stop Dose Admin Albuterol Sulfate 2.5 mg/ 0 mg 01/18/25 12:11 01/18/25 12:18 Albuterol/Ipratropium 3 ml INHALE 01/18/25 12:12 5 dose ONCE ONE Administration Methylprednisolone Sodium Succinate 125 mg 01/18/25 13:15 01/18/25 13:50 Methylprednisolone Sod Succ 125 Mg Vial IVPUSH 01/18/25 13:16 125 mg ONCE ONE Administration Medical Decision Making Medical Decision Making MDM Narrative: 64-year-old male with a history of HIV on HAART, opiate use disorder on Suboxone, hepatitis-C, COPD requiring intubation and tracheostomy in the past who presents to the emergency department for evaluation of shortness of breath which started suddenly this morning after waking up and having a coughing spell. The patient states that he is supposed to wear his oxygen 2-3 L continuously but he states that he only wears it intermittently. He states that he did put on his oxygen overnight and this morning he believes there may have been some fluid in the oxygen tubing that caused him to wake up coughing. He states that he woke up with a coughing spell. After that he felt very short of breath at rest and had significant dyspnea on exertion at 10-20 feet therefore he called 911. Paramedics report that he was not wearing his oxygen and the patient's O2 saturation on room air was 86%. Patient states that he was given an albuterol nebulizer en route but he believes that it was not working. The patient denied being ill over the last several days. He denied fever, chills, cough, chest pain. He states he has shortness of breath was at baseline until this morning. At the time my evaluation he has no complaints. Patient did not appear to be in respiratory distress , O2 sat was 94% on 3 L via nasal cannula. Lung exam wheezing at end expiration and rales at the bases of the lung. Differential diagnosis: ?Includes but is not limited to COPD exacerbation, pneumonia, bronchitis, noncompliance with oxygen therapy, anemia, electrolyte abnormalities Course: 17:48 My independent interpretation of the patient's laboratory evaluation is as follows: WBC was normal 6400. Chronic microcytic anemia with an H&H of 10.7 and 34.4. Potassium elevated 5.2. BUN creatinine elevated 44 and 3.34-chronic. VBG revealed a normal pH of 7.38 and normal CO2 of 31 with a low bicarb of 19. Troponin was detectable but not elevated at 30.7. Patient has had chronically elevated troponins in his had higher troponins in the past. Twelve EKG revealed a first-degree AV block which is normal but no evidence for ischemia or myocardial injury. Chest x-ray revealed a right sided infiltrate which was significantly improved from the previous chest x-ray. Radiologist was concerned that the patient may have a pneumothorax therefore CT chest without IV contrast was obtained. There was no pneumothorax, radiologist was concerned the patient may have aspiration pneumonia. Clinically, the patient's presentation is not consistent with pneumonia and I do not think that the patient needs IV were antibiotics especially since he is positive for C diff on the last visit but negative for toxin. The patient was able to walk around in the emergency department on 3 L of oxygen via nasal cannula with O2 saturation monitor and never drop of low 95%. Patient states that he feels like he is at his baseline and does not require hospitalization at this time therefore he was discharged home. I did tell him that he should wear his oxygen continually since he has significant COPD/emphysema and his shortness of breath was most likely triggered by his noncompliance with his recommended continuous oxygen use. Admission/Observation Consideration of admission/observation: Escalation of care including admission/observation considered (Yes) Lab Data MDM Lab Attestation statement: I reviewed the patient's lab results. 01/18/25 13:10 01/18/25 13:10 Labs: Lab Results 01/18/25 01/18/25 01/18/25 Range/Units 12:20 12:26 13:10 WBC 6.4 (4.8-10.8) X10*3/uL RBC 4.81 (4.60-5.80) X10*6/uL Hgb 10.7 L (14.0-18.0) g/dl Hct 34.4 L D (42.0-52.0) % MCV 71.5 L (80.0-98.0) fL MCH 22.2 L (27.0-33.0) pg MCHC 31.1 (31.0-36.0) g/dl RDW 15.9 (11.0-16.0) % Plt Count 164 (160-400) X10*3/uL MPV 10.2 (9.4-12.4) fL Immature Gran % (Auto) 0.2 (0.0-0.4) % Neut % (Auto) 57.1 (45-73) % Lymph % (Auto) 27.1 (20-40) % Burnet % (Auto) 9.8 (2-11) % Eos % (Auto) 5.3 H (0-4) % Baso % (Auto) 0.5 (0-2) % Lymph # (Auto) 1.7 (1.2-4.9) X10*3/uL Burnet # (Auto) 0.6 (0.1-1.2) X10*3/uL Eos # (Auto) 0.3 (0.0-0.4) X10*3/uL Baso # (Auto) 0.0 (0.0-0.2) X10*3/uL Abs Immat Gran (auto) 0.01 (0.00-0.03) X10*3/uL Absolute Neuts (auto) 3.7 (2.0-8.3) x10*3/uL Absolute Nucleated RBC 0.000 (0.0-0.012) X10*3/uL Nucleated RBC % (auto) 0.0 (0.0-0.2) /100WBC Hold Purple Top Cancelled Hold Blue Top SEE NOTE VBG pH 7.38 (7.32-7.43) VBG pCO2 31 mmHg VBG pO2 60 mmHg VBG HCO3 19 L (22-26) mmol/L VBG O2 Saturation 89.0 % VBG Base Excess -4.6 mmol/L Sodium 140 (135-145) mmol/L Potassium 5.2 H D (3.3-5.1) mmol/L Chloride 111 H (96-108) mmol/L Carbon Dioxide 26 (22-29) mmol/L Anion Gap 8 L (12-20) BUN 44 H (9-16) mg/dL Creatinine 3.34 H (0.5-1.4) mg/dL Estim Creat Clear Calc 20.3 Estimated GFR 19 Random Glucose 165 H (60-115) mg/dL Calcium 8.9 D (8.4-10.2) mg/dL Magnesium 2.3 (1.6-2.6) mg/dL Total Bilirubin 0.3 (0.0-1.0) mg/dL AST 35 (5-37) U/L ALT 32 (0-40) U/L Alkaline Phosphatase 201 H (39-117) U/L Troponin I High Sens 30.7 D (<3.5-35.0) ng/L B-Natriuretic Peptide 171 H (<100) pg/mL Total Protein 7.9 (6.5-8.0) g/dL Albumin 4.0 (3.5-5.0) g/dL Lipase 31 (8-78) U/L Independent Interpretation I performed an independent interpretation of an: EKG and Plain X-Ray Interpretation: My independent interpretation patient's 12 EKG done on 01/18/2025 at 12:21 hours is as follows: Sinus rhythm with a rate of 73, first-degree AV block with a IL interval of 224 milliseconds, no ST segment elevation, no ST segment depression, no significant T-wave abnormalities, Q-waves V1 through V3 consistent with old anterior infarct. Compared to an EKG dated 12/24/2024 the first-degree AV block is new, the Q-waves in V1 through V3 are old. My independent interpretation patient's one-view chest x-ray is as follows: Right-sided infiltrate significantly improvement previous x-ray Radiology Impression Discussion of test interpretation with radiology: I have reviewed the radiologist's reading. Radiologist Impression: CT chest wo IV con IMPRESSION: No gross pneumothorax. Concerning aspiration pneumonia. Small volume right-sided pleural effusion. Consider calcium metabolic disorders. Fleischner guidelines were followed. Electronically signed by: Bobby Gifford MD 01/18/2025 04:03 PM External Record Review External record reviewed: Inpatient record Chronic Conditions Patient?s care impacted by: Other (COPD) Critical Care Time Critical Care Time Critical Care Time: Yes Total Critical Care Time: 45 Attestation: Critical Care: The patient was critically ill with a high probability of imminent or life threatening deterioration. I spent greater than 30 minutes of discontinuous time evaluating the patient,delivering critical care at the bedside, discussing and evaluating pertinent data with consultants. Critical care time does not include time spent performing separately billable procedures or teaching. Total time spent performing critical care was 45 minutes. Discharge Plan Discharge Clinical Impression: COPD exacerbation Patient Disposition: Home, Self-Care Additional Instructions: Your blood work was unremarkable. The CT scan of your chest did not reveal any popped lung (pneumothorax). Also, I do not think that you have pneumonia based on your symptoms. You were able to walk around in the emergency department with your oxygen in your oxygen level did not drop below 95% which is very reassuring. You need to wear your oxygen continually and this will make you feel better, if you take your oxygen off you will feel short of breath. Continue taking medications as prescribed by your providers Follow-up with your doctor in 2 days. Please return to the emergency department if your symptoms get worse or if you develop any symptoms that are concerning to you. Prescriptions: No Action budesonide-formoterol [Symbicort] 160-4.5 mcg/actuation HFA aerosol inhaler 2 puff inhalation BID 30 Days Qty: 10.2 11RF lamivudine 100 mg tablet 100 mg PO DAILY Tivicay 50 mg tablet 50 mg PO DAILY albuterol sulfate 90 mcg/actuation Hfa Aerosol Inhaler 2 puff INHALATION Q4H PRN (Reason: Wheezing) aspirin 81 mg Tablet,Delayed Release (Dr/Ec) 81 mg PO DAILY ascorbic acid (vitamin C) [Vitamin C] 500 mg Tablet 500 mg PO DAILY pantoprazole 40 mg Tablet,Delayed Release (Dr/Ec) 40 mg PO DAILY@0630 mirtazapine 7.5 mg tablet 7.5 mg PO BEDTIME buprenorphine-naloxone [Suboxone] 12-3 mg film 1 film sublingual DAILY vancomycin 125 mg capsule 125 mg PO QID 10 Days Qty: 40 0RF (DME) Oxygen Home Use Kit See Rx Instructions .ROUTE Rx Instructions: As directed Interventions: ED Discharge Assessment Last Done: 01/18/25 18:03 Discharge Date/Time: 01/18/25 18:08 Print Language: Trinidadian
--- NOTE | 2025-01-18 11:54 | ECG_ITS ---
Test Reason : sob Blood Pressure : */* mmHG Vent. Rate : 73 BPM Atrial Rate : 73 BPM P-R Int : 224 ms QRS Dur : 64 ms QT Int : 398 ms P-R-T Axes : 86 35 100 degrees QTcB Int : 438 ms Sinus rhythm with 1st degree A-V block Anteroseptal infarct (cited on or before 12-Jan-2014) Abnormal ECG When compared with ECG of 24-Dec-2024 04:52, TN interval has increased Vent. rate has decreased by 75 bpm T wave amplitude has decreased in Inferior leads T wave amplitude has decreased in Anterior leads Referred By: Blade Lucero Electronically Signed By: DANII ZENDEJAS MD
[2025-01-18 12:12] VITALS: PULSE 67; RESP 21; O2SAT 97
[2025-01-18] MEDS: Albuterol Sulfate 2.5 MG, Albuterol/Iprat 2.5/0.5MG 3 ML 3 ML INHALE (12:18)
[2025-01-18 12:27] LABS: Venous Blood Gas Refer to POC result
--- NOTE | 2025-01-18 12:29 | PC.NURSE ---
patient difficult IV stick, attempted x2 - unsuccessful.
[2025-01-18 12:30] LABS: VBG Base Excess -4.6 mmol/L; VBG HCO3 19 mmol/L (22-26); VBG pCO2 31 mmHg; VBG pH 7.38 (7.32-7.43); VBG pO2 60 mmHg
[2025-01-18 12:58] LABS: Troponin-I High Sensitivity 30.7 ng/L (<3.5-35.0)
[2025-01-18 13:14] LABS: MANUAL DIFF FLAG NO
[2025-01-18 13:17] LABS: Basophils Percent Auto 0.5 % (0-2); Eosinophils Absolute Auto 0.3 X10*3/uL (0.0-0.4); Eosinophils Percent Auto 5.3 % (0-4); Hematocrit 34.4 % (42.0-52.0); Hemoglobin 10.7 g/dl (14.0-18.0); Imm Gran Abs Auto 0.01 X10*3/uL (0.00-0.03); Imm Gran Pct Auto 0.2 % (0.0-0.4); Lymphocytes Absolute Auto 1.7 X10*3/uL (1.2-4.9); Lymphocytes Percent Auto 27.1 % (20-40); Mean Corpuscular HGB Conc 31.1 g/dl (31.0-36.0); Mean Corpuscular Hemoglobin 22.2 pg (27.0-33.0); Mean Corpuscular Volume 71.5 fL (80.0-98.0); Mean Platelet Volume 10.2 fL (9.4-12.4); Monocytes Absolute Auto 0.6 X10*3/uL (0.1-1.2); Monocytes Percent Auto 9.8 % (2-11); Neutrophils Absolute Auto 3.7 x10*3/uL (2.0-8.3); Neutrophils Percent Auto 57.1 % (45-73); Platelet Count 164 X10*3/uL (160-400); Red Blood Count 4.81 X10*6/uL (4.60-5.80); Red Cell Distribution Width 15.9 % (11.0-16.0); White Blood Count 6.4 X10*3/uL (4.8-10.8)
[2025-01-18 13:32] LABS: Alanine Aminotransferase 32 U/L (0-40); Alkaline Phosphatase 201 U/L (39-117); Anion Gap 8 (12-20); Aspartate Amino Transferase 35 U/L (5-37); Bilirubin Total 0.3 mg/dL (0.0-1.0); Blood Urea Nitrogen 44 mg/dL (9-16); Calcium 8.9 mg/dL (8.4-10.2); Carbon Dioxide 26 mmol/L (22-29); Chloride 111 mmol/L (96-108); Creatinine Clr Calc Pharmacy 20.3; Estimated Glomerular Filt Rate 19; Glucose Random 165 mg/dL (60-115); Lipase 31 U/L (8-78); Magnesium 2.3 mg/dL (1.6-2.6); Potassium 5.2 mmol/L (3.3-5.1); Sodium 140 mmol/L (135-145); Total Protein 7.9 g/dL (6.5-8.0)
[2025-01-18 13:36] LABS: B Type Natriuretic Peptide 171 pg/mL (<100)
[2025-01-18 13:55] VITALS: BP 93/51; PULSE 64; RESP 14; TEMP 36.5; O2SAT 96
[2025-01-18 15:45] VITALS: BP 95/48; PULSE 56; RESP 12; TEMP 36.5; O2SAT 95
[2025-01-18 18:03] VITALS: BP 95/48; PULSE 56; RESP 12; TEMP 36.5; O2SAT 95
== END 2025-01-18 18:08 | disposition home or self-care (01) ==
PROVIDERS: Emergency Provider Emergency Medicine Emergency Medical Services; PCP Internal Medicine
DX: J44.1 Chronic obstructive pulmonary disease with (acute) exacerbation (principal); R06.02 Shortness of breath; R05.9 Cough, unspecified; I44.0 Atrioventricular block, first degree; R07.89 Other chest pain; Z79.899 Other long term (current) drug therapy; Z21 Asymptomatic human immunodeficiency virus [HIV] infection status; Z87.891 Personal history of nicotine dependence; Z99.81 Dependence on supplemental oxygen
CPT/HCPCS: 36415; 71045; 71250; 80053; 82803; 83690; 83735; 83880; 84484; 85025; 93005; 94640; 99283; 99284; 99285; J2919

== ENCOUNTER → 2025-01-18 11:54 | Outpatient (BNV) | payer MEDICARE, MEDICAID, SELFPAY | PROVIDERS: Emergency Provider Emergency Medicine Emergency Medical Services; PCP Internal Medicine; Visit Provider Internal Medicine Cardiovascular Disease | DX: I44.0 Atrioventricular block, first degree (principal); I25.2 Old myocardial infarction | CPT/HCPCS: 93010 ==

== ENCOUNTER → 2025-01-18 11:54 | Outpatient (BNV) | payer MEDICARE, MEDICAID, SELFPAY | PROVIDERS: Emergency Provider Emergency Medicine Emergency Medical Services; PCP Internal Medicine; Visit Provider Radiology Diagnostic Radiology | DX: R91.1 Solitary pulmonary nodule (principal); R06.02 Shortness of breath | CPT/HCPCS: 71045; 71250 ==

== ENCOUNTER 2025-01-29 16:22 | Outpatient (AMB) | payer OTHER, SELFPAY ==
--- OUTSIDE RECORDS SUMMARY | 2025-01-29 17:39 | XMS_ITS | Encounter Summary ---
Author Organization [facility] Address [address] [place] [address] Phone Care Team Providers Care Tabulating Machine Mechanic Name Role Phone Nataliia Arroyo MD Primary Care Provider + [phone] Encounter Details Date Type Department Care Team (Late st Contact Info) Description 04/18/2024 Documentation Only [facility] [address] [place] [address] [place] [address] [place] [id number] Social History Tobacco Use Types Packs/Day Years [...] Visit [facility] [address] [place] [address] Ruy Mack DO [address] [place] [address] documented as of this encounter Visit Diagnoses Not on filedocumented in this encounter Care Teams Tabulating Machine Mechanic Relationship Specialty Start Date End Date Nataliia Arroyo MD [id number] PCP - General Internal Medicine 11/08/24 documented as of this encounter
--- NOTE | 2025-02-04 23:37 | A.OFFVISCC_ITS ---
Intake Visit Reasons: MAT Allergies No Known Allergies Allergy (Verified 02/20/25 14:52) HPI Comments Details: He has been doing well Review of Systems Const All systems reviewed & are unremarkable except as noted in HPI and below Physical Exam Const General: cooperative [facility] Medical History Opioid use disorder COPD (chronic obstructive pulmonary disease) HIV (human immunodeficiency virus infection) Anemia CKD (chronic kidney disease) Acute hypoxic respiratory failure Respiratory failure Tachycardia Myocardial injury Pneumonia TERRY (obstructive sleep apnea) Pulmonary nodules Hepatitis C HIV disease COPD (chronic obstructive pulmonary disease) Social History Household Members: Unknown / Unable to assess Housing: Unknown / Unable to assess Do you presently have visiting nurse or other home services: No Alcohol intake: former Comment: Sitter at bedside Patient Tobacco Use Status: Current someday Tobacco user Tobacco use type: Cigarette Cigarette Packs Per Day: 1 Cigarettes Per Day: 4 Years Smoked: 30 Years Substance Use Type: Marijuana service: No Assessment & Plan Assessment & Plan (1) Opioid use disorder: Comment: He has no complaints Code(s): F11.90 - Opioid use, unspecified, uncomplicated Category: Medical Plan Continue current medication Medications: New buprenorphine-naloxone 8-2 mg (Suboxone) 1 film sublingual BID 60 ea 0RF 30 days
== END 2025-01-29 16:31 | disposition home or self-care (01) ==
LOC: HO.HCC 16:22
PROVIDERS: PCP Internal Medicine; Visit Provider Internal Medicine
DX: F11.90 Opioid use, unspecified, uncomplicated (principal)
CPT/HCPCS: 99213

== ENCOUNTER 2025-02-20 14:31 | Outpatient (AMB) | payer MEDICARE, MEDICAID, SELFPAY ==
[2025-02-20 14:49] VITALS: BP 128/70; PULSE 59; O2SAT 93; BMI 21.1
--- NOTE | 2025-02-20 14:49 | A.OFFVIS_ITS ---
Vital Signs 02/20/25 14:49 Height 5 ft 8 in Weight 138 lb 14.259 oz BMI 21.1 BP 128/70 Blood Pressure Location Lt brachial Position Sitting Pulse 59 Pulse Source Pulse Oximeter Pulse Oximetry (%) 93 Oxygen Delivery Method Room Air Intake Visit Reasons: Pulmonary Nodules/Resp Failure Allergies No Known Allergies Allergy (Verified 02/20/25 14:52) HPI Comments Details: The patient is a 64-year-old gentleman with known hepatitis-C, HIV and COPD. he also is being evaluated for abnormal CT scan with multiple nodular densities which are concerning in appearance. Back in 2019 the patient did undergo a CT scan demonstrating the abnormalities and sometime after that he did undergo a PET scan demonstrating mild FDG activity suggesting infectious versus inflammatory but cannot rule out a smoldering malignant process. Therefore he had a repeat CT scan in October 2020 demonstrating persistent nodular densities and emphysema. More recent the patient was having worsening shortness of breath. His shortness of breath is very significant to the point that if he needs to go to the bathroom he does not have time to make it. Therefore he has been very incontinence of both urine and stool. During his last trip to the beach apparently the patient developed significant shortness of breath and apparently does not remember what happened after that. He was taken to local hospital where he was intubated with respiratory failure. He was also told he had an infection. The patient does not have the records with him. Will requesting from hospital where he was that. After he was treated for the infection and was situated on his respiratory medications he was discharged. Overall he is starting to feel better. Although he still has this significant episodes of shortness of breath. Denies any fevers or chills at this time. the patient is not currently on any maintenance therapy. Therefore will going to optimize his respiratory therapy and also follow-up with his pulmonary nodular densities and also his lung capacity. 04/30/2023 the patient is here for a pulmonary follow-up visit. The patient recently was hospitalized back go with some RO at [facility]. Apparently he was found unresponsive with acute on chronic respiratory failure. He was intubated admitted to the ICU briefly. He was subsequently extubated. His respiratory viral panel was positive for enterovirus. She was treated extubated and subsequently discharged. Now he is using his respiratory therapy. He was feeling very short of breath with minimal activity but he is getting slowly better. Still gets shortness of breath with going up a flight of stairs or a incline. Moderate severity. We did taken for 6 minute walk test the patient did desaturate some but did not qualify for oxygen. The patient did have a CT scan of the chest air. I also reviewed the CT scan that he had here just a week ago and also had a CT scan back a year ago. It appears that the nodular changes have been stable. He has a larger area on the right upper lobe that were following closely but does not appear to have changed significantly. The CT scan just that has not been officially been read so will wait for the final report. But clinically doing well although he is deconditioned. Will request pulmonary function studies and will get him involved in pulmonary rehabilitation at this time. 06/24/2023 the patient is here for pulmonary follow-up visit. The patient is feeling better overall. We did review his CT scan of the chest demonstrating interval stability of the pulmonary nodules. The patient does have extensive emphysema. will go ahead and repeat his CT scan in a year's time. The patient also has his positive airway pressure therapy. He states that he is using it regularly. Although they reports states that he is not using it as much as he should. I did encourage him to use it at least 4 hours a night. He is going to start using it as such. The mask fitting as well. The patient does feel better when he uses it. He does continue to use his respiratory therapy with good effect. No further changes at this time. Will follow-up in 6-8 months. 04/12/2024 the patient is here for a hospital follow-up visit. He had a very eventful stay back in September. He had respiratory failure admitted to the ICU. He did require tracheostomy. Subsequently after that he went to an acute rehab where he was able to be liberated from the ventilator and subsequently decannulated. The patient does have a healing tracheostomy still. Low open. The patient also in March just when he was recovering developed COVID. He was readmitted to the hospital. At that point he had acute hypercarbic respiratory failure requiring ICU level of care again. Now the patient is at home. He is having significant shortness of breath and tachycardia. We did go for a walking oximetry in the office. Heart rate was in the 140s at rest and his pulse ox was at 92%. He did desaturate quickly to 87% and heart rate increase to the 150s. He was placed on 3 L pulse improving his oxygenation and also the heart rate. He is going to get blood work including an EKG today. The patient also needs to go back to pulmonary rehabilitation. He had an x-ray on 03/28/2024 which I personally reviewed demonstrating airspace disease but overall stable. If anything a little better. 06/05/2024 the patient is here for a pulmonary follow-up visit. The patient is better overall. He is using the oxygen still. He does not have to use the oxygen at rest just with activity. Ultimately he is participating in the pulmonary rehabilitation which is also been very helpful for him. At nighttime he is using the BiPAP. This is helpful as well. He is using his respiratory therapy. We did go for a walking oximetry in the heart rate did go up to about 120 but much better than before. He did a lot better overall. The patient does have a CT scan scheduled for a week or 2 from now. Will follow-up with that. 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 Therefore the patient will return in 3-4 months she will continue with the current therapy at this time. 02/20/2025 the patient is here for pulmonary follow-up visit. Overall he is doing well. He was hospitalized back in September with coronavirus and then again in December with significant C diff colitis. The patient did have significant amount of weight loss during that episode. He started gaining some weight again. The patient has been using his respiratory medications although he has not been getting the Spiriva. I will make sure to send him all his maintenance inhalers to make sure that he continues to take care of his respiratory capacity. He did have issues with albuterol so I will send him Xopenex to minimize in the palpitations and tachycardia. The patient did have a CT scan of the chest that I personally reviewed and also compared to a CAT scan from 2023. It appears that his lungs are stable and actually overall better resolving the aspiration pneumonia that he had before. He does have some scarring and some emphysema in the lungs that appears to be fairly stable. He does have these BiPAP at nighttime although he does struggle with the mask. He also has oxygen. He is actually using the oxygen at nighttime with good effect and also the oxygen with activity also with good effect. Will follow-up in 6 months if he has any issues prior to this he will call for further recommendations. [facility] Medical History (Updated 02/05/25 @ 13:22 by Maria R Duran MD) Opioid use disorder COPD (chronic obstructive pulmonary disease) HIV (human immunodeficiency virus infection) Anemia CKD (chronic kidney disease) Acute hypoxic respiratory failure Respiratory failure Tachycardia Myocardial injury Pneumonia TERRY (obstructive sleep apnea) Pulmonary nodules Hepatitis C HIV disease COPD (chronic obstructive pulmonary disease) Social History (Updated 02/20/25 @ 14:54 by Radha Nolen CMA) Household Members: Unknown / Unable to assess Housing: Unknown / Unable to assess Do you presently have visiting nurse or other home services: No Alcohol intake: former Comment: Sitter at bedside Patient Tobacco Use Status: Current someday Tobacco user Tobacco use type: Cigarette Cigarette Packs Per Day: 1 Cigarettes Per Day: 4 Years Smoked: 30 Years Substance Use Type: Marijuana service: No Review of Systems Const Reports difficulty sleeping, Denies fever(s), Reports poor appetite and Reports weight loss Eyes Denies change in vision ENT Denies change in voice Card Denies chest pain, Reports dyspnea and Reports dyspnea on exertion Resp Reports cough, Reports dyspnea, Reports dyspnea on exertion and Denies wheezing GI Reports as per HPI and Reports early satiety Musc Reports no additional complaints and Reports muscle weakness Skin/Breast Denies rash Aller/Immun Denies wheezing Physical Exam Vital Signs: Last Vital Signs Pulse 59 02/20/25 14:49 BP 128/70 02/20/25 14:49 Pulse Ox 93 02/20/25 14:49 Oxygen Delivery Method Room Air 02/20/25 14:49 BMI result Body Mass Index 21.1 Const General: healthy appearing and comfortable HEENT Head: Yes normal to inspection Eyes General: appearance normal, both eyes and all related structures Neck Neck: Yes normal visual inspection, Yes full ROM, Yes supple and Yes other (dressing CDI, air leakage through trach stoma) Chest Chest palpation & inspection: normal inspection of the chest Resp Effort & Inspection: normal respiratory effort Auscultation: diminished lung sounds Cardio Rate: regular rate Rhythm: regular rhythm Heart sounds: S1 normal heart sound present and S2 normal heart sound present GI Inspection: Yes normal to inspection Skin General skin exam: no rashes or lesions noted Extrem General: No cyanosis and No edema Assessment & Plan Assessment & Plan (1) COPD (chronic obstructive pulmonary disease): Code(s): J44.9 - Chronic obstructive pulmonary disease, unspecified Category: Medical Qualifiers: COPD type: chronic bronchitis Chronic bronchitis type: mucopurulent Qualified Code(s): J41.1 - Mucopurulent chronic bronchitis (2) Pulmonary nodules: Code(s): R91.8 - Other nonspecific abnormal finding of lung field Category: Medical (3) Respiratory failure: Code(s): J96.90 - Respiratory failure, unspecified, unspecified whether with hypoxia or hypercapnia Category: Medical Qualifiers: Chronicity: chronic Respiratory failure complication: hypoxia and hypercapnia Qualified Code(s): J96.11 - Chronic respiratory failure with hypoxia; J96.12 - Chronic respiratory failure with hypercapnia Plan continue Symbicort and Spiriva short-acting beta agonist as needed continue BIPAP therapy at night, needs to use it >4 hours/night oxygen with POC 3L/pulse with activity and sleep Follow-up in 3-4 months Medications: New tiotropium bromide 2.5 mcg/actuation (Spiriva Respimat) 2 puffs inhalation DAILY 1 ea 11RF 30 days levalbuterol tartrate 45 mcg/actuation (Xopenex HFA) 2 puffs inhalation Q6H PRN 15 grams 11RF shortness of breath or wheezing 30 days J45.909 - Unspecified asthma, uncomplicated Refilled budesonide-formoterol 160-4.5 mcg/actuation (Symbicort) 2 puffs inhalation BID 10.2 grams 11RF 30 days J44.89 - Other specified chronic obstructive pulmonary disease Coding Level of Care Code Est Pt Level 4 (34845) Complex EM visit Add On G2211 Diagnoses Simple chronic bronchitis J41.1 COPD type: chronic bronchitis Chronic bronchitis type: mucopurulent Pulmonary nodules R91.8 Chronic respiratory failure with hypoxia and hypercapnia J96.11; J96.12 Chronicity: chronic Respiratory failure complication: hypoxia and hypercapnia Time Spent (min) 18
--- OUTSIDE RECORDS SUMMARY | 2025-02-20 15:53 | XMS_ITS | Encounter Summary ---
Author Organization [facility] Address [address] [place] [address] Phone Care Team Providers Care Automotive Collision Estimator Name Role Phone Nataliia Arroyo MD Primary Care Provider + [phone] Encounter Details Date Type Department Care Team (Late st Contact Info) Description 04/18/2024 Documentation Only [facility] [address] [place] [address] Angel [place] [address] [place] [phone] Social History Tobacco Use Types Packs/Day Years [...] Visit [facility] [address] [place] [address] Ruy Mack DO [address] [place] [address] documented as of this encounter Visit Diagnoses Not on filedocumented in this encounter Care Teams Automotive Collision Estimator Relationship Specialty Start Date End Date Nataliia Arroyo MD [address] PCP - General Internal Medicine 11/08/24 documented as of this encounter
--- OUTSIDE RECORDS SUMMARY | 2025-02-20 15:53 | XMS_ITS | Encounter Summary ---
Author Organization [facility] Address [address] [place] [id number] Care Team Providers Care Pedodontist Name Role Phone Loreta Bhagat MD Primary Care Provider [phone] Reason for Referral * Consultation (Routine) - Denied Specialty Diagnoses / Procedures Referred By Contac t Referred To Contact Pulmonary Disease Diagnoses Pulmonary nodules Loreta Bhagat MD [address] [place] [address] Phone: tel: fax: Jorge Brooks MD Phone: tel: fax: Referral ID Status Reason Start Date Expiration Date V isits Requested Visits Authorized [id number] Denied Specialty Services Required 02/05/2025 02/05/2026 6 0 Reason for Visit * Reason Onset Date Comments Referral 01/30/2025 Pulmonology Insu samanta Referral Encounter Details Date Type Department Care Team (Late st Contact Info) Description 01/30/2025 Telephone Adult Medicine [address] [address] Loreta Bhagat MD [address] [place] [address] Referral (Pulmonology Insurance Referral) Social History Tobacco Use Types Packs/Day Years Used Date Smoking Tobacco: Every Day Cigarettes 0.3 50.5 Started: [birth year]09/1975 Smokeless Tobacco: Never Alcohol Use Standard Drinks/Week Comments No 0 (1 standard drink = 0.6 oz pur e alcohol) Sex and Gender Information Value Date Recorded Sex Assigned at Not on file Legal Sex Male 4:00 PM EST Gender Identity Not on file Sexual Orientation Not on file documented as of this encounter Progress Notes * Farzana Shields - 01/30/2025 2:35 PM EDT What insurance does the patient have today? Payor: @[email or web address]@/@[email or web address] Referrals cannot be processed if the insurance is not accurate. If the insurance listed above is NO BILLING INFORMATION FOUND FOR THIS ENCOUNTER then the patients correct insurance must be obtainedand registered in [facility] or their referral can not be processed. Name of person calling to request this referral? Fax - [facility] Pulmonology Referred To Provider (Include first and last name): Jorge Brooks NPI (if known): [phone] Order/Specialty requested pulmonology Chief Complaint (Note: This is not a body part or a procedure): pulmonary nodules Has the patient seen provider for this problem/Dx before? Referred To Provider Address: Referred To Provider Referred To Provider Does patient have an appointment scheduled?: unknown If yes, what is the date of the appointment?: start date 01/30/25 Is this a retro request? 6 Number of visits requested: no Is this appointment related to: MVA or worker compensation? no documented in this encounter Plan of Treatment Scheduled Referrals Name Type Priority Associated Diagnoses Order Schedule Ambulatory referral to Pulmonology Outpatient Referral Routine Pulmonary nodules Expected: 02/19/2025, Expires: 01/30/2026 documented as of this encounter Visit Diagnoses Diagnosis Pulmonary nodules- Primary Other diseases of lung, not elsewhere classified documented in this encounter Care Teams Pedodontist Relationship Specialty Start Date End Date Loreta Bhagat MD [address] [place] [address] PCP - General Internal Medicine 09/01/21 documented as of this encounter
== END 2025-02-20 15:14 | disposition home or self-care (01) ==
LOC: HO.HPS 14:32
PROVIDERS: PCP Internal Medicine; Visit Provider Hospitalist
DX: J41.1 Mucopurulent chronic bronchitis (principal); R91.8 Other nonspecific abnormal finding of lung field; J96.11 Chronic respiratory failure with hypoxia; J96.12 Chronic respiratory failure with hypercapnia
CPT/HCPCS: 99214; G2211

== ENCOUNTER → 2025-02-20 14:31 | Outpatient (BNVA) | payer MEDICARE, SELFPAY | PROVIDERS: PCP Internal Medicine; Visit Provider Hospitalist | DX: J41.1 Mucopurulent chronic bronchitis (principal); J96.12 Chronic respiratory failure with hypercapnia; R91.8 Other nonspecific abnormal finding of lung field; J96.11 Chronic respiratory failure with hypoxia | CPT/HCPCS: 99212 ==

== ENCOUNTER 2025-03-07 13:51 | Outpatient (AMB) | payer MEDICARE, SELFPAY ==
[2025-03-07 14:01] VITALS: BP 126/80; PULSE 88; O2SAT 90; BMI 22.0
--- NOTE | 2025-03-07 14:01 | MHC.OFFVIS ---
Vital Signs 03/07/25 14:01 Height 5 ft 8 in Weight 145 lb BMI 22.0 BP 126/80 Pulse 88 Pulse Oximetry (%) 90 L Intake Visit Reasons: MAT Allergies No Known Allergies Allergy (Verified 02/20/25 14:52) HPI HPI MAT: Details: He is doing well. He has no complaints with dosing Suboxone. [facility] Medical History Opioid use disorder COPD (chronic obstructive pulmonary disease) HIV (human immunodeficiency virus infection) Anemia CKD (chronic kidney disease) Acute hypoxic respiratory failure Respiratory failure Tachycardia Myocardial injury Pneumonia TERRY (obstructive sleep apnea) Pulmonary nodules Hepatitis C HIV disease COPD (chronic obstructive pulmonary disease) Social History Household Members: Unknown / Unable to assess Housing: Unknown / Unable to assess Do you presently have visiting nurse or other home services: No Alcohol intake: former Comment: Sitter at bedside Patient Tobacco Use Status: Current someday Tobacco user Tobacco use type: Cigarette Cigarette Packs Per Day: 1 Cigarettes Per Day: 4 Years Smoked: 30 Years Substance Use Type: Marijuana service: No Review of Systems Const All systems reviewed & are unremarkable except as noted in HPI and below Physical Exam Vital Signs: Last Vital Signs Pulse 88 03/07/25 14:01 BP 126/80 03/07/25 14:01 Pulse Ox 90 L 03/07/25 14:01 BMI result Body Mass Index 22.0 Const General: cooperative Assessment & Plan Assessment & Plan (1) Opioid use disorder: Comment: He has no complaints Code(s): F11.90 - Opioid use, unspecified, uncomplicated Category: Medical Plan: Continue current meds Suboxone 8/2 bid See in two months. Medications: New buprenorphine-naloxone 8-2 mg (Suboxone) 1 film sublingual BID 60 ea 1RF 30 days Coding Level of Care Code Est Pt Level 3 (40916) Diagnoses Opioid use disorder F11.90
--- OUTSIDE RECORDS SUMMARY | 2025-03-07 14:32 | XMS_ITS | Encounter Summary ---
Author Organization [facility] Address [address] [place] [address] Phone Care Team Providers Care Supervisor Cutting And Boning Name Role Phone Nataliia Arroyo MD Primary Care Provider + [phone] Encounter Details Date Type Department Care Team (Late st Contact Info) Description 04/18/2024 Documentation Only [facility] [address] [place] [address] Angel Harding [place] [address] [place] [phone] Social History Tobacco Use Types Packs/Day Years [...] Visit [facility] [address] [place] [address] Ruy Mack DO [address] [place] [address] documented as of this encounter Visit Diagnoses Not on filedocumented in this encounter Care Teams Supervisor Cutting And Boning Relationship Specialty Start Date End Date Nataliia Arroyo MD [address] PCP - General Internal Medicine 11/08/24 documented as of this encounter
--- OUTSIDE RECORDS SUMMARY | 2025-03-07 14:32 | XMS_ITS | Clinical Summary ---
Author Organization [facility] Address [address] [address] Phone Care Team Providers Care Air Hose Coupler Name Role Phone Loreta Bhagat MD Primary Care Provider [phone] Social History Tobacco Use Types Packs/Day Years Used Date Smoking Tobacco: Never Assessed Education Answer Date Recorded Are you interested in more education? Not on eleno e 03/06/2024 Are you concerned about learning? Not on file 03/06/2024 No 03/06/2024 No 03/06/2024 Digital Access Answer Date Recorded No 03/06/2024 No 03/06/2024 Reliable internet access at home? Not on file 03/06/2024 Device with a working camera? Not on file Sex and Gender Information Value Date Recorded Sex Assigned at Not on file Legal Sex Male 2:50 PM EDT Gender Identity Not on file Sexual Orientation Not on file Plan of Treatment Not on file Medical Devices Not on file Insurance [employer] ACO [facility] ALLANCE ACO [facility] [place] [address] [place] [address] [facility] [employer] [facility] ACO [facility] ACO Care Teams Air Hose Coupler Relationship Specialty Start Date End Date Loreta Bhagat MD [address] [place] [address] PCP - General 03/06/24 Additional Source Comments The information contained in this document represents components of the legal health record. It is not the complete legal health record.[facility]
== END 2025-03-07 14:59 | disposition home or self-care (01) ==
LOC: HO.HCC 13:52
PROVIDERS: PCP Internal Medicine; Visit Provider Internal Medicine
DX: F11.90 Opioid use, unspecified, uncomplicated (principal)
CPT/HCPCS: 99213

== ENCOUNTER → 2025-03-07 13:51 | Outpatient (BNVA) | payer MEDICARE, SELFPAY | PROVIDERS: PCP Internal Medicine; Visit Provider Internal Medicine | DX: F11.90 Opioid use, unspecified, uncomplicated (principal) | CPT/HCPCS: 99212 ==

== ENCOUNTER 2025-05-01 13:51 | Outpatient (AMB) | payer MEDICARE, SELFPAY ==
--- OUTSIDE RECORDS SUMMARY | 2025-05-01 04:35 | XMS_ITS | Continuity of Care Document ---
Author Organization [facility] Address 1 [facility] [address] [place] [address] Phone Care Team Providers Care Inspector Returned Materials Name Role Phone Pineda PUMP TESTERRosemary Unavailable Unavailable Allergies, Adverse Reactions, Alerts Substance Reaction Status Criticality No Known Allergies Active No Inform ation Medications Medication Instructions Dosage Effective Dates (start - stop) Status Comments PROPRANOLOL ER 60 MG CAPSULE TOME 1 CAPSULA POR VIA ORAL TODOS [place] - Active trazodone 50 mg tablet TAKE 1 TABLET BY ORAL ROUTE EVERY DAY AT BEDTIME FOR FOR SLEEP - Active Tussin DM 20 mg-400 mg tablet Take 1 large Spoon every 4-6 hr as needed - Active avanafil 50 mg tablet take 1 tablet by oral route every day as needed approximately 30 minutes before sexual activity 50 MG - Active Oxygen 2L/m via nasal cannu la when sleeping/napping to maintain O2sat of > 88% - Active mirtazapine 7.5 mg tablet TOME 1 TABLETA [...] ROUTE EVERY 8 HR NEEDED - Active budesonide-formotero l HFA 160 mcg-4.5 [...] Location Reason(s) For Visit Diagnoses Date Provider [facility]ly [facility], [facility], [facility], [place], [place], [id number], tel:[phone] [place] No Information 5 Pineda Riley. [address] [place], [id number] , [place]. tel:[phone] [facility]ly [facility], [facility], [facility] [address] [place] [address], [id number], [place] tel:[phone] [place] No Information 5 Pineda Quinna. [address] [place], [id number] , [place]. tel:[phone] [facility], [facility], [facility], [place], [place], [id number], [place] tel:[phone] [place] No Information - 5 Pineda Rosemary. [address] [place], [id number] , [place]. tel:[phone] [facility]ly [facility], [facility], [address], [place], [place], [id number], [place] tel:[phone] [place] No Information Mar-0 5 Pineda Rosemary. [address] [place], [id number] , [place]. tel:[phone] [facility]ly [facility], [facility], [facility], [place], [place], [id number], [place] tel:[phone] [place] Encounter for nutrit ional assessmentAt risk for inadequate oral intake 5 Lila Barclay. [address] [place], [id number] , [place]. tel:[phone] [facility], [facility], [facility] [address] [place] [address], [id number], [place] tel:[phone] [place] Semi-Annual (chief complaint) MDD (major depressive disorder), recurrent episode, mildOpioid dependence on agonist therapyMild cognitive impairmentCerebrovascular diseaseEncephalomalacia with cerebral infarctionHypertensive heart and kidney disease with HF and with CKD stage IVChronic kidney disease, stage 4 (severe)Heart failure with reduced ejection fraction (HFrEF, <= 40%)Coronary artery disease involving twenty-nine palms coronary artery of twenty-nine palms heart without angina pectorisBenign prostatic hyperplasia, unspecified whether lower urinary tract symptoms presentHPTH (hyperparathyroidism)Rocky roesophageal reflux disease without esophagitisAnemia due to vitamin B12 deficiency, unspecified B12 deficiency typeHIV diseaseCentrilobular emphysemaChronic respiratory failure with hypoxiaEssential tremorInsomnia, unspecified type 5 Pineda Riley. [address] [place], [id number] , [place]. tel:[phone] [facility], [facility], [facility] [address] [place] [address], [id number], [place] tel:[phone] [place] Post Hospital Evaluation (chief complaint) Community acquired pneumonia due to PneumococcusEssential tremorChronic obstructive pulmonary disease with acute exacerbationStatus post tracheostomy 5 Pineda Tipton [address] [place], [id number] , [place]. tel:[phone] [facility], [facility], [facility] [address] [place] [address], [id number], [place] tel:[phone] [place] No Information 5 Pineda Tipton [address] [place], [id number] , [place]. tel: [phone] [facility]ly [facility], [facility], [address], [place], [place], [id number], [place] tel:[phone] [place] Acute Visit (chief complaint)P ost Enrollment f/u #2 (chief complaint) Centrilobular emphysemaCKD (chronic kidney disease) stage 4, GFR 15-29 ml/min December-0 5 Pineda Riley. [address] [place], [id number] , [place]. tel: [phone] [facility], [facility], [address], [place], [place], [id number], [place] tel:[phone] [place] No Information Nov-0 5 Pineda Riley. [address] [place], [id number] , [place]. tel: [phone] [facility], [facility], [address], [place], [place], [id number], [place] tel:[phone] [place] Chronic kidney disea se, stage 4 (severe) Nov-0 5 Pineda Riley. [address] [place], [id number] , [place]. tel: [phone] [facility], [facility], [address], [place], [place], [id number], [place] tel:[phone] [place] Family history of malignant neoplasm of digestive organs Mar-3 5 Pineda Riley. [address] [place], [id number] , [place]. tel: [phone] [facility], [facility], [address], [place], [place], [id number], [place] tel:[phone] [place] No Information Oct-2 5 Pineda Riley. [address] [place], [id number] , [place]. tel: [phone] [facility], [facility], [address], [place], [place], [id number], [place] tel:[phone] [place] Encounter for rehabilitation evaluation Oct-2 5 Marcy Reyes. [address] [place], [id number]. tel:[phone] [facility], [facility], [address], [place], [place], [id number], [place] tel:[phone] [place] No Information Oct-08 13- 5 Pineda Riley. [address] [place], [id number] , [place]. tel:[phone] [facility], [address] [facility] [address] [address], [place], [place], [id number], [place] tel:[phone] [place] No Information Oct- 5 Pineda Riley. [address] [place], [id number] , [place]. tel:[phone] [facility], [facility], [address] [facility] [address], [place], [place], [id number], [place] tel:[phone] [place] No Information Oct-0 5 Pineda Riley. [address] [place], [id number] , [place]. tel:[phone] [facility], [facility], [address] [facility] [address], [place], [place], [id number], [place] tel:[phone] [place] Human immunodeficien cy virus [HIV] disease Oct-0 5 Pineda Riley. [address] [place], [id number] , [place]. tel:[phone] [facility], [facility], [address] [facility], [place], [place], [id number], [place] tel:[phone] [place] Acute Visit (chief complaint) Heart failure with reduced ejection fraction (HFrEF, <= 40%)HIV diseaseInsomnia, unspecified type Fe- 5 Pineda Riley. [address] [place], [id number] , [place]. tel:[phone] [facility], [facility], [address], [place], [place], [id number], [place] tel:[phone] [place] Encounter for rehabilitation evaluation 5 Marcy Reyes. [address] [place], [address]. tel:[phone] [facility], [facility], [address], [place], [place], [id number], [place] tel:[phone] [place] Acute Visit (chief complaint) COPD exacerbationMDD (major depressive disorder), recurrent episode, mildHeart failure with reduced ejection fraction (HFrEF, <= 40%) 5 Pineda Riley. [address] [place], [id number] , [place]. tel:[phone] [facility], [facility], [address] [facility] [address] [address], [place], [place], [id number], [place] tel:[phone] [place] No Information 5 Pineda Riley. [address] [place], [id number] , [place]. tel:[phone] [facility], [facility], [address], [place], [place], [id number], [place] tel:[phone] [place] Encounter for rehabilitation evaluation 5 Karol William. [address] [place], [id number] , [place]. tel:[phone] [facility], [facility], [address], [place], [place], [id number], [place] tel:[phone] [place] Difficulty in walkin g, not elsewhere classifiedEncounter for rehabilitation evaluation 5 Marcy Reyes. [address] [place], [address]. tel:[phone] [facility], [facility], [address], [place], [place], [id number], [place] tel:[phone] [place] Post Enrollment Evaluation (chief complaint) Opioid dependence on agonist therapyEncephalomalacia with cerebral infarctionCerebrovascular diseaseHIV diseaseAcquired immunocompromised stateCentrilobular emphysemaChronic respiratory failure with hypoxiaStatus post tracheostomyCKD (chronic kidney disease) stage 4, GFR 15-29 ml/minCoronary artery disease involving twenty-nine palms coronary artery of twenty-nine palms heart without angina pectorisHeart failure with reduced ejection fraction (HFrEF, <= 40%)Hypertensive heart and kidney disease with HF and with CKD stage IVGastroesophageal reflux disease without esophagitisBenign prostatic hyperplasia with lower urinary tract symptoms, symptom details unspecifiedSecondary hyperparathyroidism of renal originAnemia, unspecified typeChronic hepatitis B 5 Pineda Tipton [address] [place], [id number] , [place]. tel:[phone] [facility], [facility], [facility] [address] [place] [address], [id number], tel:[phone] [place] Encounter for nutrit ional assessmentAt risk for inadequate oral intakeIncreased nutritional needs 5 Lila Barclay. [address] [place], [id number] , [place]. [phone] [facility], [facility], [address] [facility] [address] [place] [address], [id number], [place] tel:[phone] [place] Opioid dependence, i n remissionTracheostomy status 5 Pineda Riley. [address] [place], [id number] , [place]. [phone] [facility], [facility], [address] [facility] [place] [address], [id number], [place] tel:[phone] [place] No Information 4 Pineda Riley. [address] [place], [id number] , [place]. [phone] Family History Family Member Type Diagnosis Age At Onset No Information Immunizations Vaccine Date Status Comments Flu-IIV3,p-free administered Source: [facility] Payers Payer name Insurance type Covered alliance party ID Jose E navas(s) [facility] 16 [id number] Social History Type Description Quantity Date Captured [...] Date Complaint History Of Prese nt Illness Semi-Annual Patient is a 63- year-old gentleman with well-controlled HIV on HAART, h/o treated HCV with SVR, h/o polysubstance abuse on Seboxone, H/o of methadone use for 14 years), COPD/emphysema, CKD, CAD (prior admit with NSTEMS/ischemic cardiomyopathy due to drug use (under different MRN), HFrEF, prior admit for AMBER on CKD and 2 recent admits om 2023 to [facility] with sepsis, MSSA bacteremia, AMBER on CKD, c. dif.He is relatively doing much better. Looks like some of the time he felt SOB, it was in fact panic attack and stress. His sleeping has improved and is eating better. He was also recently started on Propranolol for essential tremor, which he reports is helping his to some extent. HIV: under close monitoring of ID who follow him every 3 months. COPD: O2 dependent due to chronic hypoxia, He is still smoking but knows he should quit. Today he denies any acute complaint. Again had to educate him on constant and persistent home O2 use to prevent hypoxia. Post Hospital Evaluation Earl is here for follow up after short hospitalization. Earl is a 64-year-old man with underlying HIV hepatitis C, COPD with prior admission for illus complicated by aspiration pneumonia with an inability to wean of ventilator support require tracheostomy. He presented to the emergency room with another episodes of acute shortness of breath. Initial work up in emergency room showed metabolic acidosis likely due to Right sided of pneumonia. He was started on broad-spectrum antibiotic and admitted to be intensive care unit. During this admission he got intubated and ICU was started on Zosyn and the next day he got extubated the next day. Today is reporting his feeling much better no shortness of breath no chills or fever outside. We discussed how the tremor in his throat (that is as result of neurological damage secondary to multiple intubation) and the recurrence of aspiration pneumonia. He is willing to try medication to see that would help with his tremor. He also report he is still getting about three hours of sleep despite low dose Mirtazapine.\PELung CTA bilaterally, diminished at the baseCV regular HR, no murmurabd soft non-tenderLE no edema Acute Visit Post Enrollment f/u #2 Alter is her for regular follow up.Patient is a 63-year-old gentleman with well-controlled HIV on HAART, h/o treated HCV with SVR, h/o polysubstance abuse on Seboxone, H/o of methadone use for 14 years), COPD/emphysema, CKD, CAD (prior admit with NSTEMS/ischemic cardiomyopathy due to drug use (under different MRN), HFrEF, prior admit for AMBER on CKD and 2 recent admits om 2023 to [facility] with sepsis, MSSA bacteremia, AMBER on CKD, c. difficie ?diarrhea/infection (not clear had colitis - no colitis on scanned imaging) then melena with concern for GIB T rossana he reports he is doing well and has no complaint. Reviewed the medication, sounds like he is compliant with his medications.We discuss his approach to ED and let him know there are many things we can do to prevent him from hospitalization.Again, instructed him to call the office for any acute problem before reaching 911. He expressed understanding.Physical ExamConstitutional/ M/ Psych: Alert, oriented x3, in no distress, Normal mood and affectHead: Normocephalic.Neck: Supple, Full range of motion.Respiratory: Clear to auscultation. No wheezing, rales or rhonchi.Cardiovascular: S1 S2 regular. N murmurs, rubs or gallops.Gastrointestinal: Abdomen soft, non-tender, non-distended. Normal bowel sounds.Neurologic: Cranial nerves II-XII grossly intact. No focal neurological deficits. Acute Visit Earl is here f or [...] regular HR, no murmurLE +2 pitting edema [id number] weight increase in the past month and [...] and 2 recent admits om 2023 to [facility] with sepsis, MSSA bacteremia, AMBER on CKD, [...] failure. Has VNA for trach/wound care.Admit to [facility] from 11/27-12/22/2023 with sepsis, MSSA bacteremia and treated for, per notes, c.difficile colitis with fidaxomicin (NO colitis on scanned CT a/p from 12/01 & 12/11 so likely c.diff diarrhea NOT colitis.) and HIV regimen changed to Abacavir, dolutegravir & rilpivirine with AMBER on CKD.Readmit to [facility] from 12/30-01/09/2024 with anemia (Hgb 5.5) and [...] if had colonoscopy - sounds like at [facility] had EGD only (as both parents who are had colon cancer) - if not should be scheduled Instructions Date Instruction Additional Infor ciera Reports improvement with Mirtazapine and Trazodone Related to Insomnia, unspecified type Shows some improveme nt since started on Propranolol 60mg Related to Essential tremor improved O2 sat with out continues oxygenation. Continue with current regiment. smoker. on home O2. Related to Centrilobular emphysema Due to COPD/emphysem a. CT chest 2022: Moderate centrilobular and paraseptal emphysema in the background lung parenchyma. There is scarring in both lung apices. Currently stable on steroid based bronchodilators. O2 dependent due to chronic hypoxia, He is still smoking. Related to Chronic respiratory failure with hypoxia Continue with Vit B12. Related t o Anemia due to vitamin B12 deficiency, unspecified B12 deficiency type stable. Going to be seen by infectious disease in coming weeks Related to HIV disease Secondary to CKD IV, with PTH 200 and ALK 149. On Vit D Related to HPTH (hyperparathyroidism) None bleeding gastri tis, on pantoprazole with effectiveness Related to Gastroesophageal reflux disease without esophagitis Has mild hesitancy a nd nocturia x3. PSA WNL. Alpha joshua not being considered since his BP runs low and his at high risk for fall. Related to Benign prostatic hyperplasia, unspecified whether lower urinary tract symptoms present prior admit with [facility]/ischemic cardiomyopathy due to drug use (under different MRN). Diagnostic cardiac cath 01/25/2023: moderate non-obstructive coronary disease. Denies angina. On ASA and statin. Related to Coronary artery disease involving twenty-nine palms coronary artery of twenty-nine palms heart without angina pectoris With reduced ejectio n fraction s/t non-ischemic cardiomyopathy of unknown etiology. Echo : The LV systolic function is severely reduced . The left ventricular ejection fraction is 20-25 %. Currently on Torsemide 20mg Related to Heart failure with reduced ejection fraction (HFrEF, <= 40%) BP at goal of < 140/ 90 with diuretics. Euvolemic. 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 2.2. No electrolytes abnormalities. BP at goal. Continue with Torsemide 20mg daily Related to Chronic kidney disease, stage 4 (severe) CT head 2022: small foci of encephalomalacia [...] ataxia. Related to Encephalomalacia with cerebral infarction The patient has a lo ngstanding Hx of polysubstance use with underlying depressive mood. Has shown improvement in his mood and sleep pattern since he was started on Mirtazapine and Trazodone Related to MDD (major depressive disorder), recurrent episode, mild H/o polysubstance ab use, recently was switched to Seboxone that will be prescribed by the pain clinic, previously on Methadone for 14 years Related to Opioid dependence on agonist therapy MOCA . CT head 2022: small foci of encephalomalacia in the left parietal lobe + Mild atrophy + mild hydrocephalus + moderately severe microangiopathy most prominent in parietal lobe. He is symptomatic with visual perception deficit, confuses left and right and has optic ataxia. MOCA 21/30. CT head 2022: small foci of encephalomalacia in the left parietal lobe + Mild atrophy + mild hydrocephalus + moderately severe microangiopathy most prominent in parietal lobe. He is symptomatic with visual perception deficit, confuses left and right and has optic ataxia. Related to Mild cognitive impairment Trace was considered when in admission in 01/2023 with acute hypoxic & hypercarbic respiratory failure / COPD exacerbation / (+) PCR for enterovirus-rhinovirus / metabolic encephalopathy, requiring intubation for airway protection and respiratory failure. Has VNA for trach/wound care. Related to Status post tracheostomy improved O2 sat with out continues oxygenation. Continue with current regiment. Not a smoker. on home O2. Related to Chronic obstructive pulmonary disease with acute exacerbation Agreed with Proprano lol 60mg with two weeks follow up. Related to Essential tremor Doing much better af ter being treated with IV antibiotic. For future prevention, the plan is to try Propranolol 60mg with two weeks follow up. Related to Community acquired pneumonia due to Pneumococcus With baseline eGFR 2 6-30, Cr. 2.2. No electrolytes abnormalities. BP at goal. Continue with Torsemide 20mg daily Related to CKD (chronic kidney disease) stage 4, GFR 15-29 ml/min Doing well, noted im proved O2 sat without continues oxygenation. Continue with current regiment. Not a smoker. on home O2. Related to Centrilobular emphysema He reported having t rouble falling asleep [...] ASA. Related to Coronary artery disease involving twenty-nine palms coronary artery of twenty-nine palms heart without angina pectoris With baseline eGFR [...]
[2025-05-01 14:00] VITALS: BP 136/70; PULSE 100; O2SAT 96
--- NOTE | 2025-05-01 14:00 | MHC.OFFVIS ---
Vital Signs 05/01/25 14:00 BP 136/70 Pulse 100 Pulse Oximetry (%) 96 Intake Visit Reasons: MAT Allergies No Known Allergies Allergy (Verified 05/01/25 14:01) HPI Comments Details: A 64-year-old male presents for a follow-up visit r/t ANNITA in sustained remission with buprenorphine-naloxone 8-2 mg BID. Denies use of opiates, and other substances. Reports he stopped smoking cigarettes 3 months ago. [facility] Medical History Opioid use disorder COPD (chronic obstructive pulmonary disease) HIV (human immunodeficiency virus infection) Anemia CKD (chronic kidney disease) Acute hypoxic respiratory failure Respiratory failure Tachycardia Myocardial injury Pneumonia TERRY (obstructive sleep apnea) Pulmonary nodules Hepatitis C HIV disease COPD (chronic obstructive pulmonary disease) Social History Household Members: Unknown / Unable to assess Housing: Unknown / Unable to assess Do you presently have visiting nurse or other home services: No Alcohol intake: former Comment: Sitter at bedside Patient Tobacco Use Status: Current someday Tobacco user Tobacco use type: Cigarette Cigarette Packs Per Day: 1 Cigarettes Per Day: 4 Years Smoked: 30 Years Substance Use Type: Marijuana service: No Review of Systems Const All systems reviewed & are unremarkable except as noted in HPI and below Physical Exam Vital Signs: Last Vital Signs Pulse 100 05/01/25 14:00 BP 136/70 05/01/25 14:00 Pulse Ox 96 05/01/25 14:00 Const General: cooperative Assessment & Plan Assessment & Plan (1) Opioid use disorder in remission: Code(s): F11.91 - Opioid use, unspecified, in remission Category: Medical Plan The plan of care is to continue with buprenorphine-naloxone 8-2 mg BID and follow-up in 2 months or sooner. Patient Instructions: - Continue with buprenorphine-naloxone as prescribed. - Follow-up in 2 months or sooner if needed. - Call with questions, concerns, or to report side effects/new onset of symptoms to [facility]. - The patient verbalized understanding and agreed with plan of care. Coding Level of Care Code Est Pt Level 3 (72965) Diagnoses Opioid use disorder in remission F11.91
--- OUTSIDE RECORDS SUMMARY | 2025-05-01 17:03 | XMS_ITS | Clinical Summary ---
Author Organization [facility] Address 2 [facility] [place] [address] Phone Care Team Providers Care Benefits Assistant Name Role Phone Loreta Bhagat MD Primary Care Provider [phone] Allergies No known active allergies Medications abacavir [...] 1 Tablet by mouth daily. 0 Active bictegravir-emt ricitabine-teno fovir alafenamide (Biktarvy) 50-200-25 mg per tablet Take [...] mouth every 6 hours as needed. Active polyethylene glycol (MIRALAX) 17 gram packet [...] Take 2 Capsules by mouth daily. Active pantoprazole (PROTONIX) 40 mg EC tablet Take 1 tablet (40 mg total) by mouth 2 (two) times a day before meals. Take 1 Tablet by mouth 2 times daily. 180 tablet 3 5 Active pantoprazole (PROTONIX) 40 mg EC tablet Take 1 Tablet by mouth 2 times daily. 4 04/18/20 25 Discontinu ed(Reorder ) Active Problems Problem Noted Date Diagnosed Date Polysubstance abuse ([facility] V24, [facility] V28) 1 Overview (05/26/2024): Heroin/ cocaine/ tobacco HFrEF (heart failure with re duced ejection fraction) ([facility] V24, [facility] V28) 04/24/2024 Overview (05/26/2024): Last Assessment & Plan: Patient was documented with a history of HFrEF with some regional wall motion abnormalities. He is not on guideline directed therapy at this time Paar the problem is I do not have a full set of records to see why the medical therapy that was instituted by [facility] heart failure clinic has not [...] directed therapy. Stage 3a chronic kidney disease ([facility] V24, [facility] V28) 04/24/2022 Dyspnea 10/29/2021 Overview (05/26/2024): Last [...] tremor 09/29/2021 Overview (05/26/2024): Dr. Jacobsen Cardiomyopathy ([facility] V24, [facility] V28) 2021 Overview (05/26/2024): Last Assessment & [...] routine medical care. AMBER (acute kidney injury) ([facility] V24) 04/21/20 Community acquired pneumonia 04/21/2020 Hyperkalemia 04/21/2020 Lesion of lung 04/21/2020 NSTEMI (non-ST elevated myoc ardial infarction) ([facility] V24, [facility] V28) 04/21/2020 Overview (05/26/2024): Last Assessment & Plan: Patient had a history of an NSTEMI with no significant obstructive coronary artery disease. Non-healing non-surgical wound 06/16/2018 Overview (05/26/2024): Chronic heal Pulmonary nodules 06/16/2018 Anemia 02/22/2014 Thalassemia minor 12/09/2012 Chronic hepatitis C ([facility] V24, [facility] V28) 0 10/25/2012 HIV (human immunodeficiency virus infection) ([facility] V24, [facility] V28) 10/25/2012 Overview (05/26/2024): longstanding untreated as of 01/13/18 Other emphysema ([facility] V24, [facility] V28) 10/25 Overview (05/26/2024): Pneumonia x 2 hospitalized Encounters Date Type Department Care Team Description 01/30/2025 Telephone Adult Medicine [address] [address] Loreta Bhagat MD from Last 3 Months Immunizations Name Administration [...] PLUG/STOP-CUFFLESS TRACH TUBE OTHER SURGICAL HISTORY PROCEDURE: MO EGD PERCUTANEOUS PLACEMENT GASTROSTOMY TUBE CATARACT EXTRACTION PROCEDURE: HISTORICAL CATARACT REMOVAL; COMMENT: bilateral OTHER SURGICAL HISTORY 2015 PROCEDURE: ---- OTHER ----; COMMENT: bronchoscopy Medical History Medical History Date Comments HIV (human immunodeficiency virus infection) ([facility] V24, [facility] V28) 10/25/2012 DX:HIV (human im munodeficiency virus infection) (HCC) COPD (chronic obstructive pu lmonary disease) ([facility] V24, [facility] V28) 10/25/2012 DX:COPD (chronic o bstructive pulmonary disease) (HCC) Chronic hepatitis C ([facility] V24, [facility] V28) 10/25/2012 DX:Chronic hepatitis C (HCC) Historical Medical DX 11/08/2012 DX:Family history of sickle cell anemia Family history of colon cancer 11/08/2012 D X:Family history of colon cancer Thalassemia minor 12/09/2012 DX:Thalassemia minor History of cocaine abuse ([facility] V24, [facility] V28) DX:History of cocaine abuse (HCC); COMMENT: u tox pos 01/18/14 at [facility] Polysubstance abuse ([facility] V24, [facility] V28) DX:Polysubstance abuse (HCC) ; COMMENT: u tox pos 01/18/14 at [facility] Pulmonary nodules 06/16/2018 DX:Pulmonary n odules Non-healing [...] Date Smoking Tobacco: Every Day Cigarettes 0.3 50.7 Started: 08/09/1974 Smokeless Tobacco: Never Alcohol Use [...] 2019 Abdominal Aortic Aneurysm (AAA) Screen 07/17/2022 Medicare Annual Wellness Visit 07/17/2022 Social Influencers of Health Screening 07/17/2022 Colorectal Cancer Screening: Colonoscopy 07/18/2024 07/18/2014 Depression Screening 08/09/2024 12/21/2022 Falls Risk Assessment 12/09/2024 Hypertension/CHF/CAD Annual BMP Blood Test 02/12/2025 02/13/2024 COVID-19 Vaccine ( season) 2025 2021, 08/06/2021, 01/10/2021, Additional history exists Influenza Vaccine (#1) 2025 , 06/12/2015, 07/04/2014 Pneumococcal Vaccine: 50+ Years (3 [...] Results * Annual BMP Blood Test (02/13/2024) [facility] Annual BMP Blood Test Abstracted [facility] Provider HEALTH MAINTENANCE Final Result * Lipid panel (09/14/2023) [facility] LDL/HDL Ratio 2 0 - 4 Triglycerides 66 0 - 150 mg/dL Cholesterol 113 0 - 200 mg/dL HDL 57 >=40 mg/dL LDL Cholesterol 43 0 - 100 mg/dL Blood Venous blood specimen / Unknown Result [facility] Provider LAB BLOOD ORDERABLES Nicky l Result * Depression Screening (12/21/2022) [facility] Depression Screening Abstracted Result [facility] Provider HEALTH MAINTENANCE Final Result * Hepatitis C Screening (08/15/2021) [facility] Hepatitis C Screening Abstracted [facility] Provider HEALTH MAINTENANCE Final Result * Colonoscopy (07/18/2014) [facility] Colonoscopy No interpretation with ,abstracted Anatomical Region Laterality Modality Other [facility] Provider HEALTH MAINTENANCE Final Result from Last 3 Months or Most Recently Relevant to Health Maintenance Insurance [place]ICA[place] - [place] [facility] MEDIC[employer]AGE Advance Directives Documents on File Type Date Recorded 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
--- OUTSIDE RECORDS SUMMARY | 2025-05-01 17:03 | XMS_ITS | Encounter Summary ---
Author Organization [facility] Address [address] [place] [address] Phone Care Team Providers Care Retail Client Solutions Consultant Name Role Phone Nataliia Arroyo MD Primary Care Provider + [phone] Encounter Details Date Type Department Care Team (Late st Contact Info) Description 04/18/2024 Documentation Only [facility] [address] [place] [address] Angel Harding [address] [phone] Social History Tobacco Use Types Packs/Day Years Used Date Smoking Tobacco: Never Assessed Sex and Gender Information Value Date Recorded Sex Assigned at Not on file Legal Sex Male 8:22 AM EDT Gender Identity Not on file Sexual Orientation Not on file documented as of this encounter Plan of Treatment Upcoming Encounters Date Type Department Care Team (Late st Contact Info) Description 05/23/2025 2:15 PM EDT Office Visit [facility] [address] [place] [address] Ruy Mack DO [address] [facility] [address] [place] [address] documented as of this encounter Visit Diagnoses Not on filedocumented in this encounter Care Teams Retail Client Solutions Consultant Relationship Specialty Start Date End Date Nataliia Arroyo MD [address] [facility] [address] [place], [place] PCP - General Internal Medicine 11/08/24 documented as of this encounter
--- OUTSIDE RECORDS SUMMARY | 2025-05-01 17:03 | XMS_ITS | Encounter Summary ---
Author Organization [facility] Address [address] [place] [address] Phone Care Team Providers Care Machine Operations Supervisor Name Role Phone Nataliia Arroyo MD Primary Care Provider + [phone] Encounter Details Date Type Department Care Team (Late st Contact Info) Description 07/07/2024 Documentation Only [facility] [address] [place] [address] Ruy Mack DO [address] [facility] [address] [place] [phone] Social History Tobacco Use Types Packs/Day Years [...] Visit [facility] [address] [place] [phone] Ruy Mack DO [address] [facility] [address] [place] [address] documented as of this encounter Visit Diagnoses Not on filedocumented in this encounter Care Teams Machine Operations Supervisor Relationship Specialty Start Date End Date Nataliia Arroyo MD [address] [facility] [address] [place], [place] PCP - General Internal Medicine 11/08/24 documented as of this encounter
--- OUTSIDE RECORDS SUMMARY | 2025-05-01 17:03 | XMS_ITS | Clinical Summary ---
Author Organization [facility], Address [address] [place] [address] [place] [address] Phone Care Team Providers Care Brush Head Maker Name Role Phone Nataliia Arroyo MD Primary Care Provider + [phone] Allergies No known active allergies Medications aspirin [...] day if needed Active epoetin kellen (EPOGEN,PROCRIT) 72784 UNIT/ML injectionIndicat ions:Anemia due to Renal Failure [...] Overview (06/13/2020): longstanding untreated as of 01/13/18 Immunizations Immunization Administration Dates Next Due Hepatitis [...] Visit [facility], [address] [place] [phone] Ruy Mack, DO [address] [place] [phone] Health Maintenance Due Date Last Done Comments Colorectal Cancer Screening: Annual FOBT 12/09/2008 Colorectal Cancer Screening: Colonoscopy 12/09/2008 Colorectal Cancer Screening: Sigmoidoscopy 12/09/2008 Hepatitis B Vaccine (1 of 3 - Risk 3-dose series) 2019 10/26/2012, 10/26/2012 Influenza Vaccine (#1) 2025 , 08/06/2021, 06/14/2019, Additional history exists Pneumococcal Vaccine: 50+ Ye ars (3 of 3 - PCV20 or PCV21) 09/10/2026 09/10/2021, 12/08/2012 Pneumococcal Vaccine: Peds ( 0 to 5 Years) and At-Risk Patients (6 to 49 Years) Discontinued 09/10/2021, 12/08/2012 Insurance [facility] Healthnet [facility] ([id number]) [address] [place] [address] Care Teams Brush Head Maker Relationship Specialty Start Date End Date Nataliia Arroyo MD [address] [place] [address] [place] PCP - General Internal Medicine 11/08/24
--- OUTSIDE RECORDS SUMMARY | 2025-05-01 17:03 | XMS_ITS ---
Author Organization [facility] Care Team Providers Care Electric Vehicle Electrician Name Role Phone Ida Carrera Unavailable Unavailable Bro Ponce Unavailable Unavailable Bria Gama Unavailable Unavailable Tas, Farzana Unavailable Unavailable Tabba, Dejesus Unavailable Unavailable Barney, Cheyenne Unavailable Unavailable Chandler, Juan Unavailable Unavailable Luis Armando Clifford Unavailable Unavailable Stenehem, Jun Unavailable Unavailable Allergies and adverse reactions No Known Allergies Care Team Name Role Address Phone Organization Dates Ida Carrera [facility] Christy [facility] [place] 12/22/2023 - 03/15/2024 Bro Ponce [facility] Federico untain at [place] 12/22/2023 - 03/15/2024 Bria Gama [address] [facility] [address], [place], [address], [facility] (Office): [facility] 12/22/2023 - 03/15/2024 Farzana Martínez [facility] [place] ain at [place] 12/22/2023 - 03/15/2024 Oleg Laura [facility] [place] [facility] [place] 12/22/2023 - 03/15/2024 Cheyenne Barney [facility] Bear Sil ntain at [place] 12/22/2023 - 03/15/2024 Juan Arteaga [facility] Bear [place] untain at [place] 12/22/2023 - 03/15/2024 Luis Armando Clifford [facility] at [place] 12/22/2023 - 03/15/2024 Jun Yeboah [facility] [place] 12/22/2023 - 03/15/2024 Immunizations Immunization Status Vaccine Details Vaccine Code CodeSystem Date Notes Prevnar 13 completed pneumococcal conjugate vaccine, 13 valent 133 CVX created date: 11/28/2023 administere d date: 12/08/2012 DTAP completed diphtheria, teta nus toxoids and acellular pertussis vaccine, 5 pertussis antigens 106 CVX created date: 11/28/2023 administere d date: 10/13/2022 [id number] completed pneumococcal polysaccharide vaccine, 23 valent 33 CVX created date: 11/28/2023 administere d date: 09/10/2021 COVID-19 Vaccine Dose 1 completed unknown vaccine or immune globulin Mfg: Moderna 999 CVX created date: 11/28/2023 administere d date: 12/04/2020 COVID-19 Vaccine Dose 2 completed unknown vaccine or immune globulin Mfg: Moderna 999 CVX created date: 11/28/2023 administere d date: 01/10/2021 COVID-19 Vaccine Single Dose completed unknown vaccine or immune globulin Mfg: pfizer Bivalent 999 CVX created date: 11/28/2023 administere d date: 08/25/2022 COVID-19 Vaccine Single Dose completed unknown vaccine or immune globulin Mfg: pfizer 999 CVX created date: 11/28/2023 administere d date: 2021 COVID-19 Vaccine Single Dose completed unknown vaccine or immune globulin Mfg: Moderna 999 CVX created date: 11/28/2023 administere d date: 08/06/2021 Mental Status Section Date Assessment Total Score Description 03/15/2024 BIMS 15 cognitively int act CAM 0 No delirium ind icated PHQ-9 00 12/31/2023 CAM 0 No delirium ind icated Problems Problem # Description Date of onset Resolved Date Code CodeSystem Concern Status 1 DELUSIONAL DISORDERS [address] active 2 GENERALIZED ANXIETY DISORDER [address] active 3 PERSISTENT MOOD [AFFECTIVE] DISORDER, UNSPECIFIED [address] active 4 CHRONIC PULMONARY EDEMA [address] active 5 RESTLESSNESS AND AGITATION [address] active 6 SEVERE SEPSIS WITH SEPTIC SHOCK [address] active 7 UNSPECIFIED ABDOMINAL PAIN [address] active 8 PNEUMONIA, UNSPECIFIED ORGANISM [address] active 9 CHRONIC KIDNEY DISEASE, STAGE [address]PECIFIED [address] active 10 ESSENTIAL (PRIMARY) HYPERTENSION [address] active 11 SEPSIS, UNSPECIFIED ORGANISM [address] active 12 ACUTE RESPIRATORY FAILURE WITH HYPOXIA [address] active 13 ANEMIA, UNSPECIFIED [address] active 14 ANXIETY DISORDER, UNSPECIFIED [address] active 15 CHRONIC OBSTRUCTIVE PULMONARY DISEASE, UNSPECIFIED [address] active 16 CRITICAL ILLNESS MYOPATHY [address] active 17 DEPENDENCE ON RESPIRATOR [VENTILATOR] STATUS 024 12/22/[address] completed 18 ENCOUNTER FOR ATTENTION TO GASTROSTOMY [address] active 19 ENCOUNTER FOR ATTENTION TO TRACHEOSTOMY [address] active 20 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 [address] active 21 ILEUS, UNSPECIFIED [address] active 22 INFLUENZA DUE TO OTHER IDENTIFIED INFLUENZA VIRUS WITH OTHER RESPIRATORY MANIFESTATIONS [address] active 23 OBSTRUCTIVE SLEEP APNEA (ADULT) (PEDIATRIC) [address] active 24 SOLITARY PULMONARY NODULE [address] active 25 UNSPECIFIED VIRAL HEPATITIS C WITHOUT HEPATIC COMA [address] active Reason for Referral No Reasons for Referral Entered Social History Social History Observation Description Start Date End Date Code Code System Current Smoking Status Tobacco smoking consumption unknown 019241570 SNOMED CT Sex Assigned At Male 1960 [address]-[facility] Gender Identity Male 22648573992213 [address] Sexual Orientation Heterosexual (finding) 74730398 SNOMED CT Vital Signs Code Code System Vitals Name Values and Units Timing Information 8462-4 [facility] Blood Pressure-Diastolic Value=87 Un its=mmHg 03/15/2024 8480-6 [facility] Blood Pressure-Systolic Txgqk=285 Un its=mmHg 03/15/2024 8310-5 [facility] Body Temperature Value=97.7 Units= F 03/15/2024 8867-4 [facility] Heart rate Value=84.0 Units=/min 02/2024 39768-4 [facility] O2 % BldC Oximetry Value=95.0 Units= % 03/15/2024 08680-5 [facility] Pain Level Value=2.0 03/15/2024 9279-1 [facility] Respiratory Rate Value=18.0 Units=/m in 03/14/2024 80721-3 [facility] Weight Mqkua=978.4 Units=Lbs 12/2023 2339-0 [facility] Blood Sugar Rreyx=666.0 Units=mg/dL 12/22/2023 8302[facility] Height Value=67.0 Units=Inches 12/22/2023
--- OUTSIDE RECORDS SUMMARY | 2025-05-01 17:03 | XMS_ITS | Clinical Summary ---
Author Organization [facility] Address [address] [address] Phone Care Team Providers Care Glove Printer Name Role Phone Loreta Bhagat MD Primary Care Provider [phone] Social History Tobacco Use Types Packs/Day Years [...] file Medical Devices Not on file Insurance Personal Capital [employer] [facility] [facility] [employer] [facility] ALL[facility] [place] [address] [place] [address] [facility] Newtricious [facility] ACO [facility] ACO Care Teams Glove Printer Relationship Specialty Start Date End Date Loreta Bhagat MD [address] [place] [address] PCP - General 03/06/24 Additional Source Comments The information contained in this document represents components of the legal health record. It is not the complete legal health record.[facility]
--- OUTSIDE RECORDS SUMMARY | 2025-05-01 17:03 | XMS_ITS | Encounter Summary ---
Author Organization [facility], Address [address] [place] [address] Phone Care Team Providers Care Records Management Manager Name Role Phone Nataliia Arroyo MD Primary Care Provider + [phone] Encounter Details Date Type Department Care Team (Late st Contact Info) Description 07/07/2024 Documentation Only [facility] [address] [place] [address] Ruy Mack DO [address] [facility] [address] [place]cel[place]ña [place] [phone] Social History Tobacco Use Types Packs/Day Years [...] Visit [facility] [address] [place] [phone] Ruy Mack DO [address] [facility] [address] [place] [address] documented as of this encounter Visit Diagnoses Not on filedocumented in this encounter Care Teams Records Management Manager Relationship Specialty Start Date End Date Nataliia Arroyo MD [address] [facility] 200 [place], [place] PCP - General Internal Medicine 11/08/24 documented as of this encounter
== END 2025-05-01 14:22 | disposition home or self-care (01) ==
LOC: HO.HCC 13:51
PROVIDERS: PCP Internal Medicine; Visit Provider Clinical Nurse Specialist Psychiatric/Mental Health
DX: F11.91 Opioid use, unspecified, in remission (principal)
CPT/HCPCS: 99213

== ENCOUNTER → 2025-05-01 13:51 | Outpatient (BNVA) | payer MEDICARE, SELFPAY | PROVIDERS: PCP Internal Medicine; Visit Provider Clinical Nurse Specialist Psychiatric/Mental Health | DX: F11.91 Opioid use, unspecified, in remission (principal); Z79.899 Other long term (current) drug therapy | CPT/HCPCS: 99212 ==

== ENCOUNTER 2025-06-07 10:10 | Outpatient (AMB) | payer MEDICARE, SELFPAY ==
--- NOTE | 2025-06-07 11:13 | A.OFFVIS_ITS ---
Vital Signs 3 06/07/25 12:07 Height 5 ft 8 in Weight 148 lb 2.41 oz BMI 22.5 BP 138/86 Blood Pressure Location Rt brachial Position Sitting Pulse 98 Intake Visit Reasons: Colonoscopy screening Intake Note: New patient in office today in colonoscopy screening. CC: Patient reports that he has a lot of health conditions but did not get to specify if GI related. Last colonoscopy about 20 years ago per patient. He states that the last 2 times he tried to have a colonoscopy screening ended up admitted to hospital and they were not able to perform colo. Telecommunication Tower Technician Required: No Accompanied by: Self / Same As Patient Allergies No Known Allergies Allergy (Verified 06/28/25 14:06) HPI HPI Colonoscopy screening: Details: 64-year-old male here for preprocedural meeting to discuss a screening colonoscopy. He is referred by a provider at [facility]. PMX COPD Chronic respiratory failure Smoker Suboxone therapy Encephalomalacia with CVA HIV Heart failure with a reduced ejection fraction Coronary artery disease Hypertension Hyperparathyroidism Chronic hepatitis-B BPH Chronic kidney disease stage 4 Depression with insomnia Mild cognitive impairment GERD * SURGICAL HISTORY Status post tracheostomy COlonoscopy 10 yeas ago [facility] or [facility] ALLERGIES: NKDA * [facility] LABS: Laboratory Tests 12/28/24 01/18/25 11:17 13:10 WBC 6.4 Hgb 10.7 L Hct 34.4 L D MCV 71.5 L MCH 22.2 L Plt Count 164 Estimated GFR 19 Total Bilirubin 0.3 AST 35 ALT 32 Alkaline Phosphatase 201 H B-Natriuretic Peptide 171 H C. difficile Tox B Gene POSITIVE A* TODAY'S VISIT Prior scope: He is uncertain whether this was done at [facility] or [facility] and they did not well explain his findings/results. Bowel or upper GI:No Cardiac or rosp:TERRY, hx severe resp failure/flash pulm edema after prepping, severe COPD with intermittent oxygen dependence. anesthesia and sedation problems:No ID: HIV, Hep C s/p SVR, Chronic Hep B FHX: Both mother and fater had CRC in late 60's. [facility] Medical History TERRY (obstructive sleep apnea) Hepatitis C Respiratory failure Pneumonia COPD exacerbation Pneumonia Critical illness myopathy COVID-19 Opioid use disorder COPD (chronic obstructive pulmonary disease) HIV (human immunodeficiency virus infection) Anemia CKD (chronic kidney disease) Acute hypoxic respiratory failure Tachycardia Myocardial injury Pneumonia Pulmonary nodules HIV disease COPD (chronic obstructive pulmonary disease) Surgical History H/O colonoscopy Status post tracheostomy Family History Mother Colon cancer Father Colon cancer Prostate cancer Kidney failure Brother Pancreatic cancer Paternal Aunt Cancer Social History Household Members: Unknown / Unable to assess Housing: Unknown / Unable to assess Do you presently have visiting nurse or other home services: No Alcohol intake: former Comment: Sitter at bedside Patient Tobacco Use Status: Current someday Tobacco user Tobacco use type: Cigarette Cigarette Packs Per Day: 1 Cigarettes Per Day: 4 Years Smoked: 30 Years Substance Use Type: Marijuana service: No Review of Systems Const Denies fatigue, Denies fever(s), Denies night sweats, Denies poor appetite and Denies weight loss Eyes Reports requires corrective lenses ENT Reports Normal hearing present, Denies dental pain, Denies dysphagia, Denies hearing loss, Denies mouth pain, Denies odynophagia, Denies throat swelling, Denies tongue swelling and Reports other (Dentition adequate) GI Details: Denies abdominal pain, Denies melena, Denies bloating, Denies hematochezia, Denies constipation, Denies GI cramping, Denies dysphagia, Denies excessive flatus, Denies early satiety, Denies heartburn, Denies diarrhea, Denies nausea, Denies odynophagia, Denies vomiting and Denies hematemesis Skin/Breast Denies pruritus, Denies lesions, Denies rash and Denies jaundice Neuro Reports Normal hearing present and Denies Abnormal speech present Endo Denies fatigue Aller/Immun Denies throat swelling and Denies tongue swelling Physical Exam Vital Signs: Last Vital Signs Pulse 98 06/07/25 12:07 BP 138/86 06/07/25 12:07 BMI result Body Mass Index 22.5 Const General: cooperative, no acute distress, well developed and well groomed Nutritional Appearance: well nourished, obese and overweight Orientation/consciousness: oriented to person, oriented to place and oriented to time Limitations: No language barrier, ambulation with cane, ambulation with walker and wheelchair HEENT Head: Yes normocephalic and Yes atraumatic Eyes General: appearance normal, both eyes and all related structures Pupils: Equal, round and reactive pupils present Neck Neck: Yes normal visual inspection and Yes no lymphadenopathy Thyroid: Thyroid normal Chest Other: Increased a/P diameter Resp Effort & Inspection: normal respiratory effort, able to speak in complete sentences and prolonged expiratory phase Auscultation: wheezes expiratory wheezes and diminished lung sounds on the right Cardio Other: However heart sounds quite distant over hyperinflated chest Rate: regular rate Rhythm: regular rhythm Heart sounds: Normal, physiologic split S2 sound present Peripheral pulses: radial pulses present and posterior tibial pulses present GI Inspection: No distended and No Abdominal panniculus present Palpation (GI): Soft to palpation, nontender, no guarding, not rigid and No hepatosplenomegaly present Percussion: Yes normal to percussion Auscultation: normal bowel sounds Rectal Exam - Male: Yes deferred Abdomen image: 2 1. chest tube scars 2. Back/Spine/Pelvis Other: Thoracic levoscoliosis with marked muscle spasm under the right shoulder blade Skin General skin exam: no rashes or lesions noted, turgor normal, skin not dry, no jaundice, No spider nevi and no striae Rashes: no rashes Nails: normal Neuro General: oriented to person, oriented to place and oriented to time Cranial nerves: Yes Equal, round and reactive pupils present and Yes Normal hearing present Speech: No Abnormal speech present Motor exam (neuro): Tremors during motor activity present Extrem General: Yes normal to inspection, No clubbing, No cyanosis and No edema Psych Thought process: Normal thought process present and not confabulating Thought content: Normal thought content present Insight: Good insight present (Psych) Judgement: Good judgement present (Psych) Assessment & Plan Assessment & Plan (1) HIV disease: Code(s): B20 - Human immunodeficiency virus [HIV] disease Category: Medical (2) Hepatitis C: Code(s): B19.20 - Unspecified viral hepatitis C without hepatic coma Category: Medical (3) TERRY (obstructive sleep apnea): Comment: severe Code(s): G47.33 - Obstructive sleep apnea (adult) (pediatric) Category: Medical (4) COPD with acute exacerbation: Code(s): J44.1 - Chronic obstructive pulmonary disease with (acute) exacerbation Category: Medical (5) Chronic, continuous use of opioids: Comment: SUBOXONE THERAPY Code(s): F11.90 - Opioid use, unspecified, uncomplicated Category: Medical (6) Heart failure with reduced ejection fraction: Comment: 2022 Stress test [facility] Summary Severely reduced LV systolic function (EF 25-30%). Severe hypokinesis of the basal segments with relative preservation of apical wall motion. Grade I (mild) LV diastolic dysfunction with impaired relaxation. Normal LV cavity size. Normal LV wall thickness. Normal RV systolic function. Normal RV size. No clinically significant valvular abnormalities. Code(s): I50.20 - Unspecified systolic (congestive) heart failure Category: Medical (7) Chronic hepatitis B: Code(s): B18.1 - Chronic viral hepatitis B without delta-agent Category: Medical (8) Chronic kidney disease, stage 4 (severe): Code(s): N18.4 - Chronic kidney disease, stage 4 (severe) Category: Medical (9) Chronic respiratory failure: Code(s): J96.10 - Chronic respiratory failure, unspecified whether with hypoxia or hypercapnia Category: Medical Plan Prior scope: He is uncertain whether this was done at [facility] or [facility] and they did not well explain his findings/results. Bowel or upper GI:No Cardiac or rosp:TERRY, hx severe resp failure/flash pulm edema after prepping, severe COPD with intermittent oxygen dependence. anesthesia and sedation problems:No ID: HIV, Hep C s/p SVR, Chronic Hep B FHX: Both mother and fater had CRC in late 60's. Orders: Referrals 2 GI Procedure Notification Z01.818 - Encounter for other preprocedural examination, G47.33 - Obstructive sleep apnea (adult) (pediatric), J44.1 - Chronic obstructive pulmonary disease with (acute) exacerbation, J96.10 - Chronic respiratory failure, unspecified whether with hypoxia or hypercapnia, N18.4 - Chronic kidney disease, stage 4 (severe), B18.1 - Chronic viral hepatitis B without delta-agent, B19.20 - Unspecified viral hepatitis C without hepatic coma, B20 - Human immunodeficiency virus [HIV] disease, I50.20 - Unspecified systolic (congestive) heart failure, F11.90 - Opioid use, unspecified, uncomplicated Medications: New 2 polyethylene glycol 3350 (Miralax) 238 grams PO ONCE 238 grams 0RF colonoscopy prep 1 day Coding Level of Care Code New Pt Level 3 (43249) Diagnoses HIV disease B20 Hepatitis C B19.20 TERRY (obstructive sleep apnea) G47.33 COPD with acute exacerbation J44.1 Chronic, continuous use of opioids F11.90 Heart failure with reduced ejection fraction I50.20 Chronic hepatitis B B18.1 Chronic kidney disease, stage 4 (severe) N18.4 Chronic respiratory failure J96.10
[2025-06-07 12:07] VITALS: BP 138/86; PULSE 98; BMI 22.5
--- OUTSIDE RECORDS SUMMARY | 2025-06-07 12:17 | XMS_ITS | Encounter Summary ---
Author Organization [facility] Address [address] [place] [address] Care Team Providers Care Kitchen Designer Name Role Phone Maryjo Reina DO Primary Care Pro vider Unavailable Marisol Valencia PA-C Primary Care Provider Stephan Carson MD Unavailable Unavailable Loreta Bhagat MD Primary Care Provider [phone] Cyndy Jama NP Unavailable [phone] Jose Delgado MD Unavailable [phone] Encounter Details Date Type Department Care Team Description 04/03/2020 Hospital Medical Records [address] [place] [address] Social History Tobacco Use Types Packs/Day Years [...] filedocumented in this encounter Care Teams Kitchen Designer Relationship Specialty Start Date End Date Maryoj Reina DO PCP - General Internal Medicine 07/05/13 07/23/21 Marisol Valencia PA-C PCP - General Internal Medicine 07/24/21 08/31/21 Loreta Bhagat MD [address] [place] [address] PCP - General Internal Medicine 09/01/21 Stephan Mejia MD Supervisor Coffee Cardiovascular Disease 07/30/21 4 Cyndy Jama NP [address] [place] [address] Nurse Practitioner Cardiology 07/23/22 Jose Delgado MD [address] [place] [address] [place] [address] Supervisor Coffee Cardiovascular Disease 04/24/24 documented as of this encounter
--- OUTSIDE RECORDS SUMMARY | 2025-06-07 12:17 | XMS_ITS | Encounter Summary ---
Author Organization [facility] Address [address] [place] [address] Care Team Providers Care Construction Mgr Name Role Phone Maryjo Reina DO Primary Care Pro vider Unavailable Marisol Valencia PA-C Primary Care Provider U Stephan Muñoz MD Unavailable Unavailable Loreta Bhagat MD Primary Care Provider [phone] Cyndy Jama NP Unavailable [phone] Jose Delgado MD Unavailable [phone] Encounter Details Date Type Department Care Team Description 02/20/2014 Orders Only Adult Medicine [address] [address] Maryjo Reina DO Abnormal CXR (Primary Dx); LOERA (dyspnea on exertion); COPD (chronic obstructive pulmonary disease); HIV (human immunodeficiency virus infection) Social History Tobacco Use Types Packs/Day Years [...] as of this encounter Visit Diagnoses Diagnosis Abnormal CXR- Primary Other nonspecific abnormal finding of lung field LOERA (dyspnea on exertion) Other dyspnea and respiratory abnormality COPD (chronic obstructive pulmonary disease) (HCC) Chronic airway obstruction, not elsewhere classified HIV (human immunodeficiency virus infection) (HCC) Asymptomatic human immunodeficiency virus (HIV) infection status documented in this encounter Care Teams Construction Mgr Relationship Specialty Start Date End Date Maryjo Reina DO PCP - General Internal Medicine 07/05/13 07/23/21 Marisol Valencia PA-C PCP - General Internal Medicine 07/24/21 08/31/21 Loreta Bhagat MD [address] [place] [address] PCP - General Internal Medicine 09/01/21 Stephan Mejia MD Gold Leaf Roller Cardiovascular Disease 07/30/21 4 Cyndy Jama NP [address] [place] [address] Nurse Practitioner Cardiology 07/23/22 Jose Delgado MD [address] [place] [address] [address] [place] [address] Gold Leaf Roller Cardiovascular Disease 04/24/24 documented as of this encounter
--- OUTSIDE RECORDS SUMMARY | 2025-06-07 12:17 | XMS_ITS | Encounter Summary ---
Author Organization [employer] [facility] Address [address] [place] [address] Care Team Providers Care Account Collector Name Role Phone Maryjo Reina DO Primary Care Pro vider Unavailable Marisol Valencia PA-C Primary Care Provider U Stephan Muñoz MD Unavailable Unavailable Loreta Bhagat MD Primary Care Provider [phone] Cyndy Jama NP Unavailable [phone] Jose Delgado MD Unavailable [phone] Encounter Details Date Type Department Care Team Description 11/10/2013 Kettle Tender Report Medical Records [address] [place] [address] Lanre Tanner, DPM Social History Tobacco Use [...] on filedocumented in this encounter Care Teams Account Collector Relationship Specialty Start Date End Date Maryjo Reina DO PCP - General Internal Medicine 07/05/13 07/23/21 Marisol Valencia PA-C PCP - General Internal Medicine 07/24/21 08/31/21 Loreta Bhagat MD [address] [place] [address] PCP - General Internal Medicine 09/01/21 Stephan Mejia MD Dough Cutting Machine Operator Cardiovascular Disease 07/30/21 4 Cyndy Jama NP [address] [place] [address] Nurse Practitioner Cardiology 07/23/22 Jose Delgado MD [address] [place] [address] [address] [place] [address] Dough Cutting Machine Operator Cardiovascular Disease 04/24/24 documented as of this encounter
--- OUTSIDE RECORDS SUMMARY | 2025-06-07 12:17 | XMS_ITS | Encounter Summary ---
Author Organization [facility] Address [address] [place] [address] Care Team Providers Care Women'S Activities Adviser Name Role Phone Maryjo Reina DO Primary Care Pro vider Unavailable Marisol Valencia PA-C Primary Care Provider Stephan Carson MD Unavailable Unavailable Loreta Bhagat MD Primary Care Provider [phone] Cyndy Jama NP Unavailable [phone] Jose Delgado MD Unavailable Reason for Visit * Reason Onset Date Comments Faxed Refill 08/31/2019 Encounter Details Date Type Department Care Team Description 08/31/2019 Refill Adult Medicine [address] [id number] Maryjo Reina DO Faxed Refill Social History Tobacco Use Types [...] encounter Miscellaneous Notes * Telephone Encounter - Ileana Menard - 08/31/2019 11:17 AM EST Patient would like script to be: E-PRESCRIBED/FAXED TO PHARMACY WHEN WAS THE PATIENT'S LAST APPOINTMENT IN ADULT MEDICINE? 12/21/18 WHEN WAS THE LAST TIME THE PATIENT SAW THEIR PCP? Same as above Does patient have an upcoming appointment? No-unable to reach left [facility] to call for appointment due to [...] N/A Patients current insurance carrier is: Payor: [employer] FFS / Plan: [employer] [facility] / Product Type: MEDICAID RISK documented in this encounter Plan of Treatment Not on file documented as of this encounter Visit Diagnoses Not on filedocumented in this encounter Care Teams Women'S Activities Adviser Relationship Specialty Start Date End Date Maryjo Reina DO PCP - General Internal Medicine 07/05/13 07/23/21 Marisol Valencia PA-C PCP - General Internal Medicine 07/24/21 08/31/21 Loreta Bhagat MD [address] [place] [address] PCP - General Internal Medicine 09/01/21 Stephan Mejia MD Equipment Worker Cardiovascular Disease 07/30/21 4 Cyndy Jama NP [address] [place] [address] Nurse Practitioner Cardiology 07/23/22 Jose Delgado MD [address] [place] [address] [address] [place] [address] Equipment Worker Cardiovascular Disease 04/24/24 documented as of this encounter
--- OUTSIDE RECORDS SUMMARY | 2025-06-07 12:17 | XMS_ITS | Encounter Summary ---
Author Organization [facility] Address [address] [place] [address] Care Team Providers Care Restaurant Server Name Role Phone Maryjo Reina DO Primary Care Pro vider Unavailable Marisol Valencia PA-C Primary Care Provider U Stephan Muñoz MD Unavailable Unavailable Loreta Bhagat MD Primary Care Provider [phone] Cyndy Jama NP Unavailable [phone] Jose Delgado MD Unavailable [phone] Encounter Details Date Type Department Care Team Description 09/07/2013 Release of Information Medical Records [address] [place] [address] Abstract, Provider Social History Tobacco Use Types [...] filedocumented in this encounter Care Teams Restaurant Server Relationship Specialty Start Date End Date Maryjo Reina DO PCP - General Internal Medicine 07/05/13 07/23/21 Marisol Valencia PA-C PCP - General Internal Medicine 07/24/21 08/31/21 Loreta Bhagat MD [address] [place] [address] PCP - General Internal Medicine 09/01/21 Stephan Mejia MD Canvass Manager Cardiovascular Disease 07/30/21 4 Cyndy Jama NP [address] [place] [address] Nurse Practitioner Cardiology 07/23/22 Jose Delgado MD [address] [place] [address] [place] [address] Canvass Manager Cardiovascular Disease 04/24/24 documented as of this encounter
--- OUTSIDE RECORDS SUMMARY | 2025-06-07 12:17 | XMS_ITS | Encounter Summary ---
Author Organization [facility] Address [address] [place] [address] Care Team Providers Care Regional Cra Name Role Phone Stephan Mejia MD Unavailable Unavailable Loreta Bhagat MD Primary Care Provider [phone] Cyndy Jama NP Unavailable [phone] Jose Delgado MD Unavailable [phone] Encounter Details Date Type Department Care Team Description 10/30/2021 Release of Information Medical Records [address] [place] [address] [place] [address] Social History Tobacco Use Types Packs/Day Years [...] on filedocumented in this encounter Care Teams Regional Cra Relationship Specialty Start Date End Date Loreta Bhagat MD [address] [place] [address] PCP - General Internal Medicine 09/01/21 Stephan Mejia MD Ethnographic Materials Conservator Cardiovascular Disease 07/30/21 4 Cyndy Jama NP [address] [place] [address] Nurse Practitioner Cardiology 07/23/22 Jose Delgado MD [address] [place] [address] [address] [place] [address] Ethnographic Materials Conservator Cardiovascular Disease 04/24/24 documented as of this encounter
--- OUTSIDE RECORDS SUMMARY | 2025-06-07 12:17 | XMS_ITS | Encounter Summary ---
Author Organization [employer] [facility] Address [address] [place] [address] Care Team Providers Care Surgical Assist Name Role Phone Maryjo Reina DO Primary Care Pro vider Unavailable Marisol Valencia PA-C Primary Care Provider Stephan Carson MD Unavailable Unavailable Loreta Bhagat MD Primary Care Provider [phone] Cyndy Jama NP Unavailable [phone] Jose Delgado MD Unavailable [phone] Encounter Details Date Type Department Care Team Description 08/05/2018 Hospital Medical Records [address] [place] [address] Social History Tobacco Use Types Packs/Day Years [...] on filedocumented in this encounter Care Teams Surgical Assist Relationship Specialty Start Date End Date Maryjo Reina DO PCP - General Internal Medicine 07/05/13 07/23/21 Marisol Valencia PA-C PCP - General Internal Medicine 07/24/21 08/31/21 Loreta Bhagat MD [address] [place] [address] PCP - General Internal Medicine 09/01/21 Stephan Mejia MD Photo Intern Cardiovascular Disease 07/30/21 4 Cyndy Jama NP [address] [place] [address] Nurse Practitioner Cardiology 07/23/22 Jose Delgado MD [address] [place] [address] [place] [address] Photo Intern Cardiovascular Disease 04/24/24 documented as of this encounter
--- OUTSIDE RECORDS SUMMARY | 2025-06-07 12:17 | XMS_ITS | Encounter Summary ---
Author Organization [facility] Address [address] [place] [address] Care Team Providers Care Arc Furnace Operator Name Role Phone Maryjo Reina DO Primary Care Pro vider Unavailable Marisol Valencia PA-C Primary Care Provider U Stephan Muñoz MD Unavailable Unavailable Loreta Bhagat MD Primary Care Provider [phone] Cyndy Jama NP Unavailable [phone] Jose Delgado MD Unavailable [phone] Reason for Referral * Non [facility] (Routine) - Authorized/Booked Specialty Diagnoses / Procedures Referred By Sintia cruz Referred To Contact Pulmonology Procedures REFERRAL TO PULMONOLOGY Maryjo Reina DO [address] [place] [address] Pulmo/Chris [address] [place] [address] Referral ID Status Reason Start Date Expiration Date V isits Requested Visits Authorized [id number] Authorized/B ooked 12/31/2017 12/31/2018 1 1 * Non [facility] (Routine) - Unable to reach/declined Specialty Diagnoses / Procedures Referred By Sintia cruz Referred To Contact Oncology/Hematology Procedures REFERRAL TO ONCOLOGY/HEMATOLOGY Maryjo Reina DO [address] [place] [address] Onc/[place] [address] [place] [address] Referral ID Status Reason Start Date Expiration Date V isits Requested Visits Authorized [id number] Unable to reach/declin ed 12/31/2017 12/31/2018 1 1 * Non [facility] (Routine) - Authorized/Booked Specialty Diagnoses / Procedures Referred By Sintia cruz Referred To Contact Gastroenterology Procedures REFERRAL TO GASTROENTEROLOGY Maryjo Reina DO [address] [place] [address] Gastro/[place] [address] [place] [address] Referral ID Status Reason Start Date Expiration Date V isits Requested Visits Authorized [id number] 02/02 Authorized/ Booked 12/31/2017 12/31/2018 1 1 Encounter Details Date Type Department Care Team Description 12/31/2017 Orders Only Adult Medicine [facility] [address] [place] [address] Maryjo Reina DO Thalassemia minor (Primary Dx); [...] (HCC) documented in this encounter Care Teams Arc Furnace Operator Relationship Specialty Start Date End Date Maryjo Reina DO PCP - General Internal Medicine 07/05/13 07/23/21 Marisol Valencia PA-C PCP - General Internal Medicine 07/24/21 08/31/21 Loreta Bhagat MD [address] [place] [address] PCP - General Internal Medicine 09/01/21 Stephan Mejia MD Tactical/Mobile Watch Officer Cardiovascular Disease 07/30/21 4 Cyndy Jama NP [address] [place] [address] Nurse Practitioner Cardiology 07/23/22 Jose Delgado MD [address] [place] [address] [address] [place] [address] Tactical/Mobile Watch Officer Cardiovascular Disease 04/24/24 documented as of this encounter
--- OUTSIDE RECORDS SUMMARY | 2025-06-07 12:17 | XMS_ITS | Encounter Summary ---
Author Organization [facility] Address [address] [place] [address] Care Team Providers Care Blanket Binder Name Role Phone Siddharth Gardiner MD Primary Care Provider Unav ailMaryjo Day DO Primary Care Pro vider Unavailable Marisol Valencia PA-C Primary Care Provider U Stephan Muñoz MD Unavailable Unavailable Loreta Bhagat MD Primary Care Provider Cyndy Jama NP Unavailable [phone] Jose Delgado MD Unavailable [phone] Reason for Visit * Reason Onset Date Comments Appointment-Internal Referral 12/08/2012 Encounter Details Date Type Department Care Team Description 12/08/2012 Telephone Adult Medicine [address] [id number] Siddharth Gardiner MD Appointment-Internal Referral Social History [...] - 12/08/2012 1:08 PM EDT Sent to [employer] pool message routed to eye dept * [...] on filedocumented in this encounter Care Teams Blanket Binder Relationship Specialty Start Date End Date Siddharth Gardiner MD PCP - General Internal Medicine 10/14/12 3 Maryjo Reina DO PCP - General Internal Medicine 07/05/13 07/23/21 Marisol Valencia PA-C PCP - General Internal Medicine 07/24/21 08/31/21 Loreta Bhagat MD [address] [place] [address] PCP - General Internal Medicine 09/01/21 Stephan Mejia MD Management Trainer Cardiovascular Disease 07/30/21 4 Cyndy Jama NP [address] [place] [address] Nurse Practitioner Cardiology 07/23/22 Jose Delgado MD [address] [place] [address] [place] [address] Management Trainer Cardiovascular Disease 04/24/24 documented as of this encounter
--- OUTSIDE RECORDS SUMMARY | 2025-06-07 12:17 | XMS_ITS | Encounter Summary ---
Author Organization [facility]{img} [facility] Address [address] [place] [address] Care Team Providers Care Laborer Tree Tapping Name Role Phone Maryjo Reina DO Primary Care Pro vider Unavailable Marisol Valencia PA-C Primary Care Provider U Stephan Muñoz MD Unavailable Unavailable Loreta Bhagat MD Primary Care Provider [phone] Cyndy Jama NP Unavailable [phone] Jose Delgado MD Unavailable [phone] Encounter Details Date Type Department Care Team Description 04/02/2020 Hospital Medical Records [address] [place] [address] Yung Piper Social History Tobacco Use Types [...] on filedocumented in this encounter Care Teams Laborer Tree Tapping Relationship Specialty Start Date End Date Maryjo Reina DO PCP - General Internal Medicine 07/05/13 07/23/21 Marisol Valencia PA-C PCP - General Internal Medicine 07/24/21 08/31/21 Loreta Bhagat MD [address] [place] [address] PCP - General Internal Medicine 09/01/21 Stephan Mejia MD Laborer Powerhouse Cardiovascular Disease 07/30/21 4 Cyndy Jama NP [address] [place] [address] Nurse Practitioner Cardiology 07/23/22 Jose Delgado MD [address] [place] [address] [address] [place] [address] Laborer Powerhouse Cardiovascular Disease 04/24/24 documented as of this encounter
--- OUTSIDE RECORDS SUMMARY | 2025-06-07 12:17 | XMS_ITS | Encounter Summary ---
Author Organization [email or web address] Address [address] [place] [address] Care Team Providers Care Secret Service Agent Name Role Phone Stephan Mejia MD Unavailable Unavailable Loreta Bhagat MD Primary Care Provider [phone] Cyndy Jama NP Unavailable [phone] Jose Delgado MD Unavailable [phone] Reason for Visit * Reason Onset Date Comments er follow up 01/27/2023 Encounter Details Date Type Department Care Team Description 01/27/2023 Telephone Adult Medicine [facility] [address] [place] [address] [phone] Loreta Bhagat MD [address] [place] [address] [phone] er follow up Social History Tobacco Use [...] with: Hospital/UC center patient was treated at: [facility] Date of visit: 01/25/2023 Was this [...] on filedocumented in this encounter Care Teams Secret Service Agent Relationship Specialty Start Date End Date Loreta Bhagat MD [address] [place] [address] PCP - General Internal Medicine 09/01/21 Stephan Mejia MD Surveillance Inspector Cardiovascular Disease 07/30/21 4 Cyndy Jama NP [address] [place] [address] Nurse Practitioner Cardiology 07/23/22 Jose Delgado MD [address] [place] [address] [address] [place] [address] Surveillance Inspector Cardiovascular Disease 04/24/24 documented as of this encounter
--- OUTSIDE RECORDS SUMMARY | 2025-06-07 12:17 | XMS_ITS | Encounter Summary ---
Author Organization [facility] Address [address] [place] [address] Care Team Providers Care Laundry Operator Wash Room Name Role Phone Maryjo Reina DO Primary Care Pro vider Unavailable Marisol Valencia PA-C Primary Care Provider U Stephan Muñoz MD Unavailable Unavailable Loreta Bhagat MD Primary Care Provider [phone] Cyndy Jama NP Unavailable [phone] Jose Delgado MD Unavailable [phone] Encounter Details Date Type Department Care Team Description 05/08/2020 Dance Studio Manager Report Medical Records [address] [place] [address] Devan Allen MD Social History Tobacco Use [...] on filedocumented in this encounter Care Teams Laundry Operator Wash Room Relationship Specialty Start Date End Date Maryjo Reina DO PCP - General Internal Medicine 07/05/13 07/23/21 Marisol Valencia PA-C PCP - General Internal Medicine 07/24/21 08/31/21 Loreta Bhagat MD [address] [place] [address] PCP - General Internal Medicine 09/01/21 Stephan Mejia MD Fiberglasser Cardiovascular Disease 07/30/21 4 Cyndy Jama NP [address] [place] [address] Nurse Practitioner Cardiology 07/23/22 Jose Delgado MD [address] [place] [address] [address] [place] [address] Fiberglasser Cardiovascular Disease 04/24/24 documented as of this encounter
--- OUTSIDE RECORDS SUMMARY | 2025-06-07 12:17 | XMS_ITS | Encounter Summary ---
Author Organization [facility] Address [address] [place] [address] Care Team Providers Care Sinter Press Operator Name Role Phone Maryjo Reina DO Primary Care Pro vider Unavailable Marisol Valencia PA-C Primary Care Provider U Stephan Muñoz MD Unavailable Unavailable Loreta Bhagat MD Primary Care Provider [phone] Cyndy Jama NP Unavailable [phone] Jose Delgado MD Unavailable [phone] Encounter Details Date Type Department Care Team Description 10/20/2013 Metal Sprayer Report Medical Records [address] [place] [id number] [place] [address] Social History Tobacco Use Types Packs/Day Years [...] on filedocumented in this encounter Care Teams Sinter Press Operator Relationship Specialty Start Date End Date [place] Colasacco, Maryjo, DO PCP - General Internal Medicine 07/05/13 07/23/21 Marisol Valencia PA-C PCP - General Internal Medicine 07/24/21 08/31/21 Loreta Bhagat MD [address] [place] [address] PCP - General Internal Medicine 09/01/21 Stephan Mejia MD Carton Counter Feeder Cardiovascular Disease 07/30/21 4 Cyndy Jama NP [address] [place] [address] Nurse Practitioner Cardiology 07/23/22 Jose Delgado MD [address] [place] [address] [place] [address] Carton Counter Feeder Cardiovascular Disease 04/24/24 documented as of this encounter
--- OUTSIDE RECORDS SUMMARY | 2025-06-07 12:17 | XMS_ITS | Encounter Summary ---
Author Organization [facility] Address [address] [place] [address] Care Team Providers Care Senior Painter Name Role Phone Stephan Mejia MD Unavailable Unavailable Loreta Bhagat MD Primary Care Provider [phone] Cyndy Jama NP Unavailable [phone] Jose Delgado MD Unavailable Encounter Details Date Type Department Care Team Description 11/05/2021 Director Operations Report Medical Records [address] [place] [address] Katya Jacobsen MD Social History Tobacco Use [...] filedocumented in this encounter Care Teams Senior Painter Relationship Specialty Start Date End Date Loreta Bhagat MD [address] [place] [address] PCP - General Internal Medicine 09/01/21 Stephan Mejia MD Washer Engineer Cardiovascular Disease 07/30/21 4 Cyndy Jama NP [address] [place] [address] Nurse Practitioner Cardiology 07/23/22 Jose Delgado MD [address] [place] [address] [address] [place] [address] Washer Engineer Cardiovascular Disease 04/24/24 documented as of this encounter
--- OUTSIDE RECORDS SUMMARY | 2025-06-07 12:17 | XMS_ITS | Encounter Summary ---
Author Organization [facility] Address [address] [place] [address] Care Team Providers Care Information Coder Name Role Phone Stephan Mejia MD Unavailable Unavailable Loreta Bhagat MD Primary Care Provider [phone] Cyndy Jama NP Unavailable [phone] Jose Delgado MD Unavailable [phone] Reason for Visit * Reason Onset Date Comments refill request 01/28/2023 Encounter Details Date Type Department Care Team Description 01/28/2023 Telephone Adult Medicine [address] [phone] Loreta Bhagat MD [address] [place] [address] [phone] refill request Social History Tobacco Use Types [...] Patients current insurance carrier is: Payor: [facility] [employer] [facility] / Plan: [facility] / Product Type: MEDICAID RISK documented in this encounter Plan of Treatment Not on file documented as of this encounter Visit Diagnoses Not on filedocumented in this encounter Care Teams Information Coder Relationship Specialty Start Date End Date Loreta Bhagat MD [address] [place] [address] PCP - General Internal Medicine 09/01/21 Stephan Mejia MD Java Sybase Developer Cardiovascular Disease 07/30/21 4 Cyndy Jama NP [address] [place] [address] Nurse Practitioner Cardiology 07/23/22 Jose Delgado MD [address] [place] [address] [place] [address] Java Sybase Developer Cardiovascular Disease 04/24/24 documented as of this encounter
--- OUTSIDE RECORDS SUMMARY | 2025-06-07 12:17 | XMS_ITS | Encounter Summary ---
Author Organization [facility] Address [address] [place] [address] Care Team Providers Care Sinter Feeder Name Role Phone Stephan Mejia MD Unavailable Unavailable Loreta Bhagat MD Primary Care Provider [phone] Cyndy Jama NP Unavailable [phone] Jose Delgado MD Unavailable [phone] Reason for Visit * Reason Onset Date Comments Medication 01/30/2022 Encounter Details Date Type Department Care Team Description 01/30/2022 Refill Gastroenterology - [place] [address] [facility] [address] [place] [address] Roxanne Joseph MD Medication Social [...] filedocumented in this encounter Care Teams Sinter Feeder Relationship Specialty Start Date End Date Loreta Bhagat MD [address] [place] [address] PCP - General Internal Medicine 09/01/21 Stephan Mejia MD Patrol Man Cardiovascular Disease 07/30/21 4 Cyndy Jama NP [address] [place] [address] Nurse Practitioner Cardiology 07/23/22 Jose Delgado MD [address] [place] [address] [place] [address] Patrol Man Cardiovascular Disease 04/24/24 documented as of this encounter
--- OUTSIDE RECORDS SUMMARY | 2025-06-07 12:17 | XMS_ITS | Encounter Summary ---
Author Organization [facility] Address [address] [place] [address] Care Team Providers Care Software Support Specialist Name Role Phone Maryjo Reina DO Primary Care Pro vider Unavailable Marisol Valencia PA-C Primary Care Provider U Stephan Muñoz MD Unavailable Unavailable Loreta Bhagat MD Primary Care Provider Cyndy Jama NP Unavailable [phone] Jose Delgado MD Unavailable [phone] Encounter Details Date Type Department Care Team Description 11/06/2018 Orders Only Pulmonology - [address] [place] [address] Jorge Brooks MD Social History [...] on filedocumented in this encounter Care Teams Software Support Specialist Relationship Specialty Start Date End Date Maryjo Reina DO PCP - General Internal Medicine 07/05/13 07/23/21 Marisol Valencia PA-C PCP - General Internal Medicine 07/24/21 08/31/21 Loreta Bhagat MD [address] [place] [address] PCP - General Internal Medicine 09/01/21 Stephan Mejia MD Provider Education Specialist Cardiovascular Disease 07/30/21 4 Cyndy Jama NP [address] [place] [address] Nurse Practitioner Cardiology 07/23/22 Jose Delgado MD [address] [place] [address] [address] [place] [address] Provider Education Specialist Cardiovascular Disease 04/24/24 documented as of this encounter
--- OUTSIDE RECORDS SUMMARY | 2025-06-07 12:17 | XMS_ITS | Encounter Summary ---
Author Organization [facility] Address [address] [place] [address] Care Team Providers Care Ip/Mosaic Technician Name Role Phone Stephan Mejia MD Unavailable Unavailable Loreta Bhagat MD Primary Care Provider [phone] Cyndy Jama NP Unavailable [phone] Jose Delgado MD Unavailable [phone] Encounter Details Date Type Department Care Team Description 02/10/2023 Hospital Medical Records [address] [place] [address] Social History Tobacco Use Types Packs/Day Years [...] on filedocumented in this encounter Care Teams Ip/Mosaic Technician Relationship Specialty Start Date End Date Loreta Bhagat MD [address] [place] [address] [phone] PCP - General Internal Medicine 09/01/21 Stephan Mejia MD Mixing Machine Tender Cardiovascular Disease 07/30/21 4 Cyndy Jama NP [address] [place] [address] Nurse Practitioner Cardiology 07/23/22 Jose Delgado MD [address] [place] [address] [address] [place] [address] Mixing Machine Tender Cardiovascular Disease 04/24/24 documented as of this encounter
--- OUTSIDE RECORDS SUMMARY | 2025-06-07 12:17 | XMS_ITS | Encounter Summary ---
Author Organization [facility] Address [address] [place] [address] Care Team Providers Care Sawmill Equipment Operator Name Role Phone Maryjo Reina DO Primary Care Pro vider Unavailable Marisol Valencia PA-C Primary Care Provider U Stephan Muñoz MD Unavailable Unavailable Loreta Bhagat MD Primary Care Provider [phone] Cyndy Jama NP Unavailable [phone] Jose Delgado MD Unavailable [phone] Encounter Details Date Type Department Care Team Description 03/29/2020 Farmworker General Report Medical Records [address] [place] [address] Social History Tobacco Use Types Packs/Day Years [...] on filedocumented in this encounter Care Teams Sawmill Equipment Operator Relationship Specialty Start Date End Date Maryjo Reina DO PCP - General Internal Medicine 07/05/13 07/23/21 Marisol Valencia PA-C PCP - General Internal Medicine 07/24/21 08/31/21 Loreta Bhagat MD [address] [place] [address] PCP - General Internal Medicine 09/01/21 Stephan Mejia MD C Engineer Cardiovascular Disease 07/30/21 4 Cyndy Jama NP [address] [place] [address] Nurse Practitioner Cardiology 07/23/22 Jose Delgado MD [address] [place] [address] [place] [address] C Engineer Cardiovascular Disease 04/24/24 documented as of this encounter
--- OUTSIDE RECORDS SUMMARY | 2025-06-07 12:17 | XMS_ITS | Encounter Summary ---
Author Organization [facility] Address [address] [place] [address] Care Team Providers Care Watch Repairer Name Role Phone Maryjo Reina DO Primary Care Pro vider Unavailable Marisol Valencia PA-C Primary Care Provider U Stephan Muñoz MD Unavailable Unavailable Loreta Bhagat MD Primary Care Provider [phone] Cyndy Jama NP Unavailable [phone] Jose Delgado MD Unavailable [phone] Encounter Details Date Type Department Care Team Description 01/06/2019 Transfer Records Medical Records [address] [place] [address] Social History Tobacco Use Types Packs/Day Years [...] on filedocumented in this encounter Care Teams Watch Repairer Relationship Specialty Start Date End Date Maryjo Reina DO PCP - General Internal Medicine 07/05/13 07/23/21 Marisol Valencia PA-C PCP - General Internal Medicine 07/24/21 08/31/21 Loreta Bhagat MD [address] [place] [address] PCP - General Internal Medicine 09/01/21 Stephan Mejia MD Knowledge Architect Cardiovascular Disease 07/30/21 4 Cyndy Jama NP [address] [place] [address] Nurse Practitioner Cardiology 07/23/22 Jose Delgado MD [address] [place] [address] [place] [address] Knowledge Architect Cardiovascular Disease 04/24/24 documented as of this encounter
--- OUTSIDE RECORDS SUMMARY | 2025-06-07 12:17 | XMS_ITS | Encounter Summary ---
Author Organization [employer] [facility] Address [address] [place] [address] Care Team Providers Care Diploma Medical Assistant Name Role Phone Stephan Mejia MD Unavailable Unavailable Loreta Bhagat MD Primary Care Provider [phone] Cyndy Jama NP Unavailable [phone] Jose Delgado MD Unavailable [phone] Encounter Details Date Type Department Care Team Description 01/17/2022 SCAN Medical Records [address] [place] [address] Abstract, Provider Social History Tobacco Use Types [...] on filedocumented in this encounter Care Teams Diploma Medical Assistant Relationship Specialty Start Date End Date Loreta Bhagat MD [address] [place] [address] PCP - General Internal Medicine 09/01/21 Stephan Mejia MD Segment Block Layer Cardiovascular Disease 07/30/21 4 Cyndy Jama NP [address] [place] [address] Nurse Practitioner Cardiology 07/23/22 Jose Delgado MD [address] [place] [address] [place] [address] Segment Block Layer Cardiovascular Disease 04/24/24 documented as of this encounter
--- OUTSIDE RECORDS SUMMARY | 2025-06-07 12:17 | XMS_ITS | Encounter Summary ---
Author Organization [facility] Address [address] [place] [address] Care Team Providers Care Tariff Compiling Clerk Name Role Phone Maryjo Riena DO Primary Care Pro vider Unavailable Marisol Valencia PA-C Primary Care Provider Stephan Carson MD Unavailable Unavailable Loreta Bhagat MD Primary Care Provider [phone] Cyndy Jama NP Unavailable [phone] Jose Delgado MD Unavailable [phone] Encounter Details Date Type Department Care Team Description 04/04/2020 Hospital Medical Records [address] [place] [address] Social History Tobacco Use Types Packs/Day Years [...] on filedocumented in this encounter Care Teams Tariff Compiling Clerk Relationship Specialty Start Date End Date Maryjo Reina DO PCP - General Internal Medicine 07/05/13 07/23/21 Marisol Valencia PA-C PCP - General Internal Medicine 07/24/21 08/31/21 Loreta Bhagat MD [address] [place] [address] PCP - General Internal Medicine 09/01/21 Stephan Mejia MD Theatrical Rigger Cardiovascular Disease 07/30/21 4 Cyndy Jama NP [address] [place] [address] Nurse Practitioner Cardiology 07/23/22 Jose Delgado MD [address] [place] [address] [place] [address] Theatrical Rigger Cardiovascular Disease 04/24/24 documented as of this encounter
--- OUTSIDE RECORDS SUMMARY | 2025-06-07 12:17 | XMS_ITS | Encounter Summary ---
Author Organization [facility] Address [address] [place] [address] Care Team Providers Care Library Director Name Role Phone Stephan Mejia MD Unavailable Unavailable Loreta Bhagat MD Primary Care Provider [phone] Cyndy Jama NP Unavailable [phone] Jose Delgado MD Unavailable [phone] Encounter Details Date Type Department Care Team Description 12/31/2021 Hospital Medical Records [address] [place] [address] Jhonathan Song MD Social History Tobacco Use [...] on filedocumented in this encounter Care Teams Library Director Relationship Specialty Start Date End Date Loreta Bhagat MD [address] [place] [address] [phone] PCP - General Internal Medicine 09/01/21 Stephan Mejia MD Automobile Club Travel Counselor Cardiovascular Disease 07/30/21 4 Cyndy Jama NP [address] [place] [address] Nurse Practitioner Cardiology 07/23/22 Jose Delgado MD [address] [place] [address] [place] [address] Automobile Club Travel Counselor Cardiovascular Disease 04/24/24 documented as of this encounter
--- OUTSIDE RECORDS SUMMARY | 2025-06-07 12:17 | XMS_ITS | Encounter Summary ---
Author Organization [facility] Address [address] [place] [address] Care Team Providers Care Flanging Operator Name Role Phone Stephan Mejia MD Unavailable Unavailable Loreta Bhagat MD Primary Care Provider Cyndy Jama NP Unavailable [phone] Jose Delgado MD Unavailable [phone] Encounter Details Date Type Department Care Team Description 02/03/2022 Real Estate Associate Report Medical Records [address] [place] [address] Katya Jacobsen MD Social History Tobacco Use [...] on filedocumented in this encounter Care Teams Flanging Operator Relationship Specialty Start Date End Date Loreta Bhagat MD [address] [place] [address] PCP - General Internal Medicine 09/01/21 Stephan Mejia MD Geomagnetist Cardiovascular Disease 07/30/21 4 Cyndy Jama NP [address] [place] [address] Nurse Practitioner Cardiology 07/23/22 Jose Delgado MD [address] [place] [address] [address] [place] [address] Geomagnetist Cardiovascular Disease 04/24/24 documented as of this encounter
--- OUTSIDE RECORDS SUMMARY | 2025-06-07 12:17 | XMS_ITS | Encounter Summary ---
Author Organization [facility] Address [address] [place] [address] Care Team Providers Care Weigher Bulker Name Role Phone Maryjo Reina DO Primary Care Pro vider Unavailable Marisol Valencia PA-C Primary Care Provider U Stephan Muñoz MD Unavailable Unavailable Loreta Bhagat MD Primary Care Provider [phone] Cyndy Jama NP Unavailable [phone] Jose Delgado MD Unavailable [phone] Reason for Referral * Specialist (Routine) - Authorized/Booked Specialty Diagnoses / Procedures Referred By Sintia cruz Referred To Contact Pulmonology Procedures REFERRAL TO PULMONOLOGY Maryjo Reina DO [address] [place] [address] [address] [address] Referral ID Status Reason Start Date Expiration Date V isits Requested Visits Authorized NOT REQUIRED Authorized/ Booked 03/05/2014 03/05/2015 1 1 Encounter Details Date Type Department Care Team Description 03/05/2014 Orders Only Adult Medicine [facility] [address] [place] [address] Maryjo Reina DO Pulmonary nodule (Primary Dx) [...] nodule documented in this encounter Care Teams Weigher Bulker Relationship Specialty Start Date End Date Maryjo Reina DO PCP - General Internal Medicine 07/05/13 07/23/21 Marisol Valencia PA-C PCP - General Internal Medicine 07/24/21 08/31/21 Loreta Bhagat MD [address] [place] [address] PCP - General Internal Medicine 09/01/21 Stephan Mejia MD Cuffing Machine Operator Cardiovascular Disease 07/30/21 4 Cyndy Jama NP [address] [place] [address] Nurse Practitioner Cardiology 07/23/22 Jose Delgado MD [address] [place] [address] [place] [address] Cuffing Machine Operator Cardiovascular Disease 04/24/24 documented as of this encounter
--- OUTSIDE RECORDS SUMMARY | 2025-06-07 12:17 | XMS_ITS | Encounter Summary ---
Author Organization [employer] [facility] Address [address] [place] [address] Care Team Providers Care Pie Icer Machine Name Role Phone Maryjo Reina DO Primary Care Pro vider Unavailable Marisol Valencia PA-C Primary Care Provider U Stephan Muñoz MD Unavailable Unavailable Loreta Bhagat MD Primary Care Provider [phone] Cyndy Jama NP Unavailable [phone] Jose Delgado MD Unavailable [phone] Encounter Details Date Type Department Care Team Description 02/16/2014 Kiln Mechanic Report Medical Records [address] [place] [address] Lanre Tanner, DPM Social History Tobacco Use [...] on filedocumented in this encounter Care Teams Pie Icer Machine Relationship Specialty Start Date End Date Maryjo Reina DO PCP - General Internal Medicine 07/05/13 07/23/21 Marisol Valencia PA-C PCP - General Internal Medicine 07/24/21 08/31/21 Loreta Bhagat MD [address] [place] [address] PCP - General Internal Medicine 09/01/21 Stephan Mejia MD Embroidery Finisher Cardiovascular Disease 07/30/21 4 Cyndy Jama NP [address] [place] [address] Nurse Practitioner Cardiology 07/23/22 Jose Delgado MD [address] [place] [address] DR[address] [place] [address] Embroidery Finisher Cardiovascular Disease 04/24/24 documented as of this encounter
--- OUTSIDE RECORDS SUMMARY | 2025-06-07 12:17 | XMS_ITS | Encounter Summary ---
Author Organization [facility] Address [address] [place] [address] Care Team Providers Care Harbor Pilot Name Role Phone Maryjo Reina DO Primary Care Pro vider Unavailable Marisol Valencia PA-C Primary Care Provider U Stephan Muñoz MD Unavailable Unavailable Loreta Bhagat MD Primary Care Provider [phone] Cyndy Jama NP Unavailable [phone] Jose Delgado MD Unavailable [phone] Reason for Referral * Non [facility] (Routine) - Authorized/Booked Specialty Diagnoses / Procedures Referred By Sintia cruz Referred To Contact Oncology/Hematology Procedures REFERRAL TO ONCOLOGY/HEMATOLOGY (IN NETWORK) Maryjo Reina DO [address] [place] [address] Onc/[place] [address] [place] [address] Referral ID Status Reason Start Date Expiration Date V isits Requested Visits Authorized [id number] Authorized/B ooked 10/13/2019 10/12/2020 1 1 * Non [facility] (Routine) - Unable to reach/declined Specialty Diagnoses / Procedures Referred By Sintia cruz Referred To Contact Gastroenterology Procedures REFERRAL TO GASTROENTEROLOGY Maryjo Reina DO [address] [place] [address] Gastro [place]/175 175 [facility] [address] [place] [id number] Referral ID Status Reason Start Date Expiration Date V isits Requested Visits Authorized [id number] 10/25 LTR Unable to reach/decli errol 10/13/2019 10/12/2020 12 12 Encounter Details Date Type Department Care Team Description 10/13/2019 Orders Only Adult Medicine [address] [address] Maryjo Reina DO Social History Tobacco Use [...] on filedocumented in this encounter Care Teams Harbor Pilot Relationship Specialty Start Date End Date Maryjo Reina DO PCP - General Internal Medicine 07/05/13 07/23/21 Marisol Valencia PA-C PCP - General Internal Medicine 07/24/21 08/31/21 Loreta Bhagat MD [address] [place] [address] PCP - General Internal Medicine 09/01/21 Stephan Mejia MD Powderman Cardiovascular Disease 07/30/21 4 Cyndy Jama NP [address] [place] [address] Nurse Practitioner Cardiology 07/23/22 Jose Delgado MD [address] [place] [address] DRIVE [address] [place] [address] Powderman Cardiovascular Disease 04/24/24 documented as of this encounter
--- OUTSIDE RECORDS SUMMARY | 2025-06-07 12:17 | XMS_ITS | Encounter Summary ---
Author Organization [facility] Address [address] [place] [address] Care Team Providers Care Residential Roofer Name Role Phone Maryjo Reina DO Primary Care Pro vider Unavailable Marisol Valencia PA-C Primary Care Provider U Stephan Muñoz MD Unavailable Unavailable Loreta Bhagat MD Primary Care Provider [phone] Cyndy Jama NP Unavailable [phone] Jose Delgado MD Unavailable [phone] Encounter Details Date Type Department Care Team Description 02/22/2014 [facility] Only Adult Medicine [address] [address] Maryjo Reina DO Anemia; Vitamin D deficiency [...] deficiency documented in this encounter Care Teams Residential Roofer Relationship Specialty Start Date End Date Maryjo Reina DO PCP - General Internal Medicine 07/05/13 07/23/21 Marisol Valencia PA-C PCP - General Internal Medicine 07/24/21 08/31/21 Loreta Bhagat MD [address] [place] [address] PCP - General Internal Medicine 09/01/21 Stephan Mejia MD Shredded Filler Cutter Operator Cardiovascular Disease 07/30/21 4 Cyndy Jama NP [address] [place] [address] Nurse Practitioner Cardiology 07/23/22 Jose Delgado MD [address] [place] [address] [address] [place] [address] Shredded Filler Cutter Operator Cardiovascular Disease 04/24/24 documented as of this encounter
--- OUTSIDE RECORDS SUMMARY | 2025-06-07 12:17 | XMS_ITS | Encounter Summary ---
Author Organization [employer] [facility] Address [address] [place] [address] Care Team Providers Care Coiled Coil Inspector Name Role Phone Maryjo Reina DO Primary Care Pro vider Unavailable Marisol Valencia PA-C Primary Care Provider U Stephan Muñoz MD Unavailable Unavailable Loreta Bhagat MD Primary Care Provider [phone] Cyndy Jama NP Unavailable [phone] Jose Delgado MD Unavailable [phone] Encounter Details Date Type Department Care Team Description 05/22/2020 Release of Information Medical Records [address] [place] [address] Abstract, Provider Social History Tobacco Use Types [...] on filedocumented in this encounter Care Teams Coiled Coil Inspector Relationship Specialty Start Date End Date KraMaryjo Sanches DO PCP - General Internal Medicine 07/05/13 07/23/21 Marisol Valencia PA-C PCP - General Internal Medicine 07/24/21 08/31/21 Loreta Bhagat MD [address] [place] [address] PCP - General Internal Medicine 09/01/21 Stephan Mejia MD Motorboat Operator Cardiovascular Disease 07/30/21 4 Cyndy Jama NP [address] [place] [address] Nurse Practitioner Cardiology 07/23/22 Jose Delgado MD [address] [place] [address] [place] [address] Motorboat Operator Cardiovascular Disease 04/24/24 documented as of this encounter
--- OUTSIDE RECORDS SUMMARY | 2025-06-07 12:17 | XMS_ITS | Encounter Summary ---
Author Organization [employer] [facility] Address [address] [place] [address] Care Team Providers Care Harbor Patrol Police Name Role Phone Maryjo Reina DO Primary Care Pro vider Unavailable Marisol Valencia PA-C Primary Care Provider U Stephan Muñoz MD Unavailable Unavailable Loreta Bhagat MD Primary Care Provider [phone] Cyndy Jama NP Unavailable [phone] Jose Delgado MD Unavailable [phone] Encounter Details Date Type Department Care Team Description 10/05/2014 Sink Cutter Report Medical Records [address] [place] [address] Lanre Tanner, DPM Social History Tobacco Use [...] filedocumented in this encounter Care Teams Harbor Patrol Police Relationship Specialty Start Date End Date Maryjo Reina DO PCP - General Internal Medicine 07/05/13 07/23/21 Marisol Valencia PA-C PCP - General Internal Medicine 07/24/21 08/31/21 Loreta Bhagat MD [address] [place] [address] PCP - General Internal Medicine 09/01/21 Stephan Mejia MD Insurance Policy Clerk Cardiovascular Disease 07/30/21 4 Cyndy Jama NP [address] [place] [address] Nurse Practitioner Cardiology 07/23/22 Jose Delgado MD [address] [place] [address] DRIVE [address] [place] [address] Insurance Policy Clerk Cardiovascular Disease 04/24/24 documented as of this encounter
--- OUTSIDE RECORDS SUMMARY | 2025-06-07 12:17 | XMS_ITS | Encounter Summary ---
Author Organization [employer] [facility] Address [address] [place] [address] Care Team Providers Care Propagator Name Role Phone Maryjo Reina DO Primary Care Pro vider Unavailable Marisol Valencia PA-C Primary Care Provider Stephan Carson MD Unavailable Unavailable Loreta Bhagat MD Primary Care Provider Cyndy Jama NP Unavailable [phone] Jose Delgado MD Unavailable [phone] Encounter Details Date Type Department Care Team Description 02/11/2020 Hospital Medical Records [address] [place] [address] Social History Tobacco Use Types Packs/Day Years [...] on filedocumented in this encounter Care Teams Propagator Relationship Specialty Start Date End Date Maryjo Reina DO PCP - General Internal Medicine 07/05/13 07/23/21 Marisol Valencia PA-C PCP - General Internal Medicine 07/24/21 08/31/21 Loreta Bhagat MD [address] [place] [address] PCP - General Internal Medicine 09/01/21 Stephan Mejia MD Stock Shaper Cardiovascular Disease 07/30/21 4 Cyndy Jama NP [address] [place] [address] Nurse Practitioner Cardiology 07/23/22 Jose Delgado MD [address] [place] [address] [place] [address] Stock Shaper Cardiovascular Disease 04/24/24 documented as of this encounter
--- OUTSIDE RECORDS SUMMARY | 2025-06-07 12:17 | XMS_ITS | Encounter Summary ---
Author Organization [facility] Address [address] [place] [address] Care Team Providers Care Training Generalist Name Role Phone Maryjo Reina DO Primary Care Pro vider Unavailable Marisol Valencia PA-C Primary Care Provider Stephan Carson MD Unavailable Unavailable Loreta Bhagat MD Primary Care Provider [phone] Cyndy Jama NP Unavailable [phone] Jose Delgado MD Unavailable [phone] Reason for Visit * Reason Onset Date Comments PT-1 09/15/2018 Encounter Details Date Type Department Care Team Description 09/15/2018 Telephone Adult Medicine [address] [address] Maryjo Reina DO PT-1 Social History Tobacco [...] M.A. - 09/23/2018 11:39 AM EST Tracking #[id number] * Telephone Encounter - Danielle Richter - 09/15/2018 11:56 AM EST 12/14/17 [facility] patients will now be included in this workflow: Verify and document patients [place] Health insurance ID # (NOT [facility] ID): [id number] Payor: [employer] FFS / Plan: [email or web address] ALLIANCE / Product Type: MEDICAID RISK Patient mailing address: [address] [place], [place] [address] [address] Pt. demographics verified? YES If not accurate, update registration. Is this a NEW request or a RENEWAL? NEW Name of treating facility: [facility] Name (first & last) of treating provider? required : [facility] clinic What is the medical reason why the patient is seeing the above provider? Substance abuse Address/Zip code for treating provider: [address] [place] [address] Phone # for treating provider: [phone] Is the provider in the [facility] network (do they accept [place] Health insurance)? [...] on filedocumented in this encounter Care Teams Training Generalist Relationship Specialty Start Date End Date Maryjo Reina DO PCP - General Internal Medicine 07/05/13 07/23/21 Marisol Valencia PA-C PCP - General Internal Medicine 07/24/21 08/31/21 Loreta Bhagat MD [address] [place] [address] PCP - General Internal Medicine 09/01/21 Stephan Mejia MD Armature Straightener Cardiovascular Disease 07/30/21 4 Cyndy Jama NP [address] [place] [address] Nurse Practitioner Cardiology 07/23/22 Jose Delgado MD [address] [place] [address] [address] [place] [address] Armature Straightener Cardiovascular Disease 04/24/24 documented as of this encounter
--- OUTSIDE RECORDS SUMMARY | 2025-06-07 12:17 | XMS_ITS | Encounter Summary ---
Author Organization [employer] [facility] Address [address] [place] [address] Care Team Providers Care Steam Train Driver Name Role Phone Maryjo Reina DO Primary Care Pro vider Unavailable Marisol Valencia PA-C Primary Care Provider Stephan Carson MD Unavailable Unavailable Loreta Bhagat MD Primary Care Provider [phone] Cyndy Jama NP Unavailable [phone] Jose Delgado MD Unavailable Reason for Visit * Reason Onset Date Comments PT-1 09/15/2018 Encounter Details Date Type Department Care Team Description 09/15/2018 Telephone Adult Medicine [address] [address] Maryjo Reina DO PT-1 Social History Tobacco [...] M.A. - 09/23/2018 11:39 AM EST Tracking #[id number] * Telephone Encounter - Danielle Richter - 09/15/2018 12:08 PM EST 12/14/17 [facility] patients will now be included in this workflow: Verify and document patients [place] Health insurance ID # (NOT [facility] ID): [id number] Payor: [employer] FFS / Plan: [employer] ALLIANCE / Product Type: MEDICAID RISK Patient mailing address: [address] [place] [address] Dr Robel ABBOTT [address] Pt. demographics verified? YES If not accurate, update registration. Is this a NEW request or a RENEWAL? NEW Name of treating facility: [facility] Name (first & last) of treating provider? required : Dr. Maryjo Potter What is the medical reason why the patient is seeing the above provider? Primary care Address/Zip code for treating provider: [address] [place] [address] Phone # for treating provider: [phone] Is the provider in the [facility] (do they accept [place] Health insurance)? YES What specialtly is this [...] on filedocumented in this encounter Care Teams Steam Train Driver Relationship Specialty Start Date End Date Maryjo Reina DO PCP - General Internal Medicine 07/05/13 07/23/21 Marisol Valencia PA-C PCP - General Internal Medicine 07/24/21 08/31/21 Loreta Bhagat MD [address] [place] [address] PCP - General Internal Medicine 09/01/21 Stephan Mejia MD Pharmacy Student Cardiovascular Disease 07/30/21 4 Cyndy Jama NP [address] [place] [address] Nurse Practitioner Cardiology 07/23/22 Jose Delgado MD [address] [place] [address] DR[address] [place] [address] Pharmacy Student Cardiovascular Disease 04/24/24 documented as of this encounter
--- OUTSIDE RECORDS SUMMARY | 2025-06-07 12:17 | XMS_ITS | Encounter Summary ---
Author Organization [employer] [facility] Address [address] [place] [address] Care Team Providers Care Computer Systems Technology Instructor Name Role Phone Maryjo Reina DO Primary Care Pro vider Unavailable Marisol Valencia PA-C Primary Care Provider U Stephan Muñoz MD Unavailable Unavailable Loreta Bhagat MD Primary Care Provider [phone] Cyndy Jama NP Unavailable [phone] Jose Delgado MD Unavailable Encounter Details Date Type Department Care Team Description 06/05/2020 Release of Information Medical Records [address] [place] [address] Abstract, Provider Social History Tobacco Use Types [...] filedocumented in this encounter Care Teams Computer Systems Technology Instructor Relationship Specialty Start Date End Date KraMaryjo Sanches DO PCP - General Internal Medicine 07/05/13 07/23/21 Marisol Valencia PA-C PCP - General Internal Medicine 07/24/21 08/31/21 Loreta Bhagat MD [address] [place] [address] PCP - General Internal Medicine 09/01/21 Stephan Mejia MD Mass Spec Cardiovascular Disease 07/30/21 4 Cyndy Jama NP [address] [place] [address] Nurse Practitioner Cardiology 07/23/22 Jose Delgado MD [address] [place] [address] [place] [address] Mass Spec Cardiovascular Disease 04/24/24 documented as of this encounter
--- OUTSIDE RECORDS SUMMARY | 2025-06-07 12:17 | XMS_ITS | Encounter Summary ---
Author Organization [facility] Address [address] [place] [address] Care Team Providers Care Green End Department Supervisor Name Role Phone Maryjo Reina DO Primary Care Pro vider Unavailable Marisol Valencia PA-C Primary Care Provider U Stephan Muñoz MD Unavailable Unavailable Loreta Bhagat MD Primary Care Provider [phone] Cyndy Jama NP Unavailable [phone] Jose Delgado MD Unavailable [phone] Encounter Details Date Type Department Care Team Description 05/02/2020 Textile Converter Report Medical Records [address] [place] [address] [employer] Social History Tobacco Use Types Packs/Day [...] on filedocumented in this encounter Care Teams Green End Department Supervisor Relationship Specialty Start Date End Date Maryjo Reina DO PCP - General Internal Medicine 07/05/13 07/23/21 Marisol Valencia PA-C PCP - General Internal Medicine 07/24/21 08/31/21 Loreta Bhagat MD [address] [place] [address] PCP - General Internal Medicine 09/01/21 Stephan Mejia MD Machine Packager Cardiovascular Disease 07/30/21 4 Cyndy Jama NP [address] [place] [address] Nurse Practitioner Cardiology 07/23/22 Jose Delgado MD [address] [place] [address] [place] [address] Machine Packager Cardiovascular Disease 04/24/24 documented as of this encounter
--- OUTSIDE RECORDS SUMMARY | 2025-06-07 12:18 | XMS_ITS | Encounter Summary ---
Author Organization [facility] Address [address] [place] [address] Care Team Providers Care Air Chipper Name Role Phone Marisol Valencia PA-C Primary Care Provider U Stephan Muñoz MD Unavailable Unavailable Loreta Bhagat MD Primary Care Provider [phone] Cyndy Jama NP Unavailable [phone] Jose Delgado MD Unavailable [phone] Encounter Details Date Type Department Care Team Description 07/30/2021 Telephone Cardio [facility] [address] [place] [address] Marisol Valencia PA-C Social History [...] on filedocumented in this encounter Care Teams Air Chipper Relationship Specialty Start Date End Date Marisol Valencia PA-C PCP - General Internal Medicine 07/24/21 08/31/21 Loreta Bhagat MD [address] [place] [address] PCP - General Internal Medicine 09/01/21 Stephan Mejia MD Space Officer Cardiovascular Disease 07/30/21 4 Cyndy Jama NP [address] [place] [address] Nurse Practitioner Cardiology 07/23/22 Jose Delgado MD [address] [place] [address] [place] [address] Space Officer Cardiovascular Disease 04/24/24 documented as of this encounter
--- OUTSIDE RECORDS SUMMARY | 2025-06-07 12:18 | XMS_ITS | Encounter Summary ---
Author Organization [facility] Address [address] [place] [address] Care Team Providers Care Rn Informatics Name Role Phone Maryjo Reina DO Primary Care Pro vider Unavailable Marisol Valencia PA-C Primary Care Provider U Stephan Muñoz MD Unavailable Unavailable Loreta Bhagat MD Primary Care Provider [phone] Cyndy Jama NP Unavailable [phone] Jose Delgado MD Unavailable [phone] Encounter Details Date Type Department Care Team Description 12/05/2018 Orders Only Adult Medicine [address] [address] Maryjo Reina DO Polysubstance abuse (HCC) (Primary [...] 0.3 mg/dL 12/21/2018 6:15 PM EDT [facility] [employer] BILIRUBIN INDIRECT 0.2 0.0 - 1.1 mg/dL 12/21/2018 6:15 PM EDT [facility] [employer] 12/21/2018 2:48 PM EDT 12/21/2018 2:48 PM EDT Maryjo Calvo DO LAB [facility] [employer] * (ABNORMAL) CBC (AUTO DIFF PLATELET) (12/21/2018 2:48 PM EDT) Pathologist [facility] WHITE BLOOD COUNT 4.5(L) 4.8 - 10.8 x10-3/uL 12/21/2018 6:21 PM EDT [facility] [employer] RED BLOOD COUNT 4.7 4.5 - 5.5 x10-6/uL 12/21/2018 6:21 PM EDT [facility] [employer] Hemoglobin 9.7(L) 13.5 - 17.5 g/dL 12/21/2018 6:21 PM EDT [facility] [employer] Hematocrit 32.2(L) 42 - 54 % 12/21/2018 6:21 PM EDT [facility] [employer] MEAN CORPUSCULAR VOLUME 68.7(L) 79 - 98 fL 12/21/2018 6:21 PM EDT [facility] [employer]ULAR HEMOGLOBIN 20.7(L) 27 - 32 pg 12/21/2018 6:21 PM EDT [facility] [employer] HGB CONC 30.1(L) 32 - 37 g/dL 12/21/2018 6:21 PM EDT [facility] [employer] RED CELL DISTRIBUTION WIDTH 17.2(H) 11 - 15 % 12/21/2018 6:21 PM EDT [facility] [employer] PLT COUNT 166 130 - 400 x10-3/uL [...] - 0.03 x10-3/uL 12/21/2018 6:21 PM EDT [facility] 12/21/2018 2:48 PM EDT 12/21/2018 2:48 PM EDT Maryjo Calvo DO LAB [facility] * TREPONEMA ANTIBODY (12/21/2018 2:48 PM EDT) TREPONEMAL AB NEGATIVE NEGATIVE 12/21/2018 6:37 PM EDT [facility] 12/21/2018 2:48 PM EDT 12/21/2018 2:48 PM EDT Maryjo Calvo DO LAB [facility] * HEPATITIS B SURFACE AB TEST (12/21/2018 2:48 PM EDT) Hepatitis B surface antibody NEGATIVE NEGATIVE 12/21/2018 6:24 PM EDT [facility] [employer] 12/21/2018 2:48 PM EDT 12/21/2018 2:48 PM EDT Maryjo Calvo DO LAB [facility] documented in this encounter Visit Diagnoses Diagnosis Polysubstance abuse (HCC)- Primary Other, mixed, or unspecified nondependent drug abuse, unspecified Antibody response examination Screening for endocrine, nutritional, metabolic and immunity disorder Screening for other and unspecified endocrine, nutritional, metabolic, and immunity disorders documented in this encounter Care Teams Rn Informatics Relationship Specialty Start Date End Date Maryjo Reina DO PCP - General Internal Medicine 07/05/13 07/23/21 Marisol Valencia PA-C PCP - General Internal Medicine 07/24/21 08/31/21 Loreta Bhagat MD [address] [place] [address] PCP - General Internal Medicine 09/01/21 Stephan Mejia MD [employer] Cardiovascular Disease 07/30/21 4 Cyndy Jama NP [address] [place] [address] Nurse Practitioner Cardiology 07/23/22 Jose Delgado MD [address] [place] [address] [address] [place] [address] [employer] Cardiovascular Disease 04/24/24 documented as of this encounter
--- OUTSIDE RECORDS SUMMARY | 2025-06-07 12:18 | XMS_ITS | Encounter Summary ---
Author Organization [facility] Address [address] [place] [address] Care Team Providers Care Service Attendant Cafeteria Name Role Phone Maryjo Reina DO Primary Care Pro vider Unavailable Marisol Valencia PA-C Primary Care Provider U Stephan Muñoz MD Unavailable Unavailable Loreta Bhagat MD Primary Care Provider [phone] Cyndy Jama NP Unavailable [phone] Jose Delgado MD Unavailable [phone] Encounter Details Date Type Department Care Team Description 07/24/2019 Medical Practitioners Report Medical Records [address] [place] [address] Abstract, Provider Social History Tobacco Use Types [...] on filedocumented in this encounter Care Teams Service Attendant Cafeteria Relationship Specialty Start Date End Date Maryjo Reina, DO PCP - General Internal Medicine 07/05/13 07/23/21 Marisol Valencia PA-C PCP - General Internal Medicine 07/24/21 08/31/21 Loreta Bhagat MD [address] [place] [address] PCP - General Internal Medicine 09/01/21 Stephan Mejia MD Fluxer Cardiovascular Disease 07/30/21 4 Cyndy Jama NP [address] [place] [address] Nurse Practitioner Cardiology 07/23/22 Jose Delgado MD [address] [place] [address] [place] [address] Fluxer Cardiovascular Disease 04/24/24 documented as of this encounter
--- OUTSIDE RECORDS SUMMARY | 2025-06-07 12:18 | XMS_ITS | Encounter Summary ---
Author Organization [facility] Address [address] [place] [address] Care Team Providers Care Operations And Maintenance Manager Name Role Phone Stephan Mejia MD Unavailable Unavailable Loreta Bhagat MD Primary Care Provider [phone] Cyndy Jama NP Unavailable [phone] Jose Delgado MD Unavailable Encounter Details Date Type Department Care Team Description 04/24/2022 Claims Adjuster Report Medical Records [address] [place] [address] Jorge Brooks MD Social History Tobacco Use [...] on filedocumented in this encounter Care Teams Operations And Maintenance Manager Relationship Specialty Start Date End Date Loreta Bhagat MD [address] [place] [address] PCP - General Internal Medicine 09/01/21 Stephan Mejia MD Infrastructure Design Engineer Cardiovascular Disease 07/30/21 4 Cyndy Jama NP [address] [place] [address] Nurse Practitioner Cardiology 07/23/22 Jose Delgado MD [address] [place] [address] [address] [place] [address] Infrastructure Design Engineer Cardiovascular Disease 04/24/24 documented as of this encounter
--- OUTSIDE RECORDS SUMMARY | 2025-06-07 12:18 | XMS_ITS | Encounter Summary ---
Author Organization [employer] [facility] Address [address] [place] [address] Care Team Providers Care House Builder Name Role Phone Stephan Mejia MD Unavailable Unavailable Loreta Bhagat MD Primary Care Provider [phone] Cyndy Jama NP Unavailable [phone] Jose Delgado MD Unavailable [phone] Reason for Visit * Reason Onset Date Comments Medication 08/17/2022 Encounter Details Date Type Department Care Team Description 08/17/2022 Refill Gastroenterology - [place] [address] [facility] [address] [place] [address] Eliazar Ochoa MD [address] [facility] [address] [place] [address] Medication Social History Tobacco Use Types Packs/Day [...] on filedocumented in this encounter Care Teams House Builder Relationship Specialty Start Date End Date Loreta Bhagat MD [address] [place] [address] PCP - General Internal Medicine 09/01/21 Stephan Mejia MD Supervisor Composing Room Cardiovascular Disease 07/30/21 4 Cyndy Jama NP [address] [place] [address] Nurse Practitioner Cardiology 07/23/22 Jose Delgado MD [address] [place] [address] [place] [address] Supervisor Composing Room Cardiovascular Disease 04/24/24 documented as of this encounter
--- OUTSIDE RECORDS SUMMARY | 2025-06-07 12:18 | XMS_ITS | Encounter Summary ---
Author Organization [employer] [facility] Address [address] [place] [address] Care Team Providers Care Heat Treater Apprentice Name Role Phone Siddharth Gardiner MD Primary Care Provider Unav ailable Maryjo Reina DO Primary Care Pro vider Unavailable Marisol Valencia PA-C Primary Care Provider U Stephan Muñoz MD Unavailable Unavailable Loreta Bhagat MD Primary Care Provider [phone] Cyndy Jama NP Unavailable [phone] Jose Delgado MD Unavailable [phone] Encounter Details Date Type Department Care Team Description 10/27/2012 Orders Only Adult Medicine [address] [address] Siddharth Gardiner MD Social History Tobacco Use [...] on filedocumented in this encounter Care Teams Heat Treater Apprentice Relationship Specialty Start Date End Date Siddharth Gardiner MD PCP - General Internal Medicine 10/14/12 3 Maryjo Reina DO PCP - General Internal Medicine 07/05/13 07/23/21 Marisol Valencia PA-C PCP - General Internal Medicine 07/24/21 08/31/21 Loreta Bhagat MD [address] [place] [address] PCP - General Internal Medicine 09/01/21 Stephan Mejia MD Cosmetology Educator Cardiovascular Disease 07/30/21 4 Cyndy Jama NP [address] [place] [address] Nurse Practitioner Cardiology 07/23/22 Jose Delgado MD [address] [place] [address] [address] [place] [address] Cosmetology Educator Cardiovascular Disease 04/24/24 documented as of this encounter
--- OUTSIDE RECORDS SUMMARY | 2025-06-07 12:18 | XMS_ITS | Encounter Summary ---
Author Organization [employer] [facility] Address [address] [place] [address] Care Team Providers Care Audograph Operator Name Role Phone Maryjo Reina DO Primary Care Pro vider Unavailable Marisol Valencia PA-C Primary Care Provider Stephan Carson MD Unavailable Unavailable Loreta Bhagat MD Primary Care Provider [phone] Cyndy Jama NP Unavailable [phone] Jose Delgado MD Unavailable [phone] Reason for Visit * Reason Onset Date Comments Prior Authorization 07/05/2013 Encounter Details Date Type Department Care Team Description 07/05/2013 Refill Adult Medicine [address] [address] Maryjo Reina DO Prior Authorization Social History [...] problem UNKNOWN Patients current medical insurance Payor: [employer] Plan: [employer] $0 ncyclo [id number] Product Type: MEDICAID RISK What Prescription Plan does the patient have? Prescription Plan Tel # from back of prescription ID card [id number] What is the patients Prescription Plan ID #? [id number] What Pharmacy [facility] the [facility] use? [facility] Payor: [employer] Plan: [employer] IForemO $0 ncyclo [id number] Product Type: MEDICAID RISK documented in this encounter Plan of Treatment Not on file documented as of this encounter Visit Diagnoses Not on filedocumented in this encounter Care Teams Audograph Operator Relationship Specialty Start Date End Date Maryjo Reina DO PCP - General Internal Medicine 07/05/13 07/23/21 Marisol Valencia PA-C PCP - General Internal Medicine 07/24/21 08/31/21 Loreta Bhagat MD [address] [place] [address] PCP - General Internal Medicine 09/01/21 Stephan Mejia MD Flatware Maker Cardiovascular Disease 07/30/21 4 Cyndy Jama NP [address] [place] [address] Nurse Practitioner Cardiology 07/23/22 Jose Delgado MD [address] [place] [address] [address] [place] [address] Flatware Maker Cardiovascular Disease 04/24/24 documented as of this encounter
--- OUTSIDE RECORDS SUMMARY | 2025-06-07 12:18 | XMS_ITS | Encounter Summary ---
Author Organization [employer] [facility] Address [address] [place] [address] Care Team Providers Care Propellant Charge Loader Name Role Phone Siddharth Gardiner MD Primary Care Provider Unav Maryjo Putnam DO Primary Care Pro vider Unavailable Marisol Valencia PA-C Primary Care Provider U Stephan Muñoz MD Unavailable Unavailable Loreta Bhagat MD Primary Care Provider [phone] Cyndy Jama NP Unavailable [phone] Jose Delgado MD Unavailable Encounter Details Date Type Department Care Team Description 02/21/2013 Health Informatics Advisor Report Medical Records [address] [place] [address] Joseph Goldsmith PA-C Social History Tobacco Use [...] on filedocumented in this encounter Care Teams Propellant Charge Loader Relationship Specialty Start Date End Date Siddharth Gardiner MD PCP - General Internal Medicine 10/14/12 3 Maryjo Reina DO PCP - General Internal Medicine 07/05/13 07/23/21 Marisol Valencia PA-C PCP - General Internal Medicine 07/24/21 08/31/21 Loreta Bhagat MD [address] [place] [address] PCP - General Internal Medicine 09/01/21 Stephan Mejia MD Assortment Planner Cardiovascular Disease 07/30/21 4 Cyndy Jama NP 4 [place] [address] Nurse Practitioner Cardiology 07/23/22 Jose Delgado MD [address] [place] [address] DRIVE [address] [place] [address] Assortment Planner Cardiovascular Disease 04/24/24 documented as of this encounter
--- OUTSIDE RECORDS SUMMARY | 2025-06-07 12:18 | XMS_ITS | Encounter Summary ---
Author Organization [employer] [facility] Address [address] [place] [address] Care Team Providers Care Threshing Operator Name Role Phone Maryjo Reina DO Primary Care Pro vider Unavailable Marisol Valencia PA-C Primary Care Provider Stephan Carson MD Unavailable Unavailable Loreta Bhagat MD Primary Care Provider [phone] Cyndy Jama NP Unavailable [phone] Jose Delgado MD Unavailable [phone] Reason for Visit * Reason Onset Date Comments Pulmonary Testing 12/20/2018 Note, Other 12/20/2018 Encounter Details Date Type Department Care Team Description 12/20/2018 Telephone Pulmonology - [place] [address] [facility] [address] [place] [address] Jorge Brooks MD Pulmonary Testing; [...] PM EDT P[place] [facility] [place] [facility] * Telephone Encounter - Bekah Brooks - 12/20/2018 3:00 PM EDT [facility]th its calling they need the whole entired Pft result of the patient documented in this encounter Plan of Treatment Not on file documented as of this encounter Visit Diagnoses Not on filedocumented in this encounter Care Teams Threshing Operator Relationship Specialty Start Date End Date Maryjo Reina DO PCP - General Internal Medicine 07/05/13 07/23/21 Marisol Valencia PA-C PCP - General Internal Medicine 07/24/21 08/31/21 Loreta Bhagat MD [address] [place] [address] PCP - General Internal Medicine 09/01/21 Stephan Mejia MD Lode Miner Cardiovascular Disease 07/30/21 4 Cyndy Jama NP [address] [place] [address] Nurse Practitioner Cardiology 07/23/22 Jose Delgado MD [address] [place] [address] [place] [address] Lode Miner Cardiovascular Disease 04/24/24 documented as of this encounter
--- OUTSIDE RECORDS SUMMARY | 2025-06-07 12:18 | XMS_ITS | Encounter Summary ---
Author Organization [employer] [facility] Address [address] [place] [address] Care Team Providers Care Adobe Block Maker Name Role Phone Maryjo Reina DO Primary Care Pro vider Unavailable Marisol Valencia PA-C Primary Care Provider U Stephan Muñoz MD Unavailable Unavailable Loreta Bhagat MD Primary Care Provider [phone] Cyndy Jama NP Unavailable [phone] Jose Delgado MD Unavailable [phone] Encounter Details Date Type Department Care Team Description 12/26/2014 Bpm Architect Report Medical Records [address] [place] [address] Abstract, Provider Social History Tobacco Use Types [...] on filedocumented in this encounter Care Teams Adobe Block Maker Relationship Specialty Start Date End Date Maryjo Reina DO PCP - General Internal Medicine 07/05/13 07/23/21 Marisol Valencia PA-C PCP - General Internal Medicine 07/24/21 08/31/21 Loreta Bhagat MD [address] [place] [address] PCP - General Internal Medicine 09/01/21 Stephan Mejia MD Router Operator Cardiovascular Disease 07/30/21 4 Cyndy Jama NP [address] [place] [address] Nurse Practitioner Cardiology 07/23/22 Jose Delgado MD [address] [place] [address] DR[address] [place] [address] Router Operator Cardiovascular Disease 04/24/24 documented as of this encounter
--- OUTSIDE RECORDS SUMMARY | 2025-06-07 12:18 | XMS_ITS | Encounter Summary ---
Author Organization [employer] [facility] Address [address] [place] [address] Care Team Providers Care Director Of Marketing Google Performance Ads Name Role Phone Stephan Mejia MD Unavailable Unavailable Loreta Bhagat MD Primary Care Provider [phone] Cyndy Jama NP Unavailable [phone] Joes Delgado MD Unavailable [phone] Encounter Details Date Type Department Care Team Description 01/01/2024 Hospital Medical Records [address] [place] [address] [facility] Social History Tobacco Use [...] on filedocumented in this encounter Care Teams Director Of Marketing Google Performance Ads Relationship Specialty Start Date End Date Loreta Bhagat MD [address] [place] [id number] PCP - General Internal Medicine 09/01/21 Stephan Mejia MD Director Pharmaceutical Cardiovascular Disease 07/30/21 4 Cyndy Jama NP 4 [place] [address] Nurse Practitioner Cardiology 07/23/22 Jose Delgado MD [address] [place] [address] [place] [address] Director Pharmaceutical Cardiovascular Disease 04/24/24 documented as of this encounter
--- OUTSIDE RECORDS SUMMARY | 2025-06-07 12:18 | XMS_ITS | Encounter Summary ---
Author Organization [employer] [facility] Address [address] [place] [address] Care Team Providers Care Bobcat Driver/Labor Name Role Phone Maryjo Reina DO Primary Care Pro vider Unavailable Marisol Valencia PA-C Primary Care Provider U Stephan Muñoz MD Unavailable Unavailable Loreta Bhagat MD Primary Care Provider [phone] Cyndy Jama NP Unavailable [phone] Jose Delgado MD Unavailable Encounter Details Date Type Department Care Team Description 11/08/2015 Hospital Medical Records [address] [place] [address] Josue Winn MD Social History Tobacco Use [...] on filedocumented in this encounter Care Teams Bobcat Driver/Labor Relationship Specialty Start Date End Date Maryjo Reina DO PCP - General Internal Medicine 07/05/13 07/23/21 Marisol Valencia PA-C PCP - General Internal Medicine 07/24/21 08/31/21 Loreta Bhagat MD [address] [place] [address] PCP - General Internal Medicine 09/01/21 Stephan Mejia MD Carpet Layer Cardiovascular Disease 07/30/21 4 Cyndy Jama NP [address] [place] [address] Nurse Practitioner Cardiology 07/23/22 Jose Delgado MD [address] [place] [address] DR[address] [place] [address] Carpet Layer Cardiovascular Disease 04/24/24 documented as of this encounter
--- OUTSIDE RECORDS SUMMARY | 2025-06-07 12:18 | XMS_ITS | Encounter Summary ---
Author Organization [facility] Address [address] [place] [address] Care Team Providers Care Cable Television Program Director Name Role Phone Marisol Valencia PA-C Primary Care Provider U Stephan Muñoz MD Unavailable Unavailable Loreta Castro MD Primary Care Provider [phone] Cyndy Jama NP Unavailable [phone] Jose Delgado MD Unavailable [phone] Reason for Visit * Reason Onset Date Comments Field Coordinator Feedback 07/28/2021 Referrals Encounter Details Date Type Department Care Team Description 07/28/2021 Telephone Adult Medicine [address] [address] Marisol Valencia PA-C Field Coordinator Feedback (Referrals) Social History Tobacco Use Types [...] to reach pt , will send to [facility] * Telephone Encounter - Bria Mai - 07/28/2021 2:51 PM EST Shilpi, patient's counselor states that patient is without a phone at the moment, so when the referral are put into place please use the phone [phone] as a contact number. documented in this encounter Plan of Treatment Not on file documented as of this encounter Visit Diagnoses Not on filedocumented in this encounter Care Teams Cable Television Program Director Relationship Specialty Start Date End Date Marisol Valencia PA-C PCP - General Internal Medicine 07/24/21 08/31/21 Loreta Castro MD [address] [place] [address] PCP - General Internal Medicine 09/01/21 Stephan Mejia MD Product Development Engineer Cardiovascular Disease 07/30/21 4 Cyndy Jama NP [address] [place] [address] Nurse Practitioner Cardiology 07/23/22 Jose Delgado MD [address] [place] [address] [address] [place] [address] Product Development Engineer Cardiovascular Disease 04/24/24 documented as of this encounter
--- OUTSIDE RECORDS SUMMARY | 2025-06-07 12:18 | XMS_ITS | Clinical Summary ---
Author Organization [facility] Address [address] [address] Phone Care Team Providers Care Paper Box Maker Name Role Phone Loreta Bhagat MD Primary Care Provider [phone] Social History Tobacco Use Types Packs/Day Years [...] file Medical Devices Not on file Insurance [employer] [employer] [facility] ALLANCE ACO [facility] [place] [address] [place] [address] [facility] [employer] [facility] ACO [facility] ACO Care Teams Paper Box Maker Relationship Specialty Start Date End Date Loreta Bhagat MD [address] [place] [address] PCP - General 03/06/24 Additional Source Comments The information contained in this document represents components of the legal health record. It is not the complete legal health record.[facility]
--- OUTSIDE RECORDS SUMMARY | 2025-06-07 12:18 | XMS_ITS | Clinical Summary ---
Author Organization [facility] Address [address] [place] [address] Phone Care Team Providers Care Marine Oiler Name Role Phone Loreta Bhagat MD Primary Care Provider [phone] Allergies No known active allergies Medications abacavir [...] times daily. 180 tablet 3 5 Active Active Problems Problem Noted Date Diagnosed Date Polysubstance abuse ([facility] V24, [facility] V28) 1 Overview (05/26/2024): Heroin/ cocaine/ tobacco HFrEF (heart failure with re duced ejection fraction) ([facility] V24, [facility] V28) 04/24/2024 Overview (05/26/2024): Last Assessment & Plan: Patient was documented with a history of HFrEF with some regional wall motion abnormalities. He is not on guideline directed therapy at this time Paar the problem is I do not have a full set of records to see why the medical therapy that was instituted by [facility] heart failure clinic has not been [...] directed therapy. Stage 3a chronic kidney disease ([facility] V24, [facility] V[facility]) 04/24/2022 Dyspnea 10/29/2021 Overview (05/26/2024): Last [...] tremor 09/29/2021 Overview (05/26/2024): Dr. Jacobsen Cardiomyopathy ([facility] V24, [facility] V28) 2021 Overview (05/26/2024): Last Assessment & [...] routine medical care. AMBER (acute kidney injury) ([facility] V24) 04/21/20 Community acquired pneumonia 04/21/2020 Hyperkalemia 04/21/2020 Lesion of lung 04/21/2020 NSTEMI (non-ST elevated myoc ardial infarction) ([facility] V24, [facility] V28) 04/21/2020 Overview (05/26/2024): Last Assessment & Plan: Patient had a history of an NSTEMI with no significant obstructive coronary artery disease. Non-healing non-surgical wound 06/16/2018 Overview (05/26/2024): Chronic heal Pulmonary nodules 06/16/2018 Anemia 02/22/2014 Thalassemia minor 12/09/2012 Chronic hepatitis C ([facility] V24, [facility] V28) 0 10/25/2012 HIV (human immunodeficiency virus infection) ([facility] V24, [facility] V28) 10/25/2012 Overview (05/26/2024): longstanding untreated as of 01/13/18 Other emphysema ([facility] V24, [facility] V28) 10/25 Overview (05/26/2024): Pneumonia x 2 hospitalized Immunizations Immunization Administration Dates Next Due Hep A, Unspecified [...] PLUG/STOP-CUFFLESS TRACH TUBE OTHER SURGICAL HISTORY PROCEDURE: ID EGD PERCUTANEOUS PLACEMENT GASTROSTOMY TUBE CATARACT EXTRACTION PROCEDURE: HISTORICAL CATARACT REMOVAL; COMMENT: bilateral OTHER SURGICAL HISTORY 2015 PROCEDURE: ---- OTHER ----; COMMENT: bronchoscopy Medical History Medical History Date Comments HIV (human immunodeficiency virus infection) ([facility] V24, [facility] V28) 10/25/2012 DX:HIV (human im munodeficiency virus infection) (HCC) COPD (chronic obstructive pu lmonary disease) ([facility] V24, [facility] V28) 10/25/2012 DX:COPD (chronic o bstructive pulmonary disease) (HCC) Chronic hepatitis C ([facility] V24, [facility] V28) 10/25/2012 DX:Chronic hepatitis C (HCC) Historical Medical DX 11/08/2012 DX:Family history of sickle cell anemia Family history of colon cancer 11/08/2012 D X:Family history of colon cancer Thalassemia minor 12/09/2012 DX:Thalassemia minor History of cocaine abuse ([facility] V[facility], [facility] V28) DX:History of cocaine abuse (HCC); COMMENT: u tox pos 01/18/14 at [facility] Polysubstance abuse ([facility] V24, [facility] V28) DX:Polysubstance abuse (HCC) ; COMMENT: u tox pos 01/18/14 at [facility] Pulmonary nodules 06/16/2018 DX:Pulmonary n odules Non-healing [...] Date Smoking Tobacco: Every Day Cigarettes 0.3 50.8 Started: 08/09/1974 Smokeless Tobacco: Never Alcohol Use [...] of 2 - Risk 2-dose series) 12/09/1977 RSV Immunization Adult Patients (1 - Risk 50-74 years 1-dose series) 12/09/2009 Hepatitis B Vaccines (2 of 3 - Risk 3-dose series) 11/23/2012 10/26/2012 Hepatitis A Vaccines (2 of 2 - Risk 2-dose series) 04/19/2013 10/17/2012 Abdominal Aortic Aneurysm (AAA) Screen 07/17/2022 Medicare [...] Vaccine: 50+ Years (3 of 3 - PCV20 or PCV21) 09/10/2026 09/10/2021, 12/08/2012 Cholesterol [...] BMP Blood Test Abstracted us Historical Provider HEALTH MAINTENANCE Final Result * Lipid panel (09/14/2023) LDL/HDL Ratio 2 0 - 4 Triglycerides 66 0 - 150 mg/dL Cholesterol 113 0 - 200 mg/dL HDL 57 >=40 mg/dL LDL Cholesterol 43 0 - 100 mg/dL Blood Venous blood specimen / Unknown Historical Provider LAB BLOOD ORDERABLES Nicky l Result * Depression Screening (12/21/2022) Depression Screening Abstracted Historical Provider HEALTH MAINTENANCE Final Result * Hepatitis [...] Documents on File Type Date Recorded Patient Assembly Line Driver Expl anation Health Care Decision (hx) 11/13/2015 [...] (hx) 11/03/2015 AD BAUGH DIRECTIVE Care Teams Marine Oiler Relationship Specialty Start Date End Date Loreta Bhagat MD [address] [place] [address] PCP - General Internal Medicine 09/01/21
--- OUTSIDE RECORDS SUMMARY | 2025-06-07 12:18 | XMS_ITS | Encounter Summary ---
Author Organization [facility] Address [address] [place] [address] Care Team Providers Care Physician Office Clin Asst Name Role Phone Stephan Mejia MD Unavailable Unavailable Loreta Bhagat MD Primary Care Provider [phone] Cyndy Jama NP Unavailable Jose Delgado MD Unavailable [phone] Encounter Details Date Type Department Care Team Description 08/14/2022 Dry Cleaning Supervisor Report Medical Records [address] [place] [address] Jorge Brooks MD Social History Tobacco Use [...] on filedocumented in this encounter Care Teams Physician Office Clin Asst Relationship Specialty Start Date End Date Loreta Bhagat MD [address] [place] [address] PCP - General Internal Medicine 09/01/21 Stephan Mejia MD Director Compensation Cardiovascular Disease 07/30/21 4 Cyndy Jama NP [address] [place] [address] Nurse Practitioner Cardiology 07/23/22 Jose Delgado MD [address] [place] [address] [place] [address] Director Compensation Cardiovascular Disease 04/24/24 documented as of this encounter
--- OUTSIDE RECORDS SUMMARY | 2025-06-07 12:18 | XMS_ITS | Encounter Summary ---
Author Organization [facility] [employer] [facility] Address [address] [place] [address] Care Team Providers Care Bmw Sales Consultant Name Role Phone Stephan Mejia MD Unavailable Unavailable Loreta Bhagat MD Primary Care Provider [phone] Cyndy Jama NP Unavailable Jose Delgado MD Unavailable [phone] Encounter Details Date Type Department Care Team Description 10/21/2023 Hospital Medical Records [address] [place] [address] Devan Allen MD Social History Tobacco Use [...] on filedocumented in this encounter Care Teams Bmw Sales Consultant Relationship Specialty Start Date End Date Loreta Bhagat MD [address] [place] [address] [id number] PCP - General Internal Medicine 09/01/21 Stephan Mejia MD Doctor Of Naturopathic Medicine Cardiovascular Disease 07/30/21 4 Cyndy Jama NP [address] [place] [address] Nurse Practitioner Cardiology 07/23/22 Jose Delgado MD [address] [place] [address] [place] [address] Doctor Of Naturopathic Medicine Cardiovascular Disease 04/24/24 documented as of this encounter
--- OUTSIDE RECORDS SUMMARY | 2025-06-07 12:18 | XMS_ITS | Encounter Summary ---
Author Organization [facility] Address [address] [place] [address] Care Team Providers Care Computer Architect Name Role Phone Siddharth Gardiner MD Primary Care Provider Unav Maryjo Putnam DO Primary Care Pro vider Unavailable Marisol Valencia PA-C Primary Care Provider U Stephan Muñoz MD Unavailable Unavailable Loreta Bhagat MD Primary Care Provider [phone] Cyndy Jama NP Unavailable [phone] Jose Delgado MD Unavailable Encounter Details Date Type Department Care Team Description 10/26/2012 Release of Information Medical Records [address] [place] [address] Abstract, Provider Social History Tobacco Use Types [...] filedocumented in this encounter Care Teams Computer Architect Relationship Specialty Start Date End Date Siddharth Gardiner MD PCP - General Internal Medicine 10/14/12 3 Maryjo Reina DO PCP - General Internal Medicine 07/05/13 07/23/21 Marisol Valencia PA-C PCP - General Internal Medicine 07/24/21 08/31/21 Loreta Bhagat MD [address] [place] [address] PCP - General Internal Medicine 09/01/21 Stephan Mejia MD Records Coordinator Cardiovascular Disease 07/30/21 4 Cyndy Jama NP [address] [place] [address] Nurse Practitioner Cardiology 07/23/22 Jose Delgado MD [address] [place] [address] [address] [place] [address] Records Coordinator Cardiovascular Disease 04/24/24 documented as of this encounter
--- OUTSIDE RECORDS SUMMARY | 2025-06-07 12:18 | XMS_ITS | Encounter Summary ---
Author Organization [employer] [facility] Address [address] [place] [address] Care Team Providers Care Nailer Machine Name Role Phone Maryjo Reina DO Primary Care Pro vider Unavailable Marisol Valencia PA-C Primary Care Provider U Stephan Muñoz MD Unavailable Unavailable Loreta Bhagat MD Primary Care Provider [phone] Cyndy Jama NP Unavailable [phone] Jose Delgado MD Unavailable [phone] Encounter Details Date Type Department Care Team Description 12/13/2014 Executive Chairman Of The Board Report Medical Records [address] [place] [address] Alexx Guy MD Social History Tobacco Use [...] on filedocumented in this encounter Care Teams Nailer Machine Relationship Specialty Start Date End Date Maryjo Reina DO PCP - General Internal Medicine 11/27/13 12/15/21 Marisol Valencia PA-C PCP - General Internal Medicine 07/24/21 08/31/21 Loreta Bhagat MD [address] [place] [address] PCP - General Internal Medicine 09/01/21 Stephan Mejia MD Non Destructive Evaluation Manager Cardiovascular Disease 07/30/21 4 Cyndy Jama NP [address] [place] [address] Nurse Practitioner Cardiology 07/23/22 Jose Delgado MD [address] [place] [address] [address] [place] [address] Non Destructive Evaluation Manager Cardiovascular Disease 04/24/24 documented as of this encounter
--- OUTSIDE RECORDS SUMMARY | 2025-06-07 12:18 | XMS_ITS | Encounter Summary ---
Author Organization [employer] [facility] Address [address] [place] [address] Care Team Providers Care Dry Boss Name Role Phone Maryjo Reina DO Primary Care Pro vider Unavailable Marisol Valencia PA-C Primary Care Provider U Stephan Muñoz MD Unavailable Unavailable Loreta Bhagat MD Primary Care Provider [phone] Cyndy Jama NP Unavailable [phone] Jose Delgado MD Unavailable [phone] Encounter Details Date Type Department Care Team Description 11/07/2015 Hospital Medical Records [address] [place] [address] Hilario Mcelroy MD Social History Tobacco Use [...] on filedocumented in this encounter Care Teams Dry Boss Relationship Specialty Start Date End Date Maryjo Reina DO PCP - General Internal Medicine 07/05/13 07/23/21 Marisol Valencia PA-C PCP - General Internal Medicine 07/24/21 08/31/21 Loreta Bahgat MD [address] [place] [address] PCP - General Internal Medicine 09/01/21 Stephan Mejia MD Branch Account Manager Cardiovascular Disease 07/30/21 4 Cyndy Jama NP [address] [place] [address] Nurse Practitioner Cardiology 07/23/22 Jose Delgado MD [address] [place] [address] [address] [place] [address] Branch Account Manager Cardiovascular Disease 04/24/24 documented as of this encounter
--- OUTSIDE RECORDS SUMMARY | 2025-06-07 12:19 | XMS_ITS | Encounter Summary ---
Author Organization [facility] Address [address] [place] [address] Care Team Providers Care Automatic I Threading Machine Feeder Name Role Phone Maryjo Reina DO Primary Care Pro vider Unavailable Marisol Valencia PA-C Primary Care Provider U Stephan Muñoz MD Unavailable Unavailable Loreta Bhagat MD Primary Care Provider [phone] Cyndy Jama NP Unavailable [phone] Jose Delgado MD Unavailable [phone] Encounter Details Date Type Department Care Team Description 12/30/2015 Buoy Tender Report Medical Records [address] [place] [address] Jorge Brooks MD Social History Tobacco Use [...] on filedocumented in this encounter Care Teams Automatic I Threading Machine Feeder Relationship Specialty Start Date End Date [place] Colasacco, Maryjo, DO PCP - General Internal Medicine 07/05/13 07/23/21 Marisol Valencia PA-C PCP - General Internal Medicine 07/24/21 08/31/21 Loreta Bhagat MD [address] [place] [address] PCP - General Internal Medicine 09/01/21 Stephan Mejia MD Hospitality Intern Cardiovascular Disease 07/30/21 4 Cyndy Jama NP [address] [place] [address] Nurse Practitioner Cardiology 07/23/22 Jose Delgado MD [address] [place] [address] [address] [place] [address] Hospitality Intern Cardiovascular Disease 04/24/24 documented as of this encounter
--- OUTSIDE RECORDS SUMMARY | 2025-06-07 12:19 | XMS_ITS | Encounter Summary ---
Author Organization [employer] [facility] Address [address] [place] [address] Care Team Providers Care Adjunct Faculty For Medical Terminology Name Role Phone Stephan Mejia MD Unavailable Unavailable Loreta Bhagat MD Primary Care Provider [phone] Cyndy Jama NP Unavailable [phone] Jose Delgado MD Unavailable [phone] Encounter Details Date Type Department Care Team Description 04/30/2023 Telephone Adult Medicine [address] [address] Jewel Diaz PA-C [address] [place] [address] [phone] Social History Tobacco Use Types Packs/Day Years [...] faxed to Dr. Brooks office at Fax# [phone]. * Telephone Encounter - Jewel Diaz PA-C - 04/30/2023 5:40 PM EDT Can we request most recent office notes from [place] [facility], Dr. Brooks. documented in this encounter Plan of Treatment Not on file documented as of this encounter Visit Diagnoses Not on filedocumented in this encounter Care Teams Adjunct Faculty For Medical Terminology Relationship Specialty Start Date End Date Loreta Bhagat MD [address] [place] [address] PCP - General Internal Medicine 09/01/21 Stephan Mejia MD Industrial Insulator Cardiovascular Disease 07/30/21 4 Cyndy Jama NP [address] [place] [address] Nurse Practitioner Cardiology 07/23/22 Jose Delgado MD [address] [place] [address] [address] [place] [address] Industrial Insulator Cardiovascular Disease 04/24/24 documented as of this encounter
--- OUTSIDE RECORDS SUMMARY | 2025-06-07 12:19 | XMS_ITS | Encounter Summary ---
Author Organization [facility] Address [address] [place] [address] Care Team Providers Care Ceramic Research Engineer Name Role Phone Stephan Mejia MD Unavailable Unavailable Loreta Bhagat MD Primary Care Provider [phone] Cyndy Jama NP Unavailable [phone] Jose Delgado MD Unavailable [phone] Encounter Details Date Type Department Care Team Description 03/22/2023 Orders Only Medical Records [address] [place] [address] Loreta Bhagat MD [address] [place] [address] Social History Tobacco Use Types Packs/Day Years [...] Name Priority Date/Time Associated Diagnosis Comments OUTSIDE CARDIAC CATH Routine 01/25/2023 documented in this encounter Results * OUTSIDE CARDIAC CATH (01/25/2023) Loreta Bhagat MD CARDIOLOGY documented in this encounter Visit Diagnoses Not on filedocumented in this encounter Care Teams Ceramic Research Engineer Relationship Specialty Start Date End Date Loreta Bhagat MD [address] [place] [address] PCP - General Internal Medicine 09/01/21 Stephan Mejia MD Java Grails Developer Cardiovascular Disease 07/30/21 4 Cyndy Jama NP 4 [place] [address] Nurse Practitioner Cardiology 07/23/22 Jose Delgado MD [address] [place] [address] [address] [place] [address] Java Grails Developer Cardiovascular Disease 04/24/24 documented as of this encounter
--- OUTSIDE RECORDS SUMMARY | 2025-06-07 12:19 | XMS_ITS | Encounter Summary ---
Author Organization [facility] Address [address] [place] [address] Care Team Providers Care Computer Discovery Teacher Name Role Phone Stephan Mejia MD Unavailable Unavailable Loreta Bhagat MD Primary Care Provider [phone] Cyndy Jama NP Unavailable [phone] Jose Delgado MD Unavailable [phone] Reason for Visit * Reason Onset Date Comments Medication 10/24/2021 Encounter Details Date Type Department Care Team Description 10/24/2021 Refill Gastroenterology - [place] [address] [facility] [address] [place] [address] Jose Hammond PA-C Medication Social History Tobacco Use Types Packs/Day [...] filedocumented in this encounter Care Teams Computer Discovery Teacher Relationship Specialty Start Date End Date Loreta Bhagat MD [address] [place] [address] PCP - General Internal Medicine 09/01/21 Stephan Mejia MD Rocket Motor Tester Cardiovascular Disease 07/30/21 4 Cyndy Jama NP [address] [place] [address] Nurse Practitioner Cardiology 07/23/22 Jose Delgado MD [address] [place] [address] [place] [address] Rocket Motor Tester Cardiovascular Disease 04/24/24 documented as of this encounter
--- OUTSIDE RECORDS SUMMARY | 2025-06-07 12:19 | XMS_ITS | Encounter Summary ---
Author Organization [facility] Address [address] [place] [address] Care Team Providers Care Oven Heater Helper Name Role Phone Stephan Mejia MD Unavailable Unavailable Loreta Bhagat MD Primary Care Provider [phone] Cyndy Jama NP Unavailable [phone] Jose Delgado MD Unavailable [phone] Encounter Details Date Type Department Care Team Description 09/10/2021 SCAN Medical Records [address] [place] [address] Abstract, Provider Social History Tobacco Use Types [...] Date/Time Associated Diagnosis Comments OUTSIDE LAB Routine 09/10/2021 documented in this encounter Results * OUTSIDE LAB (09/10/2021) Provider Abstract LAB documented in this encounter Visit Diagnoses Not on filedocumented in this encounter Care Teams Oven Heater Helper Relationship Specialty Start Date End Date Loreta Bhagat MD [address] [place] [address] PCP - General Internal Medicine 09/01/21 Stephan Mejia MD Assembler Bonding Cardiovascular Disease 07/30/21 4 Cyndy Jama NP [address] [place] [address] Nurse Practitioner Cardiology 07/23/22 Jose Delgado MD [address] [place] [address] [address] [place] [address] Assembler Bonding Cardiovascular Disease 04/24/24 documented as of this encounter
--- OUTSIDE RECORDS SUMMARY | 2025-06-07 12:19 | XMS_ITS | Encounter Summary ---
Author Organization [employer] [facility] Address [address] [place] [address] Care Team Providers Care Legal Administrative Assistant Name Role Phone Stephan Mejia MD Unavailable Unavailable Loreta Bhagat MD Primary Care Provider [phone] Cyndy Jama NP Unavailable [phone] Jose Delgado MD Unavailable [phone] Reason for Visit * Reason Onset Date Comments Error 03/11/2023 Encounter Details Date Type Department Care Team Description 03/11/2023 Refill Adult Medicine [address] [phone] Loreta Bhagat MD [address] [place] [address] [phone] Error Social History Tobacco Use Types Packs/Day [...] on filedocumented in this encounter Care Teams Legal Administrative Assistant Relationship Specialty Start Date End Date Loreta Bhagat MD [address] [place] [address] PCP - General Internal Medicine 09/01/21 Stephan Mejia MD Ski Production Supervisor Cardiovascular Disease 07/30/21 4 Cyndy Jama NP [address] [place] [address] Nurse Practitioner Cardiology 07/23/22 Jose Delgado MD [address] [place] [address] [address] [place] [address] Ski Production Supervisor Cardiovascular Disease 04/24/24 documented as of this encounter
--- OUTSIDE RECORDS SUMMARY | 2025-06-07 12:19 | XMS_ITS | Encounter Summary ---
Author Organization [facility] Address [address] [place] [address] Care Team Providers Care Casting Machine Operator Name Role Phone Stephan Mejia MD Unavailable Unavailable Loreta Bhagat MD Primary Care Provider [phone] Cyndy Jama NP Unavailable [phone] Jose Delgado MD Unavailable [phone] Encounter Details Date Type Department Care Team Description 04/05/2024 Home Health Certification Medical Records [address] [place] [id number] [place] [address] Nurse Association, [address] [address] Social History Tobacco Use Types Packs/Day Years [...] on filedocumented in this encounter Care Teams Casting Machine Operator Relationship Specialty Start Date End Date Loreta Bhagat MD [address] [place] [address] PCP - General Internal Medicine 09/01/21 Stephan Mejia MD Valet Parker Cardiovascular Disease 07/30/21 4 Cyndy Jama NP [address] [place] [address] Nurse Practitioner Cardiology 07/23/22 Jose Delgado MD [address] [place] [address] [place] [address] Valet Parker Cardiovascular Disease 04/24/24 documented as of this encounter
--- OUTSIDE RECORDS SUMMARY | 2025-06-07 12:19 | XMS_ITS | Clinical Summary ---
Author Organization [facility] Address [address] [place] [address] Care Team Providers Care Learning And Development Associate Name Role Phone Loreta Bhagat MD Primary Care Provider [phone] Cyndy Jama NP Unavailable Jose Delgado MD Unavailable [phone] Allergies No known active allergies Medications Medication Sig Dispensed Refills Start Date End Date Status Bictegravir-Emtricitab- Tenofov (BIKTARVY) 50-200-25 MG TabIndications:HIV (human immunodeficiency virus infection) (HCC) Take 1 tablet by mouth daily. 30 Tab 3 01/19/2019 Active Tiotropium [place] Monohydrate (SPIRIVA HANDIHALER IN) Inhale 18 mcg [...] Cough. 0 01/21/2022 Active Epoetin Olivier-epbx (Retacrit) 01085 UNIT/ML Solution Inject 20,000 Units into the skin once a week. 0 01/10/2024 Active lamotrigine (LaMICtal) 25 MG tablet Take 1 Tablet by mouth 2 times daily. 0 Active Tiotropium [place] Monohydrate (Spiriva Respimat) 2.5 MCG/ACT Aero Soln [...] the medical therapy that was instituted by [facility] heart failure clinic has not been [...] (Moderna) 08/06/2021,01/10/2021, 021 COVID-19 (Pfizer) 2021 Hepatitis W-Uiddh-Uhtzwhpd + 10/26/2012 Bkiziseuf-E-Ccjxz-Positive + 10/17/2012 Influenza (>6 Months) Split Preservative [...] 94 04/24/2024 1:35 PM EDT Temperature 36.4 C (97.5 F) 04/06/2024 10:17 AM EDT Respiratory Rate 14 09/20/2023 2:49 PM EST [...] 12/13/2023 09/14/2023, 04/24/2022, 12/21/2018, Additional history exists DIABETES: ANNUAL URINE PROTE IN TEST (MICROALBUMIN) 04/30/2024 04/30/2023, 04/03/2015 (Exception), 10/25/2012 COLON CANCER SCREENING 07/18/2024 4 (External Completion), 07/18/2014 DEPRESSION SCREENING/FOLLOWUP 08/09/2024 12/21/2022 DIABETES/HEART DISEASE: ISAK GONZALEZ CHOLESTEROL (LDL) 09/14/2024 09/14/2023, 10/10/2019, 11/23/2018, Additional history exists TOBACCO CHECK/ADVISE 12/21/2024 12/21/2022, 12/21/2022, 12/12/2018, Additional history exists Covid-19 Vaccine (5 - 2022-2 4 season) 2025 2021, 08/06/2021, 01/10/2021, Additional history exists INFLUENZA (#1) 2025 08/06/2021, 11/2014, 07/04/2014 PNEUMOCOCCAL VACCINE (3 - PP SV23 or PCV20) 09/10/2026 09/10/2021, 12/08/2012 DTAP/TDAP/TD (3 - Td or Tdap) 10/13/2032, 10/13/2022, 12/08/2012 HEPATITIS C SCREENING Completed 08/15/2021, 013 SHINGLES VACCINE Completed 05/20/2022, 01/21/2022 Care Teams Learning And Development Associate Relationship Specialty Start Date End Date Loreta Bhagat MD [address] [place] [address] PCP - General Internal Medicine 09/01/21 Cyndy Jama NP [address] [place] [address] Nurse Practitioner Cardiology 07/23/22 Jose Delgado MD [address] [place] [address] [address] [place] [address] Vice Principal Cardiovascular Disease 04/24/24
--- OUTSIDE RECORDS SUMMARY | 2025-06-07 12:19 | XMS_ITS | Encounter Summary ---
Author Organization [facility] Address [address] [place] [address] Care Team Providers Care Music Educator Name Role Phone Stephan Mejia MD Unavailable Unavailable Loreta Bhagat MD Primary Care Provider [phone] Cyndy Jama NP Unavailable [phone] Jose Delgado MD Unavailable [phone] Encounter Details Date Type Department Care Team Description 04/30/2023 Executive Administrative Asst Report Medical Records [address] [place] [address] Jorge rBooks MD Social History Tobacco Use Types Packs/Day [...] filedocumented in this encounter Care Teams Music Educator Relationship Specialty Start Date End Date Loreta Bhagat MD [address] [place] [address] PCP - General Internal Medicine 09/01/21 Stephan Mejia MD Correspondent Cardiovascular Disease 07/30/21 4 Cyndy Jama NP [address] [place] [address] Nurse Practitioner Cardiology 07/23/22 Jose Delgado MD [address] [place] [address] [address] [place] [address] Correspondent Cardiovascular Disease 04/24/24 documented as of this encounter
--- OUTSIDE RECORDS SUMMARY | 2025-06-07 12:19 | XMS_ITS | Encounter Summary ---
Author Organization [facility] Address [address] [place] [address] Care Team Providers Care Sales Coach Name Role Phone Stephan Mejia MD Unavailable Unavailable Loreta Bhagat MD Primary Care Provider [phone] Cyndy Jama NP Unavailable [phone] Jose Delgado MD Unavailable [phone] Reason for Visit * Reason Onset Date Comments Faxed Refill 05/21/2023 Encounter Details Date Type Department Care Team Description 05/21/2023 Telephone Adult Medicine [address] [phone] Loreta Bhagat MD [address] [place] [address] [phone] Faxed Refill Social History Tobacco Use Types [...] N/A Patients current insurance carrier is: Payor: [facility] FFS / Plan: [facility] / Product Type: MEDICAID RISK documented in this encounter Plan of Treatment Not on file documented as of this encounter Visit Diagnoses Diagnosis Chronic obstructive pulmonary disease, unspecified COPD type (HCC) documented in this encounter Care Teams Sales Coach Relationship Specialty Start Date End Date Loreta Bhagat MD [address] [place] [address] PCP - General Internal Medicine 09/01/21 Stephan Mejia MD Operations Mgr Cardiovascular Disease 07/30/21 4 Cyndy Jama NP [address] [place] [address] Nurse Practitioner Cardiology 07/23/22 Jose Delgado MD [address] [place] [address] [place] [address] Operations Mgr Cardiovascular Disease 04/24/24 documented as of this encounter
--- OUTSIDE RECORDS SUMMARY | 2025-06-07 12:19 | XMS_ITS | Encounter Summary ---
Author Organization [facility] Address [address] [place] [address] Care Team Providers Care Sheetfed Press Operator Name Role Phone Stephan Mejia MD Unavailable Unavailable Loreta Bhagat MD Primary Care Provider [phone] Cyndy Jama NP Unavailable [phone] Jose Delgado MD Unavailable [phone] Reason for Visit * Reason Onset Date Comments APPOINTMENT 03/28/2024 Encounter Details Date Type Department Care Team Description 03/28/2024 Telephone Gastroenterology - [place] [address] [facility] [address] [place] [address] Eliazar Ochoa MD [address] [facility] [address] [place] [address] APPOINTMENT Social History Tobacco Use Types Packs/Day [...] today 03/28 due to being admitted in [facility]. Has new appt for 05/23 however he needs something sooner due to Complications with extensive hospitalization from September to March, with melena, under the setting of acute illness with EGD at [facility] showing peptic ulcer disease. Patient of severe renal compromise. documented in this encounter Plan of Treatment Not on file documented as of this encounter Visit Diagnoses Not on filedocumented in this encounter Care Teams Sheetfed Press Operator Relationship Specialty Start Date End Date Loreta Bhagat MD [address] [place] [address] PCP - General Internal Medicine 09/01/21 Stephan Mejia MD Office Rn Cardiovascular Disease 07/30/21 4 Cyndy Jama NP [address] [place] [address] Nurse Practitioner Cardiology 07/23/22 Jose Delgado MD [address] [place] [address] [address] [place] [address] Office Rn Cardiovascular Disease 04/24/24 documented as of this encounter
== END 2025-06-07 13:12 | disposition home or self-care (01) ==
PROVIDERS: PCP Internal Medicine; Visit Provider Nurse Practitioner
DX: B20 Human immunodeficiency virus [HIV] disease (principal); B19.20 Unspecified viral hepatitis C without hepatic coma; G47.33 Obstructive sleep apnea (adult) (pediatric); J44.1 Chronic obstructive pulmonary disease with (acute) exacerbation; F11.90 Opioid use, unspecified, uncomplicated; I50.20 Unspecified systolic (congestive) heart failure; B18.1 Chronic viral hepatitis B without delta-agent; N18.4 Chronic kidney disease, stage 4 (severe); J96.10 Chronic respiratory failure, unspecified whether with hypoxia or hypercapnia
CPT/HCPCS: 99203

== ENCOUNTER → 2025-06-07 10:10 | Outpatient (BNVA) | payer MEDICARE, SELFPAY | PROVIDERS: PCP Internal Medicine; Visit Provider Nurse Practitioner | DX: Z01.818 Encounter for other preprocedural examination (principal); Z12.11 Encounter for screening for malignant neoplasm of colon; B20 Human immunodeficiency virus [HIV] disease; B19.20 Unspecified viral hepatitis C without hepatic coma; G47.33 Obstructive sleep apnea (adult) (pediatric); J44.1 Chronic obstructive pulmonary disease with (acute) exacerbation; F11.90 Opioid use, unspecified, uncomplicated; I50.20 Unspecified systolic (congestive) heart failure; B18.1 Chronic viral hepatitis B without delta-agent; N18.4 Chronic kidney disease, stage 4 (severe); J96.10 Chronic respiratory failure, unspecified whether with hypoxia or hypercapnia; F17.210 Nicotine dependence, cigarettes, uncomplicated | CPT/HCPCS: 99202 ==